=== PATIENT | female | born 1985 | race Caucasian/White ===

== ENCOUNTER 2022-02-18 12:05 | Outpatient (CLI) | payer OTHER, SELFPAY | END 2022-02-18 12:06 | disposition home or self-care (01) | PROVIDERS: Visit Provider Advanced Practice Midwife | DX: Z34.82 Encounter for supervision of other normal pregnancy, second trimester (principal); R35.0 Frequency of micturition; Z3A.24 24 weeks gestation of pregnancy | CPT/HCPCS: 80053; 80061; 87086 ==

== ENCOUNTER 2022-03-16 11:31 | Outpatient (CLI) | payer OTHER, SELFPAY ==
[2022-03-16 10:54] LABS: Glucose 1 Hour Gest 147 mg/dl (70-180)
[2022-03-16 18:36] LABS: TSH With Reflex to FT4* 0.957 uIU/mL (0.270-4.200)
[2022-03-17 17:29] LABS: Rapid Plasma Reagin (RPR) Non Reactive (Non Reactive)
== END 2022-03-16 11:32 | disposition home or self-care (01) ==
PROVIDERS: Advanced Practice Midwife; Visit Provider Advanced Practice Midwife
DX: Z34.90 Encounter for supervision of normal pregnancy, unspecified, unspecified trimester (principal); E03.9 Hypothyroidism, unspecified
CPT/HCPCS: 82950; 84443; 86592; 86850

== ENCOUNTER 2022-03-26 11:38 | Outpatient (CLI) | payer OTHER, SELFPAY ==
[2022-03-26 08:12] LABS: Glucose Fasting Check 91 mg/dl (60-115)
[2022-03-26 12:44] LABS: Glucose GTT-Gestational 3 Hr 121 mg/dl (70-140)
[2022-03-26 12:44] LABS: Glucose 1 Hour Gest 221 mg/dl (70-180)
== END 2022-03-26 11:39 | disposition home or self-care (01) ==
PROVIDERS: Visit Provider Advanced Practice Midwife
DX: Z34.90 Encounter for supervision of normal pregnancy, unspecified, unspecified trimester (principal)
CPT/HCPCS: 82951; 82952

== ENCOUNTER 2022-05-12 14:22 | Outpatient (CLI) | payer OTHER, SELFPAY ==
[2022-05-13 14:09] LABS: Strep B DNA Probe NEGATIVE (Negative)
== END 2022-05-12 14:23 | disposition home or self-care (01) ==
LOC: NFLDREF 14:23
PROVIDERS: Visit Provider Advanced Practice Midwife
DX: Z34.93 Encounter for supervision of normal pregnancy, unspecified, third trimester (principal); Z3A.36 36 weeks gestation of pregnancy
CPT/HCPCS: 76816; 76819; 87081; 87653

== ENCOUNTER 2022-05-25 15:21 | Outpatient (CLI) | payer OTHER, SELFPAY | END 2022-05-25 15:22 | disposition home or self-care (01) | PROVIDERS: Visit Provider Advanced Practice Midwife | DX: E03.9 Hypothyroidism, unspecified (principal) | CPT/HCPCS: 84443 ==

== ENCOUNTER 2022-06-02 16:00 | Inpatient (IN) | payer OTHER, SELFPAY ==
--- OUTSIDE RECORDS SUMMARY | 2022-06-02 16:04 | XMS_ITS | Encounter Summary ---
:1985 Author Organization [facility] Address [address] [place] [id number] Care Team Providers Name Role Phone Rashida Pederson APRN RESEARCH DIETITIAN Primary Care Provider [phone] Rashida Pederson APRN RESEARCH DIETITIAN Unavailable [phone] Paty Lewis [facility] Unavailable Reason for Visit Reason Comments Consult Encounter Details Date Type Department Care Team Description 05/02/2020 [facility] Mihaela Burns C NM [facility] [address] [address] [address] [place] [address] [facility] (Work) Marlow [phone] [place], [place] (Fax) [phone] Social History Tobacco Use Types Packs/Day Years Used Date Smoking Tobacco: Former Cigarettes 0.5 10 Quit : 07/19/2012 Smokeless Tobacco: Never Alcohol Use Standard Drinks/Week Comments Yes 0 (1 standard drink = 0.6 oz pure alcoho l) 1-4d 1x/wk Sex Assigned at Date Recorded Not on file documented as of this encounter Progress Notes Mihaela Burns CNM - 05/02/2020 8:30 AM CDT Assessment: 1. Six day old infant gaining weight rapidly on pumped breastmilk with some formula supplementation:Over birthweight 2. Difficulty with establishing and sustaining latch at breast, but was ultimately able to hold latch for a small milk transfer today. Normal suck 3. Mother with normal milk supply Plan: 1. Demonstrated how to present breast in the sandwich hold, compressing breast vertically and in line with baby's mouth, for baby to get a larger mouthful of breast and a deeper latch. IThere is sometimes a little pain when the baby first begins sucking, but after the first few seconds there should be no pain--only a tugging feeling. Bring baby closely into the breast, with his chin snugged closelyinto the 2. To continue to feed baby on cue, 8-12 times each day. Encouraged Logan to attempt atleast half of feedings. Feed on one side until baby finishes swallowing. Once swallowing slows, use breast compression to encourage more swallowing, but once there is no more active swallowing, and baby is either sleeping, coming off the breast, or just nibbling, it is OK to use a finger to take baby off the breast and move to the other breast. Do the same on the other side. Offer both breasts at each feeding. It is more important to watch the baby than the clock! 3. Demonstrated good positioning for deep latch, with baby held close to body and baby's head/shoulders/hips in good alignment. Encouraged use of pillow to help bring baby close to breasts, and stepstool to elevate mother's knees above hips. 4. Consider using the sidelying position for a restful way to latch Yves to the breast. Demonstrated today. 5. Yves needs about 21-22 oz of milk each day to grow well. If he nurses at home as he did in the office today, about 5 times/day, he needs about 18 oz per day in supplementation (about 2-3 oz/feeding), using your breastmilk as your first choice and formula when the supply of pumped milk runs out. You can give this after feedings, or distributed throughout the day according to his feeding cues. Usedpaced feeding when giving bottles. Given video link to demonstration of paced feeding. 6. Continue pumping as you have been to have extra milk to give to Yves and to keep a good milk supply. 7. See pediatric provider as planned today, and in 5 days. Subjective: Logan is here today because of latch concerns. Was given nipple shield in hospital, whichleonae doesn't particularly like. On day of return home from hospital, baby was very restless and did not pass urine for about 16 hours, so Logan began pumping and supplementing with formula. Would like totry nursing without nursing without shield now: has tried latching without it, has been successful once or twice at home, but baby does not sustain latch well without it. Baby can latch with the shield, but Logan feels that he doesn't transfer much milk when using it. Is now exclusively pumping, but would like to be directly . Relevant History: Prolonged pushing phase Breast Surgery: none Goals: Previous Experience: first baby Infant's name: Yves Neumann's bday: [birth year] Gestational age: 41w1d 's weight: 7# 15.3 oz Mode of delivery: vaginal 's MD: BALA Guy, [facility]. Logan gives her permission for today's note jonathan forwarded to Caio. NGOZI signed and filed in Logan's chart as Yves has no local active pediatric chart. Discharge weight: 7# 10.6 oz Frequency and duration of feedings: every 2 hours, currently by bottle Swallows audible per mother: yes, on rare occasion baby will latch Numbers of feedings in 24 hours: 10 Number urines per day: constantly Number of stools per day and their color: 2-4, mustardy Supplementation: with 2-3 oz with pumped milk or formula at each feeding Pumping: every 2-3 hours during the day, every 3-4 at night, yielding about 2 oz/session Objective/Physical exam: Mother: Noticed breasts grew larger and areolas darkened during and she noticed primary engorgement when her milk came in on about day 3-4. Her nipples are short shafted, the areola is compressible, the breast is soft and full. Sore nipples: no EPDS: not completed Assessment of infant: 54.69% Weight for age percentile Age today: 6 days Today's weight: 8# 0 oz Amount of milk transferred from LEFT side: none--did not attempt Amount of milk transferred from RIGHT side: 0.7 oz Baby has full flexion of arms and legs, normal tone, behavior is alert and active, respirations are normal, skin is normal, hydration is normal, jaw is normal size and alignment, palate is normal, frenulum is normal, baby can lateralize tongue, has adequate tongue lift, and tongue can protrude past bottom gum line. Baby thrush: none Jaundice: none Feeding assessment: Baby had difficulty latching to the breast. Made multiple attempts in cross cradle and football holds, and baby was not able to sustain latch more than one or two sucks. Mother alsohad difficulty with positioning. After multiple attempts, applied nipple shield, but baby was also not able to latch with nipple shield in place. Moved to sidelying position, and after several more attempts, infant did latch and maintain suck to transfer milk without use of shield. Alignment: The baby was flex relaxed. Baby's head was aligned with its trunk. Baby did face mother. Baby was in football, cross cradle and sidelying positions today. Areolar Grasp: Baby was able to open mouth wide after multiple attempts. Baby's lips were not pursed. Baby's lips did flange outward. Tongue was visible just barely over bottom lip. Baby had complete seal. Areolar Compression: Baby made rhythmic motion. There were no clicking or smacking sounds. There wasno severe nipple discomfort. Nipples appeared rounded after feeding. Audible swallowing: Baby made quiet sounds of swallowing: There was an increase in frequency after milk ejection reflex. The milk ejection reflex is normal and milk supply is normal. BP 102/76 (Patient Site: Left Arm, Patient Position: Sitting, Cuff Size: Adult Large) Pulse 72 LMP 07/13/2019 (Exact Date) Yes Current Outpatient Medications: ??? acetaminophen (TYLENOL) 325 MG tablet, Take 1-2 tablets (325-650 mg total) by mouth every 4 (four) hours as needed., Disp: , Rfl: 0 ??? ascorbic acid, vitamin C, (ASCORBIC ACID) 250 mg Chew, , Disp: , Rfl: ??? cholecalciferol, vitamin D3, (VITAMIN D3) 50 mcg (2,000 unit) capsule, Take 1,000 Units by mouth2 (two) times a day., Disp: , Rfl: ??? docusate sodium (COLACE) 100 MG capsule, Take 1 capsule (100 mg total) by mouth daily., Disp: , Rfl: 0 ??? enoxaparin ANTICOAGULANT (LOVENOX) 40 mg/0.4 mL syringe, Inject 0.4 mL (40 mg total) under the skin daily., Disp: 45 Syringe, Rfl: 0 ??? ibuprofen (ADVIL,MOTRIN) 200 MG tablet, Take 4 tablets (800 mg total) by mouth every 8 (eight) hours., Disp: , Rfl: ??? prenat.vits,ant,uck-pxmz-mnpxg ( VITAMIN) Tab, Take 2 tablets by mouth daily., Disp: , Rfl: Past Medical History: Diagnosis Date ??? Anxiety and depression ??? Pulmonary embolism (H) 07/12/2012 bilateral; on OCPs, smoker, and inactive with sitting flores for dying grandfather ??? Seizure (H) 2003 on Wellbutrin seizure x 1 ??? Varicella childhood Past Surgical History: Procedure Laterality Date ??? APPENDECTOMY Family History Problem Relation Age of Onset ??? Alcohol abuse Mother ??? Hypertension Father ??? Alcohol abuse Father ??? Hyperlipidemia Father ??? Arthritis Maternal Grandmother ??? Cancer Maternal Grandfather pancreatic ??? No Medical Problems Maternal Aunt ??? No Medical Problems Maternal Uncle ??? Alcohol abuse Paternal Aunt ??? Alcohol abuse Paternal Uncle TT 60 min >50% counseling and education Mihaela Burns APRN, CNM, IBCLC documented in this encounter Miscellaneous Notes Patient Instructions - HE - Mihaela Burns CNM - 05/02/2020 8:30 AM CDT 1. Present breast in the sandwich hold, compressing breast vertically and in line with baby's mouth, for baby to get a larger mouthful of breast and a deeper latch. IThere is sometimes a little pain when the baby first begins sucking, but after the first few seconds there should be no pain--only a tugging feeling. Bring baby closely into the breast, with his chin snugged closely into the 2. To continue to nurse baby on cue, 8-12 times each day. Feed on one side until baby finishes swallowing. Once swallowing slows, use breast compression to encourage more swallowing, but once there is no more active swallowing, and baby is either sleeping, coming off the breast, or just nibbling, itis OK to use a finger to take baby off the breast and move to the other breast. Do the same on the other side. Offer both breasts at each feeding. It is more important to watch the baby than the clock! 3. Use good positioning for deep latch, with baby held close to body and baby's head/shoulders/hips in good alignment. Use a pillow to help bring baby close to breasts, and stepstool to elevate mother's knees above hips. 4. Consider using the sidelying position for a restful way to latch Yves to the breast. 5. Yves needs about 21-22 oz of milk each day to grow well. If he nurses at home as he did in the office today, about 5 times/day, he needs about 18 oz per day in supplementation (about 2 oz), using your breastmilk as your first choice and formula when the supply of pumped milk runs out. You can givethis after feedings, or distributed throughout the day according to his feeding cues. Used paced feeding when giving bottles. 6. Continue pumping as you have been to have extra milk to give to Yves and to keep a good milk supply. 7. See pediatric provider as planned today, and in 5 days. For a good video showing sidelying : Https://www.youtube.com/watch?v=KJV4lbhLcaG For an excellent video on paced bottle feeding: http://www.lowmilTeamDynamixupply.gkz-lxufu-mypmjbs/ Good resources: www.Diarize Https://www.HauteLook.Gratafy/blog/ The Baby Book: Dr. Chakraborty and Shruti Wilder The Womanly Art of by [facility] For help with using baby carriers: Https://babywearingtwincities.org/ There is a really wonderful video that shows you how to establish a good milk supply and avoid nipple pain, by doing some practice at the end of and then using your hands after the baby comes. It shows you ways to get the baby latched on well and comfortably after --this is the main thing that helps to get a good milk supply established and avoid nipple pain. You can find it here: www.MetaMed.Gratafy. Click on expecting a term baby. I think you'll find it really helpful! The wholesite is great, actually, but start with that. I also love the video on attachment, under ABC's. Two times that are often great for pumping are either first thing in the morning when your breasts are most full (because many women find they are particularly full at this time), or pumping from one breast if your baby has nursed primarily on the other at that feeding. If you pump in the morning, youcould do it either right after feeding, because baby may not completely empty you, or between feedings--if, say, there is a feeding at 6 am and then baby goes back to sleep until like 9, you could pumpat 7 or 8. I also really like the technique of doing one breast: if there are times when your baby nurses on just one breast per feeding, pump one while nursing on the other. This works great for obtaining a good amount of milk, because we get a better letdown to our baby than we do to the pump. Or nurse, and then do the breast that baby left off with, because that one will often still be somewhat full, especially in the morning. As far as time, pump until the flow of milk slows significantly or almost stops. For most women thisis around 15 minutes or so (both breasts together, or 30 min, if you are doing them separately). Youcan increase the amount of milk you obtain by doing some breast massage while you pump, which is easier if you are either pumping the breasts separately or using some kinds of hands-free pumping set up (either a special bra that you buy, or just using a sports bra that you cut some slits in!). Finishing up by doing some hand expression also helps to increase the amount of milk you get. There is an excellent video on this technique here, made by Dominique Leigh MD, outside solar sales consultant and specialist: https://med.[facility]/newborns/professional-education//maximbrigidin v-bvbr-rgxrflygad.html You don't need to worry a lot about making sure there is still enough left in the breasts for the next feeding, because our breasts are always making milk--there is always something there. If your baby doesn't get as much as they would like at the next feeding, they'll just nurse again sooner; they won't go hungry! It can be a time-saver, though, to pump right after the feeding, because then you kind of attach the pumping to the feeding. Also, if at any point you are trying to pump to increase milk supply, this style of pumping is helpful for that: It kind of helps your body think that you are having longer feeding sessions and it steps up production accordingly. documented in this encounter Plan of Treatment Not on filedocumented as of this encounter Visit Diagnoses Diagnosis Other disorders of documented in this encounter Additional Health Concerns Assessment Noted Time PHQ-9 Depression Total Score: 7 07/27/2018 7:15 AM [employer] WORKER documented as of this encounter Care Teams Executive Team Leader Relationship Specialty Start Date End Date Rashida Pederson, PCP - General Nurse Practitioner 10/08/14 [employer]EARCH DI[employer]ITIAN [address] [place] [address] Rashida Pederson, Assigned PCP 10/14/14 [employer] MA[employer]EARCH DIETITIAN [address] [place] [address] Paty Lewis Assigned OBGYN Provider 02/28/21 12/13/21 ABDOUL Mcgee [address] [place] [id number] documented as of this encounter
--- OUTSIDE RECORDS SUMMARY | 2022-06-02 16:04 | XMS_ITS | Encounter Summary ---
:1985 Author Organization [facility] Address [address] [place] [id number] Care Team Providers Name Role Phone Rashida Pederson APRN BOAT REPAIRER Primary Care Provider [phone] Rashida Pederson APRN BOAT REPAIRER Unavailable [phone] Reason for Visit Reason Comments Post Exam Contraception IUD placement Encounter Details Date Type Department Care Team Description 06/11/2020 Office Visit - [facility] Paty Lewis follow-up; [facility] Screening for cervical cancer; Diamond [address] Encounter for intrauterine device placem ent; Akil Diamond [place], [place] BMI 40.0-44.9 , adult ([phone] IUD (intrauterine device) in place; Diamond Ernst [phone] General coun seling and advice on contraceptive management Center (Work) [place], [place] [phone] (Fax) [phone] Social History Tobacco Use Types Packs/Day Years Used Date Smoking Tobacco: Former Cigarettes 0.3 10 Quit : 07/19/2012 Smokeless Tobacco: Never Alcohol Use Standard Drinks/Week Comments Yes 2.5 (1 standard drink = 0.6 oz pure alco hol) 1-4d 1x/wk Sex Assigned at Date Recorded Not on file documented as of this encounter Last Filed Vital Signs Vital Sign Reading Time Taken Comments Blood Pressure 124/70 06/11/2020 10:48 AM CDT Pulse 86 06/11/2020 10:48 AM CDT Temperature - - Respiratory Rate - - Oxygen Saturation - - Inhaled Oxygen Concentration - - Weight 113.9 kg (251 lb) 06/11/2020 10:48 AM CDT Height 163.8 cm (5' 4.5) 06/11/2020 10:48 AM CDT Body Mass Index 42.42 06/11/2020 10:48 AM CDT documented in this encounter Progress Notes Paty Lewis, ABDOUL - 06/11/2020 10:40 AM CDT [email or web address]@Patient ID: Logan Sandoval is a 34 y.o. female. Assessment: Normal Exam at ~6 Weeks . Lactating /Breast Feeding No Evidence of Mood Disorder, EPDS: 3 Mirena IUD Contraceptive Counseling and Insertion Cervical Cancer Screening HX PE BMI 42 Plan: 1. Pap smear done at today's visit. Due for annual Director Of Architecture exam in 1 year. 2. Desired contraception: IUD. Reviewed PAINS warning signs and plan for IUD check in 4-6 weeks. No unprotected intercourse x 7 days. See IUD insertion procedure note below. 3. Discussed resumption of exercise and setting a goal to return to pre- weight in the next6-12 months. 4. Resumption of intercourse reviewed with possible changes in libido and vaginal lubrication while nursing. 5. Nutrition and supplements reviewed. Advised continuation of a PNV or MV, Vitamin D3 [id number] IUs, and an omega 3 fatty acid supplement daily. 6. Adjustment to parenting, self care, and open communication with her support system discussed. Warning signs and symptoms related to mood disorders reviewed. 7. Discontinue Lovenox now. Total time spent with patient: 40 minutes, >50% counseling, education and coordination of care. Subjective: Logan Sandoval is a 34 y.o. female who presents for visit. She is ~6 weeks following a NSVB. I have fully reviewed the and intrapartum course. The delivery was at term. Her baby boy is named Yves and weighed 7 lbs 15 oz at . She reported increased anxiety and stress during her labor especially during the night due to labor RN always being in the patients room andnot leaving patient alone to rest. Patient reports that she did not feel like she could get into theright mindset for labor with the nurse in the room but that it did improve during the day when she had a different nurse. Patient was also disappointed about unplanned interventions stating that, I di d not really feel like I delivered him myself. I had an idea in my head about how it was going to goand then it went differently She has talked to family members who have had children before and theyhave provided support. Patient states that she thinks her feelings about the labor and experience will change as more time passes. Pt has been taking Lovenox due to hx PE. Glad to be able to stop Lovenox now. course has been stable. Patient has had some difficulty with breast feeding and has seen Mihaela Burns CNM for consultations three times and is working with a craniosacral therapist to help improve infant's latch. Patient feels that has improved but is concerned that her milk supply has decreased. Discussed with her about pumping after feedings to increase supply and monitoring number of wet diapers that has in a 24 hour period and weight gain. She reports that has more than six white diapers per day. Baby's course has been stable. Baby is now Lochia ceased at 2 weeks . Bowel function is normal. Bladder function is normal. She has not resumed regular exercise. She has resumed intercourse x 1 with condom. No unprotected intercourse. Desired contraception: IUD. [place] depression screening score: 3. Review of Systems General: Denies problem Eyes: Denies problem Ears/Nose/Throat: Denies problem Cardiovascular: Denies problem Respiratory: Denies problem Gastrointestinal: Denies problem Genitourinary: Denies problem Musculoskeletal: Denies problem Skin: Denies problem Neurologic: Denies problem Psychiatric: Denies Problem Endocrine: Denies problem Objective: BP 124/70 (Patient Site: Right Arm, Patient Position: Sitting, Cuff Size: Adult Regular) Pulse 86 Ht 5' 4.5 (1.638 m) Wt (!) 251 lb (113.9 kg) LMP 07/13/2019 (Exact Date) Yes BMI 42.42 kg/m?? Physical Exam: General Appearance: Alert, cooperative, no distress, appears stated age Skin: Skin color, texture, turgor normal, no rashes or lesions Throat: Lips, mucosa, and tongue normal; teeth and gums normal HEENT: grossly normal; otoscopic and opthalmic exam not performed. Neck: Supple, symmetrical, trachea midline, no adenopathy; thyroid: not enlarged, symmetric, no tenderness/mass/nodules Lungs: Clear to auscultation bilaterally, no adventitious breath sounds. Breasts: No breast masses, tenderness, asymmetry, or nipple discharge. Heart: Regular rate and rhythm, S1 and S2 normal, no murmur, rub, or gallop Abdomen: Soft, non-tender. BS+ x 4. Diastasis: 2 FB. Bruising present across abdomen c/w self injections. Pelvic:External genitalia normal without lesions or irritation. Vagina and cervix show no lesions, inflammation, discharge or tenderness. 2nd degree perineal laceration well approximated and well healed. No cystocele, No rectocele. Uterus fully involuted. No adnexal mass or tenderness. Extremities: Extremities normal without varicosities or edema EPDS: 3/never to #10. Last Pap: 2014. Results were: normal IUD Insertion Procedure Note Pre-operative Diagnosis: IUD insertion Post-operative Diagnosis: same Indications: contraception Procedure Details Logan Sandoval was given an opportunity to ask questions about all forms of control, meaning all prescriptions, non-prescription, and natural methods. All of her questions were answered to her satisfaction and she understood all of those answers. The following benefits, risk/side effects, warning signs, discontinue use option, regarding the control method were explained to her before she voluntarily decided to use this method of control. IUD insertion performed by CNM only. BENEFITS: The IUD is 97-99% effective if all the directions regarding its use are followed carfeully. It can be more effective if used with foam or condoms mid-cycle between periods. IUDs containing progestin may decrease menstrual flow and painful menstrual periods. . RISKS/ SIDE EFFECTS 1. Spotting, bleeding, hemorrhage or anemia 2. Cramping or pain 3. Partial or complete expulsion of device leading to , the ending in miscarriage 4. Lost IUD string or other string problems 5. Puncturing of the uterus, embedding, or cervical perforation 6. Increased risk of pelvic inflammatory disease WARNING SIGNS: The patient was advised to call the clinic if she has any of the following early warning signs: P - Period late (), abnormal spotting or bleeding A - Abdominal pain, pain with intercourse I - Infection exposure (such as gonorrhea), abnormal discharge N - Not feeling well, fever, chills S - String missing, shorter or longer ALTERNATIVES: She received written information about other methods of control and she chose the IUD. She understands that she should check for the IUD strings several times during the first few months after insertion and then after each monthly period or before intercourse. DECISION TO DISCONTINUE USE: She understands that she may have the IUD removed at any time. She knows not try to remove the device and that it should be removed only by a medical provider. If she does not desire to become , she has been told she may request to have another IUD inserted or choose to use another method of control. If she wishes to become , she understands most women not using control become within 12 months. Urine test was not done. GC/CT cultures declined. The risks (including infection, bleeding, pain, and uterine perforation) and benefits of the procedure were explained to the patient and written and verbal informed consent was obtained. Verbal pre-procedural time out was completed with patient. Bimanual exam performed to determine midline position of uterus. Sterile speculum was placed. Cervixwas cleansed with Betadine and sterile technique was maintained throughout the procedure. The tenaculum was applied to the anterior lip of the cervix and gentle traction applied to straighten and stabilize. Uterus sounded to 8 cm. IUD inserted without difficulty. Strings visible and trimmed to 3 cm. Patient tolerated procedure well. Bleeding was minimal. IUD Information: Mirena Lot # [id number], Expiration date Condition: Stable Complications: None Patient was seen with student, ANTOINE Loza who was present for learning. I personally assessed, examined and made clinical decisions reflected in the documentation. Paty Lewis APRN, CNM documented in this encounter Miscellaneous Notes Patient Instructions - HE - Paty Lewis CNM - 06/11/2020 10:40 AM CDT INFORMATION AND RESOURCES: Congratulations on the of your baby. We have gathered together some information on staying healthy in the time including information on exercise, nutrition and mental health. We have also listed some local and national resources for support and mental health support. If you have questions or concerns and need to speak with a parts professional immediately, please call the on-call parts professional at [phone]. If you have a non-emergent question or would like to schedule a follow up appointment, please call the clinic parts professional at [phone]. Thank you for sharing your experience with the [facility]. Congratulations on the of your baby! EXERCISE & NUTRITION: Getting and Staying Active: A Healthy You! -Why should I exercise? Exercise, being physically active, is very important for all women. Being active can help you: Lose or maintain weight Have more energy Sleep better Enjoy sex more Relieve stress and think better Lower the chance you will have heart disease, high blood pressure, and diabetes Strengthen your bones and muscles Have fewer hot flashes if you are older -How active do I have to be to get the bene?ts of exercise? Studies show that as little as 15 minutes of moderate exercise--like fast walking or dancing--3 times a week can improve the health of your heart. Ifyou want to get the best benefits from exercise, try to increase your physical activity to atleast 30 minutes, 5 times a week. If you have a serious health problem,be sure to talk with your health care provider before starting an exercise program. Https://Physcient/ Http://www.Q1 Labs.PayMate [place]/ @PelvicGuluzma1 @DinahPelvicFloorMuscles @The.Vagina.Rafaelperer Taking Care of your Health: Health Care Maintenance Screening recommendations In all the things women do, taking care of everything and everybody else, they sometimes forget to take care of themselves. This handout reviews the health screenings and vaccines that are recommended for women of all ages. Talk with yourhealth care provider about which tests and vaccines you need. The chart below lists the screening tests and vaccinations recommended for healthy women who do not have a high risk for most diseases. The recommendations in thischart are guidelines only. For some tests and vaccines, the chart says you should talk to your health care provider.This is because the best recommendations for you depend onyour personal health history. Your health care provider may suggest more frequent testing or additional tests ifyou havea higher chance of getting some diseases Planning Your Family: Developing a Reproductive Life Plan Planning ahead can help you avoid getting when you don???t want to be and also be in good health if and when you do decide to become . Many women have at least one in their lives, even if it was not planned. In fact, about half of all pregnancies are not planned. Getting when you did not plan it can be a problem, or it can turn into a happy event. Planningpregnancy leads to healthier pregnancies, healthier mothers, and healthier families. Although many women want to have a family, not everyone wants to have children. More and more women are childless by choice (also known as childfree). Whether to have children is a personal choice thatonly you can make. It???s okay not to want children! If you never want to get , it is important to make sure you always use very effective control, such as an intrauterine device, the control implant, female sterilization (having your tubes tied), or your partner having a vasectomy. Reliable resources: ? [place] [employer] (ACNM) http://www.parts professional.org/; look at the informational handouts at http://www.parts professional.org/Qosyj-Jwrt-Hunmt ?? Women's Health.gov: http://www.womenshealth.gov/a-z-topics/index.html FDA - Nutrition ?www.mypyramid.gov? Under For Consumers, click on and women. ? Vaccines : Centers for Disease Control and Prevention (CDC) http://www.cdc.gov/vaccines/ ? [facility] www.[facility].com ? When researching information on the web, question the validity of websites.? The domains .gov, .dondeEsta™ and.org tend to be more reliable information.? If there are a lot of advertisements, be cautious of the information provided. Stay away from blogs and chat rooms please! ? ? Nutrition and supplements: Daily multivitamin vitamin (with 400 - 1000 mcg folic acid).? Take with food as needed. ? 4-5 servings of dairy or other calcium rich foods (fish, leafy greens, soy)?per day - if not, take 500-1000 mg additional calcium (Tums, pills, chews). Take with dairy. ? Vitamin D3 4000 IU geltab daily. Vitamin D rich foods: Cod Liver Oil (1Tbsp), [place], Mackerel, Tuna, fortified milk and yogurt, Beef and liver, sardines, egg, fortified cereals, guamanian cheese.? Take supplements with fattiest meal.? ? 2-3 (4) oz servings of fish, seafood, nuts (walnuts & almonds), oils, avocado per week - if not,take Coden 3 Fatty acids: DHA & SAV 1377-2791 mg per day. ?Other names: cod liver oil, fish oil.Take with fattiest meal. ? ? & RESOURCES : Virtual Support: During this time of isolation, families need even more community! Here are some area organizations offering virtual support groups for : ??? Lat Cafe Support Group, Tuesdays at 10:30 am Run by LIZ Rubin of [employer] Go to [employer] Facebook page and click on events for link https://www.ACAL Energy.com/events/[email or web address]/ ??? [facility] Milk Hour, at 2:30 pm Run by LIZ Mosley Go to [facility] FB page and send message to get link https://www.[employer].PayMate [place]/AmpIdea/ ??? [facility]/[place] holding virtual meetings the first Wednesday of each month, 8-9 pm, and the Third Wednesday, 10 - 11 am. Go to [facility] and [facility] FB page; message to get link https://www.[employer]AL Energy.PayMate [place]/LLLofGoldAmanuel/?hc_location=[facility] ??? [facility] offers a Lounge every Wednesday 12pm - 1pm, run by Yessenia Fernandes [facility] Leader Sign up via link at ClassDojo/cbe- https://www.ClassDojo/cbe- ??? [facility] is offering virtual support groups every Wednesday, 10:30 am - 12 pm, run bynurse HILL Https://www.[employer]AL [employer].PayMate [place]/events/[email or web address]/ Classes: ??? [facility] is offering virtual and care classes: https://www.ClassDojo/education-workshops ??? BirthEd childbirth and education offering virtual classes https://www.HItviews.com/workshops : OUTPATIENT RESOURCES -Schedule an appointment with a [facility] ABDOUL who is also a Special Officer Automat by calling [phone]. Temitope Larkin IBROBERTO, CNM at [facility] on Wednesday, Mihaela Burns CNM at [facility] on Tuesdays and [facility] on . [facility] located at [place]???[facility] Call: [phone]. ??? Inpatient support ??? Outpatient appointments ??? Telephone consultation ??? Breast-feeding classes available through Room[employer] [facility] health improvement [facility]: Baby Caf?? and interested in ? Need answers to questions? Want to help moms? Already and want to meet other moms? Join us at the Baby Caf??! Baby Cafe is a free, drop-in service offering breast-feeding support for women, breast-feeding mothers and their families. Come share tips and socialize with other mothers. Babies and siblingsare welcome (no childcare available). Starting November 2017, Baby Caf?? will be at 4 locations. Please see below for the Baby Caf?? closest to you! [facility] [address] [place] [address] Wednesday: 10am-12pm [facility] [address] [place] [address] Wednesday 4-6pm [facility] [address] [place] [address] Wednesday 10am-12:30pm ong [employer] [address] [place] [address] Wednesdays: 4-6pm Hmong, Emirati, and Polish which is may be available at some sites. For more information, please contact: [email or web address] [email or web address]. or [phone] -[facility]: www.[facility] region[facility].PayMate [place] -Attend a baby weigh in at [facility]. consultants are available to answer questions [place]: Tuesdays 1:00 - 2:00 [facility]: Mondays 1:00 - 2:00 -Attend a New Mamma group or a Second Time Mama group at [facility]. -Enlightened Mama: www.ProcureSafeenedAdTotumme.com -Attend one of the New Mama groups at [facility] in [facility]. [facility] also offers one-on-one in home and in office consults. -[place]: www.acosta.org/ -Attend a Mayurihe League meeting. Multiple groups in several locations throughout the [facility]. The meetings are no-cost and always informative education session through [employer] Belem Oconnor Held at [facility] the of each month at 7pm - Information on medication use while : http://toxnet.nlm.nih.gov/newtoxnet/lactmed.htm Other Online Resources: ??? healtheast.org/baby sign up for free online weekly e-mail ??? healtheast.org/maternity ??? Breastfeedingmadesimple.com ??? Llli.org (Belem [place]ano Baileyeverett) ??? Normalfed.com ??? Womenshealth.gov/ ??? Le[employer].PayMate [place] ??? Nimblefish Technologies.PayMate [place] ??? https://TapFwd/abcs/ Click on Learn More About Attachment -New Parent Connection Drop-In: In collaboration with [facility], [employer] (ECFE), a program of [address], offers ongoing classes for new parents in their infants. The connection classes offer support and resources to parents during the exciting and challenging period of transition following the of her baby. Parents and babies ( to 6 months of age) mayjoin the group at any time. Baby's to 3 months meet Tuesdays, from 1230 to 1:30 PM Babies 3-6 months meet Tuesdays, from 4 to 5 PM -[facility] New Mama Group: www.ClassDojo/txhe-xrd-yjxd-group -Attend Work4s eZono New Mama. Groups located at three locations: [place], [place] and [place]. Sign up online. Additional Resources:? -[employer] (ACNM) http://www.parts professional.org/; look at the informational handouts at http://www.parts professional.org/Qmhvl-Afkw-Sqpkl www.mymidwife.org ? -Women's Health.gov: http://www.womenshealth.gov/a-z-topics/index.html ? -Range Manager and Family Education (ECFE): ECFE offers parents hands-on learning experiences that will nourish a lifetime of teachable moments. http://ecfe.info/ecfe-home/ (Before, during and after ) MOOD DISORDER RESOURCES : ??? Are you feeling sad or depressed? Do you feel more irritable or angry with those around you? Are you having difficulty bonding with your baby? Do you feel anxious or panicky? Are you having problems with eating or sleeping? Are you having upsetting thoughts that you can???t get out of your mind? Do you feel as if you are ???out of control?? or ???going crazy? Do you feel like you never should have become a mother? Are you worried that you might hurt your baby or yourself? Any of these symptoms, and many more, could indicate that you have a form of mood or anxiety disorder, such as depression. While many women experience some mild mood changes duringor after the of a child, 15 to 20% of women experience more significant symptoms of depressionor anxiety. Please know that with informed care you can prevent a worsening of these symptoms and can fully recover. There is no reason to continue to suffer. Women of every culture, age, income level and race can develop mood and anxiety disorders.Symptoms can appear any time during and the first 12 months after childbirth. There are effective and well-researched treatment options to help you recover. Although the term ??? dep ression?? is most often used, there are actually several forms of illness that women may experience. Resources: - and Support [place]: www.[facility].org Who We Are: We are a group of mental health & practitioners, service organizations, and mother volunteers who provides services to those struggling with a , loss, or mood disorder through the Helpline, professional training, our resource list and website. What We Do: We provide support, advocacy, awareness, and training about mental health in [place]. Community Resource List: This is a list of resources within our community. http://[facility].org/communityresourcelist PSYCHOTHERAPISTS/CONSULTANTS This is a list of licensed mental health professionals who have advanced clinical skills in the treatment of mood and anxiety disorders (PMADs). Http://[facility].org/mentalhealthproviderresourcelist INTEGRATIVE MEDICINE PRACTITIONERS: This is a list of licensed providers who practice Integrative Medicine: a form of treatment that combines alternative medicine with evidence based medicine in an effort to treat the ???whole person?? (the person, not just the disease). http://[facility].org/integrativemedicineproviders PSYCHIATRIC CARE This is a list of licensed Psychiatrists who have advanced clinical skills in the treatment and medication management for PMADs and lactating mothers. Http://[facility].org/psychiatryproviderresroucelist Click on the links below to find detailed profiles and contact information of providers who have been screened and approved as having advanced training in the area of PMADs. Please note: [facility] does not endorse a specific provider. The list is in alphabetical order by city. You can also search for providers by [facility] or [facility] using the search box. Please click on the Show box to the upper right to advance to the next page. Youmay also call our Helpline at [phone] if you would like for our Helpline volunteer to find a provider for you. - Depression Support Group: Weekly groups at no cost through [facility], Tuesdays, 1:30-3:00 p.m., at [facility], [address] [facility], [address]. [place], Wednesdays, 1:30-3:00 p.m., at [facility], [address] To register for the group or get more information, call [phone]. - Depression Support Group: Outpatient Intensive Treatment program for women with mood disorders [facility] Mother/Baby Program -[facility] Resource Guide Women???s Mental Health at [facility] This website provides a range of current information including discussion of new research findings in women???s mental health and how such investigations inform day-to-day clinical practice. Despite the growing number of studies being conducted in women???s health, the clinical implications of such work are frequently controversial, leaving patients with questions regarding the most appropriate path to follow. Providing these resources to patients and their doctors so that individual clinical decisions can be made in a thoughtful and collaborative fashion dovetails with the mission of our Center. https://womensmentalhealth.org/ If you???re having thoughts of harming yourself or your baby, it is vital to get support immediately. Call 911 or go to the nearest [facility] Immediate Emergency: 911 National Suicide Prevention Lifeline: Suicide Prevention Hotline: 1-728-OGFPJWR National Depression Hotline: 6-827-WIT-MOMS Support International (PSI) PPD Helpline: (not a 24-hour hotline) documented in this encounter Plan of Treatment Not on filedocumented as of this encounter Procedures Procedure Name Priority Date/Time Associated Comments Diagnosis GYNECOLOGIC CYTOLOGY Routine 06/11/2020 2:33 PM R esults for this CDT procedure are i n the results section. HPV HIGH RISK TYPES Routine 06/11/2020 2:33 PM Re sults for this DNA CERVICAL CDT procedure are i n the results section. documented in this encounter Results Gynecologic Cytology (PAP Smear) (06/11/2020 2:33 PM CDT) Component Value Ref Range Test Analysis Performed Pathologis t Method Time At Signature Case Report Gynecologic Cytology Report ? Case: [id number] ? Authorizing Provider: ??Paty Edmondson, ? Collected: ? 06/11/2020 1433 ? 0 2:53 PM ? ZIYAD,ABDOUL ? TRIAGE NURSE Ordering Location: ? [facility] ?? Received: ?06/11/2020 1433 ? [facility] ? First Screen: ? Davida Glass CT ? (ASCP) ? Specimen: ?SUREPATH PAP, SCREENING, Endocervical/cervical ? Interpretation Negative for squamous intraepithelial le deb or malignancy Negative for at ??2:53 PM squamous 0 2:53 PM intraepithelial TRIAGE NURSE lesion or malignancy. Result Flag Normal Normal 0 2:53 PM TRIAGE NURSE Specimen Satisfactory for Adequacy evaluation, 0 2:53 PM endocervical/tra TRIAGE NURSE nsformation zone component present Reflex Testing Yes regardless of result 0 2:53 PM TRIAGE NURSE High Risk? No 0 2:53 PM TRIAGE NURSE LMP/Menopause Date 0 2:53 PM TRIAGE NURSE Abnormal No Bleeding 0 2:53 PM TRIAGE NURSE Patient Status 0 2:53 PM TRIAGE NURSE None Control/Hormone 0 2:53 PM s TRIAGE NURSE Previous Normal 2015 0 2:53 PM TRIAGE NURSE Previous no Abnormal? 0 2:53 PM TRIAGE NURSE Cervical normal, parous Appearance 0 2:53 PM TRIAGE NURSE Specimen Anatomical Collection Method Collection Time Receive d Time (Source) Location / / Volume Laterality Specimen from CERVIX UTERI 06/11/2020 2:33 PM 06/12/20 20 8:28 genital system STRUCTURE / CDT AM CDT (specimen) Unknown Narrative This result has an attachment that is no t available. Paty Lewis [facility] HPV High Risk Types DNA Cervical (06/11/2020 2:33 PM CDT) Analysis Performed At Patho logist Time Signature HPV Source [facility] 06/12/2020 1:02 PM CDT HPV16 DNA Negative NEG 06/12/2020 1:02 PM CDT HPV18 DNA Negative NEG 06/12/2020 1:02 PM CDT Other HR HPV Negative NEG 06/12/2020 1:02 PM CDT FINAL SEE NOTES 06/12/2020 DIAGNOSIS 1:02 PM CDT Comment: This patient's sample is negative for HP V DNA. This test was developed and its performa nce characteristics determined by the [facility], [facility]. It has not been cleared or approved by the FDA. The laboratory is regulated under CLIA as qualified to perform high-comple xity testing. This test is used for clinical purposes. It should not be rega rded as investigational or for research. (Note) METHODOLOGY: ??The Shay gwendolyn 4800 syst em uses automated extraction, simultaneous amplification of HPV (L1 re gion) and beta-globin, followed by ??real time detection of flu orescent labeled HPV and beta globin using specific oligonucleotide pr obes . The test specifically identifies types HPV 16 DNA and HPV 18 D NA while concurrently detecting the rest of the high risk type s (31, 33, 35, 39, 45, 51, 52, 56, 58, 59, 66 or 68). COMMENTS: ??This test is not intended fo r use as a screening device for women under age 30 with normal cervi ant cytology. ??Results should be correlated with cytologic and histolo gic findings. Close clinical followup is recommended. Specimen Description Cervical Cells 06/12/2020 1:0 2 PM CDT Comment: Performed and/or entered by: [address] [id number] Specimen Anatomical Collection Method Collection Time Receive d Time (Source) Location / / Volume Laterality Specimen from 06/11/2020 2:33 PM 06/12/20 5:25 genital system CDT PM CDT (specimen) Paty Lewis CNM LAB - BLOOD ORDERABLES documented in this encounter Visit Diagnoses Diagnosis Routine follow-up Screening for cervical cancer Screening for malignant neoplasm of the cervix Encounter for intrauterine device placem ent Encounter for insertion of intrauterine contraceptive device BMI 40.0-44.9, adult (H) Body Mass Index 40.0-44.9, adult IUD (intrauterine device) in place Presence of intrauterine contraceptive d evice General counseling and advice on contrac eptive management Other general counseling and advice for contraceptive management documented in this encounter Additional Health Concerns Assessment Noted Time PHQ-9 Depression Total Score: 7 07/27/2018 7:15 AM TRIAGE NURSE documented as of this encounter Care Teams Billing Department Supervisor Relationship Specialty Start Date End Date Rashida Pederson APRN BOAT REPAIRER PCP - General Nurse Practitioner 10/08/14 [address] [place] [address] Rashida Pederson APRN BOAT REPAIRER Assigned PCP 10/14/14 07/26/21 [address] [place], [place] [id number] documented as of this encounter
--- OUTSIDE RECORDS SUMMARY | 2022-06-02 16:04 | XMS_ITS | Encounter Summary ---
:1985 Author Organization [place] Address [address] [place] [address] Care Team Providers Name Role Phone Rashida Pederson APRN MILK RECEIVER Primary Care Provider [phone] Rashida Pederson APRN MILK RECEIVER Unavailable [phone] Paty Lewis [facility] Unavailable [phone] Encounter Details Date Type Department Care Team Description 05/28/2020 [facility] Rashida Pederson [place] ZIYAD MILK RECEIVER [phone] [place] [address] (Wo rk) Social History Tobacco Use Types Packs/Day Years Used Date Smoking Tobacco: Former Cigarettes 0.5 10 Quit : 07/19/2012 Smokeless Tobacco: Never Alcohol Use Standard Drinks/Week Comments Yes 0 (1 standard drink = 0.6 oz pure alcoho l) 1-4d 1x/wk Sex Assigned at Date Recorded Not on file documented as of this encounter Plan of Treatment Not on filedocumented as of this encounter Visit Diagnoses Not on filedocumented in this encounter Additional Health Concerns Assessment Noted Time PHQ-9 Depression Total Score: 7 07/27/2018 7:15 AM SCREED PERSON documented as of this encounter Care Teams Sanitation Worker Cleaning Machinery Relationship Specialty Start Date End Date Rashida Pederson, PCP - General Nurse Practitioner 10/08/14 STRIKE OPERATIONS OFFICER MILK RECEIVER [address] [place] [address] Rashida Pederson, Assigned PCP 10/14/14 STRIKE OPERATIONS OFFICER MILK RECEIVER [address] [place] [address] Paty Lewis Assigned OBGYN Provider 02/28/21 12/13/21 ABDOUL [address]gee [address] [address] documented as of this encounter
--- OUTSIDE RECORDS SUMMARY | 2022-06-02 16:04 | XMS_ITS | Encounter Summary ---
:1985 [facility] Address [address] [place] [address] Home Phone Mobile Phone Email Address Email Address Preferred Language Estonian Marital Status Single Latter Day Affiliation Unknown Race White Ethnic Group Unknown Author Organization [place] Address [address] [place] [address] Care Team Providers Name Role Phone Rashida Pederson APRN SLOT ATTENDANT Primary Care Provider [phone] Rashida Pederson APRN SLOT ATTENDANT Unavailable [phone] Paty Lewis [facility] Unavailable [phone] Reason for Visit Reason Comments Consult Encounter Details Date Type Department Care Team Description 05/23/2020 Ambulatory - [facility] Mihaela Burns C NM Other disorders of ; [address] D R nipple pain [place] [address] [address] [facility] (Work) [place] [phone] [place], [place] (Fax) [phone] Social History Tobacco Use Types Packs/Day Years Used Date Smoking Tobacco: Former Cigarettes 0.5 10 Quit : 07/19/2012 Smokeless Tobacco: Never Alcohol Use Standard Drinks/Week Comments Yes 0 (1 standard drink = 0.6 oz pure alcoho l) 1-4d 1x/wk Sex Assigned at Date Recorded Not on file documented as of this encounter Progress Notes Mihaela Burns CNM - 05/23/2020 10:30 AM CDT Assessment: 1. Almost 4 week old on with supplementation, with excellent weight gain over last 2 weeks: 1.6 oz/day 3. Greatly improved ability to latch and suckle at breast this visit, and significantly improved milk transfer. Still has tendency to shallow latch, with incomplete tongue extension, recessed chin and high body tension in general 4. Ashley Assessment of Lingual Frenulum remains within normal limits: Score of 6/25, with > 13 indicating need for intervention 5. Mother now with normal milk supply Plan: 1. Given praise and encouragement for hard work and significant improvements! Reviewed that Yves needs about 25 oz of milk each day to grow well. If he nurses at home as he did in the office today, about 10 times/day, he now needs just about 10 oz per day in supplementation (or about an extra ounce with each feeding), using your breastmilk as your first choice and formula if the supply of pumped milk runs out. You can give this after feedings, or distributed throughout the day according to his feeding cues. 2. Discussed can base pumping on how Yves is eating at the breast: If he nurses well, then you can decrease your pumping accordingly. If he is not nursing well, then pump after that feeding. 3. Consider continuing with bodywork if Yves is tense and continuing to have difficulty with latch.Reassured that improvements in latch and ability to transfer milk can continue as baby grows and becomes more proficient with coordination and muscle use. Acknowledged continued difficulty of pumping/aparicio pplementing/nursing. Logan voices that she is feeling good about continuing as long as progress is being made. 4. Discussion of tongue tie: Reviewed Ashley tool in detail and explained findings. Explained Yves's result: 02/07. Explained that there is very little solid evidence regarding treatment of tongue tie, beyond that which shows that nipple pain can be relieved by frenotomy in cases of classic anterior tongue tie. Evidence is lacking on whether frenotomy or other treatments, such as assistance, bodywork or other therapies, or simply passage of time, are most helpful, and that there is also minimal to no evidence on issues like which type of release is best, and whether or not aftercare is important or helpful. Advised to consult with pediatric provider; today's note with findings will be sent to provider. 5. follow-up as needed. Subjective: Logan is here today for a third visit. She and baby Yves are being followed for latch concerns. In previous visits Yves has had significant difficulty latching to breast, with shallow latch, ineffective suck and low milk transfer. He has done best in the sidelying position, and a plan was made for supplementation with pumped milk and/or formula. Today Logan reports that she brought Yves to see a craniosacral therapist, and his lips are much more flexible. She has also increased her pumping, and feels that her milk supply has increased. She does still have painful latch, however, and has made an appointment with pediatric dentist to be evaluated for posterior tongue tie. She limits her direct nursing to about 3-4 times/day because of painful latch--feels that Yves continuesto latch shallowly. Relevant History: Prolonged pushing phase Breast Surgery: none Goals: exclusive direct Previous Experience: first baby Infant's name: Yves Infant's bday: [birth year] Gestational age: 41w1d 's weight: 7# 15.3 oz Mode of delivery: vaginal 's MD: BALA Guy, [facility]. Logan gives her permission for today's note jonathan forwarded to Mr. Kearney. NGOZI signed and filed in Logan's chart as Yves has no local active pediatric chart. Discharge weight: 7# 10.6 oz Last weight on this scale on 05/07/20: 8# 1.8 oz Frequency and duration of feedings: every 1 1/2 - 3 hours, both sides, Directly at breast 3-4 times/day Swallows audible per mother: yes Numbers of feedings in 24 hours: 10-12 Number urines per day: 8-10 Number of stools per day and their color: every 1-2 days Supplementation: after most feedings (about 9 times/day) with 2-3 oz with pumped milk; about one bottle/day or formula Pumpin-10 times daily, yielding about 4 oz/session, sometimes up to 6 oz. Objective/Physical exam: Mother: Noticed breasts grew larger and areolas darkened during and she noticed primary engorgement when her milk came in on about day 3-4. Her nipples are short shafted, the areola is compressible, the breast is soft and full. Sore nipples: yes, tender, but intact without cracking EPDS: not completed today Assessment of : 55.29% Weight for age percentile Age today:4 weeks tomorrow Today's weight: 9# 12 oz Amount of milk transferred from LEFT side: 0.8 oz Amount of milk transferred from RIGHT side: 0.8 oz Baby has full flexion of arms and legs, behavior is alert and active, respirations are normal, skin is normal, hydration is normal, jaw is normal size and alignment, palate is normal, frenulum is normal, baby can lateralize tongue, has adequate tongue lift, and tongue can protrude just slightly past bottom gum line. Tongue is held in somewhat bunched position and does not extend well, but there is norestrictive frenulum seen. Noted baby to have a significantly recessed chin and also notable body tension: Holds body in slightly arched position. Repeated Ashley Lingual Frenulum Protocol Assessment today: History Score 3/8 Anatomo-Functional Evaluation 0/12, indicating no interference of the frenulum with tongue movements Suck Evaluation 3/5 Total Score 6/25, indicating no interference of the lingual frenulum with tongue movements: Release of the frenulum is not indicated by this assessment Baby thrush: none Jaundice: none Feeding assessment: Baby was able to latch to the breast without difficulty today, using cradle hold. He did come on and off the breast frequently, but there was significant improvement in maintenance of latch over previous visits. Alignment: The baby was flex relaxed. Baby's head was aligned with its trunk. Baby did face mother. Baby was in cradle position today. Areolar Grasp: Baby was able to open mouth wide after several attempts. Baby's lips were not pursed.Baby's lips did flange outward. Tongue was not easily visible over bottom lip. Baby had complete seal. Areolar Compression: Baby made rhythmic motion. There were no clicking or smacking sounds. There wassome mild nipple discomfort (2-3/10). Nipples appeared rounded after feeding. Audible swallowing: Baby made quiet sounds of swallowing: There was an increase in frequency after milk ejection reflex. The milk ejection reflex is normal and milk supply is now normal. BP 112/68 (Patient Site: Right Arm, Patient Position: Sitting, Cuff Size: Adult Regular) Pulse 78 Resp 18 LMP 07/13/2019 (Exact Date) Current Outpatient Medications: ??? acetaminophen (TYLENOL) 325 [...] times a day., Disp: , Rfl: ??? enoxaparin ANTICOAGULANT (LOVENOX) 40 mg/0.4 mL syringe, Inject 0.4 mL (40 mg total) under the skin daily., Disp: 45 Syringe, Rfl: 0 ??? ibuprofen (ADVIL,MOTRIN) 200 MG tablet, Take 4 tablets (800 mg total) by mouth every 8 (eight) hours., Disp: , Rfl: ??? docusate sodium (COLACE) 100 MG capsule, Take 1 capsule (100 mg total) by mouth daily., Disp: , Rfl: 0 ??? prenat.vits,ant,rvc-oxow-fzauv ( VITAMIN) Tab, Take 2 tablets by [...] >50% counseling and education Mihaela Burns APRN, SAMUELM, IBCLC documented in this encounter Miscellaneous Notes Patient Instructions - HE - Mihaela Burns CNM - 05/23/2020 10:30 AM CDT Weight today before nursin# 12 oz Weight today after nursin# 13.6 oz 1. Yves needs about 25 oz of milk each day to grow well. If he nurses at home as he did in the office today, about 10 times/day, he needs about 10 oz per day in supplementation (or about an extra ounce with each feeding), using your breastmilk as your first choice and formula if the supply of pumped milk runs out. You can give this after feedings, or distributed throughout the day according to his feeding cues. 2. You can base your pumping on how Yves is eating at the breast: If he nurses well, then you can decrease your pumping accordingly. If he is not nursing well, then pump after that feeding. 3. Consider continuing with bodywork if Yves is tense and continuing to have difficulty with latch. 4. Discussion of tongue tie: Reviewed Ashley tool in detail and explained findings. Explained Yves's result: 02/07. Know that there is very little solid evidence regarding treatment of tongue tie, beyond that which shows that nipple pain can be relieved by frenotomy in cases of classic anterior tongue tie. Evidence is lacking on whether frenotomy or other treatments, such as assistance,bodywork or other therapies, or simply passage of time, are most helpful, and that there is also minimal to no evidence on issues like which type of release is best, and whether or not aftercare is important or helpful. Consult with your pediatric provider; today's note with findings will be sent to provider. 5. follow-up as needed. documented in this encounter Plan of Treatment Not on filedocumented as of this encounter Visit Diagnoses Diagnosis Other disorders of nipple pain Other and unspecified disorder of breast associated with childbirth, condition or complication documented in this encounter Additional Health Concerns Assessment Noted Time PHQ-9 Depression Total Score: 7 07/27/2018 7:15 AM FOLDER MACHINE documented as of this encounter Care Teams Human Relations Professor Relationship Specialty Start Date End Date Rashida Pederson, PCP - General Nurse Practitioner 2/23/15 TEST CELL TECHNICIAN SLOT ATTENDANT [address] [place] [address] Rashida Pederson, Assigned PCP 10/14/14 TEST CELL TECHNICIAN SLOT ATTENDANT [address] [place] [address] Paty Lewis Assigned OBGYN Provider 02/28/21 12/13/21 ABDOUL Mcgee [address] [address] documented as of this encounter
--- OUTSIDE RECORDS SUMMARY | 2022-06-02 16:04 | XMS_ITS | Encounter Summary ---
:1985 Author Organization [place] Address [address] [place] [address] Care Team Providers Name Role Phone Rashida Pederson APRN SURFACER OPERATOR Primary Care Provider [phone] Rashida Pederson APRN SURFACER OPERATOR Unavailable [phone] Reason for Visit Reason Comments Care Delivered 04/26/2020 Encounter Details Date Type Department Care Team Description 05/13/2020 Office Visit - [facility] [place] [address] [facility] [address] [facility] [address] [place] [phone] [place], [place] (Work) [address] Social History Tobacco Use Types Packs/Day [...] Sign Reading Time Taken Comments Blood Pressure 106/70 05/13/2020 10:58 AM CDT Pulse 102 05/13/2020 10:58 AM CDT Temperature - - Respiratory Rate - - Oxygen Saturation 96% 05/13/2020 10:58 AM CDT Inhaled Oxygen Concentration - - Weight 114.8 kg (253 lb) 05/13/2020 10:58 AM CDT Height 163.8 cm (5' 4.5) 05/13/2020 10:58 AM CDT Body Mass Index 42.76 05/13/2020 10:58 AM CDT documented in this encounter Progress Notes Temitope Larkin CNM - 05/13/2020 11:00 AM CDT Assessment: Logan Sandoval is a 34 y.o. female here for follow up at 2 weeks . Hx of pulmonary embolism- remains on daily Lovenox until 6 weeks PP Contraceptive counseling Due for cervical cancer screening Plan: 1. IUD consult done. Considering Kyleena or Mirena. Aware she should abstain from unprotected intercourse for 2 weeks prior to appointment. 2. Continue with daily Lovenox until 6 weeks . Encouraged to call on- call CNM with any signs or symptoms of a blood clot. 3. Continue with outpatient as necessary. 4. PP mood changes discussed in detail. Reviewed PMADs including anxiety, depression and OCD. Made aware with her history of anxiety she is at increased risk for a mood or anxiety disorder. Enc to contact CNM with concerns. Recommended [facility] Prasad group (as [employer] [place] employee it is free). 5. Follow-up at 6 weeks for routine visit or sooner as needed. Plan Mirena or Kyleena IUDinsert and pap with HPV at next visit. TT with patient 20 minutes with all of which in counseling or coordination of care. Temitope Larkin, ZIYAD, CNM, IBCLC Subjective: Logan Sandoval is a 34 y.o. female who presents for a follow up visit. She is 2 weeks following a spontaneous vaginal delivery. I have fully reviewed the and intrapartumcourse. The delivery was at 41w1d gestation. Outcome: spontaneous vaginal delivery. The amount and color of the lochia is appropriate for the duration of recovery. The patient feels well. Voiding without difficulty, lochia normal, tolerating normal diet, and passing flatus. Pain is well controlled with current medications. The baby is well and being fed by breast. She is receiving help from an Mihaela Oswood, IBCLC for a painful latch. They are having a craniosacral therapist come to their home today for additional support. The patient has no emotional concerns though admits things are hard right now as her is out of town for 1 week at a training. She does have family and friends scheduled to provide support whilehe is gone. depression screening score: 4, 0 to #10. Baby admits to a history of anxiety and depression. She has been treated with Lexapro in the past, but not for many years. She states sheis well aware of the but at this time she is coping well.symptoms Plans IUD for contraception. She has used the Mirena IUD in the past without complication. The following portions of the patient's history were reviewed and updated as appropriate: allergies,current medications and problem list Review of Systems General: Denies problem Eyes: Denies problem Ears/Nose/Throat: Denies problem Cardiovascular: Denies problem Respiratory: Denies problem Gastrointestinal: Denies problem, Genitourinary: Denies problem Musculoskeletal: Denies problem Skin: Denies problem Neurologic: Denies problem Psychiatric: Denies problem Endocrine: Denies problem Heme/Lymphatic: Denies problem Allergic/Immunologic: Denies problem Objective: Vitals: 05/13/20 1058 BP: 106/70 Pulse: (!) 102 SpO2: 96% Weight: (!) 253 lb (114.8 kg) Height: 5' 4.5 (1.638 m) Physical Exam: No exam performed today documented in this encounter Miscellaneous Notes Patient Instructions - HE - Temitope Larkin CNM - 05/13/2020 11:00 AM CDT INFORMATION AND RESOURCES: Congratulations on the of your baby. We have gathered together some information on staying healthy in the time including information on exercise, nutrition and mental health. We have also listed some local and national resources for support and mental health support. If you have questions or concerns and need to speak with a nurse midwife immediately, please call the on-call nurse midwife at [phone]. If you have a non-emergent question or would like to schedule a follow up appointment, please call the clinic nurse midwife at [phone]. Thank you for sharing your experience with the [facility] Midwives. Congratulations on the of your baby! [...] care provider before starting an exercise program. Https://The Paper Store/ Http://www.VoIPshield Systems/ @PelvicGuru1 @MyPelvicFloorMuscles @The.Vagina.isper Taking Care of your Health: Health Care [...] partner having a vasectomy. Reliable resources: ? [place] [employer] Nurse-Midwives (ACNM) http://www.nurse midwife.org/; look at the informational handouts at http://www.nurse midwife.org/Lslps-Vijc-Fkvqo ?? Women's Health.gov: http://www.womenshealth.gov/a-z-topics/index.html FDA - Nutrition ?www.mypyramid.gov? Under For Consumers, click on and women. ? Vaccines : Centers for Disease Control and Prevention (CDC) http://www.cdc.gov/vaccines/ ? [facility] www.Ubequityinic.com ? When researching information on the web, question the validity of websites.? The domains .gov, .edu and.org tend to be more reliable information.? [...] D rich foods: Cod Liver Oil (1Tbsp), [place], Mackerel, Tuna, fortified milk and yogurt, Beef and liver, sardines, egg, fortified cereals, english cheese.? Take supplements with fattiest meal.? ? 2-3 (4) oz servings of fish, seafood, nuts (walnuts & almonds), oils, avocado per week - if not,take [place] 3 Fatty acids: DHA & SAV 2233-4596 mg per day. ?Other names: cod liver oil, fish oil.Take with fattiest meal. ? ? & RESOURCES : Virtual Support: During this time of isolation, families need even more community! Here are some area organizations offering virtual support groups for : ??? [facility] Support Group, Tuesdays at 10:30 am Run by LIZ Rubin of [employer] Go to [employer] Facebook page and click on events for link [email or web address]://[email or web address]/ ??? [facility] Milk Hour, at 2:30 pm Run by LIZ Mosley Go to [facility] FB page and send message to get link [email or web address]://[email or web address]/ ??? Harleen Oconnor [facility] holding virtual meetings the first Wednesday of each month, 8-9 pm, and the Third Wednesday, 10 - 11 am. Go to Belem Ocononr of [place] and [place] FB page; message to get link [email or web address]://www.[email or web address].com/AngelafGKasia/?hc_location=[facility] ??? [facility] offers a Lounge every Wednesday 12pm - 1pm, run by Harleen Robles Leader Sign up via link at Wix/cbe- https://www.Wix/cbe- ??? [facility] is offering virtual support groups every Wednesday, 10:30 am - 12 pm, run by IBCLC Https://[email or web address]/ Classes: ??? [facility] is offering virtual and care classes: https://www.Wix/education-workshops ??? BirthEd childbirth and education offering virtual classes https://www.Networkermn.World Surveillance Group/workshops : OUTPATIENT RESOURCES -Schedule an appointment with a [facility] ABDOUL who is also a Relief Captain by calling [phone]. Temitope Larkin IBROBERTO, CNM at [facility] on Wednesday, Mihaela Burns CNM at [facility] on Tuesdays and [facility] on . [facility] Clinics located at [place]???[facility] Call: [phone]. ??? Inpatient support ??? Outpatient appointments ??? Telephone consultation ??? Breast-feeding classes available through [facility]/COC/carrier clinic health improvement partnership: Baby Caf?? and interested in ? Need [...] for the Baby Caf?? closest to you! [facility] [address] [place] [address] Wednesday: 10am-12pm [facility] [address] [place] [address] Wednesday 4-6pm [facility] [address] [place] [address] Wednesday 10am-12:30pm [facility] [place] [facility] [address] [place] [address] Wednesdays: 4-6pm Hmong, Chinese, and Cambodian which is may be available at some sites. For more information, please contact: Beatris Borges@[email or web address]. or [phone] -[facility]: www.[facility] hospitalUbicom.World Surveillance Group -Attend a baby weigh in at [place]. consultants are available to answer questions [place]: Tuesdays 1:00 - 2:00 [facility], [facility]: Mondays 1:00 - 2:00 -Attend a New Mamma group or a Second Time Mama group at [place]. -Enlightened Mama: www.enlightenedPrivy Groupevt.World Surveillance Group -Attend one of the New Mama groups at [facility] in [facility]. [facility] also offers one-on-one in home and in office consults. -LaLecheLeague: www.lllofmlizas.org/ -Attend a Lukas League meeting. Multiple groups in several locations throughout the [facility]. The meetings are no-cost and always informative education session through Internatal Belem Oconnor Held at [facility] the of each month at 7pm - Information on medication use while : http://toxnet.nlm.nih.gov/newtoxnet/lactmed.htm Other Online Resources: ??? healtheast.org/baby sign up for free online weekly e-mail ??? healtheast.org/maternity ??? Breastfeedingmadesimple.com ??? Llli.org (Belem Oconnor) ??? Normalfed.com ??? Womenshealth.gov/ ??? MediaHound.World Surveillance Group ??? HyperActive Technologies ??? https://Evoz.World Surveillance Group/abcs/ Click on Learn More About Attachment -New Parent Connection Drop-In: In collaboration with [place], [place] Senior Research Scientist Family Education (ECFE), a program of [address], offers ongoing classes for new parents [...] meet Tuesdays, from 4 to 5 PM -[employer] New Mama Group: www.Wix/heuc-eqv-llil-group -Attend [employer] New Mama. Groups located at three locations: [facility] and [place]. Sign up online. Additional Resources:? -[place] College of Nurse-Midwives (ACNM) http://www.nurse midwife.org/; look at the informational handouts at http://www.nurse midwife.org/Boame-Rfph-Yklny www.mymidwife.org ? -Women's Health.gov: http://www.womenshealth.gov/a-z-topics/index.html ? -[place] Senior Research Scientist and Family Education (ECFE): ECFE offers parents [...] women may experience. Resources: - and Support [place]: www.[facility] hospitalportme.org Who We Are: We are a group of mental health & practitioners, service organizations, and mother volunteers who provides services to those struggling with a , loss, or mood disorder through the Helpline, professional training, our resource list and website. What We Do: We provide support, advocacy, awareness, and training about mental health in [place]. Community Resource List: This is a list of resources within our community. http://ppsupportme.org/communityresourcelist PSYCHOTHERAPISTS/CONSULTANTS This is a list of licensed mental health professionals who have advanced clinical skills in the treatment of mood and anxiety disorders (PMADs). Http://ppsupportme.org/mentalhealthproviderresourcelist INTEGRATIVE MEDICINE PRACTITIONERS: This is a list of licensed providers who practice Integrative Medicine: a form of treatment that combines alternative medicine with evidence based medicine in an effort to treat the ???whole person?? (the person, not just the disease). http://ppsupportmn.org/integrativemedicineproviders PSYCHIATRIC CARE This is a list of licensed Psychiatrists who have advanced clinical skills in the treatment and medication management for PMADs and lactating mothers. Http://ppsupportmn.org/psychiatryproviderresroucelist Click on the links below to find detailed profiles and contact information of providers who have been screened and approved as having advanced training in the area of PMADs. Please note: [facility] does not endorse a specific provider. The list is in alphabetical order by city. You can also search for providers by city or zip code using the search box. Please click on the Show box to the upper right to advance to the next page. Youmay also call our Helpline at [phone] if you would like for our Helpline volunteer to find a provider for you. - Depression Support Group: Weekly groups at no cost through [facility], Tuesdays, 1:30-3:00 p.m., at [facility], [address] [facility], [address]. [place], Wednesdays, 1:30-3:00 p.m., at [facility], [address] To register for the group or get more information, call [phone]. - Depression Support Group: Outpatient Intensive Treatment program for women with mood disorders [facility] Mother/Baby Program -[facility] Resource Guide Women???s Mental Health at [facility] This website provides a range of current [...] National Suicide Prevention Lifeline: Suicide Prevention Hotline: 4-699-YCMJAFN National Depression Hotline: 6-067-TNT-MOMS Support International (PSI) PPD Helpline: (not a 24-hour hotline) documented in this encounter Plan of Treatment Not on filedocumented as of this encounter Visit Diagnoses Diagnosis Routine follow-up documented in this encounter Additional Health Concerns Assessment Noted Time PHQ-9 Depression Total Score: 7 07/27/2018 7:15 AM NEWSPAPER JOURNALIST documented as of this encounter Care Teams Biological Inspector Relationship Specialty Start Date End Date Rashida Pederson APRN SURFACER OPERATOR PCP - General Nurse Practitioner 10/08/14 [address] [place], [place] [id number] Rashida Pederson APRN SURFACER OPERATOR Assigned PCP 10/14/14 07/26/21 [address] [place], [place] [id number] documented as of this encounter
--- OUTSIDE RECORDS SUMMARY | 2022-06-02 16:04 | XMS_ITS | Encounter Summary ---
:1985 Author Organization [place] Address [address] [place] [address] Care Team Providers Name Role Phone Rashida Pederson APRN INTEGRATION AIDE Primary Care Provider [phone] Rashida Pederson APRN INTEGRATION AIDE Unavailable [phone] Encounter Details Date Type Department Care Team Description 01/10/2021 Records - [facility] CONVERSION Provider, Histor ica Social History Tobacco Use Types Packs/Day Years [...] encounter Procedures Procedure Name Priority Date/Time Associated Diagnosis Comme nts CT HEAD W/O Routine 05/30/2004 12:00 AM Results for this CONTRAST CDT procedure are i n the results section. documented in this encounter Results CT Head w/o Contrast (05/30/2004 12:00 AM CDT) Anatomical Region Laterality Modality Head, SUBRAD CT NEURO, SUBRAD CT NEURO, UMP CT NEURO, Computed Tomography RAD CT Specimen (Source) Anatomical Location Collection Method / Collectio n Time Received Time / Laterality Volume Narrative 05/30/2004 12:00 AM CDT See Historical Hospital Medical Record f or documentation Procedure Note Provider, Historical - 01/10/2021Formatt ing of this note might be different from the original. See Historical Hospital Medical Record f or documentation Historical Provider IMG CT ORDERABLES documented in this encounter Visit Diagnoses Not on filedocumented in this encounter Additional Health Concerns Assessment Noted Time PHQ-9 Depression Total Score: 7 07/27/2018 7:15 AM BEHAVIOR CLINICIAN documented as of this encounter Care Teams Channel Cementer Relationship Specialty Start Date End Date Rashida Pederson APRN INTEGRATION AIDE PCP - General Nurse Practitioner 10/08/14 [address] [place] [address] Rashida Pederson APRN INTEGRATION AIDE Assigned PCP 10/14/14 07/26/21 [address] [place] [address] documented as of this encounter
--- OUTSIDE RECORDS SUMMARY | 2022-06-02 16:04 | XMS_ITS | Encounter Summary ---
:1985 Author Organization [place] Address [address] [place] [address] Care Team Providers Name Role Phone Rashida Pederson APRN, CNP Primary Care Provider [phone] Rashida Pederson APRN, CNP Unavailable [phone] Encounter Details Date Type Department Care Team Description 06/26/[address] [facility] Health Info Mgmt Non-Provider LUZ ELENA MARADIAGA Srv[facility] SCALE [address] [place] [address] Social History Tobacco Use Types Packs/Day Years [...] Depression Total Score: 7 07/27/2018 7:15 AM DIRECTOR OF INTELLIGENCE documented as of this encounter Care Teams Exchange Underwriting Consultant Relationship Specialty Start Date End Date Rashida Pederson APRN CNP PCP - General Nurse Practitioner 10/08/14 [address] [place] [address] Rashida Pederson, BRUSH CLEARING LABORER OPERATIONS SECTION MANAGER Assigned PCP 10/14/14 07/26/21 [address] [facility] [place] [address] documented as of this encounter
--- OUTSIDE RECORDS SUMMARY | 2022-06-02 16:04 | XMS_ITS | Encounter Summary ---
:1985 Author Organization [place] Address [address] [place] [address] Care Team Providers Name Role Phone Rashida Pederson APRN, CNP Primary Care Provider [phone] Rashida Pederson APRN, CNP Unavailable [phone] Encounter Details Date Type Department Care Team Description 04/29/2020 [facility]ice - [facility] [place], [address] [place] [address] Social History Tobacco Use Types Packs/Day Years [...] Depression Total Score: 7 07/27/2018 7:15 AM FERRIS WHEEL ATTENDANT documented as of this encounter Care Teams Aircraft Instrument Engineer Relationship Specialty Start Date End Date Rashida Pederson APRN CNP PCP - General Nurse Practitioner 10/08/14 [address] [place], [place] [id number] Rashida Pederson, ZIYAD GUIDANCE SERVICES COORDINATOR Assigned PCP 10/14/14 07/26/21 [address] [place] [address] documented as of this encounter
--- OUTSIDE RECORDS SUMMARY | 2022-06-02 16:04 | XMS_ITS | Clinical Summary ---
:1985 Author Organization [facility] [place] [address] Care Team Providers Name Role Phone Fatou Bravo Primary Care Provider [phone] Unknown, Doctor Unavailable Unavailable Allergies Active Allergy Reactions Severity Noted Date Comments Estrogens Other - Describe In Comment High 04/24/2013 Had pulmonary embolism Field Estrogens *Unknown 12/02/2021 Blood clot Bupropion Seizures 01/22/2008 Bupropion Seizures High 12/02/2021 Medications Medication Sig Dispensed Refills Start Date End Date Status LORazepam (ATIVAN) 0.5 Take 1 tablet by 45 tablet 0 04/24/2013 Active mg Tab mouth 3 times daily if needed for Anxiety. ascorbic acid, vitamin Daily 0 Active C, (VITAMIN C) 1,000 mg tablet cholecalciferol, Daily 0 Act leila Vitamin D3, 2,000 unit tablet cyanocobalamin, vitamin 0 Active B-12, 250 mcg lozg hydrOXYzine pamoate as needed 0 Active (VISTARIL) 50 mg capsule levothyroxine Take 112 mcg by 0 11/14/2021 Active (SYNTHROID) 112 mcg mouth once daily. tablet ondansetron (ZOFRAN DISSOLVE 1 TABLET 0 11/14/2021 Active ODT) 8 mg ON THE TONGUE disintegrating tablet TWICE DAILY FOR 15 DAYS NEEDED vit Take by mouth. 0 Ac tive no.124/iron/folic ( VITAMIN ORAL) Active Problems Problem Noted Date [facility] Supervision of high-risk 11/20/2021 Overview: [facility] CONSULTATION ON 12/02/21 -- Virtual Visit REASON FOR CONSULT: risks and management TODAY'S APPOINTMENT: MD Consultation (& L2US scheduled 01/21/22) PRIMARY DIAGNOSIS: 36 y.o. EDC 06/06/22 ?? BMI = 42 ?? H/O DVT while smoking and OCP--was on Lovenox with last ?? Hypothyroid TSH = 9.070--no meds ?? H/O depression with suicide attempt 2 012--not currently seeing a therapist ?? 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 Hx seizure on Wellbutrin at age 18 LAST GROWTH: Next: L2US at [facility] on 01/21/22 11/13/21: 10w4d LMP c/w 1st trimester US REFERRING PHYSICIAN/PHONE/LAST UPDATE: [facility] [phone] Primary MD approves scheduling of recomm ended ultrasounds/testing: Yes SPECIALISTS/CONSULTS: Include: Specialty MD Clinic Name Phone# [place] and ADDED TO PATIENT CARE TEAM No CARE COORDINATION: GENETICS: none PROCEDURES: PERTINENT LABS: A1C = 5.5 on 11/13/21 PERTINENT MEDS: Vistaril, Vit B-12, Vit C, Vit D, PNV Preferred delivery location: PLAN OF CARE: Personal history of pulmonary embolism 2012 Overview: 07/12/12 Surveillance of previously prescribed contraceptive pi ll 03/21/2008 Overview: Sprintec started: 03/21/08 Poisoning by unspecified drug or medicinal substance(9 77.9) 01/22/2008 Maternal morbid obesity in second trimester, antepartu m Hypothyroidism affecting in second trimester Estimated Date of Delivery Comments Yes 06/06/2022 Based on Other Basis Immunizations Name Administration Dates Next Due Human Papilloma Virus Vaccine 03/21/2008 Td (Age >=7 Years) 08/16/1998 Tdap 11/03/2010 Family History Medical History Relation Name Comments Addiction problem Father Alcohol/Drug Father sober x 20 years No Known Problems Half-Brother 1 No Known Problems Half-Brother 2 Cancer-pancreatic Maternal Grandfather Heart Disease Maternal Grandfather Hypertension Maternal Grandfather Arthritis Maternal Grandmother Alcohol/Drug Mother Alcoholism Mother Anxiety disorder Mother Arthritis Paternal Grandfather Alcohol/Drug Paternal Grandmother Cancer Paternal Grandmother skin Alcohol/Drug Sister Relation Name Status Comments Father Alive Half-Brother 1 Half-Brother 2 Maternal Grandfather Maternal Grandmother Alive Mother Alive Paternal Grandfather Alive Paternal Grandmother Alive Sister Son Alive Social History Tobacco Use Types Packs/Day Years Used Date Former Smoker Cigarettes 0.5 7 1999 - 2017 Smokeless Tobacco: Never Used Tobacco Cessation: Ready to Quit: Yes; C ounseling Given: Yes Comments: quit smoking on Wednesday Alcohol Use Standard Drinks/Week Comments Not Currently 0 (1 standard drink = 0.6 oz pure alcoho l) 2-5 drinks per week Alcohol Habits Answer Date Recorded How often do you have a drink containing alcohol? Not asked How many drinks containing alcohol do you have on a Not aske d typical day when you are drinking? How often do you have six or more drinks on one Not asked occasion? Comment: 2-5 drinks per week 06/10/2012 Estimated Date of Delivery Comments Yes 06/06/2022 Based on Other Basis Sex Assigned at Date Recorded Not on file Obstetrics History Para Term AB IAB SAB Ectopic Multiple Living Live Births 2 1 1 0 0 0 0 0 Date Outcome GA Total Labor/2nd/3rd Weight Sex Delivery Anes PTL Tara A 1 A5 Name Clin Labor 04/26 Term 41w 28h 3.6 kg M VAGINAL Epidu /2020 1d 00m (7 lb ENDY ral, 15 oz) IV Meds Delivery Location: [facility] Comments: was on Lovenox, pushed 3 hours, OP Current OB Episode Summary Episode Dates Estimated Date of Pregravid Weight TWG (As of ) Delivery 12/02/2021 - Present 06/06/2022 (06/02/2022) Date GA Fund Present FHR Mvmt BP Weight Edema Alb Glu Ket Dil/Eff/S ta 12/02/2021 13w3d Inpatient data not d isplayed here. See encounter summary. 01/21/2022 20w4d Inpatient data not d isplayed here. See encounter summary. Progress Notes 12/02/2021 - 13w3d - Samira Gonzales, RNF ormatting of this note might be different from the original. TELEHEALTH As the RN for this telehealth service, I attest that I introduced myself to the patient, provided my credentials, disclosed my location, and determined that, based on a review of the patients chart and/ or a discussion with members of the the medical center ent's treatment team, a virtual visit is an appropriate and effective means of providing this service. The patient and I mutually agree that this visit is appropriate. Due to COVID-19 pandemic, this consult w as done virtually with her in her home. No vital signs or heart rates were taken for this visit [facility] Consult[facility] Vis it Patient scheduled for consultation due t o h/o of DVT while smoking and on OCP--was on Lovenox with her last . States she is not currently on Lovenox because they were waiting for this consult v isit first. Her question is if she will need to be induced with her next d/t bleeding risk. She would rather not be. 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 She was referred by Yessenia Frederick CNM [place] The FOB is [place]. He is the father of th is and the previous one. Specialists: States she saw an MFM with her last , never saw a kitchenhand. Had thrombophilia labs done, states none came back positive (records are not available). Assessment Histories reviewed today include: Past M edical History, Past Surgical History, Social History and Family History and Obstetric History. Refer to the corresponding sections of the history section of [facility] chart and the [facility] Naviga tor for details. Comments under Consult in problem list updated after review with patient. Assessment: Patient's perception of movement: Has not felt movement yet. Normal movement discussed. this is a virtual consult, no asse ssment was made Education Some basic routine education done during assessment. See patient education section for details. Patient states that all her questions were answered. Scheduled to consult with Dr. Castañeda today. Detailed verbal report given. After Visit Summary created and discusse d with patient on discharge. Yes After Visit summary offered and supplied to patient? AVS was printed and mailed to patient's home address. RN time: 30 min SAMIRA GONZALES RN 12/02/2021 9:30 AM Last Filed Vital Signs Vital Sign Reading Time Taken Comments Blood Pressure 118/80 04/24/2013 1:34 PM CDT Pulse 60 04/24/2013 1:34 PM CDT Temperature 36.8 ??C (98.2 ??F) 04/24/2013 1:34 PM CDT Respiratory Rate 20 10/18/2011 10:14 AM MANAGER ARCHITECTURAL Oxygen Saturation 97% 04/24/2013 1:34 PM CDT Inhaled Oxygen Concentration - - Weight 113.4 kg (250 lb) 12/02/2021 10:10 AM CDT Height 165.1 cm (5' 5) 12/02/2021 10:10 AM CDT Body Mass Index 41.6 12/02/2021 10:10 AM CDT Plan of Treatment Health Maintenance Due Date Last Done Comments Depression screening for age 12+ 1999 BMI (ht and wt on same day) for age 18+ 2005 Hepatitis C screening for age 18-79 2005 Pap test for age 21-65 03/21/2011 03/21/2008 Tetanus booster 11/03/2020 11/03/2010, 08/16/1998 COVID-19 vaccine series (3 - Booster for 02/25/2022 022, 05/14/2021 Pfizer series) Influenza for age 9-49 04/16/2022 Tdap Completed 11/03/2010 Results Not on filefrom Last 3 Months Insurance Payer Benefit Plan / Subscriber ID Effective Dates Phone Addre ss Type Group PREFERRED ONE PREFERRED ONE [id number] 2020-Ratna [place] [address] [place] [address] Advance Directives Latest Code Status on File Code Status Date Activated Date Inactivated Comments Full Code 01/22/2008 7:00 PM 01/24/2008 1:53 PM Care Teams Derrick Operator Relationship Specialty Start Date End Date Fatou Bravo PA PCP - General Emergency Medicine 11/18/21 [address] [place] [address] Unknown, Doctor 11/18/21 .
--- OUTSIDE RECORDS SUMMARY | 2022-06-02 16:04 | XMS_ITS | Encounter Summary ---
:1985 Author Organization [facility] Address [address] [place] [address] Care Team Providers Name Role Phone Rashida Pederson APRN [employer] BPM DEVELOPER Primary Care Provider [phone] Rashida Pederson APRN [employer] BPM DEVELOPER Unavailable [phone] Encounter Details Date Type Department Care Team Description 05/27/2020 [facility] Paty Lewis [facility] [address] [place], [place] [address]LEONELA CALLAWAY [address] [place] [address] [facility] [address] [facility] [place] [address] Social History Tobacco Use Types Packs/Day [...] Depression Total Score: 7 07/27/2018 7:15 AM 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
--- OUTSIDE RECORDS SUMMARY | 2022-06-02 16:04 | XMS_ITS | Encounter Summary ---
:1985 Author Organization [facility] Address [address] [place] [address] Care Team Providers Name Role Phone Rashida Pederson APRN CONTACT CENTER CONSULTANT Primary Care Provider [phone] Rashida Pederson APRN CONTACT CENTER CONSULTANT Unavailable [phone] Encounter Details Date Type Department Care Team Description 04/29/2020 [facility] Care[facility] - [facility] [place], [address] [place] [address] Social History Tobacco Use Types [...] Sign Reading Time Taken Comments Blood Pressure 124/68 04/29/2020 10:06 AM CDT Pulse 88 04/29/2020 10:06 AM CDT Temperature 36.4 ??C (97.5 ??F) 04/29/2020 10:06 AM CDT Respiratory Rate 16 04/29/2020 10:06 AM CDT Oxygen Saturation - - Inhaled Oxygen Concentration - - Weight - - Height - - Body Mass Index - - documented in this encounter Plan of Treatment Not on filedocumented as of this encounter Visit Diagnoses Not on filedocumented in this encounter Additional Health Concerns Assessment Noted Time PHQ-9 Depression Total Score: 7 07/27/2018 7:15 AM 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
--- OUTSIDE RECORDS SUMMARY | 2022-06-02 16:04 | XMS_ITS | Encounter Summary ---
:1985 Author Organization [facility] Address [address] [place] [address] Care Team Providers Name Role Phone Rashida Pederson APRN PAYROLL DIRECTOR Primary Care Provider [phone] Rashida Pederson APRN PAYROLL DIRECTOR Unavailable [phone] Paty Lewis [facility] Unavailable [phone] Reason for Visit Reason Comments Consult Encounter Details Date Type Department Care Team Description 05/07/2020 [facility] Mihaela Burns C [place] [facility] [address] [place] [address] [address] [place] [address] [facility] (Work) [place] [phone] [place], [place] (Fax) [address] Social History Tobacco Use Types Packs/Day Years Used Date Smoking Tobacco: Former Cigarettes 0.5 10 Quit : 07/19/2012 Smokeless Tobacco: Never Alcohol Use Standard Drinks/Week Comments Yes 0 (1 standard drink = 0.6 oz pure alcoho l) 1-4d 1x/wk Sex Assigned at Date Recorded Not on file documented as of this encounter Progress Notes Mihaela Burns CNM - 05/07/2020 10:30 AM CDT Assessment: 1. 11 day old infant over birthweight primarily on breastmilk feeding, but with slowing weight gain:gain of 1.8 oz over last 5 days 2. Difficulty with establishing and sustaining latch at breast, possibly due to long pushing phase and/or recessed chin, leading to ineffective suck. Low milk transfer. 3. Mother with slightly low milk supply Plan: 1. Recommended that Logan continue to feed Yves on cue, offering the breast as many times per day asis manageable. Suggested that if he becomes very frustrated, to consider offering a little bit of his supplement before feeding for calming. Don't continue to try if he is getting very agitated. 2. Explained that Yves needs about 21.5 - 22 oz of milk each day to grow well. If he nurses at homeas he did in the office today, about 6 times/day, he needs about 19 oz per day in supplementation (around 2 - 2.5 oz/feeding), using your breastmilk as your first choice and formula when the supply of pumped milk runs out. You can give this after feedings, or distributed throughout the day according to his feeding cues. 3. Use the sidelying position if possible for feeding, as this seems to be helping him get the deepest possible latch--use a hand to present breast in the sandwich position, compressing breast in thesame angle as his mouth. If the scissors hold works well for this, then use that. Make sure his chin is snugged deeply into the breast, as this can help him nurse best given his recessed chin. 4. To continue pumping pattern--Logan reports she feels this is sustainable for now. 5. Discussed possible utility of cranio-sacral therapy for infants with difficult latch/suck after prolonged . Explained does not have solid evidence base, but is gentle and non-invasive. 6. Follow up in 2 weeks or sooner if needed. Subjective: Logan is here today for a follow-up visit. She was seen five days ago because of latch concerns. Baby Yves had significant difficulty latching to breast at that visit, but did eventually successfully latch and transfer a small amount of milk in the sidelying position. A plan was made for continued pumping and supplementation until his ability to latch and transfer milk improves. Today Logan reports that she has been trying to latch him to breast about every other feeding, and about half of these have been successful. She thinks that she hears him swallowing when he latches. However, sometimes he will not latch and just cries, so she moves to the bottle. She would very much like to be exclusively . She is continuing to pump regularly and has only needed to offer minimal formula supplementation. Relevant History: Prolonged pushing phase Breast Surgery: none Goals: Previous Experience: first baby 's name: Yves Infant's bday: [birth year] Gestational age: 41w1d Infant's weight: 7# 15.3 oz Mode of delivery: vaginal Infant's MD: BALA Guy, [facility]. Logan gives her permission for today's note jonathan forwarded to Ann Caio. NGOZI signed and filed in Logan's chart as Yves has no local active pediatric chart. Discharge weight: 7# 10.6 oz Last weight on this scale 5 days ago: 8# 0 oz Frequency and duration of feedings: every 2-3 hours Swallows audible per mother: yes Numbers of feedings in 24 hours: 8 Number urines per day: 6-8 Number of stools per day and their color: 2, mustardy Supplementation: with 2-3 oz with pumped milk or formula at each feeding Pumping: about 6 times during the day, yielding about 2-4 oz/session: Around 12- 14 oz/day Objective/Physical exam: Mother: Noticed breasts grew larger and areolas darkened during and she noticed primary engorgement when her milk came in on about day 3-4. Her nipples are short shafted, the areola is compressible, the breast is soft and full. Sore nipples: no EPDS: 6 Assessment of : 44.50% Weight for age percentile Age today: 11 days Today's weight: 8# 1.8 oz (goal 8# 2.5 - 8# 5 oz) Amount of milk transferred from LEFT side: sips Amount of milk transferred from RIGHT side: 0.6 oz Baby has full flexion of arms and legs, normal tone, behavior is alert and active, respirations are normal, skin is normal, hydration is normal, jaw is normal size and alignment, palate is normal, frenulum is normal, baby can lateralize tongue, has adequate tongue lift, and tongue can protrude past bottom gum line. Noted baby to have a significantly recessed chin Baby thrush: none Jaundice: none Feeding assessment: Baby had difficulty latching to the breast and sustaining latch. Made multiple attempts in football holds, and baby was not able to sustain latch more than one or two sucks. Mother also had maintaining positioning comfortably. Again moved to sidelying position, and baby did best in this position: Mother able to latch using scissors hold to present breast as sandwich, and did latch and maintain suck to transfer milk. Baby tends to easily slip to shallow latch and tuck in lower lip, moving to ineffective suck that does not transfer milk. Alignment: The baby was flex relaxed. Baby's head was aligned with its trunk. Baby did face mother. Baby was in football and sidelying positions today. Areolar Grasp: Baby [...] reflex is normal and milk supply is just slightly low. BP 108/66 (Patient Site: Right Arm, Patient Position: Sitting, Cuff Size: Adult Regular) Pulse 74 Resp 18 LMP 07/13/2019 (Exact Date) Current [...] 8 (eight) hours., Disp: , Rfl: ??? prenat.vits,ant,ocl-fizx-hhbxa ( VITAMIN) Tab, Take 2 tablets by [...] >50% counseling and education Mihaela Burns APRN, ABDOUL, IBCLC documented in this encounter Miscellaneous Notes Patient Instructions - HE - Mihaela Burns CNM - 05/07/2020 10:30 AM CDT 1. Continue to feed Yves on cue, offering the breast as many times per day as you can manage. If karon not do well with trying the latch, then consider offering a little bit of his supplement beforefeeding for calming. Don't continue to try if he is getting very agitated. 2. Yves needs about 21.5 - 22 oz of milk each day to grow well. If he nurses at home as he did in the office today, about 6 times/day, he needs about 19 oz per day in supplementation (around 2 - 2.5 oz/feeding), using your breastmilk as your first choice and formula when the supply of pumped milk runs out. You can give this after feedings, or distributed throughout the day according to his feeding cues. 3. Use the sidelying position if possible for feeding, as this seems to be helping him get the deepest possible latch--use your hand to present your breast in the sandwich position, compressing your breast in the same angle as his mouth. If the scissors hold works well for this, then use that. Make sure his chin is snugged deeply into your breast. 4. Follow up in 2 weeks or sooner if needed. 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
--- OUTSIDE RECORDS SUMMARY | 2022-06-02 16:04 | XMS_ITS | Clinical Summary ---
:1985 Author Organization [place] Address [address] [place] [address] Care Team Providers Name Role Phone Rashida Pederson APRN [facility] Primary Care Provider [phone] Allergies Active Allergy Reactions Severity Noted Date Comments Estrogens 07/22/2012 Patient had est sky associated PE Bupropion Other (See Comments) 10/06/2014 seizure Medications Medication Sig Dispensed Refills Start Date End Date Status cyclobenzaprine Take 0.5-1 30 tablet 1 10/14/2017 Ac tive (FLEXERIL) 10 MG tablets (5-10 tabletIndications: Acute mg) by mouth 3 left-sided low back pain times daily as without sciatica needed for muscle spasms hydrOXYzine (ATARAX) 50 Take 1 tablet 30 tablet 0 03/28/2019 Active MG tabletIndications: (50 mg) by mouth Anxiety 3 times daily as needed for anxiety Active Problems Problem Noted Date CARDIOVASCULAR SCREENING; LDL GOAL LESS THAN 160 02/07 Major depression, recurrent 10/06/2014 Anxiety 10/06/2014 Panic attack 09/11/2013 Overview: Patient is followed by RASHIDA PEDERSON for ongoing prescription of anxiety medication. All refills should be approved by this provider, or covering partner. Medication(s): ativan 0.5mg tid prn candice c attacks Maximum quantity per month: #30 every 6 months (only to take on a very limited basis). Clinic visit frequency required: must ma ke a clinic appointment for refill of Ativan Controlled substance agreement on file: Yes Date(s): 09/17/2015 Pain Clinic evaluation in the past: No DIRE Total Score(s): No flowsheet data found. Last [facility] website verification: 6 [email or web address] Mirena IUD (intrauterine device) in place 08/07/2013 Overview: 08/07/2013: Mirena inserted under US jennifer kim p cx dilation. Remove/replace by 08/08/18. ksl Dysmenorrhea 07/24/2013 History of pulmonary embolism 07/13/2012 Resolved Problems Problem Noted Date Resolved Date BMI 40.0-44.9, adult 08/24/2019 09/05/2019 Overview: bmi 40 at [employer]. BV (bacterial vaginosis) 11/09/2012 09/17/2015 Immunizations Name Administration Dates Next Due Influenza (IIV3) PF 05/14/2012 Influenza Vaccine IM > 6 months Valent IIV4 04/21/2017 (Alfuria,Fluzone) Tdap (Adacel,Boostrix) 11/03/2010 Family History Medical History Relation Comments Alcohol/Drug Father biologic & adopted Alcoholism Father Depression Father & Mother Hyperlipidemia Father Hypertension Father Substance Abuse Father No Known Problems Maternal Aunt Cancer Maternal Grandfather pancreatic Coronary Artery Disease Maternal Grandfather Myocardial Infarction Maternal Grandfather stent palcement Alzheimer Disease Maternal Grandmother & PGF Arthritis Maternal Grandmother No Known Problems Maternal Uncle Alcohol/Drug Mother biologic mom Alcoholism Mother Obesity Mother & MGM, PGM, PGF Alcoholism Paternal Aunt Alcoholism Paternal Uncle Cancer No family hx of Diabetes No family hx of Hypertension No family hx of Relation Status Comments Father Alive Maternal Aunt Alive Maternal Grandfather Maternal Grandmother Alive Maternal Uncle Alive Mother Alive Paternal Aunt Alive Paternal Grandfather (Age 92) nautral causes Paternal Grandmother health hx not well known Paternal Uncle Alive Social History Tobacco Use Types Packs/Day Years Used Date Smoking Tobacco: Former Cigarettes 0.3 10 Quit : 07/19/2012 Smokeless Tobacco: Never Alcohol Use Standard Drinks/Week Comments Yes 2.5 (1 standard drink = 0.6 oz pure alco hol) 1-4d 1x/wk Sex Assigned at Date Recorded Not on file Last Filed Vital Signs Vital Sign Reading Time Taken Comments Blood Pressure 124/70 06/11/2020 10:48 AM CDT Pulse 86 06/11/2020 10:48 AM CDT Temperature 36.4 ??C (97.5 ??F) 04/29/2020 10:06 AM CDT Respiratory Rate 16 04/29/2020 10:06 AM CDT Oxygen Saturation 96% 05/13/2020 10:58 AM CDT Inhaled Oxygen Concentration - - Weight 113.9 kg (251 lb) 06/11/2020 10:48 AM CDT Height 163.8 cm (5' 4.5) 06/11/2020 10:48 AM CDT Body Mass Index 42.42 06/11/2020 10:48 AM CDT Plan of Treatment Health Maintenance Due Date Last Done Comments ADVANCE CARE PLANNING 1985 ANNUAL REVIEW OF HM ORDERS 1985 HEPATITIS B IMMUNIZATION (1 1985 of 3 - 3-dose series) COVID-19 Vaccine (#1) 01/17/1988 HEPATITIS C SCREENING 2005 PHQ-9 01/24/2019 07/26/2018, 01/04/2018, 09/10/2017, Additional history exists YEARLY PREVENTIVE VISIT 07/26/2019 07/26/2018, 02/15/2017, 03/27/2016, Additional history exists INFLUENZA VACCINE (#1) 2022 06/11/2020, 06/12/2019, 06/02/2018, Additional history exists HPV TEST 06/11/2023 06/11/2020, 07/26/2018 PAP 06/11/2023 06/11/2020, 06/11/2020, 07/26/2018, Additional history exists DTAP/TDAP/TD IMMUNIZATION 01/24/2030 01/25/2020, 11/03/2010 (3 - Td or Tdap) DEPRESSION ACTION PLAN Completed 04/21/2017, 09/17/2015, 10/08/2014 HIV SCREENING Completed 10/09/2019, 04/06/2011 IPV IMMUNIZATION Aged Out No longer eligi ble based on patient 's age to complete this topic MENINGITIS IMMUNIZATION Aged Out No longe r eligible based on patient 's age to complete this topic Pneumococcal Vaccine: Aged Out No longer eligible Pediatrics (0 to 5 Years) based on patient's age and At-Risk Patients (6 to to co mplete this topic 64 Years) Insurance Payer Benefit Plan / Subscriber ID Effective Phone Address T ype Group Dates PREFERREDONE PREFERREDONE [id number] 2021-Prese [phone] [place] [id number] PPO [employer] [address] [place] [address] Guarantor Name Account Type Relation to Date of Phone Billing Patient Address Logan Sandoval Personal/Family Self [phone] (Home) [place] [address] [place] Personal/Family Self 1985 [id number] (Home) [place] [address] Advance Directives For more information, please contact: [phone] Latest Code Status on File Code Status Date Activated Date Inactivated Comments Full Code 07/14/2012 4:21 PM Code Status History Code Status Date Activated Date Inactivated Comments Full Code 07/13/2012 4:06 AM 07/14/2012 4:21 PM Care Teams Blood Donor Recruiter Supervisor Relationship Specialty Start Date End Date Rashida Pederson APRN CNP PCP - General Nurse Practitioner 10/08/14 [address] [place] [address]
--- OUTSIDE RECORDS SUMMARY | 2022-06-02 16:04 | XMS_ITS | Encounter Summary ---
:1985 Author Organization [place] Address [address] [place] [address] Care Team Providers Name Role Phone Rashida Pederson APRN WEB SERVICES PROFESSIONAL Primary Care Provider [phone] Rashida Pederson APRN WEB SERVICES PROFESSIONAL Unavailable [phone] Encounter Details Date Type Department Care Team Description 05/04/2020 Communication - [facility] Karis Hale, [facility] [address] [facility] [address] [facility] [address] [place] [address] Social History Tobacco Use Types Packs/Day Years Used Date Smoking Tobacco: Former Cigarettes 0.5 10 Quit : 07/19/2012 Smokeless Tobacco: Never Alcohol Use Standard Drinks/Week Comments Yes 0 (1 standard drink = 0.6 oz pure alcoho l) 1-4d 1x/wk Sex Assigned at Date Recorded Not on file documented as of this encounter Miscellaneous Notes Telephone Encounter - Ashley Germain CMA - 05/06/2020 8:49 AM CDT Forms printed for completion/review/signature. documented in this encounter Plan of Treatment Not on filedocumented as of this encounter Visit Diagnoses Not on filedocumented in this encounter Additional Health Concerns Assessment Noted Time PHQ-9 Depression Total Score: 7 07/27/2018 7:15 AM USED EQUIPMENT SALES REPRESENTATIVE documented as of this encounter Care Teams Structural Fitter Relationship Specialty Start Date End Date Rashida Pederson APRN WEB SERVICES PROFESSIONAL PCP - General Nurse Practitioner 10/08/14 [address] [place] [address] Rashida Pederson APRN WEB SERVICES PROFESSIONAL Assigned PCP 10/14/14 07/26/21 [address] [place] [address] documented as of this encounter
--- OUTSIDE RECORDS SUMMARY | 2022-06-02 16:04 | XMS_ITS | Encounter Summary ---
:1985 Author Organization [place] Address [address] [place] [address] Care Team Providers Name Role Phone Rashida Pederson APRN, CNP Primary Care Provider [phone] Rashida Pederson APRN, CNP Unavailable [phone] Encounter Details Date Type Department Care Team Description 04/27/2020 [facility] Rosita clarke [address] [place] [address] Social History Tobacco Use Types [...] Depression Total Score: 7 07/27/2018 7:15 AM SPORTS TEAM MANAGER documented as of this encounter Care Teams Proration Clerk Relationship Specialty Start Date End Date Rashida Pederson APRN CNP PCP - General Nurse Practitioner 10/08/14 [address] [place] [address] Rashida Pederson, ZIYAD ASSISTANT ART DIRECTOR Assigned PCP 10/14/14 07/26/21 [address] [place] [address] documented as of this encounter
--- OUTSIDE RECORDS SUMMARY | 2022-06-02 16:05 | XMS_ITS | Encounter Summary ---
:1985 Author Organization [place] Address [address] [place] [address] Care Team Providers Name Role Phone Rashida Pederson APRN GENERAL ADMINISTRATOR Primary Care Provider [phone] Rashida Pederson APRN GENERAL ADMINISTRATOR Unavailable [phone] Reason for Visit Reason Comments Care [id number] Encounter Details Date Type Department Care Team Description 04/10/2020 Office [facility] Junie Saavedra h-risk , third trimester; Visit - [facility] A, CNLemuel History of pulmonary embolism; [facility] [address] BMI 39.0-39.9,adult; [address] At high risk for venous thromboembolism (VTE); Drive [address] Rh negative, antepartum [facility] [id number] [place] [address] [phone] [address] (Work) [phone] Social History Tobacco Use Types Packs/Day Years [...] Sign Reading Time Taken Comments Blood Pressure 114/66 04/10/2020 12:29 PM CDT Pulse 68 04/10/2020 12:29 PM CDT Temperature - - Respiratory Rate - - Oxygen Saturation - - Inhaled Oxygen Concentration - - Weight 119.4 kg (263 lb 4.8 oz) 04/10/2020 12:29 PM CDT Height 167.6 cm (5' 6) 04/10/2020 12:29 PM CDT Body Mass Index 42.5 04/10/2020 12:29 PM CDT documented in this encounter Progress Notes Junie Saavedra CNM - 04/10/2020 12:20 PM CDT Logan presents to the clinic by herself. Continues injecting heparin as directed for history of PE, it does not hurt at all. Baby is very active, and she denies regular uterine contractions, loss of fluid, vaginal bleeding, headache, visual disturbances or upper abdominal pain. Written information given regarding late term management/ surveillance, screening. She desires expectant management of late term at this time. DECLINES IOL at 39 weeks of (an offering d/t elevated pre- BMI). Accepting of BPP order next visit. Term labor precautions and danger signs and symptoms reviewed. All questions answered. Encouraged daily movement counting andto call or return to clinic with any questions, concerns, or as needed. 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
--- OUTSIDE RECORDS SUMMARY | 2022-06-02 16:05 | XMS_ITS | Encounter Summary ---
:1985 Author Organization [place] Address [address] [place] [address] Care Team Providers Name Role Phone Rashida Pederson APRN UNPAID INTERN Primary Care Provider [phone] Rashida Pederson APRN UNPAID INTERN Unavailable [phone] Reason for Visit Reason Comments Hypertension Encounter Details Date Type Department Care Team Description 04/21/2020 [facility] ABDOUL [facility] [place] [facility]5 [facility] [address] [facility] 200 [facility] (Work) [place] [address] Social History Tobacco Use Types Packs/Day Years Used Date Smoking Tobacco: Former Cigarettes 0.5 10 Quit : 07/19/2012 Smokeless Tobacco: Never Alcohol Use Standard Drinks/Week Comments Yes 0 (1 standard drink = 0.6 oz pure alcoho l) 1-4d 1x/wk Sex Assigned at Date Recorded Not on file documented as of this encounter Miscellaneous Notes Telephone Encounter - Paty Lewis CNM - 04/21/2020 11:38 AM CDT Phone Note: ABDOUL contacted patient as follow up to previous triage visit on 04/19/20. She was scheduledfor an IOL today (04/21/20) d/t high BMI in , however after her triage visit and a further discussion on IOL with the centrifugal screen tender on that day, she declined the IOL and planned follow up in the clinic for 04/25/20. After reviewing her visit note, it appears her BP was mildly elevated at 138/93, thus initiating the call today. Logan states she knew about the elevation and reported the next reading in triage was normal- states she and the centrifugal screen tender talked about it as well. She feels it was a little high due to anxiety surrounding the IOL recommendation when thinking everything was fine and normal prior to the last clinic visit. It appears her PRE- BMI is right under the cut off for IOL at 39 weeks (39.4 rather than 40). She strongly desires an un-medicated spontaneous labor and . All the women in my family have had this. Feels she is making an informed decision and will accept an IOL in the 41st week if she does not spontaneously go into labor before then, or sooner if her BP is elevated again or with otherconcerns. Follow up BP in triage on 04/19/20 was 128/83. Denies sxs preeclampsia at time of call after review. She lives in [place] and declines triage visit today for BP check. Plans to have BP checked tomorrow by her sister who is also a nurse and will let us know what it is by calling into the call line. Paty Lewis APRN,ABDOUL documented in this encounter Plan of Treatment Not on filedocumented as of this encounter Visit Diagnoses Not on filedocumented in this encounter Additional Health Concerns Assessment Noted Time PHQ-9 Depression Total Score: 7 07/27/2018 7:15 AM CHARGE OPERATOR documented as of this encounter Care Teams Foundry Manager Relationship Specialty Start Date End Date Rashida Pederson APRN CNP PCP - General Nurse Practitioner 10/08/14 [address] [place] [address] Rashida Pederson APRN CNP Assigned PCP 10/14/14 07/26/21 [address] [place] [address] documented as of this encounter
--- OUTSIDE RECORDS SUMMARY | 2022-06-02 16:05 | XMS_ITS | Encounter Summary ---
:1985 Author Organization [place] Address [address] [place] [address] Care Team Providers Name Role Phone Rashida Pederson APRN GOLF SUPERINTENDENT Primary Care Provider [phone] Rashida Pederson APRN GOLF SUPERINTENDENT Unavailable [phone] Encounter Details Date Type Department Care Team Description 04/19/[address] [facility] Junie Saavedra Post-term [facility] A, [facility] , 40-42 [facility] [address] [facility] weeks of gestation [address] [facility] [address] [place], [place] [id number] Social History Tobacco Use Types Packs/Day Years Used Date Smoking Tobacco: Former Cigarettes 0.5 10 Quit : 07/19/2012 Smokeless Tobacco: Never Alcohol Use Standard Drinks/Week Comments Yes 0 (1 standard drink = 0.6 oz pure alcoho l) 1-4d 1x/wk Sex Assigned at Date Recorded Not on file documented as of this encounter Medications at Time of Discharge Medication Sig Dispensed Refills Start Date End Date cyclobenzaprine (FLEXERIL) Take 0.5-1 tablets 30 tablet 1 0 10/14/2017 10 MG tabletIndications: (5-10 mg) by mouth Acute left-sided low back 3 times daily as pain without sciatica needed for muscle spasms hydrOXYzine (ATARAX) 50 MG Take 1 tablet (50 30 tablet 0 tabletIndications: Anxiety mg) by mouth 3 times daily as needed for anxiety documented as of this encounter Plan of Treatment Not on filedocumented as of this encounter Procedures Procedure Name Priority Date/Time Associated Diagnosis Comme nts US OB BIOPHY Routine 04/19/2020 2:00 PM Post-term pregna ncy, Results for this PROFILE W/O NON CDT 40-42 weeks of procedure are in STRESS SINGLE gestation the results section. documented in this encounter Results US OB Biophys Prf wo NonStrs Singls Sgl (04/19/2020 2:00 PM CDT) Anatomical Region Laterality Modality Abdomen/Pelvis Other Specimen (Source) Anatomical Location Collection Method / Collectio n Time Received Time / Laterality Volume Impressions 04/19/2020 2:10 PM CDT 1. ??Single living intrauterine gestation in vertex presentation . 2. ??Normal 03/23 biophysical profile. Narrative 04/19/2020 2:10 PM CDT EXAM: US BIOPHYSICAL PROFILE LOCATION: [facility] DATE/TIME: 04/19/2020 2:00 PM INDICATION: late term COMPARISON: Ultrasound 11/29/2019 FINDINGS: Single living fetus, vertex presentation . The visualized bladder, stomach and kidneys are grossly unremarkable. The heart is not well visualized due to technical factors. HEART RATE: 144 bpm. SDP 4.9 cm. PLACENTA: Posterior No previa. CERVIX: Not visualized due to technical factors. 2/2 breathing 2/2 movements 2/2 tone 2/2 amniotic fluid Total biophysical profile 03/23 Procedure Note Nayan Wei MD - 01/23/2021Formatt ing of this note might be different from the original. EXAM: US BIOPHYSICAL PROFILE LOCATION: [facility] DATE/TIME: 04/19/2020 2:00 PM INDICATION: late term COMPARISON: Ultrasound 11/29/2019 FINDINGS: Single living fetus, vertex presentation . The visualized bladder, stomach and kidneys are grossly unremarkable. The heart is not well visualized due to technical factors. HEART RATE: 144 bpm. SDP 4.9 cm. PLACENTA: Posterior No previa. CERVIX: Not visualized due to technical factors. 2/2 breathing 2/2 movements 2/2 tone 2/2 amniotic fluid Total biophysical profile 03/23 IMPRESSION: 1. Single living intrauterine gestation in vertex presentation . 2. Normal 03/23 biophysical profile. Junie Saavedra CNM IMG US ORDERABLES documented in this encounter Visit Diagnoses Diagnosis Post-term , 40-42 weeks of gest ation Post term , unspecified episode of care documented in this encounter Additional Health Concerns Assessment Noted Time PHQ-9 Depression Total Score: 7 07/27/2018 7:15 AM COMPUTER LANGUAGE CODER documented as of this encounter Care Teams Antisqueak Chalker Relationship Specialty Start Date End Date Rashida Pederson APRN GOLF SUPERINTENDENT PCP - General Nurse Practitioner 10/08/14 [address] [place], [place] [phone] Rashida Pederson APRN GOLF SUPERINTENDENT Assigned PCP 10/14/14 07/26/21 [address] [place], [place] [id number] documented as of this encounter
--- OUTSIDE RECORDS SUMMARY | 2022-06-02 16:05 | XMS_ITS | Encounter Summary ---
:1985 Author Organization [place] Address [address] [place] [address] Care Team Providers Name Role Phone Rashida Pederson APRN CHILD CARE SPECIALIST Primary Care Provider [phone] Rashida Pederson APRN CHILD CARE SPECIALIST Unavailable [phone] Encounter Details Date Type Department Care Team Description 03/25/2020 Communication - [facility] Paula Park CNM [address] [address] [address] [facility] [address] Social History Tobacco Use Types [...] Depression Total Score: 7 07/27/2018 7:15 AM BULLDOZER ENGINEER documented as of this encounter Care Teams Senior Chemical Process Engineer Relationship Specialty Start Date End Date Rashida Pederson APRN CHILD CARE SPECIALIST PCP - General Nurse Practitioner 10/08/14 [address] [place], [place] [id number] Rashida Pederson APRN CHILD CARE SPECIALIST Assigned PCP 10/14/14 07/26/21 [address] [place], [place] [id number] documented as of this encounter
--- OUTSIDE RECORDS SUMMARY | 2022-06-02 16:05 | XMS_ITS | Encounter Summary ---
:1985 Author Organization [place] Address [address] [place] [address] Care Team Providers Name Role Phone Rashida Pederson APRN RIVETER PORTABLE MACHINE Primary Care Provider [phone] Rashida Pederson APRN RIVETER PORTABLE MACHINE Unavailable [phone] Encounter Details Date Type Department Care Team Description 11/29/2019 [facility] Coretta Lemuel [address] [address] [facility] [phone] [place], [place] (Work) [address] Social History Tobacco Use [...] Depression Total Score: 7 07/27/2018 7:15 AM MANAGER WINTER documented as of this encounter Care Teams Sheather Relationship Specialty Start Date End Date Rashida Pederson APRN RIVETER PORTABLE MACHINE PCP - General Nurse Practitioner 10/08/14 [address] [place], [place] [id number] Rashida Pederson APRN RIVETER PORTABLE MACHINE Assigned PCP 10/14/14 07/26/21 [address] [place], [place] [id number] documented as of this encounter
--- OUTSIDE RECORDS SUMMARY | 2022-06-02 16:05 | XMS_ITS | Encounter Summary ---
:1985 Author Organization [place] Address [address] [place] [address] Care Team Providers Name Role Phone Rashida Pederson APRN BARGE ENGINEER Primary Care Provider [phone] Rashida Pederson APRN BARGE ENGINEER Unavailable [phone] Reason for Visit Reason Comments Patient Request Encounter Details Date Type Department Care Team Description 04/19/2020 Communication - [facility] Karis Hale ent Request [facility]wifery A CNLemuel Patient Access [address] [address] [phone] Social History Tobacco Use Types Packs/Day Years Used Date Smoking Tobacco: Former Cigarettes 0.5 10 Quit : 07/19/2012 Smokeless Tobacco: Never Alcohol Use Standard Drinks/Week Comments Yes 0 (1 standard drink = 0.6 oz pure alcoho l) 1-4d 1x/wk Sex Assigned at Date Recorded Not on file documented as of this encounter Miscellaneous Notes Telephone Encounter - Miladis Chavira CMA - 04/19/2020 12:25 PM CDT Phone call to patient. Advised that per on-call CNM, patient should report to [facility] following BPP to discuss results with CNM, and have NST/Covid testing PRN. Patient verbalizes understanding and offers no further questions or concerns at this time. Telephone Encounter - Historical Provider - 04/19/2020 10:32 AM CDT Pls call pt re where she can have her covid test this afternoon? She is possibly being induced on Sun. She will be at for a BPP this afternoon. Pls call to inform and/or schedule her covid test for hopefully around that time. documented in this encounter Plan of Treatment Not on filedocumented as of this encounter Visit Diagnoses Not on filedocumented in this encounter Additional Health Concerns Assessment Noted Time PHQ-9 Depression Total Score: 7 07/27/2018 7:15 AM GLASS FURNACE TENDER documented as of this encounter Care Teams Multimedia Programmer Relationship Specialty Start Date End Date Rashida Pederson APRN BARGE ENGINEER PCP - General Nurse Practitioner 10/08/14 [address] [place] [address] Rashida Pederson APRN BARGE ENGINEER Assigned PCP 10/14/14 07/26/21 [address] [place] [address] documented as of this encounter
--- OUTSIDE RECORDS SUMMARY | 2022-06-02 16:05 | XMS_ITS | Encounter Summary ---
:1985 Author Organization [facility] Address [address] [place] [address] Care Team Providers Name Role Phone Rashida Pederson APRN BUSINESS SERVICES SPECIALIST SALES Primary Care Provider [phone] Rashida Pederson APRN BUSINESS SERVICES SPECIALIST SALES Unavailable [phone] Reason for Visit Reason Comments Medication Question Encounter Details Date Type Department Care Team Description 03/26/2020 Communication - [facility] Paula Park, [facility] Midwifery [facility] Question Patient Access [address] [id number] Social History Tobacco Use Types Packs/Day Years Used Date Smoking Tobacco: Former Cigarettes 0.5 10 Quit : 07/19/2012 Smokeless Tobacco: Never Alcohol Use Standard Drinks/Week Comments Yes 0 (1 standard drink = 0.6 oz pure alcoho l) 1-4d 1x/wk Sex Assigned at Date Recorded Not on file documented as of this encounter Miscellaneous Notes Telephone Encounter - Paula Park CNM - 03/26/2020 5:12 PM CDT Logan is having trouble finding a pharmacy that has Heparin in stock due to the COVID pandemic. She has a call into the [facility] and is awaiting their response. She is at 36w 5d gestation today. Will switch over from Lovonox to Heparin as soon as she is able to fill prescription. Will continue to take iron supplement daily. Telephone Encounter - Historical Provider - 03/26/2020 3:40 PM CDT Pt has a couple questions regarding the Heparin that was called in for her yesterday. Please call her to discuss documented in this encounter Plan of Treatment Not on filedocumented as of this encounter Visit Diagnoses Not on filedocumented in this encounter Additional Health Concerns Assessment Noted Time PHQ-9 Depression Total Score: 7 07/27/2018 7:15 AM CUSTOMER CARE COORDINATOR documented as of this encounter Care Teams Senior It Recruiter Relationship Specialty Start Date End Date Rashida Pederson APRN BUSINESS SERVICES SPECIALIST SALES PCP - General Nurse Practitioner 10/08/14 [address] [place] [address] Rashida Pederson APRN BUSINESS SERVICES SPECIALIST SALES Assigned PCP 10/14/14 07/26/21 [address] [place], [place] [id number] documented as of this encounter
--- OUTSIDE RECORDS SUMMARY | 2022-06-02 16:05 | XMS_ITS | Encounter Summary ---
:1985 Author Organization [facility] Address [address] [place] [address] Care Team Providers Name Role Phone Rashida Pederson APRN LOSS PREVENTION OFFICER Primary Care Provider [phone] Rashida Pederson APRN LOSS PREVENTION OFFICER Unavailable [phone] Encounter Details Date Type Department Care Team Description 04/18/2020 Communication - [facility] Junie Saavedra, [facility] [address] [place] [address] [place] [address] Social History Tobacco Use Types [...] Depression Total Score: 7 07/27/2018 7:15 AM CARD MAKER documented as of this encounter Care Teams Community Health Program Coordinator Relationship Specialty Start Date End Date Rashida Pederson APRN LOSS PREVENTION OFFICER PCP - General Nurse Practitioner 10/08/14 [address] [place], [place] [id number] Rashida Pederson APRN LOSS PREVENTION OFFICER Assigned PCP 10/14/14 07/26/21 [address] [place], [place] [id number] documented as of this encounter
--- OUTSIDE RECORDS SUMMARY | 2022-06-02 16:05 | XMS_ITS | Encounter Summary ---
:1985 Author Organization [facility] Address [address] [place] [address] Care Team Providers Name Role Phone Rashida Pederson APRN BIOMEDICAL INSTRUMENT TECHNICIAN Primary Care Provider [phone] Rashida Pederson APRN BIOMEDICAL INSTRUMENT TECHNICIAN Unavailable [phone] Reason for Visit Reason Comments Care Encounter Details Date Type Department Care Team Description 04/04/2020 Office [facility] Karis Hale High -risk Visit - [facility] A, [facility] , third [place] [address] [place] trimester [address] [place] [address] [phone] [address] (Work) [phone] Social History Tobacco Use Types Packs/Day Years [...] Sign Reading Time Taken Comments Blood Pressure 124/76 04/04/2020 11:24 AM CDT Pulse 104 04/04/2020 11:24 AM CDT Temperature - - Respiratory Rate - - Oxygen Saturation - - Inhaled Oxygen Concentration - - Weight 119.5 kg (263 lb 8 oz) 04/04/2020 11:24 AM CDT Height 167.6 cm (5' 6) 04/04/2020 11:24 AM CDT Body Mass Index 42.53 04/04/2020 11:24 AM CDT documented in this encounter Progress Notes Karis Hale CNM - 04/04/2020 11:20 AM CDT Logan is here alone today. Feeling well. Yesterday had UCs with walking and using breast pump. Notes normal FM. Stopped working and on maternity leave now; keeping busy readying for baby's arrival. Hoping to avoid induction; looking at EBB and will consider acupuncture. Started Heparin last Wednesday03/29/2020. Desires VE today. Reviewed warning s/sx and reasons to call. RTC 1 week. documented in this encounter Miscellaneous Notes Patient Instructions - HE - Karis Hale CNM - 04/04/2020 11:20 AM CDT You might find an acupunturist who specializes in related concerns and call ahead to get afeel for experience and what to expect from that provider. There are a few in the [facility] especially noted for their work with women. ACUPUNCTURE: 1.) (Multiple CNMs) Felix Decker [facility] [address] [place] [address] [email or web address] 2.) (Multiple CNMs) Carli Ferguson [facility] [place] [address] [place], [place] [id number] [email or web address] 3.) (AO) Leia [facility] [address] [place], [place] [id number] [email or web address] 4.) (Multiple CNMs) Marcia Martin [facility] [address] [place] [address] [email or web address] 5.) (VH) [facility] [address] [place] [address] [email or web address] (Sliding fee scale) 6.) (BZ) [facility] [place] [address] [facility], [address] [place] [address] [email or web address] 7.) (BZ) [address], [address] [place] [address] [email or web address] 8.) (AJ) Nikky Clark [facility] [address] [place] [address] [email or web address] 9.) [facility] [phone] Ext. 1 to schedule an appointment. [address] [place] [address] [email or web address] The [facility] is an inexpensive way to invest in your health. Supervised by our faculty, patients receive high-quality treatment from 3rd- and 4th-year interns. In return, patients assist interns in gaining valuable first- hand clinical experience. Treatments may include acupuncture, herbal medicine, Tuina massage, dietary recommendations, and even Qi Gong. Faculty members carefully advise and review patient diagnoses, prescriptions, and follow-up visits to ensure the most effective treatments. Treatments from interns are generally $36 per acupuncture session, but a coupon is available here that may simply be referenced or printed out and presented at the clinic solutions sales executive desk for a $18 introductory treatment. Interns are available Wednesday- 8:30 a.m. to 9:00 p.m. and Wednesday-Wednesday 8:30 a.m. to 5:30 p.m. Prices and offerings subject to change. 10.) [facility] [address] [place] [address] p: [phone] [email or web address] [facility] is an integrative health clinic of [facility]. The clinic is located on the [facility] in [place], [place]. We believe integrative health care focuses on the importance of the relationship between healthcare provider and patient. It is informed by evidence, and makes use of all appropriate therapeutic approaches, healthcare professionals and disciplines to achieve optimal healing and wellbeing. The evidence shows that collaboration among and integration between multiple healthcare disciplines are the best ways to deliver care and that patient outcomes are better as a result. Our goal is to help our patients achieve optimum health, healing and well-being. Our patients are seen by faculty clinicians. For career information specialist, our faculty clinicians are assisted by upper-trimester students of [facility]. Our clinical services include chiropractic, acupuncture, Estonian herbal medicine, massage therapy, naturopathic medicine and physical therapy services. 11.) [address] [facility] [address] [email or web address] Advanced students from the [employer] and [employer] [employer] ([employer]), supervisedby a Wet Process Assistant Head Miller and Nurse Practitioner will be offering community style acupuncture at [facility] [employer] at no cost. We will have one to two student practitioner per week. This service is by appointment only. documented in this encounter Plan of Treatment Not on filedocumented as of this encounter Visit Diagnoses Diagnosis High-risk , third trimester documented in this encounter Additional Health Concerns Assessment Noted Time PHQ-9 Depression Total Score: 7 07/27/2018 7:15 AM DIRECTOR BLOOD BANK documented as of this encounter Care Teams Paper Wrapping Machine Operator Relationship Specialty Start Date End Date Rashida Pederson APRN CNP PCP - General Nurse Practitioner 10/08/14 [address] [place] [address] Rashida Pederson APRN CNP Assigned PCP 10/14/14 07/26/21 [address] [place] [address] documented as of this encounter
--- OUTSIDE RECORDS SUMMARY | 2022-06-02 16:05 | XMS_ITS | Encounter Summary ---
:1985 Author Organization [facility] Address [address] [place] [address] Care Team Providers Name Role Phone Rashida Pederson APRN DIGITAL CONTROLS TECHNICAL OFFICER Primary Care Provider [phone] Rashida Pederson APRN DIGITAL CONTROLS TECHNICAL OFFICER Unavailable [phone] Reason for Visit Reason Comments Non Stress Test Encounter Details Date Type Department Care Team Description 04/19/2020 Hospital Encounter [facility] Paula Park CNM [address] [address] [place], [place] [phone] (Wo rk) [address] [phone] Social History Tobacco Use Types Packs/Day Years Used Date Smoking Tobacco: Former Cigarettes 0.5 10 Quit : 07/19/2012 Smokeless Tobacco: Never Alcohol Use Standard Drinks/Week Comments Yes 0 (1 standard drink = 0.6 oz pure alcoho l) 1-4d 1x/wk Sex Assigned at Date Recorded Not on file documented as of this encounter Discharge Summaries Paula Park CNM - 04/19/2020 3:07 PM CDT Outpatient/Triage Note: Patient Name: Logan Sandoval : 1985 Assessment: @ 40w1d here for evaluation of NST after BPP at term due to high BMI and possible elective IOL Plan: -After discussion of risks and benefits of elective IOL for high BMI pt would prefer to wait until 41 weeks expectant management at this time. She is pursuing alternative methods such as evening of primrose oil and menagerie caretaker to try and get into labor. - Discharge to home undelivered. Reviewed warning signs including decreased movement, leaking of fluid, vaginal bleeding, or signs of labor. Reviewed how to contact on-call CNM. Follow-up in clinic with CNM as scheduled or sooner as needed. All questions answered. Agrees with plan. Subjective: Logan Sandoval is a 34 y.o. at 40 1/7 weeks, with an EDC of 04/18/20 who presented to [facility] for evaluation of NST. Denies leaking of fluid, bleeding, or changes in movement. Wants to wait until 41 weeks to consider elective IOL, expectant management until then. Will plan to repeat BPP at 41 weeks, NST in clinic and follow up with CNM to discuss plans for elective IOL if needed at 41+ weeks. Objective: Vital signs: BP (!) 138/93 (Patient Position: Semi-cordon, Cuff Size: Adult Regular) Pulse (!) 108 Temp 98.2 ??F (36.8 ??C) (Oral) Resp 16 LMP 07/13/2019 (Exact Date) FHR: category I tracing with accels Uterine contractions: irreg, mild Temp: [98.2 ??F (36.8 ??C)] 98.2 ??F (36.8 ??C) Heart Rate: [108] 108 Resp: [16] 16 BP: (138)/(93) 138/93 No intake or output data in the 24 hours ending 04/19/20 1508 Results: Reactive NST Provider:Paula Park DNP,LOAN DOCUMENTS CLOSER,ABDOUL TT with patient 0mn FHR strip reviewed remotely, patient counseled over the phone >50% time spentcounseling. documented in this encounter Medications at Time of Discharge [...] for anxiety documented as of this encounter Progress Notes Amelia Chatterjee RN - 04/19/2020 3:15 PM CDT NST reactive, BPP 03/23, and repeat BP WNL. Results called to Lemuel Park CNM. Pt also does not wish to induce this weekend for pre- BMI as Shannan Saavedra discussed with pt in the last couple days. Pt spoke to Lemuel Park from the pt phone and desires to be seen in clinic by the midwives next week and then discuss induction for the 41st week. It was decided not to Covid test at this time. Pt plans to call the midwives if she has any concerns about baby's activity. D/C instructions reviewed with pt and d/c to home. Amelia Chatterjee Amelia Chatterjee RN - 04/19/2020 2:15 PM CDT EFM for NST placed at 1413. Amelia Chatterjee documented in this encounter Plan of Treatment Not on filedocumented as of this encounter Procedures Procedure Name Priority Date/Time Associated Diagnosis Comme nts NON-STRESS TEST - HIM SCAN 04/19/2020 documented in this encounter Results NON-STRESS TEST - HIM SCAN (04/19/2020) Narrative This result has an attachment that is no t available. Historical Provider PROCEDURES documented in this encounter Visit Diagnoses Not on filedocumented in this encounter Additional Health Concerns Assessment Noted Time PHQ-9 Depression Total Score: 7 07/27/2018 7:15 AM SECOND HELPER documented as of this encounter Care Teams Granite Cutter Apprentice Relationship Specialty Start Date End Date Rashida Pederson APRN DIGITAL CONTROLS TECHNICAL OFFICER PCP - General Nurse Practitioner 10/08/14 [address] [place], [place] [id number] Rashida Pederson APRN DIGITAL CONTROLS TECHNICAL OFFICER Assigned PCP 10/14/14 07/26/21 [address] [place], [place] [id number] documented as of this encounter
--- OUTSIDE RECORDS SUMMARY | 2022-06-02 16:05 | XMS_ITS | Encounter Summary ---
:1985 Author Organization [facility] Address [address] [place] [address] Care Team Providers Name Role Phone Rashida Pederson APRN SOFTWARE DEVELOPMENT SPECIALIST Primary Care Provider [phone] Rashida Pederson APRN SOFTWARE DEVELOPMENT SPECIALIST Unavailable [phone] Reason for Visit Reason Comments Care 40W5D Encounter Details Date Type Department Care Team Description 04/23/2020 Office [facility] , third trimester; Visit - [facility] Paty Briseno ed BP without diagnosis of hypertension; Diamond Mcgee CNM History of pulmonary embolism; [address] [facility] [facility] for venous thromboembolism (VTE) Drive [address] [place], [place] [address] [place], [place] [phone] [address] (Work) [phone] Social History Tobacco Use Types Packs/Day Years [...] Sign Reading Time Taken Comments Blood Pressure 130/84 04/23/2020 2:46 PM CDT Pulse 106 04/23/2020 2:46 PM CDT Temperature - - Respiratory Rate - - Oxygen Saturation - - Inhaled Oxygen Concentration - - Weight 119.7 kg (264 lb) 04/23/2020 2:46 PM CDT Height 167.6 cm (5' 6) 04/23/2020 2:46 PM CDT Body Mass Index 42.61 04/23/2020 2:46 PM CDT documented in this encounter Progress Notes Paty Lewis CNM - 04/23/2020 2:40 PM CDT Logan Sandoval is here for MELISSA at 40w5d. Following up today in clinic for BP check. She was noted tohave one mildly elevated BP in triage on 04/19 (138/93) which she feels was related to anxiety. Repeatin triage was normal. She declined a triage visit for a repeat BP check on 04/21 -please see phone note. She did obtain a BP reading yesterday and it was 117/91 with a regular adult cuff (she used a family members cuff). She sent the reading in through [employer] yesterday and reported that she normally has her BP checked with a large cuff in clinic so feels it was inaccurate. Today her BP is 130/84. Discussed although her BP is mildly elevated from her baseline, it is not diagnostic of gHTN until she has one more elevated BP reading with an appropriately sized cuff. Discussed obtaining HELLP panel today and she agrees. Denies sxs of preeclampsia: no GOLDEN, visual changes, N/V, epigastirc pain, or increased swelling. Reports movement is normal, active. No labor signs,no regular contractions, water l eaking, or bleeding. Discussed strict movement counts, alerting us to changes in movement as well as signs of preeclampsia. Offered IOL at 41 weeks and she accepts this. IOL set for at 0730 at [facility]. Plan for on-call CNM to make a plan with patient. Likely needs ripening basedon previous exams. COVID testing ordered. documented in this encounter Plan of Treatment Not on filedocumented as of this encounter Procedures Procedure Name Priority Date/Time Associated Comments Diagnosis URIC ACID Routine 04/23/2020 3:06 PM Results f or this CDT procedure are i n the results section. INR Routine 04/23/2020 3:06 PM Results f or this CDT procedure are i n the results section. PROTEIN RANDOM URINE Routine 04/23/2020 3:06 PM R esults for this CDT procedure are i n the results section. PARTIAL THROMBOPLASTIN Routine 04/23/2020 3:06 PM Results for this TIME CDT procedure are i n the results section. CREATININE Routine 04/23/2020 3:06 PM Results f or this CDT procedure are i n the results section. AST Routine 04/23/2020 3:06 PM Results f or this CDT procedure are i n the results section. ALT Routine 04/23/2020 3:06 PM Results f or this CDT procedure are i n the results section. CBC WITH PLATELETS Routine 04/23/2020 3:06 PM Res ults for this CDT procedure are i n the results section. documented in this encounter Results (ABNORMAL) Creatinine (04/23/2020 3:06 PM CDT) Analysis Performed At Patho logist Time Signature Creatinine 0.54 (L) 0.60 - 04/23/2020 1.10 mg/dL 6:48 PM CDT GFR Estimate If >60 >60 04/23/2020 Black mL/min/1.7 6:48 PM CDT 3m2 GFR Estimate >60 >60 04/23/2020 mL/min/1.7 6:48 PM CDT 3m2 Specimen Anatomical Collection Method / Collection Time Recei merry Time (Source) Location / Volume Laterality Blood specimen Venipuncture / 04/23/2020 3:06 04/23/20 20 6:12 (specimen) Unknown PM CDT PM CDT [facility] - BLOOD ORDERABLES AST (04/23/2020 3:06 PM CDT) athologist Signature AST 11 0 - 40 U/L 04/23/2020 6:48 PM CDT Specimen Anatomical Collection Method / Collection Time Recei merry Time (Source) Location / Volume Laterality Blood specimen Venipuncture / 04/23/2020 3:06 04/23/20 20 6:12 (specimen) Unknown PM CDT PM CDT Pat[facility] - BLOOD ORDERABLES ALT (04/23/2020 3:06 PM CDT) athologist Signature ALT <9 0 - 45 U/L 04/23/2020 6:48 PM CDT Specimen Anatomical Collection Method / Collection Time Recei merry Time (Source) Location / Volume Laterality Blood specimen Venipuncture / 04/23/2020 3:06 04/23/20 20 6:12 (specimen) Unknown PM CDT PM CDT Pat[facility] - BLOOD ORDERABLES Uric acid (04/23/2020 3:06 PM CDT) athologist Signature Uric Acid 5.3 2.0 - 7.5 04/23/2020 6:50 mg/dL PM CDT Specimen Anatomical Collection Method / Collection Time Recei merry Time (Source) Location / Volume Laterality Blood specimen Venipuncture / 04/23/2020 3:06 04/23/20 20 6:12 (specimen) Unknown PM CDT PM CDT Pat[facility] - BLOOD ORDERABLES Protein random urine (04/23/2020 3:06 PM CDT) athologist Signature Protein, Random 15 mg/dL 04/23/2020 Urine 6:46 PM CDT Creatinine, 147.0 mg/dL 04/23/2020 Urine 6:46 PM CDT Protein/Creat 0.10 04/23/2020 Ratio, Random 6:46 PM CDT UR Specimen Anatomical Collection Method Collection Time Receive d Time (Source) Location / / Volume Laterality Urine specimen Non-blood 04/23/2020 3:06 PM 020 6:13 (specimen) Collection / CDT PM CDT Unknown Narrative 04/23/2020 6:46 PM CDT The reference ranges have not been established for protein, creatinine and the protein/crea tinine ratio in random urines. ??The results should b e integrated into the clinical context for interpreta tion. Paty [facility] - URINE ORDERABLES CBC with platelets (04/23/2020 3:06 PM CDT) athologist Signature WBC 9.4 4.0 - 11.0 04/23/2020 thou/uL 6:27 PM CDT RBC Count 4.41 3.80 - 04/23/2020 5.40 6:27 PM CDT mill/uL Hemoglobin 12.9 12.0 - 04/23/2020 16.0 g/dL 6:27 PM CDT Hematocrit 38.8 35.0 - 04/23/2020 47.0 % 6:27 PM CDT MCV 88 80 - 100 04/23/2020 fL 6:27 PM CDT MCH 29.3 27.0 - 04/23/2020 34.0 pg 6:27 PM CDT MCHC 33.2 32.0 - 04/23/2020 36.0 g/dL 6:27 PM CDT RDW 13.0 11.0 - 04/23/2020 14.5 % 6:27 PM CDT Platelet Count 183 140 - 440 04/23/2020 thou/uL 6:27 PM CDT Mean Platelet 10.9 8.5 - 12.5 04/23/2020 Volume fL 6:27 PM CDT Specimen Anatomical Collection Method / Collection Time Recei merry Time (Source) Location / Volume Laterality Blood specimen Venipuncture / 04/23/2020 3:06 04/23/20 20 6:12 (specimen) Unknown PM CDT PM CDT Paty [facility] - BLOOD ORDERABLES Partial thromboplastin time (04/23/2020 3:06 PM CDT) athologist Signature aPTT 27 24 - 37 04/23/2020 seconds 6:37 PM CDT Specimen Anatomical Collection Method / Collection Time Recei merry Time (Source) Location / Volume Laterality Blood specimen Venipuncture / 04/23/2020 3:06 04/23/20 20 6:14 (specimen) Unknown PM CDT PM CDT Paty Lewis [facility] - BLOOD ORDERABLES INR (04/23/2020 3:06 PM CDT) athologist Signature INR 0.97 0.90 - 1.10 04/23/2020 6:36 PM CDT Specimen Anatomical Collection Method / Collection Time Recei merry Time (Source) Location / Volume Laterality Blood specimen Venipuncture / 04/23/2020 3:06 04/23/20 20 6:14 (specimen) Unknown PM CDT PM CDT Narrative 04/23/2020 6:36 PM CDT INR Therapeutic Ranges: Mech. Valve 2.5-3.5 Post Surg. ??2.0-3.0 DVT/PE ?2.0-3.0 Paty Lewis CNM LAB - BLOOD ORDERABLES documented in this encounter Visit Diagnoses Diagnosis High-risk , third trimester Elevated BP without diagnosis of hyperte nsion History of pulmonary embolism Personal history of pulmonary embolism At high risk for venous thromboembolism (VTE) documented in this encounter Additional Health Concerns Assessment Noted Time PHQ-9 Depression Total Score: 7 07/27/2018 7:15 AM QA SOFTWARE TESTER documented as of this encounter Care Teams Retail Management Trainee Relationship Specialty Start Date End Date Rashida Pederson APRN SOFTWARE DEVELOPMENT SPECIALIST PCP - General Nurse Practitioner 10/08/14 [address] [place] [address] Rashida Pederson APRN SOFTWARE DEVELOPMENT SPECIALIST Assigned PCP 10/14/14 07/26/21 [address] [place] [address] documented as of this encounter
--- OUTSIDE RECORDS SUMMARY | 2022-06-02 16:05 | XMS_ITS | Encounter Summary ---
:1985 Author Organization [facility] Address [address] [place] [address] Care Team Providers Name Role Phone Rashida Pederson APRN FIRE INSPECTOR Primary Care Provider Rashida Pederson APRN FIRE INSPECTOR Unavailable [phone] Encounter Details Date Type Department Care Team Description 02/08/2020 [facility] [address] [employer] [address] [place] [address] Social History Tobacco Use Types Packs/Day Years Used Date Smoking Tobacco: Former Cigarettes 0.5 10 Quit : 07/19/2012 Smokeless Tobacco: Never Alcohol Use Standard Drinks/Week Comments Yes 0 (1 standard drink = 0.6 oz pure alcoho l) 1-4d 1x/wk Sex Assigned at Date Recorded Not on file documented as of this encounter Miscellaneous Notes Letter - Historical Provider - 01/30/2021 8:27 PM CDT Letter by Temitope Fitzgerald APRN, CNM at Author: Temitope Fitzgerald APRN,ABDOUL Service: -- Author Type: -- Filed: Encounter Date: 02/08/2020 Status: (Other) February 08, 2020 Patient: Logan Sandoval Date of : 1985 Date of Visit: 02/08/2020 To Whom It May Concern: Logan Sandoval is under our care for . She has an estimated due date of 04/18/20. Please allow her to take her leave beginning at 37 weeks. If you have any questions or concerns, please don't hesitate to call. Sincerely, Electronically signed by Temitope Fitzgerald CNM, APRN, CNM documented in this encounter Plan of Treatment Not on filedocumented as of this encounter Visit Diagnoses Not on filedocumented in this encounter Additional Health Concerns Assessment Noted Time PHQ-9 Depression Total Score: 7 07/27/2018 7:15 AM SOFTWARE PROGRAM MANAGER documented as of this encounter Care Teams Central Supply Aide Relationship Specialty Start Date End Date Rashida Pederson APRN FIRE INSPECTOR PCP - General Nurse Practitioner 10/08/14 [address] [place] [address] Rashida Pederson APRN FIRE INSPECTOR Assigned PCP 10/14/14 07/26/21 [address] [place] [address] documented as of this encounter
--- OUTSIDE RECORDS SUMMARY | 2022-06-02 16:05 | XMS_ITS | Encounter Summary ---
:1985 Author Organization [facility] Address [address] [place] [address] Care Team Providers Name Role Phone Rashida Pederson APRN STUD SHEEP FARMER Primary Care Provider [phone] Rashida Pederson APRN STUD SHEEP FARMER Unavailable [phone] Encounter Details Date Type Department Care Team Description 01/04/2020 Communication - [facility] Junie Saavedra, [facility] [address] [employer] 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
--- OUTSIDE RECORDS SUMMARY | 2022-06-02 16:05 | XMS_ITS | Encounter Summary ---
:1985 Author Organization [facility] Address [address] [place] [address] Care Team Providers Name Role Phone Rashida Pederson APRN STRIKE OPERATIONS OFFICER Primary Care Provider [phone] Rashida Pederson APRN STRIKE OPERATIONS OFFICER Unavailable [phone] Reason for Visit Reason Comments Patient Request Encounter Details Date Type Department Care Team Description 04/17/2020 Communication - [facility] Junie Saavedra ient Request [facility] AABDOUL Patient Access [address] [employer] [address] [address] [phone] Social History Tobacco Use Types Packs/Day Years Used Date Smoking Tobacco: Former Cigarettes 0.5 10 Quit : 07/19/2012 Smokeless Tobacco: Never Alcohol Use Standard Drinks/Week Comments Yes 0 (1 standard drink = 0.6 oz pure alcoho l) 1-4d 1x/wk Sex Assigned at Date Recorded Not on file documented as of this encounter Miscellaneous Notes Telephone Encounter - Historical Provider - 04/17/2020 2:59 PM CDT Pt saw K for appt today and was told to schedule next week either Wed or Thursday. We only have openings on Wednesday here at [facility]. 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
--- OUTSIDE RECORDS SUMMARY | 2022-06-02 16:05 | XMS_ITS | Encounter Summary ---
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
--- OUTSIDE RECORDS SUMMARY | 2022-06-02 16:05 | XMS_ITS | Encounter Summary ---
:1985 Author Organization Advance Address [address] [place] [id number] Care Team Providers Name Role Phone Rashida Pederson APRN HIGH SPEED WARPER TENDER Primary Care Provider [phone] Rashida Pederson APRN HIGH SPEED WARPER TENDER Unavailable [phone] Reason for Visit Reason Comments Care Encounter Details Date Type Department Care Team Description 01/25/2020 Office [facility] Temitope Fitzgerald High- risk , second trimester; Visit - [facility] ZIYAD Cooley Rh negative state in antepartum period; [employer] [address] Vaginal odor; [address] BMI 39.0-39.9,adult; Drive [address] At high risk for venous thromboembolism (VTE) [facility] [address] [place], [place] [phone] (Work) [phone] Social History Tobacco Use Types Packs/Day Years [...] Sign Reading Time Taken Comments Blood Pressure 118/70 01/25/2020 12:59 PM CDT Pulse 88 01/25/2020 12:59 PM CDT Temperature - - Respiratory Rate - - Oxygen Saturation - - Inhaled Oxygen Concentration - - Weight 114.8 kg (253 lb) 01/25/2020 12:59 PM CDT Height 167.6 cm (5' 6) 01/25/2020 12:59 PM CDT Body Mass Index 40.84 01/25/2020 12:59 PM CDT documented in this encounter Progress Notes Temitope Fitzgerald, ABDOUL - 01/25/2020 1:00 PM CDT Logan is here alone today. She is feeling well. Taking Lovenox and that is going well for her. Working on [employer]. 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 They plan to have her come over a couple of weeks prior to to help teach him some comfort techniques. She is noting vaginal odor in the last few days and some more vaginal discharge that is white or clear in color. She has had bacterial vaginosis in the past. Agrees to wet prep today. She is not currently taking iron, but gave recommendations for this today. Dis cussed movement counts or assessing patterns of movement to wellbeing. Desires to use no medications for labor pain relief. Feeling active movement. GDM screening, hemoglobin, RPR today. RhoGam and antibody screen today as well. Discussed that nitrous oxide is not currently an option, but we are working to have this reinstated. Did discuss hydrotherapy and IV narcotics if needed. She would prefer metronidazole gel if her wet prep is positive for BV. Logan is washing her hands frequently, cleaning surfaces at home and limiting social contact to avoidexposure from coronavirus. Denies fever, cough, shortness of breath, any contact with anyone with coronavirus-like symptoms, travel to high risk areas. 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 Reviewed COVID19 hospital policies including limit of only one support person in the hospital (and that person is not allowed to leave and come back), no family visiting after the , early discharge if possible. Patients and visitors will be asked to wear masks and patients will be tested for COVID 19 upon admission or prior to scheduled . Reviewed our recommendation that Logan take an iron supplement daily to boost her iron stores prior to as we anticipate a shortage of blood products due to COVID19 pandemic. documented in this encounter Miscellaneous Notes Patient Instructions - HE - Temitope Fitzgerald CNM - 01/25/2020 1:00 PM CDT [facility] Nurse Midwives - Contact information: Appointment line and to get a hold of CNM in clinic Wednesday-Wednesday 8 am - 5 pm: . Thereare some clinics with early start times (1st appointment 7:40 am) and others with evening hours (last appointment 6:20 pm). Most are typically open from 8 am to 5 pm. CNM spare person answering service: . Specify your hospital of choice and leave a brief message for CNM; kingsbury machine operator will then page CNM who is spare person at your specified hospital and you should receive a call back with 15 minutes. Be sure that your ringer is audible and that you can accept blocked calls so that we can get back in touch with you! This number should be reserved for urgent needs ifduring the day, before 8 am, after 5 pm, weekends, holidays. Contact the on-call CNM with warning signs, such as: ?? vaginal bleeding ?? Vaginal discharge and itching or pain and burning during urination ?? Leg/calf pain or swelling on one side ?? severe abdominal pain ?? nausea and vomiting more than 4-5 times a day, or if you are unable to keep anything down ?? fever more than 100.4 degrees F. You are invited to Meet the [facility] Nurse-Midwives A way to tour the hospital Labor and Delivery unit and meet the midwives that attend births since you may not have the opportunity to meet them during your care. Some sessions are informal meet and greet type social hours, others address a specific concern or topic. Thursday, September 27, 2018 7-8pm [facility] Friday, November 30, 2018 7-8pm [facility], Auditorium A March 7-8pm [facility] Friday June 28, 2019 7-[address] [facility], Auditorum A Please call [phone] to register Touring the Maternity Care Center To schedule a tour at either [facility] or [facility], please do so online using the following links: [facility] - [email or web address]&p=[email or web address]& amp;vkvru=[email or web address]&ps=[email or web address]&group=37&it=1&pwl=125 [facility] - [email or web address]&[email or web address]&p=[email or web address]&a mp;avyss=010&ps=1&group=38&it=1&nqy=228 DAILY MOVEMENT COUNTING One of the best ways to keep track of a healthy baby is to notice its movements. Healthy babies are very active. However, some perfectly normal babies may sleep quietly as long as 60 minutes without moving. Babies who are having problems are sluggish and move less. Counting these movements can provideyour nurse-crown pouncer with a warning of developing problems. You should begin this counting at the around your 7th to 8th month of your (28-32 weeks) if you are ever concerned that there is less movement than normal for your baby. INSTRUCTIONS 1. If able, drink 2 glasses of fluid and lie down on one side. Put your hand on your abdomen. 2. Count 10 separate times that the baby moves. A movement may be a kick, turn, or flip of the baby. 3. Record the time you feel the 10th movement. When you count the 10th movement, stop counting. 4. If one hour passes with less than 10 movements, drink a large glass of fruit juice. Then count for the another hour. If you do not reach 10 movements, call the midwives REMEMBER ?? The baby may move all 10 times in an hour or less. ?? The baby may take up to five hours to move 10 times. ?? The important thing is to know what is normal for your baby so you can tell your nurse-crown pouncer when something different is happening. CALL THE NURSE-CABIN EQUIPMENT SUPERVISOR IF: ?? You do not feel 10 movements in five hours. ?? You have not felt the baby move all day. ?? It is taking longer and longer each day to get the 10th movement. : Your Third Trimester Changes How You Are Changing Your body is preparing for the of your baby. Some of the most common changes are listed below.If you have any questions or concerns, ask your crown pouncer. ?? You???ll gain more weight from fluids, extra blood, and fat deposits. Your baby will gain an average of an ounce per day (a half a pound a week)! ?? Your breasts will grow as your body gets ready to feed the baby. They may be more tender. You mayalso notice a slight yellow or white discharge from the nipples. ?? Discharge from your vagina may increase. This is normal. ?? You might see some skin color changes on your forehead, cheeks, or nose. Most of these will go away after you deliver. How Your Baby Is Growing Month 7 Your baby is about 14 inches long. If born prematurely (too early), your baby would likely survive with special care. Month 8 Your baby is building up body fat. Baby kicks strongly, but is getting too big to move around much. Month 9 Your baby weighs nearly 7 pounds and is about 18-20 inches long. In other words, any day now... UNDERSTANDING LABOR Going into labor before your 37th week of is called labor. labor can causeyour baby to be born too soon. This can lead to a number of health problems that may affect your baby. From 28-35 weeks, Patients are advised to be evaluated at [facility] since they have a Intensive Care Unit (NICU). -Before labor, the cervix is thick and closed. -In labor, the cervix begins to efface (thin) and dilate (open) over a short period of time Are You At Risk? Any woman can have labor. It may start for no reason. But these risk factors can increase your chances: ?? Past labor or past early ?? Smoking and drug or alcohol use during ?? Multiple fetuses (twins or more) ?? Problems with the shape of the uterus ?? Bleeding during the The Dangers of A baby born too soon may have health problems. This is because the baby didn???t have enough time tomature. The baby then is at risk of: ?? Not well ?? Having immature lungs ?? Bleeding in the brain ?? Dying Reaching Term Your goal is to get as close to term as you can before giving . The closer you get to term, thehigher your chance of having a healthy baby. Work with your healthcare provider. Together, you can take steps that may keep you from giving too early. Symptoms of Labor If you believe you???re having labor, contact the midwives right away. But contractions alone don???t mean you???re in labor. What matters more are changes in your cervix (the lower endof the uterus). Symptoms of labor include: ?? five or more contractions per hour ?? Strong & frequent contractions ?? Constant menstrual-like cramping ?? Low-back pain ? Mucous or bloody vaginal discharge ?? Bleeding or spotting in the second or third trimester Evaluating Labor Your crown pouncer will try to find out whether you???re in labor or whether you???re just having contractions.She may watch you for a few hours. The following tests may be done: ?? Pelvic exam to see if your cervix has effaced (thinned) and dilated (opened) ?? Uterine activity monitoring to detect contractions ?? monitoring to check the health of your baby ?? Ultrasound to check your baby???s size and position Caring for Yourself At Home If you have contractions but your cervix is still thick and closed, the crown pouncer may ask you to do the following at home: ?? Drink plenty of water. ?? Do fewer activities. ?? Rest in bed on your side. ?? Avoid intercourse and nipple stimulation. When to Call Your Machine Preservative Filler ?? Five or more contractions per hour ?? Bag of water breaks ?? Bleeding or spotting If You Need Hospital Care labor often requires that you have hospital care and complete bed rest. You may have an IV (intravenous) line to get fluids. And you may be given pills or an injection to help prevent contractions. Finally, you may receive medication (corticosteroids) that helps your baby???s lungs mature morequickly. Syphilis Screening: The [place] Department of Health ([facility]) provided new recommendations for screening during . If you are , [facility] recommends testing three times during your : at your first visit,28 weeks, and after delivery. Syphilis is: ?? Caused by a bacteria spread by sexual contact ?? Rising among [place] women of child-bearing age Syphilis can: ?? Be passed on to infants during or during delivery and can be life threatening ?? Be cured. There are ways to protect yourself and your babies. HEALTHY CARE: 26-30 WEEKS You are now in your last trimester of . Your baby is growing rapidly, can open and close her eyelids, sometimes get hiccups, and you'll probably feel her moving around more often. Your baby has breathing movements and is gaining about one ounce each day. You may notice heartburn and leg cramps. Your back may ache as your body gets used to your baby's size and length. Discuss your work situation with your crown pouncer or physician as needed. If you stand for long periods of time, you may need to make changes and take breaks. Pre-register after 30 weeks online at the hospital where your baby will be born [email or web address]/[email or web address]/he.asp Be aware of your baby's activity level. You may be asked to do daily movement counts. Contact your crown pouncer or physician about any decreased movement. You may have been tested for gestational diabetes today. If you are RH negative, you may have had anadditional test and a Rhogam injection. Consider receiving a Tdap vaccination to protect your baby from Pertussis/whooping cough. Baby Feeding in the Hospital: Information, Support and Resources As you prepare for the of your child, you will want to consider options for feeding your baby including breast-feeding and/or baby formula. The [place] Academy of Pediatrics recommends exclusivebreast-feeding for the first six months (although any amount of breast-feeding is beneficial). However, we also understand that breast-feeding is a personal choice and not for everyone. Whether or not you choose to breast-feed, your decision will be respected by our staff. There are numerous benefits of breast-feeding; here are a few to consider: ??? Provides antibodies to protect your baby from infections and diseases ??? The cost: formula can cost over $1,500 per year ??? Convenience, no warming up or sterilizing bottles and supplies ??? The physical contact with can make babies feel secure, warm and comforted What ever my feeding choice, what can I expect after I deliver my baby? Your baby will usually be placed wypy-fy-stku immediately following . The skin to skin contact between you and your baby will be a special and memorable time. The bonding and attachment comforts your baby and has a positive effect on baby???s brain development. ??? Having your baby ???room in?? with you also helps you start to learn your baby???s body rhythmsand sleep cycle. ??? You will also begin to learn your baby???s cues (signals) that he or she is ready to feed. When do I start to feed my baby? As soon as possible after your baby???s , you will be encouraged to begin feeding. In the firstcouple of weeks, your baby will eat often. babies usually eat at least 8 times in 24 hours. Babies fed formula usually eat at least 7 times in 24 hours. Breast-feeding tips: ??? Get comfortable and use pillows for support. ??? Have your baby at the level of your breast, facing you, ???tummy to tummy?? . ??? Touch your nipple to your baby???s lips so you baby???s mouth opens wide (rooting reflex). Aim the nipple toward the roof of your baby???s mouth. When your baby opens his or her mouth, pull your baby toward your breast to help your baby ???latch on?? to your nipple and much of the areola area. ??? Hand expressing your breast milk can assist with latching your baby to your breast, if needed. ??? Ask for help, may seem awkward or uncomfortable at first, this is normal. There are numerous resources available at [facility] Hospitals, Clinics and beyond. ??? If your goal is to exclusively breastfeed, avoid using any formula or artificial nipples (including bottles and pacifiers) while you are your baby are learning to breastfeed unless there is a medical reason. ??? Mixing and formula can interfere with how you begin building your milk supply. It can impact how you and your baby ???learn?? to together and alter the natural growth of ???good?? bacteria in your baby???s stomach. ??? Delay a pacifier or a bottle in the first few weeks until is well established. This is often around 3 weeks of age. ??? Ask your nurse to show you how to hand express. Breast milk can be kept in the refrigerator or freezer for later use. Hospital and Clinic Resources: -Schedule an appointment with a [facility] SAMUELM who is also a Front End Architect by calling [phone] -Schedule a clinic appointment with a [facility] SAMUELM with dedicated clinic hours for assistance by calling [phone]. clinic visits are at [facility] on Mondays, [facility] on Tuesdays and [facility] on . -Baby Caf?? and interested in ? Need answers [...] for the Baby Caf?? closest to you! [facility] [address] [place] [address] Wednesday: 10am-12pm [facility] [address] [place] [address] Wednesday 4-6pm [address] [address] Wednesday 10am-12:30pm [employer] [address] [place] [address] Wednesdays: 4-6pm Hmong, Qatari, and Guinean which is may be available at some sites. For more information, please contact: [email or web address] or [phone] -Attend a baby weigh in at [facility]. consultants are available to answer questions Katja: Tuesdays 1:00 - 2:00 [facility]: Mondays 1:00 - 2:00 www.Apps Genius.norin.tv -Attend one [facility] the [facility] groups at [facility] in [facility]3]. [facility] also offers one-on-one in home and in office consults. www.Quattro Wirelessfranciscan health [facility].norin.tv -Attend a Lukas Oconnor meeting. Multiple groups in several locations throughout the [facility]. The meetings are no-cost and always informative education session through Internatal Belem Oconnor Www.angelalondas.org/ Medication use while : http://toxnet.nlm.nih.gov/newtoxnet/lactmed.htm Online Resources: ??? healtheast.org/baby sign up for free online weekly e-mail ??? healtheast.org/maternity ??? Breastfeedingmadesimple.com ??? Beabloo.OncoVista Innovative Therapies (Belem Oconnor) ??? Normalfed.norin.tv ??? Womenshealth.gov/ ??? DriveABLE Assessment Centres.norin.tv Breast-feeding Supplies & Pumps: Talk to your insurance provider or WIC (Women, Infants and Children) to learn more about options available to you. Recent health insurance changes may include additional coverage for supplies and pumps. Public Health: Women, Infants and Children Nutrition program (WIC): provides breast-feeding support and education in addition to formal feeding moms. 814-CBB-6228 or http://www.health.[facility].nj.us/divs/fh/wic Family Health Home Visiting: Public Health Nurse home visits are available. Talk to your provider tosee if you qualify. Most [facility] have a program available. Additional Resources: Belem Oconnor is an international, nonprofit, nonsectarian organization offering information, education, and support to mothers who want to breast-feed their babies. Local groups offer phone help andmonthly meetings. Visit Glowforth.OncoVista Innovative Therapies or TweetMySong.com.OncoVista Innovative Therapies and us the ???Find local support?? drop down menu or click on the ???Resources?? tab. [place] Resources: 2-785-589-BABY ([phone]) toll free National Help Line trained peer counselors can help answer common breast-feeding questions by phone. Wednesday-Wednesday: Palauan/Qatari [phone] toll free, (TTY) [facility] Connection: [phone] ([phone]) Resources: Childbirth and Parenting Education: [facility]: http://university of michigan health–westAragon Pharmaceuticals/ (342) 396-IFJO Blooma: (education, yoga & wellness) www.BioTheryX Enlightened Mama: www.Castle HillenedPaxfire.norin.tv Childbirth collective: (Parent topic nights) www.childbirthcollective.org/ Hypnobabies: www.hypnobabiestwincities.norin.tv/ Hypnobirthing: Http://hypnobirthing.com/ Book Recommendations: Susan Milla's Birthing From Within--first few chapters include a new-age tone, you may prefer to skip it and keep going, because there is good stuff later. This book recommendation covers emotional preparation, but does cover coping with pain, and use of both pharmacological and nonpharmacological methods. Dr. Wilder' The Book and The Book--the book goes month- by month Womanly Art of by Belem Oconnor International Bestfeeding by Davida Nolasco--great pictures Mothering Your Nursing Toddler, by Melanie Tejada. Addresses dealing with so many of the challenging behaviors of a nursing toddler. How Weaning Happens, by Belem Oconnor. Discusses weaning at all ages, from medically necessary weaning of an infant, all the way up to age 5 (or older), with why/why not, and strategies. Very empowering book both for deciding to wean and deciding not to. [place] [employer] Nurse-Midwives (ACNM) http://www.crown pouncer.org/; look at the informational handouts at http://www.crown pouncer.org/Chugu-Wbzq-Jleuz www.mymidwife.org Mother to Baby (Medication and Herbal guidance in ): http://www.mothertobaby.org Toll-Free Hotline: 291.358.9894 LactMed (Medication use while ): http://toxnet.nlm.nih.gov/newtoxnet/lactmed.htm Women's Health.gov: http://www.womenshealth.gov/a-z-topics/index.html [place] association - http://americanpregnancy.org Centering (group care option): http://centeringhealthcare.org Information about doulas: Childbirth collective: http://www.childbirthcollective.org/ Doulas of [place] (CARRI): www.carri.org Foursquare [facility] supervisor dry cleaning project: http://twincitiesdoulaproject.com/ Latex Dipper and Family Education (ECFE): ECFE offers parents hands-on learning experiences that will nourish a lifetime of teachable moments. http://ecfe.info/ecfe-home/ October www.PhotoFix UK.norin.tv FDA - Nutrition www.mypyramid.gov Under For Consumers, click on and women. Centers for Disease Control and Prevention (CDC) - Vaccines : http://www.cdc.gov/vaccines/ When researching information on the web, question the validity of websites. The KRAFTWERK .gov, .RegeneMed and.org tend to be more reliable information. If there are a lot of advertisements, be cautious of theinformation provided. Stay away from blogs and chat rooms please! Virtual Support: During this time of isolation, families need even more community! Here are some area organizations offering virtual support groups for : ??? [facility] Cafe Support Group, Tuesdays at 10:30 am Run by LIZ Rubin of [employer] Go to The Baby [employer] Facebook page and click on events for link https://www.[email or web address] ATE.com/events/[email or web address]/ ??? [facility] Milk Hour, at 2:30 pm Run by LIZ Mosley Go to [facility] FB page and send message to get link https://www.Bin1 ATE.com/healthfoundations/ ??? [facility] holding virtual meetings the first Wednesday of each month, 8-9 pm, and the Third Wednesday, 10 - 11 am. Go to [facility] and [place] FB page; message to get link https://www.[email or web address] ATE.com/LLLofGoldenValley/?hc_location=[facility] ??? [employer] offers a Lounge every Wednesday 12pm - 1pm, run by Harleen Robles Leader Sign up via link at BioTheryX/cbe- https://www.BioTheryX/cbe- ??? [facility] is offering virtual support groups every Wednesday, 10:30 am - 12 pm, run bynurse HILL Https://www.Bin1 ATE.com/events/[email or web address]/ Classes: ??? [employer] is offering virtual and care classes: https://wwwMM Local Foods/education-workshops ??? BirthEd childbirth and education offering virtual classes https://www.Tiantian. com/workshops documented in this encounter Plan of Treatment Not on filedocumented as of this encounter Procedures Procedure Name Priority Date/Time Associated Comments Diagnosis TREPONEMA ABS W Routine 01/25/2020 1:58 PM Result s for this REFLEX TO RPR AND CDT procedure are in TITER the results section. WET PREPARATION STAT 01/25/2020 1:58 PM Result s for this CDT procedure are i n the results section. HEMOGLOBIN Routine 01/25/2020 1:58 PM Results f or this CDT procedure are i n the results section. GLUCOSE TOLERANCE Routine 01/25/2020 1:58 PM Resu lts for this GEST SCREEN 1 HOUR CDT procedure are in the results section. ANTIBODY SCREEN - RED Routine 01/25/2020 1:58 PM Results for this CELL CDT procedure are i n the results section. documented in this encounter Results Treponema Abs w Reflex to RPR and Titer (01/25/2020 1:58 PM CDT) P athologist Signature Treponema Negative Negative 01/26/2020 Antibody Total 10:08 AM CDT Specimen Anatomical Collection Method / Collection Time Recei merry Time (Source) Location / Volume Laterality Blood specimen Venipuncture / 01/25/2020 1:58 01/25/20 20 6:31 (specimen) Unknown PM CDT PM CDT Temitope Fitzgerald APRN, CNM LAB - BLOOD ORDERABLES Wet prep (01/25/2020 1:58 PM CDT) [facility] gist Method Time Signature Yeast No yeast seen No yeast seen 01/25/2020 3:08 PM CDT Trichomonas No Trichomonas No Trichomonas 01/25/2020 seen seen 3:08 PM CDT Clue Cells No Clue cells No Clue cells 01/25/2020 seen seen 3:08 PM CDT Specimen Anatomical Collection Method Collection Time Receive d Time (Source) Location / / Volume Laterality Specimen from 01/25/2020 1:58 PM 01/25/20 3:02 genital system CDT PM CDT (specimen) Temitope Fitzgerald APRN, CNM LAB - MICRO GENERAL ORDER [facility] Antibody screen red cell (01/25/2020 1:58 PM CDT) athologist Signature Antibody Negative Negative 01/26/2020 [facility] Screen 8:21 AM CDT Specimen Anatomical Collection Method / Collection Time Recei merry Time (Source) Location / Volume Laterality Blood specimen Venipuncture / 01/25/2020 1:58 01/25/20 20 1:58 (specimen) Unknown PM CDT PM CDT Temitope Fitzgerald APRN, CNM LAB - BLOOD BANK TEST ORD ER Performing Organization Address City/State/ZIP Code Phon e Number [facility] [address] [place] [address] BLO[facility] B[facility] [address] [place] [address] Glucose tolerance gest screen 1 hour (01/25/2020 1:58 PM CDT) athologist [facility] Glu Gest 120 70 - 139 01/25/2020 Screen 1hr 50g mg/dL 2:11 PM CDT Patient Unknown 01/25/2020 Fasting > 2:11 PM CDT 8hrs? Specimen Anatomical Collection Method / Collection Time Recei merry Time (Source) Location / Volume Laterality Blood specimen Venipuncture / 01/25/2020 1:58 01/25/20 20 1:58 (specimen) Unknown PM CDT PM CDT Temitope Fitzgerald APRN, CNM LAB - BLOOD ORDERABLES (ABNORMAL) Hemoglobin (01/25/2020 1:58 PM CDT) P athologist Signature Hemoglobin 11.9 (L) 12.0 - 16.0 01/25/2020 g/dL 2:11 PM CDT Specimen Anatomical Collection Method / Collection Time Recei merry Time (Source) Location / Volume Laterality Blood specimen Venipuncture / 01/25/2020 1:58 01/25/20 20 1:58 (specimen) Unknown PM CDT PM CDT Temitope Junie Fitzgerald APRN CNM LAB - BLOOD ORDERABLES documented in this encounter Visit Diagnoses Diagnosis High-risk , second trimester Rh negative state in antepartum period 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, antepartum condition Vaginal odor Unspecified symptom associated with fema le genital organs BMI 39.0-39.9,adult Body Mass Index 39.0-39.9, adult At high risk for venous thromboembolism (VTE) documented in this encounter Additional Health Concerns Assessment Noted Time PHQ-9 Depression Total Score: 7 07/27/2018 7:15 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
--- OUTSIDE RECORDS SUMMARY | 2022-06-02 16:05 | XMS_ITS | Encounter Summary ---
:1985 Author Organization [place] Address [address] [place] [id number] Care Team Providers Name Role Phone Rashida Pederson APRN CLEANER WINDOW Primary Care Provider [phone] Rashida Pederson APRN CLEANER WINDOW Unavailable [phone] Encounter Details Date Type Department Care Team Description 04/17/2020 Communication - [facility] Junie Saavedra, [facility] [address] [place] [address] [place] [address] Social History Tobacco Use Types [...] Depression Total Score: 7 07/27/2018 7:15 AM UNITIZER documented as of this encounter Care Teams Digital Tech Relationship Specialty Start Date End Date Rashida Pederson APRN CLEANER WINDOW PCP - General Nurse Practitioner 10/08/14 [address] [place], [place] [phone] Rashida Pederson APRN CLEANER WINDOW Assigned PCP 10/14/14 07/26/21 [address] [place], [place] [phone] documented as of this encounter
--- OUTSIDE RECORDS SUMMARY | 2022-06-02 16:05 | XMS_ITS | Encounter Summary ---
:1985 Author Organization [place] Address [address] [place] [address] Care Team Providers Name Role Phone Rashida Pederson APRN, CNP Primary Care Provider [phone] Rashida Pederson APRN, CNP Unavailable [phone] Encounter Details Date Type Department Care Team Description 12/14/2019 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
--- OUTSIDE RECORDS SUMMARY | 2022-06-02 16:05 | XMS_ITS | Encounter Summary ---
:1985 Author Organization [facility] Address [address] [place] [address] Care Team Providers Name Role Phone Rashida Pederson APRN GUEST SERVICE MANAGER Primary Care Provider [phone] Rashida Pederson APRN GUEST SERVICE MANAGER Unavailable [phone] Reason for Visit Reason Comments Care Encounter Details Date Type Department Care Team Description 12/19/2019 Office Visit - [facility] High Alan-ris k , second trimester; [facility] L, CNM BMI 39.0-39.9,adult; [place] [id number] [place] At high risk for venous thro mboembolism (VTE); [address] [facility] Rh negative, antepartum Drive [address] [facility] [place] [address] [place] [phone] [place], [place] (Work) [phone] Social History Tobacco Use [...] Sign Reading Time Taken Comments Blood Pressure - - Pulse - - Temperature - - Respiratory Rate - - Oxygen Saturation - - Inhaled Oxygen Concentration - - Weight 113.4 kg (250 lb) 12/19/2019 11:35 AM CDT Height 167.6 cm (5' 6) 12/19/2019 11:35 AM CDT Body Mass Index 40.35 12/19/2019 11:35 AM CDT documented in this encounter Progress Notes Neyda Phillips, ABDOUL - 12/19/2019 11:40 AM CDT The patient has been notified of following: This telephone visit will be conducted via a call between you and your physician/provider. We have found that certain health care needs can be provided without the need for a physical exam. This service lets us provide the care you need with a short phone conversation. If a prescription is necessary we can send it directly to your pharmacy. If lab work is needed we can place an order for that and you can then stop by our lab to have the test done at a later time. Telephone visits are billed at different rates depending on your insurance coverage. During this emergency period, for some insurers they may be billed the same as an in-person visit. Please reach out to your insurance provider with any questions. If during the course of the call the physician/provider feels a telephone visit is not appropriate, you will not be charged for this service. Patient has given verbal consent to a Telephone visit? Yes What phone number would you like to be contacted at? [phone] Patient would like to receive their AVS by AVS Preference: Julissa. Additional provider notes: Subjective: Logan is here for a routine visit at 22w5d. She has no concerns and is feeling well. Appetite is normal. She is trying to eat well but finding shopping for healthy food-veggies harder than before Covid and this is frustrating. She is feeling movement regularly. Patient is not at risk forpre-term labor. She is taking her Lovenox injections. Feels mood is somewhat down due to Covid. Family distancing is hard. Has a sister is a WHNP and is keeping her up to date on issues around . 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 - Objective: See flowsheet. Assessment: No diagnosis found. Plan: 1. survey ultrasound results reviewed today; ultrasound is normal. Reviewed options and indications ( BMI) for testing at 36 weeks until delivery. 2. Discussed 28 week labs/screening for gestational diabetes, anemia, and syphyllis are recommended at her next visit. Rhogam is indicated at next visit also. Also recommended TdaP when she is 27+ weeks. Handouts given on glucose testing and TdaP during . 3. Anticipatory guidance, warning signs, when to call and CNM contact information reviewed. 4. Reviewed signs & symptoms of pre-term labor, relief measures and when to call. 5. Return to clinic in Weeks 4. Neyda Phillips APRN, CNM 12/19/2019 11:45 AM Logan Sandoval is a 34 y.o. female who is being evaluated via a billable telephone visit. Phone call duration: 15 minutes Neyda Phillips APRN, CNM documented in this encounter Miscellaneous Notes Patient Instructions - HE - Neyda Phillips CNM - 12/19/2019 11:40 AM CDT [facility] Nurse Midwives - Contact information: Appointment line and to get a hold of CNM in clinic Wednesday-Wednesday 8 am - 5 pm: . Thereare some clinics with early start times (1st appointment 7:40 am) and others with evening hours (last appointment 6:20 pm). Most are typically open from 8 am to 5 pm. CNM windows phone developer answering service: . Specify your hospital of choice and leave a brief message for CNM; contour band saw operator vertical will then page CNM who is windows phone developer at your specified hospital and you should [...] F. You are invited to Meet the [facility] Nurse-Midwives A way to tour the hospital Labor and Delivery unit and meet the midwives that attend births since you may not have the opportunity to meet them during your care. Some sessions are informal meet and greet type social hours, others address a specific concern or topic. Thursday, September 27, 2018 7-8pm [facility] Friday, November 30, 2018 7-8pm [facility], Auditorium A March 7-8pm [place] Friday June 28, 2019 7-8 pm [facility], Auditorum A Please call [phone] to register UNDERSTANDING LABOR Going into labor before your 37th week of is called labor. labor can causeyour baby to be born too soon. This can lead to a number of health problems that may affect your baby. From 28-35 weeks, Patients are advised to be evaluated at [facility] [place] [place] since they have a Intensive Care Unit (NICU). -Before labor, the cervix is thick and closed. -In labor, the cervix begins to efface (thin) and dilate (open) over a short period of time Symptoms of Labor If you believe you???re having labor, contact the midwives right away. But contractions alone don???t mean you???re in labor. What matters more are changes in your cervix (the lower endof the uterus). Symptoms of labor include: ?? five or more contractions per hour ?? Strong & frequent contractions ?? Constant menstrual-like cramping ?? Low-back pain ?? Mucous or bloody vaginal discharge ?? Bleeding or spotting in the second or third trimester Evaluating Labor Your ship's officer will try to find out whether you???re [...] cervix is still thick and closed, the ship's officer may ask you to do the following at home: ?? Drink plenty of water. ?? Do fewer activities. ?? Rest in bed on your side. ?? Avoid intercourse and nipple stimulation. When to Call Your Counting Machine Operator ?? Five or more contractions per hour [...] that helps your baby???s lungs mature morequickly. Are You At Risk? Any woman can [...] may keep you from giving too early. Testing for Gestational Diabetes in [facility] Nurse-Midwives are committed to providing safe care during your . We follow the recommendations of the [place] Diabetes Association and the [place] College of Obstetricians and Gynecologists to test all women for gestational diabetes. Testing early in (if you have risk factors) and testing all women between 26-28 weeks follows local and national guidelines forcare during . Clients who feel that they cannot consent to such testing, may choose to transfer their care to our biztalk consultant obstetricians. What is the test? Eat normally on the day of the test; a diet rich in protein, whole grains, and vegetables would be best. Avoid simple sugars, white flour products and juices prior to testing. You will be asked to drink a 10 oz glucose beverage (50 gm, about the same as a can of root beer). The product is not carbonated as it has to be consumed within 5 minutes. During the next hour, you areseen for a visit, but are asked to limit your activity around the clinic. Feel free to bring a book or your computer. Any level less than 140 for this ???glucose challenge test?? is considered normal. If measured at 140 to 185, the diagnostic test, a ???3 hour glucose tolerance test?? will be conducted. If 2 or morereadings are abnormal, the diagnosis of gestational diabetes is confirmed and a referral to a professor in family studies will be made. If the level is 185 or above, this confirms the diagnosis and a referral will be made without administering the 3 hour test. A fasting blood sugar may be performed sometime in the first trimester if you have risk factors for the development of gestational diabetes such as a previous diagnosis or of a large baby or a close family relative with diabetes. What is gestational diabetes? Your body converts what you eat into glucose. In response to rising blood sugar levels it secretes insulin in order to be able to utilize that glucose. During as the placenta grows and matures, it secretes hormones that are necessary to assure baby???s growth and development, however, they also reduce the action of insulin in the mother. In some cases too much insulin is blocked (this is called ???insulin resistance?? ) and blood sugar in the mother rises above a normal level. women who have never had diabetes before but who have high blood sugar (glucose) levels during pregnancyare said to have gestational diabetes. Gestational diabetes affects about 4-7% of all pregnancies. What if I have gestational diabetes? If either of the tests for gestational diabetes show that you have this condition, a referral will be made to visit with the professor in family studies. The educator will help you to make deras food choices, count carbohydrates, monitor your blood sugar and record your levels in a journal. We ask that you bringthis diary with you at each visit. You may meet with the educator several times during the remainder of your . How gestational diabetes can affect your baby Some mothers may wonder why testing for GDM is delayed until the early part of the 3rd trimester formost women. Gestational diabetes has an impact on the baby at the time of rapid body growth. When the mother???s blood has elevated sugar levels, extra glucose crosses the placenta causing the baby to have excess weight gain (???macrosomia?? ). Some babies are too big to be born vaginally so their mother must have births. Babies of mothers with uncontrolled gestational diabetes may have difficult births that can cause trauma to the mother and in rare circumstances, babies may suffer fractures or oxygen deprivation during . They may have difficulty maintaining their own blood sugar after and they may also have trouble adapting to life outside. Recent research indicates that babies of mothers with uncontrolled or undiagnosed gestational diabetes are at risk for obesity and type 2 diabetes. Women who develop gestational diabetes are more likely to develop type 2 diabetes within 15 years after their . Additional Information The [place] College of Nurse Midwives (ACNM) provides an information sheet describing diabetes screening in : http://www.womenPicurioocs.com/mj/pdf/Second_Trimester/Gestational_Diabetes.pdf You can visit the [place] Diabetes Association website http://www.diabetes.org for additional information and to purchase their book, ???Gestational Diabetes: What to Expect?? . A brochure from the [place] College of Obstetrics and Gynecology is available at: http://www.acog.org/~/media/For%20Patients/gmi476.pdf?dmc=1&jx=[id number] 15 Testing for gestational diabetes is a critical part of your journey. Thank you for taking good care of yourself and your baby. HEALTHY CARE: 22-26 WEEKS You are finishing your second trimester. Your baby is developing rapidly. At this stage, babies havea sense of balance, can respond to touch, and are recognizing parent voices. Your baby will be moving around more now. You may notice Lasalle-Bolden contractions now, which are painless and prepare the uterus for the delivery. Nutrition: During this time, you may find that your nausea and fatigue are gone. Overall, you may feel better and have more energy than you did in your first trimester. Be sure you are getting enough calcium and iron in your diet. Your vitamins cannot supply all of the nutrients you need, so continue to eat 3-4 servings of dairy foods and 2-3 servings of meat/fish/poultry/nuts every day. Foods high in iron include: red meats, eggs, dark green vegetables, dark yellow vegetables, nuts, kidneybeans and chickpeas. Some cereals are fortified with iron, so look at the food labels for 100% of the daily requirement for iron. Discuss your work situation with your ship's officer or physician as needed. If you stand for long periods of time, you may need to make changes and take breaks. [place] for childbirth and parenting classes, including an CPR class. classes are recommended too. Childbirth and Parenting Education: LocalSense parenting center: http://Sensiotec/ (341) 963-CEEX Blooma: (education, yoga & wellness) www.Fair and Square.CarRentalsMarket Enlightened Mama: www.Radio RebelightenedxG Technology.CarRentalsMarket Childbirth collective: (Parent topic nights) www.childbirthcollective.org/ Hypnobabies: www.hypnobabiestEiger BioPharmaceuticals.CarRentalsMarket/ Hypnobirthing: Http://hypnobirthing.com/ Book Recommendations: Susan Milla's Birthing [...] deciding to wean and deciding not to. [place] College of Nurse-Midwives (ACNM) http://www.ship's officer.org/; look at the informational handouts at http://www.ship's officer.org/Rgmdi-Vkdc-Smhee www.mymidwife.org Mother to Baby (Medication and Herbal guidance in ): http://www.mothertobaby.org Toll-Free Hotline: 135.406.8536 LactMed (Medication use while ): http://toxnet.nlm.nih.gov/newtoxnet/lactmed.htm Women's Health.gov: http://www.womenshealth.gov/a-z-topics/index.html [place] association - http://americanpregnancy.org Centering (group care option): http://centeringhealthcare.org Information about doulas: Childbirth collective: http://www.childbirthcollective.org/ Doulas of [place] (CARRI): www.carri.org OneTrueFan [facility] cnc manufacturing engineer project: http://Klappo Limitedcitiesdoulaproject.com/ Associate Programmer Analyst and Family Education (ECFE): ECFE offers parents hands-on learning experiences that will nourish a lifetime of teachable moments. http://ecfe.info/ecfe-home/ October www.Nelbee.CarRentalsMarket FDA - Nutrition www.mypyramid.gov Under For Consumers, click on and women. Centers for Disease Control and Prevention (CDC) - Vaccines : http://www.cdc.gov/vaccines/ When researching information on the web, question the validity of websites. The domains .gov, .edu and.org tend to be more reliable information. If there are a lot of advertisements, be cautious of theinformation provided. Stay away from blogs and chat rooms please! How can you care for yourself at home? You can refer to the Starting Out Right book or find it online at http://www.healtheast.org/images/s tories/maternity/OidmgmJykj-Ztgosixp-Inl-Right.pdf or http://www.healtheast.org/images/stories/flipbo oks/dqaixjwukg-nhbajwrw-mvs-right/bzylrbmcga-zmxmmyry-eqg-right.html#p=8 You can sign up for a weekly parenting e-mail that gives support, tips and advice from health care team coordinator scheduler that starts with and continues through the toddler years. To register, go to www.healtheast.org/baby at any time during your . Baby Feeding in the Hospital: Information, Support and Resources As you prepare for the of your child, you will want to consider options for feeding your baby including breast-feeding and/or baby formula. The [place] Academy of Pediatrics recommends exclusivebreast-feeding for the [...] baby? Your baby will usually be placed nodq-ns-wlxy immediately following . The skin to skin [...] normal. There are numerous resources available at [facility], Clinics and beyond. ??? If your goal [...] the refrigerator or freezer for later use. Touring the [facility] To schedule a tour at either [place] or [facility], please do so online using the following links: [facility] - https://www.Exanet.CarRentalsMarket/registerlist.asp?s=6&m=303&vs=5&p=2& amp;aukwf=824&ps=1&group=37&it=1&dfp=950 [facility] - https://www.Exanet.com/registerlist.asp?s=6&m=303&vs=5&p=2&a mp;azolq=098&ps=1&group=38&it=1&vxe=362 Hospital and Clinic Resources: -Schedule an appointment with a [facility] CNM who is also a Operations Plant Attendant by calling [phone] -Schedule a clinic appointment with a [facility] CNM with dedicated clinic hours for assistance by calling [phone]. clinic visits are at [facility] on Mondays, [facility] on Tuesdays and [facility] on . Baby Caf?? and interested in ? Need [...] for the Baby Caf?? closest to you! [facility] [address] [place] [address] Wednesday: 10am-12pm [facility] [address] [place] [address] Wednesday 4-6pm [facility] [address] [place] [address] Wednesday 10am-12:30pm ong [employer] [address] [place] [address] Wednesdays: 4-6pm Hmong, Eritrean, and Azerbaijani which is may be available at some sites. For more information, please contact: Beatris Borges@[email or web address]. or [phone] -Attend a baby weigh in at [facility]. consultants are available to answer questions Katja: Tuesdays 1:00 - 2:00 [facility]: Mondays 1:00 - 2:00 www.munising memorial hospitalApakau.CarRentalsMarket -Attend one of the New Mama groups at [facility] in [facility]. [facility] also offers one-on-one in home and in office consults. www.[facility] -Attend a LeLeche League meeting. Multiple groups in several locations throughout the [facility]. The meetings are no-cost and always informative education session through Internatal Belem Oconnor Www.lllofmndas.org/ Medication use while : http://toxnet.nlm.nih.gov/newtoxnet/lactmed.htm Online Resources: ??? healtheast.org/baby sign up for free online weekly e-mail ??? healtheast.org/maternity ??? Breastfeedingmadesimple.com ??? Llli.org ([place]lem Oconnor) ??? Normalfed.com ??? Womenshealth.gov/ ??? ViOptixpgoDog Fetch.CarRentalsMarket Breast-feeding Supplies & Pumps: Talk to your insurance provider or WIC (Women, Infants and Children) to learn more about options available to you. Recent health insurance changes may include additional coverage for supplies and pumps. Public Health: Women, Infants and Children Nutrition program (WIC): provides breast-feeding support and education in addition to formal feeding moms. 729-MJT-3277 or http://www.health.[facility].us/divs/fh/wic Family Health Home Visiting: [facility] Nurse home visits are available. Talk to your provider tosee if you qualify. Most city hospital have a program available. Additional Resources: [place]nor is an international, nonprofit, nonsectarian organization offering information, education, and support to mothers who want to breast-feed their babies. Local groups offer phone help andmonthly meetings. Visit ApogeeInvent.[facility] or SpareFoot.[facility] and us the ???Find local support?? drop down menu or click on the ???Resources?? tab. [place] Resources: 8-606-558-BABY (0235) toll free National Help Line trained peer counselors can help answer common breast-feeding questions by phone. Wednesday-Wednesday: Belarusian/Eritrean toll free, (TTY) [facility] Connection: 533-337-MPEA (5488) Virtual Support: During this time of isolation, families need even more community! Here are some area organizations offering virtual support groups for : ??? [employer] Support Group, Tuesdays at 10:30 am Run by LIZ Rubin of [employer] Go to [employer] Facebook page and click on events for link https://www.facebook.com/events/638634840910014/ ??? [facility] Milk Hour, at 2:30 pm Run by LIZ Mosley Go to [facility] FB page and send message to get link https://www.Travelkhana.com.com/healthfoundations/ ??? [facility] holding virtual meetings the first Wednesday of each month, 8-9 pm, and the Third Wednesday, 10 - 11 am. Go to [facility] FB page; message to get link https://www.Travelkhana.com.CarRentalsMarket/LLLofGKasia/?hc_location=[facility] ??? [employer] offers a Lounge every Wednesday 12pm - 1pm, run by Yessenia Fernandes [facility] Leader Sign up via link at BiddingForGood/cbe- https://www.BiddingForGood/cbe- ??? [facility] is offering virtual support groups every Wednesday, 10:30 am - 12 pm, run bynurse HILL Https://www.Travelkhana.com.CarRentalsMarket/events/[email or web address]/ Classes: ??? [employer] is offering virtual and care classes: https://wwwMoodMe/education-workshops ??? 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
--- OUTSIDE RECORDS SUMMARY | 2022-06-02 16:05 | XMS_ITS | Encounter Summary ---
:1985 Author Organization [facility] Address [address] [place] [id number] Care Team Providers Name Role Phone Rashida Pederson APRN [employer] Primary Care Provider [phone] Rashida Pederson APRN [employer] Unavailable [phone] Encounter Details Date Type Department Care Team Description 11/29/2019 Hospital Encounter [facility] Paty Lewis High-risk [facility], CN , second [facility] [address] trimester [address] [place], [place] [address] [phone] [place], [place] (Work) [address] [phone] Social History Tobacco Use Types Packs/Day Years [...] Date/Time Associated Diagnosis Comme nts US OB > 14 WEEKS Routine 11/29/2019 2:56 PM High-risk pregnanc y, Results for this CDT second trimester procedure a re in the results section. documented in this encounter Results US OB > 14 Weeks (11/29/2019 2:56 PM CDT) Anatomical Region Laterality Modality Abdomen/Pelvis Other Specimen (Source) Anatomical Location Collection Method / Collectio n Time Received Time / Laterality Volume Addenda Addendum by Dmitry Mays MD on 11/29 7:46 AM CDT Addendum: Additional information provide d by the 3d technologist: Image 8:1 is the placental cord insertio n on the placenta. The placental cord insertion is normal. This completes the anatomic survey. Impressions 11/30/2019 7:46 AM CDT CONCLUSION: ?? 1. ??Single living intrauterine gestatio n. 2. ??Based on this ultrasound, composite age of 20 weeks 2 days with EDC 04/15/2020. 3. ??The umbilical cord insertion on the placenta was not visualized. 4. ??The remainder of the survey i s normal. Narrative 11/30/2019 7:46 AM CDT EXAM: US OB > = 14 WEEKS LOCATION: [facility] DATE/TIME: 11/29/2019 2:56 PM INDICATION: survey. COMPARISON: None. TECHNIQUE: Routine. FINDINGS: Single intrauterine gestation, variable presentation. Placenta is located posterior. Amniotic fluid is normal. Uterus is normal the maternal left ovary is normal with a 1.8 cm corpus luteum. The maternal right ovary is normal. ANOMALY SCREEN: ?? The umbilical cord insertion on the plac enta was not visualized. The remainder of the survey is normal. Specifically, normal posterior fossa, lateral ventricles, spine, stomach, bladder, kidneys, cord insertion on the abdomen, thr ee-vessel cord, four-chamber heart, outflow tracts , extremities, face, and diaphragms. BIOMETRY: Biparietal Diameter: 4.6 cm, 20 weeks 0 days Head Circumference: 17.7 cm, 20 weeks 1 day Abdominal Circumference: 15.3 cm, 20 wee ks 4 days Femur Length: 3.3 cm, 20 weeks 2 days Estimated Weight: 346 g EFW Percentile: 41% Heart Rate: 145 bpm Cervical Length: 3.7 Distance from Placenta to Cervix: 4.8 cm EDC by First US exam: 04/13/2020 EDC by This US exam: 04/15/2020 Composite Age by First US: 20 weeks 4 da ys Composite Age by This US: 20 weeks 2 day s Procedure Note Dmitry Mays MD - 01/23/2021Formatti ng of this note might be different from the original. EXAM: US OB > = 14 WEEKS LOCATION: [facility] DATE/TIME: 11/29/2019 2:56 PM INDICATION: survey. COMPARISON: None. TECHNIQUE: Routine. FINDINGS: Single intrauterine gestation, variable presentation. Placenta is located posterior. Amniotic fluid is normal. Uterus is normal the maternal left ovary is normal with a 1.8 cm corpus luteum. The maternal right ovary is normal. ANOMALY SCREEN: The umbilical cord insertion on the plac enta was not visualized. The remainder of the survey is normal. Specifically, normal posterior fossa, lateral ventricles, spine, stomach, bladder, kidneys, cord insertion on the abdomen, three-ve ssel cord, four-chamber heart, outflow tracts , extremities, face, and diaphragms. BIOMETRY: Biparietal Diameter: 4.6 cm, 20 weeks 0 days Head Circumference: 17.7 cm, 20 weeks 1 day Abdominal Circumference: 15.3 cm, 20 wee ks 4 days Femur Length: 3.3 cm, 20 weeks 2 days Estimated Weight: 346 g EFW Percentile: 41% Heart Rate: 145 bpm Cervical Length: 3.7 Distance from Placenta to Cervix: 4.8 cm EDC by First US exam: 04/13/2020 EDC by This US exam: 04/15/2020 Composite Age by First US: 20 weeks 4 da ys Composite Age by This US: 20 weeks 2 day s IMPRESSION: CONCLUSION: 1. Single living intrauterine gestation. 2. Based on this ultrasound, composite a ge of 20 weeks 2 days with EDC 04/15/2020. 3. The umbilical cord insertion on the p lacenta was not visualized. 4. The remainder of the survey is normal. Paty Lewis CNM IMG US ORDERABLES documented in this encounter Visit Diagnoses Diagnosis High-risk , second trimester documented in this encounter Additional Health Concerns Assessment Noted Time PHQ-9 Depression Total Score: 7 07/27/2018 7:15 AM DIDACTIC PROGRAM IN DIETETICS DIRECTOR documented as of this encounter Care Teams Dehydration Unit Operator Relationship Specialty Start Date End Date Rashida Pederson APRN [employer] PCP - General Nurse Practitioner 10/08/14 [id number] [place] [address] Rashida Pederson APRN [employer] Assigned PCP 10/14/14 07/26/21 [id number] [place] [address] documented as of this encounter
--- OUTSIDE RECORDS SUMMARY | 2022-06-02 16:05 | XMS_ITS | Encounter Summary ---
:1985 Author Organization [facility] Address [address] [place] [address] Care Team Providers Name Role Phone Rashida Pederson APRN EXAM PROCTOR Primary Care Provider [phone] Rashida Pederson APRN EXAM PROCTOR Unavailable [phone] Reason for Visit Reason Comments Induction Of Labor Encounter Details Date Type Department Care Team Description 04/25/2020 - [facility] [place] NSVD (no rmal spontaneous vaginal delivery); 04/27/2020 Encounter [facility]EL History of pulmonary embolism; Maternity Care [address] [facility] BMI 39.0-39 .9,adult; [address] At high risk for venous thromboembolism (VTE) [address] [place] [address] [phone] Social History Tobacco Use Types Packs/Day Years [...] - Inhaled Oxygen Concentration - - Weight 110.7 kg (244 lb) 04/25/2020 8:00 AM CDT Height 163.8 cm (5' 4.5) 04/25/2020 8:00 AM CDT Body Mass Index 41.24 04/25/2020 8:00 AM CDT documented in this encounter Discharge Summaries Karis Hale CNM - 04/27/2020 8:31 AM CDT OB Discharge Summary Date: 04/27/2020 Name: Logan Sandoval : 1985 Admission Date: 04/25/2020 Delivery Date: 04/26/2020 Gestational Age at Delivery: 41w1d Discharge Date: 04/27/2020 Principal Diagnosis: Problem List Items Addressed This Visit History of pulmonary embolism Relevant Medications enoxaparin ANTICOAGULANT (LOVENOX) 40 mg/0.4 mL syringe BMI 39.0-39.9,adult Relevant Medications enoxaparin ANTICOAGULANT (LOVENOX) 40 mg/0.4 mL syringe At high risk for venous thromboembolism (VTE) Relevant Medications enoxaparin ANTICOAGULANT (LOVENOX) 40 mg/0.4 mL syringe * (Principal) (normal spontaneous vaginal delivery) - Primary Relevant Medications enoxaparin ANTICOAGULANT (LOVENOX) 40 mg/0.4 mL syringe docusate sodium (COLACE) 100 MG capsule ibuprofen (ADVIL,MOTRIN) 200 MG tablet acetaminophen (TYLENOL) 325 MG tablet Other Relevant Orders Double electric breast pump for home use Referral to [facility] skilled Nurse visit for Assessment Ambulatory referral to Other Diagnosis: Conditions complicating : High Risk : at risk for VTE and on prophylaxis, BMI 39 Procedure(s) Performed: , s/p 2nd degree laceration repaired Indication for Induction: Post-dates Condition at Discharge: stable Discharge Medications: Medication List START taking these medications acetaminophen 325 MG tablet Quantity: Dose: 325-650 mg Commonly known as: TYLENOL 325-650 mg, Oral, Every 4 hours PRN docusate sodium 100 MG capsule Quantity: Dose: 100 mg Commonly known as: COLACE 100 mg, Oral, DAILY enoxaparin ANTICOAGULANT 40 mg/0.4 mL syringe Quantity: 45 Syringe Dose: 40 mg Commonly known as: LOVENOX 40 mg, Subcutaneous, Every 24 hours ibuprofen 200 MG tablet Dose: 800 mg Commonly known as: ADVIL,MOTRIN 800 mg, Oral, Every 8 hours CONTINUE taking these medications ascorbic acid 250 mg Chew Generic drug: ascorbic acid (vitamin C) No dose, route, or frequency recorded. EVENING PRIMROSE ORAL Oral famotidine 20 MG tablet Dose: 20 mg Commonly known as: PEPCID 20 mg, Oral, Takes 1 to 2 times daily Vitamin Tab Dose: 2 tablet Generic drug: prenat.vits,ant,ytb-vnkl-jonar 2 tablets, Oral, DAILY SLOW FE ORAL Dose: 1 tablet 1 tablet, Oral, DAILY Vitamin D3 50 mcg (2,000 unit) capsule Dose: 1,000 Units Generic drug: cholecalciferol (vitamin D3) 1,000 Units, Oral, 2 times daily STOP taking these medications heparin (porcine) 5,000 unit/mL (1 mL) Crtg Assessment: Day 1 , NSVB s/p 2nd degree laceration repaired. initiated Stable course. At risk for VTE with personal history pulmonary embolism, on prophylaxis through period Body mass index is 41.24 kg/m??. Plan: -Reviewed teaching. Discussed juan r care, breast care, pain management, initiation, bowel changes, return of fertility, exercises, mood changes and adjustments, blues vs. depression, sleep changes, required support. -Discharge instructions reviewed. Encouraged to call on-call CNM with any warning signs: pelvic pain, excessive perineal pain, heavy bleeding, large clots, fever, chills, abdominal tenderness, breast pain or redness, or signs/symptoms of depression. -Return to work reviewed, anticipatory guidance given on this transition. -Return of fertility reviewed. contraception plans include condoms, NESBITT and rhythm method; advised on recommendation for 12 months between pregnancies and efforts for optimal maternal healthprior. -Outpatient resources reviewed including [facility], [facility], community groups. referral provided as needed. -Offered home visit by RN. Accepted and ordered if insurance allows. -Has breast pump at home, declines Rx. -Discharge to home today. Advised CNM to call at 1 week . Follow-up at 2 and 6 weeks in clinic or sooner as needed. Patient instructed to call the CNM scheduling number for appointment at [phone]. -Continue Lovenox prophylaxis x 6 weeks , orders completed. Subjective: Logan Sandoval feels ready for discharge. She is very pleased with her experience! [place] well supported to achieve her goals for vaginal and be an active decision maker throughout. She is most focused on her family supports for and they feel very confident in their desire to discharge today. She is up and active in the room independently, is voiding and ambulating without difficulty without dizziness or calf pain. Tolerating normal diet and passing flatus. Has not yet had BM. Voiding without issue. Bleeding is light without clots. Pain is well controlled with current medications of ibuprofen. Baby boy Yves is on cue. with the assistance of the nursing staff. contraception plans include condoms. Support at home identified MIL who is farm specialist and will be their day care as well, sisters who breastfed their children and navigated traditional challenges, her mother who is in town for a short period. Logan Sandoval will have 12 weeks off from work; partner will have 6 weeks off from work. She reports no history of depression/anxiety/mental health disorder. Objective: Vitals: 04/27/20 0415 BP: 111/67 Pulse: 97 Resp: 16 Temp: SpO2: 97% Patient Vitals for the past 24 hrs: BP Temp Temp src Pulse Resp SpO2 04/27/20 0415 111/67 -- Oral 97 16 97 % 04/26/20 2300 104/59 98.4 ??F (36.9 ??C) Oral 95 18 94 % 04/26/20 1830 109/54 98.8 ??F (37.1 ??C) Oral (!) 101 18 -- 04/26/20 1436 108/64 98.2 ??F (36.8 ??C) Oral 94 18 -- General Appearance: Alert, NAD Breast Exam: Breasts soft, filling, nipples intact without bruising, creases or cracks. Abdomen: Soft, non-tender, fundus firm @ U - 1, midline, non-tender Perineum: Tissues well- approximated, mild edema. Lochia mild, rubra, non- malodorous, without clots. Legs: Mild pretibial and pedal edema, no calf tenderness, no varicosities noted. Labs Result Component Result Previous Result ABORh B NEG (04/25/2020) No Results HML ABO/Rh Typing B NEG (10/09/2019) No Results Recent labs: Hemoglobin Lab Results Component Value Date HGB 12.0 04/25/2020 Immunization History Administered Date(s) Administered ??? HPV Quadrivalent 03/21/2008 ? ? INFLUENZA,SEASONAL QUAD, PF, =/> 6months 04/21/2017, 05/05/2017 ??? Influenza, Seasonal, Inj PF IIV3 06/04/2016 ??? Influenza, inj, historic,unspecified 06/02/2018, 06/12/2019 ??? Influenza,seasonal, Inj IIV3 05/14/2012 ? ? Influenza,seasonal,quad inj =/> 6months 06/06/2015 ??? Td, Adult, Absorbed 08/16/1998 ??? Tdap 11/03/2010, 01/25/2020 Total time spent with patient:40 minutes, >50% time spent counseling and coordination of care. Provider: Karis Hale APRN, CNM Date: 04/27/2020 Time: 8:31 AM documented in this encounter Medications at Time [...] documented as of this encounter Progress Notes Fide Sims, RT - 04/26/2020 1:32 PM CDT Rt present for delivery team. Baby born, cried, and deemed stable. RT dismissed. RESPIRATORY CARE NOTE Patient Name: Logan Sandoval Today's Date: 04/26/2020 Problem List Patient Active Problem List Diagnosis ??? History of pulmonary embolism ??? BMI 39.0-39.9,adult ??? High-risk , third trimester ??? At high risk for venous thromboembolism (VTE) ??? Rh negative, antepartum ??? Meconium in amniotic fluid affecting management of mother in third trimester ??? (normal spontaneous vaginal delivery) Fide Sims LRT Diana Kilgore APRN CNM - 04/26/2020 12:52 PM CDT Labor Progress Note 04/26/2020 12:52 PM Patient Name: Logan Sandoval : 1985 Assessment: 34 y.o. at 41w1d weeks gestation IOL, currently in active??labor following 4 doses of cytotec and AROM Pitocin augmentation Cat??II??FHTs with moderate variability Elevated risk of PPH and VTE BMI >40 H/o PE MSAF Afebrile Plan: At 1200, Dr. Marin, [facility], was called to room to assess for vacuum assisted delivery or section. Care transferred to Dr. Marin at that time. CNM remained at bedside for additional support during delivery. Anticipate Subjective: Logan Sandoval has been pushing with good efforts and making slow progress. and sister in law at bedside and supportive. Objective: Vitals: 04/26/20 1151 BP: 133/68 Pulse: 98 Resp: Temp: SpO2: FHR 160 baseline, moderate variability accelerations none, variable and late decelerations Uterine contractions: every 2-3 minutes Pitocin at 8 mu Provider: Diana Kilgore APRN, CNM Total time spent with patient:50 minutes, >50% time spent counseling and coordination of care. Diana Winkler APRN CNM - 04/26/2020 11:23 AM CDT Labor Progress Note 04/26/2020 11:25 AM Patient Name: Logan Sandoval : 1985 Assessment: 34 y.o. at 41w1d weeks gestation IOL, currently in active??labor following 4 doses of cytotec and AROM Pitocin augmentation Cat??II??FHTs with moderate variability Elevated risk of PPH and VTE BMI >40 H/o PE MSAF Afebrile Plan: Dr. Marin, [facility], consulted for persistent anterior lip and late decelerations. Will continue pushing now that anterior lip is gone after patient was in hands and knees position. FSE was placed per Dr. Marin. Encourage position changes and good pushing efforts Plan to have delivery team present at delivery due to meconium stained fluid CNM support as needed Anticipate Subjective: Logan Sandoval has been feeling increasing rectal pressure and an urge to push. Patient has been in multiple positions trying to encourage rotation. and sister in law at bedside and supportive. Objective: Vitals: 04/26/20 1116 BP: Pulse: Resp: Temp: 98.5 ??F (36.9 ??C) SpO2: FHR 160 baseline, moderate variability accelerations none, variable and late decelerations Uterine contractions: every 2-4 minutes SVE: complete /0 station Pitocin at 6 mu Provider: Diana Kilgore APRN, CNM Total time spent with patient:40 minutes, >50% time spent counseling and coordination of care. Diana Kilgore APRN CNM - 04/26/2020 9:31 AM CDT Labor Progress Note 04/26/2020 9:31 AM Patient Name: Logan Sandoval : 1985 Assessment: 34 y.o. at 41w1d weeks gestation IOL, currently in active??labor following 4 doses of cytotec and AROM Pitocin augmentation Cat??II??FHTs with moderate variability Elevated risk of PPH and VTE BMI >40 H/o PE MSAF Afebrile Plan: Will reposition patient to left runners positions with use of peanut ball and allow to labor down for next 30-60 minutes then resuming pushing efforts. Patient agreeable to plan. Encourage position changes CNM support as needed Anticipate Subjective: Logan Sandoval is feeling increased rectal pressure and feels as though she is involuntarily pushing. and sister in law remain at bedside and supportive. Objective: Vitals: 04/26/20 0920 BP: Pulse: Resp: Temp: 98.1 ??F (36.7 ??C) SpO2: FHR 160 baseline, moderate variability accelerations none, late decelerations noted with pushing Uterine contractions: every 2-3 minutes SVE: 10cm/100 % effaced /0 station, attempted pushing with 5 contractions and an anterior lip was noted with pushing that was unable to be reduced. Patient had good pushing efforts. Bloody show noted with pushing. Provider: Diana Kilgore APRN, CNM Total time spent with patient:30 minutes, >50% time spent counseling and coordination of care. Diana Kilgore APRN CNM - 04/26/2020 6:45 AM CDT Labor Progress Note 04/26/2020 6:45 AM Patient Name: Logan Sandoval : 1985 Assessment: 34 y.o. at 41w1d weeks gestation IOL, currently in active labor following 4 doses of cytotec and AROM Cat II FHTs with moderate variability Elevated risk of PPH and VTE BMI >40 H/o PE MSAF Afebrile Plan: Discussed continuing laboring with movement from side to side and using peanut ball to help facilitate rotation. Patient in agreement. Encourage position changes and use of peanut ball Reassess in 2-3 hours or sooner with change in status CNM support as needed Anticipate Subjective: Logan Sandoval has been able to sleep some and denies feeling any rectal pressure at this time. Agreeable to a SVE at this time. and sister in law at bedside and supportive. Objective: Vitals: 04/26/20 0622 BP: Pulse: 100 Resp: Temp: SpO2: 96% FHR 160 baseline, moderate variability accelerations present, early decelerations Uterine contractions: every 2-4 minutes SVE: 9cm/100 % effaced /-1 station Moderate meconium stained amniotic fluid FSE was dislodged and removed, external FHR monitor working as this time. Provider: Diana Kilgore APRN, CNM Total time spent with patient:20 minutes, >50% time spent counseling and coordination of care. Payton Chen CNM - 04/26/2020 4:10 AM CDT Labor Progress Note: Patient Name: Logan Sandoval : 1985 Assessment: at 41w1d IOL, currently in active labor following 4 doses of cytotec and AROM Cat II FHTs with moderate variability Elevated risk of PPH and VTE BMI >40 H/o PE MSAF Plan: -IUPC and FSE placed in order to further monitor FHR and uterine activity. Deceleration interventions as indicated -Pt encouraged to utilize epidural [employer]ESSION[employer] button prn for discomfort -Anticipate progress and NSVB. Plan AMTSL. Will have SCN team present at delivery due to MSAF. Subjective: Logan Sandoval is feeling increased pressure with contractions. Agreeable to VE to assess progress. Logan was able to rest some following epidural placement. Pleased with decision to proceed with epidural placement. and JASON remain at bedside. Objective: Vitals: 04/26/20 0402 BP: Pulse: (!) 101 Resp: 18 Temp: 98.1 ??F (36.7 ??C) SpO2: 100% FHR: 3414-2932: 155bpm, moderate variability + accels, no decels. [id number]: baseline appears to rise to 160-165bpm following VE. Recurrent variables and late decels noted. Decision made to place internal monitors. Pt repositioned. Uterine contractions: Every 2-3 minutes, palpate mod-strong SVE: 7-8/more cervix on maternal left, stretchy, 90/-1. Caput noted. Mod MSAF noted with exam. Provider: Payton Chen APRN, CNM Date: 04/26/2020 Time: 4:10 AM Total time spent with patient:30, >50% time spent counseling and coordination of care. NT Payton Chen CNM - 04/26/2020 1:00 AM CDT Labor Progress Note: Patient Name: Logan Sandoval : 1985 Assessment: at 41w1d IOL, currently in active labor following 4 doses of cytotec and AROM Epidural in place Cat II FHTs with moderate variability and accels Elevated risk of PPH and VTE BMI >40 H/o PE Plan: -Routine CNM support & management. Encourage rest while comfortable with epidural. -Anticipate progress and NSVB. Plan AMTSL. Subjective: Logan Sandoval feels much better following epidural placement. Feeling some pressure with contractions, but feels like she will be able to rest some. and JASON remain at bedside, supportive. Objective: Vitals: 04/26/20 0342 BP: 109/59 Pulse: 97 Resp: 20 Temp: Afebrile SpO2: 100% FHR: 145bpm, moderate variability, +accels intermittent variable decels Uterine contractions: Every 2-4 minutes, palpate mod-strong SVE: 5/90/-1 Provider: Payton Chen APRN, CNM Date: 04/26/2020 Time: 4:06 AM Total time spent with patient:30, >50% time spent counseling and coordination of care. Payton Fonseca CNM - 04/25/2020 11:43 PM CDT Labor Progress Note: Patient Name: Logan Sandoval : 1985 Assessment: at 41w0d IOL, s/p 4 doses of cytotec and AROM, now in active labor Cat I FHTs Elevated risk of PPH and VTE BMI >40 H/o PE Plan: -Prep for epidural per pt request -Routine CNM support & management. -Anticipate progress and NSVB. Plan AMTSL. Subjective: Logan Sandoval is breathing through contractions. Not feeling like she is getting much of a break inbetween. Feeling fatigued and frustrated. Nitrous helped briefly. Recently received fentanyl with little effect. Agreeable to VE to assess progress. If she is not close to delivery will likely want epidural. JASON and remain at bedside. Objective: Vitals: 04/25/20 2155 BP: 118/70 Pulse: 90 Resp: 18 Temp: 97.9 ??F (36.6 ??C) SpO2: FHR: Cat I, see RN flowsheet Uterine contractions: Every 2-3 minutes, palp mod-strong SVE: 4-5/90/-1, leaking large amounts of clear fluid following AROM Provider: Payton Chen APRN, CNM Date: 04/25/2020 Time: 11:43 PM Total time spent with patient:40, >50% time spent counseling and coordination of care. NT Kristan Stewart RN - 04/25/2020 9:38 PM CDT RN at bedside for 15 minutes following Nitrous Oxide 50/50 inhalation initiation. Patient is observed using the equipment appropriately. Patient appears to be coping with labor. Patient is free of sideeffects. Kristan Stewart Date: 04/25/2020 Time: 9:39 PM Logan Sandoval, 1985, Payton Chen CNM - 04/25/2020 9:37 PM CDT Labor Progress Note: Patient Name: Logan Sandoval : 1985 Assessment: at 41w0d IOL, early labor s/p 4 doses of cytotec, cervical ripening complete Elevated risk for PPH and VTE Post dates BMI >40 H/o PE Cat I FHTs Plan: -Nitrous oxide for pain relief (ok with h/o PE per anesthesia) -Routine CNM support & management. Discussed recommendation for AROM. Pt will consider. Would like to see how well nitrous helps before making her decision. -Anticipate progress and NSVB. Subjective: Logan Sandoval is breathing through contractions. Coping well. Logan is asking about nitrous oxide use. Is feeling increasingly uncomfortable. Was in the tub for a period of time which was somewhat helpful. Pts and sister present at bedside and supportive. Objective: Vitals: 04/25/201999 BP: 127/61 Pulse: 96 Resp: 17 Temp: 97.7 ??F (36.5 ??C) SpO2: 100% FHR: Intermittent ascultation, WNL. See nursing flowsheet. Uterine contractions: Every 2-3 minutes, palpate mod-firm SVE: 390/-1, anterior, soft. Nj=11 Provider: Payton Chen APRN, CNM Date: 04/25/2020 Time: 9:37 PM Total time spent with patient:20, >50% time spent counseling and coordination of care. Coretta Carolina CNM - 04/25/2020 2:15 PM CDT Labor Progress Note: Patient Name: Logan Sandoval : 1985 Assessment: 34 y.o. at 41w0d here for cervical ripening/IOL Not in labor BMI 41 Elevated risk for VTE Elevated risk for PPH Hx of pulmonary embolism Blood Type B Neg Category 1 FHTs Has had 3 doses of oral cytotec Plan: -Continue oral cytotec for cervical ripening for up to a max of 12 doses -IV saline lock when in labor -Routine CNM support & management. Encourage position changes, ambulation, tub, rest as desired. -Anticipate progress and NSVB. -Reevaluate progress in 2-3 hours or sooner with a change in status. Subjective: Logan Sandoval states that she can feel some cramping. I'm having to pee more frequently. Good PO fluid intake. Voiding without issue. supportive at bedside. I've been resting because I knowI might have interrupted sleep tonight. Objective: Vitals: 04/25/20 1400 BP: Pulse: Resp: 14 Temp: 98 ??F (36.7 ??C) Heart Rate: Rate:Baseline Classification: Baseline Changes: No Baseline Change Cat I Variability: Variability: Marked Variability >25bpm Pattern: accels present, no decels Uterine Activity: Mode: Monitor Mode: External Contraction frequency: Contraction Frequency (min): x1 Contraction duration: Contraction Duration (sec): 80 Contraction quality: Cervical Exam: Deferred until more active. Provider: Coretta Carolina APRN, CNM Total time spent with patient:15 min, >50% time spent counseling and coordination of care. Date: 04/25/2020 Time: 2:16 PM Amelia Chatterjee RN - 04/25/2020 9:00 AM CDT Pt here for scheduled induction for postdates. Pt denies any new concerns. Amelia Chatterjee documented in this encounter H&P Notes Coretta Carolina CNM - 04/25/2020 8:31 AM CDT Date: 04/25/2020 Time: 8:31 AM Admission H&P Logan Sandoval, FERMÍN 1985, [facility] Prd PCP: Rashida Pederson CNP, Extended Emergency Contact Information [facility]: [facility] Relation: Spouse Secondary Emergency Contact: PER PT , [facility] Relation: Declined Chief Complaint: <principal problem not specified> HPI: Logan Sandoval, is a 34 y.o., at 41w0d, LMP 07/13/19, Estimated Date of Delivery: 04/18/20, confirmed by ultrasound at 20 weeks, admitted to [facility] on 04/25/2020 at 0745 secondary to: cervical ripening and IOL. History: Logan Sandoval began care with [facility] at the [facility] on 10/05/19 at 12 weeks gestation with regular care thereafter for a total of 10 visits. Her care was complicated by high BMI, obesity, at risk for V TE, history of pulmonary embolism, 1 elevated blood pressure in triage on 04/19/2020 (138/93). HELLP panel normal 04/23/2020. COVID 19 swab negative Pre- weight: 244 Lbs Pre- BMI: 41.25 Total weight gain: 0 Lbs Pertinent Labs: Admission on 04/24/2020, Discharged on 04/24/2020 Component Date Value Ref Range Status ??? COVID-19 VIRUS SPECIMEN SOURCE 04/24/2020 Nasopharyngeal Final ??? 2019-nCOV 04/24/2020 Test received-See reflex to IDDL test SARS CoV2 (COVID- 19) Virus RT-PCR Final Performed and/or entered by: [address] [id number] ??? SARS-CoV-2 Virus Specimen Source 04/24/2020 Nasopharyngeal Final ??? SARS-CoV-2 PCR Result 04/24/2020 NEGATIVE Final SARS-CoV2 (COVID-19) RNA not detected, presumed negative. ??? SARS-COV-2 PCR COMMENT 04/24/2020 Testing was performed using the Xpert Xpress SARS-CoV-2 Assay on the [employer] Final Comment: [employer]. Additional information about this Emergency Use Authorization (EUA) assay can be found via the Lab Guide. This test should be ordered for the detection of SARS-CoV-2 in individuals who meet SARS-CoV-2 clinical and/or epidemiological criteria. Test performance is unknown in asymptomatic patients. This test is for in vitro diagnostic use under the FDA EUA for laboratories certified under CLIA to perform high complexity testing. This test has not been FDA cleared or approved. A negative result does not rule out the presence of PCR inhibitors in the specimen or target RNA in concentration below the limit of detection for the assay. The possibility of a false negative should be considered if the patient's recent exposure or clinical presentation suggests COVID-19. This test was validated by the [facility]. This laboratory is certified under the Clinical Laboratory Improvement Amendments of 1988 (CLIA-88) as qualified to perform high complexity laboratory testing. Performed and/or entered by: [address] [id number] Routine on 04/23/2020 Component Date Value Ref Range Status ??? AST 04/23/2020 11 0 - 40 U/L Final ? ? ALT 04/23/2020 <9 0 - 45 U/L Final ??? INR 04/23/2020 0.97 0.90 - 1.10 Final ??? PTT 04/23/2020 27 24 - 37 seconds Final ??? WBC 04/23/2020 9.4 4.0 - 11.0 thou/uL Final ??? RBC 04/23/2020 4.41 3.80 - 5.40 mill/uL Final ??? Hemoglobin 04/23/2020 12.9 12.0 - 16.0 g/dL Final ??? Hematocrit 04/23/2020 38.8 35.0 - 47.0 % Final ??? MCV 04/23/2020 88 80 - 100 fL Final ??? MCH 04/23/2020 29.3 27.0 - 34.0 pg Final ??? MCHC 04/23/2020 33.2 32.0 - 36.0 g/dL Final ??? RDW 04/23/2020 13.0 11.0 - 14.5 % Final ??? Platelets 04/23/2020 183 140 - 440 thou/uL Final ??? MPV 04/23/2020 10.9 8.5 - 12.5 fL Final ??? Creatinine 04/23/2020 0.54* 0.60 - 1.10 mg/dL Final ? ? GFR MDRD Af Amer 04/23/2020 >60 >60 mL/min/1.73m2 Final ? ? GFR MDRD Non Af Amer 04/23/2020 >60 >60 mL/min/1.73m2 Final ??? Protein, Random Urine 04/23/2020 15 mg/dL Final ??? Creatinine, Urine 04/23/2020 147.0 mg/dL Final ??? Protein/Creatinine Ratio, Random U* 04/23/2020 0.10 Final ??? Uric Acid 04/23/2020 5.3 2.0 - 7.5 mg/dL Final Routine on 03/25/2020 Component Date Value Ref Range Status ??? Group B Strep 03/25/2020 Negative Negative Final ??? Allergic to Penicillin 03/25/2020 No Final ??? Hemoglobin 03/25/2020 12.3 12.0 - 16.0 g/dL Final Routine on 01/25/2020 Component Date Value Ref Range Status ??? Treponema Antibody (Syphilis) 01/25/2020 Negative Negative Final ??? Hemoglobin 01/25/2020 11.9* 12.0 - 16.0 g/dL Final ??? Glucose, Gestational Challenge 1hr 01/25/2020 120 70 - 139 mg/dL Final ? ? Patient Fasting > 8hrs? 01/25/2020 Unknown Final ??? HML Antibody Screen 01/25/2020 Negative Negative Final ??? Yeast Result 01/25/2020 No yeast seen No yeast seen Final ??? Trichomonas 01/25/2020 No Trichomonas seen No Trichomonas seen Final ??? Clue Cells, Wet Prep 01/25/2020 No Clue cells seen No Clue cells seen Final Lab on 10/09/2019 Component Date Value Ref Range Status ??? HIV Antigen / Antibody 10/09/2019 Negative Negative Final ??? HML ABO/Rh Typing 10/09/2019 B NEG Final ??? HML ABO/Rh Repeat Typing 10/09/2019 B NEG Final ??? Hemoglobin A1c 10/09/2019 5.4 4.2 - 6.1 % Final ??? Culture 10/09/2019 No Growth Final ??? Hepatitis B Surface Ag 10/09/2019 Negative Negative Final ??? HML Antibody Screen 10/09/2019 Negative Final ??? Treponema Antibody (Syphilis) 10/09/2019 Negative Negative Final ??? Rubella Antibody, IgG 10/09/2019 Positive Final ??? WBC 10/09/2019 8.6 4.0 - 11.0 thou/uL Final ??? RBC 10/09/2019 4.21 3.80 - 5.40 mill/uL Final ??? Hemoglobin 10/09/2019 12.8 12.0 - 16.0 g/dL Final ??? Hematocrit 10/09/2019 37.5 35.0 - 47.0 % Final ??? MCV 10/09/2019 89 80 - 100 fL Final ??? MCH 10/09/2019 30.4 27.0 - 34.0 pg Final ??? MCHC 10/09/2019 34.1 32.0 - 36.0 g/dL Final ??? RDW 10/09/2019 12.0 11.0 - 14.5 % Final ??? Platelets 10/09/2019 245 140 - 440 thou/uL Final ??? MPV 10/09/2019 9.6 8.5 - 12.5 fL Final ??? Neutrophils % 10/09/2019 71* 50 - 70 % Final ??? Lymphocytes % 10/09/2019 22 20 - 40 % Final ??? Monocytes % 10/09/2019 6 2 - 10 % Final ??? Eosinophils % 10/09/2019 1 0 - 6 % Final ??? Basophils % 10/09/2019 1 0 - 2 % Final ??? Neutrophils Absolute 10/09/2019 6.1 2.0 - 7.7 thou/uL Final ??? Lymphocytes Absolute 10/09/2019 1.9 0.8 - 4.4 thou/uL Final ??? Monocytes Absolute 10/09/2019 0.5 0.0 - 0.9 thou/uL Final ??? Eosinophils Absolute 10/09/2019 0.1 0.0 - 0.4 thou/uL Final ??? Basophils Absolute 10/09/2019 0.0 0.0 - 0.2 thou/uL Final Office Visit on 08/24/2019 Component Date Value Ref Range Status ??? Test, Urine 08/24/2019 Positive* Negative Final Pertinent Radiology: Working KEL[place]: 04/18/20 set by Karis Hale APRN, CNM on 10/05/19 based on Last Menstrual Period on 07/13/19 Based On [place] GA Dif GA User Date Last Menstrual Period on 07/13/19 (Exact Date) 04/18/20 Working Karis Hale APRN, CNM 10/05/19 Ultrasound on 11/29/19 0 Comment: FAS normal. post placenta, normal growth, 41%, normal JAYME, The placental cord insertion is normal 04/15/20 +3d 20w2d Neyda Phillips APRN, CNM 11/30/19 OB History OB History Para Term AB Living 1 SAB TAB Ectopic Multiple Live Births # Outcome Date GA Lbr Madhav/2nd Weight Sex Delivery Anes PTL Lv 1 Current Medical History Active Ambulatory (Non-Hospital) Problems Diagnosis ??? Rh negative, antepartum ??? BMI 39.0-39.9,adult ??? High-risk , third trimester ??? At high risk for venous thromboembolism (VTE) ??? History of pulmonary embolism Past Medical History: Diagnosis Date ??? Anxiety and depression ??? Pulmonary embolism (H) 07/12/2012 ??? Seizure (H) 2003 ??? Varicella childhood Surgical History She has a past surgical history that includes Appendectomy. Social History Reviewed, and she reports that she has quit smoking. Her smoking use included cigarettes. She smoked0.25 packs per day. She has never used smokeless tobacco. She reports current alcohol use of about 2.5 standard drinks of alcohol per week. She reports that she does not use drugs. Family History Reviewed, and family history includes Alcohol abuse in her father, mother, paternal aunt, and paternal uncle; Arthritis in her maternal grandmother; Cancer in her maternal grandfather; Hyperlipidemia in her father; Hypertension in her father; No Medical Problems in her maternal aunt and maternal uncle. Psychosocial Needs Social History Social History Narrative ??? Not on file Additional psychosocial needs reviewed per nursing assessment. Allergies Allergen Reactions ??? Bupropion Hcl Other (See Comments) Seizure ??? Estrogens Other (See Comments) Blood clots Medications Prior to Admission Medication Sig Dispense Refill Last Dose ??? ascorbic acid, vitamin C, (ASCORBIC ACID) 250 mg Chew 04/24/2020 at Unknown time ??? cholecalciferol, vitamin D3, (VITAMIN D3) 50 mcg (2,000 unit) capsule Take 1,000 Units by mouth 2 (two) times a day. 04/24/2020 at Unknown time ??? evening primrose oil (EVENING PRIMROSE ORAL) Take by mouth. 04/24/2020 at Unknown time ??? famotidine (PEPCID) 20 MG tablet Take 20 mg by mouth. Takes 1 to 2 times daily Past Week at Unknown time ??? ferrous sulfate (SLOW FE ORAL) Take 1 tablet by mouth daily. 04/24/2020 at Unknown time ??? heparin sodium,porcine (HEPARIN, PORCINE,) 5,000 unit/mL (1 mL) Crtg Inject 5,000 Units as directed every 12 (twelve) hours. 56 Cartridge 0 04/24/2020 at Unknown time ??? prenat.vits,ant,efo-lzgm-kfcfw ( VITAMIN) Tab Take 2 tablets by mouth daily. Past Week at Unknown time Review of Systems: A 12 point comprehensive review of systems was negative except as noted. Physical Exam: Temp: [98.2 ??F (36.8 ??C)] 98.2 ??F (36.8 ??C) Heart Rate: [113] 113 Resp: [14] 14 BP: (122)/(80) 122/80 BP 122/80 (Patient Position: Semi-cordon, Cuff Size: Adult Large) Pulse (!) 113 Temp 98.2 ??F (36.8 ??C) (Oral) Resp 14 Ht 5' 4.5 (1.638 m) Wt (!) 244 lb (110.7 kg) LMP 07/13/2019 (Exact Date) BMI 41.24 kg/m?? Height: 5 foot 4.5 inches General appearance:Pleasant, well groomed Psych: AAO x3 Skin: [place], warm & dry HEENT: unremarkable Cardiovascular: RRR, S1, S2, no extra sounds or murmurs Respiratory: breath sounds CTA bilaterally, anteriorly and posteriorly FHR:Cat I baseline 120 with mod variability, accels present, no decels note Uterine contractions:occasional SVE: FT/50%/soft/-2 vtx post Nj 4 Extremeties: min pretibial pitting edema +1 patellar DTRs bilaterally, no clonus Membrane Status: Membrane Status: Intact Cervical Exam: As above Heart Rate: (per taper machine) Uterine Activity: (per taper machine) Notable AP/IP factors to date: 1.) Blood type B negative 2.) GBS negative 3.) COVID negative 4.) 1 elevated blood pressure in triage 04/19/20 (HELLP labs WNL) 5.) Elevated BMI, obese 6.) Elevated risk for VTE (anticoagulation therapy, BMI 41) 7.) Elevated Risk for PPH (anticoagulation therapy, BMI 41) 8.) History of pulmonary embolism (on Lovenox through , switch to heparin at 36 weeks, lastdose last night on 04/24/2020.) 9.) postdates Impression: Logan Sandoval is a 34 y.o. year old at 41w0d weeks here for cervical ripening and induction of labor. Plan: [facility] Labs for PPH risk Cervical ripening with oral cytotec q 2 hrs, up to 12 doses max Encourage position changes Labor support Continuous monitoring Anticipate Spontaneous vaginal Total time with patient: 30 minutes at bedside and in the [facility] obtaining and clarifying the above history, performing the physical exam, education and counseling and developing this plan of care. >50% spent on counseling and coordination of care. Provider:Coretta Carolina APRN, CNM documented in this encounter Consult Notes Andrew Marin MD - 04/26/2020 10:57 AM CDT I was asked to see this patient in consultation by nurse cost estimating engineer Diana Kilgore. The patient is a 34-year-old primipara at 41 weeks who is being induced due to postdates. She is COVID negative and group B strep negative. She has had a pulmonary embolus years ago while on control pills so she was on an ticoagulation throughout the but has been off heparin for the last day or so. She was ripening with Cytotec starting yesterday and then was started on Pitocin and progressed to an anterior lip as of the last hour. I was consulted because there was a feeling to the anterior lip was not able to be pushed away and the patient has a strong desire to push. heart tones are in the 150s with moderate variability and occasional early decelerations. My exam shows that the patient is completely dilated and the head is at 0 station. I had her push once and she is starting to bring the baby down slightly. She does have an epidural in place. My impression is that this patient is just entering the second stage of labor and she can begin pushing. The cost estimating engineer will monitor this and I can be call back if an arrest of labor or nonreassuring tracing develops. Thank you again for the consult. Kristan Stewart RN - 04/25/2020 9:35 AM CDT RN called and spoke with Dr. Sibley (anesthesia) to discuss history of pneumothorax in 2011. Patient desires to use nitrous oxide for pain relief during labor. Dr. Sibley stated this is an approved medication at this time. Kristan Stewart documented in this encounter Miscellaneous Notes Plan of Care - Lashaun Manzo RN - 04/27/2020 2:40 PM CDT Logan is ready for discharge. Educational needs assessed and addressed Lashaun aMnzo Note - Joyce Finney RN - 04/27/2020 11:30 AM CDT This note was copied from a baby's chart. Follow up with Logan to see how feedings are going. She felt that baby was latching well during the night, some feedings without NS. RN reports that she's hearing swallows when baby is feeding. Baby is meeting his output goals and feeding 8-10 times. During visit, baby was in football hold and sleeping. Switched to laid back on the right side, baby immediately latched and fed for 10 minutes with stimulation to his feet to keep him going. Not sure if he was swallowing, but mom was cramping so probablywas transferring milk, some colostrum/spit in nipple shield after. Switched him to left breast in laid back and he latched, but didn't feed long. We discussed day 5 feeding assessment with OP [facility]clinics number to call with questions or to schedule a visit after discharge if still having problems with latching. She has a Spectra breast pump at home and will give her my cheat sheet with recommended cycle settings for getting the most milk. Will follow up as needed. She is considering staying ano ther night if his 24 hours weight loss it too much. Plan of Care - Mraivel Nicholson RN - 04/26/2020 7:17 PM CDT Patient doing well this evening. Very tired and desires rest. Encourage oncoming shift to bundle cares to the best of your ability. Note - Joyce Finney RN - 04/26/2020 4:30 PM CDT This note was copied from a baby's chart. Request by RN to assist with feeding. This is Logan's first baby and he hasn't latched since . He has a recessed chin and lower lip curls in at rest. With suck assessment on my gloved finger he hasa strong rhythmic suck, he holds his tongue in the back of his mouth. Not able to visually assess tongue placement due to tightness of lower jaw. Reviewed positioning of baby and placement of mom's hands for helping get a wide gape for a deep latch. Baby made some attempts in cross cradle with mom sandwiching the breast, but unable to sustain latch. Discussed nipple shield and how to properly apply, switching to football hold on left breast, baby able to latch and feed for > 15 minutes, swallows v isually noted and occasional audible, pointed out swallows to mom so she knows what to look for to make sure baby is eating. Discussed feeding baby 8-10 times in 24 hours when baby cues. Will follow uptomorrow before discharging. Plan of Care - Nathan Regan RN - 04/26/2020 2:44 PM CDT Problem: Knowledge Deficit Goal: Verbalizes understanding of labor plan Outcome: Progressing Goal: Patient/family/caregiver demonstrates understanding of disease process, treatment plan, medications, and discharge instructions Outcome: Progressing Problem: Labor & Delivery Goal: Manages discomfort Outcome: Progressing Goal: Patient vital signs are stable Outcome: Progressing Problem: Pain Goal: Patient's pain/discomfort is manageable Outcome: Progressing Problem: Vaginal Delivery - Recovery and Goal: Patient vitals and physical assessment findings are stable following delivery Outcome: Progressing Goal: Perineum intact without discharge or hematoma Outcome: Progressing Goal: Empties bladder Outcome: Progressing Goal: Patient will resume normal bowel function Outcome: Progressing Goal: Ambulates independently Outcome: Progressing Goal: Patient demonstrates understanding of perineal care Outcome: Progressing Problem: Breast Feeding Goal: Breasts are soft with nipple integrity intact Outcome: Progressing Goal: Effective breast feeding established Outcome: Progressing Problem: Parenting/Coping Goal: Patient/family/caregiver demonstrates positive interactions and parenting skills with baby Outcome: Progressing L&D Delivery Note - Less, Andrew Levine MD - 04/26/2020 12:54 PM CDT VAGINAL DELIVERY NOTE NAME: Logan Sandoval : 1985 PRE DELIVERY DIAGNOSIS 1) Intrauterine at 41w1d Gestational age 2) Induced labor, Single fetus Postdates POST DELIVERY DIAGNOSIS 1) Intrauterine at 41w1d Gestational age 2) Delivery of a Sex: male living infant. 3) Apgars of 8 at 1 minute, 9 at 5 minutes 4) weight unavailable at this time PROBLEM LIST: Patient Active Problem List Diagnosis ??? History of pulmonary embolism ??? BMI 39.0-39.9,adult ??? High-risk , third trimester ??? At high risk for venous thromboembolism (VTE) ??? Rh negative, antepartum ??? Meconium in amniotic fluid affecting management of mother in third trimester ??? (normal spontaneous vaginal delivery) LABS: Labs Result Component Result Previous Result ABORh B NEG (04/25/2020) No Results HML ABO/Rh Typing B NEG (10/09/2019) No Results DELIVERY METHOD: Normal spontaneous vaginal delivery EPISIOTOMY or INCISION: none PLACENTA AND CORD: Mechanism: Spontaneous 04/26/2020 12:37 PM Description: , complete, 3 vessel cord, membranes intact ESTIMATED BLOOD LOSS: Delivery QBL (mL): 250 COMPLICATIONS: none DESCRIPTION OF PROCEDURE Logan Sandoval is a 34 y.o. who presented to labor and delivery with plan for IOL due to postdates. Her antepartum course was uncomplicated. Patient progressed to complete with pitocin. I was asked to assess the labor as she was pushing for 2 and half hours. I arrived in the room approximately atnoon. There was moderate variability with an occasional late deceleration. The baby was at +2 station and with pushing she brought it out to +3 station. I felt the tracing was reassuring to continue pushing. I did discuss the option of vacuum if the tracing became nonreassuring or if maternal exhaustion set in. She wanted to continue pushing. The baby's head was then delivered. There was no nuchal cord. The remainder of the infant easily delivered over an tear. The baby was immediately evaluated by the neonatology team in attendance due to the thick meconium that was noted. They did suction the baby's mouth as I was clamping she said and cutting the cord. No gross defects were observed. The perineum was then evaluated and noted to have a 2nd degree laceration and the laceration was repairedin standard fashion, with 3-0 Rapide suture The baby stayed in the room with mother. The mother remained in labor and delivery. Sponge and sharp count is correct. Andrew Marin MD [facility] [phone] CC1: Bandt documented in this encounter Plan of Treatment Not on filedocumented as of this encounter Procedures Procedure Name Priority Date/Time Associated Diagnosis Comme nts TYPE AND SCREEN, STAT 04/25/2020 9:42 AM Resul ts for this ADULT CDT procedure are i n the results section. TREPONEMA ABS W Routine 04/25/2020 9:42 AM Result s for this REFLEX TO RPR AND CDT procedure are in TITER the results section. CBC WITH PLATELETS STAT 04/25/2020 9:42 AM Res ults for this CDT procedure are i n the results section. documented in this encounter Results Treponema Abs w Reflex to RPR and Titer (04/25/2020 9:42 AM CDT) Analysis Performed At Patho logist Time Signature Treponema Negative Negative 04/25/2020 [facility] Antibody Total 3:16 PM CDT [facility] Specimen Anatomical Collection Method / Collection Time Recei merry Time (Source) Location / Volume Laterality Blood specimen Venipuncture / 04/25/2020 9:42 04/25/20 20 (specimen) Unknown AM CDT 12:13 PM CDT Coretta Carolina CNM LAB - BLOOD ORDERABLES Performing Organization Address City/State/ZIP Code Phon e Number [place] [address] [facility] [id number] [place] [address]'[facility] LABORATORY CBC with platelets (04/25/2020 9:42 AM CDT) P athologist Signature WBC 10.9 4.0 - 11.0 04/25/2020 [facility] thou/uL 10:05 AM CDT [facility] RBC Count 4.00 3.80 - 04/25/2020 [facility] 5.40 10:05 AM CDT [facility] mill/uL [facility] Hemoglobin 12.0 12.0 - 04/25/2020 [facility] 16.0 g/dL 10:05 AM CDT [facility] Hematocrit 35.5 35.0 - 04/25/2020 [facility] 47.0 % 10:05 AM CDT [facility] MCV 89 80 - 100 04/25/2020 [facility] fL 10:05 AM CDT [facility] MCH 30.0 27.0 - 04/25/2020 [facility] 34.0 pg 10:05 AM CDT [facility] MCHC 33.8 32.0 - 04/25/2020 [facility] 36.0 g/dL 10:05 AM CDT [facility] RDW 13.0 11.0 - 04/25/2020 [facility] 14.5 % 10:05 AM CDT [facility] Platelet Count 160 140 - 440 04/25/2020 [facility] thou/uL 10:05 AM CDT [facility] Mean Platelet 10.2 8.5 - 12.5 04/25/2020 [facility] Volume fL 10:05 AM CDT [facility] Specimen Anatomical Collection Method / Collection Time Recei merry Time (Source) Location / Volume Laterality Blood specimen Venipuncture / 04/25/2020 9:42 04/25/20 20 9:51 (specimen) Unknown AM CDT AM CDT Coretta Carolina CNM LAB - BLOOD ORDERABLES Performing Organization Address City/State/ZIP Code Phon e Number [facility] [place] [address] Lab [address] [place] [place] [address] [address] [place] [address] LABORATORY TYPE AND SCREEN, ADULT (04/25/2020 9:42 AM CDT) P athologist Signature ABO/RH(D) B NEG 04/25/2020 BLOOD BANK 10:28 AM CDT Antibody Negative Negative 04/25/2020 BLOOD BANK Screen 10:28 AM CDT Specimen Anatomical Collection Method / Collection Time Recei merry Time (Source) Location / Volume Laterality Blood specimen Venipuncture / 04/25/2020 9:42 04/25/20 20 9:51 (specimen) Unknown AM CDT AM CDT Coretta Carolina CNM LAB - BLOOD BANK TEST ORDER Performing Organization Address City/State/ZIP Code Phon e Number [facility] [place] [address] [address] [place] [id number] documented in this encounter Visit Diagnoses Diagnosis (normal spontaneous vaginal deliver y) Normal delivery History of pulmonary embolism Personal history of pulmonary embolism BMI 39.0-39.9,adult Body Mass Index 39.0-39.9, adult At high risk for venous thromboembolism (VTE) documented in this encounter Additional Health Concerns Assessment Noted Time PHQ-9 Depression Total Score: 7 07/27/2018 7:15 AM 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
--- OUTSIDE RECORDS SUMMARY | 2022-06-02 16:05 | XMS_ITS | Encounter Summary ---
:1985 Author Organization [facility] Address [address] [place] [id number] Care Team Providers Name Role Phone Rashida Pederson APRN [employer] OPERATOR Primary Care Provider [phone] Rashida Pederson APRN [employer] OPERATOR Unavailable [phone] Encounter Details Date Type Department Care Team Description 04/26/2020 Anesthesia - [facility] Mary Sibley MD [address] [place] [address] [place] [address] Social History Tobacco Use Types Packs/Day Years Used Date Smoking Tobacco: Former Cigarettes 0.5 10 Quit : 07/19/2012 Smokeless Tobacco: Never Alcohol Use Standard Drinks/Week Comments Yes 0 (1 standard drink = 0.6 oz pure alcoho l) 1-4d 1x/wk Sex Assigned at Date Recorded Not on file documented as of this encounter OR Notes Anesthesia Procedure Notes - Mary Sibley MD - 04/27/2020 10:01 AM CDT Epidural Block Patient location during procedure: OB Time Called: 04/26/2020 12:15 AM Reason for Block:labor epidural Preanesthetic Checklist Completed: patient identified, risks, benefits, and alternatives discussed, timeout performed, consent obtained, airway assessed, oxygen available, suction available, emergency drugs available and handhygiene performed Procedure Patient position: sitting Prep: ChloraPrep Patient monitoring: continuous pulse oximetry, heart rate and blood pressure Approach: midline Location: L2-L3 Injection technique: KARINA saline Number of Attempts:1 Needle Needle type: Samantha Needle gauge: 18 G Catheter in Space: 5 Assessment Sensory level: No complications Additional Notes: KARINA at 7cm, taped at 12cm Anesthesia Postprocedure Evaluation - Anson Castelan MD - 04/26/2020 7:05 PM CDT Patient: Logan Sandoval * No procedures listed * Anesthesia type: No value filed. Patient location: Labor and Delivery Last vitals: No vitals data found for the desired time range. Post vital signs: stable Level of consciousness: awake and responds to simple questions Post-anesthesia pain: pain controlled Post-anesthesia nausea and vomiting: no Pulmonary: unassisted, return to baseline Cardiovascular: stable and blood pressure at baseline Hydration: adequate Anesthetic events: no QCDR Measures: ASA# 11 - Margarita-op Cardiac Arrest: ASA11B - Patient did NOT experience unanticipated cardiac arrest ASA# 12 - Margarita-op Mortality Rate: ASA12B - Patient did NOT ASA# 13 - PACU Re-Intubation Rate: NA - No ETT / LMA used for case ASA# 10 - Composite Anes Safety: ASA10A - No serious adverse event Additional Notes: Anesthesia Postprocedure Evaluation - Ulises Navarro MD - 04/26/2020 1:48 PM CDT Patient: Logan Sandoval * No procedures listed * Anesthesia type: No value filed. Patient location: Labor and Delivery Last vitals: Vitals Value Taken Time BP 121/73 04/26/2020 1:36 PM Temp 04/26/2020 1:48 PM Pulse 100 04/26/2020 1:43 PM Resp 04/26/2020 1:48 PM SpO2 98 % 04/26/2020 1:43 PM Vitals shown include unvalidated device data. Post vital signs: Level of consciousness: awake and responds to simple questions Post-anesthesia pain: pain controlled Post-anesthesia nausea and vomiting: no Pulmonary: unassisted, return to baseline Cardiovascular: stable and blood pressure at baseline Hydration: adequate Anesthetic events: no QCDR Measures: ASA# 11 - Margarita-op Cardiac Arrest: ASA11B - Patient did NOT experience unanticipated cardiac arrest ASA# 12 - Margarita-op Mortality Rate: ASA12B - Patient did NOT ASA# 13 - PACU Re-Intubation Rate: NA - No ETT / LMA used for case ASA# 10 - Composite Anes Safety: ASA10A - No serious adverse event Additional Notes: Anesthesia Preprocedure Evaluation - Mary Sibley MD - 04/26/2020 12:48 AM CDT Anesthesia Evaluation No history of anesthetic complications Airway Pulmonary - negative ROS and normal exam ROS comment: H/o PE Cardiovascular - negative ROS and normal exam Neuro/Psych - negative ROS Endo/Other (+) obesity, GI/Hepatic/Renal - negative ROS Dental - normal exam Anesthesia Plan Planned anesthetic: epidural ASA 2 Anesthetic plan and risks discussed with: patient and spouse Post-op plan: routine recovery documented in this encounter Plan of Treatment Not on filedocumented as of this encounter Visit Diagnoses Not on filedocumented in this encounter Additional Health Concerns Assessment Noted Time PHQ-9 Depression Total Score: 7 07/27/2018 7:15 AM ALIGNER documented as of this encounter Care Teams Numerologist Relationship Specialty Start Date End Date Rashida Pederson APRN [employer] OPERATOR PCP - General Nurse Practitioner 10/08/14 [id number] [place], [place] [phone] Rashida Pederson APRN [employer]E T[employer] OPERATOR Assigned PCP 10/14/14 07/26/21 [id number] [place], [place] [phone] documented as of this encounter
--- OUTSIDE RECORDS SUMMARY | 2022-06-02 16:05 | XMS_ITS | Encounter Summary ---
:1985 Author Organization [facility] Address [address] [place] [id number] Care Team Providers Name Role Phone Rashida Pederson APRN RETAIL SPECIAL EVENT ASSOCIATE Primary Care Provider [phone] Rashida Pederson APRN RETAIL SPECIAL EVENT ASSOCIATE Unavailable [phone] Reason for Visit Reason Comments Care Encounter Details Date Type Department Care Team Description [facility] , second trimester; [facility] Ruchi Hardin, History of pulmonary embolism; Orange ZIYAD SCHREIBER At high risk for venous thromboembolism (VTE) [address] [place] [phone] Social History Tobacco Use Types Packs/Day Years Used Date Smoking Tobacco: Former Cigarettes 0.5 10 Quit : 07/19/2012 Smokeless Tobacco: Never Alcohol Use Standard Drinks/Week Comments Yes 0 (1 standard drink = 0.6 oz pure alcoho l) 1-4d 1x/wk Sex Assigned at Date Recorded Not on file documented as of this encounter Progress Notes Dee Woods APRN CN - 03/08/2020 1:00 PM CDT Logan Sandoval is a 34 y.o. female who is being evaluated via a billable telephone visit. The patient has been notified of following: [...] would you like to be contacted at? [phone]-- Patient would like to receive their AVS by AVS Preference: Julissa. Additional provider notes: see below Phone call duration: 14 minutes Phone call start time: 1: 09 PM Phone call end time: 1: 23 PM Louie Haas [facility] Logan presents virtually via telephone for a routine PNV at 34w 1d. Feeling well! Anticipatory guidance given for next visit: GBS and Hgb. 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 Asking what she can do to help encourage labor/labor progress. Advised red rasp leaf tea okay- can start 1-2c/day any time, advise not taking EPO until 36w, not using breast pump until at least 38w, intercourse at the end of may be helpful, dates (the food) may help and unlikely to hurt. Advised AGAINST castor oil and blue/black cohosh at any point during . Discussed rationale behind ideally baby not being born until 38 weeks, verbalized understanding. Discussed all visits from now on will be in person in clinic. Still taking Lovenox s/t hx of DVT, aware will need to switch to Heparin around 36w (next visit). RTC 2 weeks, sooner as needed. Has CNM numbers and aware to call with any questions or concerns. Dee Woods APRN, ABDOUL, CLC 03/08/2020 1:29 PM documented in this encounter Miscellaneous Notes Patient Instructions - HE - Dee Woods APRN CNM - 03/08/2020 1:00 PM CDT [facility] Nurse Midwives - Contact information: Appointment line and to get a hold of CNM in clinic Wednesday-Wednesday 8 am - 5 pm: . Thereare some clinics with early start times (1st appointment 7:40 am) and others with evening hours (last appointment 6:20 pm). Most are typically open from 8 am to 5 pm. CNM environmental test technician answering service: . Specify your hospital of choice and leave a brief message for CNM; pipe threading machine operator will then page CNM who is environmental test technician at your specified hospital and you should [...] F. You are invited to [facility] A way to tour the hospital Labor and Delivery unit and meet the midwives in our group was postponed at the start of hospital restrictions following COVID-19. We will resume these when able and virtual options may be available in the future. Please call [phone] for ongoing updates. Touring the Maternity Care Center At this time we are offering a virtual tour of the Maternity Care Centers at both [facility] and [facility]: [facility]: https://www.[email or web address].org/Locations/[facility]/Bwimwvovq-Ewfm-Wkegql [place]: [email or web address]/overarching-care/the-birthplace/tours https://www.[email or web address]/Locations/Nqn[facility]ufMmtn-[facility]-Hospital/Ihdkqvqds-Fnpc-J enter/#virtual_tour When in person tours become available, registrations is required. To schedule a tour at either [facility] or [facility], please do so online using the following links: [facility] - [email or web address]://[email or web address]?[email or web address]&[email or web address]&[email or web address]&p=[email or web address]& amp;psicr=050&ps=1&[email or web address]&it=1&rdm=412 [facility] - https://www.[email or web address]/[email or web address]?[email or web address]&[email or web address]&[email or web address]&p=[email or web address]&a mp;zncxq=691&ps=1&group=38&it=1&xls=784 [facility]: https://[place]ps.[place].gov/divisions/ots/wzgii-nzdfqmvnd-spsonh/Pages/qfs-eaeu-mibjra.as px [facility] Free Car Seat Distribution Facilities By Appt. Address Contact Information (For appointment) \Yes [facility]\[place] Kay Velásquez)\ Yes [facility]\[address] [facility]\[place] Angela Calderón)[phone]\ Yes [facility]\[address]\[place],\[place] Patricia Roa)[phone]\[email or web address] Immunizations: http://www.cdc.gov/vaccines/schedules/yjsy-sx-fikn/child.html Depression The first weeks of caring for a baby are more than a full-time job. Although it is often a happy time, your feelings and moods may not be what you expected. Many women experience ???baby blues.?? Here are some tips to help you understand when feelings of sadness are normal, and when you should call your health care provider. What are the baby blues? As many as 3 of every 4 women will have short periods of mood swings, crying, or feeling cranky or restless during the first weeks after . These feelings can be worse when you are tired or anxious. Women who have the baby blues often say they feel like crying but don???t know why. Baby blues usually happen in the first or second week (after you give ) and last less than a week. If you are not sleeping, becoming more upset, don???t feel like you can take care of your baby, or your sadness lasts 2 weeks or more, call your health care provider. What is depression? About one in every 5 women will develop depression during the first few months that may be mild, moderate, or severe. Women who have depression may have some of these symptoms: ?? Feeling guilty ?? Not able to enjoy your baby and feeling like you are not bonding with your baby ?? Not able to sleep, even when the baby is sleeping ?? Sleeping too much and feeling too tired to get out of bed ?? Feeling overwhelmed and not able to do what you need to during the day ?? Not able to concentrate ?? Don???t feel like eating ?? Feeling like you are not normal or not yourself anymore ?? Not able to make decisions ?? Feeling like a failure as a mother ?? Feeling lonely or all alone ?? Thinking your baby might be better off without you If you have any of these symptoms, call your health care provider! Which symptoms of depression are dangerous? Sometimes a woman with depression will have thoughts of harming herself or her baby. If you find yourself thinking about hurting yourself or your baby, call your health care provider immediately. MOTHERHOOD: THE EARLY DAYS You prepare for the of your baby for many months during , and then the first months at home after your baby is born can be a quiet, gentle time of getting to know this new person who hascome to live in your home. But for most women it is not all quiet or sweet. And for some women it epifanio very hard time. What Can I Expect in the First Few Months After the Baby Comes? New mothers and their families face many challenges in the first few months: ?? Your body and your hormones have to get back to normal. ?? You and the baby will be learning to breastfeed. ?? Babies only sleep a few hours at a time. The entire family will have a hard time getting enough sleep. ?? You and your family need to learn how to parent this new family member. ?? If you have a partner, you have to figure out how to stay together as a couple and maybe even start to have sex again. ?? You may have to figure out how to keep from getting again right away. ?? You may need to return to work and find day care. How Long Will it Take for My Body to Get Back to Normal? Some changes will occur quickly. Others will not occur as quickly. ?? Your uterus, cervix, and vagina will all shrink to their non size in about 2 weeks. Your vagina may be tender and dry for a few months--especially if you are . ?? If you had stitches or hemorrhoids, your ?bottom? will be sore for 2 weeks or more. ?? For some women who have problems urinating, it can take several months for you to be able to holdyour urine when you cough or sneeze or suddenly picker and packer something heavy. ?? Your breast milk will ?come in? 2 to 3 days after the of your baby. It will take 6 to 8 weeks for you and the baby to get the hang of and find a pattern. During these first weeks, you can have engorged breasts at times and often leak milk. ?? Your stomach and intestines all have to fall back into place. You may have a lot of gas for a fewweeks. ?? You may be constipated--especially if you are . ?? Your stretched stomach muscles can recover in a few weeks, but for some women it takes longer--6 months or a year--to recover. ?? If you had a delivery, you may have pain or numbness around the incision for 6 months ormore. ?? Losing the weight you gained during will probably take 6 months to a year. Have patience! It took 40 weeks to get here. Give yourself 40 weeks to get back. What Can I Expect When My Hormones Change? About 75% of all women will get the ?blues.? This usually starts about 3 days after the of your baby. You may cry easily and feel very, very tired. A few women become very depressed. Ifyou had a delivery or your new baby was sick, you are at a higher risk for depression. Call your health care provider right away if you cannot care for yourself or your baby, if you feel very nervous or worried, if you cannot stop crying, or if you are having thoughts of hurting yourselfor your baby. Taking Care of Yourself While you are still : ?? Talk with your partner and your family about the time ahead. Arrange for someone to help you during the first weeks at home if you can. ?? Talk with your health care provider about control options and make a plan before the baby comes. ?? If you are worried about how to parent a , take parenting classes. You will learn a lot about how babies act and you will make some friends who are going through the same thing at the same time. Most [facility] have these classes. ?? Arrange for someone to help with baby care if you can. After the baby comes: ?? Ask for help. Let other people do the cooking and cleaning and run the house. Focus on yourself and your baby. ?? Sleep whenever you can. Try not to be tempted to ?get some things done? when the baby sleeps. This is your time to sleep, too. ?? Drink lots of water. You will need at least 6 big glasses of water everyday to avoid constipationand make enough breast milk. Every time you sit down to breastfeed, have a big glass of water with you to drink while you are nursing. ?? Eat lots of vegetables and fruit. You will need lots of vitamins and fiber to help your body get back to normal. This will also help you avoid constipation. ?? Go outside and walk. Babies can go outside even if it is very cold. Fresh air and sunshine will do you both good. ?? Take sitz baths. Put about 6 inches of warm water in your bathtub and sit in there for 15 minutes2 to 3 times a day. This will help your ?bottom? heal more quickly. It will also give you 15 minutes of private time! ?? Talk to other mothers. Join a new parents group. Call [place] and go to [facility] meetings if you are . With your partner: ?? Keep talking. Share the experience. ?? Spend time alone. Even a 30-minute walk can be a date. ?? Start a control method. You can get before you even have a period. It is very important to use control if you do not want to get again right away. ?? When you have sex, use a lubricant. A lot of lubricant! Take it slow. The first few months after a baby comes can be a lot like floating in a jar of honey--very sweet andgolden, but very sticky, too. Take time to enjoy the good parts. Remind yourself that this time willpass. Bon marcie! FOR MORE INFORMATION For questions about depression during and after : http://www.womenshealth.gov/publications/our-publications/fact-sheet/depression- .html After : The first 6 weeks: http://www.[employer]/Ebqi-Fxexv-kko-Recovery resources: http://www.ExploraMeddiesTifen.comlves.org/health-info/znyzxrl-fopmaolfahafj-dey-to-a-goo d-start/ HEALTHY CARE: 37 to 41 WEEKS Talk with your regional dedicated truck driver or physician about when to call with signs of labor ?? Regular uterine contractions that are getting closer together and/or stronger ?? If you think your water has broken or is leaking ?? Bleeding from the vagina like a period (bloody vaginal discharge is normal) ?? If you are not feeling your baby move Make plans for transportation and child therapist as needed for when you are going to the hospital. Your regional dedicated truck driver or physician may offer to check your cervix for changes. Ask your health care provider about vaccinations you may need following delivery. By now, you shouldhave received a Tdap immunization to protect against pertussis or whooping cough. Fathers and familymembers who will be in close contact with the baby should also receive a Tdap shot at least two weeks before the expected of the baby if they have not had a Td (tetanus) shot for at least two years. If you are past your due date, discuss the next steps leading to delivery with your regional dedicated truck driver or physician. If you don't start labor on your own by 41 or 42 weeks, your regional dedicated truck driver or physician may recommendgiving you medicines to ripen your cervix and start labor. Preparing for your baby: Tell your regional dedicated truck driver or physician how you plan to feed your baby (breast or bottle), who you have chosen to do pediatric care for your baby, and if you have a boy, whether you have chosen to have him circumcised. You will need a car seat correctly installed in your vehicle to bring your baby home. As you start to set up the nursery at home for your baby, make sure the crib is safe. The mattress needs to fit snugly against the edges of the crib. If you can fit a soda can betweenthe bars, they are too far apart and can allow the baby's head to caught between them. Learn about care and feeding, including information about infant CPR. We recommend that you put your baby to sleep on his or her back to reduce the chance of Sudden Infant Syndrome (SIDS).To maintain a healthy environment in which your child can grow, it's best to keep your home smoke-free. By preparing ahead, your transition into parenthood will go smoothly for you and your baby. Your regional dedicated truck driver or physician will want to see you for a checkup 2 to 6 weeks after delivery. If you have questions about any symptoms you are experiencing or any other concerns, call your provider or their clinic staff at [facility] at . If it's after clinic hours, physician patients should call the Care Connection at [phone] ([phone]); regional dedicated truck driver patients should call their answering service at [phone]. How can you care for yourself at home? You can refer to the Starting Out Right book or find it online at http://www.[facility].org/images/s alma delia/maternity/RhtttkXsil-Ylejgrcp-Exk-Right.pdf or http://www.[facility].org/images/stories/seniabo karin/biojkkknlm-rosrgnzj-bbv-right/edbljtlbui-uuogantg-iaz-right.html#p=8 You can sign up for a weekly parenting e-mail that gives support, tips and advice from health career development specialist that starts with and continues through the toddler years. To register, go to www.[facility].org/baby at any time during your . Making Plans for Feeding My Baby By this point, you probably have read a lot about feeding your baby. Breastfeed or formula? Each mother???s decision is her own and [facility] respects you and your choices. We???ve gathered information on both and formula feeding to help with your decision. Talking with your physician or nurse-regional dedicated truck driver can also help in your decision. However you plan to feed your baby, [facility] encourage rooming in with your baby, oidj-qp-xyaq contact and feeding your baby based on his or her cues. Krkp-jz-zcss contact Being close to mom helps your baby adjust to life outside of the womb. It helps your baby regulate their body temperature, heart rate, and breathing. Your baby will usually be placed lmos-cg-vjgs immediately following or as soon as possible, if medical intervention is needed. Rooming-In Having your baby stay with you in your room is called ???rooming-in?? . Keeping your baby in your room helps you to learn how to care for your baby by getting to know your baby???s cues, body rhythms and sleep cycle. Cue-based feeding Cues (signals) are baby???s way of telling you what he or she wants. When you learn your ???s cues, you know how to care for and feed your baby. Feeding cues are the licking and smacking of lips,bringing their fist to their mouth, and a reflex called ???rooting?? - where baby turns and opens his or her mouth, searching for the breast or bottle. Crying is a late feeding cue. Babies can feed frequently, often at least 8 times in 24 hours. facts Breast milk is the best source of nutrition for your baby and is available at . In the first couple of days, your milk volume is already starting to increase, though it may not be noticeable. Breastfeed frequently to increase your milk supply. Within three to five days, you will begin to notice larger milk volumes. An increase in breast size, heaviness and firmness are often described as the milk ???coming in.?? Frequent can help breasts from getting overly firm and painful. You will know the baby is getting enough milk if your baby is having wet and dirty diapers and gaining weight. If your goal is to exclusively breastfeed, it is important to not use any formula or artificial nipples (including bottles and pacifiers) while your baby is learning to breastfeed. While it may seem like an ???easy?? option to give your baby a bottle, formula should only be given if there is a medical reason for your baby to have it. Positioning and attachment Get comfortable. Use pillows as needed to support your arms and baby. Hold baby close at the level of your breast, facing you in a tummy to tummy position. Skin to skin helps with this. Position the baby with his or her nose by the nipple. There should be a straight line from baby???s ear to shoulder to hips. Tickle your baby???s lips or wait for baby to open mouth wide, bring baby to breast by leading with the chin. Aim the nipple at the roof of baby???s mouth. A rapid sucking pattern is followed by longer, drawing pattern with occasional swallows heard. When baby is correctly latched, your nippleand much of the areola are pulled well into baby???s mouth. Returning to work or school Focus on a good start to . Many women continue to provide breastmilk for their baby when they return to work or school. Making plans about where to pump and store milk can make the transition go well. Talk with other mothers who have also returned to work or school for tips and support. Your employer???s Human Resource department may be a resource as well. Returning to work or school: (continued) ??? Breastfed babies can mean fewer ???sick?? days for you. ??? A quality breast pump will also save time and add comfort. Check with your insurance prior to giving for breast pump coverage. Many insurance companies include a pump within your benefits. ??? Wait until your baby is at least three weeks old to introduce a bottle for the first time. Have someone besides you give the bottle. ??? Breastfeed when you are with your baby. Candor your bottles of breast milk for when you are away. ??? Your breasts will need to be ???emptied?? either by your baby or a pump. Plan to pump at least twice in an eight hour day. ??? If you cannot pump at work, continue at home. Any amount of breast milk is worth giving to your baby. Formula feeding facts If you are planning to use formula to feed your baby, you will want to make some preparations ahead of time. Talk to your doctor or nurse-regional dedicated truck driver about what type of formula to use. Some are iron-fortified, meaning they have extra iron in them. You will want to purchase formula and bottles before your baby is born to be sure you are ready after you return from the hospital. [facility] donot provide formula samples to take home. Be sure to follow formula mixing directions closely. Regular milk in the dairy case at the grocery store should not be given to babies under 1 year old. Baby formula is sold in several forms including: ??? Tqmmg-ox-qgc. This is the most expensive, but no mixing is necessary. ??? Concentrated liquid. This is less expensive than tdfhv-eh-fej and you mix with water. ??? Powder. This is the least expensive. You mix one level scoop of powdered formula with two ouncesof water and stir well. Most babies need 2.5 ounces of formula per pound of body weight each day. This means an 8-pound babymay drink about 20 ounces of formula a day; however, this is just an estimate. The most important thing is to pay attention to your baby???s cues. If your baby is always fussy, needs more iron or has certain food allergies, your physician may suggest you change your baby???s formula to a different kind. How do I warm my baby???s bottles? You may feed your baby a bottle without warming it first. It is OK for the breast milk or formula jonathan cool or room temperature. If your baby seems to prefer it warmed, you can put the filled bottle in a container of warm water and let it stand for a few minutes. Check the temperature of the liquid on your skin before feeding it to your baby; to be sure it isn???t too hot. Do not heat bottles in themicrowave. Microwaves heat food and liquids unevenly, and this can cause hot spots that can burn your baby. How do I clean and sterilize bottles? Sterilize bottles and nipples before you use them for the first time. You can do this by putting them in boiling water for 5 minutes. After that first time, you can wash them in hot and soapy water. Rinse them carefully to be sure there is no soap left on them. You can also wash them in the alum operator. [facility] [phone] ([phone]) Share with Women\Andi I in Labor? What is labor? Labor is the work that your body does to your baby. Your uterus (the womb) contracts(tightens). The contractions(labor pains) push your baby down onto your cervix(the opening ofyour uterus). Thispressure causesyour cervix to open. When your cervix iscompletely open (10 centimetersdilated), you will push your baby through your vagina and out into the world. What do contractions feel like? When contractionsfirst start, theyusually feellike cramps duringyourperiod. Sometimesyoufeelpain in your back. Mostoften,contractions feel like muscles pulling painfully in your lower belly. At first, the contractions will probably be 15 to 20 minutes apart.They maybe i rregular and will not feel too painful. As labor goes on, the contractionsget stronger,closer together, more consistent, and more painful. How do I time the contractions? When the contractionsseem to be coming regularly, youshould start totime them.You time your contractions by counting the number of minutes from the start of one contraction to the start of the next contraction. What should I do during early labor when the contractions start? If it is night andyoucan sleep, do so. If it happensduring the day, there are some things you can do to take care of yourself at home: Walk. If the painsyou are having are reallabor, walking will makethecontractionscome closer together and they will be stronger,but you will be able to cope with them better if you are standing or moving around. If the contractions are early labor ones that come andgo (sometimes called false labor), walkingcan make them go away. Take a shower or bath. This will help you relax. Eat. Labor is a big event.Your body needs a lot of energy to be effective.Eat whatever you feel like eating. Drink water. Not dr inking enough water can cause contractions to not be as effectiveas theyshould be.You need to be well hydrated (drinking enoughwater) to help your body work well during labor. Take a na p. If youfeel tired, lay down on your side and get all the rest you can. It helps to be rested when you go intoactive labor. Do something you enjoy. Spend time with family. Watch a movie. Distraction will help you relax. Get a massage. If your labor is in your back, a strong massage on your lower back may feel very good. Getting a foot massage or having a partner rub your feet can also be very relaxing. Don???t panic. You can do this. Your body was made for this. You are strong! When should I call my health care provider if I think I am in labor? Your contractions have been 5 minutes or less apart for at least an hour. Your contractions are becoming so painful youcannot walk or talk during one. You think your amniotic sac (bag of hutson) breaks. You may have a big gush of amni otic fluid (water) or just fluid that runs down your legs when you walk or move or change position. Are there other reasons to call my health care provider? If you are concerned about anything, don???t hesitate to call your health care provider.You should definitely call your health care provider or go to the hospital if: It is 3 weeks or more before your due date, and you are having contractions. You have vaginal bleeding that is more than your period, soaks your underwear, or runs down your legs. You have sudden severe pain that does not go away with rest. Your baby has not movedfor several hours. You are leaking greenish fluid. For More Information: http://onlinelibrary.molina.com/doi/10.1111/jmwh.72839/epdf US Department of Health and Human Services: Signs oflabor,labor stages, and types of http://womenshealth.gov//childbirth-beyond/labor-.html#a Childbirth and Parenting Education: [place] parenting center: http://veterans affairs medical centerMersimo/ (534) 493-TTCR Blooma: (education, yoga & wellness) www.Nitinol Devices & Components.iSpye Enlightened Mama: www.enlightenedmama.iSpye Childbirth collective: (Parent topic nights) www.childbirthcollective.org/ Hypnobabies: www.hypnobabiestwinXytis.iSpye/ Hypnobirthing: Http://hypnobirthing.com/ The Hour: https://Disenia/eetbxv-yvxfdswrti-mhfhw/ APPS and Podcasts: Norma Schmid Nurture The Hour (for stories) Birthful Expectful The Longest Shortest Time PregnancyPodcast Jessi Gomez Book Recommendations: Susan Milla's Birthing From Within--first [...] deciding to wean and deciding not to. [place] [employer] Nurse-Midwives (ACNM) http://www.regional dedicated truck driver.org/; look at the informational handouts at http://www.regional dedicated truck driver.org/Dkpjc-Cogk-Uzrwa www.mymidwife.org Mother to Baby (Medication and Herbal guidance in ): http://www.mothertobaby.org Toll-Free Hotline: 785.868.2566 LactMed (Medication use while ): http://toxnet.nlm.nih.gov/newtoxnet/lactmed.htm Women's Health.gov: http://www.womenshealth.gov/a-z-topics/index.html [place] association - http://americanpregnancy.org Centering (group care option): http://centeringhealthcare.org Information about doulas: Childbirth collective: http://www.childbirthcollective.org/ Doulas of [place] (CARRI): www.carri.org [facility]ad [facility] sawdust drier project: http://SportsCrunchcitiesdoulaproject.com/ Fruit Stuffer and Family Education (ECFE): ECFE offers parents hands-on learning experiences that will nourish a lifetime of teachable moments. http://ecfe.info/ecfe-home/ October www.CCM Benchmark FDA - Nutrition www.mypyramid.gov Under For Consumers, [...] offering virtual support groups for : ??? [facility] Support Group, Tuesdays at 10:30 am Run by LIZ Rubin of [employer] [facility] Go to [facility] Facebook page and click on events for link https://www.Skycure.com/events/328787154851943/ ??? [facility] Milk Hour, at 2:30 pm Run by LIZ Mosley Go to [facility] FB page and send message to get link https://www.Skycure.iSpye/Blast RampundCoursera/ ??? [facility] holding virtual meetings the first Wednesday of each month, 8-9 pm, and the Third Wednesday, 10 - 11 am. Go to [facility] [place] FB page; message to get link https://www.Skycure.com/LLLofGKasia/?hc_location=[facility] ??? [facility] offers a Lounge every Wednesday 12pm - 1pm, run by Harleen Robles Leader Sign up via link at VuCast Media/cbe- https://www.VuCast Media/cbe- ??? [facility] is offering virtual support groups every Wednesday, 10:30 am - 12 pm, run bynurse HILL Https://www.Skycure.com/events/335622765104897/ Classes: ??? [facility] is offering virtual and care classes: https://www.VuCast Media/education-workshops ??? Birth[facility] childbirth and education offering virtual classes https://www.GooseChase/workshops documented in this encounter Plan of Treatment Not on filedocumented as of this encounter Visit Diagnoses Diagnosis High-risk , second trimester History of pulmonary embolism Personal history of pulmonary embolism At high risk for venous thromboembolism (VTE) documented in this encounter Additional Health Concerns Assessment Noted Time PHQ-9 Depression Total Score: 7 07/27/2018 7:15 AM DEPUTY K 9 documented as of this encounter Care Teams Bitumastic Applier Relationship Specialty Start Date End Date Rashida Pederson APRN CNP PCP - General Nurse Practitioner 10/08/14 [address] [place] [address] Rashida Pederson APRN RETAIL SPECIAL EVENT ASSOCIATE Assigned PCP 10/14/14 07/26/21 [address] [place], [place] [id number] documented as of this encounter
--- OUTSIDE RECORDS SUMMARY | 2022-06-02 16:05 | XMS_ITS | Encounter Summary ---
:1985 Author Organization [facility] Address [address] [place] [address] Care Team Providers Name Role Phone Rashida Pederson APRN PROGRAM PRODUCTION SPECIALIST Primary Care Provider [phone] Rashida Pederson APRN PROGRAM PRODUCTION SPECIALIST Unavailable [phone] Encounter Details Date Type Department Care Team Description 02/03/2020 [facility] Vaibhav Zaman APRN CNM [facility] [address] [facility] [address] [place] [address] Social History Tobacco Use Types [...] Depression Total Score: 7 07/27/2018 7:15 AM 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
--- OUTSIDE RECORDS SUMMARY | 2022-06-02 16:05 | XMS_ITS | Encounter Summary ---
:1985 Author Organization [place] Address [address] [place] [address] Care Team Providers Name Role Phone Rashida Pederson APRN ENVIRONMENTAL INSPECTOR Primary Care Provider [phone] Rashida Pederson APRN ENVIRONMENTAL INSPECTOR Unavailable [phone] Encounter Details Date Type Department Care Team Description 04/22/2020 [facility] Paty [place] [facility] [address] [place], [place] [address]LEONELA CALLAWAY [address] [place] [address] [facility] [address] [facility] [place] [address] Social History Tobacco Use Types [...] Depression Total Score: 7 07/27/2018 7:15 AM SUPERVISOR INSTANT POTATO PROCESSING documented as of this encounter Care Teams Oil Well Fishing Tool Operator Relationship Specialty Start Date End Date Rashida Pederson APRN ENVIRONMENTAL INSPECTOR PCP - General Nurse Practitioner 10/08/14 [address] [place], [place] [phone] Rashida Pederson APRN ENVIRONMENTAL INSPECTOR Assigned PCP 10/14/14 07/26/21 [address] [place], [place] [phone] documented as of this encounter
--- OUTSIDE RECORDS SUMMARY | 2022-06-02 16:05 | XMS_ITS | Encounter Summary ---
:1985 Author Organization [facility] Address [address] [place] [address] Care Team Providers Name Role Phone Rashida Pederson APRN, CNP Primary Care Provider [phone] Rashida Pederson APRN, CNP Unavailable [phone] Encounter Details Date Type Department Care Team Description 04/25/2020 [facility] LPN [address] [place] [id number] Social History Tobacco Use Types Packs/Day Years [...] Depression Total Score: 7 07/27/2018 7:15 AM PRODUCT SCIENTIST documented as of this encounter Care Teams Senior Quality Analyst Relationship Specialty Start Date End Date Rashida Pederson APRN CNP PCP - General Nurse Practitioner 10/08/14 [address] [place] [address] Rashida Pederson, ZIYAD WEIGHT YARDAGE CHECKER Assigned PCP 10/14/14 07/26/21 [address] [place] [address] documented as of this encounter
--- OUTSIDE RECORDS SUMMARY | 2022-06-02 16:05 | XMS_ITS | Encounter Summary ---
:1985 Author Organization [facility] Address [address] [place] [address] Care Team Providers Name Role Phone Rashida Pederson APRN SOLUTION ARCHITECT Primary Care Provider [phone] Rashida Pederson APRN SOLUTION ARCHITECT Unavailable [phone] Reason for Visit Reason Comments Care 36w4d Encounter Details Date Type Department Care Team Description 03/25/2020 Office [facility] Fatoumata Park, At [place] gh risk for venous thromboembolism (VTE); Visit - [facility] CN Rh negative, antepartum; [facility] High-risk , third t rimester [address] [place] [address] [facility] [address] [place] [address] [phone] [address] (Work) [phone] Social History Tobacco Use Types Packs/Day Years [...] Sign Reading Time Taken Comments Blood Pressure 108/70 03/25/2020 12:39 PM CDT Pulse 72 03/25/2020 12:39 PM CDT Temperature - - Respiratory Rate - - Oxygen Saturation - - Inhaled Oxygen Concentration - - Weight 119.3 kg (263 lb) 03/25/2020 12:39 PM CDT Height 167.6 cm (5' 6) 03/25/2020 12:39 PM CDT Body Mass Index 42.45 03/25/2020 12:39 PM CDT documented in this encounter Progress Notes Fatoumata Park CNM - 03/25/2020 12:40 PM CDT Logan is here by herself for a routine visit at 36w4d. She has no concerns and is feeling well. movement is normal. Interval weight gain is excessive. Patient is currently taking Lovonox and was told to switch to Heparin at 36 wk. Will consult with MD for dosage. TdaP 01/25/20. Pt does have a car seat. Group B strep results reviewed. Group B strep was collected today. maturity and expectations for movement in the third trimester, how and when to do kick counts and when to call the CNM and contact information reviewed.Reviewed recommendation for daily iron supplementation for all women at this time, she is currently supplementing once daily and will continue; given list of options for supplementation and comfort measures to prevent constipation. We discussed current recommendations for appointments with some inperson visits and telephone visits when appropriate. Reviewed changes to hospital policies regarding COVID-19 and the maternity unit. Reviewed how to reach CNM with non-urgent and urgent concerns between visits. documented in this encounter Miscellaneous Notes Addendum Note - Fatoumata Park CNM - 03/25/2020 12:40 PM CDT Addendum Note by Fatoumata Park APRN, CNM at 03/25/2020 12:40 PM Author: Fatoumata Park APRN, CNM Service: -- Author Type: Draft Roller Picker Filed: 03/25/2020 2:38 PM Encounter Date: 03/25/2020 Status: Signed Medical Reimbursement Specialist: Fatoumata Park APRN, CNM (Draft Roller Picker) Addended by: FATOUMATA PARK. on: 03/25/2020 02:38 PM Modules accepted: Orders documented in this encounter Plan of Treatment Not on filedocumented as of this encounter Procedures Procedure Name Priority Date/Time Associated Diagnosis Comme nts HEMOGLOBIN Routine 03/25/2020 1:16 PM Results f or this CDT procedure are i n the results section. GROUP B STREP PCR Routine 03/25/2020 1:16 PM Resu lts for this CDT procedure are i n the results section. documented in this encounter Results Group B strep PCR (03/25/2020 1:16 PM CDT) Analysis Performed At Patho logist Time Signature Group B Strep Negative Negative 03/26/2020 PCR 1:21 PM CDT Allergic To No 03/26/2020 Penicillin 1:21 PM CDT Specimen Anatomical Collection Method Collection Time Receive d Time (Source) Location / / Volume Laterality Specimen from POOLED SPECIMEN 03/25/2020 1:16 PM 03/25 6:51 genital system FROM VAGINAL CDT PM CDT (specimen) INTROITUS AND RECTAL SWAB / Unknown Narrative 03/26/2020 1:21 PM CDT Intended use: The Trellie Xpert GBS LB Assay, performe d on the Technical Sales International?? Travtar Systems, is a qualitative in vitro diagnostic test designed to detect Group B Streptococcus (GBS) DNA from enriched vaginal/rectal swab specimens, using fully automated r ealtime polymerase chain reaction (PCR) with fluorogenic detection of the amplified DNA. Xpert GBS LB Assay testing is indicated as an aid in determining GBS colo nization status in antepartum women. Thi s assay does not diagnose or monitor treatment for GBS infections. ??The Sidelinesid Xpert GBS LB Assay is intended for use in hospital, reference or state laboratory settings. ??The device is not intended for ksbml-up-hwma use. Methodology: The Technical Sales International Instrument Systems automat e and integrate sample lysis, nucleic acid purification and amplification, and detection of the target sequence in simple or complex samples using real-time polym erase chain reaction (PCR). The GBS prim ers and probe detect a target within a 3' DNA region adjacent to the cfb gene of S. agalactiae. A fluorescent signal becomes detected and increases each time the specific DNA strand is amplified. The Re al-time PCR generates a growth curve with number of cycles on the x-axis and fluorescence on the y-axis. If the organism? s DNA is not detected by the real-time PCR reaction the growth curve will be fl at and will be resulted as negative. Fatoumata Mckinney [facility] - MICRO GENERAL ORDERABL ES Hemoglobin (03/25/2020 1:16 PM CDT) P athologist Signature Hemoglobin 12.3 12.0 - 16.0 03/25/2020 [facility] g/dL 1:17 PM CDT [facility] Specimen Anatomical Collection Method / Collection Time Recei merry Time (Source) Location / Volume Laterality Blood specimen Venipuncture / 03/25/2020 1:16 03/25/20 20 1:16 (specimen) Unknown PM CDT PM CDT Fatoumata Mckinney [facility] - BLOOD ORDERABLES Performing Organization Address City/State/ZIP Code Phon e Number [id number] [place], [place] [address] [facility] [address] [place] [address] [facility] documented in this encounter Visit Diagnoses Diagnosis At high risk for venous thromboembolism (VTE) Rh negative, antepartum 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
--- OUTSIDE RECORDS SUMMARY | 2022-06-02 16:05 | XMS_ITS | Encounter Summary ---
:1985 Author Organization [place] Address [address] [place] [address] Care Team Providers Name Role Phone Rashida Pederson APRN HELP DESK CONSULTANT Primary Care Provider [phone] Rashida Pederson APRN HELP DESK CONSULTANT Unavailable [phone] Reason for Visit Reason Comments Care Encounter Details Date Type Department Care Team Description 04/17/2020 Office [facility] Anita Key h-risk , third trimester; Visit - [facility] BMI 39.0-39.9,adult; [facility] [address] [facility] History of pulmonary embolis m; [address] [facility] [address] At high risk for venous thromboembolism (VTE); Drive [address] Rh negative, antepartum; [place], [place] Post-term pr egnancy, 40-42 weeks of gestation Center [address] [place], [place] [phone] [address] (Work) [phone] Social History Tobacco Use Types Packs/Day Years [...] Sign Reading Time Taken Comments Blood Pressure 114/76 04/17/2020 2:31 PM CDT Pulse 96 04/17/2020 2:31 PM CDT Temperature - - Respiratory Rate - - Oxygen Saturation - - Inhaled Oxygen Concentration - - Weight 119.3 kg (263 lb) 04/17/2020 2:31 PM CDT Height 167.6 cm (5' 6) 04/17/2020 2:31 PM CDT Body Mass Index 42.45 04/17/2020 2:31 PM CDT documented in this encounter Progress Notes Anita Key CNM - 04/17/2020 2:20 PM CDT Logan presents alone. Continues to inject 5000 units of heparin twice daily. Questions regarding painrelief and labor. Does not want an epidural but nervous she may need one if IV Pitocin is indicated in labor. This teletypewriter operator spoke with Dr. Amaury Navarro, [facility] anesthesia who states that she may receive epidural anesthesia no sooner than 4 to 6 hours after the last dose of heparin. We also discussed warm hydrotherapy, IV fentanyl analgesia and the possibility of nitrous oxide after a negative COVID test confirmed. Baby is active, and she denies regular uterine contractions, loss of fluid or vaginal bleeding. Late term management/ surveillance reviewed. IOL offered d/t elevated pre- BMI and scheduled for WednesdayApril 21, , 0730. Paty [place] APRN, CNM is conche loader and unloader and notified & COVID-19 testing ordered. BPP scheduled for 04/19/2020. Requested sweeping of membranes today and understands risks and benefits but cervix is still closed, Nj score of 4 today. Term labor precautions and danger signs and symptoms reviewed. All questions answered. Encouraged daily fetalmovement counting and to call or return to clinic with any questions, concerns, or as needed. documented in this encounter Miscellaneous Notes Addendum Note - Anita Key CNM - 04/17/2020 2:20 PM CDT Addendum Note by Anita Key APRN, CNM at 04/17/2020 2:20 PM Author: Anita Key APRN, CNM Service: -- Author Type: Company Laborer Filed: 04/18/2020 6:00 PM Encounter Date: 04/17/2020 Status: Signed Hatchery Worker: Anita Key APRN, CNM (Company Laborer) Addended by: ANITA KEY on: 04/18/2020 06:00 PM Modules accepted: Orders documented in this encounter Plan of Treatment Not on filedocumented as of this encounter Visit Diagnoses Diagnosis High-risk , third trimester BMI 39.0-39.9,adult Body Mass Index 39.0-39.9, adult History of pulmonary embolism Personal history of pulmonary embolism At high risk for venous thromboembolism (VTE) Rh negative, antepartum 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, antepartum condition Post-term , 40-42 weeks of gest ation Post term , unspecified episode of care documented in this encounter Additional Health Concerns Assessment Noted Time PHQ-9 Depression Total Score: 7 07/27/2018 7:15 AM COLLAR BASTER documented as of this encounter Care Teams Bakery Machine Mechanic Supervisor Relationship Specialty Start Date End Date Rashida Pederson APRN HELP DESK CONSULTANT PCP - General Nurse Practitioner 10/08/14 [address] [place] [address] Rashida Pederson APRN HELP DESK CONSULTANT Assigned PCP 10/14/14 07/26/21 [address] [place] [address] documented as of this encounter
--- OUTSIDE RECORDS SUMMARY | 2022-06-02 16:05 | XMS_ITS | Encounter Summary ---
:1985 Author Organization [place] Address [address] [place] [address] Care Team Providers Name Role Phone Rashida Pederson APRN CROWN CERAMIST Primary Care Provider [phone] Rashida Pederson APRN CROWN CERAMIST Unavailable [phone] Reason for Visit Reason Comments Care Encounter Details Date Type Department Care Team Description 02/22/2020 Office [facility] Temitope Fitzgerald High- risk , second trimester; Visit - [facility] ZIYAD Cooley Lactating mother; [place] [address] high risk for venous thro mboembolism (VTE); [address] BMI 39.0-39.9,adult; Drive [address] History of pulmonary embolism [facility] [address] [place], [place] [phone] (Work) [phone] Social History Tobacco Use Types Packs/Day Years [...] Sign Reading Time Taken Comments Blood Pressure 120/80 02/22/2020 2:08 PM CDT Pulse 104 02/22/2020 2:08 PM CDT Temperature - - Respiratory Rate - - Oxygen Saturation - - Inhaled Oxygen Concentration - - Weight 116.5 kg (256 lb 12.8 oz) 02/22/2020 2:08 PM CDT Height 167.6 cm (5' 6) 02/22/2020 2:08 PM CDT Body Mass Index 41.45 02/22/2020 2:08 PM CDT documented in this encounter Progress Notes Temitope Fitzgerald CNM - 02/22/2020 2:00 PM CDT Logan is here alone today. She is feeling well. Feeling active movement. Lovenox continues to go well for her. We will plan to switch to heparin at 36 weeks. Discussed that doulas were now welcomein the hospital in addition to their one visitor. Also discussed that if there COVID test is negative, nitrous oxide can be used. Prescription for breast pump was given to her today. No signs or symptoms of labor preeclampsia. Reviewed 32-week checklist today. documented in this encounter Miscellaneous Notes Patient Instructions - HE - Temitope Fitzgerald CNM - 02/22/2020 2:00 PM CDT [facility] Contact information: Appointment line and to get a hold of CNM in clinic Wednesday-Wednesday 8 am - 5 pm: . Thereare some clinics with early start times (1st appointment 7:40 am) and others with evening hours (last appointment 6:20 pm). Most are typically open from 8 am to 5 pm. CNM pest control technician answering service: . Specify your hospital of choice and leave a brief message for CNM; bench press operator will then page CNM who is pest control technician at your specified hospital and you [...] F. You are invited to [facility] A way to tour the hospital Labor and Delivery unit and meet the midwives in our group was postponed at the start of hospital restrictions following COVID-19. We will resume these when able and virtual options may be available in the future. Please call [phone] for ongoing updates. Touring the [facility] Center To schedule a tour at either [place] or [facility], please do so online using the following links: [facility] - [email or web address]&[email or web address] amp;[email or web address]&[email or web address]&[email or web address]&[email or web address]&txv=025 [facility] [place] [facility] - [email or web address]&a mp;[email or web address]=056&ps=1&group=38&it=1&zhs=252 Pre-registration for Hospital Stay: Sometime betweeen 30-37 weeks, it is recommended that you pre-register for your upcoming hospital stay on our website: [email or web address] and Control How do I decide what control method is best for me while I am ? Choosing a method of control is very personal. First, answer the following questions: ??? Do you want to have more children? How much spacing between births do you want for your children? Do you smoke or have you had any health problems, such as liver disease or a blood clot? Talk about the answers to each of these questions with your health care provider to help you choose the best method for you. Can I use as my control? Using as your control (the lactational amenorrhea method) can be a good way to keep from getting in the first months after the baby is born. Each time your baby nurses, your body releases a hormone called prolactin, which stops your body from making the hormones that causeyou to ovulate (release an egg). If you are not ovulating, you cannot get . The lactational amenorrhea method works only if: ??? you have not started your period yet. ??? you are only and not giving your baby any other food or drink. ??? you are at least every 4 hours during the day and every 6 hours at night. ??? your baby is less than 6 months old. When any 1 of these 4 things is not happening, you no longer have good protection from getting , and you should use another form of control. What control methods are safe for me to use while I breastfeed? Methods without hormones Methods without hormones do not affect you, your baby, or your . Methods without hormones that are the most effective ??? The copper intrauterine contraceptive device (IUD) (ParaGard) is a small, T- shaped device that is in- serted into your uterus (womb) through the vagina and cervix. The copper IUD lasts for 10 years. ??? Sterilization (getting your tubes tied or your partner having a vasectomy) is very effective, but it is per- manent. You should choose sterilization only if you do not want to have more children. A method without hormones that is effective ??? The lactational amenorrhea method described above is effective for the first 6 months. Methods without hormones that are less effective ??? Natural family planning is monitoring your body for signs of ovulation and not having sex when you think you are ovulating. This method is reliable only if you are having regular periods every month. ??? Barrier methods (condoms, diaphragms, sponges, and spermicides) are used at the time you have sex. These methods are effective only if you use them correctly every time. Methods with hormones control methods that use hormones can be used while you are . They may have a small effect on lowering the amount of milk you make. All hormones will get into your breast milk in very small amounts, but there is no known harm to your baby from this small amount of hormone in breast milk.only methodsmethods use only 1 hormone, called progestin. You can start them right after your baby is born or wait 4 to 6 weeks to make sure your milk supply is good. ?? Progestin-only pills (???minipills?? ): If you like to take pills every day, you can use the minipill. In order forpill to work well, you have to take 1 at the same time each day. When you stop , you should start pills that have both estrogen and progestin because they are better at keeping you from get- ting . ?? Progestin IUD (Mirena): The progestin IUD is shaped and inserted into the uterus like the copper IUD. It works for up to 5 years. Both IUDs are usually inserted 4 to 6 weeks after the baby is born. ?? Progestin implant (Nexplanon): The progestin implant is a small matchstick- sized flexible sarthak. Itis placed into the fatty tissue in the back of your arm. It works for up to 3 years. ?? Progestin shot (Depo-Provera): The progestin shot is given every 3 months. estrogen and progestin methods These methods use 2 hormones, called estrogen and progestin. These methods increase your risk of a blood clot, which is already higher than normal after you havea baby. You should not use them until your baby is at least 6 weeks old. The combined methods are not recommended as the first choice for women who are . If a combined method is the one that you feel will be best for you to prevent getting , these methods are okay to use while . ?? Combined control pills: You take a pill each day. ?? Vaginal ring (NuvaRing): The ring is worn in the vagina for 3 weeks then left out for 1 week before youin a new ring. ?? Patch (Ortho Evra): The patch is placed on your skin and changed every week for 3 weeks then leftoff forweek before putting a new patch on a different area of your skin. Pediatric Care Providers at [facility]: Choosing the right provider is one of the most important decisions you???ll make about your health care. We can help you find the right one. Remember, you???re looking for a provider you can trust and work with to improve your health and well-being, so take time to think about what you need. Dependingon how complicated your health care needs are, you may need to see more than one type of provider. Primary Care Providers: You???ll see a primary care provider first for most health issues. They???llwork with you to get your recommended screenings, help you manage chronic conditions, and refer you to other types of providers if you need them. Your primary care provider may be called a family physician or doctor, caving guide, general practitioner, nurse practitioner, or physician???s campaign assistant. Yourchild or teenager???s provider may be called a crab fisherman. Specialists: You???ll see a specialist for certain services or to treat specific conditions. Specialists include cardiologists, oncologists, psychologists, allergists, podiatrists, and orthopedists. You may need a referral from your primary care provider before you go to a specialist in order for yourhealth plan to pay for your visit.\pardHere are some tips for finding a provider where you live: If you already have a provider you like and want to keep working with, call their office and ask if they accept your coverage. Call your insurance company or state Medicaid and CHIP program. Look at their website or check your member handbook to find providers in your network who take your health coverage. Ask your friends or family if they have providers they like and use these tools to compare health care providers in your area. Family Medicine at [facility] Nurse [facility]: https://www.[email or web address]/specialties/family-medicine Many of our families enjoy all seeing the same doctor, who comes to know the whole family very well.We base our practice on the knowledge of the patient in the context of family and community. WHY CHOOSE A FAMILY MEDICINE PHYSICIAN? Ability of the whole family to see the same doctor Focus on the whole person, including physical and emotional health A personal relationship with their doctor that is nurtured over time Respect for individual and family beliefs and values No need to change primary care providers when a certain age is reached Coordination of care when other health care services are needed Pediatrics at [facility] Nurse [facility]: https://www.[email or web address].org/specialties/[email or web address]-care Through a teaching affiliation with the [facility], [facility] staff keeps current on new developments in the field of pediatrics. Everything we do centers around caring for children. We place special emphasis on wellness and prevention.pediatric care team includes a team of pediatricians and certified nurse practitioners who provide care to pediatric and adolescent patients ages 0 to 18, and some up to the age of 26. We offer preventive health maintenance for healthy children as well the diagnosis and treatment of common and chronic illnesses and injuries. In addition, we also offer several pediatric specialists who focus on adolescent health issues and developmental and behavioral issues. Circumcision Educational video: https://www.Edgewater Networks.[email or web address] What is circumcision? At , baby boys have loose skin that covers the head of the penis. This skin is called the foreskin. When all or part of the foreskin of the penis is cut off, this is called circumcision. Why is circumcision done? Circumcision is done for many reasons including nondenominational, cultural, looks, and health. Some nondenominational groups circumcise all boys as a marlin-based practice. Many people in the [place] choose to circumcise their baby boys because they believe it is culturally normal. It is not a common practice in [place], [place], or [place]. Some parents choose circumcision so that their son will have a penis that looks like his father???s if the father was also circumcised. Other people choose circumcision because they believe it is core cleaner or will protect the boy or man from infection or cancer later in life. Does circumcision protect against infection or cancer? Circumcision does seem to protect against some types of infection or cancer. Cancer of the penis is one type of cancer that circumcision may prevent. However, cancer of the penis is very rare. One hundred thousand circumcisions would need to be done to prevent one case of cancer of the penis. Circumcision may also decrease the chance of some sexually transmitted infections, such as HIV and human papilloma virus (HPV). See the next page for more information on the risks and benefits of circumcision. What happens during a circumcision? Babies born in the hospital are usually circumcised before they go home. Health care providers also perform circumcisions in their offices and clinics within a few weeks after . Confucianist circumcisions are most often done at home or in a sikhism. Before the circumcision is performed, some providers give an injection (shot) of a small amount of anesthetic (numbing medicine) at the base of the penis to block the pain or put an anesthetic cream onthe penis to numb the area that will be cut. There are 2 different ways to do a circumcision. In one type, a clamp placed around the head of the penis cuts off the blood supply to the foreskin, and the foreskin above the clamp is cut off. The clamp is left on the penis until the area heals and it falls off a few days later. In another type of circumcision, the foreskin is cut off with scissors or a scalpel. After the circumcision, petroleum jelly and sometimes gauze may be put over the area of the penis where the skin was removed. This protects the end of the penis while it heals. Can I keep my son???s penis core cleaner if it is circumcised? Regular washing with soap and water will keep any penis clean. Circumcision does not make the penis core cleaner. Uncircumcised boys do need to be taught to clean beneath their foreskin, just like they needto be taught to wash their hands or brush their teeth. How do I decide if I should have my son circumcised? The [place] Academy of Pediatrics (AAP) says that circumcision may have health benefits. They do not recommend circumcision for all boys as a routine procedure. The AAP recommends that you talk to your health care provider to decide if circumcision is the right choice for your family. You mayalso wish to discuss the question with your family or senior advisor. What are the risks and benefits of circumcision? We do not have a lot of good scientific information about the health risks or benefits of circumcision. Possible Risks: Very few baby boys (less than 1 in 100) will have a problem after circumcision, such as bleeding or mild infection of the penis. These problems are usually not serious and are easy to treat. Less common problems are: ??? Removal of too much or too little foreskin Some rare problems are: ??? Narrowing of the opening of the penis, which can cause problems with urination ??? Removal of part of the penis or of some of the other skin on the penis ??? Infection that spreads to other parts of the body People used to think babies did not really feel pain. Now we know that they do. Many baby boys appear to feel a lot of pain during circumcision if anesthesia is not used. We do not know if circumcision affects sexual function or sensation. Possible Benefits: ??? Less risk for some kinds of cancers, like cancer of the penis ??? Fewer urinary tract (bladder or kidney) infections for babies ??? Less risk for some sexually transmitted infections, such as HIV, herpes, and HPV ??? May protect female sexual partners from some sexually transmitted infections For More Information [place] [employer]: Circumcision http://familydoctor.org/familydoctor/en/-newborns/petiha-lqw-xywriptj/i nfant- care/circumcision.html MedlinePlus: Circumcision (includes a slide show on the procedure) www.nlm.nih.gov/medlineplus/circumcision.html [place] Academy of Pediatrics: Policy statement on circumcision Http://pediatrics.aappublications.org/content/130/3/e756.abstract Childbirth and Parenting Education: [facility]: http://[facility] hospitalBioPheresis/ (357) 483-HKHB Blooma: (education, yoga & wellness) www.WhoisEDI Enlightened Mama: www.AimetisightenedScarlet Lens Productionsma.CityHeroes Childbirth collective: (Parent topic nights) www.childbirthcollective.org/ Hypnobabies: www.hypnobabiestRecordantties.CityHeroes/ Hypnobirthing: Http://hypnobirthing.com/ The Hour: https://Extend Labs/uidycj-lppehygxtp-pzvds/ APPS and Podcasts: Norma Schmid Nurture The Hour (for stories) Birthful Expectful The Longest Shortest Time PregnancyPodcast Jessi Gomez Book Recommendations: Susan Canal Winchester's Birthing From Within--first few chapters include a new-age tone, you may prefer to skip it and keep going, because there is good stuff later. This book recommendation covers emotional preparation, but does cover coping with pain, and use of both pharmacological and nonpharmacological methods. Dr. Wilder' The Book and The Book--the book goes month- by month Womanly Art of by La Leche League International Bestfeeding by Davida Nolasco--great pictures Mothering Your Nursing Toddler, by Melanie Tejada. Addresses dealing with so many of the challenging behaviors of a nursing toddler. How Weaning Happens, by Belem Oconnor. Discusses weaning at all ages, from medically necessary weaning of an , all the way up to age 5 (or older), with why/why not, and strategies. Very empowering book both for deciding to wean and deciding not to. [place] [employer] Nurse-Midwives (ACNM) http://www.turret punch operator.org/; look at the informational handouts at http://www.turret punch operator.org/Mpqmq-Pshl-Lnyyx www.mymidwife.org Mother to Baby (Medication and Herbal guidance in ): http://www.mothertobaby.org Toll-Free Hotline: 104.573.1266 LactMed (Medication use while ): http://toxnet.nlm.nih.gov/newtoxnet/lactmed.htm Women's Health.gov: http://www.womenshealth.gov/a-z-topics/index.html [place] association - http://americanpregnancy.org Centering (group care option): http://centeringhealthcare.org Information about doulas: Childbirth collective: http://www.childbirthcollective.org/ Doulas of [place] (CARRI): www.carri.org [facility] apartment leasing specialist project: http://twincitiesdoulaproject.com/ Change Attendant and Family Education (ECFE): ECFE offers parents hands-on learning experiences that will nourish a lifetime of teachable moments. http://ecfe.info/ecfe-home/ March of Dimes www.marchofdimes.com FDA - Nutrition www.mypyramid.gov Under For Consumers, [...] page and click on events for link https://www.InHiro.com/events/[email or web address]/ ??? [facility] Milk Hour, at 2:30 pm Run by LIZ Mosley Go to [facility] FB page and send message to get link https://www.InHiro.CityHeroes/Articulate Technologies/ ??? [facility] holding virtual meetings the first Wednesday of each month, 8-9 pm, and the Third Wednesday, 10 - 11 am. Go to [facility] and [place] FB page; message to get link [email or web address]://[email or web address].CityHeroes/[email or web address]/?hc_location=[facility] ??? [employer] offers a Lounge every Wednesday 12pm - 1pm, run by Yessenia Fernandes [facility] Leader Sign up via link at WhoisEDI/cbe- https://www.WhoisEDI/cbe- ??? [facility] is offering virtual support groups every Wednesday, 10:30 am - 12 pm, run bynurse HILL Https://www.InHiro.com/[email or web address]/ Classes: ??? [employer] is offering virtual and care classes: https://www.WhoisEDI/education-workshops ??? BirthEd childbirth and education offering virtual classes https://www.BoomWriter Mediaedmn.com/workshops documented in this encounter Plan of Treatment Not on filedocumented as of this encounter Visit Diagnoses Diagnosis High-risk , second trimester Lactating mother care and examination of lacta ting mother At high risk for venous thromboembolism (VTE) BMI 39.0-39.9,adult Body Mass Index 39.0-39.9, adult History of pulmonary embolism Personal history of pulmonary embolism documented in this encounter Additional Health Concerns Assessment Noted Time PHQ-9 Depression Total Score: 7 07/27/2018 7:15 AM PROP SETTER documented as of this encounter Care Teams Interior Design Consultant Relationship Specialty Start Date End Date Rashida Pederson APRN CROWN CERAMIST PCP - General Nurse Practitioner 10/08/14 [address] [place] [address] Rashida Pederson APRN CROWN CERAMIST Assigned PCP 10/14/14 07/26/21 [address] [place] [address] documented as of this encounter
--- OUTSIDE RECORDS SUMMARY | 2022-06-02 16:05 | XMS_ITS | Encounter Summary ---
:1985 Author Organization [place] Address [address] [place] [address] Care Team Providers Name Role Phone Rashida Pederson APRN PHARMACEUTICAL PLANT OPERATOR Primary Care Provider [phone] Rashida Pederson APRN PHARMACEUTICAL PLANT OPERATOR Unavailable [phone] Encounter Details Date Type Department Care Team Description 01/30/2020 Communication - [facility] Mihaela Burns, Rain [address] [place] [address] [place] [address] Drive [address] [place] [address] Social History Tobacco Use Types [...] Depression Total Score: 7 07/27/2018 7:15 AM ED PHYSICIANS documented as of this encounter Care Teams Sander Machine Relationship Specialty Start Date End Date Rashida Pederson APRN PHARMACEUTICAL PLANT OPERATOR PCP - General Nurse Practitioner 10/08/14 [address] [place], [place] [id number] Rashida Pederson APRN PHARMACEUTICAL PLANT OPERATOR Assigned PCP 10/14/14 07/26/21 [address] [place], [place] [id number] documented as of this encounter
--- OUTSIDE RECORDS SUMMARY | 2022-06-02 16:05 | XMS_ITS | Encounter Summary ---
:1985 Author Organization [place] Address [address] [place] [address] Care Team Providers Name Role Phone Rashida Pederson APRN WARP SPOOLER Primary Care Provider [phone] Rashida Pederson APRN WARP SPOOLER Unavailable [phone] Encounter Details Date Type Department Care Team Description 04/24/2020 Hospital Encounter [facility] Diana Kilgore APRN CNM [address] [place] [address] [address] [place] [id number] [facility] Paula Park CNM [address] [place] [address] Dr [address] [place] [id number] [address] Social History Tobacco Use Types Packs/Day [...] Name Priority Date/Time Associated Diagnosis Comme nts SARS-COV-2 STAT 04/24/2020 10:46 AM Results for this (COVID-19) VIRUS CDT procedure a re in RT-PCR the results section. documented in this encounter Results SARS-CoV-2 COVID-19 Virus (Coronavirus) by PCR (04/24/2020 10:46 AM CDT) [facility] Method Time Signature SARS-CoV-2 Nasopharyngeal 04/24/2020 Virus 2:38 PM CDT Specimen Source SARS-CoV-2 NEGATIVE 04/24/2020 PCR Result 2:38 PM CDT Comment: SARS-CoV2 (COVID-19) RNA not de tected, presumed negative. SARS-CoV-2 PCR Comment Testing was performed using the 04/24/2020 2:38 PM CDT Xpert Xpress SARS-CoV-2 Assay on the Guest of a Guest Comment: [employer]. Additiona l information about this Emergency Use Authorization (EUA) assay can be found v ia the Lab Guide. This test should be ordered for the dete ction of SARS-CoV-2 in individuals who meet SARS-CoV-2 clinical and/or epidemio logical criteria. Test performance is unknown in asymptomatic patients. This test is for in vitro diagnostic use under the FDA EUA for laboratories certified under CLIA to perform high com plexity testing. This test has not been FDA cleared or approved. A negative result does not rule out the presence of PCR inhibitors in the specimen or target RNA in concentration below the limit of detection for the assay. The possibility of a false negati ve should be considered if the patient's recent exposure or clinical pr esentation suggests COVID-19. This test was validated by the [facility]. This laboratory is certified under the Clinical Laboratory Improvement Amendments of 1988 (CLIA-88) as qualified to perform high complexity laboratory testing. 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
--- OUTSIDE RECORDS SUMMARY | 2022-06-02 16:06 | XMS_ITS | Encounter Summary ---
:1985 Author Organization [place] Address [address] [place] [address] Care Team Providers Name Role Phone Rashida Pederson APRN ART SUPERVISOR Primary Care Provider [phone] Rashida Pederson APRN ART SUPERVISOR Unavailable [phone] Reason for Visit Reason Comments Consult Encounter Details Date Type Department Care Team Description 09/05/2019 Office Visit - [facility] Ruchi Decker MD History of pulmonary embolism; [address] Obesity affecting , antepartum [address] [phone] Social History Tobacco Use Types Packs/Day Years [...] Reading Time Taken Comments Blood Pressure 118/80 09/05/2019 12:55 PM ORDER SCHEDULE CLERK Pulse 68 09/05/2019 12:55 PM ORDER SCHEDULE CLERK Temperature - - Respiratory Rate - - Oxygen Saturation - - Inhaled Oxygen Concentration - - Weight 110.7 kg (244 lb) 09/05/2019 12:55 PM ORDER SCHEDULE CLERK Height 167 cm (5' 5.75) 09/05/2019 12:55 PM ORDER SCHEDULE CLERK Body Mass Index 39.68 09/05/2019 12:55 PM ORDER SCHEDULE CLERK documented in this encounter Progress Notes Ruchi Decker - 09/05/2019 1:00 PM CST CC: I was asked to see Logan Sandoval by Karis Hale CNM, secondary to a history of bilateral pulmonary emboli and early . HPI: The pt is a 34 y.o. MWF G1Po at 7.5 weeks gestation who presents with a history as above. She was on OCPs and a smoker at the time and was sitting flores with her dying grandfather. She was treatedwith heparin and Lovenox. She was counseled that she would need prophylaxis during any . She did have testing done which showed low protein C and S and normal factor II and V. She has the prescription for Lovenox but hasn't started it yet. She is aiming to not gain more than 10 pounds with the as she wants as little intervention as possible. Past Medical History: Diagnosis Date ??? Anxiety and depression ??? Pulmonary embolism (H) 07/12/2012 bilateral; on OCPs, smoker, and inactive with sitting flores for dying grandfather ??? Seizure (H) 2003 on Wellbutrin seizure x 1 ??? Varicella childhood Past Surgical History: Procedure Laterality Date ??? APPENDECTOMY Patient's Family History Problem Relation Age of Onset ??? Alcohol abuse Mother ??? Hypertension Father ??? Alcohol abuse Father ??? Hyperlipidemia Father ??? Arthritis Maternal Grandmother ??? Cancer Maternal Grandfather pancreatic ??? No Medical Problems Maternal Aunt ??? No Medical Problems Maternal Uncle ??? Alcohol abuse Paternal Aunt ??? Alcohol abuse Paternal Uncle Patient Social History Socioeconomic History ??? Marital status: Spouse name: Dillon ??? Number of children: 0 ??? Years of education: None ??? Highest education level: None Occupational History ??? 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 Financial resource strain: None ??? Food insecurity: Worry: None Inability: None ??? Transportation needs: Medical: None Non-medical: None Tobacco Use ??? Smoking status: Former Smoker Packs/day: 0.25 Types: Cigarettes ??? Smokeless tobacco: Never Used Substance and Sexual Activity ??? Alcohol use: Yes Alcohol/week: 2.5 standard drinks Types: 3 Standard drinks or equivalent per week ??? Drug use: No ??? Sexual activity: Yes Partners: Male control/protection: I.U.D. Lifestyle ??? Physical activity: Days per week: None Minutes per session: None ??? Stress: None Relationships ??? Social connections: Talks on phone: None Gets together: None Attends yazidism service: None Active member of club or organization: None Attends meetings of clubs or organizations: None Relationship status: None ??? Intimate partner violence: Fear of current or ex partner: None Emotionally abused: None Physically abused: None Forced sexual activity: None Other Topics Concern ??? None Social History Narrative ??? None Outpatient Medications Prior to Visit Medication Sig Dispense Refill ??? cholecalciferol, vitamin D3, (VITAMIN D3) 50 mcg (2,000 unit) capsule Take 1,000 Units by mouth 2 (two) times a day. ??? prenat.vits,ant,eat-aiki-dvuju ( VITAMIN) Tab Take 2 tablets by mouth daily. ??? enoxaparin ANTICOAGULANT (LOVENOX) 40 mg/0.4 mL syringe Inject 0.4 mL (40 mg total) under the skin daily. 30 Syringe 9 No facility-administered medications prior to visit. Patient is allergic to bupropion hcl and estrogens. ROS: 12 part ROS is negative aside from those symptoms in the HPI PE: BP 118/80 Pulse 68 Ht 5' 5.75 (1.67 m) Wt (!) 244 lb (110.7 kg) LMP 07/13/2019 (Exact Date) Body mass index is 39.68 kg/m??. General: obese WF, NAD Psych: normal mood Neuro: CN I-XII grossly intact MS: normal gait Assessment: 34 y.o. MWF at 7.5 weeks gestation with a history of bilateral pulmonary emboli. Plan: Natural history of VTE discussed with the patient. We discussed that she should start the Lovenox in the next couple days. We discussed changeover to heparin around 36 weeks. We discussed possible induction of labor at term. We discussed doing the ultrasound by her 12 week appointment. We discussed ways to help with weight gain - increased protein and regular exercise. I recommended both cardioand yoga. We discussed that if she does end up wanting an epidural they are usually fine in labor. 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 We discussed that I see no reason why she can't receive her care with the CNMs. Questions were answered to the best of my ability. Approximately 30 minutes were spent with the patient with the majority in counseling. R SCHEDULE CLERK documented in this encounter Plan of Treatment Not on filedocumented as of this encounter Visit Diagnoses Diagnosis History of pulmonary embolism Personal history of pulmonary embolism Obesity affecting , antepartum documented in this encounter Additional Health Concerns Assessment Noted Time PHQ-9 Depression Total Score: 7 07/27/2018 7:15 AM ORDER SCHEDULE CLERK documented as of this encounter Care Teams Ironworker Apprentice Shop Relationship Specialty Start Date End Date Rashida Pederson APRN ART SUPERVISOR PCP - General Nurse Practitioner 10/08/14 [address] [place] [address] Rashida Pederson APRN CNP Assigned PCP 10/14/14 07/26/21 [address] [place] [address] documented as of this encounter
--- OUTSIDE RECORDS SUMMARY | 2022-06-02 16:06 | XMS_ITS | Encounter Summary ---
:1985 Author Organization [place] Address [address] [place] [address] Care Team Providers Name Role Phone Rashida Pederson APRN, CNP Primary Care Provider [phone] Rashida Pederson APRN MOTORCOACH DRIVER Unavailable [phone] Encounter Details Date Type Department Care Team Description 03/26/2019 E-Visit [facility] Rashida Pederson (Primary Dx) Ettrick ZIYAD Benitez MOTORCOACH DRIVER [address] [address] [phone] (Wo rk) Social History Tobacco Use Types [...] as of this encounter Visit Diagnoses Diagnosis Anxiety - Primary Anxiety state, unspecified documented in this encounter Additional Health Concerns Assessment Noted Time PHQ-9 Depression Total Score: 7 07/27/2018 7:15 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
--- OUTSIDE RECORDS SUMMARY | 2022-06-02 16:06 | XMS_ITS | Encounter Summary ---
:1985 Author Organization [place] Address [address] [place] [address] Care Team Providers Name Role Phone Rashida Pederson APRN TARE WEIGHER Primary Care Provider [phone] Rashida Pederson APRN TARE WEIGHER Unavailable [phone] Encounter Details Date Type Department Care Team Description 08/24/2019 Communication - [facility] Karis Hale, [facility] 1875 [facility] [address] [facility] [address] [place] [address] Social History Tobacco Use Types [...] Depression Total Score: 7 07/27/2018 7: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
--- OUTSIDE RECORDS SUMMARY | 2022-06-02 16:06 | XMS_ITS | Encounter Summary ---
:1985 Author Organization [place] Address [address] [place] [address] Care Team Providers Name Role Phone Rashida Pederson APRN RN FAMILY PRACTICE Primary Care Provider [phone] Rashida Pederson APRN RN FAMILY PRACTICE Unavailable [phone] Encounter Details Date Type Department Care Team Description 10/09/2019 Ambulatory - [facility] High-ri sk supervision, first trimester; [facility] BMI 39.0-39.9,a dult Social History Tobacco Use Types Packs/Day Years [...] Procedure Name Priority Date/Time Associated Comments Diagnosis URINE CULTURE - Routine 10/09/2019 4:16 PM Result s for this HISTORICAL BIOTECHNOLOGIST procedure are i n the results section. CBC WITH PLATELETS Routine 10/09/2019 2:49 PM Res ults for this AND DIFFERENTIAL BIOTECHNOLOGIST procedure a re in the results section. RUBELLA ANTIBODY IGG Routine 10/09/2019 2:49 PM R esults for this BIOTECHNOLOGIST procedure are i n the results section. HIV ANTIGEN ANTIBODY Routine 10/09/2019 2:49 PM R esults for this COMBO BIOTECHNOLOGIST procedure are i n the results section. TREPONEMA ABS W Routine 10/09/2019 2:49 PM Result s for this REFLEX TO RPR AND BIOTECHNOLOGIST procedure are in TITER the results section. HEPATITIS B SURFACE Routine 10/09/2019 2:49 PM Re sults for this ANTIGEN BIOTECHNOLOGIST procedure are i n the results section. HEMOGLOBIN A1C Routine 10/09/2019 2:49 PM Results for this BIOTECHNOLOGIST procedure are i n the results section. ANTIBODY SCREEN - RED Routine 10/09/2019 2:49 PM Results for this CELL BIOTECHNOLOGIST procedure are i n the results section. ABO AND RH Routine 10/09/2019 2:49 PM Results f or this BIOTECHNOLOGIST procedure are i n the results section. documented in this encounter Results Urine Culture - Historical (10/09/2019 4:16 PM BIOTECHNOLOGIST) athologist Signature Culture No Growth 10/10/2019 [facility] 1:26 PM BIOTECHNOLOGIST [facility] Specimen Anatomical Collection Method Collection Time Receive d Time (Source) Location / / Volume Laterality Urine specimen Non-blood 10/09/2019 4:16 PM 020 6:47 (specimen) Collection / BIOTECHNOLOGIST PM BIOTECHNOLOGIST Unknown Karis BAKER LAB - MICRO GENERAL ORDERABL ES Performing Organization Address City/[facility]/[place] [address] [phone] [address] [facility] Hemoglobin A1c (10/09/2019 2:49 PM BIOTECHNOLOGIST) athologist Signature Hemoglobin A1C 5.4 4.2 - 6.1 10/10/2019 [facility] % 7:54 AM BIOTECHNOLOGIST [facility] Specimen Anatomical Collection Method / Collection Time Recei merry Time (Source) Location / Volume Laterality Blood specimen Venipuncture / 10/09/2019 2:49 10/09/19 20 4:41 (specimen) Unknown PM BIOTECHNOLOGIST PM BIOTECHNOLOGIST Karis Hale CNM LAB - BLOOD ORDERABLES Performing Organization Address City/State/ZIP Code Phon e Number [facility] [address] [facility]-[address] [address] [facility] Treponema Abs w Reflex to RPR and Titer (10/09/2019 2:49 PM BIOTECHNOLOGIST) athologist Signature Treponema Negative Negative 10/10/2019 Antibody Total 10:00 AM BIOTECHNOLOGIST Specimen Anatomical Collection Method / Collection Time Recei merry Time (Source) Location / Volume Laterality Blood specimen Venipuncture / 10/09/2019 2:49 10/09/19 20 4:44 (specimen) Unknown PM BIOTECHNOLOGIST PM BIOTECHNOLOGIST Karis Hale CNM LAB - BLOOD ORDERABLES Hepatitis B surface antigen (10/09/2019 2:49 PM BIOTECHNOLOGIST) athologist Signature Hepatitis B Negative Negative 10/10/2019 Surface 8:33 AM BIOTECHNOLOGIST Antigen Specimen Anatomical Collection Method / Collection Time Recei merry Time (Source) Location / Volume Laterality Blood specimen STRUCTURE OF LEFT Venipuncture / 10/09/2019 2:49 4:44 (specimen) UPPER LIMB / Unknown PM BIOTECHNOLOGIST PM BIOTECHNOLOGIST Unknown Karis Hale CNM LAB - BLOOD ORDERABLES HIV Antigen Antibody Combo (10/09/2019 2:49 PM BIOTECHNOLOGIST) athologist Signature HIV Antigen Negative Negative 10/09/2019 Antibody Combo 5:37 PM BIOTECHNOLOGIST Specimen Anatomical Collection Method / Collection Time Recei merry Time (Source) Location / Volume Laterality Blood specimen Venipuncture / 10/09/2019 2:49 10/09/19 20 4:44 (specimen) Unknown PM BIOTECHNOLOGIST PM BIOTECHNOLOGIST Narrative 10/09/2019 5:37 PM BIOTECHNOLOGIST Method is Lynch HIV Ag/Ab for the detec tion of HIV p24 antigen, HIV-1 antibodies and HIV-2 antibodies. Karis Hale CNM LAB - BLOOD ORDERABLES (ABNORMAL) CBC WITH PLATELETS AND DIFFERENTIAL (10/09/2019 2:49 PM BIOTECHNOLOGIST) athologist Signature WBC 8.6 4.0 - 11.0 10/09/2019 thou/uL 2:56 PM BIOTECHNOLOGIST RBC Count 4.21 3.80 - 10/09/2019 5.40 2:56 PM BIOTECHNOLOGIST mill/uL Hemoglobin 12.8 12.0 - 10/09/2019 16.0 g/dL 2:56 PM BIOTECHNOLOGIST Hematocrit 37.5 35.0 - 10/09/2019 47.0 % 2:56 PM BIOTECHNOLOGIST MCV 89 80 - 100 10/09/2019 fL 2:56 PM BIOTECHNOLOGIST MCH 30.4 27.0 - 10/09/2019 34.0 pg 2:56 PM BIOTECHNOLOGIST MCHC 34.1 32.0 - 10/09/2019 36.0 g/dL 2:56 PM BIOTECHNOLOGIST RDW 12.0 11.0 - 10/09/2019 14.5 % 2:56 PM BIOTECHNOLOGIST Platelet Count 245 140 - 440 10/09/2019 thou/uL 2:56 PM BIOTECHNOLOGIST Mean Platelet 9.6 8.5 - 12.5 10/09/2019 Volume fL 2:56 PM BIOTECHNOLOGIST % Neutrophils 71 (H) 50 - 70 % 10/09/2019 2:56 PM BIOTECHNOLOGIST % Lymphocytes 22 20 - 40 % 10/09/2019 2:56 PM BIOTECHNOLOGIST % Monocytes 6 2 - 10 % 10/09/2019 2:56 PM BIOTECHNOLOGIST % Eosinophils 1 0 - 6 % 10/09/2019 2:56 PM BIOTECHNOLOGIST % Basophils 1 0 - 2 % 10/09/2019 2:56 PM BIOTECHNOLOGIST Absolute 6.1 2.0 - 7.7 10/09/2019 Neutrophils thou/uL 2:56 PM BIOTECHNOLOGIST Absolute 1.9 0.8 - 4.4 10/09/2019 Lymphocytes thou/uL 2:56 PM BIOTECHNOLOGIST Absolute 0.5 0.0 - 0.9 10/09/2019 Monocytes thou/uL 2:56 PM BIOTECHNOLOGIST Eosinophils 0.1 0.0 - 0.4 10/09/2019 Absolute thou/uL 2:56 PM BIOTECHNOLOGIST Absolute 0.0 0.0 - 0.2 10/09/2019 Basophils thou/uL 2:56 PM BIOTECHNOLOGIST Specimen Anatomical Collection Method / Collection Time Recei merry Time (Source) Location / Volume Laterality Blood specimen Venipuncture / 10/09/2019 2:49 10/09/19 20 2:51 (specimen) Unknown PM BIOTECHNOLOGIST PM BIOTECHNOLOGIST Karis Hale CNM LAB - BLOOD ORDERABLES Rubella Antibody IgG Quantitative (10/09/2019 2:49 PM BIOTECHNOLOGIST) Analysis Performed At [facility] Signature Rubella Positive 10/10/2019 [facility] Antibody IgG 9:42 AM BIOTECHNOLOGIST [facility] Specimen Anatomical Collection Method / Collection Time Recei merry Time (Source) Location / Volume Laterality Blood specimen Venipuncture / 10/09/2019 2:49 10/09/19 20 4:44 (specimen) Unknown PM BIOTECHNOLOGIST PM BIOTECHNOLOGIST Narrative O LABORATORY - 10/10/2019 9:42 AM BIOTECHNOLOGIST Negative: Absence of detectable rubella virus IgG antibodies. A negative result presumes that immunity has not been acquired. Equivocal: Suggest recollection. Positive: Considered positive for IgG an tibodies to rubella virus. Karis BAKER LAB - BLOOD ORDERABLES Performing Organization Address City/[facility]/[place] [address] [phone] [facility]-[id number] [place] [id number] [place] [address] Antibody screen red cell (10/09/2019 2:49 PM BIOTECHNOLOGIST) athologist Signature Antibody Negative 10/09/2019 BLOOD BANK Screen 3:58 PM BIOTECHNOLOGIST Specimen Anatomical Collection Method / Collection Time Recei merry Time (Source) Location / Volume Laterality Blood specimen Venipuncture / 10/09/2019 2:49 10/09/19 20 2:51 (specimen) Unknown PM BIOTECHNOLOGIST PM BIOTECHNOLOGIST Karis BAKER LAB - BLOOD BANK TEST ORDER Performing Organization Address City/[facility]/ZIP [facility] Phon e Number [facility] BLOOD BANK [address] [place] [address] BLOOD BANK [address] [place] [address] ABO and Rh (10/09/2019 2:49 PM BIOTECHNOLOGIST) athologist Signature ABO/RH(D) B NEG 10/09/2019 3:31 PM BIOTECHNOLOGIST ABORH REPEAT B NEG 10/09/2019 3:31 PM BIOTECHNOLOGIST Specimen Anatomical Collection Method / Collection Time Recei merry Time (Source) Location / Volume Laterality Blood specimen Venipuncture / 10/09/2019 2:49 10/09/19 20 2:51 (specimen) Unknown PM BIOTECHNOLOGIST PM BIOTECHNOLOGIST Karis Hale CNM LAB - BLOOD BANK TEST ORDER documented in this encounter Visit Diagnoses Diagnosis High-risk supervision, first t rimester BMI 39.0-39.9,adult Body Mass Index 39.0-39.9, adult documented in this encounter Additional Health Concerns Assessment Noted Time PHQ-9 Depression Total Score: 7 07/27/2018 7:15 AM BIOTECHNOLOGIST documented as of this encounter Care Teams Protection Consultant Relationship Specialty Start Date End Date Rashida Pederson APRN RN FAMILY PRACTICE PCP - General Nurse Practitioner 10/08/14 [address] [place] [address] Rashida Pederson APRN RN FAMILY PRACTICE Assigned PCP 10/14/14 07/26/21 [address] [place] [address] documented as of this encounter
--- OUTSIDE RECORDS SUMMARY | 2022-06-02 16:06 | XMS_ITS | Encounter Summary ---
:1985 Author Organization [facility] Address [address] [place] [address] Care Team Providers Name Role Phone Rashida Pederson APRN, CNP Primary Care Provider [phone] Rashida Pederson APRN [employer] Unavailable [phone] Rashida Pederson APRN, CNP Unavailable [phone] Reason for Visit Reason Comments Physical Encounter Details Date Type Department Care Team Description 07/26/2018 Office Visit [facility] Rashida Pederson Routine ge neral medical examination at a health care facility (Primary Dx); [facility] ZIYAD Benitez Encounter for removal of int rauterine contraceptive device [address] [place] [address] [facility] [address] [place], [place] [phone] [id number] Social History Tobacco Use Types Packs/Day Years [...] Sign Reading Time Taken Comments Blood Pressure 132/80 07/26/2018 1:25 PM SUPERINTENDENT MECHANICAL Pulse 96 07/26/2018 1:25 PM SUPERINTENDENT MECHANICAL Temperature 36.8 ??C (98.2 ??F) 07/26/2018 1:25 PM SUPERINTENDENT MECHANICAL Respiratory Rate 14 07/26/2018 1:25 PM SUPERINTENDENT MECHANICAL Oxygen Saturation 97% 07/26/2018 1:25 PM SUPERINTENDENT MECHANICAL Inhaled Oxygen Concentration - - Weight 109.8 kg (242 lb) 07/26/2018 1:25 PM SUPERINTENDENT MECHANICAL Height 167.6 cm (5' 6) 07/26/2018 1:25 PM SUPERINTENDENT MECHANICAL Body Mass Index 39.06 07/26/2018 1:25 PM SUPERINTENDENT MECHANICAL documented in this encounter Patient Instructions Patient InstructionsYessenia Mcgarry, ROSITA - 07/26/2018 1:15 PM CST Preventive Health Recommendations Female Ages 26 - 39 Yearly exam: See your health care provider every year in order to ??? Review health changes. ??? Discuss preventive care. ??? Review your medicines if you your doctor has prescribed any. Until age 30: Get a Pap test every three years (more often if you have had an abnormal result). After age 30: Talk to your doctor about whether you should have a Pap test every 3 years or have a Pap test with HPV screening every 5 years. You do not need a Pap test if your uterus was removed (hysterectomy) and you have not had cancer. You should be tested each year for STDs (sexually transmitted diseases), if you're at risk. Talk to your provider about how often to have your cholesterol checked. If you are at risk for diabetes, you should have a diabetes test (fasting glucose). Shots: Get a flu shot each year. Get a tetanus shot every 10 years. Nutrition: ??? Eat at least 5 servings of fruits and vegetables each day. ??? Eat whole-grain bread, whole-wheat pasta and brown rice instead of white grains and rice. ??? Get adequate Calcium and Vitamin D. Lifestyle ??? Exercise at least 150 minutes a week (30 minutes a day, 5 days of the week). This will help you control your weight and prevent disease. ??? Limit alcohol to one drink per day. ??? No smoking. ?? Wear sunscreen to prevent skin cancer. ?? See your dentist every six months for an exam and cleaning. RINTENDENT MECHANICAL documented in this encounter Progress Notes Rashida Pederson, ZIYAD [employer] - 07/26/2018 1:15 PM CST SUBJECTIVE: CC: Logan Sandoval is an 33 year old woman who presents for preventive health visit. Physical Annual: Getting at least 3 servings of Calcium per day: NO Bi-annual eye exam: NO Dental care twice a year: Yes Sleep apnea or symptoms of sleep apnea: None Diet: Regular (no restrictions) Frequency of exercise: 1 day/week Duration of exercise: Less than 15 minutes Taking medications regularly: Yes Medication side effects: None Additional concerns today: Yes PHQ-2 Total Score: 1 IUD: Requests mirena IUD be removed, is currently not getting her period. IUD placed in 2012. Desires in the next year, recently in 06/2018, plans to use condoms in the future. Last Pap in 03/2016, NIL. Today's PHQ-2 Score: PHQ-2 (??1999 Pfizer) 07/26/2018 Q1: Little interest or pleasure in doing things 1 Q2: Feeling down, depressed or hopeless 0 PHQ-2 Score 1 Q1: Little interest or pleasure in doing things Several days Q2: Feeling down, depressed or hopeless Not at all PHQ-2 Score 1 Abuse: Current or Past(Physical, Sexual or Emotional)- No Do you feel safe in your environment? Yes Social History Tobacco Use ??? Smoking status: Former Smoker Packs/day: 0.50 Years: 10.00 Pack years: 5.00 Types: Cigarettes Last attempt to quit: 07/19/2012 Years since quittin.0 ??? Smokeless tobacco: Never Used Substance Use Topics ??? Alcohol use: Yes Comment: 1-4d 1x/wk Alcohol Use 07/26/2018 If you drink alcohol do you typically have greater than 3 drinks per day OR greater than 7 drinks per week? No No flowsheet data found. Reviewed orders with patient. Reviewed health maintenance and updated orders accordingly - Yes Mammogram not appropriate for this patient based on age. Pertinent mammograms are reviewed under the imaging tab. History of abnormal Pap smear: NO - age 30- 65 PAP every 3 years recommended PAP / HPV 03/27/2016 11/09/2012 PAP NIL NIL Reviewed and updated as needed this visit by clinical staff Tobacco Allergies Meds Med Hx Surg Hx Fam Hx Soc Hx Reviewed and updated as needed this visit by Provider Review of Systems Constitutional: Negative for chills and fever. HENT: Negative for congestion, ear pain, hearing loss and sore throat. Eyes: Negative for pain and visual disturbance. Respiratory: Negative for cough and shortness of breath. Cardiovascular: Negative for chest pain, palpitations and peripheral edema. Gastrointestinal: Negative for abdominal pain, constipation, diarrhea, heartburn, hematochezia and nausea. Breasts: Negative for tenderness, breast mass and discharge. Genitourinary: Positive for pelvic pain and vaginal bleeding. Negative for dysuria, frequency, genital sores, hematuria, urgency and vaginal discharge. Musculoskeletal: Negative for arthralgias, joint swelling and myalgias. Skin: Negative for rash. Neurological: Negative for dizziness, weakness, headaches and paresthesias. Psychiatric/Behavioral: Negative for mood changes. The patient is nervous/anxious. OBJECTIVE: BP 132/80 (BP Location: Left arm, Patient Position: Chair, Cuff Size: Adult Large) Pulse 96 Temp98.2 ??F (36.8 ??C) (Oral) Resp 14 Ht 1.676 m (5' 6) Wt 109.8 kg (242 lb) SpO2 97% BMI 39.06 kg/m?? Physical Exam GENERAL: healthy, alert and no distress RESP: lungs clear to auscultation - no rales, rhonchi or wheezes CV: regular rate and rhythm, normal S1 S2, no S3 or S4, no murmur, click or rub, no peripheral edema : normal female external genitalia, vaginal mucosa pink, moist, well rugated and normal cervix, adnexae, and uterus without masses. Normal vaginal discharge. No CMT. IUD strings visualized. SKIN: no suspicious lesions or rashes NEURO: Normal strength and tone, mentation intact and speech normal PSYCH: mentation appears normal, affect normal/bright ASSESSMENT/PLAN: Logan was seen today for physical. Diagnoses and all orders for this visit: Routine general medical examination at a health care facility - - Pap imaged thin layer screen with HPV - recommended age 30 - 65 years (select HPV order below) - HPV High Risk Types DNA Cervical Encounter for removal of intrauterine contraceptive device REMOVE INTRAUTERINE DEVICE Using a sterile forceps IUD was removed, IUD device intact. After removal scant bleeding. COUNSELING: Reviewed preventive health counseling, as reflected in patient instructions Regular exercise Healthy diet/nutrition BP Readings from Last 1 Encounters: 07/26/18 132/80 Estimated body mass index is 39.06 kg/m?? as calculated from the following: Height as of this encounter: 1.676 m (5' 6). Weight as of this encounter: 109.8 kg (242 lb). BP Screening: Last 3 BP Readings: BP Readings from Last 3 Encounters: 07/26/18 132/80 10/14/17 113/74 09/10/17 120/82 The following was recommended to the patient: Re-screen BP within a year and recommended lifestyle modifications Weight management plan: Discussed healthy diet and exercise guidelines reports that she quit smoking about 6 years ago. Her smoking use included cigarettes. She has a 5.00 pack-year smoking history. she has never used smokeless tobacco. Counseling Resources: ATP IV Guidelines Pooled Cohorts Equation Calculator Breast Cancer Risk Calculator FRAX Risk Assessment ICSI Preventive Guidelines Dietary Guidelines for Americans, 2009 USDA's MyPlate ASA Prophylaxis Lung CA Screening Follow up in 1 year, sooner as needed. Rashida Pederson APRN CNP [facility] [employer]ENDENT [employer]CHANICAL documented in this encounter Plan of Treatment Not on filedocumented as of this encounter Procedures Procedure Name Priority Date/Time Associated Diagnosis Comme nts HC REMOVE Routine 07/26/2018 1:48 PM Routine general INTRAUTERINE DEVICE SUPERINTENDENT MECHANICAL medical examination at a health care facility PAP IMAGED THIN LAYER Routine 07/26/2018 1:48 PM Routine gener al Results for this SCREEN SUPERINTENDENT MECHANICAL medical examination procedur e are in at a health care the results facility section. HPV HIGH RISK TYPES Routine 07/26/2018 1:45 PM Routine general Results for this DNA CERVICAL SUPERINTENDENT MECHANICAL medical examination procedur e are in at a health care the results facility section. documented in this encounter Results Pap imaged thin layer screen with HPV - recommended age 30 - 65 years (select HPV order below) (07/26/2018 1:48 PM SUPERINTENDENT MECHANICAL) Component Value Ref Test Analysis Performed At [facility] Range Method Time Signature PAP NIL FROYATH Thiago Report COPATH Patient Name: LOGAN SANDOVAL MR#: [id number] Specimen #: [id number] Collected: 07/26/2018 Received: 07/27/2018 Reported: 07/28/2018 14:46 Ordering Phy(s): RASHIDA PEDERSON For improved result formatting, select 'View Enhanced Report Format' under Linked Documents section. SPECIMEN/STAIN PROCESS: Pap imaged thin layer prep screening (Surepath, FocalPoint w ith guided screening) ? Pap-Cyto x 1, HPV ordered x 1 SOURCE: Cervical, endocervical ---- Pap imaged thin layer prep screening (Surepath, FocalPoint with guided screening) SPECIMEN ADEQUACY: Satisfactory for evaluation. -Transformation zone component present. CYTOLOGIC INTERPRETATION: Negative for intraepithelial lesion or malignancy Electronically signed out by: MARV Light (ASCP) Processed and screened at [facility] CLINICAL HISTORY: Currently not having periods, Intra-Uterine Device, A previo us normal pap Date of Last Pap: 03/27/2016, Papanicolaou Test Limitations: ??Cervical cytology is a sc reening test with limited sensitivity; regular screening is critical for cancer prevention; Pap tests are p rimarily effective for the diagnosis/prevention of squamous cell carcinoma, not adenocarcinomas or other cancer s. TESTING LAB LOCATION: [address] ??[id number] COLLECTION SITE: Client: ??[facility] Location: [facility] (R) Specimen (Source) Anatomical Collection Method Collection Time Re ceived Time Location / / Volume Laterality Cytologic 07/26/2018 1:48 07/27/2018 material PM SUPERINTENDENT MECHANICAL 10:09 AM SUPERINTENDENT MECHANICAL (specimen) Rashida Pederson BUSINESS MACHINE OPERATOR [facility] - OPTIME CLINICAL SPE CIMEN Performing Organization Address City/State/ZIP Code Phon e Number COPATH HPV High Risk Types DNA Cervical (07/26/2018 1:45 PM SUPERINTENDENT MECHANICAL) [facility] Method Time Signature HPV Source SurePath 07/26/2018 [place] 1:48 PM SUPERINTENDENT MECHANICAL [facility] HPV 16 DNA Negative NEG^Negat 07/29/2018 [facility] 3:48 PM [facility] HPV 18 DNA Negative NEG^Negat 07/29/2018 [facility] Other HR HPV Negative NEG^Negat 07/29/2018 [facility] 3:48 PM [facility] Final This 07/29/2018 [facility] patient's 3:48 PM [facility] sample is [facility] negative for CAMPUS HPV DNA. Comment: This test was developed and its performa nce characteristics determined by the [facility], Molecular Diagnostics Laboratory. It has not been cleared or approved by the FDA. The laboratory is regulated under CLIA as qualified to perform high-compl exity testing. This test is used for clinical purposes. It should not be rega rded as investigational or for research. (Note) METHODOLOGY: ??The [facility] syst em uses automated extraction, simultaneous amplification of HPV (L1 re gion) and beta-globin, ?? followed by ??real time detection of flu [...] followup is recommended. Specimen Description Cervical Cells 07/26/2018 1:4 8 PM SUPERINTENDENT MECHANICAL [facility] Comment: [id number] Specimen Anatomical Collection Method Collection Time Receive d Time (Source) Location / / Volume Laterality Cervical Cells CERVIX UTERI 07/26/2018 1:45 PM 018 2:05 STRUCTURE / SUPERINTENDENT MECHANICAL PM SUPERINTENDENT MECHANICAL Unknown Rashida Pederson APRN [facility] - BLOOD ORDERABLES Performing Organization Address City/State/ZIP Code Phon e Number [facility] [address] [place] [address] [facility] [address] [place] [address] documented in this encounter Visit Diagnoses Diagnosis Routine general medical examination at a health care facility - Primary Encounter for removal of intrauterine co ntraceptive device documented in this encounter Additional Health Concerns Assessment Noted Time PHQ-9 Depression Total Score: 7 07/27/2018 7:15 AM SUPERINTENDENT MECHANICAL documented as of this encounter Care Teams Surgical Services Asst Relationship Specialty Start Date End Date Rashida Pederson APRN PCP - General Nurse Practitioner 10/08/14 [facility] [address] [place] [address] Rashida Pederson APRN PCP - Assigned PCP 10/14/14 10/18/18 [facility] [address] [place] [address] Rashida Pederson APRN Assigned PCP 10/14/14 1 09/26/20 [facility] [address] [place] [address] documented as of this encounter
--- OUTSIDE RECORDS SUMMARY | 2022-06-02 16:06 | XMS_ITS | Encounter Summary ---
:1985 Author Organization [facility] Address [address] [place] [id number] Care Team Providers Name Role Phone Rashida Pederson APRN CUPOLA MELTER Primary Care Provider [phone] Rashida Pederson APRN CUPOLA MELTER Unavailable Reason for Visit Reason Comments Care LMP: 07/13/19 Encounter Details Date Type Department Care Team Description 10/05/2019 Office [facility] Karis Hale High -risk supervision, first trimester; Visit - [facility], [facility] BMI 39.0-39.9,adult; [place] [address] History of pulmonary embolis m; [address] At high risk for venous thromboembolism (VTE) Drive [address] [phone] [id number] (Work) [phone] Social History Tobacco Use Types Packs/Day Years [...] Sign Reading Time Taken Comments Blood Pressure 110/74 10/05/2019 1:23 PM CARTOGRAPHY PROFESSOR Pulse 84 10/05/2019 1:23 PM CARTOGRAPHY PROFESSOR Temperature - - Respiratory Rate - - Oxygen Saturation - - Inhaled Oxygen Concentration - - Weight 111 kg (244 lb 12.8 oz) 10/05/2019 1:23 PM CARTOGRAPHY PROFESSOR Height 167 cm (5' 5.75) 10/05/2019 1:23 PM CARTOGRAPHY PROFESSOR Body Mass Index 39.81 10/05/2019 1:23 PM CARTOGRAPHY PROFESSOR documented in this encounter Progress Notes Karis Hale CNM - 10/05/2019 1:20 PM CST VISIT FIRST OBSTETRICAL EXAM - OB Assessment / Impression First visit at 12w0d History pulmonary embolism, currently on lovenox prophylaxis BMI 39.6 Plan: - IOB labs drawn., Declines GC/CT screening, Pap smear screening not indicated and due 07/2023. and hgbA1C -Pt is low risk and not interested in drawing lead level. -Patient is not eligible or interested in waterbirth. Hep C not drawn today. -Reviewed care schedule and discussed routine OB visits versus problem visits and referrals. Also discussed use of ultrasound in . -ordered early US; reviewed dating. Dating by LMP. -Optimal nutrition and weight gain discussed. weight gain of no weight gain (BMI 40 or greater) encouraged. -high BMI, advised on options for Level II with ECHO, growth US and surveillance at end of and IOL at 39w. Accepts all of the above offered but desires ongoing conversation at the time of recommended care. -Reviewed importance of regular exercise in and help with low back pain and other symptoms. She is on board with healthy weight gain. -Discussed importance of taking aprenatal vitamin with the goal of having 400 mcg of folic acid. Additionally taking a Vitamin D supplement (1,000-2,000 IU/day) and an [place] 3/fish oil/DHA is beneficial. Research also supports taking 150 mcg of Iodine when . -Anticipatory guidance for common questions and concerns reviewed. -Danger s/sx for this trimester reviewed with patient. -Reviewed genetic carrier screening. Patient declines: all today but may consider as she does not know her paternal family medical history. Given handout to review -Reviewed genetic aneuploidy screening options. Patient declines: all but may consider. Encouraged to call insurance to verify coverage. -The following referrals were given to patient for follow up: declined nutrition counseling today. -Reviewed MyChart, lab results, and how lab results are disseminated. -IOB packet given and reviewed with patient, discussed standards of care, scope of practice, clinic and hospital settings, also reviewed clinic versus emergency phone number. -Discussed baby friend hospitals, policies, and recommendations regarding as well as professional and community support. Discussed the benefits of including: decreased childhood obesity or diabetes, decreased recurrence of ear infections, and decreased chance of hospitalization for respiratory conditions Additionally, giving formula instead of breast milk can affect the mother's supply. And formula alters the natural growth of good bacteria in the 's stomach. -CNM services and hospital options reviewed; emergency and scheduling phone numbers given to patient. -Return to clinic 4-6 weeks Total time spent with patient: 40 minutes, >50% time spent counseling and coordinating care. Subjective: Logan Sandoval is a 34 y.o. here today for her First Obstetrical Exam. She is a return HE CNM patient. Was seen for confirmation visit this . Also seen by Dr. Decker for consultation of personal history of pulmonary embolism. Exercise: walking 3 miles on treadmill, yoga Diet: able to eat her normal diet now, high protein snacks, smoothies at work. Eats meat; has good calcium sources. Feeding Plans . 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 Anxiety and depression ??? Pulmonary embolism (H) 07/12/2012 bilateral; on OCPs, smoker, and inactive with sitting flores for dying grandfather ??? Seizure (H) 2003 on Wellbutrin seizure x 1 ??? Varicella childhood Past Surgical History: Procedure Laterality Date ??? APPENDECTOMY Social History Tobacco Use ??? Smoking status: Former Smoker Packs/day: 0.25 Types: Cigarettes ??? Smokeless tobacco: Never Used Substance Use Topics ??? Alcohol use: Yes Alcohol/week: 2.5 standard drinks Types: 3 Standard drinks or equivalent per week ??? Drug use: No Current Outpatient Medications Medication Sig Dispense Refill ??? cholecalciferol, vitamin D3, (VITAMIN D3) 50 mcg (2,000 unit) capsule Take 1,000 Units by mouth 2 (two) times a day. ??? enoxaparin ANTICOAGULANT (LOVENOX) 40 mg/0.4 mL syringe Inject 0.4 mL (40 mg total) under the skin daily. 30 Syringe 9 ??? guar gum (CHEWABLE FIBER ORAL) Take by mouth. 1-2 servings per day. ??? prenat.vits,ant,vxb-yohk-snckk ( VITAMIN) Tab Take 2 tablets by mouth daily. No current facility-administered medications for this visit. Allergies Allergen Reactions ??? Bupropion Hcl Other (See Comments) Seizure ??? Estrogens Other (See Comments) Blood clots Risk Factors: see problem list Review of Systems General: Denies problem Eyes: Denies problem Ears/Nose/Throat: Denies problem Cardiovascular: Denies problem Respiratory: Denies problem Gastrointestinal: Denies problem Genitourinary: Denies problem Musculoskeletal: Denies problem Skin: Denies problem Neurologic: Denies problem Psychiatric: Denies problem Endocrine: Denies problem Heme/Lymphatic: Denies problem Allergic/Immunologic: Denies problem Objective: Objective Vitals: 10/05/19 1323 BP: 110/74 Pulse: 84 Weight: (!) 244 lb 12.8 oz (111 kg) Height: 5' 5.75 (1.67 m) Physical Exam: General Appearance: Alert, cooperative, no distress, appears stated age Head: Normocephalic, without obvious abnormality, atraumatic Eyes: Conjunctiva/corneas clear, does not wear corrective lenses Neck: Supple, symmetrical, trachea midline, no adenopathy Thyroid: not enlarged, symmetric, no tenderness/mass/nodules Back: Symmetric, no curvature, ROM normal, no CVA tenderness Lungs: Clear to auscultation bilaterally, respirations unlabored Heart: Regular rate and rhythm, S1 and S2 normal, no murmur, rub, or gallop Breasts: deferred Abdomen: Soft, non-tender, no masses. Gravid to 12 FHT: 160 bpm Pelvic exam: Not indicated Extremities: Extremities normal, atraumatic, no cyanosis or edema Skin: Skin color, texture, turgor normal, no rashes or lesions Lymph nodes: Cervical, supraclavicular, and axillary nodes normal Neurologic: Alert and oriented x 3. Lab: Results for orders placed or performed in visit on 08/24/19 , Urine Result Value Ref Range Test, Urine Positive (!) Negative OGRAPHY PROFESSOR documented in this encounter Miscellaneous Notes Patient Instructions - HE - Karis Hale CNM - 10/05/2019 1:20 PM CARTOGRAPHY PROFESSOR Welcome to [facility] and thank you for choosing us for your maternity care provider! Congratulations! [facility]wives - Contact information: Appointment line and to get a hold of CNM in clinic Wednesday-Wednesday 8 am - 5 pm: . Thereare some clinics with early start times (1st appointment 7:40 am) and others with evening hours (last appointment 6:20 pm). Most are typically open from 8 am to 5 pm. CNM public relations account executive answering service: . Specify your hospital of choice and leave a brief message for CNM; journeyman power plant operator will then page CNM who is public relations account executive at your specified hospital and you should receive a call back with 15 minutes. Be sure that your ringer is audible and that you can accept blocked calls so that we can get back in touch with you! This number should be reserved for urgent needs ifduring the day, before 8 am, after 5 pm, weekends, holidays. : Body Changes From conception (fertilization) until after the of your child, you and your baby will change every day. To help you understand what is happening, we???ve outlined how begins and some ofthe changes you may notice. How Begins Conception is the union of a sperm and an egg. When it occurs, your baby???s genetic makeup is complete, even its sex. Fertilization takes place in the fallopian tube. The fertilized egg then travels down this tube to the uterus (womb). The egg attaches to the lining of the uterus about a week later. There it grows and is nourished. Your Changing Body affects almost every part of your body. You may notice some of the following physical and emotional changes: ?? Your uterus expands outward and upward as your baby grows. You may feel pressure on your bladder,stomach, and other organs. ?? You may notice skin color changes on your forehead, nose, and cheeks. A dark line may form from your bellybutton down to your pubic area. The skin color around your nipples and thighs may also change. ?? Hendrix stretch ivan may appear on your abdomen, breasts, or hips. ?? Your hair may seem thicker. You lose less hair during . ?? You may feel fine one day and weepy the next. This is caused by changes in your body, such as increased hormones (chemicals that affect the function of certain organs and also your moods). Adapting to : First Trimester As your body adjusts, you may have to change or limit your daily activities. You???ll need more rest. You may also need to use the energy you have more wisely. Eat stomach-friendly foods like cottage cheese, crackers, or bread throughout the day. Your Changing Body Almost every part of your body is affected as you adapt to . The uterus and cervix will begin to soften right away. You may not look very during the first three months. But you are likely to have some common signs of early : ?? Nausea ?? Fatigue ?? Frequent urination ?? Mood swings ?? Bloating of the abdomen ?? Missed or light periods (first trimester bleeding) ?? Nipple or breast tenderness, breast swelling ?? It???s Not Too Late to Start Good Habits What matters most is protecting your baby from this moment on. If you smoke, drink alcohol, or use drugs, now is the time to stop. If you need help, talk with your health care provider. ?? Smoking increases the risk of stillbirth or having a odl-wcvpn-npcxiw baby. If you smoke, quit now. ?? Alcohol and drugs have been linked with miscarriage, defects, intellectual disability, and low weight. Do not drink alcohol or take drugs. Tips to Relieve Nausea Although nausea can occur at any time of the day, it may be worse in the morning. To help prevent nausea: ?? Eat small, light meals at frequent intervals. ?? Get up slowly. Eat a few unsalted crackers before you get out of bed. ?? Drink water with lemon slices. ?? Eat an ice pop in your favorite flavor. ?? Ask your health care provider about taking tevin or vitamin B6 for nausea and vomiting. ?? Talk with your health care provider if you take vitamins that upset your stomach. Work Concerns The end of the first trimester is a good time to discuss working during with your employer. Follow your health care provider???s advice if your job requires you to stand for a long time, workwith hazardous tools, or even sit at a desk all day. Your workspace, workload, or scheduled hours may need to be adjusted. Perhaps you can change body postures more often or take an extra break. Advice for Travel Talk to your health care provider first, but the second trimester may be the best time for any travel. You may be advised to avoid certain trips while you???re . Food and water can be concerns in developing countries. Travel by car is a good choice, as you can stop, get out, and stretch. Bring snacks and water along. Fasten the lap belt below your belly, low over your hips. Also be sure to wear the shoulder harness. Intimacy Unless your health care provider tells you to, there is no reason to stop having sex while you???re . You or your partner may notice changes in desire. Desire may be less in the first trimester, due to nausea and fatigue. In the second trimester, sex may be very enjoyable. The third trimester can be a challenge comfort-deras. Try different positions and see what???s best for you both. : Your First Trimester Changes The first trimester is a time of rapid development for your baby. Because your baby is growing so quickly, it is important that you start a healthy lifestyle right away. By the end of the first trimester, your baby has formed all of its major body organs and weighs just over an ounce. Month 1 (Weeks 1-4) The placenta (the organ that nourishes your baby) begins to form. The heart and lungs begin to develop. Your baby is about 1/4 inch long by the end of the first month. Month 2 (Weeks 5-8) All of your baby???s major body organs form. The face, fingers, toes, ears, and eyes appear. By the end of the month, your baby is about 1 inch long. Month 3 (Weeks 9-12) Your baby can open and close its fists and mouth. The sexual organs begin to form. As the first trimester ends, your baby is about 4 inches long. : Your Weight Being a healthy weight is important for both you and your baby. The weight you gain now is not just extra fat. It is also the weight of your baby. And it is the increased blood and fluids to support the baby. A slow, steady rate of gain is best. How much you should gain depends on your weight before getting . Check with your health care provider to find out what is right for you. If You Gain Too Much Gaining too much weight might cause you to feel tired or you could have a harder or .If you and your health care provider decide you???re gaining too much: ?? Eat fewer fats and sugars. Instead, eat fruit, vegetables, and whole-grain foods. ?? Drink plenty of water between meals. ?? Get at least 20 minutes of light exercise, such as walking, each day. ?? Don???t diet. You might not get enough of the nutrients you or your baby needs. ?? Keep a diet diary to help you gauge what and how much you are eating . If You???re Not Gaining Enough If you don???t gain enough, your baby could be too small or have health problems. Women tend to gainmost of their weight in the second and third trimesters. For now: ?? Eat many types of foods. Make sure you get enough calcium, protein, and carbohydrates. ?? Don???t skip meals. ?? Eat healthy snacks. ?? Pick nutrient-dense, high calorie healthy food like trail mix or protein shakes. ?? See a dietitian for help. ?? Talk to your healthcare provider if you have had an eating disorder or problems with certain foods. : Common Questions There are plenty of myths and ???old wives??? tales?? surrounding . You may need help fact from fiction. On this sheet, you???ll find answers to a few common questions. If you haveother questions, talk with a mattress maker. Will Working Harm My Baby? In most cases, working throughout your is not harmful at all. There may be concerns if thejob involves dangerous machinery or chemicals, lifting, or standing for very long periods of time. Talk to your health care provider and employer about your particular job and . Why Can???t I Change the Cat Litter Box? Cats carry a disease called toxoplasmosis. In adult humans, it shows up as a mild infection of the blood and organs. If you are infected during , the baby???s brain and eyes could be damaged. To be safe, have someone else change the litter. If you must handle it, wear a paper mask over your nose and mouth. Also, wear gloves and wash your hands afterward. Which Medications Are Safe? No prescription or jsmx-spa-ogbmuog drug is safe for everyone all of the time. But sometimes medications are needed. Be sure your health care provider knows you are . Then use only the medications he or she advises you to take. Please refer to the below resources for further information and discuss concern and questions with your mattress maker. Is It True That I Can Overheat My Baby? Yes. To avoid making your baby too warm: ?? Don???t sit in a jacuzzi. A long, warm bath is fine, but not in water over 100??F. ?? Exercise less intensely if you feel fatigued. Base your workout on how you feel, not your heart rate. Heart rates aren???t a good way to measure effort during . Can I Lift and Carry Safely? Yes, if your health care provider doesn???t tell you otherwise. Learn to lift and carry safely to avoid injury and reduce back pain during . To protect your back: ?? Bend at the knees to bring the load nearer. ?? Get a good redevelopment specialist. Test the weight of the load. ?? Tighten your abdomen. Exhale as you lift. ?? Lift with your legs, not with your back. ?? Carry the load close to your body. ?? Hold the load so you can see where you are going. What If I Get Sick? Most women get sick at least once during . Talk with your health care provider if you do. Most likely it will not affect your . Get plenty of rest and fluids, and eat what you can. Talk to your health care provider before taking any medications. HEALTHY CARE: 10-14 WEEKS By weeks 10 to 14 of your , the placenta has formed inside your uterus. It may be possible to hear your baby's heartbeat with a doppler ultrasound device. Your baby's eyes can and do move. Thearms and legs can bend. GENETIC SCREENING OPTIONS AT [facility] ??? All testing is optional. We don???t recommend or discourage any test; it is totally up to you and your partner. Some couples wish to know their risk of having a baby with a genetic defect and others do not. We will support your decision. Abnormal results may lead to a discussion of options for further testing. ??? Accurate dating of your is important for all testing so an ultrasound may be done prior to referral or testing. ??? No testing provides certainty; there are false positives and negatives associated with all testing, some more than others. ??? Most genetic testing is non-invasive (requires only a blood sample and sometimes an ultrasound or both). ??? It is always deras to check with your insurance carrier before proceeding. ??? Some testing can be done at our lab and some require a referral. ??? If you decide to do no testing, the 20 week ultrasound scan, which is a routine or standard ultrasound, has some ability to detect abnormalities in the baby, and identifies obstetric problems. ??? If you are over 35, you will have the option of a Level II ultrasound, which is a more detailed and targeting scan, that helps detect anomalies as well as obstetric problems. ??? If you have a more complex family history of chromosomal abnormalities, a referral to a genetic counselor and/or a Maternal Medicine specialist, to help identify available tests, may be recommended. TYPES OF GENETIC TESTING AVAILABLE INCLUDE: Carrier Screening/Testing for Genetic Conditions ??? There are many inherited conditions for which testing or carrier testing is available. Carrier screening can test for conditions like Cystic Fibrosis, Thalassemia, Car Sachs, Sickle Cell, Hemophilia, Muscular Dystrophy, Coleman???s disease and many others. ??? Cystic Fibrosis (CF) affects both males and females and people from all racial and ethnic groups. However, the disease is most common among Caucasians of Northern descent. CF is also common among Latinos and English Indians. The disease is less common among Americans and Americans. More than 10 million Americans are carriers of a faulty CF gene and many of them don't know that they are CF carriers. One or both parents can be tested any time before or during . ??? Talk to your care provider about your family history and whether you should be screened. A referral to a genetic counselor at [facility] or [facility] can be made by your care provider at any time. ??? This is also tested for in the [place] Metabolic Screen that your receives 24 hours afterbirth. DNA cell Testing: [place] or Innatal (Non-Invasive Testing) ??? At 10 wk or greater, a blood sample can be drawn here at clinic or at any of our referral offices. It will provide highly accurate results with low false positive rates for trisomy 18, trisomy 21 (Down Syndrome), and trisomy 13 (> 99% trisomy detection rate at a false positive rate of <0.1%). Gender identification can also be obtained if desired (98% accuracy). Can also detect some sex-linked chromosomal abnormalities (80-90% accuracy). This is often done if one of the other screening tests is abnormal. 1st Trimester Screening: ??? Everyone has an age related risk of having a baby with a genetic abnormality. This testing provides a risk profile which is better than assigning risk based solely on your age. ? ? Refines your risk of having a baby with a chromosomal abnormality such as Trisomy 21 & 18. ??? This test with detect a fetus with one of these disorders about 85% of the time. ??? A thickened nuchal fold can also be associated with cardiac defects. ??? This test requires a blood collection combined with ultrasound to obtain a measurement of fluid at back of baby???s neck (nuchal translucency). ??? False positive results occur approximately 5% of cases. ??? An additional blood sample may be necessary in order to calculate your risk of having a baby with a neural tube defect (e.g. spina bifida). This is called the AFP test (alpha protein). An ultrasound should be able to pick out hand any spinal defect as well. ??? Follow-up of an abnormal test may include a more extensive ultrasound study and you may be offered an amniocentesis (a small sample of amniotic fluid is withdrawn and studied) for a definitive diagnosis Quad Screen (4-marker screen) ??? Between 15 and 21 weeks, a sample of blood can be drawn at our lab to assess your risk of havinga baby with Down Syndrome, Trisomy 18 and neural tube defects. Such testing is able to detect these conditions in 80% of cases and the false-positive rate is approximately 5%. ??? Follow-up of an abnormal test may include a more extensive ultrasound study and you may be offered an amniocentesis (a small sample of amniotic fluid is withdrawn and studied) for a definitive diagnosis Referrals opportunities include: ??? [facility] [facility], [facility], [facility] o Offers nuchal translucency ultrasound; does not offer genetic counseling. ??? [facility] and [facility] ([facility]): o Approximately an hour long visit includes 30 min with genetic counselor who discusses all testing available and which ones might be beneficial to you based on age, personal and family history. o Blood will be drawn and the nuchal translucency ultrasound will be discussed and performed if desired. The Free DNA testing ([place]/[facility]) can be drawn also. o Targeted or detailed Level II ultrasounds are also available with these perinatology groups. : a Healthy Option for You and Your Baby Consider for the healthiest way to feed your baby. Ask your mattress maker or physician for more information. The choice of how you will feed your baby is important. Before your baby???s , you???ll want tolearn about the benefits of . [facility] have been designated Baby Friendly; an initiative that was created by the World Health Organization and UNICEF. This helps give you and your baby the best start in feeding their baby. Why should I breastfeed my baby? Babies are less likely to develop childhood obesity or diabetes ??? Babies are less likely to suffer from recurrent ear infections ??? Babies are less likely to be hospitalized for respiratory conditions ??? Breast milk is rich in nutrients and antibodies-it is easy to digest How does it benefit me? Lowers the risk for diabetes, breast and ovarian cancer and depression ??? Moms can lose ???baby weight?? more quickly ??? Cost savings - formula can cost well over $1,500 per year ??? Convenient - no bottles and nipples to sterilize, no measuring and mixing formula ??? The physical contact with can make babies feel secure, warm and comforted What about formula? While you and your baby are staying with us at [facility], we will support whatever feeding choice you make for your baby. Some important considerations: ??? The [employer] Academy of Pediatrics, the World Health Organization, and many more organizations recommend exclusive for 6 months and continued while adding other foods for the first 1-2 years. ??? Any amount of breastmilk has benefits to both baby and mother. ??? Giving formula in replacement of can affect mother???s milk supply. If formula is needed, hospital staff will work with you on a plan to help develop your milk supply. ??? Formula alters the natural growth of good bacteria in the stomach. ??? Research has found that first time mothers who offer formula in the hospital have a shorter duration of . How can I start to prepare? Start by having a conversation with your medical provider. ??? Talk with your partner, family and friends. ??? Attend a class that includes preparation. and classesare offered by [employer] [place]. Visit Zopim for class information. ??? After your baby???s , hospital staff and consultants will help you and your baby get off to a great start with . As your center of gravity and weight changes, use good body mechanics when changing positions and lifting. For example, use a straight back and your legs for support when lifting instead of bending over. Maintain good posture to prevent straining your muscles. Now is a good time to continue or restartyour exercise program. Walking 30-60 minutes daily is an excellent way to keep fit. Yoga and swimming also offer many benefits. The nausea and fatigue of early have usually started to let up, so this is a good time to focus on nutrition. Consider attending a nutrition class. A healthy diet includes about 60 grams of protein each day (3-4 servings of dairy, 2-3 servings of meat/fish/poultry/nuts), 4-6 servings of whole grain foods, and 5-6 servings of fruits and vegetables. Remember to drink 6-8 glasses of water daily. Watch for warning signs, such as ?? vaginal bleeding ?? fluid leaking from your vagina ?? severe abdominal pain ?? nausea and vomiting more than 4-5 times a day, or if you are unable to keep anything down ?? fever more than 100.4 degrees F. RESOURCES You can refer to the Starting Out Right book or find it online at http://www.[facility].org/images/s tories/maternity/CobmwdMani-Kvaasity-Rli-Right.pdf or http://www.[facility].org/images/stories/meg frazier/wpmnwmovaa-worsdnva-zyd-right/jigiffykef-sxeasgry-hrn-right.html#p=8 You can sign up for a weekly parenting e-mail that gives support, tips and advice from health healthcare administrative assistant that starts with and continues through the toddler years. To register, go to www.[facility].org/baby at any time during your . : OUTPATIENT RESOURCES Baby Friendly Hospitals and clinics: https://www.[facility].org/maternity/rbwlb-cwlngayki-jeof/baby-friendly.html -Schedule an appointment with a [facility] CNM who is also a Electrical Engineering Designer by calling [phone] -Schedule an appointment with a [facility] CNM who is also a Electrical Engineering Designer by calling [phone]. We see women for visits at [facility] and [facility]. -Baby Caf?? and interested in ? Need [...] for the Baby Caf?? closest to you! Hmong, Wolof, and South Korean which is may be available at some sites. [facility] [address] [place] [address] Wednesday: 10am-12pm [facility] [address] [place] [address] Wednesday 4-6pm [facility] [address] [place] [address] Wednesday 10am-12:30pm [facility] [address] [place] [address] Wednesdays: 4-6pm -Attend a baby weigh in at [facility]. consultants are available to answer questions Katja: Tuesdays 1:00 - 2:00 [facility], [facility]: Mondays 1:00 - 2:00 www.Zopim -Attend one of the New Mama groups at [facility] in [facility]. [facility] also offers one-on-one in home and in office consults. www.Deskwanted -Attend a Lukas Oconnor meeting. Multiple groups in several locations throughout the [facility]. The meetings are no-cost and always informative education session through [facility] Belem Oconnor Www.acosta.org/ Held at [facility] the second of each month at 7pm Childbirth and Parenting Education: [facility]: http://Zopim/ [phone] [place]: (education, yoga & wellness) www.[employer] [facility]: www.Deskwanted Childbirth collective: (Parent topic nights) www.childbirthcollective.org/ Hypnobabies: www.hypnobabiestwincities.com/ Hypnobirthing: Http://hypnobirthing.com/ Book Recommendations: Susan Loyola's Birthing From Within--first few chapters include a [...] deciding to wean and deciding not to. [employer] Nurse-Midwives (ACNM) http://www.mattress maker.org/; look at the informational handouts at http://www.mattress maker.org/Trwcl-Bzvm-Lismq www.mymidwife.org Mother to Baby (Medication and Herbal guidance in ): http://www.mothertobaby.org Toll-Free Hotline: 172.708.3918 LactMed (Medication use while ): http://toxnet.nlm.nih.gov/newtoxnet/lactmed.htm Women's Health.gov: http://www.womenshealth.gov/a-z-topics/index.html English association - http://americanpregnancy.org Centering (group care option): http://centeringhealthcare.org Information about doulas: Childbirth collective: http://www.childbirthcollective.org/ [facility] [place] (CARRI): www.carri.org [facility] envelope machine operator project: http://Aminex Therapeuticscitiesdoulaproject.com/ Sponge Hooker and Family Education (ECFE): ECFE offers parents hands-on learning experiences that will nourish a lifetime of teachable moments. http://ecfe.info/ecfe-home/ October www.Contractor Copilot.com FDA - Nutrition www.mypyramid.gov Under For Consumers, [...] away from blogs and chat rooms please! Nutrition & supplements: vitamin (those with 600-1000 mcg folic acid and 27 mg of iron are enough). Take with food or Juice 4-5 servings of dairy or other calcium rich foods (fish, leafy greens, soy) per day - if not, take 500-1000 mg additional calcium (Tums, pills, chews). Take with dairy Vitamin D3 6637-1560 IU geltab daily. Take with fattiest meal. Look for fortified foods also (Dairy,Juice) 2-3 (4) oz servings of fish, seafood, nuts (walnuts & almonds), oils, avocado per week - if not,take [place] 3 Fatty acids: DHA & SAV 9330-1228 mg per day. Other names: cod liver oil, fish oil. Take with fattiest meal. Some prenatals have DHA, but typically not a sufficient dose. Fish: Do not eat shark, swordfish, katalina mackerel, or tilefish when you are or . They contain high levels of mercury. Limit white (albacore) tuna to no more than 6 ounces per week. Http://www.fda.gov/downloads/ForConsumers/ConsumerUpdates/GJV297365.pdf Touring the Maternity Care Center To schedule a tour at either [place] or [facility], please do so online using the following links: [facility] - https://www.Embrace.Undertone/registerlist.asp?s=6&m=303&vs=5&p=2& amp;loakv=918&ps=1&group=37&it=1&pag=654 [facility] - https://www.Embrace.Undertone/registerlist.asp?s=6&m=303&vs=5&p=2&a mp;geuzk=980&ps=1&group=38&it=1&dtf=818 You are invited to Meet the [facility] Nurse-Midwives A way to tour the hospital Labor and Delivery unit and meet the midwives that attend births since you may not have the opportunity to meet them during your care. Some sessions are informal meet and greet type social hours, others address a specific concern or topic. Thursday, September 27, 2018 7-8pm [facility] Friday, November 30, 2018 7-8pm [facility], Auditorium A March 7-8pm [place] Friday June 28, 2019 7-[address] 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 PROFESSOR documented in this encounter Plan of Treatment Not on filedocumented as of this encounter Visit Diagnoses Diagnosis High-risk supervision, first t rimester BMI 39.0-39.9,adult Body Mass Index 39.0-39.9, adult History of pulmonary embolism Personal history of pulmonary embolism At high risk for venous thromboembolism (VTE) documented in this encounter Additional Health Concerns Assessment Noted Time PHQ-9 Depression Total Score: 7 07/27/2018 7:15 AM CARTOGRAPHY PROFESSOR documented as of this encounter Care Teams Chief Learning Officer Relationship Specialty Start Date End Date Rashida Pederson APRN CUPOLA MELTER PCP - General Nurse Practitioner 10/08/14 [id number] [place], [place] [id number] Rashida Pederson APRN CUPOLA MELTER Assigned PCP 10/14/14 07/26/21 [address] [place], [place] [id number] documented as of this encounter
--- OUTSIDE RECORDS SUMMARY | 2022-06-02 16:06 | XMS_ITS | Encounter Summary ---
:1985 Author Organization [facility] Address [address] [place] [address] Care Team Providers Name Role Phone Rashida Pederson APRN STREETCAR MOTORMAN Primary Care Provider [phone] Rashida Pederson APRN STREETCAR MOTORMAN Unavailable [phone] BgRashida cornejo APRN STREETCAR MOTORMAN Unavailable [phone] Reason for Visit Reason Comments Back Pain Encounter Details Date Type Department Care Team Description 10/14/2017 Office Visit [facility] Donavon Szymanski Acute le ft-sided low Clinic [facility] PA-C back pain without [address] [address] [facility] sciatica (Primary Dx) [place] [address] [phone] Social History Tobacco Use Types Packs/Day Years [...] Sign Reading Time Taken Comments Blood Pressure 113/74 10/14/2017 11:46 AM DATASTAGE CONSULTANT Pulse 118 10/14/2017 11:46 AM DATASTAGE CONSULTANT Temperature 37.1 ??C (98.8 ??F) 10/14/2017 11:46 AM DATASTAGE CONSULTANT Respiratory Rate 16 10/14/2017 11:46 AM DATASTAGE CONSULTANT Oxygen Saturation - - Inhaled Oxygen Concentration - - Weight 110.2 kg (243 lb) 10/14/2017 11:46 AM DATASTAGE CONSULTANT Height - - Body Mass Index 39.22 09/10/2017 1:10 PM DATASTAGE CONSULTANT documented in this encounter Patient Instructions Patient InstructionsDonavon Szymanski PA-C - 10/14/2017 12:09 PM DATASTAGE CONSULTANT Images from the original note were not included. Back Care Tips Caring for your back These are things you can do to prevent a recurrence of acute back pain and to reduce symptoms from chronic back pain: ?? Maintain a healthy weight. If you are overweight, losing weight will help most types of back pain. ?? Exercise is an important part of recovery from most types of back pain. The muscles behind and infront of the spine support the back. This means strengthening both the back muscles and the abdominal muscles will provide better support for your spine.? Swimming and brisk walking are good overall exercises to improve your fitness level. ?? Practice safe lifting methods (below). ?? Practice good posture when sitting, standing and walking. Avoid prolonged sitting. This puts morestress on the lower back than standing or walking. ?? Wear quality shoes with sufficient arch support. Foot and ankle alignment can affect back symptoms. Women should avoid wearing high heels. ?? Therapeutic massage can help relax the back muscles without stretching them. ?? During the first 24 to 72 hours after an acute injury or flare-up of chronic back pain, apply an ice pack to the painful area for 20 minutes and then remove it for 20 minutes, over a period of 60 to90 minutes, or several times a day. As a safety precaution, do not use a heating pad at bedtime. Sleeping on a heating pad can lead to skin dia or tissue damage. ?? You can alternate ice and heat therapies. Medications Talk to your healthcare provider before using medicines, especially if you have other medical problems or are taking other medicines. ?? You may use acetaminophen or ibuprofen to control pain, unless your healthcare provider prescribed other pain medicine. If you have chronic conditions like diabetes, liver or kidney disease, stomachulcers, or gastrointestinal bleeding, or are taking blood thinners, talk with your healthcare provider before taking any medicines. ?? Be careful if you are given prescription pain medicines, narcotics, or medicine for muscle spasm.They can cause drowsiness, affect your coordination, reflexes, and judgment. Do not drive or operateheavy machinery while taking these types of medicines. Take prescription pain medicine only as prescribed by your healthcare provider. Lumbar stretch Here is a simple stretching exercise that will help relax muscle spasm and keep your back more limber. If exercise makes your back pain worse, don???t do it. ?? Lie on your back with your knees bent and both feet on the ground. ?? Slowly raise your left knee to your chest as you flatten your lower back against the floor. Hold for 5 seconds. ?? Relax and repeat the exercise with your right knee. ?? Do 10 of these exercises for each leg. Safe lifting method ?? Don???t bend over at the waist to lift an object off the floor.?? Instead, bend your knees and hips in a squat.? Keep your back and head upright ?? Hold the object close to your body, directly in front of you. ?? Straighten your legs to lift the object.? Lower the object to the floor in the reverse fashion. ?? If you must slide something across the floor, push it. Posture tips Sitting Sit in chairs with straight backs or low-back support. Keep your knees lower than your hips, with your feet flat on the floor. When driving, sit up straight. Adjust the seat forward so you are not leaning toward the steering wheel.?? A small pillow or rolled towel behind your lower back may help if you are driving long distances.?? Standing When standing for long periods, shift most of your weight to one leg at a time. Alternate legs everyfew minutes.?? Sleeping The best way to sleep is on your side with your knees bent. Put a low pillow under your head to support your neck in a neutral spine position. Avoid thick pillows that bend your neck to one side. Put apillow between your legs to further relax your lower back. If you sleep on your back, put pillows under your knees to support your legs in a slightly flexed position. Use a firm mattress. If your mattress sags, replace it, or use a 1/2-inch plywood board under the mattress to add support. Follow-up care Follow up with your??healthcare provider, or as advised. If X-rays, a CT scan or an MRI scan were taken, they will be reviewed by a radiologist. You will be notified of any new findings that may affect your care. Call 911 Seek emergency medical care if any of the following occur: ?? Trouble breathing ?? Confusion ?? Very drowsy ?? Fainting or loss of consciousness ?? Rapid or very slow heart rate ?? Loss of?? bowel or bladder control When to seek medical care Call your healthcare provider if any of the following occur: ?? Pain becomes worse or spreads to your arms or legs ?? Weakness or numbness in one or both arms or legs ?? Numbness in the groin area Date Last Reviewed: 01/15/2016 ?? [id number] [employer]. [address] [place] [address]. All rights reserved. This information is not intended as a substitute for professional medical care. Always follow your healthcare professional's instructions. Exercises to Strengthen Your Lower Back Strong lower back and abdominal muscles work together to support your spine. The exercises below will help strengthen the lower back. It is important that you begin exercising slowly and increase levels gradually. Always begin any exercise program with stretching. If you feel pain while doing any of these exercises, stop and talk to your doctor about a more specific exercise program that better suits your condition.?? Low back stretch The point of stretching is to make??you more flexible and increase your range of motion. Stretch only as much as you are able. Stretch slowly. Do not push your stretch to the limit. If at any point youfeel pain while stretching, this is your (temporary) limit. ?? Lie on your back with your knees bent and both feet on the ground. ?? Slowly raise your left knee to your chest as you flatten your lower back against the floor. Hold for 5 seconds. ?? Relax and repeat the exercise with your right knee. ?? Do 10 of these exercises for each leg. ?? Repeat hugging both knees to your chest at the same time. Building lower back strength Start your exercise routine with 10 to 30 minutes a day, 1 to 3 times a day. Initial exercises Lying on your back: 1. Ankle pumps: Move your foot up and down, towards your head, and then away. Repeat 10 times with each foot. 2. Heel slides: Slowly bend your knee, drawing the heel of your foot towards you. Then slide your heel/foot??from you, straightening your knee. Do not lift your foot off the floor (this is not a leg lift). 3. Abdominal contraction: Bend your knees and put your hands on your stomach. Tighten your stomach muscles. Hold for 5 seconds, then relax. Repeat 10 times. 4. Straight leg raise: Bend one leg at the knee and keep the other leg straight. Tighten your stomach muscles. Slowly lift your straight leg 6 to 12 inches off the floor and hold for up to 5 seconds. Repeat 10 times on each side. Standin. Wall squats: Stand with your back against the wall. Move your feet about 12 inches away from the wall. Tighten your stomach muscles, and slowly bend your knees until they are at about a 45 degree angle. Do not go down too far. Hold about 5 seconds. Then slowly return to your starting position. Repeat 10 times. 2. Heel raises: Stand facing the wall. Slowly raise the heels of your feet up and down, while keeping your toes on the floor. If you have trouble balancing, you can touch the wall with your hands. Repeat 10 times. More advanced exercises When you feel comfortable enough, try these exercises. 1. Kneeling lumbar extension: Begin on your hands and knees. At the same time, raise and straighten your right arm and left leg until they are parallel to the ground. Hold for 2 seconds and come back slowly to a starting position. Repeat with left arm and right leg, alternating 10 times. 2. Prone lumbar extension: Lie face down, arms extended overhead, palms on the floor. At the same time, raise your right arm and left leg as high as comfortably possible. Hold for 10 seconds and slowlyreturn to start. Repeat with left arm and right leg, alternating 10 times. Gradually build up to 20 times. (Advanced: Repeat this exercise raising both arms and both legs a few inches off the floor at the same time. Hold for 5 seconds and release.) 3. Pelvic tilt: Lie on the floor on your back with your knees bent at 90 degrees. Your feet should be flat on the floor. Inhale, exhale, then slowly contract your abdominal muscles bringing your navel toward your spine. Let your pelvis rock back until your lower back is flat on the floor. Hold for 10 seconds while breathing smoothly. 4. Abdominal crunch: Perform a pelvic tilt (above) flattening your lower back against the floor. Holding the tension in your abdominal muscles, take another breath and raise your shoulder blades off the ground (this is not a full sit- up). Keep your head in line with your body (don???t bend your neck forward). Hold for 2 seconds, then slowly lower. Date Last Reviewed: 01/15/2016 ?? [id number] [employer]. [address] [place] [address], [place] [address]. All rights reserved. This information is not intended as a substitute for professional medical care. Always follow your healthcare professional's instructions. STAGE CONSULTANT documented in this encounter Progress Notes Donavon Szymanski PA-C - 10/14/2017 11:30 AM CST SUBJECTIVE: Logan Arredondo is a 32 year old female who presents to clinic today for the following health issues: Back Pain ?? Duration: Wednesday Specific cause: felt a pull while leaning over to grab something ?? Description: Location of pain: low back middle Character of pain: shooting pain at times with movement, constant dull ache Pain radiation:none New numbness or weakness in legs, not attributed to pain: no ?? Intensity: Currently 5-6/10, At its worst 8-9/10 ?? History: Pain interferes with job: YES-will need note for work History of back problems: previous herniated disc Any previous MRI or X-rays: None Sees a specialist for back pain: chiro Therapies tried without relief: ibuprofen ?? Alleviating factors: Improved by: percocet ?? Precipitating factors: Worsened by: sitting to standing ?? Functional and Psychosocial Screen (Ramya STarT Back): Not performed today ?? Accompanying Signs & Symptoms: Risk of Fracture: None Risk of Cauda Equina: None Risk of Infection: None Risk of Cancer: None Risk of Ankylosing Spondylitis: Onset at age <35, male, AND morning back stiffness. no Problem list and histories reviewed & adjusted, as indicated. Additional history: as documented Patient Active Problem List Diagnosis ??? History of pulmonary embolism ??? Dysmenorrhea ??? Mirena IUD (intrauterine device) in place ??? Panic attack ??? Major depression, recurrent (H) ??? Anxiety ??? CARDIOVASCULAR SCREENING; LDL GOAL LESS THAN 160 Past Surgical History: Procedure Laterality Date ??? ABDOMEN SURGERY ??? APPENDECTOMY 1992 Social History Substance Use Topics ??? Smoking status: Former Smoker Packs/day: 0.50 Years: 10.00 Types: Cigarettes Quit date: 07/19/2012 ??? Smokeless tobacco: Never Used ??? Alcohol use Yes Comment: 1-4d 1x/wk Family History Problem Relation Age of Onset ??? Alcohol/Drug Mother biologic mom ??? Obesity Mother & MGM, PGM, PGF ??? Alcohol/Drug Father biologic & adopted ??? Depression Father & Mother ??? Substance Abuse Father ??? Myocardial Infarction Maternal Grandfather stent palcement ??? Coronary Artery Disease Maternal Grandfather ??? Alzheimer Disease Maternal Grandmother & PGF ??? DIABETES No family hx of ??? Hypertension No family hx of ??? CANCER No family hx of Current Outpatient Prescriptions Medication Sig Dispense Refill ??? cyclobenzaprine (FLEXERIL) 10 MG tablet Take 0.5-1 tablets (5-10 mg) by mouth 3 times daily as needed for muscle spasms 30 tablet 1 ??? methylPREDNISolone (MEDROL DOSEPAK) 4 MG tablet Follow package instructions 21 tablet 0 ??? escitalopram (LEXAPRO) 20 MG tablet TAKE 1 TABLET (20 MG) BY MOUTH DAILY 90 tablet 2 ??? LORazepam (ATIVAN) 0.5 MG tablet Take 1 tablet (0.5 mg) by mouth every 8 hours as needed for anxiety 30 tablet 0 ??? levonorgestrel (MIRENA) 20 MCG/24HR IUD 1 each by Intrauterine route once ??? [DISCONTINUED] escitalopram (LEXAPRO) 20 MG tablet Take 1 tablet (20 mg) by mouth daily (Patientnot taking: Reported on 10/14/2017) 90 tablet 2 Allergies Allergen Reactions ??? Estrogens Patient had estrogen associated PE ??? Wellbutrin [Bupropion] Other (See Comments) seizure BP Readings from Last 3 Encounters: 10/14/17 113/74 09/10/17 120/82 04/21/17 130/82 Wt Readings from Last 3 Encounters: 10/14/17 243 lb (110.2 kg) 09/10/17 227 lb (103 kg) 04/21/17 227 lb (103 kg) Reviewed and updated as needed this visit by clinical staff Tobacco Allergies Meds Problems Med Hx Surg Hx Fam Hx Soc Hx Reviewed and updated as needed this visit by Provider Allergies Meds Problems ROS: Constitutional, neuro, msk, skin, cardiovascular, pulmonary, gi and gu systems are negative, except as otherwise noted. OBJECTIVE: BP 113/74 (BP Location: Right arm, Patient Position: Chair, Cuff Size: Adult Large) Pulse 118 Temp 98.8 ??F (37.1 ??C) (Oral) Resp 16 Wt 243 lb (110.2 kg) BMI 39.22 kg/m2 Body mass index is 39.22 kg/(m^2). GENERAL: alert, mild distress and uncomfortable Comprehensive back pain exam: No tenderness, Pain limits the following motions: flexion, bilateral lateral bend and rotation, Lower extremity strength functional and equal on both sides, Lower extremity reflexes within normal limits bilaterally, Lower extremity sensation normal and equal on both sidesand Straight leg raise negative bilaterally, but pain in lower back with this. PSYCH: mentation appears normal, affect normal/bright Diagnostic Test Results: none ASSESSMENT/PLAN: (M54.5) Acute left-sided low back pain without sciatica (primary encounter diagnosis) Comment: no evidence of neurologic compromise at this time. A mild herniated disc is possible vs muscular. No pain on exam however. Will treat with prn flexeril for spasms, medrol dose nikolas, continued prn otc analgesia, and scheduled alternating heat and ice. Home stretching and exercising discussed. See patient instructions. Work note given. If no improvement in 1-2 weeks, will have start therapy as well. If worsening, patient should RTC. If incontinence experienced, patient to go to ER. Plan: cyclobenzaprine (FLEXERIL) 10 MG tablet, methylPREDNISolone (MEDROL DOSEPAK) 4 MG tablet -Medication use and side effects discussed with the patient. Patient is in complete understanding and agreement with plan. Follow up: as above oDnavon Szymanski PA-C [facility] STAGE CONSULTANT documented in this encounter Plan of Treatment Not on filedocumented as of this encounter Visit Diagnoses Diagnosis Acute left-sided low back pain without s ciatica - Primary documented in this encounter Additional Health Concerns Assessment Noted Time PHQ-9 Depression Total Score: 11 09/11/2017 7:41 AM CS T documented as of this encounter Care Teams Biology Faculty Member Relationship Specialty Start Date End Date Rashida Pederson APRN PCP - General Nurse Practitioner 10/08/14 [employer] [address] [place] [address] Rashida Pederson APRN PCP - Assigned PCP 10/14/14 10/18/18 [employer] [address] [place] [address] Rashida Pederson APRN Assigned PCP 10/14/14 1 09/26/20 [employer] [address] [place] [address] documented as of this encounter
--- OUTSIDE RECORDS SUMMARY | 2022-06-02 16:06 | XMS_ITS | Encounter Summary ---
:1985 [facility] Address [address] [place] [address] Home Phone Mobile Phone Email Address Email Address Preferred Language Portuguese Marital Status Single Roman Catholic Affiliation Unknown Race White Ethnic Group Unknown Author Organization [facility] Address [address] [place] [address] Care Team Providers Name Role Phone Rashida Pederson APRN ELECTRONIC RESOURCES LIBRARIAN Primary Care Provider [phone] Rashida Pederson APRN ELECTRONIC RESOURCES LIBRARIAN Unavailable [phone] BgRashida cornejo APRN ELECTRONIC RESOURCES LIBRARIAN Unavailable [phone] Reason for Visit Reason Comments Medication Refill Encounter Details Date Type Department Care Team Description 09/30/2017 Refill M [facility] Tiffanie Irvin, Medication Refill [id number] [place] [id number] [place], [place] [id number] (Wo rk) Social History Tobacco Use Types Packs/Day Years Used Date Smoking Tobacco: Former Cigarettes 0.5 10 Quit : 07/19/2012 Smokeless Tobacco: Never Alcohol Use Standard Drinks/Week Comments Yes 0 (1 standard drink = 0.6 oz pure alcoho l) 1-4d 1x/wk Sex Assigned at Date Recorded Not on file documented as of this encounter Miscellaneous Notes Telephone Encounter - Paula Poe RN - 10/04/2017 2:07 PM CST Duplicate Paula Poe RN, BSN Message handled by Nurse Triage. URE WRITER documented in this encounter Plan of Treatment Not on filedocumented as of this encounter Visit Diagnoses Diagnosis Mild episode of recurrent major depressi ve disorder (H) Anxiety Anxiety state, unspecified documented in this encounter Additional Health Concerns Assessment Noted Time PHQ-9 Depression Total Score: 11 09/11/2017 7:41 AM CS T documented as of this encounter Care Teams Check Inspector Relationship Specialty Start Date End Date Rashida Pederson APRN PCP - General Nurse Practitioner 10/08/14 [employer]RON[employer] LIBRARIAN [address] [place] [address] Rashida Pederson APRN PCP - Assigned PCP 10/14/14 10/18/18 ELECTRONIC RESOURCES LIBRARIAN [address] [place] [address] Rashida Pederson APRN Assigned PCP 10/14/14 1 09/26/20 ELECTRONIC RESOURCES LIBRARIAN [address] [place] [address] documented as of this encounter
--- OUTSIDE RECORDS SUMMARY | 2022-06-02 16:06 | XMS_ITS | Encounter Summary ---
:1985 Author Organization [facility] Address [address] [place] [address] Care Team Providers Name Role Phone Rashida Pederson APRN SEASONAL DELIVERY DRIVER Primary Care Provider [phone] Rashida Pederson APRN SEASONAL DELIVERY DRIVER Unavailable [phone] Encounter Details Date Type Department Care Team Description 09/07/2019 Communication - [facility] Karis Hale, [facility] [address] [facility] [address] [facility] [address] [place] [address] Social History Tobacco Use Types [...] Depression Total Score: 7 07/27/2018 7:15 AM DATA ANALYSIS MANAGER documented as of this encounter Care Teams Physical Therapy Assistant Relationship Specialty Start Date End Date Rashida Pederson APRN SEASONAL DELIVERY DRIVER PCP - General Nurse Practitioner 10/08/14 [address] [place], [place] [id number] Rashida Pederson APRN SEASONAL DELIVERY DRIVER Assigned PCP 10/14/14 07/26/21 [address] [place], [place] [id number] documented as of this encounter
--- OUTSIDE RECORDS SUMMARY | 2022-06-02 16:06 | XMS_ITS | Encounter Summary ---
:1985 Author Organization [facility] Address [address] [place] [address] Care Team Providers Name Role Phone Rashida Pederson APRN MAP CLERK Primary Care Provider [phone] Rashida Pederson APRN MAP CLERK Unavailable [phone] Rashida Pederson APRN MAP CLERK Unavailable [phone] Encounter Details Date Type Department Care Team Description 07/26/2018 Travel Social History Tobacco Use Types Packs/Day Years [...] Depression Total Score: 7 07/27/2018 7:15 AM CANARY RAISER documented as of this encounter Care Teams Hspt Tutor Relationship Specialty Start Date End Date Rashida Pederson APRN PCP - General Nurse Practitioner 10/08/14 [address] CL[employer] [address] [place] [address] Rashida Pederson APRN PCP - Assigned PCP 10/14/14 3 MAP CLERK [address] [facility], [place] [id number] Rashida Pederson APRN Assigned PCP 10/14/14 1 09/26/20 [employer]ERK [address] [place] [address] documented as of this encounter
--- OUTSIDE RECORDS SUMMARY | 2022-06-02 16:06 | XMS_ITS | Encounter Summary ---
:1985 Author Organization [facility] Address [address] [place] [address] Care Team Providers Name Role Phone Rashida Pederson APRN CORRECTIONAL OFFICER Primary Care Provider [phone] Rashida Pederson APRN CORRECTIONAL OFFICER Unavailable [phone] Reason for Visit Reason Comments Test Encounter Details Date Type Department Care Team Description 08/24/2019 Office Visit - [facility] Karis Hale ble ; [facility], [facility] examination or test, positive result; [place] [address] [facility] History of pulmonary embolis m; [id number] BMI 40.0-44.9, adult (H) Drive [address] [facility] [address] [place], [place] [phone] (Work) [phone] Social History Tobacco Use Types Packs/Day Years [...] Sign Reading Time Taken Comments Blood Pressure 116/80 08/24/2019 2:00 PM ASSOCIATE MERCHANDISE PLANNER Pulse 68 08/24/2019 2:00 PM ASSOCIATE MERCHANDISE PLANNER Temperature - - Respiratory Rate 16 08/24/2019 2:00 PM ASSOCIATE MERCHANDISE PLANNER Oxygen Saturation - - Inhaled Oxygen Concentration - - Weight 111.6 kg (246 lb) 08/24/2019 2:00 PM ASSOCIATE MERCHANDISE PLANNER Height 167 cm (5' 5.75) 08/24/2019 2:00 PM ASSOCIATE MERCHANDISE PLANNER Body Mass Index 40.01 08/24/2019 2:00 PM ASSOCIATE MERCHANDISE PLANNER documented in this encounter Progress Notes Karis Hale, ABDOUL - 08/24/2019 2:00 PM CST Confirmation of Visit Subjective: Logan is a 34 y.o. y.o. female who presents to clinic today for a confirmation of visit. She is accompanied by her spouse Dillon. She is an existing [facility] patient but new to [facility] care. 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 Patient's last menstrual period was 07/13/2019 (exact date).. Her menstrual cycle is typically 28-32. Last period was normal. is planned/desired. Was not on contraception; Mirena IUD prior to trying for Home UPT positive on 08/06/19 Current symptoms also include: breast tenderness, fatigue and nausea. Has questions about eligibility for care with CNMs with current medical history and plan of care. Exercise: 2 times a week, walking and yoga Safety (seatbelt, gun access, IPV, hx abuse): negative screens Tobacco/Alcohol/Drug Use: none, smoking cessation with EPDS today: not screened Sexual Partners: 1 male spouse Last Breast Exam: 1 year ago PSFH: Electronic Health Record updated for Medications, Allergies, Medical History, Surgical Historyand Family History. A 12 point comprehensive review of systems was negative except as noted. Objective: BP 116/80 (Patient Site: Left Arm, Patient Position: Sitting, Cuff Size: Adult Regular) Pulse 68 Resp 16 Ht 5' 5.75 (1.67 m) Wt (!) 246 lb (111.6 kg) LMP 07/13/2019 (Exact Date) No BMI 40.01 kg/m?? Vitals: 08/24/19 1400 Weight: (!) 246 lb (111.6 kg) Body mass index is 40.01 kg/m??. General: alert, articulate, well-groomed, well nourished female. Not in any apparent distress. Physical Exam is deferred at this time. Lab Review Urine HCG: positive Assessment/Plan: 1. confirmation. UPT in clinic positive. 2. Discussed maternity care options at [facility]- philosophy, care models, and locations. 3. Early education reviewed and written information given including: first trimester discomforts and relief measures. Nutrition principles in early briefly discussed and encouraged exercise plan, minimizing caffeine, avoiding alcohol/drugs, checking with healthcare providers about RX/OTC medications before using them (Tylenol and Benadryl okay to use), emotional self-care/support,and general self-care. Encouraged PNV with folic acid, vitamin D, and DHA supplements. 4. Dating ultrasound discussed. Accepts referral to Karen Guerrero to confirm dating. Discuss transvaginal u/s if <12 wks GA. 5. Genetic screening options briefly discussed and offered: First trimester screen + NT (11-13.6wks @ [facility]), [facility] (10-12wks), Verify (any time). Pt aware of options and will discuss further at IOB. 6. Pt encouraged to follow-up for IOB visit between 10 and 12 weeks. 7. Reviewed warning signs to call clinic if cramping /bleeding/spotting. 8. Reviewed plan of care with history PE including referral to HOTBED LEVER OPERATOR, will consult CNM group on appropriateness of care with CNMs, start lovenox at 8 weeks per recommendations and ordered to pt pharmacy. TT spent with patient, 45 mns, all of which was spent in counseling or coordination of care Karis Hale, LOLA, ACCOUNT ADJUSTER, ABDOUL CIATE MERCHANDISE PLANNER documented in this encounter Miscellaneous Notes Patient Instructions - HE - Karis Hale CNM - 08/24/2019 2:00 PM ASSOCIATE MERCHANDISE PLANNER Welcome to [facility] and thank you for choosing us for your maternity care provider! Congratulations! [facility] Nurse Midwives - Contact information: Appointment line and to get a hold of CNLemuel in clinic Wednesday-Wednesday 8 am - 5 pm: . Thereare some clinics with early start times (1st appointment 7:40 am) and others with evening hours (last appointment 6:20 pm). Most are typically open from 8 am to 5 pm. CNM merchandising execution manager answering service: . Specify your hospital of choice and leave a brief message for CNM; glue jointer operator will then page CNM who is merchandising execution manager at your specified hospital and you should [...] nipples and thighs may also change. ?? [place] stretch ivan may appear on your abdomen, [...] the risk of stillbirth or having a atg-zhlit-gxxohl baby. If you smoke, quit now. ?? [...] If you haveother questions, talk with a chief nuclear medicine technologist. Will Working Harm My Baby? In most [...] Which Medications Are Safe? No prescription or jqxq-nqm-qzwlsri drug is safe for everyone all of the time. But sometimes medications are needed. Be sure your health care provider knows you are . Then use only the medications he or she advises you to take. Please refer to the below resources for further information and discuss concern and questions with your chief nuclear medicine technologist. Is It True That I Can Overheat [...] the load nearer. ?? Get a good oncology rep. Test the weight of the load. ?? [...] legs can bend. GENETIC SCREENING OPTIONS AT [facility] ??? All testing is optional. We [...] Car Sachs, Sickle Cell, Hemophilia, Muscular Dystrophy, [place]???s disease and many others. ??? Cystic Fibrosis (CF) affects both males and females and people from all racial and ethnic groups. However, the disease is most common among Caucasians of Northern descent. CF is also common among Latinos and Sen[place]alese Indians. The disease is less common among [...] A referral to a genetic counselor at [facility] or [facility] can be made by your care provider at any time. ??? This is also tested for in the [place] Metabolic Screen that your receives 24 hours afterbirth. DNA cell Testing: [place] or [facility]atal (Non-Invasive Testing) ??? At 10 [...] protein). An ultrasound should be able to package pick up any spinal defect as well. ??? Follow-up [...] definitive diagnosis Referrals opportunities include: ??? [facility] waxing machine operator, [facility], [facility] o Offers nuchal translucency ultrasound; does not offer genetic counseling. ??? [facility] and [facility] ([facility]): o Approximately an hour long visit includes 30 min with genetic counselor who discusses all testing available and which ones might be beneficial to you based on age, personal and family history. o Blood will be drawn and the nuchal translucency ultrasound will be discussed and performed if desired. The Free DNA testing ([place]/ClairMaili) can be drawn also. o Targeted or detailed Level II ultrasounds are also available with these perinatology groups. : a Healthy Option for You and Your Baby Consider for the healthiest way to feed your baby. Ask your chief nuclear medicine technologist or physician for more information. The choice of how you will feed your baby is important. Before your baby???s , you???ll want tolearn about the benefits of . [facility] have been designated Baby Friendly; an [...] your baby are staying with us at [facility], we will support whatever feeding choice you make for your baby. Some important considerations: ??? The [place] Academy of Pediatrics, the World Health Organization, [...] that includes preparation. and classesare offered by [facility]. Visit [place] for class information. ??? After your baby???s [...] book or find it online at http://www.healtheast.org/images/s tories/maternity/UyfdrvWrfa-Mcljtymi-Ela-Right.pdf or http://www.healtheast.org/images/stories/flipbo oks/wgbrbkygtp-lpsaedxs-xby-right/gnuwjfhazz-dnesvqaa-ojn-right.html#p=8 You can sign up for a weekly parenting e-mail that gives support, tips and advice from health medicare coordinator that starts with and continues through the toddler years. To register, go to www.healtheast.org/baby at any time during your . : OUTPATIENT RESOURCES Baby Friendly Hospitals and clinics: https://www.[facility].org/maternity/kjzef-bwziiulte-dlgv/baby-friendly.html -Schedule an appointment with a [facility] CNLemuel who is also a Employment Advisor by calling [phone] -Schedule an appointment with a [facility] who is also a Employment Advisor by calling [phone]. We see women for visits at [place], [place] and [facility]. -Baby Caf?? and interested in ? Need [...] the Baby Caf?? closest to you! Hmong, English, and Liberian which is may be available at some sites. [facility] [address] [place] [address] Wednesday: 10am-12pm [address] [address] Wednesday 4-6pm [address] [address] Wednesday 10am-12:30pm [employer] [facility] [address] [place] [address] Wednesdays: 4-6pm -Attend a baby weigh in at [facility]. consultants are available to answer questions Katja: Tuesdays 1:00 - 2:00 [facility]: Mondays 1:00 - 2:00 www.[employer] -Attend one of the New Mama groups at [facility] in [facility]. [facility] also offers one-on-one in home and in office consults. www.Confluent (Oblix / Oracle)[facility].[employer] -Attend a LeLeche League meeting. Multiple groups in several locations throughout the [facility]. The meetings are no-cost and always informative education session through [facility] [place] Www.lllojamesas.org/ Childbirth and Parenting Education: [facility] center: http://B[employer]b.[employer]itor [employer]/ (559) 048-BABY Herminia: (education, yoga & wellness) www.Posit Science.[employer] [facility]: www.TalentBin.[employer] Childbirth collective: (Parent topic nights) www.childbirthcollective.org/ Hypnobabies: www.hypnobabiestInteliCoat Technologies.com/ Hypnobirthing: Http://hypnobirthing.com/ Book Recommendations: Susan Kensett's Birthing From Within--first few chapters include a [...] deciding to wean and deciding not to. [place] College of Nurse-Midwives (ACNM) http://www.chief nuclear medicine technologist.org/; look at the informational handouts at http://www.chief nuclear medicine technologist.org/Lsiug-Kwpt-Ljfog www.mymidwife.org Mother to Baby (Medication and Herbal guidance in ): http://www.mothertobaby.org Toll-Free Hotline: 247.925.6531 LactMed (Medication use while ): http://toxnet.nlm.nih.gov/newtoxnet/lactmed.htm Women's Health.gov: http://www.womenshealth.gov/a-z-topics/index.html [place]e association - http://americanpregnancy.org Centering (group care option): http://centeringhealthcare.org Information about doulas: Childbirth collective: http://www.childbirthcollective.org/ Doulas of [place] (CARRI): www.carri.org [facility] utilization review specialist project: http://twincitiesdoulaproject.com/ Carry In Worker and Family Education (ECFE): ECFE offers parents hands-on learning experiences that will nourish a lifetime of teachable moments. http://ecfe.info/ecfe-home/ October www.Sparkroom.[employer]itor [employer] FDA - Nutrition www.mypyramid.gov Under For Consumers, click on and women. Centers for Disease Control and Prevention (CDC) - Vaccines : http://www.cdc.gov/vaccines/ When researching information on the web, question the validity of websites. The domains .gov, .Nonlinear Dynamics and.org tend to be more reliable information. [...] pills, chews). Take with dairy Vitamin D3 2356-9465 IU geltab daily. Take with fattiest meal. Look for fortified foods also (Dairy,Juice) 2-3 (4) oz servings of fish, seafood, nuts (walnuts & almonds), oils, avocado per week - if not,take [place] 3 Fatty acids: DHA & SAV 4807-0358 mg per day. Other names: cod liver oil, fish oil. Take with fattiest meal. Some prenatals have DHA, but typically not a sufficient dose. Fish: Do not eat shark, swordfish, katalina mackerel, or tilefish when you are or . They contain high levels of mercury. Limit white (albacore) tuna to no more than 6 ounces per week. Http://www.fda.gov/downloads/ForConsumers/ConsumerUpdates/MJR126570.pdf Touring the Maternity Care Center To schedule a tour at either [place] or [facility], please do so online using the following links: [facility] - https://www.TeaMobicenter.com/registerlist.asp?s=6&m=303&vs=5&p=2& amp;wveha=449&ps=1&group=37&it=1&idw=358 [facility] - https://www.Wavebornistrationcenter.com/registerlist.asp?s=6&m=303&vs=5&p=2&a mp;ujmsu=629&ps=1&group=38&it=1&lfa=802 You are invited to Meet the [facility] Nurse-Midwives A way to tour the hospital Labor and Delivery unit and meet the midwives that attend births since you may not have the opportunity to meet them during your care. Some sessions are informal meet and greet type social hours, others address a specific concern or topic. Thursday, September 27, 2018 7-8pm [facility] Friday, November 30, 2018 7-8pm [facility], Auditorium A March 7-8pm [place] Friday June 28, 2019 7-8 pm [facility], Auditorum A Please call [phone] to register CIATE MERCHANDISE PLANNER documented in this encounter Plan of Treatment Not on filedocumented as of this encounter Procedures Procedure Name Priority Date/Time Associated Comments Diagnosis HCG QUALITATIVE URINE Routine 08/24/2019 2:04 PM Results for this ASSOCIATE MERCHANDISE PLANNER procedure are i n the results section. documented in this encounter Results (ABNORMAL) HCG qualitative urine (08/24/2019 2:04 PM ASSOCIATE MERCHANDISE PLANNER) [facility] Method Time Signature hCG Urine Positive (A) Negative 08/24/2019 [facility] Qualitative 2:06 PM ASSOCIATE MERCHANDISE PLANNER [facility] Specimen Anatomical Collection Method Collection Time Receive d Time (Source) Location / / Volume Laterality Urine specimen Non-blood 08/24/2019 2:04 PM 020 2:04 (specimen) Collection / ASSOCIATE MERCHANDISE PLANNER PM ASSOCIATE MERCHANDISE PLANNER Unknown Narrative [facility] - 08/24/2019 2:0 6 PM ASSOCIATE MERCHANDISE PLANNER This test is for screening purposes. Res ults should be interpreted along with the clinical picture. Confirmation testing i s available if warranted by ordering Test 143, Beta HCG, Quantitative. Karis Hale CNM LAB - URINE ORDERABLES Performing Organization Address City/State/ZIP Code Phon e Number [facility] Clinic - [place], [place] [address] Emergency Technician Lab [address] [place] [address] [facility] [address] [place] [address] [phone] [facility] documented in this encounter Visit Diagnoses Diagnosis Possible examination or test, unconfirmed examination or test, positive result History of pulmonary embolism Personal history of pulmonary embolism BMI 40.0-44.9, adult (H) Body Mass Index 40.0-44.9, adult documented in this encounter Additional Health Concerns Assessment Noted Time PHQ-9 Depression Total Score: 7 07/27/2018 7:15 AM ASSOCIATE MERCHANDISE PLANNER documented as of this encounter Care Teams Payer Specialist Relationship Specialty Start Date End Date Rashida Pederson APRN CORRECTIONAL OFFICER PCP - General Nurse Practitioner 10/08/14 [address] [place] [address] Rashida Pederson APRN CORRECTIONAL OFFICER Assigned PCP 10/14/14 07/26/21 [address] [place] [address] documented as of this encounter
--- OUTSIDE RECORDS SUMMARY | 2022-06-02 16:06 | XMS_ITS | Encounter Summary ---
:1985 Author Organization [facility] Address [address] [place] [address] Care Team Providers Name Role Phone Rashida Pederson APRN, CNP Primary Care Provider [phone] Rashida Pederson APRN BUILDING INSULATION SUPERVISOR Unavailable [phone] BgRashida cornejo APRN BUILDING INSULATION SUPERVISOR Unavailable [phone] Reason for Visit Reason Onset Date Comments Panel Management 01/04/2018 depression Encounter Details Date Type Department Care Team Description 01/04/2018 Telephone [facility] Rashida Pederson [facility] ZIYAD Benitez CNP (depression) [address] [place] [id number] [phone] Social History Tobacco Use Types Packs/Day Years Used Date Smoking Tobacco: Former Cigarettes 0.5 10 Quit : 07/19/2012 Smokeless Tobacco: Never Alcohol Use Standard Drinks/Week Comments Yes 0 (1 standard drink = 0.6 oz pure alcoho l) 1-4d 1x/wk Sex Assigned at Date Recorded Not on file documented as of this encounter Miscellaneous Notes Telephone Encounter - Zuleima Strong CMA - 01/31/2018 11:39 AM CDT PHQ9 updated. FYI - SH - med list updated. Pt states that she weaned herself off of Lexapro. She also did not fish bait picker the Ativan. Pt is exercising more and doing ok being off of the Lexapro. Pt will come in to see in the fall to have Mirena removed. Zuleima Strong CMA Telephone Encounter - Yessenia Mcgarry CMA - 01/04/2018 9:38 AM CDT Panel Management Review Patient has the following on her problem list: Depression / Dysthymia review Measure: Needs PHQ-9 score of 4 or less during index window. Administer PHQ-9 and if score is 5 or more, send encounter to provider for next steps. 5 - 7 month window range: 01/08/2018 - 05/11/2018 PHQ-9 SCORE 02/15/2017 04/21/2017 09/10/2017 Total Score - - - Total Score MyChart - - 11 (Moderate depression) Total Score 7 9 11 If PHQ-9 recheck is 5 or more, route to provider for next steps. Patient is due for: None Composite cancer screening Chart review shows that this patient is due/due soon for the following None Summary: Patient is due/failing the following: PHQ9 Action needed: Patient needs to do PHQ9. Type of outreach: Sent Fleck - The Bigger Picture message. Questions for provider review: None Yessenia Mcgarry CMA Chart routed to Care Team . documented in this encounter Plan of Treatment Not on filedocumented as of this encounter Visit Diagnoses Not on filedocumented in this encounter Additional Health Concerns Assessment Noted Time PHQ-9 Depression Total Score: 3 02/01/2018 7:12 AM CDT documented as of this encounter Care Teams Social Service Worker Relationship Specialty Start Date End Date Rashida Pederson APRN PCP - General Nurse Practitioner 10/08/14 [facility] [address] [place] [address] Rashida Pederson APRN PCP - Assigned PCP 10/14/14 10/18/18 BUILDING INSULATION SUPERVISOR [address] [place] [place], [place] [id number] Rashida Pederson APRN Assigned PCP 10/14/14 1 09/26/20 BUILDING INSULATION SUPERVISOR [address] [place], [place] [id number] documented as of this encounter
--- OUTSIDE RECORDS SUMMARY | 2022-06-02 16:06 | XMS_ITS | Encounter Summary ---
:1985 Author Organization [facility] Address [address] [place] [address] Care Team Providers Name Role Phone Rashida Pederson APRN COMPUTER SERVICE TECHNICIAN Primary Care Provider [phone] Rashida Pederson APRN COMPUTER SERVICE TECHNICIAN Unavailable Reason for Visit Reason Comments Care 17w5d Encounter Details Date Type Department Care Team Description 11/14/2019 Office [facility] Paty Lewis gh-risk Visit - [facility] , second [facility] [address] trimester [address] [place] [place] [address] [address] [facility] [phone] [place] (Work) [place], [place] [phone] [address] (Fax) [phone] Social History Tobacco Use Types Packs/Day Years [...] Sign Reading Time Taken Comments Blood Pressure 112/70 11/14/2019 1:59 PM CDT Pulse 84 11/14/2019 1:59 PM CDT Temperature - - Respiratory Rate - - Oxygen Saturation - - Inhaled Oxygen Concentration - - Weight 111.1 kg (245 lb) 11/14/2019 1:59 PM CDT Height 167.6 cm (5' 6) 11/14/2019 1:59 PM CDT Body Mass Index 39.54 11/14/2019 1:59 PM CDT documented in this encounter Progress Notes Paty Lewis CNM - 11/14/2019 2:00 PM CDT Logan Sandoval is here for MELISSA at 17w5d. Nausea improved. Thinks she feels movement this week for the first time. Happy to hear heart rate! 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 Trying to get fresh air every day- walking dogs. Weight gain chart shared. Hoping to gain no more than 10pounds. Discussed options for Level II US vs routine survey in consideration of risk factors. Pt opts for routine FAS and ordered. She will call to schedule for 18-2 weeks. Taking Lovenox daily. Discussed next visit would be a phone visit and then in- person visit at 28 weeks due to need for Rhophylac.Discussed rationale for this injection. Discussed 1-hour GCT, Hgb, and RPR as well as Tdap vaccine for 28 week visit as well. She will accept Tdap. documented in this encounter Miscellaneous Notes Patient Instructions - HE - Paty Lewis CNM - 11/14/2019 2:00 PM CDT [facility] Nurse Midwives - Contact information: Appointment line and to get a hold of CNM in clinic Wednesday-Wednesday 8 am - 5 pm: . Thereare some clinics with early start times (1st appointment 7:40 am) and others with evening hours (last appointment 6:20 pm). Most are typically open from 8 am to 5 pm. CNM cyber systems operations specialist answering service: . Specify your hospital of choice and leave a brief message for CNM; broke beater machine operator will then page CNM who is cyber systems operations specialist at your specified hospital and you should [...] F. You are invited to Meet the [facility] Nurse-Midwives A way to tour the hospital Labor and Delivery unit and meet the midwives that attend births since you may not have the opportunity to meet them during your care. Some sessions are informal meet and greet type social hours, others address a specific concern or topic. Thursday, September 27, 2018 7-8pm [facility] Friday, November 30, 2018 7-8pm [facility] March 7-8pm [place] Friday June 28, 2019 7-8 pm [facility] Please call [phone] to register UNDERSTANDING LABOR Going into labor before your 37th week of is called labor. labor can causeyour baby to be born too soon. This can lead to a number of health problems that may affect your baby. From 28-35 weeks, Patients are advised to be evaluated at [facility] [place] since they have a Intensive Care Unit [...] second or third trimester Evaluating Labor Your interface analyst will try to find out whether you???re [...] cervix is still thick and closed, the interface analyst may ask you to do the following at home: ?? Drink plenty of water. ?? Do fewer activities. ?? Rest in bed on your side. ?? Avoid intercourse and nipple stimulation. When to Call Your Professor Of Kinesiology ?? Five or more contractions per hour [...] too early. Testing for Gestational Diabetes in [facility] Nurse-Midwives are committed to providing safe care during your . We follow the recommendations of the [place] Diabetes Association and the [place] College of Obstetricians and Gynecologists to test all women for gestational diabetes. Testing early in (if you have risk factors) and testing all women between 26-28 weeks follows local and national guidelines forcare during . Clients who feel that they cannot consent to such testing, may choose to transfer their care to our network systems consultant obstetricians. What is the test? Eat [...] is confirmed and a referral to a consumer educator will be made. If the level is [...] will be made to visit with the consumer educator. The educator will help you to make [...] years after their . Additional Information The [place] College of Nurse Midwives (ACNM) provides an information sheet describing diabetes screening in : http://www.womensdocs.com/mj/pdf/Second_Trimester/Gestational_Diabetes.pdf You can visit the [place] Diabetes Association website http://www.diabetes.org for additional information and to purchase their book, ???Gestational Diabetes: What to Expect?? . A brochure from the [place] College of Obstetrics and Gynecology is available at: http://www.acog.org/~/media/For%20Patients/kba516.pdf?dmc=1&qv=[id number] 15 Testing for gestational diabetes is a [...] moving around more now. You may notice Whitmer-Bolden contractions now, which are painless and prepare [...] iron. Discuss your work situation with your interface analyst or physician as needed. If you stand for long periods of time, you may need to make changes and take breaks. [place] for childbirth and parenting classes, including an CPR class. classes are recommended too. Childbirth and Parenting Education: [place] parenting center: http://Signalink Technologiesalvarado hospital medical centerCrispy Driven Pixels/ (362) 284-BABY [place]: (education, yoga & wellness) www.Primary Data Enlightened Mama: www.Synchronica.Carnad Childbirth collective: (Parent topic nights) www.childbirthcollective.org/ Hypnobabies: www.hypnobabiestwincities.com/ Hypnobirthing: Http://hypnobirthing.com/ Book Recommendations: Susan Milla's Birthing [...] deciding to wean and deciding not to. [place] College of Nurse-Midwives (ACNM) http://www.interface analyst.org/; look at the informational handouts at http://www.interface analyst.org/Bxget-Ccan-Nbiqs www.mymidwife.org Mother to Baby (Medication and Herbal guidance in ): http://www.mothertobaby.org Toll-Free Hotline: 900.339.7614 LactMed (Medication use while ): http://toxnet.nlm.nih.gov/newtoxnet/lactmed.htm Women's Health.gov: http://www.womenshealth.gov/a-z-topics/index.html [place] association - http://americanpregnancy.org Centering (group care option): http://centeringhealthcare.org Information about doulas: Childbirth collective: http://www.childbirthcollective.org/ Doulas of [place] (CARRI): www.carri.org [facility] blood bank laboratory technologist project: http://Relmada Therapeuticscitiesdoulaproject.com/ Brick And Blocker Aid Labor and Family Education (ECFE): ECFE offers parents hands-on learning experiences that will nourish a lifetime of teachable moments. http://ecfe.info/ecfe-home/ October Dimes www.Buzzero.com FDA - Nutrition www.mypyramid.gov Under For Consumers, [...] book or find it online at http://www.healtheast.org/images/s tories/maternity/ZuvxloClrj-Dzlirbbw-Xwe-Right.pdf or http://www.healthVCE.org/images/stories/flipbo oks/kiyhxnktll-dhyuullt-hhb-right/fxobyqjvad-pskwgtum-qiu-right.html#p=8 You can sign up for a weekly parenting e-mail that gives support, tips and advice from health pet care attendant that starts with and continues through the toddler years. To register, go to www.healthVCE.org/baby at any time during your . Baby Feeding in the Hospital: Information, Support and Resources As you prepare for the of your child, you will want to consider options for feeding your baby including breast-feeding and/or baby formula. The [place] Academy of Pediatrics recommends exclusivebreast-feeding for the [...] baby? Your baby will usually be placed xyji-sv-ginc immediately following . The skin to skin [...] normal. There are numerous resources available at [facility], Clinics and beyond. ??? If your goal [...] or freezer for later use. Touring the [facility] To schedule a tour at either [facility] or [facility], please do so online using the following links: [facility] - https://www.CannaBuild.com/registerlist.asp?s=6&m=303&vs=5&p=2& amp;fdivn=369&ps=1&group=37&it=1&hoi=010 [facility] - https://www.CannaBuild.Carnad/registerlist.asp?s=6&m=303&vs=5&p=2&a mp;reksl=208&ps=1&group=38&it=1&dvv=424 Hospital and Clinic Resources: -Schedule an appointment with a [facility] CNM who is also a Regulatory Affairs Manager by calling [phone] -Schedule a clinic appointment with a [facility] CNM with dedicated clinic hours for assistance by calling [phone]. clinic visits are at [facility] on Mondays, [facility] on Tuesdays and [facility] on . Baby Caf?? and interested in [...] for the Baby Caf?? closest to you! [facility] [address] [place] [address] Wednesday: 10am-12pm [facility] [address] [place] [address] Wednesday 4-6pm [facility] [address] [place] [address] Wednesday 10am-12:30pm ong [employer] [address] [place] [address] Wednesdays: 4-6pm Hmong, Mongolian, and Indonesian which is may be available at some sites. For more information, please contact: [email or web address] [email or web address]. or [phone] -Attend a baby weigh in at [facility]. consultants are available to answer questions [place]: Tuesdays 1:00 - 2:00 [facility]: Mondays 1:00 - 2:00 www.[facility] va medical centerConsiderC.Carnad -Attend one of the New Mama groups at [facility] in [facility]. [facility] also offers one-on-one in home and in office consults. www.[facility] [place].Carnad -Attend a Lukas League meeting. Multiple groups in several locations throughout the [facility]. The meetings are no-cost and always informative education session through Luc Pelayo Www.rebecafranco.org/ Medication use while : http://toxnet.nlm.nih.gov/newtoxnet/lactmed.htm Online Resources: ??? healtheast.org/baby sign up for free online weekly e-mail ??? healtheast.org/maternity ??? Breastfeedingmadesimple.com ??? Llli.org (Belem [place]oacano Elvin) ??? Normalfed.com ??? Womenshealth.gov/ ??? Workandpump.com Breast-feeding Supplies & Pumps: Talk to your insurance provider or WIC (Women, Infants and Children) to learn more about options available to you. Recent health insurance changes may include additional coverage for supplies and pumps. Public Health: Women, Infants and Children Nutrition program (WIC): provides breast-feeding support and education in addition to formal feeding moms. 033-GUN-0430 or http://www.health.[facility].us/divs/fh/wic Family Health Home Visiting: [facility] Nurse home visits are available. Talk to your provider tosee if you qualify. Most [facility] have a program available. Additional Resources: Belem Oconnor is an international, nonprofit, nonsectarian organization offering information, education, and support to mothers who want to breast-feed their babies. Local groups offer phone help andmonthly meetings. Visit Pretty Simple.Spark or Hinge.org and us the ???Find local support?? drop down menu or click on the ???Resources?? tab. [place] Resources: 3-550-841-BABY ([phone]) toll free National Help Line trained peer counselors can help answer common breast-feeding questions by phone. Wednesday-Wednesday: [place]an/Mongolian 3-489- [phone] toll free, (TTY) [facility] Connection: 161-394-RCCO (6651) documented in this encounter Plan of Treatment Not on filedocumented as of this encounter Visit Diagnoses Diagnosis High-risk , second trimester documented in this encounter Additional Health Concerns Assessment Noted Time PHQ-9 Depression Total Score: 7 07/27/2018 7:15 AM DEVELOPMENTAL THERAPIST documented as of this encounter Care Teams Lift Truck Operator Relationship Specialty Start Date End Date Rashida Pederson APRN COMPUTER SERVICE TECHNICIAN PCP - General Nurse Practitioner 10/08/14 [address] [place] [address] Rashida Pederson APRN COMPUTER SERVICE TECHNICIAN Assigned PCP 10/14/14 07/26/21 [address] [place] [address] documented as of this encounter
--- OUTSIDE RECORDS SUMMARY | 2022-06-02 16:06 | XMS_ITS | Encounter Summary ---
:1985 Author Organization [facility] Address [address] [place] [address] Care Team Providers Name Role Phone Rashida Pederson APRN GRADING CLERK Primary Care Provider [phone] Rashida Pederson APRN GRADING CLERK Unavailable [phone] Encounter Details Date Type Department Care Team Description 10/05/2019 Hospital Encounter [facility] ZiKaris morelos , [facility] examination or [facility] [address] test, positive [address] [place], [place] [phone] Social History Tobacco Use Types Packs/Day Years [...] Date/Time Associated Diagnosis Comme nts US OB < 14 WEEKS Routine 10/05/2019 3:10 PM Resul ts for this SINGLE-TRANSABDOMIN MEDICAL BILLING MANAGER examination or test, procedure are in [place] positive result the results section. documented in this encounter Results US OB < 14 Weeks Single (10/05/2019 3:10 PM MEDICAL BILLING MANAGER) Anatomical Region Laterality Modality Abdomen/Pelvis Other Specimen (Source) Anatomical Location Collection Method / Collectio n Time Received Time / Laterality Volume Impressions 10/05/2019 3:15 PM MEDICAL BILLING MANAGER 1. ??Single living intrauterine gestatio n at 12 weeks and 5 days, EDC 04/13/2020. Narrative 10/05/2019 3:15 PM MEDICAL BILLING MANAGER EXAM: OB < 14 WEEKS LOCATION: [facility] DATE/TIME: 10/05/2019 3:10 PM INDICATION: early dating COMPARISON: None. TECHNIQUE: Transabdominal scans were per formed. FINDINGS: UTERUS: Single normal appearing intraute rine gestation sac. CRL: measures 6.3 cm, equals 12 weeks an d 5 days. HEART RATE: 129 bpm. AMNIOTIC FLUID: Normal. PLACENTA: Posterior. No evidence for sub -chorionic hemorrhage. RIGHT OVARY: Normal. LEFT OVARY: Not visualized due to techni ant factors. Procedure Note Nayan Wei MD - 01/23/2021Formatt ing of this note might be different from the original. EXAM: OB < 14 WEEKS LOCATION: [facility] DATE/TIME: 10/05/2019 3:10 PM INDICATION: early dating COMPARISON: None. TECHNIQUE: Transabdominal scans were per formed. FINDINGS: UTERUS: Single normal appearing intraute rine gestation sac. CRL: measures 6.3 cm, equals 12 weeks an d 5 days. HEART RATE: 129 bpm. AMNIOTIC FLUID: Normal. PLACENTA: Posterior. No evidence for sub -chorionic hemorrhage. RIGHT OVARY: Normal. LEFT OVARY: Not visualized due to techni ant factors. IMPRESSION: 1. Single living intrauterine gestation at 12 weeks and 5 days, EDC 04/13/2020. Karis Hale CNM [facility] ORDERABLES documented in this encounter Visit Diagnoses Diagnosis examination or test, positive result documented in this encounter Additional Health Concerns Assessment Noted Time PHQ-9 Depression Total Score: 7 07/27/2018 7:15 AM MEDICAL BILLING MANAGER documented as of this encounter Care Teams Protection Manager Relationship Specialty Start Date End Date Rashida Pederson APRN GRADING CLERK PCP - General Nurse Practitioner 10/08/14 [address] [place] [address] Rashida Pederson APRN GRADING CLERK Assigned PCP 10/14/14 07/26/21 [address] [place] [address] documented as of this encounter
--- OUTSIDE RECORDS SUMMARY | 2022-06-02 16:07 | XMS_ITS | Encounter Summary ---
:1985 Author Organization [facility] Address [address] [place] [address] Care Team Providers Name Role Phone Rashida Pederosn APRN LOG TUMBLER Primary Care Provider [phone] Rashida Pederson APRN LOG TUMBLER Unavailable [phone] Rashida Pederson APRN LOG TUMBLER Unavailable [phone] Reason for Visit Reason Comments Medication Problem Encounter Details Date Type Department Care Team Description 06/06/2015 [facility] Akiko Jones, [address] [place], [place] [id number] Social History Tobacco Use Types Packs/Day Years Used Date Smoking Tobacco: Former Cigarettes 0.5 5 Quit : 07/19/2012 Smokeless Tobacco: Never Alcohol Use Standard Drinks/Week Comments Yes 0 (1 standard drink = 0.6 oz pure alcoho l) 1-4d 1x/wk Sex Assigned at Date Recorded Not on file documented as of this encounter Plan of Treatment Not on filedocumented as of this encounter Visit Diagnoses Not on filedocumented in this encounter Care Teams Brusher Relationship Specialty Start Date End Date Rashida Pederson APRN PCP - General Nurse Practitioner 10/08/14 [facility] [address] [address] [place] [address] Rashida Pederson APRN PCP - Assigned PCP 10/14/14 10/18/18 [facility] [address] [address] [place] [address] Rashida Pederson APRN Assigned PCP 10/14/14 1 09/26/20 [facility] [address] [place] [address] documented as of this encounter
--- OUTSIDE RECORDS SUMMARY | 2022-06-02 16:07 | XMS_ITS | Encounter Summary ---
:1985 Author Organization [facility] Address [address] [place] [address] Care Team Providers Name Role Phone Rashida Pederson APRN EDUCATIONAL TECHNOLOGY COORDINATOR Primary Care Provider [phone] Rashida Pederson APRN EDUCATIONAL TECHNOLOGY COORDINATOR Unavailable [phone] Rashida Pederson APRN EDUCATIONAL TECHNOLOGY COORDINATOR Unavailable [phone] Reason for Visit Reason Onset Date Comments Forms 10/28/2015 letter Encounter Details Date Type Department Care Team Description 10/28/2015 Telephone [facility] Rashida Pederson, Forms (letter) [place] LAN ENGINEER EDUCATIONAL TECHNOLOGY COORDINATOR [phone] [place] [address] (Wo rk) Social History Tobacco Use Types Packs/Day Years Used Date Smoking Tobacco: Former Cigarettes 0.5 5 Quit : 07/19/2012 Smokeless Tobacco: Never Alcohol Use Standard Drinks/Week Comments Yes 0 (1 standard drink = 0.6 oz pure alcoho l) 1-4d 1x/wk Sex Assigned at Date Recorded Not on file documented as of this encounter Miscellaneous Notes Telephone Encounter - Diana Ozuna - 10/28/2015 2:21 PM CDT Placed in mail Diana Ozuna/Director Of User Experience Telephone Encounter - Inessa Bradshaw RN - 10/28/2015 1:22 PM CDT Pt calls, lost letter from 09/17, would like re-mailed to her. Printed at [facility]. Will route this to [facility] as FYI to mail, not leave up front. Thank you!! Inessa Bradshaw, ELIE documented in this encounter Plan of Treatment Not on filedocumented as of this encounter Visit Diagnoses Not on filedocumented in this encounter Additional Health Concerns Assessment Noted Time PHQ-9 Depression Total Score: 10 09/18/2015 9:10 AM CS T documented as of this encounter Care Teams Mine Expert Relationship Specialty Start Date End Date Rashida Pederson APRN PCP - General Nurse Practitioner 10/08/14 EDUCATIONAL TECHNOLOGY COORDINATOR [address] [place] [address] Rashida Pederson APRN PCP - Assigned PCP 10/14/14 10/18/18 EDUCATIONAL TECHNOLOGY COORDINATOR [address] [place] [address] Rashida Pederson APRN Assigned PCP 10/14/14 1 09/26/20 EDUCATIONAL TECHNOLOGY COORDINATOR [address] [place] [address] documented as of this encounter
--- OUTSIDE RECORDS SUMMARY | 2022-06-02 16:07 | XMS_ITS | Encounter Summary ---
:1985 Author Organization [facility] Address [address] [place] [address] Care Team Providers Name Role Phone Rashida Pederson APRN, CNP Primary Care Provider [phone] Rashida Pederson APRN PALEOLOGY PROFESSOR Unavailable [phone] Rashida Pederson APRN PALEOLOGY PROFESSOR Unavailable [phone] Reason for Visit Reason Onset Date Comments Recheck Medication 11/02/2014 Encounter Details Date Type Department Care Team Description 11/02/2014 Virtual Visit M [facility] Rashida Pederson Panic att ack (Primary Dx); Clinic [place] ZIYAD Benitez Major depression, recurrent (H); [address] [facility] [place], [place] [id number] [place] [address] [place], [place] [phone] [id number] Social History Tobacco Use Types Packs/Day Years Used Date Smoking Tobacco: Former Cigarettes 0.5 5 Quit : 07/19/2012 Smokeless Tobacco: Never Alcohol Use Standard Drinks/Week Comments Yes 0 (1 standard drink = 0.6 oz pure alcoho l) 1-4d 1x/wk Sex Assigned at Date Recorded Not on file documented as of this encounter Progress Notes Rashida Pederson CNP - 11/02/2014 1:23 PM CDT SUBJECTIVE: Logan Arredondo is a 29 year old female who presents to clinic today for the following health issues: Medication Follow up of lexapro ?? Taking Medication as prescribed: yes ?? Side Effects: None ?? Medication Helping Symptoms: Yes ?? Taking lexapro as prescribed, decrease in anxiety symptoms. ?? Has taken ativan x 1 dose with relief of anxiety. ?? Sleeping much better at night. Problem list and histories reviewed & adjusted, as indicated. Additional history: as documented Patient Active Problem List Diagnosis ??? History of pulmonary embolism ??? BV (bacterial vaginosis) ??? Dysmenorrhea ??? Mirena IUD (intrauterine device) in place ??? Panic attack ??? Routine gynecological examination ??? Major depression, recurrent ??? Anxiety Past Surgical History Procedure Laterality Date ??? Appendectomy 1993 History Substance Use Topics ??? Smoking status: Former Smoker -- 0.50 packs/day for 5 years Types: Cigarettes Quit date: 07/19/2012 ??? Smokeless tobacco: Never Used ??? Alcohol Use: Yes Comment: 1-4d 1x/wk Family History Problem Relation Age of Onset ??? Heart attack Maternal Grandfather stent palcement ??? Alcohol/Drug Father biologic & adopted ??? Alcohol/Drug Mother biologic mom ??? Alzheimers Maternal Grandmother & PGF ??? Depression Father & Mother ??? Obesity Mother & MGM, PGM, PGF ??? Diabetes No family hx of ??? Hypertension No family hx of ??? Cancer No family hx of Current Outpatient Prescriptions Medication Sig Dispense Refill ??? LORazepam (ATIVAN) 0.5 MG tablet Take 1 tablet (0.5 mg) by mouth every 8 hours as needed for anxiety 30 tablet 0 ??? escitalopram (LEXAPRO) 20 MG tablet Take 1/2 tablet (10 mg) for 1-2 weeks, then increase to 1 tablet orally daily 30 tablet 0 ??? levonorgestrel (MIRENA) 20 MCG/24HR IUD 1 each by Intrauterine route once Allergies Allergen Reactions ??? Estrogens Patient had estrogen associated PE ??? Wellbutrin [Bupropion] Other (See Comments) seizure ROS: C: NEGATIVE for fever, chills, change in weight PSYCHIATRIC: see HPI OBJECTIVE: Not completed, phone visit ASSESSMENT: See below PLAN: Logan was seen today for recheck medication. Diagnoses and associated orders for this visit: Major depression, recurrent - escitalopram (LEXAPRO) 20 MG tablet; Take 1 tablet (20 mg) by mouth daily Take 1/2 tablet (10 mg) for 1-2 weeks, then increase to 1 tablet orally daily Anxiety - escitalopram (LEXAPRO) 20 MG tablet; Take 1 tablet (20 mg) by mouth daily Take 1/2 tablet (10 mg) for 1-2 weeks, then increase to 1 tablet orally daily Phone visit: 7 minutes. Follow up in 6 months Rashida Pederson CNP [facility] documented in this encounter Plan of Treatment Not on filedocumented as of this encounter Visit Diagnoses Diagnosis Panic attack - Primary Panic disorder without agoraphobia Major depression, recurrent (H) Major depressive disorder, recurrent epi sode, unspecified Anxiety Anxiety state, unspecified documented in this encounter Care Teams Candy Rolling Machine Operator Relationship Specialty Start Date End Date Rashida Pederson APRN PCP - General Nurse Practitioner 10/08/14 PALEOLOGY PROFESSOR [address] [place] [address] Rashida Pedreson APRN PCP - Assigned PCP 10/14/14 10/18/18 PALEOLOGY PROFESSOR [address] [place] [address] Rashida Pederson APRN Assigned PCP 10/14/14 1 09/26/20 PALEOLOGY PROFESSOR [address] [place] [address] documented as of this encounter
--- OUTSIDE RECORDS SUMMARY | 2022-06-02 16:07 | XMS_ITS | Encounter Summary ---
:1985 Author Organization [facility] Address [address] [place] [address] Care Team Providers Name Role Phone Rashida Pederson APRN TICKET CLERK Primary Care Provider [phone] Rashida Pederson APRN TICKET CLERK Unavailable [phone] BgRashida cornejo APRN TICKET CLERK Unavailable [phone] Encounter Details Date Type Department Care Team Description 05/18/2016 [facility] Only [facility] Scr eening for tuberculosis [address] [address] Social History Tobacco Use Types Packs/Day Years [...] Name Priority Date/Time Associated Diagnosis Comme nts M TUBERCULOSIS BY Routine 05/18/2016 1:20 PM Screening for Res ults for this QUANTIFERON CDT tuberculosis procedure are i n the results section. documented in this encounter Results M Tuberculosis by Quantiferon (05/18/2016 1:20 PM CDT) [facility] gist Method Time Signature M Tuberculosis Negative NEG [facility] M Tuberculosis 0.00 IU/mL [facility] Antigen Value [facility] Comment: This is a qualitative test. ??The TB ant igen IU/mL value is required for documentation on certain government rep orting forms but this value should not be used to monitor disease progression or response to therapy. Diagnosing or excluding tuberculosis di sease, and assessing the probability of LTBI, require a combination of epidemio logical, historical, medical and diagnostic findings that should be take n into account when interpreting QuantiFERON TB results. Specimen Anatomical Collection Method Collection Time Receive d Time (Source) Location / / Volume Laterality Blood specimen 05/18/2016 1:20 PM 016 1:24 (specimen) CDT PM CDT Rashida Pederson APRN TICKET CLERK LAB - BLOOD ORDERABLES Performing Organization Address City/State/ZIP Code Phon e Number [facility] [address] [place] [address] [place] documented in this encounter Visit Diagnoses Diagnosis Screening for tuberculosis Screening examination for pulmonary tube rculosis documented in this encounter Additional Health Concerns Assessment Noted Time PHQ-9 Depression Total Score: 5 03/28/2016 7:13 AM CDT documented as of this encounter Care Teams Foil Stamp Operator Relationship Specialty Start Date End Date Rashida Pederson APRN PCP - General Nurse Practitioner 10/08/14 TICKET CLERK [address] [place] [address] Rashida Pederson APRN PCP - Assigned PCP 10/14/14 10/18/18 TICKET CLERK [address] [place] [address] Rashida Pederson APRN Assigned PCP 10/14/14 1 09/26/20 TICKET CLERK [address] [place] [address] documented as of this encounter
--- OUTSIDE RECORDS SUMMARY | 2022-06-02 16:07 | XMS_ITS | Encounter Summary ---
:1985 Author Organization [facility] Address [address] [place] [address] Care Team Providers Name Role Phone Rashida Pederson APRN, CNP Primary Care Provider [phone] Rashida Pederson APRN TRAVELING CLERK Unavailable [phone] Rashida Pederson APRN, CNP Unavailable [phone] Reason for Visit Reason Comments Physical non-fasting Encounter Details Date Type Department Care Team Description 02/15/[address] [facility] Rashida Pederson e xamination (Primary Dx); [facility] ZIYAD Benitez CNP Mirena IUD (intrauterine device) in plac e; [address] [place] [id number] [phone] Social History Tobacco Use Types Packs/Day Years Used Date Smoking Tobacco: Some Days Cigarettes 0.5 10 L ast attempted to quit: 07/19/2012 Smokeless Tobacco: Never Alcohol Use Standard Drinks/Week Comments Yes 0 (1 standard drink = 0.6 oz pure alcoho l) 1-4d 1x/wk Sex Assigned at Date Recorded Not on file documented as of this encounter Last Filed Vital Signs Vital Sign Reading Time Taken Comments Blood Pressure 132/87 02/15/2017 10:40 AM CDT Pulse 80 02/15/2017 10:40 AM CDT Temperature 36.6 ??C (97.9 ??F) 02/15/2017 10:40 AM CDT Respiratory Rate 20 02/15/2017 10:40 AM CDT Oxygen Saturation 99% 02/15/2017 10:40 AM CDT Inhaled Oxygen Concentration - - Weight 103.4 kg (227 lb 14.4 oz) 02/15/2017 10:40 AM CDT Height 167.6 cm (5' 6) 02/15/2017 10:40 AM CDT Body Mass Index 36.78 02/15/2017 10:40 AM CDT documented in this encounter Patient Instructions Patient InstructionsMaranda Clay, ROSITA - 02/15/2017 10:44 AM CDT Preventive Health Recommendations Female Ages 26 - [...] instead of white grains and rice. ??? Talk to your provider about Calcium and Vitamin D. Lifestyle ??? Exercise at least 150 minutes a week (30 minutes a day, 5 days of the week). This will help you control your weight and prevent disease. ??? Limit alcohol to one drink per day. ??? No smoking. ?? Wear sunscreen to prevent skin cancer. ?? See your dentist every six months for an exam and cleaning. documented in this encounter Progress Notes Rashida Pederson APRN CNP - 02/17/2017 5:37 PM CDT Hi Logan, Your tests for yeast, bacterial vaginosis, gonorrhea and chlamydia are negative. Sincerely, Rashida Pederson CNP Rashida Pederson APRN CNP - 02/15/2017 1:18 PM CDT William Ford, Your test for yeast and bacterial vaginosis was negative. Sincerely, Rashida Pederson CNP Rashida Pederson APRN CNP - 02/15/2017 10:15 AM CDT SUBJECTIVE: CC: Logan Arredondo is an 31 year old woman who presents for preventive health visit. Healthy Habits: Annual Exam: Getting at least 3 servings of Calcium per day:: Yes Bi-annual eye exam:: NO Dental care twice a year:: Yes Sleep apnea or symptoms of sleep apnea:: None Diet:: Regular (no restrictions) Frequency of exercise:: None Taking medications regularly:: Yes Medication side effects:: None Additional concerns today:: No PHQ-2 Score: 2 Health Maintenance -- Has IUD for control. No health concerns at this time. Mammogram -- Not appropriate based on age Pap Smear -- Due 03/2019, last in 03/2016 was NIL Colonoscopy -- Not appropriate based on age Anxiety/Depression -- Some work/school related stress but otherwise stable at this time. Not taking any regular medications for problem but takes lorazepam as needed for panic attacks. PHQ-9: 7 Obesity -- Started on phentermine several months ago through a clinic in [place]. Has lost weight since starting this medication. Highest weight was 241 lbs. Current weight is 227 lbs. 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 Getting associates degree at [employer] and plans to finish elsewhere for bachelors. Today's PHQ-2 Score: PHQ-2 (??1999 Pf[employer]) 02/12/2017 03/27/2016 Q1: Little interest or pleasure in doing things 1 0 Q2: Feeling down, depressed or hopeless 1 0 PHQ-2 Score 2 0 Q1: Little interest or pleasure in doing things Several days - Q2: Feeling down, depressed or hopeless Several days - PHQ-2 Score 2 - Abuse: Current or Past(Physical, Sexual or Emotional)- No Do you feel safe in your environment - Yes Social History Substance Use Topics ??? Smoking status: Current Some Day Smoker Packs/day: 0.50 Years: 10.00 Types: Cigarettes Last attempt to quit: 07/19/2012 ??? Smokeless tobacco: Never Used ??? Alcohol use Yes Comment: 1-4d 1x/wk The patient does not drink >3 drinks per day nor >7 drinks per week. Reviewed orders with patient. Reviewed health maintenance and updated orders accordingly - Yes Mammogram not appropriate for this patient based on age. Pertinent mammograms are reviewed under the imaging tab. History of abnormal Pap smear: NO - age 21-29 PAP every 3 years recommended Reviewed and updated as needed this visit by clinical staff Tobacco Allergies Meds Reviewed and updated as needed this visit by Provider Past Medical History: Diagnosis Date ??? Bilateral pulmonary embolism (H) 06/2012 ??? Depressive disorder ??? Menarche age 14 started OCP age 18; flows Q 35-38 (pt not certain) days (32 days when younger) lasting 4 days ROS: Constitutional, HEENT, cardiovascular, pulmonary, GI, , musculoskeletal, neuro, skin, endocrine and psych systems are negative, except as in HPI or otherwise noted This document serves as a record of the services and decisions personally performed and made by Rashida Pederson CNP. It was created on her behalf by Janet Davis, a trained medical dir. The creation of this document is based the provider's statements to the medical dir. Janet Davis February 15, 2017 10:51 AM OBJECTIVE: BP 132/87 (BP Location: Left arm, Patient Position: Chair, Cuff Size: Adult Large) Pulse 80 Temp97.9 ??F (36.6 ??C) (Oral) Resp 20 Ht 5' 6 (1.676 m) Wt 227 lb 14.4 oz (103.4 kg) SpO2 99% ? No BMI 36.78 kg/m2 EXAM: GENERAL: healthy, alert and no distress HENT: ear canals and TM's normal, nose and mouth without ulcers or lesions NECK: no adenopathy, no asymmetry, masses, or scars and thyroid normal to palpation RESP: lungs clear to auscultation - no rales, rhonchi or wheezes BREAST: normal without masses, tenderness or nipple discharge and no palpable axillary masses or adenopathy CV: regular rate and rhythm, normal S1 S2, no S3 or S4, no murmur, click or rub, no peripheral edema ABDOMEN: soft, nontender, no hepatosplenomegaly, no masses and bowel sounds normal (female): normal female external genitalia, normal urethral meatus, vaginal mucosa pink, moist, well rugated, and normal cervix/adnexa/uterus without masses or discharge, IUD strings visualized in center of cervix MS: no gross musculoskeletal defects noted, no edema SKIN: no suspicious lesions or rashes NEURO: Normal strength and tone, mentation intact and speech normal PSYCH: mentation appears normal, affect normal/bright ASSESSMENT/PLAN: Logan was seen today for physical. Diagnoses and all orders for this visit: Wellness examination: No concerns Mirena IUD (intrauterine device) in place: Discussed need to have removed in 1 year, can replace at that same visit. Anxiety: Will call if needs refill in lorazepam, takes on a very limited basis for anxiety, 1 refillmax per year. COUNSELING: Reviewed preventive health counseling, as reflected in patient instructions BP Screening: Last 3 BP Readings: BP Readings from Last 3 Encounters: 02/15/17 132/87 07/31/16 128/87 03/27/16 104/70 The following was recommended to the patient: Re-screen BP within a year and recommended lifestyle modifications reports that she has been smoking Cigarettes. She has a 5.00 pack-year smoking history. She has never used smokeless tobacco. Estimated body mass index is 36.78 kg/(m^2) as calculated from the following: Height as of this encounter: 5' 6 (1.676 m). Weight as of this encounter: 227 lb 14.4 oz (103.4 kg). Weight management plan: Discussed healthy diet and exercise guidelines and patient will follow up in12 months in clinic to re-evaluate. Counseling Resources: ATP IV Guidelines Pooled Cohorts Equation Calculator Breast Cancer Risk Calculator FRAX Risk Assessment ICSI Preventive Guidelines Dietary Guidelines for Americans, 2009 USDA's MyPlate ASA Prophylaxis Lung CA Screening Follow up in 1 year, sooner as needed. The information in this document, created by the medical dir for me, accurately reflects the services I personally performed and the decisions made by me. I have reviewed and approved this document for accuracy. Rashida Pederson APRN CNP [facility] documented in this encounter Nursing Notes Maranda Clay CMA - 02/15/2017 10:15 AM CDT Chief Complaint Patient presents with ??? Physical non-fasting Initial BP 132/87 (BP Location: Left arm, Patient Position: Chair, Cuff Size: Adult Large) Pulse 80 Temp 97.9 ??F (36.6 ??C) (Oral) Resp 20 Ht 5' 6 (1.676 m) Wt 227 lb 14.4 oz (103.4 kg) SpO2 99% ? No BMI 36.78 kg/m2 Estimated body mass index is 36.78 kg/(m^2) as calculated from the following: Height as of this encounter: 5' 6 (1.676 m). Weight as of this encounter: 227 lb 14.4 oz (103.4 kg). Medication Reconciliation: complete Maranda Clay CMA (AAMA) documented in this encounter Miscellaneous Notes Addendum Note - Rashida Pederson APRN CNP - 02/15/2017 12:29 PM CDT Addended by: RASHIDA PEDERSON on: 02/15/2017 12:29 PM Modules accepted: Orders documented in this encounter Plan of Treatment Not on filedocumented as of this encounter Procedures Procedure Name Priority Date/Time Associated Diagnosis Comme nts WET PREPARATION Routine 02/15/2017 11:00 Wellness examination Results for this AM CDT procedure are i n the results section. NEISSERIA Routine 02/15/2017 11:00 Wellness examination Res ults for this GONORRHOEAE PCR AM CDT procedure ar e in the results section. CHLAMYDIA Routine 02/15/2017 11:00 Wellness examination Res ults for this TRACHOMATIS PCR AM CDT procedure ar e in the results section. documented in this encounter Results Wet prep (02/15/2017 11:00 AM CDT) Patholo gist Method Time Signature Specimen Vagina WEVER Description [facility] Wet Prep No Trichomonas seen WEVER No clue cells seen [facility] No yeast seen [facility] Micro Report FINAL WEVER Status 02/15/2017 [facility] Specimen Anatomical Collection Method Collection Time Receive d Time (Source) Location / / Volume Laterality 02/15/2017 11:00 02/15/2017 AM CDT 11:30 AM CDT Rashida Pederson APRN, CNP LAB - MICRO GENERAL ORDER SUSHMA Performing Organization Address [facility] Phon e Number [facility] [address] [place] [address] CHLAMYDIA TRACHOMATIS PCR (02/15/2017 11:00 AM CDT) Component Value Ref Test Analysis Performed At [facility] gist Range Method Time Signature Specimen Endocervical [facility] Chlamydia Negative NEG MICRO RAPID Trachomatis PCR Negative for C. trachomatis rRNA by order tracer mediated amplification. TESTING LAB A negative result by transc ription mediated amplification does not preclude the presence of C. trachomatis infection because re sults are dependent on proper and adequate collection, absence of inhibitors, and suffici ent rRNA to be detected. Specimen (Source) Anatomical Collection Method Collection Time Re ceived Time Location / / Volume Laterality Endocervical swab 02/15/2017 11:00 2016 (procedure) AM CDT 11:30 AM CDT Rashida Pederson APRN, CNP LAB - MICRO GENERAL ORDER SUSHMA Performing Organization Address City/[facility] Phon e Number MICRO RAPID TESTING LAB [address] [place] [address] [facility] [address] [place] [address] NEISSERIA GONORRHOEA PCR (02/15/2017 11:00 AM CDT) [facility] gist Method Time Signature Specimen Endocervical [facility] N Gonorrhea Negative NEG MICRO RAPID PCR Negative for N. gonorrhoeae rRNA by transcripti on mediated amplification. TESTING LAB A negative result by transc ription mediated amplification does not preclude the presence of N. gonorrhoeae infection because re sults are dependent on proper and adequate collection, absence of inhibitors, and suffici ent rRNA to be detected. Specimen (Source) Anatomical Collection Method Collection Time Re ceived Time Location / / Volume Laterality Endocervical swab 02/15/2017 11:00 2016 (procedure) AM CDT 11:30 AM CDT Rashida Pederson APRN TRAVELING CLERK LAB - MICRO GENERAL ORDER SUSHMA Performing Organization Address City/State/ZIP Code Phon e Number MICRO RAPID TESTING [facility] [address] [place] [address] [facility] [address] [place] [address] documented in this encounter Visit Diagnoses Diagnosis Wellness examination - Primary Mirena IUD (intrauterine device) in plac e Presence of intrauterine contraceptive d evice Anxiety Anxiety state, unspecified documented in this encounter Additional Health Concerns Assessment Noted Time PHQ-9 Depression Total Score: 7 02/16/2017 7:15 AM CDT documented as of this encounter Care Teams Broomcorn Sorter Relationship Specialty Start Date End Date Rashida Pederson APRN PCP - General Nurse Practitioner 10/08/14 TRAVELING CLERK [address] [place] [address] Rashida Pederson APRN PCP - Assigned PCP 10/14/14 10/18/18 TRAVELING CLERK [address] [place] [address] Rashida Pederson APRN Assigned PCP 10/14/14 1 09/26/20 TRAVELING CLERK [address] [place] [address] documented as of this encounter
--- OUTSIDE RECORDS SUMMARY | 2022-06-02 16:07 | XMS_ITS | Encounter Summary ---
:1985 Author Organization [facility] Address [address] [place] [address] Care Team Providers Name Role Phone Rashida Pederson APRN, CNP Primary Care Provider [phone] Rashida Pederson APRN PIGMENT PUMPER Unavailable [phone] Rashida Pederson APRN, CNP Unavailable [phone] Reason for Visit Reason Comments Recheck Medication Encounter Details Date Type Department Care Team Description 09/10/2017 Office Visit [facility] Rashida Pederson episo de of recurrent major depressive disorder (H) (Primary Dx); [facility] [place] ZIYAD Benitez CNP Anxiety; [address] [place] [address] [place] [address] [phone] Social History Tobacco Use Types Packs/Day Years [...] Sign Reading Time Taken Comments Blood Pressure 120/82 09/10/2017 1:10 PM DRIER HELPER Pulse 106 09/10/2017 1:10 PM DRIER HELPER Temperature 36.9 ??C (98.4 ??F) 09/10/2017 1:10 PM DRIER HELPER Respiratory Rate 14 09/10/2017 1:10 PM DRIER HELPER Oxygen Saturation 96% 09/10/2017 1:10 PM DRIER HELPER Inhaled Oxygen Concentration - - Weight 103 kg (227 lb) 09/10/2017 1:10 PM DRIER HELPER Height 167.6 cm (5' 6) 09/10/2017 1:10 PM DRIER HELPER Body Mass Index 36.64 09/10/2017 1:10 PM DRIER HELPER documented in this encounter Progress Notes Rashida Pederson, ZIYAD HINES - 09/10/2017 1:00 PM CST SUBJECTIVE: Logan Arredondo is a 32 year old female who presents to clinic today for the following health issues: History of Present Illness Depression & Anxiety Follow-up: Depression/Anxiety: Depression & Anxiety Status since last visit:: Improved Other associated symptoms of depression and anxiety:: None Significant life event:: No Current substance use:: Alcohol Today's PHQ-9 PHQ-9 Total Score: (P) 11 PHQ-9 Q9 Suicidal ideation: (P) Not at all Thoughts of suicide or self harm: Self-harm Plan: Self-harm Action: Safety concerns for self or others: [place]-7 Total Score: (P) 1 Logan reports that her medication is helping her focus on school. She thinks that her depression is mostly due to not wanting to get up for school. She states that her feelings of worthlessness have decreased significantly. She would like to try to wean off of the medication once she is done with school. Problem list and histories reviewed & adjusted, as indicated. Additional history: as documented ROS: Constitutional, cardiovascular, pulmonary and psych systems are negative, except as otherwise noted. This document serves as a record of the services and decisions personally performed and made by Rashida Pederson CNP. It was created on her behalf by Ramiro Curry, a trained clinical specialist medical device. The creation of this document is based the provider's statements to the clinical specialist medical device. Ramiro Curry September 10, 2017 1:20 PM OBJECTIVE: BP 120/82 (BP Location: Left arm, Patient Position: Chair, Cuff Size: Adult Large) Pulse 106 Temp 98.4 ??F (36.9 ??C) (Oral) Resp 14 Ht 1.676 m (5' 6) Wt 103 kg (227 lb) SpO2 96% BMI 36.64 kg/m2 Body mass index is 36.64 kg/(m^2). GENERAL: healthy, alert and no distress RESP: lungs clear to auscultation - no rales, rhonchi or wheezes CV: regular rate and rhythm, normal S1 S2, no S3 or S4, no murmur, click or rub, no peripheral edemaand peripheral pulses strong PSYCH: mentation appears normal, affect normal/bright Diagnostic Test Results: No results found for this or any previous visit (from the past 24 hour(s)). ASSESSMENT/PLAN: Logan was seen today for recheck medication. Diagnoses and all orders for this visit: Mild episode of recurrent major depressive disorder (H) and anxiety:well controlled, continue lexapro 20 mg every day. - escitalopram (LEXAPRO) 20 MG tablet; Take 1 tablet (20 mg) by mouth daily Panic attack: Limited supply on an annual basis, no refills until 04/2018 visit. - LORazepam (ATIVAN) 0.5 MG tablet; Take 1 tablet (0.5 mg) by mouth every 8 hours as needed for anxiety Follow up in 04/2018 for recheck and IUD removal. The information in this document, created by the clinical specialist medical device for me, accurately reflects the services I personally performed and the decisions made by me. I have reviewed and approved this document for accuracy. DONNY Moore APRN [facility] R HELPER documented in this encounter Plan of Treatment Not on filedocumented as of this encounter Visit Diagnoses Diagnosis Mild episode of recurrent major depressi ve disorder (H) - Primary Anxiety Anxiety state, unspecified Panic attack Panic disorder without agoraphobia documented in this encounter Additional Health Concerns Assessment Noted Time PHQ-9 Depression Total Score: 11 09/11/2017 7:41 AM CS T documented as of this encounter Care Teams Supervisor Modern Languages Relationship Specialty Start Date End Date Rashida Pederson APRN PCP - General Nurse Practitioner 10/08/14 DONNY [address] [place] [address] Rashida Pederson APRN PCP - Assigned PCP 10/14/14 10/18/18 PIGMENT PUMPER [address] [place] [address] Rashida Pederson APRN Assigned PCP 10/14/14 1 09/26/20 PIGMENT PUMPER [address] [place] [address] documented as of this encounter
--- OUTSIDE RECORDS SUMMARY | 2022-06-02 16:07 | XMS_ITS | Encounter Summary ---
:1985 Author Organization [facility] Address [address] [place] [address] Care Team Providers Name Role Phone Rashida Pederson APRN, CNP Primary Care Provider [phone] Rashida Pederson APRN BARREL POLISHER INSIDE Unavailable [phone] Rashdia Pederson APRN, CNP Unavailable [phone] Reason for Visit Reason Onset Date Comments Medication Refill 08/05/2017 escitalopram (LEXAPR O) 20 MG tablet Encounter Details Date Type Department Care Team Description 08/04/2017 Refill [facility] Rashida Pederson ication Refill [place] ZIYAD Benitez CNP (escitalopram (LEXAPRO) [address] [place] [address] 20 MG tablet) [place] [address] [phone] (Wo rk) Social History Tobacco Use Types Packs/Day Years Used Date Smoking Tobacco: Some Days Cigarettes 0.5 10 L ast attempted to quit: 07/19/2012 Smokeless Tobacco: Never Alcohol Use Standard Drinks/Week Comments Yes 0 (1 standard drink = 0.6 oz pure alcoho l) 1-4d 1x/wk Sex Assigned at Date Recorded Not on file documented as of this encounter Miscellaneous Notes Telephone Encounter - Ebony De Guzman MA - 08/06/2017 1:59 PM CST Patient informed-states she will call back to schedule apt. AGGER Telephone Encounter - Tiffanie Young DO - 08/06/2017 10:57 AM CST Approved 30 day supply. Needs visit for further refills AGGER Telephone Encounter - Concha Porras RN - 08/06/2017 8:58 AM CST Routing refill request to provider for review/approval because: Labs out of range: PHQ is elevated per OV note pt is to f/u in 6 months OK for refill? Concha Porras RN AGGER Telephone Encounter - Angy Barone - 08/05/2017 11:52 AM CST Requested Prescriptions Pending Prescriptions Disp Refills ??? escitalopram (LEXAPRO) 20 MG tablet [Pharmacy Med Name: ESCITALOPRAM 20 MG TABLET] 30 tablet 3 Last Written Prescription Date: 04/21/17 Last Fill Quantity: 30, # refills: [address] [facility] or [facility] prescribing provider: 04/21/2017 Future Office Visit: Sig: TAKE 1/2 TABLET BY MOUTH FOR 1-2 WEEKS THEN INCREASE TO 1 TABLET DAILY SSRIs Protocol Failed 08/04/2017 12:58 AM Failed - PHQ-9 score less than 5 in past 6 months PHQ-9 SCORE 03/27/2016 02/15/2017 04/21/2017 Total Score - - - Total Score MyChart - - - Total Score 5 7 9 GE[place]-7 SCORE 09/17/2015 03/27/2016 04/21/2017 Total Score - - - Total Score - - - Total Score 9 3 9 Passed - Medication is NOT Bupropion If the medication is Bupropion (Wellbutrin), and the patient is taking for smoking cessation; OK torefill. Passed - Patient is age 18 or older Passed - No active on record Passed - No positive test in last 12 months Passed - Recent (6 mo) or future visit with authorizing provider's specialty Patient had office visit in the last 6 months or has a visit in the next 30 days with authorizing provider. See chart review. 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 (H) Anxiety Anxiety state, unspecified documented in this encounter Additional Health Concerns Assessment Noted Time PHQ-9 Depression Total Score: 9 04/21/2017 2:17 PM CDT documented as of this encounter Care Teams Electric Shaver Mechanic Relationship Specialty Start Date End Date Rashida Pederson APRN PCP - General Nurse Practitioner 10/08/14 BARREL POLISHER INSIDE [address] [place] [address] Rashida Pederson APRN PCP - Assigned PCP 10/14/14 10/18/18 BARREL POLISHER INSIDE [address] [place] [address] Rashida Pederson APRN Assigned PCP 10/14/14 1 09/26/20 BARREL POLISHER INSIDE [address] [place] [address] documented as of this encounter
--- OUTSIDE RECORDS SUMMARY | 2022-06-02 16:07 | XMS_ITS | Encounter Summary ---
:1985 Author Organization [facility] Address [address] [place] [address] Care Team Providers Name Role Phone Rashida Pederson APRN, CNP Primary Care Provider [phone] Rashida Pederson APRN HAIR WORKER Unavailable [phone] Bg, Rashida Benitez APRN HAIR WORKER Unavailable [phone] Reason for Visit Reason Onset Date Comments Panel Management 03/09/2016 pap and depression Encounter Details Date Type Department Care Team Description 03/09/2016 Telephone [facility] Rashida Pederson (pap [facility] [place] ZIYAD Benitez CNP and depression) [address] [place] [address] [phone] Social History Tobacco Use Types Packs/Day Years Used Date Smoking Tobacco: Former Cigarettes 0.5 5 Quit : 07/19/2012 Smokeless Tobacco: Never Alcohol Use Standard Drinks/Week Comments Yes 0 (1 standard drink = 0.6 oz pure alcoho l) 1-4d 1x/wk Sex Assigned at Date Recorded Not on file documented as of this encounter Miscellaneous Notes Telephone Encounter - Yessenia Mcgarry CMA - 03/09/2016 1:54 PM CDT Panel Management Review Patient has the following on her problem list: Depression / Dysthymia review PHQ-9 SCORE 03/28/2015 03/28/2015 09/17/2015 Total Score 7 - - Total Score MyChart - 7 - Total Score - - 10 Patient is due for: PHQ9 Composite cancer screening Chart review shows that this patient is due/due soon for the following Pap Smear Summary: Patient is due/failing the following: PAP and PHQ9 Action needed: Patient needs office visit for physical and pap. and Patient needs to do PHQ9. Type of outreach: Sent [employer] message. Questions for provider review: None Yessenia Mcgarry CMA Chart routed to Care Team . documented in this encounter Plan of Treatment Not on filedocumented as of this encounter Visit Diagnoses Not on filedocumented in this encounter Additional Health Concerns Assessment Noted Time PHQ-9 Depression Total Score: 10 09/18/2015 9:10 AM CS T documented as of this encounter Care Teams Information Technology Director Relationship Specialty Start Date End Date Rashida Pederson APRN PCP - General Nurse Practitioner 10/08/14 HAIR WORKER [address] [place] [address] Rashida Pederson APRN PCP - Assigned PCP 10/14/14 10/18/18 HAIR WORKER [address] [place] [address] Rashida Pederson APRN Assigned PCP 10/14/14 1 09/26/20 HAIR WORKER [address] [place] [address] documented as of this encounter
--- OUTSIDE RECORDS SUMMARY | 2022-06-02 16:07 | XMS_ITS | Encounter Summary ---
:1985 Author Organization [facility] Address [address] [place] [address] Care Team Providers Name Role Phone Rashida Pederson APRN TELEVISION NEWS REPORTER Primary Care Provider [phone] Rashida Pederson APRN TELEVISION NEWS REPORTER Unavailable [phone] BgRashida cornejo APRN TELEVISION NEWS REPORTER Unavailable [phone] Reason for Visit Reason Onset Date Comments Panel Management 12/18/2015 pap Encounter Details Date Type Department Care Team Description 12/18/2015 Telephone [facility] Rashida Pederson (pap) [facility] [place] ZIYAD Benitez CNP [address] [address] [phone] Social History Tobacco Use Types Packs/Day Years Used Date Smoking Tobacco: Former Cigarettes 0.5 5 Quit : 07/19/2012 Smokeless Tobacco: Never Alcohol Use Standard Drinks/Week Comments Yes 0 (1 standard drink = 0.6 oz pure alcoho l) 1-4d 1x/wk Sex Assigned at Date Recorded Not on file documented as of this encounter Miscellaneous Notes Telephone Encounter - Yessenia Mcgarry CMA - 12/25/2015 3:44 PM CDT Letter sent Telephone Encounter - Yessenia Mcgarry CMA - 12/18/2015 3:21 PM CDT Panel Management Review Patient has the following on her problem list: Depression / Dysthymia review PHQ-9 SCORE 03/28/2015 03/28/2015 09/17/2015 Total Score 7 - - Total Score MyChart - 7 - Total Score - - 10 Patient is due for: None Composite cancer screening Chart review shows that this patient is due/due soon for the following Pap Smear Summary: Patient is due/failing the following: PAP Action needed: Patient needs office visit for physical and pap. Type of outreach: Sent [employer] message. Questions for provider review: None Yessenia Mcgarry CMA Chart routed to care team . documented in this encounter Plan of Treatment Not on filedocumented as of this encounter Visit Diagnoses Not on filedocumented in this encounter Additional Health Concerns Assessment Noted Time PHQ-9 Depression Total Score: 10 09/18/2015 9:10 AM CS T documented as of this encounter Care Teams Cornetist Relationship Specialty Start Date End Date Rashida Pederson APRN PCP - General Nurse Practitioner 10/08/14 TELEVISION NEWS REPORTER [address] [place] [address] Rashida Pederson APRN PCP - Assigned PCP 10/14/14 10/18/18 TELEVISION NEWS REPORTER [address] [place] [address] Rashida Pederson APRN Assigned PCP 10/14/14 1 09/26/20 TELEVISION NEWS REPORTER [address] [place] [address] documented as of this encounter
--- OUTSIDE RECORDS SUMMARY | 2022-06-02 16:07 | XMS_ITS | Encounter Summary ---
:1985 Author Organization [facility] Address [address] [place] [address] Care Team Providers Name Role Phone Rashida Pederson APRN DRYWALL CARRIER Primary Care Provider [phone] Rashida Pederson APRN DRYWALL CARRIER Unavailable [phone] Rashida Pederson APRN DRYWALL CARRIER Unavailable [phone] Encounter Details Date Type Department Care Team Description 06/06/2015 Communication - [facility] E-VISITS Provider, William clay Social History Tobacco Use Types Packs/Day Years [...] on filedocumented in this encounter Care Teams Client Solutions Specialist Relationship Specialty Start Date End Date Rahsida Pederson APRN PCP - General Nurse Practitioner 10/08/14 DRYWALL CARRIER [address] [place], [place] [id number] Rashida Pederson APRN PCP - Assigned PCP 10/14/14 10/18/18 DONNY [address] [facility] [place] [address] Rashida Pederson APRN Assigned PCP 10/14/14 1 09/26/20 DRYWALL CARRIER [address] [facility] [place] [address] documented as of this encounter
--- OUTSIDE RECORDS SUMMARY | 2022-06-02 16:07 | XMS_ITS | Encounter Summary ---
:1985 Author Organization [facility] Address [address] [place] [address] Care Team Providers Name Role Phone Rashida Pederson APRN, CNP Primary Care Provider [phone] Rashida Pederson APRN OPERATIONAL TEST MECHANIC Unavailable [phone] Rashida Pederson APRN OPERATIONAL TEST MECHANIC Unavailable [phone] Reason for Visit Reason Onset Date Comments No Show 09/06/2017 Encounter Details Date Type Department Care Team Description 09/06/2017 Office Visit [facility] Rashida Pederson NO SHOW (P rimary Dx) Clinic [place] ZIYAD Benitez CNP [address] [place] [address] [phone] Social History Tobacco Use Types Packs/Day Years Used Date Smoking Tobacco: Some Days Cigarettes 0.5 10 L ast attempted to quit: 07/19/2012 Smokeless Tobacco: Never Alcohol Use Standard Drinks/Week Comments Yes 0 (1 standard drink = 0.6 oz pure alcoho l) 1-4d 1x/wk Sex Assigned at Date Recorded Not on file documented as of this encounter Progress Notes Rashida Pederson APRN CNP - 09/06/2017 1:15 PM CST This patient was a no show for this scheduled appointment. COMMUNICATIONS FIELD TECHNICIAN documented in this encounter Plan of Treatment Not on filedocumented as of this encounter Visit Diagnoses Diagnosis NO SHOW - Primary documented in this encounter Additional Health Concerns Assessment Noted Time PHQ-9 Depression Total Score: 9 04/21/2017 2:17 PM CDT documented as of this encounter Care Teams Program Support Assistant Relationship Specialty Start Date End Date Rashida Pederson APRN PCP - General Nurse Practitioner 10/08/14 OPERATIONAL TEST MECHANIC [address] [place] [address] Rashida Pederson APRN PCP - Assigned PCP 10/14/14 10/18/18 OPERATIONAL TEST MECHANIC [address] [place] [address] Rashida Pederson APRN Assigned PCP 10/14/14 1 09/26/20 OPERATIONAL TEST MECHANIC [address] [place] [address] documented as of this encounter
--- OUTSIDE RECORDS SUMMARY | 2022-06-02 16:07 | XMS_ITS | Encounter Summary ---
:1985 Author Organization [facility] Address [address] [place] [address] Care Team Providers Name Role Phone Rashida Pederson APRN, CNP Primary Care Provider [phone] Rashida Pederson APRN [facility] Unavailable [phone] Rashida Pederson APRN, CNP Unavailable [phone] Reason for Visit Reason Comments Physical fasting Encounter Details Date Type Department Care Team Description 03/27/2016 Office Visit [facility] Rashida Pederson hi story and physical examination of adult (Primary Dx); [facility] [place] ZIYAD Benitez Major depressive disorder, r ecurrent episode, mild (H); [address] [facility] Anxiety; [place] [address] [facility] Acute non-recurrent frontal sinusitis; [id number] [place], [place] CARDIOVASCULAR SCREENING; LD L GOAL LESS THAN [phone] Social History Tobacco Use Types Packs/Day Years [...] Sign Reading Time Taken Comments Blood Pressure 104/70 03/27/2016 9:32 AM CDT Pulse 85 03/27/2016 9:32 AM CDT Temperature 36.7 ??C (98 ??F) 03/27/2016 9:32 AM CDT Respiratory Rate - - Oxygen Saturation - - Inhaled Oxygen Concentration - - Weight 104.8 kg (231 lb) 03/27/2016 9:32 AM CDT Height 163.8 cm (5' 4.5) 03/27/2016 9:32 AM CDT Body Mass Index 39.04 03/27/2016 9:32 AM CDT documented in this encounter Patient Instructions Patient InstructionsConstance Coffey CMA - 03/27/2016 9:20 AM CDT Preventive Health Recommendations Female Ages [...] six months for an exam and cleaning. ?? documented in this encounter Progress Notes Rashida Pederson APRN CNP - 03/31/2016 7:56 AM CDT Quick Note: William Ford, Your vitamin D level was normal at 35. Sincerely, Rashida Pederson CNP Rashida Pederson APRN CNP - 03/30/2016 6:59 AM CDT Quick Note: William Ford, Your tests for gonorrhea and chlamydia are negative. Sincerely, Rashida Pederson CNP Rashida Pederson APRN CNP - 03/28/2016 8:16 PM CDT Quick Note: William Ford, Your lab results are as below: 1) TSH (thyroid level) 3.95 which is normal (range 0.4-4) 2) Cholesterol was slightly elevated at 215, your LDL (bad cholesterol) and your HDL (good cholesterol) were within normal range. Continue to follow a low cholesterol diet and we will recheck this in 1 year. 3) Glucose was normal at 86 (normal fasting is <100). If you have any questions do not hesitate to call the clinic to discuss the results with me further. Sincerely, Rashida Pederson CNP aRshida Pederson APRN CNP - 03/27/2016 12:57 PM CDT Quick Note: William Ford, Your CBC and wet prep (checks for yeast and bacterial vaginosis) were normal. Sincerely Rashida Pederson Rashida Pederson APRN CNP - 03/27/2016 9:20 AM CDT SUBJECTIVE: CC: Logan Arredondo is an 30 year old woman who presents for preventive health visit. Healthy Habits: ?? Do you get at least three servings of calcium containing foods daily (dairy, green leafy vegetables, etc.)? yes ?? Amount of exercise or daily activities, outside of work: active ?? Problems taking medications regularly No ?? Medication side effects: No ?? Have you had an eye exam in the past two years? no ?? Do you see a dentist twice per year? yes ?? Do you have sleep apnea, excessive snoring or daytime drowsiness?no Other concerns to address: 1. Cold symptoms: Nasal congestion, fatigue, sinus pressure with headache for 9 days. Taking ibuprofen/tylenol, sudafed. 2. Cervical cancer screening: Last pap 2012, denies vaginal discharge, infrequent vaginal bleeding. Mirena IUD for control. 4. Depression: Taking lexapro 20 mg every day. PHQ 9 score of 5, GAD7 score of 3. 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 Today's PHQ-2 Score: PHQ-2 (??1998 Pfizer) 03/27/2016 09/17/2015 Q1: Little interest or pleasure in doing things 0 2 Q2: Feeling down, depressed or hopeless 0 0 PHQ-2 Score 0 2 Little interest or pleasure in doing things - - Feeling down, depressed or hopeless - - PHQ-2 Score - - Abuse: Current or Past(Physical, Sexual or Emotional)- No Do you feel safe in your environment - Yes Social History Substance Use Topics ??? Smoking status: Former Smoker -- 0.50 packs/day for 5 years Types: Cigarettes Quit date: 07/19/2012 ??? Smokeless tobacco: Never Used ??? Alcohol Use: Yes Comment: 1-4d 1x/wk The patient does not drink >3 drinks per day nor >7 drinks per week. No results for input(s): CHOL, HDL, LDL, TRIG, CHOLHDLRATIO, NHDL in the last [id number] hours. Reviewed orders with patient. Reviewed health maintenance and updated orders accordingly - Yes Mammo Decision Support: Mammogram not appropriate for this patient based on age. Last Mammo:No results found. History of abnormal Pap smear: NO - age 21-29 PAP every 3 years recommended All Histories reviewed and updated in [facility]. ROS: C: NEGATIVE for fever, chills, change in weight I: NEGATIVE for worrisome rashes, moles or lesions E: NEGATIVE for vision changes or irritation ENT: NEGATIVE for ear, mouth and throat problems R: NEGATIVE for significant cough or SOB B: NEGATIVE for masses, tenderness or discharge CV: NEGATIVE for chest pain, palpitations or peripheral edema GI: NEGATIVE for nausea, abdominal pain, heartburn, or change in bowel habits : NEGATIVE for unusual urinary or vaginal symptoms. Periods are irregular, IUD. M: NEGATIVE for significant arthralgias or myalgia N: NEGATIVE for weakness, dizziness or paresthesias P: NEGATIVE for changes in mood or affect OBJECTIVE: BP 104/70 mmHg Pulse 85 Temp(Src) 98 ??F (36.7 ??C) (Oral) Ht 5' 4.5 (1.638 m) Wt 231 lb (104.781 kg) BMI 39.05 kg/m2 EXAM: GENERAL: healthy, alert and no [...] rub, no peripheral edemaand peripheral pulses strong ABDOMEN: soft, nontender, no hepatosplenomegaly, no masses and bowel sounds normal : normal female external genitalia, vaginal mucosa pink, moist, well rugated and normal cervix, adnexae, and uterus without masses. Normal vaginal discharge. No CMT. MS: no gross musculoskeletal defects noted, no edema SKIN: no suspicious lesions or rashes NEURO: Normal strength and tone, mentation intact and speech normal PSYCH: mentation appears normal, affect normal/bright ASSESSMENT/PLAN: Logan was seen today for physical. Diagnoses and all orders for this visit: Routine history and physical examination of adult - PAP IMAGED THIN LAYER SCREEN - NEISSERIA GONORRHOEA PCR - CHLAMYDIA TRACHOMATIS PCR - Wet prep - CBC with platelets differential - Comprehensive metabolic panel - Lipid panel reflex to direct LDL - TSH with free T4 reflex - Vitamin D Deficiency Major depressive disorder, recurrent episode, mild (H): Well controlled - escitalopram (LEXAPRO) 20 MG tablet; Take 1 tablet (20 mg) by mouth daily Anxiety - escitalopram (LEXAPRO) 20 MG tablet; Take 1 tablet (20 mg) by mouth daily - LORazepam (ATIVAN) 0.5 MG tablet; Take 1 tablet (0.5 mg) by mouth every 8 hours as needed for anxiety Acute non-recurrent frontal sinusitis: Discussed continuation of sudafed if no improvement over the weekend start amoxicillin. - amoxicillin (AMOXIL) 875 MG tablet; Take 1 tablet (875 mg) by mouth 2 times daily CARDIOVASCULAR SCREENING; LDL GOAL LESS THAN 160 COUNSELING: Reviewed preventive health counseling, as reflected in patient instructions Regular exercise Healthy diet/nutrition reports that she quit smoking about 3 years ago. Her smoking use included Cigarettes. She has a 2.5pack-year smoking history. She has never used smokeless tobacco. Estimated body mass index is 39.05 kg/(m^2) as calculated from the following: Height as of this encounter: 5' 4.5 (1.638 m). Weight as of this encounter: 231 lb (104.781 kg). Weight management plan: Discussed healthy diet and exercise guidelines and patient will follow up in6 months in clinic to re-evaluate. Counseling Resources: ATP IV Guidelines Pooled Cohorts Equation Calculator Breast Cancer Risk Calculator FRAX Risk Assessment ICSI Preventive Guidelines Dietary Guidelines for Americans, 2009 USDA's MyPlate ASA Prophylaxis Lung CA Screening Follow up in 6 months for depression, may complete phone visit. Rashida Pederson APRN CNP [facility] documented in this encounter Nursing Notes Constance Coffey CMA - 03/27/2016 9:35 AM CDT Chief Complaint Patient presents with ??? Physical fasting Initial BP 104/70 mmHg Pulse 85 Temp(Src) 98 ??F (36.7 ??C) (Oral) Ht 5' 4.5 (1.638 m) Wt 231 lb (104.781 kg) BMI 39.05 kg/m2 Estimated body mass index is 39.05 kg/(m^2) as calculated from the following: Height as of this encounter: 5' 4.5 (1.638 m). Weight as of this encounter: 231 lb (104.781 kg). BP completed using cuff size: large.Constance Sexton MA documented in this encounter Plan of Treatment Not on filedocumented as of this encounter Procedures Procedure Name Priority Date/Time Associated Comments Diagnosis CBC WITH PLATELETS & Routine 03/27/2016 10:12 Routine history and Results for this DIFFERENTIAL AM CDT physical procedure are i n examination of the results adult section. VITAMIN D DEFICIENCY Routine 03/27/2016 10:12 Routine history and Results for this SCREENING AM CDT physical procedure are i n examination of the results adult section. TSH WITH FREE T4 Routine 03/27/2016 10:12 Routine history and Results for this REFLEX AM CDT physical procedure are i n examination of the results adult section. LIPID REFLEX TO DIRECT Routine 03/27/2016 10:12 Routine histor y and Results for this LDL PANEL AM CDT physical procedure are i n examination of the results adult section. COMPREHENSIVE Routine 03/27/2016 10:12 Routine history and Res ults for this METABOLIC PANEL AM CDT physical procedure ar e in examination of the results adult section. WET PREPARATION Routine 03/27/2016 10:00 Routine history and R esults for this AM CDT physical procedure are i n examination of the results adult section. NEISSERIA GONORRHOEAE Routine 03/27/2016 10:00 Routine history and Results for this PCR AM CDT physical procedure are i n examination of the results adult section. CHLAMYDIA TRACHOMATIS Routine 03/27/2016 10:00 Routine history and Results for this PCR AM CDT physical procedure are i n examination of the results adult section. PAP IMAGED THIN LAYER Routine 03/27/2016 12:00 Routine history and Results for this SCREEN AM CDT physical procedure are i n examination of the results adult section. documented in this encounter Results Vitamin D Deficiency (03/27/2016 10:12 AM CDT) P athologist Signature Vitamin D 35 20 - 75 [facility] Deficiency ug/L [place] [facility] Comment: Season, race, dietary intake, and treatm ent affect the concentration of 12-lmvctwe-Jxivhyd D. Values may decrea se during winter months and increase during summer months. Values 20-29 ug/L may indicate Vitamin D insufficiency and values <20 ug/L may indicate Vitami n D deficiency. Vitamin D determination is routinely pe rformed by an immunoassay specific for 25 hydroxyvitamin D3. ??If an individua l is on vitamin D2 (ergocalciferol) supplementation, please specify 25 [place] v itamin D2 and D3 level determination by LCMSMS test [id number]. Specimen Anatomical Collection Method Collection Time Receive d Time (Source) Location / / Volume Laterality Blood specimen 03/27/2016 10:12 6 (specimen) AM CDT 10:13 AM CDT Rashida Pederson APRN, CNP LAB - BLOOD ORDERABLES Performing Organization Address City/State/ZIP Code Phon e Number [facility] [address] [place] [address] [facility] TSH with free T4 reflex (03/27/2016 10:12 AM CDT) athologist Signature TSH 3.95 0.40 - 4.00 [facility] mU/L [facility] Specimen Anatomical Collection Method Collection Time Receive d Time (Source) Location / / Volume Laterality Blood specimen 03/27/2016 10:12 6 (specimen) AM CDT 10:13 AM CDT Rashida Pederson APRN, CNP LAB - BLOOD ORDERABLES Performing Organization Address City/State/ZIP Code Phon e Number [facility] [address] [place] [address] (ABNORMAL) Lipid panel reflex to direct LDL (03/27/2016 10:12 AM CDT) P athologist Signature Cholesterol 215 (H) <200 mg/dL [facility] Comment: Desirable: <200 mg/dl Triglycerides 111 <150 mg/dL [facility] Comment: Fasting specimen HDL Cholesterol 56 >49 mg/dL [place] [facility] LDL Cholesterol Calculated 137 (H) <100 mg/dL [facility] Comment: Above desirable: ??100-129 mg/dl Borderline High: ??130-159 mg/dL High: ? 160-189 mg/dL Very high: ? >189 mg/dl Non HDL Cholesterol 159 (H) <130 mg/dL [facility] Comment: Above Desirable: ??130-159 mg/dl Borderline high: ??160-189 mg/dl High: ? 190-219 mg/dl Very high: ? >219 mg/dl Specimen Anatomical Collection Method Collection Time Receive d Time (Source) Location / / Volume Laterality Blood specimen 03/27/2016 10:12 6 (specimen) AM CDT 10:13 AM CDT Rashida Pederson APRN [facility] LAB - BLOOD ORDERABLES Performing Organization Address City/State/ZIP Code Phon e Number [facility] [address] [place] [address] (ABNORMAL) Comprehensive metabolic panel (03/27/2016 10:12 AM CDT) [facility] gist Method Time Signature Sodium 136 133 - 144 [place] mmol/L [facility] Potassium 4.3 3.4 - 5.3 [place] mmol/L [facility] Chloride 103 94 - 109 [place] mmol/L [facility] Carbon Dioxide 25 20 - 32 [place] mmol/L [facility] Anion Gap 8 3 - 14 [place] mmol/L [facility] Glucose 86 70 - 99 [place] mg/dL [facility] Urea Nitrogen 10 7 - 30 [place] mg/dL [facility] Creatinine 0.58 0.52 - [place] 1.04 CLINICS mg/dL [facility] GFR Estimate >90 >60 [place] Non GFR Calc mL/min/1. CLINICS [address]2 [facility] GFR Estimate If >90 >60 [place] Black GFR Calc mL/min/1. CLIN ICS 7m2 [facility] Calcium 9.2 8.5 - [facility] 10.1 CL[facility] mg/dL [facility] Bilirubin Total 0.4 0.2 - 1.3 [place] mg/dL [facility] Albumin 4.1 3.4 - 5.0 [place] g/dL [facility] Protein Total 8.2 6.8 - 8.8 [place] g/dL [facility] Alkaline 119 40 - 150 [place] Phosphatase U/L [facility] ALT 58 (H) 0 - 50 [facility] U/L [facility] AST 42 0 - 45 [place] U/L [facility] Specimen Anatomical Collection Method Collection Time Receive d Time (Source) Location / / Volume Laterality Blood specimen 03/27/2016 10:12 6 (specimen) AM CDT 10:13 AM CDT Rashida Pederson APRN [facility] LAB - BLOOD ORDERABLES Performing Organization Address City/State/ZIP Code Phon e Number [facility] [address] [place] [address] CBC with platelets differential (03/27/2016 10:12 AM CDT) [facility] gist Method Time Signature WBC 6.3 4.0 - [facility] 11.0 CLINICS 10e9/L [facility] RBC Count 4.67 3.8 - 5.2 [place] 10e12/L [facility] Hemoglobin 14.5 11.7 - [place] 15.7 g/dL [facility] Hematocrit 42.6 35.0 - [place] 47.0 % [facility] MCV 91 78 - 100 [facility] MCH 31.0 26.5 - [place] 33.0 pg [facility] MCHC 34.0 31.5 - [place] 36.5 g/dL [facility] RDW 12.0 10.0 - [place] 15.0 % [facility] Platelet Count 245 150 - 450 [place] 10e9/L [facility] Diff Method Automated [place] Method [facility] % Neutrophils 47.7 % [facility] % Lymphocytes 40.3 % [facility] % Monocytes 9.0 % [facility] % Eosinophils 2.7 % [facility] % Basophils 0.3 % [facility] Absolute 3.0 1.6 - 8.3 [place] Neutrophil 10e9/L [facility] Absolute 2.5 0.8 - 5.3 [place] Lymphocytes 10e9/L [facility] Absolute 0.6 0.0 - 1.3 [facility] Monocytes 10e9/L [facility] Absolute 0.2 0.0 - 0.7 [facility] Eosinophils 10e9/L [facility] Absolute 0.0 0.0 - 0.2 [facility] Basophils 10e9/L [facility] Specimen Anatomical Collection Method Collection Time Receive d Time (Source) Location / / Volume Laterality Blood specimen 03/27/2016 10:12 6 (specimen) AM CDT 10:13 AM CDT Rashida Pederson APRN [facility] LAB - BLOOD ORDERABLES Performing Organization Address [facility] Phon e Number [facility] [address] [place] [address] Wet prep (03/27/2016 10:00 AM CDT) [facility] Method Time Signature Specimen Vagina [place] Description [facility] Wet Prep No Trichomonas seen [place] No clue cells seen [facility] No yeast seen [facility] Micro Report FINAL [place] Status 03/27/2016 [facility] Specimen Anatomical Collection Method Collection Time Receive d Time (Source) Location / / Volume Laterality 03/27/2016 10:00 03/27/2016 AM CDT 10:25 AM CDT Rashida Pederson APRN, CNP LAB - MICRO GENERAL ORDER SUSHMA Performing Organization Address [facility] Phon e Number [facility] [address] [place] [address] CHLAMYDIA TRACHOMATIS PCR (03/27/2016 10:00 AM CDT) Component Value Ref Test Analysis Performed At [facility] Range Method Time Signature Specimen Cervical [facility] Description [facility] Chlamydia Negative NEG [facility] Trachomatis Negative for C. trachomatis rRNA by community service officer coordinator mediated amplification. [place] [facility] A negative result by transc ription mediated amplification does not preclude the [facility] presence of C. trachomatis infection because re sults are dependent on proper BANK and adequate collection, absence of inhibitors, and suffici ent rRNA to be detected. Specimen (Source) Anatomical Collection Method Collection Time Re ceived Time Location / / Volume Laterality Endocervical swab 03/27/2016 10:00 2015 (procedure) AM CDT 10:24 AM CDT Rashida Pederson APRN [facility] LAB - MICRO GENERAL ORDER SUSHMA Performing Organization Address [facility] Phon e Number [address] [address] NEISSERIA GONORRHOEA PCR (03/27/2016 10:00 AM CDT) Component Value Ref Test Analysis Performed At [facility] gist Range Method Time Signature Specimen Cervical [facility] N Gonorrhea Negative NEG [facility] Negative for N. gonorrhoeae rRNA by transcripti on mediated amplification. [facility] A negative result by transc ription mediated amplification does not preclude the [facility] presence of N. gonorrhoeae infection because re sults are dependent on proper BANK and adequate collection, absence of inhibitors, and suffici ent rRNA to be detected. Specimen (Source) Anatomical Collection Method Collection Time Re ceived Time Location / / Volume Laterality Endocervical swab 03/27/2016 10:00 2015 (procedure) AM CDT 10:24 AM CDT Rashidagladys Kendricklenore Pederson APRN [facility] LAB - MICRO GENERAL ORDER SUSHMA Performing Organization Address [facility] Code Phon e Number [id number] [place] [id number] PAP IMAGED THIN LAYER SCREEN (03/27/2016 12:00 AM CDT) Component Value Ref Test Analysis Performed At [facility] gist Range Method Time Signature PAP NIL [facility] Copath Report [facility] Patient Name: LOGAN BARGER MR#: [id number] Specimen #: [id number] Collected: 03/27/2016 Received: 03/30/2016 Reported: 04/01/2016 09:33 Ordering Phy(s): RASHIDA PEDERSON SPECIMEN/STAIN PROCESS: Pap imaged thin layer prep screening (Surepath, FocalPoint w ith guided screening) ? Pap-Cyto x 1 SOURCE: Cervical, endocervical ---- Pap imaged thin layer prep screening (Surepath, FocalPoint with guided screening) SPECIMEN ADEQUACY: Satisfactory for evaluation. -Transformation zone component absent. CYTOLOGIC INTERPRETATION: Negative for Intraepithelial Lesion or Malignancy Electronically signed out by: MARV Light (ASCP) Processed and screened at [facility] CLINICAL HISTORY: Intra-Uterine Device, Previous normal pap Date of Last Pap: 11/09/12, Papanicolaou Test Limitations: ??Cervical cytology is a scre ening test with limited sensitivity; regular screening is critical for cancer prevention; Pap tests are primarily effective for the diagnosis/prevention of squamous cell carcinoma, not adenoca rcinomas or other cancers. TESTING LAB LOCATION: [address] ??[id number] COLLECTION SITE: Client: ??[facility] Location: [facility] (R) Specimen (Source) Anatomical Collection Method Collection Time Re ceived Time Location / / Volume Laterality Cytologic 03/27/2016 03/30/2016 1:32 material PM CDT (specimen) Rashida Pederson APRN [facility] - OPTIME CLINICAL SPE [facility] Performing Organization Address City/State/ZIP Code Phon e Number [place] documented in this encounter Visit Diagnoses Diagnosis Routine history and physical examination of adult - Primary Routine general medical examination at a health care facility Major depressive disorder, recurrent epi sode, mild (H) Major depressive disorder, recurrent epi sode, mild Anxiety Anxiety state, unspecified Acute non-recurrent frontal sinusitis CARDIOVASCULAR SCREENING; LDL GOAL LESS THAN 160 documented in this encounter Additional Health Concerns Assessment Noted Time PHQ-9 Depression Total Score: 5 03/28/2016 7:13 AM CDT documented as of this encounter Care Teams Top Case Assembler Relationship Specialty Start Date End Date Rashida Pederson APRN PCP - General Nurse Practitioner 10/08/14 [facility] [address] [place] [address] Rashida Pederson APRN PCP - Assigned PCP 10/14/14 10/18/18 [facility] [address] [place] [address] Rashida Pederson APRN Assigned PCP 10/14/14 1 09/26/20 [facility] [address] [place] [place] [id number] documented as of this encounter
--- OUTSIDE RECORDS SUMMARY | 2022-06-02 16:07 | XMS_ITS | Encounter Summary ---
:1985 [facility] Address [address] [place] [address] Home Phone Mobile Phone Email Address Email Address Preferred Language Yi Marital Status Single Mandaen Affiliation Unknown Race White Ethnic Group Unknown Author Organization [place] Address [address] [place] [address] Care Team Providers Name Role Phone Rashida Pederson APRN EXCEL ANALYST Primary Care Provider [phone] Rashida Pederson APRN EXCEL ANALYST Unavailable [phone] BgRashida cornejo APRN EXCEL ANALYST Unavailable [phone] Reason for Visit Reason Comments URI Cough Encounter Details Date Type Department Care Team Description 07/25/2016 Emergency [facility] Caio Guzman Bronchitis ; [facility] DO Palmer Reactive airway disease Emergency Room [address] [address] [place] [address] [facility] [phone] Social History Tobacco Use Types Packs/Day Years [...] - Inhaled Oxygen Concentration - - Weight 108.9 kg (240 lb) 07/25/2016 1:02 AM INSIDE PARTS SALES Height 167.6 cm (5' 6) 07/25/2016 1:02 AM INSIDE PARTS SALES Body Mass Index 38.74 07/25/2016 1:02 AM INSIDE PARTS SALES documented in this encounter Medications at Time of Discharge Medication Sig Dispensed Refills Start Date End Date amoxicillin (AMOXIL) 875 Take 1 tablet (875 20 tablet 0 07/201607/31/2016 MG tabletIndications: mg) by mouth 2 times Acute non-recurrent daily frontal sinusitis escitalopram (LEXAPRO) Take 1 tablet (20 mg) 90 tablet 1 07/31/2016 20 MG tabletIndications: by mouth daily Major depressive disorder, recurrent episode, mild (H), Anxiety levonorgestrel (MIRENA) 1 each by 0 08/07/2013 1 09/26/2017 20 MCG/24HR IUD Intrauterine route once LORazepam (ATIVAN) 0.5 Take 1 tablet (0.5 30 tablet 0 03/2704/21/2017 MG tabletIndications: mg) by mouth every 8 Anxiety hours as needed for anxiety VENTOLIN HFA 108 (90 INHALE 2 PUFFS Q 4 H 0 07/2502/15/2017 BASE) MCG/ACT PRN FOR WHEEZING OR InhalerIndications: COUGHING Acute bronchitis due to other specified organisms documented as of this encounter Progress Notes Jayson Sanderson - 07/25/2016 1:39 AM CST 07/25/16 0131 07/25/16 0139 Respiratory Assessment Assessment Type Pre-treatment Post-treatment Respiratory Pattern Regular Regular Chest Assessment Chest expansion symmetrical Chest expansion symmetrical Bilateral Breath Sounds Clear Clear Respiratory Treatments Medications Albuterol;Atrovent -- $ Delivery Device - Aerosol Initial Tx HHN -- Pre-Treatment Pulse 93 -- Pre-Treatment Respirations 18 -- Pre-Treatment Sp02 100 -- Breath Sounds Pre-Treatment Right Clear -- Breath Sounds Pre-Treatment Left Clear -- Post-Treatment Pulse -- 95 Post-Treatment Respirations -- 16 Post-Treatment Sp02 -- 100 Breath Sounds Post-Treatment Right -- Clear Breath Sounds Post-Treatment Left -- Clear Position High Cobos's -- Treatment Tolerance -- Tolerated well DE PARTS SALES documented in this encounter ED Notes Caio Guzman DO - 07/25/2016 1:11 AM CST eMERGENCY dEPARTMENT eNCOUnter CHIEF COMPLAINT Chief Complaint Patient presents with ??? URI ??? Cough HPI Logan Arredondo is a 31 y.o. female who presents with cough. 1 week ago, patient developed a gradual onset of a cough with associated wheezing both of which have persisted since. Last week, she did present to [facility] where she was diagnosed with URI. She was prescribed cough syrup which has not shown improvement since. Patient was also prescribed prednisone which has also not shown improvement to her symptoms. Today, her symptoms continued to persist without improvement. Currently in the ED, the patient continues to complain of her dry cough. She denies any known alleviating factors. Patient denies any associated symptoms of fevers within the past 24 hours, nausea, vomiting, diarrh ea, chest pain, SOB, chills, or any other injuries or complaints. The creation of this record is based on the scribe???s observations of the work being performed by Caio Guzman DO and the provider???s statements to them. It was created on his behalf by Casey Lawton, a trained medical cost consultant. This document has been checked and approved by the attending provider. PAST MEDICAL HISTORY Past Medical History Diagnosis Date ??? Pulmonary embolism Past Surgical History Procedure Laterality Date ??? Appendectomy CURRENT MEDICATIONS Previous Medications CODEINE-GUAIFENESIN (GUAIFENESIN AC) 10-100 MG/5 ML LIQUID Take 10 mL by mouth every 6 (six) hours as needed for cough. ESCITALOPRAM OXALATE (LEXAPRO) 20 MG TABLET LEVONORGESTREL (MIRENA) 20 MCG/24 HR (5 YEARS) IUD 1 each by Intrauterine route. LORAZEPAM (ATIVAN) 0.5 MG TABLET PREDNISONE (DELTASONE) 10 MG TABLET Take 4 tablets (40 mg total) by mouth daily for 5 days. ALLERGIES Allergies Allergen Reactions ??? Bupropion Hcl Other (See Comments) ??? Estrogens Other (See Comments) Blood clots FAMILY HISTORY Family History Problem Relation Age of Onset ??? Hypertension Father SOCIAL HISTORY Social History Social History ??? Marital status: Single Spouse name: N/A ??? Number of children: 0 ??? 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 Smoking status: Current Some Day Smoker Packs/day: 0.25 Types: Cigarettes ??? Smokeless tobacco: Never Used ??? Alcohol use 1.5 oz/week 3 Standard drinks or equivalent per week ??? Drug use: No ??? Sexual activity: Yes Partners: Male control/ protection: IUD Other Topics Concern ??? Not on file Social History Narrative REVIEW OF SYSTEMS Constitutional: Patient did have recorded fever earlier this week however this has since resolved. HENT: Denies sore throat, ear pain, congestion Respiratory: No SOB. Positive for wheeze and cough Cardiovascular: No CP GI: Denies abdominal pain, nausea, vomiting, diarrhea Musculoskeletal: Denies any new muscle/joint pain Neurologic: Denies headache All other systems negative unless noted in HPI. PHYSICAL EXAM VITAL SIGNS: Visit Vitals ??? BP (!) 142/91 (Patient Position: Lying) ??? Pulse 97 ??? Temp 98.6 ??F (37 ??C) (Oral) ??? Resp 16 ??? Ht 5' 6 (1.676 m) ??? Wt (!) 240 lb (108.9 kg) ??? No ??? BMI 38.74 kg/m2 General Appearance: Well-appearing, well-nourished, no acute distress Head: Normocephalic, without obvious abnormality, atraumatic Eyes: PERRL, conjunctiva/corneas clear, EOM's intact, ENT: Lips, mucosa, and tongue normal; teeth and gums normal, membranes are moist without pallor Neck: Supple, symmetrical, trachea midline, no adenopathy; Cardio: Regular rate and rhythm, no murmur, rub or gallop, 2+ pulses symmetric in all extremities Pulm: Diffuse wheeze, respirations unlabored, Abdomen: Soft, non-tender, bowel sounds active all four quadrants, no rebound or guarding. Extremities: Extremities normal, atraumatic, no cyanosis or edema, full ROM and motor tone intact, bilateral pulses intact upper and lower Skin: Skin warm, dry, no rashes Neuro: Alert and oriented ??3, moving all extremities, no gross sensory defects ED COURSE & MEDICAL DECISION MAKING Pertinent Labs and Imagaing reviewed (see chart for details) 31 y.o. female presenting with complaint of one week of persistent nonproductive cough without fevertoday however did have fever couple of days ago. Patient did have wheezing on exam which improved significantly with duo nebs. Based on her symptoms do not believe imaging is indicated however do believe it is consistent with bronchitis. Will have follow-up with her primary care. Return precautions discussed. At the conclusion of the encounter I discussed the results of all of the tests and the disposition. The questions were answered. The patient or family acknowledged understanding and was agreeable with the care plan. FINAL IMPRESSION Final diagnoses: None Discharge Medication List as of 07/25/2016 2:32 AM START taking these medications Details albuterol (PROVENTIL HFA;VENTOLIN HFA) 90 mcg/actuation inhaler Inhale 2 puffs every 4 (four) hours as needed for wheezing (or coughing)., Starting 07/25/2016, Until Discontinued, Print azithromycin (ZITHROMAX) 250 MG tablet Take 1 tablet (250 mg total) by mouth daily for 5 days. Take first 2 tablets together, then 1 every day until finished., Starting 07/25/2016, Until Odalys 07/30/16, Print benzonatate (TESSALON) 100 MG capsule Take 1 capsule (100 mg total) by mouth every 8 (eight) hours for 7 days., Starting 07/25/2016, Until 08/01/16, Print This is an accurate record of my words and actions during this visit as documented by the scribe. Caio Guzman DO 07/25/16 0259 DE PARTS SALES documented in this encounter Plan of Treatment Not on filedocumented as of this encounter Visit Diagnoses Diagnosis Bronchitis Bronchitis, not specified as acute or ch ronic Reactive airway disease Unspecified asthma documented in this encounter Additional Health Concerns Assessment Noted Time PHQ-9 Depression Total Score: 5 03/28/2016 7:13 AM CDT documented as of this encounter Care Teams Skiving Machine Operator Relationship Specialty Start Date End Date Rashida Pederson APRN PCP - General Nurse Practitioner 10/08/14 EXCEL ANALYST [address] [place] [address] Rashida Pederson APRN PCP - Assigned PCP 10/14/14 3 EXCEL ANALYST [address] [place], [place] [id number] Rashida Pederson APRN Assigned PCP 10/14/14 1 09/26/20 EXCEL ANALYST [address] [place] [address] documented as of this encounter
--- OUTSIDE RECORDS SUMMARY | 2022-06-02 16:07 | XMS_ITS | Encounter Summary ---
:1985 Author Organization [facility] Address [address] [place] [address] Care Team Providers Name Role Phone Rashida Pederson APRN MULTIMEDIA TEACHER Primary Care Provider [phone] BgRashida cornejo APRN MULTIMEDIA TEACHER Unavailable [phone] BgRashida cornejo APRN MULTIMEDIA TEACHER Unavailable [phone] Encounter Details Date Type Department Care Team Description 05/05/2016 Records - [facility] Provider, Peng smith [facility] [place] [address] Social History Tobacco Use Types [...] Name Priority Date/Time Associated Diagnosis Comme nts HEPATITIS B SURFACE Routine 05/05/2016 8:30 PM Re sults for this ANTIBODY CDT procedure are i n the results section. documented in this encounter Results Hepatitis B Surface Antibody (05/05/2016 8:30 PM CDT) Patholo gist Method Time Signature Hepatitis B Positive Positive 05/06/2016 [facility] Surface 8:38 AM CDT [facility] Value Specimen Anatomical Collection Method / Collection Time Recei merry Time (Source) Location / Volume Laterality Blood specimen Venipuncture / 05/05/2016 8:30 05/05/20 16 (specimen) Unknown PM CDT 10:52 PM CDT Historical Provider LAB - BLOOD ORDERABLES Performing Organization Address City/State/ZIP Code Phon [place] [address] [address] [facility] documented in this encounter Visit Diagnoses Not on filedocumented in this encounter Additional Health Concerns Assessment Noted Time PHQ-9 Depression Total Score: 5 03/28/2016 7:13 AM CDT documented as of this encounter Care Teams Road Inspector Relationship Specialty Start Date End Date Rashida Pederson APRN PCP - General Nurse Practitioner 10/08/14 MULTIMEDIA TEACHER [address] [place] [address] Rashida Pederson APRN PCP - Assigned PCP 10/14/14 10/18/18 MULTIMEDIA TEACHER [address] [place] [address] Rashida Pederson APRN Assigned PCP 10/14/14 1 09/26/20 MULTIMEDIA TEACHER [address] [place] [address] documented as of this encounter
--- OUTSIDE RECORDS SUMMARY | 2022-06-02 16:07 | XMS_ITS | Encounter Summary ---
:1985 Author Organization [facility] Address [address] [place] [address] Care Team Providers Name Role Phone Rashida Pederson APRN TRANSFORMER MOLDER Primary Care Provider [phone] BgRashida cornejo APRN TRANSFORMER MOLDER Unavailable [phone] Bg, Rashida Benitez APRN TRANSFORMER MOLDER Unavailable [phone] Reason for Visit Reason Comments URI Encounter Details Date Type Department Care Team Description 07/31/2016 Office Visit [facility] Hailey Kearney, Acsun e bronchitis due [facility] [place] PA-C to other specified [address] [place] [id number] [place] [address] organisms (Primary [facility], [place], [place] Dx) [id number] [phone] (Wo rk) Social History Tobacco Use Types [...] Sign Reading Time Taken Comments Blood Pressure 128/87 07/31/2016 1:25 PM PUBLIC WORKS INSPECTOR Pulse 77 07/31/2016 1:25 PM PUBLIC WORKS INSPECTOR Temperature 36.8 ??C (98.3 ??F) 07/31/2016 1:25 PM PUBLIC WORKS INSPECTOR Respiratory Rate 16 07/31/2016 1:25 PM PUBLIC WORKS INSPECTOR Oxygen Saturation - - Inhaled Oxygen Concentration - - Weight 109.3 kg (241 lb) 07/31/2016 1:25 PM PUBLIC WORKS INSPECTOR Height - - Body Mass Index 38.9 07/25/2016 1:02 AM PUBLIC WORKS INSPECTOR documented in this encounter Progress Notes Hailey Kearney PA-C - 07/31/2016 1:17 PM CST SUBJECTIVE: Logan Arredondo is a 31 year old female who presents to clinic today for the following health issues: Acute Illness Acute illness concerns: URI Onset: x 2 weeks ?? Fever: YES ?? Chills/Sweats: no ?? Headache (location?): YES ?? Sinus Pressure:YES ?? Conjunctivitis: no ?? Ear Pain: YES-bilateral ?? Rhinorrhea: YES ?? Congestion: YES ?? Sore Throat: YES- from cough ?? Cough: YES-productive ?? Wheeze: YES ?? Decreased Appetite: YES ?? Nausea: YES-now resolved ?? Vomiting: no ?? Diarrhea: YES-from meds ?? Dysuria/Freq.: no ?? Fatigue/Achiness: YES ?? Sick/Strep Exposure: no Therapies Tried and outcome: abx, prednisone, inhaler Problem list and histories reviewed & adjusted, as indicated. Additional history: as documented Patient Active Problem List Diagnosis ??? History of pulmonary embolism ??? Dysmenorrhea ??? Mirena IUD (intrauterine device) in place ??? Panic attack ??? Major depression, recurrent (H) ??? Anxiety ??? CARDIOVASCULAR SCREENING; LDL GOAL LESS THAN 160 Past Surgical History Procedure Laterality Date ??? Appendectomy 1993 Social History Substance Use Topics ??? Smoking status: Former Smoker -- 0.50 packs/day for 5 years Types: Cigarettes Quit date: 07/19/2012 ??? Smokeless tobacco: Never Used ??? Alcohol Use: Yes Comment: 1-4d 1x/wk Family History Problem Relation Age of Onset ??? Myocardial Infarction Maternal Grandfather stent palcement ??? Alcohol/Drug Father biologic & adopted ??? Alcohol/Drug Mother biologic mom ??? Alzheimer Disease Maternal Grandmother & PGF ??? Depression Father & Mother ??? Obesity Mother & MGM, PGM, PGF ??? DIABETES No family hx of ??? Hypertension No family hx of ??? CANCER No family hx of ROS: Constitutional, HEENT, cardiovascular, pulmonary, gi and gu systems are negative, except as otherwise noted. OBJECTIVE: BP 128/87 mmHg Pulse 77 Temp(Src) 98.3 ??F (36.8 ??C) (Oral) Resp 16 Wt 241 lb (109.317 kg) Body mass index is 40.74 kg/(m^2). GENERAL APPEARANCE: healthy, alert and no distress HENT: TM fluid bilateral and nasal mucosa edematous without rhinorrhea RESP: rhonchi throughout CV: regular rates and rhythm, normal S1 S2, no S3 or S4 and no murmur, click or rub ASSESSMENT/PLAN: 1. Acute bronchitis due to other specified organisms F/u as needed - VENTOLIN HFA 108 (90 BASE) MCG/ACT Inhaler; INHALE 2 PUFFS Q 4 H PRN FOR WHEEZING OR COUGHING; Refill: 0 - levofloxacin (LEVAQUIN) 500 MG tablet; Take 1 tablet (500 mg) by mouth daily Dispense: 10 tablet; Refill: 0 - mometasone (ASMANEX 30 METERED DOSES) 110 MCG/INH inhaler; Inhale 1 puff into the lungs daily Dispense: 1 Inhaler; Refill: 1 Hailey Kearney PA-C, [facility] IC WORKS INSPECTOR documented in this encounter Nursing Notes Ebony De Guzman MA - 07/31/2016 1:26 PM CST Chief Complaint Patient presents with ??? URI Initial BP 128/87 mmHg Pulse 77 Temp(Src) 98.3 ??F (36.8 ??C) (Oral) Resp 16 Wt 241 lb (109.317 kg) Estimated body mass index is 40.74 kg/(m^2) as calculated from the following: Height as of 03/27/16: 5' 4.5 (1.638 m). Weight as of this encounter: 241 lb (109.317 kg).. BP completed using cuff size large-RA IC WORKS INSPECTOR documented in this encounter Plan of Treatment Not on filedocumented as of this encounter Visit Diagnoses Diagnosis Acute bronchitis due to other specified organisms - Primary documented in this encounter Additional Health Concerns Assessment Noted Time PHQ-9 Depression Total Score: 5 03/28/2016 7:13 AM CDT documented as of this encounter Care Teams Bid Clerk Relationship Specialty Start Date End Date Rashida Pederson APRN PCP - General Nurse Practitioner 10/08/14 TRANSFORMER MOLDER [address] [place] [address] Rashida Pederson APRN PCP - Assigned PCP 10/14/14 10/18/18 TRANSFORMER MOLDER [address] [place] [address] Rashida Pederson APRN Assigned PCP 10/14/14 1 09/26/20 TRANSFORMER MOLDER [address] [place] [address] documented as of this encounter
--- OUTSIDE RECORDS SUMMARY | 2022-06-02 16:07 | XMS_ITS | Encounter Summary ---
:1985 Author Organization [facility] Address [address] [place] [address] Care Team Providers Name Role Phone Rashida Pederson APRN, CNP Primary Care Provider [phone] Rashida Pederson APRN AUTOMATIC LATHE TENDER Unavailable [phone] Rashida Pederson APRN AUTOMATIC LATHE TENDER Unavailable [phone] Reason for Visit Reason Onset Date Comments Nurse Advice Line 05/13/2016 mantoux testing Encounter Details Date Type Department Care Team Description 05/13/2016 [facility] [place] ZIYAD Benitez CNP (mantoux testing) [address] [place] [id number] [phone] Social History Tobacco Use Types Packs/Day Years Used Date Smoking Tobacco: Former Cigarettes 0.5 5 Quit : 07/19/2012 Smokeless Tobacco: Never Alcohol Use Standard Drinks/Week Comments Yes 0 (1 standard drink = 0.6 oz pure alcoho l) 1-4d 1x/wk Sex Assigned at Date Recorded Not on file documented as of this encounter Miscellaneous Notes Telephone Encounter - Inessa Bradshaw RN - 05/14/2016 10:11 AM CDT Called, informed, scheduled. Inessa Bradshaw RN Telephone Encounter - Rashida Pederson APRN CNP - 05/14/2016 9:34 AM CDT Can you please call Logan and let her know that I placed an order for the TB test, please ask her to set up a lab only appt. Since I last last her in 03/2016 for a physical I will also complete her physical exam form based on those results. Thanks, Rashida Pederson CNP Telephone Encounter - Inessa Bradshaw RN - 05/14/2016 8:36 AM CDT Routing to Rashida -- up to you what we do! Inessa Bradshaw RN Telephone Encounter - Isabel Swenson RN - 05/13/2016 6:07 PM CDT Clinic Action Needed:Yes Reason for Call: I need to get a message to my care team about my mantoux testing. 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 However, they will not do a mantoux and she is afraid thatshe won't have enough time for a two step mantoux. She is requesting that an orer for Quantiferon TBGold Test be entered that she can come into the clinic to do. She also would like to drop off paper work for Rashida to fill out. Please call to discuss further. Thank you. Routed to: [facility] Isabel Swenson RN [facility] documented in this encounter Plan of Treatment Not on filedocumented as of this encounter Results M Tuberculosis by Quantiferon (05/18/2016 1:20 PM CDT) [facility] Method Time Signature M Tuberculosis Negative NEG [facility] Result [facility] M Tuberculosis 0.00 IU/mL [facility] Antigen Value [facility] Comment: This is a qualitative test. ??The [...] (specimen) CDT PM CDT Rashida Pederson APRN AUTOMATIC LATHE TENDER LAB - BLOOD ORDERABLES Performing Organization Address City/State/ZIP Code Phon e Number [facility] [address] documented in this encounter Visit Diagnoses Diagnosis Screening for tuberculosis - Primary Screening examination for pulmonary tube rculosis documented in this encounter Additional Health Concerns Assessment Noted Time PHQ-9 Depression Total Score: 5 03/28/2016 7:13 AM CDT documented as of this encounter Care Teams Print And Pattern Designer Relationship Specialty Start Date End Date Rashida Pederson APRN PCP - General Nurse Practitioner 10/08/14 AUTOMATIC LATHE TENDER [address] [place] [address] Rashida Pederson APRN PCP - Assigned PCP 10/14/14 10/18/18 AUTOMATIC LATHE TENDER [address] [place] [address] Rashida Pederson APRN Assigned PCP 10/14/14 1 09/26/20 AUTOMATIC LATHE TENDER [address] [place] [address] documented as of this encounter
--- OUTSIDE RECORDS SUMMARY | 2022-06-02 16:07 | XMS_ITS | Encounter Summary ---
:1985 Author Organization [facility] Address [address] [place] [address] Care Team Providers Name Role Phone Rashida Pederson APRN, CNP Primary Care Provider [phone] Rashida Pederson APRN, CNP Unavailable [phone] Rashida Pederson APRN, CNP Unavailable [phone] Reason for Visit Reason Comments Depression f/u meds, depression Encounter Details Date Type Department Care Team Description 02/07/2015 Office Visit [facility] Rashida Pederson Major depr essive disorder, recurrent episode, mild (H) (Primary Dx); [facility] ZIYAD Benitez Anxiety; [address] [facility] CARDIOVASCULAR SCREENING; LDL GOAL LESS THAN [address] [place] [address] [facility] [address] [place], [place] [phone] [id number] Social History Tobacco Use Types Packs/Day Years [...] Sign Reading Time Taken Comments Blood Pressure 118/72 02/07/2015 2:58 PM CDT Pulse 72 02/07/2015 2:58 PM CDT Temperature 36.8 ??C (98.3 ??F) 02/07/2015 2:58 PM CDT Respiratory Rate 16 02/07/2015 2:58 PM CDT Oxygen Saturation - - Inhaled Oxygen Concentration - - Weight 89.8 kg (198 lb) 02/07/2015 2:58 PM CDT Height - - Body Mass Index 33.46 10/06/2014 8:10 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 Treating Anxiety Disorders with Medication Anxiety disorders cause intense feelings of fear or panic. Even physical symptoms, such as a racing heartbeat or dizziness, can be felt. If you have these feelings, you don???t have to suffer anymore. Treatment to help you overcome your fears will likely include therapy (also called counseling). Medica tion may also be prescribed to help control your symptoms. Medications Certain medications may be prescribed to help control your symptoms. As a result, you may feel less anxious. You may also feel able to move forward with therapy. At first, medications and dosages may need to be adjusted to find what works best for you. Try to be patient. Tell your doctor how a medication makes you feel. This way, you can work together to find the treatment that???s best for you. Keepin mind that medications can have side effects. Talk to your doctor about any side effects that are bothering you. Changing the dose or type of medication may help. Don???t stop taking medication on your own because it can cause symptoms to come back. ?? Anti-Anxiety Medication:??This medication relieves symptoms and helps you relax. Your healthcare provider will explain when and how to use it. It may be prescribed for use before entering situationsthat makes you anxious. Or, you may be told to take it on a regular schedule. Anti-anxiety medication may make you feel a little sleepy or ???out of it.?? Don???t drive a car or operate machinery while on this medication, until you know how it affects you. CAUTION Never use alcohol or other drugs with anti-anxiety medications. This could result in coma or . Also, use only the amount of medication your doctor prescribes. If you think you may have taken too much, get emergency care right away. ?? Antidepressant Medication:??This kind of medication is often used to treat anxiety, even if you aren???t depressed. An antidepressant balances out brain chemicals. This helps keep anxiety under control. This medication is taken on a schedule. It takes a few weeks to start working. If you don???t notice a change at first, you may just need more time. But if you don???t notice results after the first few weeks, tell your doctor. Keep Taking Medications as Prescribed Never change your dosage or stop taking your medications without talking to your doctor first. Keep the following in mind: ?? Some medications must be taken on a schedule. Make this part of your daily routine. For instance,always take your pill before brushing your teeth. A pillbox can help you remember if you???ve taken your medication each day. ?? Medications are often taken for??6-12 months. Your healthcare provider will then evaluate whetheryou need to stay on them. Many people who have also had therapy may no longer need medication to manage anxiety. ?? You may need to stop taking medication slowly to give your body time to adjust. When it???s time to stop, your doctor will tell you more. Remember: Never stop taking your medication without talking to your doctor first. ?? If symptoms return, you may need to start taking medications again. This isn???t your fault. It???s just the nature of your anxiety disorder. Special Concerns ?? Side effects:??Medications may cause side effects. Ask your doctor or pharmacist what you can expect. They may have ideas for avoiding some side effects. ?? Sexual problems:??Some antidepressants can affect your desire for sex or your ability to have an orgasm. A change in dosage or medication often solves the problem. If you have a sexual side effect that concerns you, tell your doctor. ?? Addiction:??Antidepressants are not addictive. And if you???ve never had a problem with drugs or alcohol, you likely won???t have a problem with anti- anxiety medication. But if you have history of addiction, this medication may need to be avoided. ?? [id number] [employer]. [address] [place] [address], [place] [address]. All rights reserved. This information is not intended as a substitute for professional medical care. Always follow your healthcare professional's instructions. documented in this encounter Progress Notes Rashida Pederson APRN CNP - 02/07/2015 3:26 PM CDT Answers for HPI/ROS submitted by the patient on 02/07/2015 Chronic problems general questions HPI Form If you checked off any problems, how difficult have these problems made it for you to do your work, take care of things at home, or get along with other people?: Not difficult at all PHQ9 TOTAL SCORE: 4 Diet:: Regular (no restrictions) Frequency of exercise:: 2-3 days/week Duration of exercise:: 45-60 minutes Taking medications regularly:: Yes Medication side effects:: None Additional concerns today:: No PHQ-2 Depressed: Several days, Not at all PHQ-2 Score: 1 Depression/Anxiety: Depression & Anxiety Status since last visit:: Improved Other associated symptoms of depression and anxiety:: None Significant life event:: No Current substance use:: None TOTAL SCORE: 6 Rashida Pederson APRN CNP - 02/07/2015 3:02 PM CDT SUBJECTIVE: Logan Arredondo is a 29 year old female who presents to clinic today for the following health issues: Depression and Anxiety Follow-Up ?? Status since last visit: Improved ?? Other associated symptoms:None ?? Complicating factors: ?? Significant life event: No ?? Current substance abuse: None PHQ-9 SCORE (FMG) 10/06/2014 02/07/2015 02/07/2015 Total Score 15 4 - Total Score - - 4 [place]-7 SCORE 10/06/2014 02/07/2015 Total Score 19 - Total Score - 6 PHQ-9 Hong Konger PHQ-9 Any Language GAD7 Problem list and histories reviewed & adjusted, [...] Outpatient Prescriptions Medication Sig Dispense Refill ??? escitalopram (LEXAPRO) 20 MG tablet Take 1 tablet (20 mg) by mouth daily Take 1/2 tablet (10 mg)for 1-2 weeks, then increase to 1 tablet orally daily 90 tablet 1 ??? LORazepam (ATIVAN) 0.5 MG tablet Take 1 tablet (0.5 mg) by mouth every 8 hours as needed for anxiety 30 tablet 0 ??? levonorgestrel (MIRENA) 20 MCG/24HR IUD 1 each by Intrauterine route once Allergies Allergen Reactions ??? Estrogens Patient had estrogen associated PE ??? Wellbutrin [Bupropion] Other (See Comments) seizure ROS: C: NEGATIVE for fever, chills, change in weight PSYCHIATRIC: NEGATIVE for changes in mood or affect OBJECTIVE: BP 118/72 mmHg Pulse 72 Temp(Src) 98.3 ??F (36.8 ??C) (Oral) Resp 16 Wt 198 lb (89.812 kg) ? No Body mass index is 33.47 kg/(m^2). GENERAL: healthy, alert and no distress NECK: no adenopathy, no asymmetry, masses, or scars and thyroid normal to palpation RESP: lungs clear to auscultation - no rales, rhonchi or wheezes CV: regular rate and rhythm, normal S1 S2, no S3 or S4, no murmur, click or rub, PSYCH: mentation appears normal, affect normal/bright ASSESSMENT: See below PLAN: Logan was seen today for depression. Diagnoses and associated orders for this visit: Major depressive disorder, recurrent episode, mild - escitalopram (LEXAPRO) 20 MG tablet; Take 1 tablet (20 mg) by mouth daily Anxiety - escitalopram (LEXAPRO) 20 MG tablet; Take 1 tablet (20 mg) by mouth daily Other Orders - PHQ-9 ORDER - select when completing PHQ-9 FUTURE APPOINTMENTS: - Follow-up visit in 6 months for physical exam, arrive fasting, future orders placed. Rashida Pederson APRN CNP [facility] Answers for HPI/ROS submitted by the patient on 02/07/2015 Chronic problems general questions HPI Form If you checked off any problems, how difficult have these problems made it for you to do your work, take care of things at home, or get along with other people?: Not difficult at all PHQ9 TOTAL SCORE: 4 Diet:: Regular (no restrictions) Frequency of exercise:: 2-3 days/week Duration of exercise:: 45-60 minutes Taking medications regularly:: Yes Medication side effects:: None Additional concerns today:: No PHQ-2 Depressed: Several days, Not at all PHQ-2 Score: 1 Depression/Anxiety: Depression & Anxiety Status since last visit:: Improved Other associated symptoms of depression and anxiety:: None Significant life event:: No Current substance use:: None TOTAL SCORE: 6 documented in this encounter Nursing Notes Rossana Colin CMA - 02/07/2015 3:00 PM CDT Chief Complaint Patient presents with ??? Depression f/u meds, depression Initial BP 118/72 mmHg Pulse 72 Temp(Src) 98.3 ??F (36.8 ??C) (Oral) Resp 16 Wt 198 lb (89.812 kg) ? No Estimated body mass index is 33.47 kg/(m^2) as calculated from the following: Height as of 10/06/14: 5' 4.5 (1.638 m). Weight as of this encounter: 198 lb (89.812 kg).. BP completed using cuff size large. Rossana Colin/ROSITA documented in this encounter Plan of Treatment Not on filedocumented as of this encounter Visit Diagnoses Diagnosis Major depressive disorder, recurrent epi sode, mild (H) - Primary Major depressive disorder, recurrent epi sode, mild Anxiety Anxiety state, unspecified CARDIOVASCULAR SCREENING; LDL GOAL LESS THAN 160 documented in this encounter Care Teams Hotel Front Desk Clerk Relationship Specialty Start Date End Date Rashida Pederson APRN PCP - General Nurse Practitioner 10/08/14 ECHOCARDIOGRAPHY RADIOLOGY TECHNOLOGIST [address] [place] [address] Rashida Pederson APRN PCP - Assigned PCP 10/14/14 10/18/18 ECHOCARDIOGRAPHY RADIOLOGY TECHNOLOGIST [address] [place] [address] Rashida Pederson APRN Assigned PCP 10/14/14 1 09/26/20 ECHOCARDIOGRAPHY RADIOLOGY TECHNOLOGIST [address] [place] [address] documented as of this encounter
--- OUTSIDE RECORDS SUMMARY | 2022-06-02 16:07 | XMS_ITS | Encounter Summary ---
:1985 [facility] Address [address] [place] [address] Home Phone Mobile Phone Email Address Email Address Preferred Language Kosovan Marital Status Single Sikhism Affiliation Unknown Race White Ethnic Group Unknown Author Organization [facility] Address [address] [place] [address] Care Team Providers Name Role Phone Rashida Pederson APRN SAFETY PROFESSIONAL Primary Care Provider [phone] BgRashida cornejo APRN SAFETY PROFESSIONAL Unavailable [phone] BgRashida cornejo APRN SAFETY PROFESSIONAL Unavailable [phone] Reason for Visit Reason Onset Date Comments Refill Request 08/30/2017 lexapro Encounter Details Date Type Department Care Team Description 08/30/2017 MyC Refill [facility] Tiffanie Irvin, Ref ill [facility] [address] [place] [id number] [facility] [phone] [place] [address] (Wo rk) Social History Tobacco Use Types [...] Telephone Encounter - Paula Poe RN - 08/31/2017 10:00 AM CST Refill extended, pt has appointment 09/06 [place] [facility] [place] Protocol. Paula Poe RN, BSN OR JAVA DATA ARCHITECT Telephone Encounter - Paula Poe RN - 08/31/2017 9:59 AM SENIOR JAVA DATA ARCHITECT Message from [employer]: Original authorizing provider: DO Logan Santos Dimitry Arredondo would like a refill of the following medications: escitalopram (LEXAPRO) 20 MG tablet [Tiffanie Young DO] Preferred pharmacy: [facility] [address] [facility] [address] [address] Comment: I have an appointment scheduled for September 06 but not enough of the Lexapro to get me to that date. Wondering if a refill can be made. Otherwise I can just take half tabs until then. OR JAVA DATA ARCHITECT documented in this encounter Plan of Treatment Not on filedocumented as of this encounter Visit Diagnoses Diagnosis Mild episode of recurrent major depressi ve disorder (H) Anxiety Anxiety state, unspecified documented in this encounter Additional Health Concerns Assessment Noted Time PHQ-9 Depression Total Score: 9 04/21/2017 2:17 PM CDT documented as of this encounter Care Teams Guitar Maker Hand Relationship Specialty Start Date End Date Rashida Pederson APRN PCP - General Nurse Practitioner 10/08/14 SAFETY PROFESSIONAL [address] [place] [address] Rashida Pederson APRN PCP - Assigned PCP 10/14/14 10/18/18 SAFETY PROFESSIONAL [address] [place] [address] Rashida Pederson APRN Assigned PCP 10/14/14 1 09/26/20 SAFETY PROFESSIONAL [address] [place] [address] documented as of this encounter
--- OUTSIDE RECORDS SUMMARY | 2022-06-02 16:07 | XMS_ITS | Encounter Summary ---
:1985 Author Organization [facility] Address [address] [place] [address] Care Team Providers Name Role Phone Rashida Pederson APRN, CNP Primary Care Provider [phone] Rashida Pederson APRN ACCOUNTING GENERALIST Unavailable [phone] Rashida Pederson APRN ACCOUNTING GENERALIST Unavailable [phone] Reason for Visit Reason Onset Date Comments Forms 05/18/2016 [facility] nursing program form Encounter Details Date Type Department Care Team Description 05/18/2016 Telephone [facility] Rashida Pederson Forms ([facility] ZIYAD Benitez CNP nursing program form) [address] [place] [id number] [phone] Social History Tobacco Use Types Packs/Day Years Used Date Smoking Tobacco: Former Cigarettes 0.5 5 Quit : 07/19/2012 Smokeless Tobacco: Never Alcohol Use Standard Drinks/Week Comments Yes 0 (1 standard drink = 0.6 oz pure alcoho l) 1-4d 1x/wk Sex Assigned at Date Recorded Not on file documented as of this encounter Miscellaneous Notes Telephone Encounter - Diana Ozuna - 05/20/2016 2:05 PM CDT Placed up front for picker machine operator Diana Ozuna/Family Court Counsellor Telephone Encounter - Rashida Pederson APRN CNP - 05/20/2016 12:58 PM CDT Form completed and given to TC. Rashida Pederson CNP Telephone Encounter - Vannessa Gandhi - 05/18/2016 1:23 PM CDT Logan dropped off an [facility] form to be filled out. Please call Logan when readyfor picker machine operator. documented in this encounter Plan of Treatment Not on filedocumented as of this encounter Visit Diagnoses Not on filedocumented in this encounter Additional Health Concerns Assessment Noted Time PHQ-9 Depression Total Score: 5 03/28/2016 7:13 AM CDT documented as of this encounter Care Teams Cascara Bark Cutter Relationship Specialty Start Date End Date Rashida Pederson APRN PCP - General Nurse Practitioner 10/08/14 ACCOUNTING GENERALIST [address] [place] [address] Rashida Pederson APRN PCP - Assigned PCP 10/14/14 10/18/18 ACCOUNTING GENERALIST [address] [place] [address] Rashida Pederson APRN Assigned PCP 10/14/14 1 09/26/20 ACCOUNTING GENERALIST [address] [place] [address] documented as of this encounter
--- OUTSIDE RECORDS SUMMARY | 2022-06-02 16:07 | XMS_ITS | Encounter Summary ---
:1985 Author Organization [facility] Address [address] [place] [address] Care Team Providers Name Role Phone Rashida Pederson APRN, CNP Primary Care Provider [phone] Rashida Pederson APRN MANAGER ELECTRICAL Unavailable [phone] Rashida Pederson APRN MANAGER ELECTRICAL Unavailable [phone] Reason for Visit Reason Comments Flu Shot Recheck Medication Referral Encounter Details Date Type Department Care Team Description 04/21/2017 Office Visit [facility] Rashida Pederson Anxiety (P rimary Dx); [facility] [place] ZIYAD Benitez Mild episode of recurrent ma codi depressive disorder (H); [address] [facility] Panic attack; [place] [address] [facility] Screening examination for pulmonary tube rculosis; [address] [place], [place] Need for prophylactic vaccin ation and inoculation against influenza [phone] [id number] Social History Tobacco Use Types Packs/Day Years [...] Sign Reading Time Taken Comments Blood Pressure 130/82 04/21/2017 1:05 PM CDT Pulse 90 04/21/2017 1:05 PM CDT Temperature 36.7 ??C (98 ??F) 04/21/2017 1:05 PM CDT Respiratory Rate 14 04/21/2017 1:05 PM CDT Oxygen Saturation 100% 04/21/2017 1:05 PM CDT Inhaled Oxygen Concentration - - Weight 103 kg (227 lb) 04/21/2017 1:05 PM CDT Height - - Body Mass Index 36.64 02/15/2017 10:40 AM CDT documented in this encounter Progress Notes Rashida Pederson APRN CNP - 04/25/2017 9:55 PM CDT William Ford, Your test for TB was negative. Sincerely, Rashida Pederson CNP Rashida Pederson APRN CNP - 04/22/2017 10:26 AM CDT Hi Loagn, Your TSH (thyroid level) was normal at 3.30. Sincerely, Rashida Pederson CNP Yessenia Mcgarry CMA - 04/21/2017 1:39 PM CDT Injectable Influenza Immunization Documentation 1. Is the person to be vaccinated sick today? No 2. Does the person to be vaccinated have an allergy to eggs or to a component of the vaccine? No 3. Has the person to be vaccinated today ever had a serious reaction to influenza vaccine in the past? No 4. Has the person to be vaccinated ever had Guillain-Goodland syndrome? No Form completed by Katharine Rashida Pederson APRN CNP - 04/21/2017 1:00 PM CDT SUBJECTIVE: Logan Arredondo is a 31 year old female who presents to clinic today for the following health issues: Anxiety Follow-Up ?? Status since last visit: Worsened ?? Other associated symptoms:None ?? Complicating factors: Significant life event: No Current substance abuse: None Depression symptoms: No GE[place]-7 SCORE 02/07/2015 09/17/2015 03/27/2016 Total Score - - - Total Score 6 - - Total Score - 9 3 ?? Amount of exercise or physical activity: None ?? Problems taking medications regularly: No ?? Medication side effects: none ?? Diet: no restrictions GEORGIA 7 score is 9 PHQ 9 score is 9,denies thoughts or harming self or others. Patient presents with anxiety concerns, as well as her lack of concentration ability. 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 She reports increased anxiety, especially with her boyfriend's new job as a naval aircrewman helicopter, and distracting thoughts when trying to complete course work. Although, when motivated she feels a decrease in anxiety symptoms. Patient reports achieving adequate amount of sleep,6-7 hours each night. At age 18 she tried Wellbutrin and Lexapro in later years. Wellbutrin relievedsymptoms well, but she had to discontinue due to seizures from the medication. Also, patient notes po ssibly having ADD symptoms develop during adolescent years, but was never treated. She wishes to find additional ways to help improve concentration without the use of pharmaceuticals. 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 Problem list and histories reviewed & adjusted, [...] Outpatient Prescriptions Medication Sig Dispense Refill ??? phentermine 37.5 MG capsule Take 37.5 mg by mouth every morning ??? levonorgestrel (MIRENA) 20 MCG/24HR IUD 1 each by Intrauterine route once ??? LORazepam (ATIVAN) 0.5 MG tablet Take 1 tablet (0.5 mg) by mouth every 8 hours as needed for anxiety (Patient not taking: Reported on 04/21/2017) 30 tablet 0 Allergies Allergen Reactions ??? Estrogens Patient had estrogen associated PE ??? Wellbutrin [Bupropion] Other (See Comments) seizure Reviewed and updated as needed this visit by clinical staffAllergies Reviewed and updated as needed this visit by Provider ROS: Constitutional, HEENT, cardiovascular, pulmonary, GI, , musculoskeletal, neuro, skin, endocrine and psych systems are negative, except as otherwise noted. This document serves as a record of the services and decisions personally performed and made by Rashida Pederson CNP. It was created on her behalf by Gerda Pratt, a trained medical transcriptionist. The creation of this document is based on the provider's statements to the medical transcriptionist. Gerda Pratt 1:26 PM April 21, 2017 OBJECTIVE: BP 130/82 (BP Location: Left arm, Patient Position: Chair, Cuff Size: Adult Regular) Pulse 90 Temp 98 ??F (36.7 ??C) (Oral) Resp 14 Wt 103 kg (227 lb) SpO2 100% BMI 36.64 kg/m2 Body mass index is 36.64 kg/(m^2). GENERAL: healthy, alert and no distress HENT: [...] rub, no peripheral edemaand peripheral pulses strong NEURO: Normal strength and tone, mentation intact and speech normal PSYCH: mentation appears normal, affect normal/bright ASSESSMENT/PLAN: Logan was seen today for flu shot, recheck medication and referral. 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 - TSH with free T4 reflex - escitalopram (LEXAPRO) 20 MG tablet; Take 1/2 tablet (10 mg) for 1-2 weeks, then increase to 1 tablet orally daily Discussed risks and benefits of medication, need to take on a daily basis, will take at least 2-4 weeks to notice decrease in depression or anxiety, if symptoms of depression worsen stop taking medication and notify the clinic. Is aware of emergency resources. Encouraged increased in exercise and counseling. Panic attack: Discussed will prescribe #30 once per year. - LORazepam (ATIVAN) 0.5 MG tablet; Take 1 tablet (0.5 mg) by mouth every 8 hours as needed for anxiety Screening examination for pulmonary tuberculosis - M Tuberculosis by Quantiferon Need for prophylactic vaccination and inoculation against influenza - FLU VAC, SPLIT VIRUS IM > 3 YO (QUADRIVALENT) [25294] - Vaccine Administration, Initial [88213] Other orders - DEPRESSION ACTION PLAN (DAP) The information in this document, created by the medical transcriptionist for me, accurately reflects the services I personally performed and the decisions made by me. I have reviewed and approved this document for accuracy prior to leaving the patient care area. April 21, 2017 1:33 PM Follow up in 6 months, sooner as needed. Rashida Pederson APRN CNP [facility] documented in this encounter Nursing Notes Yessenia Mcgarry CMA - 04/21/2017 1:00 PM CDT Chief Complaint Patient presents with ??? Flu Shot ??? Recheck Medication ??? Referral Initial BP 130/82 (BP Location: Left arm, Patient Position: Chair, Cuff Size: Adult Regular) Pulse90 Temp 98 ??F (36.7 ??C) (Oral) Resp 14 Wt 227 lb (103 kg) SpO2 100% BMI 36.64 kg/m2 Estimated body mass index is 36.64 kg/(m^2) as calculated from the following: Height as of 02/15/17: 5' 6 (1.676 m). Weight as of this encounter: 227 lb (103 kg). Medication Reconciliation: complete Yessenia Mcgarry CMA documented in this encounter Plan of Treatment Not on filedocumented as of this encounter Procedures Procedure Name Priority Date/Time Associated Diagnosis Comme nts M TUBERCULOSIS BY Routine 04/21/2017 1:31 PM Screening Resu lts for this QUANTIFERON CDT examination for procedure ar e in pulmonary the results tuberculosis section. TSH WITH FREE T4 Routine 04/21/2017 1:31 PM Anxiety Resul ts for this REFLEX CDT procedure are i n the results section. documented in this encounter Results TSH with free T4 reflex (04/21/2017 1:31 PM CDT) athologist Signature TSH 3.30 0.40 - 4.00 04/22/2017 [facility] mU/L 10:22 AM CDT [facility] Specimen Anatomical Collection Method Collection Time Receive d Time (Source) Location / / Volume Laterality Blood specimen 04/21/2017 1:31 PM 017 1:33 (specimen) CDT PM CDT Rashida Pederson APRN MANAGER ELECTRICAL LAB - BLOOD ORDERABLES Performing Organization Address City/State/ZIP Code Phon e Number [facility] [address] [place] [address] M Tuberculosis by Quantiferon (04/21/2017 1:31 PM CDT) Patholo gist Method Time Signature M Tuberculosis Negative NEG^Negat 04/23/2017 [facility] leila 4:01 PM CDT [facility] M Tuberculosis 0.00 IU/mL 04/23/2017 [facility] Value 4:01 PM CDT [facility] Comment: This is a qualitative test. ??The TB ant igen IU/mL value is required for documentation on certain government repo rting forms but this value should not be used to monitor disease progression o r response to therapy. Diagnosing or excluding tuberculosis dis ease, and assessing the probability of LTBI, require a combination of epidemio logical, historical, medical and diagnostic findings that should be taken into account when interpreting QuantiFERON TB results. Specimen Anatomical Collection Method Collection Time Receive d Time (Source) Location / / Volume Laterality Blood specimen 04/21/2017 1:31 PM 017 1:32 (specimen) CDT PM CDT Rashida Pederson APRN, CNP LAB - BLOOD ORDERABLES Performing Organization Address City/State/ZIP Code Phon e Number [address] documented in this encounter Visit Diagnoses Diagnosis Anxiety - Primary Anxiety state, unspecified Mild episode of recurrent major depressi ve disorder (H) Panic attack Panic disorder without agoraphobia Screening examination for pulmonary tube rculosis Need for prophylactic vaccination and in oculation against influenza documented in this encounter Additional Health Concerns Assessment Noted Time PHQ-9 Depression Total Score: 9 04/21/2017 2:17 PM CDT documented as of this encounter Care Teams Hardware Engineer Relationship Specialty Start Date End Date Rashida Pederson APRN PCP - General Nurse Practitioner 10/08/14 MANAGER ELECTRICAL [address] [place] [address] Rashida Pederson APRN PCP - Assigned PCP 10/14/14 10/18/18 MANAGER ELECTRICAL [address] [place] [address] Rashida Pederson APRN Assigned PCP 10/14/14 1 09/26/20 MANAGER ELECTRICAL [address] [place] [address] documented as of this encounter
--- OUTSIDE RECORDS SUMMARY | 2022-06-02 16:07 | XMS_ITS | Encounter Summary ---
:1985 Author Organization [facility] Address [address] [place] [address] Care Team Providers Name Role Phone Rashida Pederson APRN, CNP Primary Care Provider [phone] Rashida Pederson APRN CARPENTER INSPECTOR Unavailable [phone] Rashida Pederson APRN CARPENTER INSPECTOR Unavailable [phone] Reason for Visit Reason Onset Date Comments Patient Request 11/02/2014 double book med chec k 4:30 PM today Encounter Details Date Type Department Care Team Description 11/02[facility]2014 [facility] [place] ZIYAD Benitez CNP book med check 4:[address] [place] [address] today) [place] [address] [phone] Social History Tobacco Use Types Packs/Day Years Used Date Smoking Tobacco: Former Cigarettes 0.5 5 Quit : 07/19/2012 Smokeless Tobacco: Never Alcohol Use Standard Drinks/Week Comments Yes 0 (1 standard drink = 0.6 oz pure alcoho l) 1-4d 1x/wk Sex Assigned at Date Recorded Not on file documented as of this encounter Miscellaneous Notes Telephone Encounter - Diana Ozuna - 11/02/2014 1:19 PM CDT appt scheduled Diana Ozuna/Diesel Engine Operator Telephone Encounter - Ebony De Guzman MA - 11/02/2014 1:06 PM CDT LM for patient to call back to clinic. Telephone Encounter - Rashida Pederson CNP - 11/02/2014 11:43 AM CDT Can you tell her that I am sorry but I can not see here at that time since schedule is very full this afternoon. Would be happy to see her on Wednesday if 7 am would work? Would a phone visit work? Telephone Encounter - Jose Angel Marte RN - 11/02/2014 9:06 AM CDT Logan morin, [facility] scheduled recommended 4 week follow up with Rashida at our front desk clerk after clinic visit Oct 06. Pt requests double book with Rashida at 4:30 PM today. She was not aware she was NOT scheduled to see Rashida, [facility] energy scheduler made error. Please advise. Logan [phone] Jose Angel Marte RN documented in this encounter Plan of Treatment Not on filedocumented as of this encounter Visit Diagnoses Not on filedocumented in this encounter Care Teams First Aid Instructor Relationship Specialty Start Date End Date Rashida Pederson APRN PCP - General Nurse Practitioner 10/08/14 CARPENTER INSPECTOR [address] [place] [address] Rashida Pederson APRN PCP - Assigned PCP 10/14/14 10/18/18 CARPENTER INSPECTOR [address] [place] [address] Rashida Pederson APRN Assigned PCP 10/14/14 1 09/26/20 [facility] [address] [place] [address] documented as of this encounter
--- OUTSIDE RECORDS SUMMARY | 2022-06-02 16:07 | XMS_ITS | Encounter Summary ---
:1985 Author Organization [facility] Address [address] [place] [address] Care Team Providers Name Role Phone Rashida Pederson APRN BALING MACHINE TENDER Primary Care Provider [phone] Rashida Pederson APRN BALING MACHINE TENDER Unavailable [phone] BgRashida cornejo APRN BALING MACHINE TENDER Unavailable [phone] Reason for Visit Reason Comments Medication Question Encounter Details Date Type Department Care Team Description 07/22/2016 [facility] Concha Balderrama , [address] [id number] Medication [facility] Provider, Historical Question [address] [place] [address] Social History Tobacco Use Types [...] documented as of this encounter Care Teams Charge Accounts Audit Clerk Relationship Specialty Start Date End Date Rashida Pederson APRN PCP - General Nurse Practitioner 10/08/14 BALING MACHINE TENDER [address] [place] [address] Rashida Pederson APRN PCP - Assigned PCP 10/14/14 10/18/18 BALING MACHINE TENDER [address] [place] [address] Rashida Pederson APRN Assigned PCP 10/14/14 1 09/26/20 BALING MACHINE TENDER [address] [place] [address] documented as of this encounter
--- OUTSIDE RECORDS SUMMARY | 2022-06-02 16:07 | XMS_ITS | Encounter Summary ---
:1985 Author Organization [facility] Address [address] [place] [address] Care Team Providers Name Role Phone Rashida Pederson HIM ASSISTANT MECHANICAL LABORATORY TECHNICIAN Primary Care Provider [phone] Rashida Pederson APRN MECHANICAL LABORATORY TECHNICIAN Unavailable [phone] BgRashida cornejo APRN MECHANICAL LABORATORY TECHNICIAN Unavailable [phone] Reason for Visit Reason Onset Date Comments Panel Management 03/28/2015 Encounter Details Date Type Department Care Team Description 03/28/2015 Telephone [facility] Rashida Pederson, Panel Management [place] HIM ASSISTANT MECHANICAL LABORATORY TECHNICIAN [address] [address] [phone] (Wo rk) Social History Tobacco Use Types Packs/Day Years Used Date Smoking Tobacco: Former Cigarettes 0.5 5 Quit : 07/19/2012 Smokeless Tobacco: Never Alcohol Use Standard Drinks/Week Comments Yes 0 (1 standard drink = 0.6 oz pure alcoho l) 1-4d 1x/wk Sex Assigned at Date Recorded Not on file documented as of this encounter Miscellaneous Notes Telephone Encounter - Jessica Nj MA - 04/02/2015 10:04 AM CDT Pt. Has px in June, and does not feel like depression is getting worse, just under a lot of stress. Pt. Informed of Message to follow up. Jessica Nj CMA Telephone Encounter - Ebony De Guzman MA - 04/02/2015 9:27 AM CDT LM for patient to call back to clinic. Telephone Encounter - Rashida Pederson APRN CNP - 04/01/2015 8:12 PM CDT Can you please ask her to either return for a visit or a phone visit in the next 1-2 months if she continues to feel that her symptoms are getting worse? Thanks, Rashida Pederson CNP Addendum Note - Ilda Phillips CMA - 03/28/2015 10:26 AM CDT Addended by: ILDA PHILLIPS on: 03/28/2015 10:26 AM Modules accepted: Anuradha, SmartSet Telephone Encounter - Ilda Phillips CMA - 03/28/2015 10:23 AM CDT Pt completed depression questionnaire [facility]. Please advise, score today was higher than score on 02/07/2015. Telephone Encounter - Ilda Phillips CMA - 03/28/2015 9:11 AM CDT Panel Management Review Date of last visit with a [facility] provider: Rashida Pederson on 02/07/2015. Date of next visit with a [facility] provider: None. Problem List Patient Active Problem List Diagnosis ??? History of pulmonary embolism ??? BV (bacterial vaginosis) ??? Dysmenorrhea ??? Mirena IUD (intrauterine device) in place ??? Panic attack ??? Routine gynecological examination ??? Major depression, recurrent ??? Anxiety ??? CARDIOVASCULAR SCREENING; LDL GOAL LESS THAN 160 Health Maintenance List Health Maintenance Topic Date Due ??? INFLUENZA VACCINE (SYSTEM ASSIGNED) 04/16/2015 ??? PHQ-9 Q6 MONTHS (NO INBASKET) 08/09/2015 ??? DEPRESSION ACTION PLAN Q1 YR (NO INBASKET) 10/08/2015 ??? PAP SCREENING Q3 YR (SYSTEM ASSIGNED) 11/10/2015 ??? TETANUS IMMUNIZATION (SYSTEM ASSIGNED) 11/03/2020 For diabetic patients with hyperlipidemia, only choose diabetes. Patient has the following on her problem list: Depression / Dysthymia review PHQ-9 SCORE [place] 10/06/2014 02/07/2015 02/07/2015 Total Score 15 4 - Total Score - - 4 Patient is due for: PHQ9 Composite cancer screening Chart review shows that this patient is due/due soon for the following None PAP NIL 11/09/2012 Past Surgical History Procedure Laterality Date ??? Appendectomy 1993 Is hysterectomy listed in surgical history? No Is mastectomy listed in surgical history? No Tobacco History History Smoking status ??? Former Smoker -- 0.50 packs/day for 5 years ??? Types: Cigarettes ??? Quit date: 07/19/2012 Smokeless tobacco ??? Never Used Summary: Patient is due/failing the following: PHQ9 Action needed: Patient needs to do PHQ9. Type of outreach: Phone, spoke to patient. she was busy at work so she would like questionnaire sentto her on [employer] Questions for provider review: None Please indicate office visit, lab, MTM, or nurse appt if needed. Indicate fasting or not fasting. Ilda Phillips CMA Chart routed to Care Team . documented in this encounter Plan of Treatment Not on filedocumented as of this encounter Visit Diagnoses Diagnosis Major depression, recurrent (H) - Primar y Major depressive disorder, recurrent epi sode, unspecified documented in this encounter Care Teams Physicist Cryogenics Relationship Specialty Start Date End Date Rashida Pederson APRN PCP - General Nurse Practitioner 10/08/14 MECHANICAL LABORATORY TECHNICIAN [address] [place] [address] Rashida Pederson APRN PCP - Assigned PCP 10/14/14 10/18/18 MECHANICAL LABORATORY TECHNICIAN [address] [place] [address] Rashida Pederson APRN Assigned PCP 10/14/14 1 09/26/20 MECHANICAL LABORATORY TECHNICIAN [address] [place] [address] documented as of this encounter
--- OUTSIDE RECORDS SUMMARY | 2022-06-02 16:07 | XMS_ITS | Encounter Summary ---
:1985 Author Organization [facility] Address [address] [place] [address] Care Team Providers Name Role Phone Rashida Pederson APRN, CNP Primary Care Provider [phone] Rashida Pederson APRN ELECTRIC ARC FURNACE OPERATOR Unavailable [phone] BgRashida cornejo APRN ELECTRIC ARC FURNACE OPERATOR Unavailable [phone] Reason for Visit Reason Onset Date Comments Refill Request 05/13/2015 mary olvera Encounter Details Date Type Department Care Team Description 05/13/2015 MyC Refill [facility] Rashida Pederson Req uest ([place], [facility] ZIYAD Benitez CNP) [address] [place] [address] [phone] Social History Tobacco Use Types Packs/Day Years Used Date Smoking Tobacco: Former Cigarettes 0.5 5 Quit : 07/19/2012 Smokeless Tobacco: Never Alcohol Use Standard Drinks/Week Comments Yes 0 (1 standard drink = 0.6 oz pure alcoho l) 1-4d 1x/wk Sex Assigned at Date Recorded Not on file documented as of this encounter Miscellaneous Notes Telephone Encounter - Jose Angel Marte, RN - 05/21/2015 2:38 PM CDT Patient calls to check status. Did not receive call from clinic when Rx was faxed. She stopped in [facility] yesterday, Rx not there. We called [facility] today, verified did not receive Rx. We called in 05/14/15 lorazepam. Patient informed. Jose Angel Marte RN Telephone Encounter - Yessenia Mcgarry CMA - 05/14/2015 11:48 AM CDT faxed Telephone Encounter - Paula Poe RN - 05/13/2015 4:03 PM CDT Controlled Substance Refill Request for Lorazepam, INFORM pt when faxed Problem List Complete: No PROVIDER TO CONSIDER COMPLETION OF PROBLEM LIST AND OVERVIEW/CONTROLLED SUBSTANCE AGREEMENT Last Written Prescription Date: 10/06/14 Last Fill Quantity: 30, # refills: [address] Visit with [facility] primary care provider: 02/07/15 Future Office visit: Controlled substance agreement on file: No. Processing: Fax Rx to [facility] Paula Poe RN, BSN Message handled by Nurse Triage. FUTURE APPOINTMENTS: - Follow-up visit in 6 months for physical exam, arrive fasting, future orders placed Telephone Encounter - Paula Poe RN - 05/13/2015 4:02 PM CDT Message from Shots: Original authorizing provider: ZIYAD Moore CNP would like a refill of the following medications: LORazepam (ATIVAN) 0.5 MG tablet [Rashida Pederson APRN CNP] escitalopram (LEXAPRO) 20 MG tablet [Rashida Pederson APRN CNP] Preferred pharmacy: [address] Comment: send to [facility] documented in this encounter Plan of Treatment Not on filedocumented as of this encounter Visit Diagnoses Diagnosis Major depressive disorder, recurrent epi sode, mild (H) Major depressive disorder, recurrent epi sode, mild Anxiety Anxiety state, unspecified documented in this encounter Care Teams Education Counselor Relationship Specialty Start Date End Date Rashida Pederson APRN PCP - General Nurse Practitioner 10/08/14 ELECTRIC ARC FURNACE OPERATOR [address] [place] [address] Rashida Pederson APRN PCP - Assigned PCP 10/14/14 10/18/18 ELECTRIC ARC FURNACE OPERATOR [address] [place] [address] Rashida Pederson APRN Assigned PCP 10/14/14 1 09/26/20 ELECTRIC ARC FURNACE OPERATOR [address] [place] [address] documented as of this encounter
--- OUTSIDE RECORDS SUMMARY | 2022-06-02 16:07 | XMS_ITS | Encounter Summary ---
:1985 Author Organization [facility] Address [address] [place] [address] Care Team Providers Name Role Phone Rashida Pederson APRN GLASS MECHANIC Primary Care Provider [phone] Rashida Pederson APRN GLASS MECHANIC Unavailable [phone] Rashida Pederson APRN GLASS MECHANIC Unavailable [phone] Reason for Visit Reason Comments Physical Encounter Details Date Type Department Care Team Description 06/06/2015 Office Visit - [facility] Akiko Jones Healt h care maintenance; [facility] History of pulmonary embolism; [place] [address] Anxiety; [address] [place], [place] Need for immunization agains t influenza [place], [place] [id number] Social History Tobacco Use Types Packs/Day [...] - Inhaled Oxygen Concentration - - Weight 94.8 kg (209 lb) 06/06/2015 1:35 PM CDT Height 166.4 cm (5' 5.5) 06/06/2015 1:35 PM CDT Body Mass Index 34.25 06/06/2015 1:35 PM CDT documented in this encounter Plan of Treatment Not on filedocumented as of this encounter Procedures Procedure Name Priority Date/Time Associated Comments Diagnosis GYNECOLOGIC CYTOLOGY Routine 06/06/2015 1:46 PM R esults for this CDT procedure are i n the results section. documented in this encounter Results Gynecologic Cytology (PAP Smear) (06/06/2015 1:46 PM CDT) Component Value Ref Test Analysis Performed At [facility] Range Method Time Signature Case Report Gynecologic Cytology Report ? Case: [id number] ? 06/20/2015 HEALTH 10:04 AM MARCELO Authorizing Provider: ??Akiko Jones NP ?Ordering Provider: ? COMPUTER LAB ASSISTANT RAFFAELE AYDIN'S Ordering Location: ? [facility] ?? Collected: ? 06/06/2015 1346 ? LABORAT ORY ? Family Medicine/OB ? First Screen: ? MARV Paige (ASCP) ?? Received: ?06/07/2015 1015 ? Specimen: ?SUREPATH PAP, SCREENING, Endocervical/cervical ? Interpretation Negative for squamous intraepithelial lesion or abi gnancy 06/20/2015 [facility] 10:04 AM [facility] Result Flag Normal Normal 06/20/2015 [facility] 10:04 AM [facility] Specimen Adequacy Satisfactory for 06/20/2015 [facility] evaluation, 10:04 AM GRADY endocervical/choi [facility]IEUDONNE [facility] sformation zone LABORATORY component present Reflex Testing Yes if Abnormal 06/20/2015 [facility] 10:04 AM [facility] High Risk? No 06/20/2015 [facility] 10:04 AM [facility] Abnormal Bleeding No 06/20/2015 [facility] 10:04 AM [facility] Patient Status NA 06/20/2015 [facility] 10:04 AM [facility] IUD-Hormone 06/20/2015 [facility] Control/Hormones 10:04 AM [facility] Previous none 06/20/2015 [facility] Abnormal? 10:04 AM [facility] Cervical normal 06/20/2015 [facility] Appearance 10:04 AM [facility] COMPUTER LAB ASSISTANT [facility] Specimen Anatomical Collection Method Collection Time Receive d Time (Source) Location / / Volume Laterality Specimen of CERVIX UTERI 06/06/2015 1:46 PM 5 unknown material STRUCTURE / CDT 10:15 AM CD T (specimen) Unknown Narrative This result has an attachment that is no t available. Akiko Jones GLASS MECHANIC LAB - ALE[facility]KEON Performing Organization Address City/State/ZIP Code Phon e [place] [address] [phone] [address] [facility] documented in this encounter Visit Diagnoses Diagnosis Health care maintenance Unspecified general medical examination History of pulmonary embolism Personal history of pulmonary embolism Anxiety Anxiety state, unspecified Need for immunization against influenza Need for prophylactic vaccination and in oculation against influenza documented in this encounter Care Teams Content Development Specialist Relationship Specialty Start Date End Date Rashida Pederson APRN PCP - General Nurse Practitioner 10/08/14 [facility] [address] [place] [address] Rashida Pederson APRN PCP - Assigned PCP 10/14/14 10/18/18 [facility] [address] [place] [address] Rashida Pederson APRN Assigned PCP 10/14/14 1 09/26/20 [facility]ASS [facility]CHAN[facility] [address] [place] [address] documented as of this encounter
--- OUTSIDE RECORDS SUMMARY | 2022-06-02 16:07 | XMS_ITS | Encounter Summary ---
:1985 Author Organization [facility] Address [address] [place] [address] Care Team Providers Name Role Phone Rashida Pederson APRN CHIEF OF VITAL STATISTICS Primary Care Provider [phone] BgRashida cornejo APRN CHIEF OF VITAL STATISTICS Unavailable [phone] Bg, Rashida Benitez APRN CHIEF OF VITAL STATISTICS Unavailable [phone] Reason for Visit Reason Comments URI symptoms x 5 days. Chest con gestion, headache, productive cough with brown-yellow sputum. Encounter Details Date Type Department Care Team Description 07/21/2016 Office Visit - [facility] [place], Acute UR I; [facility] Catalina Butts PA-C History of pulmonary embolism [address] [place] [phone] [phone] Social History Tobacco Use Types Packs/Day Years [...] - Inhaled Oxygen Concentration - - Weight 110.5 kg (243 lb 8 oz) 07/21/2016 2:00 PM CARBURETOR SPECIALIST Height - - Body Mass Index 41.15 03/27/2016 9:32 AM CDT documented in this encounter Progress Notes Catalina Oden PA-C - 07/21/2016 2:00 PM CST Subjective: Logan Arredondo is a 31 y.o. female who presents for evaluation of cough. She's had chest congestion, headache, ear pain, cough for 5 days. She says sometimes her cough is quite loud and quite bad. She feels like her symptoms are overall staying the same. Sometimes she has acrackling-type feeling in her upper chest when she takes a deep breath. No fevers. She says she is leaking a bit of urine with coughing. She has taken kevn-cgi-yhfnfgv cough remedies and they have onlyhelped minimally. She has a past history of a PE. She was taking high dose control pills and smoking when the PE occurred. She also notes that she was visiting people in the hospital for an extended period, and thinks she did not move around as much as normal. She believes one or all of these factors contributed to the PE. She is not on anticoagulation right now. No other risk factors for PE presently. She is a nonsmoker. Mirena for control. Past chart records state PE occurred around age 20, followed by [facility], workup negative. Patient Active Problem List Diagnosis ??? History of pulmonary embolism Current Outpatient Prescriptions: ??? levonorgestrel (MIRENA) 20 mcg/24 hr (5 years) IUD, 1 each by Intrauterine route., Disp: , Rfl: ??? LORazepam (ATIVAN) 0.5 MG tablet, , Disp: , Rfl: ??? codeine-guaiFENesin (GUAIFENESIN AC) 10-100 mg/5 mL liquid, Take 10 mL by mouth every 6 (six) hours as needed for cough., Disp: 120 mL, Rfl: 0 ??? escitalopram oxalate (LEXAPRO) 20 MG tablet, , Disp: , Rfl: Objective: Allergies: Bupropion hcl and Estrogens Vitals: Vitals: 07/21/16 1400 BP: 116/70 Pulse: (!) 101 Temp: 99.3 ??F (37.4 ??C) SpO2: 96% Body mass index is 39.9 kg/(m^2). Vital signs reviewed. General: Patient is alert and oriented x 3, in no apparent distress Ears: TMs are non-erythematous with good light reflex bilaterally Throat: no erythema, edema or exudate noted Lymphatic: no anterior cervical lymph node enlargement Cardiac: regular rate and rhythm, no murmurs Pulmonary: lungs clear to auscultation bilaterally, no crackles, rales, rhonchi, or wheezing noted Assessment and Plan: 1. Acute URI, likely viral. Prescription sent for Cheratussin cough medicine. I reviewed possible drowsiness. I would like to avoid antibiotic use if possible, she is in agreement with this. She will call us later in the week if she is not improving. At that time, consider prednisone or antibiotic prescription. 2. History of PE. Previous records state this was at age 20. She thinks this was due to control pills, smoking, and inactivity. Now she has Mirena and is not smoking. She says that her symptoms today do not feel like when she had a PE. Exam findings and her symptoms today would not necessarily support PE finding. NO other risk factors. I reviewed signs and symptoms to contact clinic or go in to the ER. This dictation uses voice recognition software, which may contain typographical errors. URETOR SPECIALIST documented in this encounter Plan of Treatment Not on filedocumented as of this encounter Visit Diagnoses Diagnosis Acute URI Acute upper respiratory infections of un specified site History of pulmonary embolism Personal history of pulmonary embolism documented in this encounter Additional Health Concerns Assessment Noted Time PHQ-9 Depression Total Score: 5 03/28/2016 7:13 AM CDT documented as of this encounter Care Teams Underground Production Foreperson Relationship Specialty Start Date End Date Rashida Pederson APRN PCP - General Nurse Practitioner 10/08/14 [facility] [employer] [address] [place] [address] Rashida Pederson APRN PCP - Assigned PCP 10/14/14 10/18/18 [employer]ITAL STATIST[employer] [address] [facility] [place] [address] Rashida Pederson APRN Assigned PCP 10/14/14 1 09/26/20 CHIE[employer] OF VITAL STATISTICS [address] [facility] [place] [address] documented as of this encounter
--- OUTSIDE RECORDS SUMMARY | 2022-06-02 16:07 | XMS_ITS | Encounter Summary ---
:1985 Author Organization [facility] Address [address] [place] [address] Care Team Providers Name Role Phone Rashida Pederson APRN, CNP Primary Care Provider [phone] Rashida Pederson APRN FUR WEIGHER Unavailable [phone] Rashida Pederson APRN, CNP Unavailable [phone] Reason for Visit Reason Comments Recheck Medication Patient Request for Note/Letter Encounter Details Date Type Department Care Team Description 09/17/2015 Office Visit [facility] Rashida Pederson Anxiety (P rimary Dx); [facility] [place] ZIYAD Benitez CNP Major depressive disorder, recurrent epi sode, mild (H); [address] [place] [address] [place] [address] [phone] Social History Tobacco Use Types Packs/Day Years [...] Reading Time Taken Comments Blood Pressure 120/80 09/17/2015 8:34 AM RACING CAR DRIVER Pulse 64 09/17/2015 8:34 AM RACING CAR DRIVER Temperature 36.6 ??C (97.9 ??F) 09/17/2015 8:34 AM RACING CAR DRIVER Respiratory Rate 14 09/17/2015 8:34 AM RACING CAR DRIVER Oxygen Saturation - - Inhaled Oxygen Concentration - - Weight 100.7 kg (222 lb) 09/17/2015 8:34 AM RACING CAR DRIVER Height 163.8 cm (5' 4.5) 09/17/2015 8:34 AM RACING CAR DRIVER Body Mass Index 37.52 09/17/2015 8:34 AM RACING CAR DRIVER documented in this encounter Patient Instructions Patient InstructionsRashida Pederson, ZIYAD FUR WEIGHER - 09/17/2015 8:58 AM RACING CAR DRIVER Images from the original note were not included. Treating Anxiety Disorders with Medication An anxiety disorder can make you feel nervous or apprehensive,??even without a clear??reason. Certain anxiety disorders can cause intense feelings of fear or panic. You may even have??physical symptoms, such as a racing heartbeat or dizziness. If you have these feelings, you don???t have to suffer anymore. Treatment to help you overcome your fears will likely include therapy (also called counseling).Medication may also be prescribed to help control your symptoms. Medications Certain medications may be prescribed to help control your symptoms. As a result, you may feel less anxious. You may also feel able to move forward with therapy. At first, medications and dosages may need to be adjusted to find what works best for you. Try to be patient. Tell your health care providerhow a medication makes you feel. This way, you can work together to find the treatment that???s bestfor you. Keep in mind that medications can have side effects. Talk to your provider about any side effects that are bothering you. Changing the dose or type of medication may help. Don???t stop taking medication on your own because it can cause symptoms to come back. ?? Anti-anxiety medication:??This medication eases symptoms and helps you relax. Your health care provider will explain when and how to use it. It may be prescribed for use before situations that makesyou anxious. Or, you may be told to take it on a regular schedule. Anti-anxiety medication may make you feel a little sleepy or ???out of it.?? Don???t drive a car or operate machinery while on this medication, until you know how it affects you. ?? Antidepressant medication:??This kind of medication is often used to treat anxiety, even if you aren???t depressed. An antidepressant helps balance out brain chemicals. This helps keep anxiety undercontrol. This medication is taken on a schedule. It takes a few weeks to start working. If you don???t notice a change at first, you may just need more time. But if you don???t notice results after thefirst few weeks, tell your provider. Keep taking medications as prescribed Never change your dosage or stop taking your medications without talking to your health care provider first. Keep the following in mind: ?? Some medications must be taken on a schedule. Make this part of your daily routine. For instance,always take your pill before brushing your teeth. A pillbox can help you remember if you???ve taken your medication each day. ?? Medications are often taken for??6 to 12 months. Your health care provider will then evaluate whether you need to stay on them. Many people who have also had therapy may no longer need medication tomanage anxiety. ?? You may need to stop taking medication slowly to give your body time to adjust. When it???s time to stop, your health care provider will tell you more. Remember: Never stop taking your medication without talking to your provider first. ?? If symptoms return, you may need to start taking medications again. This isn???t your fault. It???s just the nature of your anxiety disorder. ?? [phone] [employer]. [address] [place] [address]. All rights reserved. This information is not intended as a substitute for professional medical care. Always follow your healthcare professional's instructions. NG CAR DRIVER documented in this encounter Progress Notes Rashida Pederson APRN CNP - 09/17/2015 8:35 AM CST SUBJECTIVE: Logan Arredondo is a 30 year old female who presents to clinic today for the following health issues: Depression and Anxiety Follow-Up ?? Status since last visit: No change ?? Other associated symptoms:None ?? Complicating factors: ?? Significant life event: No ?? Current substance abuse: None PHQ-9 SCORE 02/07/2015 03/28/2015 03/28/2015 Total Score - 7 - Total Score MyChart 4 - 7 [place]-7 SCORE 10/06/2014 02/07/2015 Total Score 19 - Total Score - 6 PHQ-9 Ugandan PHQ-9 Any Language GAD7 ?? Amount of exercise or physical activity: 1-2 day/week for an average of 45-60 minutes ?? Problems taking medications regularly: No ?? Medication side effects: none ?? Diet: regular (no restrictions) Is taking lexapro on daily basis with decrease in anxiety. Takes ativan 1 tablet rarely, last prescription was 6 months ago. Problem list and histories reviewed & adjusted, as indicated. Additional history: as documented Patient Active Problem List Diagnosis ??? History of pulmonary embolism ??? BV (bacterial vaginosis) ??? Dysmenorrhea ??? Mirena IUD (intrauterine device) in place ??? Panic attack ??? Encounter for routine gynecological examination ??? Major depression, recurrent ??? [...] 1 tablet (20 mg) by mouth daily 90 tablet 1 ??? levonorgestrel (MIRENA) 20 MCG/24HR IUD 1 each by Intrauterine route once Allergies Allergen Reactions ??? Estrogens Patient had estrogen associated PE ??? Wellbutrin [Bupropion] Other (See Comments) seizure ROS: C: NEGATIVE for fever, chills, change in weight R: NEGATIVE for cough or SOB CV: NEGATIVE for chest pain, palpitations PSYCHIATRIC: NEGATIVE for changes in mood or affect OBJECTIVE: BP 120/80 mmHg Pulse 64 Temp(Src) 97.9 ??F (36.6 ??C) (Oral) Resp 14 Ht 5' 4.5 (1.638 m) Wt 222 lb (100.699 kg) BMI 37.53 kg/m2 Body mass index is 37.53 kg/(m^2). GENERAL: healthy, alert and no distress RESP: lungs clear to auscultation - no rales, rhonchi or wheezes CV: regular rate and rhythm, normal S1 S2, PSYCH: mentation appears normal, affect normal/bright ASSESSMENT: See below PLAN: Logan was seen today for recheck medication and patient request for note/letter. Diagnoses and all orders for this visit: Anxiety Orders: - escitalopram (LEXAPRO) 20 MG tablet; Take 1 tablet (20 mg) by mouth daily - LORazepam (ATIVAN) 0.5 MG tablet; Take 1 tablet (0.5 mg) by mouth every 8 hours as needed for anxiety - Signed controlled substance agreement will need to come in for a clinic visit prior to getting anyrefills of ativan. Reviewed [place] Prescription Monitoring and has only received prescription for ativan [facility], last filled in 01/2015. Major depressive disorder, recurrent episode, mild (HCC) Orders: - escitalopram (LEXAPRO) 20 MG tablet; Take 1 tablet (20 mg) by mouth daily Other orders - DEPRESSION ACTION PLAN (DAP) FUTURE APPOINTMENTS: - Follow-up visit in 6 months, sooner as needed. Rashida Pederson APRN CNP [facility] NG CAR DRIVER documented in this encounter Nursing Notes Yessenia Mcgarry CMA - 09/17/2015 8:38 AM CST Chief Complaint Patient presents with ??? Recheck Medication ??? Patient Request for Note/Letter Initial BP 120/80 mmHg Pulse 64 Temp(Src) 97.9 ??F (36.6 ??C) (Oral) Resp 14 Ht 5' 4.5 (1.638 m) Wt 222 lb (100.699 kg) BMI 37.53 kg/m2 Estimated body mass index is 37.53 kg/(m^2) as calculated from the following: Height as of this encounter: 5' 4.5 (1.638 m). Weight as of this encounter: 222 lb (100.699 kg). BP completed using cuff size: ernestine Mcgarry CMA NG CAR DRIVER documented in this encounter Plan of Treatment Not on filedocumented as of this encounter Visit Diagnoses Diagnosis Anxiety - Primary Anxiety state, unspecified Major depressive disorder, recurrent epi sode, mild (H) Major depressive disorder, recurrent epi sode, mild Panic attack Panic disorder without agoraphobia documented in this encounter Additional Health Concerns Assessment Noted Time PHQ-9 Depression Total Score: 10 09/18/2015 9:10 AM CS T documented as of this encounter Care Teams Auto Mechanic Supervisor Relationship Specialty Start Date End Date Rashida Pederson APRN PCP - General Nurse Practitioner 10/08/14 [facility] [address] [place] [address] Rashida Pederson APRN PCP - Assigned PCP 10/14/14 10/18/18 [facility] [address] [place] [address] Rashida Pederson APRN Assigned PCP 10/14/14 1 09/26/20 [facility] [address] [place] [address] documented as of this encounter
--- OUTSIDE RECORDS SUMMARY | 2022-06-02 16:08 | XMS_ITS | Encounter Summary ---
:1985 Author Organization [facility] Address [address] [place] [address] Care Team Providers Name Role Phone Shari Mann Primary Care Provider Reason for Visit Reason Comments Vaginal Problem Possible vaginal infection Encounter Details Date Type Department Care Team Description 12/19/2012 Office Visit [facility] [place], Yeast infe [facility] Fatou Sheridan APRN the vagina (Primary [place] CN Dx) [address] [facility] [address] [place] [address] Social History Tobacco Use Types Packs/Day Years Used Date Smoking Tobacco: Former Cigarettes 0.5 5 Quit : 07/19/2012 Smokeless Tobacco: Never Alcohol Use Standard Drinks/Week Comments Yes 0 (1 standard drink = 0.6 oz pure 3-4 dr inks at a time approximately alcohol) 1-3 per month Sex Assigned at Date Recorded Not on file documented as of this encounter Last Filed Vital Signs Vital Sign Reading Time Taken Comments Blood Pressure 126/80 12/19/2012 3:20 PM CDT Pulse 84 12/19/2012 3:20 PM CDT Temperature - - Respiratory Rate - - Oxygen Saturation - - Inhaled Oxygen Concentration - - Weight 102.3 kg (225 lb 9.6 oz) 12/19/2012 3:20 PM CDT Height 163.8 cm (5' 4.5) 12/19/2012 3:20 PM CDT Body Mass Index 38.13 12/19/2012 3:20 PM CDT documented in this encounter Patient Instructions Patient InstructionsLinFatou hagen CNM - 12/19/2012 3:46 PM CDT Cool rinse with water. Use the vaginal cream every nite for 3 nites. Spread a small amount over the vulva to decrease the itching NOW. documented in this encounter Progress Notes Fatou Randhawa CNM - 12/19/2012 3:52 PM CDT SUBJECTIVE: Logan Arredondo is a 27 year old female, reports genital pruritis since lastTuesday. Thought she had BV. Reports faithful condom use with coitus. Current method of contraception is condoms and no fear STI exposure. Last PAP NIL 11/09/2012 OBJECTIVE: BP 126/80 Pulse 84 Ht 1.638 m (5' 4.5) Wt 102.331 kg (225 lb 9.6 oz) BMI 38.13 kg/m2 LMP 11/27/2012 ? No Pelvic Exam: EG/BUS: Normal genital architecture with covered with cheesy, white, abnormal secretions. Bartholin's, Urethra, [place]'s glands are normal. Office Wet prep: ph 4 ALEJA and saline findings include: packed yeast only ASSESSMENT: 1. Yeast infection of the vagina (112.1) terconazole (TERAZOL 3) 0.8 % vaginal cream, Wet Prep POCT PLAN: Orders Placed This Encounter Procedures ??? Wet Prep POCT Medication Rx today Sig ??? terconazole (TERAZOL 3) 0.8 % vaginal cream Place 1 applicator vaginally At Bedtime for 3 days. See Patient Education. Verbalized understanding and agreement with plan. 10 ' / 15 ' TT spent in C and CC Fatou Randhawa, MSN, CNM documented in this encounter Plan of Treatment Scheduled Orders Name Type Priority Associated Diagnoses Order S chedule Wet Prep POCT Point of Care Routine Yeast infection of the Ord ered: 12/19/2012 Testing vagina documented as of this encounter Visit Diagnoses Diagnosis Yeast infection of the vagina - Primary Candidiasis of vulva and vagina documented in this encounter Care Teams Centrifuge Separator Operator Relationship Specialty Start Date End Date Shari Mann PCP - General 07/12/12 10/07/14 documented as of this encounter
--- OUTSIDE RECORDS SUMMARY | 2022-06-02 16:08 | XMS_ITS | Encounter Summary ---
:1985 Author Organization [place] Address [address] [place] [address] Care Team Providers Name Role Phone Shari Mann Primary Care Provider Reason for Visit Reason Comments Abdominal Pain Abd pain comes and goes. Pos itional. light bleeding Encounter Details Date Type Department Care Team Description 11/02/2013 Office Visit [facility] Sharron Tyler I UD (intrauterine device) in place (Primary Dx); [facility] ZIYAD Bentley CNM Dysmenorrhe a [place] [address] [facility] [address] [place] [address] Social History Tobacco Use Types [...] Sign Reading Time Taken Comments Blood Pressure 141/84 11/02/2013 2:30 PM CDT Pulse 106 11/02/2013 2:30 PM CDT Temperature - - Respiratory Rate - - Oxygen Saturation - - Inhaled Oxygen Concentration - - Weight 104.8 kg (231 lb) 11/02/2013 2:30 PM CDT Height 163.8 cm (5' 4.49) 11/02/2013 2:30 PM CDT Body Mass Index 39.05 11/02/2013 2:30 PM CDT documented in this encounter Progress Notes Sharron Tyler, ABDOUL - 11/02/2013 5:24 PM CDT CC/HPI: Logan Arredondo is a 28 year old female who presents today for IUD f/u. Is intermittently/frequently experiencing lower abdominal cramping since IUD insert 07/28. Also irregular vaginal bleeding.Denies dyspareunia although is aware of cramping following intercourse. HISTORIES: Patient Active Problem List Diagnosis ??? History of pulmonary embolism ??? BV (bacterial vaginosis) ??? Dysmenorrhea ??? Mirena IUD (intrauterine device) in place ??? Panic attack Past Medical History Diagnosis Date ??? Anxiety ??? Bilateral pulmonary embolism 06/2012 ??? Menarche age 14 started OCP age 18; flows Q 35-38 (pt not certain) days (32 days when younger) lasting 4 days Past Surgical History Procedure Date ??? Appendectomy 1993 Current Outpatient Prescriptions Medication Sig ??? levonorgestrel (MIRENA) 20 MCG/24HR IUD 1 each by Intrauterine route once ??? LORazepam (ATIVAN PO) Take 0.5 mg by mouth 3 times daily as needed. ??? levonorgestrel (MIRENA) 20 MCG/24HR IUD 1 each (20 mcg) by Intrauterine route once for 1 dose ??? terconazole (TERAZOL 3) 0.8 % vaginal cream Place 1 applicator vaginally At Bedtime for 3 days. Allergies Allergen Reactions ??? Estrogens Patient had estrogen associated PE History Social History ??? Marital Status: Single Spouse Name: N/A Number of Children: N/A ??? Years of Education: N/A Occupational History ??? [employer] Works with [employer] at [employer] Social History Main Topics ??? Smoking status: Former Smoker -- 0.5 packs/day for 5 years Types: Cigarettes Quit date: 07/19/2012 ??? Smokeless tobacco: Never Used ??? Alcohol Use: Yes Comment: 3-4 drinks at a time approximately 1-3 per month ??? Drug Use: No ??? Sexually Active: Yes -- Male partner(s) Control/ Protection: Condom Other Topics Concern ??? Service No ??? Blood Transfusions No ??? Caffeine Concern No nelsy 5 cups per day at most ??? Occupational Exposure No ??? Hobby Hazards No ??? Sleep Concern No ??? Stress Concern Yes broke-up with boyfriend x 4.5 years in August, ??? Weight Concern Yes ??? Exercise Yes bike or [employer] x 30 minuites for 30 minutes 3-4 x's per week ??? Seat Belt Yes Social History Narrative ??? No narrative on file Family History Problem Relation Age of Onset ??? Heart attack Maternal Grandfather stent palcement ??? Alcohol/Drug Father biologic & adopted ??? Alcohol/Drug Mother biologic mom ??? Alzheimers Maternal Grandmother & PGF ??? Depression Father & Mother ??? Obesity Mother & MGM, PGM, PGF ??? Diabetes No family hx of ??? Hypertension No family hx of ??? Cancer No family hx of Pilot Can Router Hx: Patient's last menstrual period was 10/29/2013. Review Of Systems: C: NEGATIVE for fever, chills CV: NEGATIVE for chest pain, palpitations GI: POSITIVE for abdominal pain lower and intermittent, sometimes significant : NEGATIVE for frequency, dysuria, or hematuria M: NEGATIVE for significant arthralgias or myalgia N: NEGATIVE for weakness, dizziness or paresthesias or headache P: NEGATIVE for changes in mood or affect EXAM: BP 141/84 Pulse 106 Ht 1.638 m (5' 4.49) Wt 104.781 kg (231 lb) BMI 39.05 kg/m2 LMP 10/29/2013 Body mass index is 39.05 kg/(m^2). General - pleasant female in no acute distress. Pelvic - EG: normal female, vulva reveals no erythema or lesions. BUS: within normal limits. Vagina: well rugated, no lesions polyps or suspicious discharge. Bleeding present Cervix: no lesions, polyps discharge or CMT. IUD string present at OS. Slight CMT Uterus: firm, normal size and nontender. Slightly tender to palpation. Adnexa: not palpable ASSESSMENT/PLAN V45.51 Mirena IUD (intrauterine device) in place (primary encounter diagnosis) Comment: Plan: Chlamydia PCR (Clinic Collect), Gonorrhea PCR, Urine Culture, Pilot Can Router,Limited (Follow up [place]) [address], US STEEL TURNER Complete Transvaginal - 48864 (In Clinic), US Pelvic Complete with Transvaginal 625.3 Dysmenorrhea Comment: Plan: Pilot Can Router,Limited ([place]) [address], US STEEL TURNER Complete Transvaginal - 90452 (In Clinic), US Pelvic Complete with Transvaginal F/U depending on US results documented in this encounter Nursing Notes 11/02/2013 2:30 PM CDT >> Brian Dodd LPN [place] Nov 02, 2013 2:32 PM Patient presents with: Abdominal Pain - Abd pain comes and goes. Positional. light bleeding documented in this encounter Plan of Treatment Not on filedocumented as of this encounter Procedures Procedure Name Priority Date/Time Associated Comments Diagnosis NEISSERIA GONORRHOEAE Routine 11/02/2013 2:55 PM Mirena IUD Results for this PCR CDT (intrauterine procedure are in device) in place the results section. CHLAMYDIA TRACHOMATIS Routine 11/02/2013 2:55 PM Mirena IUD Results for this PCR CDT (intrauterine procedure are in device) in place the results section. URINE CULTURE Routine 11/02/2013 1:59 PM Mirena IUD Results for this CDT (intrauterine procedure are in device) in place the results section. documented in this encounter Results Gonorrhea PCR (11/02/2013 2:55 PM CDT) Component Value Ref Test Analysis Performed At [facility] Method Time Signature Specimen Urine [facility] Descrip MICROBIOLOGY N Gonorrhea Negative NEG [facility] PCR Negative for N. gonorrhoeae rRNA by transcripti on mediated amplification. MICROBIOLOGY A negative result by transc ription mediated amplification does not preclude the presence of N. gonorrhoeae infection because re sults are dependent on proper and adequate collection, absence of inhibitors, and suffici ent rRNA to be detected. Specimen Anatomical Collection Method Collection Time Receive d Time (Source) Location / / Volume Laterality Urine specimen 11/02/2013 2:55 PM 014 6:31 (specimen) CDT PM CDT Sharron Tyler APRN [facility] - MICRO GENERAL ORDERA BLES Performing Organization Address City/[facility]/ZIP Code Phon e Number [facility] [address] [place] [address] [facility] MICROBIOLOGY Chlamydia PCR (Clinic Collect) (11/02/2013 2:55 PM CDT) Component Value Ref Test Analysis Performed At [employer] Range Method Time Signature Specimen Urine [facility] Description MICROBIOLOGY Chlamydia Negative NEG [facility] Trachomatis Negative for C. trachomatis rRNA by oracle database consultant mediated amplification. MICROBIOLOGY PCR A negative result by transc ription mediated amplification does not preclude the presence of C. trachomatis infection because re sults are dependent on proper and adequate collection, absence of inhibitors, and suffici ent rRNA to be detected. Specimen Anatomical Collection Method Collection Time Receive d Time (Source) Location / / Volume Laterality Urine specimen 11/02/2013 2:55 PM 014 6:31 (specimen) CDT PM CDT Sharron Tyler ZI[facility] - MICRO [facility] ORDER KELLY Performing Organization Address City/[facility]/ZIP Code Phon e Number [address] [address] [facility] MICROBIOLOGY (ABNORMAL) Urine Culture (11/02/2013 1:59 PM CDT) Component Value Ref Test Analysis Performed At [employer] Range Method Time Signature Specimen Unspecified Urine [facility] Description MICROBIOLOGY Culture Micro >100,000 colonies/mL Mixed g robert negative and positive humphrey Multiple species [facility] present, probable perineal contamination. Susceptibility testing not routinely MICROBIOLOGY done 10,000 to 50,000 colonies/mL Beta hemolytic Streptococcus gr oup B Group B Streptococcus may be significant in OB patients, leal reg, it is part of the normal urogenital humphrey. Group B Streptococci a re susceptible to ampicillin, penicillin, and cefazolin, but may be erythromycin and/or c lindamycin resistant. Contact Microbiology if your patient is allergic to penicillin and you need erythromycin and/or clindamyci n testing to be performed. Clindamycin and Erythromycin are not routinely prescribed for iso lates from the urinary tract. Susceptibility testing must be requested within 5 da ys. (A) Micro Report FINAL 11/04/2013 [facility] Status MICROBIOLOGY Specimen Anatomical Collection Method Collection Time Receive d Time (Source) Location / / Volume Laterality Urine specimen URINE SPECIMEN 11/02/2013 1:59 PM 11/02 8:05 (specimen) OBTAINED BY CLEAN CDT PM CDT CATCH PROCEDURE / Unknown Sharron Tyler ZIYAD CNM LAB - MICRO GENERAL CASSY ONEAL Performing Organization Address City/State/ZIP Code Phon e Number [address] [address] [facility] MICROBIOLOGY documented in this encounter Visit Diagnoses Diagnosis Mirena IUD (intrauterine device) in plac e - Primary Presence of intrauterine contraceptive d evice Dysmenorrhea documented in this encounter Care Teams Loan Funder Relationship Specialty Start Date End Date Shari Mann PCP - General 07/12/12 10/07/14 documented as of this encounter
--- OUTSIDE RECORDS SUMMARY | 2022-06-02 16:08 | XMS_ITS | Encounter Summary ---
:1985 Author Organization [place] Address [address] [place] [address] Care Team Providers Name Role Phone Shari Mann Primary Care Provider Reason for Visit Reason Onset Date Comments Call to schedule test 10/13/2012 LM pt cannot be se en [facility] staff retreat Encounter Details Date Type Department Care Team Description 10/13/2012 Telephone [facility], Chrissy crawford Y, PAAkhilC Call to schedule test [facility] [address] [facility] [address] [facility] (LM pt cannot be seen 6th Floor, Clinic [phone] [facility] staff retreat) [place] Building [address] [place] [address] [place] [address] Social History Tobacco Use Types Packs/Day Years Used Date Smoking Tobacco: Former Cigarettes 0.5 5 Quit : 07/19/2012 Smokeless Tobacco: Never Alcohol Use Standard Drinks/Week Comments Yes 0 (1 standard drink = 0.6 oz pure alcoho l) occasionally Sex Assigned at Date Recorded Not on file documented as of this encounter Plan of Treatment Not on filedocumented as of this encounter Visit Diagnoses Not on filedocumented in this encounter Care Teams Theatre Instructor Relationship Specialty Start Date End Date Shari Mann PCP - General 07/12/12 10/07/14 documented as of this encounter
--- OUTSIDE RECORDS SUMMARY | 2022-06-02 16:08 | XMS_ITS | Encounter Summary ---
:1985 Author Organization [place] Address [address] [place] [address] Care Team Providers Name Role Phone Shari Mann Primary Care Provider Reason for Visit Reason Comments IUD Mirena IUD insertion Encounter Details Date Type Department Care Team Description 08/02/2013 Office Visit [facility] [place], Cervical o s stenosis (Primary Dx); [facility] Fatou Sheridan APRN Encounter for IUD insertion [place] [facility] [address] [facility] [address] [place] [address] Social History Tobacco Use Types [...] Sign Reading Time Taken Comments Blood Pressure 144/94 08/02/2013 2:51 PM ANESTHESIOLOGIST ASSISTANT Pulse 92 08/02/2013 2:51 PM ANESTHESIOLOGIST ASSISTANT Temperature - - Respiratory Rate - - Oxygen Saturation - - Inhaled Oxygen Concentration - - Weight 99.7 kg (219 lb 14.4 oz) 08/02/2013 2:51 PM ANESTHESIOLOGIST ASSISTANT Height 163.8 cm (5' 4.5) 08/02/2013 2:51 PM ANESTHESIOLOGIST ASSISTANT Body Mass Index 37.16 08/02/2013 2:51 PM ANESTHESIOLOGIST ASSISTANT documented in this encounter Patient Instructions Patient InstructionsFatou Randhawa CNM - 08/03/2013 4:14 PM CST I was not able to insert your IUD today as the cervical os was too tightly closed for me to pass theIUD supervisor ovens through it up into the uterus. Please rR/S appt for Wednesday with MD. In preparation for appt Wednesday, take the premeds as you did today. Please call if questions. For additional information re your IUD, please check the following Web site : [email or web address] You had a Mirena IUD placed today. It will need to be removed and/or replaced in 5 years. I gave you detailed written information re this method of contraception. Please take time to read itagain. I encourage you to file this in a safe place for future referance -- your underwear drawer may be a good spot to remember. Expect cramping and some bleeding the rest of this week. You may take warm baths, ibuprofen 600 mg every 6 hours with a snack, naproxen 500 mg every 12 hours with a snack, or acetaminophen 500 mg every4 hours for pain relief. If the pain does not respond to medication and/or increases, please let us know. I would like you also report increased bleeding that is heavier than a normal period, fever over 100degrees, chills, and/or a bad smell to you discharge. You may contact us via My Chart or by [phone] and asking to speak with a STENCILER triage nurse. The nurse will contact me for questions she is not able to answer. Thanks for trusting our providers at [facility] with your health care needs. Fatou Randhawa, MSN, CNM After the attempted Mirena IUD insert * Expect some mild cramping and vaginal bleeding/spotting for the next few days. * Take over the counter pain reliever like: 1-- Ibuprofen 600 mg every 6 hours 2 -- Naproxen 500 mg every 12 hours 3 -- or, acetaminophen 500 mg every 6 hours if advised to NOT take above meds. * You May wear a tampon or pad for bleeding. CALL [phone] to report: * Bleeding heavier than normal period or bleeding more than 2 days after the procedure. * An abnormal, bad smell to the drainage from your vagina * Fever greater than 100 degrees and/or chills THESIOLOGIST ASSISTANT documented in this encounter Progress Notes Fatou Randhawa CNM - 08/03/2013 4:02 PM CST Elliot Ford returns for Mirena IUD insertion as instructed. States she has not had coitus since her period began. PROCEDURE NOTE -- Mirena insertion. Verification of Procedure: Just before the procedure begans through verbal and active participation of team members, I verified: Initials Patient Name KSL Patient date of KSL Procedure to be performed KSL Reason for insertion: contraception. Counseling: Patient counseled on efficacy, benefits, risks, potential side effects of IUD. Insertionprocedure and risk of infection, perforation, and spontaneous expulsion reviewed. Importance of accurate string check with demo and return demo conducted to motivate string check compliance. Advised toplan removal and/or replacement of IUD in 5 years from today or when desired. Consent: Verbal consent obtained from patient. Risks, benefits of treatment, and alternate or no contraception were discussed. Patient's questions were elicited and answered. Written consent signed andscanned into medical record. Logan was pre-medicated with misoprostol and ibuprofen prior to beginning the procedure. Under sterile technique, cervix was visualized with a medium Graves speculum and prepped with Betadine solution. A sharp tooth tenaculum was placed at 2 and 10 on the anterior lip of the cervix. I was unable to pass the through the internal cervical os with the plastic sound. Attempts to pass with the2 and 3 Hegar dilators also failed. An MA was assisted for patient support in the room as she requested I continue to try. Wanting to not create a false passage with further pressure, the attempt was abandoned. EBL: Minimal Complications:Stenotic cervix. Failed IUD insertion. Logan tolerated the procedure well with pain reported 9 of 10 and 2 of 10 at visit end. ASSESSMENT: 1. Cervical os stenosis (622.4) INSERTION INTRAUTERINE DEVICE -- failed 2. Encounter for IUD insertion (V25.11) INSERTION INTRAUTERINE DEVICE -- failed PLAN: Consult with Dr. Avendano. Have patient return for US guided insertion with paracervical block by MD on Wednesday. Repeat premeds including misoprostol as done today. Discussed plan with Logan who agrees topostpone attempt and return. Fatou Randhawa, MSN, CNM THESIOLOGIST ASSISTANT documented in this encounter Nursing Notes 08/02/2013 3:00 PM CST >> SEE ROSITA AVILA Wed Aug 02, 2013 2:52 PM Patient presents with: IUD - Mirena IUD insertion documented in this encounter Plan of Treatment Not on filedocumented as of this encounter Procedures Procedure Name Priority Date/Time Associated Diagnosis Comme nts HC INSERTION Routine 08/03/2013 4:13 PM Cervical os s tenosis INTRAUTERINE DEVICE ANESTHESIOLOGIST ASSISTANT Encounter for IUD insertion documented in this encounter Visit Diagnoses Diagnosis Cervical os stenosis - Primary Stricture and stenosis of cervix Encounter for IUD insertion Encounter for insertion of intrauterine contraceptive device documented in this encounter Care Teams Last Inserter Relationship Specialty Start Date End Date Shari Mann PCP - General 07/12/12 10/07/14 documented as of this encounter
--- OUTSIDE RECORDS SUMMARY | 2022-06-02 16:08 | XMS_ITS | Encounter Summary ---
:1985 Author Organization [place] Address [address] [place] [address] Care Team Providers Name Role Phone Shari Mann Primary Care Provider Reason for Visit Reason Comments Abdominal Pain Low, possibly assoicated wit h IUD Encounter Details Date Type Department Care Team Description 04/02/2014 Office Visit [facility] Tone Yessenia Pelvic pain (Primary Clinic [place]) [address] [phone] [facility] [address] [place], [place] [address] Social History Tobacco Use Types Packs/Day Years [...] Reading Time Taken Comments Blood Pressure 118/72 04/02/2014 11:32 AM CDT Pulse 64 04/02/2014 11:32 AM CDT Temperature 37.1 ??C (98.7 ??F) 04/02/2014 11:32 AM CDT Respiratory Rate 12 04/02/2014 11:32 AM CDT Oxygen Saturation - - Inhaled Oxygen Concentration - - Weight 106.4 kg (234 lb 9.6 oz) 04/02/2014 11:32 AM CDT Height - - Body Mass Index 39.65 12/18/2013 3:29 PM CDT documented in this encounter Progress Notes Yessenia Wayne PA-C - 04/02/2014 11:28 AM CDT SUBJECTIVE: Logan Arredondo is a 28 year old female who presents to clinic today for the following health issues: ABDOMINAL PAIN ?? Onset: x 1 week Had a Mirena placed 08/2013 - has had intermittent cramping since IUD placed - pt has followed with Work Order Detailer and they reassured her. Pt has had a UA showing Group B strep that was not treated since this was expected to resolve. Pt also has a cyst shown on previous ultrasound. Denies concern for STD exposurebut ok with Yomi/Ch. Pelvic pain is intermittent but daily. Unchanged since onset. Moderate benefit ibuprofen with 800mg.Pt denies any current polyuria. Has noticed some white vaginal discharge. Pt had intercourse with mild discomfort. Pt has IBS - has normal fluctuation to having diarrhea once in 24 hrs. Pt thinks that a BM does aggravate her ssx. Denies hx of ab surgeries except appy. Pt had a PE in 2011 - pt was smoking and on a high strength OCP. ?? Description: Character: Cramping Location: pelvic region Radiation: Hips and upper legs ?? Intensity: moderate, can get severe ?? Progression of Symptoms: same intermittent ?? Accompanying Signs & Symptoms: Fever/Chills: no Gas/Bloating: no Nausea: no Vomitting: no Diarrhea: YES Dysuria or Hematuria: no ?? History: Trauma: no Previous similar pain: YES Previous tests done: UA/UC, came back normal ?? Precipitating factors: Does the pain change with: Food: no BM: YES, gets worse. Urination: YES- when bladder is full, pain gets aggrivated ?? Alleviating factors: Ibuprofen ?? Therapies Tried and outcome: NSAIDS Help ?? LMP: not applicable Problem list and histories reviewed & adjusted, as indicated. Additional history: as documented Patient Active Problem List Diagnosis ??? History of pulmonary embolism ??? BV (bacterial vaginosis) ??? Dysmenorrhea ??? Mirena IUD (intrauterine device) in place ??? Panic attack ??? Routine gynecological examination Past Surgical History Procedure Laterality Date ??? [...] 1 each by Intrauterine route once ??? levonorgestrel (MIRENA) 20 MCG/24HR IUD 1 each (20 mcg) by Intrauterine route once for 1 dose 1 each 0 Allergies Allergen Reactions ??? Estrogens Patient had estrogen associated PE BP Readings from Last 3 Encounters: 04/02/14 118/72 12/18/13 127/86 11/02/13 141/84 Wt Readings from Last 3 Encounters: 04/02/14 234 lb 9.6 oz (106.414 kg) 12/18/13 227 lb 6.4 oz (103.148 kg) 11/02/13 231 lb (104.781 kg) Labs reviewed in [facility] Problem list, Medication list, Allergies, and Medical/Social/Surgical histories reviewed in [facility] andupdated as appropriate. Review Of Systems Skin: negative Eyes: negative Ears/Nose/Throat: negative Respiratory: No shortness of breath, dyspnea on exertion, cough, or hemoptysis Cardiovascular: negative Gastrointestinal: negative Genitourinary: pelvic pain Musculoskeletal: negative Neurologic: negative Psychiatric: negative Hematologic/Lymphatic/Immunologic: negative Endocrine: negative Exam: Constitutional: healthy, alert and no distress Gastrointestinal: Abdomen soft, mild lower pelvic tenderness. BS normal. No masses, organomegaly, noCVA tenderness : normal vaginal tissue, no lesions, no discharge, no odor, no CMT, IUD strings in plac Musculoskeletal: extremities normal- no gross deformities noted, gait normal and normal muscle tone Skin: no suspicious lesions or rashes Neurologic: Gait normal. Psychiatric: mentation appears normal and affect normal/bright I/P: ([id number]) Pelvic pain (primary encounter diagnosis) Comment: discussed ultrasound and removal of IUD - pt would like to f/u with Work Order Detailer to discuss, reassured about normal labs today, GC still pending Plan: *UA reflex to Microscopic and Culture, Wet prep, NEISSERIA GONORRHOEA PCR, CHLAMYDIA TRACHOMATIS PCR, CBC with platelets documented in this encounter Nursing Notes Temitope Fontenot - 04/02/2014 11:36 AM CDT Chief Complaint Patient presents with ??? Abdominal Pain Low, possibly assoicated with IUD Initial BP 118/72 Pulse 64 Temp(Src) 98.7 ??F (37.1 ??C) (Oral) Resp 12 Wt 234 lb 9.6 oz (106.414 kg) BMI 39.66 kg/m2 Estimated body mass index is 39.66 kg/(m^2) as calculated from the following: Height as of 12/18/13: 5' 4.5 (1.638 m). Weight as of this encounter: 234 lb 9.6 oz (106.414 kg). BP completed using cuff size large Right Arm Health Maintenance reviewed - Yes: (UTD) Tobacco Verified: Yes Family History Updated: Yes Immunizations Up to Date: Yes SMA Rosenda documented in this encounter Plan of Treatment Not on filedocumented as of this encounter Procedures Procedure Name Priority Date/Time Associated Comments Diagnosis UA MACROSCOPIC WITH STAT 04/02/2014 11:59 Pelvic pain Resu lts for this REFLEX TO MICROSCOPIC AM CDT proced ure are in AND CULTURE the results section. CBC WITH PLATELETS STAT 04/02/2014 11:59 Pelvic pain Resul ts for this AM CDT procedure are i n the results section. WET PREPARATION STAT 04/02/2014 11:55 Pelvic pain Results for this AM CDT procedure are i n the results section. NEISSERIA GONORRHOEAE Routine 04/02/2014 11:55 Pelvic pain Re sults for this PCR AM CDT procedure are i n the results section. CHLAMYDIA TRACHOMATIS Routine 04/02/2014 11:55 Pelvic pain Re sults for this PCR AM CDT procedure are i n the results section. documented in this encounter Results CBC with platelets (04/02/2014 11:59 AM CDT) athologist Signature WBC 9.5 4.0 - 11.0 [place] 10e9/L [facility] RBC Count 4.30 3.8 - 5.2 [place] 10e12/L [facility] Hemoglobin 13.2 11.7 - [place] 15.7 g/dL [facility] Hematocrit 39.7 35.0 - [place] 47.0 % [facility] MCV 92 78 - 100 [place] fl [facility] MCH 30.7 26.5 - [place] 33.0 pg [facility] MCHC 33.2 31.5 - [place] 36.5 g/dL [facility] RDW 12.1 10.0 - [place] 15.0 % [facility] Platelet Count 214 150 - 450 [place] 10e9/L [facility] Specimen Anatomical Collection Method Collection Time Receive d Time (Source) Location / / Volume Laterality Blood specimen 04/02/2014 11:59 4 (specimen) AM CDT 12:02 PM CDT Yessenia Wayne PA-C LAB - BLOOD ORDERABLES Performing Organization Address City/State/ZIP Code Phon e Number [facility] [address] [place], [place] [id number] (ABNORMAL) *UA reflex to Microscopic and Culture (04/02/2014 11:59 AM CDT) [facility] gist Method Time Signature Color Urine Yellow [facility] Appearance Urine Clear [facility] Glucose Urine Negative NEG mg/dL [facility] Bilirubin Urine Negative NEG [facility] Ketones Urine Negative NEG mg/dL [facility] Specific Ward 1.020 1.003 - [place] Urine 1.035 [facility] Blood Urine Negative NEG [facility] pH Urine 8.0 (H) 5.0 - 7.0 [place] pH [facility] Protein Albumin Negative NEG mg/dL [place] Urine [facility] Urobilinogen 0.2 0.2 - 1.0 [place] Urine EU/dL [facility] Nitrite Urine Negative NEG [facility] Leukocyte Negative NEG [place] Esterase Urine [facility] Source Midstream [place] Urine [facility] Specimen Anatomical Collection Method Collection Time Receive d Time (Source) Location / / Volume Laterality Urine specimen 04/02/2014 11:59 4 (specimen) AM CDT 12:02 PM CDT Yessenia Wayne PA-C LAB - URINE ORDERABLES Performing Organization Address City/[facility]/ZIP Code Phon e Number [facility] [phone] [place] [address] CHLAMYDIA TRACHOMATIS PCR (04/02/2014 11:55 AM CDT) Component Value Ref Test Analysis Performed At [employer] [employer] Range Method Time Signature Specimen Cervix [facility] Chlamydia Negative NEG [facility] Trachomatis Negative for C. trachomatis rRNA by hybrid car mechanic mediated amplification. MICROBIOLOGY PCR A negative result by transc ription mediated amplification does not preclude the presence of C. trachomatis infection because re sults are dependent on proper and adequate collection, absence of inhibitors, and suffici ent rRNA to be detected. Specimen Anatomical Collection Method Collection Time Receive d Time (Source) Location / / Volume Laterality Cervical swab 04/02/2014 11:55 04/02/2014 (specimen) AM CDT 12:01 PM CDT Yessenia Wayne PA-C LAB - MICRO GENERAL ORDERA BLES Performing Organization Address City/State/ZIP Code Phon e Number [id number] [place] [phone] [place] [address] [facility] MICROBIOLOGY NEISSERIA GONORRHOEA PCR (04/02/2014 11:55 AM CDT) Component Value Ref Test Analysis Performed At [facility] Method Time Signature Specimen Cervix [facility] N Gonorrhea Negative NEG [facility] PCR Negative [...] (Source) Location / / Volume Laterality Cervical swab 04/02/2014 11:55 04/02/2014 (specimen) AM CDT 12:01 PM CDT Yessenia Wayne PA-C LAB - MICRO GENERAL CASSY ONEAL Performing Organization Address City/State/ZIP Code Phon e Number [facility] [address] [place] [address] [facility] [id number] [place] [address] [facility] MICROBIOLOGY Wet prep (04/02/2014 11:55 AM CDT) [facility] Method Time Signature Specimen Vagina [place] Description [facility] Wet Prep No Trichomonas seen [place] No clue cells seen [facility] No yeast seen [facility] Micro Report FINAL [place] Status 04/02/2014 [facility] Specimen Anatomical Collection Method Collection Time Receive d Time (Source) Location / / Volume Laterality 04/02/2014 11:55 04/02/2014 AM CDT 12:00 PM CDT Yessenia Wayne PA-C LAB - MICRO GENERAL CASSY ONEAL Performing Organization Address City/[facility]/ZIP Code Phon e Number [facility] [phone] [place] [address] documented in this encounter Visit Diagnoses Diagnosis Pelvic pain - Primary Unspecified symptom associated with fema le genital organs documented in this encounter Care Teams Cash Application Clerk Relationship Specialty Start Date End Date Shari Mann PCP - General 07/12/12 10/07/14 documented as of this encounter
--- OUTSIDE RECORDS SUMMARY | 2022-06-02 16:08 | XMS_ITS | Encounter Summary ---
:1985 Author Organization [place] Address [address] [place] [address] Care Team Providers Name Role Phone Shari Mann Primary Care Provider Encounter Details Date Type Department Care Team Description 10/25/2012 Orders Only [facility] Betito Vincent PA-C PE (pulmonary [address] embo lism) (H) Laboratory [address] [place] [phone] (Wo rk) Social History Tobacco Use Types [...] Name Priority Date/Time Associated Diagnosis Comme nts INR Routine 10/25/2012 12:44 PM PE (pulmonary Results for this CDT embolism) (H) procedure are in the results section . documented in this encounter Results (ABNORMAL) INR (10/25/2012 12:44 PM CDT) athologist Signature INR 2.32 (H) 0.86 - 1.14 [facility] LABS Specimen Anatomical Collection Method Collection Time Receive d Time (Source) Location / / Volume Laterality Blood specimen 10/25/2012 12:44 3 (specimen) PM CDT 12:45 PM CDT Patricia Moe APRN PSYCHIATRIC AIDE LAB - BLOOD ORDERABLES Performing Organization Address City/State/ZIP Code Phon e Number [facility] [address] LABS documented in this encounter Visit Diagnoses Diagnosis PE (pulmonary embolism) Other pulmonary embolism and infarction documented in this encounter Care Teams Marketing And Promotions Manager Relationship Specialty Start Date End Date Shari Mann PCP - General 07/12/12 10/07/14 documented as of this encounter
--- OUTSIDE RECORDS SUMMARY | 2022-06-02 16:08 | XMS_ITS | Encounter Summary ---
:1985 Author Organization [place] Address [address] [place] [address] Care Team Providers Name Role Phone Shari Mann Primary Care Provider Reason for Visit Reason Onset Date Comments Refill Request 08/21/2014 ativan Encounter Details Date Type Department Care Team Description 08/21/2014 Refill [facility] Women's Nurse, p Whs Refill Request (ativan) Clinic [address] Professional BlFormerly [facility] [address] [place], [place] [phone] Social History Tobacco Use Types Packs/Day Years Used Date Smoking Tobacco: Former Cigarettes 0.5 5 Quit : 07/19/2012 Smokeless Tobacco: Never Alcohol Use Standard Drinks/Week Comments Yes 0 (1 standard drink = 0.6 oz pure alcoho l) 1-4d 1x/wk Sex Assigned at Date Recorded Not on file documented as of this encounter Miscellaneous Notes Telephone Encounter - Fallon Ramon RN - 08/21/2014 11:36 AM CST Received request for change in pharmacy for medication. Change made and med called in. SITION REPORTER documented in this encounter Plan of Treatment Not on filedocumented as of this encounter Visit Diagnoses Diagnosis Panic attacks - Primary Panic disorder without agoraphobia documented in this encounter Care Teams Fire Battalion Chief Relationship Specialty Start Date End Date Shari Mann PCP - General 07/12/12 10/07/14 documented as of this encounter
--- OUTSIDE RECORDS SUMMARY | 2022-06-02 16:08 | XMS_ITS | Encounter Summary ---
:1985 Author Organization [place] Address [address] [place] [address] Care Team Providers Name Role Phone Shari Mann Primary Care Provider BgRashida APRN [employer] SOCIAL STUDIES TEACHER Primary Care Provider [phone] BgRashida APRN [employer] STUDIES TEACHER Unavailable [phone] BgRashida cornejo APRN [employer] SOC[employer] STUDIES TEACHER Unavailable [phone] Paty Lewis CNM Unavailable [phone] Reason for Visit Reason Onset Date Comments Refill Request 04/25/2014 Encounter Details Date Type Department Care Team Description 04/25/2014 Marcelle Refill [facility] Women's Lizzette Randhawa S, Refill Request Clinic [facility] CN [address] [facility] Professional Bldg [facility] [address] [place] [phone] Social History Tobacco Use Types Packs/Day [...] on filedocumented in this encounter Care Teams Pediatric Oncologist Relationship Specialty Start Date End Date Shari Mann PCP - General 07/12/12 10/07/14 Rashida Pederson, PCP - General Nurse Practitioner 10/08/14 WHEEL MOLDER 7[employer] SOCIAL STUDIES TEACHER [address] [place], [place] [phone] Rashida Pederson, PCP - Assigned PCP 10/14/14 10/18/18 WHEEL MOLDER [employer] SOC[employer] STUDIES TEACHER [address] [place] [address] Rashida Pederson, Assigned PCP 10/14/14 WHEEL MOLDER [employer] SOCIAL STUDIES TEACHER [address] [place], [place] [phone] Paty Lewis Assigned OBGYN Provider 02/28/21 12/13/21 ABDOUL Mcgee [address] [id number] documented as of this encounter
--- OUTSIDE RECORDS SUMMARY | 2022-06-02 16:08 | XMS_ITS | Encounter Summary ---
:1985 Author Organization [place] Address [facility] [place] [address] Care Team Providers Name Role Phone Shari Mann Primary Care Provider Reason for Visit Reason Onset Date Comments Results 11/03/2013 Encounter Details Date Type Department Care Team Description 11/03/2013 Telephone [facility] Women's Sharron Tyler, Results Clinic [facility] [address] [facility] Professional Bldg [facility] [address] [place] [phone] Social History Tobacco Use Types Packs/Day [...] this encounter Miscellaneous Notes Telephone Encounter - Sharron Tyler CNM - 11/03/2013 3:32 PM CDT Telephone message left for Logan with normal US results.IUD is placed correctly with normal uterus, tubes and ovaries. Mirena IUD in place with lower abdominal pain present since insertion. 1 week keflex treatment offered due to possibility of subclinical endometritis. documented in this encounter Plan of Treatment Not on filedocumented as of this encounter Visit Diagnoses Diagnosis Mirena IUD (intrauterine device) in plac e - Primary Presence of intrauterine contraceptive d evice Abdominal pain, other specified site documented in this encounter Care Teams Linoleum Tile Floor Layer Relationship Specialty Start Date End Date Shari Mann PCP - General 07/12/12 10/07/14 documented as of this encounter
--- OUTSIDE RECORDS SUMMARY | 2022-06-02 16:08 | XMS_ITS | Encounter Summary ---
:1985 Author Organization [place] Address [facility] [place] [address] Care Team Providers Name Role Phone Shari Mann Primary Care Provider Reason for Visit Reason Onset Date Comments Refill Request 10/16/2013 Lorazepam Encounter Details Date Type Department Care Team Description 10/16/2013 Telephone [facility] Women's Nurse, p Whs Refill Request Clinic [place] (Lorazepam) [address] [facility] Professional Bldg [facility] [address] [place] [address] Social History Tobacco Use Types [...] this encounter Miscellaneous Notes Telephone Encounter - Flower Chacko RN - 10/16/2013 12:09 PM CST Phone call to Logan re: request for Lorazepam refill. This has never been prescribed by our providersand Logan states that her previous provider Shari Mann NP at [facility] had prescribed it for her occasional anxiety attacks. When she was last seen by Kirti Ford states that she had asked if Kirti would be comfortable refilling this medication for her and she agreed. Logan states that she has 5 pills left and only uses them occasionally and should be fine until Kirti returns at the end of the month unless another staff would be willing to refill. [facility]. ERSHIP PROGRAM ASSOCIATE Telephone Encounter - Flower Chacko RN - 10/16/2013 12:07 PM CST Message copied by FLOWER CHACKO on WedOct 16, 2013 12:07 PM ------ Message from: MAIA SUN Created: WedOct 16, 2013 11:43 AM Regarding: Pt is requesting a new Rx for Lorazepam Contact: Pt is requesting a new Rx for Lorazepam to be [facility] to the [facility] in [place] [facility] [address]. Please call pt once Rx is sent. Ok to leave a message. Thanks! Maia Campbell ERSHIP PROGRAM ASSOCIATE documented in this encounter Plan of Treatment Not on filedocumented as of this encounter Visit Diagnoses Not on filedocumented in this encounter Care Teams Sales Associate Fishing Relationship Specialty Start Date End Date Shari Mann PCP - General 07/12/12 10/07/14 documented as of this encounter
--- OUTSIDE RECORDS SUMMARY | 2022-06-02 16:08 | XMS_ITS | Encounter Summary ---
:1985 Author Organization [place] Address [facility] [place] [address] Care Team Providers Name Role Phone Shari Mann Primary Care Provider Reason for Visit Reason Onset Date Comments Medication Request 12/06/2013 lorazapam Encounter Details Date Type Department Care Team Description 12/06/2013 Telephone [facility] Women's Nurse, p [facility] Medication Request Clinic [place] (lorazapam) [address] [facility] Professional Bldg [facility] [address] [place] [address] Social History Tobacco Use Types [...] this encounter Miscellaneous Notes Telephone Encounter - Princess Whaley RN - 12/07/2013 1:05 PM CDT Patient notified of Kirti Randhawa's instructions. Patient scheduled annual exam. Prescription called into [facility] [place]. Telephone Encounter - Fatou Randhawa CNM - 12/06/2013 7:56 PM CDT Please let her know that her ANNUAL OBSTETRICS GYNECOLOGY MD exam is due. I see that she was seen for bleeding with her Mirena and it doesn't look like she was reminded about preventive care due. Yes, I do remember talking with her and I have entered an order for Lorazepam as requested w/o a refill until we see her for her annual and discuss the frequency of use. I doubt she has used much, but there is no way to tell from this EMR record. Please call it in. Thanks, so much for checking with me! Fatou Randhawa, MSN, CNM Telephone Encounter - Princess Whaley, RN - 12/06/2013 5:06 PM CDT Patient is requesting a new prescription for lorazepam. Patient states that she has discussed this with Kirti Randhawa, and Kirti agreed at an office visit to write this prescription for her. Patient's prescription is lorazepam 0.5 mg TID as needed. Routed to Kirti Randhawa. Telephone Encounter - Princess Whaley, RN - 12/06/2013 5:05 PM CDT Message copied by PRINCESS WHALEY on WedDec 06, 2013 5:05 PM ------ Message from: TIFFANIE ISAACS Created: WedDec 06, 2013 8:53 AM Regarding: Lorazepam Contact: Pt stated she called yesterday regarding a prescription for lorazepam. She works for [employer] and because of the insurance change this year, she is no longer able to see the provider that was prescribing her the lorazepam, and Fatou Randhawa stated she would take over the medication for her. She'd likea call to see if that's still possible, and where in the process her request is. You can call her [phone] before noon, and the number above after. Tiffanie Pino ------ Telephone Encounter - Princess Whaley, RN - 12/06/2013 4:59 PM CDT Message copied by PRINCESS WHALEY on WedDec 06, 2013 4:59 PM ------ Message from: KELVIN OSORIO Created: WedDec 05, 2013 1:08 PM Regarding: Rx auth - Fatou Randhawa Contact: Pt called stating that her last appt with Kirti Randhawa, she said that she will take over signingher Rx for Lorazapam. Pt called pharmacy and the script still needs to be signed by Fatou Randhawa in order to be given. Pt wanted to make sure it goes to [facility] in [place]. Pt can be reached at [phone] Thank you HTN Please DO NOT send this message and/or reply back to sender. Call Center Representatives DO NOT respond to messages. ------ documented in this encounter Plan of Treatment Not on filedocumented as of this encounter Visit Diagnoses Diagnosis Panic attacks - Primary Panic disorder without agoraphobia documented in this encounter Care Teams Tank Terminal Gauger Relationship Specialty Start Date End Date Shari Mann PCP - General 07/12/12 10/07/14 documented as of this encounter
--- OUTSIDE RECORDS SUMMARY | 2022-06-02 16:08 | XMS_ITS | Encounter Summary ---
:1985 Author Organization [place] Address [address] [place] [address] Care Team Providers Name Role Phone Shari Mann Primary Care Provider Reason for Visit Reason Onset Date Comments Erroneous encounter-disregard Erroneous encounter-disregard 09/11/2013 Encounter Details Date Type Department Care Team Description 09/11/2013 Orders Only [facility] Fatou Randhawa [facility] S, BENEFITS ANALYST ABDOUL ENCOUNTER--SARAH MISHRA [place] (Primary Dx) [address] [place] [facility] [address] [place] [address] Social History Tobacco Use Types Packs/Day Years Used Date Smoking Tobacco: Former Cigarettes 0.5 5 Quit : 07/19/2012 Smokeless Tobacco: Never Alcohol Use Standard Drinks/Week Comments Yes 0 (1 standard drink = 0.6 oz pure 3-4 dr inks at a time approximately alcohol) 1-3 per month Sex Assigned at Date Recorded Not on file documented as of this encounter Progress Notes Fatou Randhawa CNM - 09/11/2013 10:14 AM CST This encounter was opened in error. Please disregard. ITAL ADMITTING CLERK documented in this encounter Plan of Treatment Not on filedocumented as of this encounter Visit Diagnoses Diagnosis ERRONEOUS ENCOUNTER--DISREGARD - Primary documented in this encounter Care Teams Downstairs Maid Relationship Specialty Start Date End Date Shari Mann PCP - General 07/12/12 10/07/14 documented as of this encounter
--- OUTSIDE RECORDS SUMMARY | 2022-06-02 16:08 | XMS_ITS | Encounter Summary ---
:1985 Author Organization [place] Address [address] [place] [address] Care Team Providers Name Role Phone Shari Mann Primary Care Provider Bg, Rashida Benitez APRN ALTERATIONS MANAGER Primary Care Provider [phone] BgRashida APRN ALTERATIONS MANAGER Unavailable [phone] BgRashida cornejo APRN ALTERATIONS MANAGER Unavailable [phone] Paty Lewis CNM Unavailable [phone] Reason for Visit Reason Onset Date Comments Refill Request 08/01/2014 Ativan Encounter Details Date Type Department Care Team Description 08/01/2014 MyC Refill M [facility] Fatou Randhawai ll Request [facility] SZIYAD CNM (Ativan) [place] [address] [facility] Professional Bldg [facility] [address] [place] [address] Social History Tobacco Use Types Packs/Day Years Used Date Smoking Tobacco: Former Cigarettes 0.5 5 Quit : 07/19/2012 Smokeless Tobacco: Never Alcohol Use Standard Drinks/Week Comments Yes 0 (1 standard drink = 0.6 oz pure alcoho l) 1-4d 1x/wk Sex Assigned at Date Recorded Not on file documented as of this encounter Miscellaneous Notes Telephone Encounter - Callie Harvey, RN - 08/02/2014 1:53 PM CHARGING CAR OPERATOR Message from [employer]: Original authorizing provider: ABDOUL Calvillo Madhavkasi would like a refill of the following medications: LORazepam (ATIVAN) 0.5 MG tablet [Fatou Randhawa CNM] Preferred pharmacy: [address] Comment: its about that time again, I have about 10 left. GING CAR OPERATOR documented in this encounter Plan of Treatment Not on filedocumented as of this encounter Visit Diagnoses Diagnosis Panic attacks Panic disorder without agoraphobia documented in this encounter Care Teams Invoice Classification Clerk Relationship Specialty Start Date End Date Shari Mann PCP - General 07/12/12 10/07/14 Rashida Pederson, PCP - General Nurse Practitioner 10/08/14 WIRELESS FIELD TECHNICIAN ALTERATIONS MANAGER [address] [place] [address] Rashida Pederson, PCP - Assigned PCP 10/14/14 10/18/18 WIRELESS FIELD TECHNICIAN ALTERATIONS MANAGER [address] [place] [address] Rashida Pederson, Assigned PCP 10/14/14 WIRELESS FIELD TECHNICIAN ALTERATIONS MANAGER [address] [place] [address] Paty Lewis Assigned OBGYN Provider 02/28/21 12/13/[address] [place] [address] [address] documented as of this encounter
--- OUTSIDE RECORDS SUMMARY | 2022-06-02 16:08 | XMS_ITS | Encounter Summary ---
:1985 Author Organization [place] Address [address] [place] [address] Care Team Providers Name Role Phone Shari Mann Primary Care Provider Reason for Visit Reason Comments IUD Mirena IUD check Encounter Details Date Type Department Care Team Description 09/11/2013 Office Visit [facility] [place], Mirena IUD (intrauterine device) in place (Primary Dx); [facility] Fatou Sheridan APRN Dysmenorrh ea; Griffith CN History of pulmonary embolis m; [address] Panic attack [place] [facility] [address] [place] [address] Social History Tobacco Use Types [...] Sign Reading Time Taken Comments Blood Pressure 130/81 09/11/2013 10:10 AM EMBOSSING MACHINE OPERATOR HELPER Pulse 95 09/11/2013 10:10 AM EMBOSSING MACHINE OPERATOR HELPER Temperature - - Respiratory Rate - - Oxygen Saturation - - Inhaled Oxygen Concentration - - Weight 102.3 kg (225 lb 8 oz) 09/11/2013 10:10 AM EMBOSSING MACHINE OPERATOR HELPER Height 163.8 cm (5' 4.5) 09/11/2013 10:10 AM EMBOSSING MACHINE OPERATOR HELPER Body Mass Index 38.11 09/11/2013 10:10 AM EMBOSSING MACHINE OPERATOR HELPER documented in this encounter Patient Instructions Patient InstructionsFatou Randhawa CNM - 09/11/2013 10:20 AM EMBOSSING MACHINE OPERATOR HELPER Annual exam due in 2013. Mirena IUD use reminders: Your IUD will need to be removed/replaced by 08/08/2018 CALL [phone] to report: * Bleeding heavier than normal period or bleeding more than 2 days. * An abnormal, bad smell to the drainage from your vagina * Fever greater than 100 degrees and/or chills * Severe lower abdominal or pelvic pain Remember to check your strings once an month and after bleeding. Use condoms if the strings feel longer than normal, you feel the hard end of the IUD, or you can't locate the strings. Call to make an appt to check the location of your IUD. For additional information re your IUD, please check the following Web site : [email or web address] You may contact us via My Chart or by [phone] and asking to speak with a STORY TELLER triage nurse. The nurse will contact me for questions she is not able to answer. Thanks for trusting our providers at [facility] with your health care needs. Fatou Randhawa, MSN, CNM SSING MACHINE OPERATOR HELPER documented in this encounter Progress Notes Fatou Randhawa CNM - 09/11/2013 10:26 AM CST SUBJECTIVE: Logna Arredondo is a 28 year old female, returns for Mirena IUD check. Reports two weeks bldg and cramping following insertion. Now periodic spotting with decreasing cramps. Is happy with IUD and grateful to have reliable contraception. Current method of contraception is IUD Mirena Last PAP NIL 11/09/2012 OBJECTIVE: BP 130/81 Pulse 95 Ht 1.638 m (5' 4.5) Wt 102.286 kg (225 lb 8 oz) BMI 38.12 kg/m2 LMP 08/21/2013 Pelvic Exam: EG/BUS: Normal genital architecture without lesions, erythema or abnormal secretions. Bartholin's, Urethra, Risingsun's glands are normal. Vagina: moist, pink, rugae with creamy, white and odorless secretions Cervix: pink, moist, closed, without lesion or CMT IUD strings extend 3 cm from external os. Uterus: anteverted, and small, smooth, firm, mobile w/o pain Adnexa: Within normal limits and No masses, nodularity, tenderness Rectum: anus normal ASSESSMENT: 1. Mirena IUD (intrauterine device) in place (V45.51) 2. Dysmenorrhea (625.3) 3. History of pulmonary embolism (V12.55) PLAN: Celebrate success -- good contraception and dysmenorrhea control! Reviewed sxs to report. See Patient Education. Verbalized understanding and agreement with plan. 10 ' / 15 ' TT spent in C and CC Fatou Randhawa, MSN, CNM SSING MACHINE OPERATOR HELPER documented in this encounter Nursing Notes 09/11/2013 10:00 AM CST >> SEE ROSITA AVILA Mon Sep 11, 2013 10:12 AM Patient presents with: IUD - Mirena IUD check documented in this encounter Plan of Treatment Not on filedocumented as of this encounter Visit Diagnoses Diagnosis Mirena IUD (intrauterine device) in plac e - Primary Presence of intrauterine contraceptive d evice Dysmenorrhea History of pulmonary embolism Personal history of pulmonary embolism Panic attack Panic disorder without agoraphobia documented in this encounter Care Teams Meat Hanger Relationship Specialty Start Date End Date Shari Mann PCP - General 07/12/12 10/07/14 documented as of this encounter
--- OUTSIDE RECORDS SUMMARY | 2022-06-02 16:08 | XMS_ITS | Encounter Summary ---
:1985 Author Organization [place] Address [address] [place] [address] Care Team Providers Name Role Phone Shari Mann Primary Care Provider Reason for Visit Reason Onset Date Comments Refill Request 09/17/2014 Encounter Details Date Type Department Care Team Description 09/17/2014 MyC Refill M [facility] Lizzette Randhawa, Refill Request Clinic [place] LABEL PRINTER CN [address] [facility] Professional Bldg [facility] [address] [place], [place] [phone] Social History Tobacco Use Types Packs/Day Years Used Date Smoking Tobacco: Former Cigarettes 0.5 5 Quit : 07/19/2012 Smokeless Tobacco: Never Alcohol Use Standard Drinks/Week Comments Yes 0 (1 standard drink = 0.6 oz pure alcoho l) 1-4d 1x/wk Sex Assigned at Date Recorded Not on file documented as of this encounter Miscellaneous Notes Telephone Encounter - Fallon Ramon RN - 09/21/2014 4:22 PM CST Spoke with Logan and gave her message from Kirti (see below). She agreed with plan and will call backto schedule. Message from Fatou Randhawa CNM sent at 09/21/2014 7:34 AM MAINTENANCE AND ENGINEERING MANAGER ----- Could see Dr. Aldrich or another PCP here if my schedule does not allow b/4 my work in [place]. TENANCE AND ENGINEERING MANAGER Telephone Encounter - Fatou Randhawa APRN CNM - 09/21/2014 7:34 AM MAINTENANCE AND ENGINEERING MANAGER She neeeds visit and medication review. Please assist her with locating Psych evaluation options with her insurance. Am happy to refer her. Quickest evaluation in ED is option if there is an Emergency. TENANCE AND ENGINEERING MANAGER Telephone Encounter - Mary Gutierrez RN - 09/18/2014 2:59 PM MAINTENANCE AND ENGINEERING MANAGER Route to Kirti Randhawa to review. Mary Gutierrez RN TENANCE AND ENGINEERING MANAGER Telephone Encounter - Mary Gutierrez RN - 09/18/2014 2:59 PM MAINTENANCE AND ENGINEERING MANAGER Message from [employer]: Original authorizing provider: ABDOUL Calvillo would like a refill of the following medications: LORazepam (ATIVAN) 0.5 MG tablet [Fatou Randhawa CNM] Preferred pharmacy: [facility] [address] [place] [address] Comment: Sharif Menchaca a patient of Kirti Randhawa, couple of questions... First I am wondering if I can have arefill of my Lorazepam with an increased amount of tablets. Second, I am beginning to feel like I need to take them more frequently than as needed and am wanting to take something else daily (ex. lexapro). Is this something that would be appropriate for me to have a visit with Kirti michelle or is there another Nurse Practitioner/Physicians Furnace Erector that someone can refer me to. [place] TENANCE AND ENGINEERING MANAGER documented in this encounter Plan of Treatment Not on filedocumented as of this encounter Visit Diagnoses Diagnosis Panic attacks Panic disorder without agoraphobia documented in this encounter Care Teams Services Host Relationship Specialty Start Date End Date Shari Mann PCP - General 07/12/12 10/07/14 documented as of this encounter
--- OUTSIDE RECORDS SUMMARY | 2022-06-02 16:08 | XMS_ITS | Encounter Summary ---
:1985 Author Organization [place] Address [address] [place] [address] Care Team Providers Name Role Phone Shari Mann Primary Care Provider Rashida Pederson APRN WOOD MILLER Primary Care Provider [phone] Reason for Visit Reason Comments Establish Care Depression Anxiety Encounter Details Date Type Department Care Team Description 10/06/2014 Office Visit [facility] Rashida Pederson Anxiety (P rimary Dx); Clinic [place] ZIYAD Benitez CNP Panic attack; [address] Major depression, recurrent (H) [place] [address] [phone] Social History Tobacco Use Types Packs/Day Years [...] Sign Reading Time Taken Comments Blood Pressure 102/64 10/06/2014 8:10 AM CONCRETE PAVEMENT INSTALLER Pulse 62 10/06/2014 8:10 AM CONCRETE PAVEMENT INSTALLER Temperature 36.7 ??C (98 ??F) 10/06/2014 8:10 AM CONCRETE PAVEMENT INSTALLER Respiratory Rate 10 10/06/2014 8:10 AM CONCRETE PAVEMENT INSTALLER Oxygen Saturation - - Inhaled Oxygen Concentration - - Weight 94.8 kg (209 lb) 10/06/2014 8:10 AM CONCRETE PAVEMENT INSTALLER Height 163.8 cm (5' 4.5) 10/06/2014 8:10 AM CONCRETE PAVEMENT INSTALLER Body Mass Index 35.32 10/06/2014 8:10 AM CONCRETE PAVEMENT INSTALLER documented in this encounter Patient Instructions Patient InstructionsRashida Pederson, WOOD MILLER - 10/06/2014 8:38 AM CST Images from the original note were not included. Understanding Anxiety Disorders Almost everyone gets nervous now and then. It???s normal to have knots in your stomach before a test, or for your heart to race on a first date. But an anxiety disorder is much more than a case of nerves. In fact, its symptoms may be overwhelming. But treatment can relieve many of these symptoms. Talking to your doctor is the first step. What Are Anxiety Disorders? An anxiety disorder causes intense feelings of panic and fear. These feelings may arise for no apparent reason. And they tend to recur again and again. They may prevent you from coping with life and cause you great distress. As a result, you may avoid anything that triggers your fear. In extreme cases, you may never leave the house. Anxiety disorders may cause other symptoms, such as: ?? Obsessive thoughts you can???t control ?? Constant nightmares or painful thoughts of the past ?? Nausea, sweating, and muscle tension ?? Difficulty sleeping or concentrating What Causes Anxiety Disorders? Anxiety disorders tend to run in families. For some people, childhood abuse or neglect may play a role. For others, stressful life events or trauma may trigger anxiety disorders. Anxiety can trigger low self-esteem and poor coping skills. Common Anxiety Disorders ?? Panic disorder: This causes an intense fear of being in danger. ?? Phobias: These are extreme fears of certain objects, places, or events. ?? Obsessive-compulsive disorder: This causes you to have unwanted thoughts. You also may perform certain actions over and over. ?? Posttraumatic stress disorder: This occurs in people who have survived a terrible ordeal. It can cause nightmares and flashbacks about the event. ?? Generalized anxiety disorder: This causes constant worry that can greatly disrupt your life. Getting Better You may believe that nothing can help you. Or, you might fear what others may think. But most anxiety symptoms can be eased. Having an anxiety disorder is nothing to be ashamed of. Most people do best with treatment that combines medication and therapy. Although these aren???t cures, they can help youlive a healthier life. ?? [id number] [employer]. [address] [place] [address], [place] [address]. All rights reserved. This information is not intended as a substitute for professional medical care. Always follow your healthcare professional's instructions. RETE PAVEMENT INSTALLER documented in this encounter Progress Notes Rashida Pederson CNP - 10/05/2014 10:53 AM CST SUBJECTIVE: Logan Arredondo is a 29 year old female who presents to clinic today for the following health issues: Abnormal Mood Symptoms ?? Onset: on and off for several years ?? Description: Depression: YES Anxiety: YES ?? Accompanying Signs & Symptoms: Still participating in activities that you used to enjoy: Yes Fatigue: YES Irritability: YES Difficulty concentrating: YES Changes in appetite: YES Problems with sleep: no Heart racing/beating fast : YES Thoughts of hurting yourself or others: none ?? History: Recent stress: YES Prior depression hospitalization: YES Family history of depression: YES Family history of anxiety: YES ?? Precipitating factors: Alcohol/drug use: YES ?? Alleviating factors: none ?? Therapies Tried and outcome: Ativan (Lorezepam), currenlty taking #30 every 4 to 6 weeks. Depression and anxiety since adolescence: Has been been on numerous SSRI's in the past without relief of depression or anxiety. Did find wellbutrin was helpful but had a sezure while taking. historyo fsuicide attempts in the past, no suicide attempts or SI in 5 years. Counseling: attended in the past, current insurance is a barrier. Exercise: None at this time. Smoking: Smokes 3 cigg per day. Social: Lives in with her boyfriend 5 days per week, other days lives with her father. 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 Problem list and histories reviewed & adjusted, as indicated. Additional history: as documented ROS: C: NEGATIVE for fever, chills, change in weight R: NEGATIVE for significant cough or SOB CV: NEGATIVE for chest pain, palpitations or peripheral edema PSYCHIATRIC: see HPI OBJECTIVE: BP 102/64 Pulse 62 Temp(Src) 98 ??F (36.7 ??C) (Oral) Resp 10 Ht 5' 4.5 (1.638 m) Wt 209 lb (94.802 kg) BMI 35.33 kg/m2 Body mass index is 35.33 kg/(m^2). GENERAL: healthy, alert and no distress NECK: no adenopathy, no asymmetry, masses, or scars and thyroid normal to palpation RESP: lungs clear to auscultation - no rales, rhonchi or wheezes CV: regular rate and rhythm, normal S1 S2, no S3 or S4, no murmur, click or rub, no peripheral edemaand peripheral pulses strong PSYCH: mentation appears normal, affect normal/bright ASSESSMENT: See below PLAN: Logan was seen today for establish care, depression and anxiety. Diagnoses and associated orders for this visit: Depression with anxiety - escitalopram (LEXAPRO) 20 MG tablet; Take [...] resources. Encouraged increased in exercise and counseling. - PHQ-9 ORDER - select when completing PHQ-9 - GENERAL ANXIETY DISORDER QUESTIONNAIRE ([place]) - LORazepam (ATIVAN) 0.5 MG tablet; Take 1 tablet (0.5 mg) by mouth every 8 hours as needed for anxiety FUTURE APPOINTMENTS: - Follow-up visit in 4 weeks, sooner as needed. Rashida Pederson CNP [facility] RETE PAVEMENT INSTALLER documented in this encounter Nursing Notes Ilda Phillips, ROSITA - 10/06/2014 8:15 AM CST Chief Complaint Patient presents with ??? Establish Care ??? Depression ??? Anxiety Initial BP 102/64 Pulse 62 Temp(Src) 98 ??F (36.7 ??C) (Oral) Resp 10 Ht 5' 4.5 (1.638 m) Wt 209 lb (94.802 kg) BMI 35.33 kg/m2 Estimated body mass index is 35.33 kg/(m^2) as calculated from the following: Height as of this encounter: 5' 4.5 (1.638 m). Weight as of this encounter: 209 lb (94.802 kg). BP completed using cuff size: large Ilda Phillips CMA RETE PAVEMENT INSTALLER documented in this encounter Miscellaneous Notes Addendum Note - Ilda Phillips CMA - 10/08/2014 1:00 PM CONCRETE PAVEMENT INSTALLER Addended by: ILDA PHILLIPS on: 10/08/2014 01:00 PM Modules accepted: Orders RETE PAVEMENT INSTALLER documented in this encounter Plan of Treatment Not on filedocumented as of this encounter Visit Diagnoses Diagnosis Anxiety - Primary Anxiety state, unspecified Panic attack Panic disorder without agoraphobia Major depression, recurrent (H) Major depressive disorder, recurrent epi sode, unspecified documented in this encounter Care Teams Relations Mgr Relationship Specialty Start Date End Date Shari Mann PCP - General 07/12/12 10/07/14 Rashida Pederson APRN CNP PCP - General Nurse Practitioner 10/08/14 [address] [place] [address] documented as of this encounter
--- OUTSIDE RECORDS SUMMARY | 2022-06-02 16:08 | XMS_ITS | Encounter Summary ---
:1985 Author Organization [place] Address [address] [place] [address] Care Team Providers Name Role Phone Shari Mann Primary Care Provider Bg, Rashida Benitez APRN GAS DISTRIBUTION AND EMERGENCY CLERK Primary Care Provider [phone] BgRashida APRN GAS DISTRIBUTION AND EMERGENCY CLERK Unavailable [phone] BgRashida cornejo APRN GAS DISTRIBUTION AND EMERGENCY CLERK Unavailable [phone] Paty Lewis CNM Unavailable [phone] Reason for Visit Reason Onset Date Comments Refill Request 04/17/2014 Encounter Details Date Type Department Care Team Description 04/17/[address] [facility] Women's Lizzette Randhawa S, Refill Request Clinic [facility] CNM [address] [facility] Professional Bldg [facility] [address] [place] [phone] Social History Tobacco Use Types Packs/Day Years Used Date Smoking Tobacco: Former Cigarettes 0.5 5 Quit : 07/19/2012 Smokeless Tobacco: Never Alcohol Use Standard Drinks/Week Comments Yes 0 (1 standard drink = 0.6 oz pure alcoho l) 1-4d 1x/wk Sex Assigned at Date Recorded Not on file documented as of this encounter Miscellaneous Notes Telephone Encounter - Mary Gutierrez RN - 04/17/2014 12:00 PM CDT Message from [employer]: Original authorizing provider: ABDOUL Calvillo Arnulfo would like a refill of the following medications: LORazepam (ATIVAN) 0.5 MG tablet [Fatou Randhawa CNM] Preferred pharmacy: [facility] [address] Comment: documented in this encounter Plan of Treatment Not on filedocumented as of this encounter Visit Diagnoses Diagnosis Panic attacks Panic disorder without agoraphobia documented in this encounter Care Teams Rfid Strategist Relationship Specialty Start Date End Date Shari Mann PCP - General 07/12/12 10/07/14 Rashida Pederson, PCP - General Nurse Practitioner 10/08/14 MIXOLOGIST GAS DISTRIBUTION AND EMERGENCY CLERK [address] [place] [address] Rashida Pederson, PCP - Assigned PCP 10/14/14 10/18/18 MIXOLOGIST GAS DISTRIBUTION AND EMERGENCY CLERK [address] [place] [address] Rashida Pedreson, Assigned PCP 10/14/14 MIXOLOGIST GAS DISTRIBUTION AND EMERGENCY CLERK [address] [place] [address] Paty Lewis Assigned OBGYN Provider 02/28/21 12/13/[address] [place] [address] [address] documented as of this encounter
--- OUTSIDE RECORDS SUMMARY | 2022-06-02 16:08 | XMS_ITS | Encounter Summary ---
:1985 Author Organization [place] Address [address] [place] [address] Care Team Providers Name Role Phone Shari Mann Primary Care Provider Reason for Visit Reason Comments IUD IUD consult Encounter Details Date Type Department Care Team Description 07/24/2013 Office Visit [facility], Encounter for IUD insertion (Primary Dx); [facility] ZIYAD Rasheed gene ral counseling and advice for contraceptive management; [place] [facility] History of pulmonary embolis m; [address] Contraception--condoms [facility] [address] [place] [address] Social History Tobacco Use Types [...] Sign Reading Time Taken Comments Blood Pressure 133/78 07/24/2013 2:28 PM FISHERIES INSPECTOR Pulse 84 07/24/2013 2:28 PM FISHERIES INSPECTOR Temperature - - Respiratory Rate - - Oxygen Saturation - - Inhaled Oxygen Concentration - - Weight 100.7 kg (222 lb) 07/24/2013 2:28 PM FISHERIES INSPECTOR Height 163.8 cm (5' 4.5) 07/24/2013 2:28 PM FISHERIES INSPECTOR Body Mass Index 37.52 07/24/2013 2:28 PM FISHERIES INSPECTOR documented in this encounter Patient Instructions Patient InstructionsFatou Randhawa CNM - 07/24/2013 2:35 PM CST Further information on contraceptive options is available at: [email or web address]/all-access/jj-[email or web address].htm Please call the first day of your next period to schedule either an Mirena IUD insert or a Nexplanonplacement. IF you decide on the IUD, please pick and shovel worker the misoprostol prescription and have it ready to take 2 hours before the appt time. See directions on the prescription label. Take ibuprofen 600 mg or Aleve 500 one hr before appt with light snack. Mirena IUD will need to be removed and/or replaced in 5 years. For additional information re your IUD, please check the following Web site : [email or web address]~/media/[email or web address] I gave you detailed written information re [...] and/or a bad smell to you discharge. Remember to check your strings once an month and after bleeding. Use condoms if the strings feel longer than normal, you feel the hard end of the IUD, or you can't locate the strings. Call to make an appt to check the location of your IUD. Nexplanon will need to be removed and/or replaced after three years. Expect some bruising where the Nexplanon was placed. There is a slight risk of getting a scar or an infection from this procedure. Please call if you have redness or discharge at the insertion site. Please edith a calendar with the days that you have bleeding. It is NORMAL to have unpredictable bleeding while using the Nexplanon and if it is bothersome, it will be hard to tell us about it without writing it down. CONSENT for NEXPLANON?? (etonogestrel implant) Radiopaque -- Subdermal Use Only PATIENT CONSENT FORM I understand the Patient Labeling for NEXPLANON??. I have discussed NEXPLANON with my healthcare provider who answered all my questions. I understand that there are benefits as well as risks with usingNEXPLANON. I understand that there are other control methods and that each has its own benefits and risks. I also understand that this Patient Consent Form is important. I understand that I need to sign thisform to show that I am making an informed and careful decision to use NEXPLANON, and that I have read and understand the following points. ? * NEXPLANON helps to keep me from getting . ? * No contraceptive method is 100% effective, including NEXPLANON. ? * NEXPLANON has an implant that contains a hormone. ? * It is important to have the NEXPLANON implant placed in my arm at the right time of my menstrualcycle. ? * After the implant is placed in my arm, I should check that it is in place by gently pressing my fingertips over the skin where the implant was placed. I should be able to feel the implant. ? * The implant must be removed at the end of three years. The implant can be removed sooner if I want. ? * If I have trouble finding a healthcare provider to remove the implant, I can call for help. ? * The implant is placed under the skin of my arm during a procedure done in my healthcare provider???s office. There is a slight risk of getting a scar or an infection from this procedure. ? * Removal is usually a minor procedure. Sometimes, removal may be more difficult. Special procedures, including surgery in the hospital, may be needed. Difficult removals may cause pain and scarring and may result in injury to nerves and blood vessels. If the implant is not removed, its effects may continue. ? * Most women have changes in their menstrual bleeding patterns while using NEXPLANON. I also will likely have changes in my menstrual bleeding pattern while using NEXPLANON. My bleeding may be irregular, stable helper or heavier, or my bleeding may completely stop. If I think I am , I should contact my healthcare provider as soon as possible. ? * I understand the warning signs for problems with NEXPLANON. I should seek medical attention if any warning signs appear. ? * I should tell all my healthcare providers that I am using NEXPLANON. ? * I need to have a medical checkup regularly and at any time I am having problems. ? * NEXPLANON does not protect me from HIV infection (AIDS) or any other sexually transmitted diseases. After learning about NEXPLANON, I choose to use NEXPLANON. Women's Health Specialist, [facility] -- (Name of Healthcare Provider) (Patient Signature) (Date) WITNESSED BY: The patient above has signed this consent in my presence after I counseled her and answered her questions. (Healthcare Provider Signature) (Date) I have provided an accurate translation of this information to the patient whose signature appears above. She has stated that she understands the information and has had an opportunity to have her questions answered. (Signature of Ground Wirer) (Date) Manufactured by: [employer] [place], [place], a subsidiary of [employer] [place] [address], [place] Copyright ?? 2010 [employer] a subsidiary of [employer] All rights reserved. Revised: 12/2011 [id number]-[id number] Thanks for trusting our providers at [facility] with your health care needs. Fatou Randhawa, MSN, CNM ERIES INSPECTOR documented in this encounter Progress Notes Fatou Randhawa CNM - 07/24/2013 2:24 PM CST SUBJECTIVE: Logan Arredondo is a 28 year old female, requests review of estrogen free contraceptive options. Has found a sexual partner and they want to have condom free coitus. Current method of contraception is condoms Last PAP NIL 11/09/2012 OBJECTIVE: BP 133/78 Pulse 84 Ht 1.638 m (5' 4.5) Wt 100.699 kg (222 lb) BMI 37.52 kg/m2 LMP 06/27/2013 ? No Constitutional: She is oriented to person, place, and time, without apparent distress. She appears comfortable, and well nourished. Exam is current. States she has had recent negative STI screen at [facility]. ASSESSMENT: 1. Encounter for IUD insertion (V25.11) misoprostol (CYTOTEC) 200 MCG tablet 2. Other general counseling and advice for contraceptive management (V25.09) 3. History of pulmonary embolism (V12.55) PLAN: BC options reviewed including use, efficacy, risks, benefits, and compliance. Further information on contraceptive options is available at: https://www.[facility].org/all-access/oj-kmagbm-69876.htm Medication Rx Status Sig ??? misoprostol (CYTOTEC) [address] one tablet between upper gum and cheek on leftand right side 2 hours before procedure. Swish and swallow after 30 minutes. Written info on Mirena and Nexplanon reviewed/given. See Patient Education. Verbalized understanding and agreement with plan. 10 ' / 15 ' TT spent in C and CC Fatou Randhawa, MSN, CNM ERIES INSPECTOR documented in this encounter Nursing Notes 07/24/2013 2:30 PM CST >> SEE ROSITA AVILA Mon Jul 24, 2013 2:30 PM Patient presents with: IUD - IUD consult documented in this encounter Plan of Treatment Not on filedocumented as of this encounter Visit Diagnoses Diagnosis Encounter for IUD insertion - Primary Encounter for insertion of intrauterine contraceptive device Other general counseling and advice for contraceptive management History of pulmonary embolism Personal history of pulmonary embolism Contraception--condoms Unspecified contraceptive management documented in this encounter Care Teams File Conversion Operator Relationship Specialty Start Date End Date Shari Mann PCP - General 07/12/12 10/07/14 documented as of this encounter
--- OUTSIDE RECORDS SUMMARY | 2022-06-02 16:08 | XMS_ITS | Encounter Summary ---
:1985 Author Organization [place] Address [address] [place] [address] Care Team Providers Name Role Phone Mann, Shari Primary Care Provider Encounter Details Date Type Department Care Team Description 11/02/2013 Radiant Appointment [facility] jerrell IUD (intrauterine device) in place; Center Dysmenorrhea [facility] 1st Floor, Clinic [address] [place], [place] [address] Social History Tobacco Use Types Packs/Day Years [...] Procedure Name Priority Date/Time Associated Comments Diagnosis US PELVIC Routine 11/02/2013 6:43 PM Mirena IUD Results f or this TRANSABDOMINAL AND CDT (intrauterine procedur e are in TRANSVAGINAL device) in place the results Dysmenorrhea section. documented in this encounter Results US Pelvic Complete with Transvaginal (11/02/2013 6:43 PM CDT) Anatomical Region Laterality Modality Abdomen/Pelvis Ultrasound Specimen (Source) Anatomical Location Collection Method / Collectio n Time Received Time / Laterality Volume Impressions 11/02/2013 8:27 PM CDT IMPRESSION: ?? 1. Appropriate position of the intrauter ine contraceptive device. 2. There is a 4.3 cm simple cyst in the right ovary that likely represents a functional ovarian cyst. I have personally reviewed the examinati on and initial interpretation and I agree with the findings. ZHANG NEGRETE MD Narrative 11/02/2013 8:27 PM CDT Pelvic ultrasound, 11/02/2012 COMPARISON: None. HISTORY: Intrauterine device check. Abdo vashti pain and cramping. TECHNIQUE: Transabdominal and endovagina l pelvic ultrasound with Doppler waveform imaging. FINDINGS: The uterus measures 7.6 x 3.8 x 3.0 cm. ??The endometrial stripe measures 3 mm in total thickness, which is within normal limits for age and menstrual status. ??Appropriate positioning of an intrauterine contraceptive device. There is a small a mount of fluid in the endocervical canal. The right ovary measures 4.6 x 4.0 x 3.3 cm. There is a 4.2 x 3.6 x 2.2 cm simple cyst in the right ovary. T he left ovary measures 2.1 x 2.4 x 1.7 cm. and has a normal follicula r pattern There is normal arterial flow by Doppler waveform imaging to the bilateral adnexa. Procedure Note Zhang Negrete MD - 11/02/2013F ormatting of this note might be different from the original. Pelvic ultrasound, 11/02/2012 COMPARISON: None. HISTORY: Intrauterine device check. Abdo vashti pain and cramping. TECHNIQUE: Transabdominal and endovagina l pelvic ultrasound with Doppler waveform imaging. FINDINGS: The uterus measures 7.6 x 3.8 x 3.0 cm. The endometrial stripe measures 3 mm in total thickness, which is within normal limits for age and menstrual status. Appropriate po sitioning of an intrauterine contraceptive device. There is a small a mount of fluid in the endocervical canal. The right ovary measures 4.6 x 4.0 x 3.3 cm. There is a 4.2 x 3.6 x 2.2 cm simple cyst in the right ovary. T he left ovary measures 2.1 x 2.4 x 1.7 cm. and has a normal follicula r pattern There is normal arterial flow by Doppler waveform imaging to the bilateral adnexa. IMPRESSION IMPRESSION: 1. Appropriate position of the intrauter ine contraceptive device. 2. There is a 4.3 cm simple cyst in the right ovary that likely represents a functional ovarian cyst. I have personally reviewed the examinati on and initial interpretation and I agree with the findings. ZHANG NEGRETE MD Sharron Bentley Jayson LACKEY CNM IMG US ORDERABLES documented in this encounter Visit Diagnoses Diagnosis Mirena IUD (intrauterine device) in plac e Presence of intrauterine contraceptive d evice Dysmenorrhea documented in this encounter Care Teams Tester Wafer Substrate Relationship Specialty Start Date End Date Shari Mann PCP - General 07/12/12 10/07/14 documented as of this encounter
--- OUTSIDE RECORDS SUMMARY | 2022-06-02 16:08 | XMS_ITS | Encounter Summary ---
:1985 Author Organization [facility] Address [address] [place] [address] Care Team Providers Name Role Phone Shari Mann Primary Care Provider Reason for Visit Reason Onset Date Comments Onboarding 09/14/2013 Onboarding [facility] Encounter Details Date Type Department Care Team Description 09/14/2013 Telephone [facility] Unassigned, Clinic Onboarding (Onboarding [place] MD [facility]) [phone] Social History Tobacco Use Types Packs/Day Years [...] this encounter Miscellaneous Notes Telephone Encounter - Raghavendrajonnathan Yeison - 11/02/2013 2:21 PM CDT Selection of Care System: [facility] Selection of primary provider/clinic: [facility] Do you have a medical condition that requires you to go to see your doctor on a routine basis?: yes If yes, what conditions do you have?: depression/anxiety Do you have any health concerns that you need assistance finding a provider or scheduling an appointment? no Medications: Mirena Lorazepram Allergies: Estrogens [facility] or [facility] Pharmacy assigned to patient: no Current Pharmacy/location and number: Pharmacy of choice: Prescription names: Telephone Encounter - Apollo Palacios - 09/14/2013 1:29 PM CST 09/14/2013 Call Regarding Onboarding [employer] [facility] [facility] Attempt 1 Message on voicemail Comments: no dependents Outreach Dice Table Person Apollo Xie CLOSER HELPER documented in this encounter Plan of Treatment Not on filedocumented as of this encounter Visit Diagnoses Not on filedocumented in this encounter Care Teams Kitman Relationship Specialty Start Date End Date Shari Mann PCP - General 07/12/12 10/07/14 documented as of this encounter
--- OUTSIDE RECORDS SUMMARY | 2022-06-02 16:08 | XMS_ITS | Encounter Summary ---
:1985 Author Organization [facility] Address [address] [place] [address] Care Team Providers Name Role Phone Shari Mann Primary Care Provider Reason for Visit Reason Onset Date Comments Refill Request 04/17/2014 Erroneous encounter-disregard 04/17/2014 Encounter Details Date Type Department Care Team Description 04/17/2014 Refill [facility] Women's Nurse, [facility] Refill Request; Erroneous Clinic [place] encounter-disregard [address] [facility] [address] [place] [phone] Social History Tobacco Use Types Packs/Day Years Used Date Smoking Tobacco: Former Cigarettes 0.5 5 Quit : 07/19/2012 Smokeless Tobacco: Never Alcohol Use Standard Drinks/Week Comments Yes 0 (1 standard drink = 0.6 oz pure alcoho l) 1-4d 1x/wk Sex Assigned at Date Recorded Not on file documented as of this encounter Miscellaneous Notes Telephone Encounter - Fallon Ramon RN - 04/17/2014 3:14 PM CDT This encounter was opened in error. Please disregard. documented in this encounter Plan of Treatment Not on filedocumented as of this encounter Visit Diagnoses Diagnosis ERRONEOUS ENCOUNTER--DISREGARD - Primary documented in this encounter Care Teams Ambulatory Care Relationship Specialty Start Date End Date Shari Mann PCP - General 07/12/12 10/07/14 documented as of this encounter
--- OUTSIDE RECORDS SUMMARY | 2022-06-02 16:08 | XMS_ITS | Encounter Summary ---
:1985 Author Organization [place] Address [address] [place] [address] Care Team Providers Name Role Phone Sahri Mann Primary Care Provider Rashida Pederson APRN RN CHEMICAL DEPENDENCY Primary Care Provider [phone] BgRashida cornejo APRN RN CHEMICAL DEPENDENCY Unavailable [phone] Rashida Pederson APRN RN CHEMICAL DEPENDENCY Unavailable [phone] Paty Lewis [facility] Unavailable [phone] Encounter Details Date Type Department Care Team Description 11/25/2013 Records - [facility] CONVERSION Scan, Non-Provider Social History Tobacco Use Types Packs/Day Years [...] on filedocumented in this encounter Care Teams Bundle Person Relationship Specialty Start Date End Date Shari Mann PCP - General 07/12/12 10/07/14 Rashida Pederson, PCP - General Nurse Practitioner 10/08/14 ORGANIZATIONAL DEVELOPMENT SPECIALIST RN CHEMICAL DEPENDENCY [address] [place], [place] [phone] Rashida Pederson, PCP - Assigned PCP 10/14/14 10/18/18 ORGANIZATIONAL DEVELOPMENT SPECIALIST RN CHEMICAL DEPENDENCY [address] [place], [place] [phone] Rashida Pederson, Assigned PCP 10/14/14 ORGANIZATIONAL DEVELOPMENT SPECIALIST RN CHEMICAL DEPENDENCY [address] [place], [place] [phone] Paty Lewis Assigned OBGYN Provider 02/28/21 12/13/21 ABDOUL Mcgee [address] [place] [address] [address] documented as of this encounter
--- OUTSIDE RECORDS SUMMARY | 2022-06-02 16:08 | XMS_ITS | Encounter Summary ---
:1985 Author Organization [place] Address [address] [place] [address] Care Team Providers Name Role Phone Shari Mann Primary Care Provider Reason for Visit Reason Comments Procedure Ultrasound guided IUD insert (mirena) Encounter Details Date Type Department Care Team Description 08/07/2013 Office Visit [facility] Floyd Rdz MD [address] [place] [address] Encounter for IUD [facility] Idalmis Son MD [address] [place] [address] insertion (Primary [place] Dx) [address] [place] [facility] [address] [place] [address] Social History Tobacco Use Types [...] Sign Reading Time Taken Comments Blood Pressure 148/95 08/07/2013 11:35 AM MORTGAGE LOAN COUNSELOR Pulse 106 08/07/2013 11:35 AM MORTGAGE LOAN COUNSELOR Temperature - - Respiratory Rate - - Oxygen Saturation - - Inhaled Oxygen Concentration - - Weight 99.3 kg (219 lb) 08/07/2013 11:35 AM MORTGAGE LOAN COUNSELOR Height - - Body Mass Index 37.01 08/02/2013 2:51 PM MORTGAGE LOAN COUNSELOR documented in this encounter Patient Instructions Patient InstructionsHoIdalmis aguilar MD - 08/07/2013 4:00 PM MORTGAGE LOAN COUNSELOR IUD pamphlet reviewed and given to patient. GAGE LOAN COUNSELOR documented in this encounter Progress Notes Idalmis Son MD - 08/07/2013 4:00 PM CST SUBJECTIVE: Logan Arredondo is a 28 year old female, requests Mirena IUD Previous attempt aborted due to cervical stenosis. Verification of Procedure: Just before the procedure begans through verbal and active participation of team members, I verified: Initials Patient Name SH Patient SH Procedure to be performed SH Consent: Risks, benefits of treatment, and alternative options for contraception were discussed. Patient's questions were elicited and answered. Written consent was obtained and scanned into medical record. OBJECTIVE: BP 148/95 Pulse 106 Wt 99.338 kg (219 lb) LMP 07/28/2013 ? No Pelvic Exam: EG/BUS: Normal genital architecture without lesions, erythema or abnormal secretions. Bartholin's, Urethra, Agricola's glands are normal. Vagina: moist, pink, rugae with creamy, white and odorlesssecretions Cervix: no lesions Uterus: anteverted, Adnexa: Within normal limits and No masses, nodularity, tenderness Rectum: anus normal PROCEDURE NOTE -- Mirena Insertion Reason for Insertion: contraception. test: Negative Counseling: Patient counseled on efficacy, benefits, risks, potential side effects of IUD. Insertionprocedure and risk of infection, perforation, and spontaneous expulsion reviewed. Advised to plan removal and/or replacement of IUD in 5 years from today or when desired. Logan was pre-medicated with cytotec prior to beginning the procedure. Under sterile technique, cervix was visualized with a medium Graves speculum and prepped with Betadine solution. The cervix was serially dilated under ultrasound guidance to 4 mm using Hegar dilators. The uterus was sounded to 8 cm. The Mirena IUD insertion apparatus was prepared and placed through the cervix without significant resistance and deployed at the fundus in the usual fashion. The strings were trimmed 3 cm from the external os. Device Lot #: [id number] EBL: Minimal Complications: None Logan Arredondo tolerated procedure well. PLAN: Written information on IUD use reviewed and given. Symptoms to report reviewed. To report heavy bleeding, severe cramping, or abnormal vaginal discharge. May take Ibuprofen 400-800 mg PO TID PRN or Naproxen 500 mg PO BID for cramping. Reminded to check for IUD strings every month. Return to clinic in 4-6 weeks for string check. Logan Arredondo verbalized understanding of instructions. Idalmis Son MD GAGE LOAN COUNSELOR documented in this encounter Nursing Notes 08/07/2013 11:00 AM CST >> LILLI HOWARD LPN Mon Aug 07, 2013 11:36 AM Patient presents with: Procedure - Ultrasound guided IUD insert (mirena) Lilli Howard LPN documented in this encounter Plan of Treatment Not on filedocumented as of this encounter Procedures Procedure Name Priority Date/Time Associated Diagnosis Comme nts HC INSERTION Routine 08/07/2013 4:00 PM Encounter for IUD INTRAUTERINE DEVICE MORTGAGE LOAN COUNSELOR insertion documented in this encounter Visit Diagnoses Diagnosis Encounter for IUD insertion - Primary Encounter for insertion of intrauterine contraceptive device documented in this encounter Care Teams Technical Supervisor Relationship Specialty Start Date End Date Shari Mann PCP - General 07/12/12 10/07/14 documented as of this encounter
--- OUTSIDE RECORDS SUMMARY | 2022-06-02 16:08 | XMS_ITS | Encounter Summary ---
:1985 Author Organization [facility] Address [facility] [place] [address] Care Team Providers Name Role Phone Shari Mann Primary Care Provider Reason for Visit Reason Onset Date Comments Refill Request 05/31/2014 Other Encounter Details Date Type Department Care Team Description 05/31/2014 MyC Refill [facility] Lizzette Randhawa Refill Request; [facility] [address] [facility] [address] [place] [phone] Social History Tobacco Use Types Packs/Day Years Used Date Smoking Tobacco: Former Cigarettes 0.5 5 Quit : 07/19/2012 Smokeless Tobacco: Never Alcohol Use Standard Drinks/Week Comments Yes 0 (1 standard drink = 0.6 oz pure alcoho l) 1-4d 1x/wk Sex Assigned at Date Recorded Not on file documented as of this encounter Miscellaneous Notes Telephone Encounter - Callie Harvey RN - 06/06/2014 11:47 AM CDT ----- Message from Fatou Randhawa CNM sent at 06/06/2014 11:40 AM CDT ----- Regarding: Pls call in Ativan refill Logan Arredondo would like a refill of the following medications: LORazepam (ATIVAN) 0.5 MG tablet [Fatou Randhawa CNM] #30 without further refill. Preferred pharmacy: [id number] I sent My Chart reply to patient that you would take care of it. ) Lizzette Pino documented in this encounter Plan of Treatment Not on filedocumented as of this encounter Visit Diagnoses Diagnosis Panic attacks Panic disorder without agoraphobia documented in this encounter Care Teams Pulmonology Technician Relationship Specialty Start Date End Date Shari Mann PCP - General 07/12/12 10/07/14 documented as of this encounter
--- OUTSIDE RECORDS SUMMARY | 2022-06-02 16:08 | XMS_ITS | Encounter Summary ---
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 Encounter Details Date Type Department Care Team Description 12/18/2013 Office Visit [facility], Routine gy necological examination (Primary Dx); [facility] Fatou Sheridan APRN Mirena IUD (intrauterine device) in place; [facility] Dysmenorrhea; [address] Ovarian follicular cyst -- r ecurrent [facility] [address] [place] [address] Social History Tobacco Use Types [...] Sign Reading Time Taken Comments Blood Pressure 127/86 12/18/2013 3:29 PM CDT Pulse 84 12/18/2013 3:29 PM CDT Temperature - - Respiratory Rate - - Oxygen Saturation - - Inhaled Oxygen Concentration - - Weight 103.1 kg (227 lb 6.4 oz) 12/18/2013 3:29 PM CDT Height 163.8 cm (5' 4.5) 12/18/2013 3:29 PM CDT Body Mass Index 38.43 12/18/2013 3:29 PM CDT documented in this encounter Patient Instructions Patient InstructionsFatou Randhawa APRN CNM - 12/18/2013 4:10 PM CDT Images from the original note were not included. EXPECT notification of ALL test results obtained. Your screening Pap will be due in December of 2015. For some tests, you may receive call regarding a positive test needing more immediate treatment and/or follow-up. This call may come from one of our Clinic Staff whom you have not met. Please know thatwe work as a TEAM and treat your health concerns with privacy. In addition, you will be notified by My Chart or Mail for normal results. If you have NOT heard fromus in a timely fashion, please call or send a My Chart message. PREVENTIVE HEALTH RECOMMENDATIONS: Most women need a yearly breast and pelvic exam. A PAP screen, a test done DURING a pelvic exam, is NO longer recommended yearly. October 2012, screening guidelines recommended by ACOG for PAP screen are: 1) First pap at age 21. 2) Pap every 3 years until age 30. 3) After age 30, pap every 3 years or Pap with HR HPV screen every 5 years until age 65. 4) Women do NOT need a vaginal Pap screen after a hysterectomy (surgical removal of the uterus) whenthey have not had cancer. Exceptions: 1) Yearly pap if HIV+ or immunosuppressed secondary to organ transplant 2) Follow-up for precancer lesions as individualized by provider and current protocol I encourage you continue looking for opportunities to choose a healthy lifestyle: * Choose to eat a heart healthy diet. Check out the FOOD PLATE guidelines at: http://www.choosemyplate.gov/ for helpful hints on weight and cholesterol management. Balance your caloric intake with exercise to maintain a BMI in the 22 to 26 range. For bone health: Eat calcium-rich foods like yogurt, broccoli or take chewable calcium pills (500 to 600 mg) twice a day with food. * Exercise for at least an average of 30 minutes a day, 5 days of the week. This will help you control your weight, release stress, and help prevent disease. * Take a Vitamin D3 supplement of 2000 IU daily fall through spring and during summer unless you [id number]' full body sun exposure to skin without sunscreen. * DO wear sunscreen to prevent skin cancer after the first 15-30 minutes. * Identify stressors in your life, find ways to release the stress, and, make time for yourself. PLEASE ask for help if mood changes last longer than two weeks. * Limit alcohol to one drink per day. No smoking. Avoid second hand smoke. If you smoke, ask for help to stop. * If you are in a sexual relationship, talk with your partner about possible infection risks and take action to protect yourself from exposure to a sexual infection. Please request an infection screen for STIs (sexually transmitted infections) if you are less than age 26 OR believe that you may be at risk. Get a flu shot each year. Get a tetanus shot every 10 years. EVERYONE needs a pertussis (Whooping cough) booster. See your dentist twice a year for an exam and preventive care cleaning. Consider the following screen tests: 1) cholesterol test every 5 years. 2) yearly mammogram after age 40 unless you have identified risks. 3) colonoscopy every 10 years after age 50 unless you have identified risks. Please contact the following service providers for further information: 1.[facility] located in [address] of our office building. Call to schedule: [phone] 2. [facility] via this website: [email or web address] Call to schedule: [phone] (option 1) 4) diabetes blood test screening if you are at risk for diabetes. Our Clinic is a HOSPITAL CLINIC which means you will get TWO bills. One will be from [facility] and the other from [facility]. For estimates on the costs of services you may call the Consumer Pricing Line at [phone] to request a good marlin estimate on your bill. Alternately, you may request a cost estimate on line at this web site: http://www.[employer].org/billing/Serviceandprocedurepricing/ Please know that our providers are working to change this Clinic Status. We see the current billing as a serious financial deterrent to ongoing care for you. If we can help you further, please let me know. BONUS Information that you may also find helpful!! The Internet provides access to LOTS of information -- some of it IS helpful and research documented. There is also plenty of harmful, anecdotal information that may not pertain to your situtaion. Consider visiting the following websites for accurate health information: @: http://nccam.nih.gov/ WWW.vitamindcouncil.org/ : Info and ongoing research re Vitamin D WWW.fairview.org : Up to date and easily searchable information on multiple topics. WWW.medlineplus.gov : medication info, interactive tutorials, watch real surgeries online WWW.cdc.gov : public health info, travel advisories, epidemics (H1N1) WWW.gregory/std.org: current research re diagnosis, treatment and prevention of sexually contacted infections. 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 Stressed with her two college courses at the end of the quarter. Has two more semesters b/4 she can start BSN program. Concerns to day include: periodic pelvic pain with recurrent ovarian cysts. No LMP recorded. with persistent unpredictable bleeding. Current method of contraception is IUD Mirena Last PAP NIL 11/09/2012 HISTORY: Prescription Medications as of 12/18/2013 LORazepam (ATIVAN) 0.5 MG tablet Take 1 tablet (0.5 mg) by mouth every 8 hours as needed for anxiety levonorgestrel (MIRENA) 20 MCG/24HR IUD 1 each by Intrauterine route once levonorgestrel (MIRENA) 20 MCG/24HR IUD 1 each (20 mcg) by Intrauterine route once for 1 dose terconazole (TERAZOL 3) 0.8 % vaginal cream Place 1 applicator vaginally At Bedtime for 3 days. Allergies Allergen Reactions ??? Estrogens Patient had estrogen associated PE Immunization History Administered Date(s) Administered ??? Influenza (IIV3) 05/14/2012 OB History Para Term AB TAB SAB Ectopic Multiple Living 0 0 0 0 0 0 0 0 0 0 Past Medical History Diagnosis Date ??? Bilateral pulmonary embolism 06/2012 ??? Menarche age 14 started OCP age 18; flows Q 35-38 (pt not certain) days (32 days when younger) lasting 4 days Past Surgical History Procedure Laterality Date ??? Appendectomy 1992 Family History Problem Relation Age of Onset ??? Heart attack Maternal Grandfather stent palcement ??? Alcohol/Drug Father biologic & adopted ??? Alcohol/Drug Mother biologic mom ??? Alzheimers Maternal Grandmother & PGF ??? Depression Father & Mother ??? Obesity Mother & MGM, PGM, PGF ??? Diabetes No family hx of ??? Hypertension No family hx of ??? Cancer No family hx of History Social History ??? Marital Status: Single Spouse Name: N/A Number of Children: N/A ??? Years of Education: N/A Occupational History ??? [employer] Works with [employer] at [employer] Social History Main Topics ??? Smoking status: Former Smoker -- 0.50 packs/day for 5 years Types: Cigarettes Quit date: 07/19/2012 ??? Smokeless tobacco: Never Used ??? Alcohol Use: Yes Comment: 1-4d 1x/wk ??? Drug Use: No ??? Sexually Active: Yes -- Male partner(s) Control/ Protection: Condom REVIEW of SYSTEMS (see concerns today, above): General: none Head/Eyes: none Ears/Nose/Throat: none Cardiovascular: none Respiratory: none Gastrointestinal: none Breast: none Genitourinary: none Sexual Function: none Musculoskeletal: none Skin: none Neurological: none Endocrine: none Mental Health: none Today's PHQ-2 Score: 1 EXAM: Blood pressure 127/86, pulse 84, height 1.638 m (5' 4.5), weight 103.148 kg (227 lb 6.4 oz). Body mass index is 38.44 kg/(m^2). General - pleasant female in no acute distress. Skin - no suspicious lesions or rashes EENT- PERRLA, euthyroid with out palpable nodules Neck - supple without lymphadenopathy. Lungs - clear to auscultation bilaterally. Heart - regular rate and rhythm without murmur. Abdomen - soft, nontender, nondistended, no masses or organomegaly noted. Musculoskeletal - no gross deformities. Neurological - normal strength, sensation, and mental status. Breast Exam: Breast: Without visible skin changes. No dimpling or lesions seen. Breasts supple, non-tender with palpation, no dominant mass, nodularity, or nipple discharge noted bilaterally. Axillary nodes negative. PELVIC EXAM: EG/BUS: Normal genital architecture without lesions, erythema or abnormal secretions. Bartholin's, Urethra, [place]'s glands are normal. Vagina: moist, pink, rugae with creamy, white, odorless and blood tinged secretions Cervix: pink, moist, closed, without lesion or CMT IUD strings extend 3 cm from external os. Uterus: anteverted, and small, smooth, firm, mobile w/o pain Adnexa: Within normal limits, No masses, nodularity, tenderness and Not palpable Rectum:anus normal ASSESSMENT: 28 year old Female Preventive Care Exam ICD-9-CM 1. Routine gynecological examination V72.31 2. Mirena IUD (intrauterine device) in place V45.51 3. Dysmenorrhea 625.3 4. Ovarian follicular cyst -- recurrent 620.0 PLAN: Genprobe offered and declined See Patient Instructions. Discussed risks/benefits and treatment options of prescribed medications and/or other treatment modalities. Return in one year/PRN for preventive care or problems/concerns. Verbalized understanding and agreement with visit plan. 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 documented in this encounter Plan of Treatment Not on filedocumented as of this encounter Visit Diagnoses Diagnosis Routine gynecological examination - Prim jason Mirena IUD (intrauterine device) in plac e Presence of intrauterine contraceptive d evice Dysmenorrhea Ovarian follicular cyst -- recurrent Follicular cyst of ovary documented in this encounter Care Teams [employer] Relationship Specialty Start Date End Date Shari Mann PCP - General 07/12/12 10/07/14 documented as of this encounter
--- OUTSIDE RECORDS SUMMARY | 2022-06-02 16:08 | XMS_ITS | Encounter Summary ---
:1985 Author Organization [place] Address [address] [place] [address] Care Team Providers Name Role Phone Shari Mann Primary Care Provider Reason for Visit Reason Comments Physical Pap due, GC/Clam, wet prep Encounter Details Date Type Department Care Team Description 11/09/2012 Office Visit [facility] Sydnee Gynecologi c exam normal (Primary Dx); [facility] Fatou Sheridan APRN BV (bacter ial vaginosis); [facility] Routine screening for STI (s exually transmitted infection) [address] [facility] Professional Bldg [facility] [address] [place] [address] Social History Tobacco Use Types [...] Sign Reading Time Taken Comments Blood Pressure 113/82 11/09/2012 8:05 AM CDT Pulse 100 11/09/2012 8:05 AM CDT Temperature - - Respiratory Rate - - Oxygen Saturation - - Inhaled Oxygen Concentration - - Weight 102.3 kg (225 lb 9.6 oz) 11/09/2012 8:05 AM CDT Height 163.8 cm (5' 4.5) 11/09/2012 8:05 AM CDT Body Mass Index 38.13 11/09/2012 8:05 AM CDT documented in this encounter Patient Instructions Patient InstructionsSydnee Fatou ABDOUL Sheridan - 11/09/2012 9:09 AM CDT SKIN CARE of VULVA with???. GOAL to promote healthy skin. The following guidelines are designed to help decrease and remove chemicals, moisture, or rubbing (friction) which can irritate vulva skin. LAUNDRY PRODUCTS ONLY use ALL FREEE CLEAR laundry detergent for EVERY load of laundry, every time. NO SUBSTITUTIONS. Use 1/3 to ?? the suggested amount per load. White vinegar or lemon juice, 1/3 to 1/4th c, per laundry load, may be used to freshen clothing and remove oils. Use dryer balls to help soften clothes. NO fabric softeners or dryer sheets. If you use a shared washer or dryer with others, you MUST hand wash ALL underwear in ALL FREE CLEAR and line dry them. After using stain removal products, including bleach, SOAK and RINSE ALL underwear and towels in clear water. Then wash in ALL FREE CLEAR to remove as much product as possible. CLOTHING Wear white all cotton underwear Cotton allows air in and moisture out. Wear loose fitting cotton boxer of cotton to bed, if you want. Do not wear underwear to bed. Do NOT wear nylon underwear with cotton crotch. Do not wear thongs. Wear thigh high hose. AVOID pantyhose. If you must wear them, cut out the katherine crotch being sure to leave about 1/4th inch of fabric from the seam to prevent running. Wear loose clothing. Remove wet bathing and exercise clothing as soon as you can. Rinse your vulva with bottled or chlorine free water. AVOID tight clothing, especially synthetics in pants and jeans. BATHING and HYGIENE Use your hand or a bottle to rinse your vulva with CHEMICAL free luke warm or cool water. Washing with your hand is enough for good cleaning. Do NOT scrub vulvar skin with a wash cloth or nylon net ball. Pat dry or use a agriculture department chair on a cool setting to dry the vulva. Do NOT rub with a towel. Try Dove for SENSITIVE skin, Neutrogena, BASIS, AVEENO, or Pears soap for the rest of your body. Do NOT use soap directly on the vulvar skin. Your partner also needs to use one of these soaps. Do NOT use bath soaps, lotions, gets, bubble bath, bath lasts, products marked ???gentle?? or ???mild?? , and scented oils. These may have a scent that you like AND have chemical that may be irritating your tender skin. BAKING SODA soaks help sooth vulvar skin itching or burning, After bathing, put 5 Tablespoons of baking soda in likeweram bath water. Soak for TEN minutes 1 to 3 time a day. If you use a basin to soak,use 2 teaspoons of baking soda. Rinse with chemical free water after urinating and pat dry. If you must use toilet paper, choose a white, unscented brand. Do NOT use toilet paper with aloe. Do Not use baby wipes. If you have pain while urinating, rinse with lukewarm water while you are going. Small amounts of Extra Canute olive oil, vegetable oil, zinc oxide ointment (without scent) or plainpetroleum ointment may be applied to your vulva. Put small amount of oil on a clean flat dish, touchthe oil with clean, soap free finger tips and apply to the vulvar skin as often as needed to protectthe skin. This also helps to decrease skin irritation during your period and when you urinate. Use scent FREE pads and tampons to absorb menstrual flow. Choose pads with a cotton liner that comesin contact with your skin. Try STAY FREE, CAREFREE, or 7th Generation products. Do NOT use pads witha nylon mesh weave that comes in contact with your skin. Nylon traps moisture and keeps blood and discharge against your skin longer. Choose a tampon size that will fill with blood in 4 hours and need to be removed. You may use TUCKS or Preparation H ointment for hemorrhoids. Rinse the vulva and pat dry after use. You may use scissors to trip the pubic hair close to the vulva. Laser hair removal is also an option. Do NOT shave or use hair removal products on the vular skin Do NOT use Feminine hygiene sprays, or ANY perfumes. Do NOT DOUCHE. The vaginal secretions that flow onto your vulvar skin are PROOF that your vagina is cleaning itself. Douching irritates vuvlar skin and upsets the normal balance of healthy bacteria that live in the vagina. This may cause a vagina infection that further irritates vulvar skin. Do NOT use bewq-pmh-bhrpdwm creams or ointments until you ask your health care provider. When buyingointments, be sure they are paraben and fragrance-fee. Some women have problems with chronic dampness. Keeping moisture controlled may be important. Do not wear pads on a daily basis Choose cotton fabrics to wear whenever you can Keep an extra pair of undewar with you and change if you become damp GOLD CASTORENA or ZEASORB powder may be applied to the vulva and groin area 1-2 times per day to help absorb moisture. Do not use powders that contain perfume or chemicals. Avoid corn starch if you have problems with yeast infections. For dryness and irritation during intercourse or sexual stimulation, try applying a small amount of pure vegetable oil or Extra [place]ute [place] oil to your vulva with the tips of your fingers. [place]ox oil or coconut oil may also be used UNLESS YOU experience irritation. These oils contain no chemicals to irritate vulvar/vaginal skin. These oils will rinse away with water and will not increase your chances of infection. Pmxu-pgj-czqgjew, water-based lubricants tend to dry out before intercourse is over, causing small tears in the vagina. They may also contain chemicals that can irritate your vulvar skin. It may be helpful to use a non-lubricated, non-spermicidal condom with vegetable oil as the lubricant. This will help keep the semen off the skin which can decrease burning and irritation after intercourse. CONTROL OPTIONS The new low-dose oral control pills do not increase your chances of getting a yeast infection. Lubricated condoms, contraceptive jellies/foam, creams, or sponges may cause itching and burning. PREVENTIVE HEALTH RECOMMENDATIONS: Most women need a [...] or immunosuppressed secondary to organ transplant 2) RICK II-III continue routine screening for 20 years. I encourage you continue looking for opportunities [...] through spring and during summer unless you [id number]' full body sun exposure to skin without [...] age 50 unless you have identified risks. 4) diabetes blood test screening if you are at risk for diabetes. BONUS Information that you may also find helpful!! The Internet now gives us access to LOTS of information -- some of it helpful, research documented and also plenty of harmful, anecdotal information that may not pertain to your situtaion. Consider visiting the following websites for accurate health information: WWW.vitamindcouncil.org/ : Info and ongoing research re Vitamin D WWW.fairview.org : Up to date and easily searchable information on multiple topics. WWW.medlineplus.gov : medication info, interactive tutorials, watch real surgeries online WWW.cdc.gov : public health info, travel advisories, epidemics (H1N1) WWW.gregory/std.org: current research re diagnosis, treatment and prevention of sexually contacted infections. 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 Referred by Dr. Aldrich. 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 Concerns today include: 1) Intermittent chronic yeast infections x 2 years; symptoms partially relieved with OTC Monistat; current symptoms include itchiness and odorous discharge, and, 2) requesting STD screening. Patient's last menstrual period was 10/30/2012. Cycles Q 35-38 days (pt uncertain of exact timeframe) for 3-4 days. Current method of contraception is abstinence Last pap at [facility] in [place] in 2000 was negative; no abnormal pap history. Last breast exam negative in May,. HISTORY: Prescription Medications as of 11/11/2012 metroNIDAZOLE (METROGEL) 0.75 % vaginal gel Place 1 applicator vaginally At Bedtime. LORazepam (ATIVAN PO) Take 0.5 mg by mouth 3 times daily as needed. Allergies Allergen Reactions ??? Estrogens Patient had estrogen associated PE Immunization History Administered Date(s) Administered ??? Influenza 05/14/2012 Obstetric History T0 TAB0 SAB0 E0 M0 L0 Past Medical History Diagnosis Date ??? Anxiety ??? Bilateral pulmonary embolism 06/2012 ??? Menarche age 14 started OCP age 18; flows Q 35-38 (pt not certain) days (32 days when younger) lasting 4 days Past Surgical History Procedure Date ??? Appendectomy 1992 Family History Problem Relation Age of Onset ??? Heart attack Maternal Grandfather stent palcement ??? C.A.D. Maternal Grandfather ??? Alcohol/Drug Father biological and adopted ??? Alcohol/Drug Mother biological mom ??? Alzheimers Maternal Grandmother ??? Alzheimers Paternal Grandfather ??? Depression Father ??? Depression Mother ??? Obesity Mother & MGM, PGM, PGF ??? Diabetes No family hx of ??? Hypertension No family hx of ??? Cancer No family hx of History Social History ??? Marital Status: Single Spouse Name: N/A Number of Children: N/A ??? Years of Education: N/A Occupational History ??? [employer] Works with [employer] at [employer] Social History Main Topics ??? Smoking status: Former Smoker -- 0.5 packs/day for 5 years Types: Cigarettes Quit date: 07/19/2012 ??? Smokeless tobacco: Never Used ??? Alcohol Use: Yes 3-4 drinks at a time approximately 1-3 per month ??? Drug Use: No ??? Sexually Active: Not Currently Other Topics Concern ??? Service No ??? [...] x's per week ??? Seat Belt Yes Does she feel safe at home? Yes Are there guns in the home? No Any recall of someone hurting you: physically, sexually, or emotionally: No recall. REVIEW of SYSTEMS: Constitutional: Negative for fever, chills or change in weight. Skin: Negative for worrisome rash, moles and lesions. Eyes: Negative for vision changes and irritation. Ears/Nose/Throat: Negative for ear, mouth, and throat problems. Respiratory: NEGATIVE for significant cough or SOB. Cardiovascular: Negative for chest pain, palpitations and peripheral edema. Breast: Negative for pain, mass, nipple discharge, skin changes. Gastrointestinal: Negative for nausea, pain, heartburn, and change in bowel habits. Genital: Negative for irregular bleeding, pelvic pain, and sexual problems. See HPI for additional information. Urinary: Negative for urinary frequency, dysuria, or incontinence. Musculoskeletal: Negative for significant arthralgias or myalgia. Neurologic: Negative for weakness, dizziness or paresthesias Hematologic/Lymphatic/Immunologic: Negative for bleeding disorder, swollen lymph nodes, significant allergens. Stopped taking Warfarin last Wednesday after approval from [facility]. Endocrine: Negative for temperature intolerance, skin and hair changes Psychiatric: Negative for changes in mood or affect EXAM: Blood pressure 113/82, pulse 100, height 1.638 m (5' 4.5), weight 102.331 kg (225 lb 9.6 oz), last menstrual period 10/30/2012, not currently . Body mass index is 38.13 kg/(m^2). General appearance: Pleasant female in no acute distress. HEENT: Eyes, ears and throat without inflammation, exudate or lesion. Neck: Neck and thyroid free free masses, nodules, or tenderness with palpation. Lymph: No lymphadenopathy. Lungs: Clear to auscultation bilaterally. Heart: Regular rate and rhythm without murmur. Breast: Without visible skin changes. No dimpling or lesions seen. Breasts supple, non-tender with palpation, no dominant mass, nodularity, or nipple discharge noted bilaterally. Axillary and epitrochlear nodes negative. Musculoskeletal: No gross deformities with normal ROM. Neurological: Normal strength, sensation, and mental status. Skin: No suspicious lesions or rashes. Psychiatric: Well groomed, mentation appears normal, affect normal/bright, judgment and insight intact. PELVIC EXAM: EG/BUS: Normal genital architecture without lesions, erythema or abnormal secretions with pubic hair shaven. Bartholin's, Urethra, [place]'s normal. Vagina: moist, pink, rugae with creamy, white, odorless and cheesy secretions Cervix: Nulliparous, pink, moist, closed, without lesion or CMT Uterus: Anteverted, small, smooth, firm, mobile without pain. Adnexa: Within normal limits and No masses, nodularity, tenderness Rectum:anus normal Office Wet prep: with positive whiff, clue cells present, white discharge; PH 4. ASSESSMENT: 27 year old Female Preventive Care Exam 1. Gynecologic exam normal ([id number]) Wet Prep POCT 2. BV (bacterial vaginosis) (616.10, 041.9) Wet Prep POC metroNIDAZOLE (METROGEL) 0.75 % vaginal gel Routine screening for STI (sexually transmitted infection) (V74.5) Gonorrhea PCR PLAN: Patient Education: Not necessary to treat sexual partner; exercise abstinence or condoms during treatment; avoid douching. Pls send current immunization records to clinic. Discussed risks/benefits and treatment options of prescribed medications and/or other treatment modalities. Return in one year/PRN for preventive care or problems/concerns. Verbalized understanding and agreement with visit plan. With patient consent, DNP/EMPLOYMENT SPECIALIST student,Cherelle Kay, RN MSN, conducted visit with my direction and supervision. Fatou Randhawa, MSN, CNM documented in this encounter Nursing Notes 11/09/2012 8:00 AM CDT >> SEE ROSITA AVILA WedNov 09, 2012 8:10 AM Patient presents with: Physical - Pap due, GC/Clam, wet prep See ROSITA Avila documented in this encounter Plan of Treatment Scheduled Orders Name Type Priority Associated Diagnoses Order S chedule Wet Prep POCT Point of Care Routine Gynecologic exam normal Ordered: 11/09/2012 Testing BV (bacterial vaginosis) documented as of this encounter Procedures Procedure Name Priority Date/Time Associated Diagnosis Comme nts NEISSERIA Routine 11/09/2012 9:00 AM Routine screening Resu lts for this GONORRHOEAE PCR CDT for STI (sexually procedu re are in transmitted the results infection) section. Gynecologic exam normal CHLAMYDIA Routine 11/09/2012 9:00 AM Gynecologic exam Resul ts for this TRACHOMATIS PCR CDT normal procedure are in Routine screening the result s for STI (sexually section. transmitted infection) PAP IMAGED THIN Routine 11/09/2012 12:00 Gynecologic exam Resu lts for this LAYER, DIAGNOSTIC AM CDT normal procedure are in BV (bacterial the results vaginosis) section. documented in this encounter Results Gonorrhea PCR (11/09/2012 9:00 AM CDT) Component Value Ref Test Analysis Performed At [facility] Method Time Signature Specimen Cervical [facility] N Gonorrhea Negative for N. gonorrhoeae rRNA by scow hand mediated amplification. [facility] PCR A negative result by transc ription mediated amplification does not preclude the [place] presence of N. gonorrhoeae infection because re sults are dependent on proper CAMPUS LABS and adequate collection, absence of inhibitors, and suffici ent rRNA to be detected. Specimen Anatomical Collection Method Collection Time Receive d Time (Source) Location / / Volume Laterality Cervical swab 11/09/2012 9:00 AM 11/10/19 13 (specimen) CDT 12:41 PM CDT Fatou BAKER LAB - MICRO GENERAL ORDER SUSHMA Performing Organization Address City/[facility]/ZIP Code Phon e Number [address] LAB [facility] Chlamydia PCR (11/09/2012 9:00 AM CDT) Component Value Ref Test Analysis Performed At [facility] Method Time Signature Specimen Cervical [facility] Chlamydia Negative for C. trachomatis rRNA by scow hand mediated amplification. [facility] Trachomatis A negative result by transc ription mediated amplification does not preclude the [place] PCR presence of C. trachomatis infection because results are dependent on proper CAMPUS LABS and adequate collection, absence of inhibitors, and suffici ent rRNA to be detected. Specimen Anatomical Collection Method Collection Time Receive d Time (Source) Location / / Volume Laterality Cervical swab 11/09/2012 9:00 AM 11/10/19 13 (specimen) CDT 12:41 PM CDT Fatou [facility]ER LAB - MICRO GENERAL ORDER SUSHMA Performing Organization Address City/[facility] Code Phon e Number [address] LAB [facility] PAP imaged thin layer, diagnostic (11/09/2012 12:00 AM CDT) Component Value Ref Test Analysis Performed At [facility] Method Time Signature PAP NIL COPATH Copath Report COPATH Patient Name: PADMA BARGER MR#: [id number] Specimen #: [id number] Collected: 11/09/2012 Received: 11/10/2012 Reported: 11/11/2012 14:09 Ordering Phy(s): FATOU RANDHAWA SPECIMEN/STAIN PROCESS: Pap Imaged thin layer prep diagnostic (SurePath, FocalPoint with guided screening) ? Pap-Cyto x 1, Digene Reflex HPV x 1 SOURCE: Cervical, endocervical ---- Pap Imaged thin layer prep diagnostic (SurePath, FocalPoint with guided screening) SPECIMEN ADEQUACY: Satisfactory for evaluation. -Transformation zone component absent. CYTOLOGIC INTERPRETATION: Negative for Intraepithelial Lesion or Malignancy Electronically signed out by: MARV Mahoney (ASCP) Processed and screened at [facility] CLINICAL HISTORY: LMP: 10/30/2012 Papanicolaou Test Limitations: ??Cervical cytology is a scre ening test with limited sensitivity; regular screening is critical for cancer prevention; Pap tests are primarily effective for the diagnosis/prevention of squamous cell carcinoma, not adenoca rcinomas or other cancers. TESTING LAB LOCATION: [address] ??[address] COLLECTION SITE: Client: ??[facility] Location: EBONI (David) Specimen (Source) Anatomical Collection Method Collection Time Re ceived Time Location / / Volume Laterality Cytologic 11/09/2012 11/10/2012 12:4 5 material PM CDT (specimen) Fatou Randhawa TEMPORARY ADMINISTRATIVE ASSISTANT CNM LAB [facility] Performing Organization Address City/State/ZIP Code Phon e Number COPATH documented in this encounter Visit Diagnoses Diagnosis Gynecologic exam normal - Primary Reserved for inherently not codable conc epts WITHOUT codable children BV (bacterial vaginosis) Vaginitis and vulvovaginitis, unspecifie d Routine screening for STI (sexually choi smitted infection) Screening examination for venereal disea se documented in this encounter Care Teams Swaging Machine Adjuster Relationship Specialty Start Date End Date Shari Mann PCP - General 07/12/12 10/07/14 documented as of this encounter
--- OUTSIDE RECORDS SUMMARY | 2022-06-02 16:08 | XMS_ITS | Encounter Summary ---
:1985 Author Organization [place] Address [address] [place] [address] Care Team Providers Name Role Phone Mann, Shari Primary Care Provider Reason for Referral - Closed Specialty Diagnoses / Procedures Referred By Contact Refer red To Contact Diagnoses Encounter for IUD insertion Ump Whs [facility] Procedures Heat Treat Operator,Limited (Follow [place]) [id number] [place] Professional Bldg [facility] [address] [place], [place] [address] 1-2011 Referral ID Status Reason Start Date Expiration Date Visits Requ ested Visits Authorized [id number] Closed 08/07/2013 02/03/2014 1 1 GER PRIVACY Reason for Visit Reason Onset Date Comments Erroneous encounter-disregard 09/01/2013 Encounter Details Date Type Department Care Team Description 08/07/2013 Office Visit [facility] Coretta Rdz er for IUD insertion (Primary Dx); [facility] MD Mihaela ERRONEOUS ENCOUNTER--DISREGARD Jensen [address] [place], [place] Bldg [facility] [address] [place], [place] (Work) [address] [phone] Social History Tobacco Use Types Packs/Day Years Used Date Smoking Tobacco: Former Cigarettes 0.5 5 Quit : 07/19/2012 Smokeless Tobacco: Never Alcohol Use Standard Drinks/Week Comments Yes 0 (1 standard drink = 0.6 oz pure 3-4 dr inks at a time approximately alcohol) 1-3 per month Sex Assigned at Date Recorded Not on file documented as of this encounter Progress Notes Jasmin Lester RN - 09/01/2013 4:14 PM CST This encounter was opened in error. Please disregard. GER PRIVACY documented in this encounter Plan of Treatment Not on filedocumented as of this encounter Visit Diagnoses Diagnosis Encounter for IUD insertion - Primary Encounter for insertion of intrauterine contraceptive device ERRONEOUS ENCOUNTER--DISREGARD documented in this encounter Care Teams Crown Ironer Relationship Specialty Start Date End Date Shari Mann PCP - General 07/12/12 10/07/14 documented as of this encounter
--- OUTSIDE RECORDS SUMMARY | 2022-06-02 16:08 | XMS_ITS | Encounter Summary ---
:1985 Author Organization [place] Address [address] [place] [address] Care Team Providers Name Role Phone Shari Mann Primary Care Provider Reason for Visit Reason Comments Hematology Patient with PE on anticoagu lation with Coumadin Encounter Details Date Type Department Care Team Description 10/28/2012 [facility] Visit [facility] Vincent Y, Jose F y of pulmonary and Clotting Disorde rs PA-C embolism (Primary Dx) 6th Floor, Clinic [address] [place] [id number] [place] [address] [phone] (Work) [phone] Social History Tobacco Use Types Packs/Day Years Used Date Smoking Tobacco: Former Cigarettes 0.5 5 Quit : 07/19/2012 Smokeless Tobacco: Never Alcohol Use Standard Drinks/Week Comments Yes 0 (1 standard drink = 0.6 oz pure alcoho l) occasionally Sex Assigned at Date Recorded Not on file documented as of this encounter Last Filed Vital Signs Vital Sign Reading Time Taken Comments Blood Pressure 118/81 10/28/2012 3:17 PM CDT Pulse 84 10/28/2012 3:17 PM CDT Temperature 36.7 ??C (98 ??F) 10/28/2012 3:17 PM CDT Respiratory Rate 18 10/28/2012 3:17 PM CDT Oxygen Saturation - - Inhaled Oxygen Concentration - - Weight 103 kg (227 lb 1.2 oz) 10/28/2012 3:17 PM CDT Height 166.4 cm (5' 5.5) 10/28/2012 3:17 PM CDT Body Mass Index 37.21 10/28/2012 3:17 PM CDT documented in this encounter Patient Instructions Patient InstructionsJessi Bardales RN - 10/28/2012 3:28 PM CDT 1. Let the CBCD know your decision regarding continuing Coumadin [phone]). 2. Call the CB[facility] with and bleeding or clotting questions ([phone]). documented in this encounter Progress Notes Betito Vincent PA-C - 10/28/2012 4:26 PM CDT [facility] Out[facility] Visit Note: Patient: Logan Arredondo MRN; [id number] : 1985 ADRIANA: October 28, 2012 Location: [facility] Reason: Pulmonary embolism 3 months ago. Here for follow up visit. Brief history: This is a 27 year old female who has a history of anxiety disorder, who was found to have bilateral pulmonary embolism back in 06/2012, presents to clinic today for 3 months follow up visit. Our last visit with her was back on 07/22/2012, please see my initial consult note for Logan's detail history. In brief, on 07/12/2012, she woke up with some left sided shoulder pain and some chest pain. 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 Towards the end of the work day she started to experience increase shortness of breath that accompanied with continue increase chest pain. [facility] and eventually she was accompanied to the emergency department for further evaluation. At the emergency department, she was found to have a high initial suspicion of pulmonary embolic event. A CT scan confirmed bilateral pulmonary embolism with possible infarct. She was admitted and was started on Heparin and subsequently discharged on Warfarin with Lovenox bridging. She apparently has been on estrogen containing OCP since she was 18 years of age. However, she has been using her current brand of OCP for the past 2 years. She also has been a intermediate frame tender cigarette smoker. She smokes about 1/2 a pack a day prior to the pulmonary embolic event. Since the PE event, she has stopped estrogen and quit smoking. She denies any other provoking event leading up to her pulmonary embolic event. During our visit with her back in 07/2012, our recommendation is to have her continue with anticoagulation therapy for at least 3 months time. She is now return for follow up visit. Subjective: In the past 3 months, she has been doing well with her anticoagulation therapy. Her INR has been very stable and has been therapeutic within the range of 2.0- 3.0. She denies any issues with bleeding complications. She reports that she has some low back pain occasionally. However, the sensation is somewhat different than when she had her pulmonary embolism. She denies any shortness of breath or any dyspnea on excursion. She denies any chest pain. She has not been using and estrogen containing products since her pulmonary embolic event. Medications: Current Outpatient Prescriptions Medication ??? warfarin (COUMADIN) 5 MG tablet ??? LORazepam (ATIVAN PO) Allergies: Allergies Allergen Reactions ??? Estrogens Patient had estrogen associated PE PmHx: Past Medical History Diagnosis Date ??? Anxiety and As above. Social History and Family History: Unchanged from previous. Objective: Pleasant 27 year old female in no acute distress. Vitals: B/P: 118/81, T: 98, P: 84, R: 18 Exam: Complete exam is not performed today. Labs: 07/25/2012: Protein S level 54%; Protein C level 49%; AT III 90%; Factor V Leiden Mutation and Prothrombin Gene Mutation Negative. Assessment: In summary, Logan is a 27 year old female who developed bilateral pulmonary embolism after she was placed on a different brand of estrogen containing OCP x 2 years, presents to clinic today for follow up visit. She has completed 3 months of anticoagulation therapy with her INR within the therapeutic range of 2.0-3.0. Her hypercoagulable workup was essentially negative with slightly low Protein S and Protein C level as expected with Coumadin use. Diagnosis: 1. 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 2. Family history of venous thromboembolism. Plan: In accordance to the CHEST guidelines, she has completed the required 3 months anticoagulation therapy for provoked venous thromboembolic event. Logan does complaint of some low back pain, which I doubtit is related to residual thrombus, but not entirely impossible. Hence we presents the following options to her: 1. Stop anticoagulation therapy as of today. 2. Continue with anticoagulation therapy for an addition of 3 more months. This is not unreasonable considering that she has been doing well on anticoagulation therapy for the past 3 months and that her pulmonary embolic event was bilateral and required hospitalization. 3. Repeat a chest CT, if negative for any residual thrombus, then stop anticoagulation therapy. And if positive for any residual thrombus, continue with anticoagulation therapy for 3 more months then re-evaluate At this time, Logan would like to continue with anticoagulation therapy for now and go home and discuss the options with her family members before making a final decision. She is instructed to call our center one way or another to inform us in regard to her final decision. In any event, Logan is instructed to call our center if she should find herself in the future, at which time, we do recommend that she should start pharmacological DVT prophylaxis for the duration of her and 6 weeks post . Patient was seen along with Jessi Bardales, nurse clinician. Patient understands and agrees with the above plan and recommendation. Total Time Spent: 15 minutes, over 50% of which was spent on counseling the patient and coordination of care. Betito Vincent PA-C, MPAS Physician Sports Trainer [facility]. [facility]. CC: Primary care physician. documented in this encounter Nursing Notes 10/28/2012 3:00 PM CDT >> JESSI BARDALES RN WedOct 28, 2012 9:35 PM Teaching Flowsheet Relevant Diagnosis: Pulmonary Embolism Teaching Topic: Plan for anticoagulation Person(s) involved in teaching: Patient Motivation Level: Asks Questions: Yes Eager to Learn: Yes Cooperative: Yes Receptive (willing/able to accept information): Yes Patient demonstrates understanding of the following: Reason for the appointment, diagnosis and treatment plan: Yes- After discussion with the provider itwas decided that she could discontinue anticoagulation or continue anticoagulation with Coumadin foranother three months. She wanted time to consider her options and will let the CB[facility] know her decision (see providers note for details) Knowledge of proper use of medications and conditions for which they are ordered (with special attention to potential side effects or drug interactions): Yes- Coumadin was reviewed with an emphasis on the importance of laboratory monitoring and consistent diet. An approach to increasing her broccoli intake was discussed. Which situations necessitate calling provider and whom to contact: Yes- situations that should prompt contact were reviewed (bleeding or clotting issues, unstable INR, or the need for invasive procedures). Educated patient about the signs, symptoms of and risk factors for venous thrombosis (VTE). The need for anticoagulation during was presented. Genetic counselor has contacted patient and a pedigree was developed. This was scanned into the chart. Patient educated about benefits and potential complications of anticoagulation. Patient has INR followed through the anticoagulation monitoring clinic here at the [facility]. Patient verbalized understanding of the above information. They deny further questions at this time.Patient provided with a copy of the [facility] brochure, with contactnumbers for staff, and were encouraged to call with future questions and concerns. documented in this encounter Plan of Treatment Not on filedocumented as of this encounter Visit Diagnoses Diagnosis History of pulmonary embolism - Primary Personal history of pulmonary embolism documented in this encounter Care Teams Fence Installer Relationship Specialty Start Date End Date Shari Mann PCP - General 07/12/12 10/07/14 documented as of this encounter
--- OUTSIDE RECORDS SUMMARY | 2022-06-02 16:08 | XMS_ITS | Encounter Summary ---
:1985 Author Organization [facility] Address [address] [place] [address] Care Team Providers Name Role Phone Mann, Shari Primary Care Provider Encounter Details Date Type Department Care Team Description 11/17/2012 Hospital Encounter [facility] Laborato sonu Clayton MD [address] [facility] [address] [place], [place] [address] [place], [place] [phone] (Wo rk) Social History Tobacco Use Types [...] Sig Dispensed Refills Start Date End Date LORazepam (ATIVAN PO) Take 0.5 mg by mouth 0 12/18/2013 3 times daily as needed. metroNIDAZOLE (METROGEL) Place 1 applicator 70 g 2 12/19/2012 0.75 % vaginal vaginally At gelIndications: BV Bedtime. (bacterial vaginosis) nitrofurantoin, Take 1 capsule by 14 capsule 0 11/18/2012 05 /01/2013 macrocrystal-monohydrate mouth 2 times daily. , (MACROBID) 100 MG capsuleIndications: UTI (urinary tract infection) documented as of this encounter Plan of Treatment Not on filedocumented as of this encounter Visit Diagnoses Not on filedocumented in this encounter Care Teams Chemist Internship Relationship Specialty Start Date End Date Shari Mann PCP - General 07/12/12 10/07/14 documented as of this encounter
--- OUTSIDE RECORDS SUMMARY | 2022-06-02 16:08 | XMS_ITS | Encounter Summary ---
:1985 Author Organization [place] Address [facility] [place] [address] Care Team Providers Name Role Phone Shari Mann Primary Care Provider Reason for Visit Reason Onset Date Comments UTI 11/17/2012 Other Encounter Details Date Type Department Care Team Description 11/17/2012 Telephone [facility] Nurse, U Wh[facility] UTI; [place] [address] [facility] Profession al [facility] [address] [facility] [address] [place] [phone] Social History Tobacco Use Types Packs/Day [...] Telephone Encounter - [place] Ramon RN - 11/18/2012 8:17 AM CDT Received message on voicemail from pt to send prescription to [facility]. Pt notified that this has been done. Telephone Encounter - Jose Guadalupe Chacko RN - 11/17/2012 5:05 PM CDT Attempted to reach patient multiple times and have left a vm to call back re: positive result. Will need to know which pharmacy to send the Rx to. Telephone Encounter - Neetu Jarvis RN - 11/17/2012 1:27 PM CDT Patient returned call. I confirmed that ua/uc has been ordered and she will have it done at [facility] today. She has been experiencing pain with urination since Wednesday. Will contact her with results. Telephone Encounter - Joselyn Costa RN - 11/17/2012 9:33 AM CDT VM left for pt to call nurse triage. Informed that urinalysis order was placed. Telephone Encounter - Joselyn Costa RN - 11/17/2012 9:31 AM CDT Message copied by JOSELYN COSTA on WedNov 17, 2012 9:31 AM ------ Message from: SONJA LUNDY Created: WedNov 17, 2012 8:48 AM Regarding: UTI Symptoms Contact: Pt called regarding some UTI symptoms. Pt was seen last Saturday 11/11 by Kirti Randhawa and was diagnosed with BV. Pt believes that now she has a UTI. Pt works at [employer] [employer] so if a Urine culture is to be ordered it can be sent to the Out pt lab there. Pt stated she prefers a Monistat (sp) prescription. Please call pt at [phone] to discuss - ok to leave detailed message. Thanks! Kristie documented in this encounter Plan of Treatment Not on filedocumented as of this encounter Procedures Procedure Name Priority Date/Time Associated Comments Diagnosis ROUTINE UA WITH Routine 11/17/2012 2:00 PM UTI (urinary tract Results for this MICROSCOPIC REFLEX TO CDT infection) proced ure are in CULTURE the results section. URINE CULTURE Routine 11/17/2012 2:00 PM Results for this CDT procedure are i n the results section. documented in this encounter Results Urine culture (11/17/2012 2:00 PM CDT) Component Value Ref Test Analysis Performed At [facility] Range Method Time Signature Specimen Midstream Urine [facility] Description [facility] Special Specimen received [facility] Requests in preservative MICROBIOLOGY Culture Micro >100,000 colonies/mL Escherichia coli [facility] <10,000 colonies/mL Non lactose fermenting gram negative r ods No further MICROBIOLOGY identification Susceptibility testing not routinely done Micro Report FINAL 11/20/2012 [facility] Status MICROBIOLOGY Specimen Anatomical Collection Method Collection Time Receive d Time (Source) Location / / Volume Laterality 11/17/2012 2:00 PM 3 3:16 CDT PM CDT Organism Antibiotic Method Susceptibility >100,000 colonies/ml Ampicillin <=2 Suscept ible ug/mL escherichia coli (ana) >100,000 colonies/ml Cefazolin <=4 Suscept ible ug/mL escherichia coli (ana) >100,000 colonies/ml Cefoxitin <=4 Suscept ible ug/mL escherichia coli (ana) >100,000 colonies/ml Ceftriaxone <=1 Suscept ible ug/mL escherichia coli (ana) >100,000 colonies/ml Ciprofloxacin <=0.25 Susc eptible ug/mL escherichia coli (ana) >100,000 colonies/ml Gentamicin <=1 Suscept ible ug/mL escherichia coli (ana) >100,000 colonies/ml Levofloxacin <=0.12 Susc eptible ug/mL escherichia coli (ana) >100,000 colonies/ml Nitrofurantoin <=16 Suscep tible ug/mL escherichia coli (ana) >100,000 colonies/ml Tobramycin <=1 Suscept ible ug/mL escherichia coli (ana) >100,000 colonies/ml Trimethoprim/Sulfamethoxazol <=1/19 Susceptible ug/mL escherichia coli (ana) e >100,000 colonies/ml Ampicillin/Sulbactam <=2 Shah sceptible ug/mL escherichia coli (ana) >100,000 colonies/ml Piperacillin/Tazo <=4 Susce ptible ug/mL escherichia coli (ana) >100,000 colonies/ml Cefepime <=1 Suscept ible ug/mL escherichia coli (ana) Idalmis Son MD LAB - MICRO GENERAL ORDERABL ES Performing Organization Address City/[facility]/ZIP Code Phon e Number [facility] [address] [place], [place] [id number] [place] [address] [facility] MICROBIOLOGY (ABNORMAL) Routine UA with Micro Reflex to Culture (11/17/2012 2:00 PM CDT) Component Value Ref Test Analysis Performed At [facility] gist Range Method Time Signature Color Urine Dark Brown [facility] Appearance Urine Slightly [facility] Cloudy [facility] Glucose Urine Negative NEG [facility] mg/dL [facility] Bilirubin Urine Moderate NEG [facility] This is an unconfirmed scre ening test result. A positive result may be false. (A) [facility] Ketones Urine Negative NEG [facility] mg/dL [facility] Specific [place] 1.021 1.003 - [facility] Urine 1.035 [facility] Blood Urine Negative NEG [facility] pH Urine 6.5 5.0 - [facility] 7.0 pH [facility] Protein Albumin 10 (A) NEG [facility] Urine mg/dL [facility] Urobilinogen 4.0 (H) 0.0 - [facility] mg/dL 2.0 [place] mg/dL [facility] Nitrite Urine Positive (A) NEG [facility] Leukocyte Negative NEG [facility] Esterase Urine [facility] Source Midstream [facility] Urine [facility] WBC Urine 7 (H) 0 - 2 [facility] /HPF [facility] RBC Urine 1 0 - 2 [facility] /HPF [facility] Bacteria Urine Many (A) NEG /HPF [facility] Squamous 22 (H) 0 - 1 [facility] Epithelial /HPF /HPF [facility] Transitional Epi 1 0 - 1 [facility] /HPF [facility] Mucous Urine Present (A) NEG /LPF [facility] Specimen Anatomical Collection Method Collection Time Receive d Time (Source) Location / / Volume Laterality Urine specimen 11/17/2012 2:00 PM 013 2:15 (specimen) CDT PM CDT Idalmis Son MD LAB - URINE ORDERABLES Performing Organization Address City/State/ZIP Code Phon e Number [facility] [address] [place] [address] [facility] documented in this encounter Visit Diagnoses Diagnosis UTI (urinary tract infection) - Primary Urinary tract infection, site not specif ied documented in this encounter Care Teams Kitchen And Bath Designer Relationship Specialty Start Date End Date Shari Mann PCP - General 07/12/12 10/07/14 documented as of this encounter
--- OUTSIDE RECORDS SUMMARY | 2022-06-02 16:08 | XMS_ITS | Encounter Summary ---
:1985 [facility] Address [address] [place] [address] Home Phone Mobile Phone Email Address Email Address Preferred Language Yi Marital Status Single Oriental Orthodox Affiliation Unknown Race White Ethnic Group Unknown Author Organization [place] Address [address] [place] [address] Care Team Providers Name Role Phone Shari Mann Primary Care Provider Reason for Visit Reason Onset Date Comments Anticoagulation 10/11/2012 Encounter Details Date Type Department Care Team Description 10/11/2012 Telephone [facility] Dmitri Zamora , Anticoagulation Anticoagulation Clin ic [facility] [address] [place], [place] [phone] [facility] [phone] [place] [address] [place] [phone] (Wo rk) Social History Tobacco Use Types Packs/Day Years Used Date Smoking Tobacco: Former Cigarettes 0.5 5 Quit : 07/19/2012 Smokeless Tobacco: Never Alcohol Use Standard Drinks/Week Comments Yes 0 (1 standard drink = 0.6 oz pure alcoho l) occasionally Sex Assigned at Date Recorded Not on file documented as of this encounter Miscellaneous Notes Telephone Encounter - Ted Pineda - 10/11/2012 3:04 PM CST Current Warfarin Regimen 5 mgs (1 @ 5 mg) M <---> 7.5 mgs (1?? @ 5 mg) [id number] Current INR Value 2.08 Desired Lab Goal Range 2.00 - 3.00 Assessment Ther Bleeding Episodes ... No Clotting Episodes ..... No Medication Changes No Diet Changes .............. No Health Changes ......... No New Recommended Warfarin Regimen: 5 mgs (1 @ 5 mg) M <---> 7.5 mgs (1?? @ 5 mg) [id number] Next Scheduled labs: 11/01/2012 Results Given To: left message for Logan Results Given By: Ted Pineda, Pharm D IV / [place] Zamora [facility] ET INSTALLATION SPECIALIST documented in this encounter Plan of Treatment Not on filedocumented as of this encounter Visit Diagnoses Not on filedocumented in this encounter Care Teams Heavy Equipment Supervisor Relationship Specialty Start Date End Date Shari Mann PCP - General 07/12/12 10/07/14 documented as of this encounter
--- OUTSIDE RECORDS SUMMARY | 2022-06-02 16:08 | XMS_ITS | Encounter Summary ---
:1985 Author Organization [facility] Address [address] [place] [address] Care Team Providers Name Role Phone Shari Mann Primary Care Provider Reason for Visit Reason Onset Date Comments Anticoagulation 10/25/2012 Encounter Details Date Type Department Care Team Description 10/25/2012 Telephone [facility] Saad Andres RN Anticoagulation Anticoagulation Clin [place] [phone] Social History Tobacco Use Types Packs/Day Years Used Date Smoking Tobacco: Former Cigarettes 0.5 5 Quit : 07/19/2012 Smokeless Tobacco: Never Alcohol Use Standard Drinks/Week Comments Yes 0 (1 standard drink = 0.6 oz pure alcoho l) occasionally Sex Assigned at Date Recorded Not on file documented as of this encounter Miscellaneous Notes Telephone Encounter - Saad Andres RN - 10/25/2012 3:46 PM CDT Current Warfarin Regimen 5 mgs (1 @ 5 mg) M <---> 7.5 mgs (1?? @ 5 mg) [id number] Current INR Value 2.32 Desired Lab Goal Range 2.00 - 3.00 Assessment Ther New Recommended Warfarin Regimen: 5 mgs (1 @ 5 mg) M <---> 7.5 mgs (1?? @ 5 mg) [id number] Next Scheduled labs: 11/22/2012 Results Given To: Left message at home number to call if changes health, meds, diet, dosing or missed doses Results Given By: SAAD ANDRES RN documented in this encounter Plan of Treatment Not on filedocumented as of this encounter Visit Diagnoses Not on filedocumented in this encounter Care Teams Dry Pan Feeder Relationship Specialty Start Date End Date Shari Mann PCP - General 07/12/12 10/07/14 documented as of this encounter
--- OUTSIDE RECORDS SUMMARY | 2022-06-02 16:08 | XMS_ITS | Encounter Summary ---
:1985 Author Organization [place] Address [facility] [place] [address] Care Team Providers Name Role Phone Shari Mann Primary Care Provider Reason for Visit Reason Onset Date Comments Patient Request 12/16/2012 BV med Encounter Details Date Type Department Care Team Description 12/16/2012 Telephone [facility] Women's Nurse, [facility] Patient Request (BV med) Clinic [address] Professional Bldg [facility] [address],[facility] [address] [place] [address] Social History Tobacco Use Types [...] Telephone Encounter - [place] Ramon RN - 12/16/2012 3:39 PM CDT Spoke with Kirti Trujillo who stated pt symptoms don't go together for BV and she needs to be seen in clinic. Tried to reach Logan but received voicemail. Left message that she needs to be seen and phone number given to schedule. Telephone Encounter - [place] Ramon RN - 12/16/2012 12:22 PM CDT Preferred pharmacy is OP pharmacy at [facility]. Telephone Encounter - [place] Ramon RN - 12/16/2012 12:15 PM CDT Spoke with Logan who stated she is having itching and 'fishy smell that's inside' and is requesting more medicine. Forwarding to Kirti Trujillo. Telephone Encounter - [place] Ramon RN - 12/16/2012 11:55 AM CDT Tried to reach Logan but received voicemail. Left message to call back. Telephone Encounter - [place] Ramon RN - 12/16/2012 11:54 AM CDT Message copied by [place] RAMON on WedDecember 16, 2012 11:54 AM ------ Message from: ALYSIA GALLAGHER Created: WedDecember 16, 2012 8:03 AM Contact: Pt is pretty sure that the bacterial vaginosis had prescribed. Pt is wondering if she can talk to someone and an Rx be called in for her. Otherwise if she absolutely have to come in she would like to male an appt for Wednesday. Pls call pt documented in this encounter Plan of Treatment Not on filedocumented as of this encounter Visit Diagnoses Not on filedocumented in this encounter Care Teams Oilseed Meat Presser Relationship Specialty Start Date End Date Shari Mann PCP - General 07/12/12 10/07/14 documented as of this encounter
--- OUTSIDE RECORDS SUMMARY | 2022-06-02 16:09 | XMS_ITS | Encounter Summary ---
:1985 Author Organization [place] Address [address] [place] [address] Care Team Providers Name Role Phone Johnathan Shari Primary Care Provider Encounter Details Date Type Department Care Team Description 08/10/[address] 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 documented in this encounter Results (ABNORMAL) INR (08/10/2012 8:44 AM [facility]) athologist Signature INR 3.01 (H) 0.86 - 1.14 [facility] LABS Specimen Anatomical Collection Method Collection Time Receive d Time (Source) Location / / Volume Laterality Blood specimen 08/10/2012 8:44 AM 012 8:45 (specimen) [facility] AM [facility] Patricia Moe APRN IMPROVEMENT SPEC LAB - BLOOD ORDERABLES Performing Organization Address City/State/ZIP Code Phon e Number [phone] [place] [address] LABS documented in this encounter Visit Diagnoses Diagnosis PE (pulmonary embolism) Other pulmonary embolism and infarction documented in this encounter Care Teams Configuration Management Administrator Relationship Specialty Start Date End Date Shari Mann PCP - General 07/12/12 10/07/14 documented as of this encounter
--- OUTSIDE RECORDS SUMMARY | 2022-06-02 16:09 | XMS_ITS | Encounter Summary ---
:1985 Author Organization [place] Address [address] [place] [address] Care Team Providers Name Role Phone Shari Mann Primary Care Provider Reason for Visit Reason Onset Date Comments Anticoagulation 08/23/2012 Encounter Details Date Type Department Care Team Description 08/23/2012 Telephone [facility] Saad Andres, RN Anticoagulation Anticoagulation Clin [place] [phone] Social History Tobacco Use Types Packs/Day Years Used Date Smoking Tobacco: Former Cigarettes 0.5 5 Quit : 07/19/2012 Smokeless Tobacco: Never Alcohol Use Standard Drinks/Week Comments Yes 0 (1 standard drink = 0.6 oz pure alcoho l) occasionally Sex Assigned at Date Recorded Not on file documented as of this encounter Miscellaneous Notes Telephone Encounter - Saad Andres RN - 08/23/2012 9:55 AM CST Current Warfarin Regimen 5 mgs (1 @ 5 mg) MWF <---> 7.5 mgs (1?? @ 5 mg) TuThSaSu Current INR Value 2.03 Desired Lab Goal Range 2.00 - 3.00 Assessment Ther New Recommended Warfarin Regimen: 5 mgs (1 @ 5 mg) MF <---> 7.5 mgs (1?? @ 5 mg) TuWThSaSu Next Scheduled labs: 09/06/2012 Results Given To: Left message to call if changes health, meds, diet, dosing or missed doses Results Given By: SAAD ANDRES RN CONDITIONER MACHINE documented in this encounter Plan of Treatment Not on filedocumented as of this encounter Visit Diagnoses Not on filedocumented in this encounter Care Teams Explosives Detonator Relationship Specialty Start Date End Date Shari Mann PCP - General 07/12/12 10/07/14 documented as of this encounter
--- OUTSIDE RECORDS SUMMARY | 2022-06-02 16:09 | XMS_ITS | Encounter Summary ---
:1985 Author Organization [place] Address [address] [place] [address] Care Team Providers Name Role Phone Shari Mann Primary Care Provider Reason for Visit Reason Onset Date Comments Anticoagulation 08/10/2012 Encounter Details Date Type Department Care Team Description 08/10/2012 Telephone [facility] Saad Andres, RN Anticoagulation Anticoagulation Clin [place] [phone] Social History Tobacco Use Types Packs/Day Years Used Date Smoking Tobacco: Former Cigarettes 0.5 5 Quit : 07/19/2012 Smokeless Tobacco: Never Alcohol Use Standard Drinks/Week Comments Yes 0 (1 standard drink = 0.6 oz pure alcoho l) occasionally Sex Assigned at Date Recorded Not on file documented as of this encounter Miscellaneous Notes Telephone Encounter - Saad Andres RN - 08/10/2012 11:10 AM CST Current Warfarin Regimen 5 mgs (1 @ 5 mg) MF <---> 7.5 mgs (1?? @ 5 mg) TuWThSaSu Current INR Value 3.01 Desired Lab Goal Range 2.00 - 3.00 Assessment Supra New Recommended Warfarin Regimen: 5 mgs (1 @ 5 mg) MWF <---> 7.5 mgs (1?? @ 5 mg) TuThSaSu Patient called to report she took 7.5 mg on Wednesday08/08/12 in error. She will continue taking 5 mg MF 7.5 mg all other days of week Next Scheduled labs: 08/17/2012 Results Given To: Left message at home number to [facility], [facility], diet, dosing or missed doses Results Given By: SAAD ANDRES RN RANCE BILLING SPECIALIST documented in this encounter Plan of Treatment Not on filedocumented as of this encounter Visit Diagnoses Not on filedocumented in this encounter Care Teams Rand Maker Relationship Specialty Start Date End Date Shari Mann PCP - General 07/12/12 10/07/14 documented as of this encounter
--- OUTSIDE RECORDS SUMMARY | 2022-06-02 16:09 | XMS_ITS | Encounter Summary ---
:1985 Author Organization [place] Address [address] [place] [address] Care Team Providers Name Role Phone Sahri Mann Primary Care Provider Encounter Details Date Type Department Care Team Description 07/28/2012 Orders Only [facility] Jeffry Ramirez PE (pulmonary [facility] [address] embo lism) (H) Laboratory 292 [address] [facility] [place], [place] [phone] Social History Tobacco Use Types Packs/Day Years [...] Date/Time Associated Diagnosis Comme nts INR Routine 07/28/2012 2:38 PM PE (pulmonary Results for this SUBSTATION TECHNICIAN embolism) (H) procedure are in the results section . documented in this encounter Results (ABNORMAL) INR (07/28/2012 2:38 PM SUBSTATION TECHNICIAN) P athologist Signature INR 2.16 (H) 0.86 - 1.14 [facility] LABS Specimen Anatomical Collection Method Collection Time Receive d Time (Source) Location / / Volume Laterality Blood specimen 07/28/2012 2:38 PM 012 2:39 (specimen) SUBSTATION TECHNICIAN PM SUBSTATION TECHNICIAN Patricia Moe APRN MANAGER FITNESS LAB - BLOOD ORDERABLES Performing Organization Address City/State/ZIP Code Phon e Number [facility] [address] [place], [place] [phone] [address] LABS documented in this encounter Visit Diagnoses Diagnosis PE (pulmonary embolism) Other pulmonary embolism and infarction documented in this encounter Care Teams Quill Picking Machine Operator Relationship Specialty Start Date End Date Shari Mann PCP - General 07/12/12 10/07/14 documented as of this encounter
--- OUTSIDE RECORDS SUMMARY | 2022-06-02 16:09 | XMS_ITS | Encounter Summary ---
:1985 Author Organization [place] Address [address] [place] [address] Care Team Providers Name Role Phone Shari Mnan Primary Care Provider Reason for Visit Reason Onset Date Comments Anticoagulation 07/22/2012 Encounter Details Date Type Department Care Team Description 07/22/2012 Telephone [facility] Isabel Dominguez, Anticoagulation Anticoagulation Clin ic RN [address] [place] [phone] Social History Tobacco Use Types Packs/Day Years Used Date Smoking Tobacco: Former Cigarettes 0.5 5 Quit : 07/19/2012 Smokeless Tobacco: Never Alcohol Use Standard Drinks/Week Comments Yes 0 (1 standard drink = 0.6 oz pure alcoho l) occasionally Sex Assigned at Date Recorded Not on file documented as of this encounter Miscellaneous Notes Telephone Encounter - Isabel Dominguez RN - 07/22/2012 1:15 PM CST Current Warfarin Regimen 5mg daily since 07/12 +Lovenox 100mg BID Current INR Value 1.93 result from 07/20 Desired Lab Goal Range 2.00 - 3.00 Assessment Sub Bleeding Episodes ... No Clotting Episodes ..... No Medication Changes No Diet Changes .............. No Health Changes ......... No New Recommended Warfarin Regimen: 5 mgs (1 @ 5 mg) [id number] (07/22/2012 - 7.5 mg; 07/23/2012 - 7.5 mg) +continue Lovenox Next Scheduled labs: 07/25/2012 Results Given To: message left on home number Results Given By: Isabel Dominguez RN ENT REGISTRATION SPECIALIST documented in this encounter Plan of Treatment Not on filedocumented as of this encounter Visit Diagnoses Not on filedocumented in this encounter Care Teams Bell Clerk Relationship Specialty Start Date End Date Shari Mann PCP - General 07/12/12 10/07/14 documented as of this encounter
--- OUTSIDE RECORDS SUMMARY | 2022-06-02 16:09 | XMS_ITS | Encounter Summary ---
:1985 Author Organization [place] Address [address] [place] [address] Care Team Providers Name Role Phone Shari Mann Primary Care Provider Encounter Details Date Type Department Care Team Description 08/02/2012 Orders Only [facility] Betito Vincent PA-C PE (pulmonary [facility] [address] [facility] embo lism) (H) Laboratory 713 [address] [place], [place] [phone] (Wo rk) Social History Tobacco Use [...] Date/Time Associated Diagnosis Comme nts INR Routine 08/02/2012 5:27 PM PE (pulmonary Results for this VACATION PLANNER embolism) (H) procedure are in the results section . documented in this encounter Results (ABNORMAL) INR (08/02/2012 5:27 PM VACATION PLANNER) athologist Signature INR 1.68 (H) 0.86 - 1.14 [facility] LABS Specimen Anatomical Collection Method Collection Time Receive d Time (Source) Location / / Volume Laterality Blood specimen 08/02/2012 5:27 PM 012 5:28 (specimen) VACATION PLANNER PM VACATION PLANNER Patricia Moe APRN HAND STAMPER LAB - BLOOD ORDERABLES Performing Organization Address City/State/ZIP Code Phon e Number [facility] [address] LABS documented in this encounter Visit Diagnoses Diagnosis PE (pulmonary embolism) Other pulmonary embolism and infarction documented in this encounter Care Teams Cnc Router Operator Relationship Specialty Start Date End Date Shari Mann PCP - General 07/12/12 10/07/14 documented as of this encounter
--- OUTSIDE RECORDS SUMMARY | 2022-06-02 16:09 | XMS_ITS | Encounter Summary ---
:1985 Author Organization [place] Address [address] [place] [address] Care Team Providers Name Role Phone Shari Mann Primary Care Provider Encounter Details Date Type Department Care Team Description 09/19/2012 Orders Only [facility] Betito Vincent PA-C PE (pulmonary [facility] [address] [facility] embo lism) (H) Laboratory [address] [place] [phone] (Wo rk) Social History Tobacco Use [...] Date/Time Associated Diagnosis Comme nts INR Routine 09/19/2012 1:07 PM PE (pulmonary Results for this FRONT END SPECIALIST embolism) (H) procedure are in the results section . documented in this encounter Results (ABNORMAL) INR (09/19/2012 1:07 PM FRONT END SPECIALIST) athologist Signature INR 2.39 (H) 0.86 - 1.14 [facility] LABS Specimen Anatomical Collection Method Collection Time Receive d Time (Source) Location / / Volume Laterality Blood specimen 09/19/2012 1:07 PM 013 1:08 (specimen) FRONT END SPECIALIST PM FRONT END SPECIALIST Patricia Moe APRN SENIOR RESERVOIR ENGINEER LAB - BLOOD ORDERABLES Performing Organization Address City/State/ZIP Code Phon e Number [facility] [address] LABS documented in this encounter Visit Diagnoses Diagnosis PE (pulmonary embolism) Other pulmonary embolism and infarction documented in this encounter Care Teams Weigh Boss Relationship Specialty Start Date End Date Shari Mann PCP - General 07/12/12 10/07/14 documented as of this encounter
--- OUTSIDE RECORDS SUMMARY | 2022-06-02 16:09 | XMS_ITS | Encounter Summary ---
:1985 Author Organization [place] Address [address] [place] [address] Care Team Providers Name Role Phone Shari Mann Primary Care Provider Encounter Details Date Type Department Care Team Description 08/23/2012 Orders Only [facility] Sunitha Yeison PE (pulmon [facility] MD Umer embolism) (H) Laboratory [address] [facility] [address] [place] [phone] (Wo rk) Social History Tobacco Use Types [...] Date/Time Associated Diagnosis Comme nts INR Routine 08/23/2012 9:00 AM PE (pulmonary Results for this TILTING HEAD BAND SAWYER embolism) (H) procedure are in the results section . documented in this encounter Results (ABNORMAL) INR (08/23/2012 9:00 AM TILTING HEAD BAND SAWYER) P athologist Signature INR 2.03 (H) 0.86 - 1.14 [facility] LABS Specimen Anatomical Collection Method Collection Time Receive d Time (Source) Location / / Volume Laterality Blood specimen 08/23/2012 9:00 AM 013 9:01 (specimen) TILTING HEAD BAND SAWYER AM TILTING HEAD BAND SAWYER Patricia Moe APRN STAGE DIRECTOR LAB - BLOOD ORDERABLES Performing Organization Address City/State/ZIP Code Phon e Number [facility] [address] [place], [place] [phone] [place] [address] LABS documented in this encounter Visit Diagnoses Diagnosis PE (pulmonary embolism) Other pulmonary embolism and infarction documented in this encounter Care Teams Auto Damage Estimator Relationship Specialty Start Date End Date Shari Mann PCP - General 07/12/12 10/07/14 documented as of this encounter
--- OUTSIDE RECORDS SUMMARY | 2022-06-02 16:09 | XMS_ITS | Encounter Summary ---
:1985 Author Organization [place] Address [address] [place] [address] Care Team Providers Name Role Phone Shari Mann Primary Care Provider Encounter Details Date Type Department Care Team Description 08/29/2012 Medical Correspondence INTERFACED REPORT Unknown, CONSENT FOR Provider COLLECTION OF GENETIC INFORMATION Social History Tobacco Use Types Packs/Day Years [...] on filedocumented in this encounter Care Teams Repair Tech Relationship Specialty Start Date End Date Shari Mann PCP - General 07/12/12 10/07/14 documented as of this encounter
--- OUTSIDE RECORDS SUMMARY | 2022-06-02 16:09 | XMS_ITS | Encounter Summary ---
:1985 Author Organization [place] Address [address] [place] [address] Care Team Providers Name Role Phone Shari Mann Primary Care Provider Encounter Details Date Type Department Care Team Description 09/05/2012 Orders Only [facility] Betito Vincent PA-C PE (pulmonary [facility] [address] [facility] embo lism) (H) Laboratory 713 [address] [place], [place] [phone] (Wo rk) Social History Tobacco Use [...] Date/Time Associated Diagnosis Comme nts INR Routine 09/05/2012 5:30 PM PE (pulmonary Results for this RUSSIAN LANGUAGE INSTRUCTOR embolism) (H) procedure are in the results section . documented in this encounter Results (ABNORMAL) INR (09/05/2012 5:30 PM RUSSIAN LANGUAGE INSTRUCTOR) athologist Signature INR 1.79 (H) 0.86 - 1.14 [facility] LABS Specimen Anatomical Collection Method Collection Time Receive d Time (Source) Location / / Volume Laterality Blood specimen 09/05/2012 5:30 PM 013 5:31 (specimen) RUSSIAN LANGUAGE INSTRUCTOR PM RUSSIAN LANGUAGE INSTRUCTOR Patricia Moe APRN BANQUET CHEF LAB - BLOOD ORDERABLES Performing Organization Address City/State/ZIP Code Phon e Number [facility] [address] LABS documented in this encounter Visit Diagnoses Diagnosis PE (pulmonary embolism) Other pulmonary embolism and infarction documented in this encounter Care Teams Vehicle Glass Technician Relationship Specialty Start Date End Date Shari Mann PCP - General 07/12/12 10/07/14 documented as of this encounter
--- OUTSIDE RECORDS SUMMARY | 2022-06-02 16:09 | XMS_ITS | Encounter Summary ---
:1985 Author Organization [place] Address [address] [place] [address] Care Team Providers Name Role Phone Shari Mann Primary Care Provider Reason for Visit Reason Onset Date Comments Anticoagulation 08/15/2012 Encounter Details Date Type Department Care Team Description 08/15/2012 Telephone [facility] Tiffanie Fernandes, Anticoagulation Anticoagulation Clin ic [place] [phone] Social History Tobacco Use Types Packs/Day Years Used Date Smoking Tobacco: Former Cigarettes 0.5 5 Quit : 07/19/2012 Smokeless Tobacco: Never Alcohol Use Standard Drinks/Week Comments Yes 0 (1 standard drink = 0.6 oz pure alcoho l) occasionally Sex Assigned at Date Recorded Not on file documented as of this encounter Miscellaneous Notes Telephone Encounter - Tiffanie Fernandes, [facility] - 08/15/2012 9:16 AM CST Current Warfarin Regimen 5 mg MF <---> 7.5 mg TuWThSaSu Current INR Value 2.38 Desired Lab Goal Range 2.00 - 3.00 Assessment Ther Bleeding Episodes ... No Clotting Episodes ..... No Medication Changes No Diet Changes .............. No Health Changes ......... No New Recommended Warfarin Regimen: 5 mg MF <---> 7.5 mg TuWThSaSu Next Scheduled labs: 08/22/12 Results Given To: left message Results Given By: Tiffanie Fernandes PHARMD COORDINATOR documented in this encounter Plan of Treatment Not on filedocumented as of this encounter Visit Diagnoses Not on filedocumented in this encounter Care Teams Scrap Worker Relationship Specialty Start Date End Date Shari Mann PCP - General 07/12/12 10/07/14 documented as of this encounter
--- OUTSIDE RECORDS SUMMARY | 2022-06-02 16:09 | XMS_ITS | Encounter Summary ---
:1985 Author Organization [facility] Address [address] [place] [address] Care Team Providers Name Role Phone Mann, Shari Primary Care Provider Reason for Referral - Closed Specialty Diagnoses / Procedures Referred By Contact Refer red To Contact Diagnoses History of pulmonary embolism Betito Vincent PA-C [address] [facility] [address] [facility] [address] [place], [place] [address] Referral ID Status Reason Start Date Expiration Date Visits Requ ested Visits Authorized [id number] Closed 07/22/2012 01/18/2013 1 1 [facility] RN Reason for Visit Reason Comments Hematology Patient with recent pulmonar y embolism here for hypercoagulable work up Encounter Details Date Type Department Care Team Description 07/22/2012 Office Visit [facility] Betito Vincent Histor y of pulmonary and Clotting Disorde rs PA-C embolism (Primary Dx) 6th Floor, Clinic [address]B [address] [place] [facility] [address] [place] [address] [place] [address] [place], [place] [phone] (Work) [phone] Social History Tobacco Use Types Packs/Day Years Used Date Smoking Tobacco: Former Cigarettes 0.5 5 Quit : 07/19/2012 Smokeless Tobacco: Never Alcohol Use Standard Drinks/Week Comments Yes 0 (1 standard drink = 0.6 oz pure alcoho l) occasionally Sex Assigned at Date Recorded Not on file documented as of this encounter Progress Notes Betito Vincent PA-C - 08/29/2012 4:48 PM CST [facility] RN Betito Vincent PA-C - 08/29/2012 4:47 PM CST [facility] RN Betito Vincent PA-C - 07/22/2012 12:50 PM CST [facility] Out[facility] Visit Note: Patient: Logan Arredondo : 1985 ADRIANA: July 22, 2012 Location: [facility] Reason: Recent bilateral pulmonary embolism. HPI: This is a 27 year old female who has a history of anxiety disorder, who recently was found to have bilateral pulmonary embolism, presents to clinic today after her hospitalization to discuss anticoagulation therapy and management. 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 On 07/12/2012,she woke up with some left sided shoulder pain and some chest pain. 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 She continued with her work and started to experience increase shortness of breath that accompanied with continue increase chest pain. Cherry Cline CNP at the primary care clinic saw her and eventually she was accompanied to the emergency department for further evaluation. At the emergency department, she was found to have a high initial suspicion of pulmonary embolic event. A CT scan confirmed bilateral pulmonary embolism with possible infarct. She was admitted and was started on Heparin and subsequently discharged on Warfarin with Lovenox bridging. She has remained onLovenox at 100 mg SubQ BID and Warfarin at 5 mg PO Qday since her discharge on 07/14/2012. She is doing well on this regimen so far. She had her INR checked once at [place] (her primary care physician) office and once here at [facility] on 07/20/2012 (which was 1.93). Her dosing of Warfarin has not been changed. She reports one episode of hemoptysis with just small amount of blood tinge sputum on 11/2011. Otherwise, she denies any other bleeding complications. She does not have a complete hypercoagulable workup done yet. She reports that she has been on estrogen containing OCP since she was 18 years of age. However, shehas been using her current brand of OCP for the past 2 years. 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 She smokes about 1/2 a pack a day prior to the pulmonary embolic event. Since the PE event,she has stopped estrogen and quit smoking, for which we congratulate her. She denies any other provoking event leading up to her pulmonary embolic event. PmHx: Past Medical History Diagnosis Date ??? Anxiety Pulmonary embolism as above. Medication: Current Outpatient Prescriptions Medication ??? enoxaparin (LOVENOX) 100 MG/ML SOLN ??? oxyCODONE-acetaminophen (PERCOCET) 5-325 MG per tablet ??? warfarin (COUMADIN) 5 MG tablet ??? LORazepam (ATIVAN PO) Allergies: Allergies Allergen Reactions ??? Estrogens Patient had estrogen associated PE Social History: Quit smoking since her PE event. Denies any significant alcohol use. No illicit drug use. 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 Family History: She has no siblings. Parents has no history of venous thromboembolism. Her maternal cousin, who was in his 20's suffered a pulmonary embolic event while hiking in [place]. ROS: Denies any shortness of breath. No chest pain. Denies any fever. She did have one very minor episodeof hemoptysis 2 days ago. None for the past 2 days. Denies any other bleeding issues. Denies any nose bleed. No gum bleeding. Denies any hematuria or blood in stools. Objective: Pleasant 27 year old female in no acute distress. Vitals: BP 125/88, P 88, Wt 100kg. Exam: Complete exam is not performed today. Imaging: CT Chest on 07/12/2012: Multiple bilateral lower lobe segmental and subsegmental pulmonary emboli with an area of pulmonary infarction in the left lung base and possible smaller area of pulmonary infarction in the posterior right lung base. Hepatomegaly. Ultrasound of the lower extremity 07/12/2012: The deep venous system bilaterally was well displayed. There is good flow, appropriate compressibility, and augmentation seen. There is no evidence of deep venous thrombosis in either lower extremity. Assessment: In summary, Logan is a 27 year old female who was found to have bilateral pulmonary embolism back about one week ago, presents to clinic today to discuss anticoagulation therapy. Her venous thromboembolic event was likely provoked by estrogen. At the time, she was also smoking at the time, which is a slight provoking factor for thromboembolic event. She does also have a family history of VTE with her maternal first cousin with a pulmonary embolism in his 20's. Hence there is a concern of possible inherited thrombophilia. Diagnosis: 1. 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 2. Family history of venous thromboembolism. Plan: We have a long discussion with Logan today in regard to our plan and recommendation. We explain to her that her venous thromboembolic event was likely estrogen associated. In accordance to current Chestguidelines, a 3 months duration of anticoagulation therapy is recommended. She will continue with Cipriano enox and Warfarin until her INR reaches 2.0-3.0 on two consecutive times, then discontinue Lovenox. Her INR goal is 2.0-3.0. We will have her established care with the [facility] INR monitoring clinic (Referral sent via [employer]). We recommend that she should avoid the use of estrogen containing products in the future. We advisedagainst Logan to become for at least the next 3-6 months as this increase her risk of recurrent thromboembolic event. We discuss alternative contraceptive methods with her includin) Barrier method, 2) Progesterone only containing OCP and 3) Mirena IUD. There methods do not have increase risk of thromboembolism. She is instructed to call our center immediately if she should find herself while on Warfarin. If she does find herself while she is still on anticoagulation therapy, she will need full intensity treatment dose of Lovenox for the duration of the therapy and likely 3 months post . We will complete a hypercoagulable workup on her given her positive family history of thromboembolism. She is given our center's contact information and is instructed to call if she should have any further questions or concerns. Otherwise, we will plan on seeing her back in 3 months time. Patient was seen along with Jessi Bardales, nurse clinician. Patient understands and agrees with the above plan and recommendation. Total Time Spent: 45 minutes, over 50% of which was spent on counseling the patient and coordination of care. Betito Vincent PA-C, MPAS Physician Manuscripts Archivist [facility]. [facility]. CC: Primary care physician. [facility] RN documented in this encounter Nursing Notes 07/22/2012 12:00 PM CST >> JESSI BARDALES RN WedJul 22, 2012 4:01 PM Teaching Flowsheet Relevant Diagnosis: Pulmonary embolism identified 07/12/2012 Teaching Topic: Plan for anticoagulation Person(s) involved in teaching: Patient Motivation Level: Asks Questions: Yes Eager to Learn: Yes Cooperative: Yes Receptive (willing/able to accept information): Yes Patient demonstrates understanding of the following: Reason for the appointment, diagnosis and treatment plan: Yes Knowledge of proper use of medications and conditions for which they are ordered (with special attention to potential side effects or drug interactions): Yes Which situations necessitate calling provider and whom to contact: Yes Educated patient about the signs, symptoms of and risk factors for venous thrombosis (VTE). Genetic counselor has contacted patient and a pedigree was developed. This was scanned into the chart. Patient educated about benefits and potential complications of anticoagulation. Gave the following handout to the patient: Keeping yourself Safe on Blood Thinners, What You Should Know About Your Diet and Warfarin) Pharmacist???s Letter. Orders completed and referral made to the [facility] for INR monitoring. Patient verbalized understanding of the above information. They deny further questions at this time.Patient provided with a copy of the [facility] brochure, with contactnumbers for staff, and were encouraged to call with future questions and concerns. . documented in this encounter Plan of Treatment Scheduled Referrals Name Type Priority Associated Diagnoses Order S chedule INR CLINIC REFERRAL Referral Routine History of pulmonary Ordered: 07/22/2012 embolism documented as of this encounter Visit Diagnoses Diagnosis History of pulmonary embolism - Primary Personal history of pulmonary embolism documented in this encounter Care Teams Nurses Director Relationship Specialty Start Date End Date Shari Mann PCP - General 07/12/12 10/07/14 documented as of this encounter
--- OUTSIDE RECORDS SUMMARY | 2022-06-02 16:09 | XMS_ITS | Encounter Summary ---
:1985 Author Organization [facility] Address [address] [place] [address] Care Team Providers Name Role Phone Shari Mann Primary Care Provider Encounter Details Date Type Department Care Team Description 08/15/2012 Orders Only [facility] Betito Vincent PA-C PE (pulmonary [facility] [address] [facility] embo lism) (H) Laboratory [address] [place], [place] [phone] (Wo rk) Social History Tobacco Use [...] Date/Time Associated Diagnosis Comme nts INR Routine 08/15/2012 8:43 AM PE (pulmonary Results for this COIL BINDER embolism) (H) procedure are in the results section . documented in this encounter Results (ABNORMAL) INR (08/15/2012 8:43 AM COIL BINDER) athologist Signature INR 2.38 (H) 0.86 - 1.14 [facility] Specimen Anatomical Collection Method Collection Time Receive d Time (Source) Location / / Volume Laterality Blood specimen 08/15/2012 8:43 AM 012 8:44 (specimen) COIL BINDER AM COIL BINDER Patricia Moe APRN HAT PRESSER LAB - BLOOD ORDERABLES Performing Organization Address City/State/ZIP Code Phon e Number [facility] [address] LABS documented in this encounter Visit Diagnoses Diagnosis PE (pulmonary embolism) Other pulmonary embolism and infarction documented in this encounter Care Teams Qa Automation Developer Relationship Specialty Start Date End Date Shari Mann PCP - General 07/12/12 10/07/14 documented as of this encounter
--- OUTSIDE RECORDS SUMMARY | 2022-06-02 16:09 | XMS_ITS | Encounter Summary ---
:1985 Author Organization [facility] Address [address] [place] [address] Care Team Providers Name Role Phone Shari Mann Primary Care Provider Reason for Visit Reason Onset Date Comments Anticoagulation 07/25/2012 Encounter Details Date Type Department Care Team Description 07/25/2012 Telephone [facility] Tiffanie Fernandes, Anticoagulation Anticoagulation Clin [place] [phone] Social History Tobacco Use Types Packs/Day Years Used Date Smoking Tobacco: Former Cigarettes 0.5 5 Quit : 07/19/2012 Smokeless Tobacco: Never Alcohol Use Standard Drinks/Week Comments Yes 0 (1 standard drink = 0.6 oz pure alcoho l) occasionally Sex Assigned at Date Recorded Not on file documented as of this encounter Miscellaneous Notes Telephone Encounter - Tiffanie Fernandes, [facility] - 07/25/2012 2:07 PM CST Current Warfarin Regimen 5 mg [id number] (07/22/2012 - 7.5 mg; 07/23/2012 - 7.5 mg) + Lovenox Current INR Value 2.37 Desired Lab Goal Range 2.00 - 3.00 Assessment Ther Bleeding Episodes ... No Clotting Episodes ..... No Medication Changes No Diet Changes .............. No Health Changes ......... No New Recommended Warfarin Regimen: 5 mg / 7.5 mg /5 mg and STOP Lovenox Next Scheduled labs: 07/28/12 Results Given To: left message Results Given By: Tiffanie Fernandes PHARMD [employer] documented in this encounter Plan of Treatment Not on filedocumented as of this encounter Visit Diagnoses Not on filedocumented in this encounter Care Teams Project Management Instructor Relationship Specialty Start Date End Date Shari Mann PCP - General 07/12/12 10/07/14 documented as of this encounter
--- OUTSIDE RECORDS SUMMARY | 2022-06-02 16:09 | XMS_ITS | Encounter Summary ---
:1985 [facility] Address [address] [place] [address] Home Phone Mobile Phone Email Address Email Address Preferred Language Bengali Marital Status Single Mu-Ism Affiliation Unknown Race White Ethnic Group Unknown Author Organization [facility] Address [address] [place] [address] Care Team Providers Name Role Phone Shari Mann Primary Care Provider Reason for Visit Reason Onset Date Comments Anticoagulation 07/28/2012 Encounter Details Date Type Department Care Team Description 07/28/2012 Telephone [facility] Dmitri Zamora , Anticoagulation Anticoagulation Clin ic [facility] [address] [place], [place] [phone] [facility] [phone] [place] [address] [address] [place], [place] [phone] (Wo rk) Social History Tobacco Use Types Packs/Day Years Used Date Smoking Tobacco: Former Cigarettes 0.5 5 Quit : 07/19/2012 Smokeless Tobacco: Never Alcohol Use Standard Drinks/Week Comments Yes 0 (1 standard drink = 0.6 oz pure alcoho l) occasionally Sex Assigned at Date Recorded Not on file documented as of this encounter Miscellaneous Notes Telephone Encounter - Cathie Hutchinson - 07/28/2012 4:13 PM CST Current Warfarin Regimen 5 mg / 7.5 mg / 5 mg and STOP Lovenox Current INR Value 2.16 Desired Lab Goal Range 2.00 - 3.00 Assessment Ther Bleeding Episodes ... No Clotting Episodes ..... No Medication Changes No Diet Changes .............. No Health Changes ......... No New Recommended Warfarin Regimen: Alternatin mg (1 @ 5 mg) & 7.5 mg (1?? @ 5 mg) <--->Alternatin mg (1 @ 5 mg) & 7.5 mg (1?? @ 5 mg) [id number] Next Scheduled labs: 08/02/2012 Results Given To: Left message for Logan. Instructed her to contact us if changes in diet/meds/health/warfarin dosing or missed any dose Results Given By: Cathie Hutchinson PharmD IV student/Acosta Zamora [facility] EMENT CLERKS MANAGER documented in this encounter Plan of Treatment Not on filedocumented as of this encounter Visit Diagnoses Not on filedocumented in this encounter Care Teams Gun Stock Checker Relationship Specialty Start Date End Date Shari Mann PCP - General 07/12/12 10/07/14 documented as of this encounter
--- OUTSIDE RECORDS SUMMARY | 2022-06-02 16:09 | XMS_ITS | Encounter Summary ---
:1985 Author Organization [facility] Address [address] [place] [address] Care Team Providers Name Role Phone Shari Mann Primary Care Provider Reason for Visit Reason Onset Date Comments Anticoagulation 08/03/2012 Encounter Details Date Type Department Care Team Description 08/03/2012 Telephone [facility] Isabel Dominguez, Anticoagulation Anticoagulation Clin ic RN [address] [place] [phone] Social History Tobacco Use Types Packs/Day Years Used Date Smoking Tobacco: Former Cigarettes 0.5 5 Quit : 07/19/2012 Smokeless Tobacco: Never Alcohol Use Standard Drinks/Week Comments Yes 0 (1 standard drink = 0.6 oz pure alcoho l) occasionally Sex Assigned at Date Recorded Not on file documented as of this encounter Miscellaneous Notes Telephone Encounter - Isabel Dominguez RN - 08/03/2012 1:08 PM CST Current Warfarin Regimen Alternatin mg (1 @ 5 mg) & 7.5 mg (1?? @ 5 mg) <---> Alternatin mg (1 @ 5 mg) & 7.5 mg (1?? @ 5 mg) [id number] Current INR Value 1.75 Desired Lab Goal Range 2.00 - 3.00 Assessment Ther Bleeding Episodes ... No Clotting Episodes ..... No Medication Changes No Diet Changes .............. No Health Changes ......... No New Recommended Warfarin Regimen: 5 mgs (1 @ 5 mg) MF <---> 7.5 mgs (1?? @ 5 mg) [id number] Next Scheduled labs: 08/10/2012 Results Given To: Logan Results Given By: Isabel Dominguez RN R BLENDER documented in this encounter Plan of Treatment Not on filedocumented as of this encounter Visit Diagnoses Not on filedocumented in this encounter Care Teams Computator Relationship Specialty Start Date End Date Shari Mann PCP - General 07/12/12 10/07/14 documented as of this encounter
--- OUTSIDE RECORDS SUMMARY | 2022-06-02 16:09 | XMS_ITS | Encounter Summary ---
:1985 Author Organization [facility] Address [address] [place] [address] Care Team Providers Name Role Phone Shari Mann Primary Care Provider Reason for Visit Reason Onset Date Comments Anticoagulation 09/06/2012 Encounter Details Date Type Department Care Team Description 09/06/2012 Telephone [facility] Isabel Dominguez, Anticoagulation Anticoagulation Clin ic RN [address] [place] [phone] Social History Tobacco Use Types Packs/Day Years Used Date Smoking Tobacco: Former Cigarettes 0.5 5 Quit : 07/19/2012 Smokeless Tobacco: Never Alcohol Use Standard Drinks/Week Comments Yes 0 (1 standard drink = 0.6 oz pure alcoho l) occasionally Sex Assigned at Date Recorded Not on file documented as of this encounter Miscellaneous Notes Telephone Encounter - Isabel Dominguez RN - 09/06/2012 9:11 AM CST Current Warfarin Regimen 5 mgs (1 @ 5 mg) MF <---> 7.5 mgs (1?? @ 5 mg) TuWThSaSu Current INR Value 1.79 Desired Lab Goal Range 2.00 - 3.00 Assessment Sub Bleeding Episodes ... No Clotting Episodes ..... No Medication Changes No Diet Changes .............. No Health Changes ......... No New Recommended Warfarin Regimen: 5 mgs (1 @ 5 mg) M <---> 7.5 mgs (1?? @ 5 mg) [id number] Next Scheduled labs: 09/20/2012 Results Given To: message left Results Given By: Isabel Dominguez RN GORY DIRECTOR documented in this encounter Plan of Treatment Not on filedocumented as of this encounter Visit Diagnoses Not on filedocumented in this encounter Care Teams Account Director Relationship Specialty Start Date End Date Shari Mann PCP - General 07/12/12 10/07/14 documented as of this encounter
--- OUTSIDE RECORDS SUMMARY | 2022-06-02 16:09 | XMS_ITS | Encounter Summary ---
:1985 Author Organization [facility] Address [address] [place] [address] Care Team Providers Name Role Phone Shari Mann Primary Care Provider Reason for Visit Reason Onset Date Comments Anticoagulation 09/19/2012 Encounter Details Date Type Department Care Team Description 09/19/2012 Telephone [facility] Saad Andres RN Anticoagulation Anticoagulation Clin [place] [phone] Social History Tobacco Use Types Packs/Day Years Used Date Smoking Tobacco: Former Cigarettes 0.5 5 Quit : 07/19/2012 Smokeless Tobacco: Never Alcohol Use Standard Drinks/Week Comments Yes 0 (1 standard drink = 0.6 oz pure alcoho l) occasionally Sex Assigned at Date Recorded Not on file documented as of this encounter Miscellaneous Notes Telephone Encounter - Saad Andres RN - 09/19/2012 4:54 PM CST Current Warfarin Regimen 5 mgs (1 @ 5 mg) M <---> 7.5 mgs (1?? @ 5 mg) [id number] Current INR Value 2.39 Desired Lab Goal Range 2.00 - 3.00 Assessment Ther New Recommended Warfarin Regimen: 5 mgs (1 @ 5 mg) M <---> 7.5 mgs (1?? @ 5 mg) [id number] Next Scheduled labs: 10/11/2012 Results Given To: Left message to call if changes health, meds, diet, dosing, or missed doses Results Given By: SAAD ANDRES RN ER/WELDER documented in this encounter Plan of Treatment Not on filedocumented as of this encounter Visit Diagnoses Not on filedocumented in this encounter Care Teams Slab Lifting Engineer Relationship Specialty Start Date End Date Shari Mann PCP - General 07/12/12 10/07/14 documented as of this encounter
--- OUTSIDE RECORDS SUMMARY | 2022-06-02 16:09 | XMS_ITS | Encounter Summary ---
:1985 [facility] Address [address] [place] [address] Home Phone Mobile Phone Email Address Email Address Preferred Language Hungarian Marital Status Single Muslim Affiliation Unknown Race White Ethnic Group Unknown Author Organization [facility] Address [address] [place] [id number] Care Team Providers Name Role Phone Shari Mann Primary Care Provider Encounter Details Date Type Department Care Team Description 07/25/2012 Orders Only [facility] Betito Vincent PA-C PE (pulmonary embolism) (H); [facility] [address] Hist ory of pulmonary embolism Laboratory [address] [place] [phone] (Wo rk) Social History Tobacco Use Types Packs/Day Years Used Date Smoking Tobacco: Former Cigarettes 0.5 5 Quit : 07/19/2012 Smokeless Tobacco: Never Alcohol Use Standard Drinks/Week Comments Yes 0 (1 standard drink = 0.6 oz pure alcoho l) occasionally Sex Assigned at Date Recorded Not on file documented as of this encounter Plan of Treatment Pending Results Name Type Priority Associated Diagnoses Date/Ti me 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 PROTEIN S ANTIGEN Routine 07/25/2012 12:53 History of Result s for this FREE [facility] [employer] pulmonary embolism procedure are in the results section. PROTEIN C CHROMOGENIC Routine 07/25/2012 12:53 History of Re sults for this [facility] [employer] pulmonary embolism procedure are in the results section. FACTOR 5 LEIDEN Routine 07/25/2012 12:53 History of MUTATION ANALYSIS [facility] [employer] pulmonary embolism ANTITHROMBIN III Routine 07/25/2012 12:53 History of Results for this [facility] [employer] pulmonary embolism procedure are in the results section. FACTOR 2 AND 5 Routine 07/25/2012 12:40 Results f or this MUTATION ANALYSIS [facility] [employer] procedure are in the results section. documented in this encounter Results Antithrombin III (07/25/2012 12:53 PM [employer]) Analysis Performed At Patho logist Time Signature Antithrombin III 90 83 - 125 % [facility] [facility] Specimen Anatomical Collection Method Collection Time Receive d Time (Source) Location / / Volume Laterality Blood specimen 07/25/2012 12:53 2 (specimen) [facility] [employer] 12:54 [facility] [employer] Betito Vincent PA-C LAB - BLOOD ORDERABLES Performing Organization Address City/State/ZIP Code Phon e Number [facility] [address] [place], [place] [id number] [place] [address] LABS (ABNORMAL) Protein C chromogenic (07/25/2012 12:53 PM [employer]) Analysis Performed At Patho logist Time Signature Prot C 49 (L) 70 - 130 % [facility] [employer] [facility] LABS Comment: (Note) This patient has a decreased Protein C l evel indicating congenital or acquired Protein C deficiency. ??Acquire d causes of Protein C deficiency include warfarin, vitamin K d eficiency, acute thrombotic event, liver disease, sepsis, and L-aspa raginase therapy. ??This specimen has a prolonged INR suggesting warfarin therapy. If the patient is on warfarin, recommend repeat testing with a normal INR after warfarin has been discontinued at least for 14 days. Clinical correlation is recommended. ??Recommend repeat testing to confirm these findings. ??Family studies may als o be helpful. Maritza Royal M.D. ??[phone] . 07/26/2012, 13:06 Specimen Anatomical Collection Method Collection Time Receive d Time (Source) Location / / Volume Laterality Blood specimen 07/25/2012 12:53 2 (specimen) [facility] [employer] 12:54 [facility] [employer] Betito Y Carl[facility] LAB - BLOOD ORDERABLES Performing Organization Address City/State/ZIP Code Phon e Number [facility] [address] [place] [address] [facility] LABS (ABNORMAL) Protein S free (07/25/2012 12:53 PM [employer]) athologist Signature Protein S Free 54 (L) 55 - 125 % [facility] LABS Comment: Analyte Specific Reagents (ASRs) are use d in many laboratory tests necessary for standard medical care and generally do not require FDA approval. ??This test was developed and its performance character istics determined by [facility]. ? ?It has not been cleared or approved by the [place] Food and Drug Administration. (Note) This patient has a decreased free Protei n S level indicating congenital or acquired Protein S deficie ncy. Acquired causes of Protein S deficiency include warfarin, v itamin K deficiency, recent thrombosis, acute inflammatory disease, liver disease, nephrotic syndrome, TTP, , L-asparaginase therapy, and estrogen containing therapy such as oral contrace ptives (OCP) therapy. ??This specimen has a prolonged INR suggesting warfarin effect. ??If the patient is on warfarin, recommend repeat testing with a normal INR after warfarin has been discontinued for at least 30 days. ??Clinical correlation is recommended. ??Recommend repeat testing to confirm these findings. ??Family studies may als o be helpful. Maritza Royal M.D. ??[phone] . 07/26/2012, 13:07 CORRECTED ON 07/26 AT 1437: PREVIOUSLY R EPORTED 54 Analyte Specific Reagents (ASRs) are used in many laboratory test s necessary for standard medical care and generally do not require FDA approv al. ??This test was developed and its performance characteristics determined by [facility]. ??It has not bee n cleared or approved by the [place] Food and Drug Administration. Specimen Anatomical Collection Method Collection Time Receive d Time (Source) Location / / Volume Laterality Blood specimen 07/25/2012 12:53 2 (specimen) [facility] [employer] 12:54 PM [employer] Betito Vincent PA-C LAB - BLOOD ORDERABLES Performing Organization Address City/[facility]/ZIP Code Phon e Number [facility] [address] LABS (ABNORMAL) INR (07/25/2012 12:53 PM [employer]) P athologist Signature INR 2.37 (H) 0.86 - 1.14 [facility] LABS Specimen Anatomical Collection Method Collection Time Receive d Time (Source) Location / / Volume Laterality Blood specimen 07/25/2012 12:53 2 (specimen) [facility] [employer] 12:54 [facility] [employer] Patricia Ritikalenore Moe APRN [employer] LAB - BLOOD ORDERABLES Performing Organization Address City/State/ZIP Code Phon e Number [address] LABS Factor 2 and 5 mutation analysis (07/25/2012 12:40 PM [employer]) Component Value Ref Test Analysis Performed At Patholo gist Range Method Time Signature Copath Report Patient Name: LOGAN BARGER MR#: [id number] Specimen #: [id number] Collected: 07/25/2012 12:40 Received: 07/26/2012 08:54 Reported: 07/29/2012 16:59 Ordering Phy(s): SHARI MANN TEST(S) REQUESTED: A: Factor 5 Leiden and Factor 2 by PCR B: DNA Isolation, High purity extraction SPECIMEN DESCRIPTION: Blood CLINICAL COMMENTS: History of pulmonary embolism METHODOLOGY: ?? The regions of genomic DNA containing the G1 691A Factor 5 gene mutation (Factor V Leiden) and the Factor 2(Prothrombin [id number]) gene mutation were simultaneously amplified using the polyme rase chain reaction. ??The amplified products were digested with restri ction endonuclease TaqI and products were analyzed by gel electrop horesis. RESULTS: Factor V 1691G>A (Leiden) ??RESULTS: Mutation analyzed: ? 1691G>A Factor V 1691G>A (Leiden) ??Interpretation: ?ABSENT Factor V 1691G>A (Leiden) mutation ??genotype: ?G/G FACTOR 2/PROTHROMBIN RESULTS: Mutation analyzed: ? 14207L>A Factor 2 Mutation Interpretation: ?ABSENT Factor 2 Mutation genotype: ?G/G INTERPRETATION: The patient is negative for the Factor V 1691G>A (Leiden) an d negative for the Factor 2 mutation. This test was developed and its performance determined by [facility] ??[facility]. It has not been cleared or approved by the [place]. Food and [place] g Administration. ??The FDA has determined that such clearance or approval is not necessary. ??Pursuant to the requirements of CLIA'88, this laboratory has established and verified the test's accuracy and precision. ??This test is used for clinical purposes. Electronically Signed Out By: Fidel Schneider MD, PhD ??[facility] TESTING LAB LOCATION: [address] [id number] COLLECTION SITE: Client: ??[facility] Location: ??[id number] (B) Specimen Anatomical Collection Method Collection Time Receive d Time (Source) Location / / Volume Laterality 07/25/2012 12:40 07/26/2012 8:54 PM [employer] [facility] [employer] Shari Mann LAB - GENOMICS Performing Organization Address City/State/ZIP Code Phon e Number [facility] documented in this encounter Visit Diagnoses Diagnosis PE (pulmonary embolism) Other pulmonary embolism and infarction History of pulmonary embolism Personal history of pulmonary embolism documented in this encounter Care Teams Dermatology Technician Relationship Specialty Start Date End Date Shari Mann PCP - General 07/12/12 10/07/14 documented as of this encounter
--- OUTSIDE RECORDS SUMMARY | 2022-06-02 16:10 | XMS_ITS | Encounter Summary ---
:1985 Author Organization [facility] Address [address] [place] [id number] Care Team Providers Name Role Phone Shari Mann Primary Care Provider Reason for Referral Specialty Diagnoses / Procedures Referred By Contact Refer red To Contact [facility] [address] [place] [address] [phone] Referral ID Status Reason Start Date Expiration Date Visits Requ ested Visits Authorized EL HAND Reason for Visit Reason Comments Chest Pain Shortness of Breath Auth/Cert - Closed Specialty Diagnoses / Procedures Referred By Contact Refer red To Contact Med Surg Diagnoses Pulmonary infarction (H) Pulmonary embolism (H) [id number] (pulmonary embolism)[id number] [address] [address] [place] [address] Phone: Referral ID Status Reason Start Date Expiration Date Visits Requ ested Visits Authorized [id number] Closed 07/13/2012 01/09/2013 1 1 Encounter Details Date Type Department Care Team Description 07/12/2012 - Hospital Encounter [facility] Mak Roach MD [address] [place] [address] Pulmonary embolism (H) (Primary Dx); 07/14/2012 [facility] [address] Milo Sanchez MD [facility] [address] [facility] [address] [place] [id number] Pulmonary infarction (H); Lashaun Bush MD 2019 [facility] [address] [place] [phone] PE (pulmonary embolism) (H); [facility] [address] [place] [address] Chest pain; [place] [address] Tila Carr MD XXX RESIGNED XXX [address] [place], [place] [id number] Constipation; [phone] GERD (gastroeso phageal reflux disease) Social History Tobacco Use Types Packs/Day Years Used Date Smoking Tobacco: Every Day Cigarettes 0.5 Alcohol Use Standard Drinks/Week Comments Yes 0 (1 standard drink = 0.6 oz pure alcoho l) occasionally Sex Assigned at Date Recorded Not on file documented as of this encounter Last Filed Vital Signs Vital Sign Reading Time Taken Comments Blood Pressure 116/69 07/14/2012 2:30 PM KENNEL HAND Pulse 92 07/14/2012 2:30 PM KENNEL HAND Temperature 37.2 ??C (98.9 ??F) 07/14/2012 2:30 PM KENNEL HAND Respiratory Rate 16 07/14/2012 2:30 PM KENNEL HAND Oxygen Saturation 94% 07/14/2012 2:30 PM KENNEL HAND Inhaled Oxygen Concentration - - Weight 101.1 kg (222 lb 14.4 oz) 07/14/2012 4:16 PM KENNEL HAND Height 165.1 cm (5' 5) 07/13/2012 12:34 AM KENNEL HAND Body Mass Index 37.09 07/13/2012 12:34 AM KENNEL HAND documented in this encounter Discharge Summaries Tila Carr MD - 07/14/2012 5:12 PM CST [facility] Discharge Summary Padma Arredondo Age: [age] year old Date of : 1985 Date of Admission: 07/12/2012 Date of Discharge: 07/14/2012 Admitting Physician: Milo Nelson MD Discharge Physician: Tila Carr MD Contact: Discharging Service: [facility] Primary Provider: Shari Mann [address] [address] Discharge Disposition: Discharged to home Condition on Discharge: Discharge condition: Stable Code status on discharge: Full Code Admission Diagnoses: Pulmonary infarction [415.19] Pulmonary embolism [415.19] [id number] (pulmonary embolism)[id number] Pulmonary embolism and infarction [415.19] Principle Discharge Problem: Pulmonary embolism and infarction Additional Discharge Problems: Patient Active Problem List Diagnoses Date Noted ??? PE (pulmonary embolism) 07/13/2012 Medications Prior to Admission: Prescriptions prior to admission Medication Sig Dispense Refill ??? LORazepam (ATIVAN PO) Take 0.5 mg by mouth 3 times daily as needed. ??? DISCONTD: desogestrel-ethinyl estradiol (RECLIPSEN) 0.15-30 MG-MCG per tablet Take 1 tablet by mouth daily. ??? DISCONTD: IBUPROFEN PO Take by mouth every 8 hours as needed. Discharge Medications: Current Discharge Medication List START taking these medications Details oxyCODONE-acetaminophen (PERCOCET) 5-325 MG per tablet Take 1-2 tablets by mouth every 4 hours as needed. Qty: 30 tablet, Refills: 0 Associated Diagnoses: PE (pulmonary embolism) acetaminophen 650 MG TABS Take 650 mg by mouth every 4 hours as needed. Qty: 250 tablet, Refills: 0 Associated Diagnoses: Chest pain enoxaparin (LOVENOX) 100 MG/ML SOLN Inject 1 mL Subcutaneous every 12 hours. Qty: 4 Syringe, Refills: 2 Associated Diagnoses: PE (pulmonary embolism) warfarin (COUMADIN) 5 MG tablet Take 1 tablet by mouth daily. Qty: 90 tablet, Refills: 1 Associated Diagnoses: PE (pulmonary embolism) senna-docusate (SENOKOT-S;PERICOLACE) 8.6-50 MG per tablet Take 1-2 tablets by mouth 2 times daily as needed (constipation ). Qty: 60 tablet, Refills: 2 Associated Diagnoses: Constipation omeprazole (PRILOSEC) 20 MG capsule Take 1 capsule by mouth every morning (before breakfast). Qty: 90 capsule, Refills: 2 Associated Diagnoses: GERD (gastroesophageal reflux disease) CONTINUE these medications which have CHANGED Details ibuprofen (ADVIL,MOTRIN) 600 MG tablet Take 1 tablet by mouth every 6 hours as needed. Qty: 120 tablet, Refills: 0 Associated Diagnoses: Chest pain CONTINUE these medications which have NOT CHANGED Details LORazepam (ATIVAN PO) Take 0.5 mg by mouth 3 times daily as needed. STOP taking these medications desogestrel-ethinyl estradiol (RECLIPSEN) 0.15-30 MG-MCG per tablet Comments: Reason for Stopping: Discharge Instructions and Follow-Up: Discharge diet: Regular Discharge activity: Activity as tolerated Discharge follow-up: Follow up with primary care provider on Wednesday 2012 Outpatient therapy: None Home Care agency: None Supplies and equipment: None Lines and drains: None Wound care: None Other instructions: None Brief Admission History and Evaluation: Padma Arredondo is a 26 year old female admitted for bilateral pulmonary emboli. Hospital Course/Discharge Plan by Problem: Bilateral PE: Pt had dyspnea tachynea tachycardia angina, High Pretest probabilty of PE by Wells Criteria; PE protocol showed multiple b/l lower lobe segmental and subsegmental PE with an area of pulmonary infarction in the left lung base. Provoked episode since patient's risk factors include active smoking and estrogen containing OCP. Patient was started with heparin drip and transition to Lovenox with INR goal of 2-3. Patient was instructed to continue warfarin to be overlapped with Lovenox for until the International Normalized Ratio (INR) has been in therapeutic range for 48 hours. Patient was recommended a total of 3 months of therapy since incident is provoked and risk factors are reversible. A baseline bilateral LE sonogram was done and revealed negative for DVT. Patient was able to ambulate and tolerate oral intake, at discharge. ## Chest Pain -- most likely 2/2 PE vs Pleurisy. Patient was discharge with ibuprofen and oxycodone 30 tablet as needed. Patient was instructed not to drive while taking the oxycodone. . ## Anxiety: Continue Lorazepam PO PRN ## Control: D/C OCP. Consider barriers and other alternatives for contraception. TO be discussed with PCP Patient was instructed to follow up with primary care physician in 3-5 days. Patient is schedule in INR clinic for INR follow up. Final Day of Progress before Discharge: All laboratory data reviewed All cardiac studies reviewed by me. All imaging studies reviewed by me. Pending Results: None It was a pleasure to participate in the care of Padma Arredondo. If you have questions about palmer, please do not hesitate to contact the [facility] team via the hospital [facility] on which we are stationed. Macho Holland [facility] - [phone] Attestation: This patient has been seen and evaluated by me, Tila Carr MD. Seen and discussed with theresident Dr Holland and the care team. I agree with the findings and plan in this note. I have reviewed today's vital signs, medications,imaging and labs. Code for today's visit :51910 Inpatient discharge code <30 minutes Tila Carr MD MD [facility] EL HAND documented in this encounter Medications at Time of Discharge Medication Sig Dispensed Refills Start Date End Date acetaminophen 650 MG Take 650 mg by mouth 250 tablet 0 07/1407/22/2012 TABSIndications: Chest every 4 hours as pain needed. enoxaparin (LOVENOX) Inject 1 mL 4 Syringe 2 07/14/201211/2011 100 MG/ML Subcutaneous every 12 SOLNIndications: PE hours. (pulmonary embolism) ibuprofen Take 1 tablet by 120 tablet 0 07/14/2012 07/22/20 12 (ADVIL,MOTRIN) 600 MG mouth every 6 hours tabletIndications: as needed. Chest pain LORazepam (ATIVAN PO) Take 0.5 mg by mouth 0 12/18/2013 3 times daily as needed. omeprazole (PRILOSEC) Take 1 capsule by 90 capsule 2 012 07/22/2012 20 MG mouth every morning capsuleIndications: (before breakfast). GERD (gastroesophageal reflux disease) oxyCODONE-acetaminophen Take 1-2 tablets by 30 tablet 0 10/28/2012 (PERCOCET) 5-325 MG per mouth every 4 hours tabletIndications: PE as needed. (pulmonary embolism) senna-docusate Take 1-2 tablets by 60 tablet 2 07/14/2012 1 09/22/2011 (SENOKOT-S;PERICOLACE) mouth 2 times daily 8.6-50 MG per as needed tabletIndications: (constipation ). Constipation warfarin (COUMADIN) 5 Take 1 tablet by 90 tablet 1 07/14/20 12 11/09/2012 MG tabletIndications: mouth daily. PE (pulmonary embolism) documented as of this encounter Progress Notes Milo Nelson MD - 2012 10:03 AM CST EL HAND Tila Carr MD - 07/14/2012 2:39 PM CST [facility] - Inpatient daily progress note Date of admission: 07/12/2012 Date of service: July 14, 2012 9:11 AM Interval History: Patient feels improved. She reports that her chest pain and sob are greatly improved. She is tolerating orals. denies sob,leg pain, or dizziness. She wishes to go home devendra. Review of Systems: CONSTITUTIONAL: no fatigue, no unexpected change in weight SKIN: no worrisome rashes or lesions RESP: no significant cough, no shortness of breath CV: Positive for mild left chest pain, no palpitations, no new or worsening peripheral edema GI: no nausea, no vomiting, no constipation, no diarrhea : no frequency, no dysuria, no hematuria Physical Exam (Resident / Clinician): Vitals were reviewed Blood pressure 116/69, pulse 92, temperature 98.9 ??F (37.2 ??C), temperature source Oral, resp. rate 16, height 5' 5 (165.1 cm), weight 222 lb 6.4 oz (100.88 kg), SpO2 94.00%. Constitutional: awake, alert, cooperative and no apparent distress Lungs: no increased work of breathing, no retractions and clear to auscultation Cardiovascular: regular rate and rhythm and normal S1 and S2 Abdomen: normal bowel sounds, soft, non-distended and non-tender Skin: no bruising or bleeding or lower extremity edema. Data: Results for orders placed during the hospital encounter of 07/12/12 (from the past 24 hour(s)) GLUCOSE BY METER Component Value Range Glucose 113 (*) 60 - 99 mg/dL CBC WITH PLATELETS DIFFERENTIAL Component Value Range WBC 7.0 4.0 - 11.0 10e9/L RBC Count 4.21 3.8 - 5.2 10e12/L Hemoglobin 12.5 11.7 - 15.7 g/dL Hematocrit 37.6 35.0 - 47.0 % MCV 89 78 - 100 fl MCH 29.7 26.5 - 33.0 pg MCHC 33.2 31.5 - 36.5 g/dL RDW 12.4 10.0 - 15.0 % Platelet Count 237 150 - 450 10e9/L Diff Method Automated Method % Neutrophils 48.4 40 - 75 % % Lymphocytes 39.9 20 - 48 % % Monocytes 9.3 0 - 12 % % Eosinophils 2.0 0 - 6 % % Basophils 0.3 0 - 2 % % Immature Granulocytes 0.1 0 - 0.4 % Absolute Neutrophil 3.4 1.6 - 8.3 10e9/L Absolute Lymphocytes 2.8 0.8 - 5.3 10e9/L Absolute Monoctyes 0.7 0.0 - 1.3 10e9/L Absolute Eosinophils 0.1 0.0 - 0.7 10e9/L Absolute Basophils 0.0 0.0 - 0.2 10e9/L Abs Immature Granulocytes 0.0 0 - 0.03 10e9/L INR Component Value Range INR 1.49 (*) 0.86 - 1.14 BASIC METABOLIC PANEL Component Value Range Sodium 140 133 - 144 mmol/L Potassium 4.2 3.4 - 5.3 mmol/L Chloride 108 94 - 109 mmol/L Carbon Dioxide 24 20 - 32 mmol/L Anion Gap 8 6 - 17 mmol/L Glucose 95 60 - 99 mg/dL Urea Nitrogen 8 5 - 24 mg/dL Creatinine 0.61 0.52 - 1.04 mg/dL GFR Estimate >90 >60 mL/min/1.7m2 GFR Estimate If Black >90 >60 mL/min/1.7m2 Calcium 8.6 8.5 - 10.4 mg/dL HEPARIN 10A LEVEL Component Value Range Heparin 10A Level 0.70 All cardiac studies reviewed by me. All imaging studies reviewed by me. 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 ## Bilateral PE: Pt had dyspnea tachynea tachycardia angina, High Pretest probabilty of PE by Wells Criteria; PE protocol showed multiple b/l lower lobe segmental and subsegmental PE with an area of pulmonary infarction in the left lung base. Provoked episode since patient's risk factors include active smoking and estrogen containing OCP. Spoke with heme-onco and they recommended Lovenox 1 mg/Kg BID -- Heme-onco consult. Appreciate their recommendation. --Continue Lovenox 1 mg/Kg BID -- continue warfarin ( INR goal of 2-3)-- pharmacy will manage it. -- warfarin to be overlapped with lovenox for until the International Normalized Ratio (INR) has been in therapeutic range for 48 hours. --Will start Warfarin in AM 5 mg X 2 days and adjust future dosing contingent on subsequent INR. Pharmacy to adjust dosing. --Warfarin education before discharge. -- Will recommend a total of 3 months of therapy since incident is provoked and risk factors are reversible. -- INR,CBC BMP in AM -- US b/l LE to rule out for DVT ( for baseline) ## Chest Pain -- most likely 2/2 PE vs Pleurisy --Oxycodone 5-10 mg po q4h prn -- Ibuprofen 800 mg q8h prn with food. ## Anxiety: Continue Lorazepam PO PRN ## Control: D/C OCP. Consider barriers and other alternatives for contraception. TO be discussed with PCP. Daily cares - F: Nil E: WNL N: RAD Lines:PIV Activity:-Up as tolerated CODE:Full Code Prophylaxis: On IV UFH PCP communication: - Shari Mann - Contacted at admission: No - Concerns or updates: None Dispo: Expected discharge date : Pending clinical improvement. Macho Holland MD [facility]--[phone] Attestation: This patient has been seen and evaluated by me, Tila Carr MD. Seen and discussed with theresident Dr Holland and the care team. I agree with the findings and plan in this note. I have reviewed today's vital signs, medications,imaging and labs. 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 Functional Level Prior [R] Ambulation 0 - independent [R]Transferring 0 - independent [R] Toileting 0 - independent [R] Bathing 0 - independent [R] Dressing 0 - independent [R] Cognition 0 - no cognition issues reported [R] Fall history within last six months no [R] Which of the above functional risks had a recent onset or change? ambulation Functional Level Comment Patient reports pain in L chest with deep inspiration with activity General Information Onset of Illness/Injury or Date of Surgery - Date 07/12/12 Referring Physician Karel Tran MD Patient/Family Goals Statement Patient's goal is to discharge home. 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 Precautions/Limitations no known precautions/limitations Weight-Bearing Status - LUE full weight-bearing Weight-Bearing Status - RUE full weight-bearing Weight-Bearing Status - LLE full weight-bearing Weight-Bearing Status - RLE full weight-bearing Heart Disease Risk Factors Smoking;Overweight;Stress General Observations Patient supine in bed, agreeable to PT eval General Info Comments Activity: up ad mj Cognitive Status Examination Orientation orientation to person, place and time Level of Consciousness alert Follows Commands and Answers Questions 100% of the time Personal Safety and Judgment intact Memory intact Pain Assessment Patient Currently in Pain Yes, see Vital Sign flowsheet Posture Posture Comments slight forward head posture Range of Motion (ROM) ROM Comment B LEs WFLs Strength Strength Comments MMT not formally performed. Patient demonstrates at least 3/5 strength as observedthrough functional activity Bed Mobility Bed Mobility Comments supine to sit with HOB minimally elevated with SBA Transfer Skills Transfer Comments sit to/from stand with SBA Gait Gait Comments Patient ambulated x 10 ft without AD at slow pace, no LOB, SBA x 1 Balance Balance Comments Patient able to stand unsupported, no LOB Sensory Examination Sensory Perception Comments Patient denies any numbness or tingling in B LEs General Therapy Interventions Planned Therapy Interventions progressive activity/exercise Clinical Impression Criteria for Skilled Therapeutic Intervention yes, treatment indicated PT Diagnosis Decreased activity tolerance APTA Preferred Practice Pattern cardiopulmonary Influenced by the following impairments SOB with ambulation Functional limitations due to impairments decreased activity tolerance Rehab Potential good, to achieve stated therapy goals Rehab potential affected by patient motivated Therapy Frequency` other (see comments) (1 session only) Predicted Duration of Therapy Intervention (days/wks) 1 session Anticipated Discharge Disposition home Risk & Benefits of therapy have been explained Yes Patient, Family & other staff in agreement with plan of care Yes Total Evaluation Time Total Evaluation Time (Minutes) 5 EL HAND Mart Dorado, RN - 07/13/2012 3:36 PM CST Transferred from at 1505. AVSS. On heparin drip at 1700-units per hr. Plan is to dc heparin drip at 1600. She is on BID Lovenox 100mg SQ. Reported off to incoming nurse. EL HAND Peter Hernandez RN - 07/13/2012 2:51 PM CST D: Orders written to transfer patient to . Patient left at 1455 via wheelchair. I: Report called to ELIE Cevallos. Belongings packed up and sent with patient. Oxycodone 5mg given Q 4hours. A: Patient is alert and oriented x4. Patient ambulates independently. HR 100-120 (when ambulating). Patient is radha ating regular diet. Pt c/o left side and should pain 9/10. 1x dilaudid given with pain decreasing to6/10. P: Turn heparin gtt off at 1600. Patient will need coumadin and lovenox teaching. Notify Mf ofany changes. EL HAND April Sam MD - 07/13/2012 9:10 AM CST [facility] - Inpatient daily progress note Date of admission: 07/12/2012 Date of service: July 13, 2012 9:11 AM Interval History: Patient complains right chest pain. She is tolerating orals. denies sob, chest pain or dizziness. She seems she understands the medication she is on for her pain. Review of Systems: CONSTITUTIONAL: no fatigue, no unexpected change in weight SKIN: no worrisome rashes or lesions RESP: no significant cough, no shortness of breath CV: Positive for chest pain, no palpitations, no new or worsening peripheral edema GI: no nausea, no vomiting, no constipation, no diarrhea : no frequency, no dysuria, no hematuria Physical Exam (Resident / Clinician): Vitals were reviewed Blood pressure 122/90, temperature 98.1 ??F (36.7 ??C), temperature source Oral, resp. rate 18, height 1.651 m (5' 5), weight 100.789 kg (222 lb 3.2 oz), SpO2 97.00%. Constitutional: awake, alert, cooperative and no apparent distress Lungs: no increased work of breathing, no retractions and clear to auscultation Cardiovascular: regular rate and rhythm and normal S1 and S2 Abdomen: normal bowel sounds, soft, non-distended and non-tender Skin: no bruising or bleeding or lower extremity edema. Date 07/13/12 0700 - 07/14/12 0659 Shift 0501-4891 7448-9729 2660-4455 24 Hour Total I N T A K E I.V. 10 10 Shift Total (mL/kg) 10 (0.1) 10 (0.1) O U T P U T Shift Total (mL/kg) Weight (kg) 100.79 100.79 100.79 100.79 Data: Results for orders placed during the hospital encounter of 07/12/12 (from the past 24 hour(s)) BASIC METABOLIC PANEL Component Value Range Sodium 142 133 - 144 mmol/L Potassium 4.1 3.4 - 5.3 mmol/L Chloride 107 94 - 109 mmol/L Carbon Dioxide 21 20 - 32 mmol/L Anion Gap 14 6 - 17 mmol/L Glucose 87 60 - 99 mg/dL Urea Nitrogen 8 5 - 24 mg/dL Creatinine 0.62 0.52 - 1.04 mg/dL GFR Estimate >90 >60 mL/min/1.7m2 GFR Estimate If Black >90 >60 mL/min/1.7m2 Calcium 9.2 8.5 - 10.4 mg/dL CBC WITH PLATELETS DIFFERENTIAL Component Value Range WBC 13.1 (*) 4.0 - 11.0 10e9/L RBC Count 4.59 3.8 - 5.2 10e12/L Hemoglobin 13.9 11.7 - 15.7 g/dL Hematocrit 40.3 35.0 - 47.0 % MCV 88 78 - 100 fl MCH 30.3 26.5 - 33.0 pg MCHC 34.5 31.5 - 36.5 g/dL RDW 12.2 10.0 - 15.0 % Platelet Count 257 150 - 450 10e9/L Diff Method Automated Method % Neutrophils 77.2 (*) 40 - 75 % % Lymphocytes 15.9 (*) 20 - 48 % % Monocytes 6.0 0 - 12 % % Eosinophils 0.5 0 - 6 % % Basophils 0.2 0 - 2 % % Immature Granulocytes 0.2 0 - 0.4 % Absolute Neutrophil 10.1 (*) 1.6 - 8.3 10e9/L Absolute Lymphocytes 2.1 0.8 - 5.3 10e9/L Absolute Monoctyes 0.8 0.0 - 1.3 10e9/L Absolute Eosinophils 0.1 0.0 - 0.7 10e9/L Absolute Basophils 0.0 0.0 - 0.2 10e9/L Abs Immature Granulocytes 0.0 0 - 0.03 10e9/L TROPONIN I Component Value Range Troponin I ES <0.012 0.000 - 0.034 ug/L INR Component Value Range INR 0.99 0.86 - 1.14 PARTIAL THROMBOPLASTIN TIME Component Value Range PTT 27 22 - 37 sec HCG QUAL URINE POCT Component Value Range HCG Qual Urine neg neg Internal QC OK Yes CREATININE POCT Component Value Range Creatinine 0.6 0.52 - 1.04 mg/dL GFR Estimate >90 >60 mL/min/1.7m2 GFR Estimate If Black >90 >60 mL/min/1.7m2 HEPARIN 10A LEVEL Component Value Range Heparin 10A Level 0.97 BASIC METABOLIC PANEL Component Value Range Sodium 138 133 - 144 mmol/L Potassium 3.7 3.4 - 5.3 mmol/L Chloride 106 94 - 109 mmol/L Carbon Dioxide 24 20 - 32 mmol/L Anion Gap 9 6 - 17 mmol/L Glucose 116 (*) 60 - 99 mg/dL Urea Nitrogen 7 5 - 24 mg/dL Creatinine 0.55 0.52 - 1.04 mg/dL GFR Estimate >90 >60 mL/min/1.7m2 GFR Estimate If Black >90 >60 mL/min/1.7m2 Calcium 8.7 8.5 - 10.4 mg/dL HEPARIN 10A LEVEL Component Value Range Heparin 10A Level 0.62 All cardiac studies reviewed by me. All imaging studies reviewed by me. 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 ## Bilateral PE: Pt had dyspnea tachynea tachycardia angina, High Pretest probabilty of PE by Wells Criteria; PE protocol showed multiple b/l lower lobe segmental and subsegmental PE with an area of pulmonary infarction in the left lung base. Provoked episode since patient's risk factors include active smoking and estrogen containing OCP. Spoke with heme-onco and they recommended Lovenox 100 mg BID, d/c heparin drip 3 hours after first dose of Lovenox. -- Heme-onco consult. Appreciate their recommendation. --Start Lovenox 100 mg BID. Will d/c heparin drip 3 hour after 1st dose of Lovenox -- continue warfarin ( INR goal of 2-3)-- pharmacy will manage it. -- warfarin to be overlapped with lovenox for until the International Normalized Ratio (INR) has been in therapeutic range for 48 hours. --Will start Warfarin in AM 5 mg X 2 days and adjust future dosing contingent on subsequent INR. Pharmacy to adjust dosing. -- Patient will have warfarin education before discharge. -- Will recommend a total of 3 months of therapy since incident is provoked and risk factors are reversible. -- INR,CBC BMP in AM ## Chest Pain -- most likely 2/2 PE vs Pleurisy --Oxycodone 5 mg po q4h prn -- Ibuprofen 800 mg q8h prn with food. ## Anxiety: Continue Lorazepam PO PRN ## Control: DC OCP. Consider barriers and other alternatives for contraception. TO be discussed with PCP. Daily cares - F: Nil E: WNL N: RAD Lines:PIV Activity:-Up as tolerated CODE:Full Code Prophylaxis: On IV UFH PCP communication: - Shari Mann - Contacted at admission: No - Concerns or updates: None Dispo: Expected discharge date : Pending clinical improvement. Macho Holland MD [facility]--PGY2 [phone] Attestation: This patient has been seen and evaluated by me, April Sam MD. Seen and discussed with the resident Dr Holland and the care team. I agree with the findings and plan in this note. I have reviewed today's vital signs, medications,labs. Code for today's visit :19513 Inpatient Subsequent Moderate complexity/severity April Sam MD MD [facility] EL HAND April Villagomez RN - 07/13/2012 1:22 AM CST Pt. Arrived to via bed from the ED with SOB and left shoulder pain. Pt ambulated independently tobed. Pt complains of left shoulder sharp/constant pain and lower back pain. 0.4mg Dilaudid PRN given. Pt. on RA sating >92%. A&Ox4. Tachycardic 100-110. Pt. Oriented to room and call light. EL HAND documented in this encounter H&P Notes Lashaun Newberry MD - 07/13/2012 1:10 AM CST Images from the original note were not included. 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 Pleuritic in character, 04/25 last night, now 610. Worsened by deep inspiration. No relieving factors. Had SOB, Dizziness. She also coughed up small amount of blood yesterday.Pt thought might have been a Panic attack. Was escorted from [facility] this evening to ER. Has nausea, No fever, chills, No rashes. Pt states that, 1 month ago she had similar left shoulder pain, though less intense which lasted 4 days. Resolved after 4 days of using 650 mg ASA. No other episodes of coughing or sputum. No fevers, chills, palpitations, syncope, leg pain, erythema or swelling. No recent travel, Pt is taking OCP and is a current smoker, and she was not very active over the past few days, since she was staying with her grandfather in the hospital. Unfortunately grandfather today and she admits that she is under a lot of stress. She has hx of anxiety and she admits that she gets anxiety attacks when she is under a lot of stress. She states that she has hyperventilation and palpitations with her anxiety attacks. In ED did CT chest, ABG, CBC BMP. Chest CT with PE protocol showed multiple b/l lower lobe segmentaland subsegmental PE with an area of pulmonary infarction in the left lung base. Pt was started on high intensity heparin infusion and admitted to medicine for further evaluation and management. Old records were reviewed, and any additions to pertinent history are noted above. Past Medical History: Past Medical History Diagnosis Date ??? Anxiety Past Surgical History: Past Surgical History Procedure Date ??? Appendectomy Social History: Smoking : 1-2 Packs per week. Alcohol: 2 beers on weeks. Recreational Drug use No Lives with significant other. 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 Last pill used last night. Family History: One cousin had a PE on her mother's side Grandfather had heart attack 6-7 years ago in his 80s. Allergies: Review of patient's allergies indicates no known allergies. Medications: Prescriptions prior to admission Medication Sig Dispense Refill ??? LORazepam (ATIVAN PO) Take 0.5 mg by mouth 3 times daily as needed. ??? desogestrel-ethinyl estradiol (RECLIPSEN) 0.15-30 MG-MCG per tablet Take 1 tablet by mouth daily. ??? IBUPROFEN PO Take by mouth every 8 hours as needed. Review of Systems: CONSTITUTIONAL: no fatigue, no unexpected change in weight SKIN: no worrisome rashes EYES: no acute vision problems ENT: no ear problems, no mouth problems, no throat problems RESP: mild cough, has shortness of breath, tachypnea CV: Has pleuritic chest pain, occasional palpitations, no new or worsening peripheral edema GI: has nausea, no vomiting, no constipation, no diarrhea : no frequency, no dysuria, no hematuria NEURO: has dizziness, no headaches ENDOCRINE: no temperature intolerance, no skin/hair changes PSYCHIATRIC: has anxiety/panic attacks Physical Exam: Vitals were reviewed Blood pressure 137/89, temperature 97.9 ??F (36.6 ??C), temperature source Oral, resp. rate 18, height 1.651 m (5' 5), weight 100.789 kg (222 lb 3.2 oz), SpO2 97.00%. Constitutional: awake, alert, cooperative, no apparent distress, and appears stated age HEENT: MMM, no conjunctival pallor. Mallampati 2. Pulm: CTAB, No rales, No wheeze, no increased effort of breathing. Difficult to take deep breaths. CVS: RRR, No murmurs GI: S NT ND BS +ve Hem/Onc: No cervical LN pamela MSK: No pedal edema, Minimal BL calf tenderness. Skin : no new rash Neuro: AOx3. CN II-XII grossly intact. Gait normal. Psych : Good eye contact, well groomed, very interactive and collaborative. Good insight. Thought process is linear and coherent. Associations are tight. Mood euthymic. Affect congruent with mood. No suicidal/ Homicidal ideations or intent. Data: Results for orders placed during the hospital encounter of 07/12/12 (from the past 24 hour(s)) BASIC METABOLIC PANEL Component Value Range Sodium 142 133 - 144 mmol/L Potassium 4.1 3.4 - 5.3 mmol/L Chloride 107 94 - 109 mmol/L Carbon Dioxide 21 20 - 32 mmol/L Anion Gap 14 6 - 17 mmol/L Glucose 87 60 - 99 mg/dL Urea Nitrogen 8 5 - 24 mg/dL Creatinine 0.62 0.52 - 1.04 mg/dL GFR Estimate >90 >60 mL/min/1.7m2 GFR Estimate If Black >90 >60 mL/min/1.7m2 Calcium 9.2 8.5 - 10.4 mg/dL CBC WITH PLATELETS DIFFERENTIAL Component Value Range WBC 13.1 (*) 4.0 - 11.0 10e9/L RBC Count 4.59 3.8 - 5.2 10e12/L Hemoglobin 13.9 11.7 - 15.7 g/dL Hematocrit 40.3 35.0 - 47.0 % MCV 88 78 - 100 fl MCH 30.3 26.5 - 33.0 pg MCHC 34.5 31.5 - 36.5 g/dL RDW 12.2 10.0 - 15.0 % Platelet Count 257 150 - 450 10e9/L Diff Method Automated Method % Neutrophils 77.2 (*) 40 - 75 % % Lymphocytes 15.9 (*) 20 - 48 % % Monocytes 6.0 0 - 12 % % Eosinophils 0.5 0 - 6 % % Basophils 0.2 0 - 2 % % Immature Granulocytes 0.2 0 - 0.4 % Absolute Neutrophil 10.1 (*) 1.6 - 8.3 10e9/L Absolute Lymphocytes 2.1 0.8 - 5.3 10e9/L Absolute Monoctyes 0.8 0.0 - 1.3 10e9/L Absolute Eosinophils 0.1 0.0 - 0.7 10e9/L Absolute Basophils 0.0 0.0 - 0.2 10e9/L Abs Immature Granulocytes 0.0 0 - 0.03 10e9/L TROPONIN I Component Value Range Troponin I ES <0.012 0.000 - 0.034 ug/L INR Component Value Range INR 0.99 0.86 - 1.14 PARTIAL THROMBOPLASTIN TIME Component Value Range PTT 27 22 - 37 sec HCG QUAL URINE POCT Component Value Range HCG Qual Urine neg neg Internal QC OK Yes CREATININE POCT Component Value Range Creatinine 0.6 0.52 - 1.04 mg/dL GFR Estimate >90 >60 mL/min/1.7m2 GFR Estimate If Black >90 >60 mL/min/1.7m2 Assessment and Plan: Assessment: Padma Arredondo is a 26 year old female who presents with pleuritic Lt chest and 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 Patient Active Problem List Diagnoses ??? PE (pulmonary embolism) Plan: ## Bilateral PE: Pt had dyspnea tachynea tachycardia angina, High Pretest probabilty of PE by Wells Criteria; PE protocol showed multiple b/l lower lobe segmental and subsegmental PE with an area of pulmonary infarction in the left lung base. Provoked episode since patient's risk factors include active smoking and estrogen containing OCP. --On High intensity heparin protocol with plan to switch to Lovenox in the am. -- Monitor Hb Xa PTT -- warfarin to be overlapped with heparin for a minimum of five days and until the International Normalized Ratio (INR) has been in therapeutic range for 24 hours. --Will start Warfarin in AM 5 mg X 2 days and adjust future dosing contingent on subsequent INR. Pharmacy to adjust dosing. -- INR goal of 2.5 (2-3) will be targeted. Continue daily INR checks until INR is in therapeutic range for 2 days. At time of discharge check INR every few days until a stable dose has been achieved and then once every 4 weeks. Will recommend a total of 3 months of therapy since incident is rovoked and risk factors are reversible. -- CBC BMP in AM ## Anxiety: Continue Lorazepam PO PRN ## Control: DC OCP. Consider barriers and other alternatives for contraception. TO be discussed with PCP. Daily cares - F: Nil E: WNL N: RAD Lines:PIV Activity:-Up as tolerated CODE:Full Code Prophylaxis: On IV UFH PCP communication: - Shari Mann - Contacted at admission: No - Concerns or updates: None Dispo: Expected discharge date : Pending clinical improvement,appropriate anticoagulation regimen inplace likely in AM. Karel Tran PGY-2 Family Medicine [facility], [place] Pager : [phone] Attestation: This patient has been seen and evaluated by me, Lashaun Newberry. Seen and discussed with the resident Dr Tran and the care team. I agree with the findings and plan in this note. Note: seen on 07/12/2012ut note signed 07/13/2012. I have reviewed today's vital signs, medications,labs. My edits in blue. Code for today's visit :05881 Inpatient admission High complexity/severity Lashaun Newberry MD [facility] [phone] EL HAND documented in this encounter Consult Notes Jeramy Menendez MD - 07/13/2012 1:04 PM CST HEMATOLOGY CONSULT NOTE: REASON FOR CONSULTATION: Bilateral PE. HISTORY OF PRESENT ILLNESS: Padma Arredondo is a 26-year-old female with no significant past medical history admitted with shortness of breath and left- sided chest pain and shoulder pain. The patient had similar complaints a month ago for which she took aspirin with resolution of symptoms. The patient had a CT PE protocol which showed multiple bilateral lower lobe segmental and subsegmental pulmonary emboli with an area of pulmonary infarction in the left lung base and possible smaller area of pulmonary infarction in the posterior right lung base and hepatomegaly. The patient was started on heparin gtt. The patient this morning was complaining of discomfort in the left shoulder & pleuritic chest pain. The patient has been on control pills and smokes. Denied any travel history. PAST MEDICAL HISTORY: Anxiety. PAST SURGICAL HISTORY: Appendicectomy. SOCIAL HISTORY: Smokes 1-2 packs a week. Alcohol: 2 beers a week. Denies any recreational drug use. Lives with her significant other. 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 FAMILY HISTORY: One cousin with history of PE. Coronary artery disease in grandfather. Physical Exam: Filed Vitals: 07/13/12 0742 07/13/12 1000 07/13/12 1303 BP: 122/90 130/89 Temp: 98.1 ??F (36.7 ??C) 98.8 ??F (37.1 ??C) Resp: 18 18 SpO2: 99% 97% 95% GENERAL: NAD NECK: Supple, No Pallor, Anicteric LUNGS: CTA b/l HEART: S1, S2, rate and rhythm regular. 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 Multiple bilateral with low segmental and subsegmental pulmonary emboli with an area of pulmonaryinfarction in the left lung base and possible smaller area of pulmonary infarction in the posterior right lung base. 2. Hepatomegaly. ASSESSMENT: Padam is a 26-year-old female with no significant past medical history admitted with bilateral pulmonary embolus. The patient is on a heparin drip. The patient has a history of smoking and was currently on OCPs. Discussed with the patient regarding the risk of hypercoagulability and increased risk of clots with oral contraceptive pill use and concomitant smoking. PLAN: 1. Discontinue OCPs. 2. Smoking cessation. 3. U/S b/l LE to r/o DVT (for base line) 3. Lovenox 1 mg/kg sc b.i.d. and start Coumadin. Continue Lovenox until INR become therapeutic 2-3 and is stable in the therapeutic range for 2 days before discontinuing Lovenox. Discussed the same with the patient and the patient understands the risks with OCPs and smoking. Will set up a followup in the Hematology Clinic. Case discussed with Dr. Helton. As dictated by JERAMY MENENDEZ MD HEMATOLOGY STAFF: Seen with fellow, whose note above contains additional details. Patient has had a provoked episode of VTE (triggers: OCPs, smoking). Plan to anticoagulate in the usual manner. Duration of anticoagulation 3 - 6 months, depending on her ability to achieve and maintain stable therapeutic anticoagulation.Will arrange to see her in my clinic in 1-2 weeks (patient given contact info and asked to call to make an appt). Yeison Helton MD tower switch operator Division of Hematology, Oncology, and Transplantation Director, [facility] MT: CD Name: PADMA BARGER Account: [id number] : 1985 Consult Date: 07/13/2012 Document: [id number] EL HAND documented in this encounter ED Notes Suman Hill RN - 07/12/2012 10:45 PM CST MD at bedside. EL HAND uSman Hill RN - 07/12/2012 10:16 PM CST Attempted to call report. EL HAND Mak Roach MD - 07/12/2012 6:27 PM CST History Chief Complaint Patient presents with ??? Chest Pain ??? Shortness of Breath HPI Padma Quevedo is a 26 year old female with PMH of anxiety who presents with left shoulder painand shortness of breath. Since last night pt has been having constant, stabbing, shooting left shoulder pain. Breathing, laying down or leaning forwards make the pain worse. She applied some ice packs and took her ativan, which did not help. During the day, pain started to radiate to left neck and left upper back. She states that last 45 minutes she has shortness of breath as well. Pain does not get worse with shoulder movements. She is not sure if exertion makes the pain worse. Pt states that, 1 month ago she had similar left shoulder pain which lasted 4 days. She also coughed up small amount of bl ood yesterday. No other episodes of coughing or sputum. No fevers, chills, palpitations, syncope, leg pain, erythema or swelling. Pt is taking OCP and current smoker, and she was not very active over the past few days, since she was staying with her grandfather in the hospital. Unfortunately grandfather today and she admits that she is under a lot of stress. She has hx of anxiety and she admits that she gets anxiety attacks when she is under a lot of stress. She states that she has hyperventilation and palpitations with her anxiety attacks, and current symptoms are not similar to her anxiety attacks. Past Medical History Diagnosis Date ??? Anxiety History Social History ??? Marital Status: Single Spouse Name: N/A Number of Children: N/A ??? Years of Education: N/A Occupational History ??? Not on file. Social History Main Topics ??? Smoking status: Current Everyday Smoker -- 0.5 packs/day ??? Smokeless tobacco: Not on file ??? Alcohol Use: Yes occasionally ??? Drug Use: No ??? Sexually Active: Other Topics Concern ??? Not on file Social History Narrative ??? No narrative on file I have reviewed the Medications, Allergies, Past Medical and Surgical History, and Social History inthe [employer] system. Review of Systems Constitutional: Negative for fever and chills. HENT: Negative. Respiratory: Positive for shortness of breath. Negative for cough and wheezing. Cardiovascular: Negative for chest pain, palpitations and leg swelling. Gastrointestinal: Negative for abdominal pain. Genitourinary: Negative. Negative for dysuria. Skin: Negative. Neurological: Negative. Psychiatric/Behavioral: Negative for confusion. All other systems reviewed and are negative. Physical Exam BP: 139/85 mmHg Heart Rate: 122 Temp: 97.9 ??F (36.6 ??C) Resp: 18 Weight: 99.791 kg (220 lb) SpO2: 96 % Physical Exam Exam: Constitutional: Alert, cooperative and in moderate distress due to pain. Head: Normocephalic. No masses, lesions, tenderness or abnormalities Neck: Neck supple. No adenopathy. Cardiovascular: Tachycardic. RRR. No murmurs, clicks gallops or rub Respiratory: Breath sounds are equally appreciated in all lung reed. Lungs clear. No crackles or wheezing. Gastrointestinal: Abdomen soft, non-tender. BS normal. : Deferred Musculoskeletal: extremities normal- no gross deformities noted, no swelling, erythema or tenderness. Skin: no suspicious lesions or rashes Neurologic: AOx3. Grossly non-focal. Gait normal. ED Course Procedures Chest CT: 1. Multiple bilateral lower lobe segmental and subsegmental pulmonary emboli with an area of pulmonary infarction in the left lung base and possible smaller area of pulmonary infarction in the posterior right lung base. 2. Hepatomegaly. EKG Interpretation: Interpreted by Char Grewal Time reviewed: 1899 Symptoms at time of EKG: shortness of breath Rhythm: Normal sinus rhythm Rate: Tachycardic rate of 106 [place]: NORMAL Ectopy: none Conduction: normal ST Segments/ T Waves: No ST-T wave changes Q Waves: none Comparison to prior: No old EKG available Clinical Impression: sinus tachycardia. Critical Care time: 45 min [facility] Diagnoses: None Labs Ordered and Resulted from Time of ED Arrival Up to the Time of Departure from the ED CBC WITH PLATELETS DIFFERENTIAL - Abnormal; Notable for the following: WBC 13.1 (*) % Neutrophils 77.2 (*) % Lymphocytes 15.9 (*) Absolute Neutrophil 10.1 (*) All other components within normal limits HCG QUAL URINE POCT - Normal BASIC METABOLIC PANEL TROPONIN I ISTAT CREATININE NURSING POCT CREATININE POCT PLATELETS MONITORED PER HEPARIN TREATMENT PROTOCOL (FOR MEANINGFUL USE INR PARTIAL THROMBOPLASTIN TIME INR AND PTT PANEL Assessments & Plan (with Medical Decision Making) 26 year old female who presents with pleuritic chest pain and shortness of breath. Given pleuritic CP, shortness of breath, sinus tachycardia, hx of OCP use, current smoker, not being very active lately and an episode of hemoptysis, initial concern was for possible PE. Chest CT with PE protocol was obtained, which showed multiple b/l lower lobe segmental and subsegmental PE with an area of pulmonary infarction in the left lung base. Pt was started on high intensity heparin infusion and admitted to medicine for further evaluation and management. This data collected with the Resident working in the Emergency Department. Patient was seen and evaluated by myself and I repeated the history and physical exam with the patient. The plan of care was discussed with them. The cody portions of the note including the entire assessment and plan reflect my d ocumentation. Patient with symptoms classic for pulmonary embolism. Tachycardia pleuritic chest pain hypoxia and he hemoptysis. On my exam she is in moderate distress, tachypneic. I reviewed the labs and the resident's note and agree with the assessment and plan and findings. She will be heparinized per high intensity protocol and admitted to a monitored inpatient bed. Case discussed with the admitting kiln worker. She is hemodynamically stable. Critical Care time was 45 minutes for this patient excluding procedures. I have reviewed the nursing notes. I have reviewed the findings, diagnosis, plan and need for follow up with the patient. New Prescriptions No medications on file Final diagnoses: Pulmonary embolism Pulmonary infarction Pulmonary emboli. 07/12/2012 [facility], [place], EMERGENCY DEPARTMENT Mak Roach MD 07/12/12 9527 EL HAND Paula Church RN - 07/12/2012 6:01 PM CST Pt in for complaints of chest pain and SOB starting last noc. Pt reports pain in the left upper chest and shoulder and new pain in the left lower back. Pt reports recent hx of family stressors and reports she has taken an ativan at home with no relief in sx. EL HAND documented in this encounter Miscellaneous Notes Plan of Care - Ethel Amezcua RN - 07/15/2012 12:04 AM CST Problem: IP GENERAL POC-ADULT,OB,BEHAVIORAL FVCPM Goal: Individualization/Patient-Specific Goal (Adult,OB,Behavioral The patient and/or their international representative will achieve their patient-specific goals related to the plan of care. The patient-specific goals include: Outcome: Adequate for Discharge Date Met: 07/15/12 D. Pt. Watched the DVD on lovenox. She did not have any questions. She had given herself her injection earlier with no problems. Went over coumadin teaching. Had no questions about that. Her iv was discontinued. Went over her discharge paper work. Picked up her perscriptions in discharge pharmacy on her way out the door. Left with her family from home around 1900. EL HAND Plan of Care - April Ramirez, PT - 07/14/2012 5:42 PM CST Problem: General Rehab Plan of Care Goal: Physical Therapy Goals The patient and/or their international representative will achieve their patient-specific goals related to the plan of care. The patient-specific goals include: By 07/14/12, patient will: 1. Perform bed mobility independently. Goal met. 2. Perform sit to/from stand transfers independently. Goal met. 3. Ambulate x 300 ft without AD, no LOB with minor balance challenges, vitals stable. Goal partiallymet. Frequency: 1 session only. Outcome: Therapy, progress toward functional goals as expected PT 5B: PT eval and treatment completed. Patient presents with pain and difficulty with deep inspiration secondary to PE. Patient able to perform all functional transfers independently. She ambulated x 2 laps around 5A/B units. On RA, patient's O2 sat dropped to 86% but increased to 91% after discussion on using PLB and pacing techniques. Patient has no further skilled PT needs and is discharged from PT services. Recommend: home when medically appropriate for discharge. Physical Therapy Discharge Summary Reason for discharge: All goals and outcomes met, no futher needs identified Progress towards goals: Goals partially met. Barriers to achieving goals: able to independently work toward completing all goals. Recommendation(s): No further therapy is recommended. EL HAND Plan of Care - Meghna Cao RN - 07/14/2012 1:32 PM CST Problem: IP GENERAL POC-ADULT,OB,BEHAVIORAL FVCPM Goal: Individualization/Patient-Specific Goal (Adult,OB,Behavioral The patient and/or their international representative will achieve their patient-specific goals related to the plan of care. The patient-specific goals include: Outcome: Improving Vital signs stable this am, complained of some left shoulder pain. Using hotpack and was given oral Dilaudid with relief. Lungs clear, diminished and patient states she feels much better today. Ambulated in hallway on room air and felt a little short of breath. At rest 94% on room air. Patient gave self Lovenox injection and feels comfortable giving these injections at home. Plan is to have Lovenox teaching, and bilateral lower limb ultrasound. Possible discharge later today. EL HAND Plan of Care - Angela Arroyo RN - 07/14/2012 6:31 AM CST Problem: IP GENERAL POC-ADULT,OB,BEHAVIORAL FVCPM Goal: Individualization/Patient-Specific Goal (Adult,OB,Behavioral The patient and/or their international representative will achieve their patient-specific goals related to the plan of care. The patient-specific goals include: S=Pt is currently awake, grooming. B=Pain medication first thing this morning after labs drawn. Pt was awake start of night when boyfriend came to visit with pt. Shortly after he left, pt fell asleep and slept through the night. A=Independent with cares. Pleasant and friendly. A&OX4. Uses call light appropriately. Reports pain well controlled with oral dilaudid. Denies trouble breathing. Pt administered lovenox shot independently. R=Educate on lovenox and home use. Continue with POC, report concerns to . Angela Arroyo 6:30 AM July 14, 2012 EL HAND Plan of Care - Ethel Amezcua RN - 07/13/2012 11:20 PM CST Problem: IP GENERAL POC-ADULT,OB,BEHAVIORAL FVCPM Goal: Individualization/Patient-Specific Goal (Adult,OB,Behavioral The patient and/or their international representative will achieve their patient-specific goals related to the plan of care. The patient-specific goals include: Outcome: No Change D. Has been having Left shoulder and upper abdominal pain which is decreased with oral dilaudid. Herpain went from a 7-8 to a 5. Pt. Had a heparin drip going until 1600. The drip was discontinued. Shereceived lovenox before she transferred to B from . She came to at the change of shift [id number]. Vitals are stable. Is up ad mj in her room. Received 7.5 of coumadin A. Continues with pain P. Continue to monitor and continue plan of care EL HAND Plan of Care - Pablo Cantor, PT - 07/13/2012 8:38 AM CST Problem: General Rehab Plan of Care Goal: Physical Therapy Goals The patient and/or their international representative will achieve their patient-specific goals related to the plan of care. The patient-specific goals include: PT 6B: Patient cancel. Patient has PE and has not been on Heparin drip for 24 hours yet therefore inappropriate until time period has elapsed. EL HAND Plan of Care - April Villagomez RN - 07/13/2012 7:11 AM CST Problem: IP GENERAL POC-ADULT,OB,BEHAVIORAL [facility]VCPM Goal: Individualization/Patient-Specific Goal (Adult,OB,Behavioral The patient and/or their international representative will achieve their patient-specific goals related to the plan of care. The patient-specific goals include: Outcome: No Change BP 136/81 Temp(Src) 98.2 ??F (36.8 ??C) (Oral) Resp 18 Ht 1.651 m (5' 5) Wt 100.789 kg (222lb 3.2 oz) BMI 36.98 kg/m2 SpO2 96% Pt. tachycardic 100-110's. Pt continues to have constant/sharp left shoulder pain that radiates to her lower back and neck at times. Pt states, I can't lay down or else I can't breathe. Pt. Has been in high-fowlers position all night. Dilaudid and Tylenol given for pain. Only slight relief. Pt. on Heparin drip. Hep 10a level of 0.97. Heparin adjusted per protocol. Redraw ordered for 1130. Warfarin ordered and given at 0600. EL HAND Pharmacy-Anticoagulation Service - Umer Marin [facility] - 07/13/2012 5:20 AM CST Clinical Pharmacy- Warfarin Dosing Consult Pharmacy has been consulted to manage this patient???s warfarin therapy. Padma Arredondo has been receiving warfarin as an outpatient on the following regimen: New start patient not on previously The warfarin is indicated for PE. Patient???s goal INR is: 2-3. Current medications that may interact with warfarin and/or INR: Motrin may increase the risk of bleeding. Recommend warfarin 7.5 mg today. Pharmacy will monitor Padma Arredondo daily and order warfarin doses to achieve specified INR goal. Please contact pharmacy as soon as possible if the warfarin needs to be held for a procedure or if the INR goals change. EL HAND Pharmacy-Admission Medication History - Pili Grant RPH - 07/12/2012 9:29 PM CST Admission medication history interview status for the 07/12/2012 admission is complete. See [facility] admission navigator for allergy information, prior to admission medications and immunization status. 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 No Time spent in this activity: 5 min Prior to Admission Medications Medication Last Dose Informant Patient Reported? Taking? LORazepam (ATIVAN PO) 07/12/2012 at Unknown Yes Yes Take 0.5 mg by mouth 3 times daily as needed. desogestrel-ethinyl estradiol (RECLIPSEN) 0.15-30 MG-MCG per tablet 07/11/2012 at Unknown Yes Yes Take 1 tablet by mouth daily. IBUPROFEN PO 07/12/2012 at Unknown Yes Yes Take by mouth every 8 hours as needed. EL HAND documented in this encounter Plan of Treatment Pending Results Name Type Priority Associated Diagnoses Date/Ti me INR AND PTT PANEL Lab Routine 07/12/2012 7:23 PM KENNEL [facility] Scheduled Referrals Name Type Priority Associated Diagnoses Order S [facility] Clinic Referral Referral Routine Pulmonary em bolism (H) Ordered: 07/14/2012 Pulmonary infarction (H) documented as of this encounter Procedures Procedure Name Priority Date/Time Associated Comments Diagnosis US LOWER EXTREMITY Routine 07/14/2012 1:27 PM Res ults for this VENOUS DUPLEX BILATERAL [facility] proc edure are in the results section. CBC WITH PLATELETS & Routine 07/14/2012 6:06 AM R esults for this DIFFERENTIAL [facility] procedure are i n the results section. INR Routine 07/14/2012 6:06 AM Results f or this [facility] procedure are i n the results section. HEPARIN 10A LEVEL Routine 07/14/2012 6:06 AM Resu lts for this [facility] procedure are i n the results section. BASIC METABOLIC PANEL Routine 07/14/2012 6:06 AM Results for this [facility] procedure are i n the results section. GLUCOSE BY METER Routine 07/13/2012 5:38 PM Resul ts for this [facility] procedure are i n the results section. HEPARIN 10A LEVEL Timed 07/13/2012 1:28 PM Resu lts for this [facility] procedure are i n the results section. HEPARIN 10A LEVEL Routine 07/13/2012 6:51 AM Resu lts for this [facility] procedure are i n the results section. HEPARIN 10A LEVEL STAT 07/13/2012 4:18 AM Resu lts for this [facility] procedure are i n the results section. BASIC METABOLIC PANEL Routine 07/13/2012 4:18 AM Results for this [facility] procedure are i n the results section. CT CHEST PULMONARY STAT 07/12/2012 8:57 PM Res ults for this EMBOLISM W CONTRAST [facility]EL [facility] procedur e are in the results section. ISTAT CREATININE POCT Routine 07/12/2012 7:52 PM Results for this [facility] procedure are i n the results section. HCG QUALITATIVE URINE STAT 07/12/2012 7:26 PM Results for this POCT [facility] procedure are i n the results section. INR AND PTT PANEL Routine 07/12/2012 7:23 PM [facility]EL [facility] CBC WITH PLATELETS & STAT 07/12/2012 7:23 PM R esults for this DIFFERENTIAL [facility] procedure are i n the results section. TROPONIN I STAT 07/12/2012 7:23 PM Results f or this [facility] procedure are i n the results section. INR Routine 07/12/2012 7:23 PM Results f or this [facility] procedure are i n the results section. PARTIAL THROMBOPLASTIN Routine 07/12/2012 7:23 PM Results for this TIME [facility] procedure are i n the results section. BASIC METABOLIC PANEL STAT 07/12/2012 7:23 PM Results for this [facility] procedure are i n the results section. EKG 12-LEAD, TRACING STAT 07/12/2012 6:55 PM R esults for this ONLY [facility] procedure are i n the results section. HIM ECG SCAN Routine 07/12/2012 6:55 PM KENNEL [facility] documented in this encounter Results US Venous lower extremity bilat (07/14/2012 1:27 PM KENNEL [facility]) Anatomical Region Laterality Modality Vascular, Thigh, Leg Other Specimen (Source) Anatomical Collection Method Collection Time Re ceived Time Location / / Volume Laterality 07/14/2012 1:27 PM [facility] Impressions 07/14/2012 4:36 PM [facility]EL [facility] Impression: 1. Color Doppler ultrasound of both lowe r extremities with no evidence of deep venous thrombosis. KRYSTAL ALVAREZ Narrative 07/14/2012 4:36 PM [facility] Examination is known to have a pulmonary embolus. This examination is done to look for deep venous thrombosis. Examination is done in both lower extrem ities from the common femoral vein, to the popliteal fossa and also im aging the posterior tibial veins. Grayscale compression, spectral wave nadiya lysis, and color Doppler imaging were used. The deep venous system bilaterally was w ell displayed. There is good flow, appropriate compressibility, and a ugmentation seen. There is no evidence of deep venous thrombosis in ei ther lower extremity. Procedure Note Krystal Alvarez MD - 07/14/2012Form atting of this note might be different from the original. Examination is known to have a pulmonary embolus. This examination is done to look for deep venous thrombosis. Examination is done in both lower extrem ities from the common femoral vein, to the popliteal fossa and also im aging the posterior tibial veins. Grayscale compression, spectral wave nadiya lysis, and color Doppler imaging were used. The deep venous system bilaterally was w ell displayed. There is good flow, appropriate compressibility, and a ugmentation seen. There is no evidence of deep venous thrombosis in ei ther lower extremity. IMPRESSION Impression: 1. Color Doppler ultrasound of both lowe r extremities with no evidence of deep venous thrombosis. KRYSTAL ALVAREZ Beto Anne MD IMG US ORDERABLES Heparin Xa (10a) Level (07/14/2012 6:06 AM [facility]ENNEL HAND) P athologist Signature Heparin 10A 0.70 IU/mL [facility] LABS Comment: Therapeutic Range: ?? UFH: ?? 0.15-0.35 IU/mL for low ?intensity dosing ?0.30-0.70 IU/mL for high ?intensity dosing ?? LMWH: ??1.00-2.00 IU/mL if 4-6 h ?post daily dosing ?0.60-1.00 IU/mL if 4-6 h ?post twice a day dosin g Specimen Anatomical Collection Method Collection Time Receive d Time (Source) Location / / Volume Laterality Blood specimen 07/14/2012 6:06 AM 012 6:14 (specimen) KENNEL HAND AM KENNEL HAND Karel Tran MD LAB - BLOOD ORDERABLES Performing Organization Address City/[facility] Code Phon e Number [address] LABS (ABNORMAL) INR (07/14/2012 6:06 AM KENNEL HAND) P athologist Signature INR 1.49 (H) 0.86 - 1.14 [facility] LABS Specimen Anatomical Collection Method Collection Time Receive d Time (Source) Location / / Volume Laterality Blood specimen 07/14/2012 6:06 AM 012 6:13 (specimen) KENNEL HAND AM KENNEL HAND Karel Tran MD LAB - BLOOD ORDERABLES Performing Organization Address City/[facility] Phon e Number [address] LABS Basic metabolic panel (07/14/2012 6:06 AM KENNEL HAND) P athologist Signature Sodium 140 133 - 144 [facility] mmol/L [facility] Potassium 4.2 3.4 - 5.3 [facility] mmol/L [facility] Chloride 108 94 - 109 [facility] mmol/L [facility] Carbon Dioxide 24 20 - 32 [facility] mmol/L [facility] Anion Gap 8 6 - 17 [facility] mmol/L [facility] Glucose 95 60 - 99 [facility] mg/dL [facility] LABS Urea Nitrogen 8 5 - 24 [facility] mg/dL [facility] Creatinine 0.61 0.52 - [facility] 1.04 mg/dL [facility]AMPUS LABS GFR Estimate >90 >60 [facility] mL/min/1.7 [facility]S m2 GFR Estimate If >90 >60 [facility] mL/min/1.7 [facility] m2 Calcium 8.6 8.5 - 10.4 [facility] mg/dL [facility] LABS Specimen Anatomical Collection Method Collection Time Receive d Time (Source) Location / / Volume Laterality Blood specimen 07/14/2012 6:06 AM 012 6:13 (specimen) KENNEL HAND AM KENNEL HAND Macho Holland MD LAB - BLOOD ORDERABLES Performing Organization Address City/State/ZIP Code Phon e Number [facility] [address] [place], [place] [id number] [place] [address] LABS CBC with platelets differential (07/14/2012 6:06 AM [facility]EL HAND) [facility] [address] gist Method Time Signature WBC 7.0 4.0 - [facility] 11.0 [facility] 10e9/L [place] RBC Count 4.21 3.8 - 5.2 [facility] 10e12/L [facility] LABS Hemoglobin 12.5 11.7 - [facility] 15.7 g/dL [facility] LABS Hematocrit 37.6 35.0 - [facility] 47.0 % [facility] LABS MCV 89 78 - 100 [facility] MCH 29.7 26.5 - [facility] 33.0 pg [facility] LABS MCHC 33.2 31.5 - [facility] 36.5 g/dL [facility] LABS RDW 12.4 10.0 - [facility] 15.0 % [facility] LABS Platelet Count 237 150 - 450 [facility] 10e9/L [facility] LABS Diff Method Automated [facility] Method [facility] LABS % Neutrophils 48.4 40 - 75 % [facility] LABS % Lymphocytes 39.9 20 - 48 % [facility] LABS % Monocytes 9.3 0 - 12 % [facility] LABS % Eosinophils 2.0 0 - 6 % [facility] LABS % Basophils 0.3 0 - 2 % [facility] % Immature 0.1 0 - 0.4 % [facility] Granulocytes [facility] LABS Absolute 3.4 1.6 - 8.3 [facility] Neutrophil 10e9/L [facility] LABS Absolute 2.8 0.8 - 5.3 [facility] Lymphocytes 10e9/L [facility] LABS Absolute 0.7 0.0 - 1.3 [facility] Monocytes 10e9/L [facility] LABS Absolute 0.1 0.0 - 0.7 [facility] Eosinophils 10e9/L [facility] LABS Absolute 0.0 0.0 - 0.2 [facility] Basophils 10e9/L [facility] LABS Abs Immature 0.0 0 - 0.03 [facility] Granulocytes 10e9/L [facility] LABS Specimen Anatomical Collection Method Collection Time Receive d Time (Source) Location / / Volume Laterality Blood specimen 07/14/2012 6:06 AM 012 6:13 (specimen) KENNEL HAND AM KENNEL HAND Karel Tran MD LAB - BLOOD ORDERABLES Performing Organization Address City/[facility]/ZIP Code Phon e Number [phone] [place] [address] LABS (ABNORMAL) Glucose by meter (07/13/2012 5:38 PM KENNEL HAND) P athologist Signature Glucose 113 (H) 60 - 99 POINT OF CARE mg/dL TEST, GLUCOSE Specimen Anatomical Collection Method Collection Time Receive d Time (Source) Location / / Volume Laterality 07/13/2012 5:38 PM 2 3:31 [facility]ENNEL HAND AM KENNEL HAND Milo Nelson MD LAB - BEAKER POCT Performing Organization Address City/[facility]/ZIP Code Phon e Number [facility] POINT OF CARE TEST, GLUCOSE POINT OF CARE TEST, GLUCOSE Heparin 10a Level (07/13/2012 1:28 PM KENNEL HAND) P athologist Signature Heparin 10A 0.69 IU/mL [facility] LABS Comment: Therapeutic Range: ?? UFH: ?? 0.15-0.35 IU/mL for low ?intensity dosing ?0.30-0.70 IU/mL for high ?intensity dosing ?? LMWH: ??1.00-2.00 IU/mL if 4-6 h ?post daily dosing ?0.60-1.00 IU/mL if 4-6 h ?post twice a day dosin g Specimen Anatomical Collection Method Collection Time Receive d Time (Source) Location / / Volume Laterality Blood specimen 07/13/2012 1:28 PM 012 1:35 (specimen) KENNEL HAND PM KENNEL HAND Macho Holland MD LAB - BLOOD ORDERABLES Performing Organization Address [facility] Phon e Number [facility] [address] LABS Heparin Xa (10a) Level (07/13/2012 6:51 AM KENNEL HAND) P athologist Signature Heparin 10A 0.62 IU/mL [facility] LABS Comment: Therapeutic Range: ?? UFH: ?? 0.15-0.35 IU/mL for low ?intensity dosing ?0.30-0.70 IU/mL for high ?intensity dosing ?? LMWH: ??1.00-2.00 IU/mL if 4-6 h ?post daily dosing ?0.60-1.00 IU/mL if 4-6 h ?post twice a day dosin g Specimen Anatomical Collection Method Collection Time Receive d Time (Source) Location / / Volume Laterality Blood specimen 07/13/2012 6:51 AM 012 6:53 (specimen) KENNEL HAND AM KENNEL HAND Karel Tran MD LAB - BLOOD ORDERABLES Performing Organization Address [facility] Phon e Number [facility] [address] LABS (ABNORMAL) Basic metabolic panel (07/13/2012 4:18 AM KENNEL HAND) Analysis Performed At Patho logist Time Signature Sodium 138 133 - 144 [facility] mmol/L [facility] LABS Potassium 3.7 3.4 - 5.3 [facility] mmol/L [facility] LABS Chloride 106 94 - 109 [facility] mmol/L [facility] LABS Carbon Dioxide 24 20 - 32 [facility] mmol/L [facility] LABS Anion Gap 9 6 - 17 [facility] mmol/L [facility] LABS Glucose 116 (H) 60 - 99 [facility] mg/dL [facility] LABS Urea Nitrogen 7 5 - 24 [facility] mg/dL [facility] LABS Creatinine 0.55 0.52 - [facility] 1.04 mg/dL [facility] LABS GFR Estimate >90 >60 [facility] mL/min/1.7 [place] m2 [facility] GFR Estimate If >90 >60 [facility] Black mL/min/1.[address] [place] m2 [facility] LABS Calcium 8.7 8.5 - 10.4 [facility] mg/dL [facility] LABS Specimen Anatomical Collection Method Collection Time Receive d Time (Source) Location / / Volume Laterality Blood specimen 07/13/2012 4:18 AM 012 4:19 (specimen) KENNEL HAND AM KENNEL HAND Karel Tran MD LAB - BLOOD ORDERABLES Performing Organization Address City/State/ZIP Code Phon e Number [facility] [address] LABS Heparin Xa (10a) Level (07/13/2012 4:18 AM KENNEL HAND) P athologist Signature Heparin 10A 0.97 IU/mL [facility] LABS Comment: Therapeutic Range: ?? UFH: ?? 0.15-0.35 IU/mL for low ?intensity dosing ?0.30-0.70 IU/mL for high ?intensity dosing ?? LMWH: ??1.00-2.00 IU/mL if 4-6 h ?post daily dosing ?0.60-1.00 IU/mL if 4-6 h ?post twice a day dosin g Specimen Anatomical Collection Method Collection Time Receive d Time (Source) Location / / Volume Laterality Blood specimen 07/13/2012 4:18 AM 11/28/2 012 4:19 (specimen) [facility]ENNEL HAND AM KENNEL HAND Karel Tran MD LAB - BLOOD ORDERABLES Performing Organization Address City/State/ZIP Code Phon e Number [facility] [address] [place] [address] [facility] LABS Chest CT, IV contrast only - PE protocol (07/12/2012 8:57 PM KENNEL HAND) Anatomical Region Laterality Modality Chest, SUBRAD CT BODY, UMP CT CHEST Comp uted Tomography Specimen (Source) Anatomical Collection Method Collection Time Re ceived Time Location / / Volume Laterality 07/12/2012 8:57 PM [facility] HAND Impressions 07/12/2012 10:07 PM [facility] HAND IMPRESSION: 1. Multiple bilateral lower lobe segment al and subsegmental pulmonary emboli with an area of pulmonary infarct ion in the left lung base and possible smaller area of pulmonary infar ction in the posterior right lung base. 2. Hepatomegaly. Findings were discussed with Dr. Ant crenshaw at 9:20 p.m. JOSESITO ARROYO I have personally reviewed the image and initial interpretation and agree with the findings. Narrative 07/12/2012 10:07 PM [facility]ENNEL HAND Examination: Chest CT Pulmonary Angiogra m, 07/12/2012 8:57 PM Comparison: None Clinical History: Pleuritic chest pain, tachycardia, hemoptysis Technique: CT images of the chest were o btained following pulmonary embolism protocol after the administrati on of intravenous contrast. Findings: There is good opacification of the pulmo nary arteries. Multiple filling defects in bilateral lower lobe segmental and subsegmental pulmonary arteries. The main pulmonary a rtery is normal in caliber. There is no evidence of heart strain. Th e heart is at the upper limits of normal for size. There is no m ediastinal, axillary, or hilar lymphadenopathy. No pericardial ef fusion. There is a wedge-shaped subpleural area of consolidation in the posterior medial left lung base that is concerning for pulmonary infarction. Intraparenchymal hemorrhage is noted left base medially. Smaller subpleural airspace opacity in t he posterior right lung base (series 5, image 60). The liver is enlarged. No additional abn ormalities are identified in this limited evaluation of the upper abd omen. Bones: There are no aggressive appearing bone lesions. Procedure Note Josesito Arroyo MD - 07/12/2012F ormatting of this note might be different from the original. Examination: Chest CT Pulmonary Angiogra m, 07/12/2012 8:57 PM Comparison: None Clinical History: Pleuritic chest pain, tachycardia, hemoptysis Technique: CT images of the chest were o btained following pulmonary embolism protocol after the administrati on of intravenous contrast. Findings: There is good opacification of the pulmo nary arteries. Multiple filling defects in bilateral lower lobe segmental and subsegmental pulmonary arteries. The main pulmonary a rtery is normal in caliber. There is no evidence of heart strain. Th e heart is at the upper limits of normal for size. There is no m ediastinal, axillary, or hilar lymphadenopathy. No pericardial ef fusion. There is a wedge-shaped subpleural area of consolidation in the posterior medial left lung base that is concerning for pulmonary infarction. Intraparenchymal hemorrhage is noted left base medially. Smaller subpleural airspace opacity in t he posterior right lung base (series 5, image 60). The liver is enlarged. No additional abn ormalities are identified in this limited evaluation of the upper abd omen. Bones: There are no aggressive appearing bone lesions. IMPRESSION IMPRESSION: 1. Multiple bilateral lower lobe segment al and subsegmental pulmonary emboli with an area of pulmonary infarct ion in the left lung base and possible smaller area of pulmonary infar ction in the posterior right lung base. 2. Hepatomegaly. Findings were discussed with Dr. Ant crenshaw at 9:20 p.m. JOSESITO ARROYO I have personally reviewed the image and initial interpretation and agree with the findings. Char Tovar MD IMG CT ORDERABLES Creatinine POCT (07/12/2012 7:52 PM [facility]ENNEL HAND) P athologist Signature Creatinine 0.6 0.52 - POINT OF CARE 1.04 mg/dL TEST, HANDHELD METER GFR Estimate >90 >60 POINT OF CARE mL/min/1.7 TEST, HANDHELD m2 METER GFR Estimate If >90 >60 POINT OF CARE Black mL/min/1.7 TEST, HANDHELD m2 METER Specimen Anatomical Collection Method Collection Time Receive d Time (Source) Location / / Volume Laterality 07/12/2012 7:52 PM 2 8:05 [facility] PM [facility]EL HAND Mak Roach MD [facility] POCT Performing Organization Address City/State/ZIP Code Phon e Number [facility] POINT OF CARE TEST, HANDHELD METER POINT OF CARE TEST, HANDHELD METER hCG qual urine POCT (07/12/2012 7:26 PM KENNEL HAND) athologist Signature HCG Qual Urine neg neg Internal QC OK Yes Specimen (Source) Anatomical Collection Method Collection Time Re ceived Time Location / / Volume Laterality Urine specimen 07/12/2012 7:26 PM (specimen) [facility] Caio Valdes MD LAB - ENTER/EDIT POCT Partial thromboplastin time (07/12/2012 7:23 PM KENNEL HAND) athologist Signature PTT 27 22 - 37 sec [facility] LABS Specimen Anatomical Collection Method Collection Time Receive d Time (Source) Location / / Volume Laterality 07/12/2012 7:23 PM 2 7:32 [facility] PM [facility]EL HAND Char Tovar MD LAB - BLOOD ORDERABLES Performing Organization Address City/[facility]/ZIP Code Phon e Number [address] LABS INR (07/12/2012 7:23 PM KENNEL HAND) athologist Signature INR 0.99 0.86 - 1.14 [facility] LABS Specimen Anatomical Collection Method Collection Time Receive d Time (Source) Location / / Volume Laterality 07/12/2012 7:23 PM 2 7:32 [facility] PM [facility]EL HAND Char Tovar MD LAB - BLOOD ORDERABLES Performing Organization Address City/State/ZIP Code Phon e Number [facility] [address] LABS Troponin I (07/12/2012 7:23 PM KENNEL HAND) athologist Signature Troponin I ES <0.012 0.000 - [facility] 0.034 ug/L [facility] LABS Specimen Anatomical Collection Method Collection Time Receive d Time (Source) Location / / Volume Laterality Blood specimen 07/12/2012 7:23 PM 012 7:32 (specimen) [facility]ENNEL HAND PM K[facility]EL HAND Char Tovar MD LAB - BLOOD ORDERABLES Performing Organization Address City/[facility]/ZIP Code Phon e Number [facility] [address] [place] [address] [facility] LABS (ABNORMAL) CBC with platelets differential (07/12/2012 7:23 PM KENNEL HAND) [facility] gist Method Time Signature WBC 13.1 (H) 4.0 - [facility] 11.0 [facility] 10e9/L [facility]S RBC Count 4.59 3.8 - 5.2 [facility] 10e12/L [facility] Hemoglobin 13.9 11.7 - [facility] 15.7 g/dL [facility] Hematocrit 40.3 35.0 - [facility] 47.0 % [facility] MCV 88 78 - 100 [facility] fl [facility] MCH 30.3 26.5 - [facility] 33.0 pg [facility] MCHC 34.5 31.5 - [facility] 36.5 g/dL [facility] RDW 12.2 10.0 - [facility] 15.0 % [facility] Platelet Count 257 150 - 450 [facility] 10e9/L [facility] Diff Method Automated [facility] Method [facility] % Neutrophils 77.2 (H) 40 - 75 % [facility] % Lymphocytes 15.9 (L) 20 - 48 % [facility] % Monocytes 6.0 0 - 12 % [facility] % Eosinophils 0.5 0 - 6 % [facility] % Basophils 0.2 0 - 2 % [facility] % Immature 0.2 0 - 0.4 % [facility] Granulocytes [facility] Absolute 10.1 (H) 1.6 - 8.3 [facility] Neutrophil 10e9/L [facility] Absolute 2.1 0.8 - 5.3 [facility] Lymphocytes 10e9/L [facility] Absolute 0.8 0.0 - 1.3 [facility] Monocytes 10e9/L [facility] Absolute 0.1 0.0 - 0.7 [facility] Eosinophils 10e9/L [facility] Absolute 0.0 0.0 - 0.2 [facility] Basophils 10e9/L [facility] Abs Immature 0.0 0 - 0.03 [facility] Granulocytes 10e9/L [facility] Specimen Anatomical Collection Method Collection Time Receive d Time (Source) Location / / Volume Laterality Blood specimen 07/12/2012 7:23 PM 012 7:32 (specimen) KENNEL HAND PM KENNEL HAND Char Tovar MD LAB - BLOOD ORDERABLES Performing Organization Address City/[facility]/ZIP Code Phon e Number [facility] [address] [place] [address] [facility] Basic metabolic panel (07/12/2012 7:23 PM KENNEL HAND) P athologist Signature Sodium 142 133 - 144 [facility] mmol/L CAMPUS LABS Potassium 4.1 3.4 - 5.3 [facility] mmol/L [facility] Chloride 107 94 - 109 [facility] mmol/L [facility] Carbon Dioxide 21 20 - 32 [facility] mmol/L [facility] Anion Gap 14 6 - 17 [facility] mmol/L [facility] Glucose 87 60 - 99 [facility] mg/dL CAMP[facility]S Urea Nitrogen 8 5 - 24 [facility] mg/dL CAMP[facility]S Creatinine 0.62 0.52 - [facility] 1.04 mg/dL CAMP[facility]S GFR Estimate >90 >60 [facility] mL/min/1.7 [facility] m2 GFR Estimate If >90 >60 [facility] mL/min/1.7 [facility] m2 Calcium 9.2 8.5 - 10.4 [facility] mg/dL CAMPUS LABS Specimen Anatomical Collection Method Collection Time Receive d Time (Source) Location / / Volume Laterality Blood specimen 07/12/2012 7:23 PM 012 7:32 (specimen) KENNEL HAND PM KENNEL HAND Char Tovar MD LAB - BLOOD ORDERABLES Performing Organization Address City/[facility]/ZIP [facility] Phon e Number [facility] [address] [place] [address] [facility] EKG 12 lead (07/12/2012 6:55 PM KENNEL HAND) Component Value Ref Range Test Analysis Performed Pathologis t Method Time At Signature Ventricular Rate 106 BPM RADIOLOGY RESULTS Atrial Rate 106 BPM RADIOLOGY RESULTS CA Interval 144 ms RADIOLOGY RESULTS QRS Duration 74 ms RADIOLOGY RESULTS QT 330 ms RADIOLOGY RESULTS QTc 438 ms RADIOLOGY RESULTS P [place] 51 degrees RADIOLOGY RESULTS R AXIS 21 degrees RADIOLOGY RESULTS T [place] 17 degrees RADIOLOGY RESULTS Interpretation Sinus tachycardia RADIOLO GY ECG RESULTS Interpretation Otherwise normal RADIOLOG Y ECG ECG RESULTS Interpretation Unconfirmed report - interpr etation of this ECG is computer generated - see RADIOLOGY ECG medical record for final interpretation RESULTS Specimen (Source) Anatomical Collection Method Collection Time Re ceived Time Location / / Volume Laterality 07/12/2012 6:55 PM KENNEL HAND Char Tovar MD ECG ORDERABLES Performing Organization Address City/State/ZIP Code Phon e Number RADIOLOGY RESULTS EKG - HIM ECG Scan (07/12/2012 6:55 PM KENNEL HAND) Narrative This result has an attachment that is no t available. Esra Guy GILMAN ECG ORDERABLES documented in this encounter Visit Diagnoses Diagnosis Pulmonary embolism (H) - Primary Other pulmonary embolism and infarction Pulmonary infarction (H) Other pulmonary embolism and infarction PE (pulmonary embolism) Other pulmonary embolism and infarction Chest pain Chest pain, unspecified Constipation Unspecified constipation GERD (gastroesophageal reflux disease) Esophageal reflux PE (pulmonary embolism) Other pulmonary embolism and infarction documented in this encounter Administered Medications Inactive Administered Medications - up to 3 most recent administrations Medication Order MAR Action Action Date Dose Rate Site acetaminophen (TYLENOL) tablet 650 Given 07/13/2012 5:39 AM KENNEL HAND 650 mg mg 650 mg, Oral, EVERY 4 HOURS PRN, mild pain, Starting on Wed07/13/12 at 0405, Alternate ibuprofen (if ordered) with acetaminophen Maximum acetaminophen dose from all sources = 75 mg/kg/day not to exceed 4 grams/day. diphenhydrAMINE (BENADRYL) capsule 25 mg Given 07/13/2012 10:04 PM KENNEL HAND 25 mg 25 mg, Oral, EVERY 6 HOURS PRN, itching, Starting on Wed07/13/12 at 2120 enoxaparin (LOVENOX) injection 100 mg Given 07/14/2012 11:19 AM KENNEL HAND 100 mg 100 mg, Subcutaneous, EVERY 12 HOURS, First dose on Wed07/13/12 at 1145 Given 07/13/2012 11:48 PM KENNEL HAND 100 mg Given 07/13/2012 12:52 PM KENNEL HAND 100 mg HEParin Loading dose for HIGH INTENSITY Given 07/12/20 12 10:48 PM KENNEL HAND 8,000 Units PROTOCOL * Give BEFORE starting HEParin Drip 8,000 Units (80 Units/kg ? 99.8 kg), Intravenous, ONCE, On Wed07/12/12 at 2126, For 1 dose, Max Dose: 4000 units if patient getting TNK and > 70kg. High Intensity Heparin Protocol heparin drip 25,000 Rate/Dose Change 07/13/2012 5:34 AM 1,700 Units/h r 17 mL/hr units in D5W 250 mL KENNEL HAND Intravenous, CONTINUOUS, Starting on Wed07/12/12 at 7, Starting Drip Rate = 1,800 Units/hr (18 units/kg/hr). High Intensity Heparin Protocol. GOAL: HEPARIN Xa (10a) LEVEL = 0.30-0.70 (PTT = 60-101 seconds). Max 1000 units/hr if patient getting TNK and > 70kg. Beginning with the Heparin Xa (10a) Level collected 6 hours after starting Heparin, adjust Heparin according to guidelines. Release Heparin Xa (10a) Level order for blood draw 6 hrs after start of infusion and 6 hrs after any dose change. If Xa (10a) <0.1 see bolus orders and INCREASE by 400 units/hr. If Xa (10a) 0.1 - 0.17 see bolus orders and INCREASE by 300 units/hr. If Xa (10a) 0.18 - 0.29 see bolus orders and INCREASE by 150 units/hr. If Xa (10a) 0.3 - 0.7 then NO CHANGE in rate . If Xa (10a) 0.71 - 1.01 then HOLD 30 min and Reduce by 100 units/hr. If Xa (10a) 1.02 - 2.06 then HOLD 60 min and Reduce by 150 units/hr If Xa (10a) >2.06 then HOLD 60 min and Reduce by 200 units/hr ., Initial Set-up verified by: suman hill rn Rate/Dose Verify 07/13/2012 12:54 AM KENNEL HAND Units/hr mL/hr New Bag 07/12/2012 10:49 PM KENNEL HAND 1,800 Units/hr 18 mL/hr heparin drip 25,000 units in New Bag 07/13/2012 12:24 PM 1,700 Units/hr 17 mL/hr D5W 250 mL KENNEL HAND Intravenous, CONTINUOUS, Starting on Wed07/13/12 at 1230, For 3 hours, Starting Drip Rate = 1,800 Units/hr (18 units/kg/hr). High Intensity Heparin Protocol. GOAL: HEPARIN Xa (10a) LEVEL = 0.30-0.70 (PTT = 60-101 seconds). Max 1000 units/hr if patient getting TNK and > 70kg. Beginning with the Heparin Xa (10a) Level collected 6 hours after starting Heparin, adjust Heparin according to guidelines. Release Heparin Xa (10a) Level order for blood draw 6 hrs after start of infusion and 6 hrs after any dose change. If Xa (10a) <0.1 see bolus orders and INCREASE by 400 units/hr. If Xa (10a) 0.1 - 0.17 see bolus orders and INCREASE by 300 units/hr. If Xa (10a) 0.18 - 0.29 see bolus orders and INCREASE by 150 units/hr. If Xa (10a) 0.3 - 0.7 then NO CHANGE in rate . If Xa (10a) 0.71 - 1.01 then HOLD 30 min and Reduce by 100 units/hr. If Xa (10a) 1.02 - 2.06 then HOLD 60 min and Reduce by 150 units/hr If Xa (10a) >2.06 then HOLD 60 min and Reduce by 200 units/hr ., Initial Set-up verified by: suman hill rn HYDROmorphone (DILAUDID) 0.2 MG/0.2 ML i njection Starting on Wed07/13/12 at 0800, For 1 dose, PETER HERNANDEZ: cabinet override HYDROmorphone (DILAUDID) 0.2 MG/0.2 ML Given 07/13/2012 12:35 PM KENNEL HAND 0.2 mg injection Starting on Wed07/13/12 at 1233, For 1 dose, PETER HERNANDEZ: cabinet override HYDROmorphone (DILAUDID) injection 0.2-0 .4 mg Given 07/13/2012 8:03 AM KENNEL HAND 0.4 mg 0.2-0.4 mg, Intravenous, EVERY 4 HOURS PRN, moderate to severe pain, Starting on Wed07/13/12 at 0405 HYDROmorphone (DILAUDID) injection 0.4 m g Given 07/13/2012 4:01 AM KENNEL HAND 0.4 mg 0.4 mg, Intravenous, EVERY 15 MIN PRN, Starting on Wed07/12/12 at 1834, Until Wed07/13/12 at 0411, moderate to severe pain Given 07/13/2012 1:57 AM KENNEL HAND 0.4 mg Given 07/13/2012 12:58 AM KENNEL HAND 0.4 mg HYDROmorphone (DILAUDID) tablet 2 mg Given 07/14/2012 10:04 AM KENNEL HAND 2 mg 2 mg, Oral, EVERY 4 HOURS PRN, severe pain, Starting on Wed07/13/12 at 1635 Given 07/14/2012 6:07 AM KENNEL HAND 2 mg Given 07/14/2012 12:47 AM KENNEL HAND 2 mg ibuprofen (ADVIL,MOTRIN) tablet 600 mg Given 07/13/2012 3:39 PM KENNEL HAND 600 mg 600 mg, Oral, EVERY 6 HOURS PRN, moderate pain, Starting on Wed07/13/12 at 1117, Give 1.5 tablets (600mg) Q6hrs prn iopamidol (ISOVUE-370) 76% solution 100 mL Given 07/12/2012 8:48 PM KENNEL HAND 70 mLs 100 mL, Intravenous, ONCE, On Wed07/12/12 at 2049, For 1 dose LORazepam (ATIVAN) tablet 0.5 mg Given 07/13/2012 12:23 PM KENNEL HAND 0.5 mg 0.5 mg, Oral, 3 TIMES DAILY PRN, anxiety, Starting on Wed07/13/12 at 0401 ondansetron (ZOFRAN) injection 8 mg Given 07/12/2012 11:16 PM KENNEL HAND 8 mg 8 mg, Intravenous, ONCE, Administer over 2-5 Minutes, On Wed07/12/12 at 2307, For 1 dose oxyCODONE (ROXICODONE) immediate release tablet Given 07/13/2012 4:07 PM KENNEL HAND 5 mg 5 mg 5 mg, Oral, EVERY 4 HOURS PRN, moderate to severe pain, Starting on Wed07/13/12 at 1116 Given 07/13/2012 12:03 PM KENNEL HAND 5 mg oxyCODONE-acetaminophen (PERCOCET) 5-325 MG Given 06/17 3:10 PM KENNEL HAND 1 tablet per tablet 1-2 tablet 1-2 tablet, Oral, EVERY 4 HOURS PRN, moderate to severe pain, Starting on Wed07/14/12 at 1044, Maximum acetaminophen 4000 mg in 24 hours from all sources senna-docusate (SENOKOT-S;PERICOLACE) Given 07/14/2012 8:[address] 2 tablets 8.6-50 MG per tablet 1-2 tablet 1-2 tablet, Oral, 2 TIMES DAILY PRN, constipation , Starting on Wed07/13/12 at 0405, If no bowel movement in 24 hours, increase to 2 tablets PO BID. Hold for loose stools. This is the first step of a three step constipation treatment protocol. Given 07/13/2012 8:45 PM KENNEL HAND 2 tablets sodium chloride (PF) 0.9% PF flush 20 mL Given 07/12/2012 8:48 PM KENNEL HAND 20 mLs 20 mL, Intravenous, ONCE, On Wed07/12/12 at 2048, For 1 dose warfarin (COUMADIN) tablet 5 mg Given 07/14/2012 6:07 PM KENNEL HAND 5 mg 5 mg, Oral, ONCE AT 6PM, On Odalys 07/14/12 at 1800, For 1 dose, Dispose as HW-P warfarin (COUMADIN) tablet 7.5 mg Given 07/13/2012 6:20 AM KENNEL HAND 7.5 mg 7.5 mg, Oral, ONCE, On Wed07/13/12 at 0530, For 1 dose, Dispose as HW-P warfarin (COUMADIN) tablet 7.5 mg Given 07/13/2012 5:55 PM KENNEL HAND 7.5 mg 7.5 mg, Oral, ONCE AT 6PM, On Wed07/13/12 at 1800, For 1 dose, Ok to give in addition to 7.5 mg given at 0620 this morning. Dispose as HW-P documented in this encounter Active and Recently Administered Medications Times are shown in KENNEL HAND. Scheduled Medication Order 07/12/2012 07/13/2012 07/14/2012 enoxaparin (LOVENOX) injection 100 mg 12 52 (Given - Provider: Peter Hernandez, ELIE)2348 (Given - Provider: Angela Arroyo RN) 1119 (Given - Provider: Meghna Cao RN) 100 mg, Subcutaneous, EVERY 12 HOURS, First dose on Wed07/13/12 at 1145 HEParin Loading dose for HIGH INTENSITY PROTOCOL * Give BEFORE starting HEParin Drip (COMPLETED) 2247 (Given - Provider: Suman Hill RN) 80 Units/kg ? 99.8 kg = 8,000 Units, Intravenous, ONCE, Wed07/12/12 at 2127, For 1 dose, Max Dose: 4000 units if patient getting TNK and > 70kg. High Intensity Heparin Protocol iopamidol (ISOVUE-370) 76% solution 100 mL (COMPLETED) 2047 (Given - Provider: CHIDI Rutledge) 100 mL, Intravenous, ONCE, Wed07/12/12 at 2048, For 1 dose omeprazole (priLOSEC) capsule 20 mg 0814 (Not Given - Provider: Meghna S Kiley, RN - Reason: Patient/family refused) 20 mg, Oral, EVERY MORNING BEFORE BREAKFAST, First dos e on Wed07/14/12 at 0730 ondansetron (ZOFRAN) injection 8 mg (COMPLETED) 2316 ( Given - Provider: Suman Hill RN) 8 mg, Intravenous, ONCE, for 2 Minutes, Wed07/12/12 at 2307, Fo r 1 dose sodium chloride (PF) 0.9% PF flush 20 mL (COMPLETED) 2 048 (Given - [facility]: [facility]eda [facility]) 20 mL, Intravenous, ONCE, Wed07/12/12 at 2049, For 1 dose warfarin (COUMADIN) tablet 5 mg 1807 (Given - Provider: Ethel Amezcua RN) 5 mg, Oral, ONCE AT 6PM, Wed07/14/12 at 1800, For 1 dose, Dispo se as HW-P warfarin (COUMADIN) tablet 7.5 mg (COMPLETED) 0620 (Given - Provider: April Villagomez RN) 7.5 mg, Oral, ONCE, Wed07/13/12 at 0530, For 1 dose, Dispose as HW-P warfarin (COUMADIN) tablet 7.5 mg (COMPLETED) 1755 (Given - Provider: Ethel Amezcua RN) 7.5 mg, Oral, ONCE AT 6PM, Wed07/13/12 at 1800, For 1 dose, Ok to give in addition to 7.5 mg given at 0620 this morning. Dispose as HW-P Continuous Medication Order 07/12/2012 07/13/2012 07/14/2012 heparin drip 25,000 units in D5W 250 mL (CANCELED) 224 9 (New Bag - Provider: Suman Hill RN) 0054 (Rate/Dose Verify - Provider: Yanet Villagomez RN)0506 (Stopped - Provider: April Villagomez RN)0534 (Rate/Dose Change - Provider: April Villagomez RN) Intravenous, CONTINUOUS, Starting Wed at 2127, Starting Drip Rate = 1,800 Units/hr (18 units/kg/hr). High Intensity Heparin Protocol. GOAL: HEPARIN Xa (10a) LEVEL = 0.30-0.70 (PTT = 60-101 seco nds). Max 1000 units/hr if patient getti ng TNK and > 70kg. Beginning with the Heparin Xa (10a) Level collected 6 hours after starting Heparin, adjust Heparin according to guidelines. Release Heparin Xa (10a) Level order for blood draw 6 hr s after start of infusion and 6 hrs after any dose change. If Xa (10a) <0.1 see bolus orders and INCREASE by 400 units/hr. If Xa (10a) 0.1 - 0.17 see bolus ord ers and INCREASE by 300 units/hr. If Xa (10a) 0.18 - 0.29 see bolus orders and INCREASE by 150 units/hr. If Xa (10a) 0.3 - 0.7 then NO CHANGE in rate . If Xa (10a) 0.71 - 1.01 then HOLD 30 min and Reduc e by 100 units/hr. If Xa (10a) 1.02 - 2. 06 then HOLD 60 min and Reduce by 150 units/hr If Xa (10a) >2.06 then HOLD 60 min and Reduce by 200 units/hr . heparin drip 25,000 units in D5W 250 mL () 1224 (New Bag - Provider: Peter Hernandez, RN)1608 (Stopped - Provider: Ethel Amezcua, ELIE) Intravenous, CONTINUOUS, Starting Wed at 1230, For 3 hours, Starting Drip Rate = 1,800 Units/hr (18 units/kg/hr). High Intensity Heparin Protocol. GOAL: HEPARIN Xa (10a) LEVEL = 0.30-0.70 (PTT = 60-101 seconds). Max 1000 units/hr if patient getting TNK and > 70kg. Beginning with the Heparin Xa (10a) Level collected 6 hours after starting Heparin, adjust Heparin according to guidelines. Rel ease Heparin Xa (10a) Level order for bl ood draw 6 hrs after start of infusion and 6 hrs after any dose change. If Xa (10a) <0.1 see bolus orders and INCREASE by 400 units/hr. If Xa (10a) 0.1 - 0.17 see bolus orders and INCREASE by 300 uni ts/hr. If Xa (10a) 0.18 - 0.29 see bolus orders and INCREASE by 150 units/hr. If Xa (10a) 0.3 - 0.7 then NO CHANGE in rate . If Xa (10a) 0.71 - 1.01 then HOLD 30 min and Reduce by 100 units/hr. If Xa (1 0a) 1.02 - 2.06 then HOLD 60 min and Reduce by 150 units/hr If Xa (10a) >2.06 then HOLD 60 min and Reduce by 200 units/hr . PRN Medication Order 07/12/2012 07/13/2012 07/14/2012 acetaminophen (TYLENOL) tablet 650 mg 05 39 (Given - Provider: April Villagomez RN) 650 mg, Oral, EVERY 4 HOURS PRN, mild pa in, Starting Wed07/13/12 at 0405, Alternate ibuprofen (if ordered) with acetaminophen Maximum acetaminophen dose from all sources = 75 mg/kg/day not to exceed 4 grams/day. diphenhydrAMINE (BENADRYL) capsule 25 mg (CANCELED) 2203 (Given - Provider: Ethel Amezcua RN) 25 mg, Oral, EVERY 6 HOURS PRN, itching, Starting Wed07/13/12 a t 2120 HYDROmorphone (DILAUDID) injection 0.2-0.4 mg (CANCELED) 0803 (Given - Provider: Peter Hernandez RN) 0.2-0.4 mg, Intravenous, EVERY 4 HOURS P RN, Starting Wed07/13/12 at 0405, Until Wed07/13/12 at 1118, moderate to severe pain HYDROmorphone (DILAUDID) injection 0.4 mg (CANCELED) 1 953 (Given - Provider: Suman Hill RN)2251 (Given - Provider: Suman Hill RN) 0058 (Given - Provider: April Villagomez RN)0157 (Given - Provider: April Villagomez RN)0401 (Given - Provider: April Villagomez RN) 0.4 mg, Intravenous, EVERY 15 MIN PRN, S tarting 07/12/12 at 1834, Until Wed07/13/12 at 0411, moderate to severe pain HYDROmorphone (DILAUDID) tablet 2 mg (CANCELED) 1645 (Given - Provider: Ethel Amezcua RN)2045 (Given - Provider: Ethel Amezcua RN) 0047 (Given - Provider: Angela M Cruz, RN)0607 (Given - Provider: Angela Arroyo RN)1004 (Given - Provider: Meghna Cao, ELIE) 2 mg, Oral, EVERY 4 HOURS PRN, severe pain, Starting Wed 2 at 1635 ibuprofen (ADVIL,MOTRIN) tablet 600 mg 1 539 (Given - Provider: Ethel Amezcua RN) 600 mg, Oral, EVERY 6 HOURS PRN, moderat e pain, Starting Wed07/13/12 at 1117, Give 1.5 tablets (600mg) Q6hrs prn LORazepam (ATIVAN) tablet 0.5 mg (CANCELED) 1223 (Given - Provider: Peter Hernandez RN) 0.5 mg, Oral, 3 TIMES DAILY PRN, anxiety, Starting Wed07/13/12 at 0401 oxyCODONE (ROXICODONE) immediate release tablet 5 mg (CANCEL ED) 1203 (Given - Provider: Peter Hernandez RN)1607 (Given - Provider: Ethel Amezcua RN) 5 mg, Oral, EVERY 4 HOURS PRN, moderate to severe pain, Starting Wed07/13/12 at 1116 oxyCODONE-acetaminophen (PERCOCET) 5-325 MG per tablet 1-2 table t 1510 (Given - Provider: Meghna Cao RN) 1-2 tablet, Oral, EVERY 4 HOURS PRN, mod erate to severe pain, Starting Odalys 07/14/12 at 1044, Maximum acetaminophen 4000 mg in 24 hours from all sources senna-docusate (SENOKOT-S;PERICOLACE) 8.6-50 MG per tablet 1 -2 tablet 2045 (Given - Provider: Ethel Amezcua RN) 0851 (Given - Provider: Meghna Cao, ELIE) 1-2 tablet, Oral, 2 TIMES DAILY PRN, con stipation , Starting Wed07/13/12 at 0405, If no bowel movement in 24 hours, increase to 2 tablets PO BID. Hold for loose stools. This is the first step of a three step constipation treatment protocol. No Frequency Medication Order 07/12/2012 07/13/2012 07/14/2012 HYDROmorphone (DILAUDID) 0.2 MG/0.2 ML injection (COMPLETED) 1235 (Given - Provider: Peter Hernandez, ELIE) 1 dose, Starting Wed07/13/12 at 1233, U ntil Wed07/13/12 at 1235, PETER HERNANDEZ: cabinet override documented in this encounter Care Teams Tire Technician Relationship Specialty Start Date End Date Shari Mann PCP - General 07/12/12 10/07/14 documented as of this encounter
--- OUTSIDE RECORDS SUMMARY | 2022-06-02 16:10 | XMS_ITS | Encounter Summary ---
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 documented in this encounter Results (ABNORMAL) INR (10/11/2012 1:03 PM COMMERCIAL TRAILER TRUCK DRIVER) P athologist Signature INR 2.08 (H) 0.86 - 1.14 [facility] LAB[facility] Specimen Anatomical Collection Method Collection Time Receive d Time (Source) Location / / Volume Laterality Blood specimen 10/11/2012 1:03 PM 013 1:04 (specimen) COMMERCIAL TRAILER TRUCK DRIVER PM COMMERCIAL TRAILER TRUCK DRIVER Patricia Moe APRN SPRAY PAINTING MACHINE OPERATOR LAB - BLOOD ORDERABLES Performing Organization Address City/State/ZIP Code Phon e Number [facility] [address] [place], [place] [id number] [place] [address] LABS documented in this encounter Visit Diagnoses Diagnosis PE (pulmonary embolism) Other pulmonary embolism and infarction documented in this encounter Care Teams Transformation Consultant Relationship Specialty Start Date End Date Shari Mann PCP - General 07/12/12 10/07/14 documented as of this encounter
--- OUTSIDE RECORDS SUMMARY | 2022-06-02 16:10 | XMS_ITS | Encounter Summary ---
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, 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 XXX Dl [place] [address] [facility] [address] [place] [phone] Social History Tobacco Use Types Packs/Day Years Used Date Smoking Tobacco: Every Day Cigarettes 0.5 Alcohol Use Standard Drinks/Week Comments Yes 0 (1 standard drink = 0.6 oz pure alcoho l) occasionally Sex Assigned at Date Recorded Not on file documented as of this encounter Plan of Treatment Not on filedocumented as of this encounter Visit Diagnoses Diagnosis PE (pulmonary embolism) - Primary Other pulmonary embolism and infarction documented in this encounter Care Teams Conciliator Relationship Specialty Start Date End Date Shari Mann PCP - General 07/12/12 10/07/14 documented as of this encounter
--- OUTSIDE RECORDS SUMMARY | 2022-06-02 16:10 | XMS_ITS | Encounter Summary ---
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 documented in this encounter Results (ABNORMAL) INR (07/20/2012 1:10 PM PROJECT CONTROL ANALYST) athologist Signature INR 1.93 (H) 0.86 - 1.14 [facility] Specimen Anatomical Collection Method Collection Time Receive d Time (Source) Location / / Volume Laterality Blood specimen 07/20/2012 1:10 PM 012 1:11 (specimen) PROJECT CONTROL ANALYST PM PROJECT CONTROL ANALYST Patricia Moe APRN CARDIAC CATH LAB RADIOLOGY TECHNOLOGIST LAB - BLOOD ORDERABLES Performing Organization Address City/State/ZIP Code Phon e Number [facility] [address] [place], [place] [phone] [place] [address] LABS documented in this encounter Visit Diagnoses Diagnosis PE (pulmonary embolism) Other pulmonary embolism and infarction documented in this encounter Care Teams Deputy Assessor Relationship Specialty Start Date End Date Shari Mann PCP - General 07/12/12 10/07/14 documented as of this encounter
--- OUTSIDE RECORDS SUMMARY | 2022-06-02 16:10 | XMS_ITS | Encounter Summary ---
:1985 Author Organization [facility] Address [address] [place] [address] Care Team Providers Name Role Phone Shari Mann Primary Care Provider Encounter Details Date Type Department Care Team Description 07/12/2012 Medical Correspondence [facility] Yeison Helton AUTH FORM, Health Info Mgmt MD Umer 07/12/2012 Srvcs [address] [facility] 2450 [facility] [address] [place] [address] Social History Tobacco Use Types Packs/Day Years [...] on filedocumented in this encounter Care Teams Courtesy Clerk Relationship Specialty Start Date End Date Shari Mann PCP - General 07/12/12 10/07/14 documented as of this encounter
--- OUTSIDE RECORDS SUMMARY | 2022-06-02 16:10 | XMS_ITS | Encounter Summary ---
:1985 Author Organization [facility] Address [address] [place] [address] Care Team Providers Name Role Phone Mann, Shari Primary Care Provider BgRashida APRN INTERIOR SPECIALIST Primary Care Provider [phone] BgRashida cornejo APRN INTERIOR SPECIALIST Unavailable [phone] BgRashida cornejo APRN INTERIOR SPECIALIST Unavailable [phone] Concha Balderrama [facility] Primary Care Provider Encounter Details Date Type Department Care Team Description 04/06/2011 Records - [facility] Paramjit Balderrama [address] [place] [address] [address] [place] [address] [facility] [place] [address] Social History Tobacco Use Types Packs/Day Years Used Date Smoking Tobacco: Never Assessed Sex Assigned at Date Recorded Not on file documented as of this encounter Plan of Treatment Not on filedocumented as of this encounter Procedures Procedure Name Priority Date/Time Associated Comments Diagnosis GYNECOLOGIC CYTOLOGY Routine 04/06/2011 1:20 PM R esults for this CDT procedure are i n the results section. HIV ANTIGEN ANTIBODY Routine 04/06/2011 9:32 AM R esults for this COMBO CDT procedure are i n the results section. TREPONEMA ABS W Routine 04/06/2011 9:32 AM Result s for this REFLEX TO RPR AND CDT procedure are in TITER the results section. HEPATITIS B SURFACE Routine 04/06/2011 9:32 AM Re sults for this ANTIGEN CDT procedure are i n the results section. documented in this encounter Results Gynecologic Cytology (PAP Smear) (04/06/2011 1:20 PM CDT) Specimen Anatomical Collection Method Collection Time Receive d Time (Source) Location / / Volume Laterality 04/06/2011 1:20 PM 1 1:20 CDT PM CDT [facility] Y - 04/06/2011 1:20 PM CDT [id number] ? Slide(s) 1 Specimen Type: ??SUREPATH SCREEN SOURCE: ENDOCERV CERVICAL PAP SMEAR INTERPRETATION: NEGATIVE FOR SQUAMOUS INTRAEPITHELIAL L ESION OR MALIGNANCY Fungal Organisms Morphologically Consis tent with Apolonia spp. Based on Pap interpretation, HPV reflex test not performed. Endocervical Component Present Satisfactory for Interpretation PATIENT HISTORY Reflex HPV.................: Yes if ASC US High Risk..................: NO LMP/Menopause Date.........: Abnormal Bleeding:.........: NO Pt Status..................: NOT APPLIC ABLE Control/Hormones.....: PILL/PATCH /RING Previous Normal/Date.......: 03/25 Prev. Abn Date/Dx..........: none Cervical Appearance........: na S. [place] CT(ASCP) ? (elec tronically signed) Performed at: ??[facility] [address] [place] [address] Date Received: 08/22/11 ?Date Compl eted: 04/09/11 ??ABN Complete: Concha [facility] - BEAKER AP Performing Organization Address City/State/ZIP Code Phon e Number [place] [address] [address] [facility] Treponema Abs w Reflex to RPR and Titer (04/06/2011 9:32 AM CDT) Patholo gist Method Time Signature Syphilis Non-reacti (Nonreacti 04/06/2011 [facility] Screen Mcmullen ve ve) 9:32 AM CDT [facility] Specimen Anatomical Collection Method Collection Time Receive d Time (Source) Location / / Volume Laterality 04/06/2011 9:32 AM 1 9:32 CDT AM CDT Concha Balderrama CNM LAB - BLOOD ORDERABLES Performing Organization Address City/[facility]/ZIP Code Phon e Number [place] [address] [phone] [address] [facility] Hepatitis B surface antigen (04/06/2011 9:32 AM CDT) Analysis Performed At Patho logist Time Signature Hepatitis B Negative (Negative) 04/06/2011 [facility] Surface 9:32 AM CDT [facility] Specimen Anatomical Collection Method Collection Time Receive d Time (Source) Location / / Volume Laterality 04/06/2011 9:32 AM 1 9:32 CDT AM CDT Concha Balderrama CNM LAB - BLOOD ORDERABLES Performing Organization Address City/[facility]/ZIP Code Phon e Number [facility] [address] [phone] [address] [facility] HIV Antigen Antibody Combo (04/06/2011 9:32 AM CDT) Analysis Performed At Patho logist Time Signature HIV Antigen Negative 04/06/2011 [facility] Antibody Combo 9:32 AM CDT [facility] Specimen Anatomical Collection Method Collection Time Receive d Time (Source) Location / / Volume Laterality 04/06/2011 9:32 AM 1 9:32 CDT AM CDT Narrative [facility] - 04/06/2011 9:32 AM CDT Effective 06/12/10, methodology is HIV 1/2 Antigen/Antibody Combination. ? Prior to 06/12/10, methodology wa s HIV 1/2 Antibody only. Concha Balderrama CNM LAB - BLOOD ORDERABLES Performing Organization Address City/State/[facility] Phon e Number [facility] [place] [phone] [place] [phone] [place] [address] documented in this encounter Visit Diagnoses Not on filedocumented in this encounter Care Teams Substation Designer Relationship Specialty Start Date End Date Shari Mann PCP - General 07/12/12 10/07/14 Rashida Pederson APRN PCP - General Nurse Practitioner 10/08/14 INTERIOR SPECIALIST [address] [place] [address] Rashida Pederson APRN PCP - Assigned PCP 10/14/14 10/18/18 INTERIOR SPECIALIST [address] [place] [address] Concha Balderrama CNM PCP - General 04/06/11 07/11/[address] [address] Rashida Pederson, ZIYAD Assigned PCP 10/14/14 1 09/26/20 INTERIOR SPECIALIST [address] [place] [address] documented as of this encounter
[2022-06-02 16:39] VITALS: PULSE 113; O2SAT 98
[2022-06-02 16:41] VITALS: BP 139/97; PULSE 114; RESP 16; TEMP 36.7
[2022-06-02 16:57] VITALS: BP 136/86; PULSE 108
--- NOTE | 2022-06-02 17:11 | W.PM.LDBA ---
Subjective History of Present Illness Narrative: Patient is being admitted to Labor and Delivery for IOL for GDM, obesity, and a history of a DVT on UFH. She is a 36 year old at weeks gestation. Her full history and physical was dictated by Jennifer Donald CNM today as there was not one done in the clinic. Please see this for details. On admit she is 2-3cm/70%/-3. Options for IOL were discussed including AROM, Cytotec, Cervidil and Pitocin. Risks and benefits of each were reviewed. She choose Cytotec and choose vaginal after the benefits of both vaginal and oral were reviewed. Blood Type:?B negative 1. Hx of DVT: W/ control & smoking ?? ? Seen [facility] 12/02: Recommended Lovenox 40 mg Daily, switch to UFH at 36 weeks 10,000 units sq twice daily until delivery; Hold dose for any concerns for delivery-ordered heparin on 05/12 ?? ? Took Lovenox in previous until 36 weeks then BID heparin ?? ? IOL recommended at 39 weeks - will likely decline ?? ? Resume on Lovenox at 24 hours after for 6 weeks. 2. Hx of Seizure, documented reaction to Wellbutrin ?? ? Work-up was normal, no medications ever; never had another after off wellbutrin 3. BMI >40. 43.3 pre ?? ? Recommended baby aspirin, taking ?? ? Physician Relations Manager referral: declines ?? ? Anesthesia consult: declines ?? ? Level II US w/ echocardiogram @ 20 weeks recommended per [facility] (WNL, no previa) ?? ? Consult w/ MFM: Seeing [facility] 12/02 ?? ? Early Gct: declined ?? ? HgbA1C 5.5% ?? ? Weekly BPP or NST starting @ 32 weeks: Declines at this time. Will start at 34-36 weeks. ?? ? Growth US between 32-36 weeks: wants with the BPP - scheduled for 36wk visit 4. Hypothyroid ?? ? Dx on NOB labs, 9.070. Started 11/13 on 112 mcg ?? ? NEEDS: TSH w/ T4 recheck 4 weeks from dose start, if unchanged then every trimester ?? ? Will plan recheck with 28 weeks labs. Good . No dose changes needed ?? ? Recheck 36 weeks:? 5. Rh negative blood type ?? ? NEEDS Rhogam at 28 weeks and 6. Gestational Diabetes Failed 3 hr (93, 221H, 160H, 121) Monitor supplies rx sent Nutrition consult ordered OB - H&P: Exam Physical Exam: Vital signs: Pulse BP Pulse Ox 108 H 136/86 98 06/02/22 16:57 06/02/22 16:57 06/02/22 16:39
--- NOTE | 2022-06-02 17:18 | P.OBHP_ITS ---
OB - H&P: HPI Labor/Induction History of Present Illness Date Seen: 06/02/22 Chief Complaint: The patient is a 36 year old 2 para 1 at 39.3 weeks gestation by LMP, who presents for IOL. Patient is being admitted to Labor and Delivery for IOL for GDM, obesity, and a history of a DVT on UFH. She is a 36 year old at weeks gestation. Her full history and physical was dictated by Jennifer Donald CNM today as there was not one done in the clinic. Please see this for details. On admit she is 2-3cm/70%/-3. Options for IOL were discussed including AROM, Cytotec, Cervidil and Pitocin. Risks and benefits of each were reviewed. She choose Cytotec and choose vaginal after the benefits of both vaginal and oral were reviewed. Blood Type:?B negative 1. Hx of DVT: W/ control & smoking ?? ? Seen [facility] 12/02: Recommended Lovenox 40 mg Daily, switch to UFH at 36 weeks 10,000 units sq twice daily until delivery; Hold dose for any concerns for delivery-ordered heparin on 05/12 ?? ? Took Lovenox in previous until 36 weeks then BID heparin ?? ? IOL recommended at 39 weeks - will likely decline ?? ? Resume on Lovenox at 24 hours after for 6 weeks. 2. Hx of Seizure, documented reaction to Wellbutrin ?? ? Work-up was normal, no medications ever; never had another after off wellbutrin 3. BMI >40. 43.3 pre ?? ? Recommended baby aspirin, taking ?? ? Delivery Sales Worker referral: declines ?? ? Anesthesia consult: declines ?? ? Level II US w/ echocardiogram @ 20 weeks recommended per [facility] (WNL, no previa) ?? ? Consult w/ MFM: Seeing [facility] 12/02 ?? ? Early Gct: declined ?? ? HgbA1C 5.5% ?? ? Weekly BPP or NST starting @ 32 weeks: Declines at this time. Will start at 34-36 weeks. ?? ? Growth US between 32-36 weeks: wants with the BPP - scheduled for 36wk visit 4. Hypothyroid ?? ? Dx on NOB labs, 9.070. Started 11/13 on 112 mcg ?? ? NEEDS: TSH w/ T4 recheck 4 weeks from dose start, if unchanged then every trimester ?? ? Will plan recheck with 28 weeks labs. Good . No dose changes needed ?? ? Recheck 36 weeks:? 5. Rh negative blood type ?? ? NEEDS Rhogam at 28 weeks and 6. Gestational Diabetes Failed 3 hr (93, 221H, 160H, 121) Monitor supplies rx sent Nutrition consult ordered Chief complaint: Maternity : 2 Para: 1 Date of last menstrual period: 08/30/21 Estimated date of delivery: 06/06/22 Gestational age based on last menstrual period: 39 Indications for induction: other (GDM-diet controlled, obestiy, history of a DVT on UFH) Narrative: Logan Sandoval is a 36 year old female History of Present Dating criteria: based on LMP (consistant with 1st trimester U/S) care: good care Ultrasounds: normal 1st trimester US and normal mid trimester US complications: gestational diabetes (diet controlled) Medical complications: none Narrative: Planned : Planned Allergies: NKA, seizure on wellbutrin when she was 18 OB History Miscarriages: 0 Abortions: 0 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 History: STDs: none Last Pap: 4 years Abnormal Pap: never MENSTRUAL HISTORY LMP: 08/30/2021 Date Reliability: certain Menses Every: 30-32 Amount/Length: 3-4, not have periods on IUD; Removed IUD 3 weeks prior MEDICAL HISTORY PE in 2011, high estrogen control and smoking Seizure w/ med reaction Anxiety/Depression, Hx of suicide attempt; not currently seeing a therapist ADHD SOCIAL Education: Bachelors degree 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, 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 Lives with: Dillon og Yves and 2 swedish shepards Pets: 2 dogs Abuse: Denies current, History of physical/verbal/sexual 20-25 Special Diet: Denies Ok with a blood transfusion: yes Culture or muslim beliefs: denies RISK FACTORS Exercise Times/wk: [employer] when able, walking Depression/Anxiety: Yes [place]: 1 PHQ 9: 7 Seat Belt Use: Routinely Smoking: Denies current, History of smoking 2018 occasional social smoking outside Alcohol/day: Denies while Caffeine: Coffee at work Drug Use: Denies current, hx of marijuana use in 20s Chicken Pox: Yes as a child MRSA: Denies Planning to breastfeed: Yes Ultrasound #1: 10.5 weeks by LMP, 10.4 weeks by u/s KELTON: 06/06/2022 by LMP, c/w 1st trimester u/s Labs Blood type: B (-) negative Rubella: nonimmune RPR/VDLR: nonreactive GBS status: negative HBsAG: negative Review of Systems Status of ROS: Reports: 10 or more systems reviewed and unremarkable except as noted in History and below GI: Denies: nausea, vomiting, diarrhea or constipation : Denies: vaginal bleeding or vaginal discharge Meds Home Medications and Allergies Home Medications Medication Instructions Recorded Confirmed Type Magnesium 325 mg PO DAILY 02/18/22 05/12/22 History aspirin 81 mg chewable tablet 81 mg PO DAILY 02/18/22 05/12/22 History cyanocobalamin (vitamin B-12) 250 300 mcg PO 02/18/22 05/12/22 History mcg lozenges hydroxyzine pamoate 50 mg capsule mg PO .as needed PRN 02/18/22 05/12/22 History ondansetron HCl 4 mg tablet mg PO PRN 02/18/22 05/12/22 History prenat.vits,ant,iju-kwxq-cwdme 1 tab PO QDAY 02/18/22 05/12/22 History evening primrose oil 500 mg capsule 500 mg PO TID 04/27/22 05/12/22 History Allergies Allergy/AdvReac Type Severity Reaction Status Date / Time bupropion AdvReac Intermediate Seizure Verified 05/12/22 13:28 Conjugated estrogen AdvReac Intermediate Blood Uncoded 05/12/22 13:28 clots from oral control pills OB - H&P: Exam Physical Exam: Vital signs: Pulse BP Pulse Ox 108 H 136/86 98 06/02/22 16:57 06/02/22 16:57 06/02/22 16:39 Constitutional: Constitutional: no acute distress and obese Routine HEENT Exam: Head: Present normal inspection ENT: Present normal exam Routine Neck Exam: Neck: Present full ROM Routine Respiratory Exam: Respiratory: Present CTA bilaterally Routine Cardiovascular Exam: Cardiovascular: RRR Routine Exam: Perineum Description: Normal Detailed Labor and Delivery Exam: Patient Gravid: yes Dilation (cm): 2 Effacement (%): 70 Cervix position: mid Consistency: medium Tachysystole: No Contraction intensity: Mild (occasional mild contractions) Fetus (Single): Station: -3 Heart Rate Baseline: 135 Monitor Accelerations: Absent Monitor Decelerations: None Assisted Variability: Moderate (11-25) (6-25) Routine Extremities Exam: Extremities: Present full ROM Routine Back/Spine/Pelvis Exam: Back/Spine: full ROM Routine Neurological Exam: Present alert and oriented X3 Routine Psychiatric Exam: Present normal affect OB - Problem Based A/P Additional Plan (1) Encounter for induction of labor: Status: Acute (2) Hx of deep venous thrombosis: Problem details: Currently on lovanox Status: Acute (3) Obesity: Status: Acute (4) Gestational diabetes: Status: Acute Plan ASSESSMENT:? at 39.3 weeks gestation? GBS negative GDM diet controlled History of a DVT. Was on Lovenox. Switched to UFH at 36 weeks. Medically indicated IOL ? PLAN:? 1. Reviewed risks and benefits of IOL with Pitocin vs Cytotec. Pt prefers vaginal Cytotec. 2. Candidate for analgesia of choice. Planning unmedicated .? 3. Anticipate ? 4. IV per unit protocol 5. Monitoring per unit protocol? ?? Delivery/Labor/Induction Plan Plan: induction Induction method: per misoprostol protocol
[2022-06-02 17:20] VITALS: BMI 39.9
[2022-06-02 17:56] LABS: SARS PCR* Negative SARS-CoV-2 (Negative)
[2022-06-02] MEDS: miSOPROStoL 25 MCG/0.25 TABLET VAGINAL ×2 (17:56→21:01)
[2022-06-02 19:20] LABS: Basophils Absolute Auto 0.02 K/uL (0.00-0.30); Basophils Percent Auto 0.2 % (0.0-3.0); Eosinophils Absolute Auto 0.03 K/uL (0.00-0.50); Eosinophils Percent Auto 0.3 % (0.0-7.0); Hematocrit 38.3 % (33.0-51.0); Hemoglobin* 13.3 gm/dL (12.0-16.0); Immature Granulocytes Abs Auto 0.05 K/uL (0.00-0.30); Lymphocytes Absolute Auto 2.01 K/uL (0.90-2.90); Lymphocytes Percent Auto 23.1 % (20-44); Mean Corpuscular HGB Conc 35 gm/dL (32-36); Mean Corpuscular Hemoglobin 31 pg (26-34); Mean Corpuscular Volume 89 fL (80-100); Monocytes Percent Auto 6.7 % (0.0-11.0); Neutrophils Absolute Auto 6.01 K/uL (1.7-7.0); Neutrophils Percent Auto 69.1 % (42.0-72.0); Platelet Count* 142 K/uL (140-440); RDW Coefficient of Variation % 12.7 % (11.5-15.5); Red Blood Count 4.33 m/uL (4.00-5.20)
[2022-06-02 19:53] LABS: Slide Review Reflex No
[2022-06-02 21:06] VITALS: BP 117/71; PULSE 94
--- NOTE | 2022-06-02 23:57 | P.OBPN_ITS ---
Subjective Date Seen: 06/02/22 Narrative: She has received 2 doses of 25mcg of Cytotec vaginally. She has felt somewhat crampy with these doses but nothing strong, painful or consistent. FRH tracing is category 1. Risks and benefits of keeping the next dose at 25mcg vs increasing to 50mcg was reviewed. She would like to proceed with the 50mcg for the next dose. She denies additional questions or concerns at this time. Objective Vital Signs: Last Vital Signs Temp 98.1 F 06/02/22 16:41 Pulse 94 06/02/22 21:06 Resp 16 06/02/22 16:41 BP 117/71 06/02/22 21:06 Pulse Ox 98 06/02/22 16:39 Pelvic Exam Dilation (cm): 2 Effacement (%): 70 Station: -3 Contractions Monitor mode: External Contraction Frequency: irritability and cramping Contraction pattern: Regular Contraction intensity: Mild (occasional mild contractions) Assessment Assessment: induction ongoing Station: -3 Status: Category l Heart Rate Baseline: 135 Operational Test Mechanic Variability: Moderate (6-25) Monitor Accelerations: Absent Monitor Decelerations: None
[2022-06-03] VITALS (16 sets, daily range): BP systolic 102–137; BP diastolic 53–81; PULSE 77–120; RESP 16–18; TEMP 36.4–36.8
[2022-06-03] MEDS: miSOPROStoL 25 MCG/0.25 TABLET 50 MCG VAGINAL (00:05)
[2022-06-03] MEDS: ONDANSETRON 2 MG/ML inj 4 MG IV ×2 (05:18→10:17)
--- NOTE | 2022-06-03 07:11 | PM.OBPNL ---
Subjective Date Seen: 06/03/22 Narrative: I was messaged at 0400 to be informed that she SROM at 0326 with clear fluid. At that time the RN had a difficult time reaching her cervix. At 0455 the RN found her to be 5cm/80%/-2 and she was significantly more uncomfortable with her contractions. At that time i came in to evaluate and for labor support. She was intermittently feeling pressure with contractions. At 0645 she requested a SVE as the pressure was intensifying but it was still inconsistent. She was found to be 6cm/100%/0to +1 in a mid position but off to the right. She was then encouraged to change positions. She was able to to shake the apple tree for 2 contractions. She then sat on the toilet for a few contractions before moving to the shower. She changed positions frequently there including lunges on both sides, kneeling, and supine. She is using hydro therapy at this time. Care was relinquished to Jennifer Frederick CNM at change of shift at 0700. Objective Vital Signs: Last Vital Signs Temp 97.6 F 06/03/22 04:29 Pulse 110 H 06/03/22 04:28 Resp 18 06/03/22 04:29 BP 122/81 06/03/22 04:28 Pulse Ox 98 06/02/22 16:39 Pelvic Exam Dilation (cm): 6 Effacement (%): 100 Station: 0 to +1 Contractions Monitor mode: None Contraction Frequency: 2-3 min Contraction pattern: Regular Contraction intensity: Strong/Firm Assessment Assessment: active labor Station: 0 Amniotic Membrane Status: SROM Status: Category l Heart Rate Baseline: 120 (120-135 by doppler) Monitor Decelerations: None (none heard by doppler) Tracing Comments: declining continuous monitoring at this time.
[2022-06-03] MEDS: miSOPROStoL 800 MCG/4 TABLET PR (08:39)
[2022-06-03] MEDS: TRANEXAMIC ACID 100 MG/ML INJ 1000 MG IV (08:50)
[2022-06-03] MEDS: METHYLERGONOVINE MALEATE 0.2 MG/ML INJ IM (08:50)
[2022-06-03] MEDS: OXYTOCIN 30 unit/500 ML in NS 30 UNIT/500 ML BAG 250 UNIT IVPB (08:56)
[2022-06-03] MEDS: IBUPROFEN 600 MG TABLET PO (09:00)
[2022-06-03] MEDS: LIDOCAINE 1% MDV 20 ML INJECTION (09:07)
[2022-06-03] MEDS: OXYCODONE 5 MG TABLET PO (09:43)
--- NOTE | 2022-06-03 09:43 | P.OBPRC_ITS ---
Procedure Delivery date: 06/03/22 Procedure Done: Global Events: GDMA1 and Labor Induction Intrapartal Events: Labor Induction Induction method: per misoprostol protocol Delivery monitor: external FHT and external uterine Route of delivery: Episiotomy description: None Laceration description: Perineal - 1st Degree Delivery repair: Vicryl Estimated blood loss (mL): 750 Anesthesia type: Nitrous Disposition: floor Narrative: The patient is a 36 year-old G2 now P1 admitted on 06/02/22 at 39.3 Weeks gestation for IOL for gestational diabetes, diet controlled and hx of a DVT.? Cervical exam on admission was 2-3 cm/70 % effaced/-3 station with membranes intact in vertex presentation.? SROM occurred at 0320 with clear fluid. ? Labor Analgesia:? Nitrous ? Pitocin:? No in labor. Given PP for increased bleeding ? Labor onset:? 0505 ? Complete:? 0819 ? Pushing:? 0800 ? heart tones during second stage: difficult to trace r/t pt position and pushing. 135 baseline, no audible decels noted. Logan was given 2 doses of cytotec. SROM occurred, and shortly after ctx noted to be increasing in intensity. She labored in the tub, and then made the decision to change to the bed. She was noted to be spontaneously pushing at times. A small anterior lip was noted to be persistent, reduced easily during one push, and she continued to push with good progress. ? At 0837 a viable female delivered in vertex OA presentation over intact perineum via spontaneous vaginal delivery.? was placed on maternal abdomen.? Cord was clamped and cut after a 5+ minute delay.? Infant weight pending.? 7 at 1 minute and 9 at 5 minutes.? Shoulder dystocia: no.? Nuchal cord: Yes X 2. First loop reduced prior to delivery of body, second one loose, noted with delivery and delivered through. Nuchal hand/arm also noted just after delivery of the head, likely right arm, but unable to confirm r/t speed w/ which the body delivered. ? Placenta delivered spontaneously and complete at 0851 with a 3 vessel cord. Trailing membranes teased out gently w/ ring forceps. Initial large gush noted just prior to delivery of placenta. Multiple large gushes continued w/ crede. Cytotec placed rectally prior to delivery of placenta for AMTSL - given instead of pitocin r/t current pitocin shortage. Decision made to proceed with TXA and methergine. Bleeding improving, but large gushes still noted, and decision made to proceed with pitocin, IV. ? Mother and were stable after delivery. ? Lacerations:? 1st degree, repaired with 3-0 vycril. ? Blood loss: 750 mL. Blood loss measurement type: QBL ? Sponge and needles counts are correct. [place] Infant Gender: Female presentation: vertex Placental Delivery Description: Spontaneous Cord Description: 3 Vessels, Nuchal Cord (X2), Loose and Reduced (first loop reduced, second delivered through) OB Vag Delivery Procedures Additional Procedures ECV: No Cook Catheter Insertion: No NST: No D&C: No Laceration Repair: Yes Tubal Ligation : No Other: No
[2022-06-03] MEDS: LACTATED RINGERS 1000 ML 1,000 ML 500 ML IV (10:25)
[2022-06-04 01:12] VITALS: BP 111/73; PULSE 114; RESP 16; TEMP 36.7
[2022-06-04 04:40] VITALS: BP 109/76; PULSE 89; RESP 16; TEMP 36.5
[2022-06-04 07:26] LABS: Hemoglobin* 10.3 gm/dL (12.0-16.0)
[2022-06-04 08:16] VITALS: BP 113/75; PULSE 90; RESP 18; TEMP 36.6; O2SAT 96
[2022-06-04] MEDS: DOCUSATE SODIUM 100 MG CAPSULE PO (08:24)
[2022-06-04] MEDS: ENOXAPARIN 40 MG/0.4 ML INJ SUBCUT (08:24)
--- NOTE | 2022-06-04 10:00 | P.DS_ITS ---
DS: Providers Provider Date Seen: 06/04/22 Date of admission: 06/02/22 16:00 Primary care physician: Malina Donald CNM Admitting Clinician: Malina Donald CNM Attending Physician on discharge: Nancy Rivera CNM Date of Discharge: 06/04/22 DS: Diagnosis Discharge Diagnosis (1) care and examination immediately after delivery: Status: Acute (2) Hx of deep venous thrombosis: Status: Acute Problem details: Currently on lovanox (3) Hypothyroid: Status: Acute (4) Obesity: Status: Acute (5) Lactating mother: Status: Acute (6) Normal spontaneous vaginal delivery: Status: Acute Exam Const: Vital Signs, click to edit/add: Vital Signs - 24 hr 06/03/22 10:04 06/03/22 10:19 06/03/22 10:34 Temperature Pulse Rate 85 83 90 Pulse Rate [Blood Pressure Cuff] Respiratory Rate Blood Pressure 107/57 L 105/58 L 107/63 Blood Pressure [Ri ght Arm] Pulse Oximetry Oxygen Delivery Me thod 06/03/22 10:49 06/03/22 15:29 06/03/22 15:29 Temperature Pulse Rate 93 112 H Pulse Rate [Blood Pressure Cuff] Respiratory Rate Blood Pressure 102/53 L 137/78 Blood Pressure [Ri ght Arm] Pulse Oximetry Oxygen Delivery Me thod 06/03/22 15:27 06/03/22 20:17 06/04/22 01:12 Temperature 98.0 F 98.0 F 98.1 F Pulse Rate Pulse Rate [Blood Pressure Cuff] 112 H 101 H 114 H Respiratory Rate 16 16 16 Blood Pressure Blood Pressure [Ri ght Arm] 137/78 106/71 111/73 Pulse Oximetry Oxygen Delivery Me thod Room Air Room Air Room Air 06/04/22 04:40 06/04/22 08:16 Temperature 97.7 F 97.8 F Pulse Rate Pulse Rate [Blood Pressure Cuff] 89 90 Respiratory Rate 16 18 Blood Pressure Blood Pressure [Ri ght Arm] 109/76 113/75 Pulse Oximetry 96 Oxygen Delivery Me thod Room Air Room Air Documenting provider has reviewed patient's vital signs: yes Common normals: no apparent distress, oriented x3, healthy appearing and alert HENMT: Common normals: normocephalic Head and scalp: normocephalic Eye: Common normals: PERRL Pupil: PERRL Neck & C-Spine: Common normals: full ROM and supple Chest: Common normals: inspection of chest normal Resp: Common normals: normal respiratory effort and clear to auscultation bilaterally Auscultation: clear to auscultation bilaterally Cardio: Common normals: regular rate and regular rhythm Rate: regular rate Rhythm: regular rhythm GI: Common normals: soft to palpation Palpation: soft : OB/external & speculum: Yes perineal/vaginal laceration (well approximated) Laceration: 1st Uterus: U/1 Lochia: small Back & Pelvis: Common normals: thoracic and lumbar spine normal to inspection Extremity: Common normals: normal to inspection and full ROM Neuro: Common normals: oriented x3 Sensorium/orientation: alert Speech: speech normal Psych: Common normals: mental status grossly normal, thought process normal, speech normal and activity/motor behavior normal Speech: normal speech Thought process: normal thought process Skin: Common normals: no rashes or lesions noted General skin exam: no rashes or lesions noted OB - DS: Summary Hospital Course Hospital Course: The patient is a 36 year old G 2 P 2 at 39 4/7 weeks gestation that was admitted to the Center on 06/02/22 for IOL for Hx of DVT and GDM. She had a vaginal delivery complicated by excessive bleeding managed with cytotec, TXA, methergine, and Pitocin. She delivered a viable female . She is breast feeding and reports it is going well. the patient has done well. She is voiding, passing flatus, and ambulating independently. Peripartum Data Infant delivery method: Vaginal Laceration description: Perineal - 1st Degree complications: none Gobles Gender: Female Discharge Plan: Home Status at Discharge Functional status at discharge: independent ambulation Overall status at discharge: patient is progressing back to baseline Time Spent with Patient Time attestation: Total time spent providing and/or coordinating discharge services: Time spent: Less than 30 minutes Discharge Plan Discharge Disposition: Home, Self-Care Date of Admission: 06/02/22 16:00 Attending Provider on Discharge: Nancy Rivera Primary Care Provider: Malina Donald Condition: Stable Anticipated Discharge Date/Time: 06/04/22 12:00 Discharge Medications: New acetaminophen 500 mg Tablet 1,000 mg PO Q6H PRNQty: 0 0RF docusate sodium 100 mg Capsule 100 mg PO DAILY Qty: 90 0RF enoxaparin 40 mg/0.4 mL Syringe 40 mg subcut Q24H Qty: 0 0RF ibuprofen 600 mg Tablet 600 mg PO Q6H PRNQty: 60 0RF Continued prenat.vits,ant,nja-foqm-qyyhg Tablet 1 tab PO QDAY cyanocobalamin (vitamin B-12) 250 mcg lozenge 300 mcg PO .QD Magnesium 325 mg PO DAILY levothyroxine 112 mcg capsule 112 mcg PO QDAY Qty: 30 3RF Discontinued aspirin 81 mg tablet,chewable 81 mg PO DAILY hydroxyzine pamoate 50 mg capsule 50 mg PO .as needed PRN ondansetron HCl 4 mg tablet 4 mg PO PRN PRN evening primrose oil 500 mg capsule 500 mg PO TID Rx Instructions: give with meal/snack heparin (porcine) 10,000 unit/mL solution 10,000 unit subcut Q12H Qty: 250 0RF No Action (DME) Test Strips Misc See Rx Instructions .MEDSUPPLY Qty: 100 3RF Rx Instructions: Test blood sugar 4 times daily. (DME) lancets Misc See Rx Instructions .MEDSUPPLY Qty: 100 3RF Rx Instructions: Test blood sugar 4 times daily. (DME) Blood Glucose Meter Misc See Rx Instructions .MEDSUPPLY Qty: 1 0RF Rx Instructions: As directed Discharge Orders: Discharge Order (Routine); Ordered 06/04/22 Ordered By: Nancy Rivera Additional Instructions: Discharge instructions were reviewed with the patient including signs and symptoms of infection and home going medications Nothing vaginally for 6 weeks: no tampons or intercourse Off Work or School for 6 weeks 2-week visit: discuss feeding concerns, review control options and screen for anxiety/depression. 6-week visit for an annual exam. consultation services are available to all mothers and babies for the first year after delivery.? To make an appointment, please call [phone]. Activity Level: Activity as Tolerated Discharge Diet: Regular Follow Up Appointments: [facility] Inst[facility] Labs Labs Laboratory Tests 06/04/22 06/02/22 06/02/22 Range/Units 07:15 19:13 19:13 WBC 8.70 (4.50-11.00) K/uL RBC 4.33 (4.00-5.20) m/uL Hgb 10.3 L 13.3 (12.0-16.0) gm/dL Hct 38.3 (33.0-51.0) % MCV 89 (80-100) fL MCH 31 (26-34) pg MCHC 35 (32-36) gm/dL RDW Coeff of Luis 12.7 (11.5-15.5) % Plt Count 142 (140-440) K/uL Neut % (Auto) 69.1 (42.0-72.0) % Lymph % (Auto) 23.1 (20-44) % Barrow % (Auto) 6.7 (0.0-11.0) % Eos % (Auto) 0.3 (0.0-7.0) % Baso % (Auto) 0.2 (0.0-3.0) % Neut # (Auto) 6.01 (1.7-7.0) K/uL Lymph # (Auto) 2.01 (0.90-2.90) K/uL [place]arrow # (Auto) 0.60 (0.00-0.90) K/UL Eos # (Auto) 0.03 (0.00-0.50) K/uL Baso # (Auto) 0.02 (0.00-0.30) K/uL Abs Immat Gran (auto) 0.05 (0.00-0.30) K/uL SARS-CoV-2 (PCR) (Negative) Blood Type B Negative Antibody Screen POSITIVE Antibody Identification No Antibodies Found by [facility] Screen Negative Crossmatch (AHG) See Detail 06/02/22 Range/Units 17:17 WBC (4.50-11.00) K/uL RBC (4.00-5.20) m/uL Hgb (12.0-16.0) gm/dL Hct (33.0-51.0) % MCV (80-100) fL MCH (26-34) pg MCHC (32-36) gm/dL RDW Coeff of Luis (11.5-15.5) % Plt Count (140-440) K/uL Neut % (Auto) (42.0-72.0) % Lymph % (Auto) (20-44) % Barrow % (Auto) (0.0-11.0) % Eos % (Auto) (0.0-7.0) % Baso % (Auto) (0.0-3.0) % Neut # (Auto) (1.7-7.0) K/uL Lymph # (Auto) (0.90-2.90) K/uL Barrow # (Auto) (0.00-0.90) K/UL Eos # (Auto) (0.00-0.50) K/uL Baso # (Auto) (0.00-0.30) K/uL Abs Immat Gran (auto) (0.00-0.30) K/uL SARS-CoV-2 (PCR) Negative SARS-CoV-2 (Negative) Blood Type Antibody Screen Antibody Identification Screen Crossmatch (AHG)
== END 2022-06-04 13:30 | disposition home or self-care (01) | DRG 806 ==
PROVIDERS: Advanced Practice Midwife; Admitting Provider Advanced Practice Midwife; PCP Advanced Practice Midwife; Visit Provider Advanced Practice Midwife
DX: O24.420 Gestational diabetes mellitus in childbirth, diet controlled (principal); O72.1 Other immediate postpartum hemorrhage; Z37.0 Single live birth; O70.0 First degree perineal laceration during delivery; Z86.718 Personal history of other venous thrombosis and embolism; O99.284 Endocrine, nutritional and metabolic diseases complicating childbirth; E03.9 Hypothyroidism, unspecified; O99.214 Obesity complicating childbirth; E66.9 Obesity, unspecified; Z3A.39 39 weeks gestation of pregnancy
CPT/HCPCS: 36415; 59200; 82962; 85018; 85025; 85461; 86850; 86870; 86880; 86900; 86901; 86922; 87635; A9270; J1650; J2210; J2405; J2791; J7120

== ENCOUNTER 2022-06-17 09:07 | Outpatient (CLI) | payer OTHER, SELFPAY ==
--- OUTSIDE RECORDS SUMMARY | 2022-06-17 09:09 | XMS_ITS | Encounter Summary ---
:1985 Author Organization [facility] Address [address] [place] [address] Care Team Providers Name Role Phone Rashida Pederson APRN ASSEMBLY MEMBER Primary Care Provider [phone] Rashida Pederson APRN ASSEMBLY MEMBER Unavailable [phone] Paty Lewis [facility] Unavailable [phone] Encounter Details Date Type Department Care Team Description 05/28/2020 [facility] Rashida Pederson Nicholson ZIYAD ASSEMBLY MEMBER [phone] [place] [address] (Wo rk) Social History Tobacco [...] Depression Total Score: 7 07/27/2018 7:15 AM PATIENT CLERICAL ASSISTANT documented as of this encounter Care Teams Referral Agent Relationship Specialty Start Date End Date Rashida Pederson, PCP - General Nurse Practitioner 10/08/14 WINDOWS ARCHITECT ASSEMBLY MEMBER [address] [place] [address] Rashida Pederson, Assigned PCP 10/14/14 WINDOWS ARCHITECT ASSEMBLY MEMBER [address] [place] [address] Paty Lewis Assigned OBGYN Provider 02/28/21 12/13/21 ABDOUL Mcgee [address] [place] [address] documented as of this encounter
--- OUTSIDE RECORDS SUMMARY | 2022-06-17 09:09 | XMS_ITS | Encounter Summary ---
:1985 Author Organization [facility] Address [address] [place] [address] Care Team Providers Name Role Phone Rashida Pederson APRN EXPORT MANAGER Primary Care Provider [phone] Rashida Pederson APRN EXPORT MANAGER Unavailable [phone] Reason for Visit Reason Comments Induction Of Labor Encounter Details Date Type Department Care Team Description 04/25/2020 - [facility] [place] NSVD (no rmal spontaneous vaginal delivery); 04/27/2020 Encounter [facility] SAMUEL History of pulmonary embolism; [facility] [address] [facility] BMI 39.0-39 .9,adult; [address] At high risk for venous thromboembolism (VTE) [address] [address] [place] [address] [phone] Social History Tobacco Use Types Packs/Day Years [...] breast pump for home use Referral to [facility] skilled Nurse visit for Assessment [...] Vitamin Tab Dose: 2 tablet Generic drug: prenat.vits,ant,wqn-hefk-vxtyu 2 tablets, Oral, DAILY SLOW FE ORAL [...] optimal maternal healthprior. -Outpatient resources reviewed including [facility], [facility], community groups. referral provided as needed. -Offered home visit by RN. Accepted and ordered if insurance allows. -Has breast pump at home, declines Rx. -Discharge to home today. Advised CNM to call at 1 week . Follow-up at 2 and 6 weeks in clinic or sooner as needed. Patient instructed to call the CNM scheduling number for appointment at [phone]. -Continue Lovenox prophylaxis x 6 weeks , orders completed. Subjective: Logan Sandoval feels ready for discharge. She is very pleased with her experience! [place] well supported to achieve her goals for [...] Support at home identified MIL who is script editor and will be their day care as [...] MSAF Afebrile Plan: At 1200, Dr. Marin, [facility], was called to room to assess for [...] H/o PE MSAF Afebrile Plan: Dr. Marin, [facility], consulted for persistent anterior lip and late [...] as indicated -Pt encouraged to utilize epidural FITNESS LEADER button prn for discomfort -Anticipate progress and [...] 98.1 ??F (36.7 ??C) SpO2: 100% FHR: 7699-5785: 155bpm, moderate variability + accels, no decels. 5501-2337: baseline appears to rise to 160-165bpm following [...] of clear fluid following AROM Provider: Payton hCen APRN, CNM Date: 04/25/2020 Time: 11:43 PM [...] AM Admission H&P Logan Sandoval, FERMÍN 1985, [facility] PCP: Rashida Pederson CNP, Extended Emergency Contact Information [facility] Relation: Spouse Secondary Emergency Contact: PER PT , [facility] Relation: Declined Chief Complaint: <principal problem not specified> HPI: Logan Sandoval, is a 34 y.o., at 41w0d, LMP 07/13/19, Estimated Date of Delivery: 04/18/20, confirmed by ultrasound at 20 weeks, admitted to [facility] on 04/25/2020 at 0745 secondary to: cervical ripening and IOL. History: Logan Sandoval began care with [facility] Certified Nurse- Midwives at the [facility] on 10/05/19 at 12 weeks [...] Virus RT-PCR Final Performed and/or entered by: [address] [address] ??? SARS-CoV-2 Virus Specimen Source 04/24/2020 Nasopharyngeal Final ??? SARS-CoV-2 PCR Result 04/24/2020 NEGATIVE Final SARS-CoV2 (COVID-19) RNA not detected, presumed negative. ??? SARS-COV-2 PCR COMMENT 04/24/2020 Testing was performed using the Xpert Xpress SARS-CoV-2 Assay on the [employer] Final Comment: [employer]. Additional information about this Emergency [...] COVID-19. This test was validated by the [facility]. This laboratory is certified under the Clinical Laboratory Improvement Amendments of 1988 (CLIA-88) as qualified to perform high complexity laboratory testing. Performed and/or entered by: [address] [address] Routine on 04/23/2020 Component Date Value Ref [...] Cartridge 0 04/24/2020 at Unknown time ??? prenat.vits,ant,jcf-lugm-eyvuc ( VITAMIN) Tab Take 2 tablets by [...] appearance:Pleasant, well groomed Psych: AAO x3 Skin: [place], warm & dry HEENT: unremarkable Cardiovascular: RRR, [...] Cervical Exam: As above Heart Rate: (per home health specialist) Uterine Activity: (per home health specialist) Notable AP/IP factors to date: 1.) Blood [...] minutes at bedside and in the [facility] obtaining and clarifying the above history, performing the physical exam, education and counseling and developing this plan of care. >50% spent on counseling and coordination of care. Provider:Coretta Carolina APRN, CNM documented in this encounter Consult Notes Andrew Marin MD - 04/26/2020 10:57 AM CDT I was asked to see this patient in consultation by nurse nutrition services worker Diana Kilgore. The patient is a 34-year-old [...] labor and she can begin pushing. The nutrition services worker will monitor this and I can be [...] discharge. Educational needs assessed and addressed Lashaun Manzo Note - Joyec Finney RN - 04/27/2020 11:30 AM CDT [...] it too much. Plan of Care - Marivel Nicholson RN - 04/26/2020 7:17 PM CDT [...] sharp count is correct. Andrew Marin MD [facility] [phone] CC1: Bandt documented in this encounter Plan [...] logist Time Signature Treponema Negative Negative 04/25/2020 [facility] Antibody Total 3:16 PM CDT [facility] Specimen Anatomical Collection Method / Collection Time Recei merry Time (Source) Location / Volume Laterality Blood specimen Venipuncture / 04/25/2020 9:42 04/25/20 20 (specimen) Unknown AM CDT 12:13 PM CDT Coretta Carolina CNM LAB - BLOOD ORDERABLES Performing Organization Address City/State/ZIP Code Phon [place] [address] [facility] [id number] [place] [address]'S LABORATORY CBC with platelets (04/25/2020 9:42 AM CDT) P athologist Signature WBC 10.9 4.0 - 11.0 04/25/2020 HEALTH thou/uL 10:05 AM CDT [facility] RBC Count 4.00 3.80 - 04/25/2020 HEALTH 5.40 10:05 AM CDT [facility] mill/uL [facility] LABORATORY Hemoglobin 12.0 12.0 - 04/25/2020 HEALTH 16.0 g/dL 10:05 AM CDT [facility] Hematocrit 35.5 35.0 - 04/25/2020 HEALTH 47.0 % 10:05 AM CDT [facility] MCV 89 80 - 100 04/25/2020 HEALTH fL 10:05 AM CDT [facility] MCH 30.0 27.0 - 04/25/2020 HEALTH 34.0 pg 10:05 AM CDT [facility] MCHC 33.8 32.0 - 04/25/2020 HEALTH 36.0 g/dL 10:05 AM CDT [facility] RDW 13.0 11.0 - 04/25/2020 HEALTH 14.5 % 10:05 AM CDT [facility] Platelet Count 160 140 - 440 04/25/2020 HEALTH thou/uL 10:05 AM CDT [facility] Mean Platelet 10.2 8.5 - 12.5 04/25/2020 HEALTH Volume fL 10:05 AM CDT [facility] Specimen Anatomical Collection Method / Collection Time Recei merry Time (Source) Location / Volume Laterality Blood specimen Venipuncture / 04/25/2020 9:42 04/25/20 20 9:51 (specimen) Unknown AM CDT AM CDT Coretta Carolina CNM LAB - BLOOD ORDERABLES Performing Organization Address City/State/ZIP Code Phon e Number [facility] [place] [address] [place] [address] [place] [address] LABORATORY TYPE AND SCREEN, ADULT [...] Organization Address City/State/ZIP Code Phon e Number [facility] BLOOD BANK [facility] [place] [address] [address] [place] [address] documented in this encounter Visit Diagnoses Diagnosis (normal spontaneous vaginal deliver y) Normal delivery History of pulmonary embolism Personal history of pulmonary embolism BMI 39.0-39.9,adult Body Mass Index 39.0-39.9, adult At high risk for venous thromboembolism (VTE) documented in this encounter Additional Health Concerns Assessment Noted Time PHQ-9 Depression Total Score: 7 07/27/2018 7:15 AM ARMOR RECONNAISSANCE VEHICLE DRIVER documented as of this encounter Care Teams Copra Processor Relationship Specialty Start Date End Date Rashida Pederson APRN EXPORT MANAGER PCP - General Nurse Practitioner 10/08/14 [address] [place] [address] Rashida Pederson APRN EXPORT MANAGER Assigned PCP 10/14/14 07/26/21 [address] [place] [address] documented as of this encounter
--- OUTSIDE RECORDS SUMMARY | 2022-06-17 09:09 | XMS_ITS | Encounter Summary ---
:1985 Author Organization [facility] Address [address] [place] [address] Care Team Providers Name Role Phone Rashida Pederson APRN ONLINE CONTENT DEVELOPER Primary Care Provider [phone] Rahsida Pederson APRN ONLINE CONTENT DEVELOPER Unavailable [phone] Encounter Details Date Type Department Care Team Description 04/26/2020 Anesthesia - [facility] Mary Sibley MD [address] [place] [address] [place] [address] Social History Tobacco Use Types [...] Depression Total Score: 7 07/27/2018 7:15 AM FLIGHT CREW SCHEDULER documented as of this encounter Care Teams Netezza Architect Relationship Specialty Start Date End Date Rashida Pederson APRN ONLINE CONTENT DEVELOPER PCP - General Nurse Practitioner 10/08/14 [address] [place], [place] [id number] Rashida Pederson APRN ONLINE CONTENT DEVELOPER Assigned PCP 10/14/14 07/26/21 [address] [place], [place] [id number] documented as of this encounter
--- OUTSIDE RECORDS SUMMARY | 2022-06-17 09:09 | XMS_ITS | Clinical Summary ---
:1985 Author Organization [place] Address [address] [place] [address] Care Team Providers Name Role Phone Rashida Pederson APRN [facility] Primary Care Provider [phone] Allergies Active Allergy Reactions Severity Noted Date [...] Total Score(s): No flowsheet data found. Last [facility] website verification: 6 [email or web address] Mirena IUD (intrauterine device) in place 08/07/2013 Overview: 08/07/2013: Mirena inserted under US jennifer kim p cx dilation. Remove/replace by 08/08/18. 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 BV (bacterial vaginosis) 11/09/2012 09/17/2015 Immunizations Name [...] Address T ype Group Dates PREFERREDONE PREFERREDONE [id number] 2021-Prese [phone] [place] [address] PPO [employer] [address] [place] [address] Guarantor Name Account Type Relation to Date of Phone Billing Patient Address Logan Sandoval Personal/Family Self [phone] (Home) [place] [address] Personal/Family Self 1985 [id number] [address] (Home) [place] [address] Advance Directives For more information, please contact: [phone] Latest Code Status on File Code Status Date Activated Date Inactivated Comments Full Code 07/14/2012 4:21 PM Code Status History Code Status Date Activated Date Inactivated Comments Full Code 07/13/2012 4:06 AM 07/14/2012 4:21 PM Care Teams Medical Facilities Section Director Relationship Specialty Start Date End Date Rashida Pederson APRN CNP PCP - General Nurse Practitioner 10/08/14 [address] [place] [address]
--- OUTSIDE RECORDS SUMMARY | 2022-06-17 09:09 | XMS_ITS | Encounter Summary ---
:1985 Author Organization [place] Address [address] [place] [address] Care Team Providers Name Role Phone Rashida Pederson APRN ACUPRESSURIST Primary Care Provider [phone] Rashida Pederosn APRN ACUPRESSURIST Unavailable [phone] Paty Lewis [facility] Unavailable Reason for Visit Reason Comments Consult Encounter Details Date Type Department Care Team Description 05/07/2020 [facility] Mihaela Burns C [place] [facility] [address] [place] [address] [address] [address] [facility] (Work) [place] [phone] [place], [place] (Fax) [phone] Social History Tobacco Use [...] of delivery: vaginal Infant's MD: BALA Guy, [facility]. Logan gives her permission for [...] 8 (eight) hours., Disp: , Rfl: ??? prenat.vits,ant,fgj-zoxx-wlkig ( VITAMIN) Tab, Take 2 tablets by [...] Depression Total Score: 7 07/27/2018 7:15 AM SHADOW GRAPH WEIGHT OPERATOR documented as of this encounter Care Teams Land Economist Relationship Specialty Start Date End Date Rashida Pederson, PCP - General Nurse Practitioner 10/08/14 MEDICAL ACCOUNTING CLERK ACUPRESSURIST [address] [place] [address] Rashida Pederson, Assigned PCP 10/14/14 MEDICAL ACCOUNTING CLERK ACUPRESSURIST [address] [place] [address] Paty Lewis Assigned OBGYN Provider 02/28/21 12/13/21 ABDOUL Mcgee [address] [place] [address] documented as of this encounter
--- OUTSIDE RECORDS SUMMARY | 2022-06-17 09:09 | XMS_ITS | Encounter Summary ---
:1985 Author Organization [facility] Address [address] [place] [address] Care Team Providers Name Role Phone Rashida Pederson APRN MANAGER TRANSITION Primary Care Provider [phone] Rashida ePderson APRN MANAGER TRANSITION Unavailable [phone] Paty Lewis [facility] Unavailable [phone] Reason for Visit Reason Comments Consult Encounter Details Date Type Department Care Team Description 05/02/2020 [facility] Mihaela Burns C [place] Other disorders of [facility] [address] [place] [address] [address] [place] [address] [address] [facility] (Work) [place] [phone] [place], [place] (Fax) [address] Social History Tobacco Use [...] of delivery: vaginal 's MD: BALA Guy, [facility]. Logan gives her permission for [...] 8 (eight) hours., Disp: , Rfl: ??? prenat.vits,ant,blz-rxil-dzikv ( VITAMIN) Tab, Take 2 tablets by [...] For a good video showing sidelying : Https://www.youtube.com/watch?v=XZC9rvqAikJ For an excellent video on paced bottle feeding: http://www.lowmilGFI Softwareupply.aaa-pcueh-ylfihad/ Good resources: www.Music180.com Https://www.Neuralitic Systems.Sirific Wireless/blog/ The Baby Book: Dr. Chakraborty and Shruti Wilder The Womanly Art of by [facility] For help with using baby carriers: [...] nipple pain. You can find it here: www.Cnekt.Sirific Wireless. Click on expecting a term baby. I [...] technique here, made by Dominique Leigh MD, quality head and specialist: https://med.[facility]/newborns/professional-education//maximbrigidin i-rhgu-bnmdqqgubz.html You don't need to worry a lot [...] Depression Total Score: 7 07/27/2018 7:15 AM JACK TAMP OPERATOR documented as of this encounter Care Teams Manufacturing Maintenance Technician Relationship Specialty Start Date End Date Rashida Pederson, PCP - General Nurse Practitioner 10/08/14 BODY CORPORATE MANAGER MANAGER TRANSITION [address] [place] [address] Rashida Pederson, Assigned PCP 10/14/14 BODY CORPORATE MANAGER MANAGER TRANSITION [address] [place] [address] Paty Lewis Assigned OBGYN Provider 02/28/21 12/13/21 ABDOUL Mcgee [address] [place] [address] documented as of this encounter
--- OUTSIDE RECORDS SUMMARY | 2022-06-17 09:09 | XMS_ITS | Encounter Summary ---
:1985 Author Organization [facility] Address [address] [place] [address] Care Team Providers Name Role Phone Rashida Pederson APRN PROFESSIONAL GOLF TOURNAMENT PLAYER Primary Care Provider [phone] Rashida Pederson APRN PROFESSIONAL GOLF TOURNAMENT PLAYER Unavailable [phone] Encounter Details Date Type Department Care Team Description 04/29/2020 [facility] Mine Cantor, [address] [place] [address] Social History Tobacco Use Types [...] Depression Total Score: 7 07/27/2018 7:15 AM RECORDER OF DEEDS documented as of this encounter Care Teams Head Of Ict Relationship Specialty Start Date End Date Rashida Pederson APRN PROFESSIONAL GOLF TOURNAMENT PLAYER PCP - General Nurse Practitioner 10/08/14 [address] [place], [place] [id number] Rashida Pederson APRN PROFESSIONAL GOLF TOURNAMENT PLAYER Assigned PCP 10/14/14 07/26/21 [address] [place] [address] documented as of this encounter
--- OUTSIDE RECORDS SUMMARY | 2022-06-17 09:09 | XMS_ITS | Encounter Summary ---
:1985 Author Organization [facility] Address [address] [place] [address] Care Team Providers Name Role Phone Rashida Pederson APRN, CNP Primary Care Provider [phone] Rashida Pederson APRN, CNP Unavailable [phone] Encounter Details Date Type Department Care Team Description 04/25/2020 [facility] - [facility] Que Davis LPN [address] [place] [id number] Social History Tobacco Use Types Packs/Day Years [...] Total Score: 7 07/27/2018 7:15 AM MANAGER COST documented as of this encounter Care Teams Cut Off Man Relationship Specialty Start Date End Date Rashida Pederson APRN CNP PCP - General Nurse Practitioner 10/08/14 [address] [place] [address] Rashida Pederson, ZIYAD AIRBORNE ELECTRONICS ANALYST Assigned PCP 10/14/14 07/26/21 [address] [place] [address] documented as of this encounter"
--- OUTSIDE RECORDS SUMMARY | 2022-06-17 09:09 | XMS_ITS | Encounter Summary ---
:1985 Author Organization [facility] Address [address] [place] [address] Care Team Providers Name Role Phone Rashida Pederson APRN WIRELESS DEVELOPMENT MANAGER Primary Care Provider [phone] Rashida Pederson APRN WIRELESS DEVELOPMENT MANAGER Unavailable [phone] Encounter Details Date Type Department Care Team Description 05/27/2020 [facility] Paty Lewis [facility] Diamond [address] [place], [place] [address]LEONELA CALLAWAY [address] [place] [address] [facility] [address] [place] [address] Social History Tobacco Use Types [...] Depression Total Score: 7 07/27/2018 7:15 AM JET INSPECTOR documented as of this encounter Care Teams Bankruptcy Law Specialist Relationship Specialty Start Date End Date Rashida Pederson APRN WIRELESS DEVELOPMENT MANAGER PCP - General Nurse Practitioner 10/08/14 [address] [place], [place] [phone] Rashida Pederson APRN WIRELESS DEVELOPMENT MANAGER Assigned PCP 10/14/14 07/26/21 [address] [place], [place] [id number] documented as of this encounter
--- OUTSIDE RECORDS SUMMARY | 2022-06-17 09:09 | XMS_ITS | Encounter Summary ---
:1985 Author Organization [facility] Address [address] [place] [address] Care Team Providers Name Role Phone Rashida Pederson APRN SENIOR SOFTWARE MANAGER Primary Care Provider [phone] Rashida Pederson APRN SENIOR SOFTWARE MANAGER Unavailable [phone] Encounter Details Date Type Department Care Team Description 01/10/2021 Records - [facility] CONVERSION Provider, Histor ica Social History [...] Total Score: 7 07/27/2018 7:15 AM MANAGER UNIX documented as of this encounter Care Teams Nuclear Medicine Supervisor Relationship Specialty Start Date End Date Rashida Pederson APRN SENIOR SOFTWARE MANAGER PCP - General Nurse Practitioner 10/08/14 [address] [place] [address] Rashida Pederson APRN SENIOR SOFTWARE MANAGER Assigned PCP 10/14/14 07/26/21 [address] [place] [address] documented as of this encounter
--- OUTSIDE RECORDS SUMMARY | 2022-06-17 09:09 | XMS_ITS | Encounter Summary ---
:1985 Author Organization [facility] Address [address] [place] [address] Care Team Providers Name Role Phone Rashida Pederson APRN, CNP Primary Care Provider [phone] Rashida Pederson APRN, CNP Unavailable [phone] Encounter Details Date Type Department Care Team Description 04/27/2020 [facility] Rosita clarke [address] [place] [address] Social History Tobacco Use Types [...] Depression Total Score: 7 07/27/2018 7:15 AM OYSTER BUYER documented as of this encounter Care Teams Automotive Parts Clerk Relationship Specialty Start Date End Date Rashida Pederson APRN CNP PCP - General Nurse Practitioner 10/08/14 [address] [place] [address] Rashida Pederson, ZIYAD SURGERY SPECIALIST Assigned PCP 10/14/14 07/26/21 [address] [place] [address] documented as of this encounter
--- OUTSIDE RECORDS SUMMARY | 2022-06-17 09:09 | XMS_ITS | Encounter Summary ---
:1985 Author Organization [facility] Address [address] [place] [address] Care Team Providers Name Role Phone Rashida Pederson APRN BROADCAST FIELD SUPERVISOR Primary Care Provider [phone] Rashida Pederson APRN BROADCAST FIELD SUPERVISOR Unavailable [phone] Encounter Details Date Type Department Care Team Description 04/24/2020 Hospital Encounter [facility] Diana Kilgore APRN CNM [address] [place] [address] Dr Roman [address] [place] [id number] [facility] Paula Park CNM [address] [place] [address] Dr [address] [place] [id number] [address] Social History Tobacco Use Types [...] (Coronavirus) by PCR (04/24/2020 10:46 AM CDT) [facility] Method Time Signature SARS-CoV-2 Nasopharyngeal 04/24/2020 Virus 2:38 PM CDT Specimen Source SARS-CoV-2 NEGATIVE 04/24/2020 PCR Result 2:38 PM CDT Comment: SARS-CoV2 (COVID-19) RNA not de tected, presumed negative. SARS-CoV-2 PCR Comment Testing was performed using the 04/24/2020 2:38 PM CDT Xpert Xpress SARS-CoV-2 Assay on the [employer] Comment: [employer]. Additiona l information about this [...] COVID-19. This test was validated by the [facility]. This laboratory is certified under the Clinical Laboratory Improvement Amendments of 1988 (CLIA-88) as qualified to perform high complexity laboratory testing. Performed and/or entered by: [facility] [address] [place] [address] Specimen (Source) Anatomical Collection Method Collection Time [...] Depression Total Score: 7 07/27/2018 7:15 AM FILE KEEPER documented as of this encounter Care Teams Emissions Testing Technician Relationship Specialty Start Date End Date Rashida Pederson APRN BROADCAST FIELD SUPERVISOR PCP - General Nurse Practitioner 10/08/14 [address] [place], [place] [phone] Rashida Pederson APRN BROADCAST FIELD SUPERVISOR Assigned PCP 10/14/14 07/26/21 [address] [place], [place] [phone] documented as of this encounter
--- OUTSIDE RECORDS SUMMARY | 2022-06-17 09:09 | XMS_ITS | Clinical Summary ---
:1985 Author Organization [facility] [place] [address] Care Team Providers Name Role Phone Fatou Bravo Primary Care Provider [phone] Unknown, Doctor Unavailable Unavailable Allergies Active Allergy [...] VITAMIN ORAL) Active Problems Problem Noted Date [facility] Supervision of high-risk 11/20/2021 Overview: [facility] CONSULTATION ON 12/02/21 -- Virtual Visit REASON [...] age 18 LAST GROWTH: Next: L2US at [facility] on 01/21/22 11/13/21: 10w4d LMP c/w 1st trimester US REFERRING PHYSICIAN/PHONE/LAST UPDATE: Hank Frederick [facility] [phone] Primary MD approves scheduling of recomm ended [...] ral, 15 oz) IV Meds Delivery Location: [facility] Comments: was on Lovenox, pushed 3 hours, OP Current OB Episode Summary Episode Dates Estimated Date of Pregravid Weight TWG (As of ) Delivery 12/02/2021 - Present 06/06/2022 (06/17/2022) Date GA Fund Present FHR Mvmt BP [...] or a discussion with members of the [facility] ent's treatment team, a virtual [...] rather not be. 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 She was referred by Yessenia Frederick CNM [place] The FOB is [place]. He is the father of th is and the previous one. Specialists: States she saw an MFM with her last , never saw a cargo router. Had thrombophilia labs done, states none came back positive (records are not available). Assessment Histories reviewed today include: Past M edical History, Past Surgical History, Social History and Family History and Obstetric History. Refer to the corresponding sections of the history section of Ex[facility] chart and the [facility] Naviga tor for details. Comments under Consult [...] CDT Respiratory Rate 20 10/18/2011 10:14 AM PUMP TECHNICIAN Oxygen Saturation 97% 04/24/2013 1:34 PM CDT [...] ss Type Group PREFERRED ONE PREFERRED ONE [id number] 2020-Ratna [facility] [address] [place] [address] Advance Directives Latest Code Status on File Code Status Date Activated Date Inactivated Comments Full Code 01/22/2008 7:00 PM 01/24/2008 1:53 PM Care Teams Saddle Stitcher Relationship Specialty Start Date End Date Fatou Bravo PA PCP - General Emergency Medicine 11/18/21 [address] [place] [address] Unknown, Doctor 11/18/21 .
--- OUTSIDE RECORDS SUMMARY | 2022-06-17 09:09 | XMS_ITS | Encounter Summary ---
:[address] [facility] Address [address] [place] [address] Home Phone Mobile Phone Email Address Email Address Preferred Language Gambian Marital Status Single Methodist Affiliation Unknown Race White Ethnic Group Unknown Author Organization [facility] Address [address] [place] [address] Care Team Providers Name Role Phone Rashida Pederson APRN GREENHOUSE TRANSPLANTER Primary Care Provider [phone] Rashida Pederson APRN GREENHOUSE TRANSPLANTER Unavailable [phone] Paty Lewis [facility] Unavailable [phone] Reason for Visit Reason Comments Consult Encounter Details Date Type Department Care Team Description 05/23/2020 Ambulatory - [facility] Mihaela Burns C [place] Other disorders of ; [address] D R nipple pain [place] [address] [facility] (Work) [place] [phone] [place], [place] (Fax) [address] Social History Tobacco Use [...] of delivery: vaginal 's MD: BALA Guy, [facility]. [place] gives her permission for today's [...] mouth daily., Disp: , Rfl: 0 ??? prenat.vits,ant,foo-emag-ogchc ( VITAMIN) Tab, Take 2 tablets by [...] Depression Total Score: 7 07/27/2018 7:15 AM TERRAZZO GRINDER documented as of this encounter Care Teams Marine Fire Fighter Relationship Specialty Start Date End Date Rashida Pederson, PCP - General Nurse Practitioner 2/23/15 IMPREGNATOR GREENHOUSE TRANSPLANTER [address] [place] [address] Rashida Pederson, Assigned PCP 10/14/14 IMPREGNATOR GREENHOUSE TRANSPLANTER [address] [place] [address] Paty Lewis Assigned OBGYN Provider 02/28/21 12/13/21 ABDOUL Mcgee [address] [place] [address] documented as of this encounter
--- OUTSIDE RECORDS SUMMARY | 2022-06-17 09:09 | XMS_ITS | Encounter Summary ---
:1985 Author Organization [facility] Address [address] [place] [address] Care Team Providers Name Role Phone Rashida Pederson APRN PLUG AND MOLD FINISHER Primary Care Provider [phone] Rashida Pederson APRN PLUG AND MOLD FINISHER Unavailable [phone] Encounter Details Date Type Department Care Team Description 05/04/2020 Communication - [facility] Karis Hale, [facility] [address] [facility] [address] [facility] [address] [facility] [address] [place] [address] Social History Tobacco Use Types [...] Depression Total Score: 7 07/27/2018 7:15 AM FINANCE ASSOCIATE documented as of this encounter Care Teams Professor Of Voice Relationship Specialty Start Date End Date Rashida Pederson APRN PLUG AND MOLD FINISHER PCP - General Nurse Practitioner 10/08/14 [address] [place] [address] Rashida Pederson APRN PLUG AND MOLD FINISHER Assigned PCP 10/14/14 07/26/21 [address] [place] [address] documented as of this encounter
--- OUTSIDE RECORDS SUMMARY | 2022-06-17 09:09 | XMS_ITS | Encounter Summary ---
:1985 Author Organization [facility] Address [address] [place] [address] Care Team Providers Name Role Phone Rashida Pederson APRN RESEARCH LABORATORY TECHNICIAN Primary Care Provider [phone] Rashida Pederson APRN RESEARCH LABORATORY TECHNICIAN Unavailable [phone] Reason for Visit Reason Comments Care Delivered 04/26/2020 Encounter Details Date Type Department Care Team Description 05/13/2020 Office Visit - [facility] follow-up [facility] [address] [facility] [address] [facility] [address] [place] [phone] [place], [place] (Work) [address] Social History Tobacco Use [...] with concerns. Recommended Alma Prasad group (as [facility] employee it is free). 5. Follow-up at [...] concerns and need to speak with a cotton bag clipper immediately, please call the on-call cotton bag clipper at [phone]. If you have a non-emergent question or would like to schedule a follow up appointment, please call the clinic cotton bag clipper at [phone]. Thank you for sharing your experience with the [facility]. Congratulations on the of your [...] care provider before starting an exercise program. Https://Filmijob/ Http://www.[email or web address]/ @[email or web address] @MyPelvicFloorMuscles @The.Vagina.isper Taking Care of your [...] partner having a vasectomy. Reliable resources: ? [employer] [employer] Nurse-Midwives (ACNM) http://www.cotton bag clipper.org/; look at the informational handouts at http://www.cotton bag clipper.org/Tipmp-Mqxu-Nmklj ?? Women's Health.gov: http://www.womenshealth.gov/a-z-topics/index.html FDA - Nutrition ?www.mypyramid.gov? Under For Consumers, click on and women. ? Vaccines : Centers for Disease Control and Prevention (CDC) http://www.cdc.gov/vaccines/ ? [facility] www.Angel Medical Systemsinic.com ? When researching information on the web, [...] D rich foods: Cod Liver Oil (1Tbsp), Julian, Mackerel, Tuna, fortified milk and yogurt, Beef and liver, sardines, egg, fortified cereals, mexican cheese.? Take supplements with fattiest meal.? ? 2-3 (4) oz servings of fish, seafood, nuts (walnuts & almonds), oils, avocado per week - if not,take [place] 3 Fatty acids: DHA & SAV 0333-8693 mg per day. ?Other names: cod liver oil, fish oil.Take with fattiest meal. ? ? & RESOURCES : Virtual Support: During this time of isolation, families need even more community! Here are some area organizations offering virtual support groups for : ??? [facility] Cafe Support Group, Tuesdays at 10:30 am Run by LIZ Rubin of [employer] Go to [employer] Facebook page and click on events for link [email or web address]://[email or web address]/ ??? [facility] Milk Hour, at 2:30 pm Run by LIZ Mosley Go to [facility] FB page and send message to get link [email or web address]://[email or web address]/ ??? [facility] holding virtual meetings the first Wednesday of each month, 8-9 pm, and the Third Wednesday, 10 - 11 am. Go to Belem Oconnor of [place] and [place] FB page; message to get link [email or web address]://www.[email or web address]/[email or web address]/?hc_location=[facility] ??? [facility] offers a Lounge every Wednesday 12pm - 1pm, run by Harleen Robles Leader Sign up via link at [employer]/cbe- https://www.[employer]/cbe- ??? [facility] is offering virtual support groups every Wednesday, 10:30 am - 12 pm, run by IBCLC Https://www.[email or web address]/ Classes: ??? [facility] is offering virtual and care classes: https://www.[employer]/education-workshops ??? BirthEd childbirth and education offering virtual classes https://www.MESImn.Axeda/workshops : OUTPATIENT RESOURCES -Schedule an appointment with a [facility] ABDOUL who is also a Advisor To [employer] In [employer] by calling [phone]. Temitope Larkin IBROBERTO, CNM at [facility] on Wednesday, Mihaela Burns CNM at [facility] on Tuesdays and [facility] on . [facility] located at [facility] Call: [phone]. ??? Inpatient support ??? Outpatient appointments ??? Telephone consultation ??? Breast-feeding classes available through meevl [facility]/PAC/[facility] improvement partnership: Baby Caf?? and interested [...] the Baby Caf?? closest to you! [facility] [address] [place] [address] Wednesday: 10am-12pm [facility] [address] [place] [address] Wednesday 4-6pm [facility] [address] [place] [address] Wednesday 10am-12:30pm [facility] [address] [place] [address] Wednesdays: 4-6pm Hmong, Jamaican, and Slovenian which is may be available at some sites. For more information, please contact: Beatris Borges@[facility]. or [phone] -[facility]: www.select specialty hospitalClub Point.Axeda -Attend a baby weigh in at [place]. consultants are available to answer questions [place]: Tuesdays 1:00 - 2:00 [facility], [facility] Mondays 1:00 - 2:00 -Attend a New Mamma group or a Second Time Mama group at [place]. -Enlightened Mama: www.enlightenedSmacktive.comsc.Axeda -Attend one of the New Mama groups at [facility] in [facility] also offers one-on-one in home and in office consults. -LaLecheLeague: www.lllofmlizas.org/ -Attend a Lukas League meeting. Multiple groups in several locations throughout the [facility]. The meetings are no-cost and always informative education session through [employer] Belem Oconnor Held at [facility] the of each month at 7pm - Information on medication use while : http://toxnet.nlm.nih.gov/newtoxnet/lactmed.htm Other Online Resources: ??? healtheast.org/baby sign up for free online weekly e-mail ??? healtheast.org/maternity ??? Breastfeedingmadesimple.com ??? Llli.org (Belem Oconnor) ??? Normalfed.com ??? Womenshealth.gov/ ??? Shots.Axeda ??? Upstream Commerce ??? https://EpiSensor.Axeda/abcs/ Click on Learn More About Attachment -New Parent Connection Drop-In: In collaboration with [facility], Accounts Receivable Administrator Family Education (ECFE), a program of [address], offers ongoing classes for new parents [...] meet Tuesdays, from 4 to 5 PM -[employer] New Mama Group: www.[employer]/urza-uwv-ngek-group -Attend First Warning Systems New Mama. Groups located at three locations: [facility] and [place]. Sign up online. Additional Resources:? -[employer] College of Nurse-Midwives (ACNM) http://www.cotton bag clipper.org/; look at the informational handouts at http://www.cotton bag clipper.org/Lftlz-Rkxm-Auksg www.mymidwife.org ? -Women's Health.gov: http://www.womenshealth.gov/a-z-topics/index.html ? -Accounts Receivable Administrator and Family Education (ECFE): ECFE offers parents [...] women may experience. Resources: - and Support [place]: www.[facility].org Who We Are: We are a group of mental health & practitioners, service organizations, and mother volunteers who provides services to those struggling with a , loss, or mood disorder through the Helpline, professional training, our resource list and website. What We Do: We provide support, advocacy, awareness, and training about mental health in [place]. Community Resource List: This is a list of resources within our community. http://ppsupportfl.org/communityresourcelist PSYCHOTHERAPISTS/CONSULTANTS This is a list of licensed mental health professionals who have advanced clinical skills in the treatment of mood and anxiety disorders (PMADs). Http://ppsupportfl.org/mentalhealthproviderresourcelist INTEGRATIVE MEDICINE PRACTITIONERS: This is a list [...] in the area of PMADs. Please note: [facility] does not endorse a specific provider. The list is in alphabetical order by city. You can also search for providers by city or zip code using the search box. Please click on the Show box to the upper right to advance to the next page. Youmay also call our Helpline at [phone] if you would like for our Helpline volunteer to find a provider for you. - Depression Support Group: Weekly groups at no cost through [facility], Tuesdays, 1:30-3:00 p.m., at [facility], [address] [facility], [address]. [place], Wednesdays, 1:30-3:00 p.m., at [facility], [address] To register for the group or get more information, call [phone]. - Depression Support Group: Outpatient Intensive Treatment program for women with mood disorders [facility] Mother/Baby Program -[facility] Resource Guide Women???s Mental Health at [facility] This website provides a range of [...] National Suicide Prevention Lifeline: Suicide Prevention Hotline: 8-243-MXTQEUF National Depression Hotline: 7-761-WHS-MOMS Support International (PSI) PPD Helpline: (not a 24-hour hotline) documented in this encounter Plan of Treatment Not on filedocumented as of this encounter Visit Diagnoses Diagnosis Routine follow-up documented in this encounter Additional Health Concerns Assessment Noted Time PHQ-9 Depression Total Score: 7 07/27/2018 7:15 AM AIRPORT MAINTENANCE LABORER documented as of this encounter Care Teams Tail Dogger Relationship Specialty Start Date End Date Rashida Pederson APRN RESEARCH LABORATORY TECHNICIAN PCP - General Nurse Practitioner 10/08/14 [address] [place], [place] [id number] Rashida Pederson APRN RESEARCH LABORATORY TECHNICIAN Assigned PCP 10/14/14 07/26/21 [address] [place], [place] [id number] documented as of this encounter
--- OUTSIDE RECORDS SUMMARY | 2022-06-17 09:09 | XMS_ITS | Encounter Summary ---
:1985 Author Organization [facility] Address [address] [place] [address] Care Team Providers Name Role Phone Rashida Pederson APRN, CNP Primary Care Provider [phone] Rashida Pederson APRN, CNP Unavailable [phone] Encounter Details Date Type Department Care Team Description 04/29/2020 Home Care/Hospice - [facility] [place], [address] [place] [address] Social History Tobacco Use Types [...] Depression Total Score: 7 07/27/2018 7:15 AM BLOCK OUT MACHINE OPERATOR documented as of this encounter Care Teams Hydrometeorologist Relationship Specialty Start Date End Date Rashida Pederson APRN CNP PCP - General Nurse Practitioner 10/08/14 [address] [place], [place] [id number] Rashida Pederson, ZIYAD REPAIRER GENERAL Assigned PCP 10/14/14 07/26/21 [address] [place] [address] documented as of this encounter
--- OUTSIDE RECORDS SUMMARY | 2022-06-17 09:09 | XMS_ITS | Encounter Summary ---
:1985 Author Organization [facility] Address [address] [place] [address] Care Team Providers Name Role Phone Rashida Pederson APRN, CNP Primary Care Provider [phone] Rashida Pederson APRN, CNP Unavailable [phone] Encounter Details Date Type Department Care Team Description 06/26/2020 Medical Correspondence [facility] Health Info Mgmt Non-Provider LUZ ELENA MARADIAGA [facility] [address] [place] [address] Social History Tobacco Use Types [...] Depression Total Score: 7 07/27/2018 7:15 AM SUPPLY CHAIN BUYER documented as of this encounter Care Teams Adult Caregiver Relationship Specialty Start Date End Date Rashida Pederson APRN CNP PCP - General Nurse Practitioner 10/08/14 [address] [place] [address] Rashida Pederson, INTELLIGENCE ENGINEER PROJECT CONSTRUCTION MANAGER Assigned PCP 10/14/14 07/26/21 [address] [place] [address] documented as of this encounter
--- OUTSIDE RECORDS SUMMARY | 2022-06-17 09:09 | XMS_ITS | Encounter Summary ---
:1985 Author Organization [facility] Address [address] [place] [address] Care Team Providers Name Role Phone Rashida Pederson APRN REVERSE UNIT OPERATOR Primary Care Provider [phone] Rashida Pederson APRN REVERSE UNIT OPERATOR Unavailable [phone] Reason for Visit Reason Comments Care [id number] Encounter Details Date Type Department Care Team Description 04/23/2020 Office [facility] , third trimester; [facility] - [facility] Paty Briseno ed BP without diagnosis of hypertension; Diamond Mcgee CNM History of pulmonary embolism; [address] [facility] [facility] k for venous thromboembolism (VTE) Drive [address] [place], [place] [address] [place], [place] [phone] [address] (Work) [phone] Social History Tobacco Use Types Packs/Day Years [...] cuff). She sent the reading in through [employer] yesterday and reported that she normally has [...] this. [facility]OL set for at 0730 at [facility]. Plan for on-call CNM to make a [...] (specimen) Unknown PM CDT PM CDT Paty [facility] LAB - BLOOD ORDERABLES ALT (04/23/2020 3:06 PM CDT) athologist Signature ALT <9 0 - 45 U/L 04/23/2020 6:48 PM CDT Specimen Anatomical Collection Method / Collection Time Recei merry Time (Source) Location / Volume Laterality Blood specimen Venipuncture / 04/23/2020 3:06 04/23/20 20 6:12 (specimen) Unknown PM CDT PM CDT Paty [facility] LAB - BLOOD ORDERABLES Uric acid (04/23/2020 3:06 PM CDT) athologist Signature Uric Acid 5.3 2.0 - 7.5 04/23/2020 6:50 mg/dL PM CDT Specimen Anatomical Collection Method / Collection Time Recei merry Time (Source) Location / Volume Laterality Blood specimen Venipuncture / 04/23/2020 3:06 04/23/20 20 6:12 (specimen) Unknown PM CDT PM CDT Paty [facility] LAB - BLOOD ORDERABLES Protein random urine [...] the clinical context for interpreta tion. Paty [facility] LAB - URINE ORDERABLES CBC with platelets [...] Unknown PM CDT PM CDT Paty [facility] - BLOOD ORDERABLES Partial thromboplastin time (04/23/2020 3:06 PM CDT) athologist Signature aPTT 27 24 - 37 04/23/2020 seconds 6:37 PM CDT Specimen Anatomical Collection Method / Collection Time Recei merry Time (Source) Location / Volume Laterality Blood specimen Venipuncture / 04/23/2020 3:06 04/23/20 20 6:14 (specimen) Unknown PM CDT PM CDT Paty [facility] LAB - BLOOD ORDERABLES INR (04/23/2020 3:06 PM CDT) athologist Signature INR 0.97 0.90 - 1.10 04/23/2020 6:36 PM CDT Specimen Anatomical Collection Method / Collection Time Recei mrery Time (Source) Location / Volume Laterality Blood [...] Depression Total Score: 7 07/27/2018 7:15 AM LUBRICATION SERVICER documented as of this encounter Care Teams Insole And Outsole Splitter Relationship Specialty Start Date End Date Rashida Pederson APRN REVERSE UNIT OPERATOR PCP - General Nurse Practitioner 10/08/14 [address] [place] [address] Rashida Pederson APRN REVERSE UNIT OPERATOR Assigned PCP 10/14/14 07/26/21 [address] [place] [address] documented as of this encounter
--- OUTSIDE RECORDS SUMMARY | 2022-06-17 09:09 | XMS_ITS | Encounter Summary ---
:1985 Author Organization [facility] Address [address] [place] [address] Care Team Providers Name Role Phone Rashida Pederson APRN CLAIMS ADMINISTRATOR Primary Care Provider [phone] Rashida Pederson APRN CLAIMS ADMINISTRATOR Unavailable [phone] Reason for Visit Reason Comments Post Exam Contraception IUD placement Encounter Details Date Type Department Care Team Description 06/11/2020 Office Visit - [facility] Paty Lewis follow-up; [facility] Screening for cervical cancer; Diamond GONSALES DR Encounter for intrauterine device placem ent; Akil Diamond [place], [place] BMI 40.0-44.9 , adult (H); [address] [address] IUD (intrauterine device) in place; Diamond Ernst [phone] General coun seling and advice on contraceptive management Center (Work) [place], [place] [phone] [address] (Fax) [phone] Social History Tobacco Use Types Packs/Day Years [...] done at today's visit. Due for annual Stem Setter exam in 1 year. 2. Desired contraception: [...] of a PNV or MV, Vitamin D3 0105-1931 IUs, and an omega 3 fatty acid [...] condom. No unprotected intercourse. Desired contraception: IUD. [place] depression screening score: 3. Review of Systems [...] was minimal. IUD Information: Mirena Lot # [id number], Expiration date Condition: Stable Complications: None Patient [...] concerns and need to speak with a benzene washer immediately, please call the on-call benzene washer at [phone]. If you have a non-emergent question or would like to schedule a follow up appointment, please call the clinic benzene washer at [phone]. Thank you for sharing your experience with the [facility] Midwives. Congratulations on the of your baby! [...] care provider before starting an exercise program. Https://GI-View/ Http://www.Breaktime Studios.Curalate/ @PelvicGuluzma1 @DinahPelvicFloorMuscles @The.Vagina.Rafaelperer Taking Care of your [...] partner having a vasectomy. Reliable resources: ? [employer] [place] [employer] Nurse-Midwives (ACNM) http://www.benzene washer.org/; look at the informational handouts at http://www.benzene washer.org/Btocp-Fagp-Wdlft ?? Women's Health.gov: http://www.womenshealth.gov/a-z-topics/index.html FDA - Nutrition ?www.mypyramid.gov? Under For Consumers, click on and women. ? Vaccines : Centers for Disease Control and Prevention (CDC) http://www.cdc.gov/vaccines/ ? [facility] www.[facility].com ? When researching information on the web, question the validity of websites.? The domains .gov, .Miyaobabei and.org tend to be more reliable information.? [...] D rich foods: Cod Liver Oil (1Tbsp), [place], Mackerel, Tuna, fortified milk and yogurt, Beef and liver, sardines, egg, fortified cereals, finnish cheese.? Take supplements with fattiest meal.? ? 2-3 (4) oz servings of fish, seafood, nuts (walnuts & almonds), oils, avocado per week - if not,take Jesup 3 Fatty acids: DHA & SAV 4011-4486 mg per day. ?Other names: cod liver [...] page and click on events for link https://www.Oz Sonotek.com/events/[email or web address]/ ??? [facility] Milk Hour, at 2:30 pm Run by LIZ Mosley Go to [facility] FB page and send message to get link https://www.Oz Sonotek.Curalate/NexSteppe/ ??? [facility] holding virtual meetings the first Wednesday of each month, 8-9 pm, and the Third Wednesday, 10 - 11 am. Go to [facility] [place] FB page; message to get link https://www.Oz Sonotek.Curalate/LLLofGoldAmanuel/?hc_location=[facility] ??? [employer] offers a Lounge every Wednesday 12pm - 1pm, run by Yessenia Fernandes [facility] Leader Sign up via link at DailyBurn/cbe- https://www.DailyBurn/cbe- ??? [facility] is offering virtual support groups every Wednesday, 10:30 am - 12 pm, run bynurse HILL Https://www.Oz Sonotek.Curalate/events/[email or web address]/ Classes: ??? [employer] is offering virtual and care classes: https://www.DailyBurn/education-workshops ??? BirthEd childbirth and education offering virtual classes https://www.Criers Podium.com/workshops : OUTPATIENT RESOURCES -Schedule an appointment with a [facility] ABDOUL who is also a Fire Investigation Manager by calling [phone]. Temitope Larkin IBROBERTO, CNM at [facility] on Wednesday, Mihaela Burns CNM at [facility] on Tuesdays and [facility] on . [facility] Clinics located at [place]???[facility] Call: [phone]. ??? Inpatient support ??? Outpatient appointments ??? Telephone consultation ??? Breast-feeding classes available through [employer] [facility] health improvement [facility]: Baby Caf?? and interested in ? Need [...] for the Baby Caf?? closest to you! [facility] [address] [place] [address] Wednesday: 10am-12pm [facility] [address] [place] [address] Wednesday 4-6pm [facility] [address] [place] [address] Wednesday 10am-12:30pm ong [employer] [address] [place] [address] Wednesdays: 4-6pm Hmong, Czech, and Yemeni which is may be available at some sites. For more information, please contact: Beatris Borges@[facility]. or [phone] -[facility]: www.[facility] hospitaler.Curalate -Attend a baby weigh in at [facility]. consultants are available to answer questions [place]: Tuesdays 1:00 - 2:00 [facility]: Mondays 1:00 - 2:00 -Attend a New Mamma group or a Second Time Mama group at [facility]. -Enlightened Mama: www.[place] IlluminationenedUannaBepr.com -Attend one of the New Mama groups at [facility] in [facility]. [facility] also offers one-on-one in home and in office consults. -[place]: www.acosta.org/ -Attend a Mayurihe League meeting. Multiple groups in several locations throughout the [facility]. The meetings are no-cost and always informative education session through Intern[employer] Belem Oconnor Held at [facility] the of each month at 7pm - Information on medication use while : http://toxnet.nlm.nih.gov/newtoxnet/lactmed.htm Other Online Resources: ??? healtheast.org/baby sign up for free online weekly e-mail ??? healtheast.org/maternity ??? Breastfeedingmadesimple.com ??? Llli.org (Belem [place]ano Baileyeverett) ??? Normalfed.com ??? Womenshealth.gov/ ??? The Fanfare Group.Curalate ??? Italia Pellets.Curalate ??? https://be2/abcs/ Click on Learn More About Attachment -New Parent Connection Drop-In: In collaboration with Diamond, Financial Services Professional Family Education (ECFE), a program of [address], offers ongoing classes for new parents [...] meet Tuesdays, from 4 to 5 PM -ReSnap New Mama Group: www.DailyBurn/neqq-whh-rpbc-group -Attend [facility]Care Life Sciencess [employer] New Mama. Groups located at three locations: [place], [place] and [place]. Sign up online. Additional Resources:? -[employer] Nurse-Midwives (ACNM) http://www.benzene washer.org/; look at the informational handouts at http://www.benzene washer.org/Ljwkj-Lqwp-Gafrb www.mymidwife.org ? -Women's Health.gov: http://www.womenshealth.gov/a-z-topics/index.html ? -Financial Services Professional and Family Education (ECFE): ECFE offers parents [...] women may experience. Resources: - and Support [place]: www.[facility].org Who We Are: We are a group of mental health & practitioners, service organizations, and mother volunteers who provides services to those struggling with a , loss, or mood disorder through the Helpline, professional training, our resource list and website. What We Do: We provide support, advocacy, awareness, and training about mental health in [place]. Community Resource List: This is a list of resources within our community. http://[facility] hospital[facility]me.org/communityresourcelist PSYCHOTHERAPISTS/CONSULTANTS This is a list of licensed mental health professionals who have advanced clinical skills in the treatment of mood and anxiety disorders (PMADs). Http://[facility].org/mentalhealthproviderresourcelist INTEGRATIVE MEDICINE PRACTITIONERS: This is a list of licensed providers who practice Integrative Medicine: a form of treatment that combines alternative medicine with evidence based medicine in an effort to treat the ???whole person?? (the person, not just the disease). http://[facility].org/integrativemedicineproviders PSYCHIATRIC CARE This is a list of licensed Psychiatrists who have advanced clinical skills in the treatment and medication management for PMADs and lactating mothers. Http://[facility].org/psychiatryproviderresroucelist Click on the links below to find detailed profiles and contact information of providers who have been screened and approved as having advanced training in the area of PMADs. Please note: [facility] does not endorse a specific provider. The list is in alphabetical order by city. You can also search for providers by [facility] or [facility] using the search box. Please click on the Show box to the upper right to advance to the next page. Youmay also call our Helpline at [phone] if you would like for our Helpline volunteer to find a provider for you. - Depression Support Group: Weekly groups at no cost through [facility], Tuesdays, 1:30-3:00 p.m., at [facility], [address] [facility], [address]. [place], Wednesdays, 1:30-3:00 p.m., at [facility], [address] To register for the group or get more information, call [phone]. - Depression Support Group: Outpatient Intensive Treatment program for women with mood disorders [facility] Mother/Baby Program -[facility] Resource Guide Women???s Mental Health at [facility] This website provides a range of [...] National Suicide Prevention Lifeline: Suicide Prevention Hotline: 8-632-QWOZOLY National Depression Hotline: 7-629-YFB-MOMS Support International (PSI) PPD Helpline: (not a [...] Case Report Gynecologic Cytology Report ? Case: [id number] ? Authorizing Provider: ??Paty Edmondson, ? Collected: ? 06/11/2020 1433 ? 0 2:53 PM ? ZIYAD,ABDOUL ? WEEKDAY BABYSITTER Ordering Location: ? Lemuel Santizo [facility] ?? Received: ?06/11/2020 1433 ? [facility] ? First Screen: ? Davida Glass CT ? (ASCP) ? Specimen: ?SUREPATH PAP, SCREENING, Endocervical/cervical ? Interpretation Negative for squamous intraepithelial le deb or malignancy Negative for at ??2:53 PM squamous 0 2:53 PM intraepithelial WEEKDAY BABYSITTER lesion or malignancy. Result Flag Normal Normal 0 2:53 PM WEEKDAY BABYSITTER Specimen Satisfactory for Adequacy evaluation, 0 2:53 PM endocervical/tra WEEKDAY BABYSITTER nsformation zone component present Reflex Testing Yes regardless of result 0 2:53 PM WEEKDAY BABYSITTER High Risk? No 0 2:53 PM WEEKDAY BABYSITTER LMP/Menopause Date 0 2:53 PM WEEKDAY BABYSITTER Abnormal No Bleeding 0 2:53 PM WEEKDAY BABYSITTER Patient Status 0 2:53 PM WEEKDAY BABYSITTER None Control/Hormone 0 2:53 PM s WEEKDAY BABYSITTER Previous Normal 2015 0 2:53 PM WEEKDAY BABYSITTER Previous no Abnormal? 0 2:53 PM WEEKDAY BABYSITTER Cervical normal, parous Appearance 0 2:53 PM WEEKDAY BABYSITTER Specimen Anatomical Collection Method Collection Time Receive d Time (Source) Location / / Volume Laterality Specimen from CERVIX UTERI 06/11/2020 2:33 PM 06/12/20 20 8:28 genital system STRUCTURE / CDT AM CDT (specimen) Unknown Narrative This result has an attachment that is no t available. Paty Lewis [facility] - BEAKER AP HPV High Risk [...] its performa nce characteristics determined by the [facility], Molecular Diagnostics Laboratory. It has not been [...] PM CDT Comment: Performed and/or entered by: [address] [address] Specimen Anatomical Collection Method Collection Time Receive [...] Depression Total Score: 7 07/27/2018 7:15 AM WEEKDAY BABYSITTER documented as of this encounter Care Teams Shipping Processor Relationship Specialty Start Date End Date Rashida Pederson APRN CLAIMS ADMINISTRATOR PCP - General Nurse Practitioner 10/08/14 [address] [place] [address] Rashida Pederson APRN CLAIMS ADMINISTRATOR Assigned PCP 10/14/14 07/26/21 [address] [place], [place] [id number] documented as of this encounter
--- OUTSIDE RECORDS SUMMARY | 2022-06-17 09:10 | XMS_ITS | Encounter Summary ---
:1985 Author Organization [facility] Address [address] [place] [address] Care Team Providers Name Role Phone Rashida Pederson APRN CARAMEL CANDY MAKER Primary Care Provider [phone] Rashida Pederson APRN CARAMEL CANDY MAKER Unavailable [phone] Encounter Details Date Type Department Care Team Description 04/17/2020 Communication - [facility] Junie Saavedra, [facility] [address] [place] [address] Social History Tobacco Use Types [...] Depression Total Score: 7 07/27/2018 7:15 AM 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
--- OUTSIDE RECORDS SUMMARY | 2022-06-17 09:10 | XMS_ITS | Encounter Summary ---
:1985 Author Organization [facility] Address [address] [place] [address] Care Team Providers Name Role Phone Rashida Pederson APRN ARMATURE CONNECTOR Primary Care Provider [phone] Rashida Pederson APRN ARMATURE CONNECTOR Unavailable [phone] Reason for Visit Reason Comments Care Encounter Details Date Type Department Care Team Description 04/04/2020 Office [facility] Karis Hale High -risk Visit - [facility] [[email or web address]] A, [facility] , third [place] [place] [address] [phone] [address] (Work) [phone] Social History Tobacco Use Types Packs/Day Years [...] provider. There are a few in the [facility] especially noted for their work with women. ACUPUNCTURE: 1.) (Multiple CNMs) Felix Decker [facility] [address] [place] [address] http://[facility].com/ 2.) (Multiple CNMs) Carli Ferguson [facility] [place] [address] [facility] [place], [place] [id number] http://acupuncturesheffield.com/ 3.) (AO) Leia Pierce [facility] [address] [place], [place] [id number] http://www.Maxcyte.com/ 4.) (Multiple CNMs) Marcia Martin [facility] [address] [place] [address] http://www.SeeWhy.Appier/ 5.) (VH) [facility] [address] [place] [address] http://2Win-Solutions.Appier/ (Sliding fee scale) 6.) (BZ) [facility] [place] [address] [facility], [address] [place] [address] https://www.Urban Times.Appier/ 7.) (BZ) [address], [address] [place] [address] https://FusionAdsthomas jefferson university hospitalZonbo Media 8.) (AJ) Nikky Clark [facility] [address] [place] [address] https://Photos I LikeResource Guru.Appier 9.) [facility] Visual Stylist Clinic [phone] Ext. 1 to schedule an appointment. [address] [place] [address] http://www.[facility]/clinic/ The [facility] Visual Stylist Clinic is an inexpensive way to invest [...] printed out and presented at the clinic street light repairer desk for a $18 introductory treatment. Interns are available Wednesday- 8:30 a.m. to 9:00 p.m. and Wednesday-Wednesday 8:30 a.m. to 5:30 p.m. Prices and offerings subject to change. 10.) [facility] [address] [place] [address] p: [phone] https://www.[facility]/kffjst-glxson-xpcztbgbqyq/clinical-services/ The [facility] is an integrative health clinic of [facility]. The clinic is located on the [facility] in [place], [place]. We believe integrative health care focuses [...] patients are seen by faculty clinicians. For clinical care leader, our faculty clinicians are assisted by upper-trimester students of [facility]. Our clinical services include chiropractic, acupuncture, Ukrainian herbal medicine, massage therapy, naturopathic medicine and physical therapy services. 11.) [facility] [employer] [facility] [address] https://www.everyday-miracles.org/community-acupuncture Advanced students from the [employer] and [employer] [employer] (AAAOM), supervisedby a Rn House Supervisor and Nurse Practitioner will be offering community style acupuncture at [facility] at no cost. We will have one to two student practitioner per week. This service is by appointment only. documented in this encounter Plan of Treatment Not on filedocumented as of this encounter Visit Diagnoses Diagnosis High-risk , third trimester documented in this encounter Additional Health Concerns Assessment Noted Time PHQ-9 Depression Total Score: 7 07/27/2018 7:15 AM RESIDENTIAL PLUMBER documented as of this encounter Care Teams Die Designer Relationship Specialty Start Date End Date Rashida Pederson APRN CNP PCP - General Nurse Practitioner 10/08/14 [address] [place] [address] Rashida Pederson APRN CNP Assigned PCP 10/14/14 07/26/21 [address] [place] [address] documented as of this encounter
--- OUTSIDE RECORDS SUMMARY | 2022-06-17 09:10 | XMS_ITS | Encounter Summary ---
:1985 Author Organization [facility] Address [address] [place] [address] Care Team Providers Name Role Phone Rashida Pederson APRN OUTBOUND SALES ADVISOR Primary Care Provider Rashida Pederson APRN OUTBOUND SALES ADVISOR Unavailable [phone] Reason for Visit Reason Comments Care [id number] Encounter Details Date Type Department Care Team Description 04/10/2020 Office [facility] Junie Saavedra h-risk , third trimester; Visit - [facility] A, CNLemuel History of pulmonary embolism; [place] [address] BMI 39.0-39.9,adult; [address] At high risk for venous thromboembolism (VTE); Drive [address] Rh negative, antepartum [place] [facility] [address] [place] [address] [phone] [address] (Work) [phone] Social History Tobacco Use Types Packs/Day Years [...] Depression Total Score: 7 07/27/2018 7:15 AM ETL LEAD documented as of this encounter Care Teams Independent Consultant Relationship Specialty Start Date End Date Rashida Pederson APRN OUTBOUND SALES ADVISOR PCP - General Nurse Practitioner 10/08/14 [address] [place] [address] Rashida Pederson, ZIYAD OUTBOUND SALES ADVISOR Assigned PCP 10/14/14 07/26/21 [address] [place] [address] documented as of this encounter
--- OUTSIDE RECORDS SUMMARY | 2022-06-17 09:10 | XMS_ITS | Encounter Summary ---
:1985 Author Organization [facility] Address [address] [place] [address] Care Team Providers Name Role Phone Rashida Pederson APRN LABORER SYRUP MACHINE Primary Care Provider [phone] Rashida Pederson APRN LABORER SYRUP MACHINE Unavailable [phone] Reason for Visit Reason Comments Care 36w4d Encounter Details Date Type Department Care Team Description 03/25/[address] [facility] Fatoumata Park, At [place] gh risk for venous thromboembolism (VTE); Visit - [facility] CN Rh negative, antepartum; Diamond [facility] Diamond High-risk , third t rimester [address] [place] [address] [facility] [address] [place] [address] [phone] [address] (Work) [phone] Social History Tobacco Use Types Packs/Day Years [...] Park APRN, CNM Service: -- Author Type: Damaged Freight Inspector Filed: 03/25/2020 2:38 PM Encounter Date: 03/25/2020 Status: Signed Driver Wheelchair: Fatoumata Park APRN, CNM (Damaged Freight Inspector) Addended by: FATOUMATA PARK. on: 03/25/2020 02:38 [...] 03/26/2020 1:21 PM CDT Intended use: The Maven Xpert GBS LB Assay, performe d on the [employer]?? Reading Trails Systems, is a qualitative in vitro diagnostic [...] or monitor treatment for GBS infections. ??The pinnacle-ecsid Xpert GBS LB Assay is intended for use in hospital, reference or state laboratory settings. ??The device is not intended for lwtug-rw-mdot use. Methodology: The [employer] Instrument Systems automat e and integrate sample [...] Signature Hemoglobin 12.3 12.0 - 16.0 03/25/[address] [facility] g/dL 1:17 PM CDT [facility] Specimen Anatomical Collection Method / Collection Time Recei merry Time (Source) Location / Volume Laterality Blood specimen Venipuncture / 03/25/2020 1:16 03/25/20 20 1:16 (specimen) Unknown PM CDT PM CDT Fatoumata Mckinney Vivian [facility] - BLOOD ORDERABLES Performing Organization Address City/State/ZIP Code Phon e Number [facility] [place], [place] [address] Damaged Freight Inspector Lab [address] [place] [address] 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
--- OUTSIDE RECORDS SUMMARY | 2022-06-17 09:10 | XMS_ITS | Encounter Summary ---
:1985 Author Organization [facility] Address [address] [place] [address] Care Team Providers Name Role Phone Rashida Pederson APRN ORDER ENTRY Primary Care Provider [phone] Rashida Pederson APRN ORDER ENTRY Unavailable [phone] Reason for Visit Reason Comments Medication Question Encounter Details Date Type Department Care Team Description 03/26/2020 Communication - [facility] Paula [place], [facility] Midwifery [facility] Question Patient Access [address] [id number] Social History Tobacco Use Types Packs/Day [...] pandemic. She has a call into the [facility] and is awaiting their response. [...] Depression Total Score: 7 07/27/2018 7:15 AM BLUE LINE OPERATOR documented as of this encounter Care Teams Plywood And Veneer Repairer Relationship Specialty Start Date End Date Rashida Pederson APRN ORDER ENTRY PCP - General Nurse Practitioner 10/08/14 [address] [place] [address] Rashida Pederson APRN ORDER ENTRY Assigned PCP 10/14/14 07/26/21 [address] [place], [place] [id number] documented as of this encounter
--- OUTSIDE RECORDS SUMMARY | 2022-06-17 09:10 | XMS_ITS | Encounter Summary ---
:1985 Author Organization [place] Address [address] [place] [address] Care Team Providers Name Role Phone Rashida Pederson APRN FLIGHT OPERATIONS ENGINEER Primary Care Provider [phone] Rashida Pederson APRN FLIGHT OPERATIONS ENGINEER Unavailable [phone] Reason for Visit Reason Comments Hypertension Encounter Details Date Type Department Care Team Description 04/21/2020 [facility] ABDOUL Ingram [facility] DRU CALLAAWY [facility] [address] [facility] [address] [facility] (Work) [place] [address] Social History Tobacco Use Types [...] a further discussion on IOL with the night guard on that day, she declined the IOL and planned follow up in the clinic for 04/25/20. After reviewing her visit note, it appears her BP was mildly elevated at 138/93, thus initiating the call today. Logan states she knew about the elevation and reported the next reading in triage was normal- states she and the night guard talked about it as well. She feels [...] of call after review. She lives in [place] and declines triage visit today for BP [...] Depression Total Score: 7 07/27/2018 7:15 AM DAIRY TECHNICIAN documented as of this encounter Care Teams Infrastructure Analyst Relationship Specialty Start Date End Date Rashida Pederson APRN CNP PCP - General Nurse Practitioner 10/08/14 [address] [place] [address] Rashida Pederson APRN CNP Assigned PCP 10/14/14 07/26/21 [address] [place] [address] documented as of this encounter
--- OUTSIDE RECORDS SUMMARY | 2022-06-17 09:10 | XMS_ITS | Encounter Summary ---
:1985 Author Organization [facility] Address [address] [place] [address] Care Team Providers Name Role Phone Rashida Pederson APRN AUTOMOTIVE SPECIALTY TECHNICIAN Primary Care Provider [phone] Rashida Pederson APRN AUTOMOTIVE SPECIALTY TECHNICIAN Unavailable [phone] Encounter Details Date Type Department Care Team Description 03/25/2020 Communication - [facility] Paula Park CNM [address] [address] [address] [facility] [place] [address] Social History Tobacco Use Types [...] Depression Total Score: 7 07/27/2018 7:15 AM OPTOMETRIC ASSISTANT documented as of this encounter Care Teams Edging Machine Feeder Relationship Specialty Start Date End Date Rashida Pederson APRN AUTOMOTIVE SPECIALTY TECHNICIAN PCP - General Nurse Practitioner 10/08/14 [address] [place], [place] [phone] Rashida Pederson APRN AUTOMOTIVE SPECIALTY TECHNICIAN Assigned PCP 10/14/14 07/26/21 [address] [place], [place] [id number] documented as of this encounter
--- OUTSIDE RECORDS SUMMARY | 2022-06-17 09:10 | XMS_ITS | Encounter Summary ---
:1985 Author Organization [facility] Address [address] [place] [address] Care Team Providers Name Role Phone Rashida Pederson APRN BUSHEL GIRL Primary Care Provider [phone] Rashida Pederson APRN BUSHEL GIRL Unavailable [phone] Reason for Visit Reason Comments Patient Request Encounter Details Date Type Department Care Team Description 04/17/2020 Communication - [facility] Junie Saavedra [facility] AABDOUL Patient Access [address] [address] [phone] Social History Tobacco Use Types Packs/Day Years [...] only have openings on Wednesday here at [facility]. She scheduled for Wednesday but would like KZ to call her and speak to her and confirm it is ok to be seen on Wednesday documented in this encounter Plan of Treatment Not on filedocumented as of this encounter Visit Diagnoses Not on filedocumented in this encounter Additional Health Concerns Assessment Noted Time PHQ-9 Depression Total Score: 7 07/27/2018 7:15 AM YARN HANDLER documented as of this encounter Care Teams Vending Service Technician Relationship Specialty Start Date End Date Rashida Pederson APRN CNP PCP - General Nurse Practitioner 10/08/14 [address] [place], [place] [phone] Rashida Pederson APRN BUSHEL GIRL Assigned PCP 10/14/14 07/26/21 [address] [place] [address] documented as of this encounter
--- OUTSIDE RECORDS SUMMARY | 2022-06-17 09:10 | XMS_ITS | Encounter Summary ---
:1985 Author Organization [place] Address [address] [place] [address] Care Team Providers Name Role Phone Rashida Pederson APRN EARLY CHILDHOOD WORKER Primary Care Provider [phone] Rashida Pederson APRN EARLY CHILDHOOD WORKER Unavailable [phone] Reason for Visit Reason Comments Patient Request Encounter Details Date Type Department Care Team Description 04/19/2020 Communication - [facility] Karis Hale ent Request [facility] Midwifery A CNLemuel Patient Access [address] [address] [phone] Social History Tobacco Use Types Packs/Day Years [...] per on-call CNM, patient should report [facility] following BPP to discuss results with CNM, [...] Depression Total Score: 7 07/27/2018 7:15 AM TRANSCRIPT EVALUATOR documented as of this encounter Care Teams Cancer Spec Relationship Specialty Start Date End Date Rashida Pederson APRN EARLY CHILDHOOD WORKER PCP - General Nurse Practitioner 10/08/14 [address] [place] [address] Rashida Peedrson APRN EARLY CHILDHOOD WORKER Assigned PCP 10/14/14 07/26/21 [address] [place] [address] documented as of this encounter
--- OUTSIDE RECORDS SUMMARY | 2022-06-17 09:10 | XMS_ITS | Encounter Summary ---
:1985 Author Organization [facility] [place] Address [address] [place] [address] Care Team Providers Name Role Phone Rashida Pederson APRN INTEGRATION DIRECTOR Primary Care Provider [phone] Rashida Pederson APRN INTEGRATION DIRECTOR Unavailable [phone] Reason for Visit Reason Comments Care Encounter Details Date Type Department Care Team Description 02/22/2020 Office [facility] Temitope Fitzgerald High- risk , second trimester; Visit - [facility] ZIYAD Cooley Lactating mother; [facility] [address] At high risk for venous thro mboembolism (VTE); [address] BMI 39.0-39.9,adult; Drive [address] History of pulmonary embolism [facility] [address] [place], [place] [phone] [address] (Work) [phone] Social History Tobacco Use Types Packs/Day Years [...] Fitzgerald CNM - 02/22/2020 2:00 PM CDT [facility] Contact information: Appointment line and to get a hold of CNM in clinic Wednesday-Wednesday 8 am - 5 pm: . Thereare some clinics with early start times (1st appointment 7:40 am) and others with evening hours (last appointment 6:20 pm). Most are typically open from 8 am to 5 pm. CNM train operations manager answering service: . Specify your hospital of choice and leave a brief message for CNM; cut off machine operator will then page CNM who is train operations manager at your specified hospital and you [...] F. You are invited to [facility] A way to tour the hospital Labor and Delivery unit and meet the midwives in our group was postponed at the start of hospital restrictions following COVID-19. We will resume these when able and virtual options may be available in the future. Please call [phone] for ongoing updates. Touring the Maternity Care Center To schedule a tour at either [facility] or [facility], please do so online using the following links: [facility] - [email or web address]://www.[email or web address].Rontal Applications/[email or web address]?s=[email or web address]&m=303&vs=5&p=2& amp;bdyoc=284&ps=1&group=37&it=1&zsq=231 [facility] - https://www.WizMeta.Rontal Applications/registerlist.asp?s=6&m=303&vs=5&p=2&a mp;apypz=467&ps=1&group=38&it=1&njr=391 Pre-registration for Hospital Stay: Sometime betweeen 30-37 weeks, it is recommended that you pre-register for your upcoming hospital stay on our website: https://sslforms.[place].org/preregistration/he.asp and Control How do I decide what [...] of your skin. Pediatric Care Providers at [facility]: Choosing the right provider is one of [...] be called a family physician or doctor, saxophone assembler, general practitioner, nurse practitioner, or physician???s press operator assistant. Yourchild or teenager???s provider may be called a sign fabricator. Specialists: You???ll see a specialist for certain [...] providers in your area. Family Medicine at [facility]: https://www.[place].org/specialties/family-medicine Many of our families enjoy all seeing [...] health care services are needed Pediatrics at [facility]: https://www.[place].org/specialties/pediatric-care Through a teaching affiliation with the [facility], [facility] staff keeps current on new developments in [...] developmental and behavioral issues. Circumcision Educational video: https://www.FabAlley.Rontal Applications/#[email or web address] What is circumcision? At , baby boys have loose skin that covers the head of the penis. This skin is called the foreskin. When all or part of the foreskin of the penis is cut off, this is called circumcision. Why is circumcision done? Circumcision is done for many reasons including restorationist, cultural, looks, and health. Some restorationist groups circumcise all boys as a marlin-based [...] choose circumcision because they believe it is glove cleaner or will protect the boy or [...] clinics within a few weeks after . Amish circumcisions are most often done at home or in a voodoo. Before the circumcision is performed, some providers [...] heals. Can I keep my son???s penis glove cleaner if it is circumcised? Regular washing with soap and water will keep any penis clean. Circumcision does not make the penis glove cleaner. Uncircumcised boys do need to be taught to clean beneath their foreskin, just like they needto be taught to wash their hands or brush their teeth. How do I decide if I should have my son circumcised? The [place] Academy of Pediatrics (AAP) says that circumcision may have health benefits. They do not recommend circumcision for all boys as a routine procedure. The AAP recommends that you talk to your health care provider to decide if circumcision is the right choice for your family. You mayalso wish to discuss the question with your family or physician advisor. What are the risks and benefits [...] some sexually transmitted infections For More Information [place] [employer] of Family [employer]icians: Circumcision http://familydoctor.org/familydoctor/en/-newborns/fndvdk-rrt-vpbqzbkn/i nfant- care/circumcision.html MedlinePlus: Circumcision (includes a slide show on the procedure) www.nlm.nih.gov/medlineplus/circumcision.html [place] Academy of Pediatrics: Policy statement on circumcision Http://pediatrics.aappublications.org/content/130/3/e756.abstract Childbirth and Parenting Education: [facility]: http://anmed health medical centerExoprise/ (048) 108-DEDQ Blooma: (education, yoga & wellness) www.IPLSHOP Brasil Enlightened Mama: www.WellAware HoldingsightenedLiquidCompassma.Rontal Applications Childbirth collective: (Parent topic nights) www.childbirthcollective.org/ Hypnobabies: www.hypnobabiestData Impactties.Rontal Applications/ Hypnobirthing: Http://hypnobirthing.com/ The Hour: https://Talents Garden/nssrxt-rglikpmalj-bsxgb/ APPS and Podcasts: Norma Schmid Nurture The Hour (for stories) Birthful Expectful The Longest Shortest Time PregnancyPodcast Jessi Gomez Book Recommendations: Susan Warnerville's Birthing From Within--first few chapters include a [...] deciding to wean and deciding not to. [place] College of Nurse-Midwives (ACNM) http://www.statement clerks manager.org/; look at the informational handouts at http://www.statement clerks manager.org/Gobkd-Oavx-Bftkl www.mymidwife.org Mother to Baby (Medication and Herbal guidance in ): http://www.mothertobaby.org Toll-Free Hotline: 603.854.9185 LactMed (Medication use while ): http://toxnet.nlm.nih.gov/newtoxnet/lactmed.htm Women's Health.gov: http://www.womenshealth.gov/a-z-topics/index.html [place] association - http://americanpregnancy.org Centering (group care option): http://centeringhealthcare.org Information about doulas: Childbirth collective: http://www.childbirthcollective.org/ Doulas of [place] (CARRI): www.carri.org [facility] wrapper operator project: http://twincitiesdoulaproject.com/ Wic Site Coordinator and Family Education (ECFE): ECFE offers parents [...] page and click on events for link https://www.43 Things, The Robot Co-op.com/events/152471588048996/ ??? [facility] Milk Hour, at 2:30 pm Run by LIZ Mosley Go to [facility] FB page and send message to get link https://www.43 Things, The Robot Co-op.Rontal Applications/Theocorp Holding Company/ ??? [facility] holding virtual meetings the first Wednesday of each month, 8-9 pm, and the Third Wednesday, 10 - 11 am. Go to [facility] [place] FB page; message to get link https://www.43 Things, The Robot Co-op.Rontal Applications/LLJackiefGKasia/?hc_location=[facility] ??? [employer] offers a Lounge every Wednesday 12pm - 1pm, run by Yessenia Fernandes [facility] Leader Sign up via link at IPLSHOP Brasil/cbe- https://www.IPLSHOP Brasil/cbe- ??? [facility] is offering virtual support groups every Wednesday, 10:30 am - 12 pm, run bynurse HILL Https://www.43 Things, The Robot Co-op.com/events/977825842239215/ Classes: ??? [employer] is offering virtual and care classes: https://www.IPLSHOP Brasil/education-workshops ??? BirthEd childbirth and education offering virtual classes https://www.One, Inc.edmn.com/workshops documented in this encounter Plan of Treatment [...] Depression Total Score: 7 07/27/2018 7:15 AM TANDEM MILL OPERATOR documented as of this encounter Care Teams Larder Cook Relationship Specialty Start Date End Date Rashida Pederson APRN INTEGRATION DIRECTOR PCP - General Nurse Practitioner 10/08/14 [address] [place] [address] Rashida Pederson APRN INTEGRATION DIRECTOR Assigned PCP 10/14/14 07/26/21 [address] [place] [address] documented as of this encounter
--- OUTSIDE RECORDS SUMMARY | 2022-06-17 09:10 | XMS_ITS | Encounter Summary ---
:1985 Author Organization [facility] Address [address] [place] [address] Care Team Providers Name Role Phone Rashida Pederson APRN STRUCTURAL ENGINEERING TECHNICIAN Primary Care Provider [phone] Rashida Pederson APRN STRUCTURAL ENGINEERING TECHNICIAN Unavailable [phone] Encounter Details Date Type Department Care Team Description 04/19/2020 Hospital Encounter [facility] Junie Saavedra Post-term [facility] A, [facility] , 40-42 [facility] [address] [facility] weeks of gestation [address] [place], [place] [phone] Social History Tobacco Use Types Packs/Day Years [...] PM CDT EXAM: US BIOPHYSICAL PROFILE LOCATION: [facility] DATE/TIME: 04/19/2020 2:00 PM INDICATION: late [...] the original. EXAM: US BIOPHYSICAL PROFILE LOCATION: [facility] DATE/TIME: 04/19/2020 2:00 PM INDICATION: late [...] Depression Total Score: 7 07/27/2018 7:15 AM OUTER DIAMETER TECHNICIAN documented as of this encounter Care Teams Tool Adjuster Relationship Specialty Start Date End Date Rashida Pederson APRN STRUCTURAL ENGINEERING TECHNICIAN PCP - General Nurse Practitioner 10/08/14 [address] [place], [place] [phone] Rashida Pederson APRN STRUCTURAL ENGINEERING TECHNICIAN Assigned PCP 10/14/14 07/26/21 [address] [place], [place] [phone] documented as of this encounter
--- OUTSIDE RECORDS SUMMARY | 2022-06-17 09:10 | XMS_ITS | Encounter Summary ---
:1985 Author Organization [facility] Address [address] [place] [address] Care Team Providers Name Role Phone Rashida Pederson APRN EPIC CUPID SPECIALISTS Primary Care Provider [phone] Rashida Pederson APRN [employer] Unavailable [phone] Encounter Details Date Type Department Care Team Description 04/18/2020 Communication - [facility] Junie Saavedra, [facility] [address] [place] [address] Social History Tobacco Use Types [...] Depression Total Score: 7 07/27/2018 7:15 AM PACKING AND WRAPPING SUPERVISOR documented as of this encounter Care Teams Filler Shredder Machine Relationship Specialty Start Date End Date Rashida Pederson APRN [employer] PCP - General Nurse Practitioner 10/08/14 [address] [place], [place] [phone] Rashida Pederson APRN [employer] Assigned PCP 10/14/14 07/26/21 [address] [place], [place] [id number] documented as of this encounter
--- OUTSIDE RECORDS SUMMARY | 2022-06-17 09:10 | XMS_ITS | Encounter Summary ---
:1985 Author Organization [place] Address [address] [place] [address] Care Team Providers Name Role Phone Rashida Pederson APRN MARKETING PROJECT SPECIALIST Primary Care Provider [phone] Rashida Pederson APRN MARKETING PROJECT SPECIALIST Unavailable [phone] Reason for Visit Reason Comments Care Encounter Details Date Type Department Care Team Description 03/08/2020 [facility] High- risk , second trimester; [facility] Midwifery Ruchi Hardin, History of pulmonary embolism; [place] ZIYAD SCHREIBER At high risk for venous thromboembolism (VTE) [address] [place] [phone] Social History Tobacco Use Types Packs/Day Years [...] would you like to be contacted at? [phone]-- Patient would like to receive their AVS by AVS Preference: Julissa. Additional provider notes: see below Phone call duration: 14 minutes Phone call start time: 1: 09 PM Phone call end time: 1: 23 PM Louie Haas [facility] Logan presents virtually via telephone for a routine PNV at 34w 1d. Feeling well! Anticipatory guidance given for next visit: GBS and Hgb. Has good support for labor and : JASON is a development technologist and L&D RN, ARLENE is a L&D [...] APRN CNM - 03/08/2020 1:[address] [facility] Nurse Midwives - Contact information: Appointment line and to get a hold of CNM in clinic Wednesday-Wednesday 8 am - 5 pm: . Thereare some clinics with early start times (1st appointment 7:40 am) and others with evening hours (last appointment 6:20 pm). Most are typically open from 8 am to 5 pm. CNM sponsorship coordinator answering service: . Specify your hospital of choice and leave a brief message for CNM; tree feller operator will then page CNM who is sponsorship coordinator at your specified hospital and you should [...] F. You are invited to Meet the [facility] A way to tour the hospital Labor and Delivery unit and meet the midwives in our group was postponed at the start of hospital restrictions following COVID-19. We will resume these when able and virtual options may be available in the future. Please call [phone] for ongoing updates. Touring the Maternity Care Center At this time we are offering a virtual tour of the Maternity Care Centers at both [facility] and [facility]: [facility]: https://www.DNA Direct.org/Locations/[facility]/Qetptxpun-Celd-Irdpkv [place]: https://DNA Direct.Datactics/overarching-care/the-birthplace/tours https://www.DNA Direct.org/Locations/EtmgujCjpj-Yd-Cdjio-Hospital/Vefisjfoo-Amrk-Q enter/#virtual_tour When in person tours become available, registrations is required. To schedule a tour at either [place] or [facility], please do so online using the following links: [facility] - https://www.LocPlanet/registerlist.asp?s=6&m=303&vs=5&p=2& amp;epmcs=894&ps=1&group=37&it=1&dsz=211 [facility] - https://www.LocPlanet/registerlist.asp?s=6&m=303&vs=5&p=2&a mp;jprig=027&ps=1&group=38&it=1&qzq=526 [facility]: https://dps.[place].gov/divisions/ots/qnqlp-lwnskjbdx-gmmitu/Pages/pxn-ezgm-abizhc.as px [facility] Free Car Seat Distribution Facilities By Appt. Address Contact Information (For appointment) \Yes [facility] [facility]\[address]\[place],\cell Kay Velásquez)\ Yes [facility]\[address]\[place],\cell Angela Calderón)[phone]\ Yes [facility]\[address]\[place],\cell Patricia Roa)[phone]\[email or web address] Immunizations: http://www.cdc.gov/vaccines/schedules/neps-jl-zhdb/child.html Depression The first weeks of caring for [...] when you cough or sneeze or suddenly fruit picker machine operator something heavy. ?? Your breast milk will [...] same thing at the same time. Most [facility] have these classes. ?? Arrange for someone [...] parents group. Call [place] and go to [facility] meetings if you are . With your [...] .html After : The first 6 weeks: http://www.Sigma Labs/Fqqy-Pwdim-uga-Recovery resources: http://www.triptapdiesCosentiallves.org/health-info/bqzzuwb-xgzkeuiozhbvp-mzk-to-a-goo d-start/ HEALTHY CARE: 37 to 41 WEEKS Talk with your equal opportunity representative or physician about when to call with signs of labor ?? Regular uterine contractions that are getting closer together and/or stronger ?? If you think your water has broken or is leaking ?? Bleeding from the vagina like a period (bloody vaginal discharge is normal) ?? If you are not feeling your baby move Make plans for transportation and children's tutor nursery as needed for when you are going to the hospital. Your equal opportunity representative or physician may offer to check your [...] next steps leading to delivery with your equal opportunity representative or physician. If you don't start labor on your own by 41 or 42 weeks, your equal opportunity representative or physician may recommendgiving you medicines to ripen your cervix and start labor. Preparing for your baby: Tell your equal opportunity representative or physician how you plan to feed [...] smoothly for you and your baby. Your equal opportunity representative or physician will want to see you for a checkup 2 to 6 weeks after delivery. If you have questions about any symptoms you are experiencing or any other concerns, call your provider or their clinic staff at [facility] at . If it's after clinic hours, physician patients should call the Care Connection at [phone] ([phone]); equal opportunity representative patients should call their answering service at [phone]. How can you care for yourself at home? You can refer to the Starting Out Right book or find it online at http://www.healtheast.org/images/s alma delia/maternity/BzdvavUllm-Ghnuojry-Grq-Right.pdf or http://www.[facility].org/images/stories/seniabo karin/hhnteashlj-rfshzvad-xka-right/ugfgeiczov-fppaahco-mac-right.html#p=8 You can sign up for a weekly parenting e-mail that gives support, tips and advice from health resident care director that starts with and continues through the toddler years. To register, go to www.[facility].org/baby at any time during your . Making Plans for Feeding My Baby By this point, you probably have read a lot about feeding your baby. Breastfeed or formula? Each mother???s decision is her own and [facility] respects you and your choices. We???ve gathered information on both and formula feeding to help with your decision. Talking with your physician or nurse-equal opportunity representative can also help in your decision. However you plan to feed your baby, [facility] Maternity Care Centers encourage rooming in with your baby, ajhv-qm-okqm contact and feeding your baby based on his or her cues. Vjtj-jd-hkkt contact Being close to mom helps your baby adjust to life outside of the womb. It helps your baby regulate their body temperature, heart rate, and breathing. Your baby will usually be placed geqa-gr-igix immediately following or as soon as possible, [...] Breastfeed when you are with your baby. Lambert your bottles of breast milk for when [...] of time. Talk to your doctor or nurse-equal opportunity representative about what type of formula to use. Some are iron-fortified, meaning they have extra iron in them. You will want to purchase formula and bottles before your baby is born to be sure you are ready after you return from the hospital. The [facility] donot provide formula samples to take home. Be sure to follow formula mixing directions closely. Regular milk in the dairy case at the grocery store should not be given to babies under 1 year old. Baby formula is sold in several forms including: ??? Bufva-qp-ppn. This is the most expensive, but no mixing is necessary. ??? Concentrated liquid. This is less expensive than edpgh-ve-duq and you mix with water. ??? Powder. [...] You can also wash them in the director of child welfare services. Care Connection [phone] ([phone]) Share with Women\Andi I in Labor? What [...] are leaking greenish fluid. For More Information: http://onlinelibrary.molina.com/doi/10.1111/jmwh.34087/epdf US Department of Health and Human Services: Signs oflabor,labor stages, and types of http://womenshealth.gov//childbirth-beyond/labor-.html#a Childbirth and Parenting Education: [place] parenting center: http://[facility] joseph hospitalID.me/ (999) 504-CNHG Blooma: (education, yoga & wellness) www.Scoreloop.Proposify Enlightened Mama: www.enlightenedmama.Proposify Childbirth collective: (Parent topic nights) www.childbirthcollective.org/ Hypnobabies: www.hypnobabiestwinInvolution Studios.Proposify/ Hypnobirthing: Http://hypnobirthing.com/ The Hour: https://JobOn/ftgvae-jssaxacboi-okfvt/ APPS and Podcasts: Norma Schmid Nurture The [...] deciding to wean and deciding not to. [place] College [employer] Nurse-Midwives (ACNM) http://www.equal opportunity representative.org/; look at the informational handouts at http://www.equal opportunity representative.org/Gfych-Vofw-Gebbs www.mymidwife.org Mother to Baby (Medication and Herbal guidance in ): http://www.mothertobaby.org Toll-Free Hotline: 511.930.1970 LactMed (Medication use while ): http://toxnet.nlm.nih.gov/newtoxnet/lactmed.htm Women's Health.gov: http://www.womenshealth.gov/a-z-topics/index.html [place] association - http://americanpregnancy.org Centering (group care option): http://centeringhealthcare.org Information about doulas: Childbirth collective: http://www.childbirthcollective.org/ Doulas of [place] (CARRI): www.carri.org Nudipay Mobile Payment [facility] development technologist project: http://Hatsizecitiesdoulaproject.com/ Warehouse Worker and Family Education (ECFE): ECFE offers parents hands-on learning experiences that will nourish a lifetime of teachable moments. http://ecfe.info/ecfe-home/ October www.[employer]pex [employer] FDA - Nutrition www.mypyramid.gov Under For Consumers, [...] page and click on events for link https://www.Needish.com/events/493003359887159/ ??? [facility] Milk Hour, at 2:30 pm Run by LIZ Mosley Go to [facility] FB page and send message to get link https://www.Needish.Proposify/SermoundConnect HQ/ ??? [facility] holding virtual meetings the first Wednesday of each month, 8-9 pm, and the Third Wednesday, 10 - 11 am. Go to [facility] and [place] FB page; message to get link https://www.Needish.com/LLLofGKasia/?hc_location=[facility] ??? [facility] offers a Lounge every Wednesday 12pm - 1pm, run by Harleen Robles Leader Sign up via link at Lulu/cbe- https://www.Lulu/cbe- ??? [facility] is offering virtual support groups every Wednesday, 10:30 am - 12 pm, run bynurse HILL Https://www.Needish.com/events/273427483778446/ Classes: ??? [facility] [facility] is offering virtual and care classes: https://www.Lulu/education-workshops ??? BirthEd childbirth and education offering virtual classes https://www.Vycon/workshops documented in this encounter Plan of Treatment Not on filedocumented as of this encounter Visit Diagnoses Diagnosis High-risk , second trimester History of pulmonary embolism Personal history of pulmonary embolism At high risk for venous thromboembolism (VTE) documented in this encounter Additional Health Concerns Assessment Noted Time PHQ-9 Depression Total Score: 7 07/27/2018 7:15 AM BARGE MASTER documented as of this encounter Care Teams Liquor Bridge Operator Helper Relationship Specialty Start Date End Date Rashida Pederson APRN CNP PCP - General Nurse Practitioner 10/08/14 [address] [place] [address] Rashida Pederson APRN MARKETING PROJECT SPECIALIST Assigned PCP 10/14/14 07/26/21 [address] [place], [place] [id number] documented as of this encounter
--- OUTSIDE RECORDS SUMMARY | 2022-06-17 09:10 | XMS_ITS | Encounter Summary ---
:1985 Author Organization [place] Address [address] [place] [address] Care Team Providers Name Role Phone Rashida Pederson APRN WEB PRODUCTION ASSISTANT Primary Care Provider [phone] Rashida Pederson APRN WEB PRODUCTION ASSISTANT Unavailable [phone] Reason for Visit Reason Comments Care Encounter Details Date Type Department Care Team Description 04/17/2020 Office [facility] Anita Key h-risk , third trimester; Visit - [facility] BMI 39.0-39.9,adult; [facility] [address] [facility] History of pulmonary embolis m; [address] [facility] [address] At high risk for venous thromboembolism (VTE); Drive [address] Rh negative, antepartum; [place], [place] Post-term pr egnancy, 40-42 weeks of gestation Center [address] [place], [place] [phone] [address] (Work) [phone] Social History Tobacco Use Types Packs/Day Years [...] IV Pitocin is indicated in labor. This technical writer and editor spoke with Dr. Amaury Navarro, NAYELI anesthesia [...] , 0730. Paty Lewis APRN, CNM is process control supervisor and notified & COVID-19 testing ordered. BPP [...] Key APRN, CNM Service: -- Author Type: Automobile Body Repair Supervisor Filed: 04/18/2020 6:00 PM Encounter Date: 04/17/2020 Status: Signed Central Supply Assistant: Anita Key APRN, CNM (Automobile Body Repair Supervisor) Addended by: ANITA KEY on: 04/18/2020 06:00 [...] Depression Total Score: 7 07/27/2018 7:15 AM TEACHER AIDE CLERICAL documented as of this encounter Care Teams Biology Department Chair Relationship Specialty Start Date End Date Rashida Pederson APRN WEB PRODUCTION ASSISTANT PCP - General Nurse Practitioner 10/08/14 [address] [place] [address] Rashida Pederson APRN WEB PRODUCTION ASSISTANT Assigned PCP 10/14/14 07/26/21 [address] [place] [address] documented as of this encounter
--- OUTSIDE RECORDS SUMMARY | 2022-06-17 09:10 | XMS_ITS | Encounter Summary ---
:1985 Author Organization [place] Address [address] [place] [address] Care Team Providers Name Role Phone Rashida Pederson APRN SALES PERFORMANCE ANALYST Primary Care Provider [phone] Rashida Pederson APRN SALES PERFORMANCE ANALYST Unavailable [phone] Encounter Details Date Type Department Care Team Description 04/22/2020 [facility] Paty Lewis [facility] Diamond [address] [place], [place] [address]LEONELA CALLAWAY [address] [place] [address] [facility] [address] [facility] [place] [address] Social History Tobacco Use Types [...] Depression Total Score: 7 07/27/2018 7:15 AM 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
--- OUTSIDE RECORDS SUMMARY | 2022-06-17 09:10 | XMS_ITS | Encounter Summary ---
:1985 Author Organization [place] Address [address] [place] [address] Care Team Providers Name Role Phone Rashida Pederson APRN ORCHARD SPRAYER Primary Care Provider [phone] Rashida Pederson APRN ORCHARD SPRAYER Unavailable Reason for Visit Reason Comments Non Stress Test Encounter Details Date Type Department Care Team Description 04/19/2020 Hospital Encounter M [facility] [place] CNM [address] [address] [place], [place] [phone] (Wo rk) [address] [phone] Social History Tobacco Use Types Packs/Day Years [...] such as evening of primrose oil and health care recruiter to try and get into labor. - [...] an EDC of 04/18/20 who presented to [facility] for evaluation of NST. Denies [...] 04/19/20 1508 Results: Reactive NST Provider:[place] DNP,SECTIONIZER,ABDOUL TT with patient 0mn FHR strip reviewed [...] Total Score: 7 07/27/2018 7:15 AM DIRECTOR REHABILITATION PROGRAM documented as of this encounter Care Teams Form Press Operator Relationship Specialty Start Date End Date Rashida Pederson APRN ORCHARD SPRAYER PCP - General Nurse Practitioner 10/08/14 [address] [place], [place] [phone] Rashida Pederson APRN ORCHARD SPRAYER Assigned PCP 10/14/14 07/26/21 [address] [place], [place] [phone] documented as of this encounter
--- OUTSIDE RECORDS SUMMARY | 2022-06-17 09:11 | XMS_ITS | Encounter Summary ---
:1985 Author Organization [place] Address [address] [place] [address] Care Team Providers Name Role Phone Rashida Pederson APRN, CNP Primary Care Provider [phone] Rashida Pederson APRN PRINTER APPRENTICE Unavailable [phone] Rashida Pederson APRN, CNP Unavailable [phone] Reason for Visit Reason Comments Physical Encounter Details Date Type Department Care Team Description 07/26/2018 Office Visit [facility] Rashida Pederson Routine ge neral medical examination at a health care facility (Primary Dx); [facility] [place] ZIYAD Benitez Encounter for removal of int rauterine contraceptive device [address] [place] [address] [facility] [address] [place], [place] [phone] Social History Tobacco Use Types Packs/Day Years [...] Comments Blood Pressure 132/80 07/26/2018 1:25 PM PASSENGER SERVICE REPRESENTATIVE Pulse 96 07/26/2018 1:25 PM PASSENGER SERVICE REPRESENTATIVE Temperature 36.8 ??C (98.2 ??F) 07/26/2018 1:25 PM PASSENGER SERVICE REPRESENTATIVE Respiratory Rate 14 07/26/2018 1:25 PM PASSENGER SERVICE REPRESENTATIVE Oxygen Saturation 97% 07/26/2018 1:25 PM PASSENGER SERVICE REPRESENTATIVE Inhaled Oxygen Concentration - - Weight 109.8 kg (242 lb) 07/26/2018 1:25 PM PASSENGER SERVICE REPRESENTATIVE Height 167.6 cm (5' 6) 07/26/2018 1:25 PM PASSENGER SERVICE REPRESENTATIVE Body Mass Index 39.06 07/26/2018 1:25 PM PASSENGER SERVICE REPRESENTATIVE documented in this encounter Patient Instructions Patient [...] six months for an exam and cleaning. ENGER SERVICE REPRESENTATIVE documented in this encounter Progress Notes Rashida Pederson, ZIYAD PRINTER APPRENTICE - 07/26/2018 1:15 PM CST SUBJECTIVE: CC: [...] sooner as needed. Rashida Pederson APRN CNP [facility] ENGER SERVICE REPRESENTATIVE documented in this encounter Plan of Treatment Not on filedocumented as of this encounter Procedures Procedure Name Priority Date/Time Associated Diagnosis Comme nts HC REMOVE Routine 07/26/2018 1:48 PM Routine general INTRAUTERINE DEVICE PASSENGER SERVICE REPRESENTATIVE medical examination at a health care facility PAP IMAGED THIN LAYER Routine 07/26/2018 1:48 PM Routine gener al Results for this SCREEN PASSENGER SERVICE REPRESENTATIVE medical examination procedur e are in at a health care the results facility section. HPV HIGH RISK TYPES Routine 07/26/2018 1:45 PM Routine general Results for this DNA CERVICAL PASSENGER SERVICE REPRESENTATIVE medical examination procedur e are in at a health care the results facility section. documented in this encounter Results Pap imaged thin layer screen with HPV - recommended age 30 - 65 years (select HPV order below) (07/26/2018 1:48 PM PASSENGER SERVICE REPRESENTATIVE) Component Value Ref Test Analysis Performed At [facility] Range Method Time Signature PAP NIL FROYATH Thiago Report COPATH Patient Name: LOGAN SANDOVAL MR#: [id number] Specimen #: [id number] Collected: 07/26/2018 Received: 07/27/2018 Reported: 07/28/2018 14:46 [...] MARV Light (ASCP) Processed and screened at [facility] CLINICAL HISTORY: Currently not having periods, Intra-Uterine Device, A previo us normal pap Date of Last Pap: 03/27/2016, Papanicolaou Test Limitations: ??Cervical cytology is a sc reening test with limited sensitivity; regular screening is critical for cancer prevention; Pap tests are p rimarily effective for the diagnosis/prevention of squamous cell carcinoma, not adenocarcinomas or other cancer s. TESTING LAB LOCATION: [address] ??[address] COLLECTION SITE: Client: ??[facility] Location: [facility] (R) Specimen (Source) Anatomical Collection Method Collection Time Re ceived Time Location / / Volume Laterality Cytologic 07/26/2018 1:48 07/27/2018 material PM PASSENGER SERVICE REPRESENTATIVE 10:09 AM PASSENGER SERVICE REPRESENTATIVE (specimen) Rashida Pederson PSYCHOLOGY PROFESSOR PRINTER APPRENTICE LAB - OPTIME CLINICAL SPE CIMEN Performing Organization Address City/State/ZIP Code Phon e Number COPATH HPV High Risk Types DNA Cervical (07/26/2018 1:45 PM PASSENGER SERVICE REPRESENTATIVE) [facility] Method Time Signature HPV Source [facility] 07/26/2018 [place] 1:48 PM PASSENGER SERVICE REPRESENTATIVE [facility] HPV 16 DNA Negative NEG^Negat 07/29/2018 [facility] 3:48 PM [facility] HPV 18 DNA Negative NEG^Negat 07/29/2018 [facility] 3:48 PM [facility] Other HR HPV Negative NEG^Negat 07/29/2018 [facility] 3:48 PM [facility] Final This 07/29/2018 [facility] patient's 3:48 PM [facility] sample is [facility] negative for CAMPUS HPV DNA. Comment: This test was developed and its performa nce characteristics determined by the [facility], Molecular Diagnostics Laboratory. It has not been [...] Description Cervical Cells 07/26/2018 1:4 8 PM PASSENGER SERVICE REPRESENTATIVE [facility] Comment: [id number] Specimen Anatomical Collection Method Collection Time Receive d Time (Source) Location / / Volume Laterality Cervical Cells CERVIX UTERI 07/26/2018 1:45 PM 018 2:05 STRUCTURE / PASSENGER SERVICE REPRESENTATIVE PM PASSENGER SERVICE REPRESENTATIVE Unknown Rashida Pederson APRN PRINTER APPRENTICE LAB - BLOOD ORDERABLES Performing Organization Address City/State/ZIP Code Phon e Number [facility] [address] [place] [address] [facility] [address] [place] [address] documented in this encounter Visit Diagnoses Diagnosis Routine general medical examination at a health care facility - Primary Encounter for removal of intrauterine co ntraceptive device documented in this encounter Additional Health Concerns Assessment Noted Time PHQ-9 Depression Total Score: 7 07/27/2018 7:15 AM PASSENGER SERVICE REPRESENTATIVE documented as of this encounter Care Teams Geothermal Field Technician Relationship Specialty Start Date End Date Rashida Pederson APRN PCP - General Nurse Practitioner 10/08/14 PRINTER APPRENTICE [address] [place] [address] Rashida Pederson APRN PCP - Assigned PCP 10/14/14 10/18/18 PRINTER APPRENTICE [address] [place] [address] Rashida Pederson APRN Assigned PCP 10/14/14 1 09/26/20 PRINTER APPRENTICE [address] [place] [address] documented as of this encounter
--- OUTSIDE RECORDS SUMMARY | 2022-06-17 09:11 | XMS_ITS | Encounter Summary ---
:1985 Author Organization [place] Address [address] [place] [address] Care Team Providers Name Role Phone Rashida Pederson APRN, CNP Primary Care Provider [phone] Rashida Pederson APRN DUPLIGRAPH OPERATOR Unavailable [phone] Rashida Pederson APRN DUPLIGRAPH OPERATOR Unavailable [phone] Reason for Visit Reason Onset Date Comments No Show 09/06/2017 Encounter Details Date Type Department Care Team Description 09/06/2017 Office Visit [facility] Rashida Pederson NO SHOW (P rimary Dx) Clinic [place] ZIYAD Benitez CNP [address] [place] [address] [phone] Social History Tobacco Use Types Packs/Day Years [...] a no show for this scheduled appointment. [employer] documented in this encounter Plan of Treatment Not on filedocumented as of this encounter Visit Diagnoses Diagnosis NO SHOW - Primary documented in this encounter Additional Health Concerns Assessment Noted Time PHQ-9 Depression Total Score: 9 04/21/2017 2:17 PM CDT documented as of this encounter Care Teams Mechanical Apprentice Relationship Specialty Start Date End Date Rashida Pederson APRN PCP - General Nurse Practitioner 10/08/14 DUPLIGRAPH OPERATOR [address] [place] [address] Rashida Pederson APRN PCP - Assigned PCP 10/14/14 10/18/18 DUPLIGRAPH OPERATOR [address] [place] [address] Rashida Pedesron APRN Assigned PCP 10/14/14 1 09/26/20 DUPLIGRAPH OPERATOR [address] [place] [address] documented as of this encounter
--- OUTSIDE RECORDS SUMMARY | 2022-06-17 09:11 | XMS_ITS | Encounter Summary ---
:1985 Author Organization [place] Address [address] [place] [address] Care Team Providers Name Role Phone Rashida Pederson APRN MOTOR AND GENERATOR ASSEMBLER Primary Care Provider [phone] Rashida Pederson APRN MOTOR AND GENERATOR ASSEMBLER Unavailable [phone] BgRashida cornejo APRN MOTOR AND GENERATOR ASSEMBLER Unavailable [phone] Reason for Visit Reason Comments Back Pain Encounter Details Date Type Department Care Team Description 10/14/2017 Office Visit [facility] Donavon Szymanski Acute le ft-sided low [facility] PA-C back pain without [address] [address] [facility] sciatica (Primary Dx) [place] [address] [phone] Social History Tobacco Use Types Packs/Day Years [...] Comments Blood Pressure 113/74 10/14/2017 11:46 AM SENIOR INTERIOR DESIGNER Pulse 118 10/14/2017 11:46 AM SENIOR INTERIOR DESIGNER Temperature 37.1 ??C (98.8 ??F) 10/14/2017 11:46 AM SENIOR INTERIOR DESIGNER Respiratory Rate 16 10/14/2017 11:46 AM SENIOR INTERIOR DESIGNER Oxygen Saturation - - Inhaled Oxygen Concentration - - Weight 110.2 kg (243 lb) 10/14/2017 11:46 AM SENIOR INTERIOR DESIGNER Height - - Body Mass Index 39.22 09/10/2017 1:10 PM SENIOR INTERIOR DESIGNER documented in this encounter Patient Instructions Patient InstructionsDonavon Szymanski PA-C - 10/14/2017 12:09 PM SENIOR INTERIOR DESIGNER Images from the original note were not [...] groin area Date Last Reviewed: 01/15/2016 ?? [id number] [employer]. [address] [place] [address]. All rights reserved. This information is not [...] slowly lower. Date Last Reviewed: 01/15/2016 ?? [id number] [employer]. [address] [place] [address], [place] [address]. All rights reserved. This information is not intended as a substitute for professional medical care. Always follow your healthcare professional's instructions. OR INTERIOR DESIGNER documented in this encounter Progress Notes Donavon [...] agreement with plan. Follow up: as above Donavon Szymanski PA-C [facility] OR INTERIOR DESIGNER documented in this encounter Plan of Treatment Not on filedocumented as of this encounter Visit Diagnoses Diagnosis Acute left-sided low back pain without s ciatica - Primary documented in this encounter Additional Health Concerns Assessment Noted Time PHQ-9 Depression Total Score: 11 09/11/2017 7:41 AM CS T documented as of this encounter Care Teams Corn Chip Maker Relationship Specialty Start Date End Date Rashida Pederson APRN PCP - General Nurse Practitioner 10/08/14 MOTOR AND GENERATOR ASSEMBLER [address] [place] [address] Rashida Pederson APRN PCP - Assigned PCP 10/14/14 10/18/18 MOTOR AND GENERATOR ASSEMBLER [address] [place] [address] Rashida Pederson APRN Assigned PCP 10/14/14 1 09/26/20 MOTOR AND GENERATOR ASSEMBLER [address] [place] [address] documented as of this encounter
--- OUTSIDE RECORDS SUMMARY | 2022-06-17 09:11 | XMS_ITS | Encounter Summary ---
:1985 Author Organization [place] Address [address] [place] [address] Care Team Providers Name Role Phone Rashida Pederson APRN, CNP Primary Care Provider [phone] Rashida Pederson APRN MACHINE BANDER AND CELLOPHANER HELPER Unavailable [phone] Rashida Pederson APRN, CNP Unavailable [phone] Reason for Visit Reason Comments Recheck Medication Encounter Details Date Type Department Care Team Description 09/10/2017 Office Visit [facility] Rashida Pederson episo de of recurrent major depressive disorder (H) (Primary Dx); Clinic [place] ZIYAD Benitez CNP Anxiety; [address] [place] [address] [place] [address] [phone] Social History Tobacco Use Types Packs/Day Years [...] Comments Blood Pressure 120/82 09/10/2017 1:10 PM SYSTEMS NAVIGATOR Pulse 106 09/10/2017 1:10 PM SYSTEMS NAVIGATOR Temperature 36.9 ??C (98.4 ??F) 09/10/2017 1:10 PM SYSTEMS NAVIGATOR Respiratory Rate 14 09/10/2017 1:10 PM SYSTEMS NAVIGATOR Oxygen Saturation 96% 09/10/2017 1:10 PM SYSTEMS NAVIGATOR Inhaled Oxygen Concentration - - Weight 103 kg (227 lb) 09/10/2017 1:10 PM SYSTEMS NAVIGATOR Height 167.6 cm (5' 6) 09/10/2017 1:10 PM SYSTEMS NAVIGATOR Body Mass Index 36.64 09/10/2017 1:10 PM SYSTEMS NAVIGATOR documented in this encounter Progress Notes Rashida [...] her behalf by Ramiro Curry, a trained medical receptionist biller. The creation of this document is based the provider's statements to the medical receptionist biller. Ramiro Curry September 10, 2017 1:20 PM [...] in this document, created by the medical receptionist biller for me, accurately reflects the services I personally performed and the decisions made by me. I have reviewed and approved this document for accuracy. DONNY Moore APRN [facility] EMS NAVIGATOR documented in this encounter Plan of Treatment [...] documented as of this encounter Care Teams Spice Fumigator Relationship Specialty Start Date End Date Rashida Pederson APRN PCP - General Nurse Practitioner 10/08/14 DONNY [address] [place] [address] Rashida Pederson APRN PCP - Assigned PCP 10/14/14 10/18/18 MACHINE BANDER AND CELLOPHANER HELPER [address] [place] [address] Rashida Pederson APRN Assigned PCP 10/14/14 1 09/26/20 MACHINE BANDER AND CELLOPHANER HELPER [address] [place] [address] documented as of this encounter
--- OUTSIDE RECORDS SUMMARY | 2022-06-17 09:11 | XMS_ITS | Encounter Summary ---
:1985 Author Organization [place] Address [address] [place] [address] Care Team Providers Name Role Phone Rashida Pederson APRN GATE WATCHMAN Primary Care Provider [phone] Rashida Pederson APRN GATE WATCHMAN Unavailable [phone] Encounter Details Date Type Department Care Team Description [facility] Coretta Lemuel [address] [address] [facility] [phone] [place], [place] (Work) [address] Social History Tobacco Use [...] Depression Total Score: 7 07/27/2018 7:15 AM HOTEL GUEST SERVICE AGENT documented as of this encounter Care Teams Morphologist Relationship Specialty Start Date End Date Rashida Pederson APRN GATE WATCHMAN PCP - General Nurse Practitioner 10/08/14 [address] [place], [place] [id number] Rashida Pederson APRN GATE WATCHMAN Assigned PCP 10/14/14 07/26/21 [address] [place], [place] [id number] documented as of this encounter
--- OUTSIDE RECORDS SUMMARY | 2022-06-17 09:11 | XMS_ITS | Encounter Summary ---
:1985 Author Organization [place] Address [address] [place] [address] Care Team Providers Name Role Phone Rashida Pederson APRN INSPECTOR QUALITY ASSURANCE Primary Care Provider [phone] Rashida Pederson APRN INSPECTOR QUALITY ASSURANCE Unavailable [phone] Encounter Details Date Type Department Care Team Description 02/03/2020 [facility] Vaibhav Zaman APRN CNM [facility] [address] [facility] [address] [place] [address] Social History Tobacco Use Types [...] Depression Total Score: 7 07/27/2018 7:15 AM ENDODONTIC ASSISTANT documented as of this encounter Care Teams Machine Coil Assembler Relationship Specialty Start Date End Date Rashida Pederson APRN INSPECTOR QUALITY ASSURANCE PCP - General Nurse Practitioner 10/08/14 [address] [place], [place] [id number] Rashida Pederson APRN INSPECTOR QUALITY ASSURANCE Assigned PCP 10/14/14 07/26/21 [address] [place], [place] [id number] documented as of this encounter
--- OUTSIDE RECORDS SUMMARY | 2022-06-17 09:11 | XMS_ITS | Encounter Summary ---
:1985 Author Organization [place] Address [address] [place] [address] Care Team Providers Name Role Phone Rashida Pederson APRN, CNP Primary Care Provider [phone] Rashida Pederson APRN, CNP Unavailable [phone] Encounter Details Date Type Department Care Team Description 12/14/2019 [facility] Provider, [facility]ifery Historical Patient Access [address] [place] [address] Social History Tobacco Use Types Packs/Day Years [...] Depression Total Score: 7 07/27/2018 7:15 AM MACHINE DEBURRER documented as of this encounter Care Teams Machine Shop Specialist Relationship Specialty Start Date End Date Rashida Pederson APRN CNP PCP - General Nurse Practitioner 10/08/14 [address] [place], [place] [phone] Rashida Pederson, ZIYAD PATIENT RELATIONS SPECIALIST Assigned PCP 10/14/14 07/26/21 [address] [place] [address] documented as of this encounter
--- OUTSIDE RECORDS SUMMARY | 2022-06-17 09:11 | XMS_ITS | Encounter Summary ---
:1985 Author Organization [place] Address [address] [place] [address] Care Team Providers Name Role Phone Rashida Pederson APRN, CNP Primary Care Provider [phone] Rashida Pederson APRN WEBSPHERE PORTAL DEVELOPER Unavailable [phone] Rashida Pederson APRN, CNP Unavailable [phone] Reason for Visit Reason Onset Date Comments Medication Refill 08/05/2017 escitalopram (LEXAPR O) 20 MG tablet Encounter Details Date Type Department Care Team Description 08/04/2017 Refill [facility] Rashida Pederson ication Refill [place] ZIYAD Benitez CNP (escitalopram (LEXAPRO) [address] [place] [address] 20 MG tablet) [place] [address] [phone] (Wo rk) Social History Tobacco Use Types [...] she will call back to schedule apt. STRIAL ECONOMICS TEACHER Telephone Encounter - Tiffanie Young DO - 08/06/2017 10:57 AM CST Approved 30 day supply. Needs visit for further refills STRIAL ECONOMICS TEACHER Telephone Encounter - Concha Porras RN - 08/06/2017 8:58 AM CST Routing refill request to provider for review/approval because: Labs out of range: PHQ is elevated per OV note pt is to f/u in 6 months OK for refill? Concha Porras RN STRIAL ECONOMICS TEACHER Telephone Encounter - Angy Barone - 08/05/2017 11:52 AM CST Requested Prescriptions Pending Prescriptions Disp Refills ??? escitalopram (LEXAPRO) 20 MG tablet [Pharmacy Med Name: ESCITALOPRAM 20 MG TABLET] 30 tablet 3 Last Written Prescription Date: 04/21/17 Last Fill Quantity: 30, # refills: 3 Last Office Visit with [facility] or [facility] prescribing provider: 04/21/2017 Future Office Visit: Sig: [...] days with authorizing provider. See chart review. STRIAL ECONOMICS TEACHER documented in this encounter Plan of Treatment Not on filedocumented as of this encounter Visit Diagnoses Diagnosis Mild episode of recurrent major depressi ve disorder (H) Anxiety Anxiety state, unspecified documented in this encounter Additional Health Concerns Assessment Noted Time PHQ-9 Depression Total Score: 9 04/21/2017 2:17 PM CDT documented as of this encounter Care Teams Human Resources Technician Relationship Specialty Start Date End Date Rashida Pederson APRN PCP - General Nurse Practitioner 10/08/14 WEBSPHERE PORTAL DEVELOPER [address] [place] [address] Rashida Pederson APRN PCP - Assigned PCP 10/14/14 10/18/18 WEBSPHERE PORTAL DEVELOPER [address] [place] [address] Rashida Pederson APRN Assigned PCP 10/14/14 1 09/26/20 WEBSPHERE PORTAL DEVELOPER [address] [place] [address] documented as of this encounter
--- OUTSIDE RECORDS SUMMARY | 2022-06-17 09:11 | XMS_ITS | Encounter Summary ---
:1985 Author Organization [place] Address [address] [place] [address] Care Team Providers Name Role Phone Rashida Pederson APRN, CNP Primary Care Provider [phone] Rashida Pederson APRN EXHIBIT BUILDER Unavailable [phone] Rashida Pederson APRN EXHIBIT BUILDER Unavailable [phone] Reason for Visit Reason Comments Flu Shot Recheck Medication Referral Encounter Details Date Type Department Care Team Description 04/21/2017 Office Visit [facility] Rashida Pederson Anxiety (P rimary Dx); Clinic [place] ZIYAD Benitez Mild episode of recurrent ma codi depressive disorder (H); [address] [facility] Panic attack; [place] [address] [facility] Screening examination for pulmonary tube rculosis; [address] [place], [place] Need for prophylactic vaccin ation and inoculation against influenza [phone] [address] Social History Tobacco Use Types Packs/Day [...] CNP - 04/22/2017 10:26 AM CDT Hi Logan, Your TSH (thyroid level) was normal at [...] the person to be vaccinated ever had Guillain-Chetopa syndrome? No Form completed by Katharine Rashida [...] coming down all at once when classes fish bait picker to pace. She reports increased anxiety, especially with her boyfriend's new job as a helicopter utility aircrewman, and distracting thoughts when trying to complete [...] behalf by Gerda Pratt, a trained medical records custodian. The creation of this document is based on the provider's statements to the medical records custodian. Gerda Pratt 1:26 PM April 21, 2017 [...] SPLIT VIRUS IM > 3 YO (QUADRIVALENT) [91704] - Vaccine Administration, Initial [18879] Other orders - DEPRESSION ACTION PLAN (DAP) The information in this document, created by the medical records custodian for me, accurately reflects the services I personally performed and the decisions made by me. I have reviewed and approved this document for accuracy prior to leaving the patient care area. April 21, 2017 1:33 PM Follow up in 6 months, sooner as needed. Rashida Pederson APRN CNP [facility] documented in this encounter Nursing Notes Yessenia [...] Signature TSH 3.30 0.40 - 4.00 04/22/2017 [facility] mU/L 10:22 AM CDT [facility] Specimen Anatomical Collection Method Collection Time Receive d Time (Source) Location / / Volume Laterality Blood specimen 04/21/2017 1:31 PM 017 1:33 (specimen) CDT PM CDT Rashida Pederson APRN EXHIBIT BUILDER LAB - BLOOD ORDERABLES Performing Organization Address City/State/ZIP Code Phon e Number [facility] [address] [place] [address] M Tuberculosis by Quantiferon (04/21/2017 1:31 PM CDT) Patholo gist Method Time Signature M Tuberculosis Negative NEG^Negat 04/23/2017 [facility] leila 4:01 PM CDT [facility] M Tuberculosis 0.00 IU/mL 04/23/2017 [facility] Value 4:01 PM CDT [facility] Comment: This is a qualitative test. ??The [...] Organization Address City/State/ZIP Code Phon e Number [address] documented in this encounter Visit Diagnoses [...] documented as of this encounter Care Teams Waistline Joiner Overlock Relationship Specialty Start Date End Date Rashida Pederson APRN PCP - General Nurse Practitioner 10/08/14 EXHIBIT BUILDER [address] [place] [address] Rashida Pederson APRN PCP - Assigned PCP 10/14/14 10/18/18 EXHIBIT BUILDER [address] [place] [address] Rashida Pederson APRN Assigned PCP 10/14/14 1 09/26/20 EXHIBIT BUILDER [address] [place] [address] documented as of this encounter
--- OUTSIDE RECORDS SUMMARY | 2022-06-17 09:11 | XMS_ITS | Encounter Summary ---
:1985 Author Organization [place] Address [address] [place] [address] Care Team Providers Name Role Phone Rashida Pederson APRN NUCLEAR ENGINEERING TECHNICIAN Primary Care Provider [phone] Rashida Pedreson APRN NUCLEAR ENGINEERING TECHNICIAN Unavailable [phone] Encounter Details Date Type Department Care Team Description 01/30/2020 Communication - [facility] Mihaela Burns, Rain [address] [place] [address] [place] [address] Drive [address] [place] [address] Social History Tobacco Use Types [...] Depression Total Score: 7 07/27/2018 7:15 AM SKIAGRAPHER documented as of this encounter Care Teams Research Agricultural Engineer Relationship Specialty Start Date End Date Rashida Pederson APRN NUCLEAR ENGINEERING TECHNICIAN PCP - General Nurse Practitioner 10/08/14 [address] [place], [place] [phone] Rashida Pederson APRN NUCLEAR ENGINEERING TECHNICIAN Assigned PCP 10/14/14 07/26/21 [address] [place], [place] [phone] documented as of this encounter
--- OUTSIDE RECORDS SUMMARY | 2022-06-17 09:11 | XMS_ITS | Encounter Summary ---
:1985 [facility] Address [address] [place] [address] Home Phone Mobile Phone Email Address Email Address Preferred Language Haitian Marital Status Single Latter Day Affiliation Unknown Race White Ethnic Group Unknown Author Organization [place] Address [address] [place] [address] Care Team Providers Name Role Phone Rashida Pederson APRN RESIDENTIAL ENERGY AUDITOR Primary Care Provider [phone] BgRashida cornejo APRN RESIDENTIAL ENERGY AUDITOR Unavailable [phone] BgRashida cornejo APRN RESIDENTIAL ENERGY AUDITOR Unavailable [phone] Reason for Visit Reason Onset Date Comments Refill Request 08/30/2017 lexapro Encounter Details Date Type Department Care Team Description 08/30/2017 MyC Refill M [facility] Tiffanie Irvin, Ref ill Request [facility] (lexapro) [address] [place] [address] [facility] [place] [phone] [place] [address] (Wo rk) Social History Tobacco [...] pt has appointment 09/06 Prescription approved per [facility] Refill Protocol. Paula Poe RN, BSN T MANAGEMENT ANALYST Telephone Encounter - Paula Poe RN - 08/31/2017 9:59 AM ASSET MANAGEMENT ANALYST Message from [employer]: Original authorizing provider: DO Logan Santos Dimitry Arredondo would like a refill of the following medications: escitalopram (LEXAPRO) 20 MG tablet [Tiffanie Young DO] Preferred pharmacy: [facility] [address] [facility] [address] [place] Comment: I have an appointment scheduled for September 06 but not enough of the Lexapro to get me to that date. Wondering if a refill can be made. Otherwise I can just take half tabs until then. T MANAGEMENT ANALYST documented in this encounter Plan of Treatment Not on filedocumented as of this encounter Visit Diagnoses Diagnosis Mild episode of recurrent major depressi ve disorder (H) Anxiety Anxiety state, unspecified documented in this encounter Additional Health Concerns Assessment Noted Time PHQ-9 Depression Total Score: 9 04/21/2017 2:17 PM CDT documented as of this encounter Care Teams Machine Feeder Raw Stock Relationship Specialty Start Date End Date Rashida Pederson APRN PCP - General Nurse Practitioner 10/08/14 RESIDENTIAL ENERGY AUDITOR [address] [place] [address] Rashida Pederson APRN PCP - Assigned PCP 10/14/14 10/18/18 RESIDENTIAL ENERGY AUDITOR [address] [place] [address] Rashida Pederson APRN Assigned PCP 10/14/14 1 09/26/20 RESIDENTIAL ENERGY AUDITOR [address] [place] [address] documented as of this encounter
--- OUTSIDE RECORDS SUMMARY | 2022-06-17 09:11 | XMS_ITS | Encounter Summary ---
:1985 Author Organization [place] Address [address] [place] [address] Care Team Providers Name Role Phone Rashida Pederson APRN BIT WELDER Primary Care Provider [phone] Rashida Pederson APRN BIT WELDER Unavailable [phone] Encounter Details Date Type Department Care Team [...] 4:16 PM Result s for this HISTORICAL MARINE ELECTRICIAN procedure are i n the results section. CBC WITH PLATELETS Routine 10/09/2019 2:49 PM Res ults for this AND DIFFERENTIAL MARINE ELECTRICIAN procedure a re in the results section. RUBELLA ANTIBODY IGG Routine 10/09/2019 2:49 PM R esults for this MARINE ELECTRICIAN procedure are i n the results section. HIV ANTIGEN ANTIBODY Routine 10/09/2019 2:49 PM R esults for this COMBO MARINE ELECTRICIAN procedure are i n the results section. TREPONEMA ABS W Routine 10/09/2019 2:49 PM Result s for this REFLEX TO RPR AND MARINE ELECTRICIAN procedure are in TITER the results section. HEPATITIS B SURFACE Routine 10/09/2019 2:49 PM Re sults for this ANTIGEN MARINE ELECTRICIAN procedure are i n the results section. HEMOGLOBIN A1C Routine 10/09/2019 2:49 PM Results for this MARINE ELECTRICIAN procedure are i n the results section. ANTIBODY SCREEN - RED Routine 10/09/2019 2:49 PM Results for this CELL MARINE ELECTRICIAN procedure are i n the results section. ABO AND RH Routine 10/09/2019 2:49 PM Results f or this MARINE ELECTRICIAN procedure are i n the results section. documented in this encounter Results Urine Culture - Historical (10/09/2019 4:16 PM MARINE ELECTRICIAN) athologist Signature Culture No Growth 10/10/2019 [facility] 1:26 PM MARINE ELECTRICIAN [facility] Specimen Anatomical Collection Method Collection Time Receive d Time (Source) Location / / Volume Laterality Urine specimen Non-blood 10/09/2019 4:16 PM 020 6:47 (specimen) Collection / MARINE ELECTRICIAN PM MARINE ELECTRICIAN Unknown Karis BAKER LAB - MICRO GENERAL ORDERABL ES Performing Organization Address City/[facility]/[place] [address] [address] [facility] Hemoglobin A1c (10/09/2019 2:49 PM MARINE ELECTRICIAN) athologist Signature Hemoglobin A1C 5.4 4.2 - 6.1 10/10/2019 [facility] % 7:54 AM MARINE ELECTRICIAN [facility] Specimen Anatomical Collection Method / Collection Time Recei merry Time (Source) Location / Volume Laterality Blood specimen Venipuncture / 10/09/2019 2:49 10/09/19 20 4:41 (specimen) Unknown PM MARINE ELECTRICIAN PM MARINE ELECTRICIAN Karis Hale CNM LAB - BLOOD ORDERABLES Performing Organization Address City/State/ZIP Code Phon e Number [place] [address] [facility] [address] [facility] Treponema Abs w Reflex to RPR and Titer (10/09/2019 2:49 PM MARINE ELECTRICIAN) athologist Signature Treponema Negative Negative 10/10/2019 Antibody Total 10:00 AM MARINE ELECTRICIAN Specimen Anatomical Collection Method / Collection Time Recei merry Time (Source) Location / Volume Laterality Blood specimen Venipuncture / 10/09/2019 2:49 10/09/19 20 4:44 (specimen) Unknown PM MARINE ELECTRICIAN PM MARINE ELECTRICIAN Karis Hale CNM LAB - BLOOD ORDERABLES Hepatitis B surface antigen (10/09/2019 2:49 PM MARINE ELECTRICIAN) athologist Signature Hepatitis B Negative Negative 10/10/2019 Surface 8:33 AM MARINE ELECTRICIAN Antigen Specimen Anatomical Collection Method / Collection Time Recei merry Time (Source) Location / Volume Laterality Blood specimen STRUCTURE OF LEFT Venipuncture / 10/09/2019 2:49 4:44 (specimen) UPPER LIMB / Unknown PM MARINE ELECTRICIAN PM MARINE ELECTRICIAN Unknown Karis Hale CNM LAB - BLOOD ORDERABLES HIV Antigen Antibody Combo (10/09/2019 2:49 PM MARINE ELECTRICIAN) athologist Signature HIV Antigen Negative Negative 10/09/2019 Antibody Combo 5:37 PM MARINE ELECTRICIAN Specimen Anatomical Collection Method / Collection Time Recei merry Time (Source) Location / Volume Laterality Blood specimen Venipuncture / 10/09/2019 2:49 10/09/19 20 4:44 (specimen) Unknown PM MARINE ELECTRICIAN PM MARINE ELECTRICIAN Narrative 10/09/2019 5:37 PM MARINE ELECTRICIAN Method is Lynch HIV Ag/Ab for the detec tion of HIV p24 antigen, HIV-1 antibodies and HIV-2 antibodies. Karis Hale CNM LAB - BLOOD ORDERABLES (ABNORMAL) CBC WITH PLATELETS AND DIFFERENTIAL (10/09/2019 2:49 PM MARINE ELECTRICIAN) athologist Signature WBC 8.6 4.0 - 11.0 10/09/2019 thou/uL 2:56 PM MARINE ELECTRICIAN RBC Count 4.21 3.80 - 10/09/2019 5.40 2:56 PM MARINE ELECTRICIAN mill/uL Hemoglobin 12.8 12.0 - 10/09/2019 16.0 g/dL 2:56 PM MARINE ELECTRICIAN Hematocrit 37.5 35.0 - 10/09/2019 47.0 % 2:56 PM MARINE ELECTRICIAN MCV 89 80 - 100 10/09/2019 fL 2:56 PM MARINE ELECTRICIAN MCH 30.4 27.0 - 10/09/2019 34.0 pg 2:56 PM MARINE ELECTRICIAN MCHC 34.1 32.0 - 10/09/2019 36.0 g/dL 2:56 PM MARINE ELECTRICIAN RDW 12.0 11.0 - 10/09/2019 14.5 % 2:56 PM MARINE ELECTRICIAN Platelet Count 245 140 - 440 10/09/2019 thou/uL 2:56 PM MARINE ELECTRICIAN Mean Platelet 9.6 8.5 - 12.5 10/09/2019 Volume fL 2:56 PM MARINE ELECTRICIAN % Neutrophils 71 (H) 50 - 70 % 10/09/2019 2:56 PM MARINE ELECTRICIAN % Lymphocytes 22 20 - 40 % 10/09/2019 2:56 PM MARINE ELECTRICIAN % Monocytes 6 2 - 10 % 10/09/2019 2:56 PM MARINE ELECTRICIAN % Eosinophils 1 0 - 6 % 10/09/2019 2:56 PM MARINE ELECTRICIAN % Basophils 1 0 - 2 % 10/09/2019 2:56 PM MARINE ELECTRICIAN Absolute 6.1 2.0 - 7.7 10/09/2019 Neutrophils thou/uL 2:56 PM MARINE ELECTRICIAN Absolute 1.9 0.8 - 4.4 10/09/2019 Lymphocytes thou/uL 2:56 PM MARINE ELECTRICIAN Absolute 0.5 0.0 - 0.9 10/09/2019 Monocytes thou/uL 2:56 PM MARINE ELECTRICIAN Eosinophils 0.1 0.0 - 0.4 10/09/2019 Absolute thou/uL 2:56 PM MARINE ELECTRICIAN Absolute 0.0 0.0 - 0.2 10/09/2019 Basophils thou/uL 2:56 PM MARINE ELECTRICIAN Specimen Anatomical Collection Method / Collection Time Recei merry Time (Source) Location / Volume Laterality Blood specimen Venipuncture / 10/09/2019 2:49 10/09/19 20 2:51 (specimen) Unknown PM MARINE ELECTRICIAN PM MARINE ELECTRICIAN Karis Hale CNM LAB - BLOOD ORDERABLES Rubella Antibody IgG Quantitative (10/09/2019 2:49 PM MARINE ELECTRICIAN) Analysis [facility] Signature Rubella Positive 10/10/2019 [facility] Antibody IgG 9:42 AM MARINE ELECTRICIAN [facility] Specimen Anatomical Collection Method / Collection Time Recei merry Time (Source) Location / Volume Laterality Blood specimen Venipuncture / 10/09/2019 2:49 10/09/19 20 4:44 (specimen) Unknown PM MARINE ELECTRICIAN PM MARINE ELECTRICIAN Narrative O LABORATORY - 10/10/2019 9:42 AM MARINE ELECTRICIAN Negative: Absence of detectable rubella virus IgG antibodies. A negative result presumes that immunity has not been acquired. Equivocal: Suggest recollection. Positive: Considered positive for IgG an tibodies to rubella virus. Karis BAKER LAB - BLOOD ORDERABLES Performing Organization Address City/[facility]/[place] [address] [phone] [id number] [place] [id number] [place] [address] Antibody screen red cell (10/09/2019 2:49 PM MARINE ELECTRICIAN) athologist Signature Antibody Negative 10/09/2019 BLOOD BANK Screen 3:58 PM MARINE ELECTRICIAN Specimen Anatomical Collection Method / Collection Time Recei merry Time (Source) Location / Volume Laterality Blood specimen Venipuncture / 10/09/2019 2:49 10/09/19 20 2:51 (specimen) Unknown PM MARINE ELECTRICIAN PM MARINE ELECTRICIAN Karis BAKER LAB - BLOOD BANK TEST ORDER Performing Organization Address City/[facility]/ZIP [facility] [place] e Number [facility] BLOOD BANK [address] [place] [address] BLOOD BANK [address] [place] [address] ABO and Rh (10/09/2019 2:49 PM MARINE ELECTRICIAN) athologist Signature ABO/RH(D) B NEG 10/09/2019 3:31 PM MARINE ELECTRICIAN ABORH REPEAT B NEG 10/09/2019 3:31 PM MARINE ELECTRICIAN Specimen Anatomical Collection Method / Collection Time Recei merry Time (Source) Location / Volume Laterality Blood specimen Venipuncture / 10/09/2019 2:49 10/09/19 20 2:51 (specimen) Unknown PM MARINE ELECTRICIAN PM MARINE ELECTRICIAN Karis Hale CNM LAB - BLOOD BANK TEST ORDER documented in this encounter Visit Diagnoses Diagnosis High-risk supervision, first t rimester BMI 39.0-39.9,adult Body Mass Index 39.0-39.9, adult documented in this encounter Additional Health Concerns Assessment Noted Time PHQ-9 Depression Total Score: 7 07/27/2018 7:15 AM MARINE ELECTRICIAN documented as of this encounter Care Teams Cadd Manager Relationship Specialty Start Date End Date Rashida Pederson APRN BIT WELDER PCP - General Nurse Practitioner 10/08/14 [address] [place] [address] Rashida Pederson APRN BIT WELDER Assigned PCP 10/14/14 07/26/21 [address] [place] [address] documented as of this encounter
--- OUTSIDE RECORDS SUMMARY | 2022-06-17 09:11 | XMS_ITS | Encounter Summary ---
:1985 Author Organization [place] Address [address] [place] [address] Care Team Providers Name Role Phone Rashida Pederson APRN PERSONAL CARE AIDE Primary Care Provider [phone] Rashida Pederson APRN PERSONAL CARE AIDE Unavailable [phone] Encounter Details Date Type Department Care Team Description 09/07/2019 Communication - [facility] Karis Hale, [facility] [address] [facility] [address] [facility] [address] [place] [address] Social History Tobacco Use Types [...] Depression Total Score: 7 07/27/2018 7:15 AM BLACK BELT documented as of this encounter Care Teams Primary Teaching Assistant Relationship Specialty Start Date End Date Rashida Pederson APRN PERSONAL CARE AIDE PCP - General Nurse Practitioner 10/08/14 [address] [place], [place] [id number] Rashida Pederson APRN PERSONAL CARE AIDE Assigned PCP 10/14/14 07/26/21 [address] [place], [place] [id number] documented as of this encounter
--- OUTSIDE RECORDS SUMMARY | 2022-06-17 09:11 | XMS_ITS | Encounter Summary ---
:1985 Author Organization [place] Address [address] [place] [address] Care Team Providers Name Role Phone Rashida Pederson APRN RIBBING MACHINE OPERATOR Primary Care Provider [phone] Rashida Pederson APRN RIBBING MACHINE OPERATOR Unavailable [phone] Encounter Details Date Type Department Care Team Description 01/04/2020 Communication - [facility] Junie Saavedra, [facility] [address] [place] [address] [place] [address] Social History Tobacco Use Types [...] Depression Total Score: 7 07/27/2018 7:15 AM WHARF ATTENDANT documented as of this encounter Care Teams Ct Tech Relationship Specialty Start Date End Date Rashida Pederson APRN RIBBING MACHINE OPERATOR PCP - General Nurse Practitioner 10/08/14 [address] [place], [place] [phone] Rashida Pederson APRN RIBBING MACHINE OPERATOR Assigned PCP 10/14/14 07/26/21 [address] [place], [place] [phone] documented as of this encounter
--- OUTSIDE RECORDS SUMMARY | 2022-06-17 09:11 | XMS_ITS | Encounter Summary ---
:1985 Author Organization [place] Address [address] [place] [address] Care Team Providers Name Role Phone Rashida Pederson APRN SR COMMUNITY MANAGER Primary Care Provider [phone] Rashida Pederson APRN SR COMMUNITY MANAGER Unavailable [phone] Reason for Visit Reason Comments Care Encounter Details Date Type Department Care Team Description 01/25/2020 Office [facility] Temitope Fitzgerald High- risk , second trimester; Visit - [facility] ZIYAD Cooley Rh negative state in antepartum period; [facility] [address] Vaginal odor; [address] BMI 39.0-39.9,adult; Drive [address] At high risk for venous thromboembolism (VTE) [facility] [address] [place], [place] [phone] (Work) [phone] Social History Tobacco Use Types Packs/Day Years [...] is going well for her. Working on [employer]. Reports that they recently laid off their Stroboscope Operator, and she is sad about that, but she didfind a YouSoundFitube channel that gives education from a dental technician metal, and her sister is a laborand delivery nurse at [facility]. They plan to have her come over [...] risk areas. 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 Reviewed COVID19 hospital policies including limit [...] Fitzgerald CNM - 01/25/2020 1:[address] [facility] Nurse Midwives - Contact information: Appointment line and to get a hold of CNM in clinic Wednesday-Wednesday 8 am - 5 pm: . Thereare some clinics with early start times (1st appointment 7:40 am) and others with evening hours (last appointment 6:20 pm). Most are typically open from 8 am to 5 pm. CNM rehab director occupational therapist answering service: . Specify your hospital of choice and leave a brief message for CNM; road machine operator will then page CNM who is rehab director occupational therapist at your specified hospital and you should [...] F. You are invited to Meet the [facility] Nurse-Midwives A way to tour the hospital Labor and Delivery unit and meet the midwives that attend births since you may not have the opportunity to meet them during your care. Some sessions are informal meet and greet type social hours, others address a specific concern or topic. Thursday, September 27, 2018 7-8pm [facility] Friday, November 30, 2018 7-8pm [facility], Auditorium A March 7-8pm [facility] Friday June 28, 2019 7-8 pm [facility], Auditorum A Please call [phone] to register Touring the Maternity Care Center To schedule a tour at either [place] or [facility], please do so online using the following links: [facility] - https://www.RFI Informatique/[email or web address]?s=[email or web address]&m=303&vs=5&p=2& amp;jkxzi=556&ps=1&group=37&it=1&tbf=930 [facility] - https://www.RFI Informatique/registerlist.asp?s=6&m=303&vs=5&p=2&a mp;yzvcx=530&ps=1&group=38&it=1&txi=654 DAILY MOVEMENT COUNTING One of the best ways to keep track of a healthy baby is to notice its movements. Healthy babies are very active. However, some perfectly normal babies may sleep quietly as long as 60 minutes without moving. Babies who are having problems are sluggish and move less. Counting these movements can provideyour nurse-bag making machine operator with a warning of developing problems. You [...] your baby so you can tell your nurse-bag making machine operator when something different is happening. CALL THE NURSE-REAL ESTATE TRANSACTION COORDINATOR IF: ?? You do not feel 10 [...] have any questions or concerns, ask your bag making machine operator. ?? You???ll gain more weight from fluids, [...] Patients are advised to be evaluated at [facility] since they have a Intensive Care Unit [...] second or third trimester Evaluating Labor Your bag making machine operator will try to find out whether you???re [...] cervix is still thick and closed, the bag making machine operator may ask you to do the following at home: ?? Drink plenty of water. ?? Do fewer activities. ?? Rest in bed on your side. ?? Avoid intercourse and nipple stimulation. When to Call Your Therapeutic Assistant ?? Five or more contractions per hour [...] baby???s lungs mature morequickly. Syphilis Screening: The [place] Department of Health ([facility]) provided new recommendations for screening during . If you are , [facility] recommends testing three times during your : at your first visit,28 weeks, and after delivery. Syphilis is: ?? Caused by a bacteria spread by sexual contact ?? Rising among [place] women of child-bearing age Syphilis can: ?? [...] length. Discuss your work situation with your bag making machine operator or physician as needed. If you stand for long periods of time, you may need to make changes and take breaks. Pre-register after 30 weeks online at the hospital where your baby will be born https://sslforms.[place].org/preregistration/he.asp Be aware of your baby's activity level. You may be asked to do daily movement counts. Contact your bag making machine operator or physician about any decreased movement. You [...] baby including breast-feeding and/or baby formula. The [place] Academy of Pediatrics recommends exclusivebreast-feeding for the [...] baby? Your baby will usually be placed zpjx-hz-knnu immediately following . The skin to skin [...] normal. There are numerous resources available at [facility] Hospitals, Clinics and beyond. ??? If your [...] Clinic Resources: -Schedule an appointment with a [facility] SAMUELM who is also a Solar Energy Consultant And Designer by calling [phone] -Schedule a clinic appointment with a [facility] SAMUELM with dedicated clinic hours for assistance by calling [phone]. clinic visits are at [facility] on Mondays, [facility] on Tuesdays and [facility] on . -Baby Caf?? and interested in [...] for the Baby Caf?? closest to you! [facility] [address] [place] [address] Wednesday: 10am-12pm [facility] [address] [place] [address] Wednesday 4-6pm [address] [address] Wednesday 10am-12:30pm [employer] [address] [place] [address] Wednesdays: 4-6pm Hmong, Estonian, and Lithuanian which is may be available at some sites. For more information, please contact: Beatris [email or web address]. or [phone] -Attend a baby weigh in at [facility]. consultants are available to answer questions Katja: Tuesdays 1:00 - 2:00 [facility]: Mondays 1:00 - 2:00 www.THYME.AirWare Lab -Attend one of the [facility] groups at [facility] in [facility]. [facility] also offers one-on-one in home and in office consults. www.[facility].AirWare Lab -Attend a Lukas Oconnor meeting. Multiple groups in several locations throughout the [facility]. The meetings are no-cost and always informative education session through Internatal Belem Oconnor Www.angelalondas.org/ Medication use while : http://toxnet.nlm.nih.gov/newtoxnet/lactmed.htm Online Resources: ??? healtheast.org/baby sign up for free online weekly e-mail ??? healtheast.org/maternity ??? Breastfeedingmadesimple.com ??? [employer].Beijing Lingtu Software (Belem Oconnor) ??? Normalfed.AirWare Lab ??? Womenshealth.gov/ ??? Weotta.AirWare Lab Breast-feeding Supplies & Pumps: Talk to your insurance provider or WIC (Women, Infants and Children) to learn more about options available to you. Recent health insurance changes may include additional coverage for supplies and pumps. Public Health: Women, Infants and Children Nutrition program (WIC): provides breast-feeding support and education in addition to formal feeding moms. 464-XZD-5668 or http://www.health.critical access hospital.dc.us/divs/fh/wic Family Health Home Visiting: Public Health Nurse home visits are available. Talk to your provider tosee if you qualify. Most [facility] have a program available. Additional Resources: Belem Oconnor is an international, nonprofit, nonsectarian organization offering information, education, and support to mothers who want to breast-feed their babies. Local groups offer phone help andmonthly meetings. Visit SoundRoadie.Beijing Lingtu Software or Network Merchants.Beijing Lingtu Software and us the ???Find local support?? drop down menu or click on the ???Resources?? tab. [place] Resources: 2-086-385-BABY (5533) toll free National Help Line trained peer counselors can help answer common breast-feeding questions by phone. Wednesday-Wednesday: Swiss/Estonian [phone] toll free, (TTY) [facility]: 954-809-VWNE ([phone]) Resources: Childbirth and Parenting Education: [facility]: http://[facility] special care hospitalMicrobank Software/ (189) 136-BBPT Blooma: (education, yoga & wellness) www.dotSyntax Enlightened Mama: www.TheCommentorenedNiblitz.AirWare Lab Childbirth collective: (Parent topic nights) www.childbirthcollective.org/ Hypnobabies: www.hypnobabiestwincities.AirWare Lab/ Hypnobirthing: Http://hypnobirthing.com/ Book Recommendations: Susan Milla's Birthing [...] deciding to wean and deciding not to. [place] College of Nurse-Midwives (ACNM) http://www.bag making machine operator.org/; look at the informational handouts at http://www.bag making machine operator.org/Yfqyv-Xttg-Uytgl www.mymidwife.org Mother to Baby (Medication and Herbal guidance in ): http://www.mothertobaby.org Toll-Free Hotline: 918.815.4916 LactMed (Medication use while ): http://toxnet.nlm.nih.gov/newtoxnet/lactmed.htm Women's Health.gov: http://www.womenshealth.gov/a-z-topics/index.html Indonesian association - http://americanpregnancy.org Centering (group care option): http://centeringhealthcare.org Information about doulas: Childbirth collective: http://www.childbirthcollective.org/ Doulas of [place] (CARRI): www.carri.org Botanica Exotica [facility] dental technician metal project: http://twincitiesdoulaproject.com/ Artificial Cherry Maker and Family Education (ECFE): ECFE offers parents hands-on learning experiences that will nourish a lifetime of teachable moments. http://ecfe.info/ecfe-home/ October www.Sjapper.AirWare Lab FDA - Nutrition www.mypyramid.gov Under For Consumers, click on and women. Centers for Disease Control and Prevention (CDC) - Vaccines : http://www.cdc.gov/vaccines/ When researching information on the web, question the validity of websites. The Agency for Student Health Research .gov, .PurposeMatch (formerly SPARXlife) and.org tend to be more reliable information. If there are a lot of advertisements, be cautious of theinformation provided. Stay away from blogs and chat rooms please! Virtual Support: During this time of isolation, families need even more community! Here are some area organizations offering virtual support groups for : ??? [facility] Cafe Support Group, Tuesdays at 10:30 am Run by LIZ Rubin of The Baby Whisperer [employer]ants Go to The Baby Whisperer Consultants Facebook page and click on events for link https://[email or web address]/ ??? [facility] Milk Hour, at 2:30 pm Run by LIZ Mosley Go to [facility] Center + [facility] FB page and send message to get link https://www.Kozio.com/healthfoundations/ ??? [facility] holding virtual meetings the first Wednesday of each month, 8-9 pm, and the Third Wednesday, 10 - 11 am. Go to [facility] and [place] FB page; message to get link https://www.Kozio.com/LLLofGoldenValley/?hc_location=woman's hospital ??? PROSimity offers a Lounge every Wednesday 12pm - 1pm, run by Harleen Robles Leader Sign up via link at dotSyntax/cbe- https://www.dotSyntax/cbe- ??? [facility] is offering virtual support groups every Wednesday, 10:30 am - 12 pm, run bynurse HILL Https://www.Kozio.com/events/[email or web address]/ Classes: ??? PROSimity is offering virtual and care classes: https://wwwYap/education-workshops ??? BirthEd childbirth and education offering virtual classes https://www.deltamethod/workshops documented in this encounter Plan of Treatment [...] ORDERABLES Wet prep (01/25/2020 1:58 PM CDT) [facility] gist Method Time Signature Yeast No yeast [...] Number [facility] [address] [place] [address] BLOOD BANK [address] [place] [address] Glucose tolerance gest screen 1 hour (01/25/2020 1:58 PM CDT) athologist [facility] Glu Gest 120 70 - 139 01/25/2020 [...] Depression Total Score: 7 07/27/2018 7:15 AM MULTIFOCAL LENS ASSEMBLER documented as of this encounter Care Teams Php Architect Relationship Specialty Start Date End Date Rashida Pederson APRN SR COMMUNITY MANAGER PCP - General Nurse Practitioner 10/08/14 [address] [place], [place] [id number] Rashida Pederson APRN SR COMMUNITY MANAGER Assigned PCP 10/14/14 07/26/21 [address] [place], [place] [id number] documented as of this encounter
--- OUTSIDE RECORDS SUMMARY | 2022-06-17 09:11 | XMS_ITS | Encounter Summary ---
:1985 Author Organization [place] Address [address] [place] [address] Care Team Providers Name Role Phone Rashida Pederson APRN BOXING TRAINER Primary Care Provider [phone] Rashida Pederson APRN BOXING TRAINER Unavailable [phone] Encounter Details Date Type Department Care Team Description 08/24/2019 Communication - [facility] Karis Hale, [facility] [facility] [address] [facility] [address] [place] [address] Social History Tobacco Use Types [...] Depression Total Score: 7 07/27/2018 7:15 AM SCHOOL TRANSPORTATION DIRECTOR documented as of this encounter Care Teams Roads Superintendent Relationship Specialty Start Date End Date Rashida Pederson APRN BOXING TRAINER PCP - General Nurse Practitioner 10/08/14 [address] [place], [place] [id number] Rashida Pederson APRN BOXING TRAINER Assigned PCP 10/14/14 07/26/21 [address] [place], [place] [id number] documented as of this encounter
--- OUTSIDE RECORDS SUMMARY | 2022-06-17 09:11 | XMS_ITS | Encounter Summary ---
:1985 Author Organization [facility] Address [address] [place] [address] Care Team Providers Name Role Phone Rashida Pederson APRN CHART CLERK Primary Care Provider [phone] Rashida Pederson APRN CHART CLERK Unavailable [phone] Encounter Details Date Type Department Care Team Description 10/05/2019 Hospital Encounter [facility] ZiKaris morelos , [facility] examination or [facility] [address], positive [address] [place], [place] [phone] Social History Tobacco Use Types Packs/Day Years [...] 3:10 PM Resul ts for this SINGLE-TRANSABDOMIN PIPE WELDER examination or test, procedure are in [place] positive result the results section. documented in this encounter Results US OB < 14 Weeks Single (10/05/2019 3:10 PM PIPE WELDER) Anatomical Region Laterality Modality Abdomen/Pelvis Other Specimen (Source) Anatomical Location Collection Method / Collectio n Time Received Time / Laterality Volume Impressions 10/05/2019 3:15 PM PIPE WELDER 1. ??Single living intrauterine gestatio n at 12 weeks and 5 days, EDC 04/13/2020. Narrative 10/05/2019 3:15 PM PIPE WELDER EXAM: OB < 14 WEEKS LOCATION: [facility] DATE/TIME: 10/05/2019 3:10 PM INDICATION: early dating [...] original. EXAM: OB < 14 WEEKS LOCATION: [facility] DATE/TIME: 10/05/2019 3:10 PM INDICATION: early dating [...] 5 days, EDC 04/13/2020. Karis Hale CNM [facility] ORDERABLES documented in this encounter Visit Diagnoses Diagnosis examination or test, positive result documented in this encounter Additional Health Concerns Assessment Noted Time PHQ-9 Depression Total Score: 7 07/27/2018 7:15 AM PIPE WELDER documented as of this encounter Care Teams Buyer Liaison Relationship Specialty Start Date End Date Rashida Pederson APRN CHART CLERK PCP - General Nurse Practitioner 10/08/14 [address] [place] [address] Rashida Pederson APRN CHART CLERK Assigned PCP 10/14/14 07/26/21 [address] [place] [address] documented as of this encounter
--- OUTSIDE RECORDS SUMMARY | 2022-06-17 09:11 | XMS_ITS | Encounter Summary ---
:1985 Author Organization [place] Address [address] [place] [address] Care Team Providers Name Role Phone Rashida Pederson APRN FRUIT I FARMWORKER Primary Care Provider [phone] Rashida Pederson APRN FRUIT I FARMWORKER Unavailable [phone] Reason for Visit Reason Comments Care LMP: 07/13/19 Encounter Details Date Type Department Care Team Description 10/05/2019 Office [facility] Karis Hale High -risk supervision, first trimester; Visit - [facility], [facility] BMI 39.0-39.9,adult; [place] [address] History of pulmonary embolis m; [address] At high risk for venous thromboembolism (VTE) Drive [address] [phone] [address] (Work) [phone] Social History Tobacco Use Types Packs/Day Years [...] Comments Blood Pressure 110/74 10/05/2019 1:23 PM DRYING ROOM ATTENDANT Pulse 84 10/05/2019 1:23 PM DRYING ROOM ATTENDANT Temperature - - Respiratory Rate - - Oxygen Saturation - - Inhaled Oxygen Concentration - - Weight 111 kg (244 lb 12.8 oz) 10/05/2019 1:23 PM DRYING ROOM ATTENDANT Height 167 cm (5' 5.75) 10/05/2019 1:23 PM DRYING ROOM ATTENDANT Body Mass Index 39.81 10/05/2019 1:23 PM DRYING ROOM ATTENDANT documented in this encounter Progress Notes Karis [...] Vitamin D supplement (1,000-2,000 IU/day) and an Bergen 3/fish oil/DHA is beneficial. Research also supports [...] by mouth. 1-2 servings per day. ??? prenat.vits,ant,rar-elgj-qmmkh ( VITAMIN) Tab Take 2 tablets by [...] Ref Range Test, Urine Positive (!) Negative NG ROOM ATTENDANT documented in this encounter Miscellaneous Notes Patient Instructions - HE - Karis Hale CNM - 10/05/2019 1:20 PM DRYING ROOM ATTENDANT Welcome to [facility] and thank you for choosing us for your maternity care provider! Congratulations! [facility] Nurse Midwives - Contact information: Appointment line and to get a hold of CNM in clinic Wednesday-Wednesday 8 am - 5 pm: . Thereare some clinics with early start times (1st appointment 7:40 am) and others with evening hours (last appointment 6:20 pm). Most are typically open from 8 am to 5 pm. CNM system controller answering service: . Specify your hospital of choice and leave a brief message for CNM; burn out scarfing operator will then page CNM who is system controller at your specified hospital and you should [...] nipples and thighs may also change. ?? [place] stretch ivan may appear on your abdomen, [...] the risk of stillbirth or having a jey-hiuph-nznkic baby. If you smoke, quit now. ?? [...] If you haveother questions, talk with a insurance writer. Will Working Harm My Baby? In most [...] Which Medications Are Safe? No prescription or tipw-tlh-wvjkija drug is safe for everyone all of the time. But sometimes medications are needed. Be sure your health care provider knows you are . Then use only the medications he or she advises you to take. Please refer to the below resources for further information and discuss concern and questions with your insurance writer. Is It True That I Can Overheat [...] the load nearer. ?? Get a good border inspector. Test the weight of the load. ?? [...] legs can bend. GENETIC SCREENING OPTIONS AT [facility] ??? All testing is optional. We don???t [...] Car Sachs, Sickle Cell, Hemophilia, Muscular Dystrophy, Dewey???s disease and many others. ??? Cystic Fibrosis (CF) affects both males and females and people from all racial and ethnic groups. However, the disease is most common among Caucasians of Northern descent. CF is also common among Latinos and Mauritian Indians. The disease is less common among [...] A referral to a genetic counselor at [facility] or [facility] can be made by your care provider at any time. ??? This is also tested for in the [place] Metabolic Screen that your receives 24 hours afterbirth. DNA cell Testing: Caratunk or Innatal (Non-Invasive Testing) ??? At 10 [...] protein). An ultrasound should be able to sampler pickup any spinal defect as well. ??? Follow-up [...] definitive diagnosis Referrals opportunities include: ??? [facility] clinical research associate, [facility], Partners Resource Forester o Offers nuchal translucency ultrasound; does not offer genetic counseling. ??? [facility] and [facility] ([facility]): o Approximately an hour long visit includes 30 min with genetic counselor who discusses all testing available and which ones might be beneficial to you based on age, personal and family history. o Blood will be drawn and the nuchal translucency ultrasound will be discussed and performed if desired. The Free DNA testing (Caratunk/Verifi) can be drawn also. o Targeted or detailed Level II ultrasounds are also available with these perinatology groups. : a Healthy Option for You and Your Baby Consider for the healthiest way to feed your baby. Ask your insurance writer or physician for more information. The choice of how you will feed your baby is important. Before your baby???s , you???ll want tolearn about the benefits of . [facility] have been designated Baby Friendly; an initiative [...] your baby. Some important considerations: ??? The [place] Academy of Pediatrics, the World Health Organization, [...] that includes preparation. and classesare offered by [employer] [place]. Visit [employer] for class information. ??? After your baby???s [...] Right book or find it online at http://www.[facility].org/images/s tories/maternity/EvkjbxImaw-Vxqcsdmh-Hoq-Right.pdf or http://www.[facility].org/images/stories/meg frazier/swhtuepcnx-djfnhube-uqq-right/ysobdujvis-waawyymv-gzt-right.html#p=8 You can sign up for a weekly parenting e-mail that gives support, tips and advice from health care services manager that starts with and continues through the toddler years. To register, go to www.[facility].org/baby at any time during your . : OUTPATIENT RESOURCES Baby Friendly Hospitals and clinics: https://www.[facility].org/maternity/ndbml-qfzxfeheg-upgb/baby-friendly.html -Schedule an appointment with a [facility] CNM who is also a Precision Crop Manager by calling [phone] -Schedule an appointment with a [facility] CNM who is also a Precision Crop Manager by calling [phone]. We see women for visits at [facility] and [facility]. -Baby Caf?? and interested in ? Need [...] the Baby Caf?? closest to you! Hmong, Maltese, and Palestinian which is may be available at some sites. [facility] [address] [place] [address] Wednesday: 10am-12pm [facility] [address] [place] [address] Wednesday 4-6pm [facility] [address] [place] [address] Wednesday 10am-12:30pm [facility] [address] [place] [address] Wednesdays: 4-6pm -Attend a baby weigh in at [facility]. consultants are available to answer questions Katja: Tuesdays 1:00 - 2:00 [facility], [facility]: Mondays 1:00 - 2:00 www.[employer] -Attend one of the New Mama groups at [facility] in [facility]. [facility] also offers one-on-one in home and in office consults. www.[employer] -Attend a Lukas Oconnor meeting. Multiple groups in several locations throughout the [facility]. The meetings are no-cost and always informative education session through [facility] Belem Oconnor Www.acosta.org/ Held at [facility] the second of each month at 7pm Childbirth and Parenting Education: [facility]: http://Pow[employer]s/ (642) 215-YWKB [place]: (education, yoga & wellness) www.[facility]: www.[employer] Childbirth collective: (Parent topic nights) www.childbirthcollective.org/ Hypnobabies: [...] deciding to wean and deciding not to. [place] College of Nurse-Midwives (ACNM) http://www.insurance writer.org/; look at the informational handouts at http://www.insurance writer.org/Sdwmq-Ydsk-Npteb www.mymidwife.org Mother to Baby (Medication and Herbal guidance in ): http://www.mothertobaby.org Toll-Free Hotline: 399.516.5437 LactMed (Medication use while ): http://toxnet.nlm.nih.gov/newtoxnet/lactmed.htm Women's Health.gov: http://www.womenshealth.gov/a-z-topics/index.html Mauritian association - http://americanpregnancy.org Centering (group care option): http://centeringhealthcare.org Information about doulas: Childbirth collective: http://www.childbirthcollective.org/ [facility] [facility] [place] (CARRI): www.carri.org [facility] rfid manager project: http://Getit InfoServicescitiesdoulaproject.com/ Customer Service Operator and Family Education (ECFE): ECFE offers parents hands-on learning experiences that will nourish a lifetime of teachable moments. http://ecfe.info/ecfe-home/ October www.Yatra.com FDA - Nutrition www.mypyramid.gov Under For Consumers, [...] pills, chews). Take with dairy Vitamin D3 3882-3570 IU geltab daily. Take with fattiest meal. Look for fortified foods also (Dairy,Juice) 2-3 (4) oz servings of fish, seafood, nuts (walnuts & almonds), oils, avocado per week - if not,take Bergen 3 Fatty acids: DHA & SAV 6943-1139 mg per day. Other names: cod liver oil, fish oil. Take with fattiest meal. Some prenatals have DHA, but typically not a sufficient dose. Fish: Do not eat shark, swordfish, katalina mackerel, or tilefish when you are or . They contain high levels of mercury. Limit white (albacore) tuna to no more than 6 ounces per week. Http://www.fda.gov/downloads/ForConsumers/ConsumerUpdates/ZEQ164189.pdf Touring the Maternity Care Center To schedule a tour at either [place] or [facility], please do so online using the following links: [facility] - https://www.The Spoken Thought.Stereomood/registerlist.asp?s=6&m=303&vs=5&p=2& amp;japje=769&ps=1&group=37&it=1&uty=079 [facility] - https://www.The Spoken Thought.Stereomood/registerlist.asp?s=6&m=303&vs=5&p=2&a mp;qqmxl=323&ps=1&group=38&it=1&wcn=413 You are invited to Meet the [facility] Nurse-Midwives A way to tour the [...] Medical Center Friday, November 30, 2018 7-8pm [facility] Auditorium A March 7-8pm [place] Friday June 28, 2019 7-8 pm [facility] Auditor[facility] A Please call [phone] to register NG ROOM ATTENDANT documented in this encounter Plan of Treatment Not on filedocumented as of this encounter Visit Diagnoses Diagnosis High-risk supervision, first t rimester BMI 39.0-39.9,adult Body Mass Index 39.0-39.9, adult History of pulmonary embolism Personal history of pulmonary embolism At high risk for venous thromboembolism (VTE) documented in this encounter Additional Health Concerns Assessment Noted Time PHQ-9 Depression Total Score: 7 07/27/2018 7:15 AM DRYING ROOM ATTENDANT documented as of this encounter Care Teams Clerical Office Worker Relationship Specialty Start Date End Date Rashida Pederson APRN FRUIT I FARMWORKER PCP - General Nurse Practitioner 10/08/14 [address] [place], [place] [id number] Rashida Pederson APRN FRUIT I FARMWORKER Assigned PCP 10/14/14 07/26/21 [address] [place], [place] [id number] documented as of this encounter
--- OUTSIDE RECORDS SUMMARY | 2022-06-17 09:11 | XMS_ITS | Encounter Summary ---
:1985 Author Organization [place] Address [address] [place] [address] Care Team Providers Name Role Phone Rashida Pederson APRN LABORATORY MECHANIC HELPER Primary Care Provider [phone] Rashida Pederson APRN LABORATORY MECHANIC HELPER Unavailable [phone] Reason for Visit Reason Comments Consult Encounter Details Date Type Department Care Team Description 09/05/2019 Office Visit - [facility] Ruchi Decker MD History of pulmonary embolism; [address] Obesity affecting , antepartum [address] [phone] Social History Tobacco Use Types Packs/Day Years [...] Comments Blood Pressure 118/80 09/05/2019 12:55 PM HOURLY SALES STAFF Pulse 68 09/05/2019 12:55 PM HOURLY SALES STAFF Temperature - - Respiratory Rate - - Oxygen Saturation - - Inhaled Oxygen Concentration - - Weight 110.7 kg (244 lb) 09/05/2019 12:55 PM HOURLY SALES STAFF Height 167 cm (5' 5.75) 09/05/2019 12:55 PM HOURLY SALES STAFF Body Mass Index 39.68 09/05/2019 12:55 PM HOURLY SALES STAFF documented in this encounter Progress Notes Ruchi [...] Occupational History ??? 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 Financial resource strain: None [...] on phone: None Gets together: None Attends quaker service: None Active member of club or [...] mouth 2 (two) times a day. ??? prenat.vits,ant,dim-ylku-lhuwy ( VITAMIN) Tab Take 2 tablets by [...] the patient with the majority in counseling. LY SALES STAFF documented in this encounter Plan of Treatment Not on filedocumented as of this encounter Visit Diagnoses Diagnosis History of pulmonary embolism Personal history of pulmonary embolism Obesity affecting , antepartum documented in this encounter Additional Health Concerns Assessment Noted Time PHQ-9 Depression Total Score: 7 07/27/2018 7:15 AM HOURLY SALES STAFF documented as of this encounter Care Teams Broadcast Checker Relationship Specialty Start Date End Date Rashida Pederson APRN LABORATORY MECHANIC HELPER PCP - General Nurse Practitioner 10/08/14 [address] [place] [address] Rasihda Pederson APRN CNP Assigned PCP 10/14/14 07/26/21 [address] [place] [address] documented as of this encounter
--- OUTSIDE RECORDS SUMMARY | 2022-06-17 09:11 | XMS_ITS | Encounter Summary ---
:1985 Author Organization [place] Address [address] [place] [address] Care Team Providers Name Role Phone Rashida Pederson APRN HEAVY EQUIPMENT DIESEL MECHANIC Primary Care Provider [phone] Rashida Pederson APRN HEAVY EQUIPMENT DIESEL MECHANIC Unavailable [phone] Encounter Details Date Type Department Care Team Description 11/29/2019 Hospital Encounter [facility] Paty Lewis High-risk [facility], CN , second [facility] [address] trimester [address] [place], [place] [address] [phone] [place], [place] (Work) [address] [phone] Social History Tobacco Use Types Packs/Day Years [...] Addendum: Additional information provide d by the ct scan special procedures technologist: Image 8:1 is the placental cord [...] US OB > = 14 WEEKS LOCATION: [facility] DATE/TIME: 11/29/2019 2:56 PM INDICATION: survey. COMPARISON: [...] US OB > = 14 WEEKS LOCATION: [facility] DATE/TIME: 11/29/2019 2:56 PM INDICATION: survey. COMPARISON: [...] Depression Total Score: 7 07/27/2018 7:15 AM ULTRASOUND TECHNICIAN documented as of this encounter Care Teams Environmental Field Office Manager Relationship Specialty Start Date End Date Rashida Pederson APRN HEAVY EQUIPMENT DIESEL MECHANIC PCP - General Nurse Practitioner 10/08/14 [address] [place] [address] Rashida Pederson APRN HEAVY EQUIPMENT DIESEL MECHANIC Assigned PCP 10/14/14 07/26/21 [address] [place] [address] documented as of this encounter
--- OUTSIDE RECORDS SUMMARY | 2022-06-17 09:11 | XMS_ITS | Encounter Summary ---
:1985 Author Organization [place] Address [address] [place] [address] Care Team Providers Name Role Phone Rashida Pederson APRN SHEETMETAL PATTERNMAKER Primary Care Provider [phone] Rashida Pederson APRN SHEETMETAL PATTERNMAKER Unavailable [phone] Encounter Details Date Type Department Care Team Description 02/08/2020 [facility] ZIYAD Zaman CNM [facility] 1875 1-800-DENTIST [address] [place] [address] Social History Tobacco Use Types [...] Depression Total Score: 7 07/27/2018 7:15 AM VEST MAKER documented as of this encounter Care Teams Sales Account Specialist Relationship Specialty Start Date End Date Rashida Pederson APRN SHEETMETAL PATTERNMAKER PCP - General Nurse Practitioner 10/08/14 [address] [place] [address] Rashida Pederson APRN SHEETMETAL PATTERNMAKER Assigned PCP 10/14/14 07/26/21 [address] [place] [address] documented as of this encounter
--- OUTSIDE RECORDS SUMMARY | 2022-06-17 09:11 | XMS_ITS | Encounter Summary ---
:1985 Author Organization [place] Address [address] [place] [address] Care Team Providers Name Role Phone Rashida Pederson APRN BUREAU DIRECTOR Primary Care Provider [phone] Rashida Pederson APRN BUREAU DIRECTOR Unavailable [phone] Reason for Visit Reason Comments Care 17w5d Encounter Details Date Type Department Care Team Description 11/14/2019 Office [facility] Paty Lewis gh-risk Visit - [facility] , second [facility] [address] trimester [address] [place] [address] [address] [facility] [phone] [place] (Work) [place], [place] [phone] (Fax) [phone] Social History Tobacco Use Types Packs/Day Years [...] Lewis CNM - 11/14/2019 2:00 PM CDT [facility] - Contact information: Appointment line and to get a hold of CNM in clinic Wednesday-Wednesday 8 am - 5 pm: . Thereare some clinics with early start times (1st appointment 7:40 am) and others with evening hours (last appointment 6:20 pm). Most are typically open from 8 am to 5 pm. CNM building consultant answering service: . Specify your hospital of choice and leave a brief message for CNM; computer numerical control operator will then page CNM who is building consultant at your specified hospital and you should [...] F. You are invited to Meet the [facility] Nurse-Midwives A way to tour the hospital Labor and Delivery unit and meet the midwives that attend births since you may not have the opportunity to meet them during your care. Some sessions are informal meet and greet type social hours, others address a specific concern or topic. Thursday, September 27, 2018 7-8pm [facility] Friday, November 30, 2018 7-8pm [facility] Auditorium A March 7-8pm [place] Friday June 28, 2019 7-[address] [facility] A Please call [phone] to register UNDERSTANDING LABOR Going into labor before your 37th week of is called labor. labor can causeyour baby to be born too soon. This can lead to a number of health problems that may affect your baby. From 28-35 weeks, Patients are advised to be evaluated at [facility] since they have a Intensive Care Unit [...] second or third trimester Evaluating Labor Your tiler's assistant will try to find out whether you???re [...] cervix is still thick and closed, the tiler's assistant may ask you to do the following at home: ?? Drink plenty of water. ?? Do fewer activities. ?? Rest in bed on your side. ?? Avoid intercourse and nipple stimulation. When to Call Your Customs Entry Clerk ?? Five or more contractions per hour [...] too early. Testing for Gestational Diabetes in [facility] are committed to providing safe care during your . We follow the recommendations of the [place] Diabetes Association and the [place] College of Obstetricians and Gynecologists to test all women for gestational diabetes. Testing early in (if you have risk factors) and testing all women between 26-28 weeks follows local and national guidelines forcare during . Clients who feel that they cannot consent to such testing, may choose to transfer their care to our executive search consultant obstetricians. What is the test? Eat [...] is confirmed and a referral to a software educator will be made. If the level [...] will be made to visit with the software educator. The educator will help you to [...] years after their . Additional Information The [place] College of Nurse Midwives (ACNM) provides an information sheet describing diabetes screening in : http://www.womensdocs.com/mj/pdf/Second_Trimester/Gestational_Diabetes.pdf You can visit the [place] Diabetes Association website http://www.diabetes.org for additional information and to purchase their book, ???Gestational Diabetes: What to Expect?? . A brochure from the [place] College of Obstetrics and Gynecology is available at: http://www.acog.org/~/media/For%20Patients/mhn560.pdf?dmc=1&iu=73951028B56196221 15 Testing for gestational diabetes is a [...] moving around more now. You may notice Stambaugh-Bolden contractions now, which are painless and prepare [...] iron. Discuss your work situation with your tiler's assistant or physician as needed. If you stand for long periods of time, you may need to make changes and take breaks. [place] for childbirth and parenting classes, including an CPR class. classes are recommended too. Childbirth and Parenting Education: [place] parenting center: http://OM Latamsanta clara valley medical centerSpout/ (308) 088-BABY [place]: (education, yoga & wellness) www.Spout Enlightened Mama: www.MyGoodPoints.Disqus Childbirth collective: (Parent topic nights) www.childbirthcollective.org/ Hypnobabies: [...] deciding to wean and deciding not to. [place] College of Nurse-Midwives (ACNM) http://www.tiler's assistant.org/; look at the informational handouts at http://www.tiler's assistant.org/Kpcer-Denv-Wbuqp www.mymidwife.org Mother to Baby (Medication and Herbal guidance in ): http://www.mothertobaby.org Toll-Free Hotline: 804.221.5628 LactMed (Medication use while ): http://toxnet.nlm.nih.gov/newtoxnet/lactmed.htm Women's Health.gov: http://www.womenshealth.gov/a-z-topics/index.html [place] association - http://americanpregnancy.org Centering (group care option): http://centeringhealthcare.org Information about doulas: Childbirth collective: http://www.childbirthcollective.org/ Doulas of [place] (CARRI): www.carri.org [facility] pattern designer project: http://Cardiolacitiesdoulaproject.com/ Night Court Magistrate and Family Education (ECFE): ECFE offers parents hands-on learning experiences that will nourish a lifetime of teachable moments. http://ecfe.info/ecfe-home/ October Dimes www.Avacen.com FDA - Nutrition www.mypyramid.gov Under For Consumers, [...] book or find it online at http://www.healtheast.org/images/s tories/maternity/UuryzrBvup-Sifzcyys-Edt-Right.pdf or http://www.healthCity Grade.org/images/stories/flipbo oks/fqjzbzoqub-dfoktpbn-nak-right/mnvvkkagfn-hueuynpa-tah-right.html#p=8 You can sign up for a weekly parenting e-mail that gives support, tips and advice from health home care attendant that starts with and continues through the toddler years. To register, go to www.healthCity Grade.org/baby at any time during your . Baby Feeding in the Hospital: Information, Support and Resources As you prepare for the of your child, you will want to consider options for feeding your baby including breast-feeding and/or baby formula. The [place] Academy of Pediatrics recommends exclusivebreast-feeding for the [...] baby? Your baby will usually be placed owhc-cj-swyq immediately following . The skin to skin [...] normal. There are numerous resources available at [facility], Clinics and beyond. ??? If your goal [...] or freezer for later use. Touring the [facility] To schedule a tour at either [place] or [facility], please do so online using the following links: [facility] - https://www.Smeam.com.com/registerlist.asp?s=6&m=303&vs=5&p=2& amp;wdtjv=892&ps=1&group=37&it=1&hmy=621 [facility] - https://www.Smeam.com.Disqus/registerlist.asp?s=6&m=303&vs=5&p=2&a mp;uwlwb=802&ps=1&group=38&it=1&ora=214 Hospital and Clinic Resources: -Schedule an appointment with a [facility] CNM who is also a Creping Machine Operator by calling [phone] -Schedule a clinic appointment with a [facility] CNM with dedicated clinic hours for assistance by calling [phone]. clinic visits are at [facility] on Mondays, [facility] on Tuesdays and [facility] on . Baby Caf?? and interested in [...] for the Baby Caf?? closest to you! [facility] [address] [place] [address] Wednesday: 10am-12pm [facility] [address] [place] [address] Wednesday 4-6pm [facility] [address] [place] [address] Wednesday 10am-12:30pm ong [employer] [address] [place] [address] Wednesdays: 4-6pm Hmong, Hong Konger, and Nepalese which is may be available at some sites. For more information, please contact: [email or web address]. or [phone] -Attend a baby weigh in at [facility]. consultants are available to answer questions [place]: Tuesdays 1:00 - 2:00 [facility]: Mondays 1:00 - 2:00 www.[facility]on medical centerBioserie.Disqus -Attend one of the New Mama groups at [facility] in [facility]. [facility] also offers one-on-one in home and in office consults. www.Social Market Analyticscleveland clinic [facility].Disqus -Attend a Lukas League meeting. Multiple groups in several locations throughout the [facility]. The meetings are no-cost and always [...] education in addition to formal feeding moms. 090-YNX-5426 or http://www.health.[facility].us/divs/fh/wic Family Health Home Visiting: [facility] Nurse home visits are available. Talk to your provider tosee if you qualify. Most [facility] have a program available. Additional Resources: Belem Oconnor is an international, nonprofit, nonsectarian organization offering information, education, and support to mothers who want to breast-feed their babies. Local groups offer phone help andmonthly meetings. Visit [employer].VCV or [employer].org and us the ???Find local support?? drop down menu or click on the ???Resources?? tab. [place] Resources: 9-353-108-BABY (4809) toll free National Help Line trained peer counselors can help answer common breast-feeding questions by phone. Wednesday-Wednesday: Saudi Arabian/Hong Konger [phone] toll free, (TTY) [facility] Connection: 958-041-TDSA (0206) documented in this encounter Plan of Treatment Not on filedocumented as of this encounter Visit Diagnoses Diagnosis High-risk , second trimester documented in this encounter Additional Health Concerns Assessment Noted Time PHQ-9 Depression Total Score: 7 07/27/2018 7:15 AM BRUSH WORKER documented as of this encounter Care Teams Bank Clerk Relationship Specialty Start Date End Date Rashida Pederson APRN BUREAU DIRECTOR PCP - General Nurse Practitioner 10/08/14 [address] [place] [address] Rashida Pederson APRN BUREAU DIRECTOR Assigned PCP 10/14/14 07/26/21 [address] [place] [address] documented as of this encounter
--- OUTSIDE RECORDS SUMMARY | 2022-06-17 09:11 | XMS_ITS | Encounter Summary ---
:1985 Author Organization [place] Address [address] [place] [address] Care Team Providers Name Role Phone Rashida Pederson APRN PRINT PROJECT MANAGER Primary Care Provider [phone] Rashida Pederson APRN PRINT PROJECT MANAGER Unavailable [phone] Rashida Pederson APRN PRINT PROJECT MANAGER Unavailable [phone] Encounter Details Date Type Department Care Team [...] Depression Total Score: 7 07/27/2018 7:15 AM MORTARMAN documented as of this encounter Care Teams Reading Recovery Teacher Relationship Specialty Start Date End Date Rashida Pederson APRN PCP - General Nurse Practitioner 10/08/14 PRINT PROJECT MANAGER [address] [place] [address] Rashida Pederson APRN PCP - Assigned PCP 10/14/14 3 PRINT PROJECT MANAGER [address] [facility], [place] [id number] Rashida Pederson APRN Assigned PCP 10/14/14 1 09/26/20 PRINT PROJECT MANAGER [address] [place] [address] documented as of this encounter
--- OUTSIDE RECORDS SUMMARY | 2022-06-17 09:11 | XMS_ITS | Encounter Summary ---
:1985 Author Organization [place] Address [address] [place] [address] Care Team Providers Name Role Phone Rashida Pederson APRN, CNP Primary Care Provider [phone] Rashida Pederson APRN RN OCCUPATIONAL Unavailable [phone] Rashida Pederson APRN, CNP Unavailable [phone] Reason for Visit Reason Comments Physical non-fasting Encounter Details Date Type Department Care Team Description 02/15/2017 Office Visit [facility] Rashida Pederson e xamination (Primary Dx); [facility] [place] ZIYAD Benitez CNP Mirena IUD (intrauterine device) in plac e; [address] [place] [phone] Social History Tobacco Use Types Packs/Day Years [...] several months ago through a clinic in [place]. Has lost weight since starting this medication. Highest weight was 241 lbs. Current weight is 227 lbs. 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 Getting associates degree at [employer] and plans to finish elsewhere for [...] behalf by Janet Davis, a trained medical lab technician. The creation of this document is based the provider's statements to the medical lab technician. Janet Davis February 15, 2017 10:51 AM [...] in this document, created by the medical lab technician for me, accurately reflects the services I personally performed and the decisions made by me. I have reviewed and approved this document for accuracy. Rashida Pederson APRN CNP [facility] documented in this encounter Nursing Notes Maranda [...] Patholo gist Method Time Signature Specimen Vagina EADS Description [facility] Wet Prep No Trichomonas seen EADS No clue cells seen [facility] No yeast seen [place] Micro Report FINAL EADS Status 02/15/2017 [facility] Specimen Anatomical Collection Method Collection Time Receive d Time (Source) Location / / Volume Laterality 02/15/2017 11:00 02/15/2017 AM CDT 11:30 AM CDT Rashida Pederson APRN, CNP LAB - MICRO GENERAL ORDER SUSHMA Performing Organization Address [facility] Phon e Number [facility] [address] [place] [address] CHLAMYDIA TRACHOMATIS PCR (02/15/2017 11:00 AM CDT) Component Value Ref Test Analysis Performed At [facility] gist Range Method Time Signature Specimen Endocervical [facility] Chlamydia Negative NEG MICRO RAPID Trachomatis PCR Negative for C. trachomatis rRNA by plumbing instructor mediated amplification. TESTING LAB A negative result [...] MICRO GENERAL ORDER SUSHMA Performing Organization Address City/[facility] Phon e Number MICRO RAPID TESTING LAB [address] [place] [address] [facility] [address] [place] [address] NEISSERIA GONORRHOEA PCR (02/15/2017 11:00 AM CDT) [facility] gist Method Time Signature Specimen Endocervical [facility] Gonorrhea Negative NEG MICRO RAPID PCR [...] CDT 11:30 AM CDT Rashida Pederson APRN RN OCCUPATIONAL LAB - MICRO GENERAL ORDER SUSHMA Performing Organization Address City/State/ZIP Code Phon e Number MICRO RAPID TESTING LAB [address] [place] [address] [facility] [address] [place] [address] documented in this encounter Visit Diagnoses Diagnosis Wellness examination - Primary Mirena IUD (intrauterine device) in plac e Presence of intrauterine contraceptive d evice Anxiety Anxiety state, unspecified documented in this encounter Additional Health Concerns Assessment Noted Time PHQ-9 Depression Total Score: 7 02/16/2017 7:15 AM CDT documented as of this encounter Care Teams Appellate Court Clerk Relationship Specialty Start Date End Date Rashida Pederson APRN PCP - General Nurse Practitioner 10/08/14 RN OCCUPATIONAL [address] [place] [address] Rashida Pederson APRN PCP - Assigned PCP 10/14/14 10/18/18 RN OCCUPATIONAL [address] [place] [address] Rashida Pederson APRN Assigned PCP 10/14/14 1 09/26/20 RN OCCUPATIONAL [address] [place] [address] documented as of this encounter
--- OUTSIDE RECORDS SUMMARY | 2022-06-17 09:11 | XMS_ITS | Encounter Summary ---
:1985 Author Organization [facility] Address [address] [place] [address] Care Team Providers Name Role Phone Rashida Pederson APRN VEHICLE PAINTER Primary Care Provider [phone] Rashida Pederson APRN VEHICLE PAINTER Unavailable [phone] Reason for Visit Reason Comments Test Encounter Details Date Type Department Care Team Description 08/24/2019 Office Visit - [facility] Karis Hale ble ; [facility] Rojas, [facility] examination or test, positive result; [place] [facility] [address] [facility] History of pulmonary embolis m; [address] BMI 40.0-44.9, adult (H) Drive [address] [place] [address] [facility] [address] [place], [place] [phone] [address] (Work) [phone] Social History Tobacco Use Types Packs/Day Years [...] Comments Blood Pressure 116/80 08/24/2019 2:00 PM PROPERTY CONTROLLER Pulse 68 08/24/2019 2:00 PM PROPERTY CONTROLLER Temperature - - Respiratory Rate 16 08/24/2019 2:00 PM PROPERTY CONTROLLER Oxygen Saturation - - Inhaled Oxygen Concentration - - Weight 111.6 kg (246 lb) 08/24/2019 2:00 PM PROPERTY CONTROLLER Height 167 cm (5' 5.75) 08/24/2019 2:00 PM PROPERTY CONTROLLER Body Mass Index 40.01 08/24/2019 2:00 PM PROPERTY CONTROLLER documented in this encounter Progress Notes Karis Hale, ABDOUL - 08/24/2019 2:00 PM CST Confirmation of Visit Subjective: Logan is a 34 y.o. y.o. female who presents to clinic today for a confirmation of visit. She is accompanied by her spouse Dillon. She is an existing [facility] patient but new to [facility] care. 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 [...] positive. 2. Discussed maternity care options at [facility]- philosophy, care models, and locations. 3. Early [...] First trimester screen + NT (11-13.6wks @ [facility]), [facility] (10-12wks), Verify (any time). Pt aware of options and will discuss further at IOB. 6. Pt encouraged to follow-up for IOB visit between 10 and 12 weeks. 7. Reviewed warning signs to call clinic if cramping /bleeding/spotting. 8. Reviewed plan of care with history PE including referral to COLLECTION SYSTEMS FOREMAN, will consult CNM group on appropriateness of care with CNMs, start lovenox at 8 weeks per recommendations and ordered to pt pharmacy. TT spent with patient, 45 mns, all of which was spent in counseling or coordination of care Karis Hale, LOLA, SWITCHBOX ASSEMBLER, ABDOUL ERTY CONTROLLER documented in this encounter Miscellaneous Notes Patient Instructions - HE - Karis Hale CNM - 08/24/2019 2:00 PM PROPERTY CONTROLLER Welcome to [facility] and thank you for choosing us for your maternity care provider! Congratulations! [facility] Nurse Midwives - Contact information: Appointment line and to get a hold of CNLemuel in clinic Wednesday-Wednesday 8 am - 5 pm: . Thereare some clinics with early start times (1st appointment 7:40 am) and others with evening hours (last appointment 6:20 pm). Most are typically open from 8 am to 5 pm. CNM chronometer assembler answering service: . Specify your hospital of choice and leave a brief message for CNM; chip crusher operator will then page CNM who is chronometer assembler at your specified hospital and you should [...] nipples and thighs may also change. ?? [place] stretch ivan may appear on your abdomen, [...] the risk of stillbirth or having a yyx-dfzxs-kuqlzi baby. If you smoke, quit now. ?? [...] If you haveother questions, talk with a reverberatory furnace supervisor. Will Working Harm My Baby? In most [...] Which Medications Are Safe? No prescription or pnls-zmd-libhvfn drug is safe for everyone all of the time. But sometimes medications are needed. Be sure your health care provider knows you are . Then use only the medications he or she advises you to take. Please refer to the below resources for further information and discuss concern and questions with your reverberatory furnace supervisor. Is It True That I Can Overheat [...] the load nearer. ?? Get a good lining scrubber. Test the weight of the load. ?? [...] legs can bend. GENETIC SCREENING OPTIONS AT [facility] ??? All testing is optional. We [...] Car Sachs, Sickle Cell, Hemophilia, Muscular Dystrophy, [place]???s disease and many others. ??? Cystic Fibrosis (CF) affects both males and females and people from all racial and ethnic groups. However, the disease is most common among Caucasians of Northern descent. CF is also common among Latinos and Micronesian Indians. The disease is less common among [...] A referral to a genetic counselor at [facility] or [facility] can be made by your care provider at any time. ??? This is also tested for in the [place] Metabolic Screen that your receives 24 hours afterbirth. DNA cell Testing: Jasper or Innatal (Non-Invasive Testing) ??? At 10 [...] protein). An ultrasound should be able to medicinal plant picker any spinal defect as well. ??? Follow-up [...] definitive diagnosis Referrals opportunities include: ??? [facility] expeditionary fighting vehicle crewman, [facility], [facility] o Offers nuchal translucency ultrasound; does not offer genetic counseling. ??? [facility] and [facility] ([facility]): o Approximately an hour long visit includes 30 min with genetic counselor who discusses all testing available and which ones might be beneficial to you based on age, personal and family history. o Blood will be drawn and the nuchal translucency ultrasound will be discussed and performed if desired. The Free DNA testing (Jasper/Telkoneti) can be drawn also. o Targeted or detailed Level II ultrasounds are also available with these perinatology groups. : a Healthy Option for You and Your Baby Consider for the healthiest way to feed your baby. Ask your reverberatory furnace supervisor or physician for more information. The choice of how you will feed your baby is important. Before your baby???s , you???ll want tolearn about the benefits of . [facility] have been designated Baby Friendly; [...] your baby are staying with us at [facility], we will support whatever feeding choice you make for your baby. Some important considerations: ??? The Micronesian Academy of Pediatrics, the World Health Organization, [...] that includes preparation. and classesare offered by [facility]. Visit Xcerion for class information. ??? After your baby???s [...] book or find it online at http://www.[facility]altheast.org/images/s tories/maternity/PhhrjpTkfb-Hznptahx-Ayk-Right.pdf or http://www.[facility].org/images/stories/flipbo oks/tygadwgubb-rfcmahrw-bkn-right/dhddolhwrx-qanxnqqz-eho-right.html#p=8 You can sign up for a weekly parenting e-mail that gives support, tips and advice from health child care that starts with and continues through the toddler years. To register, go to www.[facility]the[facility].org/baby at any time during your . : OUTPATIENT RESOURCES Baby Friendly Hospitals and clinics: https://www.[facility].org/maternity/wizcj-teqtkksxe-fnxt/baby-friendly.html -Schedule an appointment with a [facility] CNLemuel who is also a Terrazzo Supervisor by calling [phone] -Schedule an appointment with a [facility] who is also a Terrazzo Supervisor by calling [phone]. We see women for visits at [place], [place] and [facility]. -Baby Caf?? and interested in ? Need [...] the Baby Caf?? closest to you! Hmong, Divehi, and Sao Tomean which is may be available at some sites. [facility] [address] [place] [address] Wednesday: 10am-12pm [address] [address] Wednesday 4-6pm [address] [address] Wednesday 10am-12:30pm [facility] [address] [place] [address] Wednesdays: 4-6pm -Attend a baby weigh in at [facility]. consultants are available to answer questions Katja: Tuesdays 1:00 - 2:00 [facility]: Mondays 1:00 - 2:00 www.[employer].InfoGPS Networks, LLC -Attend one of the New Mama groups at [facility] in [facility]3]. [facility] also offers one-on-one in home and in office consults. www.[facility].[employer], [employer] -Attend a LeLeche League meeting. Multiple groups in several locations throughout the [facility]. The meetings are no-cost and always informative education session through [facility] [place] Www.lllojamesas.org/ Childbirth and Parenting Education: [facility] center: http://Cardeas [employer]arma.[employer]/ (462) 051-BABY Herminia: (education, yoga & wellness) www.Adchemy.[employer] LLC [facility]: www.Cancer Genetics.[employer] Childbirth collective: (Parent topic nights) www.childbirthcollective.org/ Hypnobabies: www.hypnobabiestbigtincan.com/ Hypnobirthing: Http://hypnobirthing.com/ Book Recommendations: Susan Exeter's Birthing From Within--first few chapters include a [...] deciding to wean and deciding not to. Micronesian College of Nurse-Midwives (ACNM) http://www.reverberatory furnace supervisor.org/; look at the informational handouts at http://www.reverberatory furnace supervisor.org/Rltbv-Oglt-Gigac www.mymidwife.org Mother to Baby (Medication and Herbal guidance in ): http://www.mothertobaby.org Toll-Free Hotline: 375.329.2282 LactMed (Medication use while ): http://toxnet.nlm.nih.gov/newtoxnet/lactmed.htm Women's Health.gov: http://www.womenshealth.gov/a-z-topics/index.html Micronesian association - http://americanpregnancy.org Centering (group care option): http://centeringhealthcare.org Information about doulas: Childbirth collective: http://www.childbirthcollective.org/ Doulas of [place] (CARRI): www.carri.org [facility] poured wall foreman project: http://twincitiesdoulaproject.com/ Licensed Appraiser and Family Education (ECFE): ECFE offers parents hands-on learning experiences that will nourish a lifetime of teachable moments. http://ecfe.info/ecfe-home/ October www.KSKT.InfoGPS [employer], [employer] FDA - Nutrition www.mypyramid.gov Under For Consumers, click on and women. Centers for Disease Control and Prevention (CDC) - Vaccines : http://www.cdc.gov/vaccines/ When researching information on the web, question the validity of websites. The domains .gov, .[employer] and.org tend to be more reliable information. [...] pills, chews). Take with dairy Vitamin D3 0833-3116 IU geltab daily. Take with fattiest meal. Look for fortified foods also (Dairy,Juice) 2-3 (4) oz servings of fish, seafood, nuts (walnuts & almonds), oils, avocado per week - if not,take Cucumber 3 Fatty acids: DHA & SAV 5472-3889 mg per day. Other names: cod liver oil, fish oil. Take with fattiest meal. Some prenatals have DHA, but typically not a sufficient dose. Fish: Do not eat shark, swordfish, katalina mackerel, or tilefish when you are or . They contain high levels of mercury. Limit white (albacore) tuna to no more than 6 ounces per week. Http://www.fda.gov/downloads/ForConsumers/ConsumerUpdates/FVS241648.pdf Touring the Maternity Care Center To schedule a tour at either [facility] or [facility], please do so online using the following links: [facility] - https://www.Price Interactivecenter.com/registerlist.asp?s=6&m=303&vs=5&p=2& amp;oruwr=304&ps=1&group=37&it=1&bor=090 [facility] - https://www.Lung Therapeuticsistrationcenter.com/registerlist.asp?s=6&m=303&vs=5&p=2&a mp;pwdsa=158&ps=1&group=38&it=1&lgc=398 You are invited to Meet the [facility] Nurse-Midwives A way to tour the hospital Labor and Delivery unit and meet the midwives that attend births since you may not have the opportunity to meet them during your care. Some sessions are informal meet and greet type social hours, others address a specific concern or topic. Thursday, September 27, 2018 7-8pm [facility] Friday, November 30, 2018 7-8pm [facility], Auditorium A March 7-8pm [place] Friday June 28, 2019 7-[address] [facility], Auditorum A Please call [phone] to register ERTY CONTROLLER documented in this encounter Plan of Treatment Not on filedocumented as of this encounter Procedures Procedure Name Priority Date/Time Associated Comments Diagnosis HCG QUALITATIVE URINE Routine 08/24/2019 2:04 PM Results for this PROPERTY CONTROLLER procedure are i n the results section. documented in this encounter Results (ABNORMAL) HCG qualitative urine (08/24/2019 2:04 PM PROPERTY CONTROLLER) [facility] Method Time Signature hCG Urine Positive (A) Negative 08/24/2019 [facility] Qualitative 2:06 PM PROPERTY CONTROLLER [facility] Specimen Anatomical Collection Method Collection Time Receive d Time (Source) Location / / Volume Laterality Urine specimen Non-blood 08/24/2019 2:04 PM 020 2:04 (specimen) Collection / PROPERTY CONTROLLER PM PROPERTY CONTROLLER Unknown Narrative [facility] CYBER INCIDENT ANALYST LABORATORY - 08/24/2019 2:0 6 PM PROPERTY CONTROLLER This test is for screening purposes. Res ults should be interpreted along with the clinical picture. Confirmation testing i s available if warranted by ordering Test 143, Beta HCG, Quantitative. Karis Hale CNM LAB - URINE ORDERABLES Performing Organization Address City/State/ZIP Code Phon e Number [facility] CYBER INCIDENT ANALYST LABORATORY [facility] - [place], [place] 55[address] Curriculum Assistant Principal Lab [address] [place] [address] [facility] CYBER INCIDENT ANALYST LABORATORY [address] [place] [id number] [phone] [facility] documented in this encounter Visit Diagnoses Diagnosis Possible examination or test, unconfirmed examination or test, positive result History of pulmonary embolism Personal history of pulmonary embolism BMI 40.0-44.9, adult (H) Body Mass Index 40.0-44.9, adult documented in this encounter Additional Health Concerns Assessment Noted Time PHQ-9 Depression Total Score: 7 07/27/2018 7:15 AM PROPERTY CONTROLLER documented as of this encounter Care Teams Hide Sorter Relationship Specialty Start Date End Date Rashida Pederson APRN VEHICLE PAINTER PCP - General Nurse Practitioner 10/08/14 [address] [place] [address] Rashida Pederson APRN VEHICLE PAINTER Assigned PCP 10/14/14 07/26/21 [address] [place] [address] documented as of this encounter
--- OUTSIDE RECORDS SUMMARY | 2022-06-17 09:11 | XMS_ITS | Encounter Summary ---
:1985 Author Organization [facility] Address [address] [place] [address] Care Team Providers Name Role Phone Rashida Pederson APRN, CNP Primary Care Provider [phone] Rashida Pederson APRN PV DESIGN ENGINEER Unavailable [phone] BgRashida cornejo APRN PV DESIGN ENGINEER Unavailable [phone] Reason for Visit Reason Onset Date Comments Panel Management 01/04/2018 depression Encounter Details Date Type Department Care Team Description 01/04/2018 Telephone [facility] Rashida Pederson [facility] ZIYAD Benitez CNP (depression) [address] [place] [id number] [phone] Social History Tobacco Use Types Packs/Day Years [...] off of Lexapro. She also did not turkey picker the Ativan. Pt is exercising more [...] to do PHQ9. Type of outreach: Sent Mobilitus message. Questions for provider review: None Yessenia Mcgarry CMA Chart routed to Care Team . documented in this encounter Plan of Treatment Not on filedocumented as of this encounter Visit Diagnoses Not on filedocumented in this encounter Additional Health Concerns Assessment Noted Time PHQ-9 Depression Total Score: 3 02/01/2018 7:12 AM CDT documented as of this encounter Care Teams Sole Cementer Relationship Specialty Start Date End Date Rashida Pederson APRN PCP - General Nurse Practitioner 10/08/14 [facility] [address] [place] [address] Rashida Pederson APRN PCP - Assigned PCP 10/14/14 10/18/18 PV DESIGN ENGINEER [address] [place], [place] [id number] Rashida Pederson APRN Assigned PCP 10/14/14 1 09/26/20 PV DESIGN ENGINEER [address] [place], [place] [id number] documented as of this encounter
--- OUTSIDE RECORDS SUMMARY | 2022-06-17 09:11 | XMS_ITS | Encounter Summary ---
:1985 Author Organization [facility] Address [address] [place] [address] Care Team Providers Name Role Phone Rashida Pederson APRN, CNP Primary Care Provider [phone] Rashida Pederson APRN RADIO REPAIRMAN Unavailable [phone] Encounter Details Date Type Department Care Team Description 03/26/2019 E-Visit [facility] Rashida Pederson (Primary Dx) [place] ZIYAD Benitez RADIO REPAIRMAN [address] [address] [phone] (Wo rk) Social History Tobacco Use Types [...] Depression Total Score: 7 07/27/2018 7:15 AM BUSINESS SPECIALIST documented as of this encounter Care Teams Fruit Tester Relationship Specialty Start Date End Date Bg, Rashida Eli, DINING ROOM MAID RADIO REPAIRMAN PCP - General Nurse Practitioner 10/08/14 [address] [place], [place] [phone] Rashida Pederson APRN RADIO REPAIRMAN Assigned PCP 10/14/14 07/26/21 [address] [place], [place] [phone] documented as of this encounter
--- OUTSIDE RECORDS SUMMARY | 2022-06-17 09:11 | XMS_ITS | Encounter Summary ---
:1985 Author Organization [facility] Address [address] [place] [address] Care Team Providers Name Role Phone Rashida Pederson APRN POLYMER SCIENTIST Primary Care Provider [phone] Rashida Pederson APRN POLYMER SCIENTIST Unavailable [phone] Encounter Details Date Type Department Care Team Description 11/30/2019 [facility] Neyda Phillips [address] [address] [place], [place] [phone] (Wo rk) [address] [phone] Social History Tobacco Use Types Packs/Day Years [...] Depression Total Score: 7 07/27/2018 7:15 AM SECTION WEAVER documented as of this encounter Care Teams Veterinary Poultry Inspector Relationship Specialty Start Date End Date Rashida Pederson APRN POLYMER SCIENTIST PCP - General Nurse Practitioner 10/08/14 [address] [place], [place] [id number] Rashida Pederson APRN POLYMER SCIENTIST Assigned PCP 10/14/14 07/26/21 [address] [place], [place] [id number] documented as of this encounter
--- OUTSIDE RECORDS SUMMARY | 2022-06-17 09:11 | XMS_ITS | Encounter Summary ---
:1985 [facility] Address [address] [place] [address] Home Phone Mobile Phone Email Address Email Address Preferred Language Setswana Marital Status Single Mu-Ism Affiliation Unknown Race White Ethnic Group Unknown Author Organization [facility] Address [address] [place] [address] Care Team Providers Name Role Phone Rashida Pederson APRN SENIOR ACCOUNT DIRECTOR Primary Care Provider [phone] Rashida Pederson APRN SENIOR ACCOUNT DIRECTOR Unavailable [phone] BgRashida cornejo APRN SENIOR ACCOUNT DIRECTOR Unavailable [phone] Reason for Visit Reason Comments Medication Refill Encounter Details Date Type Department Care Team Description 09/30/2017 Refill [facility] Tiffanie Irvin, Medication Refill [id number] [place] [phone] [place], [place] [phone] (Wo rk) Social History Tobacco Use Types [...] RN, BSN Message handled by Nurse Triage. 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 (H) Anxiety Anxiety state, unspecified documented in this encounter Additional Health Concerns Assessment Noted Time PHQ-9 Depression Total Score: 11 09/11/2017 7:41 AM CS T documented as of this encounter Care Teams Spinning Bath Patroller Relationship Specialty Start Date End Date Rashida Pederson APRN PCP - General Nurse Practitioner 10/08/14 SENIOR ACCOUNT DIRECTOR [address] [place] [address] Rashida Pederson APRN PCP - Assigned PCP 10/14/14 10/18/18 SENIOR ACCOUNT DIRECTOR [address] [place] [address] Rashida Pederson APRN Assigned PCP 10/14/14 1 09/26/20 SENIOR ACCOUNT DIRECTOR [address] [place] [address] documented as of this encounter
--- OUTSIDE RECORDS SUMMARY | 2022-06-17 09:11 | XMS_ITS | Encounter Summary ---
:1985 Author Organization [place] Address [address] [place] [address] Care Team Providers Name Role Phone Rashida Pederson APRN STUDENT TEACHING COORDINATOR Primary Care Provider [phone] Rashida Pederson APRN STUDENT TEACHING COORDINATOR Unavailable [phone] Reason for Visit Reason Comments Care Encounter Details Date Type Department Care Team Description 12/19/2019 Office Visit - [facility] High Alan-ris k , second trimester; [facility], CNM BMI 39.0-39.9,adult; [place] [id number] At high risk for venous thro mboembolism (VTE); [address] [facility] Rh negative, antepartum [address] [facility] [address] [place] [phone] [place], [place] (Work) [address] Social History Tobacco Use [...] would you like to be contacted at? 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 - Objective: See [...] Phillips CNM - 12/19/2019 11:40 AM CDT [facility] Nurse Midwives - Contact information: Appointment line and to get a hold of CNM in clinic Wednesday-Wednesday 8 am - 5 pm: . Thereare some clinics with early start times (1st appointment 7:40 am) and others with evening hours (last appointment 6:20 pm). Most are typically open from 8 am to 5 pm. CNM control room agent answering service: . Specify your hospital of choice and leave a brief message for CNM; sand system operator will then page CNM who is control room agent at your specified hospital and you should [...] F. You are invited to Meet the [facility] Nurse-Midwives A way to tour the hospital Labor and Delivery unit and meet the midwives that attend births since you may not have the opportunity to meet them during your care. Some sessions are informal meet and greet type social hours, others address a specific concern or topic. Thursday, September 27, 2018 7-8pm [facility] Friday, November 30, 2018 7-8pm [facility] Auditorium A March 7-8pm [place] Friday June 28, 2019 7-[address] [facility] Aud[facility] A Please call [phone] to register UNDERSTANDING LABOR Going into labor before your 37th week of is called labor. labor can causeyour baby to be born too soon. This can lead to a number of health problems that may affect your baby. From 28-35 weeks, Patients are advised to be [facility] since they have a [facility] Unit [...] second or third trimester Evaluating Labor Your sap bi architect will try to find out whether you???re [...] cervix is still thick and closed, the sap bi architect may ask you to do the following at home: ?? Drink plenty of water. ?? Do fewer activities. ?? Rest in bed on your side. ?? Avoid intercourse and nipple stimulation. When to Call Your Warp Scouring Vat Tender ?? Five or more contractions per hour [...] too early. Testing for Gestational Diabetes in [facility] Nurse-Midwives are committed to providing safe care during your . We follow the recommendations of the [place] Diabetes Association and the [place] College of Obstetricians and Gynecologists to test all women for gestational diabetes. Testing early in (if you have risk factors) and testing all women between 26-28 weeks follows local and national guidelines forcare during . Clients who feel that they cannot consent to such testing, may choose to transfer their care to our crm consultant obstetricians. What is the test? Eat [...] is confirmed and a referral to a primary special educator will be made. If the level [...] will be made to visit with the primary special educator. The educator will help you to [...] years after their . Additional Information The [place] College of Nurse Midwives (ACNM) provides an information sheet describing diabetes screening in : http://www.womenWineDemonocs.com/mj/pdf/Second_Trimester/Gestational_Diabetes.pdf You can visit the [place] Diabetes Association website http://www.diabetes.org for additional information and to purchase their book, ???Gestational Diabetes: What to Expect?? . A brochure from the [place] College of Obstetrics and Gynecology is available at: http://www.acog.org/~/media/For%20Patients/ytx226.pdf?dmc=1&uk=96281940Z76340443 15 Testing for gestational diabetes is a [...] moving around more now. You may notice [place]en contractions now, which are painless and prepare [...] iron. Discuss your work situation with your sap bi architect or physician as needed. If you stand for long periods of time, you may need to make changes and take breaks. [place] for childbirth and parenting classes, including an CPR class. classes are recommended too. Childbirth and Parenting Education: [place] parenting center: http://64 Pixels/ (534) 341-EAWO [place]: (education, yoga & wellness) www.Effdon.Blinkiverse Enlightened Mama: www.coRankightenedVisualase.Blinkiverse Childbirth collective: (Parent topic nights) www.childbirthcollective.org/ Hypnobabies: www.hypnobabiestLuckyPennie.Blinkiverse/ Hypnobirthing: Http://hypnobirthing.com/ Book Recommendations: Susan Milla's Birthing [...] deciding to wean and deciding not to. [place] College of Nurse-Midwives (ACNM) http://www.sap bi architect.org/; look at the informational handouts at http://www.sap bi architect.org/Jzabu-Nbga-Iycij www.mymidwife.org Mother to Baby (Medication and Herbal guidance in ): http://www.mothertobaby.org Toll-Free Hotline: 815.507.6401 LactMed (Medication use while ): http://toxnet.nlm.nih.gov/newtoxnet/lactmed.htm Women's Health.gov: http://www.womenshealth.gov/a-z-topics/index.html [place] association - http://americanpregnancy.org Centering (group care option): http://centeringhealthcare.org Information about doulas: Childbirth collective: http://www.childbirthcollective.org/ Doulas of [place] (CARRI): www.carri.org Dr. [facility] plant general manager project: http://cloudControlcitiesdoulaproject.com/ Frame Feeder and Family Education (ECFE): ECFE offers parents hands-on learning experiences that will nourish a lifetime of teachable moments. http://ecfe.info/ecfe-home/ October www.HouseTab.Blinkiverse FDA - Nutrition www.mypyramid.gov Under For Consumers, [...] book or find it online at http://www.healtheast.org/images/s tories/maternity/FlgjbzUbwl-Nudikkwj-Xzc-Right.pdf or http://www.healtheast.org/images/stories/flipbo oks/kvdjucibfp-cddvxrlg-rab-right/ihvtghvjxn-yufnhazl-aco-right.html#p=8 You can sign up for a weekly parenting e-mail that gives support, tips and advice from health senior caregiver that starts with and continues through the toddler years. To register, go to www.healtheast.org/baby at any time during your . Baby Feeding in the Hospital: Information, Support and Resources As you prepare for the of your child, you will want to consider options for feeding your baby including breast-feeding and/or baby formula. The [place] Academy of Pediatrics recommends exclusivebreast-feeding for the [...] baby? Your baby will usually be placed joht-tf-hdys immediately following . The skin to skin [...] normal. There are numerous resources available at [facility], Clinics and beyond. ??? If your goal [...] or freezer for later use. Touring the [facility] To schedule a tour at either [place] or [facility], please do so online using the following links: [facility] - https://www.Ravti.Blinkiverse/registerlist.asp?s=6&m=303&vs=5&p=2& amp;lohxd=251&ps=1&group=37&it=1&ctq=022 [facility] - https://www.Ravti.com/registerlist.asp?s=6&m=303&vs=5&p=2&a mp;gqwdd=558&ps=1&group=38&it=1&uou=763 Hospital and Clinic Resources: -Schedule an appointment with a [facility] CNM who is also a Geodetic Surveyor by calling [phone] -Schedule a clinic appointment with a [facility] CNM with dedicated clinic hours for assistance by calling [phone]. clinic visits are at [facility] on Mondays, [facility] on Tuesdays and [facility] on . Baby Caf?? and interested [...] for the Baby Caf?? closest to you! [facility] [address] [place] [address] Wednesday: 10am-12pm [facility] [address] [place] [address] Wednesday 4-6pm [facility] [address] [place] [address] Wednesday 10am-12:30pm ong [place] [employer] [address] [place] [address] Wednesdays: 4-6pm Hmong, Azerbaijani, and Bhutanese which is may be available at some sites. For more information, please contact: Beatris Borges@ia.[facility]. or [phone] -Attend a baby weigh in at [facility]. consultants are available to answer questions Katja: Tuesdays 1:00 - 2:00 [facility]: Mondays 1:00 - 2:00 www.[facility] methodist hospitalShopperception.Blinkiverse -Attend one of the New Mama groups at [facility] in [facility] also offers one-on-one in home and in office consults. www.[facility] -Attend a LeLeche League meeting. Multiple groups in several locations throughout the [facility]. The meetings are no-cost and always informative education session through Internatal [place] Www.lllofmndas.org/ Medication use while : http://toxnet.nlm.nih.gov/newtoxnet/lactmed.htm Online Resources: ??? healtheast.org/baby sign up for free online weekly e-mail ??? healtheast.org/maternity ??? Breastfeedingmadesimple.com ??? Llli.org ([place]) ??? Normalfed.com ??? Womenshealth.gov/ ??? ScoutforcepJielan Information Company.Blinkiverse Breast-feeding Supplies & Pumps: Talk to your insurance provider or WIC (Women, Infants and Children) to learn more about options available to you. Recent health insurance changes may include additional coverage for supplies and pumps. Public Health: Women, Infants and Children Nutrition program (WIC): provides breast-feeding support and education in addition to formal feeding moms. 821-GZM-5410 or http://www.health.[facility].us/divs/fh/wic Family Health Home Visiting: [facility] Nurse home visits are available. Talk to your provider tosee if you qualify. Most [facility] private hospital have a program available. Additional Resources: [place] is an international, nonprofit, nonsectarian organization offering information, education, and support to mothers who want to breast-feed their babies. Local groups offer phone help andmonthly meetings. Visit Fromography.CapableBits or Colovore.CapableBits and us the ???Find local support?? drop down menu or click on the ???Resources?? tab. [place] Resources: 8-501-078-BABY (8892) toll free National Help Line trained peer counselors can help answer common breast-feeding questions by phone. Wednesday-Wednesday: Czech/Azerbaijani [phone]- [phone] toll free, (TTY) [facility] Connection: 538-217-FDLE (6020) Virtual Support: During this time of isolation, families need even more community! Here are some area organizations offering virtual support groups for : ??? Latch Cafe Support Group, Tuesdays at 10:30 am Run by LIZ Rubin of [employer] Baby [employer] Go to The Baby [employer]pe[employer] Facebook page and click on events for link https://www.facebook.com/events/235606906045991/ ??? [facility] Milk Hour, at 2:30 pm Run by LIZ Mosley Go to [facility] FB page and send message to get link https://www.Adconion Media Group.com/healthfoundations/ ??? [facility] holding virtual meetings the first Wednesday of each month, 8-9 pm, and the Third Wednesday, 10 - [address]. [address] [facility] and [place] FB page; message to get link https://www.Adconion Media Group.Blinkiverse/LLLofGKasia/?hc_location=[facility] ??? [employer] offers a Lounge every Wednesday 12pm - 1pm, run by Yessenia Fernandes [facility] Leader Sign up via link at VoulezVousDiner/cbe- https://www.VoulezVousDiner/cbe- ??? [facility] is offering virtual support groups every Wednesday, 10:30 am - 12 pm, run bynurse HILL Https://www.Adconion Media Group.Blinkiverse/events/873997686533982/ Classes: ??? [employer] is offering virtual and care classes: https://wwwGeneral Atomics/education-workshops ??? BirthEd childbirth and education offering virtual classes https://www.GillBusmnRingio/workshops documented in this encounter Plan of Treatment [...] Depression Total Score: 7 07/27/2018 7:15 AM AIRCRAFT STRUCTURAL FITTER documented as of this encounter Care Teams Pharmacy Informaticist Relationship Specialty Start Date End Date Rashida Pederson APRN STUDENT TEACHING COORDINATOR PCP - General Nurse Practitioner 10/08/14 [address] [place], [place] [id number] Rashida Pederson APRN STUDENT TEACHING COORDINATOR Assigned PCP 10/14/14 07/26/21 [address] [place], [place] [id number] documented as of this encounter
--- OUTSIDE RECORDS SUMMARY | 2022-06-17 09:12 | XMS_ITS | Encounter Summary ---
:1985 Author Organization [place] Address [address] [place] [address] Care Team Providers Name Role Phone Rashida Pederson APRN DIP TUBE ASSEMBLER MACHINE Primary Care Provider [phone] Rashida Pederson APRN DIP TUBE ASSEMBLER MACHINE Unavailable [phone] BgRashida cornejo APRN DIP TUBE ASSEMBLER MACHINE Unavailable [phone] Reason for Visit Reason Comments Medication Question Encounter Details Date Type Department Care Team Description 07/22/2016 [facility] Concha Balderrama , [id number] Medication [facility] Provider, Historical Question [address] [place] [address] Social History Tobacco Use Types [...] documented as of this encounter Care Teams Citrus Picker Relationship Specialty Start Date End Date Rashida Pederson APRN PCP - General Nurse Practitioner 10/08/14 DIP TUBE ASSEMBLER MACHINE [address] [place] [address] Rashida Pederson APRN PCP - Assigned PCP 10/14/14 10/18/18 DIP TUBE ASSEMBLER MACHINE [address] [place] [address] Rashida Pederson APRN Assigned PCP 10/14/14 1 09/26/20 DIP TUBE ASSEMBLER MACHINE [address] [place] [address] documented as of this encounter
--- OUTSIDE RECORDS SUMMARY | 2022-06-17 09:12 | XMS_ITS | Encounter Summary ---
:1985 Author Organization [place] Address [address] [place] [address] Care Team Providers Name Role Phone Rashida Pederson APRN TIME SIGNAL WIRER Primary Care Provider [phone] BgRashida cornejo APRN TIME SIGNAL WIRER Unavailable [phone] Bg, Rashida Benitez APRN TIME SIGNAL WIRER Unavailable [phone] Reason for Visit Reason Comments URI symptoms x 5 days. Chest con gestion, headache, productive cough with brown-yellow sputum. Encounter Details Date Type Department Care Team Description 07/21/2016 Office Visit - [facility] [place], Acute UR I; [facility] Catalina Butts PA-C History of pulmonary embolism [address] [place] [address] [phone] Social History Tobacco Use Types Packs/Day Years [...] (243 lb 8 oz) 07/21/2016 2:00 PM CONTACT CENTER REPRESENTATIVE Height - - Body Mass Index 41.15 [...] of urine with coughing. She has taken wodf-fyj-hneujel cough remedies and they have onlyhelped minimally. [...] PE occurred around age 20, [facility], workup negative. Patient Active Problem List [...] recognition software, which may contain typographical errors. ACT CENTER REPRESENTATIVE documented in this encounter Plan of Treatment Not on filedocumented as of this encounter Visit Diagnoses Diagnosis Acute URI Acute upper respiratory infections of un specified site History of pulmonary embolism Personal history of pulmonary embolism documented in this encounter Additional Health Concerns Assessment Noted Time PHQ-9 Depression Total Score: 5 03/28/2016 7:13 AM CDT documented as of this encounter Care Teams Organizational Development Consultant Relationship Specialty Start Date End Date Rashida Pederson APRN PCP - General Nurse Practitioner 10/08/14 TIME SIGNAL WIRER [address] [place] [address] Rashida Pederson APRN PCP - Assigned PCP 10/14/14 10/18/18 TIME SIGNAL WIRER [address] [place] [address] Rashida Pederson APRN Assigned PCP 10/14/14 1 09/26/20 TIME SIGNAL WIRER [address] [place] [address] documented as of this encounter
--- OUTSIDE RECORDS SUMMARY | 2022-06-17 09:12 | XMS_ITS | Encounter Summary ---
:1985 Author Organization [place] Address [address] [place] [address] Care Team Providers Name Role Phone Rashida Pederson APRN, CNP Primary Care Provider [phone] Rashida Pederson APRN MEDIA CONSULTANT OUTSIDE SALES Unavailable [phone] Bg, Rashida Benitez APRN MEDIA CONSULTANT OUTSIDE SALES Unavailable [phone] Reason for Visit Reason Onset Date Comments Panel Management 03/09/2016 pap and depression Encounter Details Date Type Department Care Team Description 03/09/2016 Telephone [facility] Rashida Pederson ([facility] [place] ZIYAD Benitez CNP and depression) [address] [place] [address] [phone] Social History Tobacco Use Types Packs/Day Years [...] to do PHQ9. Type of outreach: Sent [employer] message. Questions for provider review: None Yessenia Mcgarry CMA Chart routed to Care Team . documented in this encounter Plan of Treatment Not on filedocumented as of this encounter Visit Diagnoses Not on filedocumented in this encounter Additional Health Concerns Assessment Noted Time PHQ-9 Depression Total Score: 10 09/18/2015 9:10 AM CS T documented as of this encounter Care Teams Neonatal Specialist Relationship Specialty Start Date End Date Rashida Pederson APRN PCP - General Nurse Practitioner 10/08/14 MEDIA CONSULTANT OUTSIDE SALES [address] [place] [address] Rashida Pederson APRN PCP - Assigned PCP 10/14/14 10/18/18 MEDIA CONSULTANT OUTSIDE SALES [address] [place] [address] Rashida Pederson APRN Assigned PCP 10/14/14 1 09/26/20 MEDIA CONSULTANT OUTSIDE SALES [address] [place] [address] documented as of this encounter
--- OUTSIDE RECORDS SUMMARY | 2022-06-17 09:12 | XMS_ITS | Encounter Summary ---
:1985 [facility] Address [address] [place] [address] Home Phone Mobile Phone Email Address Email Address Preferred Language Vietnamese Marital Status Single Methodist Affiliation Unknown Race White Ethnic Group Unknown Author Organization [place] Address [address] [place] [address] Care Team Providers Name Role Phone Rashida Pederson APRN HAND FILER BALANCE WHEEL Primary Care Provider [phone] Rashida Pederson APRN HAND FILER BALANCE WHEEL Unavailable [phone] BgRashida cornejo APRN HAND FILER BALANCE WHEEL Unavailable Reason for Visit Reason Comments URI Cough Encounter Details Date Type Department Care Team Description 07/25/2016 Emergency [facility] Caio Guzman Bronchitis ; [facility] DO Palmer Reactive airway disease Emergency Room [address] [address] [place] [address] [facility] [phone] Social History Tobacco Use Types Packs/Day Years [...] 108.9 kg (240 lb) 07/25/2016 1:02 AM DIRECTOR OF CAMPUS RECREATION Height 167.6 cm (5' 6) 07/25/2016 1:02 AM DIRECTOR OF CAMPUS RECREATION Body Mass Index 38.74 07/25/2016 1:02 AM DIRECTOR OF CAMPUS RECREATION documented in this encounter Medications at Time [...] Cobos's -- Treatment Tolerance -- Tolerated well CTOR OF CAMPUS RECREATION documented in this encounter ED Notes Caio [...] since. Last week, she did present to [facility] where she was diagnosed with URI. She [...] behalf by Casey Lawton, a trained medical underwriter. 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 Smoking status: [...] the scribe. Caio Guzman DO 07/25/16 0259 CTOR OF CAMPUS RECREATION documented in this encounter Plan of Treatment Not on filedocumented as of this encounter Visit Diagnoses Diagnosis Bronchitis Bronchitis, not specified as acute or ch ronic Reactive airway disease Unspecified asthma documented in this encounter Additional Health Concerns Assessment Noted Time PHQ-9 Depression Total Score: 5 03/28/2016 7:13 AM CDT documented as of this encounter Care Teams Tai Chi Instructor Relationship Specialty Start Date End Date Rashida Pederson APRN PCP - General Nurse Practitioner 10/08/14 HAND FILER BALANCE WHEEL [address] [place] [address] Rashida Pederson APRN PCP - Assigned PCP 10/14/14 3 HAND FILER BALANCE WHEEL [address] [place], [place] [id number] Rashida Pederson APRN Assigned PCP 10/14/14 1 09/26/20 HAND FILER BALANCE WHEEL [address] [place] [address] documented as of this encounter
--- OUTSIDE RECORDS SUMMARY | 2022-06-17 09:12 | XMS_ITS | Encounter Summary ---
:1985 Author Organization [place] Address [address] [place] [address] Care Team Providers Name Role Phone Rashida Pederson APRN NURSE'S COMPANION Primary Care Provider [phone] Rashida Pederson APRN NURSE'S COMPANION Unavailable [phone] BgRashida cornejo APRN NURSE'S COMPANION Unavailable [phone] Encounter Details Date Type Department Care Team Description 05/18/2016 [facility] Only [facility] eening for tuberculosis [address] [address] Social History Tobacco Use Types [...] Tuberculosis by Quantiferon (05/18/2016 1:20 PM CDT) [facility] gist Method Time Signature M Tuberculosis Negative NEG [facility] Result [facility] M Tuberculosis 0.00 IU/mL [facility] Antigen Value [facility] Comment: This is a qualitative test. ??The [...] (specimen) CDT PM CDT Rashida Pederson APRN NURSE'S COMPANION LAB - BLOOD ORDERABLES Performing Organization Address City/State/ZIP Code Phon e Number [facility] [address] [place] [address] [facility] documented in this encounter Visit Diagnoses Diagnosis Screening for tuberculosis Screening examination for pulmonary tube rculosis documented in this encounter Additional Health Concerns Assessment Noted Time PHQ-9 Depression Total Score: 5 03/28/2016 7:13 AM CDT documented as of this encounter Care Teams Professional Athlete Relationship Specialty Start Date End Date Rashida Pederson APRN PCP - General Nurse Practitioner 10/08/14 NURSE'S COMPANION [address] [place] [address] Rashida Pederson APRN PCP - Assigned PCP 10/14/14 10/18/18 [facility] [address] [place] [address] Rashida Pederson APRN Assigned PCP 10/14/14 1 09/26/20 NUR[facility] COMPAN[facility] [address] [place] [address] documented as of this encounter
--- OUTSIDE RECORDS SUMMARY | 2022-06-17 09:12 | XMS_ITS | Encounter Summary ---
:1985 Author Organization [place] Address [address] [place] [address] Care Team Providers Name Role Phone Rashida Pederson APRN HUMAN RESOURCES DESIGNATE Primary Care Provider [phone] BgRashida cornejo APRN HUMAN RESOURCES DESIGNATE Unavailable [phone] Bg, Rashida Benitez APRN HUMAN RESOURCES DESIGNATE Unavailable [phone] Reason for Visit Reason Comments URI Encounter Details Date Type Department Care Team Description 07/31/2016 Office Visit [facility] Hailey Kearney, Acsun e bronchitis due [facility] [place] PA-C to other specified [address] [place] [id number] [place] [address] organisms (Primary [place], [place], [place] Dx) [address] [phone] (Wo rk) Social History Tobacco Use Types [...] Comments Blood Pressure 128/87 07/31/2016 1:25 PM WALLPAPER PRINTER Pulse 77 07/31/2016 1:25 PM WALLPAPER PRINTER Temperature 36.8 ??C (98.3 ??F) 07/31/2016 1:25 PM WALLPAPER PRINTER Respiratory Rate 16 07/31/2016 1:25 PM WALLPAPER PRINTER Oxygen Saturation - - Inhaled Oxygen Concentration - - Weight 109.3 kg (241 lb) 07/31/2016 1:25 PM WALLPAPER PRINTER Height - - Body Mass Index 38.9 07/25/2016 1:02 AM WALLPAPER PRINTER documented in this encounter Progress Notes Hailey [...] Inhaler; Refill: 1 Hailey Kearney PA-C, [facility] PAPER PRINTER documented in this encounter Nursing Notes Ebony [...] kg).. BP completed using cuff size large-RA PAPER PRINTER documented in this encounter Plan of Treatment Not on filedocumented as of this encounter Visit Diagnoses Diagnosis Acute bronchitis due to other specified organisms - Primary documented in this encounter Additional Health Concerns Assessment Noted Time PHQ-9 Depression Total Score: 5 03/28/2016 7:13 AM CDT documented as of this encounter Care Teams Manufacturing Quality Inspector Relationship Specialty Start Date End Date Rashida Pederson APRN PCP - General Nurse Practitioner 10/08/14 HUMAN RESOURCES DESIGNATE [address] [place] [address] Rashida Pederson APRN PCP - Assigned PCP 10/14/14 10/18/18 HUMAN RESOURCES DESIGNATE [address] [place] [address] Rashida Pederson APRN Assigned PCP 10/14/14 1 09/26/20 HUMAN RESOURCES DESIGNATE [address] [place] [address] documented as of this encounter
--- OUTSIDE RECORDS SUMMARY | 2022-06-17 09:12 | XMS_ITS | Encounter Summary ---
:1985 Author Organization [place] Address [address] [place] [address] Care Team Providers Name Role Phone Rashida Pdeerson APRN, CNP Primary Care Provider [phone] Rashida Pederson APRN BRUSH SANDER Unavailable [phone] Rashida Pederson APRN BRUSH SANDER Unavailable [phone] Reason for Visit Reason Onset Date Comments Nurse Advice Line 05/13/2016 mantoux testing Encounter Details Date Type Department Care Team Description [facility]/13[facility] [place] ZIYAD Benitez CNP (mantoux testing) [address] [place] [address] [phone] Social History Tobacco Use Types Packs/Day Years [...] to discuss further. Thank you. Routed to: [facility] Isabel Swenson RN [facility]visors documented in this encounter Plan of Treatment Not on filedocumented as of this encounter Results M Tuberculosis by Quantiferon (05/18/2016 1:20 PM CDT) [facility] Method Time Signature M Tuberculosis Negative NEG [facility] Result [facility] M Tuberculosis 0.00 IU/mL [facility] Antigen Value [facility] Comment: This is a qualitative test. ??The [...] (specimen) CDT PM CDT Rashida Pederson APRN BRUSH SANDER LAB - BLOOD ORDERABLES Performing Organization Address City/State/ZIP Code Phon e Number [facility] [address] documented in this encounter Visit Diagnoses Diagnosis Screening for tuberculosis - Primary Screening examination for pulmonary tube rculosis documented in this encounter Additional Health Concerns Assessment Noted Time PHQ-9 Depression Total Score: 5 03/28/2016 7:13 AM CDT documented as of this encounter Care Teams Second Class Welder Relationship Specialty Start Date End Date Rashida Pederson APRN PCP - General Nurse Practitioner 10/08/14 BRUSH SANDER [address] [place] [address] Rashida Pederson APRN PCP - Assigned PCP 10/14/14 10/18/18 BRUSH SANDER [address] [place] [address] Rashida Pederson APRN Assigned PCP 10/14/14 1 09/26/20 BRUSH SANDER [address] [place] [address] documented as of this encounter
--- OUTSIDE RECORDS SUMMARY | 2022-06-17 09:12 | XMS_ITS | Encounter Summary ---
:1985 Author Organization [place] Address [address] [place] [address] Care Team Providers Name Role Phone Rashida Pederson APRN, CNP Primary Care Provider [phone] Rashida Pederson APRN VISUAL MERCHANDISING ASSOCIATE Unavailable [phone] Rashida Pederson APRN, CNP Unavailable [phone] Reason for Visit Reason Comments Physical fasting Encounter Details Date Type Department Care Team Description 03/27/2016 Office Visit [facility] Rashida Pederson hi story and physical examination of adult (Primary Dx); Clinic [place] ZIYAD Benitez Major depressive disorder, r ecurrent episode, mild (H); [address] [facility] Anxiety; [place] [address] [facility] Acute non-recurrent frontal sinusitis; [address] [place], [place] CARDIOVASCULAR SCREENING; LD L GOAL LESS THAN [phone] Social History Tobacco Use Types Packs/Day Years [...] with me further. Sincerely, Rashida Pederson CNP Rashida Pederson APRN CNP - 03/27/2016 12:57 PM [...] score of 3. 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 Today's PHQ-2 Score: PHQ-2 [...] LDL, TRIG, CHOLHDLRATIO, NHDL in the last 82458 hours. Reviewed orders with patient. Reviewed health maintenance and updated orders accordingly - Yes Mammo Decision Support: Mammogram not appropriate for this patient based on age. Last Mammo:No results found. History of abnormal Pap smear: NO - age 21-29 PAP every 3 years recommended All Histories reviewed and updated in [facility]. ROS: C: NEGATIVE for fever, chills, [...] complete phone visit. Rashida Pederson APRN CNP [facility] documented in this encounter Nursing Notes [...] 20 - 75 [facility] Deficiency ug/L [place] MEDICAL screening [facility] Comment: Season, race, dietary intake, and treatm ent affect the concentration of 58-joitchu-Ldivbnh D. Values may decrea se during winter [...] Organization Address City/State/ZIP Code Phon e Number [facility] [address] [place] [address] [facility] TSH with free T4 reflex (03/27/2016 10:12 AM CDT) athologist Signature TSH 3.95 0.40 - 4.00 [facility] mU/L [facility] Specimen Anatomical Collection Method Collection Time Receive d Time (Source) Location / / Volume Laterality Blood specimen 03/27/2016 10:12 6 (specimen) AM CDT 10:13 AM CDT Rashida Pederson APRN, CNP LAB - BLOOD ORDERABLES Performing Organization Address City/State/ZIP Code Phon e Number [facility] [address] [place] [address] (ABNORMAL) Lipid panel reflex to direct LDL (03/27/2016 10:12 AM CDT) P athologist Signature Cholesterol 215 (H) <200 mg/dL [facility] Comment: Desirable: <200 mg/dl Triglycerides 111 <150 mg/dL [facility] Comment: Fasting specimen HDL Cholesterol 56 >49 mg/dL [facility] LDL Cholesterol Calculated 137 (H) <100 mg/dL FA [facility] Comment: Above desirable: ??100-129 mg/dl Borderline High: ??130-159 mg/dL High: ? 160-189 mg/dL Very high: ? >189 mg/dl Non HDL Cholesterol 159 (H) <130 mg/dL [facility] Comment: Above Desirable: ??130-159 mg/dl Borderline high: ??160-189 mg/dl High: ? 190-219 mg/dl Very high: ? >219 mg/dl Specimen Anatomical Collection Method Collection Time Receive d Time (Source) Location / / Volume Laterality Blood specimen 03/27/2016 10:12 6 (specimen) AM CDT 10:13 AM CDT Rashida Pederson APRN VISUAL MERCHANDISING ASSOCIATE LAB - BLOOD ORDERABLES Performing Organization Address City/State/ZIP Code Phon e Number [facility] [address] [place] [address] (ABNORMAL) Comprehensive metabolic panel (03/27/2016 10:12 AM CDT) [facility] gist Method Time Signature Sodium 136 133 - 144 [facility] mmol/L [facility] Potassium 4.3 3.4 - 5.3 [facility] mmol/L [facility] Chloride 103 94 - 109 [facility] mmol/L [facility] Carbon Dioxide 25 20 - 32 [facility] mmol/L [facility] Anion Gap 8 3 - 14 [facility] mmol/L [facility] Glucose 86 70 - 99 [facility] mg/dL [facility] Urea Nitrogen 10 7 - 30 [facility] mg/dL [facility] Creatinine 0.58 0.52 - [facility] 1.04 CLINICS mg/dL [facility] GFR Estimate >90 >60 [facility] Non GFR Calc mL/min/1. CLINICS 7m2 [facility] GFR Estimate If >90 >60 [facility] Black GFR Calc mL/min/1. CLIN ICS 7m2 [facility] Calcium 9.2 8.5 - [facility] 10.1 CLINICS mg/dL [facility] Bilirubin Total 0.4 0.2 - 1.3 [facility] mg/dL [facility] Albumin 4.1 3.4 - 5.0 [facility] g/dL [facility] Protein Total 8.2 6.8 - 8.8 [facility] g/dL [facility] Alkaline 119 40 - 150 [facility] Phosphatase U/L [facility] ALT 58 (H) 0 - 50 [facility] U/L [facility] AST 42 0 - 45 [facility] U/L [facility] Specimen Anatomical Collection Method Collection Time Receive d Time (Source) Location / / Volume Laterality Blood specimen 03/27/2016 10:12 6 (specimen) AM CDT 10:13 AM CDT Rashida Pederson APRN VISUAL MERCHANDISING ASSOCIATE LAB - BLOOD ORDERABLES Performing Organization Address City/State/ZIP Code Phon e Number [facility] [address] [place] [address] CBC with platelets differential (03/27/2016 10:12 AM CDT) [facility] gist Method Time Signature WBC 6.3 4.0 - [facility] 11.0 CLINICS 10e9/L [facility] RBC Count 4.67 3.8 - 5.2 [facility] 10e12/L [facility] Hemoglobin 14.5 11.7 - [facility] 15.7 g/dL [facility] Hematocrit 42.6 35.0 - [facility] 47.0 % [facility] MCV 91 78 - 100 [facility] MCH 31.0 26.5 - [facility] 33.[address] [facility] MCHC 34.0 31.5 - [facility] 36.5 g/dL [facility] RDW 12.0 10.0 - [facility] 15.0 % [facility] Platelet Count 245 150 - 450 [facility] 10e9/L [facility] Diff Method Automated [facility] Method [facility] % Neutrophils 47.7 % [facility] % Lymphocytes 40.3 % [facility] % Monocytes 9.0 % [facility] % Eosinophils 2.7 % [facility] % Basophils 0.3 % [facility] Absolute 3.0 1.6 - 8.3 [facility] Neutrophil 10e9/L [facility] Absolute 2.5 0.8 - 5.3 [facility] Lymphocytes 10e9/L [facility] Absolute 0.6 0.0 - 1.3 [facility] Monocytes 10e9/L [facility] Absolute 0.2 0.0 - 0.7 [facility] Eosinophils 10e9/L [facility] Absolute 0.0 0.0 - 0.2 [facility] Basophils 10e9/L [facility] Specimen Anatomical Collection Method Collection Time Receive d Time (Source) Location / / Volume Laterality Blood specimen 03/27/2016 10:12 6 (specimen) AM CDT 10:13 AM CDT Rahsida Pederson APRN VISUAL MERCHANDISING ASSOCIATE LAB - BLOOD ORDERABLES Performing Organization Address [facility] Phon e Number [facility] [address] [place] [address] Wet prep (03/27/2016 10:00 AM CDT) [facility] Method Time Signature Specimen Vagina [facility] Description [facility] Wet Prep No Trichomonas seen [facility] No clue cells seen [facility] No yeast seen [facility] Micro Report FINAL [facility] Status 03/27/2016 [facility] Specimen Anatomical Collection Method Collection Time Receive d Time (Source) Location / / Volume Laterality 03/27/2016 10:00 03/27/2016 AM CDT 10:25 AM CDT Rashida Pederson APRN, CNP LAB - MICRO GENERAL ORDER SUSHMA Performing Organization Address [facility] Phon e Number [facility] [address] [place] [address] CHLAMYDIA TRACHOMATIS PCR (03/27/2016 10:00 AM CDT) Component Value Ref Test Analysis Performed At [facility] Range Method Time Signature Specimen Cervical [facility] Description [facility] Chlamydia Negative NEG [facility] Trachomatis Negative for C. trachomatis rRNA by merchandising consultant mediated amplification. [place] [facility] PCR A negative result by transc ription mediated amplification does not preclude the [facility] presence of C. trachomatis infection because re sults are dependent on proper BANK and adequate collection, absence of inhibitors, and suffici ent rRNA to be detected. Specimen (Source) Anatomical Collection Method Collection Time Re ceived Time Location / / Volume Laterality Endocervical swab 03/27/2016 10:00 2015 (procedure) AM CDT 10:24 AM CDT Rashida Pederson APRN VISUAL MERCHANDISING ASSOCIATE LAB - MICRO GENERAL ORDER SUSHMA Performing Organization Address [facility] Phon e Number [address] [address] NEISSERIA GONORRHOEA PCR (03/27/2016 10:00 AM CDT) Component Value Ref Test Analysis Performed At [facility] gist Range Method Time Signature Specimen Cervical [facility] N Gonorrhea Negative NEG [facility] Negative for N. gonorrhoeae rRNA by transcripti on mediated amplification. [place] [facility] A negative result by transc ription mediated amplification does not preclude the [facility] presence of N. gonorrhoeae infection because re sults are dependent on proper BANK and adequate collection, absence of inhibitors, and suffici ent rRNA to be detected. Specimen (Source) Anatomical Collection Method Collection Time Re ceived Time Location / / Volume Laterality Endocervical swab 03/27/2016 10:00 2015 (procedure) AM CDT 10:24 AM CDT Rashidagladys Kendricklenore Pederson APRN VISUAL MERCHANDISING ASSOCIATE LAB - MICRO GENERAL ORDER SUSHMA Performing Organization Address [facility] Code Phon e Number [id number] [place] [address] PAP IMAGED THIN LAYER SCREEN (03/27/2016 12:00 AM CDT) Component Value Ref Test Analysis Performed At [facility] gist Range Method Time Signature PAP NIL COPATH Copath Report COPATH Patient Name: LOGAN BARGER MR#: [id number] Specimen #: [id number] Collected: 03/27/2016 Received: 03/30/2016 Reported: 04/01/2016 09:33 [...] MARV Light (ASCP) Processed and screened at [facility] CLINICAL HISTORY: Intra-Uterine Device, Previous normal pap Date of Last Pap: 11/09/12, Papanicolaou Test Limitations: ??Cervical cytology is a scre ening test with limited sensitivity; regular screening is critical for cancer prevention; Pap tests are primarily effective for the diagnosis/prevention of squamous cell carcinoma, not adenoca rcinomas or other cancers. TESTING LAB LOCATION: [address] ??[address] COLLECTION SITE: Client: ??[facility] Location: [facility] (R) Specimen (Source) Anatomical Collection Method Collection Time Re ceived Time Location / / Volume Laterality Cytologic 03/27/2016 03/30/2016 1:32 material PM CDT (specimen) Rashida Pederson APRN VISUAL MERCHANDISING ASSOCIATE LAB - OPTIME CLINICAL SPE [facility] Performing Organization Address City/State/ZIP Code [...] documented as of this encounter Care Teams Lever Tender Relationship Specialty Start Date End Date Rashida Pederson APRN PCP - General Nurse Practitioner 10/08/14 VISUAL MERCHANDISING ASSOCIATE [address] [place] [address] Rashida Pederson APRN PCP - Assigned PCP 10/14/14 10/18/18 VISUAL MERCHANDISING ASSOCIATE [address] [place] [address] Rashida Pederson APRN Assigned PCP 10/14/14 1 09/26/20 [facility] [address] [place] [id number] documented as of this encounter
--- OUTSIDE RECORDS SUMMARY | 2022-06-17 09:12 | XMS_ITS | Encounter Summary ---
:1985 Author Organization [place] Address [address] [place] [address] Care Team Providers Name Role Phone Rashida Pederson APRN AREA DIRECTOR OF HOME HEALTH SALES Primary Care Provider [phone] BgRashida cornejo APRN AREA DIRECTOR OF HOME HEALTH SALES Unavailable [phone] BgRashida cornejo APRN AREA DIRECTOR OF HOME HEALTH SALES Unavailable [phone] Encounter Details Date Type Department Care Team Description 05/05/2016 Records - [facility] Provider, [facility] [place] [address] Social History Tobacco Use Types [...] Time Signature Hepatitis B Positive Positive 05/06/2016 [facility] Surface 8:38 AM CDT [facility] Value Specimen Anatomical Collection Method / Collection Time Recei merry Time (Source) Location / Volume Laterality Blood specimen Venipuncture / 05/05/2016 8:30 05/05/20 16 (specimen) Unknown PM CDT 10:52 PM CDT Historical Provider LAB - BLOOD ORDERABLES Performing Organization Address City/State/ZIP Code Phon e Number [facility] [place] [address] [address] [facility] documented in this encounter Visit Diagnoses Not on filedocumented in this encounter Additional Health Concerns Assessment Noted Time PHQ-9 Depression Total Score: 5 03/28/2016 7:13 AM CDT documented as of this encounter Care Teams Acquisitions Editor Relationship Specialty Start Date End Date Rashida Pederson APRN PCP - General Nurse Practitioner 10/08/14 [employer]A DIRECTOR OF HOME HEALTH SALES [address] [place] [address] Rashida Pederson APRN PCP - Assigned PCP 10/14/14 10/18/18 AREA DIRECTOR OF HOME HEALTH SALES [address] [place] [address] Rashida Pederson APRN Assigned PCP 10/14/14 1 09/26/20 AREA DIRECTOR OF HOME HEALTH SALES [address] [place] [address] documented as of this encounter
--- OUTSIDE RECORDS SUMMARY | 2022-06-17 09:12 | XMS_ITS | Encounter Summary ---
:1985 Author Organization [place] Address [address] [place] [address] Care Team Providers Name Role Phone Rashida Pederson APRN AUTOMOBILE CARPETS MOLDER Primary Care Provider [phone] Rashida Pederson APRN AUTOMOBILE CARPETS MOLDER Unavailable [phone] BgRashida cornejo APRN AUTOMOBILE CARPETS MOLDER Unavailable [phone] Reason for Visit Reason Onset Date Comments Panel Management 12/18/2015 pap Encounter Details Date Type Department Care Team Description 12/18/[address] [facility] Rashida Pederson (pap) [facility] [place] ZIYAD Benitez CNP [address] [address] [phone] Social History Tobacco Use Types Packs/Day Years [...] physical and pap. Type of outreach: Sent [employer] message. Questions for provider review: None Yessenia Mcgarry CMA Chart routed to care team . documented in this encounter Plan of Treatment Not on filedocumented as of this encounter Visit Diagnoses Not on filedocumented in this encounter Additional Health Concerns Assessment Noted Time PHQ-9 Depression Total Score: 10 09/18/2015 9:10 AM CS T documented as of this encounter Care Teams Metropolitan Editor Relationship Specialty Start Date End Date Rashida Pederson APRN PCP - General Nurse Practitioner 10/08/14 AUTOMOBILE CARPETS MOLDER [address] [place] [address] Rashida Pederson APRN PCP - Assigned PCP 10/14/14 10/18/18 AUTOMOBILE CARPETS MOLDER [address] [place] [address] Rashida Pederson APRN Assigned PCP 10/14/14 1 09/26/20 AUTOMOBILE CARPETS MOLDER [address] [place] [address] documented as of this encounter
--- OUTSIDE RECORDS SUMMARY | 2022-06-17 09:12 | XMS_ITS | Encounter Summary ---
:1985 Author Organization [place] Address [address] [place] [address] Care Team Providers Name Role Phone Rashida Pederson APRN PIPE CLEANER Primary Care Provider [phone] Rashida ePderson APRN PIPE CLEANER Unavailable [phone] Rashida Pederson APRN PIPE CLEANER Unavailable [phone] Encounter Details Date Type Department Care Team [...] on filedocumented in this encounter Care Teams Spindle Plumber Relationship Specialty Start Date End Date Rashida Pederson APRN PCP - General Nurse Practitioner 10/08/14 PIPE CLEANER [address] [place], [place] [id number] Rashida Pederson APRN PCP - Assigned PCP 10/14/14 10/18/18 [facility] [address] [facility] [place] [address] Rashida Pederson APRN Assigned PCP 10/14/14 1 09/26/20 PIPE CLEANER [address] [facility] [place] [address] documented as of this encounter
--- OUTSIDE RECORDS SUMMARY | 2022-06-17 09:12 | XMS_ITS | Encounter Summary ---
:1985 Author Organization [facility] Address [address] [place] [address] Care Team Providers Name Role Phone Rashida Pederson APRN, CNP Primary Care Provider [phone] Rashida Pederson APRN LEATHER FLESHER Unavailable [phone] Rashida Pederson APRN, CNP Unavailable [phone] Reason for Visit Reason Comments Recheck Medication Patient Request for Note/Letter Encounter Details Date Type Department Care Team Description 09/17/2015 Office Visit [facility] Rashida Pederson Anxiety (P rimary Dx); [facility] [place] ZIYAD Benitez CNP Major depressive disorder, recurrent epi sode, mild (H); [address] [place] [address] [place] [address] [phone] Social History Tobacco Use Types Packs/Day Years [...] Comments Blood Pressure 120/80 09/17/2015 8:34 AM CARDIOVASCULAR RADIOLOGIC TECHNOLOGIST Pulse 64 09/17/2015 8:34 AM CARDIOVASCULAR RADIOLOGIC TECHNOLOGIST Temperature 36.6 ??C (97.9 ??F) 09/17/2015 8:34 AM CARDIOVASCULAR RADIOLOGIC TECHNOLOGIST Respiratory Rate 14 09/17/2015 8:34 AM CARDIOVASCULAR RADIOLOGIC TECHNOLOGIST Oxygen Saturation - - Inhaled Oxygen Concentration - - Weight 100.7 kg (222 lb) 09/17/2015 8:34 AM CARDIOVASCULAR RADIOLOGIC TECHNOLOGIST Height 163.8 cm (5' 4.5) 09/17/2015 8:34 AM CARDIOVASCULAR RADIOLOGIC TECHNOLOGIST Body Mass Index 37.52 09/17/2015 8:34 AM CARDIOVASCULAR RADIOLOGIC TECHNOLOGIST documented in this encounter Patient Instructions Patient InstructionsRashida Pederson, ZIYAD LEATHER FLESHER - 09/17/2015 8:58 AM CARDIOVASCULAR RADIOLOGIC TECHNOLOGIST Images from the original note were not [...] the nature of your anxiety disorder. ?? 5102-2090 [employer]. [address] [place] [address]. All rights reserved. This information is not intended as a substitute for professional medical care. Always follow your healthcare professional's instructions. IOVASCULAR RADIOLOGIC TECHNOLOGIST documented in this encounter Progress Notes Rashida [...] 19 - Total Score - 6 PHQ-9 Finnish PHQ-9 Any Language GAD7 ?? Amount of [...] has only received prescription for ativan from [facility], last filled in 01/2015. Major depressive disorder, recurrent episode, mild (HCC) Orders: - escitalopram (LEXAPRO) 20 MG tablet; Take 1 tablet (20 mg) by mouth daily Other orders - DEPRESSION ACTION PLAN (DAP) FUTURE APPOINTMENTS: - Follow-up visit in 6 months, sooner as needed. Rashida Pederson APRN CNP [facility] IOVASCULAR RADIOLOGIC TECHNOLOGIST documented in this encounter Nursing Notes Yessenia [...] completed using cuff size: ernestine Mcgarry CMA IOVASCULAR RADIOLOGIC TECHNOLOGIST documented in this encounter Plan of Treatment [...] documented as of this encounter Care Teams Concrete Mixing Truck Driver Relationship Specialty Start Date End Date Rashida Pederson APRN PCP - General Nurse Practitioner 10/08/14 LEATHER FLESHER [address] [place] [address] Rashida Pederson APRN PCP - Assigned PCP 10/14/14 10/18/18 LEATHER FLESHER [address] [place] [address] Rashida Pederson APRN Assigned PCP 10/14/14 1 09/26/20 LEATHER FLESHER [address] [place] [address] documented as of this encounter
--- OUTSIDE RECORDS SUMMARY | 2022-06-17 09:12 | XMS_ITS | Encounter Summary ---
:1985 Author Organization [facility] Address [address] [place] [address] Care Team Providers Name Role Phone Rashida Pederson APRN LINEN ROOM HOUSEPERSON Primary Care Provider [phone] Rashida Pederson APRN LINEN ROOM HOUSEPERSON Unavailable [phone] Rashida Pederson APRN LINEN ROOM HOUSEPERSON Unavailable [phone] Reason for Visit Reason Onset Date Comments Forms 10/28/2015 letter Encounter Details Date Type Department Care Team Description 10/28/2015 Telephone [facility] Rashida Pederson, Forms (letter) [place] STORAGE ARCHITECT LINEN ROOM HOUSEPERSON [address] [phone] [place] [address] (Wo rk) Social History Tobacco [...] 2:21 PM CDT Placed in mail Diana Ozuna/Irrigating Pump Operator Telephone Encounter - Inessa Bradshaw RN - 10/28/2015 1:22 PM CDT Pt calls, lost letter from 09/17, would like re-mailed to her. Printed at [facility]. Will route this to [facility] as FYI to mail, not leave up front. Thank you!! Inessa Bradshaw, LEIE documented in this encounter Plan of Treatment Not on filedocumented as of this encounter Visit Diagnoses Not on filedocumented in this encounter Additional Health Concerns Assessment Noted Time PHQ-9 Depression Total Score: 10 09/18/2015 9:10 AM CS T documented as of this encounter Care Teams Computer Technologist Relationship Specialty Start Date End Date Rashida Pederson APRN PCP - General Nurse Practitioner 10/08/14 LINEN ROOM HOUSEPERSON [address] [place] [address] Rashida Pederson APRN PCP - Assigned PCP 10/14/14 10/18/18 LINEN ROOM HOUSEPERSON [address] [place] [address] Rashida Pederson APRN Assigned PCP 10/14/14 1 09/26/20 LINEN ROOM HOUSEPERSON [address] [place] [address] documented as of this encounter
--- OUTSIDE RECORDS SUMMARY | 2022-06-17 09:12 | XMS_ITS | Encounter Summary ---
:1985 Author Organization [facility] Address [address] [place] [address] Care Team Providers Name Role Phone Rashida Pederson APRN, CNP Primary Care Provider [phone] Rashida Pederson APRN PROJECT CONTROLS SPECIALIST Unavailable [phone] Rashida Pederson APRN PROJECT CONTROLS SPECIALIST Unavailable [phone] Reason for Visit Reason Onset Date Comments Forms 05/18/2016 [facility] nursing program form Encounter Details Date Type Department Care Team Description 05/18/2016 Telephone [facility] Rashiad Pederson Forms ([facility] ZIYAD Benitez CNP nursing program form) [address] [place] [phone] [phone] Social History Tobacco Use Types Packs/Day Years [...] 2:05 PM CDT Placed up front for seed cone picker Diana Ozuna/Licensed Practical Vocational Nurse Telephone Encounter - Rashida Pederson APRN CNP - 05/20/2016 12:58 PM CDT Form completed and given to TC. Rashida Pederson CNP Telephone Encounter - Vannessa Gandhi - 05/18/2016 1:23 PM CDT Logan dropped off an [facility] form to be filled out. Please call Logan when readyfor seed cone picker. documented in this encounter Plan of Treatment Not on filedocumented as of this encounter Visit Diagnoses Not on filedocumented in this encounter Additional Health Concerns Assessment Noted Time PHQ-9 Depression Total Score: 5 03/28/2016 7:13 AM CDT documented as of this encounter Care Teams Crushing Machine Operator Relationship Specialty Start Date End Date Rashida Pederson APRN PCP - General Nurse Practitioner 10/08/14 PROJECT CONTROLS SPECIALIST [address] [place] [address] Rashida Pederson APRN PCP - Assigned PCP 10/14/14 10/18/18 PROJECT CONTROLS SPECIALIST [address] [place] [address] Rashida Pederson APRN Assigned PCP 10/14/14 1 09/26/20 PROJECT CONTROLS SPECIALIST [address] [place] [address] documented as of this encounter
--- OUTSIDE RECORDS SUMMARY | 2022-06-17 09:13 | XMS_ITS | Encounter Summary ---
:1985 Author Organization [place] Address [facility] [place] [address] Care Team Providers Name Role Phone Shari Mann Primary Care Provider Reason for Visit Reason Onset Date Comments Medication Request 12/06/2013 lorazapam Encounter Details Date Type Department Care Team Description 12/06/2013 Telephone [facility] Women's Nurse, p [facility] Medication Request Clinic [place] (lorazapam) [address] [facility] Professional Bldg [facility] [address] [place] [address] Social History Tobacco Use Types [...] scheduled annual exam. Prescription called into [facility] [place]. Telephone Encounter - Fatou Randhawa CNM - 12/06/2013 7:56 PM CDT Please let her know that her ANNUAL STARCH CRAB exam is due. I see that she [...] a prescription for lorazepam. She works for [employer] and because of the insurance change this year, she is no longer able to see the provider that was prescribing her the lorazepam, and Fatou Randhawa stated she would take over the medication for her. She'd likea call to see if that's still possible, and where in the process her request is. You can call her [phone] before noon, and the number above after. [...] it goes to the [facility] in [place]. Pt can be reached at [phone] Thank you HTN Please DO NOT send this message and/or reply back to sender. Call Center Representatives DO NOT respond to messages. ------ documented in this encounter Plan of Treatment Not on filedocumented as of this encounter Visit Diagnoses Diagnosis Panic attacks - Primary Panic disorder without agoraphobia documented in this encounter Care Teams Vice President Precision Market Insights Relationship Specialty Start Date End Date Shari Mann PCP - General 07/12/12 10/07/14 documented as of this encounter
--- OUTSIDE RECORDS SUMMARY | 2022-06-17 09:13 | XMS_ITS | Encounter Summary ---
:1985 Author Organization [facility] Address [address] [place] [address] Care Team Providers Name Role Phone Shari Mann Primary Care Provider Reason for Visit Reason Comments Invasive Physician Exam pelvic and breast Encounter Details Date Type Department Care Team Description 12/18/[address] [facility], Routine gy necological examination (Primary Dx); [facility] Fatou Sheridan APRN Mirena IUD (intrauterine device) in place; [facility] Dysmenorrhea; [address] Ovarian follicular cyst -- r ecurrent [place] Professional Bldg [facility] [address] [place] [address] Social History Tobacco Use Types [...] through spring and during summer unless you [id number]' full body sun exposure to skin without [...] the following service providers for further information: 1.[facility] located in [address] of our office building. Call to schedule: [phone] 2. [place] [facility] via this website: [email or web address] [email or web address].[email or web address]/ Call to schedule: [phone] (option 1) 4) diabetes blood test screening if you are at risk for diabetes. Our Clinic is a HOSPITAL CLINIC which means you will get TWO bills. One will be from [facility] and the other from [facility]. For estimates on the costs of services you may call the Consumer Pricing Line at [phone] to request a good marlin estimate on your bill. Alternately, you may request a cost estimate on line at this web site: http://www.[employer] ([employer]).org/billing/Serviceandprocedurepricing/ Please know that our providers are working [...] treatment and prevention of sexually contacted infections. WWW.health.firsthealth.pa.us : [place] dept of heat, public health issues in [place], N1N1 WWW.familydoctor.org : good info from the Academy of Family Physicians documented in this encounter Progress Notes Fatou Randhawa APRN CNM - 12/18/2013 3:45 PM CDT SUBJECTIVE: Logan Arredondo is an 28 year old Female, , who requests an Annual RADIATION CONTROL SPECIALIST Preventive Health Care Exam. 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 Smoking status: [...] lesions, erythema or abnormal secretions. Bartholin's, Urethra, Ellinger's glands are normal. Vagina: moist, pink, rugae [...] CDT Chief Complaint Patient presents with ??? Invasive Physician Exam pelvic and breast Continues to have spotting with the IUD. documented in this encounter Plan of Treatment Not on filedocumented as of this encounter Visit Diagnoses Diagnosis Routine gynecological examination - Prim jason Mirena IUD (intrauterine device) in plac e Presence of intrauterine contraceptive d evice Dysmenorrhea Ovarian follicular cyst -- recurrent Follicular cyst of ovary documented in this encounter Care Teams Entry Processor Relationship Specialty Start Date End Date Shari Mann PCP - General 07/12/12 10/07/14 documented as of this encounter
--- OUTSIDE RECORDS SUMMARY | 2022-06-17 09:13 | XMS_ITS | Encounter Summary ---
:1985 Author Organization [facility] Address [address] [place] [address] Care Team Providers Name Role Phone Shari Mann Primary Care Provider Reason for Visit Reason Onset Date Comments Refill Request 09/17/2014 Encounter Details Date Type Department Care Team Description 09/17/2014 MyC Refill [facility] Womens Lizzette Randhawa, Refill Request Clinic [place] SUPERVISOR WALL MIRROR DEPARTMENT CN [address] [facility] Professional Bldg [facility] [address] [place], [place] [phone] Social History Tobacco Use [...] Randhawa CNM sent at 09/21/2014 7:34 AM MANAGER IMPLEMENTATION ----- Could see Dr. Aldrich or another PCP here if my schedule does not allow b/4 my work in [place]. GER IMPLEMENTATION Telephone Encounter - Fatou Randhawa APRN CNM - 09/21/2014 7:34 AM MANAGER IMPLEMENTATION She neeeds visit and medication review. Please assist her with locating Psych evaluation options with her insurance. Am happy to refer her. Quickest evaluation in ED is option if there is an Emergency. GER IMPLEMENTATION Telephone Encounter - Mary Gutierrez RN - 09/18/2014 2:59 PM MANAGER IMPLEMENTATION Route to Kirti Randhawa to review. Mary Gutierrez RN GER IMPLEMENTATION Telephone Encounter - Mary Gutierrez RN - 09/18/2014 2:59 PM MANAGER IMPLEMENTATION Message from C4M: Original authorizing provider: ABDOUL Calvillo would like a refill of the following medications: LORazepam (ATIVAN) 0.5 MG tablet [Fatou Randhawa CNM] Preferred pharmacy: [facility] [address] [place] [address] Comment: Sharif Menchaca a patient of Kirti [...] michelle or is there another Nurse Practitioner/Physicians Hair Spinning Machine Operator that someone can refer me to. Alvarez Ford GER IMPLEMENTATION documented in this encounter Plan of Treatment Not on filedocumented as of this encounter Visit Diagnoses Diagnosis Panic attacks Panic disorder without agoraphobia documented in this encounter Care Teams Baggagemaster Relationship Specialty Start Date End Date Shari Mann PCP - General 07/12/12 10/07/14 documented as of this encounter
--- OUTSIDE RECORDS SUMMARY | 2022-06-17 09:13 | XMS_ITS | Encounter Summary ---
:1985 Author Organization [facility] Address [address] [place] [address] Care Team Providers Name Role Phone Mann, Shari Primary Care Provider Reason for Referral - Closed Specialty Diagnoses / Procedures Referred By Contact Refer red To Contact Diagnoses Encounter for IUD insertion U[facility] Procedures Tape Keller Operator,Limited (Follow [place]) [address] [place] Professional Bldg [facility] [address] [place], [place] [phone] Referral ID Status Reason Start Date Expiration Date Visits Requ ested Visits Authorized [id number] Closed 08/07/2013 02/03/2014 1 1 H ROOM TECHNICIAN Reason for Visit Reason Onset Date Comments Erroneous encounter-disregard 09/01/2013 Encounter Details Date Type Department Care Team Description 08/07/2013 Office Visit [facility] Coretta Rdz er for IUD insertion (Primary Dx); [facility] MD Mihaela ERRONEOUS ENCOUNTER--DISREGARD [place] [address] [place], [place] Bldg [facility] [address] [address] [address] [place], [place] (Work) [phone] Social History Tobacco Use Types Packs/Day Years [...] encounter was opened in error. Please disregard. H ROOM TECHNICIAN documented in this encounter Plan of Treatment Not on filedocumented as of this encounter Visit Diagnoses Diagnosis Encounter for IUD insertion - Primary Encounter for insertion of intrauterine contraceptive device ERRONEOUS ENCOUNTER--DISREGARD documented in this encounter Care Teams Texture Artist Relationship Specialty Start Date End Date Shari Mann PCP - General 07/12/12 10/07/14 documented as of this encounter
--- OUTSIDE RECORDS SUMMARY | 2022-06-17 09:13 | XMS_ITS | Encounter Summary ---
:1985 Author Organization [facility] Address [address] [place] [address] Care Team Providers Name Role Phone Shari Mann Primary Care Provider Reason for Visit Reason Comments IUD IUD consult Encounter Details Date Type Department Care Team Description 07/24/[address] [facility], Encounter for IUD insertion (Primary Dx); [facility] ZIYAD Rasheed gene ral counseling and advice for contraceptive management; [place] CN History of pulmonary embolis m; [address] Contraception--condoms [facility] [address] [place] [address] Social History Tobacco Use Types [...] Comments Blood Pressure 133/78 07/24/2013 2:28 PM MEASUREMENT COORDINATOR Pulse 84 07/24/2013 2:28 PM MEASUREMENT COORDINATOR Temperature - - Respiratory Rate - - Oxygen Saturation - - Inhaled Oxygen Concentration - - Weight 100.7 kg (222 lb) 07/24/2013 2:28 PM MEASUREMENT COORDINATOR Height 163.8 cm (5' 4.5) 07/24/2013 2:28 PM MEASUREMENT COORDINATOR Body Mass Index 37.52 07/24/2013 2:28 PM MEASUREMENT COORDINATOR documented in this encounter Patient Instructions Patient InstructionsFatou Randhawa CNM - 07/24/2013 2:35 PM CST Further information on contraceptive options is available at: https://www.plannedparunc health wayneood.org/all-access/zu-ououhc-42567.htm Please call the first day of your next period to schedule either an Mirena IUD insert or a Nexplanonplacement. IF you decide on the IUD, please fiber picker the misoprostol prescription and have it ready to take 2 hours before the appt time. See directions on the prescription label. Take ibuprofen 600 mg or Aleve 500 one hr before appt with light snack. Mirena IUD will need to be removed and/or replaced in 5 years. For additional information re your IUD, please check the following Web site : http://www.acog.org/~/media/For%20Patients/bnu141.pdf?dmc=1&uy=[email or web address] 31 I gave you detailed written information [...] using NEXPLANON. My bleeding may be irregular, legal executive or heavier, or my bleeding may completely [...] choose to use NEXPLANON. Women's Health Specialist, [facility] -- (Name of Healthcare Provider) (Patient Signature) [...] to have her questions answered. (Signature of Recreation Worker) (Date) Manufactured by: [employer] [place] [place], a subsidiary of [employer] [place] [address], [place] Copyright ?? 2010 [employer] a subsidiary of [employer] Inc. All rights reserved. Revised: 12/2011 [id number] Thanks for trusting our providers at [facility] with your health care needs. Fatou Randhawa, MSN, CNM UREMENT COORDINATOR documented in this encounter Progress Notes Fatou [...] has had recent negative STI screen at [facility]. ASSESSMENT: 1. Encounter for IUD insertion (V25.11) misoprostol (CYTOTEC) 200 MCG tablet 2. Other general counseling and advice for contraceptive management (V25.09) 3. History of pulmonary embolism (V12.55) PLAN: BC options reviewed including use, efficacy, risks, benefits, and compliance. Further information on contraceptive options is available at: https://www.plannedparenthood.org/all-access/ft-dzfdra-39735.htm Medication Rx Status Sig ??? misoprostol (CYTOTEC) [...] C and CC Fatou Randhawa, MSN, CNM UREMENT COORDINATOR documented in this encounter Nursing Notes 07/24/2013 [...] management documented in this encounter Care Teams Information Technology Technician Relationship Specialty Start Date End Date Shari Mann PCP - General 07/12/12 10/07/14 documented as of this encounter
--- OUTSIDE RECORDS SUMMARY | 2022-06-17 09:13 | XMS_ITS | Encounter Summary ---
:1985 Author Organization [facility] Address [address] [place] [address] Care Team Providers Name Role Phone Shari Mann Primary Care Provider Rashida Pederson APRN PETROLEUM GEOLOGIST Primary Care Provider [phone] Reason for Visit Reason Comments Establish Care Depression Anxiety Encounter Details Date Type Department Care Team Description 10/06/2014 Office Visit [facility] Rashida Pederson Anxiety (P rimary Dx); Clinic [place] ZIYAD Benitez CNP Panic attack; [address] Major depression, recurrent (H) [place] [address] [phone] Social History Tobacco Use Types Packs/Day Years [...] Comments Blood Pressure 102/64 10/06/2014 8:10 AM LEVEL GLASS FORMING MACHINE OPERATOR Pulse 62 10/06/2014 8:10 AM LEVEL GLASS FORMING MACHINE OPERATOR Temperature 36.7 ??C (98 ??F) 10/06/2014 8:10 AM LEVEL GLASS FORMING MACHINE OPERATOR Respiratory Rate 10 10/06/2014 8:10 AM LEVEL GLASS FORMING MACHINE OPERATOR Oxygen Saturation - - Inhaled Oxygen Concentration - - Weight 94.8 kg (209 lb) 10/06/2014 8:10 AM LEVEL GLASS FORMING MACHINE OPERATOR Height 163.8 cm (5' 4.5) 10/06/2014 8:10 AM LEVEL GLASS FORMING MACHINE OPERATOR Body Mass Index 35.32 10/06/2014 8:10 AM LEVEL GLASS FORMING MACHINE OPERATOR documented in this encounter Patient Instructions Patient InstructionsRashida Pederson, PETROLEUM GEOLOGIST - 10/06/2014 8:38 AM CST Images from [...] can help youlive a healthier life. ?? 9350-2398 [employer]. [address] [place] [address], [place] [address]. All rights reserved. This information is not intended as a substitute for professional medical care. Always follow your healthcare professional's instructions. L GLASS FORMING MACHINE OPERATOR documented in this encounter Progress Notes Rashida [...] father. 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 [...] weeks, sooner as needed. Rashida Pederson CNP [facility] L GLASS FORMING MACHINE OPERATOR documented in this encounter Nursing Notes Ilda [...] using cuff size: large Ilda Phillips CMA L GLASS FORMING MACHINE OPERATOR documented in this encounter Miscellaneous Notes Addendum Note - Ilda Phillips CMA - 10/08/2014 1:00 PM LEVEL GLASS FORMING MACHINE OPERATOR Addended by: ILDA PHILLIPS on: 10/08/2014 01:00 PM Modules accepted: Orders L GLASS FORMING MACHINE OPERATOR documented in this encounter Plan of Treatment Not on filedocumented as of this encounter Visit Diagnoses Diagnosis Anxiety - Primary Anxiety state, unspecified Panic attack Panic disorder without agoraphobia Major depression, recurrent (H) Major depressive disorder, recurrent epi sode, unspecified documented in this encounter Care Teams Wood Hacker Relationship Specialty Start Date End Date Shari Mann PCP - General 07/12/12 10/07/14 Rashida Pederson APRN CNP PCP - General Nurse Practitioner 10/08/14 [address] [place] [address] documented as of this encounter
--- OUTSIDE RECORDS SUMMARY | 2022-06-17 09:13 | XMS_ITS | Encounter Summary ---
:1985 Author Organization [place] Address [address] [place] [address] Care Team Providers Name Role Phone Shari Mann Primary Care Provider Reason for Visit Reason Onset Date Comments Erroneous encounter-disregard Erroneous encounter-disregard 09/11/2013 Encounter Details Date Type Department Care Team Description 09/11/2013 Orders Only [facility] Fatou Randhawa [facility] S, GEOSCIENCE LABORATORY TECHNICIAN ABDOUL ENCOUNTER--SARAH MISHRA Newcomb (Primary Dx) [address] [place] Professional Bldg [facility] [address] [place] [address] Social History Tobacco Use Types [...] encounter was opened in error. Please disregard. ULTING SME documented in this encounter Plan of Treatment Not on filedocumented as of this encounter Visit Diagnoses Diagnosis ERRONEOUS ENCOUNTER--DISREGARD - Primary documented in this encounter Care Teams Screen Making Supervisor Relationship Specialty Start Date End Date Shari Mann PCP - General 07/12/12 10/07/14 documented as of this encounter
--- OUTSIDE RECORDS SUMMARY | 2022-06-17 09:13 | XMS_ITS | Encounter Summary ---
:1985 Author Organization [place] Address [address] [place] [address] Care Team Providers Name Role Phone Shari aMnn Primary Care Provider Reason for Visit Reason Comments Abdominal Pain Abd pain comes and goes. Pos itional. 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 [...] of ??? Cancer No family hx of Cpo Hx: Patient's last menstrual period was 10/29/2013. [...] PCR (Clinic Collect), Gonorrhea PCR, Urine Culture, Cpo,Limited ([place]) [address], [place] SUPERVISOR REACTOR FUELING Complete Transvaginal - 59779 (In Clinic), US Pelvic Complete with Transvaginal 625.3 Dysmenorrhea Comment: Plan: Cpo,Limited (Follow up [place]) [address], [place] SUPERVISOR REACTOR FUELING Complete Transvaginal - 39593 (In Clinic), US Pelvic Complete with Transvaginal [...] Component Value Ref Test Analysis Performed At [facility] Method Time Signature Specimen Urine [facility] [...] 014 6:31 (specimen) CDT PM CDT Sharron Bentley Jayson [facility] - MICRO GENERAL ORDERA BLES Performing Organization Address City/[facility]/ZIP Code Phon e Number [address] [address] [facility] MICROBIOLOGY Chlamydia PCR (Clinic Collect) (11/02/2013 2:55 PM CDT) Component Value Ref Test Analysis Performed At [facility] Method Time Signature Specimen Urine [facility] Description MICROBIOLOGY Chlamydia Negative NEG [facility] Trachomatis Negative for C. trachomatis rRNA by claims analyst mediated amplification. MICROBIOLOGY PCR A negative result [...] 014 6:31 (specimen) CDT PM CDT Sharron Jenkinsveda [facility] - MICRO [facility] [place] KELLYArvin Performing Organization Address City/[facility]/ZIP Code Phon e Number [address] [address] [facility] MICROBIOLOGY (ABNORMAL) Urine Culture (11/02/2013 1:59 PM CDT) Component Value Ref Test Analysis Performed At [facility] Method Time Signature Specimen Unspecified Urine [...] PM CDT CATCH PROCEDURE / Unknown Sharron Lynn Jayson LACKEY CNM LAB - MICRO GENERAL CASSY ONEAL Performing Organization Address City/State/ZIP Code Phon e Number [id number] [place] [address] MICROBIOLOGY documented in this encounter Visit Diagnoses Diagnosis Mirena IUD (intrauterine device) in plac e - Primary Presence of intrauterine contraceptive d evice Dysmenorrhea documented in this encounter Care Teams Grain Farmworker Relationship Specialty Start Date End Date Shari Mann PCP - General 07/12/12 10/07/14 documented as of this encounter
--- OUTSIDE RECORDS SUMMARY | 2022-06-17 09:13 | XMS_ITS | Encounter Summary ---
:1985 Author Organization [place] Address [address] [place] [address] Care Team Providers Name Role Phone Shari Mann Primary Care Provider Reason for Visit Reason Comments Procedure Ultrasound guided IUD insert (mirena) Encounter Details Date Type Department Care Team Description 08/07/2013 Office Visit [facility] Floyd Rdz MD [address] [place] [address] Encounter for IUD [facility] Idalmis Son MD [address] [address] [place] [address] insertion (Primary [place] Dx) [address] [place] Professional Bldg [facility] [address] [place] [address] Social History Tobacco Use Types [...] Comments Blood Pressure 148/95 08/07/2013 11:35 AM LISW Pulse 106 08/07/2013 11:35 AM LISW Temperature - - Respiratory Rate - - Oxygen Saturation - - Inhaled Oxygen Concentration - - Weight 99.3 kg (219 lb) 08/07/2013 11:35 AM LISW Height - - Body Mass Index 37.01 08/02/2013 2:51 PM LISW documented in this encounter Patient Instructions Patient InstructionsHoIdalmis aguilar MD - 08/07/2013 4:00 PM LISW IUD pamphlet reviewed and given to patient. documented in this encounter Progress Notes Idalmis [...] lesions, erythema or abnormal secretions. Bartholin's, Urethra, Columbia's glands are normal. Vagina: moist, pink, rugae [...] from the external os. Device Lot #: [id number] EBL: Minimal Complications: None Logan Arredondo tolerated [...] verbalized understanding of instructions. Idalmis Son MD documented in this encounter Nursing Notes 08/07/2013 [...] 4:00 PM Encounter for IUD INTRAUTERINE DEVICE LISW insertion documented in this encounter Visit Diagnoses Diagnosis Encounter for IUD insertion - Primary Encounter for insertion of intrauterine contraceptive device documented in this encounter Care Teams Counter Stitcher Relationship Specialty Start Date End Date Shari Mann PCP - General 07/12/12 10/07/14 documented as of this encounter
--- OUTSIDE RECORDS SUMMARY | 2022-06-17 09:13 | XMS_ITS | Encounter Summary ---
:1985 Author Organization [facility] Address [address] [place] [address] Care Team Providers Name Role Phone Shari Mann Primary Care Provider Reason for Visit Reason Onset Date Comments Onboarding 09/14/2013 Onboarding [facility] Encounter Details Date Type Department Care Team Description 09/14/2013 Telephone [facility] Unassigned, Clinic Onboarding (Onboarding [place] [facility]) [phone] Social History Tobacco Use Types Packs/Day Years [...] 2:21 PM CDT Selection of Care System: [facility] Selection of primary provider/clinic: [facility] Do you have a medical condition that requires you to go to see your doctor on a routine basis?: yes If yes, what conditions do you have?: depression/anxiety Do you have any health concerns that you need assistance finding a provider or scheduling an appointment? no Medications: Mirena Lorazepram Allergies: Estrogens [facility] assigned to patient: no Current Pharmacy/location and number: Pharmacy of choice: Prescription names: Telephone Encounter - Apollo Palacios - 09/14/2013 1:29 PM CST 09/14/2013 Call Regarding Onboarding [facility] Attempt 1 Message on voicemail Comments: no dependents Outreach Air Pollution Analyst [facility] Xie CHUTE/COMBATANT DIVER OFFICER documented in this encounter Plan of Treatment Not on filedocumented as of this encounter Visit Diagnoses Not on filedocumented in this encounter Care Teams Mainframe Software Developer Relationship Specialty Start Date End Date Shari Mann PCP - General 07/12/12 10/07/14 documented as of this encounter
--- OUTSIDE RECORDS SUMMARY | 2022-06-17 09:13 | XMS_ITS | Encounter Summary ---
:1985 Author Organization [place] Address [address] [place] [address] Care Team Providers Name Role Phone Shari Mann Primary Care Provider Reason for Visit Reason Comments Abdominal Pain Low, possibly assoicated wit h IUD Encounter Details Date Type Department Care Team Description 04/02/[address] [facility] Tone Yessenia Pelvic pain (Primary Clinic Walker MAHOGANY Velasquez Dx) [address] [address] [facility] [address] [place], [place] [address] Social History Tobacco Use [...] IUD placed - pt has followed with Dairy Store Manager and they reassured her. Pt has had [...] 231 lb (104.781 kg) Labs reviewed in [facility] Problem list, Medication list, Allergies, and Medical/Social/Surgical histories reviewed in [facility] andupdated as appropriate. Review Of Systems Skin: [...] mentation appears normal and affect normal/bright I/P: ([id number]) Pelvic pain (primary encounter diagnosis) Comment: discussed ultrasound and removal of IUD - pt would like to f/u with Dairy Store Manager to discuss, reassured about normal labs today, [...] athologist Signature WBC 9.5 4.0 - 11.0 [place] 10e9/L [facility] RBC Count 4.30 3.8 - 5.2 [place] 10e12/L [facility] Hemoglobin 13.2 11.7 - [place] 15.7 g/dL [facility] Hematocrit 39.7 35.0 - [place] 47.0 % [facility] MCV 92 78 - 100 [place] fl [facility] MCH 30.7 26.5 - [place] 33.0 pg [facility] MCHC 33.2 31.5 - [place] 36.5 g/dL [facility] RDW 12.1 10.0 - [place] 15.0 % [facility] Platelet Count 214 150 - 450 [place] 10e9/L [facility] Specimen Anatomical Collection Method Collection Time Receive d Time (Source) Location / / Volume Laterality Blood specimen 04/02/2014 11:59 4 (specimen) AM CDT 12:02 PM CDT Yessenia [facility] PA-C LAB - BLOOD ORDERABLES Performing Organization Address City/State/ZIP Code Phon e Number [facility] [address] [place], [place] [id number] (ABNORMAL) *UA reflex to Microscopic and Culture (04/02/2014 11:59 AM CDT) [facility] gist Method Time Signature Color Urine Yellow [facility] Appearance Urine Clear [facility] Glucose Urine Negative NEG mg/dL [facility] Bilirubin Urine Negative NEG [facility] Ketones Urine Negative NEG mg/dL [facility] Specific [place] 1.020 1.003 - [place] Urine 1.035 [facility] Blood Urine Negative NEG [facility] pH Urine 8.0 (H) 5.0 - 7.0 [place] pH [facility] Protein Albumin Negative NEG mg/dL [place] Urine [facility] Urobilinogen 0.2 0.2 - 1.0 [place] Urine EU/dL [facility] Nitrite Urine Negative NEG [facility] Leukocyte Negative NEG [place] Esterase Urine [facility] Source Midstream [place] Urine [facility] Specimen Anatomical Collection Method Collection Time Receive d Time (Source) Location / / Volume Laterality Urine specimen 04/02/2014 11:59 4 (specimen) AM CDT 12:02 PM CDT Yessenia [facility] PA-C LAB - URINE ORDERABLES Performing Organization Address City/[facility]/ZIP Code Phon e Number [facility] [id number] [place] [address] CHLAMYDIA TRACHOMATIS PCR (04/02/2014 11:55 AM CDT) Component Value Ref Test Analysis Performed At [facility] Method Time Signature Specimen Cervix [facility] Chlamydia Negative NEG [facility] Trachomatis Negative for C. trachomatis rRNA by sectionizer mediated amplification. MICROBIOLOGY PCR A negative result [...] Organization Address City/State/ZIP Code Phon e Number [phone] [place] [id number] [place] [address] [facility] MICROBIOLOGY NEISSERIA GONORRHOEA PCR (04/02/2014 11:55 AM CDT) Component Value Ref Test Analysis Performed At [facility] Method Time Signature Specimen Cervix [facility] N Gonorrhea Negative NEG [facility] PCR [...] Organization Address City/State/ZIP Code Phon e Number [facility] [address] [place] [address] [facility] [phone] [place] [address] [facility] MICROBIOLOGY Wet prep (04/02/2014 11:55 AM CDT) [facility] Method Time Signature Specimen Vagina [place] Description [facility] Wet Prep No Trichomonas seen [place] No clue cells seen [facility] No yeast seen [place] Micro Report FINAL [place] Status 04/02/2014 [facility] Specimen Anatomical Collection Method Collection Time Receive d Time (Source) Location / / Volume Laterality 04/02/2014 11:55 04/02/2014 AM CDT 12:00 PM CDT Yessenia [facility] PA-C LAB - MICRO GENERAL CASSY ONEAL Performing Organization Address City/[facility]/ZIP Code Phon e Number [facility] [id number] [place] [address] documented in this encounter Visit Diagnoses Diagnosis Pelvic pain - Primary Unspecified symptom associated with fema le genital organs documented in this encounter Care Teams Travel Pta Relationship Specialty Start Date End Date Shari Mann PCP - General 07/12/12 10/07/14 documented as of this encounter
--- OUTSIDE RECORDS SUMMARY | 2022-06-17 09:13 | XMS_ITS | Encounter Summary ---
:1985 Author Organization [place] Address [address] [place] [address] Care Team Providers Name Role Phone Shari Mann Primary Care Provider Reason for Visit Reason Comments IUD Mirena IUD insertion Encounter Details Date Type Department Care Team Description 08/02/2013 Office Visit [facility] [place], Cervical o s stenosis (Primary Dx); [facility] Fatou Sheridan APRN Encounter for IUD insertion [place] [facility] [address] [facility] Professional Bldg [facility] [address] [place] [address] Social History Tobacco Use Types [...] Comments Blood Pressure 144/94 08/02/2013 2:51 PM CENTRAL SERVICE TECHNICIAN Pulse 92 08/02/2013 2:51 PM CENTRAL SERVICE TECHNICIAN Temperature - - Respiratory Rate - - Oxygen Saturation - - Inhaled Oxygen Concentration - - Weight 99.7 kg (219 lb 14.4 oz) 08/02/2013 2:51 PM CENTRAL SERVICE TECHNICIAN Height 163.8 cm (5' 4.5) 08/02/2013 2:51 PM CENTRAL SERVICE TECHNICIAN Body Mass Index 37.16 08/02/2013 2:51 PM CENTRAL SERVICE TECHNICIAN documented in this encounter Patient Instructions Patient InstructionsFatou Randhawa CNM - 08/03/2013 4:14 PM CST I was not able to insert your IUD today as the cervical os was too tightly closed for me to pass theIUD bedspread cutter hand through it up into the uterus. Please rR/S appt for Wednesday with MD. In preparation for appt Wednesday, take the premeds as you did today. Please call if questions. For additional information re your IUD, please check the following Web site : [email or web address] You had a Mirena IUD placed [...] contact us via My Chart or by [phone] and asking to speak with a JOB PRINTER triage nurse. The nurse will contact me for questions she is not able to answer. Thanks for trusting our providers at [facility] with your health [...] a tampon or pad for bleeding. CALL [phone] to report: * Bleeding heavier than normal period or bleeding more than 2 days after the procedure. * An abnormal, bad smell to the drainage from your vagina * Fever greater than 100 degrees and/or chills RAL SERVICE TECHNICIAN documented in this encounter Progress Notes Fatou [...] attempt and return. Fatou Randhawa, MSN, CNM RAL SERVICE TECHNICIAN documented in this encounter Nursing Notes 08/02/2013 3:00 PM CST >> SEE ROSITA AVILA Wed Aug 02, 2013 2:52 PM Patient presents with: IUD - Mirena IUD insertion documented in this encounter Plan of Treatment Not on filedocumented as of this encounter Procedures Procedure Name Priority Date/Time Associated Diagnosis Comme nts HC INSERTION Routine 08/03/2013 4:13 PM Cervical os s tenosis INTRAUTERINE DEVICE CENTRAL SERVICE TECHNICIAN Encounter for IUD insertion documented in this encounter Visit Diagnoses Diagnosis Cervical os stenosis - Primary Stricture and stenosis of cervix Encounter for IUD insertion Encounter for insertion of intrauterine contraceptive device documented in this encounter Care Teams Field Service Coordinator Relationship Specialty Start Date End Date Shari Mann PCP - General 07/12/12 10/07/14 documented as of this encounter
--- OUTSIDE RECORDS SUMMARY | 2022-06-17 09:13 | XMS_ITS | Encounter Summary ---
:1985 Author Organization [place] Address [address] [place] [address] Care Team Providers Name Role Phone Shari Mann Primary Care Provider Reason for Visit Reason Onset Date Comments Refill Request 04/17/2014 Erroneous encounter-disregard 04/17/2014 Encounter Details Date Type Department Care Team Description 04/17/2014 Refill [facility] Women's Nurse, [facility] Refill Request; Erroneous Clinic [place] encounter-disregard [address] [facility] [address] [place] [phone] Social History Tobacco Use Types Packs/Day [...] Primary documented in this encounter Care Teams Deadener Relationship Specialty Start Date End Date Shari Mann PCP - General 07/12/12 10/07/14 documented as of this encounter
--- OUTSIDE RECORDS SUMMARY | 2022-06-17 09:13 | XMS_ITS | Encounter Summary ---
:1985 Author Organization [facility] Address [address] [place] [address] Care Team Providers Name Role Phone Rashida Pederson APRN RECRUITING ADMINISTRATOR Primary Care Provider [phone] Rashida Pederson APRN RECRUITING ADMINISTRATOR Unavailable [phone] Rashida Pederson APRN RECRUITING ADMINISTRATOR Unavailable [phone] Reason for Visit Reason Comments Medication Problem Encounter Details Date Type Department Care Team Description 06/06/2015 [facility] Akiko Jones, [address] [place], [place] [address] Social History Tobacco Use Types Packs/Day [...] on filedocumented in this encounter Care Teams Booster Pump Oiler Relationship Specialty Start Date End Date Rashida Pederson APRN PCP - General Nurse Practitioner 10/08/14 RECRUITING ADMINISTRATOR [address] [place] [address] Rashida Pederson APRN PCP - Assigned PCP 10/14/14 10/18/18 RECRUITING ADMINISTRATOR [address] [place] [address] Rashida Pederson APRN Assigned PCP 10/14/14 1 09/26/20 [facility] [address] [place] [address] documented as of this encounter
--- OUTSIDE RECORDS SUMMARY | 2022-06-17 09:13 | XMS_ITS | Encounter Summary ---
:1985 Author Organization [place] Address [address] [place] [address] Care Team Providers Name Role Phone Rashida Pederson APRN, CNP Primary Care Provider [phone] Rashida Pederson APRN PACKAGING SPECIALIST Unavailable [phone] BgRashida cornejo APRN PACKAGING SPECIALIST Unavailable [phone] Reason for Visit Reason Onset Date Comments Refill Request 05/13/2015 mary olvrea Encounter Details Date Type Department Care Team Description 05/13/[address] [facility] Rashida Pederson Req uest (wade, [facility] ZIYAD Benitez CNP) [address] [place] [address] [phone] Social History Tobacco Use Types Packs/Day Years [...] when Rx was faxed. She stopped in [facility] yesterday, Rx not there. We called [facility] today, verified did not receive Rx. [...] # refills: 0 Last Office Visit with [facility] primary care provider: 02/07/15 Future Office visit: Controlled substance agreement on file: No. Processing: [facility] Paula Poe RN, BSN Message handled by Nurse Triage. FUTURE APPOINTMENTS: - Follow-up visit in 6 months for physical exam, arrive fasting, future orders placed Telephone Encounter - Paula Poe RN - 05/13/2015 4:02 PM CDT Message from Related Content Database (RCDb): Original authorizing provider: ZIYAD Moore CNP would like a refill of the following medications: LORazepam (ATIVAN) 0.5 MG tablet [Rashida Pederson APRN CNP] escitalopram (LEXAPRO) 20 MG tablet [Rashida Pederson APRN CNP] Preferred pharmacy: [address] Comment: send to [facility] documented in this encounter Plan of Treatment Not on filedocumented as of this encounter Visit Diagnoses Diagnosis Major depressive disorder, recurrent epi sode, mild (H) Major depressive disorder, recurrent epi sode, mild Anxiety Anxiety state, unspecified documented in this encounter Care Teams Fabric Worker Leader Relationship Specialty Start Date End Date Rashida Pederson APRN PCP - General Nurse Practitioner 10/08/14 PACKAGING SPECIALIST [address] [place] [address] Rashida Pederson APRN PCP - Assigned PCP 10/14/14 10/18/18 PACKAGING SPECIALIST [address] [place] [address] Rashida Pederson APRN Assigned PCP 10/14/14 1 09/26/20 PACKAGING SPECIALIST [address] [place] [address] documented as of this encounter
--- OUTSIDE RECORDS SUMMARY | 2022-06-17 09:13 | XMS_ITS | Encounter Summary ---
:1985 Author Organization [place] Address [address] [place] [address] Care Team Providers Name Role Phone Shari Mann Primary Care Provider Bg, Rashida Benitez APRN CENTRAL STERILE TECH Primary Care Provider [phone] BgRashida APRN CENTRAL STERILE TECH Unavailable [phone] BgRashida cornejo APRN CENTRAL STERILE TECH Unavailable [phone] Paty Lewis CNM Unavailable [phone] Reason for Visit Reason Onset Date Comments Refill Request 04/17/2014 Encounter Details Date Type Department Care Team Description 04/17/2014 MyC Refill [facility] Women's Lizzette Randhawa S, Refill Request Clinic [facility] CNM [address] [facility] Professional Bldg [facility] [address] [place] [phone] Social History Tobacco Use Types Packs/Day [...] - 04/17/2014 12:00 PM CDT Message from PAAY: Original authorizing provider: ABDOUL Calvillo Arnulfo would like a refill of the following medications: LORazepam (ATIVAN) 0.5 MG tablet [Fatou Randhawa CNM] Preferred pharmacy: [facility] [address] Comment: documented in this encounter Plan of Treatment Not on filedocumented as of this encounter Visit Diagnoses Diagnosis Panic attacks Panic disorder without agoraphobia documented in this encounter Care Teams Signal Intelligence Analyst Relationship Specialty Start Date End Date Shari Mann PCP - General 07/12/12 10/07/14 Rashida Pederson, PCP - General Nurse Practitioner 10/08/14 PICTURE ENLARGER CENTRAL STERILE TECH [address] [place] [address] Rashida Pederson, PCP - Assigned PCP 10/14/14 10/18/18 PICTURE ENLARGER CENTRAL STERILE TECH [address] [place] [address] Rashida Pederson, Assigned PCP 10/14/14 PICTURE ENLARGER CENTRAL STERILE TECH [address] [place] [address] Paty Lewis Assigned OBGYN Provider 02/28/21 12/13/[address] [place] [address] [address] documented as of this encounter
--- OUTSIDE RECORDS SUMMARY | 2022-06-17 09:13 | XMS_ITS | Encounter Summary ---
:1985 Author Organization [place] Address [address] [place] [address] Care Team Providers Name Role Phone Shrai Mann Primary Care Provider BgRashida APRN PHOTO EDITOR Primary Care Provider [phone] BgRashida APRN PHOTO EDITOR Unavailable [phone] BgRashida cornejo APRN PHOTO EDITOR Unavailable [phone] Paty Lewis CNM Unavailable [phone] Reason for Visit Reason Onset Date Comments Refill Request 04/25/2014 Encounter Details Date Type Department Care Team Description 04/25/2014 Marcelle Refill M [facility] Women's Lizzette Randhawa S, Refill Request Clinic [facility] CN [address] [facility] Professional Bldg [facility] [address] [place] [phone] Social History Tobacco Use Types Packs/Day [...] on filedocumented in this encounter Care Teams Supply Chain Planner Relationship Specialty Start Date End Date Shari Mann PCP - General 07/12/12 10/07/14 Rashida Pederson, PCP - General Nurse Practitioner 10/08/14 OPERATIONS PROJECT MANAGER PHOTO EDITOR [address] [place], [place] [phone] Rashida Pederson, PCP - Assigned PCP 10/14/14 10/18/18 OPERATIONS PROJECT MANAGER PHOTO EDITOR [address] [place] [address] Rashida Pederson, Assigned PCP 10/14/14 OPERATIONS PROJECT MANAGER PHOTO EDITOR [address] [place], [place] [phone] Paty Lewis Assigned OBGYN Provider 02/28/21 12/13/21 ABDOUL Mcgee [address] [id number] documented as of this encounter
--- OUTSIDE RECORDS SUMMARY | 2022-06-17 09:13 | XMS_ITS | Encounter Summary ---
:1985 Author Organization [place] Address [address] [place] [address] Care Team Providers Name Role Phone Shari Mann Primary Care Provider Reason for Visit Reason Comments Vaginal Problem Possible vaginal infection Encounter Details Date Type Department Care Team Description 12/19/2012 Office Visit [facility] Sydnee, Yeast infe ction of [facility] Fatou Sheridan APRN the vagina (Primary [place] CN Dx) [address] [facility] Professional Bldg [facility] [address] [place] [address] Social History Tobacco Use Types [...] with cheesy, white, abnormal secretions. Bartholin's, Urethra, [place]'s glands are normal. Office Wet prep: ph [...] vagina documented in this encounter Care Teams Horticultural Farmer Relationship Specialty Start Date End Date Shari Mann PCP - General 07/12/12 10/07/14 documented as of this encounter
--- OUTSIDE RECORDS SUMMARY | 2022-06-17 09:13 | XMS_ITS | Encounter Summary ---
:1985 Author Organization [place] Address [address] [place] [address] Care Team Providers Name Role Phone Rashida Pederson APRN, CNP Primary Care Provider [phone] Rashida Pederson APRN, CNP Unavailable [phone] Rashida Pederson APRN, CNP Unavailable [phone] Reason for Visit Reason Comments Depression f/u meds, depression Encounter Details Date Type Department Care Team Description 02/07/2015 Office Visit [facility] Rashida Pederson Major depr essive disorder, recurrent episode, mild (H) (Primary Dx); Clinic [place] ZIYAD Benitez Anxiety; [address] [facility] CARDIOVASCULAR SCREENING; LDL GOAL LESS THAN [address] [place] [address] [facility] [address] [place], [place] [phone] Social History Tobacco Use Types Packs/Day Years [...] Body Mass Index 33.46 10/06/2014 8:10 AM JAVA SOFTWARE documented in this encounter Patient Instructions Patient InstructionsRashida Pederson, ZIYAD RED LEADER - 02/07/2015 3:32 PM CDT Images from [...] medication may need to be avoided. ?? 1957-8333 [employer]. [address] [place] [address], [place] [address]. All rights reserved. This information is not [...] 19 - Total Score - 6 PHQ-9 [place] Islander PHQ-9 Any Language GAD7 Problem list and [...] future orders placed. Rashida Pederson APRN CNP [facility] Answers for HPI/ROS submitted by the [...] 160 documented in this encounter Care Teams Security Systems Manager Relationship Specialty Start Date End Date Rashida Pederson APRN PCP - General Nurse Practitioner 10/08/14 RED LEADER [address] [place] [address] Rashida Pederson APRN PCP - Assigned PCP 10/14/14 10/18/18 RED LEADER [address] [place] [address] Rashida Pederson APRN Assigned PCP 10/14/14 1 09/26/20 RED LEADER [address] [place] [address] documented as of this encounter
--- OUTSIDE RECORDS SUMMARY | 2022-06-17 09:13 | XMS_ITS | Encounter Summary ---
:1985 Author Organization [place] Address [address] [place] [address] Care Team Providers Name Role Phone Mann, Shari Primary Care Provider Encounter Details Date Type Department Care Team Description 11/17/2012 Hospital Encounter [facility] Adelaida [facility] Laborato sonu Clayton MD [address] [facility] [address] [place], [place] [address] [place], [place] [phone] [address] (Wo rk) Social History Tobacco Use [...] on filedocumented in this encounter Care Teams Home Care Liaison Relationship Specialty Start Date End Date Shari Mann PCP - General 07/12/12 10/07/14 documented as of this encounter
--- OUTSIDE RECORDS SUMMARY | 2022-06-17 09:13 | XMS_ITS | Encounter Summary ---
:1985 Author Organization [place] Address [address] [place] [address] Care Team Providers Name Role Phone Rashida Pederson APRN, CNP Primary Care Provider [phone] Rashida Pederson APRN GAME MASTER Unavailable [phone] Rashida Pederson APRN GAME MASTER Unavailable [phone] Reason for Visit Reason Onset Date Comments Recheck Medication 11/02/2014 Encounter Details Date Type Department Care Team Description 11/02/2014 Virtual Visit [facility] Rashida Peedrson Panic att ack (Primary Dx); Clinic [place] ZIYAD Benitez Major depression, recurrent (H); [address] [facility] Anxiety [place], [place] [phone] [place] [address] [place], [place] [phone] Social History Tobacco Use Types Packs/Day Years [...] up in 6 [address] CNP [facility] documented in this encounter Plan of Treatment Not on filedocumented as of this encounter Visit Diagnoses Diagnosis Panic attack - Primary Panic disorder without agoraphobia Major depression, recurrent (H) Major depressive disorder, recurrent epi sode, unspecified Anxiety Anxiety state, unspecified documented in this encounter Care Teams Accounting Director Relationship Specialty Start Date End Date Rashida Pederson APRN PCP - General Nurse Practitioner 10/08/14 GAME MASTER [address] [place] [address] Rashida Pederson APRN PCP - Assigned PCP 10/14/14 10/18/18 GAME MASTER [address] [place] [address] Rashida Pederson APRN Assigned PCP 10/14/14 1 09/26/20 GAME MASTER [address] [place] [address] documented as of this encounter
--- OUTSIDE RECORDS SUMMARY | 2022-06-17 09:13 | XMS_ITS | Encounter Summary ---
:1985 Author Organization [facility] Address [address] [place] [address] Care Team Providers Name Role Phone Rashida Pederson ASSEMBLER SKYLIGHTS CAMERA CONTROL OPERATOR Primary Care Provider [phone] Rashida Pederson APRN CAMERA CONTROL OPERATOR Unavailable [phone] BgRashida cornejo APRN CAMERA CONTROL OPERATOR Unavailable [phone] Reason for Visit Reason Onset Date Comments Panel Management 03/28/2015 Encounter Details Date Type Department Care Team Description 03/28/[address] [facility] Rashida Pederson, Panel Management [place] ASSEMBLER SKYLIGHTS CAMERA CONTROL OPERATOR [address] [address] [phone] (Wo rk) Social History Tobacco Use Types [...] AM CDT Pt completed depression questionnaire on [facility] Please advise, score today was higher than score on 02/07/2015. Telephone Encounter - Ilda Phillips CMA - 03/28/2015 9:11 AM CDT Panel Management Review Date of last visit with a [facility] provider: Rashida Pederson on 02/07/2015. Date of next visit with a [facility] provider: None. Problem List Patient Active Problem [...] list: Depression / Dysthymia review PHQ-9 SCORE ([facility]) 10/06/2014 02/07/2015 02/07/2015 Total Score 15 4 [...] she would like questionnaire sentto her on [employer] Questions for provider review: None Please indicate [...] unspecified documented in this encounter Care Teams Coal Chemist Relationship Specialty Start Date End Date Rashida Pederson APRN PCP - General Nurse Practitioner 10/08/14 CAMERA CONTROL OPERATOR [address] [place] [address] Rashida Pederson APRN PCP - Assigned PCP 10/14/14 10/18/18 CAMERA CONTROL OPERATOR [address] [place] [address] Rashida Pederson APRN Assigned PCP 10/14/14 1 09/26/20 CAMERA CONTROL OPERATOR [address] [place] [address] documented as of this encounter
--- OUTSIDE RECORDS SUMMARY | 2022-06-17 09:13 | XMS_ITS | Encounter Summary ---
:1985 Author Organization [place] Address [facility] [place] [address] Care Team Providers Name Role Phone Shari Mann Primary Care Provider Reason for Visit Reason Onset Date Comments Refill Request 10/16/2013 Lorazepam Encounter Details Date Type Department Care Team Description 10/16/2013 Telephone [facility] Women's Nurse, p Whs Refill Request Clinic [place] (Lorazepam) [address] [facility] Professional Bldg [facility] [address] [place] [address] Social History Tobacco Use Types [...] her previous provider Shari Mann NP at [facility] had prescribed it for her [...] refill should be sent to the [facility]. AIGN ASSISTANT Telephone Encounter - Flower Chacko RN - 10/16/2013 12:07 PM CST Message copied by FLOWER CHACKO on WedOct 16, 2013 12:07 PM ------ Message from: MAIA SUN Created: WedOct 16, 2013 11:43 AM Regarding: Pt is requesting a new Rx for Lorazepam Contact: Pt is requesting a new Rx for Lorazepam to be [facility] to the [facility] in [place] [facility]. Please call pt once Rx is sent. Ok to leave a message. Thanks! Maia Campbell AIGN ASSISTANT documented in this encounter Plan of Treatment Not on filedocumented as of this encounter Visit Diagnoses Not on filedocumented in this encounter Care Teams Needle Polisher Relationship Specialty Start Date End Date Shari Mann PCP - General 07/12/12 10/07/14 documented as of this encounter
--- OUTSIDE RECORDS SUMMARY | 2022-06-17 09:13 | XMS_ITS | Encounter Summary ---
:1985 Author Organization [place] Address [facility] [place] [address] Care Team Providers Name Role Phone Shari Mann Primary Care Provider Reason for Visit Reason Onset Date Comments UTI 11/17/2012 Other Encounter Details Date Type Department Care Team Description 11/17/2012 Telephone [facility] Nurse, U Whs UTI; [place] [address] [facility] Profession al [facility] [address] [facility] [address] [place] [phone] Social History Tobacco Use Types Packs/Day [...] and she will have it done at [facility] today. She has been experiencing pain with [...] she has a UTI. Pt works at [employer] so if a Urine culture is to be ordered it can be sent to the Out pt lab there. Pt stated she prefers a Monistat (sp) prescription. Please call pt at [phone] to discuss - ok to leave detailed [...] Component Value Ref Test Analysis Performed At [facility] Range Method Time Signature Specimen Midstream Urine [facility] Description [facility] Special Specimen received [facility] Requests in [...] Performing Organization Address City/[facility]/ZIP Code Phon e Number [facility] [address] [place], [place] [phone] [place] [address] [facility] MICROBIOLOGY (ABNORMAL) Routine UA with Micro Reflex to Culture (11/17/2012 2:00 PM CDT) Component Value Ref Test Analysis Performed At [facility] gist Range Method Time Signature Color Urine Dark Brown [facility] Appearance Urine Slightly [facility] Cloudy [facility] Glucose Urine Negative NEG [facility] mg/dL [facility] Bilirubin Urine Moderate NEG [facility] This is an unconfirmed scre ening test result. A positive result may be false. (A) [facility] Ketones Urine Negative NEG [facility] mg/dL [facility] Specific Banner 1.021 1.003 - [facility] Urine 1.035 [facility] Blood Urine Negative NEG [facility] pH Urine 6.5 5.0 - [facility] 7.0 pH [facility] Protein Albumin 10 (A) NEG [facility] Urine mg/dL [facility] Urobilinogen 4.0 (H) 0.0 - [facility] mg/dL 2.0 [place] mg/dL CAMPUS LABS Nitrite Urine Positive (A) [...] e Number [facility] [address] [place] [address] [facility] documented in this encounter Visit Diagnoses Diagnosis UTI (urinary tract infection) - Primary Urinary tract infection, site not specif ied documented in this encounter Care Teams Clay Maker Relationship Specialty Start Date End Date Shari Mann PCP - General 07/12/12 10/07/14 documented as of this encounter
--- OUTSIDE RECORDS SUMMARY | 2022-06-17 09:13 | XMS_ITS | Encounter Summary ---
:1985 Author Organization [place] Address [address] [place] [address] Care Team Providers Name Role Phone Shari Mann Primary Care Provider Reason for Visit Reason Comments IUD Mirena IUD check Encounter Details Date Type Department Care Team Description 09/11/2013 Office Visit [facility] Sydnee, Mirena IUD (intrauterine device) in place (Primary Dx); [facility] Fatou Sheridan APRN Dysmenorrh ea; [place] [facility] History of pulmonary embolis m; [address] Panic attack [place] Professional Bldg [facility] [address] [place] [address] Social History Tobacco Use Types [...] Comments Blood Pressure 130/81 09/11/2013 10:10 AM INSTRUCTOR ADJUNCT SURGICAL TECHNICIAN Pulse 95 09/11/2013 10:10 AM INSTRUCTOR ADJUNCT SURGICAL TECHNICIAN Temperature - - Respiratory Rate - - Oxygen Saturation - - Inhaled Oxygen Concentration - - Weight 102.3 kg (225 lb 8 oz) 09/11/2013 10:10 AM INSTRUCTOR ADJUNCT SURGICAL TECHNICIAN Height 163.8 cm (5' 4.5) 09/11/2013 10:10 AM INSTRUCTOR ADJUNCT SURGICAL TECHNICIAN Body Mass Index 38.11 09/11/2013 10:10 AM INSTRUCTOR ADJUNCT SURGICAL TECHNICIAN documented in this encounter Patient Instructions Patient InstructionsFatou Randhawa CNM - 09/11/2013 10:20 AM INSTRUCTOR ADJUNCT SURGICAL TECHNICIAN Annual exam due in 2013. Mirena IUD use reminders: Your IUD will need to be removed/replaced by 08/08/2018 CALL [phone] to report: * Bleeding heavier than normal [...] please check the following Web site : [email or web address] You may contact us via My Chart or by [phone] and asking to speak with a BIOINFORMATICS DEVELOPER triage nurse. The nurse will contact me for questions she is not able to answer. Thanks for trusting our providers at [facility] with your health care needs. Fatou Randhawa, MSN, CNM RUCTOR ADJUNCT SURGICAL TECHNICIAN documented in this encounter Progress Notes Fatou Randhawa CNM - 09/11/2013 10:26 AM CST SUBJECTIVE: Logan Arredondo is a 28 [...] lesions, erythema or abnormal secretions. Bartholin's, Urethra, [place]'s glands are normal. Vagina: moist, pink, rugae [...] C and CC Fatou Randhawa, MSN, CNM RUCTOR ADJUNCT SURGICAL TECHNICIAN documented in this encounter Nursing Notes 09/11/2013 [...] agoraphobia documented in this encounter Care Teams Plant Floor Automation Manager Relationship Specialty Start Date End Date Shari Mann PCP - General 07/12/12 10/07/14 documented as of this encounter
--- OUTSIDE RECORDS SUMMARY | 2022-06-17 09:13 | XMS_ITS | Encounter Summary ---
:1985 Author Organization [place] Address [address] [place] [address] Care Team Providers Name Role Phone Mann, Shari Primary Care Provider Reason for Visit Reason Onset Date Comments Results 11/03/2013 Encounter Details Date Type Department Care Team Description 11/03/[address] [facility] Women's Sharron Tyler, Results Clinic [facility] [address] NO INFO AVAILABLE [place] Professional Bldg 06/04/2022 [facility] [address] [place], [place] [phone] Social History Tobacco Use [...] site documented in this encounter Care Teams Head Of Mathematics Relationship Specialty Start Date End Date Shari Mann PCP - General 07/12/12 10/07/14 documented as of this encounter
--- OUTSIDE RECORDS SUMMARY | 2022-06-17 09:13 | XMS_ITS | Encounter Summary ---
:1985 Author Organization [place] Address [address] [place] [address] Care Team Providers Name Role Phone Shari Mann Primary Care Provider Bg, Rashida Benitez APRN SOCIAL PROFESSIONALS Primary Care Provider [phone] BgRashida APRN [employer] PROFESSIONALS Unavailable [phone] BgRashida cornejo APRN [employer] PROFESSIONALS Unavailable [phone] Paty Lewis CNM Unavailable Reason for Visit Reason Onset Date Comments Refill Request 08/01/2014 Ativan Encounter Details Date Type Department Care Team Description 08/01/2014 MyC Refill [facility] Fatou Randhawai ll Request [facility] SZIYAD CNM (Ativan) [place] [address] [facility] Professional Bldg [facility] [address] [place] [address] Social History Tobacco Use Types Packs/Day Years Used Date Smoking Tobacco: Former Cigarettes 0.5 5 Quit : 07/19/2012 Smokeless Tobacco: Never Alcohol Use Standard Drinks/Week Comments Yes 0 (1 standard drink = 0.6 oz pure alcoho l) 1-4d 1x/wk Sex Assigned at Date Recorded Not on file documented as of this encounter Miscellaneous Notes Telephone Encounter - Callie aHrvey, RN - 08/02/2014 1:53 PM PROGRAM RESEARCH SPECIALIST Message from [place]: Original authorizing provider: ABDOUL Calvillo Madhavkasi would like a refill of the following medications: LORazepam (ATIVAN) 0.5 MG tablet [Fatou Randhawa CNM] Preferred pharmacy: [address] Comment: its about that time again, I have about 10 left. 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
--- OUTSIDE RECORDS SUMMARY | 2022-06-17 09:13 | XMS_ITS | Encounter Summary ---
:1985 Author Organization [place] Address [facility] [place] [address] Care Team Providers Name Role Phone Shari Mann Primary Care Provider Reason for Visit Reason Onset Date Comments Refill Request 05/31/2014 Other Encounter Details Date Type Department Care Team Description 05/31/[address] [facility] Lizzette Randhawa [facility]ill [facility]; [facility] [address] [facility] Professional Bldg [facility] [address] [place] [phone] Social History Tobacco Use Types Packs/Day [...] without further refill. Preferred pharmacy: [id number] [address] I sent My Chart reply to patient that you would take care of it. 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
--- OUTSIDE RECORDS SUMMARY | 2022-06-17 09:13 | XMS_ITS | Encounter Summary ---
:1987 Author Organization [place] Address [address] [place] [address] Care Team Providers Name Role Phone Shari Mann Primary Care Provider Reason for Visit Reason Onset Date Comments Refill Request 08/21/2014 ativan Encounter Details Date Type Department Care Team Description 08/21/2014 Refill [facility] Women's Nurse, p Whs Refill Request (ativan) Clinic [address] [facility] [address] [place], [place] [address] Social History Tobacco Use Types Packs/Day [...] medication. Change made and med called in. 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
--- OUTSIDE RECORDS SUMMARY | 2022-06-17 09:13 | XMS_ITS | Encounter Summary ---
:1985 Author Organization [place] Address [address] [place] [address] Care Team Providers Name Role Phone Mann, Shari Primary Care Provider Encounter Details Date Type Department Care Team Description 11/02/2013 Radiant Appointment [facility] jerrell IUD (intrauterine device) in place; Center Dysmenorrhea [facility] 1st Floor, Clinic [address] [place], [place] [address] Social History Tobacco Use Types [...] Dysmenorrhea documented in this encounter Care Teams Representative Personal Service Relationship Specialty Start Date End Date Shari Mann PCP - General 07/12/12 10/07/14 documented as of this encounter
--- OUTSIDE RECORDS SUMMARY | 2022-06-17 09:13 | XMS_ITS | Encounter Summary ---
:1985 Author Organization [place] Address [address] [place] [address] Care Team Providers Name Role Phone Shari Mann Primary Care Provider Rashida Pederson APRN TRANSITION ADVISOR Primary Care Provider [phone] BgRashida conrejo APRN TRANSITION ADVISOR Unavailable [phone] Rashida Pederson APRN TRANSITION ADVISOR Unavailable [phone] Paty Lewis [facility] Unavailable [phone] Encounter Details Date Type Department Care Team [...] on filedocumented in this encounter Care Teams Human Resources Office Assistant Relationship Specialty Start Date End Date Shari Mann PCP - General 07/12/12 10/07/14 Rashida Pederson, PCP - General Nurse Practitioner 10/08/14 MARKETING SYSTEMS ANALYST TRANSITION ADVISOR [address] [place], [place] [phone] Rashida Pederson, PCP - Assigned PCP 10/14/14 10/18/18 MARKETING SYSTEMS ANALYST TRANSITION ADVISOR [address] [place], [place] [phone] Rashida Pederson, Assigned PCP 10/14/14 MARKETING SYSTEMS ANALYST TRANSITION ADVISOR [address] [place], [place] [phone] Paty Lewis Assigned OBGYN Provider 02/28/21 12/13/21 ABDOUL Mcgee [address] [place] [address] [address] documented as of this encounter
--- OUTSIDE RECORDS SUMMARY | 2022-06-17 09:13 | XMS_ITS | Encounter Summary ---
:1985 Author Organization [place] Address [address] [place] [address] Care Team Providers Name Role Phone Rashida Pederson APRN, CNP Primary Care Provider [phone] Rashida Pederson APRN STATISTICAL SECRETARY Unavailable [phone] Rashida Pederson APRN STATISTICAL SECRETARY Unavailable [phone] Reason for Visit Reason Onset Date Comments Patient Request 11/02/2014 double book med chec k 4:30 PM today Encounter Details Date Type Department Care Team Description [facility]/02[facility] [place] ZIYAD Benitez CNP book med check 4:[address] [place] [address] today) [place] [address] [phone] Social History Tobacco Use Types Packs/Day Years [...] 11/02/2014 1:19 PM CDT appt scheduled Diana Ozuna/Negative Cutter Telephone Encounter - Ebony De Guzman MA [...] - 11/02/2014 9:06 AM CDT Logan morin, [facility] scheduled recommended 4 week follow up with Rashida at our electrician front after clinic visit Oct 06. Pt requests double book with Rashida at 4:30 PM today. She was not aware she was NOT scheduled to see Rashida, [facility] hand lens polisher made error. Please advise. Logan [phone] Jose Angel Marte RN documented in this encounter Plan of Treatment Not on filedocumented as of this encounter Visit Diagnoses Not on filedocumented in this encounter Care Teams Hardboard Factory Worker Relationship Specialty Start Date End Date Rashida Pederson APRN PCP - General Nurse Practitioner 10/08/14 STATISTICAL SECRETARY [address] [place] [address] Rashida Pederson APRN PCP - Assigned PCP 10/14/14 10/18/18 STATISTICAL SECRETARY [address] [place] [address] Rashida Pederson APRN Assigned PCP 10/14/14 1 09/26/20 [facility] [address] [place] [address] documented as of this encounter
--- OUTSIDE RECORDS SUMMARY | 2022-06-17 09:13 | XMS_ITS | Encounter Summary ---
:1985 Author Organization [place] Address [facility] [place] [address] Care Team Providers Name Role Phone Shari Mann Primary Care Provider Reason for Visit Reason Onset Date Comments Patient Request 12/16/2012 BV med Encounter Details Date Type Department Care Team Description 12/16/2012 Telephone [facility] Women's Nurse, [facility] Patient Request (BV med) Clinic [address] Professional Bldg [facility] [address],[facility] [address] [place] [address] Social History Tobacco Use Types [...] CDT Preferred pharmacy is OP pharmacy at [facility]. Telephone Encounter - Fallon Ramon RN [...] on filedocumented in this encounter Care Teams Casing Runner Relationship Specialty Start Date End Date Shari Mann PCP - General 07/12/12 10/07/14 documented as of this encounter
--- OUTSIDE RECORDS SUMMARY | 2022-06-17 09:13 | XMS_ITS | Encounter Summary ---
:1985 Author Organization [place] Address [address] [place] [address] Care Team Providers Name Role Phone Rashida Pederson APRN SHIFT SUPERVISOR Primary Care Provider [phone] Rashida Pederson APRN SHIFT SUPERVISOR Unavailable [phone] Rashida Pederson APRN SHIFT SUPERVISOR Unavailable [phone] Reason for Visit Reason Comments Physical Encounter Details Date Type Department Care Team Description 06/06/2015 Office Visit - [facility] Akiko Jones Healt h care maintenance; [facility] History of pulmonary embolism; [place] [address] Anxiety; [address] [place], [place] Need for immunization agains t influenza [place], [place] [phone] Social History Tobacco Use Types Packs/Day [...] Component Value Ref Test Analysis Performed At [facility] Range Method Time Signature Case Report Gynecologic Cytology Report ? Case: [id number] ? 06/20/2015 HEALTH 10:04 AM MARCELO Authorizing Provider: ??Akiko Jones NP ?Ordering Provider: ? JAVA PROGRAMMER ANALYST RAFFAELE AYDIN'S Ordering Location: ? [facility] ?? Collected: ? 06/06/2015 1346 ? LABORAT ORY ? Family Medicine/OB ? First Screen: ? MARV Paige (ASCP) ?? Received: ?06/07/2015 1015 ? Specimen: ?SUREPATH PAP, SCREENING, Endocervical/cervical ? Interpretation Negative for squamous intraepithelial lesion or abi gnancy 06/20/2015 [facility] 10:04 AM [facility] Result Flag Normal Normal 06/20/2015 [facility] 10:04 AM [facility] Specimen Adequacy Satisfactory for 06/20/2015 [facility] evaluation, 10:04 AM GRADY endocervical/choi [facility] sformation zone LABORATORY component present Reflex Testing Yes if Abnormal 06/20/2015 [facility] 10:04 AM [facility] High Risk? No 06/20/2015 [facility] 10:04 AM [facility] Abnormal Bleeding No 06/20/2015 [facility] 10:04 AM [facility] Patient Status NA 06/20/2015 [facility] 10:04 AM [facility] IUD-Hormone 06/20/2015 [facility] Control/Hormones 10:04 AM [facility] Previous none 06/20/2015 [facility] Abnormal? 10:04 AM [facility] Cervical normal 06/20/2015 [facility] Appearance 10:04 AM [facility] JAVA PROGRAMMER ANALYST [facility] Specimen Anatomical Collection Method Collection Time Receive d Time (Source) Location / / Volume Laterality Specimen of CERVIX UTERI 06/06/2015 1:46 PM 5 unknown material STRUCTURE / CDT 10:15 AM CD T (specimen) Unknown Narrative This result has an attachment that is no t available. Akiko Jones SHIFT SUPERVISOR LAB - ALEIDA MCKEON Performing Organization Address City/State/ZIP Code Phon e [place] [address] [address] [facility] documented in this encounter Visit Diagnoses Diagnosis Health care maintenance Unspecified general medical examination History of pulmonary embolism Personal history of pulmonary embolism Anxiety Anxiety state, unspecified Need for immunization against influenza Need for prophylactic vaccination and in oculation against influenza documented in this encounter Care Teams Co Founder And Chairman Relationship Specialty Start Date End Date Rashida Pederson APRN PCP - General Nurse Practitioner 10/08/14 SHIFT SUPERVISOR [address] [place] [address] Rashida Pederson APRN PCP - Assigned PCP 10/14/14 10/18/18 SHIFT SUPERVISOR [address] [place] [address] Rashida Pederson APRN Assigned PCP 10/14/14 1 09/26/20 SHIFT SUPERVISOR [address] [place] [address] documented as of this encounter
--- OUTSIDE RECORDS SUMMARY | 2022-06-17 09:14 | XMS_ITS | Encounter Summary ---
:1985 [facility] Address [address] [place] [address] Home Phone Mobile Phone Email Address Email Address Preferred Language Tamazight Marital Status Single Amish Affiliation Unknown Race White Ethnic Group Unknown Author Organization [place] Address [address] [place] [address] Care Team Providers Name Role Phone Shari Mann Primary Care Provider Reason for Visit Reason Onset Date Comments Anticoagulation 10/11/2012 Encounter Details Date Type Department Care Team Description 10/11/[address] [facility] Dmitri Zamora , Anticoagulation Anticoagulation Clin ic [facility] [address] [place], [place] [phone] [facility] [phone] [place] [address] [place] [address] (Wo rk) Social History Tobacco Use [...] Pineda, Pharm D IV / Acosta Zamora [facility] NIA REFRIGERATION TECHNICIAN documented in this encounter Plan of Treatment Not on filedocumented as of this encounter Visit Diagnoses Not on filedocumented in this encounter Care Teams Mine Technician Relationship Specialty Start Date End Date Shari Mann PCP - General 07/12/12 10/07/14 documented as of this encounter
--- OUTSIDE RECORDS SUMMARY | 2022-06-17 09:14 | XMS_ITS | Encounter Summary ---
:1985 Author Organization [place] Address [address] [place] [address] Care Team Providers Name Role Phone Shari Mann Primary Care Provider Encounter Details Date Type Department Care Team Description 10/25/2012 Orders Only [facility] Betito Vincent PA-C PE (pulmonary [address] embo lism) (H) Laboratory [address] [place] [phone] (Wo rk) Social History Tobacco Use [...] Signature INR 2.32 (H) 0.86 - 1.14 [facility] LABS Specimen Anatomical Collection Method Collection Time Receive d Time (Source) Location / / Volume Laterality Blood specimen 10/25/2012 12:44 3 (specimen) PM CDT 12:45 PM CDT Patricia Moe APRN WAREHOUSE FREIGHT HANDLER LAB - BLOOD ORDERABLES Performing Organization Address City/State/ZIP Code Phon e Number [facility] [address] LABS documented in this encounter Visit Diagnoses Diagnosis PE (pulmonary embolism) Other pulmonary embolism and infarction documented in this encounter Care Teams Homeland Security Program Specialist Relationship Specialty Start Date End Date Shari Mann PCP - General 07/12/12 10/07/14 documented as of this encounter
--- OUTSIDE RECORDS SUMMARY | 2022-06-17 09:14 | XMS_ITS | Encounter Summary ---
:1985 Author Organization [place] Address [address] [place] [address] Care Team Providers Name Role Phone Shari Mann Primary Care Provider Reason for Visit Reason Onset Date Comments Anticoagulation 08/15/2012 Encounter Details Date Type Department Care Team Description 08/15/2012 Telephone [facility] Tiffanie Fernandes, Anticoagulation Anticoagulation Clin ic [place] [phone] Social History Tobacco Use Types Packs/Day Years Used Date Smoking Tobacco: Former Cigarettes 0.5 5 Quit : 07/19/2012 Smokeless Tobacco: Never Alcohol Use Standard Drinks/Week Comments Yes 0 (1 standard drink = 0.6 oz pure alcoho l) occasionally Sex Assigned at Date Recorded Not on file documented as of this encounter Miscellaneous Notes Telephone Encounter - Tiffanie Fernandes, [facility] - 08/15/2012 9:16 AM CST Current Warfarin [...] message Results Given By: Tiffanie Fernandes PHARMD ANIC MARINE ENGINE documented in this encounter Plan of Treatment Not on filedocumented as of this encounter Visit Diagnoses Not on filedocumented in this encounter Care Teams Fiction Writer Relationship Specialty Start Date End Date Shari Mann PCP - General 07/12/12 10/07/14 documented as of this encounter
--- OUTSIDE RECORDS SUMMARY | 2022-06-17 09:14 | XMS_ITS | Encounter Summary ---
:1985 Author Organization [place] Address [address] [place] [address] Care Team Providers Name Role Phone Shari Mann Primary Care Provider Reason for Visit Reason Onset Date Comments Anticoagulation 10/25/2012 Encounter Details Date Type Department Care Team Description 10/25/2012 Telephone [facility] Saad Andres RN Anticoagulation Anticoagulation Clin [place] [phone] Social History Tobacco Use Types Packs/Day [...] on filedocumented in this encounter Care Teams Junior Loan Processor Relationship Specialty Start Date End Date Shari Mann PCP - General 07/12/12 10/07/14 documented as of this encounter
--- OUTSIDE RECORDS SUMMARY | 2022-06-17 09:14 | XMS_ITS | Encounter Summary ---
:1985 Author Organization [place] Address [address] [place] [address] Care Team Providers Name Role Phone Shari Mann Primary Care Provider Encounter Details Date Type Department Care Team Description 09/05/2012 Orders Only [facility] Betito Vincent PA-C PE (pulmonary [facility] [address] [facility] embo lism) (H) Laboratory [address] [place], [place] [phone] (Wo rk) Social History Tobacco Use [...] 5:30 PM PE (pulmonary Results for this RECEIVING MANAGER embolism) (H) procedure are in the results section . documented in this encounter Results (ABNORMAL) INR (09/05/2012 5:30 PM RECEIVING MANAGER) athologist Signature INR 1.79 (H) 0.86 - 1.14 [facility] LABS Specimen Anatomical Collection Method Collection Time Receive d Time (Source) Location / / Volume Laterality Blood specimen 09/05/2012 5:30 PM 013 5:31 (specimen) RECEIVING MANAGER PM RECEIVING MANAGER Patricia Moe APRN PATROL SUPERVISOR LAB - BLOOD ORDERABLES Performing Organization Address City/State/ZIP Code Phon e Number [facility] [address] LABS documented in this encounter Visit Diagnoses Diagnosis PE (pulmonary embolism) Other pulmonary embolism and infarction documented in this encounter Care Teams Turning Lathe Tender Relationship Specialty Start Date End Date Shari Mann PCP - General 07/12/12 10/07/14 documented as of this encounter
--- OUTSIDE RECORDS SUMMARY | 2022-06-17 09:14 | XMS_ITS | Encounter Summary ---
:1985 Author Organization [place] Address [address] [place] [address] Care Team Providers Name Role Phone Shari Mann Primary Care Provider Reason for Visit Reason Onset Date Comments Call to schedule test 10/13/2012 LM pt cannot be se en [facility] staff retreat Encounter Details Date Type Department Care Team Description 10/13/2012 Telephone [facility], Chrissy crawford Y, PAAkhilC Call to schedule test [facility] [address] [facility] [address] [facility] (LM pt cannot be seen 6th Floor, Clinic [phone] [facility] staff retreat) [place], [place] Building [address] [place] [address] [place] [address] Social History Tobacco Use Types [...] on filedocumented in this encounter Care Teams Cafeteria Counter Attendant Relationship Specialty Start Date End Date Shari Mann PCP - General 07/12/12 10/07/14 documented as of this encounter
--- OUTSIDE RECORDS SUMMARY | 2022-06-17 09:14 | XMS_ITS | Encounter Summary ---
:1985 Author Organization [place] Address [address] [place] [address] Care Team Providers Name Role Phone Shari Mann Primary Care Provider Reason for Visit Reason Onset Date Comments Anticoagulation 09/06/2012 Encounter Details Date Type Department Care Team Description 09/06/2012 Telephone [facility] Isabel Dominguez, Anticoagulation Anticoagulation Clin ic RN [address] [place] [phone] Social History Tobacco Use Types Packs/Day [...] left Results Given By: Isabel Dominguez RN NSED AIRCRAFT MAINTENANCE ENGINEER documented in this encounter Plan of Treatment Not on filedocumented as of this encounter Visit Diagnoses Not on filedocumented in this encounter Care Teams Accountant Budget Relationship Specialty Start Date End Date Shari Mann PCP - General 07/12/12 10/07/14 documented as of this encounter
--- OUTSIDE RECORDS SUMMARY | 2022-06-17 09:14 | XMS_ITS | Encounter Summary ---
:1985 Author Organization [place] Address [address] [place] [address] Care Team Providers Name Role Phone Shari Mann Primary Care Provider Reason for Visit Reason Comments Physical Pap due, GC/Clam, wet prep Encounter Details Date Type Department Care Team Description 11/09/2012 Office Visit [facility] Sydnee Gynecologi c exam normal (Primary Dx); [facility] Fatou Sheridan APRN BV (bacter ial vaginosis); [facility] Routine screening for STI (s exually transmitted infection) [address] [facility] Professional Bldg [facility] [address] [place] [address] Social History Tobacco Use Types [...] net ball. Pat dry or use a driver wheelchair on a cool setting to dry the [...] you are going. Small amounts of Extra Markesan olive oil, vegetable oil, zinc oxide ointment [...] further irritates vulvar skin. Do NOT use xhjb-yrp-njtjsuk creams or ointments until you ask your [...] amount of pure vegetable oil or Extra Markesan [place] oil to your vulva with the tips of your fingers. [place] oil or coconut oil may also be used UNLESS YOU experience irritation. These oils contain no chemicals to irritate vulvar/vaginal skin. These oils will rinse away with water and will not increase your chances of infection. Kdap-xph-agllgdl, water-based lubricants tend to dry out before [...] through spring and during summer unless you rrio99-22' full body sun exposure to skin without [...] treatment and prevention of sexually contacted infections. WWW.health.state.[place] : [place] dept of heat, public health issues in [place], N1N1 WWW.familydoctor.org : good info from the Academy of Family Physicians documented in this encounter Progress Notes Fatou Randhawa CNM - 11/09/2012 8:15 AM CDT SUBJECTIVE: Padma Arredonod is an 27 year old Female, , who requests an Annual MULTIMEDIA SPECIALIST Preventive Health Care Exam. Referred by Dr. Aldrich. Dreams of becoming a Converter Supervisor and opening a clinic with her sister! Concerns today include: 1) Intermittent chronic yeast infections x 2 years; symptoms partially relieved with OTC Monistat; current symptoms include itchiness and odorous discharge, and, 2) requesting STD screening. Patient's last menstrual period was 10/30/2012. Cycles Q 35-38 days (pt uncertain of exact timeframe) for 3-4 days. Current method of contraception is abstinence Last pap at [facility] in [place] in 2000 was negative; no abnormal pap [...] Boateng Of Lemuel Works with Elinor at [facility] Social History Main Topics ??? [...] secretions with pubic hair shaven. Bartholin's, Urethra, Ferguson's normal. Vagina: moist, pink, rugae with creamy, [...] Preventive Care Exam 1. Gynecologic exam normal ([id number]) Wet Prep POCT 2. BV (bacterial vaginosis) [...] agreement with visit plan. With patient consent, DNP/DYE RANGE FEEDER student,Cherelle Kay, RN MSN, conducted visit with [...] Component Value Ref Test Analysis Performed At [facility] Method Time Signature Specimen Cervical [facility] LAB N Gonorrhea Negative for N. gonorrhoeae rRNA by asset analyst mediated amplification. [facility] PCR A negative result by transc ription mediated amplification does not preclude the [place] presence of N. gonorrhoeae infection because re [...] MICRO GENERAL ORDER SUSHMA Performing Organization Address City/[facility]/ZIP Code Phon e Number [address] [facility] LABS Chlamydia PCR (11/09/2012 9:00 AM CDT) Component Value Ref Test Analysis Performed At [facility] Method Time Signature Specimen Cervical [facility] Chlamydia Negative for C. trachomatis rRNA by asset analyst mediated amplification. [facility] Trachomatis A negative result by transc ription mediated amplification does not preclude the [place] PCR presence of C. trachomatis infection because [...] MICRO GENERAL ORDER SUSHMA Performing Organization Address City/[facility] Code Phon e Number [address] [facility] LABS PAP imaged thin layer, diagnostic (11/09/2012 12:00 AM CDT) Component Value Ref Test Analysis Performed At [facility] Method Time Signature PAP NIL COPATH Copath Report COPATH Patient Name: PADMA BARGER MR#: [id number] Specimen #: [id number] Collected: 11/09/2012 Received: 11/10/2012 Reported: 11/11/2012 14:09 [...] MARV Mahoney (ASCP) Processed and screened at [facility] CLINICAL HISTORY: LMP: 10/30/2012 Papanicolaou Test Limitations: ??Cervical cytology is a scre ening test with limited sensitivity; regular screening is critical for cancer prevention; Pap tests are primarily effective for the diagnosis/prevention of squamous cell carcinoma, not adenoca rcinomas or other cancers. TESTING LAB LOCATION: [address] ??[id number] COLLECTION SITE: Client: ??[facility] Location: EBONI (David) Specimen (Source) Anatomical Collection Method Collection Time Re ceived Time Location / / Volume Laterality Cytologic 11/09/2012 11/10/2012 12:4 5 material PM CDT (specimen) Fatou Randhawa PUBLISHING SPECIALIST CNM LAB - [facility] Performing Organization Address City/State/ZIP Code Phon e Number [place] documented in this encounter Visit Diagnoses Diagnosis Gynecologic exam normal - Primary Reserved for inherently not codable conc epts WITHOUT codable children BV (bacterial vaginosis) Vaginitis and vulvovaginitis, unspecifie d Routine screening for STI (sexually choi smitted infection) Screening examination for venereal disea se documented in this encounter Care Teams Orthopedic Physician Relationship Specialty Start Date End Date Shari Mann PCP - General 07/12/12 10/07/14 documented as of this encounter
--- OUTSIDE RECORDS SUMMARY | 2022-06-17 09:14 | XMS_ITS | Encounter Summary ---
:1985 Author Organization [place] Address [address] [place] [address] Care Team Providers Name Role Phone Shari Mann Primary Care Provider Encounter Details Date Type Department Care Team Description 08/15/2012 Orders Only [facility] Betito Vincent PA-C PE (pulmonary [facility] [address] [facility] embo lism) (H) Laboratory [address] [place], [place] [phone] (Wo rk) Social History Tobacco Use [...] 8:43 AM PE (pulmonary Results for this SIGNAL WIRER embolism) (H) procedure are in the results section . documented in this encounter Results (ABNORMAL) INR (08/15/2012 8:43 AM SIGNAL WIRER) athologist Signature INR 2.38 (H) 0.86 - 1.14 [facility] LABS Specimen Anatomical Collection Method Collection Time Receive d Time (Source) Location / / Volume Laterality Blood specimen 08/15/2012 8:43 AM 012 8:44 (specimen) SIGNAL WIRER AM SIGNAL WIRER Patricia Moe APRN PLASTIC PRESS MOLDER LAB - BLOOD ORDERABLES Performing Organization Address City/State/ZIP Code Phon e Number [facility] [address] LABS documented in this encounter Visit Diagnoses Diagnosis PE (pulmonary embolism) Other pulmonary embolism and infarction documented in this encounter Care Teams Management And Budget Analyst Relationship Specialty Start Date End Date Shari Mann PCP - General 07/12/12 10/07/14 documented as of this encounter
--- OUTSIDE RECORDS SUMMARY | 2022-06-17 09:14 | XMS_ITS | Encounter Summary ---
:1985 Author Organization [place] Address [address] [place] [address] Care Team Providers Name Role Phone Shari Mann Primary Care Provider Reason for Visit Reason Comments Hematology Patient with PE on anticoagu lation with Coumadin Encounter Details Date Type Department Care Team Description 10/28/2012 Office Visit [facility] Vincent Y, Jose F y of pulmonary and Clotting Disorde rs PA-C embolism (Primary Dx) 6th Floor, Clinic [address] [place] [address] [place] [address] [phone] (Work) [phone] Social History Tobacco Use Types Packs/Day Years [...] [facility] know your decision regarding continuing Coumadin [phone]). 2. Call the [facility] with and bleeding or clotting questions ([phone]). documented in this encounter Progress Notes Betito Vincent PA-C - 10/28/2012 4:26 PM CDT [facility] Out[facility] Visit Note: Patient: Logan Arredondo MRN; [id number] : 1985 ADRIANA: October 28, 2012 Location: [facility] Reason: Pulmonary embolism 3 months ago. Here [...] increase chest pain. [facility] and eventually she was accompanied [...] years. 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 She smokes about 1/2 a [...] of care. Betito Vincent PA-C, MPAS Physician Margarine Churn Operator [facility]. [facility]. CC: [...] the anticoagulation monitoring clinic here at the [facility]. Patient verbalized understanding of the above information. [...] embolism documented in this encounter Care Teams Director Business Intelligence Relationship Specialty Start Date End Date Shari Mann PCP - General 07/12/12 10/07/14 documented as of this encounter
--- OUTSIDE RECORDS SUMMARY | 2022-06-17 09:14 | XMS_ITS | Encounter Summary ---
:1985 Author Organization [place] Address [address] [place] [address] Care Team Providers Name Role Phone Johnathan Shari Primary Care Provider Encounter Details Date Type Department Care Team Description 08/10/2012 Orders Only [facility] Patricia Moe, PE (p ulmonary [facility] [place] FURNITURE UPHOLSTERY MECHANIC WINCHER embolism) (H) Laboratory XXX RETIRED XXX [address] [phone] [place] [address] (Wo rk) Social History Tobacco [...] 8:44 AM PE (pulmonary Results for this WOODWIND INSTRUMENT REPAIRER embolism) (H) procedure are in the results section . documented in this encounter Results (ABNORMAL) INR (08/10/2012 8:44 AM WOODWIND INSTRUMENT REPAIRER) athologist Signature INR 3.01 (H) 0.86 - 1.14 [facility] LABS Specimen Anatomical Collection Method Collection Time Receive d Time (Source) Location / / Volume Laterality Blood specimen 08/10/2012 8:44 AM 012 8:45 (specimen) WOODWIND INSTRUMENT REPAIRER AM WOODWIND INSTRUMENT REPAIRER Patricia Moe APRN [place] LAB - BLOOD ORDERABLES Performing Organization Address City/State/ZIP Code Phon e Number [phone] [place] [address] LABS documented in this encounter Visit Diagnoses Diagnosis PE (pulmonary embolism) Other pulmonary embolism and infarction documented in this encounter Care Teams Multiplex Operator Relationship Specialty Start Date End Date Shari Mann PCP - General 07/12/12 10/07/14 documented as of this encounter
--- OUTSIDE RECORDS SUMMARY | 2022-06-17 09:14 | XMS_ITS | Encounter Summary ---
:1985 Author Organization [place] Address [address] [place] [address] Care Team Providers Name Role Phone Shari Mann Primary Care Provider Reason for Visit Reason Onset Date Comments Anticoagulation 08/03/2012 Encounter Details Date Type Department Care Team Description 08/03/2012 Telephone [facility] Isabel Dominguez, Anticoagulation Anticoagulation Clin ic RN [address] [phone] Social History Tobacco Use Types Packs/Day [...] Logan Results Given By: Isabel Dominguez RN INSPECTOR documented in this encounter Plan of Treatment Not on filedocumented as of this encounter Visit Diagnoses Not on filedocumented in this encounter Care Teams Marble Cleaner Relationship Specialty Start Date End Date Shari Mann PCP - General 07/12/12 10/07/14 documented as of this encounter
--- OUTSIDE RECORDS SUMMARY | 2022-06-17 09:14 | XMS_ITS | Encounter Summary ---
:1985 Author Organization [place] Address [address] [place] [address] Care Team Providers Name Role Phone Shari Mann Primary Care Provider Encounter Details Date Type Department Care Team Description 09/19/2012 Orders Only [facility] Betito Vincent PA-C PE (pulmonary [facility] [address] [place] [address] [facility] embo lism) (H) Laboratory 713 [address] [place] [phone] (Wo rk) Social History Tobacco Use [...] 1:07 PM PE (pulmonary Results for this STEEL WHEEL ENGRAVER embolism) (H) procedure are in the results section . documented in this encounter Results (ABNORMAL) INR (09/19/2012 1:07 PM STEEL WHEEL ENGRAVER) athologist Signature INR 2.39 (H) 0.86 - 1.14 [facility] LABS Specimen Anatomical Collection Method Collection Time Receive d Time (Source) Location / / Volume Laterality Blood specimen 09/19/2012 1:07 PM 013 1:08 (specimen) STEEL WHEEL ENGRAVER PM STEEL WHEEL ENGRAVER Patricia Moe APRN CAROUSEL OPERATOR LAB - BLOOD ORDERABLES Performing Organization Address City/State/ZIP Code Phon e Number [facility] [address] LABS documented in this encounter Visit Diagnoses Diagnosis PE (pulmonary embolism) Other pulmonary embolism and infarction documented in this encounter Care Teams Bookmaker Map Relationship Specialty Start Date End Date Shari Mann PCP - General 07/12/12 10/07/14 documented as of this encounter
--- OUTSIDE RECORDS SUMMARY | 2022-06-17 09:14 | XMS_ITS | Encounter Summary ---
:1985 Author Organization [place] Address [address] [place] [address] Care Team Providers Name Role Phone Shari Mann Primary Care Provider Encounter Details Date Type Department Care Team Description 08/23/2012 Orders Only [facility] Sunitha Yeison PE (pulmon [facility] MD Umer embolism) (H) Laboratory 420 [facility] [address] [place] [phone] (Wo rk) Social History Tobacco Use Types [...] 9:00 AM PE (pulmonary Results for this PRIMARY COUNSELOR embolism) (H) procedure are in the results section . documented in this encounter Results (ABNORMAL) INR (08/23/2012 9:00 AM PRIMARY COUNSELOR) P athologist Signature INR 2.03 (H) 0.86 - 1.14 [facility] LABS Specimen Anatomical Collection Method Collection Time Receive d Time (Source) Location / / Volume Laterality Blood specimen 08/23/2012 9:00 AM 013 9:01 (specimen) PRIMARY COUNSELOR AM PRIMARY COUNSELOR Patricia Moe APRN TALENT DIRECTOR LAB - BLOOD ORDERABLES Performing Organization Address City/State/ZIP Code Phon e Number [facility] [address] [place], [place] [phone] [place] [address] LABS documented in this encounter Visit Diagnoses Diagnosis PE (pulmonary embolism) Other pulmonary embolism and infarction documented in this encounter Care Teams Art Display Maker Relationship Specialty Start Date End Date Shari Mann PCP - General 07/12/12 10/07/14 documented as of this encounter
--- OUTSIDE RECORDS SUMMARY | 2022-06-17 09:14 | XMS_ITS | Encounter Summary ---
:1985 Author Organization [place] Address [address] [place] [address] Care Team Providers Name Role Phone Shari [...] on filedocumented in this encounter Care Teams Pensionholder Information Clerk Relationship Specialty Start Date End Date Shari Mann PCP - General 07/12/12 10/07/14 documented as of this encounter
--- OUTSIDE RECORDS SUMMARY | 2022-06-17 09:14 | XMS_ITS | Encounter Summary ---
:1985 Author Organization [place] Address [address] [place] [address] Care Team Providers Name Role Phone Shari Mann Primary Care Provider Encounter Details Date Type Department Care Team Description 08/02/2012 Orders Only [facility] Betito Vincent PA-C PE (pulmonary [facility] [address] [place] [address] [facility] embo lism) (H) Laboratory 713 [address] [place], [place] [phone] (Wo rk) Social History Tobacco Use [...] 5:27 PM PE (pulmonary Results for this CHIP SEPARATOR embolism) (H) procedure are in the results section . documented in this encounter Results (ABNORMAL) INR (08/02/2012 5:27 PM CHIP SEPARATOR) athologist Signature INR 1.68 (H) 0.86 - 1.14 [facility] LABS Specimen Anatomical Collection Method Collection Time Receive d Time (Source) Location / / Volume Laterality Blood specimen 08/02/2012 5:27 PM 012 5:28 (specimen) CHIP SEPARATOR PM CHIP SEPARATOR Patricia Moe APRN WASH TUB MACHINE OPERATOR LAB - BLOOD ORDERABLES Performing Organization Address City/State/ZIP Code Phon e Number [facility] [address] LABS documented in this encounter Visit Diagnoses Diagnosis PE (pulmonary embolism) Other pulmonary embolism and infarction documented in this encounter Care Teams Card Seller Relationship Specialty Start Date End Date Shari Mann PCP - General 07/12/12 10/07/14 documented as of this encounter
--- OUTSIDE RECORDS SUMMARY | 2022-06-17 09:14 | XMS_ITS | Encounter Summary ---
:1985 Author Organization [place] Address [address] [place] [address] Care Team Providers Name Role Phone Shari Mann Primary Care Provider Reason for Visit Reason Onset Date Comments Anticoagulation 08/23/2012 Encounter Details Date Type Department Care Team Description 08/23/2012 Telephone [facility] Saad Andres, RN Anticoagulation Anticoagulation Clin [place] [phone] Social History Tobacco Use Types Packs/Day [...] doses Results Given By: SAAD ANDRES RN ANY TRUCK DRIVER documented in this encounter Plan of Treatment Not on filedocumented as of this encounter Visit Diagnoses Not on filedocumented in this encounter Care Teams Charm Filter Operator Helper Relationship Specialty Start Date End Date Shari Mann PCP - General 07/12/12 10/07/14 documented as of this encounter
--- OUTSIDE RECORDS SUMMARY | 2022-06-17 09:14 | XMS_ITS | Encounter Summary ---
:1985 Author Organization [place] Address [address] [place] [address] Care Team Providers Name Role Phone Shari Mann Primary Care Provider Reason for Visit Reason Onset Date Comments Anticoagulation 09/19/2012 Encounter Details Date Type Department Care Team Description 09/19/2012 Telephone [facility] Saad Andres RN Anticoagulation Anticoagulation Clin [place] [phone] Social History Tobacco Use Types Packs/Day [...] doses Results Given By: SAAD ANDRES RN OMER ACQUISITION SPECIALIST documented in this encounter Plan of Treatment Not on filedocumented as of this encounter Visit Diagnoses Not on filedocumented in this encounter Care Teams Client Support Associate Relationship Specialty Start Date End Date Shari Mann PCP - General 07/12/12 10/07/14 documented as of this encounter
--- OUTSIDE RECORDS SUMMARY | 2022-06-17 09:14 | XMS_ITS | Encounter Summary ---
:1985 Author Organization [place] Address [address] [place] [address] Care Team Providers Name Role Phone Shari Mann Primary Care Provider Reason for Visit Reason Onset Date Comments Anticoagulation 08/10/2012 Encounter Details Date Type Department Care Team Description 08/10/2012 Telephone [facility] Saad Andres, RN Anticoagulation Anticoagulation Clin [place] [phone] Social History Tobacco Use Types Packs/Day [...] message at home number to call if [facility], meds, diet, dosing or missed doses Results Given By: SAAD ANDRES RN ASS PLANT MANAGER documented in this encounter Plan of Treatment Not on filedocumented as of this encounter Visit Diagnoses Not on filedocumented in this encounter Care Teams Tobacco Scrap Sifter Relationship Specialty Start Date End Date Shari Mann PCP - General 07/12/12 10/07/14 documented as of this encounter
--- OUTSIDE RECORDS SUMMARY | 2022-06-17 09:15 | XMS_ITS | Encounter Summary ---
:1985 Author Organization [place] Address [address] [place] [address] Care Team Providers Name Role Phone Shari Mann Primary Care Provider Encounter Details Date Type Department Care Team Description 07/20/2012 Orders Only [facility] Betito Vincent PA-C PE (pulmonary [address] [facility] embo lism) (H) Laboratory [address] [place] [phone] (Wo rk) Social History Tobacco Use [...] 1:10 PM PE (pulmonary Results for this DIRECTOR OF RESEARCH CENTER embolism) (H) procedure are in the results section . documented in this encounter Results (ABNORMAL) INR (07/20/2012 1:10 PM DIRECTOR OF RESEARCH CENTER) athologist Signature INR 1.93 (H) 0.86 - 1.14 [facility] LABS Specimen Anatomical Collection Method Collection Time Receive d Time (Source) Location / / Volume Laterality Blood specimen 07/20/2012 1:10 PM 012 1:11 (specimen) DIRECTOR OF RESEARCH CENTER PM DIRECTOR OF RESEARCH CENTER Patricia Moe APRN BATON TWIRLER LAB - BLOOD ORDERABLES Performing Organization Address City/State/ZIP Code Phon e Number [facility] [address] [place], [place] [phone] [place] [address] LABS documented in this encounter Visit Diagnoses Diagnosis PE (pulmonary embolism) Other pulmonary embolism and infarction documented in this encounter Care Teams Training Mgr Relationship Specialty Start Date End Date Shrai Mann PCP - General 07/12/12 10/07/14 documented as of this encounter
--- OUTSIDE RECORDS SUMMARY | 2022-06-17 09:15 | XMS_ITS | Encounter Summary ---
:1985 [facility] Address [address] [place] [address] Home Phone Mobile Phone Email Address Email Address Preferred Language Occitan Marital Status Single Amish Affiliation Unknown Race White Ethnic Group Unknown Author Organization [place] Address [address] [place] [address] Care Team Providers Name Role Phone Shari Mann Primary Care Provider Encounter Details Date Type Department Care Team Description 07/25/2012 Orders Only [facility] Betito Vincent PA-C PE (pulmonary embolism) (H); [facility] [address] Hist ory of pulmonary embolism Laboratory [address] [place] [phone] (Wo rk) Social History Tobacco Use Types [...] Priority Associated Diagnoses Date/Ti me F2 prothrombin 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 PROTEIN S ANTIGEN Routine 07/25/2012 12:53 History of Result s for this FREE PM DRUM STENCILER pulmonary embolism procedure are in the results section. PROTEIN C CHROMOGENIC Routine 07/25/2012 12:53 History of Re sults for this PM DRUM STENCILER pulmonary embolism procedure are in the results section. FACTOR 5 LEIDEN Routine 07/25/2012 12:53 History of MUTATION ANALYSIS PM DRUM STENCILER pulmonary embolism ANTITHROMBIN III Routine 07/25/2012 12:53 History of Results for this PM DRUM STENCILER pulmonary embolism procedure are in the results section. FACTOR 2 AND 5 Routine 07/25/2012 12:40 Results f or this MUTATION ANALYSIS PM DRUM STENCILER procedure are in the results section. documented in this encounter Results Antithrombin III (07/25/2012 12:53 PM DRUM STENCILER) Analysis Performed At Patho logist Time Signature Antithrombin III 90 83 - 125 % [facility] LAB[facility] Specimen Anatomical Collection Method Collection Time Receive d Time (Source) Location / / Volume Laterality Blood specimen 07/25/2012 12:53 2 (specimen) PM DRUM STENCILER 12:54 PM DRUM STENCILER Betito Vincent PA-C LAB - BLOOD ORDERABLES Performing Organization Address City/State/ZIP Code Phon e Number [facility] [address] [place], [place] [phone] [place] [address] LABS (ABNORMAL) Protein C chromogenic (07/25/2012 12:53 PM DRUM STENCILER) Analysis Performed At Patho logist Time Signature Prot C 49 (L) 70 - 130 % [facility] [employer] [facility] LABS Comment: (Note) This patient has a [...] als o be helpful. Maritza Royal M.D. ??[phone] . 07/26/2012, 13:06 Specimen Anatomical Collection Method Collection Time Receive d Time (Source) Location / / Volume Laterality Blood specimen 07/25/2012 12:53 2 (specimen) PM DRUM STENCILER 12:54 PM DRUM STENCILER Betito Y Carlton VIDES LAB - BLOOD ORDERABLES Performing Organization Address City/State/ZIP Code Phon e Number [facility] [address] [place] [address] [facility] LABS (ABNORMAL) Protein S free (07/25/2012 12:53 PM DRUM STENCILER) athologist Signature Protein S Free 54 (L) 55 - 125 % [facility] LABS Comment: Analyte Specific Reagents (ASRs) are use d in many laboratory tests necessary for standard medical care and generally do not require FDA approval. ??This test was developed and its performance character istics determined by [facility]. ? ?It has not been [...] als o be helpful. Maritza Royal M.D. ??[phone] . 07/26/2012, 13:07 CORRECTED ON 07/26 AT 1437: PREVIOUSLY R EPORTED 54 Analyte Specific Reagents (ASRs) are used in many laboratory test s necessary for standard medical care and generally do not require FDA approv al. ??This test was developed and its performance characteristics determined by [facility]. ??It has not bee n cleared or approved by the [place] Food and Drug Administration. Specimen Anatomical Collection Method Collection Time Receive d Time (Source) Location / / Volume Laterality Blood specimen 07/25/2012 12:53 2 (specimen) PM DRUM STENCILER 12:54 PM DRUM STENCILER Betito Vincent PA-C LAB - BLOOD ORDERABLES Performing Organization Address City/[facility]/ZIP Code Phon e Number [facility] [address] LABS (ABNORMAL) INR (07/25/2012 12:53 PM DRUM STENCILER) P athologist Signature INR 2.37 (H) 0.86 - 1.[address] [facility] [place] LABS Specimen Anatomical Collection Method Collection Time Receive d Time (Source) Location / / Volume Laterality Blood specimen 07/25/2012 12:53 2 (specimen) PM DRUM STENCILER 12:54 PM DRUM STENCILER Patricia Ritikalenore Moe APRN LINOLEUM PRINTER LAB - BLOOD ORDERABLES Performing Organization Address City/State/ZIP Code Phon e Number [address] LABS Factor 2 and 5 mutation analysis (07/25/2012 12:40 PM DRUM STENCILER) Component Value Ref Test Analysis Performed At Patholo gist Range Method Time Signature Copath Report Patient Name: LOGAN BARGER MR#: [id number] Specimen #: [id number] Collected: 07/25/2012 12:40 Received: 07/26/2012 08:54 Reported: 07/29/2012 16:59 Ordering Phy(s): SHARI MANN TEST(S) REQUESTED: A: Factor 5 Leiden and Factor 2 by PCR B: DNA Isolation, High purity extraction SPECIMEN DESCRIPTION: Blood CLINICAL COMMENTS: History of pulmonary embolism METHODOLOGY: ?? The regions of genomic DNA containing the G1 691A Factor 5 gene mutation (Factor V Leiden) and the Factor 2(Prothrombin J85626P) gene mutation were simultaneously amplified using the polyme rase chain reaction. ??The amplified products were digested with restri ction endonuclease TaqI and products were analyzed by gel electrop horesis. RESULTS: Factor V 1691G>A (Leiden) ??RESULTS: Mutation analyzed: ? 1691G>A Factor V 1691G>A (Leiden) ??Interpretation: ?ABSENT Factor V 1691G>A (Leiden) mutation ??genotype: ?G/G FACTOR 2/PROTHROMBIN RESULTS: Mutation analyzed: ? 26347O>A Factor 2 Mutation Interpretation: ?ABSENT Factor 2 Mutation genotype: ?G/G INTERPRETATION: The patient is negative for the Factor V 1691G>A (Leiden) an d negative for the Factor 2 mutation. This test was developed and its performance determined by [facility] ??Molecular Diagnostic Laboratory. It has not been [...] Schneider MD, PhD ??[facility] TESTING LAB LOCATION: [address] [phone] COLLECTION SITE: Client: ??[facility] Location: ??[facility] (B) Specimen Anatomical Collection Method Collection Time Receive d Time (Source) Location / / Volume Laterality 07/25/2012 12:40 07/26/2012 8:54 PM DRUM STENCILER AM DRUM STENCILER Shari Mann LAB - GENOMICS Performing Organization Address City/State/ZIP Code Phon e Number [facility] documented in this encounter Visit Diagnoses Diagnosis PE (pulmonary embolism) Other pulmonary embolism and infarction History of pulmonary embolism Personal history of pulmonary embolism documented in this encounter Care Teams Eating Disorder Psychologist Relationship Specialty Start Date End Date Shari Mann PCP - General 07/12/12 10/07/14 documented as of this encounter
--- OUTSIDE RECORDS SUMMARY | 2022-06-17 09:15 | XMS_ITS | Encounter Summary ---
:1985 Author Organization [place] Address [address] [place] [address] Care Team Providers Name Role Phone Shari Mann Primary Care Provider Encounter Details Date Type Department Care Team Description 07/28/2012 Orders Only [facility] Jeffry Ramirez PE (pulmonary [facility] [address] embo lism) (H) Laboratory [address] [facility] [place], [place] [phone] Social History Tobacco Use Types Packs/Day [...] 2:38 PM PE (pulmonary Results for this SHREDDER TENDER embolism) (H) procedure are in the results section . documented in this encounter Results (ABNORMAL) INR (07/28/2012 2:38 PM SHREDDER TENDER) P athologist Signature INR 2.16 (H) 0.86 - 1.14 [facility] LABS Specimen Anatomical Collection Method Collection Time Receive d Time (Source) Location / / Volume Laterality Blood specimen 07/28/2012 2:38 PM 012 2:39 (specimen) SHREDDER TENDER PM SHREDDER TENDER Patricia Moe APRN QUARTER BACKER LAB - BLOOD ORDERABLES Performing Organization Address City/State/ZIP Code Phon e Number [facility] [address] [place], [place] [phone] [place] [address] LABS documented in this encounter Visit Diagnoses Diagnosis PE (pulmonary embolism) Other pulmonary embolism and infarction documented in this encounter Care Teams Bicycle Ii Assembler Relationship Specialty Start Date End Date Shari Mann PCP - General 07/12/12 10/07/14 documented as of this encounter
--- OUTSIDE RECORDS SUMMARY | 2022-06-17 09:15 | XMS_ITS | Encounter Summary ---
:1985 Author Organization [facility] Address [address] [place] [id number] Care Team Providers Name Role Phone Mann, Shari Primary Care Provider Reason for Referral - Closed Specialty Diagnoses / Procedures Referred By Contact Refer red To Contact Diagnoses History of pulmonary embolism Betito Vincent PA-C [address] [facility] [address] [facility] [address] [place], [place] [address] Referral ID Status Reason Start Date Expiration Date Visits Requ ested Visits Authorized [id number] Closed 07/22/2012 01/18/2013 1 1 [place] DEPARTMENT RESET Reason for Visit Reason Comments Hematology Patient with recent pulmonar y embolism here for hypercoagulable work up Encounter Details Date Type Department Care Team Description 07/22/2012 Office Visit [facility] Betito Vincent Histor y of pulmonary and Clotting Disorde rs PA-C embolism (Primary Dx) 6th Floor, Clinic [address] [place] [facility] [address] [place] [address] [place], [place] [phone] (Work) [phone] Social History Tobacco Use Types Packs/Day Years Used Date Smoking Tobacco: Former Cigarettes 0.5 5 Quit : 07/19/2012 Smokeless Tobacco: Never Alcohol Use Standard Drinks/Week Comments Yes 0 (1 standard drink = 0.6 oz pure alcoho l) occasionally Sex Assigned at Date Recorded Not on file documented as of this encounter Progress Notes Betito Vincent PA-C - 08/29/2012 4:48 PM CST [place] Betito Vincent PA-C - 08/29/2012 4:47 PM CST [place] Betito Vincent PA-C - 07/22/2012 12:50 PM CST [facility] Outpatient Visit Note: Patient: Logan Arredondo : 1985 ADRIANA: July 22, 2012 Location: [facility] Reason: Recent bilateral pulmonary embolism. HPI: This [...] She had her INR checked once at [place] (her primary care physician) office and once here at [facility] on 07/20/2012 (which was 1.93). Her dosing [...] 2 years. 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 She smokes about 1/2 a [...] a pulmonary embolic event while hiking in [place]. ROS: Denies any shortness of breath. No [...] will have her established care with the [facility] INR monitoring clinic (Referral sent via [employer]). We recommend that she should avoid the [...] of care. Betito Vincent PA-C, MPAS Physician [facility]. [facility]. CC: Primary care physician. [place] DE[place] documented in this encounter Nursing Notes 07/22/2012 [...] Orders completed and referral made to the [facility] for INR monitoring. Patient [...] embolism documented in this encounter Care Teams Personnel Adviser Relationship Specialty Start Date End Date Shari Mann PCP - General 07/12/12 10/07/14 documented as of this encounter
--- OUTSIDE RECORDS SUMMARY | 2022-06-17 09:15 | XMS_ITS | Encounter Summary ---
:1985 Author Organization [place] Address [address] [place] [address] Care Team Providers Name Role Phone Shari Mann Primary Care Provider Reason for Referral Specialty Diagnoses / Procedures Referred By Contact Refer red To Contact [facility] [address] [place] [address] [phone] Referral ID Status Reason Start Date Expiration Date Visits Requ ested Visits Authorized ET SPRINKLER Reason for Visit Reason Comments Chest Pain Shortness of Breath Auth/Cert - Closed Specialty Diagnoses / Procedures Referred By Contact Refer red To Contact Med Surg Diagnoses Pulmonary infarction (H) Pulmonary embolism (H) [id number] (pulmonary embolism)[id number] Uu U[address]b [address] [place] [address] Phone: Referral ID Status Reason Start Date Expiration Date Visits Requ ested Visits Authorized [id number] Closed 07/13/2012 01/09/2013 1 1 Encounter Details Date Type Department Care Team Description 07/12/2012 - Hospital Encounter [facility] Mak Roach MD [address] [place] [address] Pulmonary embolism (H) (Primary Dx); 07/14/2012 [facility] [address] Milo Sanchez MD [facility] [address] [facility] [address] [place] [id number] Pulmonary infarction (H); Lashaun Bush MD 2019 [facility] [address] [place] [phone] PE (pulmonary embolism) (H); [facility] [address] [place] [address] Chest pain; [place] [address] Tila Carr MD XXX RESIGNED XXX [address] [place], [place] [id number] Constipation; [phone] GERD (gastroeso phageal reflux disease) Social History [...] Comments Blood Pressure 116/69 07/14/2012 2:[address] SPRINKLER Pulse 92 07/14/2012 2:[address] SPRINKLER Temperature 37.2 ??C (98.9 ??F) 07/14/2012 2:[address] SPRINKLER Respiratory Rate 16 07/14/2012 2:[address] SPRINKLER Oxygen Saturation 94% 07/14/2012 2:[address] SPRINKLER Inhaled Oxygen Concentration - - Weight 101.1 kg (222 lb 14.4 oz) 07/14/2012 4:[address] SPRINKLER Height 165.1 cm (5' 5) 07/13/2012 12:[address] SPRINKLER Body Mass Index 37.09 07/13/2012 12:[address] SPRINKLER documented in this encounter Discharge Summaries Tila Carr MD - 07/14/2012 5:12 PM CST [facility] Discharge Summary Padma Arredondo Age: [age] year old Date of : 1985 Date of Admission: 07/12/2012 Date of Discharge: 07/14/2012 Admitting Physician: Milo Nelson MD Discharge Physician: Tila Carr MD Contact: Discharging Service: [facility] Primary Provider: Shari Mann [address] [address] Discharge Disposition: Discharged to home Condition on Discharge: Discharge condition: Stable Code status on discharge: Full Code Admission Diagnoses: Pulmonary infarction [415.19] Pulmonary embolism [415.19] [id number] (pulmonary embolism)[id number] Pulmonary embolism and infarction [415.19] Principle Discharge [...] please do not hesitate to contact the [facility] Family Medicine team via the hospital morrow on which we are stationed. Macho Holland [facility], [facility] - [phone] Attestation: This patient has been seen and evaluated by me, Tila Carr MD. Seen and discussed with theresident Dr Holland and the care team. I agree with the findings and plan in this note. I have reviewed today's vital signs, medications,imaging and labs. Code for today's visit :55781 Inpatient discharge code <30 minutes Tila Carr MD MD 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 ## Bilateral PE: Pt had dyspnea tachynea [...] : Pending clinical improvement. Macho Holland MD [facility]--PGY2 [phone] Attestation: This patient has been seen and evaluated by me, Tila Carr MD. Seen and discussed with theresident Dr Holland and the care team. I agree with the findings and plan in this note. I have reviewed today's vital signs, medications,imaging and labs. 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 AVSS. On heparin drip at 1700-units per hr. Plan is to dc heparin drip at 1600. She is on BID Lovenox 100mg SQ. Reported off to incoming nurse. ET SPRINKLER Peter Hernandez RN - 07/13/2012 2:51 PM [...] and lovenox teaching. Notify Mf ofany changes. 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 ## Bilateral PE: Pt had dyspnea tachynea [...] : Pending clinical improvement. Macho Holland MD [facility]--PGY2 [phone] Attestation: This patient has been seen and evaluated by me, April Sam MD. Seen and discussed with the resident Dr Holland and the care team. I agree with the findings and plan in this note. I have reviewed today's vital signs, medications,labs. Code for today's visit :82016 Inpatient Subsequent Moderate complexity/severity April Sam MD MD [facility] ET SPRINKLER April Villagomez RN - 07/13/2012 1:22 AM CST Pt. Arrived to via bed from the ED with SOB and left shoulder pain. Pt ambulated independently tobed. Pt complains of left shoulder sharp/constant pain and lower back pain. 0.4mg Dilaudid PRN given. Pt. on RA sating >92%. A&Ox4. Tachycardic 100-110. Pt. Oriented to room and call light. ET SPRINKLER documented in this encounter H&P Notes Lashaun Newberry MD - 07/13/2012 1:10 AM CST Images from the original note were not included. 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 Pleuritic in character, 04/25 last night, now 610. Worsened by deep inspiration. No relieving factors. Had SOB, Dizziness. She also coughed up small amount of blood yesterday.Pt thought might have been a Panic attack. Was escorted from [facility] this evening to ER. Has nausea, [...] significant other. 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 Patient Active Problem List Diagnoses ??? PE [...] PGY-2 Family Medicine [facility], [place] Pager : [phone] Attestation: This patient has been seen and evaluated by me, Lashaun Newberry. Seen and discussed with the resident Dr Tran and the care team. I agree with the findings and plan in this note. Note: seen on 07/12/2012ut note signed 07/13/2012. I have reviewed today's vital signs, medications,labs. My edits in blue. Code for today's visit :44828 Inpatient admission High complexity/severity Lashaun Newberry MD [facility] [phone] ET SPRINKLER documented in this encounter Consult Notes Jeramy [...] with her significant other. 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 2. Hepatomegaly. ASSESSMENT: Padma is a 26-year-old female with no significant [...] to make an appt). Yeison Helton MD journalism teacher Division of Hematology, Oncology, and Transplantation Director, [facility] MT: CD Name: PADMA BARGER Account: [id number] : 1985 Consult Date: 07/13/2012 Document: [id number] ET SPRINKLER documented in this encounter ED Notes Suman Hill RN - 07/12/2012 10:45 PM CST MD at bedside. ET SPRINKLER Suman Hill RN - 07/12/2012 10:16 PM CST Attempted to call report. ET SPRINKLER Mak Roach MD - 07/12/2012 6:27 PM [...] and Surgical History, and Social History inthe [place] system. Review of Systems Constitutional: Negative for [...] sinus rhythm Rate: Tachycardic rate of 106 [place]: NORMAL Ectopy: none Conduction: normal ST Segments/ T Waves: No ST-T wave changes Q Waves: none Comparison to prior: No old EKG available Clinical Impression: sinus tachycardia. Critical Care time: 45 min [facility] Diagnoses: None Labs Ordered and Resulted from [...] inpatient bed. Case discussed with the admitting tobacco blender. She is hemodynamically stable. Critical Care time was 45 minutes for this patient excluding procedures. I have reviewed the nursing notes. I have reviewed the findings, diagnosis, plan and need for follow up with the patient. New Prescriptions No medications on file Final diagnoses: Pulmonary embolism Pulmonary infarction Pulmonary emboli. 07/12/2012 [facility] [place], EMERGENCY DEPARTMENT Mak Roach MD 07/12/12 8592 ET SPRINKLER Paula Church RN - 07/12/2012 6:01 PM CST Pt in for complaints of chest pain and SOB starting last noc. Pt reports pain in the left upper chest and shoulder and new pain in the left lower back. Pt reports recent hx of family stressors and reports she has taken an ativan at home with no relief in sx. ET SPRINKLER documented in this encounter Miscellaneous Notes Plan of Care - Ethel Amezcua RN - 07/15/2012 12:04 AM CST Problem: IP GENERAL POC-ADULT,OB,BEHAVIORAL FVCPM Goal: Individualization/Patient-Specific Goal (Adult,OB,Behavioral The patient and/or their food service sales representatives will achieve their patient-specific goals related to [...] with her family from home around 1900. ET SPRINKLER Plan of Care - April Ramirez, PT - 07/14/2012 5:42 PM CST Problem: General Rehab Plan of Care Goal: Physical Therapy Goals The patient and/or their food service sales representatives will achieve their patient-specific goals related to [...] goals. Recommendation(s): No further therapy is recommended. ET SPRINKLER Plan of Care - Meghna Cao RN - 07/14/2012 1:32 PM CST Problem: IP GENERAL POC-ADULT,OB,BEHAVIORAL FVCPM Goal: Individualization/Patient-Specific Goal (Adult,OB,Behavioral The patient and/or their food service sales representatives will achieve their patient-specific goals related to [...] lower limb ultrasound. Possible discharge later today. ET SPRINKLER Plan of Care - Angela Arroyo RN - 07/14/2012 6:31 AM CST Problem: IP GENERAL POC-ADULT,OB,BEHAVIORAL FVCPM Goal: Individualization/Patient-Specific Goal (Adult,OB,Behavioral The patient and/or their food service sales representatives will achieve their patient-specific goals related to [...] Angela Arroyo 6:30 AM July 14, 2012 ET SPRINKLER Plan of Care - Ethel Amezcua RN - 07/13/2012 11:20 PM CST Problem: IP GENERAL POC-ADULT,OB,BEHAVIORAL FVCPM Goal: Individualization/Patient-Specific Goal (Adult,OB,Behavioral The patient and/or their food service sales representatives will achieve their patient-specific goals related to [...] came to at the change of shift [id number]. Vitals are stable. Is up ad mj in her room. Received 7.5 of coumadin A. Continues with pain P. Continue to monitor and continue plan of care ET SPRINKLER Plan of Care - Pablo Cantor, PT - 07/13/2012 8:38 AM CST Problem: General Rehab Plan of Care Goal: Physical Therapy Goals The patient and/or their food service sales representatives will achieve their patient-specific goals related to the plan of care. The patient-specific goals include: PT 6B: Patient cancel. Patient has PE and has not been on Heparin drip for 24 hours yet therefore inappropriate until time period has elapsed. ET SPRINKLER Plan of Care - April Villagomez RN - 07/13/2012 7:11 AM CST Problem: IP GENERAL POC-ADULT,OB,BEHAVIORAL FVCPM Goal: Individualization/Patient-Specific Goal (Adult,OB,Behavioral The patient and/or their food service sales representatives will achieve their patient-specific goals related to [...] 1130. Warfarin ordered and given at 0600. ET SPRINKLER Pharmacy-Anticoagulation Service - Umer Marin [facility] - 07/13/2012 5:20 AM CST Clinical Pharmacy- [...] procedure or if the INR goals change. ET SPRINKLER Pharmacy-Admission Medication History - Pili Grant RPH - 07/12/2012 9:29 PM CST Admission medication history interview status for the 07/12/2012 admission is complete. See [facility] admission navigator for allergy information, prior to admission medications and immunization status. Medication history interview source(s):Patient Medication history resources (including written lists, pill bottles, clinic record):None Medication history source reliability:Good Primary pharmacy: [facility] Pneumococcal and influenza vaccine history documented: yes Changes made to MARKETING PROGRAMS MANAGER medication list: Added: none Deleted: none Changed: [...] by mouth every 8 hours as needed. ET SPRINKLER documented in this encounter Plan of Treatment Pending Results Name Type Priority Associated Diagnoses Date/Ti me INR AND PTT PANEL Lab Routine 07/12/2012 7:[address] SPRINKLER Scheduled Referrals Name Type Priority Associated Diagnoses Order S [facility] INR Clinic Referral Referral Routine Pulmonary em bolism (H) Ordered: 07/14/2012 Pulmonary infarction (H) documented as of this encounter Procedures Procedure Name Priority Date/Time Associated Comments Diagnosis US LOWER EXTREMITY Routine 07/14/2012 1:27 PM Res ults for this VENOUS DUPLEX BILATERAL STREET SPRINKLER proc edure are in the results section. CBC WITH PLATELETS & Routine 07/14/2012 6:06 AM R esults for this DIFFERENTIAL STREET SPRINKLER procedure are i n the results section. INR Routine 07/14/2012 6:06 AM Results f or this STREET SPRINKLER procedure are i n the results section. HEPARIN 10A LEVEL Routine 07/14/2012 6:06 AM Resu lts for this STREET SPRINKLER procedure are i n the results section. BASIC METABOLIC PANEL Routine 07/14/2012 6:06 AM Results for this STREET SPRINKLER procedure are i n the results section. GLUCOSE BY METER Routine 07/13/2012 5:38 PM Resul ts for this STREET SPRINKLER procedure are i n the results section. HEPARIN 10A LEVEL Timed 07/13/2012 1:28 PM Resu lts for this STREET SPRINKLER procedure are i n the results section. HEPARIN 10A LEVEL Routine 07/13/2012 6:51 AM Resu lts for this STREET SPRINKLER procedure are i n the results section. HEPARIN 10A LEVEL STAT 07/13/2012 4:18 AM Resu lts for this STREET SPRINKLER procedure are i n the results section. BASIC METABOLIC PANEL Routine 07/13/2012 4:18 AM Results for this STREET SPRINKLER procedure are i n the results section. CT CHEST PULMONARY STAT 07/12/2012 8:57 PM Res ults for this EMBOLISM W CONTRAST STREET SPRINKLER procedur e are in the results section. ISTAT CREATININE POCT Routine 07/12/2012 7:52 PM Results for this STREET SPRINKLER procedure are i n the results section. HCG QUALITATIVE URINE STAT 07/12/2012 7:26 PM Results for this POCT STREET SPRINKLER procedure are i n the results section. INR AND PTT PANEL Routine 07/12/2012 7:[address] SPRINKLER CBC WITH PLATELETS & STAT 07/12/2012 7:23 PM R esults for this DIFFERENTIAL STREET SPRINKLER procedure are i n the results section. TROPONIN I STAT 07/12/2012 7:23 PM Results f or this STREET SPRINKLER procedure are i n the results section. INR Routine 07/12/2012 7:23 PM Results f or this STREET SPRINKLER procedure are i n the results section. PARTIAL THROMBOPLASTIN Routine 07/12/2012 7:23 PM Results for this TIME STREET SPRINKLER procedure are i n the results section. BASIC METABOLIC PANEL STAT 07/12/2012 7:23 PM Results for this STREET SPRINKLER procedure are i n the results section. EKG 12-LEAD, TRACING STAT 07/12/2012 6:55 PM R esults for this ONLY STREET SPRINKLER procedure are i n the results section. HIM ECG SCAN Routine 07/12/2012 6:[address] SPRINKLER documented in this encounter Results US Venous lower extremity bilat (07/14/2012 1:[address] SPRINKLER) Anatomical Region Laterality Modality Vascular, Thigh, Leg Other Specimen (Source) Anatomical Collection Method Collection Time Re ceived Time Location / / Volume Laterality 07/14/2012 1:[address] SPRINKLER Impressions 07/14/2012 4:[address] SPRINKLER Impression: 1. Color Doppler ultrasound of both lowe r extremities with no evidence of deep venous thrombosis. KRYSTAL ALVAREZ Narrative 07/14/2012 4:[address] SPRINKLER Examination is known to have a pulmonary [...] Heparin Xa (10a) Level (07/14/2012 6:[address] SPRINKLER) P athologist Signature Heparin 10A 0.70 IU/mL [facility] LABS Comment: Therapeutic Range: ?? UFH: ?? 0.15-0.35 IU/mL for low ?intensity dosing ?0.30-0.70 IU/mL for high ?intensity dosing ?? LMWH: ??1.00-2.00 IU/mL if 4-6 h ?post daily dosing ?0.60-1.00 IU/mL if 4-6 h ?post twice a day dosin g Specimen Anatomical Collection Method Collection Time Receive d Time (Source) Location / / Volume Laterality Blood specimen 07/14/2012 6:06 AM 012 6:14 (specimen) STREET SPRINKLER AM STREET SPRINKLER Karel Tran MD LAB - BLOOD ORDERABLES Performing Organization Address City/[facility] Code Phon e Number [address] LABS (ABNORMAL) INR (07/14/2012 6:[address] SPRINKLER) P athologist Signature INR 1.49 (H) 0.86 - 1.14 [facility] LABS Specimen Anatomical Collection Method Collection Time Receive d Time (Source) Location / / Volume Laterality Blood specimen 07/14/2012 6:06 AM 012 6:13 (specimen) STREET SPRINKLER AM STREET SPRINKLER Karel Tran MD LAB - BLOOD ORDERABLES Performing Organization Address City/[facility] Phon e Number [address] LABS Basic metabolic panel (07/14/2012 6:[address] SPRINKLER) P athologist Signature Sodium 140 133 - 144 [facility] mmol/L [place] LABS Potassium 4.2 3.4 - 5.3 [facility] mmol/L [place] [facility]S Chloride 108 94 - 109 [facility] mmol/L [place] [facility] Carbon Dioxide 24 20 - 32 [facility] mmol/L [place] [facility] Anion Gap 8 6 - 17 [facility] mmol/L [place] [facility] Glucose 95 60 - 99 [facility] mg/dL [facility]AMP[facility] LABS Urea Nitrogen 8 5 - 24 [facility] mg/dL [place] [facility]S Creatinine 0.61 0.52 - [facility] 1.04 mg/dL [facility]AMP[facility] LAB[facility] GFR Estimate >90 >60 [facility] mL/min/1.7 [facility]AMP[facility] LABS m2 GFR Estimate If >90 >60 [facility] mL/min/1.7 [facility] m2 Calcium 8.6 8.5 - 10.4 [facility] mg/dL [facility] LABS Specimen Anatomical Collection Method Collection Time Receive d Time (Source) Location / / Volume Laterality Blood specimen 07/14/2012 6:06 AM 012 6:13 (specimen) STREET SPRINKLER AM STREET SPRINKLER Macho Holland MD LAB - BLOOD ORDERABLES Performing Organization Address City/State/ZIP Code Phon e Number [facility] [address] [place], [place] [id number] [place] [address] LABS CBC with platelets differential (07/14/2012 6:[address] SPRINKLER) [facility] Method Time Signature WBC 7.0 4.0 - [facility] 11.0 [facility] 10e9/L [place] LABS RBC Count 4.21 3.8 - 5.2 [facility] 10e12/L [facility] LABS Hemoglobin 12.5 11.7 - [facility] 15.7 g/dL [facility] LABS Hematocrit 37.6 35.0 - [facility] 47.0 % [facility] LAB[facility] MCV 89 78 - [facility] MCH 29.7 26.5 - [facility] 33.0 pg [facility] LABS MCHC 33.2 31.5 - [facility] 36.5 g/dL [facility] LABS RDW 12.4 10.0 - [facility] 15.0 % [facility] LABS Platelet Count 237 150 - 450 [facility] 10e9/L [facility] LABS Diff Method Automated [facility] Method [facility] LABS % Neutrophils 48.4 40 - 75 % [facility] LABS % Lymphocytes 39.9 20 - 48 % [facility] LABS % Monocytes 9.3 0 - 12 % [facility] LABS % Eosinophils 2.0 0 - 6 % [facility] LABS % Basophils 0.3 0 - 2 % [facility] % Immature 0.1 0 - 0.4 % [facility] Granulocytes [facility] LAB[facility] Absolute 3.4 1.6 - 8.3 [facility] Neutrophil 10e9/L [facility] LABS Absolute 2.8 0.8 - 5.3 [facility] Lymphocytes 10e9/L [facility] LABS Absolute 0.7 0.0 - 1.3 [facility] Monocytes 10e9/L [facility] LABS Absolute 0.1 0.0 - 0.7 [facility] Eosinophils 10e9/L [facility] LABS Absolute 0.0 0.0 - 0.2 [facility] Basophils 10e9/L [facility] LABS Abs Immature 0.0 0 - 0.03 [facility] Granulocytes 10e9/L [facility] LABS Specimen Anatomical Collection Method Collection Time Receive d Time (Source) Location / / Volume Laterality Blood specimen 07/14/2012 6:06 AM 012 6:13 (specimen) STREET SPRINKLER AM STREET SPRINKLER Karel Tran MD LAB - BLOOD ORDERABLES Performing Organization Address City/[facility]/ZIP Code Phon e Number [id number] [place] [address] LABS (ABNORMAL) Glucose by meter (07/13/2012 5:[address] SPRINKLER) P athologist Signature Glucose 113 (H) 60 - 99 POINT OF CARE mg/dL TEST, GLUCOSE Specimen Anatomical Collection Method Collection Time Receive d Time (Source) Location / / Volume Laterality 07/13/2012 5:38 PM 2 3:[address] SPRINKLER Milo Nelson MD LAB - BEAKER POCT Performing Organization Address City/[facility]/ZIP Code Phon e Number [facility] POINT OF CARE TEST, GLUCOSE POINT OF CARE TEST, GLUCOSE Heparin 10a Level (07/13/2012 1:[address] SPRINKLER) P athologist Signature Heparin 10A 0.69 IU/mL [facility] LABS Comment: Therapeutic Range: ?? UFH: ?? 0.15-0.35 IU/mL for low ?intensity dosing ?0.30-0.70 IU/mL for high ?intensity dosing ?? LMWH: ??1.00-2.00 IU/mL if 4-6 h ?post daily dosing ?0.60-1.00 IU/mL if 4-6 h ?post twice a day dosin g Specimen Anatomical Collection Method Collection Time Receive d Time (Source) Location / / Volume Laterality Blood specimen 07/13/2012 1:28 PM 012 1:35 (specimen) STREET SPRINKLER PM STREET SPRINKLER Macho Holland MD LAB - BLOOD ORDERABLES Performing Organization Address [facility] Phon e Number [facility] [address] LABS Heparin Xa (10a) Level (07/13/2012 6:[address] SPRINKLER) P athologist Signature Heparin 10A 0.62 IU/mL [facility] LABS Comment: Therapeutic Range: ?? UFH: ?? 0.15-0.35 IU/mL for low ?intensity dosing ?0.30-0.70 IU/mL for high ?intensity dosing ?? LMWH: ??1.00-2.00 IU/mL if 4-6 h ?post daily dosing ?0.60-1.00 IU/mL if 4-6 h ?post twice a day dosin g Specimen Anatomical Collection Method Collection Time Receive d Time (Source) Location / / Volume Laterality Blood specimen 07/13/2012 6:51 AM 012 6:53 (specimen) STREET SPRINKLER AM STREET SPRINKLER Karel Tran MD LAB - BLOOD ORDERABLES Performing Organization Address [facility] Phon e Number [facility] [address] LABS (ABNORMAL) Basic metabolic panel (07/13/2012 4:[address] [facility]) Analysis Performed At Patho logist Time Signature Sodium 138 133 - 144 [facility] mmol/L [facility] Potassium 3.7 3.4 - 5.3 [facility] mmol/L [facility] Chloride 106 94 - 109 [facility] mmol/L [facility] Carbon Dioxide 24 20 - 32 [facility] mmol/L [facility] Anion Gap 9 6 - 17 [facility] mmol/L [facility] Glucose 116 (H) 60 - 99 [facility] mg/dL [facility] Urea Nitrogen 7 5 - 24 [facility] mg/dL [facility] Creatinine 0.55 0.52 - [facility] 1.04 mg/dL [facility] GFR Estimate >90 >60 [facility] mL/min/1.7 [place] m2 [place] [facility] GFR Estimate If >90 >60 [facility] Black mL/min/1.7 [place] m2 [place] [facility] Calcium 8.7 8.5 - 10.4 [facility] mg/dL [facility] Specimen Anatomical Collection Method Collection Time Receive d Time (Source) Location / / Volume Laterality Blood specimen 07/13/2012 4:18 AM 012 4:19 (specimen) STREET [facility] AM [facility] [facility] Karel Tran MD LAB - BLOOD ORDERABLES Performing Organization Address City/State/ZIP Code Phon e Number [facility] [address] LABS Heparin Xa (10a) Level (07/13/2012 4:[address] [place]) P athologist Signature Heparin 10A 0.97 IU/mL [facility] Comment: Therapeutic Range: ?? UFH: ?? [...] 07/13/2012 4:18 AM 11/28/2 012 4:19 (specimen) STRE[facility] [place] AM [address] [place] Karel Tran MD LAB - BLOOD ORDERABLES Performing Organization Address City/State/ZIP Code Phon e Number [facility] [address] [place] [address] [facility]S Chest CT, IV contrast only - PE protocol (07/12/2012 8:[address] [place]) Anatomical Region Laterality Modality Chest, SUBRAD CT BODY, UMP CT CHEST Comp uted Tomography Specimen (Source) Anatomical Collection Method Collection Time Re ceived Time Location / / Volume Laterality 07/12/2012 8:[address] [place] Impressions 07/12/2012 10:[address] [place] IMPRESSION: 1. Multiple bilateral lower lobe segment [...] with the findings. Narrative 07/12/2012 10:[address] [place] Examination: Chest CT Pulmonary Angiogra m, 07/12/2012 [...] CT ORDERABLES Creatinine POCT (07/12/2012 7:[address] [place]) P athologist Signature Creatinine 0.6 0.52 - [facility] 1.04 mg/dL TEST, HANDHELD METER GFR Estimate >90 >60 [facility] mL/min/1.7 TEST, HANDHELD m2 METER GFR Estimate If >90 >60 [facility] Black mL/min/1.7 TEST, HANDHELD m2 METER Specimen Anatomical Collection Method Collection Time Receive d Time (Source) Location / / Volume Laterality 07/12/2012 7:52 PM 2 8:[address] [place] [address] [place] Mak Roach MD [facility] POCT Performing Organization Address City/State/ZIP Code Phon e Number [facility] POINT OF CARE TEST, HANDHELD METER POINT OF CARE TEST, HANDHELD METER hCG qual urine POCT (07/12/2012 7:[address] [place]) athologist Signature HCG Qual Urine neg neg Internal QC OK Yes Specimen (Source) Anatomical Collection Method Collection Time Re ceived Time Location / / Volume Laterality Urine specimen 07/12/2012 7:26 PM (specimen) STREET [place] Caio Valdes MD LAB - ENTER/EDIT POCT Partial thromboplastin time (07/12/2012 7:[address] [place]) athologist Signature PTT 27 22 - 37 sec [facility]S Specimen Anatomical Collection Method Collection Time Receive d Time (Source) Location / / Volume Laterality 07/12/2012 7:23 PM 2 7:[address] [place] [address] [place] Char Tovar MD LAB - BLOOD ORDERABLES Performing Organization Address City/[facility]/ZIP Code Phon e Number [address] LABS INR (07/12/2012 7:[address] [facility]) athologist Signature INR 0.99 0.86 - 1.14 [facility] Specimen Anatomical Collection Method Collection Time Receive d Time (Source) Location / / Volume Laterality 07/12/2012 7:23 PM 2 7:[address] [place] [address] [place] Char Tovar MD LAB - BLOOD ORDERABLES Performing Organization Address City/State/ZIP Code Phon e Number [facility] [address] LABS Troponin I (07/12/2012 7:[address] [place]) athologist Signature Troponin I ES <0.012 0.000 - [facility] 0.034 ug/L [place] [facility] Specimen Anatomical Collection Method Collection Time Receive d Time (Source) Location / / Volume Laterality Blood specimen 07/12/2012 7:23 PM 012 7:32 (specimen) STREET [place] PM [address]RE[address] [place] Char Tovar MD LAB - BLOOD ORDERABLES Performing Organization Address City/[facility] Care [facility]/ZIP Code Phon e Number [facility] [address] [place] [address] [facility] LAB[facility] (ABNORMAL) CBC with platelets differential (07/12/2012 7:[address] [place]) [facility] gist Method Time Signature WBC 13.1 (H) 4.0 - [facility] 11.0 [facility] 10e9/L [facility] RBC Count 4.59 3.8 - 5.2 [facility] 10e12/L [facility] Hemoglobin 13.9 11.7 - [facility] 15.7 g/dL [facility] Hematocrit 40.3 35.0 - [facility] 47.0 % [facility] MCV 88 78 - 100 [facility] fl [facility] MCH 30.3 26.5 - [facility] 33.0 pg [facility] MCHC 34.5 31.5 - [facility] 36.5 g/dL [facility] RDW 12.2 10.0 - [facility] 15.0 % [facility] Platelet Count 257 150 - 450 [facility] 10e9/L [facility] Diff Method Automated [facility] % Neutrophils 77.2 (H) 40 - 75 % [facility] % Lymphocytes 15.9 (L) 20 - 48 % [facility] % Monocytes 6.0 0 - 12 % [facility] % Eosinophils 0.5 0 - 6 % [facility] % Basophils 0.2 0 - 2 % [facility] % Immature 0.2 0 - 0.4 % [facility] Granulocytes [facility] Absolute 10.1 (H) 1.6 - 8.3 [facility] Neutrophil 10e9/L [facility] Absolute 2.1 0.8 - 5.3 [facility] Lymphocytes 10e9/L [facility] Absolute 0.8 0.0 - 1.3 [facility] Monocytes 10e9/L [facility] Absolute 0.1 0.0 - 0.7 [facility] Eosinophils 10e9/L [facility] Absolute 0.0 0.0 - 0.2 [facility] Basophils 10e9/L [facility] Abs Immature 0.0 0 - 0.03 [facility] Granulocytes 10e9/L [facility] Specimen Anatomical Collection Method Collection Time Receive d Time (Source) Location / / Volume Laterality Blood specimen 07/12/2012 7:23 PM 012 7:32 (specimen) STREET [place] PM [address]RE[address] [place] Char Tovar MD LAB - BLOOD ORDERABLES Performing Organization Address City/Special Care [facility]/ZIP Code Phon e Number [facility] [address] [place] [address] [facility] Basic metabolic panel (07/12/2012 7:[address] [place]) P athologist Signature Sodium 142 133 - 144 [facility] mmol/L CAMP[facility]S Potassium 4.1 3.4 - 5.3 [facility] mmol/L [facility] Chloride 107 94 - 109 [facility] mmol/L [facility] Carbon Dioxide 21 20 - 32 [facility] mmol/L [facility] Anion Gap 14 6 - 17 [facility] mmol/L [facility] Glucose 87 60 - 99 [facility] mg/dL CAMP[facility]S Urea Nitrogen 8 5 - 24 [facility] mg/dL [facility]AMP[facility]S Creatinine 0.62 0.52 - [facility] 1.04 mg/dL [facility]AMP[facility]S GFR Estimate >90 >60 [facility] mL/min/1.7 [facility] m2 GFR Estimate If >90 >60 [facility] Black mL/min/1.7 [facility] m2 Calcium 9.2 8.5 - 10.4 [facility] mg/dL CAMP[facility]S Specimen Anatomical Collection Method Collection Time Receive d Time (Source) Location / / Volume Laterality Blood specimen 07/12/2012 7:23 PM 012 7:32 (specimen) STREET [facility] PM [facility]RE[address] [facility] Char Tovar MD LAB - BLOOD ORDERABLES Performing Organization Address City/Special Care Hospital/ZIP [facility] Phon e Number [facility] [address] [place] [address] [facility] EKG 12 lead (07/12/2012 6:[address] [place]) Component Value Ref Range Test Analysis Performed Pathologis t Method Time At Signature Ventricular Rate 106 BPM RADIOLOGY RESULTS Atrial Rate 106 BPM RADIOLOGY RESULTS AK Interval 144 ms RADIOLOGY RESULTS QRS Duration 74 ms RADIOLOGY RESULTS QT 330 ms RADIOLOGY RESULTS QTc 438 ms RADIOLOGY RESULTS P [place] 51 degrees RADIOLOGY RESULTS R AXIS 21 degrees RADIOLOGY RESULTS T [place] 17 degrees RADIOLOGY RESULTS Interpretation Sinus tachycardia RADIOLO GY ECG RESULTS Interpretation Otherwise normal RADIOLOG Y ECG ECG RESULTS Interpretation Unconfirmed report - interpr etation of this ECG is computer generated - see RADIOLOGY ECG medical record for final interpretation RESULTS Specimen (Source) Anatomical Collection Method Collection Time Re ceived Time Location / / Volume Laterality 07/12/2012 6:[address] [place] Char Tovar MD ECG ORDERABLES Performing Organization Address City/State/ZIP Code Phon e Number RADIOLOGY RESULTS EKG - HIM ECG Scan (07/12/2012 6:[address] [place]) Narrative This result has an attachment that [...] (TYLENOL) tablet 650 Given 07/13/2012 5:[address] [place] 650 mg mg 650 mg, Oral, EVERY 4 HOURS PRN, mild pain, Starting on Wed07/13/12 at 0405, Alternate ibuprofen (if ordered) with acetaminophen Maximum acetaminophen dose from all sources = 75 mg/kg/day not to exceed 4 grams/day. diphenhydrAMINE (BENADRYL) capsule 25 mg Given 07/13/2012 10:[address] [place] 25 mg 25 mg, Oral, EVERY 6 HOURS PRN, itching, Starting on Wed07/13/12 at 2120 enoxaparin (LOVENOX) injection 100 mg Given 07/14/2012 11:[address] [place] 100 mg 100 mg, Subcutaneous, EVERY 12 HOURS, First dose on Wed07/13/12 at 1145 Given 07/13/2012 11:[address] [place] 100 mg Given 07/13/2012 12:[address] [place] 100 mg HEParin Loading dose for HIGH INTENSITY Given 07/12/20 12 10:[address] [place] 8,000 Units PROTOCOL * Give BEFORE starting HEParin Drip 8,000 Units (80 Units/kg ? 99.8 kg), Intravenous, ONCE, On Wed07/12/12 at 2126, For 1 dose, Max Dose: 4000 units if patient getting TNK and > 70kg. High Intensity Heparin Protocol heparin drip 25,000 Rate/Dose Change 07/13/2012 5:34 AM 1,700 Units/h r 17 mL/hr units in D5W [address] [facility] Intravenous, CONTINUOUS, Starting on Wed07/12/12 at 7, [...] hill rn Rate/Dose Verify 07/13/2012 12:[address] [place] Units/hr mL/hr New Bag 07/12/2012 10:[address] [place] 1,800 Units/hr 18 mL/hr heparin drip 25,000 units in New Bag 07/13/2012 12:24 PM 1,700 Units/hr 17 mL/hr D5W [address] [place] Intravenous, CONTINUOUS, Starting on Wed07/13/12 at 1230, [...] 0.2 MG/0.2 ML Given 07/13/2012 12:[address] [place] 0.2 mg injection Starting on Wed07/13/12 at 1233, For 1 dose, PETER HERNANDEZ: cabinet override HYDROmorphone (DILAUDID) injection 0.2-0 .4 mg Given 07/13/2012 8:[address] [place] 0.4 mg 0.2-0.4 mg, Intravenous, EVERY 4 HOURS PRN, moderate to severe pain, Starting on Wed07/13/12 at 0405 HYDROmorphone (DILAUDID) injection 0.4 m g Given 07/13/2012 4:[address] [place] 0.4 mg 0.4 mg, Intravenous, EVERY 15 MIN PRN, Starting on Wed07/12/12 at 1834, Until Wed07/13/12 at 0411, moderate to severe pain Given 07/13/2012 1:[address] [place] 0.4 mg Given 07/13/2012 12:[address] [facility] 0.4 mg HYDROmorphone (DILAUDID) tablet 2 mg Given 07/14/2012 10:[address] [place] 2 mg 2 mg, Oral, EVERY 4 HOURS PRN, severe pain, Starting on Wed07/13/12 at 1635 Given 07/14/2012 6:[address] [place] 2 mg Given 07/14/2012 12:[address] [facility] 2 mg ibuprofen (ADVIL,MOTRIN) tablet 600 mg Given 07/13/2012 3:[address] [facility] 600 mg 600 mg, Oral, EVERY 6 HOURS PRN, moderate pain, Starting on Wed07/13/12 at 1117, Give 1.5 tablets (600mg) Q6hrs prn iopamidol (ISOVUE-370) 76% solution 100 mL Given 07/12/2012 8:[address] [place] 70 mLs 100 mL, Intravenous, ONCE, On Wed07/12/12 at 2049, For 1 dose LORazepam (ATIVAN) tablet 0.5 mg Given 07/13/2012 12:[address] [place] 0.5 mg 0.5 mg, Oral, 3 TIMES DAILY PRN, anxiety, Starting on Wed07/13/12 at 0401 ondansetron (ZOFRAN) injection 8 mg Given 07/12/2012 11:[address] [place] 8 mg 8 mg, Intravenous, ONCE, Administer over 2-5 Minutes, On Wed07/12/12 at 2307, For 1 dose oxyCODONE (ROXICODONE) immediate release tablet Given 07/13/2012 4:[address] [facility] 5 mg 5 mg 5 mg, Oral, EVERY 4 HOURS PRN, moderate to severe pain, Starting on Wed07/13/12 at 1116 Given 07/13/2012 12:[address] [facility] 5 mg oxyCODONE-acetaminophen (PERCOCET) 5-325 MG Given 06/17 3:[address] [facility] 1 tablet per tablet 1-2 tablet 1-2 [...] constipation treatment protocol. Given 07/13/2012 8:[address] [facility] 2 tablets sodium chloride (PF) 0.9% PF flush 20 mL Given 07/12/2012 8:[address] [facility] 20 mLs 20 mL, Intravenous, ONCE, On Wed07/12/12 at 2048, For 1 dose warfarin (COUMADIN) tablet 5 mg Given 07/14/2012 6:[address] [facility] 5 mg 5 mg, Oral, ONCE AT 6PM, On Wed07/14/12 at 1800, For 1 dose, Dispose as HW-P warfarin (COUMADIN) tablet 7.5 mg Given 07/13/2012 6:[address] [place] 7.5 mg 7.5 mg, Oral, ONCE, On Wed07/13/12 at 0530, For 1 dose, Dispose as HW-P warfarin (COUMADIN) tablet 7.5 mg Given 07/13/2012 5:[address] [facility] 7.5 mg 7.5 mg, Oral, ONCE AT 6PM, On Wed07/13/12 at 1800, For 1 dose, Ok to give in addition to 7.5 mg given at 0620 this morning. Dispose as HW-P documented in this encounter Active and Recently Administered Medications Times are shown in [facility]REET [facility]. Scheduled Medication Order 07/12/2012 07/13/2012 07/14/2012 enoxaparin [...] 2247 (Given - Provider: Suman Hill RN) 8,000 Units (80 Units/kg ? 99.8 kg), Intravenous, ONCE, On Wed07/12/12 at 7, For 1 dose, Max Dose: 4000 units if patient getting TNK and > 70kg. High Intensity Heparin Protocol iopamidol (ISOVUE-370) 76% solution 100 mL (COMPLETED) 2047 (Given - Provider: CHIDI Rutledge) 100 mL, Intravenous, ONCE, On Wed07/12/12 at 2048, For 1 dose omeprazole (priLOSEC) capsule 20 mg 0814 (Not Given - Provider: Meghna Cao RN - Reason: Patient/family refused) 20 mg, Oral, EVERY MORNING BEFORE BREAKFAST, First dos e on Wed07/14/12 at 0730 ondansetron (ZOFRAN) injection 8 mg (COMPLETED) 2316 ( Given - Provider: Suman Hill RN) 8 mg, Intravenous, ONCE, Administer over 2-5 Minutes, On Wed07/12/12 at 2307, For 1 dose sodium chloride (PF) 0.9% PF flush 20 mL (COMPLETED) 2 048 (Given - Provider: CHIDI Rutledge) 20 mL, Intravenous, ONCE, On Wed07/12/12 at 2049, For 1 dose warfarin (COUMADIN) tablet 5 mg 1807 (Given - Provider: Ethel Amezcua RN) 5 mg, Oral, ONCE AT 6PM, On Wed07/14/12 at 1800, For 1 dose, Di spose as HW-P warfarin (COUMADIN) tablet 7.5 mg (COMPLETED) 0620 (Given - Provider: April Villagomez RN) 7.5 mg, Oral, ONCE, On Wed07/13/12 at 0530, For 1 dose, Dispose as HW-P warfarin (COUMADIN) tablet 7.5 mg (COMPLETED) 1755 (Given - Provider: Ethel Amezcua RN) 7.5 mg, Oral, ONCE AT 6PM, On Wed at 1800, For 1 dose, Ok to [...] Provider: April Villagomez RN) Intravenous, CONTINUOUS, Starting on Wed07/12/12 at 2127, Starting Drip Rate = 1,800 Units/hr (18 units/kg/hr). High Intensity Heparin Protocol. GOAL: HEPARIN Xa (10a) LEVEL = 0.30-0.70 (PTT = 60-101 s econds). Max 1000 units/hr if patient ge tting TNK and > 70kg. Beginning with the Heparin Xa (10a) Level collected 6 hours after starting Heparin, adjust Heparin according to guidelines. Release Hepar in Xa (10a) Level order for blood draw [...] - 1.01 then HOLD 30 min and Re duce by 100 units/hr. If Xa (10a) 1.02 - 2.06 then HOLD 60 min and Reduce by 150 units/hr If Xa (10a) >2.06 then HOLD 60 min and Reduce by 200 units/hr ., Initial Set-up verified by: suman hill rn heparin drip 25,000 units in D5W 250 mL () 1224 (New Bag - Provider: Peter Hernandez, ELIE)1608 (Stopped - Provider: Ethel Amezcua RN) Intravenous, CONTINUOUS, Starting on Wed07/13/12 at 1230, For 3 hours, Starting Drip Rate = 1,800 Units/hr (18 units/kg/hr). High Intensity Heparin Protocol. GOAL: HEPARIN Xa (10a) LEVEL = 0.30-0.70 (P TT = 60-101 seconds). Max 1000 units/hr if [...] 400 units/hr. If Xa (10a) 0.1 - 0. 17 see bolus orders and INCREASE by 300 [...] Initial Set-up verified by: suman hill rn PRN Medication Order 07/12/2012 07/13/2012 07/14/2012 acetaminophen (TYLENOL) tablet 650 mg 05 39 (Given - Provider: April Villagomez RN) 650 mg, Oral, EVERY 4 HOURS PRN, mild pa in, Starting on Wed07/13/12 at 0405, Alternate ibuprofen (if ordered) with acetaminophen Maximum acetaminophen dose from all sources = 75 mg/kg/day not to exceed 4 grams/day. diphenhydrAMINE (BENADRYL) capsule 25 mg (CANCELED) 2203 (Given - Provider: Ethel Amezcua RN) 25 mg, Oral, EVERY 6 HOURS PRN, itching, Starting on Wed 2 at 2120 HYDROmorphone (DILAUDID) injection 0.2-0.4 mg (CANCELED) 0803 (Given - Provider: Peter Hernandez RN) 0.2-0.4 mg, Intravenous, EVERY 4 HOURS P RN, moderate to severe pain, Starting on Wed07/13/12 at 0405 HYDROmorphone (DILAUDID) injection 0.4 mg (CANCELED) 1 953 (Given - Provider: Suman Hill RN)2251 (Given - Provider: Suman Hill RN) 0058 (Given - Provider: April Villagomez RN)0157 (Given - Provider: April Villagomez RN)0401 (Given - Provider: April Villagomez RN) 0.4 mg, Intravenous, EVERY 15 MIN PRN, S tarting on Wed07/12/12 at 1834, Until Wed07/13/12 at 0411, moderate to severe pain HYDROmorphone (DILAUDID) tablet 2 mg (CANCELED) 1645 (Given - Provider: Ethel Amezcua RN)2045 (Given - Provider: Ethel Amezcua RN) 0047 (Given - Provider: Angela Arroyo, RN)0607 (Given - Provider: Angela Arroyo RN)1004 (Given - Provider: Meghna Cao RN) 2 mg, Oral, EVERY 4 HOURS PRN, severe pain, Starting on 06/17 8 at 1635 ibuprofen (ADVIL,MOTRIN) tablet 600 mg 1 539 (Given - Provider: Ethel Amezcua RN) 600 mg, Oral, EVERY 6 HOURS PRN, moderat e pain, Starting on Wed07/13/12 at 1117, Give 1.5 tablets (600mg) Q6hrs prn LORazepam (ATIVAN) tablet 0.5 mg (CANCELED) 1223 (Given - Provider: Peter Hernandez RN) 0.5 mg, Oral, 3 TIMES DAILY PRN, anxiety, Starting on Wed at 0401 oxyCODONE (ROXICODONE) immediate release tablet 5 mg (CANCEL ED) 1203 (Given - Provider: Peter Hernandez RN)1607 (Given - Provider: Ethel Amezcua RN) 5 mg, Oral, EVERY 4 HOURS PRN, moderate to severe pain, Starting on Wed07/13/12 at 1116 oxyCODONE-acetaminophen (PERCOCET) 5-325 MG per tablet 1-2 table t 1510 (Given - Provider: Meghna Cao RN) 1-2 tablet, Oral, EVERY 4 HOURS PRN, mod erate to severe pain, Starting on Wed07/14/12 at 1044, Maximum acetaminophen 4000 mg in 24 hours from all sources senna-docusate (SENOKOT-S;PERICOLACE) 8.6-50 MG per tablet 1 -2 tablet 204 (Given - Provider: Ethel Amezcua RN) 0851 (Given - Provider: Meghna Cao RN) 1-2 tablet, Oral, 2 TIMES DAILY PRN, con stipation , Starting on Wed07/13/12 at 0405, If no bowel movement in 24 hours, increase to 2 tablets PO BID. Hold for loose stools. This is the first step of a three step constipation treatment protocol. No Frequency Medication Order 07/12/2012 07/13/2012 07/14/2012 HYDROmorphone (DILAUDID) 0.2 MG/0.2 ML injection (COMPLETED) 1235 (Given - Provider: Peter Hernandez, RN) Starting on Wed07/13/12 at 1233, For 1 dose, PETER HERNANDEZ: cabinet override documented in this encounter Care Teams Mission Planner Relationship Specialty Start Date End Date Shari Mann PCP - General 07/12/12 10/07/14 documented as of this encounter
--- OUTSIDE RECORDS SUMMARY | 2022-06-17 09:15 | XMS_ITS | Encounter Summary ---
:[address] [facility] Address [address] [place] [address] Home Phone Mobile Phone Email Address Email Address Preferred Language Ukrainian Marital Status Single Alevism Affiliation Unknown Race White Ethnic Group Unknown Author Organization [place] Address [address] [place] [address] Care Team Providers Name Role Phone Shari Mann Primary Care Provider Reason for Visit Reason Onset Date Comments Anticoagulation 07/28/2012 Encounter Details Date Type Department Care Team Description 07/28/2012 Telephone [facility] Dmitri Zamora , Anticoagulation Anticoagulation Clin ic [facility] [address] [place], [place] [phone] [facility] [phone] [place] [address] [address] [place], [place] [id number] (Wo rk) Social History Tobacco Use Types [...] By: Cathie Hutchinson PharmD IV student/Acosta Zamora [facility] INSTALLER documented in this encounter Plan of Treatment Not on filedocumented as of this encounter Visit Diagnoses Not on filedocumented in this encounter Care Teams Galley Worker Relationship Specialty Start Date End Date Shari Mann PCP - General 07/12/12 10/07/14 documented as of this encounter
--- OUTSIDE RECORDS SUMMARY | 2022-06-17 09:15 | XMS_ITS | Encounter Summary ---
:1985 Author Organization [place] Address [address] [place] [address] Care Team Providers Name Role Phone Shari Mann Primary Care Provider Reason for Visit Reason Onset Date Comments Anticoagulation 07/25/2012 Encounter Details Date Type Department Care Team Description 07/25/2012 Telephone [facility] Tiffanie Fernandes, Anticoagulation Anticoagulation Clin [place] [phone] Social History Tobacco Use Types Packs/Day Years Used Date Smoking Tobacco: Former Cigarettes 0.5 5 Quit : 07/19/2012 Smokeless Tobacco: Never Alcohol Use Standard Drinks/Week Comments Yes 0 (1 standard drink = 0.6 oz pure alcoho l) occasionally Sex Assigned at Date Recorded Not on file documented as of this encounter Miscellaneous Notes Telephone Encounter - Tiffanie Fernandes, [facility] - 07/25/2012 2:07 PM CST Current Warfarin [...] message Results Given By: Tiffanie Fernandes PHARMD ONNEL SECURITY SPECIALIST documented in this encounter Plan of Treatment Not on filedocumented as of this encounter Visit Diagnoses Not on filedocumented in this encounter Care Teams [employer] School Principal Relationship Specialty Start Date End Date Shari Mann PCP - General 07/12/12 10/07/14 documented as of this encounter
--- OUTSIDE RECORDS SUMMARY | 2022-06-17 09:15 | XMS_ITS | Encounter Summary ---
:1985 Author Organization [facility] Address [address] [place] [address] Care Team Providers Name Role Phone Shari Mann Primary Care Provider Reason for Visit Reason Onset Date Comments Anticoagulation 07/22/2012 Encounter Details Date Type Department Care Team Description 07/22/2012 Telephone [facility] Isabel Dominguez, Anticoagulation Anticoagulation Clin ic RN [address] [place] [phone] Social History Tobacco Use Types Packs/Day [...] number Results Given By: Isabel Dominguez RN SWITCHMAN documented in this encounter Plan of Treatment Not on filedocumented as of this encounter Visit Diagnoses Not on filedocumented in this encounter Care Teams Drafter Civil Relationship Specialty Start Date End Date Shari Mann PCP - General 07/12/12 10/07/14 documented as of this encounter
--- OUTSIDE RECORDS SUMMARY | 2022-06-17 09:15 | XMS_ITS | Encounter Summary ---
:1985 Author Organization [place] Address [address] [place] [address] Care Team Providers Name Role Phone Shari Mann Primary Care Provider Encounter Details Date Type Department Care Team Description 07/20/2012 Orders Only [facility] Yeison Helton PE (pulmon [facility] MD Umer embolism) (H) Laboratory 420 [facility] [address] [place] [address] (Wo rk) Social History Tobacco Use Types [...] 1:03 PM PE (pulmonary Results for this LAST REPAIRER embolism) (H) procedure are in the results section . documented in this encounter Results (ABNORMAL) INR (10/11/2012 1:03 PM LAST REPAIRER) P athologist Signature INR 2.08 (H) 0.86 - 1.14 [facility] LABS Specimen Anatomical Collection Method Collection Time Receive d Time (Source) Location / / Volume Laterality Blood specimen 10/11/2012 1:03 PM 013 1:04 (specimen) LAST REPAIRER PM LAST REPAIRER Patricia Moe APRN INSTRUMENT SETTER LAB - BLOOD ORDERABLES Performing Organization Address City/State/ZIP Code Phon e Number [facility] [address] [place], [place] [phone] [place] [address] LABS documented in this encounter Visit Diagnoses Diagnosis PE (pulmonary embolism) Other pulmonary embolism and infarction documented in this encounter Care Teams Boarding Machine Operator Relationship Specialty Start Date End Date Shari Mann PCP - General 07/12/12 10/07/14 documented as of this encounter
--- OUTSIDE RECORDS SUMMARY | 2022-06-17 09:15 | XMS_ITS | Encounter Summary ---
:1985 [facility] Address [address] [place] [address] Home Phone Mobile Phone Email Address Email Address Preferred Language Pakistani Marital Status Single Scientology Affiliation Unknown Race White Ethnic Group Unknown Author Organization [place] Address [address] [place] [address] Care Team Providers Name Role Phone Shari Mann Primary Care Provider Reason for Visit Reason Onset Date Comments Refill Request 07/19/2012 Encounter Details Date Type Department Care Team Description 07/19/2012 [facility] APRN Refill Request Clotting Disorders MACHINE STITCHER 6th Floor, 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 XXX Dl [facility] [address] [place] [address] [phone] Social History Tobacco Use Types Packs/Day Years [...] infarction documented in this encounter Care Teams Head Start Assistant Teacher Relationship Specialty Start Date End Date Shari Mann PCP - General 07/12/12 10/07/14 documented as of this encounter
--- OUTSIDE RECORDS SUMMARY | 2022-06-17 09:15 | XMS_ITS | Encounter Summary ---
:1985 Author Organization [place] Address [address] [place] [address] Care Team Providers Name Role Phone Shari Mann Primary Care Provider Encounter Details Date Type Department Care Team Description 07/12/2012 Medical Correspondence [facility] Yeison Helton AUTH FORM, Health Info Mgmt MD Umer 07/12/2012 [facility] 420 [facility] 2450 [facility] [address] [place] [address] Social History Tobacco Use Types Packs/Day Years [...] on filedocumented in this encounter Care Teams Beer Coil Cleaner Relationship Specialty Start Date End Date Shari Mann PCP - General 07/12/12 10/07/14 documented as of this encounter
--- OUTSIDE RECORDS SUMMARY | 2022-06-17 09:15 | XMS_ITS | Encounter Summary ---
:1985 Author Organization [place] Address [address] [place] [address] Care Team Providers Name Role Phone Mann, Shari Primary Care Provider BgRashida APRN BROADCAST MAINTENANCE ENGINEER Primary Care Provider [phone] BgRashida cornejo APRN BROADCAST MAINTENANCE ENGINEER Unavailable [phone] BgRashida cornejo APRN BROADCAST MAINTENANCE ENGINEER Unavailable [phone] Concha Balderrama [facility] Primary Care Provider Encounter Details Date Type Department Care Team Description 04/06/2011 Records - [facility] Paramjit Balderrama [address] [place] [address] [address] [place] [address] [place] [address] Social History Tobacco Use Types [...] 1:20 PM 1 1:20 CDT PM CDT [facility] Y - 04/06/2011 1:20 PM CDT [id number] ? Slide(s) 1 Specimen Type: ??SUREPATH SCREEN [...] CT(ASCP) ? (elec tronically signed) Performed at: ??[facility] [address] [place] [address] Date Received: 08/22/11 ?Date Compl eted: 04/09/11 ??ABN Complete: Concha BAKER LAB - BEAKER AP Performing Organization Address City/State/ZIP Code Phon e Number [place] [address] [address] [facility] Treponema Abs w Reflex to RPR and Titer (04/06/2011 9:32 AM CDT) Patholo gist Method Time Signature Syphilis Non-reacti (Nonreacti 04/06/2011 [facility] Screen [place] ve ve) 9:32 AM CDT [facility] Specimen Anatomical Collection Method Collection Time Receive d Time (Source) Location / / Volume Laterality 04/06/2011 9:32 AM 1 9:32 CDT AM CDT Concha Balderrama CNM LAB - BLOOD ORDERABLES Performing Organization Address City/[facility]/ZIP Code Phon e Number [place] [address] [phone] [address] [facility] Hepatitis B surface antigen (04/06/2011 9:32 AM CDT) Analysis Performed At Patho logist Time Signature Hepatitis B Negative (Negative) 04/06/2011 [facility] Surface 9:32 AM CDT [facility] Specimen Anatomical Collection Method Collection Time Receive d Time (Source) Location / / Volume Laterality 04/06/2011 9:32 AM 1 9:32 CDT AM CDT Concha Balderrama CNM LAB - BLOOD ORDERABLES Performing Organization Address City/[facility]/ZIP Code Phon e Number [place] [address] [phone] [address] [facility] HIV Antigen Antibody Combo (04/06/2011 9:32 AM CDT) Analysis Performed At Patho logist Time Signature HIV Antigen Negative 04/06/2011 [facility] Antibody Combo 9:32 AM CDT [facility] Specimen Anatomical Collection Method Collection Time Receive d Time (Source) Location / / Volume Laterality 04/06/2011 9:32 AM 1 9:32 CDT AM CDT Narrative [facility] - 04/06/2011 9:32 AM CDT Effective 06/12/10, methodology is HIV 1/2 Antigen/Antibody Combination. ? Prior to 06/12/10, methodology wa s HIV 1/2 Antibody only. Concha Balderrama CNM LAB - BLOOD ORDERABLES Performing Organization Address City/State/[facility] Phon e Number [facility] [phone] [place] [phone] [place] [address] documented in this encounter Visit Diagnoses Not on filedocumented in this encounter Care Teams Tobacco Blender Relationship Specialty Start Date End Date Shari Mann PCP - General 07/12/12 10/07/14 Rashida Pederson APRN PCP - General Nurse Practitioner 10/08/14 BROADCAST MAINTENANCE ENGINEER [address] [place] [address] Rashida Pederson APRN PCP - Assigned PCP 10/14/14 10/18/18 BROADCAST MAINTENANCE ENGINEER [address] [place] [address] Concha Balderrama CNM PCP - General 04/06/11 07/11/[address] [address] Rashida Pederson, ZIYAD Assigned PCP 10/14/14 1 09/26/20 BROADCAST MAINTENANCE ENGINEER [address] [place] [address] documented as of this encounter
--- NOTE | 2022-06-17 16:52 | P.LACCB_ITS ---
Consult Note - Mom Date of Visit Date of visit: 06/26/22 applications development consultant: Mirela Quispe Visit Code: Visit Patient's Information Phone number: [phone] : 2 Para: 2 Allergies bupropion Adverse Reaction (Intermediate, Verified 06/17/22 10:13) Seizure Conjugated estrogen Adverse Reaction (Intermediate, Uncoded 06/17/22 10:13) Blood clots from oral control pills Mother's Medical History: Medical History (Updated 06/12/22 @ 00:01 by ) ADHD Anxiety and depression Gestational diabetes History of seizure Hx of deep venous thrombosis Work Plans: returns to work in 10 weeks Delivery Information Delivery type: Vaginal Weeks Gestation: 39.4 Gestational Age: AGA Weight: 3.21 kg Discharge Weight: 3.274 kg Baby's Information Baby's Age at Visit: 2 weeks Baby's Provider or Clinic: [facility] Jaundice: No Reason for Consult Reason for Consult: concern for milk supply and weight gain Past Experience Past Experience: Yes (nursed her older child for a short time, lot of difficulty w/ supply) Current Frequency of Day Feedings: every 2 - 3 hours around the clock Both Breasts: Yes Suck: not aggressive Latch: doesn't maintain the latch Length of Time: mm attempts for 20 - 30 minutes Pumping Pumping: Yes (trying to pump with every feeding) Quantity Pumped: at most about one oz total Supplementing EMB Supplement: Yes (mom attempts to give 2 oz EBM or formula every 2 - 3 hours) Formula Supplement: Yes Baby Elimination Number of Wet Diapers a Day: 4 - 6/day Number of BM a Day: 1 - 2/day Breast/Nipple Condition Breast Information: WNL Engorgement: No Maternal Nipple Condition - Left: Common Nipple Maternal Nipple Condition - Right: Common Nipple Sore Nipples: No Onsite Pre-Feed weight: 2.982 kg Post-Feed weight: 2.99 kg Milk Transferred (mL): 8 Pre-Nursing Left Nipple: Within Normal Limits Pre-Nursing Right Nipple: Within Normal Limits Post-Nursing Left Nipple: Within Normal Limits Post-Nursing Right Nipple: Within Normal Limits Assessments/Interventions Assessments/Interventions: Met with mom and this now 2 week old ex- term AGA baby for consult.? Mom reports seemed to be going really well for about the first week but then my supply just tanked.? She reports nursing baby every 2 - 3 hours on both sides and baby will suckle for several minutes but mom feels as soon as her let-down slows baby gets frustrated.? Mom reports since we talked at [facility] on 06/15 she's been attempting to nurse baby for about 30 minutes, then offers 2 oz EMB (her milk as well as milk donated by friends) or formula but that baby sometimes has a hard time even taking that.? She's pumping with her Spectra pump after almost every feeding, getting at best about 1 oz total each time.? Breasts WNL- symmetrical with rounded lower quadrants. Nipples are everted and don't flatten or retract with compression; no damage noted.? Hx of supply issues with her first child.? Did not ask her about breast changes during , but she was able to hand express some colostrum prenatally and had enough to bring to the hospital. At two weeks old baby is still 7% below BW.? No cephalohematoma/caput noted on delivery record.? Baby appears to have fairly equal ROM when turning her head (maybe favors turning right); equal ROM when moving her extremities.? Her plate is WNL.? Upper frenulum is a little tight and her lower frenulum may be a little posterior.? She has a fairly strong suck on a finger, her tongue just comes over the gum line but not consistently.? The tongue does have good lateral movement.? Mom latched baby to both sides and baby appears to have a fairly wide latch.? She suckles several times, but then comes off.? Mom thinks this may be d/t her flow but we discussed it could also be b/c baby looses her latch.? Mom tried a few positions, having the most success in the cross cradle position.? It also seemed to help when she kept her breast supported but baby still didn't maintain the latch for more than 10 suckles.? Baby nursed in this off and on pattern for about 30 minutes total transferring 8 ml.? Mom then gave her a 2 oz bottle of EBM and baby was able to finish that with paced feeding in about 15 minutes. Mom is frustrated and disheartened; didn't want to give formula but knows baby needs to start gaining weight.? Plan: 1. Continue to practice nursing every 2 - 3 hours around the clock, but keep the sessions to about 15 - 20 minutes for now.? This will hopefully help baby stay familiar with but not use up too much of her energy. 2. Instructed mom to continue pace feeding 2 - 3 oz EBM or formula after every nursing session.? She has several people who have offered their pumped milk but we also discussed that if she needs to use formula it's hopefully only temporary until baby has started to gain weight and her own milk supply has increased. 3. Encouraged mom to pump with every nursing session, but stressed that it's ok to take a break from a pumping session if needed (balance her mental health with building her supply).? Gave her a flange fit guide as a smaller flange may be more comfortable and help her production.? She's also going to get a script for Reglan and/or domperidone. 4. Reviewed a few sucking exercises she could try; suggested if she doesn't see an improvement with baby maintaining her latch using these exercises she could consider a pediatric dental evaluation.? Handout with local dentists given. 5. Will send this note to baby's PCP and baby has an appointment with her on 06/18.? Will f/u with mom at [facility]. Meds Home Medications and Allergies Home Medications Medication Instructions Recorded Confirmed Type prenat.vits,ant,hvu-tqmz-ywafg 1 tab PO QDAY 02/18/22 06/02/22 History Allergies Allergy/AdvReac Type Severity Reaction Status Date / Time bupropion AdvReac Intermediate Seizure Verified 06/17/22 10:13 Conjugated estrogen AdvReac Intermediate Blood Uncoded 06/17/22 10:13 clots from oral control pills
== END 2022-06-17 09:08 | disposition home or self-care (01) ==
LOC: OB LAC 09:07
PROVIDERS: PCP Advanced Practice Midwife; Visit Provider Advanced Practice Midwife
DX: Z39.2 Encounter for routine postpartum follow-up (principal)
CPT/HCPCS: 99211

== ENCOUNTER 2022-07-16 10:41 | Outpatient (CLI) | payer OTHER, SELFPAY ==
--- OUTSIDE RECORDS SUMMARY | 2022-07-16 10:43 | XMS_ITS | Encounter Summary ---
:1985 Author Organization [place] Address [address] [place] [address] Care Team Providers Name Role Phone Rashida Pederson APRN ROLL CUTTER Primary Care Provider [phone] Rashida Pederson APRN ROLL CUTTER Unavailable [phone] Paty Lewis [facility] Unavailable [phone] Encounter Details Date Type Department Care Team Description 05/28/2020 [facility] Rashida Pederson [place] ZIYAD [place] [address] [phone] [place] [address] (Wo rk) Social History Tobacco [...] Depression Total Score: 7 07/27/2018 7:15 AM CARAMEL CANDY MAKER HELPER documented as of this encounter Care Teams Waste Picker Relationship Specialty Start Date End Date Rashida Pederson, PCP - General Nurse Practitioner 10/08/14 STEAMER GUM CANDY ROLL [place]TER [address] [place] [address] Rashida Pederson, Assigned PCP 10/14/14 STEAMER GUM CANDY [place] [address] [place] [address] Paty Lewis Assigned OBGYN Provider 02/28/21 12/13/21 ABDOUL [address] [place] [address] documented as of this encounter
--- OUTSIDE RECORDS SUMMARY | 2022-07-16 10:43 | XMS_ITS | Clinical Summary ---
:1985 Author Organization [facility] [place] [address] Care Team Providers Name Role Phone Fatou Bravo Primary Care Provider [phone] Unknown, Doctor Unavailable Unavailable Allergies Active Allergy [...] VITAMIN ORAL) Active Problems Problem Noted Date [facility] Supervision of high-risk 11/20/2021 Overview: [facility] CONSULTATION ON 12/02/21 -- Virtual Visit [...] age 18 LAST GROWTH: Next: L2US at [facility] on 01/21/22 11/13/21: 10w4d LMP c/w 1st trimester US REFERRING PHYSICIAN/PHONE/LAST UPDATE: Hank Frederick [facility] [phone] Primary MD approves scheduling of recomm ended [...] ral, 15 oz) IV Meds Delivery Location: [facility] Comments: was on Lovenox, pushed 3 hours, OP Current OB Episode Summary Episode Dates Estimated Date of Pregravid Weight TWG (As of ) Delivery 12/02/2021 - Present 06/06/2022 (07/16/2022) Date GA Fund Present FHR Mvmt BP [...] or a discussion with members of the [facility]'s treatment team, a virtual visit is [...] not be. 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 She was referred by Yessenia Frederick CNM [place] The FOB is Dillon. He is the father of th is and the previous one. Specialists: States she saw an MFM with her last , never saw a fruit harvest machine operator. Had thrombophilia labs done, states none came back positive (records are not available). Assessment Histories reviewed today include: Past M edical History, Past Surgical History, Social History and Family History and Obstetric History. Refer to the corresponding sections of the history section of Exce ian chart and the [facility] Naviga tor for details. Comments under [...] CDT Respiratory Rate 20 10/18/2011 10:14 AM SYSTEMS TEST ANALYST Oxygen Saturation 97% 04/24/2013 1:34 PM CDT Inhaled Oxygen Concentration - - Weight 113.4 kg (250 lb) 12/02/2021 10:10 AM CDT Height 165.1 cm (5' 5) 12/02/2021 10:10 AM CDT Body Mass Index 41.6 12/02/2021 10:10 AM CDT Plan of Treatment Health Maintenance Due Date Last Done Comments Depression screening for age 12+ 1999 HIV for age 15-65 2002 BMI (ht and wt on same day) [...] ss Type Group PREFERRED ONE PREFERRED ONE [id number] 2020-Ratna [place] [address] [place] [address] Advance Directives Latest Code Status on File Code Status Date Activated Date Inactivated Comments Full Code 01/22/2008 7:00 PM 01/24/2008 1:53 PM Care Teams Student Services Director Relationship Specialty Start Date End Date Fatou Bravo PA PCP - General Emergency Medicine 11/18/21 [address] [place] [address] Unknown, Doctor 11/18/21 .
--- OUTSIDE RECORDS SUMMARY | 2022-07-16 10:43 | XMS_ITS | Encounter Summary ---
:1985 Author Organization [place] Address [address] [place] [address] Care Team Providers Name Role Phone Rashida Pederson APRN FRONT WINDOW CASHIER Primary Care Provider [phone] Rashida Pederson APRN FRONT WINDOW CASHIER Unavailable [phone] Encounter Details Date Type Department Care Team Description 05/27/2020 [facility] Payt [facility] [address] [place], [place] [address]LEONELA CALLAWAY [address] [place] [address] [facility] [address] [facility] [place] [address] Social History Tobacco Use Types [...] Depression Total Score: 7 07/27/2018 7:15 AM PIT WORKER POWER SHOVEL documented as of this encounter Care Teams Digital Marketer Relationship Specialty Start Date End Date Rashida Pederson APRN FRONT WINDOW CASHIER PCP - General Nurse Practitioner 10/08/14 [address] [place], [place] [id number] Rashida Pederson APRN FRONT WINDOW CASHIER Assigned PCP 10/14/14 07/26/21 [address] [place], [place] [id number] documented as of this encounter
--- OUTSIDE RECORDS SUMMARY | 2022-07-16 10:43 | XMS_ITS | Clinical Summary ---
:1985 Author Organization [place] Address [address] [place] [address] Care Team Providers Name Role Phone Rashida Pederson APRN [facility] Primary Care Provider [phone] Allergies Active Allergy Reactions Severity Noted Date [...] Total Score(s): No flowsheet data found. Last [facility] website verification: 6 [email or web address]/ Mirena IUD (intrauterine device) in place 08/07/2013 Overview: 08/07/2013: Mirena inserted under US jennifer kim p cx dilation. Remove/replace by 08/08/18. ksl Dysmenorrhea 07/24/2013 History of pulmonary embolism 07/13/2012 Resolved Problems Problem Noted Date Resolved Date BMI 40.0-44.9, adult 08/24/2019 09/05/2019 Overview: bmi 40 at [facility]. BV (bacterial vaginosis) 11/09/2012 09/17/2015 Immunizations Name Administration Dates Next Due Influenza (IIV3) PF 05/14/2012 Influenza Vaccine >6 months (Alfuria,Fluzone) 04/21/2017 Tdap (Adacel,Boostrix) 11/03/2010 Family History Medical History [...] Address T ype Group Dates PREFERREDONE PREFERREDONE [id number] 2021-Prese [phone] [place] [phone] PPO [employer] [address] [place] [address] Guarantor Name Account Type Relation to Date of Phone Billing Patient Address Logan Sandoval Personal/Family Self [phone] (Home) [place] [address] [place] Personal/Family Self [id number] [address] ([place]) [place] [address] Advance Directives For more information, please contact: [phone] Latest Code Status on File Code Status Date Activated Date Inactivated Comments Full Code 07/14/2012 4:21 PM Code Status History Code Status Date Activated Date Inactivated Comments Full Code 07/13/2012 4:06 AM 07/14/2012 4:21 PM Care Teams Ammonium Nitrate Crystallizer Relationship Specialty Start Date End Date Rashida Pederson APRN CNP PCP - General Nurse Practitioner 10/08/14 [address] [place] [address]
--- OUTSIDE RECORDS SUMMARY | 2022-07-16 10:43 | XMS_ITS | Encounter Summary ---
:1985 Author Organization [facility] Address [address] [place] [address] Care Team Providers Name Role Phone Rashida Pederson APRN TEXTILE DESIGNER Primary Care Provider [phone] Rashida Pederson APRN TEXTILE DESIGNER Unavailable [phone] Encounter Details Date Type Department Care Team Description 01/10/2021 Records - [facility] CONVERSION Provider, Histor ica Social History Tobacco [...] Depression Total Score: 7 07/27/2018 7:15 AM COMMERCIAL RELATIONSHIP MANAGER documented as of this encounter Care Teams Foreman Or Supervisor And Operator Relationship Specialty Start Date End Date Rashida Pederson APRN TEXTILE DESIGNER PCP - General Nurse Practitioner 10/08/14 [address] [place] [address] Rashida Pederson APRN TEXTILE DESIGNER Assigned PCP 10/14/14 07/26/21 [address] [place] [address] documented as of this encounter
--- OUTSIDE RECORDS SUMMARY | 2022-07-16 10:43 | XMS_ITS | Encounter Summary ---
:1985 Author Organization [place] Address [address] [place] [address] Care Team Providers Name Role Phone Rashida Pederson APRN, CNP Primary Care Provider [phone] Rashida Pederson APRN, CNP Unavailable [phone] Encounter Details Date Type Department Care Team Description 06/26/2020 Medical Correspondence [facility] Health Info Mgmt Non-Provider LUZ ELENA MARADIAGA [facility] [address] [place] [address] Social History Tobacco Use Types [...] Depression Total Score: 7 07/27/2018 7:15 AM NURSING OFFICER documented as of this encounter Care Teams Historical Guide Relationship Specialty Start Date End Date Rashida Pederson APRN CNP PCP - General Nurse Practitioner 10/08/14 [address] [place] [address] Rashida Pederson, CORE MICROARCHITECT ARTIFICIAL CANDY MAKER Assigned PCP 10/14/14 07/26/21 [address] [facility] [place] [address] documented as of this encounter
--- OUTSIDE RECORDS SUMMARY | 2022-07-16 10:43 | XMS_ITS | Encounter Summary ---
:1985 Author Organization [place] Address [address] [place] [address] Care Team Providers Name Role Phone Rashida Pederson APRN SECURITIES SALES ASSOCIATE Primary Care Provider [phone] Rashida Pederson APRN SECURITIES SALES ASSOCIATE Unavailable [phone] Reason for Visit Reason Comments Post Exam Contraception IUD placement Encounter Details Date Type Department Care Team Description 06/11/2020 Office Visit - [facility] Paty Lewis follow-up; [facility] Screening for cervical cancer; Diamond GONSALES DR Encounter for intrauterine device placem ent; Akil Diamond [place], [place] BMI 40.0-44.9 , adult (H); [phone] IUD (intrauterine device) in place; Diamond Ernst [phone] General coun seling and advice on contraceptive management Center (Work) [place], [place] [phone] [address] (Fax) [phone] Social History Tobacco Use Types Packs/Day Years [...] done at today's visit. Due for annual Ed Case Manager exam in 1 year. 2. Desired contraception: [...] of a PNV or MV, Vitamin D3 7997-9420 IUs, and an omega 3 fatty acid [...] condom. No unprotected intercourse. Desired contraception: IUD. Davis depression screening score: 3. Review of Systems [...] was minimal. IUD Information: Mirena Lot # [id number], Expiration date Condition: Stable Complications: None Patient [...] concerns and need to speak with a cell assembly pinner immediately, please call the on-call cell assembly pinner at [phone]. If you have a non-emergent question or would like to schedule a follow up appointment, please call the clinic cell assembly pinner at [phone]. Thank you for sharing your experience with the [facility] Midwives. Congratulations on the of your [...] care provider before starting an exercise program. Https://Mythos/ Http://www.Rkylin.Hactus/ @PelvicGuluzma1 @DinahPelvicFloorMuscles @The.Vagina.Rafaelperer Taking Care of your [...] partner having a vasectomy. Reliable resources: ? [place] [employer] Nurse-Midwives (ACNM) http://www.cell assembly pinner.org/; look at the informational handouts at http://www.cell assembly pinner.org/Mfrfv-Iebt-Urxmz ?? Women's Health.gov: http://www.womenshealth.gov/a-z-topics/index.html FDA - Nutrition ?www.mypyramid.gov? Under For Consumers, click on and women. ? Vaccines : Centers for Disease Control and Prevention (CDC) http://www.cdc.gov/vaccines/ ? [facility] www.[facility].com ? When researching information on the web, question the validity of websites.? The domains .gov, .GET IT Mobile and.org tend to be more reliable information.? [...] D rich foods: Cod Liver Oil (1Tbsp), Sterling, Mackerel, Tuna, fortified milk and yogurt, Beef and liver, sardines, egg, fortified cereals, malagasy cheese.? Take supplements with fattiest meal.? ? 2-3 (4) oz servings of fish, seafood, nuts (walnuts & almonds), oils, avocado per week - if not,take [place] 3 Fatty acids: DHA & SAV 1095-3029 mg per day. ?Other names: cod liver [...] page and click on events for link https://www.Easy Tempo.com/events/[email or web address]/ ??? [facility] Milk Hour, at 2:30 pm Run by LIZ Mosley Go to [facility] FB page and send message to get link https://www.Easy Tempo.Hactus/SADAR 3D/ ??? [facility] holding virtual meetings the first Wednesday of each month, 8-9 pm, and the Third Wednesday, 10 - 11 am. Go to [facility] and [place] FB page; message to get link https://www.Easy Tempo.Hactus/LLLofGoldAmanuel/?hc_location=[facility] ??? [facility] offers a Lounge every Wednesday 12pm - 1pm, run by Yessenia Fernandes [facility] Leader Sign up via link at Possibility Space/cbe- https://www.Possibility Space/cbe- ??? [facility] is offering virtual support groups every Wednesday, 10:30 am - 12 pm, run bynurse [place] Https://www.Easy Tempo.Hactus/events/[email or web address]/ Classes: ??? [facility] is offering virtual and care classes: https://www.Possibility Space/education-workshops ??? BirthEd childbirth and education offering virtual classes https://www.DonorPro.com/workshops : OUTPATIENT RESOURCES -Schedule an appointment with a [facility] ABDOUL who is also a Studio Model by calling [phone]. Temitope Larkin IBROBERTO, CNM at [facility] on Wednesday, Mihaela Burns CNM at [facility] on Tuesdays and [facility] on . [facility] Clinics located at [place]???[facility] Call: [phone]. ??? Inpatient support ??? Outpatient appointments ??? Telephone consultation ??? Breast-feeding classes available through [facility] health improvement [facility]: Baby Caf?? and interested in ? [...] for the Baby Caf?? closest to you! [facility] [address] [place] [address] Wednesday: 10am-12pm [facility] [address] [place] [address] Wednesday 4-6pm [facility] [address] [place] [address] Wednesday 10am-12:30pm ong [facility] [address] [place] [address] Wednesdays: 4-6pm Hmong, Ethiopian, and Burmese which is may be available at some sites. For more information, please contact: Beatris Borges@[facility]. or [phone] -[facility]: www.[facility] hospitaler.Hactus -Attend a baby weigh in at [place]. consultants are available to answer questions [place]: Tuesdays 1:00 - 2:00 [facility]: Mondays 1:00 - 2:00 -Attend a New Mamma group or a Second Time Mama group at [place]. -Enlightened Mama: www.WSO2enedArachnystn.com -Attend one of the New Mama groups at [facility] in [facility]. [facility] also offers one-on-one in home and in office consults. -[place]: www.acosta.org/ -Attend a Mayurihe League meeting. Multiple groups in several locations throughout the [facility]. The meetings are no-cost and always informative education session through Internatal Belem Oconnor Held at [facility] the of each month at 7pm - Information on medication use while : http://toxnet.nlm.nih.gov/newtoxnet/lactmed.htm Other Online Resources: ??? healtheast.org/baby sign up for free online weekly e-mail ??? healtheast.org/maternity ??? Breastfeedingmadesimple.com ??? Llli.org (Belem [place]ano Baileyeverett) ??? Normalfed.com ??? Womenshealth.gov/ ??? Zealify.Hactus ??? T[employer] Energy AG.Hactus ??? https://Epicsell/abcs/ Click on Learn More About Attachment -New Parent Connection Drop-In: In collaboration with Diamond, Sample Paster Family Education (ECFE), a program of [address], offers ongoing classes for new parents [...] meet Tuesdays, from 4 to 5 PM -[facility] New Mama Group: www.Possibility Space/fyjw-fwi-rbsm-group -Attend Animeeples Umthunzi New Mama. Groups located at three locations: [place], [place] and Only. Sign up online. Additional Resources:? -[employer] College of Nurse-Midwives (ACNM) http://www.cell assembly pinner.org/; look at the informational handouts at http://www.cell assembly pinner.org/Kssal-Sgov-Ghpds www.mymidwife.org ? -Women's Health.gov: http://www.womenshealth.gov/a-z-topics/index.html ? -Sample Paster and Family Education (ECFE): ECFE offers parents [...] women may experience. Resources: - and Support [place]: www.[facility].org Who We Are: We are a group of mental health & practitioners, service organizations, and mother volunteers who provides services to those struggling with a , loss, or mood disorder through the Helpline, professional training, our resource list and website. What We Do: We provide support, advocacy, awareness, and training about mental health in [place]. Community Resource List: This is a list of resources within our community. http://[facility].org/communityresourcelist PSYCHOTHERAPISTS/CONSULTANTS This is a list of licensed mental health professionals who have advanced clinical skills in the treatment of mood and anxiety disorders (PMADs). Http://[facility].org/mentalhealthproviderresourcelist INTEGRATIVE MEDICINE PRACTITIONERS: This is a list of licensed providers who practice Integrative Medicine: a form of treatment that combines alternative medicine with evidence based medicine in an effort to treat the ???whole person?? (the person, not just the disease). http://[facility] [place].org/integrativemedicineproviders PSYCHIATRIC CARE This is a list of licensed Psychiatrists who have advanced clinical skills in the treatment and medication management for PMADs and lactating mothers. Http://[facility] [place].org/psychiatryproviderresroucelist Click on the links below to find detailed profiles and contact information of providers who have been screened and approved as having advanced training in the area of PMADs. Please note: [facility] does not endorse a specific provider. The list is in alphabetical order by city. You can also search for providers by [facility] or [facility] using the search box. Please click on the Show box to the upper right to advance to the next page. Youmay also call our Helpline at [phone] if you would like for our Helpline volunteer to find a provider for you. - Depression Support Group: Weekly groups at no cost through [facility], Tuesdays, 1:30-3:00 p.m., at [facility], [address] [facility], [address]. [place], Wednesdays, 1:30-3:00 p.m., at [facility], [address] To register for the group or get more information, call [phone]. - Depression Support Group: Outpatient Intensive Treatment program for women with mood disorders [facility] Mother/Baby Program -[facility] Resource Guide Women???s Mental Health at [facility] This website provides a range of [...] National Suicide Prevention Lifeline: Suicide Prevention Hotline: 2-432-CSXACQO National Depression Hotline: 8-947-OTM-MOMS Support International (PSI) PPD Helpline: (not a [...] Case Report Gynecologic Cytology Report ? Case: [id number] ? Authorizing Provider: ??Paty Edmondson, ? Collected: ? 06/11/2020 1433 ? 0 2:53 PM ? ZIYAD,ABDOUL ? INSTALLATIONS INSPECTOR Ordering Location: ? Lemuel Santizo [facility] ?? Received: ?06/11/2020 1433 ? Vaibhav Hay[facility] ? First Screen: ? Davida Glass CT ? (ASCP) ? Specimen: ?SUREPATH PAP, SCREENING, Endocervical/cervical ? Interpretation Negative for squamous intraepithelial le deb or malignancy Negative for at ??2:53 PM squamous 0 2:53 PM intraepithelial INSTALLATIONS INSPECTOR lesion or malignancy. Result Flag Normal Normal 0 2:53 PM INSTALLATIONS INSPECTOR Specimen Satisfactory for Adequacy evaluation, 0 2:53 PM endocervical/tra INSTALLATIONS INSPECTOR nsformation zone component present Reflex Testing Yes regardless of result 0 2:53 PM INSTALLATIONS INSPECTOR High Risk? No 0 2:53 PM INSTALLATIONS INSPECTOR LMP/Menopause Date 0 2:53 PM INSTALLATIONS INSPECTOR Abnormal No Bleeding 0 2:53 PM INSTALLATIONS INSPECTOR Patient Status 0 2:53 PM INSTALLATIONS INSPECTOR None Control/Hormone 0 2:53 PM s INSTALLATIONS INSPECTOR Previous Normal 2015 0 2:53 PM INSTALLATIONS INSPECTOR Previous no Abnormal? 0 2:53 PM INSTALLATIONS INSPECTOR Cervical normal, parous Appearance 0 2:53 PM INSTALLATIONS INSPECTOR Specimen Anatomical Collection Method Collection Time Receive d Time (Source) Location / / Volume Laterality Specimen from CERVIX UTERI 06/11/2020 2:33 PM 06/12/20 20 8:28 genital system STRUCTURE / CDT AM CDT (specimen) Unknown Narrative This result has an attachment that is no t available. Paty Lewis [facility] BE[facility]ER AP HPV High [...] its performa nce characteristics determined by the [facility], Molecular Diagnostics Laboratory. It has [...] PM CDT Comment: Performed and/or entered by: [address] [address] Specimen Anatomical Collection Method Collection Time Receive [...] Depression Total Score: 7 07/27/2018 7:15 AM INSTALLATIONS INSPECTOR documented as of this encounter Care Teams Timber Repairer Relationship Specialty Start Date End Date Rashida Pederson APRN SECURITIES SALES ASSOCIATE PCP - General Nurse Practitioner 10/08/14 [address] [place] [address] Rashida Pederson APRN SECURITIES SALES ASSOCIATE Assigned PCP 10/14/14 07/26/21 [address] [place], [place] [id number] documented as of this encounter
--- OUTSIDE RECORDS SUMMARY | 2022-07-16 10:44 | XMS_ITS | Encounter Summary ---
:1985 Author Organization [place] Address [address] [place] [address] Care Team Providers Name Role Phone Rashida Pederson APRN CYLINDER CHECKER Primary Care Provider [phone] Rashida Pederson APRN CYLINDER CHECKER Unavailable [phone] Reason for Visit Reason Comments Patient Request Encounter Details Date Type Department Care Team Description 04/19/2020 Communication - [facility] Karis Hale ent Request [facility] Midwifery A CNLemuel Patient Access [address] [address] [phone] Social History Tobacco Use Types Packs/Day Years [...] Depression Total Score: 7 07/27/2018 7:15 AM WASTE HANDLING TECHNICIAN documented as of this encounter Care Teams Service Rig Operator Relationship Specialty Start Date End Date Rashida Pederson APRN CYLINDER CHECKER PCP - General Nurse Practitioner 10/08/14 [address] [place] [address] Rashida Pederson APRN CYLINDER CHECKER Assigned PCP 10/14/14 07/26/21 [address] [place] [address] documented as of this encounter
--- OUTSIDE RECORDS SUMMARY | 2022-07-16 10:44 | XMS_ITS | Encounter Summary ---
:1985 [facility] Address [address] [place] [address] Home Phone Mobile Phone Email Address Email Address Preferred Language Tanzanian Marital Status Single Holiness Affiliation Unknown Race White Ethnic Group Unknown Author Organization [place] Address [address] [place] [address] Care Team Providers Name Role Phone Rashida Pederson APRN ALUMNI RELATIONS MANAGER Primary Care Provider [phone] Rashida Pederson APRN ALUMNI RELATIONS MANAGER Unavailable [phone] Paty Lewis [facility] Unavailable [phone] Reason for Visit Reason Comments Consult Encounter Details Date Type Department Care Team Description 05/23/2020 Ambulatory - [facility] Mihaela Burns C NM Other disorders of ; [address] D R nipple pain [place] [address] [facility] (Work) [place] [phone] [place], [place] (Fax) [address] Social History Tobacco Use [...] of delivery: vaginal 's MD: BALA Guy, [facility]. Logan gives her permission for today's note [...] mouth daily., Disp: , Rfl: 0 ??? prenat.vits,ant,wmr-homt-emoan ( VITAMIN) Tab, Take 2 tablets by [...] Depression Total Score: 7 07/27/2018 7:15 AM HANGERSMITH documented as of this encounter Care Teams Log Sorting Supervisor Relationship Specialty Start Date End Date Rashida Pederson, PCP - General Nurse Practitioner 2/23/15 SOCIAL MEDIA SENIOR ASSOCIATE ALUMNI RELATIONS MANAGER [address] [place] [address] Rashida Pederson, Assigned PCP 10/14/14 SOCIAL MEDIA SENIOR ASSOCIATE ALUMNI RELATIONS MANAGER [address] [place] [address] Paty Lewis Assigned OBGYN Provider 02/28/21 12/13/21 ABDOUL Mcgee [address] [address] documented as of this encounter
--- OUTSIDE RECORDS SUMMARY | 2022-07-16 10:44 | XMS_ITS | Encounter Summary ---
:1985 Author Organization [place] Address [address] [place] [address] Care Team Providers Name Role Phone Rashida Pederson APRN FINAL INSPECTOR BALANCE WHEEL Primary Care Provider [phone] Rashida Pederson APRN FINAL INSPECTOR BALANCE WHEEL Unavailable [phone] Paty Lewis [facility] Unavailable [phone] Reason for Visit Reason Comments Consult Encounter Details Date Type Department Care Team Description 05/02/2020 [facility] Mihaela Burns C NM Other disorders [facility] [address] [place] [address] [address] [place] [address] [facility] (Work) [place] [phone] [place], [place] (Fax) [address] Social History Tobacco Use [...] of delivery: vaginal 's MD: BALA Guy, [facility]. [place] gives her permission for today's [...] 8 (eight) hours., Disp: , Rfl: ??? prenat.vits,ant,pyg-tesb-lxhxp ( VITAMIN) Tab, Take 2 tablets by [...] For a good video showing sidelying : Https://www.youtube.com/watch?v=UCO4dpuViaG For an excellent video on paced bottle feeding: http://www.lowmilSkimo TVupply.awc-pcfxa-zbprmuh/ Good resources: www.[address] Https://www.Ingogo.WeShow/blog/ The Baby Book: Dr. Chakraborty and Shruti Wilder The Womanly Art of by [facility] For help with using baby carriers: [...] nipple pain. You can find it here: www.Lucernex.WeShow. Click on expecting a term baby. I [...] technique here, made by Dominique Leigh MD, general merchandise manager and specialist: https://med.[facility]/newborns/professional-education//maximbrigidin p-rmez-mctsyghzdk.html You don't need to worry a lot [...] Total Score: 7 07/27/2018 7:15 AM PATIENT FLOW COORDINATOR documented as of this encounter Care Teams Health Records Technology Teacher Relationship Specialty Start Date End Date Rashida Pederson, PCP - General Nurse Practitioner 10/08/14 LEARNING MANAGER FINAL INSPECTOR BALANCE WHEEL [address] [place] [address] Rashida Pederson, Assigned PCP 10/14/14 LEARNING MANAGER FINAL INSPECTOR BALANCE WHEEL [address] [place] [address] Paty Lewis Assigned OBGYN Provider 02/28/21 12/13/21 ABDOUL Mcgee [address] [place] [address] documented as of this encounter
--- OUTSIDE RECORDS SUMMARY | 2022-07-16 10:44 | XMS_ITS | Encounter Summary ---
:1985 Author Organization [facility] Address [address] [place] [address] Care Team Providers Name Role Phone Rashida Pederson APRN, CNP Primary Care Provider [phone] Rashida Pederson APRN, CNP Unavailable [phone] Encounter Details Date Type Department Care Team Description 04/29/2020 Home Care/Hospice - [facility] [place], [address] [place] [address] Social History Tobacco Use Types [...] Depression Total Score: 7 07/27/2018 7:15 AM INFORMATION SERVICES CONSULTANT documented as of this encounter Care Teams Steel Box Toe Inserter Relationship Specialty Start Date End Date Rashida Pederson APRN CNP PCP - General Nurse Practitioner 10/08/14 [address] [place], [place] [id number] Rashida Pederson, ZIYAD REVIEW ANALYST Assigned PCP 10/14/14 07/26/21 [address] [place] [address] documented as of this encounter
--- OUTSIDE RECORDS SUMMARY | 2022-07-16 10:44 | XMS_ITS | Encounter Summary ---
:1985 Author Organization [place] Address [address] [place] [address] Care Team Providers Name Role Phone Rashida Pederson APRN SALON DESIGNER Primary Care Provider [phone] Rashida Pederson APRN SALON DESIGNER Unavailable [phone] Encounter Details Date Type Department Care Team Description 05/04/2020 Communication - [facility] Karis Hale, [facility] [address] [facility] [address] [facility] [address] [facility] [address] [place] [address] Social History Tobacco Use Types [...] Depression Total Score: 7 07/27/2018 7:15 AM STEEPLE JACK documented as of this encounter Care Teams Certified Adaptive Physical Educator Relationship Specialty Start Date End Date Rashida Pederson APRN SALON DESIGNER PCP - General Nurse Practitioner 10/08/14 [address] [place] [address] Rashida Pederson APRN SALON DESIGNER Assigned PCP 10/14/14 07/26/21 [address] [place] [address] documented as of this encounter
--- OUTSIDE RECORDS SUMMARY | 2022-07-16 10:44 | XMS_ITS | Encounter Summary ---
:1985 Author Organization [facility] Address [address] [place] [address] Care Team Providers Name Role Phone Rashida Pederson APRN LABOR RELATIONS WORKER Primary Care Provider [phone] Rashida Pederson APRN LABOR RELATIONS WORKER Unavailable [phone] Reason for Visit Reason Comments Care [id number] Encounter Details Date Type Department Care Team Description 03/25/2020 Office [facility] Fatoumata Park, At [place] gh risk for venous thromboembolism (VTE); Visit - [facility] CN Rh negative, antepartum; [facility] Diamond High-risk , third t rimester [address] [facility] [address] [place] [address] [facility] [address] [place] [address] [phone] [address] (Work) [phone] Social History Tobacco Use Types Packs/Day Years [...] Park APRN, CNM Service: -- Author Type: Layout Man Filed: 03/25/2020 2:38 PM Encounter Date: 03/25/2020 Status: Signed Ramp Attendant: Fatoumata Park APRN, CNM (Layout Man) Addended by: FATOUMATA PARK. on: 03/25/2020 02:38 [...] 03/26/2020 1:21 PM CDT Intended use: The FitStar Xpert GBS LB Assay, performe d on the Pristine.io?? CritiSense Systems, is a qualitative in vitro diagnostic [...] or monitor treatment for GBS infections. ??The Ungalliid Xpert GBS LB Assay is intended for use in hospital, reference or state laboratory settings. ??The device is not intended for ixiic-sj-bdke use. Methodology: The Pristine.io Instrument Systems automat e and integrate sample [...] Signature Hemoglobin 12.3 12.0 - 16.0 03/25/2020 [facility] g/dL 1:17 PM CDT [facility] Specimen Anatomical Collection Method / Collection Time Recei merry Time (Source) Location / Volume Laterality Blood specimen Venipuncture / 03/25/2020 1:16 03/25/20 20 1:16 (specimen) Unknown PM CDT PM CDT Fatoumata Mckinney Vivian [facility] - BLOOD ORDERABLES Performing Organization Address City/State/ZIP Code Phon e Number [facility] [place], [place] [address] Layout Man Lab [address] [place] [address] [facility] documented in this encounter Visit Diagnoses Diagnosis At high risk for venous thromboembolism (VTE) Rh negative, antepartum 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
--- OUTSIDE RECORDS SUMMARY | 2022-07-16 10:44 | XMS_ITS | Encounter Summary ---
:1985 Author Organization [place] Address [address] [place] [address] Care Team Providers Name Role Phone Rashida Pederson APRN FUNERAL DIRECTOR'S ASSISTANT Primary Care Provider [phone] Rashida Pederson APRN FUNERAL DIRECTOR'S ASSISTANT Unavailable [phone] Paty Lewis [facility] Unavailable [phone] Reason for Visit Reason Comments Consult Encounter Details Date Type Department Care Team Description 05/07/2020 [facility] Mihaela Burns C [place] [facility] [address] [place] [address] [address] [place] [address] [address] [facility] (Work) [place] [phone] [place], [place] (Fax) [address] Social History Tobacco Use [...] of delivery: vaginal Infant's MD: BALA Guy, [facility]. Logan gives her permission for today's [...] 8 (eight) hours., Disp: , Rfl: ??? prenat.vits,ant,biu-sxuh-gouhk ( VITAMIN) Tab, Take 2 tablets by [...] Depression Total Score: 7 07/27/2018 7:15 AM SUBSTATION SUPERVISOR documented as of this encounter Care Teams Ball Points Inspector Relationship Specialty Start Date End Date Rashida Pederson, PCP - General Nurse Practitioner 10/08/14 PACKAGING OPERATOR FUNERAL DIRECTOR'S ASSISTANT [address] [place] [address] Rashida Pederson, Assigned PCP 10/14/14 PACKAGING OPERATOR FUNERAL DIRECTOR'S ASSISTANT [address] [place] [address] Paty Lewis Assigned OBGYN Provider 02/28/21 12/13/21 ABDOUL Mcgee [address] [place] [address] [address] documented as of this encounter
--- OUTSIDE RECORDS SUMMARY | 2022-07-16 10:44 | XMS_ITS | Encounter Summary ---
:1985 Author Organization [place] Address [address] [place] [address] Care Team Providers Name Role Phone Rashida Pederson APRN BEEHIVE KILN CHARCOAL BURNER Primary Care Provider [phone] Rashida Pederson APRN BEEHIVE KILN CHARCOAL BURNER Unavailable [phone] Reason for Visit Reason Comments Non Stress Test Encounter Details Date Type Department Care Team Description 04/19/2020 Hospital Encounter M [facility] Paula Park CNM [address] [address] [place], [place] [phone] (Wo rk) [address] [phone] Social History Tobacco Use Types Packs/Day Years [...] such as evening of primrose oil and 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 [...] an EDC of 04/18/20 who presented to [facility] for evaluation of NST. Denies leaking of [...] 04/19/20 1508 Results: Reactive NST Provider:Paula Park DNP,DENTURES LAB TECHNICIAN,ABDOUL TT with patient 0mn FHR strip reviewed [...] Depression Total Score: 7 07/27/2018 7:15 AM GEOLOGICAL SCIENCE TEACHER documented as of this encounter Care Teams Electronics Engineering Professor Relationship Specialty Start Date End Date Rashida Pederson APRN BEEHIVE KILN CHARCOAL BURNER PCP - General Nurse Practitioner 10/08/14 [address] [place], [place] [id number] Rashida Pederson APRN BEEHIVE KILN CHARCOAL BURNER Assigned PCP 10/14/14 07/26/21 [address] [place], [place] [id number] documented as of this encounter
--- OUTSIDE RECORDS SUMMARY | 2022-07-16 10:44 | XMS_ITS | Encounter Summary ---
:1985 Author Organization [place] Address [address] [place] [address] Care Team Providers Name Role Phone Rashida Pederson APRN DIRECTOR OF PRODUCT MANAGEMENT Primary Care Provider [phone] Rashida Pederson APRN DIRECTOR OF PRODUCT MANAGEMENT Unavailable [phone] Reason for Visit Reason Comments Care 38w6d Encounter Details Date Type Department Care Team Description 04/10/2020 Office [facility] Junie Saavedra h-risk , third trimester; Visit - [facility] A, CNLemuel History of pulmonary embolism; [place] [address] [place] BMI 39.0-39.9,adult; [address] At high risk for venous thromboembolism (VTE); Drive [address] Rh negative, antepartum [facility] [address] [place] [address] [phone] [address] (Work) [phone] Social History Tobacco Use Types Packs/Day Years [...] Depression Total Score: 7 07/27/2018 7:15 AM STRIP FEEDER documented as of this encounter Care Teams Wild Animal Caretaker Relationship Specialty Start Date End Date Rashida Pederson APRN DIRECTOR OF PRODUCT MANAGEMENT PCP - General Nurse Practitioner 10/08/14 [address] [place] [address] Rashida Pederson, ZIYAD DIRECTOR OF PRODUCT MANAGEMENT Assigned PCP 10/14/14 07/26/21 [address] [place] [address] documented as of this encounter
--- OUTSIDE RECORDS SUMMARY | 2022-07-16 10:44 | XMS_ITS | Encounter Summary ---
:1985 Author Organization [place] Address [address] [place] [address] Care Team Providers Name Role Phone Rashida Pederson APRN, CNP Primary Care Provider [phone] Rashida Pederson APRN, CNP Unavailable [phone] Encounter Details Date Type Department Care Team Description 04/27/2020 [facility] Rosita clarke [address] [place] [address] Social History Tobacco Use Types [...] Depression Total Score: 7 07/27/2018 7:15 AM HUMAN RESOURCES RECRUITER documented as of this encounter Care Teams Switchboard And Control Room Operator Relationship Specialty Start Date End Date Rashida Pederson APRN CNP PCP - General Nurse Practitioner 10/08/14 [address] [place] [address] Rashida Pederson, ZIYAD SECURITIES SETTLEMENT PROCESSOR Assigned PCP 10/14/14 07/26/21 [address] [place] [address] documented as of this encounter
--- OUTSIDE RECORDS SUMMARY | 2022-07-16 10:44 | XMS_ITS | Encounter Summary ---
:1985 Author Organization [place] Address [address] [place] [address] Care Team Providers Name Role Phone Rashida Pederson APRN DIRECT OF REAL ESTATE Primary Care Provider [phone] Rashida Pederson APRN DIRECT OF REAL ESTATE Unavailable [phone] Reason for Visit Reason Comments Induction Of Labor Encounter Details Date Type Department Care Team Description 04/25/2020 - [facility] Paula Park NSVD (no rmal spontaneous vaginal delivery); 04/27/2020 Encounter [facility] SAMUEL History of pulmonary embolism; [facility] [address] [facility] BMI 39.0-39 .9,adult; [address] At high risk for venous thromboembolism (VTE) [address] [place] [phone] Social History Tobacco Use Types Packs/Day Years [...] breast pump for home use Referral to [facility] skilled Nurse visit for [...] Vitamin Tab Dose: 2 tablet Generic drug: prenat.vits,ant,zzu-urks-yrgrb 2 tablets, Oral, DAILY SLOW FE ORAL [...] optimal maternal healthprior. -Outpatient resources reviewed including [employer] [facility] [employer] [facility], [facility], community groups. referral provided as needed. -Offered home visit by RN. Accepted and ordered if insurance allows. -Has breast pump at home, declines Rx. -Discharge to home today. Advised CNM to call at 1 week . Follow-up at 2 and 6 weeks in clinic or sooner as needed. Patient instructed to call the CNM scheduling number for appointment at [phone]. -Continue Lovenox prophylaxis x 6 weeks , orders completed. Subjective: Logan Sandoval feels ready for discharge. She is very pleased with her experience! [place] well supported to achieve her goals for [...] Support at home identified MIL who is physical therapy teacher and will be their day care as [...] MSAF Afebrile Plan: At 1200, Dr. Marin, [facility], was called to room to assess [...] H/o PE MSAF Afebrile Plan: Dr. Marin, [facility], consulted for persistent anterior lip and [...] as indicated -Pt encouraged to utilize epidural OCCUPATIONAL MEDICINE OFFICER button prn for discomfort -Anticipate progress and [...] 98.1 ??F (36.7 ??C) SpO2: 100% FHR: 1007-4590: 155bpm, moderate variability + accels, no decels. 6075-7351: baseline appears to rise to 160-165bpm following [...] AM Admission H&P Logan Sandoval, FERMÍN 1985, [facility] PCP: Rashida Pederson CNP, Extended Emergency Contact Information Primary Emergency Contact: SandovalDillon garcia [facility] Mobile Relation: Spouse Secondary Emergency Contact: PER PT , DECLINED [facility] Relation: Declined Chief Complaint: <principal problem not specified> HPI: Logan Sandoval, is a 34 y.o., at 41w0d, LMP 07/13/19, Estimated Date of Delivery: 04/18/20, confirmed by ultrasound at 20 weeks, admitted to [facility] on 04/25/2020 at 0745 secondary to: cervical ripening and IOL. History: Logan Sandoval began care with [facility] Certified Nurse- Midwives at the [facility] on 10/05/19 at 12 weeks [...] Virus RT-PCR Final Performed and/or entered by: [address] [address] ??? SARS-CoV-2 Virus Specimen Source 04/24/2020 Nasopharyngeal Final ??? SARS-CoV-2 PCR Result 04/24/2020 NEGATIVE Final SARS-CoV2 (COVID-19) RNA not detected, presumed negative. ??? SARS-COV-2 PCR COMMENT 04/24/2020 Testing was performed using the Xpert Xpress SARS-CoV-2 Assay on the Your.MD Final Comment: [email or web address]. Additional information about this Emergency [...] COVID-19. This test was validated by the [facility] Infectious Diseases Diagnostic Laboratory. This laboratory is certified under the Clinical Laboratory Improvement Amendments of 1988 (CLIA-88) as qualified to perform high complexity laboratory testing. Performed and/or entered by: [address] [address] Routine on 04/23/2020 Component Date Value Ref [...] Cartridge 0 04/24/2020 at Unknown time ??? prenat.vits,ant,yeh-bldl-jeedh ( VITAMIN) Tab Take 2 tablets by [...] appearance:Pleasant, well groomed Psych: AAO x3 Skin: Laverne, warm & dry HEENT: unremarkable Cardiovascular: RRR, [...] Cervical Exam: As above Heart Rate: (per manager alliance) Uterine Activity: (per manager alliance) Notable AP/IP factors to date: 1.) Blood [...] 30 minutes at bedside and in the [facility] obtaining and clarifying the above history, performing the physical exam, education and counseling and developing this plan of care. >50% spent on counseling and coordination of care. Provider:Coretta Carolina APRN, CNM documented in this encounter Consult Notes Andrew Marin MD - 04/26/2020 10:57 AM CDT I was asked to see this patient in consultation by nurse artillery maintenance supervisor Diana Kilgore. The patient is a 34-year-old [...] labor and she can begin pushing. The artillery maintenance supervisor will monitor this and I can be [...] assessed and addressed Lashaun Manzo Note - Joyce Finney RN - 04/27/2020 [...] sharp count is correct. Andrew Marin MD [facility] [phone] CC1: Bandt documented in this encounter Plan [...] logist Time Signature Treponema Negative Negative 04/25/2020 [facility] Antibody Total 3:16 PM CDT [facility] Specimen Anatomical Collection Method / Collection Time Recei merry Time (Source) Location / Volume Laterality Blood specimen Venipuncture / 04/25/2020 9:42 04/25/20 20 (specimen) Unknown AM CDT 12:13 PM CDT Coretta Carolina CNM LAB - BLOOD ORDERABLES Performing Organization Address City/State/ZIP Code Phon e Number [place] [address] [facility] [id number] [place] [address]'S LABORATORY CBC with platelets (04/25/2020 9:42 AM CDT) P athologist Signature WBC 10.9 4.0 - 11.0 04/25/2020 HEALTH thou/uL 10:05 AM CDT [facility] RBC Count 4.00 3.80 - 04/25/2020 HEALTH 5.40 10:05 AM CDT [facility] mill/uL [facility] LABORATORY Hemoglobin 12.0 12.0 - 04/25/2020 HEALTH 16.0 g/dL 10:05 AM CDT [facility] Hematocrit 35.5 35.0 - 04/25/2020 HEALTH 47.0 % 10:05 AM CDT [facility] MCV 89 80 - 100 04/25/2020 HEALTH fL 10:05 AM CDT [facility] MCH 30.0 27.0 - 04/25/2020 HEALTH 34.0 pg 10:05 AM CDT [facility] MCHC 33.8 32.0 - 04/25/2020 HEALTH 36.0 g/dL 10:05 AM CDT [facility] RDW 13.0 11.0 - 04/25/2020 HEALTH 14.5 % 10:05 AM CDT [facility] Platelet Count 160 140 - 440 04/25/2020 HEALTH thou/uL 10:05 AM CDT [facility] Mean Platelet 10.2 8.5 - 12.5 04/25/2020 HEALTH Volume fL 10:05 AM CDT [facility] Specimen Anatomical Collection Method / Collection Time Recei merry Time (Source) Location / Volume Laterality Blood specimen Venipuncture / 04/25/2020 9:42 04/25/20 20 9:51 (specimen) Unknown AM CDT AM CDT Coretta Carolina CNM LAB - BLOOD ORDERABLES Performing Organization Address City/State/ZIP Code Phon e Number [facility] [place] [address] Lab [address] [facility] [address] [place] [address] [place] [address] LABORATORY TYPE AND SCREEN, ADULT [...] Organization Address City/State/ZIP Code Phon e Number [facility] B[facility]OD [facility]ANK [facility] [place] [address] [address] [place] [address] documented in this encounter Visit Diagnoses Diagnosis (normal spontaneous vaginal deliver y) Normal delivery History of pulmonary embolism Personal history of pulmonary embolism BMI 39.0-39.9,adult Body Mass Index 39.0-39.9, adult At high risk for venous thromboembolism (VTE) documented in this encounter Additional Health Concerns Assessment Noted Time PHQ-9 Depression Total Score: 7 07/27/2018 7:15 AM ROD GREASER documented as of this encounter Care Teams Unisaw Operator Relationship Specialty Start Date End Date Rashida Pederson APRN DIRECT OF REAL ESTATE PCP - General Nurse Practitioner 10/08/14 [address] [place] [address] Rashida Pederson APRN DIRECT OF REAL ESTATE Assigned PCP 10/14/14 07/26/21 [address] [place] [address] documented as of this encounter
--- OUTSIDE RECORDS SUMMARY | 2022-07-16 10:44 | XMS_ITS | Encounter Summary ---
:1985 Author Organization [place] Address [address] [place] [address] Care Team Providers Name Role Phone Rashida Pederson APRN INCINERATOR PLANT GENERAL SUPERVISOR Primary Care Provider [phone] Rashida Pederson APRN INCINERATOR PLANT GENERAL SUPERVISOR Unavailable [phone] Encounter Details Date Type Department Care Team Description 03/25/2020 Communication - [facility] Paula Park CNM [address] [address] [address] [place] [address] Social History Tobacco Use Types [...] Depression Total Score: 7 07/27/2018 7:15 AM NEON TUBE BENDER documented as of this encounter Care Teams Head Of Merchandise Buying Relationship Specialty Start Date End Date Rashida Pederson APRN INCINERATOR PLANT GENERAL SUPERVISOR PCP - General Nurse Practitioner 10/08/14 [address] [place], [place] [id number] Rashida Pederson APRN INCINERATOR PLANT GENERAL SUPERVISOR Assigned PCP 10/14/14 07/26/21 [address] [place], [place] [id number] documented as of this encounter
--- OUTSIDE RECORDS SUMMARY | 2022-07-16 10:44 | XMS_ITS | Encounter Summary ---
:1985 Author Organization [place] Address [address] [place] [address] Care Team Providers Name Role Phone Rashida Pederson APRN HEAD ATHLETIC TRAINER/STRENGTH COACH Primary Care Provider [phone] Rashida Pederson APRN HEAD ATHLETIC TRAINER/STRENGTH COACH Unavailable [phone] Encounter Details Date Type Department Care Team Description 04/26/2020 Anesthesia - [facility] Mary Sibley MD [address] [place] [address] [place] [address] Social History Tobacco Use Types Packs/Day Years Used Date Smoking Tobacco: Former Cigarettes 0.5 10 Quit : 07/19/2012 Smokeless Tobacco: Never Alcohol Use Standard Drinks/Week Comments Yes 0 (1 standard drink = 0.6 oz pure alcoho l) 1-4d 1x/wk Sex Assigned at Date Recorded Not on file documented as of this encounter OR Notes Anesthesia Procedure Notes - Mray Sibley MD - 04/27/2020 10:01 AM CDT [...] Depression Total Score: 7 07/27/2018 7:15 AM GROCERY TEAM MEMBER documented as of this encounter Care Teams Graphic Design Teacher Relationship Specialty Start Date End Date Rashida Pederson APRN HEAD ATHLETIC TRAINER/STRENGTH COACH PCP - General Nurse Practitioner 10/08/14 [address] [place], [place] [phone] Rashida Pederson APRN HEAD ATHLETIC TRAINER/STRENGTH COACH Assigned PCP 10/14/14 07/26/21 [address] [place], [place] [phone] documented as of this encounter
--- OUTSIDE RECORDS SUMMARY | 2022-07-16 10:44 | XMS_ITS | Encounter Summary ---
:1985 Author Organization [place] Address [address] [place] [address] Care Team Providers Name Role Phone Rashida Pederson APRN PING PONG TABLE ASSEMBLER Primary Care Provider Rashida Pederson APRN PING PONG TABLE ASSEMBLER Unavailable Reason for Visit Reason Comments Care Encounter Details Date Type Department Care Team Description 04/17/2020 Office [facility] Anita Key h-risk , third trimester; Visit - [facility] Rojas [facility] BMI 39.0-39.9,adult; [facility] [address] [facility] History of pulmonary embolis m; [address] [facility] [address] At high risk for venous thromboembolism (VTE); [address] [address] Rh negative, antepartum; [place], [place] Post-term pr egnancy, 40-42 weeks of gestation Center [address] [place], [place] [phone] [address] (Work) [phone] Social History Tobacco Use Types Packs/Day Years [...] IV Pitocin is indicated in labor. This ghost writer spoke with Dr. Amaury Navarro, NAYELI anesthesia [...] , 0730. Paty Lewis APRN, CNM is admission nurse and notified & COVID-19 testing ordered. BPP [...] Key APRN, CNM Service: -- Author Type: Underwriting Service Representative Filed: 04/18/2020 6:00 PM Encounter Date: 04/17/2020 Status: Signed Medical Supply Technician: Anita Key APRN, CNM (Underwriting Service Representative) Addended by: ANITA KEY on: 04/18/2020 06:00 [...] Depression Total Score: 7 07/27/2018 7:15 AM MOSAIC FLOOR LAYER documented as of this encounter Care Teams Human Resources Consultant Relationship Specialty Start Date End Date Rashida Pederson APRN PING PONG TABLE ASSEMBLER PCP - General Nurse Practitioner 10/08/14 [address] [place] [address] Rashida Pederson APRN PING PONG TABLE ASSEMBLER Assigned PCP 10/14/14 07/26/21 [address] [place] [address] documented as of this encounter
--- OUTSIDE RECORDS SUMMARY | 2022-07-16 10:44 | XMS_ITS | Encounter Summary ---
:1985 Author Organization [place] Address [address] [place] [address] Care Team Providers Name Role Phone Rashida Pederson APRN WASTE MACHINE OPERATOR Primary Care Provider [phone] Rashida Pederson APRN WASTE MACHINE OPERATOR Unavailable [phone] Reason for Visit Reason Comments Care 40W5D Encounter Details Date Type Department Care Team Description 04/23/2020 Office [facility] , third trimester; Visit - [facility] Paty Briseno ed BP without diagnosis of hypertension; Diamond Mcgee CNM History of pulmonary embolism; [address] [facility] [facility] k for venous thromboembolism (VTE) Drive [address] [place], [place] Center [address] [place], [place] [phone] [address] (Work) [phone] Social History Tobacco Use Types Packs/Day Years [...] CNM - 04/23/2020 2:40 PM CDT Logan aSndoval is here for MELISSA at 40w5d. Following [...] cuff). She sent the reading in through [employer] yesterday and reported that she normally has [...] this. IOL set for at 0730 at [facility]. Plan for on-call CNM to make [...] (specimen) Unknown PM CDT PM CDT Paty [facility] LAB - BLOOD ORDERABLES ALT (04/23/2020 3:06 PM CDT) athologist Signature ALT <9 0 - 45 U/L 04/23/2020 6:48 PM CDT Specimen Anatomical Collection Method / Collection Time Recei merry Time (Source) Location / Volume Laterality Blood specimen Venipuncture / 04/23/2020 3:06 04/23/20 20 6:12 (specimen) Unknown PM CDT PM CDT Paty [facility] LAB - BLOOD ORDERABLES Uric acid (04/23/2020 3:06 PM CDT) athologist Signature Uric Acid 5.3 2.0 - 7.5 04/23/2020 6:50 mg/dL PM CDT Specimen Anatomical Collection Method / Collection Time Recei merry Time (Source) Location / Volume Laterality Blood specimen Venipuncture / 04/23/2020 3:06 04/23/20 20 6:12 (specimen) Unknown PM CDT PM CDT Paty [facility] LAB - BLOOD ORDERABLES Protein [...] the clinical context for interpreta tion. Paty [facility] LAB - URINE ORDERABLES CBC [...] Unknown PM CDT PM CDT Paty Lewis [facility] LAB - BLOOD ORDERABLES Partial thromboplastin time (04/23/2020 3:06 PM CDT) athologist Signature aPTT 27 24 - 37 04/23/2020 seconds 6:37 PM CDT Specimen Anatomical Collection Method / Collection Time Recei merry Time (Source) Location / Volume Laterality Blood specimen Venipuncture / 04/23/2020 3:06 04/23/20 20 6:14 (specimen) Unknown PM CDT PM CDT Paty Lewis [facility] LAB - BLOOD ORDERABLES INR [...] Depression Total Score: 7 07/27/2018 7:15 AM BATCH MIXER documented as of this encounter Care Teams Slp Relationship Specialty Start Date End Date Rashida Pederson APRN WASTE MACHINE OPERATOR PCP - General Nurse Practitioner 10/08/14 [address] [place] [address] Rashida Pederson APRN WASTE MACHINE OPERATOR Assigned PCP 10/14/14 07/26/21 [address] [place] [address] documented as of this encounter
--- OUTSIDE RECORDS SUMMARY | 2022-07-16 10:44 | XMS_ITS | Encounter Summary ---
:1985 Author Organization [place] Address [address] [place] [address] Care Team Providers Name Role Phone Rashida Pederson APRN FOCUS PULLER Primary Care Provider [phone] Rashida Pederson APRN FOCUS PULLER Unavailable [phone] Encounter Details Date Type Department Care Team Description 04/17/2020 Communication - [facility] Junie Saavedra, [facility] [address] [place] [address] Social History Tobacco Use Types [...] Depression Total Score: 7 07/27/2018 7:15 AM HEALTHCARE NETWORK CONSULTANT documented as of this encounter Care Teams Personnel Assistant Relationship Specialty Start Date End Date Rashida Pederson APRN FOCUS PULLER PCP - General Nurse Practitioner 10/08/14 [address] [place], [place] [phone] Rashida Pederson APRN FOCUS PULLER Assigned PCP 10/14/14 07/26/21 [address] [place], [place] [phone] documented as of this encounter
--- OUTSIDE RECORDS SUMMARY | 2022-07-16 10:44 | XMS_ITS | Encounter Summary ---
:1985 Author Organization [place] Address [address] [place] [address] Care Team Providers Name Role Phone Rashida Pederson APRN PRECISION DANCER Primary Care Provider [phone] Rashida Pederson APRN PRECISION DANCER Unavailable [phone] Reason for Visit Reason Comments Hypertension Encounter Details Date Type Department Care Team Description [facility] A[facility]OUL [facility] DRU CALL[place]AY [facility]5 [facility] [address] [facility] 200 [facility] (Work) [place] [address] Social History Tobacco Use Types [...] a further discussion on IOL with the chin strap cutter on that day, she declined the IOL and planned follow up in the clinic for 04/25/20. After reviewing her visit note, it appears her BP was mildly elevated at 138/93, thus initiating the call today. Logan states she knew about the elevation and reported the next reading in triage was normal- states she and the chin strap cutter talked about it as well. She feels [...] of call after review. She lives in [place] and declines triage visit today for BP [...] Depression Total Score: 7 07/27/2018 7:15 AM CITY COUNCIL MEMBER documented as of this encounter Care Teams Bpm Analyst Relationship Specialty Start Date End Date Rashida Pederson APRN CNP PCP - General Nurse Practitioner 10/08/14 [address] [place] [address] Rashida Pederson APRN CNP Assigned PCP 10/14/14 07/26/21 [address] [place] [address] documented as of this encounter
--- OUTSIDE RECORDS SUMMARY | 2022-07-16 10:44 | XMS_ITS | Encounter Summary ---
:1985 Author Organization [place] Address [address] [place] [address] Care Team Providers Name Role Phone Rashida Pederson APRN CONSULTING SYSTEMS ENGINEER Primary Care Provider [phone] Rashida Pederson APRN CONSULTING SYSTEMS ENGINEER Unavailable [phone] Reason for Visit Reason Comments Medication Question Encounter Details Date Type Department Care Team Description 03/26/[address] [facility] [place], [facility] Midwifery [facility] Question Patient Access [address] [id number] Social History Tobacco Use Types Packs/Day [...] pandemic. She has a call into the [facility] [facility] and is awaiting their response. [...] Depression Total Score: 7 07/27/2018 7:15 AM HYPO DIPPER documented as of this encounter Care Teams Filter Screen Cleaner Relationship Specialty Start Date End Date Rashida Pederson APRN CONSULTING SYSTEMS ENGINEER PCP - General Nurse Practitioner 10/08/14 [address] [place] [address] Rashida Pederson APRN CONSULTING SYSTEMS ENGINEER Assigned PCP 10/14/14 07/26/21 [address] [place], [place] [id number] documented as of this encounter
--- OUTSIDE RECORDS SUMMARY | 2022-07-16 10:44 | XMS_ITS | Encounter Summary ---
:1985 Author Organization [place] Address [address] [place] [address] Care Team Providers Name Role Phone Rashida Pederson APRN SALON PROFESSIONAL Primary Care Provider [phone] Rashida Pederson APRN SALON PROFESSIONAL Unavailable [phone] Encounter Details Date Type Department Care Team Description 04/19/2020 Hospital Encounter M [facility] Junie Saavedra Post-term [facility] A, [facility] , 40-42 [facility] 18[address] [facility] weeks of gestation [address] [place], [place] [phone] Social History Tobacco Use Types Packs/Day Years [...] PM CDT EXAM: US BIOPHYSICAL PROFILE LOCATION: [facility] DATE/TIME: 04/19/2020 2:00 PM INDICATION: [...] the original. EXAM: US BIOPHYSICAL PROFILE LOCATION: [facility] DATE/TIME: 04/19/2020 2:00 PM INDICATION: [...] Depression Total Score: 7 07/27/2018 7:15 AM DETAIL SUPERVISOR documented as of this encounter Care Teams Scrub Technician Relationship Specialty Start Date End Date Rashida Pederson APRN SALON PROFESSIONAL PCP - General Nurse Practitioner 10/08/14 [address] [place], [place] [phone] Rashida Pederson APRN SALON PROFESSIONAL Assigned PCP 10/14/14 07/26/21 [address] [place], [place] [id number] documented as of this encounter
--- OUTSIDE RECORDS SUMMARY | 2022-07-16 10:44 | XMS_ITS | Encounter Summary ---
:1985 Author Organization [place] Address [address] [place] [address] Care Team Providers Name Role Phone Rashida Pederson APRN SURVEYOR HELPER ROD Primary Care Provider [phone] Rashida Pederson APRN SURVEYOR HELPER ROD Unavailable [phone] Encounter Details Date Type Department Care Team Description 04/22/2020 [facility] Paty Lewis [facility] [place] Diamond [address] [place], [place] [address]LEONELA CALLAWAY [address] [place] [address] [facility] 200 [facility] [place] [address] Social History Tobacco Use Types [...] Depression Total Score: 7 07/27/2018 7:15 AM MINE SURVEYOR documented as of this encounter Care Teams Histology Teacher Relationship Specialty Start Date End Date Rashida Pederson APRN SURVEYOR HELPER ROD PCP - General Nurse Practitioner 10/08/14 [address] [place], [place] [phone] Rashida Pederson APRN SURVEYOR HELPER ROD Assigned PCP 10/14/14 07/26/21 [address] [place], [place] [phone] documented as of this encounter
--- OUTSIDE RECORDS SUMMARY | 2022-07-16 10:44 | XMS_ITS | Encounter Summary ---
:1985 Author Organization [place] Address [address] [place] [address] Care Team Providers Name Role Phone Rashida Pederson APRN POST OFFICE MARKUP CLERK Primary Care Provider Rashida Pederson APRN POST OFFICE MARKUP CLERK Unavailable [phone] Encounter Details Date Type Department Care Team Description 04/29/2020 Home Care/H[facility]ice - [facility] [place], [address] [place] [address] Social History Tobacco Use Types [...] Depression Total Score: 7 07/27/2018 7:15 AM SUEDING AND BUFFING MACHINE OPERATOR documented as of this encounter Care Teams Supervisor Mirror Fabrication Relationship Specialty Start Date End Date Rashida Pederson APRN POST OFFICE MARKUP CLERK PCP - General Nurse Practitioner 10/08/14 [address] [place], [place] [phone] Rashida Pederson APRN POST OFFICE MARKUP CLERK Assigned PCP 10/14/14 07/26/21 [address] [place] [address] documented as of this encounter
--- OUTSIDE RECORDS SUMMARY | 2022-07-16 10:44 | XMS_ITS | Encounter Summary ---
:1985 Author Organization [place] Address [address] [place] [address] Care Team Providers Name Role Phone Rashida Pederson APRN BACK SHOE WORKER Primary Care Provider [phone] Rashida Pederson APRN BACK SHOE WORKER Unavailable [phone] Reason for Visit Reason Comments Patient Request Encounter Details Date Type Department Care Team Description 04/17/2020 Communication - [facility] Junie Saavedra ient Request [facility] Midwifery AABDOUL Patient Access [address] [address] [phone] Social History Tobacco Use Types Packs/Day Years [...] only have openings on Wednesday here at [facility]. She scheduled for Wednesday but would like KZ to call her and speak to her and confirm it is ok to be seen on Wednesday documented in this encounter Plan of Treatment Not on filedocumented as of this encounter Visit Diagnoses Not on filedocumented in this encounter Additional Health Concerns Assessment Noted Time PHQ-9 Depression Total Score: 7 07/27/2018 7:15 AM PROBATION MANAGER documented as of this encounter Care Teams Manuscript Reader Relationship Specialty Start Date End Date Rashida Pederson APRN CNP PCP - General Nurse Practitioner 10/08/14 [address] [place], [place] [phone] Rashida Pederson APRN BACK SHOE WORKER Assigned PCP 10/14/14 07/26/21 [address] [place] [address] documented as of this encounter
--- OUTSIDE RECORDS SUMMARY | 2022-07-16 10:44 | XMS_ITS | Encounter Summary ---
:1985 Author Organization [place] Address [address] [place] [address] Care Team Providers Name Role Phone Rashida Pederson APRN RUG DRYING MACHINE OPERATOR Primary Care Provider [phone] Rashida Pederson APRN RUG DRYING MACHINE OPERATOR Unavailable [phone] Reason for Visit Reason Comments Care Encounter Details Date Type Department Care Team Description 04/04/[address] [facility] Karis Hale High -risk Visit - [facility] A, [facility] , third [place] [address] [place] trimester [address] [place] [address] [phone] (Work) [phone] Social History Tobacco Use Types Packs/Day Years [...] provider. There are a few in the [facility] especially noted for their work with women. ACUPUNCTURE: 1.) (Multiple CNMs) Felix Decker [facility] [address] [place] [address] [email or web address] 2.) (Multiple CNMs) Carli [facility] [place] [address] [facility] [place], [place] [phone] [email or web address] 3.) (AO) Leia Pierce [facility] [address] [place], [place] [phone] [email or web address] 4.) (Multiple CNMs) Marcia Martin [facility] [address] [place] [address] [email or web address] 5.) (VH) [facility] [address] [place] [address] [email or web address] (Sliding fee scale) 6.) (BZ) [facility] [address] [facility], [address] [place] [address] [email or web address] 7.) (BZ) [address], [address] [place] [address] [email or web address] 8.) (AJ) Nik[facility] [address] [place] [address] [email or web address] 9.) [facility] Account Development Representative Clinic [phone] Ext. 1 to schedule an appointment. [address] [place] [address] [email or web address] The [facility] Account Development Representative Clinic is an inexpensive way to invest [...] printed out and presented at the clinic legal secretary receptionist desk for a $18 introductory treatment. Interns are available Wednesday- 8:30 a.m. to 9:00 p.m. and Wednesday-Wednesday 8:30 a.m. to 5:30 p.m. Prices and offerings subject to change. 10.) [facility] [address] [place] [address] p: [phone] [email or web address]/ The [facility] is an integrative health clinic of [facility]. The clinic is located on the [facility] in [place], [place]. We believe integrative health care focuses [...] patients are seen by faculty clinicians. For senior care assistant, our faculty clinicians are assisted by upper-trimester students of [facility]. Our clinical services include chiropractic, acupuncture, Tajik herbal medicine, massage therapy, naturopathic medicine and physical therapy services. 11.) [facility] [employer] [facility] [address] [email or web address] Advanced students from the [employer] ([employer]), supervisedby a Finisher Merchant Products and Nurse Practitioner will be offering community style acupuncture at [facility] at no cost. We will have one to two student practitioner per week. This service is by appointment only. documented in this encounter Plan of Treatment Not on filedocumented as of this encounter Visit Diagnoses Diagnosis High-risk , third trimester documented in this encounter Additional Health Concerns Assessment Noted Time PHQ-9 Depression Total Score: 7 07/27/2018 7:15 AM VISUAL STYLIST documented as of this encounter Care Teams Footwear Production Machine Operator Relationship Specialty Start Date End Date Rashida Pederson APRN CNP PCP - General Nurse Practitioner 10/08/14 [address] [place] [address] Rashida Pederson APRN CNP Assigned PCP 10/14/14 07/26/21 [address] [place] [address] documented as of this encounter
--- OUTSIDE RECORDS SUMMARY | 2022-07-16 10:44 | XMS_ITS | Encounter Summary ---
:1985 Author Organization [place] Address [address] [place] [address] Care Team Providers Name Role Phone Rashida Pederson APRN, CNP Primary Care Provider [phone] Rashida Pederson APRN, CNP Unavailable [phone] Encounter Details Date Type Department Care Team Description 04/25/2020 Communication - [place] [facility] Que [place] LPN [address] [place] [phone] Social History Tobacco Use Types Packs/Day Years [...] Depression Total Score: 7 07/27/2018 7:15 AM MEASUREMENT AND VERIFICATION ENGINEER documented as of this encounter Care Teams Behavioral Health Therapist Relationship Specialty Start Date End Date Rashida Pederson APRN CNP PCP - General Nurse Practitioner 10/08/14 [address] [place] [address] Rashida Pederson, ZIYAD POCKET MARKER Assigned PCP 10/14/14 07/26/21 [address] [place] [address] documented as of this encounter
--- OUTSIDE RECORDS SUMMARY | 2022-07-16 10:44 | XMS_ITS | Encounter Summary ---
:1985 Author Organization [place] Address [address] [place] [address] Care Team Providers Name Role Phone Rashida Pederson APRN ROAD MANAGER Primary Care Provider [phone] MANAGER Unavailable [phone] Encounter Details Date Type Department Care Team Description 04/18/2020 Communication - [facility] Junie Saavedra, [facility] [address] [place] [address] [place] [address] Social History Tobacco Use Types [...] Depression Total Score: 7 07/27/2018 7:15 AM KNUCKLER documented as of this encounter Care Teams Plating Inspector Relationship Specialty Start Date End Date Rashida Pederson APRN ROAD MANAGER PCP - General Nurse Practitioner 10/08/14 [address] [place], [place] [phone] Rashida Pederson APRN ROAD MANAGER Assigned PCP 10/14/14 07/26/21 [address] [place], [place] [phone] documented as of this encounter
--- OUTSIDE RECORDS SUMMARY | 2022-07-16 10:44 | XMS_ITS | Encounter Summary ---
:1985 Author Organization [place] Address [address] [place] [address] Care Team Providers Name Role Phone Rashida Pederson APRN PROFESSIONAL FEE CODER Primary Care Provider [phone] Rashida Pederson APRN PROFESSIONAL FEE CODER Unavailable [phone] Encounter Details Date Type Department Care Team Description 04/24/2020 Hospital Encounter [facility] Diana Kilgore APRN CNM [address] [place] [address] Dr [address] [place] [phone] [facility] Paula Park CNM [address] [place] [address] Dr [address] [place] [id number] [address] Social History Tobacco Use Types [...] (Coronavirus) by PCR (04/24/2020 10:46 AM CDT) [facility] Method Time Signature SARS-CoV-2 Nasopharyngeal 04/24/2020 Virus 2:38 PM CDT Specimen Source SARS-CoV-2 NEGATIVE 04/24/2020 PCR Result 2:38 PM CDT Comment: SARS-CoV2 (COVID-19) RNA not de tected, presumed negative. SARS-CoV-2 PCR Comment Testing was performed using the 04/24/2020 2:38 PM CDT Xpert Xpress SARS-CoV-2 Assay on the Rally Fit Comment: [employer]. Additiona l information about this [...] COVID-19. This test was validated by the [facility]ious Diseases [facility]. This laboratory is certified under the Clinical Laboratory Improvement Amendments of 1988 (CLIA-88) as qualified to perform high complexity laboratory testing. Performed and/or entered by: [facility] [address] [place] [address] Specimen (Source) Anatomical Collection Method Collection Time [...] Depression Total Score: 7 07/27/2018 7:15 AM HORIZONTAL BORING MILL SET UP OPERATOR documented as of this encounter Care Teams Plodding Operator Relationship Specialty Start Date End Date Rashida Pederson APRN PROFESSIONAL FEE CODER PCP - General Nurse Practitioner 10/08/14 [address] [place], [place] [phone] Rashida Pederson APRN PROFESSIONAL FEE CODER Assigned PCP 10/14/14 07/26/21 [address] [place], [place] [phone] documented as of this encounter
--- OUTSIDE RECORDS SUMMARY | 2022-07-16 10:44 | XMS_ITS | Encounter Summary ---
:1985 Author Organization [facility] Address [address] [place] [address] Care Team Providers Name Role Phone Rashida Pederson APRN SHOWER ATTENDANT Primary Care Provider [phone] Rashida Pederson APRN SHOWER ATTENDANT Unavailable [phone] Reason for Visit Reason Comments Care Delivered 04/26/2020 Encounter Details Date Type Department Care Team Description 05/13/2020 Office Visit - [facility], M follow-up [facility] [address] [facility] [address] [facility] [address] [place] [phone] [place], [place] (Work) [address] Social History Tobacco Use [...] with concerns. Recommended Alma Prasad group (as [facility] employee it is free). 5. Follow-up at [...] concerns and need to speak with a supervisor fur floor worker immediately, please call the on-call supervisor fur floor worker at [phone]. If you have a non-emergent question or would like to schedule a follow up appointment, please call the clinic supervisor fur floor worker at [phone]. Thank you for sharing your experience with the [facility] Midwives. Congratulations on the of your baby! [...] care provider before starting an exercise program. Https://eTherapeutics/ Http://www.Meusonic/ @PelvicGuru1 @MyPelvicFloorMuscles @The.Vagina.isper Taking Care of your [...] partner having a vasectomy. Reliable resources: ? [place] [employer] Nurse-Midwives (ACNM) http://www.supervisor fur floor worker.org/; look at the informational handouts at http://www.supervisor fur floor worker.org/Bnszm-Yzys-Jsfxm ?? Women's Health.gov: http://www.womenshealth.gov/a-z-topics/index.html FDA - Nutrition ?www.mypyramid.gov? Under For Consumers, click on and women. ? Vaccines : Centers for Disease Control and Prevention (CDC) http://www.cdc.gov/vaccines/ ? [facility] www.AgileSourceinic.com ? When researching information on the web, [...] D rich foods: Cod Liver Oil (1Tbsp), [place], Mackerel, Tuna, fortified milk and yogurt, Beef and liver, sardines, egg, fortified cereals, belizean cheese.? Take supplements with fattiest meal.? ? 2-3 (4) oz servings of fish, seafood, nuts (walnuts & almonds), oils, avocado per week - if not,take [place] 3 Fatty acids: DHA & SAV 7606-8471 mg per day. ?Other names: cod liver oil, fish oil.Take with fattiest meal. ? ? & RESOURCES : Virtual Support: During this time of isolation, families need even more community! Here are some area organizations offering virtual support groups for : ??? [facility] Cafe Support Group, Tuesdays at 10:30 am Run by LIZ Rubin of [employer] Go to [employer] Facebook page and click on events for link [email or web address]://[email or web address]/ ??? [facility] Milk Hour, at 2:30 pm Run by LIZ Mosley Go to [facility] Center + [facility] FB page and send message to get link https://www.[email or web address].com/Affordit.comundations/ ??? Harleen Oconnor [facility]/[place] holding virtual meetings the first Wednesday of each month, 8-9 pm, and the Third Wednesday, 10 - 11 am. Go to Belem Oconnor of [place] and [place] FB page; message to get link [email or web address]://www.[email or web address].com/AngelafGKasia/?hc_location=[facility] ??? [facility] offers a Lounge every Wednesday 12pm - 1pm, run by Harleen Robles Leader Sign up via link at Friends Around/cbe- https://www.Friends Around/cbe- ??? [facility] is offering virtual support groups every Wednesday, 10:30 am - 12 pm, run by IBCLC Https://www.[email or web address].com/[email or web address]/ Classes: ??? [facility] is offering virtual and care classes: https://www.Friends Around/education-workshops ??? BirthEd childbirth and education offering virtual classes https://www.Trumakermn.[address]workshops : OUTPATIENT RESOURCES -Schedule an appointment with a [facility] ABDOUL who is also a Electric Distribution Checker by calling [phone]. Temitope Larkin IBROBERTO, CNM at [facility] on Wednesday, Mihaela Burns CNM at [facility] on Tuesdays and [facility] on . [facility] Clinics located at [place]???[facility] Call: [phone]. ??? Inpatient support ??? Outpatient appointments ??? Telephone consultation ??? Breast-feeding classes available through [facility]/NEC/[facility] health improvement partnership: Baby Caf?? and interested [...] for the Baby Caf?? closest to you! [facility] [address] [place] [address] Wednesday: 10am-12pm [facility] [address] [place] [address] Wednesday 4-6pm [facility] [address] [place] [address] Wednesday 10am-12:30pm [facility] [place] [facility] [address] [place] [address] Wednesdays: 4-6pm Hmong, Citizen Of [place], and Belarusian which is may be available at some sites. For more information, please contact: Beatris Borges@ar.[facility]. or [phone] -[facility]: www.pa[facility] oliver memorial hospitalTruzip.[address]. -Attend a baby weigh in at [place]. consultants are available to answer questions [place]: Tuesdays 1:00 - 2:00 [facility], [facility]: Mondays 1:00 - 2:00 -Attend a New Mamma group or a Second Time Mama group at [place]. -Enlightened Mama: www.enlightenedAlexis Bittarpa.[address] -Attend one of the New Mama groups at [facility] in [facility]. [facility] also offers one-on-one in home and in office consults. -LaLecheLeague: www.lllofmlizas.org/ -Attend a Lukas League meeting. Multiple groups in several locations throughout the [facility]. The meetings are no-cost and always informative education session through [facility] Belem Oconnor Held at [facility] the of each month at 7pm - Information on medication use while : http://toxnet.nlm.nih.gov/newtoxnet/lactmed.htm Other Online Resources: ??? healtheast.org/baby sign up for free online weekly e-mail ??? healtheast.org/maternity ??? Breastfeedingmadesimple.com ??? Llli.org (Belem Oconnor) ??? Normalfed.com ??? Womenshealth.gov/ ??? drop.io.[address] ??? TekBrix IT Solutions ??? https://Dinero Limited.[address]./abcs/ Click on Learn More About Attachment -New Parent Connection Drop-In: In collaboration with [place], Throw Out Clerk Family Education (ECFE), a program of [address], offers ongoing classes for new parents [...] meet Tuesdays, from 4 to 5 PM -Muecs New Mama Group: www.Friends Around/htrw-blf-qkbo-group -Attend RotaBan New Mama. Groups located at three locations: [facility] and [place]. Sign up online. Additional Resources:? -[place] College of Nurse-Midwives (ACNM) http://www.supervisor fur floor worker.org/; look at the informational handouts at http://www.supervisor fur floor worker.org/Uebnk-Mgog-Sglhu www.mymidwife.org ? -Women's Health.gov: http://www.womenshealth.gov/a-z-topics/index.html ? -Throw Out Clerk and Family Education (ECFE): ECFE offers parents [...] women may experience. Resources: - and Support [place]: www.[facility].org Who We Are: We are a group of mental health & practitioners, service organizations, and mother volunteers who provides services to those struggling with a , loss, or mood disorder through the Helpline, professional training, our resource list and website. What We Do: We provide support, advocacy, awareness, and training about mental health in [place]. Community Resource List: This is a list of resources within our community. http://ppsupportpa.org/communityresourcelist PSYCHOTHERAPISTS/CONSULTANTS This is a list of licensed mental health professionals who have advanced clinical skills in the treatment of mood and anxiety disorders (PMADs). Http://ppsupportpa.org/mentalhealthproviderresourcelist INTEGRATIVE MEDICINE PRACTITIONERS: This is a list [...] in the area of PMADs. Please note: [facility] does not endorse a specific provider. The list is in alphabetical order by city. You can also search for providers by city or zip code using the search box. Please click on the Show box to the upper right to advance to the next page. Youmay also call our Helpline at [phone] if you would like for our Helpline volunteer to find a provider for you. - Depression Support Group: Weekly groups at no cost through [facility], Tuesdays, 1:30-3:00 p.m., at [facility], [address] [facility], [address]. [place], Wednesdays, 1:30-3:00 p.m., at [facility], [address] To register for the group or get more information, call [phone]. - Depression Support Group: Outpatient Intensive Treatment program for women with mood disorders [facility] Mother/Baby Program -[facility] Resource Guide Women???s Mental Health at [facility] This website provides a range of [...] National Suicide Prevention Lifeline: Suicide Prevention Hotline: 4-387-AATSBIP National Depression Hotline: 1-719-DTR-MOMS Support International (PSI) PPD Helpline: (not a 24-hour hotline) documented in this encounter Plan of Treatment Not on filedocumented as of this encounter Visit Diagnoses Diagnosis Routine follow-up documented in this encounter Additional Health Concerns Assessment Noted Time PHQ-9 Depression Total Score: 7 07/27/2018 7:15 AM FOUNDRY MELT SUPERVISOR documented as of this encounter Care Teams Assistant Professor Of Surgery Relationship Specialty Start Date End Date Rashida Pederson APRN SHOWER ATTENDANT PCP - General Nurse Practitioner 10/08/14 [address] [place], [place] [id number] Rashida Pederson APRN SHOWER ATTENDANT Assigned PCP 10/14/14 07/26/21 [address] [place], [place] [id number] documented as of this encounter
--- OUTSIDE RECORDS SUMMARY | 2022-07-16 10:45 | XMS_ITS | Encounter Summary ---
:1985 Author Organization [facility] Address [address] [place] [address] Care Team Providers Name Role Phone Rashida Pederson APRN DYNAMITE CARTRIDGE CRIMPER Primary Care Provider [phone] Rashida Pederson APRN DYNAMITE CARTRIDGE CRIMPER Unavailable [phone] Reason for Visit Reason Comments Consult Encounter Details Date Type Department Care Team Description 09/05/2019 Office Visit - [facility] Ruchi Decker MD History of pulmonary embolism; [address] Obesity affecting , antepartum [address] [phone] Social History Tobacco Use Types Packs/Day Years [...] Comments Blood Pressure 118/80 09/05/2019 12:55 PM MECHANICAL ENGINEERING LECTURER Pulse 68 09/05/2019 12:55 PM MECHANICAL ENGINEERING LECTURER Temperature - - Respiratory Rate - - Oxygen Saturation - - Inhaled Oxygen Concentration - - Weight 110.7 kg (244 lb) 09/05/2019 12:55 PM MECHANICAL ENGINEERING LECTURER Height 167 cm (5' 5.75) 09/05/2019 12:55 PM MECHANICAL ENGINEERING LECTURER Body Mass Index 39.68 09/05/2019 12:55 PM MECHANICAL ENGINEERING LECTURER documented in this encounter Progress Notes Ruchi [...] Occupational History ??? 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 Financial resource strain: None [...] on phone: None Gets together: None Attends methodist service: None Active member of club or [...] mouth 2 (two) times a day. ??? prenat.vits,ant,naw-pzbz-ipsje ( VITAMIN) Tab Take 2 tablets by [...] the patient with the majority in counseling. ANICAL ENGINEERING LECTURER documented in this encounter Plan of Treatment Not on filedocumented as of this encounter Visit Diagnoses Diagnosis History of pulmonary embolism Personal history of pulmonary embolism Obesity affecting , antepartum documented in this encounter Additional Health Concerns Assessment Noted Time PHQ-9 Depression Total Score: 7 07/27/2018 7:15 AM MECHANICAL ENGINEERING LECTURER documented as of this encounter Care Teams Pipe Fitter Supervisor Maintenance Relationship Specialty Start Date End Date Rashida Pederson APRN DYNAMITE CARTRIDGE CRIMPER PCP - General Nurse Practitioner 10/08/14 [address] [place] [address] Rashida Pederson APRN CNP Assigned PCP 10/14/14 07/26/21 [address] [place] [address] documented as of this encounter
--- OUTSIDE RECORDS SUMMARY | 2022-07-16 10:45 | XMS_ITS | Encounter Summary ---
:1985 Author Organization [facility] Address [address] [place] [address] Care Team Providers Name Role Phone Rashida Pederson APRN, CNP Primary Care Provider [phone] Rashida Pederson APRN LOAN UNDERWRITER Unavailable [phone] Encounter Details Date Type Department Care Team Description 03/26/2019 E-Visit [facility] Rashida Pederson (Primary Dx) Artie ZIYAD Benitez LOAN UNDERWRITER [address] [address] [phone] (Wo rk) Social History Tobacco Use Types [...] Depression Total Score: 7 07/27/2018 7:15 AM RISK MANAGEMENT PROFESSIONAL documented as of this encounter Care Teams Acid Retort Operator Relationship Specialty Start Date End Date Bg, Rashida Eli, TOOL AND DIE REPAIR LOAN UNDERWRITER PCP - General Nurse Practitioner 10/08/14 [address] [place], [place] [phone] Rashida Pederson APRN LOAN UNDERWRITER Assigned PCP 10/14/14 07/26/21 [address] [place], [place] [id number] documented as of this encounter
--- OUTSIDE RECORDS SUMMARY | 2022-07-16 10:45 | XMS_ITS | Encounter Summary ---
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
--- OUTSIDE RECORDS SUMMARY | 2022-07-16 10:45 | XMS_ITS | Encounter Summary ---
:1985 [facility] Address [address] [place] [address] Home Phone Mobile Phone Email Address Email Address Preferred Language Faroese Marital Status Single Taoist Affiliation Unknown Race White Ethnic Group Unknown Author Organization [facility] Address [address] [place] [address] Care Team Providers Name Role Phone Rashida Pederson APRN MAINTENANCE DATA ANALYST Primary Care Provider [phone] Rashida Pederson APRN MAINTENANCE DATA ANALYST Unavailable [phone] BgRashida cornejo APRN MAINTENANCE DATA ANALYST Unavailable [phone] Reason for Visit Reason Comments Medication Refill Encounter Details Date Type Department Care Team Description 09/30/[address] [facility] Tiffanie Irvin, Medication Refill [address] [place] [phone] [place], [place] [phone] (Wo rk) Social History Tobacco Use Types [...] RN, BSN Message handled by Nurse Triage. 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 (H) Anxiety Anxiety state, unspecified documented in this encounter Additional Health Concerns Assessment Noted Time PHQ-9 Depression Total Score: 11 09/11/2017 7:41 AM CS T documented as of this encounter Care Teams Metal Annealer Relationship Specialty Start Date End Date Rashida Pederson APRN PCP - General Nurse Practitioner 10/08/14 MAINTENANCE DATA ANALYST [address] [place] [address] Rashida Pederson APRN PCP - Assigned PCP 10/14/14 10/18/18 MAINTENANCE DATA ANALYST [address] [place] [address] Rashida Pederson APRN Assigned PCP 10/14/14 1 09/26/20 MAINTENANCE DATA ANALYST [address] [place] [address] documented as of this encounter
--- OUTSIDE RECORDS SUMMARY | 2022-07-16 10:45 | XMS_ITS | Encounter Summary ---
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
--- OUTSIDE RECORDS SUMMARY | 2022-07-16 10:45 | XMS_ITS | Encounter Summary ---
:1985 Author Organization [facility] Address [address] [place] [address] Care Team Providers Name Role Phone Rashida Pederson APRN LABORER DRYING DEPARTMENT Primary Care Provider [phone] Rashida Pederson APRN LABORER DRYING DEPARTMENT Unavailable [phone] Reason for Visit Reason Comments Test Encounter Details Date Type Department Care Team Description 08/24/2019 Office Visit - [facility] Karis Hale ble ; [facility] [place], [facility] examination or test, positive result; [facility] [facility] History of pulmonary embolis m; [address] BMI 40.0-44.9, adult (H) Drive [address] [facility] [address] [place], [place] [phone] [address] (Work) [phone] Social History Tobacco Use Types Packs/Day Years [...] Comments Blood Pressure 116/80 08/24/2019 2:00 PM LINOLEUM FLOOR LAYER Pulse 68 08/24/2019 2:00 PM LINOLEUM FLOOR LAYER Temperature - - Respiratory Rate 16 08/24/2019 2:00 PM LINOLEUM FLOOR LAYER Oxygen Saturation - - Inhaled Oxygen Concentration - - Weight 111.6 kg (246 lb) 08/24/2019 2:00 PM LINOLEUM FLOOR LAYER Height 167 cm (5' 5.75) 08/24/2019 2:00 PM LINOLEUM FLOOR LAYER Body Mass Index 40.01 08/24/2019 2:00 PM LINOLEUM FLOOR LAYER documented in this encounter Progress Notes Karis Hale, ABDOUL - 08/24/2019 2:00 PM CST Confirmation of Visit Subjective: Logan is a 34 y.o. y.o. female who presents to clinic today for a confirmation of visit. She is accompanied by her spouse Dillon. She is an existing [facility] patient but new to [facility] care. 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 2. Discussed maternity care options at [facility]- philosophy, care models, and locations. 3. [...] First trimester screen + NT (11-13.6wks @ [facility]), [facility] (10-12wks), Verify (any time). Pt aware of options and will discuss further at IOB. 6. Pt encouraged to follow-up for IOB visit between 10 and 12 weeks. 7. Reviewed warning signs to call clinic if cramping /bleeding/spotting. 8. Reviewed plan of care with history PE including referral to CLINICAL MANAGER, will consult CNM group on appropriateness of care with CNMs, start lovenox at 8 weeks per recommendations and ordered to pt pharmacy. TT spent with patient, 45 mns, all of which was spent in counseling or coordination of care Karis Hale, LOLA, INDUSTRY OPERATIONS INVESTIGATOR, ABDOUL LEUM FLOOR LAYER documented in this encounter Miscellaneous Notes Patient Instructions - HE - Karis Hale CNM - 08/24/2019 2:00 PM LINOLEUM FLOOR LAYER Welcome to [facility] and thank you for choosing us for your maternity care provider! Congratulations! [facility] Nurse Midwives - Contact information: Appointment line and to get a hold of CNLemuel in clinic Wednesday-Wednesday 8 am - 5 pm: . Thereare some clinics with early start times (1st appointment 7:40 am) and others with evening hours (last appointment 6:20 pm). Most are typically open from 8 am to 5 pm. CNM shop and alteration tailor answering service: . Specify your hospital of choice and leave a brief message for CNM; artificial snow making machine operator will then page CNM who is shop and alteration tailor at your specified hospital and you should [...] nipples and thighs may also change. ?? [place] stretch ivan may appear on your abdomen, [...] the risk of stillbirth or having a pgi-ddhoa-anlgwn baby. If you smoke, quit now. ?? [...] If you haveother questions, talk with a community midwife. Will Working Harm My Baby? In most [...] Which Medications Are Safe? No prescription or wxxu-fkb-stseebe drug is safe for everyone all of the time. But sometimes medications are needed. Be sure your health care provider knows you are . Then use only the medications he or she advises you to take. Please refer to the below resources for further information and discuss concern and questions with your community midwife. Is It True That I Can Overheat [...] the load nearer. ?? Get a good transistor tester. Test the weight of the load. ?? [...] legs can bend. GENETIC SCREENING OPTIONS AT [facility] ??? All testing is optional. We [...] Car Sachs, Sickle Cell, Hemophilia, Muscular Dystrophy, Hope???s disease and many others. ??? Cystic Fibrosis (CF) affects both males and females and people from all racial and ethnic groups. However, the disease is most common among Caucasians of Northern descent. CF is also common among Latinos and Chadian Indians. The disease is less common among [...] A referral to a genetic counselor at [facility] or [facility] can be made by your care provider at any time. ??? This is also tested for in the [place] Metabolic Screen that your receives 24 hours afterbirth. DNA cell Testing: [facility] or [facility]atal (Non-Invasive Testing) ??? At 10 [...] protein). An ultrasound should be able to cotton picker operator any spinal defect as well. ??? Follow-up [...] definitive diagnosis Referrals opportunities include: ??? Metro aluminum welder, [facility], Partners Customer Operations Manager o Offers nuchal translucency ultrasound; does not offer genetic counseling. ??? [facility] and [facility] ([facility]): o Approximately an hour long visit includes 30 min with genetic counselor who discusses all testing available and which ones might be beneficial to you based on age, personal and family history. o Blood will be drawn and the nuchal translucency ultrasound will be discussed and performed if desired. The Free DNA testing ([facility]/[employer]) can be drawn also. o Targeted or detailed Level II ultrasounds are also available with these perinatology groups. : a Healthy Option for You and Your Baby Consider for the healthiest way to feed your baby. Ask your community midwife or physician for more information. The choice of how you will feed your baby is important. Before your baby???s , you???ll want tolearn about the benefits of . [facility] have been designated Baby Friendly; an [...] your baby are staying with us at [facility], we will support whatever feeding choice you make for your baby. Some important considerations: ??? The [place] Academy of Pediatrics, the World Health Organization, [...] that includes preparation. and classesare offered by [facility]. Visit Wiztango for class information. ??? After your baby???s [...] book or find it online at http://www.[facility].org/images/s tories/maternity/VbwxweYsbt-Bfkvomtq-Kdz-Right.pdf or http://www.[facility].org/images/stories/flipbo oks/mizaeppwwt-xqnehdyu-jcw-right/lpvvuiatfi-lamzdnwi-ecp-right.html#p=8 You can sign up for a weekly parenting e-mail that gives support, tips and advice from health healthcare customer service that starts with and continues through the toddler years. To register, go to www.[facility].org/baby at any time during your . : OUTPATIENT RESOURCES Baby Friendly Hospitals and clinics: https://www.[facility].org/maternity/rrmkg-prspollzj-wctr/baby-friendly.html -Schedule an appointment with a [facility] CNLemuel who is also a Hair Stylist by calling [phone] -Schedule an appointment with a [facility] who is also a Hair Stylist by calling [phone]. We see women for visits at [place], [facility]. -Baby Caf?? and interested in ? [...] the Baby Caf?? closest to you! Hmong, Tamazight, and Kosovan which is may be available at some sites. [facility] [address] [place] [address] Wednesday: 10am-12pm [address] [address] Wednesday 4-6pm [address] [address] Wednesday 10am-12:30pm [employer] [facility] [address] [place] [address] Wednesdays: 4-6pm -Attend a baby weigh in at [facility]. consultants are available to answer questions Katja: Tuesdays 1:00 - 2:00 [facility]: Mondays 1:00 - 2:00 www.H2Mob.CaptiveMotion -Attend one of the New Mama groups at [facility] in [facility]. [facility] also offers one-on-one in home and in office consults. www.[facility].CaptiveMotion -Attend a LeLeche League meeting. Multiple groups in several locations throughout the [facility]. The meetings are no-cost and always informative education session through [facility] [place] Www.lllojamesas.org/ Childbirth and Parenting Education: [facility] center: http://H2Mob.CaptiveMotion/ (855) 665-BABY Herminia: (education, yoga & wellness) www.Zylie the Bear.CaptiveMotion EnlRo[facility] General Hospitala: www.Gini & Jony.CaptiveMotion Childbirth collective: (Parent topic nights) www.childbirthcollective.org/ Hypnobabies: www.hypnobabiestThermoCeramix.com/ Hypnobirthing: Http://hypnobirthing.com/ Book Recommendations: Susan Franklin's Birthing From Within--first few chapters include a [...] deciding to wean and deciding not to. [place] College of Nurse-Midwives (ACNM) http://www.community midwife.org/; look at the informational handouts at http://www.community midwife.org/Fwmxu-Kyyg-Pkblk www.mymidwife.org Mother to Baby (Medication and Herbal guidance in ): http://www.mothertobaby.org Toll-Free Hotline: 665.876.4295 LactMed (Medication use while ): http://toxnet.nlm.nih.gov/newtoxnet/lactmed.htm Women's Health.gov: http://www.womenshealth.gov/a-z-topics/index.html Chadian association - http://americanpregnancy.org Centering (group care option): http://centeringhealthcare.org Information about doulas: Childbirth collective: http://www.childbirthcollective.org/ Doulas of [place] (CARRI): www.carri.org [facility] economics professor project: http://twincitiesdoulaproject.com/ Aids Nurse and Family Education (ECFE): ECFE offers parents hands-on learning experiences that will nourish a lifetime of teachable moments. http://ecfe.info/ecfe-home/ October www.[facility].CaptiveMotion FDA - Nutrition www.mypyramid.gov Under For Consumers, click on and women. Centers for Disease Control and Prevention (CDC) - Vaccines : http://www.cdc.gov/vaccines/ When researching information on the web, question the validity of websites. The domains .gov, .KidStart and.org tend to be more reliable information. [...] pills, chews). Take with dairy Vitamin D3 4051-5389 IU geltab daily. Take with fattiest meal. Look for fortified foods also (Dairy,Juice) 2-3 (4) oz servings of fish, seafood, nuts (walnuts & almonds), oils, avocado per week - if not,take Hammond 3 Fatty acids: DHA & SAV 0178-4689 mg per day. Other names: cod liver oil, fish oil. Take with fattiest meal. Some prenatals have DHA, but typically not a sufficient dose. Fish: Do not eat shark, swordfish, katalina mackerel, or tilefish when you are or . They contain high levels of mercury. Limit white (albacore) tuna to no more than 6 ounces per week. Http://www.fda.gov/downloads/ForConsumers/ConsumerUpdates/KDN971708.pdf Touring the Maternity Care Center To schedule a tour at either [facility] or [facility], please do so online using the following links: [facility] - https://www.Kolorificcenter.com/registerlist.asp?s=6&m=303&vs=5&p=2& amp;xrjik=908&ps=1&group=37&it=1&qvi=511 [facility] - https://www.[facility] Strategic Royaltyistrationcenter.com/registerlist.asp?s=6&m=303&vs=5&p=2&a mp;jeggs=680&ps=1&group=38&it=1&bmz=599 You are invited to Meet the [facility] Nurse-Midwives A way to tour the hospital Labor and Delivery unit and meet the midwives that attend births since you may not have the opportunity to meet them during your care. Some sessions are informal meet and greet type social hours, others address a specific concern or topic. Thursday, September 27, 2018 7-8pm [facility] Friday, November 30, 2018 7-8pm [facility], Auditorium A March 7-8pm [facility] Friday June 28, 2019 7-8 pm [facility], Auditorum A Please call [phone] to register LEUM FLOOR LAYER documented in this encounter Plan of Treatment Not on filedocumented as of this encounter Procedures Procedure Name Priority Date/Time Associated Comments Diagnosis HCG QUALITATIVE URINE Routine 08/24/2019 2:04 PM Results for this LINOLEUM FLOOR LAYER procedure are i n the results section. documented in this encounter Results (ABNORMAL) HCG qualitative urine (08/24/2019 2:04 PM LINOLEUM FLOOR LAYER) [facility] Method Time Signature hCG Urine Positive (A) Negative 08/24/2019 [facility] Qualitative 2:06 PM LINOLEUM FLOOR LAYER [facility] Specimen Anatomical Collection Method Collection Time Receive d Time (Source) Location / / Volume Laterality Urine specimen Non-blood 08/24/2019 2:04 PM 020 2:04 (specimen) Collection / LINOLEUM FLOOR LAYER PM LINOLEUM FLOOR LAYER Unknown Narrative [facility] PROJECT CREW WORKER LABORATORY - 08/24/2019 2:0 6 PM LINOLEUM FLOOR LAYER This test is for screening purposes. Res ults should be interpreted along with the clinical picture. Confirmation testing i s available if warranted by ordering Test 143, Beta HCG, Quantitative. Karis Hale CNM LAB - URINE ORDERABLES Performing Organization Address City/State/ZIP Code Phon e Number [id number] PROJECT CRE[facility] WORK[facility] - [place], [place] [address] Sales Engineer Lab [address] [place] [address] [facility] [address] [place] [address] [phone] [facility] documented in this encounter Visit Diagnoses Diagnosis Possible examination or test, unconfirmed examination or test, positive result History of pulmonary embolism Personal history of pulmonary embolism BMI 40.0-44.9, adult (H) Body Mass Index 40.0-44.9, adult documented in this encounter Additional Health Concerns Assessment Noted Time PHQ-9 Depression Total Score: 7 07/27/2018 7:15 AM LINOLEUM FLOOR LAYER documented as of this encounter Care Teams Supervisor Body Assembly Relationship Specialty Start Date End Date Rashida Pederson APRN LABORER DRYING DEPARTMENT PCP - General Nurse Practitioner 10/08/14 [address] [place] [address] Rashida Pederson APRN LABORER DRYING DEPARTMENT Assigned PCP 10/14/14 07/26/21 [address] [place] [address] documented as of this encounter
--- OUTSIDE RECORDS SUMMARY | 2022-07-16 10:45 | XMS_ITS | Encounter Summary ---
:1985 Author Organization [facility] Address [address] [place] [address] Care Team Providers Name Role Phone Rashida Pederson APRN MEDICAL BILLING ASSISTANT Primary Care Provider [phone] Rashida Pederson APRN MEDICAL BILLING ASSISTANT Unavailable [phone] Encounter Details Date Type Department Care Team Description 11/29/2019 Hospital Encounter [facility] Paty Lewis High-risk [facility], CN , [facility] [address] trimester [address] [place], [place] [address] [phone] [place], [place] (Work) [address] [phone] Social History Tobacco Use Types Packs/Day Years [...] Addendum: Additional information provide d by the fibre technologist: Image 8:1 is the placental cord [...] US OB > = 14 WEEKS LOCATION: [facility] DATE/TIME: 11/29/2019 2:56 PM INDICATION: survey. COMPARISON: [...] US OB > = 14 WEEKS LOCATION: [facility] DATE/TIME: 11/29/2019 2:56 PM INDICATION: survey. COMPARISON: [...] Depression Total Score: 7 07/27/2018 7:15 AM LEGISLATIVE ANALYST documented as of this encounter Care Teams Coil Machine Supervisor Relationship Specialty Start Date End Date Rashida Pederson APRN MEDICAL BILLING ASSISTANT PCP - General Nurse Practitioner 10/08/14 [address] [place] [address] Rashida Pederson APRN MEDICAL BILLING ASSISTANT Assigned PCP 10/14/14 07/26/21 [address] [place] [address] documented as of this encounter
--- OUTSIDE RECORDS SUMMARY | 2022-07-16 10:45 | XMS_ITS | Encounter Summary ---
:1985 Author Organization [place] Address [address] [place] [address] Care Team Providers Name Role Phone Rashida Pederson APRN PRINTING ASSISTANT Primary Care Provider [phone] Rashida Pederson APRN PRINTING ASSISTANT Unavailable [phone] Reason for Visit Reason Comments Care Encounter Details Date Type Department Care Team Description [facility] High- risk , second [facility]; [facility] Ruchi Hardin, History of pulmonary embolism; [place] ZIYAD SCHREIBER At high risk for venous thromboembolism (VTE) [address] [place] [phone] Social History Tobacco Use Types Packs/Day Years [...] would you like to be contacted at? [phone]-- Patient would like to receive their AVS by AVS Preference: Julissa. Additional provider notes: see below Phone call duration: 14 minutes Phone call start time: 1: 09 PM Phone call end time: 1: 23 PM Louie Haas [facility] Logan presents virtually via telephone for a routine PNV at 34w 1d. Feeling well! Anticipatory guidance given for next visit: GBS and Hgb. Has good support for labor and : JASON is a creping machine operator and L&D RN, ARLENE is a L&D [...] APRN CNM - 03/08/2020 1:00 PM CDT [facility] - Contact information: Appointment line and to get a hold of CNM in clinic Wednesday-Wednesday 8 am - 5 pm: . Thereare some clinics with early start times (1st appointment 7:40 am) and others with evening hours (last appointment 6:20 pm). Most are typically open from 8 am to 5 pm. CNM receptionist nurse answering service: . Specify your hospital of choice and leave a brief message for CNM; shuffle board operator will then page CNM who is receptionist nurse at your specified hospital and you should [...] F. You are invited to Meet the [employer]wives Former[facility] A way to tour the hospital Labor and Delivery unit and meet the midwives in our group was postponed at the start of hospital restrictions following COVID-19. We will resume these when able and virtual options may be available in the future. Please call [phone] for ongoing updates. Touring the Maternity Care Center At this time we are offering a virtual tour of the Maternity Care Centers at both [facility] and [facility]: [facility]: https://www.[employer].org/Locations/[facility]/Dcyrscnsq-Vkbb-Jyoavd [place]: https://[employer].Strap/overarching-care/the-birthplace/tours https://www.[employer].org/Locations/IkzwecVroc-Ql-Niabf-Hospital/Nhzhrdqaz-Yqwb-C enter/#virtual_tour When in person tours become available, registrations is required. To schedule a tour at either [facility] or [facility], please do so online using the following links: [facility] - https://www.[employer]mit [employer]/registerlist.asp?s=6&m=303&vs=5&p=2& amp;hjigg=768&ps=1&group=37&it=1&ted=038 [facility] - https://www.[employer]/registerlist.asp?s=6&m=303&vs=5&p=2&a mp;mguap=313&ps=1&group=38&it=1&iqk=739 [facility]: https://dps.[place].gov/divisions/ots/fmnfj-mkuvsrdww-qiemwo/Pages/qpi-lwyt-vmujfb.as px [facility] Free Car Seat Distribution Facilities By Appt. Address Contact Information (For appointment) \Yes [facility]\[place],\cell Kay Velásquez)\[email or web address] Yes [facility]\[address]\[place],\cell Angela Calderón)[phone]\[email or web address] Yes [facility]\[address]\[place],\cell Patricia Roa)[phone]\[email or web address] Immunizations: http://www.cdc.gov/vaccines/schedules/winl-ps-palj/child.html Depression The first weeks of caring for [...] when you cough or sneeze or suddenly press shop supervisor something heavy. ?? Your breast milk will [...] same thing at the same time. Most [facility] have these classes. ?? Arrange for someone [...] parents group. Call [place] and go to [facility] meetings if you are . With your [...] .html After : The first 6 weeks: http://www.Nimaya/Tgqp-Daucd-pkq-Recovery resources: http://www.BBEdiesAnchorFreelves.org/health-info/gvlyiif-wrvtmjqgrjtio-mpo-to-a-goo d-start/ HEALTHY CARE: 37 to 41 WEEKS Talk with your human services manager or physician about when to call with signs of labor ?? Regular uterine contractions that are getting closer together and/or stronger ?? If you think your water has broken or is leaking ?? Bleeding from the vagina like a period (bloody vaginal discharge is normal) ?? If you are not feeling your baby move Make plans for transportation and children's tutor as needed for when you are going to the hospital. Your human services manager or physician may offer to check your [...] next steps leading to delivery with your human services manager or physician. If you don't start labor on your own by 41 or 42 weeks, your human services manager or physician may recommendgiving you medicines to ripen your cervix and start labor. Preparing for your baby: Tell your human services manager or physician how you plan to feed [...] smoothly for you and your baby. Your human services manager or physician will want to see you for a checkup 2 to 6 weeks after delivery. If you have questions about any symptoms you are experiencing or any other concerns, call your provider or their clinic staff at [facility] at . If it's after clinic hours, physician patients should call the Care Connection at [phone] ([phone]); human services manager patients should call their answering service at [phone]. How can you care for yourself at home? You can refer to the Starting Out Right book or find it online at http://www.healtheast.org/images/s alma delia/maternity/DiqxnuTely-Xopcjllk-Whd-Right.pdf or http://www.[facility].org/images/stories/seniabo karin/mlmkkogizq-qgbqaacq-rss-right/dtnfwkqbye-kxlrrlbn-apa-right.html#p=8 You can sign up for a weekly parenting e-mail that gives support, tips and advice from health direct care supervisor that starts with and continues through the toddler years. To register, go to www.[facility].org/baby at any time during your . Making Plans for Feeding My Baby By this point, you probably have read a lot about feeding your baby. Breastfeed or formula? Each mother???s decision is her own and [facility] respects you and your choices. We???ve gathered information on both and formula feeding to help with your decision. Talking with your physician or nurse-human services manager can also help in your decision. However you plan to feed your baby, [facility] encourage rooming in with your baby, daxv-fj-ulje contact and feeding your baby based on his or her cues. Sumq-ig-ccvt contact Being close to mom helps your baby adjust to life outside of the womb. It helps your baby regulate their body temperature, heart rate, and breathing. Your baby will usually be placed dnck-tk-oohj immediately following or as soon as possible, [...] Breastfeed when you are with your baby. [place] your bottles of breast milk for when [...] of time. Talk to your doctor or nurse-human services manager about what type of formula to use. Some are iron-fortified, meaning they have extra iron in them. You will want to purchase formula and bottles before your baby is born to be sure you are ready after you return from the hospital. The [facility] donot provide formula samples to take home. Be sure to follow formula mixing directions closely. Regular milk in the dairy case at the grocery store should not be given to babies under 1 year old. Baby formula is sold in several forms including: ??? Numfj-ok-ysz. This is the most expensive, but no mixing is necessary. ??? Concentrated liquid. This is less expensive than rhjrh-qf-smq and you mix with water. ??? Powder. [...] You can also wash them in the road repairer. Care Connection [phone] ([phone]) Share with Women\Andi I in Labor? What [...] are leaking greenish fluid. For More Information: http://onlinelibrary.molina.com/doi/10.1111/jmwh.09484/epdf [place] Department of Health and Human Services: Signs oflabor,labor stages, and types of http://womenshealth.gov//childbirth-beyond/labor-.html#a Childbirth and Parenting Education: [facility] parenting center: http://[facility] general hospitalGemfire/ (309) 469-DFOQ Blooma: (education, yoga & wellness) www.Whisk.MOD Systems Enlightened Mama: www.enlightenedmama.MOD Systems Childbirth collective: (Parent topic nights) www.childbirthcollective.org/ Hypnobabies: www.hypnobabiestwinStepsAway.MOD Systems/ Hypnobirthing: Http://hypnobirthing.com/ The Hour: https://[employer]/inkwbq-asiiozqjwo-wzmig/ APPS and Podcasts: Norma Schmid Nurture The [...] deciding to wean and deciding not to. [employer] Nurse-Midwives (ACNM) http://www.human services manager.org/; look at the informational handouts at http://www.human services manager.org/Tfafd-Sjor-Wxzfi www.mymidwife.org Mother to Baby (Medication and Herbal guidance in ): http://www.mothertobaby.org Toll-Free Hotline: 301.464.4600 LactMed (Medication use while ): http://toxnet.nlm.nih.gov/newtoxnet/lactmed.htm Women's Health.gov: http://www.womenshealth.gov/a-z-topics/index.html Palestinian association - http://americanpregnancy.org Centering (group care option): http://centeringhealthcare.org Information about doulas: Childbirth collective: http://www.childbirthcollective.org/ Doulas of [place] (CARRI): www.carri.org Stagend.com [facility] creping machine operator project: http://ROVOPcitiesdoulaproject.com/ Lunch Counter Manager and Family Education (ECFE): ECFE offers parents hands-on learning experiences that will nourish a lifetime of teachable moments. http://ecfe.info/ecfe-home/ October www.Bakers Shoes FDA - Nutrition www.mypyramid.gov Under For Consumers, [...] offering virtual support groups for : ??? [facility] Cafe Support Group, Tuesdays at 10:30 am Run by LIZ Rubin of [employer] Go to [employer] Facebook page and click on events for link https://www.Nebula.com/events/[email or web address]/ ??? [facility] Milk Hour, at 2:30 pm Run by LIZ Mosley Go to [facility] FB page and send message to get link https://www.Nebula.MOD Systems/Forever His TransportundDNA Dynamics/ ??? [facility]/[place] holding virtual meetings the first Wednesday of each month, 8-9 pm, and the Third Wednesday, 10 - 11 am. Go to [facility] [place] FB page; message to get link https://www.Nebula.com/LLLofGKasia/?hc_location=[facility] ??? [employer] offers a Lounge every Wednesday 12pm - 1pm, run by Harleen Robles Leader Sign up via link at Mobile Bridge/cbe- https://www.Mobile Bridge/cbe- ??? [facility] is offering virtual support groups every Wednesday, 10:30 am - 12 pm, run bynurse HILL Https://www.Nebula.com/events/[email or web address]/ Classes: ??? [employer] is offering virtual and care classes: https://www.Mobile Bridge/education-workshops ??? BirthEd childbirth and education offering virtual classes https://www.The Kernel/workshops documented in this encounter Plan of Treatment Not on filedocumented as of this encounter Visit Diagnoses Diagnosis High-risk , second trimester History of pulmonary embolism Personal history of pulmonary embolism At high risk for venous thromboembolism (VTE) documented in this encounter Additional Health Concerns Assessment Noted Time PHQ-9 Depression Total Score: 7 07/27/2018 7:15 AM DIMENSION WAREHOUSE SUPERVISOR documented as of this encounter Care Teams Underwater Welder Relationship Specialty Start Date End Date Rashida Pederson APRN CNP PCP - General Nurse Practitioner 10/08/14 [address] [place] [address] Rashida Pederson APRN PRINTING ASSISTANT Assigned PCP 10/14/14 07/26/21 [address] [place], [place] [id number] documented as of this encounter
--- OUTSIDE RECORDS SUMMARY | 2022-07-16 10:45 | XMS_ITS | Encounter Summary ---
:1985 Author Organization [place] Address [address] [place] [address] Care Team Providers Name Role Phone Rashida Pederson APRN NIGHT CLUB MANAGER Primary Care Provider [phone] Rashida Pederson APRN NIGHT CLUB MANAGER Unavailable [phone] Encounter Details Date Type Department Care Team Description 02/03/2020 [facility] Vabihav Zaman APRN CNM [facility] [address] [facility] [address] [place] [address] Social History Tobacco Use Types [...] Depression Total Score: 7 07/27/2018 7:15 AM HIM ASSISTANT documented as of this encounter Care Teams Wholesale Parts Salesperson Relationship Specialty Start Date End Date Rashida Pederson APRN NIGHT CLUB MANAGER PCP - General Nurse Practitioner 10/08/14 [address] [place], [place] [id number] Rashida Pederson APRN NIGHT CLUB MANAGER Assigned PCP 10/14/14 07/26/21 [address] [place], [place] [id number] documented as of this encounter
--- OUTSIDE RECORDS SUMMARY | 2022-07-16 10:45 | XMS_ITS | Encounter Summary ---
:1985 Author Organization [place] Address [address] [place] [address] Care Team Providers Name Role Phone Rashida Pederson APRN ORIENTOR Primary Care Provider [phone] Rashida Pederson APRN ORIENTOR Unavailable [phone] Rashida Pederson APRN ORIENTOR Unavailable [phone] Encounter Details Date Type Department Care Team [...] Depression Total Score: 7 07/27/2018 7:15 AM SPECIAL POPULATION PARAPROFESSIONAL documented as of this encounter Care Teams Photogrammetrist Relationship Specialty Start Date End Date Rashida Pederson APRN PCP - General Nurse Practitioner 10/08/14 [facility] [address] [place] [address] Rashida Pederson APRN PCP - Assigned PCP 10/14/14 3 [address] [facility], [place] [phone] Rashida Pederson APRN Assigned PCP 10/14/14 1 09/26/[address] [facility] [place] [address] documented as of this encounter
--- OUTSIDE RECORDS SUMMARY | 2022-07-16 10:45 | XMS_ITS | Encounter Summary ---
:1985 Author Organization [place] Address [address] [place] [address] Care Team Providers Name Role Phone Rashida Pederson APRN, CNP Primary Care Provider [phone] Rashida Pederson APRN RESEARCH PROJECT COORDINATOR Unavailable [phone] BgRashida cornejo APRN RESEARCH PROJECT COORDINATOR Unavailable [phone] Reason for Visit Reason Onset Date Comments Panel Management 01/04/2018 depression Encounter Details Date Type Department Care Team Description 01/04/2018 Telephone [facility] Rashida Pederson [facility] ZIYAD Benitez CNP (depression) [address] [place] [id number] [phone] Social History Tobacco Use Types Packs/Day Years [...] off of Lexapro. She also did not pick up man the Ativan. Pt is exercising more and [...] to do PHQ9. Type of outreach: Sent AngelList message. Questions for provider review: None Yessenia Mcgarry CMA Chart routed to Care Team . documented in this encounter Plan of Treatment Not on filedocumented as of this encounter Visit Diagnoses Not on filedocumented in this encounter Additional Health Concerns Assessment Noted Time PHQ-9 Depression Total Score: 3 02/01/2018 7:12 AM CDT documented as of this encounter Care Teams Tax Associate Attorney Relationship Specialty Start Date End Date Rashida Pederson APRN PCP - General Nurse Practitioner 10/08/14 [facility] [address] [place] [address] Rashida Pederson APRN PCP - Assigned PCP 10/14/14 10/18/18 RESEARCH PROJECT COORDINATOR [address] [place], [place] [phone] Rashida Pederson APRN Assigned PCP 10/14/14 1 09/26/20 RESEARCH PROJECT COORDINATOR [address] [place], [place] [phone] documented as of this encounter
--- OUTSIDE RECORDS SUMMARY | 2022-07-16 10:45 | XMS_ITS | Encounter Summary ---
:1985 Author Organization [place] Address [address] [place] [address] Care Team Providers Name Role Phone Rashida Pederson APRN AX SURVEY WORKER Primary Care Provider [phone] Rashida Pederson APRN AX SURVEY WORKER Unavailable [phone] Encounter Details Date Type Department Care Team [...] 4:16 PM Result s for this HISTORICAL AGRICULTURAL CHEMICALS INSPECTOR procedure are i n the results section. CBC WITH PLATELETS Routine 10/09/2019 2:49 PM Res ults for this AND DIFFERENTIAL AGRICULTURAL CHEMICALS INSPECTOR procedure a re in the results section. RUBELLA ANTIBODY IGG Routine 10/09/2019 2:49 PM R esults for this AGRICULTURAL CHEMICALS INSPECTOR procedure are i n the results section. HIV ANTIGEN ANTIBODY Routine 10/09/2019 2:49 PM R esults for this COMBO AGRICULTURAL CHEMICALS INSPECTOR procedure are i n the results section. TREPONEMA ABS W Routine 10/09/2019 2:49 PM Result s for this REFLEX TO RPR AND AGRICULTURAL CHEMICALS INSPECTOR procedure are in TITER the results section. HEPATITIS B SURFACE Routine 10/09/2019 2:49 PM Re sults for this ANTIGEN AGRICULTURAL CHEMICALS INSPECTOR procedure are i n the results section. HEMOGLOBIN A1C Routine 10/09/2019 2:49 PM Results for this AGRICULTURAL CHEMICALS INSPECTOR procedure are i n the results section. ANTIBODY SCREEN - RED Routine 10/09/2019 2:49 PM Results for this CELL AGRICULTURAL CHEMICALS INSPECTOR procedure are i n the results section. ABO AND RH Routine 10/09/2019 2:49 PM Results f or this AGRICULTURAL CHEMICALS INSPECTOR procedure are i n the results section. documented in this encounter Results Urine Culture - Historical (10/09/2019 4:16 PM AGRICULTURAL CHEMICALS INSPECTOR) athologist Signature Culture No Growth 10/10/2019 [facility] 1:26 PM AGRICULTURAL CHEMICALS INSPECTOR [facility] Specimen Anatomical Collection Method Collection Time Receive d Time (Source) Location / / Volume Laterality Urine specimen Non-blood 10/09/2019 4:16 PM 020 6:47 (specimen) Collection / AGRICULTURAL CHEMICALS INSPECTOR PM AGRICULTURAL CHEMICALS INSPECTOR Unknown Karis BAKER LAB - MICRO GENERAL ORDERABL ES Performing Organization Address City/[facility]/[place] [address] [address] [facility] Hemoglobin A1c (10/09/2019 2:49 PM AGRICULTURAL CHEMICALS INSPECTOR) athologist Signature Hemoglobin A1C 5.4 4.2 - 6.1 10/10/2019 [facility] % 7:54 AM AGRICULTURAL CHEMICALS INSPECTOR [facility] Specimen Anatomical Collection Method / Collection Time Recei merry Time (Source) Location / Volume Laterality Blood specimen Venipuncture / 10/09/2019 2:49 10/09/19 20 4:41 (specimen) Unknown PM AGRICULTURAL CHEMICALS INSPECTOR PM AGRICULTURAL CHEMICALS INSPECTOR Karis Hale CNM LAB - BLOOD ORDERABLES Performing Organization Address City/State/ZIP Code Phon [place] [address] [facility] [address] [facility] Treponema Abs w Reflex to RPR and Titer (10/09/2019 2:49 PM AGRICULTURAL CHEMICALS INSPECTOR) athologist Signature Treponema Negative Negative 10/10/2019 Antibody Total 10:00 AM AGRICULTURAL CHEMICALS INSPECTOR Specimen Anatomical Collection Method / Collection Time Recei merry Time (Source) Location / Volume Laterality Blood specimen Venipuncture / 10/09/2019 2:49 10/09/19 20 4:44 (specimen) Unknown PM AGRICULTURAL CHEMICALS INSPECTOR PM AGRICULTURAL CHEMICALS INSPECTOR Karis Hale CNM LAB - BLOOD ORDERABLES Hepatitis B surface antigen (10/09/2019 2:49 PM AGRICULTURAL CHEMICALS INSPECTOR) athologist Signature Hepatitis B Negative Negative 10/10/2019 Surface 8:33 AM AGRICULTURAL CHEMICALS INSPECTOR Antigen Specimen Anatomical Collection Method / Collection Time Recei merry Time (Source) Location / Volume Laterality Blood specimen STRUCTURE OF LEFT Venipuncture / 10/09/2019 2:49 4:44 (specimen) UPPER LIMB / Unknown PM AGRICULTURAL CHEMICALS INSPECTOR PM AGRICULTURAL CHEMICALS INSPECTOR Unknown Karis Hale CNM LAB - BLOOD ORDERABLES HIV Antigen Antibody Combo (10/09/2019 2:49 PM AGRICULTURAL CHEMICALS INSPECTOR) athologist Signature HIV Antigen Negative Negative 10/09/2019 Antibody Combo 5:37 PM AGRICULTURAL CHEMICALS INSPECTOR Specimen Anatomical Collection Method / Collection Time Recei merry Time (Source) Location / Volume Laterality Blood specimen Venipuncture / 10/09/2019 2:49 10/09/19 20 4:44 (specimen) Unknown PM AGRICULTURAL CHEMICALS INSPECTOR PM AGRICULTURAL CHEMICALS INSPECTOR Narrative 10/09/2019 5:37 PM AGRICULTURAL CHEMICALS INSPECTOR Method is Lynch HIV Ag/Ab for the detec tion of HIV p24 antigen, HIV-1 antibodies and HIV-2 antibodies. Karis Hale CNM LAB - BLOOD ORDERABLES (ABNORMAL) CBC WITH PLATELETS AND DIFFERENTIAL (10/09/2019 2:49 PM AGRICULTURAL CHEMICALS INSPECTOR) athologist Signature WBC 8.6 4.0 - 11.0 10/09/2019 thou/uL 2:56 PM AGRICULTURAL CHEMICALS INSPECTOR RBC Count 4.21 3.80 - 10/09/2019 5.40 2:56 PM AGRICULTURAL CHEMICALS INSPECTOR mill/uL Hemoglobin 12.8 12.0 - 10/09/2019 16.0 g/dL 2:56 PM AGRICULTURAL CHEMICALS INSPECTOR Hematocrit 37.5 35.0 - 10/09/2019 47.0 % 2:56 PM AGRICULTURAL CHEMICALS INSPECTOR MCV 89 80 - 100 10/09/2019 fL 2:56 PM AGRICULTURAL CHEMICALS INSPECTOR MCH 30.4 27.0 - 10/09/2019 34.0 pg 2:56 PM AGRICULTURAL CHEMICALS INSPECTOR MCHC 34.1 32.0 - 10/09/2019 36.0 g/dL 2:56 PM AGRICULTURAL CHEMICALS INSPECTOR RDW 12.0 11.0 - 10/09/2019 14.5 % 2:56 PM AGRICULTURAL CHEMICALS INSPECTOR Platelet Count 245 140 - 440 10/09/2019 thou/uL 2:56 PM AGRICULTURAL CHEMICALS INSPECTOR Mean Platelet 9.6 8.5 - 12.5 10/09/2019 Volume fL 2:56 PM AGRICULTURAL CHEMICALS INSPECTOR % Neutrophils 71 (H) 50 - 70 % 10/09/2019 2:56 PM AGRICULTURAL CHEMICALS INSPECTOR % Lymphocytes 22 20 - 40 % 10/09/2019 2:56 PM AGRICULTURAL CHEMICALS INSPECTOR % Monocytes 6 2 - 10 % 10/09/2019 2:56 PM AGRICULTURAL CHEMICALS INSPECTOR % Eosinophils 1 0 - 6 % 10/09/2019 2:56 PM AGRICULTURAL CHEMICALS INSPECTOR % Basophils 1 0 - 2 % 10/09/2019 2:56 PM AGRICULTURAL CHEMICALS INSPECTOR Absolute 6.1 2.0 - 7.7 10/09/2019 Neutrophils thou/uL 2:56 PM AGRICULTURAL CHEMICALS INSPECTOR Absolute 1.9 0.8 - 4.4 10/09/2019 Lymphocytes thou/uL 2:56 PM AGRICULTURAL CHEMICALS INSPECTOR Absolute 0.5 0.0 - 0.9 10/09/2019 Monocytes thou/uL 2:56 PM AGRICULTURAL CHEMICALS INSPECTOR Eosinophils 0.1 0.0 - 0.4 10/09/2019 Absolute thou/uL 2:56 PM AGRICULTURAL CHEMICALS INSPECTOR Absolute 0.0 0.0 - 0.2 10/09/2019 Basophils thou/uL 2:56 PM AGRICULTURAL CHEMICALS INSPECTOR Specimen Anatomical Collection Method / Collection Time Recei merry Time (Source) Location / Volume Laterality Blood specimen Venipuncture / 10/09/2019 2:49 10/09/19 20 2:51 (specimen) Unknown PM AGRICULTURAL CHEMICALS INSPECTOR PM AGRICULTURAL CHEMICALS INSPECTOR Karis Hale CNM LAB - BLOOD ORDERABLES Rubella Antibody IgG Quantitative (10/09/2019 2:49 PM AGRICULTURAL CHEMICALS INSPECTOR) Analysis Performed At [facility] Signature Rubella Positive 10/10/2019 [facility] Antibody IgG 9:42 AM AGRICULTURAL CHEMICALS INSPECTOR [facility] Specimen Anatomical Collection Method / Collection Time Recei merry Time (Source) Location / Volume Laterality Blood specimen Venipuncture / 10/09/2019 2:49 10/09/19 20 4:44 (specimen) Unknown PM AGRICULTURAL CHEMICALS INSPECTOR PM AGRICULTURAL CHEMICALS INSPECTOR Narrative O LABORATORY - 10/10/2019 9:42 AM AGRICULTURAL CHEMICALS INSPECTOR Negative: Absence of detectable rubella virus IgG antibodies. A negative result presumes that immunity has not been acquired. Equivocal: Suggest recollection. Positive: Considered positive for IgG an tibodies to rubella virus. Karis BAKER LAB - BLOOD ORDERABLES Performing Organization Address City/[facility]/[place] [address] [phone] [facility]-[id number] [place] [id number] [place] [address] Antibody screen red cell (10/09/2019 2:49 PM AGRICULTURAL CHEMICALS INSPECTOR) athologist Signature Antibody Negative 10/09/2019 BLOOD BANK Screen 3:58 PM AGRICULTURAL CHEMICALS INSPECTOR Specimen Anatomical Collection Method / Collection Time Recei merry Time (Source) Location / Volume Laterality Blood specimen Venipuncture / 10/09/2019 2:49 10/09/19 20 2:51 (specimen) Unknown PM AGRICULTURAL CHEMICALS INSPECTOR PM AGRICULTURAL CHEMICALS INSPECTOR Karis BAKER LAB - BLOOD BANK TEST ORDER Performing Organization Address City/[facility]/ZIP [facility] Phon e Number [facility] BLOOD BANK [address] [place] [address] BLOOD BANK [address] [place] [address] ABO and Rh (10/09/2019 2:49 PM AGRICULTURAL CHEMICALS INSPECTOR) athologist Signature ABO/RH(D) B NEG 10/09/2019 3:31 PM AGRICULTURAL CHEMICALS INSPECTOR ABORH REPEAT B NEG 10/09/2019 3:31 PM AGRICULTURAL CHEMICALS INSPECTOR Specimen Anatomical Collection Method / Collection Time Recei merry Time (Source) Location / Volume Laterality Blood specimen Venipuncture / 10/09/2019 2:49 10/09/19 20 2:51 (specimen) Unknown PM AGRICULTURAL CHEMICALS INSPECTOR PM AGRICULTURAL CHEMICALS INSPECTOR Karis Hale CNM LAB - BLOOD BANK TEST ORDER documented in this encounter Visit Diagnoses Diagnosis High-risk supervision, first t rimester BMI 39.0-39.9,adult Body Mass Index 39.0-39.9, adult documented in this encounter Additional Health Concerns Assessment Noted Time PHQ-9 Depression Total Score: 7 07/27/2018 7:15 AM AGRICULTURAL CHEMICALS INSPECTOR documented as of this encounter Care Teams Tunnel Miner Relationship Specialty Start Date End Date Rashida Pederson APRN AX SURVEY WORKER PCP - General Nurse Practitioner 10/08/14 [address] [place] [address] Rashida Pederson APRN AX SURVEY WORKER Assigned PCP 10/14/14 07/26/21 [address] [place] [address] documented as of this encounter
--- OUTSIDE RECORDS SUMMARY | 2022-07-16 10:45 | XMS_ITS | Encounter Summary ---
:1985 Author Organization [place] Address [address] [place] [address] Care Team Providers Name Role Phone Rashida Pederosn APRN LITHOGRAPH PRINTER Primary Care Provider [phone] Rashida Pederson APRN LITHOGRAPH PRINTER Unavailable [phone] Reason for Visit Reason Comments Care Encounter Details Date Type Department Care Team Description 12/19/2019 Office Visit - M [facility] High Alan-ris k , second trimester; [facility] L, CNM BMI 39.0-39.9,adult; [place] [id number] At high risk for venous thro mboembolism (VTE); [address] [facility] Rh negative, antepartum [address] [facility] [address] [place] [phone] [place], [place] (Work) [address] Social History Tobacco Use [...] would you like to be contacted at? 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 - Objective: See [...] Phillips CNM - 12/19/2019 11:40 AM CDT [facility] Nurse Midwives - Contact information: Appointment line and to get a hold of CNM in clinic Wednesday-Wednesday 8 am - 5 pm: . Thereare some clinics with early start times (1st appointment 7:40 am) and others with evening hours (last appointment 6:20 pm). Most are typically open from 8 am to 5 pm. CNM round boner answering service: . Specify your hospital of choice and leave a brief message for CNM; concrete pile driver operator will then page CNM who is round boner at your specified hospital and you should [...] F. You are invited to Meet the [facility] Nurse-Midwives A way to tour the hospital Labor and Delivery unit and meet the midwives that attend births since you may not have the opportunity to meet them during your care. Some sessions are informal meet and greet type social hours, others address a specific concern or topic. Thursday, September 27, 2018 7-8pm [facility] Friday, November 30, 2018 7-8pm [facility] Aud[facility] A March 7-8pm [place] Friday June 28, 2019 7-8 pm [facility], Auditorum A Please call [phone] to register UNDERSTANDING LABOR Going into labor before your 37th week of is called labor. labor can causeyour baby to be born too soon. This can lead to a number of health problems that may affect your baby. From 28-35 weeks, Patients are advised to be evaluated at [facility] since they have a Intensive Care Unit [...] second or third trimester Evaluating Labor Your trampoline team coach will try to find out whether you???re [...] cervix is still thick and closed, the trampoline team coach may ask you to do the following at home: ?? Drink plenty of water. ?? Do fewer activities. ?? Rest in bed on your side. ?? Avoid intercourse and nipple stimulation. When to Call Your Lpn Private Duty ?? Five or more contractions per hour [...] . We follow the recommendations of the [place] Diabetes Association and the [place] College of Obstetricians and Gynecologists to test all women for gestational diabetes. Testing early in (if you have risk factors) and testing all women between 26-28 weeks follows local and national guidelines forcare during . Clients who feel that they cannot consent to such testing, may choose to transfer their care to our quality compliance consultant obstetricians. What is the test? Eat [...] is confirmed and a referral to a scalping machine operator will be made. If the level is [...] will be made to visit with the scalping machine operator. The educator will help you to make [...] years after their . Additional Information The [place] College of Nurse Midwives (ACNM) provides an information sheet describing diabetes screening in : http://www.womenNow In Storeocs.com/mj/pdf/Second_Trimester/Gestational_Diabetes.pdf You can visit the [place] Diabetes Association website http://www.diabetes.org for additional information and to purchase their book, ???Gestational Diabetes: What to Expect?? . A brochure from the [place] College of Obstetrics and Gynecology is available at: http://www.acog.org/~/media/For%20Patients/ydt556.pdf?dmc=1&dq=[id number] 15 Testing for gestational diabetes is a [...] moving around more now. You may notice [place] contractions now, which are painless and prepare [...] iron. Discuss your work situation with your trampoline team coach or physician as needed. If you stand for long periods of time, you may need to make changes and take breaks. [place] for childbirth and parenting classes, including an CPR class. classes are recommended too. Childbirth and Parenting Education: Blueroof 360 parenting center: http://[place]/ (768) 747-ZHJF Blooma: (education, yoga & wellness) www.SysClass.Tri-Medics Enlightened Mama: www.KikoightenedFlatter World.Tri-Medics Childbirth collective: (Parent topic nights) www.childbirthcollective.org/ Hypnobabies: www.hypnobabiestSocialGO.Tri-Medics/ Hypnobirthing: Http://hypnobirthing.com/ Book Recommendations: Susan Milla's Birthing [...] deciding to wean and deciding not to. [place] College of Nurse-Midwives (ACNM) http://www.trampoline team coach.org/; look at the informational handouts at http://www.trampoline team coach.org/Qebig-Ldis-Knbsk www.mymidwife.org Mother to Baby (Medication and Herbal guidance in ): http://www.mothertobaby.org Toll-Free Hotline: 321.763.5957 LactMed (Medication use while ): http://toxnet.nlm.nih.gov/newtoxnet/lactmed.htm Women's Health.gov: http://www.womenshealth.gov/a-z-topics/index.html [place] association - http://americanpregnancy.org Centering (group care option): http://centeringhealthcare.org Information about doulas: Childbirth collective: http://www.childbirthcollective.org/ Doulas of [place] (CARRI): www.carri.org [facility] packaging operator project: http://Amoreliecitiesdoulaproject.com/ Operations/Dispatch and Family Education (ECFE): ECFE offers parents hands-on learning experiences that will nourish a lifetime of teachable moments. http://ecfe.info/ecfe-home/ October www.GlassUp.Tri-Medics FDA - Nutrition www.mypyramid.gov Under For Consumers, [...] book or find it online at http://www.healtheast.org/images/s tories/maternity/YfmttqLxjr-Vhgflpcj-Nof-Right.pdf or http://www.healtheast.org/images/stories/flipbo oks/edtepmdxnc-xrwbswvy-qmz-right/qjbyoqpuhg-qxglpvyq-kgm-right.html#p=8 You can sign up for a weekly parenting e-mail that gives support, tips and advice from health personal care attendant that starts with and continues through the toddler years. To register, go to www.healtheast.org/baby at any time during your . Baby Feeding in the Hospital: Information, Support and Resources As you prepare for the of your child, you will want to consider options for feeding your baby including breast-feeding and/or baby formula. The [place] Academy of Pediatrics recommends exclusivebreast-feeding for the [...] baby? Your baby will usually be placed viwu-bv-hkno immediately following . The skin to skin [...] There are numerous resources available at [facility], Clinics and beyond. ??? If your goal [...] or freezer for later use. Touring the [facility] To schedule a tour at either [place] or [facility], please do so online using the following links: [facility] - https://www.Convio.Tri-Medics/registerlist.asp?s=6&m=303&vs=5&p=2& amp;rxwnr=618&ps=1&group=37&it=1&mol=933 [facility] - https://www.Convio.com/registerlist.asp?s=6&m=303&vs=5&p=2&a mp;kpgko=266&ps=1&group=38&it=1&ntv=733 Hospital and Clinic Resources: -Schedule an appointment with a [facility] CNM who is also a 3Rd Grade Reading Teacher by calling [phone] -Schedule a clinic appointment with a [facility] CNM with dedicated clinic hours for assistance by calling [phone]. clinic visits are at [facility] on Mondays, [facility] on Tuesdays and [facility] on . Baby Caf?? and interested in [...] closest to you! [facility] [address] [place] [address] Wednesday: 10am-12pm [facility] [address] [place] [address] Wednesday 4-6pm [facility] [address] [place] [address] Wednesday 10am-12:30pm ong [facility] [address] [place] [address] Wednesdays: 4-6pm Hmong, Papua New Guinean, and Swiss which is may be available at some sites. For more information, please contact: Beatris [email or web address]. or [phone] -Attend a baby weigh in at [facility]. consultants are available to answer questions Katja: Tuesdays 1:00 - 2:00 [facility]: Mondays 1:00 - 2:00 www.brighton hospitalSpectafy.Tri-Medics -Attend one of the New Mama groups at [facility] in [facility]. [facility] also offers one-on-one in home and in office consults. www.[facility] -Attend a LeLeche League meeting. Multiple groups in several locations throughout the [facility]. The meetings are no-cost and always informative education session through Internatal Belem Oconnor Www.lllofmndas.org/ Medication use while : http://toxnet.nlm.nih.gov/newtoxnet/lactmed.htm Online Resources: ??? healtheast.org/baby sign up for free online weekly e-mail ??? healtheast.org/maternity ??? Breastfeedingmadesimple.com ??? Llli.org (Belem Oconnor) ??? Normalfed.com ??? Womenshealth.gov/ ??? WoofoundpNeedium.Tri-Medics Breast-feeding Supplies & Pumps: Talk to your insurance provider or WIC (Women, Infants and Children) to learn more about options available to you. Recent health insurance changes may include additional coverage for supplies and pumps. Public Health: Women, Infants and Children Nutrition program (WIC): provides breast-feeding support and education in addition to formal feeding moms. 043-NWF-9998 or http://www.health.[facility].us/divs/fh/wic Family Health Home Visiting: [facility] Nurse home visits are available. Talk to your provider tosee if you qualify. Most [facility] hospital have a program available. Additional Resources: Belem Oconnor is an international, nonprofit, nonsectarian organization offering information, education, and support to mothers who want to breast-feed their babies. Local groups offer phone help andmonthly meetings. Visit OneTag.Spreadknowledge or TiGenix.Spreadknowledge and us the ???Find local support?? drop down menu or click on the ???Resources?? tab. [place] Resources: 4-674-476-BABY ([phone]) toll free National Help Line trained peer counselors can help answer common breast-feeding questions by phone. Wednesday-Wednesday: Persian/Papua New Guinean [phone] toll free, (TTY) [facility] Connection: 795-609-HHID ([phone]) Virtual Support: During this time of isolation, families need even more community! Here are some area organizations offering virtual support groups for : ??? [facility] Support Group, Tuesdays at 10:30 am Run by LIZ Rubin of [employer] Go to [employer] Facebook page and click on events for link https://www.facebook.com/events/691763237808821/ ??? [facility] Milk Hour, at 2:30 pm Run by LIZ Mosley Go to [facility] FB page and send message to get link https://www.Sustaining Technologies.com/healthfoundations/ ??? [facility]/Airport holding virtual meetings the first Wednesday of each month, 8-9 pm, and the Third Wednesday, 10 - 11 am. Go to [facility] FB page; message to get link https://www.Sustaining Technologies.Tri-Medics/LLLofGKasia/?hc_location=[facility] ??? Needium offers a Lounge every Wednesday 12pm - 1pm, run by Yessenia Fernandes [facility] Leader Sign up via link at LIFEmee/cbe- https://www.LIFEmee/cbe- ??? [facility] is offering virtual support groups every Wednesday, 10:30 am - 12 pm, run bynurse HILL Https://www.Sustaining Technologies.Tri-Medics/events/354129628012169/ Classes: ??? Need[facility] is offering virtual and care classes: https://wwwAmorelie/education-workshops ??? BirthEd childbirth and education offering virtual classes https://www.Madison VaccinesmnWiseNetworks/workshops documented in this encounter Plan of Treatment [...] Depression Total Score: 7 07/27/2018 7:15 AM ACCREDITED LEGAL SECRETARY documented as of this encounter Care Teams Data Architect Relationship Specialty Start Date End Date Rashida Pederson APRN LITHOGRAPH PRINTER PCP - General Nurse Practitioner 10/08/14 [address] [place], [place] [id number] Rashida Pederson APRN LITHOGRAPH PRINTER Assigned PCP 10/14/14 07/26/21 [address] [place], [place] [id number] documented as of this encounter
--- OUTSIDE RECORDS SUMMARY | 2022-07-16 10:45 | XMS_ITS | Encounter Summary ---
:1985 Author Organization [place] Address [address] [place] [address] Care Team Providers Name Role Phone Rashida Pederson APRN FOCUSED FACTORY MANAGER Primary Care Provider [phone] Rashida Pederson APRN FOCUSED FACTORY MANAGER Unavailable [phone] Encounter Details Date Type Department Care Team Description 09/07/2019 Communication - [facility] Karis Hale, [facility] 18[address] [facility] [address] [facility] [address] [place] [address] Social History Tobacco Use Types [...] Score: 7 07/27/2018 7:15 AM MEDICAL BILLING SUPERVISOR documented as of this encounter Care Teams Tool Design Drafter Relationship Specialty Start Date End Date Rashida Pederson APRN FOCUSED FACTORY MANAGER PCP - General Nurse Practitioner 10/08/14 [address] [place], [place] [phone] Rashida Pederson APRN FOCUSED FACTORY MANAGER Assigned PCP 10/14/14 07/26/21 [address] [place], [place] [id number] documented as of this encounter
--- OUTSIDE RECORDS SUMMARY | 2022-07-16 10:45 | XMS_ITS | Encounter Summary ---
:1985 Author Organization [place] Address [address] [place] [address] Care Team Providers Name Role Phone Rashida Pederson APRN HEAVY LINE TECHNICIAN Primary Care Provider [phone] Rashida Pederson APRN HEAVY LINE TECHNICIAN Unavailable [phone] Encounter Details Date Type Department Care Team Description 01/30/2020 Communication - [facility] Mihaela Burns, Rain [address] [place] [address] [place] [address] Drive [address] [place] [address] Social History Tobacco Use Types [...] Total Score: 7 07/27/2018 7:15 AM CARD ROOM MANAGER documented as of this encounter Care Teams Yarn Man Relationship Specialty Start Date End Date Rashida Pederson APRN HEAVY LINE TECHNICIAN PCP - General Nurse Practitioner 10/08/14 [address] [place], [place] [phone] Rashida Pederson APRN HEAVY LINE TECHNICIAN Assigned PCP 10/14/14 07/26/21 [address] [place], [place] [id number] documented as of this encounter
--- OUTSIDE RECORDS SUMMARY | 2022-07-16 10:45 | XMS_ITS | Encounter Summary ---
:1985 Author Organization [place] Address [address] [place] [address] Care Team Providers Name Role Phone Rashida Pederson APRN SANITARY AIDE Primary Care Provider [phone] Rashida Pederson APRN SANITARY AIDE Unavailable [phone] BgRashida cornejo APRN SANITARY AIDE Unavailable [phone] Reason for Visit Reason Comments Back Pain Encounter Details Date Type Department Care Team Description 10/14/2017 Office Visit [facility] Donavon Szymanski Acute le ft-sided low Clinic [facility] PA-C back pain without [address] [address] [facility] sciatica (Primary Dx) [place] [address] [phone] Social History Tobacco Use Types Packs/Day Years [...] Comments Blood Pressure 113/74 10/14/2017 11:46 AM OPERATIONS VICE PRESIDENT Pulse 118 10/14/2017 11:46 AM OPERATIONS VICE PRESIDENT Temperature 37.1 ??C (98.8 ??F) 10/14/2017 11:46 AM OPERATIONS VICE PRESIDENT Respiratory Rate 16 10/14/2017 11:46 AM OPERATIONS VICE PRESIDENT Oxygen Saturation - - Inhaled Oxygen Concentration - - Weight 110.2 kg (243 lb) 10/14/2017 11:46 AM OPERATIONS VICE PRESIDENT Height - - Body Mass Index 39.22 09/10/2017 1:10 PM OPERATIONS VICE PRESIDENT documented in this encounter Patient Instructions Patient InstructionsDonavon Szymanski PA-C - 10/14/2017 12:09 PM OPERATIONS VICE PRESIDENT Images from the original note were not [...] groin area Date Last Reviewed: 01/15/2016 ?? [id number] [employer]. [address] [place] [address]. All rights reserved. This information is not [...] slowly lower. Date Last Reviewed: 01/15/2016 ?? [phone] [employer]. [address] [place] [address], [place] [address]. All rights reserved. This information is not intended as a substitute for professional medical care. Always follow your healthcare professional's instructions. ATIONS VICE PRESIDENT documented in this encounter Progress Notes Donavon [...] Follow up: as above Donavon Szymanski PA-C [facility] ATIONS VICE PRESIDENT documented in this encounter Plan of Treatment Not on filedocumented as of this encounter Visit Diagnoses Diagnosis Acute left-sided low back pain without s ciatica - Primary documented in this encounter Additional Health Concerns Assessment Noted Time PHQ-9 Depression Total Score: 11 09/11/2017 7:41 AM CS T documented as of this encounter Care Teams Noc Engineer Relationship Specialty Start Date End Date Rashida Pederson APRN PCP - General Nurse Practitioner 10/08/14 SANITARY AIDE [address] [place] [address] Rashida Pederson APRN PCP - Assigned PCP 10/14/14 10/18/18 SANITARY AIDE [address] [place] [address] Rashida Pederson APRN Assigned PCP 10/14/14 1 09/26/20 SANITARY AIDE [address] [place] [address] documented as of this encounter
--- OUTSIDE RECORDS SUMMARY | 2022-07-16 10:45 | XMS_ITS | Encounter Summary ---
:1985 Author Organization [place] Address [address] [place] [address] Care Team Providers Name Role Phone Rashida Pederson APRN ECONOMICS ANALYST Primary Care Provider [phone] Rashida Pederson APRN ECONOMICS ANALYST Unavailable [phone] Encounter Details Date Type Department Care Team Description 10/05/2019 Hospital Encounter [facility] ZiKaris morelos , [facility] examination or [facility] [address] test, positive [address] [place], [place] [phone] Social History Tobacco Use Types Packs/Day Years [...] 3:10 PM Resul ts for this SINGLE-TRANSABDOMIN OBSTETRICS GYNECOLOGY MD examination or test, procedure are in [place] positive result the results section. documented in this encounter Results US OB < 14 Weeks Single (10/05/2019 3:10 PM OBSTETRICS GYNECOLOGY MD) Anatomical Region Laterality Modality Abdomen/Pelvis Other Specimen (Source) Anatomical Location Collection Method / Collectio n Time Received Time / Laterality Volume Impressions 10/05/2019 3:15 PM OBSTETRICS GYNECOLOGY MD 1. ??Single living intrauterine gestatio n at 12 weeks and 5 days, EDC 04/13/2020. Narrative 10/05/2019 3:15 PM OBSTETRICS GYNECOLOGY MD EXAM: OB < 14 WEEKS LOCATION: [facility] DATE/TIME: 10/05/2019 3:10 PM INDICATION: early dating [...] original. EXAM: OB < 14 WEEKS LOCATION: [facility] DATE/TIME: 10/05/2019 3:10 PM INDICATION: early dating [...] 5 days, EDC 04/13/2020. Karis Hale CNM [facility] ORDERABLES documented in this encounter Visit Diagnoses Diagnosis examination or test, positive result documented in this encounter Additional Health Concerns Assessment Noted Time PHQ-9 Depression Total Score: 7 07/27/2018 7:15 AM OBSTETRICS GYNECOLOGY MD documented as of this encounter Care Teams Oracle Financial Application Developer Relationship Specialty Start Date End Date Rashida Pederson APRN ECONOMICS ANALYST PCP - General Nurse Practitioner 10/08/14 [address] [place] [address] Rashida Pederson APRN ECONOMICS ANALYST Assigned PCP 10/14/14 07/26/21 [address] [place] [address] documented as of this encounter
--- OUTSIDE RECORDS SUMMARY | 2022-07-16 10:45 | XMS_ITS | Encounter Summary ---
:1985 Author Organization [place] Address [address] [place] [address] Care Team Providers Name Role Phone Rashida Pederson APRN, CNP Primary Care Provider [phone] Rashida Pederson APRN, CNP Unavailable [phone] Encounter Details Date Type Department Care Team Description 12/14/2019 [facility] Provider, [facility] Midwifery Historical Patient Access [address] [place] [address] Social History Tobacco Use Types Packs/Day Years [...] Depression Total Score: 7 07/27/2018 7:15 AM PARIMUTUEL CLERK documented as of this encounter Care Teams Waste Duster Relationship Specialty Start Date End Date Rashida Pederson APRN CNP PCP - General Nurse Practitioner 10/08/14 [address] [place], [place] [id number] Rashida Pederson, ZIYAD FINANCIAL RECORDING CLERK Assigned PCP 10/14/14 07/26/21 [address] [place] [address] documented as of this encounter
--- OUTSIDE RECORDS SUMMARY | 2022-07-16 10:45 | XMS_ITS | Encounter Summary ---
:1985 Author Organization [place] Address [address] [place] [address] Care Team Providers Name Role Phone Rashida Pederson APRN MANAGER DISTRIBUTION CENTER Primary Care Provider [phone] Rashida Pederson APRN MANAGER DISTRIBUTION CENTER Unavailable [phone] Encounter Details Date Type Department Care Team Description 01/04/2020 Communication - [facility] Junie Saavedra, [facility] [address] [employer] [address] [place] [address] [place] [address] Social History Tobacco Use Types [...] Depression Total Score: 7 07/27/2018 7:15 AM WHARFINGER CHIEF documented as of this encounter Care Teams Web Master Relationship Specialty Start Date End Date Rashida Pederson APRN MANAGER DISTRIBUTION CENTER PCP - General Nurse Practitioner 10/08/14 [address] [place], [place] [phone] Rashida Pederson APRN MANAGER DISTRIBUTION CENTER Assigned PCP 10/14/14 07/26/21 [address] [place], [place] [id number] documented as of this encounter
--- OUTSIDE RECORDS SUMMARY | 2022-07-16 10:45 | XMS_ITS | Encounter Summary ---
:1985 Author Organization [place] Address [address] [place] [address] Care Team Providers Name Role Phone Rashida Pederson APRN DYE HOUSE WHEEL OPERATOR Primary Care Provider [phone] Rashida Pederson APRN DYE HOUSE WHEEL OPERATOR Unavailable [phone] Reason for Visit Reason Comments Care 17w5d Encounter Details Date Type Department Care Team Description 11/14/2019 Office [facility] Paty Lewis gh-risk Visit - [facility] , second [facility] [address] trimester [address] [place], [place] [address] [address] [facility] [phone] [place] (Work) [place], [place] [phone] [address] (Fax) [phone] Social History Tobacco Use Types Packs/Day Years [...] Lewis CNM - 11/14/2019 2:00 PM CDT [facility] Nurse Midwives - Contact information: Appointment line and to get a hold of CNM in clinic Wednesday-Wednesday 8 am - 5 pm: . Thereare some clinics with early start times (1st appointment 7:40 am) and others with evening hours (last appointment 6:20 pm). Most are typically open from 8 am to 5 pm. CNM location worker answering service: . Specify your hospital of choice and leave a brief message for CNM; viner operator will then page CNM who is location worker at your specified hospital and you should [...] F. You are invited to Meet the [facility] Nurse-Midwives A way to tour the hospital Labor and Delivery unit and meet the midwives that attend births since you may not have the opportunity to meet them during your care. Some sessions are informal meet and greet type social hours, others address a specific concern or topic. Thursday, September 27, 2018 7-8pm [facility] Friday, November 30, 2018 7-8pm [facility] Auditorium A March 7-8pm [place] Friday June 28, 2019 7-8 pm [facility] A Please call [phone] to register UNDERSTANDING LABOR Going into labor before your 37th week of is called labor. labor can causeyour baby to be born too soon. This can lead to a number of health problems that may affect your baby. From 28-35 weeks, Patients are advised to be evaluated at [facility] [place] since they have a Intensive Care Unit [...] second or third trimester Evaluating Labor Your drilling contractor will try to find out whether you???re [...] cervix is still thick and closed, the drilling contractor may ask you to do the following at home: ?? Drink plenty of water. ?? Do fewer activities. ?? Rest in bed on your side. ?? Avoid intercourse and nipple stimulation. When to Call Your Client Server Programmer ?? Five or more contractions per hour [...] too early. Testing for Gestational Diabetes in [facility] Nurse-Midwives are committed to providing safe care during your . We follow the recommendations of the [place] Diabetes Association and the [place] College of Obstetricians and Gynecologists to test all women for gestational diabetes. Testing early in (if you have risk factors) and testing all women between 26-28 weeks follows local and national guidelines forcare during . Clients who feel that they cannot consent to such testing, may choose to transfer their care to our regulatory services consultant obstetricians. What is the test? Eat [...] is confirmed and a referral to a community educator will be made. If the level [...] will be made to visit with the community educator. The educator will help you to [...] years after their . Additional Information The [place] College of Nurse Midwives (ACNM) provides an information sheet describing diabetes screening in : http://www.womensdocs.com/mj/pdf/Second_Trimester/Gestational_Diabetes.pdf You can visit the [place] Diabetes Association website http://www.diabetes.org for additional information and to purchase their book, ???Gestational Diabetes: What to Expect?? . A brochure from the [place] College of Obstetrics and Gynecology is available at: http://www.acog.org/~/media/For%20Patients/fvj862.pdf?dmc=1&hq=[id number] 15 Testing for gestational diabetes is a [...] moving around more now. You may notice [place] contractions now, which are painless and prepare [...] iron. Discuss your work situation with your drilling contractor or physician as needed. If you stand for long periods of time, you may need to make changes and take breaks. [place] for childbirth and parenting classes, including an CPR class. classes are recommended too. Childbirth and Parenting Education: [place] parenting center: http://Wasatch Microfluidicslakewood regional medical centerxTurion/ (961) 974-BABY [place]: (education, yoga & wellness) www.Nitrous.IO Enlightened Mama: www.[employer].Rpptrip.com Childbirth collective: (Parent topic nights) www.childbirthcollective.org/ Hypnobabies: [...] deciding to wean and deciding not to. [place] College of Nurse-Midwives (ACNM) http://www.drilling contractor.org/; look at the informational handouts at http://www.drilling contractor.org/Glqpp-Eybm-Rwpae www.mymidwife.org Mother to Baby (Medication and Herbal guidance in ): http://www.mothertobaby.org Toll-Free Hotline: 591.581.9737 LactMed (Medication use while ): http://toxnet.nlm.nih.gov/newtoxnet/lactmed.htm Women's Health.gov: http://www.womenshealth.gov/a-z-topics/index.html [place] association - http://americanpregnancy.org Centering (group care option): http://centeringhealthcare.org Information about doulas: Childbirth collective: http://www.childbirthcollective.org/ Doulas of [place] (CARRI): www.carri.org [facility] pineapple plantation manager project: http://Plastic Junglecitiesdoulaproject.com/ Front End Web Developer and Family Education (ECFE): ECFE offers parents hands-on learning experiences that will nourish a lifetime of teachable moments. http://ecfe.info/ecfe-home/ October Dimes www.YellowHammer.com FDA - Nutrition www.mypyramid.gov Under For Consumers, [...] book or find it online at http://www.healtheast.org/images/s tories/maternity/NhzcsqBerv-Hmexsvqe-Rvf-Right.pdf or http://www.healthIdeal Network.org/images/stories/flipbo oks/cognpqkrwx-xbpacgca-jad-right/cwajxxugeo-unhuwfbc-ibi-right.html#p=8 You can sign up for a weekly parenting e-mail that gives support, tips and advice from health long term care administrator that starts with and continues through the toddler years. To register, go to www.healthIdeal Network.org/baby at any time during your . Baby Feeding in the Hospital: Information, Support and Resources As you prepare for the of your child, you will want to consider options for feeding your baby including breast-feeding and/or baby formula. The [place] Academy of Pediatrics recommends exclusivebreast-feeding for the [...] baby? Your baby will usually be placed cooo-mc-wveq immediately following . The skin to skin [...] are numerous resources available at [facility], Clinics and beyond. ??? If your [...] or freezer for later use. Touring the [facility] Care Center To schedule a tour at either [place] or [facility], please do so online using the following links: [facility] - https://www.IQumulus.com/registerlist.asp?s=6&m=303&vs=5&p=2& amp;eodbw=736&ps=1&group=37&it=1&eqi=890 [facility] - https://www.IQumulus.Rpptrip.com/registerlist.asp?s=6&m=303&vs=5&p=2&a mp;knmlk=754&ps=1&group=38&it=1&bvq=968 Hospital and Clinic Resources: -Schedule an appointment with a [facility] CNM who is also a Assessment Clinician by calling [phone] -Schedule a clinic appointment with a [facility] CNM with dedicated clinic hours for assistance by calling [phone]. clinic visits are at [facility] on Mondays, [facility] on Tuesdays and [facility] on . Baby Caf?? and interested [...] for the Baby Caf?? closest to you! [facility] [address] [place] [address] Wednesday: 10am-12pm [facility] [address] [place] [address] Wednesday 4-6pm [facility] [address] [place] [address] Wednesday 10am-12:30pm ong [employer] [place] [address] [place] [address] Wednesdays: 4-6pm Hmong, Cay[place] Islander, and Bahraini which is may be available at some sites. For more information, please contact: [email or web address]. or [phone] -Attend a baby weigh in at [facility]. consultants are available to answer questions [place]: Tuesdays 1:00 - 2:00 [facility]: Mondays 1:00 - 2:00 www.[facility] medical centerRapid RMS.Rpptrip.com -Attend one of the New Mama groups at [facility] in [facility]. [facility] also offers one-on-one in home and in office consults. www.Cookapphca [facility].Rpptrip.com -Attend a Lukas League meeting. Multiple groups in several locations throughout the [facility]. The meetings are no-cost and always informative [...] education in addition to formal feeding moms. 544-EEF-2839 or http://www.health.[facility].us/divs/fh/wic Family Health Home Visiting: [facility] Nurse home visits are available. Talk to your provider tosee if you qualify. Most flower hospital have a program available. Additional Resources: Belem Oconnor is an international, nonprofit, nonsectarian organization offering information, education, and support to mothers who want to breast-feed their babies. Local groups offer phone help andmonthly meetings. Visit Digital Reasoning.Family-Mingle or Rebiotix.org and us the ???Find local support?? drop down menu or click on the ???Resources?? tab. [place] Resources: 3-531-628-BABY (3464) toll free National Help Line trained peer counselors can help answer common breast-feeding questions by phone. Wednesday-Wednesday: Swazi/Cayman Islander 3-225- [phone] toll free, (TTY) [facility] Connection: 398-068-YZWJ (1026) documented in this encounter Plan of Treatment Not on filedocumented as of this encounter Visit Diagnoses Diagnosis High-risk , second trimester documented in this encounter Additional Health Concerns Assessment Noted Time PHQ-9 Depression Total Score: 7 07/27/2018 7:15 AM ROPE MAKER documented as of this encounter Care Teams Fur Cleaner Relationship Specialty Start Date End Date Rashida Pederson APRN DYE HOUSE WHEEL OPERATOR PCP - General Nurse Practitioner 10/08/14 [address] [place] [address] Rashida Pederson APRN DYE HOUSE WHEEL OPERATOR Assigned PCP 10/14/14 07/26/21 [address] [place] [address] documented as of this encounter
--- OUTSIDE RECORDS SUMMARY | 2022-07-16 10:45 | XMS_ITS | Encounter Summary ---
:1985 Author Organization [place] Address [address] [place] [address] Care Team Providers Name Role Phone Rashida Pederson APRN WAREHOUSE CONSULTANT Primary Care Provider [phone] Rashida Pederson APRN WAREHOUSE CONSULTANT Unavailable [phone] Reason for Visit Reason Comments Care Encounter Details Date Type Department Care Team Description 01/25/2020 Office [facility] Temitope Fitzgerald High- risk , second trimester; Visit - [facility] ZIYAD Cooley Rh negative state in antepartum period; [facility] [address] Vaginal odor; [address] [facility] [address] BMI 39.0-39.9,adult; Drive [address] At high risk for venous thromboembolism (VTE) [facility] [address] [place], [place] [phone] [address] (Work) [phone] Social History Tobacco Use Types Packs/Day Years [...] is going well for her. Working on [employer]. Reports that they recently laid off their Video Player Mechanic, and she is sad about that, but she didfind a YouAudanikaube channel that gives education from a telephone interviewer, and her sister is a laborand delivery nurse at [facility]. They plan to have her come [...] risk areas. She is not able to germination worker. Reviewed COVID19 hospital policies including limit [...] Fitzgerald CNM - 01/25/2020 1:00 PM CDT [facility] Nurse Midwives - Contact information: Appointment line and to get a hold of CNM in clinic Wednesday-Wednesday 8 am - 5 pm: . Thereare some clinics with early start times (1st appointment 7:40 am) and others with evening hours (last appointment 6:20 pm). Most are typically open from 8 am to 5 pm. CNM industrial relations manager answering service: . Specify your hospital of choice and leave a brief message for CNM; air traffic control operator will then page CNM who is industrial relations manager at your specified hospital and you [...] F. You are invited to Meet the [facility] Nurse-Midwives A way to tour the hospital Labor and Delivery unit and meet the midwives that attend births since you may not have the opportunity to meet them during your care. Some sessions are informal meet and greet type social hours, others address a specific concern or topic. Thursday, September 27, 2018 7-8pm [facility] Friday, November 30, 2018 7-8pm [facility], Auditorium A March 7-8pm [facility] Friday June 28, 2019 7-8 pm [facility], Auditorum A Please call [phone] to register Touring the Maternity Care Center To schedule a tour at either [place] or [facility], please do so online using the following links: [facility] - https://www.Phase Vision/registerlist.asp?s=6&m=303&vs=5&p=2& amp;oysuj=734&ps=1&group=37&it=1&zle=233 [facility] - https://www.Phase Vision/registerlist.asp?s=6&m=303&vs=5&p=2&a mp;lpvtb=602&ps=1&group=38&it=1&kiw=968 DAILY MOVEMENT COUNTING One of the best ways to keep track of a healthy baby is to notice its movements. Healthy babies are very active. However, some perfectly normal babies may sleep quietly as long as 60 minutes without moving. Babies who are having problems are sluggish and move less. Counting these movements can provideyour nurse-acoustical material worker with a warning of developing problems. You [...] your baby so you can tell your nurse-acoustical material worker when something different is happening. CALL THE NURSE-BRIM BLOCKER IF: ?? You do not feel 10 [...] have any questions or concerns, ask your acoustical material worker. ?? You???ll gain more weight from fluids, [...] Patients are advised to be evaluated at [facility] since they have a Intensive Care Unit [...] second or third trimester Evaluating Labor Your acoustical material worker will try to find out whether you???re [...] cervix is still thick and closed, the acoustical material worker may ask you to do the following at home: ?? Drink plenty of water. ?? Do fewer activities. ?? Rest in bed on your side. ?? Avoid intercourse and nipple stimulation. When to Call Your Battery Mechanic ?? Five or more contractions per hour [...] Syphilis Screening: The [place] Department of Health ([facility]) provided new recommendations for screening during . If you are , [facility] recommends testing three times during your : [...] length. Discuss your work situation with your acoustical material worker or physician as needed. If you stand for long periods of time, you may need to make changes and take breaks. Pre-register after 30 weeks online at the hospital where your baby will be born https://sslforms.miami.org/preregistration/he.asp Be aware of your baby's activity level. You may be asked to do daily movement counts. Contact your acoustical material worker or physician about any decreased movement. You [...] baby including breast-feeding and/or baby formula. The [place] Academy of Pediatrics recommends exclusivebreast-feeding for the [...] baby? Your baby will usually be placed tmsi-ya-crli immediately following . The skin to skin [...] normal. There are numerous resources available at [facility] Hospitals, Clinics and beyond. ??? If your [...] Clinic Resources: -Schedule an appointment with a [facility] SAMUELM who is also a Computer Networker by calling [phone] -Schedule a clinic appointment with a [facility] SAMUELM with dedicated clinic hours for assistance by calling [phone]. clinic visits are at [facility] on Mondays, [facility] on Tuesdays and [facility] on . -Baby Caf?? and interested in [...] for the Baby Caf?? closest to you! [facility] [address] [place] [address] Wednesday: 10am-12pm [facility] [address] [place] [address] Wednesday 4-6pm [address] [address] Wednesday 10am-12:30pm [employer] [facility] [address] [place] [address] Wednesdays: 4-6pm Hmong, Swazi, and Mosotho which is may be available at some sites. For more information, please contact: [email or web address]. or [phone] -Attend a baby weigh in at [facility]. consultants are available to answer questions Katja: Tuesdays 1:00 - 2:00 [facility]: Mondays 1:00 - 2:00 www.Lending Works.Wattio -Attend one of the [facility] groups at [facility] in [facility]. [facility] also offers one-on-one in home and in office consults. www.Vinculum Solutionsneurodiagnostic institute.Wattio -Attend a Lukas Oconnor meeting. Multiple groups in several locations throughout the [facility]. The meetings are no-cost and always informative education session through Internatal Belem Oconnor Www.angelalondas.org/ Medication use while : http://toxnet.nlm.nih.gov/newtoxnet/lactmed.htm Online Resources: ??? healtheast.org/baby sign up for free online weekly e-mail ??? healtheast.org/maternity ??? Breastfeedingmadesimple.com ??? Ezeecube.Navio Health (Belem Oconnor) ??? Normalfed.Wattio ??? Womenshealth.gov/ ??? eco4cloud.Wattio Breast-feeding Supplies & Pumps: Talk to your insurance provider or WIC (Women, Infants and Children) to learn more about options available to you. Recent health insurance changes may include additional coverage for supplies and pumps. Public Health: Women, Infants and Children Nutrition program (WIC): provides breast-feeding support and education in addition to formal feeding moms. 516-LZZ-0008 or http://www.health.[facility].wv.us/divs/fh/wic Family Health Home Visiting: Public Health Nurse home visits are available. Talk to your provider tosee if you qualify. Most [facility] have a program available. Additional Resources: Belem Oconnor is an international, nonprofit, nonsectarian organization offering information, education, and support to mothers who want to breast-feed their babies. Local groups offer phone help andmonthly meetings. Visit Room 21 Media.Navio Health or Paperfold.Navio Health and us the ???Find local support?? drop down menu or click on the ???Resources?? tab. [place] Resources: 1-726-277-BABY (6349) toll free National Help Line trained peer counselors can help answer common breast-feeding questions by phone. Wednesday-Wednesday: Montserratian/Swazi [phone] toll free, (TTY) [facility] Connection: 208-934-WEEO (3355) Resources: Childbirth and Parenting Education: [facility]: http://sparrow ionia hospitalSckipio Technologies/ (294) 156-OLUA Blooma: (education, yoga & wellness) www.Everstring Enlightened Mama: www.Tut SystemsenedQuickoffice.Wattio Childbirth collective: (Parent topic nights) www.childbirthcollective.org/ Hypnobabies: www.hypnobabiestwincities.Wattio/ Hypnobirthing: Http://hypnobirthing.com/ Book Recommendations: Susan Milla's Birthing [...] deciding to wean and deciding not to. [place] College of Nurse-Midwives (ACNM) http://www.acoustical material worker.org/; look at the informational handouts at http://www.acoustical material worker.org/Inedc-Fboe-Xrehy www.mymidwife.org Mother to Baby (Medication and Herbal guidance in ): http://www.mothertobaby.org Toll-Free Hotline: 357.218.2006 LactMed (Medication use while ): http://toxnet.nlm.nih.gov/newtoxnet/lactmed.htm Women's Health.gov: http://www.womenshealth.gov/a-z-topics/index.html Nigerien association - http://americanpregnancy.org Centering (group care option): http://centeringhealthcare.org Information about doulas: Childbirth collective: http://www.childbirthcollective.org/ Doulas of [place] (CARRI): www.carri.org [facility] telephone interviewer project: http://twincitiesdoulaproject.com/ Baggageman and Family Education (ECFE): ECFE offers parents hands-on learning experiences that will nourish a lifetime of teachable moments. http://ecfe.info/ecfe-home/ October www.fotobabble.Wattio FDA - Nutrition www.mypyramid.gov Under For Consumers, click on and women. Centers for Disease Control and Prevention (CDC) - Vaccines : http://www.cdc.gov/vaccines/ When researching information on the web, question the validity of websites. The Scan•Jour .gov, .UserMojo and.org tend to be more reliable information. If there are a lot of advertisements, be cautious of theinformation provided. Stay away from blogs and chat rooms please! Virtual Support: During this time of isolation, families need even more community! Here are some area organizations offering virtual support groups for : ??? [facility] Cafe Support Group, Tuesdays at 10:30 am Run by LIZ Rubin of [employer] Baby [employer]ispe[employer] Go to The Baby Whisperer [employer]ants Facebook page and click on events for link https://www.Loccie.com/events/[email or web address]/ ??? [facility] Milk Hour, at 2:30 pm Run by LIZ Mosley Go to [facility] FB page and send message to get link https://www.Loccie.com/healthfoundations/ ??? [facility] holding virtual meetings the first Wednesday of each month, 8-9 pm, and the Third Wednesday, 10 - 11 am. Go to [facility] and [place] FB page; message to get link https://www.Loccie.com/LLLofGoldenValley/?hc_location=[facility] ??? [employer] offers a Lounge every Wednesday 12pm - 1pm, run by Harleen Robles Leader Sign up via link at Everstring/cbe- https://www.Everstring/cbe- ??? [facility] is offering virtual support groups every Wednesday, 10:30 am - 12 pm, run bynurse HILL Https://www.Loccie.com/events/[email or web address]/ Classes: ??? [employer] is offering virtual and care classes: https://wwwLUMO Bodytech/education-workshops ??? 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
--- OUTSIDE RECORDS SUMMARY | 2022-07-16 10:45 | XMS_ITS | Encounter Summary ---
:1985 Author Organization [place] Address [address] [place] [address] Care Team Providers Name Role Phone Rashida Pederson APRN MAPPING EDITOR Primary Care Provider [phone] Rashida Pederson APRN MAPPING EDITOR Unavailable [phone] Encounter Details Date Type Department Care Team Description 02/08/2020 [facility] [address] [place] [address] Social History Tobacco Use Types [...] Depression Total Score: 7 07/27/2018 7:15 AM HEAD BATCHER documented as of this encounter Care Teams Machine Ii Coremaker Relationship Specialty Start Date End Date Rashida Pederson APRN MAPPING EDITOR PCP - General Nurse Practitioner 10/08/14 [address] [place] [address] Rashida Pederson APRN MAPPING EDITOR Assigned PCP 10/14/14 07/26/21 [address] [place] [address] documented as of this encounter
--- OUTSIDE RECORDS SUMMARY | 2022-07-16 10:45 | XMS_ITS | Encounter Summary ---
:1985 Author Organization [place] Address [address] [place] [address] Care Team Providers Name Role Phone Rashida Pederson APRN COUNTY ATTORNEY Primary Care Provider [phone] Rashida Pederson APRN COUNTY ATTORNEY Unavailable [phone] Reason for Visit Reason Comments Care Encounter Details Date Type Department Care Team Description 02/22/2020 Office [facility] Temitope Fitzgerald High- risk , second trimester; Visit - [facility] ZIYAD Cooley Lactating mother; [facility] [address] At high risk for venous thro mboembolism (VTE); [address] BMI 39.0-39.9,adult; Drive [address] History of pulmonary embolism [facility] [address] [place], [place] [phone] [address] (Work) [phone] Social History Tobacco Use Types Packs/Day Years [...] Fitzgerald CNM - 02/22/2020 2:00 PM CDT [facility] Nurse Midwives [facility] Contact information: Appointment line and to get a hold of CNM in clinic Wednesday-Wednesday 8 am - 5 pm: . Thereare some clinics with early start times (1st appointment 7:40 am) and others with evening hours (last appointment 6:20 pm). Most are typically open from 8 am to 5 pm. CNM electronic development technician answering service: . Specify your hospital of choice and leave a brief message for CNM; retread operator will then page CNM who is electronic development technician at your specified hospital and you [...] F. You are invited to Meet the [facility] A way to tour the hospital Labor and Delivery unit and meet the midwives in our group was postponed at the start of hospital restrictions following COVID-19. We will resume these when able and virtual options may be available in the future. Please call [phone] for ongoing updates. Touring the Maternity Care Center To schedule a tour at either [facility] or [facility], please do so online using the following links: [facility] - https://www.[facility].Genius.com/registerlist.asp?s=6&m=303&vs=5&p=2& amp;uuhbe=972&ps=1&group=37&it=1&jtj=448 [facility] - https://www.[facility].Genius.com/registerlist.asp?s=6&m=303&vs=5&p=2&a mp;uixxo=224&ps=1&group=38&it=1&lhl=635 Pre-registration for Hospital Stay: Sometime betweeen 30-37 weeks, it is recommended that you pre-register for your upcoming hospital stay on our website: https://sslforms.merrill.org/preregistration/he.asp and Control How do I decide what [...] of your skin. Pediatric Care Providers at [facility]: Choosing the right provider is one [...] be called a family physician or doctor, service officer, general practitioner, nurse practitioner, or physician???s assistant office manager. Yourchild or teenager???s provider may be called a portable trackman. Specialists: You???ll see a specialist for certain [...] providers in your area. Family Medicine at [facility] Nurse [facility]: https://www.merrill.org/specialties/family-medicine Many of our families enjoy all seeing [...] health care services are needed Pediatrics at [facility] Nurse [facility]: https://www.merrill.org/specialties/pediatric-care Through a teaching affiliation with the [facility], [facility] staff keeps current on new developments in [...] developmental and behavioral issues. Circumcision Educational video: https://www.Moblyng.Genius.com/#[email or web address] What is circumcision? At , baby boys have loose skin that covers the head of the penis. This skin is called the foreskin. When all or part of the foreskin of the penis is cut off, this is called circumcision. Why is circumcision done? Circumcision is done for many reasons including gnosticist, cultural, looks, and health. Some gnosticist groups circumcise all boys as a marlin-based [...] choose circumcision because they believe it is hall cleaner or will protect the boy or [...] clinics within a few weeks after . Evangelical circumcisions are most often done at home or in a presybeterian. Before the circumcision is performed, some providers [...] heals. Can I keep my son???s penis hall cleaner if it is circumcised? Regular washing with soap and water will keep any penis clean. Circumcision does not make the penis hall cleaner. Uncircumcised boys do need to be taught to clean beneath their foreskin, just like they needto be taught to wash their hands or brush their teeth. How do I decide if I should have my son circumcised? The [place] Academy of Pediatrics (AAP) says that circumcision may have health benefits. They do not recommend circumcision for all boys as a routine procedure. The AAP recommends that you talk to your health care provider to decide if circumcision is the right choice for your family. You mayalso wish to discuss the question with your family or retail cosmetics sales beauty advisor. What are the risks and benefits [...] some sexually transmitted infections For More Information [place] Academy of Family Physicians: Circumcision http://familydoctor.org/familydoctor/en/-newborns/tjmcfl-fcu-sqmzpnnf/i nfant- care/circumcision.html MedlinePlus: Circumcision (includes a slide show on the procedure) www.nlm.nih.gov/medlineplus/circumcision.html [place] Academy of Pediatrics: Policy statement on circumcision Http://pediatrics.aappublications.org/content/130/3/e756.abstract Childbirth and Parenting Education: [facility]: http://prisma health patewood hospitalRadialogica/ (870) 375-XJGQ Blooma: (education, yoga & wellness) www.VinAsset, Inc (Vertically Integrated Network) Enlightened Mama: www.PowWow IncightenedGame Plan Holdingsma.Genius.com Childbirth collective: (Parent topic nights) www.childbirthcollective.org/ Hypnobabies: www.hypnobabiestKarmaramaties.Genius.com/ Hypnobirthing: Http://hypnobirthing.com/ The Hour: https://RestoMesto/affkut-wlclhhjpga-gxubn/ APPS and Podcasts: Norma Schmid Nurture The Hour (for stories) Birthful Expectful The Longest Shortest Time PregnancyPodcast Jessi Gomez Book Recommendations: Susan [place]'s Birthing From Within--first few chapters include a [...] deciding to wean and deciding not to. [place] College of Nurse-Midwives (ACNM) http://www.client liaison.org/; look at the informational handouts at http://www.client liaison.org/Kffpj-Dzjs-Yyyqd www.mymidwife.org Mother to Baby (Medication and Herbal guidance in ): http://www.mothertobaby.org Toll-Free Hotline: 416.720.4493 LactMed (Medication use while ): http://toxnet.nlm.nih.gov/newtoxnet/lactmed.htm Women's Health.gov: http://www.womenshealth.gov/a-z-topics/index.html Iranian association - http://americanpregnancy.org Centering (group care option): http://centeringhealthcare.org Information about doulas: Childbirth collective: http://www.childbirthcollective.org/ Doulas of [place] (CARRI): www.carri.org [facility] regional telecommunications specialist project: http://twincitiesdoulaproject.com/ Infrastructure Developer and Family Education (ECFE): ECFE offers [...] page and click on events for link https://www.Where I've Been.com/events/614011242741885/ ??? [facility] Milk Hour, at 2:30 pm Run by LIZ Mosley Go to [facility] FB page and send message to get link https://www.Where I've Been.Genius.com/LockPath, Inc./ ??? [facility] holding virtual meetings the first Wednesday of each month, 8-9 pm, and the Third Wednesday, 10 - 11 am. Go to [facility] and [place] FB page; message to get link https://www.Where I've Been.Genius.com/LLJackiefGKasia/?hc_location=[facility] ??? [employer] offers a Lounge every Wednesday 12pm - 1pm, run by Yessenia Fernandes [facility] Leader Sign up via link at VinAsset, Inc (Vertically Integrated Network)/cbe- https://www.VinAsset, Inc (Vertically Integrated Network)/cbe- ??? [facility] is offering virtual support groups every Wednesday, 10:30 am - 12 pm, run bynurse HILL Https://www.Where I've Been.com/events/[email or web address]/ Classes: ??? [employer] is offering virtual and care classes: https://www.VinAsset, Inc (Vertically Integrated Network)/education-workshops ??? 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
--- OUTSIDE RECORDS SUMMARY | 2022-07-16 10:45 | XMS_ITS | Encounter Summary ---
:1985 Author Organization [place] Address [address] [place] [address] Care Team Providers Name Role Phone Rashida Pederson APRN, CNP Primary Care Provider [phone] Rashida Pederson APRN FIELD SUPERINTENDENT Unavailable [phone] Rashida Pederson APRN, CNP Unavailable [phone] Reason for Visit Reason Comments Physical Encounter Details Date Type Department Care Team Description 07/26/2018 Office Visit [facility] Rashida Pederson Routine ge neral medical examination at a health care facility (Primary Dx); [facility] [place] ZIYAD Benitez Encounter for removal of int rauterine contraceptive device [address] [place] [address] [facility] [address] [place], [place] [phone] [id number] Social History Tobacco Use Types Packs/Day Years [...] Comments Blood Pressure 132/80 07/26/2018 1:25 PM CARE PROCESS MANAGER Pulse 96 07/26/2018 1:25 PM CARE PROCESS MANAGER Temperature 36.8 ??C (98.2 ??F) 07/26/2018 1:25 PM CARE PROCESS MANAGER Respiratory Rate 14 07/26/2018 1:25 PM CARE PROCESS MANAGER Oxygen Saturation 97% 07/26/2018 1:25 PM CARE PROCESS MANAGER Inhaled Oxygen Concentration - - Weight 109.8 kg (242 lb) 07/26/2018 1:25 PM CARE PROCESS MANAGER Height 167.6 cm (5' 6) 07/26/2018 1:25 PM CARE PROCESS MANAGER Body Mass Index 39.06 07/26/2018 1:25 PM CARE PROCESS MANAGER documented in this encounter Patient Instructions Patient [...] six months for an exam and cleaning. PROCESS MANAGER documented in this encounter Progress Notes Rashida Pederson, ZIYAD FIELD SUPERINTENDENT - 07/26/2018 1:15 PM CST SUBJECTIVE: CC: [...] sooner as needed. Rashida Pederson APRN CNP [facility] PROCESS MANAGER documented in this encounter Plan of Treatment Not on filedocumented as of this encounter Procedures Procedure Name Priority Date/Time Associated Diagnosis Comme nts HC REMOVE Routine 07/26/2018 1:48 PM Routine general INTRAUTERINE DEVICE CARE PROCESS MANAGER medical examination at a health care facility PAP IMAGED THIN LAYER Routine 07/26/2018 1:48 PM Routine gener al Results for this SCREEN CARE PROCESS MANAGER medical examination procedur e are in at a health care the results facility section. HPV HIGH RISK TYPES Routine 07/26/2018 1:45 PM Routine general Results for this DNA CERVICAL CARE PROCESS MANAGER medical examination procedur e are in at a health care the results facility section. documented in this encounter Results Pap imaged thin layer screen with HPV - recommended age 30 - 65 years (select HPV order below) (07/26/2018 1:48 PM CARE PROCESS MANAGER) Component Value Ref Test Analysis Performed At [facility] Range Method Time Signature PAP NIL FROYATH Thiago Report COPATH Patient Name: LOGAN SANDOVAL MR#: [id number] Specimen #: [id number] Collected: 07/26/2018 Received: 07/27/2018 Reported: 07/28/2018 14:46 [...] MARV Light (ASCP) Processed and screened at [facility] CLINICAL HISTORY: Currently not having periods, Intra-Uterine Device, A previo us normal pap Date of Last Pap: 03/27/2016, Papanicolaou Test Limitations: ??Cervical cytology is a sc reening test with limited sensitivity; regular screening is critical for cancer prevention; Pap tests are p rimarily effective for the diagnosis/prevention of squamous cell carcinoma, not adenocarcinomas or other cancer s. TESTING LAB LOCATION: [address] ??[address] COLLECTION SITE: Client: ??[facility] Location: CRFP (R) Specimen (Source) Anatomical Collection Method Collection Time Re ceived Time Location / / Volume Laterality Cytologic 07/26/2018 1:48 07/27/2018 material PM CARE PROCESS MANAGER 10:09 AM CARE PROCESS MANAGER (specimen) Rashida Pederson TRAFFIC SAFETY ADMINISTRATOR FIELD SUPERINTENDENT LAB - OPTIME CLINICAL SPE CIMEN Performing Organization Address City/State/ZIP Code Phon e Number COPATH HPV High Risk Types DNA Cervical (07/26/2018 1:45 PM CARE PROCESS MANAGER) [facility] Method Time Signature HPV Source [facility] 07/26/2018 [place] 1:48 PM CARE PROCESS MANAGER [facility] HPV 16 DNA Negative NEG^Negat 07/29/2018 [facility] 3:48 PM [facility] HPV 18 DNA Negative NEG^Negat 07/29/2018 [facility] 3:48 PM [facility] Other HR HPV Negative NEG^Negat 07/29/2018 [facility] 3:48 PM [facility] Final This 07/29/2018 [facility] patient's 3:48 PM [facility] sample is [facility] negative for CAMPUS HPV DNA. Comment: This test was developed and its performa nce characteristics determined by the [facility], Molecular Diagnostics Laboratory. It has not been [...] Description Cervical Cells 07/26/2018 1:4 8 PM CARE PROCESS MANAGER [facility] Comment: [id number] Specimen Anatomical Collection Method Collection Time Receive d Time (Source) Location / / Volume Laterality Cervical Cells CERVIX UTERI 07/26/2018 1:45 PM 018 2:05 STRUCTURE / CARE PROCESS MANAGER PM CARE PROCESS MANAGER Unknown Rashida Pederson APRN FIELD SUPERINTENDENT LAB - BLOOD ORDERABLES Performing Organization Address City/State/ZIP Code Phon e Number [facility] [address] [place] [address] [facility] [address] [place] [address] documented in this encounter Visit Diagnoses Diagnosis Routine general medical examination at a health care facility - Primary Encounter for removal of intrauterine co ntraceptive device documented in this encounter Additional Health Concerns Assessment Noted Time PHQ-9 Depression Total Score: 7 07/27/2018 7:15 AM CARE PROCESS MANAGER documented as of this encounter Care Teams Watch And Clock Repair Clerk Relationship Specialty Start Date End Date Rashida Pederson APRN PCP - General Nurse Practitioner 10/08/14 FIELD SUPERINTENDENT [address] [place] [address] Rashida Pederson APRN PCP - Assigned PCP 10/14/14 10/18/18 FIELD SUPERINTENDENT [address] [place] [address] Rashida Pederson APRN Assigned PCP 10/14/14 1 09/26/20 FIELD SUPERINTENDENT [address] [place] [address] documented as of this encounter
--- OUTSIDE RECORDS SUMMARY | 2022-07-16 10:45 | XMS_ITS | Encounter Summary ---
:1985 Author Organization [place] Address [address] [place] [address] Care Team Providers Name Role Phone Rashida Pederson APRN SHARE HOLDER Primary Care Provider [phone] Rashida Pederson APRN SHARE HOLDER Unavailable [phone] Reason for Visit Reason Comments Care LMP: 07/13/19 Encounter Details Date Type Department Care Team Description 10/05/2019 Office [facility] Karis Hale High -risk supervision, first trimester; Visit - [facility] A, [facility] BMI 39.0-39.9,adult; [facility] [address] History of pulmonary embolis m; [address] At high risk for venous thromboembolism (VTE) Drive [address] [place] [address] [employer] [address] [phone] [address] (Work) [phone] Social History Tobacco Use Types Packs/Day Years [...] Comments Blood Pressure 110/74 10/05/2019 1:23 PM BLACKSMITH ASSISTANT Pulse 84 10/05/2019 1:23 PM BLACKSMITH ASSISTANT Temperature - - Respiratory Rate - - Oxygen Saturation - - Inhaled Oxygen Concentration - - Weight 111 kg (244 lb 12.8 oz) 10/05/2019 1:23 PM BLACKSMITH ASSISTANT Height 167 cm (5' 5.75) 10/05/2019 1:23 PM BLACKSMITH ASSISTANT Body Mass Index 39.81 10/05/2019 1:23 PM BLACKSMITH ASSISTANT documented in this encounter Progress Notes Karis [...] Vitamin D supplement (1,000-2,000 IU/day) and an Arjay 3/fish oil/DHA is beneficial. Research also supports [...] by mouth. 1-2 servings per day. ??? prenat.vits,ant,aqf-qjix-prlek ( VITAMIN) Tab Take 2 tablets by [...] Ref Range Test, Urine Positive (!) Negative KSMITH ASSISTANT documented in this encounter Miscellaneous Notes Patient Instructions - HE - Karis Hale CNM - 10/05/2019 1:20 PM BLACKSMITH ASSISTANT Welcome to [facility] and thank you for choosing us for your maternity care provider! Congratulations! [facility] Nurse Midwives - Contact information: Appointment line and to get a hold of CNM in clinic Wednesday-Wednesday 8 am - 5 pm: . Thereare some clinics with early start times (1st appointment 7:40 am) and others with evening hours (last appointment 6:20 pm). Most are typically open from 8 am to 5 pm. CNM business support liaison answering service: . Specify your hospital of choice and leave a brief message for CNM; steam drier operator will then page CNM who is business support liaison at your specified hospital and you should [...] nipples and thighs may also change. ?? [place] stretch ivan may appear on your abdomen, [...] the risk of stillbirth or having a dkj-jjffl-hwgcye baby. If you smoke, quit now. ?? [...] If you haveother questions, talk with a passenger representative. Will Working Harm My Baby? In most [...] Which Medications Are Safe? No prescription or mgzh-qgf-pffgkep drug is safe for everyone all of the time. But sometimes medications are needed. Be sure your health care provider knows you are . Then use only the medications he or she advises you to take. Please refer to the below resources for further information and discuss concern and questions with your passenger representative. Is It True That I Can Overheat [...] the load nearer. ?? Get a good choir accompanist. Test the weight of the load. ?? [...] legs can bend. GENETIC SCREENING OPTIONS AT [facility] ??? All testing is optional. We [...] Car Sachs, Sickle Cell, Hemophilia, Muscular Dystrophy, [place]ham???s disease and many others. ??? Cystic Fibrosis (CF) affects both males and females and people from all racial and ethnic groups. However, the disease is most common among Caucasians of Northern descent. CF is also common among Latinos and [place] Indians. The disease is less common among [...] A referral to a genetic counselor at [facility] or [facility] can be made by your care provider at any time. ??? This is also tested for in the Pine Metabolic Screen that your receives 24 hours afterbirth. DNA cell Testing: [facility] or [facility] (Non-Invasive Testing) ??? At 10 [...] protein). An ultrasound should be able to chicken picker any spinal defect as well. ??? [...] definitive diagnosis Referrals opportunities include: ??? Metro foreman shipping department, [facility], [facility] [employer] Aide o Offers nuchal translucency ultrasound; does not offer genetic counseling. ??? [facility] and [facility] ([facility]): o Approximately an hour long visit includes 30 min with genetic counselor who discusses all testing available and which ones might be beneficial to you based on age, personal and family history. o Blood will be drawn and the nuchal translucency ultrasound will be discussed and performed if desired. The Free DNA testing ([facility]) can be drawn also. o Targeted or detailed Level II ultrasounds are also available with these perinatology groups. : a Healthy Option for You and Your Baby Consider for the healthiest way to feed your baby. Ask your passenger representative or physician for more information. The choice of how you will feed your baby is important. Before your baby???s , you???ll want tolearn about the benefits of . [facility] have been designated Baby Friendly; an [...] your baby. Some important considerations: ??? The [place] Academy of Pediatrics, the World Health Organization, [...] that includes preparation. and classesare offered by [facility] [place]. Visit [employer] for class information. ??? After your baby???s [...] Right book or find it online at http://www.[facility].org/images/s tories/maternity/ZuhqxdIszn-Kfototnf-Qiz-Right.pdf or http://www.[facility].org/images/stories/meg frazier/gxrsnzoobi-hamnkdid-yqs-right/mqzzjikdyt-cxilplhm-fjt-right.html#p=8 You can sign up for a weekly parenting e-mail that gives support, tips and advice from health rn critical care that starts with and continues through the toddler years. To register, go to www.[facility].org/baby at any time during your . : OUTPATIENT RESOURCES Baby Friendly Hospitals and clinics: https://www.[facility].org/maternity/wypgu-nfmtwheek-vdxb/baby-friendly.html -Schedule an appointment with a [facility] CNM who is also a Surveyor'S Assistant by calling [phone] -Schedule an appointment with a [facility] CNM who is also a Surveyor'S Assistant by calling [phone]. We see women for visits at [facility] and [facility]. -Baby Caf?? and interested [...] the Baby Caf?? closest to you! Hmong, Slovenian, and South African which is may be available at some sites. [facility] [address] [place] [address] Wednesday: 10am-12pm [facility] [address] [place] [address] Wednesday 4-6pm [facility] [address] [place] [address] Wednesday 10am-12:30pm [facility] [address] [place] [address] Wednesdays: 4-6pm -Attend a baby weigh in at [facility]. consultants are available to answer questions Katja: Tuesdays 1:00 - 2:00 [facility], [facility]: Mondays 1:00 - 2:00 www.Ecovision -Attend one of the New Mama groups at [facility] in [facility]. [facility] also offers one-on-one in home and in office consults. www.Pure Elegance TV -Attend a Lukas Oconnor meeting. Multiple groups in several locations throughout the [facility]. The meetings are no-cost and always informative education session through [facility] Belem Oconnor Www.acosta.org/ Held at [facility] the second of each month at 7pm Childbirth and Parenting Education: [facility]: http://Ecovision/ (280) 266-DKJP Blo[place]: (education, yoga & wellness) www.[employer] [facility]: www.Pure Elegance TV Childbirth collective: (Parent topic nights) www.childbirthcollective.org/ Hypnobabies: [...] deciding to wean and deciding not to. [place] College of Nurse-Midwives (ACNM) http://www.passenger representative.org/; look at the informational handouts at http://www.passenger representative.org/Tvovq-Lcjh-Haurq www.mymidwife.org Mother to Baby (Medication and Herbal guidance in ): http://www.mothertobaby.org Toll-Free Hotline: 354.770.5972 LactMed (Medication use while ): http://toxnet.nlm.nih.gov/newtoxnet/lactmed.htm Women's Health.gov: http://www.womenshealth.gov/a-z-topics/index.html [place] association - http://americanpregnancy.org Centering (group care option): http://centeringhealthcare.org Information about doulas: Childbirth collective: http://www.childbirthcollective.org/ Doulas of [place] (CARRI): www.carri.org [facility] senior wealth advisor project: http://UniServitycitiesdoulaproject.com/ Service Delivery Supervisor and Family Education (ECFE): ECFE offers parents hands-on learning experiences that will nourish a lifetime of teachable moments. http://ecfe.info/ecfe-home/ October www.Power Plus Communications.com FDA - Nutrition www.mypyramid.gov Under For Consumers, [...] pills, chews). Take with dairy Vitamin D3 8019-7159 IU geltab daily. Take with fattiest meal. Look for fortified foods also (Dairy,Juice) 2-3 (4) oz servings of fish, seafood, nuts (walnuts & almonds), oils, avocado per week - if not,take Arjay 3 Fatty acids: DHA & SAV 3916-6946 mg per day. Other names: cod liver oil, fish oil. Take with fattiest meal. Some prenatals have DHA, but typically not a sufficient dose. Fish: Do not eat shark, swordfish, katalina mackerel, or tilefish when you are or . They contain high levels of mercury. Limit white (albacore) tuna to no more than 6 ounces per week. Http://www.fda.gov/downloads/ForConsumers/ConsumerUpdates/CRO282136.pdf Touring the Maternity Care Center To schedule a tour at either [place] [facility] or [facility], please do so online using the following links: [facility] - https://www.Sanergy.Domee/registerlist.asp?s=6&m=303&vs=5&p=2& amp;gahyi=449&ps=1&group=37&it=1&zto=124 [facility] - https://www.Sanergy.Domee/registerlist.asp?s=6&m=303&vs=5&p=2&a mp;rrdiu=325&ps=1&group=38&it=1&xav=042 You are invited to Meet the [facility] Nurse-Midwives A way to tour the hospital Labor and Delivery unit and meet the midwives that attend births since you may not have the opportunity to meet them during your care. Some sessions are informal meet and greet type social hours, others address a specific concern or topic. Thursday, September 27, 2018 7-8pm [facility] Friday, November 30, 2018 7-8pm [facility], Auditorium A March 7-8pm [facility] Friday June 28, 2019 7-8 pm [facility], Auditorum A Please call [phone] to register KSMITH ASSISTANT documented in this encounter Plan of [...] Depression Total Score: 7 07/27/2018 7:15 AM BLACKSMITH ASSISTANT documented as of this encounter Care Teams Remote Encoding Operations Supervisor Relationship Specialty Start Date End Date Rashida Pederson APRN SHARE HOLDER PCP - General Nurse Practitioner 10/08/14 [address] [place], [place] [id number] Rashida Pederson APRN SHARE HOLDER Assigned PCP 10/14/14 07/26/21 [address] [place], [place] [id number] documented as of this encounter
--- OUTSIDE RECORDS SUMMARY | 2022-07-16 10:45 | XMS_ITS | Encounter Summary ---
:1985 Author Organization [place] Address [address] [place] [address] Care Team Providers Name Role Phone Rashida Pederson APRN CLIPPER MACHINE Primary Care Provider [phone] Rashida Pederson APRN CLIPPER MACHINE Unavailable [phone] Encounter Details Date Type Department Care Team Description 08/24/2019 Communication - [facility] Karis Hale, [facility] [address] [facility] [address] [facility] [address] [place] [address] Social History Tobacco Use Types [...] Depression Total Score: 7 07/27/2018 7:15 AM PIPELINE SYSTEMS OPERATOR documented as of this encounter Care Teams Automatic Packer Operator Relationship Specialty Start Date End Date Rashida Pederson APRN CLIPPER MACHINE PCP - General Nurse Practitioner 10/08/14 [address] [place], [place] [id number] Rashida Pederson APRN CLIPPER MACHINE Assigned PCP 10/14/14 07/26/21 [address] [place], [place] [id number] documented as of this encounter
--- OUTSIDE RECORDS SUMMARY | 2022-07-16 10:46 | XMS_ITS | Encounter Summary ---
:1985 Author Organization [place] Address [address] [place] [address] Care Team Providers Name Role Phone Rashida Pederson APRN, CNP Primary Care Provider [phone] Rashida Pederson APRN WAREHOUSE FOREMAN Unavailable [phone] Rashida Pederson APRN, CNP Unavailable [phone] Reason for Visit Reason Comments Physical non-fasting Encounter Details Date Type Department Care Team Description 02/15/2017 Office Visit [facility] Rashida Pederson e xamination (Primary Dx); [facility] ZIYAD Benitez CNP Mirena IUD (intrauterine device) in plac e; [address] [place] [address] [phone] Social History Tobacco Use Types Packs/Day Years [...] several months ago through a clinic in [place]. Has lost weight since starting this medication. Highest weight was 241 lbs. Current weight is 227 lbs. 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 Getting associates degree at [employer] and plans to finish elsewhere for bachelors. [...] her behalf by Janet Davis, a trained biomedical equipment support specialist. The creation of this document is based the provider's statements to the biomedical equipment support specialist. Janet Davis February 15, 2017 10:51 AM [...] information in this document, created by the biomedical equipment support specialist for me, accurately reflects the services I personally performed and the decisions made by me. I have reviewed and approved this document for accuracy. Rashida Pederson APRN CNP [facility] documented in this encounter Nursing Notes [...] Patholo gist Method Time Signature Specimen Vagina [place] Description [facility] Wet Prep No Trichomonas seen [place] No clue cells seen [facility] No yeast seen [place] Micro Report FINAL [place] Status 02/15/2017 [facility] Specimen Anatomical Collection Method Collection Time Receive d Time (Source) Location / / Volume Laterality 02/15/2017 11:00 02/15/2017 AM CDT 11:30 AM CDT Rashida Pederson APRN, CNP LAB - MICRO GENERAL ORDER SUSHMA Performing Organization Address [facility] Phon e Number [facility] [address] [place] [address] CHLAMYDIA TRACHOMATIS PCR (02/15/2017 11:00 AM CDT) Component Value Ref Test Analysis Performed At [facility] gist Range Method Time Signature Specimen Endocervical [facility] Chlamydia Negative NEG MICRO RAPID Trachomatis PCR Negative for C. trachomatis rRNA by patient ombudsperson mediated amplification. TESTING LAB A negative result [...] MICRO GENERAL ORDER SUSHMA Performing Organization Address City/[facility] Phon e Number MICRO RAPID TESTING LAB [address] [place] [address] [facility] [address] [place] [address] NEISSERIA GONORRHOEA PCR (02/15/2017 11:00 AM CDT) [facility] gist Method Time Signature Specimen Endocervical [facility] N Gonorrhea Negative NEG MICRO RAPID PCR [...] CDT 11:30 AM CDT Rashida Pederson APRN WAREHOUSE FOREMAN LAB - MICRO GENERAL ORDER SUSHMA Performing Organization Address City/State/ZIP Code Phon e Number MICRO RAPID TESTING LAB [address] [place] [address] [facility] [address] [place] [address] documented in this encounter Visit Diagnoses Diagnosis Wellness examination - Primary Mirena IUD (intrauterine device) in plac e Presence of intrauterine contraceptive d evice Anxiety Anxiety state, unspecified documented in this encounter Additional Health Concerns Assessment Noted Time PHQ-9 Depression Total Score: 7 02/16/2017 7:15 AM CDT documented as of this encounter Care Teams Program Manager Relationship Specialty Start Date End Date Rashida Pederson APRN PCP - General Nurse Practitioner 10/08/14 WAREHOUSE FOREMAN [address] [place] [address] Rashida Pederson APRN PCP - Assigned PCP 10/14/14 10/18/18 WAREHOUSE FOREMAN [address] [place] [address] Rashida Pederson APRN Assigned PCP 10/14/14 1 09/26/20 WAREHOUSE FOREMAN [address] [place] [address] documented as of this encounter
--- OUTSIDE RECORDS SUMMARY | 2022-07-16 10:46 | XMS_ITS | Encounter Summary ---
:1985 Author Organization [place] Address [address] [place] [address] Care Team Providers Name Role Phone Rashida Pederson APRN OUTSOLE HANDLER Primary Care Provider [phone] Rashida Pederson APRN OUTSOLE HANDLER Unavailable [phone] BgRashida cornejo APRN OUTSOLE HANDLER Unavailable [phone] Reason for Visit Reason Comments Medication Question Encounter Details Date Type Department Care Team Description 07/22/2016 [facility] Concha Balderrama , [address] [id number] Medication [facility] Provider, Historical Question [address] [place] [address] Social History Tobacco Use Types [...] documented as of this encounter Care Teams Floor Associate Relationship Specialty Start Date End Date Rashida Pederson APRN PCP - General Nurse Practitioner 10/08/14 OUTSOLE HANDLER [address] [place] [address] Rashida Pederson APRN PCP - Assigned PCP 10/14/14 10/18/18 OUTSOLE HANDLER [address] [place] [address] Rashida Pederson APRN Assigned PCP 10/14/14 1 09/26/20 OUTSOLE HANDLER [address] [place] [address] documented as of this encounter
--- OUTSIDE RECORDS SUMMARY | 2022-07-16 10:46 | XMS_ITS | Encounter Summary ---
:1985 Author Organization [place] Address [address] [place] [address] Care Team Providers Name Role Phone Rashida Pederson APRN, CNP Primary Care Provider [phone] Rashida Pederson APRN SUPPORT MANAGER Unavailable [phone] Bg, Rashida Benitez APRN SUPPORT MANAGER Unavailable [phone] Reason for Visit Reason Onset Date Comments Panel Management 03/09/2016 pap and depression Encounter Details Date Type Department Care Team Description 03/09/2016 Telephone [facility] Rashida Pederson ([facility] [place] ZIYAD Benitez CNP and depression) [address] [place] [address] [phone] Social History Tobacco Use Types Packs/Day Years [...] to do PHQ9. Type of outreach: Sent [employer] message. Questions for provider review: None Yessenia Mcgarry CMA Chart routed to Care Team . documented in this encounter Plan of Treatment Not on filedocumented as of this encounter Visit Diagnoses Not on filedocumented in this encounter Additional Health Concerns Assessment Noted Time PHQ-9 Depression Total Score: 10 09/18/2015 9:10 AM CS T documented as of this encounter Care Teams Data Software Engineer Relationship Specialty Start Date End Date Rashida Pederson APRN PCP - General Nurse Practitioner 10/08/14 SUPPORT MANAGER [address] [place] [address] Rashida Pederson APRN PCP - Assigned PCP 10/14/14 10/18/18 SUPPORT MANAGER [address] [place] [address] Rashida Pederson APRN Assigned PCP 10/14/14 1 09/26/20 SUPPORT MANAGER [address] [place] [address] documented as of this encounter
--- OUTSIDE RECORDS SUMMARY | 2022-07-16 10:46 | XMS_ITS | Encounter Summary ---
:1985 Author Organization [place] Address [address] [place] [address] Care Team Providers Name Role Phone Rashida Pederson APRN BINDERY SUPERVISOR Primary Care Provider [phone] BgRashida cornejo APRN BINDERY SUPERVISOR Unavailable [phone] Bg, Rashida Benitez APRN BINDERY SUPERVISOR Unavailable [phone] Reason for Visit Reason Comments URI symptoms x 5 days. Chest con gestion, headache, productive cough with brown-yellow sputum. Encounter Details Date Type Department Care Team Description 07/21/2016 Office Visit - [facility] [place], Acute UR I; [facility] Catalina Butts PA-C History of pulmonary embolism [address] [place] [id number] [phone] Social History Tobacco Use Types Packs/Day Years [...] (243 lb 8 oz) 07/21/2016 2:00 PM TEXTILE COLORIST FORMULATOR Height - - Body Mass Index 41.15 [...] of urine with coughing. She has taken ooox-ufl-zkpticx cough remedies and they have onlyhelped minimally. [...] PE occurred around age 20, followed by [facility], workup negative. Patient Active Problem List [...] recognition software, which may contain typographical errors. ILE COLORIST FORMULATOR documented in this encounter Plan of Treatment Not on filedocumented as of this encounter Visit Diagnoses Diagnosis Acute URI Acute upper respiratory infections of un specified site History of pulmonary embolism Personal history of pulmonary embolism documented in this encounter Additional Health Concerns Assessment Noted Time PHQ-9 Depression Total Score: 5 03/28/2016 7:13 AM CDT documented as of this encounter Care Teams Ventilation Mechanic Relationship Specialty Start Date End Date Rashida Pederson APRN PCP - General Nurse Practitioner 10/08/14 BINDERY SUPERVISOR [address] [place] [address] Rashida Pederson APRN PCP - Assigned PCP 10/14/14 10/18/18 BINDERY SUPERVISOR [address] [place] [address] Rashida Pederson APRN Assigned PCP 10/14/14 1 09/26/20 BINDERY SUPERVISOR [address] [place] [address] documented as of this encounter
--- OUTSIDE RECORDS SUMMARY | 2022-07-16 10:46 | XMS_ITS | Encounter Summary ---
:1985 Author Organization [place] Address [address] [place] [address] Care Team Providers Name Role Phone Rashida Pederson APRN, CNP Primary Care Provider [phone] Rashida Pederson APRN HEALTH ADMINISTRATOR Unavailable [phone] Rashida Pederson APRN HEALTH ADMINISTRATOR Unavailable [phone] Reason for Visit Reason Onset Date Comments Forms 05/18/2016 [facility] nursing program form Encounter Details Date Type Department Care Team Description 05/18/2016 Telephone [facility] Rashida Pederson Forms ([facility] ZIYAD Benitez CNP nursing program form) [address] [place] [id number] [phone] Social History Tobacco Use Types Packs/Day Years [...] 2:05 PM CDT Placed up front for cherry picker operator Diana Ozuna/Marketing Operations Consultant Telephone Encounter - Rashida Pederson APRN CNP - 05/20/2016 12:58 PM CDT Form completed and given to TC. Rashida Pederson CNP Telephone Encounter - Vannessa Gandhi - 05/18/2016 1:23 PM CDT Logan dropped off an [facility] form to be filled out. Please call Logan when readyfor cherry picker operator. documented in this encounter Plan of Treatment Not on filedocumented as of this encounter Visit Diagnoses Not on filedocumented in this encounter Additional Health Concerns Assessment Noted Time PHQ-9 Depression Total Score: 5 03/28/2016 7:13 AM CDT documented as of this encounter Care Teams Field Artillery Crewmember Relationship Specialty Start Date End Date Rashida Pederson APRN PCP - General Nurse Practitioner 10/08/14 HEALTH ADMINISTRATOR [address] [place] [address] Rashida Pederson APRN PCP - Assigned PCP 10/14/14 10/18/18 HEALTH ADMINISTRATOR [address] [place] [address] Rashida Pederson APRN Assigned PCP 10/14/14 1 09/26/20 HEALTH ADMINISTRATOR [address] [place] [address] documented as of this encounter
--- OUTSIDE RECORDS SUMMARY | 2022-07-16 10:46 | XMS_ITS | Encounter Summary ---
:1985 Author Organization [facility] Address [address] [place] [address] Care Team Providers Name Role Phone Rashida Pederson APRN MARKETING AGENT Primary Care Provider [phone] Rashida Pederson APRN MARKETING AGENT Unavailable [phone] BgRashida cornejo APRN MARKETING AGENT Unavailable [phone] Encounter Details Date Type Department Care Team Description 05/18/2016 [facility] Only [facility] Scr eening for tuberculosis [address] [address] Social History Tobacco Use Types [...] Tuberculosis by Quantiferon (05/18/2016 1:20 PM CDT) [facility] gist Method Time Signature M Tuberculosis Negative NEG [facility] M Tuberculosis 0.00 IU/mL [facility] Antigen Value [facility] Comment: This is a qualitative [...] (specimen) CDT PM CDT Rashida Pederson APRN MARKETING AGENT LAB - BLOOD ORDERABLES Performing Organization Address City/State/ZIP Code Phon e Number [facility] [address] [place] [address] [facility] documented in this encounter Visit Diagnoses Diagnosis Screening for tuberculosis Screening examination for pulmonary tube rculosis documented in this encounter Additional Health Concerns Assessment Noted Time PHQ-9 Depression Total Score: 5 03/28/2016 7:13 AM CDT documented as of this encounter Care Teams Animal Laboratory Helper Relationship Specialty Start Date End Date Rashida Pederson APRN PCP - General Nurse Practitioner 10/08/14 MARKETING AGENT [address] [place] [address] Rashida Pederson APRN PCP - Assigned PCP 10/14/14 10/18/18 MARKETING AGENT [address] [place] [address] Rashida Pederson APRN Assigned PCP 10/14/14 1 09/26/20 MARKETING AGENT [address] [place] [address] documented as of this encounter
--- OUTSIDE RECORDS SUMMARY | 2022-07-16 10:46 | XMS_ITS | Encounter Summary ---
:1985 Author Organization [place] Address [address] [place] [address] Care Team Providers Name Role Phone Rashida Pederson APRN, CNP Primary Care Provider [phone] Rashida Pederson APRN POST SECONDARY PROFESSIONAL Unavailable [phone] Rashida Pederson APRN, CNP Unavailable [phone] Reason for Visit Reason Comments Recheck Medication Patient Request for Note/Letter Encounter Details Date Type Department Care Team Description 09/17/2015 Office Visit [facility] Rashida Pederson Anxiety (P rimary Dx); [facility] [place] ZIYAD Benitez CNP Major depressive disorder, recurrent epi sode, mild (H); [address] [place] [address] [place] [address] [phone] Social History Tobacco Use Types Packs/Day Years [...] Comments Blood Pressure 120/80 09/17/2015 8:34 AM REHABILITATION SUPERVISOR Pulse 64 09/17/2015 8:34 AM REHABILITATION SUPERVISOR Temperature 36.6 ??C (97.9 ??F) 09/17/2015 8:34 AM REHABILITATION SUPERVISOR Respiratory Rate 14 09/17/2015 8:34 AM REHABILITATION SUPERVISOR Oxygen Saturation - - Inhaled Oxygen Concentration - - Weight 100.7 kg (222 lb) 09/17/2015 8:34 AM REHABILITATION SUPERVISOR Height 163.8 cm (5' 4.5) 09/17/2015 8:34 AM REHABILITATION SUPERVISOR Body Mass Index 37.52 09/17/2015 8:34 AM REHABILITATION SUPERVISOR documented in this encounter Patient Instructions Patient InstructionsRashida Pederson, ZIYAD POST SECONDARY PROFESSIONAL - 09/17/2015 8:58 AM REHABILITATION SUPERVISOR Images from the original note were not [...] the nature of your anxiety disorder. ?? [phone] [employer]. [address] [place] [address]. All rights reserved. This information is not intended as a substitute for professional medical care. Always follow your healthcare professional's instructions. BILITATION SUPERVISOR documented in this encounter Progress Notes Rashida [...] 19 - Total Score - 6 PHQ-9 Mongolian PHQ-9 Any Language GAD7 ?? Amount of [...] has only received prescription for ativan from [facility], last filled in 01/2015. Major depressive disorder, recurrent episode, mild (HCC) Orders: - escitalopram (LEXAPRO) 20 MG tablet; Take 1 tablet (20 mg) by mouth daily Other orders - DEPRESSION ACTION PLAN (DAP) FUTURE APPOINTMENTS: - Follow-up visit in 6 months, sooner as needed. Rashida Pederson APRN CNP [facility] BILITATION SUPERVISOR documented in this encounter Nursing Notes Yessenia [...] completed using cuff size: ernestine Mcgarry CMA BILITATION SUPERVISOR documented in this encounter Plan of [...] documented as of this encounter Care Teams Lead Ramp Agent Relationship Specialty Start Date End Date Rashida Pederson APRN PCP - General Nurse Practitioner 10/08/14 POST SECONDARY PROFESSIONAL [address] [place] [address] Rashida Pederson APRN PCP - Assigned PCP 10/14/14 10/18/18 POST SECONDARY PROFESSIONAL [address] [place] [address] Rashida Pederson APRN Assigned PCP 10/14/14 1 09/26/20 POST SECONDARY PROFESSIONAL [address] [place] [address] documented as of this encounter
--- OUTSIDE RECORDS SUMMARY | 2022-07-16 10:46 | XMS_ITS | Encounter Summary ---
:1985 Author Organization [place] Address [address] [place] [address] Care Team Providers Name Role Phone Rashida Pederson APRN, CNP Primary Care Provider [phone] Rashida Pederson APRN LEATHER STAMPER Unavailable [phone] Rashida Pederson APRN LEATHER STAMPER Unavailable [phone] Reason for Visit Reason Comments Flu Shot Recheck Medication Referral Encounter Details Date Type Department Care Team Description 04/21/2017 Office Visit [facility] Rashida Pederson Anxiety (P rimary Dx); [facility] [place] ZIYAD Benitez Mild episode of recurrent ma codi depressive disorder (H); [address] [facility] Panic attack; [place] [address] [facility] Screening examination for pulmonary tube rculosis; [address] [place] Need for prophylactic vaccin ation and inoculation against influenza [phone] Social History Tobacco Use Types Packs/Day [...] the person to be vaccinated ever had Guillain-Perry syndrome? No Form completed by Katharine Rashida [...] coming down all at once when classes pharmacy picking tech to pace. She reports increased anxiety, especially with her boyfriend's new job as a cop examiner, and distracting thoughts when trying to complete [...] behalf by Gerda Pratt, a trained medical affairs manager. The creation of this document is based on the provider's statements to the medical affairs manager. Gerda Pratt 1:26 PM April 21, 2017 [...] SPLIT VIRUS IM > 3 YO (QUADRIVALENT) [06728] - Vaccine Administration, Initial [37154] Other orders - DEPRESSION ACTION PLAN (DAP) The information in this document, created by the medical affairs manager for me, accurately reflects the services I personally performed and the decisions made by me. I have reviewed and approved this document for accuracy prior to leaving the patient care area. April 21, 2017 1:33 PM Follow up in 6 months, sooner as needed. Rashida Pederson APRN CNP [facility] documented in this encounter Nursing Notes [...] Signature TSH 3.30 0.40 - 4.00 04/22/2017 [facility] mU/L 10:22 AM CDT [facility] Specimen Anatomical Collection Method Collection Time Receive d Time (Source) Location / / Volume Laterality Blood specimen 04/21/2017 1:31 PM 017 1:33 (specimen) CDT PM CDT Rashida Pederson APRN LEATHER STAMPER LAB - BLOOD ORDERABLES Performing Organization Address City/State/ZIP Code Phon e Number [facility] [address] [place] [address] M Tuberculosis by Quantiferon (04/21/2017 1:31 PM CDT) Patholo gist Method Time Signature M Tuberculosis Negative NEG^Negat 04/23/2017 [facility] leila 4:01 PM CDT [facility] M Tuberculosis 0.00 IU/mL 04/23/2017 [facility] Value 4:01 PM CDT [facility] Comment: This is a qualitative test. ??The [...] Organization Address City/State/ZIP Code Phon e Number [address] documented in this encounter Visit Diagnoses [...] documented as of this encounter Care Teams Bicycle Mechanic Relationship Specialty Start Date End Date Rashida Pederson APRN PCP - General Nurse Practitioner 10/08/14 LEATHER STAMPER [address] [place] [address] Rashida Pederson APRN PCP - Assigned PCP 10/14/14 10/18/18 LEATHER STAMPER [address] [place] [address] Rashida Pederson APRN Assigned PCP 10/14/14 1 09/26/20 LEATHER STAMPER [address] [place] [address] documented as of this encounter
--- OUTSIDE RECORDS SUMMARY | 2022-07-16 10:46 | XMS_ITS | Encounter Summary ---
:1985 Author Organization [place] Address [address] [place] [address] Care Team Providers Name Role Phone Rashida Pederson APRN, CNP Primary Care Provider [phone] Rashida Pederson APRN STATEMENT CLERKS SUPERVISOR Unavailable [phone] Rashida Pederson APRN STATEMENT CLERKS SUPERVISOR Unavailable [phone] Reason for Visit Reason Onset Date Comments No Show 09/06/2017 Encounter Details Date Type Department Care Team Description 09/06/2017 Office Visit [facility] Rashida Pederson NO SHOW (P rimary Dx) [facility] [place] ZIYAD Benitez CNP [address] [place] [address] [phone] Social History Tobacco Use Types Packs/Day Years [...] a no show for this scheduled appointment. NEUROLOGY documented in this encounter Plan of Treatment Not on filedocumented as of this encounter Visit Diagnoses Diagnosis NO SHOW - Primary documented in this encounter Additional Health Concerns Assessment Noted Time PHQ-9 Depression Total Score: 9 04/21/2017 2:17 PM CDT documented as of this encounter Care Teams Pierce And Shave Press Operator Relationship Specialty Start Date End Date Rashida Pederson APRN PCP - General Nurse Practitioner 10/08/14 STATEMENT CLERKS SUPERVISOR [address] [place] [address] Rashida Pederson APRN PCP - Assigned PCP 10/14/14 10/18/18 STATEMENT CLERKS SUPERVISOR [address] [place] [address] Rashida Pederson APRN Assigned PCP 10/14/14 1 09/26/20 STATEMENT CLERKS SUPERVISOR [address] [place] [address] documented as of this encounter
--- OUTSIDE RECORDS SUMMARY | 2022-07-16 10:46 | XMS_ITS | Encounter Summary ---
:1985 Author Organization [place] Address [address] [place] [address] Care Team Providers Name Role Phone Rashida Pederson APRN BUTTERMAKER CONTINUOUS CHURN Primary Care Provider [phone] BgRashida cornejo APRN BUTTERMAKER CONTINUOUS CHURN Unavailable [phone] BgRashida cornejo APRN BUTTERMAKER CONTINUOUS CHURN Unavailable [phone] Encounter Details Date Type Department Care Team Description 05/05/2016 Records - [facility] Provider, [facility] [place] [address] Social History Tobacco Use Types [...] [facility] Surface 8:38 AM CDT [facility] Value Specimen Anatomical Collection Method / Collection Time Recei merry Time (Source) Location / Volume Laterality Blood specimen Venipuncture / 05/05/2016 8:30 05/05/20 16 (specimen) Unknown PM CDT 10:52 PM CDT Historical Provider LAB - BLOOD ORDERABLES Performing Organization Address City/State/ZIP Code Phon e Number [place] [address] [address] [facility] documented in this encounter Visit Diagnoses Not on filedocumented in this encounter Additional Health Concerns Assessment Noted Time PHQ-9 Depression Total Score: 5 03/28/2016 7:13 AM CDT documented as of this encounter Care Teams Cafeteria Server Relationship Specialty Start Date End Date Rashida Pederson APRN PCP - General Nurse Practitioner 10/08/14 BUTTERMAKER CONTINUOUS CHURN [address] [place] [address] Rashida Pederson APRN PCP - Assigned PCP 10/14/14 10/18/18 BUTTERMAKER CONTINUOUS CHURN [address] [place] [address] Rashida Pederson APRN Assigned PCP 10/14/14 1 09/26/20 BUTTERMAKER CONTINUOUS CHURN [address] [place] [address] documented as of this encounter
--- OUTSIDE RECORDS SUMMARY | 2022-07-16 10:46 | XMS_ITS | Encounter Summary ---
:1985 Author Organization [place] Address [address] [place] [address] Care Team Providers Name Role Phone Rashida Pederson APRN, CNP Primary Care Provider [phone] Rashida Pederson APRN BEET END SUPERVISOR Unavailable [phone] Rashida Pederson APRN, CNP Unavailable [phone] Reason for Visit Reason Onset Date Comments Medication Refill 08/05/2017 escitalopram (LEXAPR O) 20 MG tablet Encounter Details Date Type Department Care Team Description 08/04/2017 Refill [facility] Rashida Pederson ication Refill [place] ZIYAD Benitez CNP (escitalopram (LEXAPRO) [address] [place] [address] 20 MG tablet) [place] [address] [phone] (Wo rk) Social History Tobacco Use Types [...] she will call back to schedule apt. ECTOR PACKER GLASS CONTAINER Telephone Encounter - Tiffanie Young DO - 08/06/2017 10:57 AM CST Approved 30 day supply. Needs visit for further refills ECTOR PACKER GLASS CONTAINER Telephone Encounter - Concha Porras RN - 08/06/2017 8:58 AM CST Routing refill request to provider for review/approval because: Labs out of range: PHQ is elevated per OV note pt is to f/u in 6 months OK for refill? Concha Porras RN ECTOR PACKER GLASS CONTAINER Telephone Encounter - Angy Barone - 08/05/2017 11:52 AM CST Requested Prescriptions Pending Prescriptions Disp Refills ??? escitalopram (LEXAPRO) 20 MG tablet [Pharmacy Med Name: ESCITALOPRAM 20 MG TABLET] 30 tablet 3 Last Written Prescription Date: 04/21/17 Last Fill Quantity: 30, # refills: 3 Last Office Visit with [facility], [facility] or [facility] prescribing provider: 04/21/2017 Future Office Visit: [...] days with authorizing provider. See chart review. ECTOR PACKER GLASS CONTAINER documented in this encounter Plan of Treatment Not on filedocumented as of this encounter Visit Diagnoses Diagnosis Mild episode of recurrent major depressi ve disorder (H) Anxiety Anxiety state, unspecified documented in this encounter Additional Health Concerns Assessment Noted Time PHQ-9 Depression Total Score: 9 04/21/2017 2:17 PM CDT documented as of this encounter Care Teams Rattling Machine Tender Relationship Specialty Start Date End Date Rashida Pederson APRN PCP - General Nurse Practitioner 10/08/14 BEET END SUPERVISOR [address] [place] [address] Rashida Pederson APRN PCP - Assigned PCP 10/14/14 10/18/18 BEET END SUPERVISOR [address] [place] [address] Rashida Pederson APRN Assigned PCP 10/14/14 1 09/26/20 BEET END SUPERVISOR [address] [place] [address] documented as of this encounter
--- OUTSIDE RECORDS SUMMARY | 2022-07-16 10:46 | XMS_ITS | Encounter Summary ---
:1985 [facility] Address [address] [place] [address] Home Phone Mobile Phone Email Address Email Address Preferred Language Syriac Marital Status Single Alevism Affiliation Unknown Race White Ethnic Group Unknown Author Organization [place] Address [address] [place] [address] Care Team Providers Name Role Phone Rashida Pederson APRN MUSIC WRITER Primary Care Provider [phone] Rashida Pederson APRN MUSIC WRITER Unavailable [phone] BgRashida cornejo APRN MUSIC WRITER Unavailable [phone] Reason for Visit Reason Comments URI Cough Encounter Details Date Type Department Care Team Description 07/25/2016 Emergency [facility] Caio Guzman Bronchitis ; [facility] DO Palmer Reactive airway disease Emergency Room [address] [address] [place] [address] [facility] [phone] Social History Tobacco Use Types Packs/Day Years [...] 108.9 kg (240 lb) 07/25/2016 1:02 AM INSURANCE CLAIM AUDITOR Height 167.6 cm (5' 6) 07/25/2016 1:02 AM INSURANCE CLAIM AUDITOR Body Mass Index 38.74 07/25/2016 1:02 AM INSURANCE CLAIM AUDITOR documented in this encounter Medications at Time [...] Cobos's -- Treatment Tolerance -- Tolerated well RANCE CLAIM AUDITOR documented in this encounter ED Notes Ciao Guzman DO - 07/25/2016 1:11 AM CST eMERGENCY dEPARTMENT eNCOUnter CHIEF COMPLAINT Chief Complaint Patient presents with ??? URI ??? Cough HPI Logan Arredondo is a 31 y.o. female who presents with cough. 1 week ago, patient developed a gradual onset of a cough with associated wheezing both of which have persisted since. Last week, she did present to [facility] where she was diagnosed with [...] behalf by Casey Lawton, a trained medical imaging specialist. 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 Smoking status: [...] the scribe. Caio Guzman DO 07/25/16 0259 RANCE CLAIM AUDITOR documented in this encounter Plan of Treatment Not on filedocumented as of this encounter Visit Diagnoses Diagnosis Bronchitis Bronchitis, not specified as acute or ch ronic Reactive airway disease Unspecified asthma documented in this encounter Additional Health Concerns Assessment Noted Time PHQ-9 Depression Total Score: 5 03/28/2016 7:13 AM CDT documented as of this encounter Care Teams Merchandise Supervisor Relationship Specialty Start Date End Date Rashida Pederson APRN PCP - General Nurse Practitioner 10/08/14 MUSIC WRITER [address] [place] [address] Rashida Pedersno APRN PCP - Assigned PCP 10/14/14 3 MUSIC WRITER [address] [place], [place] [id number] Rashida Pederson APRN Assigned PCP 10/14/14 1 09/26/20 MUSIC WRITER [address] [place] [address] documented as of this encounter
--- OUTSIDE RECORDS SUMMARY | 2022-07-16 10:46 | XMS_ITS | Encounter Summary ---
:1985 [facility] Address [address] [place] [address] Home Phone Mobile Phone Email Address Email Address Preferred Language Citizen Of [place] Marital Status Single Mu-Ism Affiliation Unknown Race White Ethnic Group Unknown Author Organization [place] Address [address] [place] [address] Care Team Providers Name Role Phone Rashida Pederson APRN FREIGHT ROUTER Primary Care Provider [phone] BgRashida cornejo APRN FREIGHT ROUTER Unavailable [phone] BgRashida cornejo APRN FREIGHT ROUTER Unavailable [phone] Reason for Visit Reason Onset Date Comments Refill Request 08/30/2017 lexapro Encounter Details Date Type Department Care Team Description 08/30/[address] [facility] Tiffanie Irvin, Ref ill Request [facility] (lexapro) [address] [place] [id number] [facility] [phone] [place] [address] (Wo rk) Social History Tobacco [...] pt has appointment 09/06 Prescription approved per [facility] Refill Protocol. Paula Poe RN, BSN NEEDLE MACHINE OPERATOR Telephone Encounter - Paula Poe RN - 08/31/2017 9:59 AM TWO NEEDLE MACHINE OPERATOR Message from eVoter: Original authorizing provider: DO Logan Santos Dimitry Arredondo would like a refill of the following medications: escitalopram (LEXAPRO) 20 MG tablet [Tiffanie Young DO] Preferred pharmacy: [facility] [address] [facility] [address] [place] Comment: I have an appointment scheduled for September 06 but not enough of the Lexapro to get me to that date. Wondering if a refill can be made. Otherwise I can just take half tabs until then. 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 (H) Anxiety Anxiety state, unspecified documented in this encounter Additional Health Concerns Assessment Noted Time PHQ-9 Depression Total Score: 9 04/21/2017 2:17 PM CDT documented as of this encounter Care Teams Design Release Engineer Relationship Specialty Start Date End Date Rashida Pederson APRN PCP - General Nurse Practitioner 10/08/14 FREIGHT R[address]TER [address] [place] [address] Rashida Pederson APRN PCP - Assigned PCP 10/14/14 10/18/18 FREIGHT R[address]TER [address] [place] [address] Rashida Pederson APRN Assigned PCP 10/14/14 1 09/26/20 FREIGHT R[address]TER [address] [place] [address] documented as of this encounter
--- OUTSIDE RECORDS SUMMARY | 2022-07-16 10:46 | XMS_ITS | Encounter Summary ---
:1985 Author Organization [place] Address [address] [place] [address] Care Team Providers Name Role Phone Rashida Pederson APRN UNIVERSITY DEMONSTRATOR Primary Care Provider [phone] Rashida Pederson APRN UNIVERSITY DEMONSTRATOR Unavailable [phone] BgRashida cornejo APRN UNIVERSITY DEMONSTRATOR Unavailable [phone] Reason for Visit Reason Onset Date Comments Panel Management 12/18/2015 pap Encounter Details Date Type Department Care Team Description 12/18/2015 Telephone [facility] Rashida Pederson (pap) Clinic [place] ZIYAD Benitez CNP [address] [address] [phone] Social History Tobacco Use Types Packs/Day Years [...] physical and pap. Type of outreach: Sent [email or web address] message. Questions for provider review: None Yessenia Mcgarry CMA Chart routed to care team . documented in this encounter Plan of Treatment Not on filedocumented as of this encounter Visit Diagnoses Not on filedocumented in this encounter Additional Health Concerns Assessment Noted Time PHQ-9 Depression Total Score: 10 09/18/2015 9:10 AM CS T documented as of this encounter Care Teams Automobile Drivers Relationship Specialty Start Date End Date Rashida Pederson APRN PCP - General Nurse Practitioner 10/08/14 UNIVERSITY DEMONSTRATOR [address] [place] [address] Rashida Pederson APRN PCP - Assigned PCP 10/14/14 10/18/18 UNIVERSITY DEMONSTRATOR [address] [place] [address] Rashida Pederson APRN Assigned PCP 10/14/14 1 09/26/20 UNIVERSITY DEMONSTRATOR [address] [place] [address] documented as of this encounter
--- OUTSIDE RECORDS SUMMARY | 2022-07-16 10:46 | XMS_ITS | Encounter Summary ---
:1985 Author Organization [place] Address [address] [place] [address] Care Team Providers Name Role Phone Rashida Pederson APRN, CNP Primary Care Provider [phone] Rashida Pederson APRN CALL OR CONTACT CENTRE TEAM LEADER Unavailable [phone] Rashida Pederson APRN CALL OR CONTACT CENTRE TEAM LEADER Unavailable [phone] Reason for Visit Reason Onset Date Comments Nurse Advice Line 05/13/2016 mantoux testing Encounter Details Date Type Department Care Team Description 05/13/2016 [facility]phone [facility] [place] ZIYAD Benitez CNP (mantoux testing) [address] [place] [address] [phone] Social History Tobacco Use Types Packs/Day Years [...] to discuss further. Thank you. Routed to: [facility] Isabel Swenson RN [place] [facility] documented in this encounter Plan of Treatment Not on filedocumented as of this encounter Results M Tuberculosis by Quantiferon (05/18/2016 1:20 PM CDT) [facility] Method Time Signature M Tuberculosis Negative NEG [facility] Result [facility] M Tuberculosis 0.00 IU/mL [facility] Antigen Value [facility] Comment: This is a qualitative test. [...] (specimen) CDT PM CDT Rashida Pederson APRN CALL OR CONTACT CENTRE TEAM LEADER LAB - BLOOD ORDERABLES Performing Organization Address City/State/ZIP Code Phon e Number [facility] [address] documented in this encounter Visit Diagnoses Diagnosis Screening for tuberculosis - Primary Screening examination for pulmonary tube rculosis documented in this encounter Additional Health Concerns Assessment Noted Time PHQ-9 Depression Total Score: 5 03/28/2016 7:13 AM CDT documented as of this encounter Care Teams Gas Compressor Turbine Operator Relationship Specialty Start Date End Date Rashida Pederson APRN PCP - General Nurse Practitioner 10/08/14 CALL OR CONTACT CENTRE TEAM LEADER [address] [place] [address] Rashida Pederson APRN PCP - Assigned PCP 10/14/14 10/18/18 CALL OR CONTACT CENTRE TEAM LEADER [address] [place] [address] Rashida Pederson APRN Assigned PCP 10/14/14 1 09/26/20 CALL OR CONTACT CENTRE TEAM LEADER [address] [place] [address] documented as of this encounter
--- OUTSIDE RECORDS SUMMARY | 2022-07-16 10:46 | XMS_ITS | Encounter Summary ---
:1985 Author Organization [place] Address [address] [place] [address] Care Team Providers Name Role Phone Rashida Pederson APRN, CNP Primary Care Provider [phone] Rashida Pederson APRN CANTILEVER CRANE OPERATOR Unavailable [phone] Rashida Pederson APRN, CNP Unavailable [phone] Reason for Visit Reason Comments Physical fasting Encounter Details Date Type Department Care Team Description 03/27/2016 Office Visit [facility] Rashida Pederson hi story and physical examination of adult (Primary Dx); Clinic [place] ZIYAD Benitez Major depressive disorder, r ecurrent episode, mild (H); [id number] [facility] Anxiety; [place] [address] [facility] Acute non-recurrent frontal sinusitis; [phone] [place], [place] CARDIOVASCULAR SCREENING; LD L GOAL LESS THAN [phone] Social History Tobacco Use Types Packs/Day Years [...] score of 3. 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 Today's PHQ-2 Score: PHQ-2 (??1998 [...] LDL, TRIG, CHOLHDLRATIO, NHDL in the last 15803 hours. Reviewed orders with patient. Reviewed health maintenance and updated orders accordingly - Yes Mammo Decision Support: Mammogram not appropriate for this patient based on age. Last Mammo:No results found. History of abnormal Pap smear: NO - age 21-29 PAP every 3 years recommended All Histories reviewed and updated in [facility]. ROS: C: NEGATIVE for fever, chills, [...] complete phone visit. Rashida Pederson APRN CNP [facility] documented in this encounter Nursing Notes Constance [...] 20 - 75 [facility] Deficiency ug/L [place] [facility] screening [facility] Comment: Season, race, dietary intake, and treatm ent affect the concentration of 95-tdljuqf-Stdbtot D. Values may decrea se during winter [...] Code Phon e Number [facility] [address] [place] [address] [facility] TSH with free T4 reflex (03/27/2016 10:12 AM CDT) athologist Signature TSH 3.95 0.40 - 4.00 [facility] mU/L [facility] Specimen Anatomical Collection Method Collection Time Receive d Time (Source) Location / / Volume Laterality Blood specimen 03/27/2016 10:12 6 (specimen) AM CDT 10:13 AM CDT Rashida Pederson APRN, CNP LAB - BLOOD ORDERABLES Performing Organization Address City/State/ZIP Code Phon e Number [facility] [address] [place] [address] (ABNORMAL) Lipid panel reflex to direct LDL (03/27/2016 10:12 AM CDT) P athologist Signature Cholesterol 215 (H) <200 mg/dL [facility] Comment: Desirable: <200 mg/dl Triglycerides 111 <150 mg/dL [facility] Comment: Fasting specimen HDL Cholesterol 56 >49 mg/dL [place] [facility] LDL Cholesterol Calculated 137 (H) <100 mg/dL [facility] Comment: Above desirable: ??100-129 mg/dl Borderline High: ??130-159 mg/dL High: ? 160-189 mg/dL Very high: ? >189 mg/dl Non HDL Cholesterol 159 (H) <130 mg/dL [facility] Comment: Above Desirable: ??130-159 mg/dl Borderline high: ??160-189 mg/dl High: ? 190-219 mg/dl Very high: ? >219 mg/dl Specimen Anatomical Collection Method Collection Time Receive d Time (Source) Location / / Volume Laterality Blood specimen 03/27/2016 10:12 6 (specimen) AM CDT 10:13 AM CDT Rashida Pederson APRN CANTILEVER CRANE OPERATOR LAB - BLOOD ORDERABLES Performing Organization Address City/State/ZIP Code Phon e Number [facility] [address] [place] [address] (ABNORMAL) Comprehensive metabolic panel (03/27/2016 10:12 AM CDT) [facility] gist Method Time Signature Sodium 136 133 - 144 [place] mmol/L [facility] Potassium 4.3 3.4 - 5.3 [place] mmol/L [facility] Chloride 103 94 - 109 [place] mmol/L [facility] Carbon Dioxide 25 20 - 32 [place] mmol/L [facility] Anion Gap 8 3 - 14 [place] mmol/L [facility] Glucose 86 70 - 99 [place] mg/dL [facility] Urea Nitrogen 10 7 - 30 [place] mg/dL [facility] Creatinine 0.58 0.52 - [place] 1.04 CLINICS mg/dL [facility] GFR Estimate >90 >60 [place] Non GFR Calc mL/min/1. CLINICS [address]2 [facility] GFR Estimate If >90 >60 [place] Black GFR Calc mL/min/1. CLIN ICS 7m2 [facility] Calcium 9.2 8.5 - [facility] 10.1 CLINICS mg/dL [facility] Bilirubin Total 0.4 0.2 - 1.3 [place] mg/dL [facility] Albumin 4.1 3.4 - 5.0 [place] g/dL [facility] Protein Total 8.2 6.8 - 8.8 [place] g/dL [facility] Alkaline 119 40 - 150 [place] Phosphatase U/L [facility] ALT 58 (H) 0 - 50 [facility] U/L [facility] AST 42 0 - 45 [place] U/L [facility] Specimen Anatomical Collection Method Collection Time Receive d Time (Source) Location / / Volume Laterality Blood specimen 03/27/2016 10:12 6 (specimen) AM CDT 10:13 AM CDT Rashida Pederson APRN CANTILEVER CRANE OPERATOR LAB - BLOOD ORDERABLES Performing Organization Address City/State/ZIP Code Phon e Number [facility] [address] [place] [address] CBC with platelets differential (03/27/2016 10:12 AM CDT) [facility] gist Method Time Signature WBC 6.3 4.0 - [facility] 11.0 CLINICS 10e9/L [place] RBC Count 4.67 3.8 - 5.2 [place] 10e12/L [facility] Hemoglobin 14.5 11.7 - [place] 15.7 g/dL [facility] Hematocrit 42.6 35.0 - [place] 47.0 % [facility] MCV 91 78 - [address] [facility] MCH 31.0 26.5 - [place] 33.0 pg [facility] MCHC 34.0 31.5 - [place] 36.5 g/dL [facility] RDW 12.0 10.0 - [place] 15.0 % [facility] Platelet Count 245 150 - 450 [place] 10e9/L [facility] Diff Method Automated [place] Method [facility] % Neutrophils 47.7 % [facility] % Lymphocytes 40.3 % [facility] % Monocytes 9.0 % [facility] % Eosinophils 2.7 % [facility] % Basophils 0.3 % [facility] Absolute 3.0 1.6 - 8.3 [place] Neutrophil 10e9/L [facility] Absolute 2.5 0.8 - 5.3 [place] Lymphocytes 10e9/L [facility] Absolute 0.6 0.0 - 1.3 [facility] Monocytes 10e9/L [facility] Absolute 0.2 0.0 - 0.7 [facility] Eosinophils 10e9/L [facility] Absolute 0.0 0.0 - 0.2 [facility] Basophils 10e9/L [facility] Specimen Anatomical Collection Method Collection Time Receive d Time (Source) Location / / Volume Laterality Blood specimen 03/27/2016 10:12 6 (specimen) AM CDT 10:13 AM CDT Rashida Pederson APRN CANTILEVER CRANE OPERATOR LAB - BLOOD ORDERABLES Performing Organization Address [facility] Phon e Number [facility] [address] [place] [address] Wet prep (03/27/2016 10:00 AM CDT) [facility] Method Time Signature Specimen Vagina [place] Description [facility] Wet Prep No Trichomonas seen [place] No clue cells seen [facility] No yeast seen [place] Micro Report FINAL [place] Status 03/27/2016 [facility] Specimen Anatomical Collection Method Collection Time Receive d Time (Source) Location / / Volume Laterality 03/27/2016 10:00 03/27/2016 AM CDT 10:25 AM CDT Rashida Pederson APRN, CNP LAB - MICRO GENERAL ORDER SUSHMA Performing Organization Address [facility] Phon e Number [facility] [address] [place] [address] CHLAMYDIA TRACHOMATIS PCR (03/27/2016 10:00 AM CDT) Component Value Ref Test Analysis Performed At [facility] Range Method Time Signature Specimen Cervical [facility] Description [facility] Chlamydia Negative NEG [facility] Trachomatis Negative for C. trachomatis rRNA by cotton seed culler mediated amplification. [place] [facility] PCR A negative result by transc ription mediated amplification does not preclude the [facility] presence of C. trachomatis infection because re sults are dependent on proper BANK and adequate collection, absence of inhibitors, and suffici ent rRNA to be detected. Specimen (Source) Anatomical Collection Method Collection Time Re ceived Time Location / / Volume Laterality Endocervical swab 03/27/2016 10:00 2015 (procedure) AM CDT 10:24 AM CDT Rashida Pederson APRN CANTILEVER CRANE OPERATOR LAB - MICRO GENERAL ORDER SUSHMA Performing Organization Address [facility] Phon e Number [address] [address] [place] GONORRHOEA PCR (03/27/2016 10:00 AM CDT) Component Value Ref Test Analysis Performed At [facility] gist Range Method Time Signature Specimen Cervical [facility] N Gonorrhea Negative NEG [facility] Negative for N. gonorrhoeae rRNA by transcripti on mediated amplification. [place] [facility] A negative result by transc ription mediated amplification does not preclude the [facility] presence of N. gonorrhoeae infection because re sults are dependent on proper BANK and adequate collection, absence of inhibitors, and suffici ent rRNA to be detected. Specimen (Source) Anatomical Collection Method Collection Time Re ceived Time Location / / Volume Laterality Endocervical swab 03/27/2016 10:00 2015 (procedure) AM CDT 10:24 AM CDT Rashidagladys Kendricklenore Pederson APRN CANTILEVER CRANE OPERATOR LAB - MICRO GENERAL ORDER SUSHMA Performing Organization Address [facility] Code Phon e Number [id number] [place] [address] PAP IMAGED THIN LAYER SCREEN (03/27/2016 12:00 AM CDT) Component Value Ref Test Analysis Performed At [facility] gist Range Method Time Signature PAP NIL COPATH Copath Report COPATH Patient Name: LOGAN BARGER MR#: [id number] Specimen #: [id number] Collected: 03/27/2016 Received: 03/30/2016 Reported: 04/01/2016 09:33 [...] MARV Light (ASCP) Processed and screened at [facility] CLINICAL HISTORY: Intra-Uterine Device, Previous normal pap Date of Last Pap: 11/09/12, Papanicolaou Test Limitations: ??Cervical cytology is a scre ening test with limited sensitivity; regular screening is critical for cancer prevention; Pap tests are primarily effective for the diagnosis/prevention of squamous cell carcinoma, not adenoca rcinomas or other cancers. TESTING LAB LOCATION: [address] ??[address] COLLECTION SITE: Client: ??[facility] Location: [facility] (R) Specimen (Source) Anatomical Collection Method Collection Time Re ceived Time Location / / Volume Laterality Cytologic 03/27/2016 03/30/2016 1:32 material PM CDT (specimen) Rashida Pederson APRN CANTILEVER CRANE OPERATOR LAB - OPTIME CLINICAL SPE [facility] Performing Organization Address City/State/ZIP Code Phon [...] documented as of this encounter Care Teams Director Advanced Relationship Specialty Start Date End Date Rashida Pederson APRN PCP - General Nurse Practitioner 10/08/14 CANTILEVER CRANE OPERATOR [address] [place] [address] Rashida Pederson APRN PCP - Assigned PCP 10/14/14 10/18/18 CANTILEVER CRANE OPERATOR [address] [place] [address] Rashida Pederson APRN Assigned PCP 10/14/14 1 09/26/20 [facility] [address] [place], [place] [id number] documented as of this encounter
--- OUTSIDE RECORDS SUMMARY | 2022-07-16 10:46 | XMS_ITS | Encounter Summary ---
:1985 Author Organization [place] Address [address] [place] [address] Care Team Providers Name Role Phone Rashida Pederson APRN, CNP Primary Care Provider [phone] Rashida Pederson APRN ACID RETORT OPERATOR Unavailable [phone] Rashida Pederson APRN, CNP Unavailable [phone] Reason for Visit Reason Comments Recheck Medication Encounter Details Date Type Department Care Team Description 09/10/2017 Office Visit [facility] Rashida Pederson episo de of recurrent major depressive disorder (H) (Primary Dx); Clinic [place] ZIYAD Benitez CNP Anxiety; [address] [place] [address] [place] [address] [phone] Social History Tobacco Use Types Packs/Day Years [...] Comments Blood Pressure 120/82 09/10/2017 1:10 PM POWERTRAIN CALIBRATION ENGINEER Pulse 106 09/10/2017 1:10 PM POWERTRAIN CALIBRATION ENGINEER Temperature 36.9 ??C (98.4 ??F) 09/10/2017 1:10 PM POWERTRAIN CALIBRATION ENGINEER Respiratory Rate 14 09/10/2017 1:10 PM POWERTRAIN CALIBRATION ENGINEER Oxygen Saturation 96% 09/10/2017 1:10 PM POWERTRAIN CALIBRATION ENGINEER Inhaled Oxygen Concentration - - Weight 103 kg (227 lb) 09/10/2017 1:10 PM POWERTRAIN CALIBRATION ENGINEER Height 167.6 cm (5' 6) 09/10/2017 1:10 PM POWERTRAIN CALIBRATION ENGINEER Body Mass Index 36.64 09/10/2017 1:10 PM POWERTRAIN CALIBRATION ENGINEER documented in this encounter Progress Notes Rashida [...] behalf by Ramiro Curry, a trained medical lab specialist. The creation of this document is based the provider's statements to the medical lab specialist. Ramiro Curry September 10, 2017 1:20 PM [...] this document, created by the medical lab specialist for me, accurately reflects the services I personally performed and the decisions made by me. I have reviewed and approved this document for accuracy. DONNY Moore APRN [facility] RTRAIN CALIBRATION ENGINEER documented in this encounter Plan of [...] documented as of this encounter Care Teams Saw Maker Relationship Specialty Start Date End Date Rashida Pederson APRN PCP - General Nurse Practitioner 10/08/14 [facility] [address] [place] [address] Rashida Pederson APRN PCP - Assigned PCP 10/14/14 10/18/18 ACID RETORT OPERATOR [address] [place] [address] Rashida Pederson APRN Assigned PCP 10/14/14 1 09/26/20 ACID RETORT OPERATOR [address] [place] [address] documented as of this encounter
--- OUTSIDE RECORDS SUMMARY | 2022-07-16 10:46 | XMS_ITS | Encounter Summary ---
:1985 Author Organization [facility] Address [address] [place] [address] Care Team Providers Name Role Phone Rashida Pederson APRN ORNAMENTAL PLASTER STICKER Primary Care Provider [phone] BgRashida cornejo APRN ORNAMENTAL PLASTER STICKER Unavailable [phone] Bg, Rashida Benitez APRN ORNAMENTAL PLASTER STICKER Unavailable [phone] Reason for Visit Reason Comments URI Encounter Details Date Type Department Care Team Description 07/31/[address] [facility] Hailey Kearney, Acsun e bronchitis due Clinic [place] PA-C to other specified [address] [place] [id number] [place] [address] organisms (Primary [place], [place], [place] Dx) [phone] [phone] (Wo rk) Social History Tobacco Use Types [...] Comments Blood Pressure 128/87 07/31/2016 1:25 PM PASTING MACHINE OPERATOR Pulse 77 07/31/2016 1:25 PM PASTING MACHINE OPERATOR Temperature 36.8 ??C (98.3 ??F) 07/31/2016 1:25 PM PASTING MACHINE OPERATOR Respiratory Rate 16 07/31/2016 1:25 PM PASTING MACHINE OPERATOR Oxygen Saturation - - Inhaled Oxygen Concentration - - Weight 109.3 kg (241 lb) 07/31/2016 1:25 PM PASTING MACHINE OPERATOR Height - - Body Mass Index 38.9 07/25/2016 1:02 AM PASTING MACHINE OPERATOR documented in this encounter Progress Notes Hailey [...] Inhaler; Refill: 1 Hailey Kearney PA-C, [facility] ING MACHINE OPERATOR documented in this encounter Nursing Notes Ebony [...] kg).. BP completed using cuff size large-RA ING MACHINE OPERATOR documented in this encounter Plan of Treatment Not on filedocumented as of this encounter Visit Diagnoses Diagnosis Acute bronchitis due to other specified organisms - Primary documented in this encounter Additional Health Concerns Assessment Noted Time PHQ-9 Depression Total Score: 5 03/28/2016 7:13 AM CDT documented as of this encounter Care Teams Foam Rubber Fabricator Relationship Specialty Start Date End Date Rashida Pederson APRN PCP - General Nurse Practitioner 10/08/14 ORNAMENTAL PLASTER STICKER [address] [place] [address] Rashida Pederson APRN PCP - Assigned PCP 10/14/14 10/18/18 ORNAMENTAL PLASTER STICKER [address] [place] [address] Rashida Pederson APRN Assigned PCP 10/14/14 1 09/26/20 ORNAMENTAL PLASTER STICKER [address] [place] [address] documented as of this encounter
--- OUTSIDE RECORDS SUMMARY | 2022-07-16 10:46 | XMS_ITS | Encounter Summary ---
:1985 Author Organization [facility] Address [address] [place] [address] Care Team Providers Name Role Phone Rashida Pederson APRN ARMORING MACHINE OPERATOR Primary Care Provider [phone] Rashida Pederson APRN ARMORING MACHINE OPERATOR Unavailable [phone] Rashida Pederson APRN ARMORING MACHINE OPERATOR Unavailable [phone] Reason for Visit Reason Onset Date Comments Forms 10/28/2015 letter Encounter Details Date Type Department Care Team Description 10/28/2015 Telephone [facility] Rashida Pederson, Forms (letter) [place] ENGINEER RF DEPLOYMENT ARMORING MACHINE OPERATOR [address] [phone] [place] [address] (Wo rk) Social History Tobacco [...] 2:21 PM CDT Placed in mail Diana Ozuna/Cad Detailer Telephone Encounter - Inessa Bradshaw RN - 10/28/2015 1:22 PM CDT Pt calls, lost letter from 09/17, would like re-mailed to her. Printed at [facility]. Will route this to [facility] as FYI to mail, not leave up front. Thank you!! Inessa Bradshaw, ELIE documented in this encounter Plan of Treatment Not on filedocumented as of this encounter Visit Diagnoses Not on filedocumented in this encounter Additional Health Concerns Assessment Noted Time PHQ-9 Depression Total Score: 10 09/18/2015 9:10 AM CS T documented as of this encounter Care Teams Social Sciences Chair Relationship Specialty Start Date End Date Rashida Pederson APRN PCP - General Nurse Practitioner 10/08/14 ARMORING MACHINE OPERATOR [address] [place] [address] Rashida Pederson APRN PCP - Assigned PCP 10/14/14 10/18/18 ARMORING MACHINE OPERATOR [address] [place] [address] Rashida Pederson APRN Assigned PCP 10/14/14 1 09/26/20 ARMORING MACHINE OPERATOR [address] [place] [address] documented as of this encounter
--- OUTSIDE RECORDS SUMMARY | 2022-07-16 10:47 | XMS_ITS | Encounter Summary ---
:1985 Author Organization [facility] Address [address] [place] [address] Care Team Providers Name Role Phone Rashida Pederson APRN, CNP Primary Care Provider [phone] Rashida Pederson APRN ORGAN RECOVERY COORDINATOR Unavailable [phone] Rashida Pederson APRN ORGAN RECOVERY COORDINATOR Unavailable [phone] Reason for Visit Reason Onset Date Comments Recheck Medication 11/02/2014 Encounter Details Date Type Department Care Team Description 11/02/2014 Virtual Visit [facility] Rashida Pederson Panic att ack (Primary Dx); Clinic [place] ZIYAD Benitez Major depression, recurrent (H); [address] [facility] An[place], [place] [id number] [place] [phone] [place], [place] [phone] [id number] Social History Tobacco Use Types Packs/Day Years [...] up in 6 months Rashida Pederson CNP [facility] documented in this encounter Plan of Treatment Not on filedocumented as of this encounter Visit Diagnoses Diagnosis Panic attack - Primary Panic disorder without agoraphobia Major depression, recurrent (H) Major depressive disorder, recurrent epi sode, unspecified Anxiety Anxiety state, unspecified documented in this encounter Care Teams Residential Carpenter Relationship Specialty Start Date End Date Rashida Pederson APRN PCP - General Nurse Practitioner 10/08/14 ORGAN RECOVERY COORDINATOR [address] [place] [address] Rashida Pederson APRN PCP - Assigned PCP 10/14/14 10/18/18 ORGAN RECOVERY COORDINATOR [address] [place] [address] Rashida Pederson APRN Assigned PCP 10/14/14 1 09/26/20 ORGAN RECOVERY COORDINATOR [address] [place] [address] documented as of this encounter
--- OUTSIDE RECORDS SUMMARY | 2022-07-16 10:47 | XMS_ITS | Encounter Summary ---
:1985 Author Organization [facility] Address [address] [place] [address] Care Team Providers Name Role Phone Mann, Shari Primary Care Provider Encounter Details Date Type Department Care Team Description 11/02/2013 Radiant Appointment [facility] [place] [facility] jerrell IUD (intrauterine device) in place; Center Dysmenorrhea [facility] 1st Floor, Clinic [address] [place], [place] [address] Social History Tobacco Use Types [...] Dysmenorrhea documented in this encounter Care Teams Machined Parts Quality Inspector Relationship Specialty Start Date End Date Shari Mann PCP - General 07/12/12 10/07/14 documented as of this encounter
--- OUTSIDE RECORDS SUMMARY | 2022-07-16 10:47 | XMS_ITS | Encounter Summary ---
:1985 Author Organization [facility] Address [address] [place] [address] Care Team Providers Name Role Phone Shari Mann Primary Care Provider Reason for Visit Reason Onset Date Comments Onboarding 09/14/2013 Onboarding [facility] Encounter Details Date Type Department Care Team Description 09/14/2013 Telephone [facility] Unassigned, Clinic Onboarding (Onboarding [place] [facility]) [phone] Social History Tobacco Use Types Packs/Day Years [...] 2:21 PM CDT Selection of Care System: [facility] Selection of primary provider/clinic: [facility] [place] Do you have a medical condition that requires you to go to see your doctor on a routine basis?: yes If yes, what conditions do you have?: depression/anxiety Do you have any health concerns that you need assistance finding a provider or scheduling an appointment? no Medications: Mirena Lorazepram Allergies: Estrogens [facility] Pharm[facility] assigned to patient: no Current Pharmacy/location and number: Pharmacy of choice: Prescription names: Telephone Encounter - Apollo Palacios - 09/14/2013 1:29 PM CST 09/14/2013 Call Regarding Onboarding [facility] Attempt 1 Message on voicemail Comments: no dependents Outreach Learning And Development Director Apollo Xie RACKER documented in this encounter Plan of Treatment Not on filedocumented as of this encounter Visit Diagnoses Not on filedocumented in this encounter Care Teams Make Ready Worker Relationship Specialty Start Date End Date Shari Mann PCP - General 07/12/12 10/07/14 documented as of this encounter
--- OUTSIDE RECORDS SUMMARY | 2022-07-16 10:47 | XMS_ITS | Encounter Summary ---
:1985 Author Organization [facility] Address [address] [place] [address] Care Team Providers Name Role Phone Shari Mann Primary Care Provider Rashida Pederson APRN GROWTH HACKER Primary Care Provider [phone] Reason for Visit Reason Comments Establish Care Depression Anxiety Encounter Details Date Type Department Care Team Description 10/06/2014 Office Visit [facility] Rashida Pederson Anxiety (P rimary Dx); Clinic [place] ZIYAD Benitez CNP Panic attack; [address] Major depression, recurrent (H) [place] [address] [phone] Social History Tobacco Use Types Packs/Day Years [...] Comments Blood Pressure 102/64 10/06/2014 8:10 AM APPLE TURNER Pulse 62 10/06/2014 8:10 AM APPLE TURNER Temperature 36.7 ??C (98 ??F) 10/06/2014 8:10 AM APPLE TURNER Respiratory Rate 10 10/06/2014 8:10 AM APPLE TURNER Oxygen Saturation - - Inhaled Oxygen Concentration - - Weight 94.8 kg (209 lb) 10/06/2014 8:10 AM APPLE TURNER Height 163.8 cm (5' 4.5) 10/06/2014 8:10 AM APPLE TURNER Body Mass Index 35.32 10/06/2014 8:10 AM APPLE TURNER documented in this encounter Patient Instructions Patient InstructionsRashida Pederson, GROWTH HACKER - 10/06/2014 8:38 AM CST Images from [...] can help youlive a healthier life. ?? [phone] [employer]. [address] [place] [address], [place] [address]. All rights reserved. This information is not intended as a substitute for professional medical care. Always follow your healthcare professional's instructions. E TURNER documented in this encounter Progress Notes Rashida [...] father. 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 [...] weeks, sooner as needed. Rashida Pederson CNP [facility] E TURNER documented in this encounter Nursing Notes Ilda [...] using cuff size: large Ilda Phillips CMA E TURNER documented in this encounter Miscellaneous Notes Addendum Note - Ilda Phillips CMA - 10/08/2014 1:00 PM APPLE TURNER Addended by: ILDA PHILLIPS on: 10/08/2014 01:00 PM Modules accepted: Orders E TURNER documented in this encounter Plan of Treatment Not on filedocumented as of this encounter Visit Diagnoses Diagnosis Anxiety - Primary Anxiety state, unspecified Panic attack Panic disorder without agoraphobia Major depression, recurrent (H) Major depressive disorder, recurrent epi sode, unspecified documented in this encounter Care Teams Flanger Relationship Specialty Start Date End Date Shari Mann PCP - General 07/12/12 10/07/14 Rashida Pederson APRN CNP PCP - General Nurse Practitioner 10/08/14 [address] [place] [address] documented as of this encounter
--- OUTSIDE RECORDS SUMMARY | 2022-07-16 10:47 | XMS_ITS | Encounter Summary ---
:1985 Author Organization [facility] Address [address] [place] [address] Care Team Providers Name Role Phone Rashida Pederson CHEESE COOK CAPTAIN'S ASSISTANT Primary Care Provider [phone] Rashida Pederson APRN CAPTAIN'S ASSISTANT Unavailable [phone] BgRashida cornejo APRN CAPTAIN'S ASSISTANT Unavailable [phone] Reason for Visit Reason Onset Date Comments Panel Management 03/28/2015 Encounter Details Date Type Department Care Team Description 03/28/2015 Telephone [facility] Rashida Pederson, Panel Management [place] CHEESE COOK CAPTAIN'S ASSISTANT [address] [address] [phone] (Wo rk) Social History Tobacco Use Types [...] AM CDT Pt completed depression questionnaire on [facility]. Please advise, score today was higher than score on 02/07/2015. Telephone Encounter - Ilda Phillips CMA - 03/28/2015 9:11 AM CDT Panel Management Review Date of last visit with a [facility] provider: Rashida Pederson on 02/07/2015. Date of next visit with a [facility] provider: None. Problem List Patient Active Problem [...] list: Depression / Dysthymia review PHQ-9 SCORE ([facility]) 10/06/2014 02/07/2015 02/07/2015 Total Score 15 4 [...] she would like questionnaire sentto her on [employer] Questions for provider review: None Please indicate [...] unspecified documented in this encounter Care Teams Highballer Relationship Specialty Start Date End Date Rashida Pederson APRN PCP - General Nurse Practitioner 10/08/14 CAPTAIN'S ASSISTANT [address] [place] [address] Rashida Pederson APRN PCP - Assigned PCP 10/14/14 10/18/18 CAPTAIN'S ASSISTANT [address] [place] [address] Rashida Pederson APRN Assigned PCP 10/14/14 1 09/26/20 CAPTAIN'S ASSISTANT [address] [place] [address] documented as of this encounter
--- OUTSIDE RECORDS SUMMARY | 2022-07-16 10:47 | XMS_ITS | Encounter Summary ---
:1985 Author Organization [facility] Address [address] [place] [address] Care Team Providers Name Role Phone Mann, Shari Primary Care Provider Reason for Visit Reason Onset Date Comments Results 11/03/2013 Encounter Details Date Type Department Care Team Description 11/03/2013 Telephone [facility] Women's Sharron Tyler, Results Clinic [facility] [address] NO INFO AVAILABLE [facility] Professional [facility]ldg 06/04/2022 [facility] [address] [place], [place] [phone] Social History Tobacco Use [...] site documented in this encounter Care Teams Section Chief Relationship Specialty Start Date End Date Shari Mann PCP - General 07/12/12 10/07/14 documented as of this encounter
--- OUTSIDE RECORDS SUMMARY | 2022-07-16 10:47 | XMS_ITS | Encounter Summary ---
:1985 Author Organization [facility] Address [facility] [place] [address] Care Team Providers Name Role Phone Shari Mann Primary Care Provider Reason for Visit Reason Onset Date Comments Refill Request 10/16/2013 Lorazepam Encounter Details Date Type Department Care Team Description 10/16/[address] [facility] Women's Nurse, p [facility] Refill Request Clinic [place] (Lorazepam) [address] [facility] Professional Bldg [facility] [address] [place] [address] Social History Tobacco Use Types [...] her previous provider Shari Mann NP at [facility] had prescribed it for her [...] refill should [facility]. ING MACHINE OPERATOR BED Telephone Encounter - Flower Chacko RN - 10/16/2013 12:07 PM CST Message copied by FLOWER CHACKO on WedOct 16, 2013 12:07 PM ------ Message from: MAIA SUN Created: WedOct 16, 2013 11:43 AM Regarding: Pt is requesting a new Rx for Lorazepam Contact: Pt is requesting a new Rx for Lorazepam to be [facility] to [facility] in [place] [facility]. Please call pt once Rx is sent. Ok to leave a message. Thanks! Maia Campbell ING MACHINE OPERATOR BED documented in this encounter Plan of Treatment Not on filedocumented as of this encounter Visit Diagnoses Not on filedocumented in this encounter Care Teams Infant Teacher Relationship Specialty Start Date End Date Shari Mann PCP - General 07/12/12 10/07/14 documented as of this encounter
--- OUTSIDE RECORDS SUMMARY | 2022-07-16 10:47 | XMS_ITS | Encounter Summary ---
:1985 Author Organization [facility] Address [facility] [place] [address] Care Team Providers Name Role Phone Shari Mann Primary Care Provider Reason for Visit Reason Onset Date Comments Medication Request 12/06/2013 lorazapam Encounter Details Date Type Department Care Team Description 12/06/[address] [facility] Women's Nurse, p [facility] Medication Request Clinic [place] (lorazapam) [address] [facility] Professional Bldg [facility] [address] [place] [address] Social History Tobacco Use Types [...] scheduled annual exam. Prescription called into [facility] [place]. Telephone Encounter - Fatou Randhawa CNM - 12/06/2013 7:56 PM CDT Please let her know that her ANNUAL SIZE MARKER exam is due. I see that she [...] prescription for lorazepam. She works for [employer] and because of the insurance change this year, she is no longer able to see the provider that was prescribing her the lorazepam, and Fatou Randhawa stated she would take over the medication for her. She'd likea call to see if that's still possible, and where in the process her request is. You can call her [phone] before noon, and the number above after. [...] it goes to the [facility] in [place]. Pt can be reached at [phone] Thank you HTN Please DO NOT send this message and/or reply back to sender. Call Center Representatives DO NOT respond to messages. ------ documented in this encounter Plan of Treatment Not on filedocumented as of this encounter Visit Diagnoses Diagnosis Panic attacks - Primary Panic disorder without agoraphobia documented in this encounter Care Teams Business Process Analyst Relationship Specialty Start Date End Date Shari Mann PCP - General 07/12/12 10/07/14 documented as of this encounter
--- OUTSIDE RECORDS SUMMARY | 2022-07-16 10:47 | XMS_ITS | Encounter Summary ---
:1985 Author Organization [facility] Address [address] [place] [address] Care Team Providers Name Role Phone Shari Mann Primary Care Provider Reason for Visit Reason Onset Date Comments Refill Request 04/17/2014 Erroneous encounter-disregard 04/17/2014 Encounter Details Date Type Department Care Team Description 04/17/[address] [facility] Women's Nurse, [facility] Refill Request; Erroneous Clinic [place] encounter-disregard [address] [facility] [address] [place] [phone] Social History Tobacco Use Types Packs/Day [...] Primary documented in this encounter Care Teams Screwdown Operator Relationship Specialty Start Date End Date Sahri Mann PCP - General 07/12/12 10/07/14 documented as of this encounter
--- OUTSIDE RECORDS SUMMARY | 2022-07-16 10:47 | XMS_ITS | Encounter Summary ---
:1985 Author Organization [facility] Address [address] [place] [address] Care Team Providers Name Role Phone Shari Mann Primary Care Provider Reason for Visit Reason Onset Date Comments Erroneous encounter-disregard Erroneous encounter-disregard 09/11/2013 Encounter Details Date Type Department Care Team Description 09/11/2013 Orders Only [facility] Fatou Randhawa [facility] Women's Clinic S, COLLECTION DEVELOPMENT LIBRARIAN ABDOUL ENCOUNTER--SARAH MISHRA [place] (Primary Dx) [address] [place] Professional Bldg [facility] [address] [place] [address] Social History Tobacco Use Types [...] encounter was opened in error. Please disregard. EL RAISER documented in this encounter Plan of Treatment Not on filedocumented as of this encounter Visit Diagnoses Diagnosis ERRONEOUS ENCOUNTER--DISREGARD - Primary documented in this encounter Care Teams Car Dropper Relationship Specialty Start Date End Date Shari Mann PCP - General 07/12/12 10/07/14 documented as of this encounter
--- OUTSIDE RECORDS SUMMARY | 2022-07-16 10:47 | XMS_ITS | Encounter Summary ---
:1985 Author Organization [facility] Address [address] [place] [address] Care Team Providers Name Role Phone Shari Mann Primary Care Provider Bg, Rashida Benitez APRN HARNESS CUTTER Primary Care Provider [phone] BgRashida APRN HARNESS CUTTER Unavailable [phone] BgRashida cornejo APRN HARNESS CUTTER Unavailable [phone] Paty Lewis CNM Unavailable [phone] Reason for Visit Reason Onset Date Comments Refill Request 04/17/2014 Encounter Details Date Type Department Care Team Description 04/17/2014 MyC Refill [facility] Women's Lizzette Randahwa S, Refill Request Clinic [facility] CNM [address] [facility] Professional Bldg [facility] [address] [place] [phone] Social History Tobacco Use Types Packs/Day [...] - 04/17/2014 12:00 PM CDT Message from Interneer: Original authorizing provider: ABDOUL Calvillo Arnulfo would like a refill of the following medications: LORazepam (ATIVAN) 0.5 MG tablet [Fatou Randhawa CNM] Preferred pharmacy: [facility] [address] Comment: documented in this encounter Plan of Treatment Not on filedocumented as of this encounter Visit Diagnoses Diagnosis Panic attacks Panic disorder without agoraphobia documented in this encounter Care Teams Fire Pilot Relationship Specialty Start Date End Date Shari Mann PCP - General 07/12/12 10/07/14 Rashida Pederson, PCP - General Nurse Practitioner 10/08/14 SUPERVISOR MIXING HARNESS CUTTER [address] [place] [address] Rashida Pederson, PCP - Assigned PCP 10/14/14 10/18/18 SUPERVISOR MIXING HARNESS CUTTER [address] [place] [address] Rashida Pederson, Assigned PCP 10/14/14 SUPERVISOR MIXING HARNESS CUTTER [address] [place] [address] Paty Lewis Assigned OBGYN Provider 02/28/21 12/13/[address] [place] [address] documented as of this encounter
--- OUTSIDE RECORDS SUMMARY | 2022-07-16 10:47 | XMS_ITS | Encounter Summary ---
:1985 Author Organization [facility] Address [address] [place] [address] Care Team Providers Name Role Phone Shari Mann Primary Care Provider Rashida Pederson APRN ENTERPRISE ACCOUNT MANAGER Primary Care Provider [phone] BgRashida cornejo APRN ENTERPRISE ACCOUNT MANAGER Unavailable [phone] Rashida Pederson APRN ENTERPRISE ACCOUNT MANAGER Unavailable [phone] Paty Lewis [facility] Unavailable [phone] Encounter Details Date Type Department Care Team [...] on filedocumented in this encounter Care Teams Freelance Graphic Designer Relationship Specialty Start Date End Date Shari Mann PCP - General 07/12/12 10/07/14 Rashida Pederson, PCP - General Nurse Practitioner 10/08/14 INTEGRATION SOLUTION ARCHITECT ENTERPRISE ACCOUNT MANAGER [address] [place], [place] [id number] Rashida Pederson, PCP - Assigned PCP 10/14/14 10/18/18 INTEGRATION SOLUTION ARCHITECT ENTERPRISE ACCOUNT MANAGER [address] [place], [place] [id number] Rashida Pederson, Assigned PCP 10/14/14 INTEGRATION SOLUTION ARCHITECT ENTERPRISE ACCOUNT MANAGER [address] [place], [place] [phone] Paty Lewis Assigned OBGYN Provider 02/28/21 12/13/21 ABDOUL [place] [address] [place] [address] documented as of this encounter
--- OUTSIDE RECORDS SUMMARY | 2022-07-16 10:47 | XMS_ITS | Encounter Summary ---
:1985 Author Organization [facility] Address [address] [place] [address] Care Team Providers Name Role Phone Shari Mann Primary Care Provider Reason for Visit Reason Onset Date Comments Refill Request 08/21/2014 ativan Encounter Details Date Type Department Care Team Description 08/21/2014 Refill [facility] Women's Nurse, p Whs Refill Request (ativan) Clinic [address] [facility] [address] [place], [place] [phone] Social History Tobacco Use Types Packs/Day [...] medication. Change made and med called in. WARE REQUIREMENTS ENGINEER documented in this encounter Plan of Treatment Not on filedocumented as of this encounter Visit Diagnoses Diagnosis Panic attacks - Primary Panic disorder without agoraphobia documented in this encounter Care Teams Barn Manager Relationship Specialty Start Date End Date Shari Mann PCP - General 07/12/12 10/07/14 documented as of this encounter
--- OUTSIDE RECORDS SUMMARY | 2022-07-16 10:47 | XMS_ITS | Encounter Summary ---
:1985 Author Organization [place] Address [address] [place] [address] Care Team Providers Name Role Phone Mann, Shari Primary Care Provider Reason for Referral - Closed Specialty Diagnoses / Procedures Referred By Contact Refer red To Contact Diagnoses Encounter for IUD insertion Ump Whs In Women H[facility] Procedures Editorial Manager,Limited ([place]) [id number] [place] Professional Bldg [facility] [address] [place], [place] [phone] Referral ID Status Reason Start Date Expiration Date Visits Requ ested Visits Authorized [id number] Closed 08/07/2013 02/03/2014 1 1 FILLER Reason for Visit Reason Onset Date Comments Erroneous encounter-disregard 09/01/2013 Encounter Details Date Type Department Care Team Description 08/07/2013 Office Visit [facility] Coretta Rdz er for IUD insertion (Primary Dx); [facility] MD Mihaela ERRONEOUS ENCOUNTER--DISREGARD [place] [address] [place], [place] Bldg [facility] [address] [place], [place] (Work) [address] [phone] Social History Tobacco Use Types Packs/Day Years [...] encounter was opened in error. Please disregard. FILLER documented in this encounter Plan of Treatment Not on filedocumented as of this encounter Visit Diagnoses Diagnosis Encounter for IUD insertion - Primary Encounter for insertion of intrauterine contraceptive device ERRONEOUS ENCOUNTER--DISREGARD documented in this encounter Care Teams Assistant Manager Of Operations Relationship Specialty Start Date End Date Shari Mann PCP - General 07/12/12 10/07/14 documented as of this encounter
--- OUTSIDE RECORDS SUMMARY | 2022-07-16 10:47 | XMS_ITS | Encounter Summary ---
:1985 Author Organization [place] Address [address] [place] [address] Care Team Providers Name Role Phone Shari Mann Primary Care Provider Reason for Visit Reason Comments Procedure Ultrasound guided IUD insert (mirena) Encounter Details Date Type Department Care Team Description 08/07/2013 Office Visit [facility] Floyd Rdz MD [address] [address] [place] [address] Encounter for IUD [facility] Idalmis Son MD [address] [place] [address] [place] [address] insertion (Primary Manly Dx) [address] [place] [facility] Bldg [facility] [address] [place] [address] Social History Tobacco Use Types [...] Comments Blood Pressure 148/95 08/07/2013 11:35 AM INTERVENTIONAL PAIN PHYSICIAN Pulse 106 08/07/2013 11:35 AM INTERVENTIONAL PAIN PHYSICIAN Temperature - - Respiratory Rate - - Oxygen Saturation - - Inhaled Oxygen Concentration - - Weight 99.3 kg (219 lb) 08/07/2013 11:35 AM INTERVENTIONAL PAIN PHYSICIAN Height - - Body Mass Index 37.01 08/02/2013 2:51 PM INTERVENTIONAL PAIN PHYSICIAN documented in this encounter Patient Instructions Patient InstructionsHoIdalmis aguilar MD - 08/07/2013 4:00 PM INTERVENTIONAL PAIN PHYSICIAN IUD pamphlet reviewed and given to patient. RVENTIONAL PAIN PHYSICIAN documented in this encounter Progress Notes Idalmis [...] lesions, erythema or abnormal secretions. Bartholin's, Urethra, Forbes's glands are normal. Vagina: moist, pink, rugae [...] from the external os. Device Lot #: [id number] EBL: Minimal Complications: None Logan Arredondo tolerated [...] verbalized understanding of instructions. Idalmis Son MD RVENTIONAL PAIN PHYSICIAN documented in this encounter Nursing Notes 08/07/2013 [...] 4:00 PM Encounter for IUD INTRAUTERINE DEVICE INTERVENTIONAL PAIN PHYSICIAN insertion documented in this encounter Visit Diagnoses Diagnosis Encounter for IUD insertion - Primary Encounter for insertion of intrauterine contraceptive device documented in this encounter Care Teams Structural Ironworker Relationship Specialty Start Date End Date Shari Mann PCP - General 07/12/12 10/07/14 documented as of this encounter
--- OUTSIDE RECORDS SUMMARY | 2022-07-16 10:47 | XMS_ITS | Encounter Summary ---
:1985 Author Organization [place] Address [address] [place] [address] Care Team Providers Name Role Phone Rashida Pederson APRN MC KAY MACHINE OPERATOR Primary Care Provider [phone] Rashida Pederson APRN MC KAY MACHINE OPERATOR Unavailable [phone] BgRashida cornejo APRN MC KAY MACHINE OPERATOR Unavailable [phone] Reason for Visit Reason Comments Medication Problem Encounter Details Date Type Department Care Team Description 06/06/2015 [facility] Akiko Jones Medicat ion Problem [facility], [facility] [id number] [place] [address] [facility] [phone] [place] [address] Social History Tobacco Use Types Packs/Day Years [...] on filedocumented in this encounter Care Teams Clinical Care Leader Relationship Specialty Start Date End Date Rashida Pederson APRN PCP - General Nurse Practitioner 10/08/14 MC KAY MACHINE OPERATOR [address] [place] [address] Rashida Pederson APRN PCP - Assigned PCP 10/14/14 10/18/18 MC KAY MACHINE OPERATOR [address] [place] [address] Rashida Pederson APRN Assigned PCP 10/14/14 1 09/26/20 MC KAY MACHINE OPERATOR [address] [place] [address] documented as of this encounter
--- OUTSIDE RECORDS SUMMARY | 2022-07-16 10:47 | XMS_ITS | Encounter Summary ---
:1985 Author Organization [place] Address [address] [place] [address] Care Team Providers Name Role Phone Rashida Pederson APRN, CNP Primary Care Provider [phone] Rashida Pederson APRN [employer] Unavailable [phone] Rashida Pederson APRN J[employer] SOFTWARE Unavailable [phone] Reason for Visit Reason Onset Date Comments Patient Request 11/02/2014 double book med chec k 4:30 PM today Encounter Details Date Type Department Care Team Description 11/02/2014 [facility]phone [facility] (double Clinic [place] ZIYAD Benitez CNP book med check 4:[address] [place] [address] today) [place] [address] [phone] Social History Tobacco Use Types Packs/Day Years [...] 11/02/2014 1:19 PM CDT appt scheduled Diana Ozuna/Infectious Diseases Physician Telephone Encounter - Ebony De Guzman MA [...] - 11/02/2014 9:06 AM CDT Logan morin, [facility] scheduled recommended 4 week follow up with Rashida at our medical front desk specialist after clinic visit Oct 06. Pt requests double book with Rashida at 4:30 PM today. She was not aware she was NOT scheduled to see Rashida, [facility] mechanic field service made error. Please advise. Logan [phone] Jose Angel Marte RN documented in this encounter Plan of Treatment Not on filedocumented as of this encounter Visit Diagnoses Not on filedocumented in this encounter Care Teams Sas Bi Developer Relationship Specialty Start Date End Date Rashida Pederson APRN PCP - General Nurse Practitioner 10/08/14 [employer] [address] [place] [address] Rashida Pederson APRN PCP - Assigned PCP 10/14/14 10/18/18 [employer] [address] [place] [address] Rashida Pederson APRN Assigned PCP 10/14/14 1 09/26/20 [facility] [address] [place] [address] documented as of this encounter
--- OUTSIDE RECORDS SUMMARY | 2022-07-16 10:47 | XMS_ITS | Encounter Summary ---
:1985 Author Organization [place] Address [address] [place] [address] Care Team Providers Name Role Phone Shari Mann Primary Care Provider Reason for Visit Reason Comments IUD Mirena IUD check Encounter Details Date Type Department Care Team Description 09/11/2013 Office Visit [facility] [place], Mirena IUD (intrauterine device) in place (Primary Dx); [facility] Fatou Sheridan APRN Dysmenorrh ea; [place] [facility] History of pulmonary embolis m; [address] Panic attack [place] [facility] [address] [place] [address] Social History Tobacco Use Types [...] Comments Blood Pressure 130/81 09/11/2013 10:10 AM CENTER MEDICAL SPECIALIST Pulse 95 09/11/2013 10:10 AM CENTER MEDICAL SPECIALIST Temperature - - Respiratory Rate - - Oxygen Saturation - - Inhaled Oxygen Concentration - - Weight 102.3 kg (225 lb 8 oz) 09/11/2013 10:10 AM CENTER MEDICAL SPECIALIST Height 163.8 cm (5' 4.5) 09/11/2013 10:10 AM CENTER MEDICAL SPECIALIST Body Mass Index 38.11 09/11/2013 10:10 AM CENTER MEDICAL SPECIALIST documented in this encounter Patient Instructions Patient InstructionsFatou Randhawa CNM - 09/11/2013 10:20 AM CENTER MEDICAL SPECIALIST Annual exam due in 2013. Mirena IUD use reminders: Your IUD will need to be removed/replaced by 08/08/2018 CALL [phone] to report: * Bleeding heavier than normal [...] please check the following Web site : [email or web address]~/[email or web address] 31 You may contact us via My Chart or by [phone] and asking to speak with a EDGER MACHINE HELPER triage nurse. The nurse will contact me for questions she is not able to answer. Thanks for trusting our providers at [facility] with your health care needs. Fatou Randhawa, MSN, CNM ER MEDICAL SPECIALIST documented in this encounter Progress Notes Fatou [...] lesions, erythema or abnormal secretions. Bartholin's, Urethra, [place]'s glands are normal. Vagina: moist, pink, rugae [...] C and CC Fatou Randhawa, MSN, CNM ER MEDICAL SPECIALIST documented in this encounter Nursing Notes 09/11/2013 [...] agoraphobia documented in this encounter Care Teams Corporate Controller Relationship Specialty Start Date End Date Shari Mann PCP - General 07/12/12 10/07/14 documented as of this encounter
--- OUTSIDE RECORDS SUMMARY | 2022-07-16 10:47 | XMS_ITS | Encounter Summary ---
:1987 Author Organization [place] Address [address] [place] [address] Care Team Providers Name Role Phone Shari Mann Primary Care Provider Reason for Visit Reason Onset Date Comments Refill Request 09/17/2014 Encounter Details Date Type Department Care Team Description 09/17/2014 MyC Refill M [facility] Lizzette Randhawa, Refill Request Clinic [place] PRODUCE SPECIALIST CN [address] [facility] Professional Bldg [facility] [address] [place], [place] [phone] Social History Tobacco Use [...] Randhawa CNM sent at 09/21/2014 7:34 AM INFORMATION ANALYST ----- Could see Dr. Aldrich or another PCP here if my schedule does not allow b/4 my work in [place]. RMATION ANALYST Telephone Encounter - Fatou Randhawa APRN CNM - 09/21/2014 7:34 AM INFORMATION ANALYST She neeeds visit and medication review. Please assist her with locating Psych evaluation options with her insurance. Am happy to refer her. Quickest evaluation in ED is option if there is an Emergency. RMATION ANALYST Telephone Encounter - Mary Gutierrez RN - 09/18/2014 2:59 PM INFORMATION ANALYST Route to Kirti Randhawa to review. Mary Gutierrez RN RMATION ANALYST Telephone Encounter - Mary Gutierrez RN - 09/18/2014 2:59 PM INFORMATION ANALYST Message from [employer]: Original authorizing provider: ABDOUL Calvillo would like a refill of the following medications: LORazepam (ATIVAN) 0.5 MG tablet [Fatou Randhawa CNM] Preferred pharmacy: [facility] [address] [place] [address] Comment: Sharif Menchaca a patient of Kirti [...] michelle or is there another Nurse Practitioner/Physicians Club Director that someone can refer me to. Alvarez Ford RMATION ANALYST documented in this encounter Plan of Treatment Not on filedocumented as of this encounter Visit Diagnoses Diagnosis Panic attacks Panic disorder without agoraphobia documented in this encounter Care Teams Director Alliance Marketing Relationship Specialty Start Date End Date Shari Mann PCP - General 07/12/12 10/07/14 documented as of this encounter
--- OUTSIDE RECORDS SUMMARY | 2022-07-16 10:47 | XMS_ITS | Encounter Summary ---
:1985 Author Organization [place] Address [address] [place] [address] Care Team Providers Name Role Phone Rashida Pederson APRN HOSPICE ENTRANCE ATTENDANT Primary Care Provider [phone] Rashida Pederson APRN HOSPICE ENTRANCE ATTENDANT Unavailable [phone] BgRashida cornejo APRN HOSPICE ENTRANCE ATTENDANT Unavailable [phone] Reason for Visit Reason Comments Physical Encounter Details Date Type Department Care Team Description 06/06/2015 Office Visit - [facility] Akiko Jones Healt h care maintenance; [facility] History of pulmonary embolism; [facility] FAMILY Anxiety; [address] PHYSICIANS Need for immunization against influenza [place], [place] [address] [facility] [address] [address] [phone] [place], [place] [address] Social History Tobacco Use Types Packs/Day Years [...] Component Value Ref Test Analysis Performed At [facility] Method Time Signature Case Report Gynecologic Cytology Report ? Case: [id number] ? 06/20/2015 HEALTH 10:04 AM [facility] Authorizing Provider: ??Akiko Jones NP ?Ordering Provider: ? CASING SOAKER RAFFAELE AYDIN'S Ordering Location: ? [facility] ?? Collected: ? 06/06/2015 1346 ? LABORAT ORY ? Family Medicine/OB ? First Screen: ? MARV Paige (ASCP) ?? Received: ?06/07/2015 1015 ? Specimen: ?SUREPATH PAP, SCREENING, Endocervical/cervical ? Interpretation Negative for squamous intraepithelial lesion or abi gnancy 06/20/2015 [facility] 10:04 AM [facility] Result Flag Normal Normal 06/20/2015 [facility] 10:04 AM [facility] Specimen Adequacy Satisfactory for 06/20/2015 [facility] evaluation, 10:04 AM [facility] endocervical/choi [facility] sformation zone LABORATORY component present Reflex Testing Yes if Abnormal 06/20/2015 [facility] 10:04 AM [facility] High Risk? No 06/20/2015 [facility] 10:04 AM [facility] Abnormal Bleeding No 06/20/2015 [facility] 10:04 AM [facility] Patient Status NA 06/20/2015 [facility] 10:04 AM [facility] IUD-Hormone 06/20/2015 [facility] Control/Hormones 10:04 AM [facility] Previous none 06/20/2015 [facility] Abnormal? 10:04 AM [facility] Cervical normal 06/20/2015 HEALTH Appearance 10:04 AM [facility] Specimen Anatomical Collection Method Collection Time Receive d Time (Source) Location / / Volume Laterality Specimen of CERVIX UTERI 06/06/2015 1:46 PM 5 unknown material STRUCTURE / CDT 10:15 AM CD T (specimen) Unknown Narrative This result has an attachment that is no t available. Akiko AVALOS - ALEIDA MCKEON Performing Organization Address City/State/ZIP Code Phon [place] Number [place] [address] [phone] [address] [facility] documented in this encounter Visit Diagnoses Diagnosis Health care maintenance Unspecified general medical examination History of pulmonary embolism Personal history of pulmonary embolism Anxiety Anxiety state, unspecified Need for immunization against influenza Need for prophylactic vaccination and in oculation against influenza documented in this encounter Care Teams Tenderizer Tender Relationship Specialty Start Date End Date Rashida Pederson APRN PCP - General Nurse Practitioner 10/08/14 HOSPICE ENTRANCE ATTENDANT [address] [place] [address] Rashida Pederson APRN PCP - Assigned PCP 10/14/14 10/18/18 HOSPICE ENTRANCE ATTENDANT [address] [place] [address] Rashida Pederson APRN Assigned PCP 10/14/14 1 09/26/20 HOSPICE ENTRANCE ATTENDANT [address] [place] [address] documented as of this encounter
--- OUTSIDE RECORDS SUMMARY | 2022-07-16 10:47 | XMS_ITS | Encounter Summary ---
:1985 Author Organization [place] Address [address] [place] [address] Care Team Providers Name Role Phone Rashida Pederson APRN PARAOPTOMETRIC Primary Care Provider [phone] Rashida Pederson APRN PARAOPTOMETRIC Unavailable [phone] Rashida Pederson APRN PARAOPTOMETRIC Unavailable [phone] Encounter Details Date Type Department Care Team [...] on filedocumented in this encounter Care Teams Jail Guard Relationship Specialty Start Date End Date Rashida Pederson APRN PCP - General Nurse Practitioner 10/08/14 PARAOPTOMETRIC [address] [place], [place] [id number] Rashida Pederson APRN PCP - Assigned PCP 10/14/14 10/18/18 DONNY [address] [facility] [place] [address] Rashida Pederson APRN Assigned PCP 10/14/14 1 09/26/20 PARAOPTOMETRIC [address] [facility] [place] [address] documented as of this encounter
--- OUTSIDE RECORDS SUMMARY | 2022-07-16 10:47 | XMS_ITS | Encounter Summary ---
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 Encounter Details Date Type Department Care Team Description 12/18/2013 Office Visit [facility], Routine gy necological examination (Primary Dx); [facility] Fatou Sheridan APRN Mirena IUD (intrauterine device) in place; [facility] Dysmenorrhea; [address] Ovarian follicular cyst -- r ecurrent [place] [facility] Bldg [facility] [address] [place] [address] Social History Tobacco Use Types [...] through spring and during summer unless you [id number]' full body sun exposure to skin without [...] the following service providers for further information: 1.[facility] located in [address] of our office building. Call to schedule: [phone] 2. [place] [facility] via this website: www.[facility] Instrumentgastroenterology.[employer]/ Call to schedule: [phone] (option 1) 4) diabetes blood test screening if you are at risk for diabetes. Our Clinic is a HOSPITAL CLINIC which means you will get TWO bills. One will be from [facility] and the other from [employer]. For estimates on the costs of services you may call the Consumer Pricing Line at [phone] to request a good marlin estimate on your bill. Alternately, you may request a cost estimate on line at this web site: http://www.[employer].org/billing/Serviceandprocedurepricing/ Please know that our providers are working [...] prevention of sexually contacted infections. WWW.health.[facility].wy.us : [place] dept of heat, public health issues in [place], N1N1 WWW.familydoctor.org : good info from the Academy of Family Physicians documented in this encounter Progress Notes Fatou Randhawa APRN CNM - 12/18/2013 3:45 PM CDT SUBJECTIVE: Logan Arredondo is an 28 year old Female, , who requests an Annual TELEPHOTO ENGINEER Preventive Health Care Exam. 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 [...] lesions, erythema or abnormal secretions. Bartholin's, Urethra, [place]'s glands are normal. Vagina: moist, pink, rugae [...] CDT Chief Complaint Patient presents with ??? 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 documented in this encounter Plan of Treatment Not on filedocumented as of this encounter Visit Diagnoses Diagnosis Routine gynecological examination - Prim jason Mirena IUD (intrauterine device) in plac e Presence of intrauterine contraceptive d evice Dysmenorrhea Ovarian follicular cyst -- recurrent Follicular cyst of ovary documented in this encounter Care Teams Metal Room Dental Technician Relationship Specialty Start Date End Date Shari Mann PCP - General 07/12/12 10/07/14 documented as of this encounter
--- OUTSIDE RECORDS SUMMARY | 2022-07-16 10:47 | XMS_ITS | Encounter Summary ---
:1985 Author Organization [place] Address [address] [place] [address] Care Team Providers Name Role Phone Shari Mann Primary Care Provider Bg, Rashida Benitez APRN LINE STAKER Primary Care Provider [phone] BgRashida APRN LINE STAKER Unavailable [phone] BgRashida cornejo APRN LINE STAKER Unavailable [phone] Paty Lewis CNM Unavailable [phone] Reason for Visit Reason Onset Date Comments Refill Request 08/01/2014 Ativan Encounter Details Date Type Department Care Team Description 08/01/2014 MyC Refill M [facility] Fatou Randhawai ll Request [facility] SZIYAD CNM (Ativan) [place] [address] [facility] Professional Bldg [facility] [address] [place] [address] [...] encounter Miscellaneous Notes Telephone Encounter - Callie Harevy, RN - 08/02/2014 1:53 PM RENEWALS MANAGER Message from [employer]: Original authorizing provider: ABDOUL Calvillo Madhavkais would like a refill of the following medications: LORazepam (ATIVAN) 0.5 MG tablet [Fatou Randhawa CNM] Preferred pharmacy: [address] Comment: its about that time again, I have about 10 left. WALS MANAGER documented in this encounter Plan of Treatment Not on filedocumented as of this encounter Visit Diagnoses Diagnosis Panic attacks Panic disorder without agoraphobia documented in this encounter Care Teams Account Installation Specialist Relationship Specialty Start Date End Date Shari Mann PCP - General 07/12/12 10/07/14 Rashida Pederson, PCP - General Nurse Practitioner 10/08/14 CARVER HAND LINE STAKER [address] [place] [address] Rashida Pederson, PCP - Assigned PCP 10/14/14 10/18/18 CARVER HAND LINE STAKER [address] [place] [address] Rashida Pederson, Assigned PCP 10/14/14 [facility] HAND LINE STAKER [address] [place] [address] Paty Lewis Assigned OBGYN Provider 02/28/21 12/13/[address] [place] [address] documented as of this encounter
--- OUTSIDE RECORDS SUMMARY | 2022-07-16 10:47 | XMS_ITS | Encounter Summary ---
:1985 Author Organization [place] Address [address] [place] [address] Care Team Providers Name Role Phone Shari Mann Primary Care Provider BgRashida APRN DIRECTOR STARS Primary Care Provider [phone] BgRashida APRN DIRECTOR STARS Unavailable [phone] BgRashida conrejo APRN DIRECTOR STARS Unavailable [phone] Paty Lewis CNM Unavailable [phone] Reason for Visit Reason Onset Date Comments Refill Request 04/25/2014 Encounter Details Date Type Department Care Team Description 04/25/2014 [place] Refill M [facility] Women's Lizzette Randhawa S, Refill Request Clinic [facility] CN [address] [facility] Professional Bldg [facility] [address] [place] [phone] Social History Tobacco Use Types Packs/Day [...] on filedocumented in this encounter Care Teams Ferry Boat Captain Relationship Specialty Start Date End Date Shari Mann PCP - General 07/12/12 10/07/14 Rashida Pederson, PCP - General Nurse Practitioner 10/08/14 INSURANCE SALES REPRESENTATIVE DIRECTOR STARS [address] [place], [place] [id number] Rashida Pederson, PCP - Assigned PCP 10/14/14 10/18/18 INSURANCE SALES REPRESENTATIVE DIRECTOR STARS [address] [place] [address] Rashida Pederson, Assigned PCP 10/14/14 INSURANCE SALES REPRESENTATIVE DIRECTOR STARS [address] [place], [place] [id number] Paty Lewis Assigned OBGYN Provider 02/28/21 12/13/21 ABDOUL [place] [address] [id number] documented as of this encounter
--- OUTSIDE RECORDS SUMMARY | 2022-07-16 10:47 | XMS_ITS | Encounter Summary ---
:1985 Author Organization [place] Address [address] [place] [address] Care Team Providers Name Role Phone Shari Mann Primary Care Provider Reason for Visit Reason Comments Abdominal Pain Low, possibly assoicated wit h IUD Encounter Details Date Type Department Care Team Description 04/02/2014 Office Visit [facility] Tone Yessenia Pelvic pain (Primary Clinic [place] MAHOGANY Velasquez Dx) [address] [phone] [facility] [address] [place], [place] [address] Social History Tobacco Use [...] IUD placed - pt has followed with Product Promoter Sales Person and they reassured her. Pt has had [...] 231 lb (104.781 kg) Labs reviewed in [facility] Problem list, Medication list, Allergies, and Medical/Social/Surgical histories reviewed in [facility] andupdated as appropriate. Review Of [...] mentation appears normal and affect normal/bright I/P: ([id number]) Pelvic pain (primary encounter diagnosis) Comment: discussed ultrasound and removal of IUD - pt would like to f/u with Product Promoter Sales Person to discuss, reassured about normal labs today, [...] athologist Signature WBC 9.5 4.0 - 11.0 P[facility]ILION 10e9/L [facility] RBC Count 4.30 3.8 - 5.2 P[facility]ILION 10e12/L [facility] Hemoglobin 13.2 11.7 - PAVILION 15.7 g/dL [facility] Hematocrit 39.7 35.0 - PAVILION 47.0 % [facility] MCV 92 78 - 100 PAVILION fl [facility] MCH 30.7 26.5 - PAVILION 33.0 pg [facility] MCHC 33.2 31.5 - PAVILION 36.5 g/dL [facility] RDW 12.1 10.0 - PAVILION 15.0 % [facility] Platelet Count 214 150 - 450 [facility] 10e9/L [facility] Specimen Anatomical Collection Method Collection Time Receive d Time (Source) Location / / Volume Laterality Blood specimen 04/02/2014 11:59 4 (specimen) AM CDT 12:02 PM CDT Yessenia Wayne PA-C LAB - BLOOD ORDERABLES Performing Organization Address City/State/ZIP Code Phon e Number [facility] [address] [place], [place] [id number] (ABNORMAL) *UA reflex to Microscopic and Culture (04/02/2014 11:59 AM CDT) [facility] gist Method Time Signature Color Urine Yellow [facility] Appearance Urine Clear [facility] Glucose Urine Negative NEG mg/dL [facility] Bilirubin Urine Negative NEG [facility] Ketones Urine Negative NEG mg/dL [facility] Specific [place] 1.020 1.003 - PAVILION Urine 1.035 [facility] Blood Urine Negative NEG [facility] pH Urine 8.0 (H) 5.0 - 7.0 [facility]ILION pH [facility] Protein Albumin Negative NEG mg/dL [facility] Urine [facility] Urobilinogen 0.2 0.2 - 1.0 [facility] Urine EU/dL [facility] Nitrite Urine Negative NEG [facility] Leukocyte Negative NEG [facility] Esterase Urine [facility] Source Midstream [facility] Urine [facility] Specimen Anatomical Collection Method Collection Time Receive d Time (Source) Location / / Volume Laterality Urine specimen 04/02/2014 11:59 4 (specimen) AM CDT 12:02 PM CDT Yessenia Wayne PA-C LAB - URINE ORDERABLES Performing Organization Address City/[facility]/ZIP Code Phon e Number [facility] [id number] [place] [address] CHLAMYDIA TRACHOMATIS PCR (04/02/2014 11:55 AM CDT) Component Value Ref Test Analysis Performed At [facility] Range Method Time Signature Specimen Cervix [facility] Chlamydia Negative NEG [facility] Trachomatis Negative for C. trachomatis rRNA by mailroom personnel mediated amplification. MICROBIOLOGY PCR A negative result [...] Organization Address City/State/ZIP Code Phon e Number [id number] [place] [phone] [place] [address] [facility] MICROBIOLOGY NEISSERIA GONORRHOEA PCR (04/02/2014 11:55 AM CDT) Component Value Ref Test Analysis Performed At Patholo gist Range Method Time Signature Specimen Cervix [facility] N Gonorrhea Negative NEG [facility] PCR Negative [...] Phon e Number [facility] [address] [place] [address] [facility] [phone] [place] [address] [facility] MICROBIOLOGY Wet prep (04/02/2014 11:55 AM CDT) [facility] Method Time Signature Specimen Vagina [place] Description [facility] Wet Prep No Trichomonas seen [facility]ILION No clue cells seen [facility] No yeast seen [place] Micro Report FINAL [place] Status 04/02/2014 [facility] Specimen Anatomical Collection Method Collection Time Receive d Time (Source) Location / / Volume Laterality 04/02/2014 11:55 04/02/2014 AM CDT 12:00 PM CDT Yessenia Wayne PA-C LAB - MICRO GENERAL CASSY ONEAL Performing Organization Address City/[facility]/ZIP Code Phon e Number [facility] [id number] [place] [address] documented in this encounter Visit Diagnoses Diagnosis Pelvic pain - Primary Unspecified symptom associated with fema le genital organs documented in this encounter Care Teams Interlibrary Loan Specialist Relationship Specialty Start Date End Date Shari Mann PCP - General 07/12/12 10/07/14 documented as of this encounter
--- OUTSIDE RECORDS SUMMARY | 2022-07-16 10:47 | XMS_ITS | Encounter Summary ---
:1985 Author Organization [place] Address [address] [place] [address] Care Team Providers Name Role Phone Shari Mann Primary Care Provider Reason for Visit Reason Comments IUD Mirena IUD insertion Encounter Details Date Type Department Care Team Description 08/02/2013 Office Visit [facility] Sydnee, Cervical o s stenosis (Primary Dx); [facility] Fatou Sheridan APRN Encounter for IUD insertion Leck Kill CN [address] [facility] Professional Bldg [facility] [address] [place] [address] Social History Tobacco Use Types [...] Comments Blood Pressure 144/94 08/02/2013 2:51 PM FORM WORKER Pulse 92 08/02/2013 2:51 PM FORM WORKER Temperature - - Respiratory Rate - - Oxygen Saturation - - Inhaled Oxygen Concentration - - Weight 99.7 kg (219 lb 14.4 oz) 08/02/2013 2:51 PM FORM WORKER Height 163.8 cm (5' 4.5) 08/02/2013 2:51 PM FORM WORKER Body Mass Index 37.16 08/02/2013 2:51 PM FORM WORKER documented in this encounter Patient Instructions Patient InstructionsFatou Randhawa CNM - 08/03/2013 4:14 PM CST I was not able to insert your IUD today as the cervical os was too tightly closed for me to pass theIUD tank insulator rubber through it up into the uterus. Please rR/S appt for Wednesday with MD. In preparation for appt Wednesday, take the premeds as you did today. Please call if questions. For additional information re your IUD, please check the following Web site : [email or web address] You had a Mirena IUD placed [...] contact us via My Chart or by [phone] and asking to speak with a [facility]ER triage nurse. The nurse will contact me for questions she is not able to answer. Thanks for trusting our providers at [facility] with your health [...] a tampon or pad for bleeding. CALL [phone] to report: * Bleeding heavier than normal period or bleeding more than 2 days after the procedure. * An abnormal, bad smell to the drainage from your vagina * Fever greater than 100 degrees and/or chills WORKER documented in this encounter Progress Notes Fatou [...] attempt and return. Fatou Randhawa, MSN, CNM WORKER documented in this encounter Nursing Notes 08/02/2013 3:00 PM CST >> SEE ROSITA AVILA Wed Aug 02, 2013 2:52 PM Patient presents with: IUD - Mirena IUD insertion documented in this encounter Plan of Treatment Not on filedocumented as of this encounter Procedures Procedure Name Priority Date/Time Associated Diagnosis Comme nts HC INSERTION Routine 08/03/2013 4:13 PM Cervical os s tenosis INTRAUTERINE DEVICE FORM WORKER Encounter for IUD insertion documented in this encounter Visit Diagnoses Diagnosis Cervical os stenosis - Primary Stricture and stenosis of cervix Encounter for IUD insertion Encounter for insertion of intrauterine contraceptive device documented in this encounter Care Teams Beauty Parlor Cleaner Relationship Specialty Start Date End Date Shari Mann PCP - General 07/12/12 10/07/14 documented as of this encounter
--- OUTSIDE RECORDS SUMMARY | 2022-07-16 10:47 | XMS_ITS | Encounter Summary ---
:1985 Author Organization [place] Address [address] [place] [address] Care Team Providers Name Role Phone Shari Mann Primary Care Provider Reason for Visit Reason Comments Abdominal Pain Abd pain comes and goes. Pos itional. 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 Smoking [...] of ??? Cancer No family hx of Oil Sprayer Hx: Patient's last menstrual period was 10/29/2013. [...] PCR (Clinic Collect), Gonorrhea PCR, Urine Culture, Oil Sprayer,[place]ited ([place]) [address], [place] RATCHET SETTER Complete Transvaginal - 67143 (In Clinic), US Pelvic Complete with Transvaginal 625.3 Dysmenorrhea Comment: Plan: Oil Sprayer,Limited ([place]) [address], [place] RATCHET SETTER Complete Transvaginal - 83603 (In Clinic), US Pelvic Complete with Transvaginal [...] Component Value Ref Test Analysis Performed At [facility] Method Time Signature Specimen Urine [facility] [...] MICRO GENERAL ORDERA BLES Performing Organization Address City/[facility]/ZIP Code Phon e Number [address] [address] [facility] MICROBIOLOGY Chlamydia PCR (Clinic Collect) (11/02/2013 2:55 PM CDT) Component Value Ref Test Analysis Performed At [facility] Range Method Time Signature Specimen Urine [facility] Description MICROBIOLOGY Chlamydia Negative NEG [facility] Trachomatis Negative for C. trachomatis rRNA by race engine builder mediated amplification. MICROBIOLOGY PCR A negative result [...] CDT Sharron Jenkinsveda [facility] - MICRO [facility] KELLYArvin Performing Organization Address City/[facility]/ZIP Code Phon e Number [address] [address] [facility] MICROBIOLOGY (ABNORMAL) Urine Culture (11/02/2013 1:59 PM CDT) Component Value Ref Test Analysis Performed At [facility] Range Method Time Signature Specimen Unspecified Urine [...] Organization Address City/State/ZIP Code Phon e Number [id number] [place] [address] MICROBIOLOGY documented in this encounter Visit Diagnoses Diagnosis Mirena IUD (intrauterine device) in plac e - Primary Presence of intrauterine contraceptive d evice Dysmenorrhea documented in this encounter Care Teams Rug Cleaner Relationship Specialty Start Date End Date Shari Mann PCP - General 07/12/12 10/07/14 documented as of this encounter
--- OUTSIDE RECORDS SUMMARY | 2022-07-16 10:47 | XMS_ITS | Encounter Summary ---
:1985 Author Organization [place] Address [address] [place] [address] Care Team Providers Name Role Phone Rashida Pederson APRN, CNP Primary Care Provider [phone] Rashida Pederson APRN, CNP Unavailable [phone] Rashida Pederson APRN, CNP Unavailable [phone] Reason for Visit Reason Comments Depression f/u meds, depression Encounter Details Date Type Department Care Team Description 02/07/2015 Office Visit [facility] Rashida Pdeerson Major depr essive disorder, recurrent episode, mild (H) (Primary Dx); Clinic [place] ZIYAD Benitez Anxiety; [address] [facility] CARDIOVASCULAR SCREENING; LDL GOAL LESS THAN [address] [place] [address] [facility] [address] [place], [place] [phone] Social History Tobacco Use Types Packs/Day Years [...] Body Mass Index 33.46 10/06/2014 8:10 AM INTEGRITY DIRECTOR documented in this encounter Patient Instructions Patient InstructionsRashida Pederson, ZIYAD REPORTER - 02/07/2015 3:32 PM CDT Images from [...] medication may need to be avoided. ?? 1921-2918 [employer]. [address] [place] [address], [place] [address]. All rights reserved. This information is not [...] 19 - Total Score - 6 PHQ-9 Norwegian PHQ-9 Any Language GAD7 Problem list and [...] future orders placed. Rashida Pederson APRN CNP [facility] Answers for HPI/ROS submitted by the patient [...] 160 documented in this encounter Care Teams Program Director/Air Personality Relationship Specialty Start Date End Date Rashida Pederson APRN PCP - General Nurse Practitioner 10/08/14 REPORTER [address] [place] [address] Rashida Pederson APRN PCP - Assigned PCP 10/14/14 10/18/18 REPORTER [address] [place] [address] Rashida Pederson APRN Assigned PCP 10/14/14 1 09/26/20 REPORTER [address] [place] [address] documented as of this encounter
--- OUTSIDE RECORDS SUMMARY | 2022-07-16 10:47 | XMS_ITS | Encounter Summary ---
:1985 Author Organization [place] Address [facility] [place] [address] Care Team Providers Name Role Phone Shari Mann Primary Care Provider Reason for Visit Reason Onset Date Comments Refill Request 05/31/2014 Other Encounter Details Date Type Department Care Team Description 05/31/[address] [facility] Lizzette Randhawa [facility]ill [facility] Professional Bldg [facility] [address] [place] [phone] Social History Tobacco Use Types Packs/Day [...] without further refill. Preferred pharmacy: [id number] I sent My Chart reply to patient that you would take care of it. ) Lizzette Pino documented in this encounter Plan of Treatment Not on filedocumented as of this encounter Visit Diagnoses Diagnosis Panic attacks Panic disorder without agoraphobia documented in this encounter Care Teams Hydrogenation Still Operator Relationship Specialty Start Date End Date Shari Mann PCP - General 07/12/12 10/07/14 documented as of this encounter
--- OUTSIDE RECORDS SUMMARY | 2022-07-16 10:47 | XMS_ITS | Encounter Summary ---
:1985 Author Organization [place] Address [address] [place] [address] Care Team Providers Name Role Phone Rashida Pedersno APRN, CNP Primary Care Provider [phone] Rashida Pederson APRN INSURANCE AUDITOR Unavailable [phone] BgRashida cornejo APRN INSURANCE AUDITOR Unavailable [phone] Reason for Visit Reason Onset Date Comments Refill Request 05/13/2015 mary olvera Encounter Details Date Type Department Care Team Description 05/13/2015 MyC Refill [facility] Rashida Pederson Req uest ([place], [facility] ZIYAD Benitez CNP) [address] [place] [address] [phone] Social History Tobacco Use Types Packs/Day Years [...] when Rx was faxed. [facility], Rx not there. We [facility] today, verified did not receive Rx. We [...] # refills: 0 Last Office Visit with [facility] primary care provider: 02/07/15 Future Office visit: Controlled substance agreement on file: No. Processing: Fax Rx to [facility] Paula Poe RN, BSN Message handled by Nurse Triage. FUTURE APPOINTMENTS: - Follow-up visit in 6 months for physical exam, arrive fasting, future orders placed Telephone Encounter - Paula Poe RN - 05/13/2015 4:02 PM CDT Message from [employer]: Original authorizing provider: ZIYAD Moore CNP would like a refill of the following medications: LORazepam (ATIVAN) 0.5 MG tablet [Rashida Pederson APRN CNP] escitalopram (LEXAPRO) 20 MG tablet [Rashida Pederson APRN CNP] Preferred pharmacy: [address] [facility]: [facility] documented in this encounter Plan of Treatment Not on filedocumented as of this encounter Visit Diagnoses Diagnosis Major depressive disorder, recurrent epi sode, mild (H) Major depressive disorder, recurrent epi sode, mild Anxiety Anxiety state, unspecified documented in this encounter Care Teams Access Service Representative Relationship Specialty Start Date End Date Rashida Pederson APRN PCP - General Nurse Practitioner 10/08/14 INSURANCE AUDITOR [address] [place] [address] Rashida Pederson APRN PCP - Assigned PCP 10/14/14 10/18/18 INSURANCE AUDITOR [address] [place] [address] Rashida Pederson APRN Assigned PCP 10/14/14 1 09/26/20 INSURANCE AUDITOR [address] [place] [address] documented as of this encounter
--- OUTSIDE RECORDS SUMMARY | 2022-07-16 10:48 | XMS_ITS | Encounter Summary ---
:1985 [facility] Address [address] [place] [address] Home Phone Mobile Phone Email Address Email Address Preferred Language Vietnamese Marital Status Single Mu-Ism Affiliation Unknown Race White Ethnic Group Unknown Author Organization [place] Address [address] [place] [address] Care Team Providers Name Role Phone Shari Mann Primary Care Provider Reason for Visit Reason Onset Date Comments Anticoagulation 07/28/2012 Encounter Details Date Type Department Care Team Description 07/28/[address] [facility] Dmitri Zamora , Anticoagulation Anticoagulation Clin ic [facility] [address] [place], [place] [phone] [facility] [phone] [place] [address] [address] [place], [place] [phone] (Wo rk) Social History Tobacco Use Types [...] By: Cathie Hutchinson PharmD IV student/Acosta Zamora [facility] ER PATROL AGENT documented in this encounter Plan of Treatment Not on filedocumented as of this encounter Visit Diagnoses Not on filedocumented in this encounter Care Teams Preliminary School Psychologist Relationship Specialty Start Date End Date Shari Mann PCP - General 07/12/12 10/07/14 documented as of this encounter
--- OUTSIDE RECORDS SUMMARY | 2022-07-16 10:48 | XMS_ITS | Encounter Summary ---
:1985 Author Organization [place] Address [address] [place] [address] Care Team Providers Name Role Phone Shari Mann Primary Care Provider Encounter Details Date Type Department Care Team Description 10/25/2012 Orders Only [facility] Betito Vincent PA-C PE (pulmonary [address] embo lism) (H) Laboratory [address] [place] [phone] (Wo rk) Social History Tobacco Use [...] Signature INR 2.32 (H) 0.86 - 1.14 [facility] LABS Specimen Anatomical Collection Method Collection Time Receive d Time (Source) Location / / Volume Laterality Blood specimen 10/25/2012 12:44 3 (specimen) PM CDT 12:45 PM CDT Patricia Moe APRN CHILD LIFE SPECIALIST LAB - BLOOD ORDERABLES Performing Organization Address City/State/ZIP Code Phon e Number [facility] [address] LABS documented in this encounter Visit Diagnoses Diagnosis PE (pulmonary embolism) Other pulmonary embolism and infarction documented in this encounter Care Teams Integration Developer Relationship Specialty Start Date End Date Shari Mann PCP - General 07/12/12 10/07/14 documented as of this encounter
--- OUTSIDE RECORDS SUMMARY | 2022-07-16 10:48 | XMS_ITS | Encounter Summary ---
:1985 Author Organization [place] Address [address] [place] [address] Care Team Providers Name Role Phone Shari Mann Primary Care Provider Reason for Visit Reason Onset Date Comments Anticoagulation 10/25/2012 Encounter Details Date Type Department Care Team Description 10/25/2012 Telephone [facility] Saad Andres RN Anticoagulation Anticoagulation Clin [place] [phone] Social History Tobacco Use Types Packs/Day [...] on filedocumented in this encounter Care Teams Data Analytics Developer Relationship Specialty Start Date End Date Shari Mann PCP - General 07/12/12 10/07/14 documented as of this encounter
--- OUTSIDE RECORDS SUMMARY | 2022-07-16 10:48 | XMS_ITS | Encounter Summary ---
:1985 Author Organization [place] Address [address] [place] [address] Care Team Providers Name Role Phone Shari Mann Primary Care Provider Reason for Visit Reason Onset Date Comments Anticoagulation 08/03/2012 Encounter Details Date Type Department Care Team Description 08/03/2012 Telephone [facility] Isabel Dominguez, Anticoagulation Anticoagulation Clin ic RN [address] [place] [phone] Social History Tobacco Use Types Packs/Day [...] Logan Results Given By: Isabel Dominguez RN T EXPERIENCE CAPTAIN documented in this encounter Plan of Treatment Not on filedocumented as of this encounter Visit Diagnoses Not on filedocumented in this encounter Care Teams Sap Bobj Developer Relationship Specialty Start Date End Date Shari Mann PCP - General 07/12/12 10/07/14 documented as of this encounter
--- OUTSIDE RECORDS SUMMARY | 2022-07-16 10:48 | XMS_ITS | Encounter Summary ---
:1985 Author Organization [place] Address [address] [place] [address] Care Team Providers Name Role Phone Shari Mann Primary Care Provider Encounter Details Date Type Department Care Team Description 09/05/2012 Orders Only [facility] Betito Vincent PA-C PE (pulmonary [facility] [address] [facility] embo lism) (H) Laboratory [address] [place], [place] [phone] (Wo rk) Social History Tobacco Use [...] 5:30 PM PE (pulmonary Results for this CIVIL ENGINEERING DRAFTSPERSON embolism) (H) procedure are in the results section . documented in this encounter Results (ABNORMAL) INR (09/05/2012 5:30 PM CIVIL ENGINEERING DRAFTSPERSON) athologist Signature INR 1.79 (H) 0.86 - 1.14 [facility] LABS Specimen Anatomical Collection Method Collection Time Receive d Time (Source) Location / / Volume Laterality Blood specimen 09/05/2012 5:30 PM 013 5:31 (specimen) CIVIL ENGINEERING DRAFTSPERSON PM CIVIL ENGINEERING DRAFTSPERSON Patricia Moe APRN CONSTRUCTION PIT WORKER LAB - BLOOD ORDERABLES Performing Organization Address City/State/ZIP Code Phon e Number [facility] [address] LABS documented in this encounter Visit Diagnoses Diagnosis PE (pulmonary embolism) Other pulmonary embolism and infarction documented in this encounter Care Teams Sales Order Coordinator Relationship Specialty Start Date End Date Shari Mann PCP - General 07/12/12 10/07/14 documented as of this encounter
--- OUTSIDE RECORDS SUMMARY | 2022-07-16 10:48 | XMS_ITS | Encounter Summary ---
:1985 Author Organization [place] Address [address] [place] [address] Care Team Providers Name Role Phone Shari Mann Primary Care Provider Reason for Visit Reason Onset Date Comments Anticoagulation 08/10/2012 Encounter Details Date Type Department Care Team Description 08/10/2012 Telephone [facility] Saad Andres, RN Anticoagulation Anticoagulation Clin [place] [phone] Social History Tobacco Use Types Packs/Day [...] message at home number to call [facility], meds, diet, dosing or missed doses Results Given By: SAAD ANDRES RN NCE ENGINEER documented in this encounter Plan of Treatment Not on filedocumented as of this encounter Visit Diagnoses Not on filedocumented in this encounter Care Teams Clinical Support Associate Relationship Specialty Start Date End Date Shari Mann PCP - General 07/12/12 10/07/14 documented as of this encounter
--- OUTSIDE RECORDS SUMMARY | 2022-07-16 10:48 | XMS_ITS | Encounter Summary ---
:1985 Author Organization [place] Address [address] [place] [address] Care Team Providers Name Role Phone Shari Mann Primary Care Provider Reason for Visit Reason Onset Date Comments Anticoagulation 09/06/2012 Encounter Details Date Type Department Care Team Description 09/06/2012 Telephone [facility] Isabel Dominguez, Anticoagulation Anticoagulation Clin ic RN [address] [phone] Social History Tobacco Use Types Packs/Day [...] left Results Given By: Isabel Dominguez RN RACTING MANAGER documented in this encounter Plan of Treatment Not on filedocumented as of this encounter Visit Diagnoses Not on filedocumented in this encounter Care Teams Rn Med Surg Relationship Specialty Start Date End Date Shari Mann PCP - General 07/12/12 10/07/14 documented as of this encounter
--- OUTSIDE RECORDS SUMMARY | 2022-07-16 10:48 | XMS_ITS | Encounter Summary ---
:1985 Author Organization [place] Address [address] [place] [address] Care Team Providers Name Role Phone Mann, Shari Primary Care Provider Encounter Details Date Type Department Care Team Description 11/17/2012 Hospital Encounter [facility] Laborato sonu Clayton MD [address] [facility] [address] [place], [place] [address] [place], [place] [phone] (Wo rk) Social History Tobacco Use [...] on filedocumented in this encounter Care Teams Roll Clamp Operator Relationship Specialty Start Date End Date Shari Mann PCP - General 07/12/12 10/07/14 documented as of this encounter
--- OUTSIDE RECORDS SUMMARY | 2022-07-16 10:48 | XMS_ITS | Encounter Summary ---
:1985 Author Organization [place] Address [address] [place] [address] Care Team Providers Name Role Phone Shari Mann Primary Care Provider Encounter Details Date Type Department Care Team Description 07/20/2012 Orders Only [facility] Yeison Helton PE (pulmon jason [facility] MD Umer embolism) (H) Laboratory 420 [facility] [address] [place] [phone] (Wo rk) Social History Tobacco Use Types [...] 1:03 PM PE (pulmonary Results for this BODY PIERCER embolism) (H) procedure are in the results section . documented in this encounter Results (ABNORMAL) INR (10/11/2012 1:03 PM BODY PIERCER) P athologist Signature INR 2.08 (H) 0.86 - 1.14 [facility] LABS Specimen Anatomical Collection Method Collection Time Receive d Time (Source) Location / / Volume Laterality Blood specimen 10/11/2012 1:03 PM 013 1:04 (specimen) BODY PIERCER PM BODY PIERCER Patricia Moe APRN DRILLING ENGINEER LAB - BLOOD ORDERABLES Performing Organization Address City/State/ZIP Code Phon e Number [facility] [address] [place], [place] [phone] [place] [address] LABS documented in this encounter Visit Diagnoses Diagnosis PE (pulmonary embolism) Other pulmonary embolism and infarction documented in this encounter Care Teams Air Lift Operator Relationship Specialty Start Date End Date Shari Mann PCP - General 07/12/12 10/07/14 documented as of this encounter
--- OUTSIDE RECORDS SUMMARY | 2022-07-16 10:48 | XMS_ITS | Encounter Summary ---
:1985 Author Organization [place] Address [address] [place] [address] Care Team Providers Name Role Phone Shari Mann Primary Care Provider Reason for Visit Reason Onset Date Comments Anticoagulation 09/19/2012 Encounter Details Date Type Department Care Team Description 09/19/2012 Telephone [facility] Saad Andres RN Anticoagulation Anticoagulation Clin [place] [phone] Social History Tobacco Use Types Packs/Day [...] doses Results Given By: SAAD ANDRES RN D BANK TECHNICIAN documented in this encounter Plan of Treatment Not on filedocumented as of this encounter Visit Diagnoses Not on filedocumented in this encounter Care Teams Tissue Rewinder Relationship Specialty Start Date End Date Shari Mann PCP - General 07/12/12 10/07/14 documented as of this encounter
--- OUTSIDE RECORDS SUMMARY | 2022-07-16 10:48 | XMS_ITS | Encounter Summary ---
:1985 Author Organization [place] Address [address] [place] [address] Care Team Providers Name Role Phone Shari Mann Primary Care Provider Reason for Visit Reason Comments Hematology Patient with PE on anticoagu lation with Coumadin Encounter Details Date Type Department Care Team Description 10/28/2012 Office Visit [facility] Vincent Y, Jose F y of pulmonary and Clotting Disorde rs PA-C embolism (Primary Dx) 6th Floor, Clinic [address] [place] [address] [place] [address] [phone] (Work) [phone] Social History Tobacco Use Types Packs/Day Years [...] [facility] know your decision regarding continuing Coumadin [phone]). 2. Call the [facility] with and bleeding or clotting questions ([phone]). documented in this encounter Progress Notes Betito Vincent PA-C - 10/28/2012 4:26 PM CDT [facility] Outpatient Visit Note: Patient: Logan Arredondo MRN; [id number] : 1985 ADRIANA: October 28, 2012 Location: [facility] Reason: Pulmonary embolism 3 months ago. Here [...] increase chest pain. [facility] and eventually she was accompanied [...] 2 years. 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 She smokes about 1/2 a [...] of care. Betito Vincent PA-C, MPAS Physician Water Quality Technician [facility]. [facility]. [...] the anticoagulation monitoring clinic here at the [facility]. Patient verbalized understanding of the above information. [...] embolism documented in this encounter Care Teams Police Inspector Relationship Specialty Start Date End Date Shari Mann PCP - General 07/12/12 10/07/14 documented as of this encounter
--- OUTSIDE RECORDS SUMMARY | 2022-07-16 10:48 | XMS_ITS | Encounter Summary ---
:1985 Author Organization [place] Address [address] [place] [address] Care Team Providers Name Role Phone Mann, Shari Primary Care Provider Reason for Referral - Closed Specialty Diagnoses / Procedures Referred By Contact Refer red To Contact Diagnoses History of pulmonary embolism Betito Vincent PA-C [address] [facility] [address] [place], [place] [address] Referral ID Status Reason Start Date Expiration Date Visits Requ ested Visits Authorized [id number] Closed 07/22/2012 01/18/2013 1 1 UIT BOARD ASSEMBLER Reason for Visit Reason Comments Hematology Patient with recent pulmonar y embolism here for hypercoagulable work up Encounter Details Date Type Department Care Team Description 07/22/2012 Office Visit [facility] Betito Vincent Histor y of pulmonary and Clotting Disorde rs PA-C embolism (Primary Dx) 6th Floor, Clinic [address] [place] [address] [place] [facility] [address] [place] [address] [place], [place] [phone] (Work) [phone] Social History Tobacco Use Types Packs/Day Years Used Date Smoking Tobacco: Former Cigarettes 0.5 5 Quit : 07/19/2012 Smokeless Tobacco: Never Alcohol Use Standard Drinks/Week Comments Yes 0 (1 standard drink = 0.6 oz pure alcoho l) occasionally Sex Assigned at Date Recorded Not on file documented as of this encounter Progress Notes Betito Vincent PA-C - 08/29/2012 4:48 PM CST UIT BOARD ASSEMBLER Betito Vincent PA-C - 08/29/2012 4:47 PM CST UIT BOARD ASSEMBLER Betito Vincent PA-C - 07/22/2012 12:50 PM CST [facility] Outpatient Visit Note: Patient: Logan Arredondo : 1985 ADRIANA: July 22, 2012 Location: [facility] Reason: Recent bilateral pulmonary embolism. [...] She had her INR checked once at [facility] (her primary care physician) office and once here at [facility] on 07/20/2012 (which was 1.93). Her [...] 2 years. 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 She smokes about 1/2 [...] a pulmonary embolic event while hiking in [place]. ROS: Denies any shortness of breath. No [...] will have her established care with the [facility] INR monitoring clinic (Referral sent via [facility]). We recommend that she should avoid the [...] of care. Betito Vincent PA-C, MPAS Physician Plate Cleaner [facility]. [facility]. CC: Primary care physician. UIT BOARD ASSEMBLER documented in this encounter Nursing Notes 07/22/2012 [...] Orders completed and referral made to the [facility] for INR monitoring. Patient [...] embolism documented in this encounter Care Teams Endoscopic Technician Relationship Specialty Start Date End Date Shari Mann PCP - General 07/12/12 10/07/14 documented as of this encounter
--- OUTSIDE RECORDS SUMMARY | 2022-07-16 10:48 | XMS_ITS | Encounter Summary ---
:1985 Author Organization [place] Address [address] [place] [address] Care Team Providers Name Role Phone Johnathan Shari Primary Care Provider Encounter Details Date Type Department Care Team Description 08/10/2012 Orders Only [facility] Patricia Moe, PE (p ulmonary [facility] [place] AUTOMOTIVE TECHNICIAN BRANCH OPERATIONS MANAGER embolism) (H) Laboratory XXX RETIRED XXX [address] [phone] [place] [address] (Wo rk) Social History Tobacco [...] 8:44 AM PE (pulmonary Results for this PIN WORKER embolism) (H) procedure are in the results section . documented in this encounter Results (ABNORMAL) INR (08/10/2012 8:44 AM PIN WORKER) athologist Signature INR 3.01 (H) 0.86 - 1.14 [facility] LABS Specimen Anatomical Collection Method Collection Time Receive d Time (Source) Location / / Volume Laterality Blood specimen 08/10/2012 8:44 AM 012 8:45 (specimen) PIN WORKER AM PIN WORKER Patricia Moe APRN BRANCH OPERATIONS MANAGER LAB - BLOOD ORDERABLES Performing Organization Address City/State/ZIP Code Phon e Number [id number] [place] [address] LABS documented in this encounter Visit Diagnoses Diagnosis PE (pulmonary embolism) Other pulmonary embolism and infarction documented in this encounter Care Teams Heavy Equipment Service Manager Relationship Specialty Start Date End Date Shari Mann PCP - General 07/12/12 10/07/14 documented as of this encounter
--- OUTSIDE RECORDS SUMMARY | 2022-07-16 10:48 | XMS_ITS | Encounter Summary ---
:1985 Author Organization [place] Address [address] [place] [address] Care Team Providers Name Role Phone Shari Mann Primary Care Provider Encounter Details Date Type Department Care Team Description 08/23/2012 Orders Only [facility] Sunitha Yeison PE (pulmon jason [facility] MD Umer embolism) (H) Laboratory 420 [facility] [address] [place] [phone] (Wo rk) Social History Tobacco Use Types [...] 9:00 AM PE (pulmonary Results for this REGIONAL BRANCH MANAGER embolism) (H) procedure are in the results section . documented in this encounter Results (ABNORMAL) INR (08/23/2012 9:00 AM REGIONAL BRANCH MANAGER) P athologist Signature INR 2.03 (H) 0.86 - 1.14 [facility] LABS Specimen Anatomical Collection Method Collection Time Receive d Time (Source) Location / / Volume Laterality Blood specimen 08/23/2012 9:00 AM 013 9:01 (specimen) REGIONAL BRANCH MANAGER AM REGIONAL BRANCH MANAGER Patricia Moe APRN SENIOR BUSINESS BROKER LAB - BLOOD ORDERABLES Performing Organization Address City/State/ZIP Code Phon e Number [facility] [address] [place], [place] [phone] [place] [address] LABS documented in this encounter Visit Diagnoses Diagnosis PE (pulmonary embolism) Other pulmonary embolism and infarction documented in this encounter Care Teams Tank Car Reconditioner Relationship Specialty Start Date End Date Shari Mann PCP - General 07/12/12 10/07/14 documented as of this encounter
--- OUTSIDE RECORDS SUMMARY | 2022-07-16 10:48 | XMS_ITS | Encounter Summary ---
:1985 Author Organization [place] Address [address] [place] [address] Care Team Providers Name Role Phone Shari Mann Primary Care Provider Encounter Details Date Type Department Care Team Description 07/28/2012 Orders Only [facility] Jeffry Ramirez PE (pulmonary [facility] [address] embo lism) (H) Laboratory 292 [address] [facility] [place], [place] [phone] Social History Tobacco Use Types Packs/Day [...] 2:38 PM PE (pulmonary Results for this IT PROJECT MANAGER embolism) (H) procedure are in the results section . documented in this encounter Results (ABNORMAL) INR (07/28/2012 2:38 PM IT PROJECT MANAGER) P athologist Signature INR 2.16 (H) 0.86 - 1.14 [facility] LABS Specimen Anatomical Collection Method Collection Time Receive d Time (Source) Location / / Volume Laterality Blood specimen 07/28/2012 2:38 PM 012 2:39 (specimen) IT PROJECT MANAGER PM IT PROJECT MANAGER Patricia Moe APRN LASER ENGINEER LAB - BLOOD ORDERABLES Performing Organization Address City/State/ZIP Code Phon e Number [facility] [address] [place], [place] [phone] [place] [address] LABS documented in this encounter Visit Diagnoses Diagnosis PE (pulmonary embolism) Other pulmonary embolism and infarction documented in this encounter Care Teams Conveyor Operator Relationship Specialty Start Date End Date Shari Mann PCP - General 07/12/12 10/07/14 documented as of this encounter
--- OUTSIDE RECORDS SUMMARY | 2022-07-16 10:48 | XMS_ITS | Encounter Summary ---
:1985 Author Organization [place] Address [address] [place] [address] Care Team Providers Name Role Phone Shari Mann Primary Care Provider Encounter Details Date Type Department Care Team Description 08/15/2012 Orders Only [facility] Betito Vincent PA-C PE (pulmonary [facility] [address] [place] [address] [facility] embo lism) (H) Laboratory 713 [address] [place], [place] [phone] (Wo rk) Social History Tobacco Use [...] 8:43 AM PE (pulmonary Results for this B2B SALES PROFESSIONAL embolism) (H) procedure are in the results section . documented in this encounter Results (ABNORMAL) INR (08/15/2012 8:43 AM B2B SALES PROFESSIONAL) athologist Signature INR 2.38 (H) 0.86 - 1.14 [facility] LABS Specimen Anatomical Collection Method Collection Time Receive d Time (Source) Location / / Volume Laterality Blood specimen 08/15/2012 8:43 AM 012 8:44 (specimen) B2B SALES PROFESSIONAL AM B2B SALES PROFESSIONAL Patricia Moe APRN WOOD CASKET MAKER LAB - BLOOD ORDERABLES Performing Organization Address City/State/ZIP Code Phon e Number [facility] [address] LABS documented in this encounter Visit Diagnoses Diagnosis PE (pulmonary embolism) Other pulmonary embolism and infarction documented in this encounter Care Teams Meter Reading Clerk Relationship Specialty Start Date End Date Shari Mann PCP - General 07/12/12 10/07/14 documented as of this encounter
--- OUTSIDE RECORDS SUMMARY | 2022-07-16 10:48 | XMS_ITS | Encounter Summary ---
:1985 [facility] Address [address] [place] [address] Home Phone Mobile Phone Email Address Email Address Preferred Language Persian Marital Status Single Sabianism Affiliation Unknown Race White Ethnic Group Unknown Author Organization [place] Address [address] [place] [address] Care Team Providers Name Role Phone Shari Mann Primary Care Provider Reason for Visit Reason Onset Date Comments Anticoagulation 10/11/2012 Encounter Details Date Type Department Care Team Description 10/11/2012 Telephone [facility] Dmitri Zamora , Anticoagulation Anticoagulation Clin ic [facility] [address] [place], [place] [phone] [facility] [phone] [place] [address] [place] [address] (Wo rk) Social History Tobacco Use [...] Pineda, Pharm D IV / Acosta Zamora [facility] NING SUPERVISOR documented in this encounter Plan of Treatment Not on filedocumented as of this encounter Visit Diagnoses Not on filedocumented in this encounter Care Teams Quality Process Auditor Relationship Specialty Start Date End Date Shari Mann PCP - General 07/12/12 10/07/14 documented as of this encounter
--- OUTSIDE RECORDS SUMMARY | 2022-07-16 10:48 | XMS_ITS | Encounter Summary ---
:1985 Author Organization [place] Address [address] [place] [address] Care Team Providers Name Role Phone Shari Mann Primary Care Provider Encounter Details Date Type Department Care Team Description 08/02/2012 Orders Only [facility] Betito Vincent PA-C PE (pulmonary [facility] [address] [place] [address] [facility] embo lism) (H) Laboratory 713 [address] [place], [place] [phone] (Wo rk) Social History Tobacco Use [...] 5:27 PM PE (pulmonary Results for this PLASTIC TECHNICIAN embolism) (H) procedure are in the results section . documented in this encounter Results (ABNORMAL) INR (08/02/2012 5:27 PM PLASTIC TECHNICIAN) athologist Signature INR 1.68 (H) 0.86 - 1.14 [facility] LABS Specimen Anatomical Collection Method Collection Time Receive d Time (Source) Location / / Volume Laterality Blood specimen 08/02/2012 5:27 PM 012 5:28 (specimen) PLASTIC TECHNICIAN PM PLASTIC TECHNICIAN Patricia Moe APRN RIVETING MACHINE OPERATOR AUTOMATIC LAB - BLOOD ORDERABLES Performing Organization Address City/State/ZIP Code Phon e Number [facility] [address] LABS documented in this encounter Visit Diagnoses Diagnosis PE (pulmonary embolism) Other pulmonary embolism and infarction documented in this encounter Care Teams Injury Prevention Coordinator Relationship Specialty Start Date End Date Shari Mann PCP - General 07/12/12 10/07/14 documented as of this encounter
--- OUTSIDE RECORDS SUMMARY | 2022-07-16 10:48 | XMS_ITS | Encounter Summary ---
:1985 Author Organization [place] Address [facility] [place] [address] Care Team Providers Name Role Phone Shari Mann Primary Care Provider Reason for Visit Reason Onset Date Comments UTI 11/17/2012 Other Encounter Details Date Type Department Care Team Description 11/17/2012 Telephone [facility] Nurse, U Wh[facility] UTI; [place] [address] [facility] Profession al [facility] [address] [facility] [address] [phone] Social History Tobacco Use Types Packs/Day [...] and she will have it done at [facility] today. She has been experiencing pain with [...] she has a UTI. Pt works at [employer]'s [employer] so if a Urine culture is to be ordered it can be sent to the Out pt lab there. Pt stated she prefers a Monistat (sp) prescription. Please call pt at [phone] to discuss - ok to leave detailed [...] Component Value Ref Test Analysis Performed At [facility] Range Method Time Signature Specimen Midstream Urine [facility] Description [facility] Special Specimen received [facility] Requests in [...] MICRO GENERAL ORDERABL ES Performing Organization Address City/[facility]/ZIP Code Phon e Number [facility] [address] [place], [place] [phone] [place] [address] [facility] MICROBIOLOGY (ABNORMAL) Routine UA with Micro Reflex to Culture (11/17/2012 2:00 PM CDT) Component Value Ref Test Analysis Performed At [facility] gist Range Method Time Signature Color Urine Dark Brown [facility] Appearance Urine Slightly [facility] Cloudy [facility] Glucose Urine Negative NEG [facility] mg/dL [facility] Bilirubin Urine Moderate NEG [facility] This is an unconfirmed scre ening test result. A positive result may be false. (A) [facility] Ketones Urine Negative NEG [facility] mg/dL [facility] Specific [place] 1.021 1.003 - [facility] Urine 1.035 [facility] Blood Urine Negative NEG [facility] pH Urine 6.5 5.0 - [facility] 7.0 pH [facility] Protein Albumin 10 (A) NEG [facility] Urine mg/dL [facility] Urobilinogen 4.0 (H) 0.0 - [facility] mg/dL 2.0 [facility] mg/dL CAMPUS LABS Nitrite Urine Positive (A) [...] Phon e Number [facility] [address] [place] [address] [facility] LABS documented in this encounter Visit Diagnoses Diagnosis UTI (urinary tract infection) - Primary Urinary tract infection, site not specif ied documented in this encounter Care Teams Coat Check Attendant Relationship Specialty Start Date End Date Shari Mann PCP - General 07/12/12 10/07/14 documented as of this encounter
--- OUTSIDE RECORDS SUMMARY | 2022-07-16 10:48 | XMS_ITS | Encounter Summary ---
:1985 Author Organization [place] Address [address] [place] [address] Care Team Providers Name Role Phone Shari Mann Primary Care Provider Reason for Visit Reason Onset Date Comments Anticoagulation 07/25/2012 Encounter Details Date Type Department Care Team Description 07/25/2012 Telephone [facility] Tiffanie Fernandes, Anticoagulation Anticoagulation Clin [place] [phone] Social History Tobacco Use Types Packs/Day Years Used Date Smoking Tobacco: Former Cigarettes 0.5 5 Quit : 07/19/2012 Smokeless Tobacco: Never Alcohol Use Standard Drinks/Week Comments Yes 0 (1 standard drink = 0.6 oz pure alcoho l) occasionally Sex Assigned at Date Recorded Not on file documented as of this encounter Miscellaneous Notes Telephone Encounter - Tiffanie Fernandes, [facility] - 07/25/2012 2:07 PM CST Current [...] message Results Given By: Tiffanie Fernandes PHARMD Electronically signed by Tiffanie Fernandes [facility] at 07/25/2012 2:08 PM CHANNELER documented in this encounter Plan of Treatment Not on filedocumented as of this encounter Visit Diagnoses Not on filedocumented in this encounter Care Teams Tool Repair Technician Relationship Specialty Start Date End Date Shari Mann PCP - General 07/12/12 10/07/14 documented as of this encounter
--- OUTSIDE RECORDS SUMMARY | 2022-07-16 10:48 | XMS_ITS | Encounter Summary ---
:1985 [facility] Address [address] [place] [address] Home Phone Mobile Phone Email Address Email Address Preferred Language Setswana Marital Status Single Evangelical Affiliation Unknown Race White Ethnic Group Unknown Author Organization [place] Address [address] [place] [address] Care Team Providers Name Role Phone Shari Mann Primary Care Provider Encounter Details Date Type Department Care Team Description 07/25/2012 Orders Only [facility] Betito Vincent PA-C PE (pulmonary embolism) (H); [facility] [address] Hist ory of pulmonary embolism Laboratory [address] [place] [phone] (Wo rk) Social History Tobacco Use Types [...] Priority Associated Diagnoses Date/Ti me F2 prothrombin 17973C Mut Lab Routine History of pulm onary 07/25/2012 12:53 PM Anal embolism PARTS ANALYST Factor 5 leiden mutation Lab Routine History of pulmo nary 07/25/2012 12:53 PM analysis embolism PARTS ANALYST documented as of this encounter Procedures Procedure Name Priority Date/Time Associated Comments Diagnosis FACTOR 2 PROTHROMBIN Routine 07/25/2012 12:53 History of 00288C MUT ANAL PM PARTS ANALYST pulmonary embolism INR Routine 07/25/2012 12:53 PE (pulmonary Results fo r this PM PARTS ANALYST embolism) (H) procedure are in the results section. PROTEIN S ANTIGEN Routine 07/25/2012 12:53 History of Result s for this FREE PM PARTS ANALYST pulmonary embolism procedure are in the results section. PROTEIN C CHROMOGENIC Routine 07/25/2012 12:53 History of Re sults for this PM PARTS ANALYST pulmonary embolism procedure are in the results section. FACTOR 5 LEIDEN Routine 07/25/2012 12:53 History of MUTATION ANALYSIS PM PARTS ANALYST pulmonary embolism ANTITHROMBIN III Routine 07/25/2012 12:53 History of Results for this PM PARTS ANALYST pulmonary embolism procedure are in the results section. FACTOR 2 AND 5 Routine 07/25/2012 12:40 Results f or this MUTATION ANALYSIS PM PARTS ANALYST procedure are in the results section. documented in this encounter Results Antithrombin III (07/25/2012 12:53 PM PARTS ANALYST) Analysis Performed At Patho logist Time Signature Antithrombin III 90 83 - 125 % [facility] LAB[facility] Specimen Anatomical Collection Method Collection Time Receive d Time (Source) Location / / Volume Laterality Blood specimen 07/25/2012 12:53 2 (specimen) PM PARTS ANALYST 12:54 PM PARTS ANALYST Betito Vincent PA-C LAB - BLOOD ORDERABLES Performing Organization Address City/State/ZIP Code Phon e Number [facility] [address] [place], [place] [phone] [place] [address] LABS (ABNORMAL) Protein C chromogenic (07/25/2012 12:53 PM PARTS ANALYST) Analysis Performed At Patho logist Time Signature Prot C 49 (L) 70 - 130 % [facility] [employer] [facility] LABS Comment: (Note) This patient has [...] als o be helpful. Maritza Royal M.D. ??[phone] . 07/26/2012, 13:06 Specimen Anatomical Collection Method Collection Time Receive d Time (Source) Location / / Volume Laterality Blood specimen 07/25/2012 12:53 2 (specimen) PM PARTS ANALYST 12:54 PM PARTS ANALYST Betito Y Carlton VIDES LAB - BLOOD ORDERABLES Performing Organization Address City/State/ZIP Code Phon e Number [facility] [address] [place] [address] [facility] LABS (ABNORMAL) Protein S free (07/25/2012 12:53 PM PARTS ANALYST) athologist Signature Protein S Free 54 (L) 55 - 125 % [facility] LABS Comment: Analyte Specific Reagents (ASRs) are use d in many laboratory tests necessary for standard medical care and generally do not require FDA approval. ??This test was developed and its performance character istics determined by [facility]. ? ?It has [...] als o be helpful. Maritza Royal M.D. ??[phone] . 07/26/2012, 13:07 CORRECTED ON 07/26 AT 1437: PREVIOUSLY R EPORTED 54 Analyte Specific Reagents (ASRs) are used in many laboratory test s necessary for standard medical care and generally do not require FDA approv al. ??This test was developed and its performance characteristics determined by [facility]. ??It has not bee n cleared or approved by the [place] Food and Drug Administration. Specimen Anatomical Collection Method Collection Time Receive d Time (Source) Location / / Volume Laterality Blood specimen 07/25/2012 12:53 2 (specimen) PM PARTS ANALYST 12:54 PM PARTS ANALYST Betito Vincent PA-C LAB - BLOOD ORDERABLES Performing Organization Address City/[facility]/ZIP Code Phon e Number [facility] [address] LABS (ABNORMAL) INR (07/25/2012 12:53 PM PARTS ANALYST) P athologist Signature INR 2.37 (H) 0.86 - 1.14 [facility] LABS Specimen Anatomical Collection Method Collection Time Receive d Time (Source) Location / / Volume Laterality Blood specimen 07/25/2012 12:53 2 (specimen) PM PARTS ANALYST 12:54 PM PARTS ANALYST Patricia Ritikalenore Moe APRN CERTIFIED PHYSICIAN ASSISTANT LAB - BLOOD ORDERABLES Performing Organization Address City/State/ZIP Code Phon e Number [address] LABS Factor 2 and 5 mutation analysis (07/25/2012 12:40 PM PARTS ANALYST) Component Value Ref Test Analysis Performed At Patholo gist Range Method Time Signature Copath Report Patient Name: LOGAN BARGER MR#: [id number] Specimen #: [id number] Collected: 07/25/2012 12:40 Received: 07/26/2012 08:54 Reported: 07/29/2012 16:59 Ordering Phy(s): SHARI MANN TEST(S) REQUESTED: A: Factor 5 Leiden and Factor 2 by PCR B: DNA Isolation, High purity extraction SPECIMEN DESCRIPTION: Blood CLINICAL COMMENTS: History of pulmonary embolism METHODOLOGY: ?? The regions of genomic DNA containing the G1 691A Factor 5 gene mutation (Factor V Leiden) and the Factor 2(Prothrombin A12004E) gene mutation were simultaneously amplified using the polyme rase chain reaction. ??The amplified products were digested with restri ction endonuclease TaqI and products were analyzed by gel electrop horesis. RESULTS: Factor V 1691G>A (Leiden) ??RESULTS: Mutation analyzed: ? 1691G>A Factor V 1691G>A (Leiden) ??Interpretation: ?ABSENT Factor V 1691G>A (Leiden) mutation ??genotype: ?G/G FACTOR 2/PROTHROMBIN RESULTS: Mutation analyzed: ? 14121A>A Factor 2 Mutation Interpretation: ?ABSENT Factor 2 Mutation genotype: ?G/G INTERPRETATION: The patient is negative for the Factor V 1691G>A (Leiden) an d negative for the Factor 2 mutation. This test was developed and its performance determined by [facility] ??Molecular Diagnostic Laboratory. It has not [...] Schneider MD, PhD ??[facility] TESTING LAB LOCATION: [address] [address] COLLECTION SITE: Client: ??[facility] Location: ??[facility] (B) Specimen Anatomical Collection Method Collection Time Receive d Time (Source) Location / / Volume Laterality 07/25/2012 12:40 07/26/2012 8:54 PM PARTS ANALYST AM PARTS ANALYST Shari Mann LAB - GENOMICS Performing Organization Address City/State/ZIP Code Phon e Number [facility] documented in this encounter Visit Diagnoses Diagnosis PE (pulmonary embolism) Other pulmonary embolism and infarction History of pulmonary embolism Personal history of pulmonary embolism documented in this encounter Care Teams Author'S Agent Relationship Specialty Start Date End Date Shari Mann PCP - General 07/12/12 10/07/14 documented as of this encounter
--- OUTSIDE RECORDS SUMMARY | 2022-07-16 10:48 | XMS_ITS | Encounter Summary ---
:1985 Author Organization [place] Address [address] [place] [address] Care Team Providers Name Role Phone Shari [...] on filedocumented in this encounter Care Teams Commercial Cleaner Relationship Specialty Start Date End Date Shari Mann PCP - General 07/12/12 10/07/14 documented as of this encounter
--- OUTSIDE RECORDS SUMMARY | 2022-07-16 10:48 | XMS_ITS | Encounter Summary ---
:1985 Author Organization [place] Address [address] [place] [address] Care Team Providers Name Role Phone Shari Mann Primary Care Provider Encounter Details Date Type Department Care Team Description 09/19/2012 Orders Only [facility] Betito Vincent PA-C PE (pulmonary [facility] [address] [facility] embo lism) (H) Laboratory [address] [place] [phone] (Wo rk) Social History Tobacco Use [...] 1:07 PM PE (pulmonary Results for this SOLIDS CONTROL TECHNICIAN embolism) (H) procedure are in the results section . documented in this encounter Results (ABNORMAL) INR (09/19/2012 1:07 PM SOLIDS CONTROL TECHNICIAN) athologist Signature INR 2.39 (H) 0.86 - 1.14 [facility] LABS Specimen Anatomical Collection Method Collection Time Receive d Time (Source) Location / / Volume Laterality Blood specimen 09/19/2012 1:07 PM 013 1:08 (specimen) SOLIDS CONTROL TECHNICIAN PM SOLIDS CONTROL TECHNICIAN Patricia Moe APRN CREPE BOX TENDER LAB - BLOOD ORDERABLES Performing Organization Address City/State/ZIP Code Phon e Number [facility] [address] LABS documented in this encounter Visit Diagnoses Diagnosis PE (pulmonary embolism) Other pulmonary embolism and infarction documented in this encounter Care Teams Varnish Maker Relationship Specialty Start Date End Date Shari Mann PCP - General 07/12/12 10/07/14 documented as of this encounter
--- OUTSIDE RECORDS SUMMARY | 2022-07-16 10:48 | XMS_ITS | Encounter Summary ---
:1985 Author Organization [place] Address [address] [place] [address] Care Team Providers Name Role Phone Shari Mann Primary Care Provider Reason for Visit Reason Onset Date Comments Call to schedule test 10/13/2012 LM pt cannot be se en [facility] staff retreat Encounter Details Date Type Department Care Team Description 10/13/2012 Telephone [facility], Chrissy crawford Y, PAAkhilC Call to schedule test [facility] (LM pt cannot be seen 6th Floor, Clinic 6B 713 [facility] staff retreat) [place] Building [address] [place] [address] [place] [phone] Social History Tobacco Use Types [...] on filedocumented in this encounter Care Teams Security Officer Supervisor Relationship Specialty Start Date End Date Shari Mann PCP - General 07/12/12 10/07/14 documented as of this encounter
--- OUTSIDE RECORDS SUMMARY | 2022-07-16 10:48 | XMS_ITS | Encounter Summary ---
:1985 Author Organization [place] Address [address] [place] [address] Care Team Providers Name Role Phone Shari Mann Primary Care Provider Reason for Visit Reason Comments IUD IUD consult Encounter Details Date Type Department Care Team Description 07/24/2013 Office Visit [facility], Encounter for IUD insertion (Primary Dx); [facility] ZIYAD Rasheed gene ral counseling and advice for contraceptive management; [place] CN History of pulmonary embolis m; [address] Contraception--condoms [place] [facility] [address] [place] [address] Social History Tobacco Use Types [...] Comments Blood Pressure 133/78 07/24/2013 2:28 PM RIVER CAPTAIN Pulse 84 07/24/2013 2:28 PM RIVER CAPTAIN Temperature - - Respiratory Rate - - Oxygen Saturation - - Inhaled Oxygen Concentration - - Weight 100.7 kg (222 lb) 07/24/2013 2:28 PM RIVER CAPTAIN Height 163.8 cm (5' 4.5) 07/24/2013 2:28 PM RIVER CAPTAIN Body Mass Index 37.52 07/24/2013 2:28 PM RIVER CAPTAIN documented in this encounter Patient Instructions Patient InstructionsFatou Randhawa CNM - 07/24/2013 2:35 PM CST Further information on contraceptive options is available at: [email or web address] center[facility].org/all-access/cx-nmgilr-13243.htm Please call the first day of your next period to schedule either an Mirena IUD insert or a Nexplanonplacement. IF you decide on the IUD, please coal picker the misoprostol prescription and have it ready to take 2 hours before the appt time. See directions on the prescription label. Take ibuprofen 600 mg or Aleve 500 one hr before appt with light snack. Mirena IUD will need to be removed and/or replaced in 5 years. For additional information re your IUD, please check the following Web site : http://www.acog.org/~/media/For%20Patients/uie141.pdf?[email or web address] 31 I gave you detailed written information [...] using NEXPLANON. My bleeding may be irregular, sheet taker or heavier, or my bleeding may completely [...] choose to use NEXPLANON. Women's Health Specialist, [facility] -- (Name of Healthcare Provider) [...] to have her questions answered. (Signature of Supervisor Meter Shop) (Date) Manufactured by: [employer] [place], [place], a subsidiary of [employer] [place] [address], [place] Copyright ?? 2010 [employer] a subsidiary of [employer] All rights reserved. Revised: 12/2011 [id number] Thanks for trusting our providers at [facility] with your health care needs. Fatou Randhawa, MSN, CNM R CAPTAIN documented in this encounter Progress Notes Fatou [...] has had recent negative STI screen at [facility]. ASSESSMENT: 1. Encounter for IUD insertion (V25.11) misoprostol (CYTOTEC) 200 MCG tablet 2. Other general counseling and advice for contraceptive management (V25.09) 3. History of pulmonary embolism (V12.55) PLAN: BC options reviewed including use, efficacy, risks, benefits, and compliance. Further information on contraceptive options is available at: https://www.plannedparenthood.org/all-access/qb-usbswo-70951.htm Medication Rx Status Sig ??? misoprostol (CYTOTEC) [...] C and CC Fatou Randhawa, MSN, CNM R CAPTAIN documented in this encounter Nursing Notes 07/24/2013 [...] management documented in this encounter Care Teams Sales Program Coordinator Relationship Specialty Start Date End Date Shari Mann PCP - General 07/12/12 10/07/14 documented as of this encounter
--- OUTSIDE RECORDS SUMMARY | 2022-07-16 10:48 | XMS_ITS | Encounter Summary ---
:1985 Author Organization [place] Address [address] [place] [address] Care Team Providers Name Role Phone Shari Mann Primary Care Provider Reason for Visit Reason Comments Vaginal Problem Possible vaginal infection Encounter Details Date Type Department Care Team Description 12/19/2012 Office Visit [facility] [place], Yeast infe ction of [facility] Fatou Sheridan APRN the vagina ([facility] [place] [facility] Dx) [address] [facility] Professional Bldg [facility] [address] [place] [address] Social History Tobacco Use Types [...] with cheesy, white, abnormal secretions. Bartholin's, Urethra, [place]'s glands are normal. Office Wet prep: ph [...] vagina documented in this encounter Care Teams Aviation Maintenance Instructor Relationship Specialty Start Date End Date Shari Mann PCP - General 07/12/12 10/07/14 documented as of this encounter
--- OUTSIDE RECORDS SUMMARY | 2022-07-16 10:48 | XMS_ITS | Encounter Summary ---
:1985 Author Organization [place] Address [address] [place] [address] Care Team Providers Name Role Phone Shari Mann Primary Care Provider Reason for Visit Reason Onset Date Comments Anticoagulation 07/22/2012 Encounter Details Date Type Department Care Team Description 07/22/2012 Telephone [facility] Isabel Dominguez, Anticoagulation Anticoagulation Clin ic RN [address] [place] [phone] Social History Tobacco Use Types Packs/Day [...] number Results Given By: Isabel Dominguez RN TERY VAULT INSTALLER documented in this encounter Plan of Treatment Not on filedocumented as of this encounter Visit Diagnoses Not on filedocumented in this encounter Care Teams Dowel Sticker Operator Relationship Specialty Start Date End Date Shari Mann PCP - General 07/12/12 10/07/14 documented as of this encounter
--- OUTSIDE RECORDS SUMMARY | 2022-07-16 10:48 | XMS_ITS | Encounter Summary ---
:1985 Author Organization [place] Address [address] [place] [address] Care Team Providers Name Role Phone Shari Mann Primary Care Provider Reason for Visit Reason Onset Date Comments Anticoagulation 08/23/2012 Encounter Details Date Type Department Care Team Description 08/23/2012 Telephone [facility] Saad Andres, RN Anticoagulation Anticoagulation Clin [place] [phone] Social History Tobacco Use Types Packs/Day [...] doses Results Given By: SAAD ANDRES RN MANAGEMENT AIDE documented in this encounter Plan of Treatment Not on filedocumented as of this encounter Visit Diagnoses Not on filedocumented in this encounter Care Teams Bilingual Patient Support Caseworker Relationship Specialty Start Date End Date Shari Mann PCP - General 07/12/12 10/07/14 documented as of this encounter
--- OUTSIDE RECORDS SUMMARY | 2022-07-16 10:48 | XMS_ITS | Encounter Summary ---
:1985 Author Organization [place] Address [facility] [place] [address] Care Team Providers Name Role Phone Shari Mann Primary Care Provider Reason for Visit Reason Onset Date Comments Patient Request 12/16/2012 BV med Encounter Details Date Type Department Care Team Description 12/16/2012 Telephone [facility] Clinic [address] Professional Bldg [facility] [address],[facility] [address] [place] [address] Social History Tobacco Use Types [...] CDT Preferred pharmacy is OP pharmacy at [facility]. Telephone Encounter - Fallon Ramon RN - [...] on filedocumented in this encounter Care Teams Grain Oilseed Or Pasture Grower Relationship Specialty Start Date End Date Shari Mann PCP - General 07/12/12 10/07/14 documented as of this encounter
--- OUTSIDE RECORDS SUMMARY | 2022-07-16 10:48 | XMS_ITS | Encounter Summary ---
:1985 Author Organization [place] Address [address] [place] [address] Care Team Providers Name Role Phone Shari Mann Primary Care Provider Reason for Visit Reason Comments Physical Pap due, GC/Clam, wet prep Encounter Details Date Type Department Care Team Description 11/09/2012 Office Visit [facility] [place] Gynecologi c exam normal (Primary Dx); [facility] Fatou Sheridan APRN BV (bacter ial vaginosis); [facility] Routine screening for STI (s exually transmitted infection) [address] [facility] Professional Bldg [facility] [address] [place] [address] Social History Tobacco Use Types [...] net ball. Pat dry or use a dental chairside assistant on a cool setting to dry the [...] you are going. Small amounts of Extra [place] olive oil, vegetable oil, zinc oxide ointment [...] further irritates vulvar skin. Do NOT use acwt-pvw-citerrs creams or ointments until you ask your [...] amount of pure vegetable oil or Extra [place] oil to your vulva with the tips of your fingers. Manor oil or coconut oil may also be used UNLESS YOU experience irritation. These oils contain no chemicals to irritate vulvar/vaginal skin. These oils will rinse away with water and will not increase your chances of infection. Izik-abq-vafjnbo, water-based lubricants tend to dry out before [...] through spring and during summer unless you gjuv66-51' full body sun exposure to skin without [...] treatment and prevention of sexually contacted infections. WWW.health.state.fl.us : [place] dept of heat, public health issues in [place], N1N1 WWW.familydoctor.org : good info from the Academy of Family Physicians documented in this encounter Progress Notes Fatou Randhawa CNM - 11/09/2012 8:15 AM CDT SUBJECTIVE: Padma Arredondo is an 27 year old Female, , who requests an Annual DECOMMISSIONING WELL SITE MANAGER Preventive Health Care Exam. Referred by Dr. Aldrich. Dreams of becoming a Binder Lockstitch and opening a clinic with her sister! Concerns today include: 1) Intermittent chronic yeast infections x 2 years; symptoms partially relieved with OTC Monistat; current symptoms include itchiness and odorous discharge, and, 2) requesting STD screening. Patient's last menstrual period was 10/30/2012. Cycles Q 35-38 days (pt uncertain of exact timeframe) for 3-4 days. Current method of contraception is abstinence Last pap at [facility] in [place] in 2000 was negative; no abnormal pap [...] Boateng Of Lemuel Works with Elinor at [facility] Social History Main Topics ??? Smoking [...] secretions with pubic hair shaven. Bartholin's, Urethra, [place]'s normal. Vagina: moist, pink, rugae with creamy, [...] Preventive Care Exam 1. Gynecologic exam normal ([id number]) Wet Prep POCT 2. BV (bacterial vaginosis) [...] agreement with visit plan. With patient consent, DNP/PARK MAINTENANCE TECHNICIAN student,Cherelle Kay, RN MSN, conducted visit with [...] Component Value Ref Test Analysis Performed At [facility] Method Time Signature Specimen Cervical [facility] LAB N Gonorrhea Negative for N. gonorrhoeae rRNA by artificial inseminator mediated amplification. [facility] PCR A negative result by transc ription mediated amplification does not preclude the [place] presence of N. gonorrhoeae infection because re [...] MICRO GENERAL ORDER SUSHMA Performing Organization Address City/[facility]/ZIP Code Phon e Number [address] LAB [facility] LABS Chlamydia PCR (11/09/2012 9:00 AM CDT) Component Value Ref Test Analysis Performed At [facility] Method Time Signature Specimen Cervical [facility] Chlamydia Negative for C. trachomatis rRNA by artificial inseminator mediated amplification. [facility] Trachomatis A negative result by transc ription mediated amplification does not preclude the [place] PCR presence of C. trachomatis infection because [...] MICRO GENERAL ORDER SUSHMA Performing Organization Address City/[facility] Code Phon e Number [address] LAB [facility] LABS PAP imaged thin layer, diagnostic (11/09/2012 12:00 AM CDT) Component Value Ref Test Analysis Performed At [facility] Method Time Signature PAP NIL COPATH Copath Report COPATH Patient Name: PADMA BARGER MR#: [id number] Specimen #: [id number] Collected: 11/09/2012 Received: 11/10/2012 Reported: 11/11/2012 14:09 [...] MARV Mahoney (ASCP) Processed and screened at [facility] CLINICAL HISTORY: LMP: 10/30/2012 Papanicolaou Test Limitations: ??Cervical cytology is a scre ening test with limited sensitivity; regular screening is critical for cancer prevention; Pap tests are primarily effective for the diagnosis/prevention of squamous cell carcinoma, not adenoca rcinomas or other cancers. TESTING LAB LOCATION: [address] ??[address] COLLECTION SITE: Client: ??[facility] Location: EBONI (David) Specimen (Source) Anatomical Collection Method Collection Time Re ceived Time Location / / Volume Laterality Cytologic 11/09/2012 11/10/2012 12:4 5 material PM CDT (specimen) Fatou Randhawa GOVERNMENT AFFAIRS DIRECTOR CNM LAB - [facility] CLINICAL SPE [facility] Performing Organization Address City/State/ZIP Code Phon e Number COPATH documented in this encounter Visit Diagnoses Diagnosis Gynecologic exam normal - Primary Reserved for inherently not codable conc epts WITHOUT codable children BV (bacterial vaginosis) Vaginitis and vulvovaginitis, unspecifie d Routine screening for STI (sexually choi smitted infection) Screening examination for venereal disea se documented in this encounter Care Teams Clerical Dentist Assistant Relationship Specialty Start Date End Date Shari Mann PCP - General 07/12/12 10/07/14 documented as of this encounter
--- OUTSIDE RECORDS SUMMARY | 2022-07-16 10:48 | XMS_ITS | Encounter Summary ---
:1985 Author Organization [facility] Address [address] [place] [id number] Care Team Providers Name Role Phone Shari Mann Primary Care Provider Reason for Visit Reason Onset Date Comments Anticoagulation 08/15/2012 Encounter Details Date Type Department Care Team Description 08/15/[address] [facility] Tiffanie Fernandes, Anticoagulation Anticoagulation Clin ic [place] [phone] Social History Tobacco Use Types Packs/Day Years Used Date Smoking Tobacco: Former Cigarettes 0.5 5 Quit : 07/19/2012 Smokeless Tobacco: Never Alcohol Use Standard Drinks/Week Comments Yes 0 (1 standard drink = 0.6 oz pure alcoho l) occasionally Sex Assigned at Date Recorded Not on file documented as of this encounter Miscellaneous Notes Telephone Encounter - Tiffanie Fernandes, [facility] - 08/15/2012 9:16 AM CST Current Warfarin [...] message Results Given By: Tiffanie Fernandes PHARMD NT REPORTING ASSOCIATE documented in this encounter Plan of Treatment Not on filedocumented as of this encounter Visit Diagnoses Not on filedocumented in this encounter Care Teams Manager Review Relationship Specialty Start Date End Date Shari Mann PCP - General 07/12/12 10/07/14 documented as of this encounter
--- OUTSIDE RECORDS SUMMARY | 2022-07-16 10:49 | XMS_ITS | Encounter Summary ---
:1985 Author Organization [facility] Address [address] [place] [address] Care Team Providers Name Role Phone Shari Mann Primary Care Provider Reason for Referral Specialty Diagnoses / Procedures Referred By Contact Refer red To Contact [facility] [address] [place] [address] [phone] Referral ID Status Reason Start Date Expiration Date Visits Requ ested Visits Authorized BASE ADMINISTRATOR Reason for Visit Reason Comments Chest Pain Shortness of Breath Auth/Cert - Closed Specialty Diagnoses / Procedures Referred By Contact Refer red To Contact Med Surg Diagnoses Pulmonary infarction (H) Pulmonary embolism (H) 07521PT (pulmonary embolism)[id number] [address] [place] [address] Phone: Referral ID Status Reason Start Date Expiration Date Visits Requ ested Visits Authorized [id number] Closed 07/13/2012 01/09/2013 1 1 Encounter Details Date Type Department Care Team Description 07/12/2012 - Hospital Encounter [facility] Mak Roach MD [address] [place] [address] Pulmonary embolism (H) (Primary Dx); 07/14/2012 [facility] [address] Milo Sanchez MD [facility] [address] [facility] [address] [place] [address] [phone] Pulmonary infarction (H); Lashaun Bush MD 2019 [facility] [address] [place] [phone] PE (pulmonary embolism) (H); [facility] [address] [place] [address] Chest pain; [place] [address] Tila Carr MD XXX RESIGNED XXX [address] [place], [place] [id number] Constipation; [phone] GERD (gastroeso phageal reflux disease) Social History [...] Comments Blood Pressure 116/69 07/14/2012 2:30 PM DATA BASE ADMINISTRATOR Pulse 92 07/14/2012 2:30 PM DATA BASE ADMINISTRATOR Temperature 37.2 ??C (98.9 ??F) 07/14/2012 2:30 PM DATA BASE ADMINISTRATOR Respiratory Rate 16 07/14/2012 2:30 PM DATA BASE ADMINISTRATOR Oxygen Saturation 94% 07/14/2012 2:30 PM DATA BASE ADMINISTRATOR Inhaled Oxygen Concentration - - Weight 101.1 kg (222 lb 14.4 oz) 07/14/2012 4:16 PM DATA BASE ADMINISTRATOR Height 165.1 cm (5' 5) 07/13/2012 12:34 AM DATA BASE ADMINISTRATOR Body Mass Index 37.09 07/13/2012 12:34 AM DATA BASE ADMINISTRATOR documented in this encounter Discharge Summaries Tila Carr MD - 07/14/2012 5:12 PM CST [facility] Discharge Summary Padma Arredondo Age: [age] year old Date of : 1985 Date of Admission: 07/12/2012 Date of Discharge: 07/14/2012 Admitting Physician: Milo Nelson MD Discharge Physician: Tila Carr MD Contact: Discharging Service: [facility] Primary Provider: Shari Mann [address] [address] Discharge Disposition: Discharged to home Condition on Discharge: Discharge condition: Stable Code status on discharge: Full Code Admission Diagnoses: Pulmonary infarction [415.19] Pulmonary embolism [415.19] 63085GD (pulmonary embolism)[id number] Pulmonary embolism and infarction [415.19] Principle Discharge [...] please do not hesitate to contact the [facility] team via the hospital morrow on which we are stationed. Macho Holland [facility], [facility] - [phone] Attestation: This patient has been seen and evaluated by me, Tila Carr MD. Seen and discussed with theresident Dr Holland and the care team. I agree with the findings and plan in this note. I have reviewed today's vital signs, medications,imaging and labs. Code for today's visit :89590 Inpatient discharge code <30 minutes Tila Carr MD MD [facility] BASE ADMINISTRATOR documented in this encounter Medications at Time [...] Nelson MD - 2012 10:03 AM CST BASE ADMINISTRATOR Tila Carr MD - 07/14/2012 2:39 PM CST [facility] - Inpatient daily progress note Date of admission: 07/12/2012 Date of service: July 14, 2012 9:11 AM Interval History: Patient feels improved. She reports that her chest pain and sob are greatly improved. She is tolerating orals. denies sob,leg pain, or dizziness. She wishes to go home devendar. 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 ## Bilateral PE: Pt had dyspnea [...] : Pending clinical improvement. Macho Holland MD [facility]--PGY2 [phone] Attestation: This patient has been seen and evaluated by me, Tila Carr MD. Seen and discussed with theresident Dr Holland and the care team. I agree with the findings and plan in this note. I have reviewed today's vital signs, medications,imaging and labs. 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 AVSS. On heparin drip at 1700-units per hr. Plan is to dc heparin drip at 1600. She is on BID Lovenox 100mg SQ. Reported off to incoming nurse. BASE ADMINISTRATOR Peter Hernandez RN - 07/13/2012 2:51 PM [...] and lovenox teaching. Notify Mf ofany changes. 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 ## Bilateral PE: Pt had dyspnea [...] : Pending clinical improvement. Macho Holland MD [facility]--PGY2 [phone] Attestation: This patient has been seen and evaluated by me, April Sam MD. Seen and discussed with the resident Dr Holland and the care team. I agree with the findings and plan in this note. I have reviewed today's vital signs, medications,labs. Code for today's visit :21294 Inpatient Subsequent Moderate complexity/severity April Sam MD MD [facility] BASE ADMINISTRATOR April Villagomez RN - 07/13/2012 1:22 AM CST Pt. Arrived to via bed from the ED with SOB and left shoulder pain. Pt ambulated independently tobed. Pt complains of left shoulder sharp/constant pain and lower back pain. 0.4mg Dilaudid PRN given. Pt. on RA sating >92%. A&Ox4. Tachycardic 100-110. Pt. Oriented to room and call light. BASE ADMINISTRATOR documented in this encounter H&P Notes Lashaun Newberry MD - 07/13/2012 1:10 AM CST Images from the original note were not included. 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 Pleuritic in character, 04/25 last night, now 610. Worsened by deep inspiration. No relieving factors. Had SOB, Dizziness. She also coughed up small amount of blood yesterday.Pt thought might have been a Panic attack. Was escorted from [facility] this evening to ER. Has nausea, No [...] significant other. 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 Patient Active Problem List Diagnoses ??? [...] in AM. Karel Tran PGY-2 Family Medicine [facility], [facility] Pager : [phone] Attestation: This patient has been seen and evaluated by me, Lashaun Newberry. Seen and discussed with the resident Dr Tran and the care team. I agree with the findings and plan in this note. Note: seen on 07/12/2012ut note signed 07/13/2012. I have reviewed today's vital signs, medications,labs. My edits in blue. Code for today's visit :84596 Inpatient admission High complexity/severity Lashaun Newberry MD [facility] [phone] BASE ADMINISTRATOR documented in this encounter Consult Notes Jeramy [...] her significant other. 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 FAMILY HISTORY: [...] nontender, non distended, BS+ EXTREMITIES: No edema DIRECTOR OF STUDENT SERVICES:AAOx3 LABORATORY DATA CBC RESULTS: Recent Labs Lab [...] to make an appt). Yeison Helton MD cosmetic counselor Division of Hematology, Oncology, and Transplantation Director, [facility] MT: CD Name: PADMA BARGER Account: [id number] : 1985 Consult Date: 07/13/2012 Document: [id number] BASE ADMINISTRATOR documented in this encounter ED Notes Suman Hill RN - 07/12/2012 10:45 PM CST MD at bedside. BASE ADMINISTRATOR Suman Hill RN - 07/12/2012 10:16 PM CST Attempted to call report. BASE ADMINISTRATOR Mak Roach MD - 07/12/2012 6:27 PM [...] and Surgical History, and Social History inthe [employer] system. Review of Systems Constitutional: Negative for [...] sinus rhythm Rate: Tachycardic rate of 106 [place]: NORMAL Ectopy: none Conduction: normal ST Segments/ T Waves: No ST-T wave changes Q Waves: none Comparison to prior: No old EKG available Clinical Impression: sinus tachycardia. Critical Care time: 45 min [facility] Diagnoses: None Labs Ordered and Resulted from [...] inpatient bed. Case discussed with the admitting sewage plant operator. She is hemodynamically stable. Critical Care time was 45 minutes for this patient excluding procedures. I have reviewed the nursing notes. I have reviewed the findings, diagnosis, plan and need for follow up with the patient. New Prescriptions No medications on file Final diagnoses: Pulmonary embolism Pulmonary infarction Pulmonary emboli. 07/12/2012 [facility], [employer], EMERGENCY DEPARTMENT Mak Roach MD 07/12/12 6189 BASE ADMINISTRATOR Paula Church RN - 07/12/2012 6:01 PM CST Pt in for complaints of chest pain and SOB starting last noc. Pt reports pain in the left upper chest and shoulder and new pain in the left lower back. Pt reports recent hx of family stressors and reports she has taken an ativan at home with no relief in sx. BASE ADMINISTRATOR documented in this encounter Miscellaneous Notes Plan of Care - Ethel Amezcua RN - 07/15/2012 12:04 AM CST Problem: IP GENERAL POC-ADULT,OB,BEHAVIORAL FVCPM Goal: Individualization/Patient-Specific Goal (Adult,OB,Behavioral The patient and/or their medical field representative will achieve their patient-specific goals related [...] with her family from home around 1900. BASE ADMINISTRATOR Plan of Care - April Ramirez, PT - 07/14/2012 5:42 PM CST Problem: General Rehab Plan of Care Goal: Physical Therapy Goals The patient and/or their medical field representative will achieve their patient-specific goals related [...] goals. Recommendation(s): No further therapy is recommended. BASE ADMINISTRATOR Plan of Care - Meghna Cao RN - 07/14/2012 1:32 PM CST Problem: IP GENERAL POC-ADULT,OB,BEHAVIORAL FVCPM Goal: Individualization/Patient-Specific Goal (Adult,OB,Behavioral The patient and/or their medical field representative will achieve their patient-specific goals related [...] lower limb ultrasound. Possible discharge later today. BASE ADMINISTRATOR Plan of Care - Angela Arroyo RN - 07/14/2012 6:31 AM CST Problem: IP GENERAL POC-ADULT,OB,BEHAVIORAL FVCPM Goal: Individualization/Patient-Specific Goal (Adult,OB,Behavioral The patient and/or their medical field representative will achieve their patient-specific goals related [...] Angela Arroyo 6:30 AM July 14, 2012 BASE ADMINISTRATOR Plan of Care - Ethel Amezcua RN - 07/13/2012 11:20 PM CST Problem: IP GENERAL POC-ADULT,OB,BEHAVIORAL FVCPM Goal: Individualization/Patient-Specific Goal (Adult,OB,Behavioral The patient and/or their medical field representative will achieve their patient-specific goals related [...] came to at the change of shift [id number]. Vitals are stable. Is up ad mj in her room. Received 7.5 of coumadin A. Continues with pain P. Continue to monitor and continue plan of care BASE ADMINISTRATOR Plan of Care - Pablo Cantor, PT - 07/13/2012 8:38 AM CST Problem: General Rehab Plan of Care Goal: Physical Therapy Goals The patient and/or their medical field representative will achieve their patient-specific goals related to the plan of care. The patient-specific goals include: PT 6B: Patient cancel. Patient has PE and has not been on Heparin drip for 24 hours yet therefore inappropriate until time period has elapsed. BASE ADMINISTRATOR Plan of Care - April Villagomez RN - 07/13/2012 7:11 AM CST Problem: IP GENERAL POC-ADULT,OB,BEHAVIORAL FVCPM Goal: Individualization/Patient-Specific Goal (Adult,OB,Behavioral The patient and/or their medical field representative will achieve their patient-specific goals related [...] 1130. Warfarin ordered and given at 0600. BASE ADMINISTRATOR Pharmacy-Anticoagulation Service - Umer Marin [facility] - 07/13/2012 5:20 AM CST Clinical Pharmacy- [...] procedure or if the INR goals change. BASE ADMINISTRATOR Pharmacy-Admission Medication History - Pili Grant RPH - 07/12/2012 9:29 PM CST Admission medication history interview status for the 07/12/2012 admission is complete. See [facility] admission navigator for allergy information, prior to admission medications and immunization status. Medication history interview source(s):Patient Medication history resources (including written lists, pill bottles, clinic record):None Medication history source reliability:Good Primary pharmacy: [facility] Pneumococcal and influenza vaccine history documented: yes Changes made to SENIOR SALES OPERATIONS MANAGER medication list: Added: none Deleted: none [...] by mouth every 8 hours as needed. BASE ADMINISTRATOR documented in this encounter Plan of Treatment Pending Results Name Type Priority Associated Diagnoses Date/Ti me INR AND PTT PANEL Lab Routine 07/12/2012 7:23 PM DATA BASE ADMINISTRATOR Scheduled Referrals Name Type Priority Associated Diagnoses Order S [facility] INR Clinic Referral Referral Routine Pulmonary em bolism (H) Ordered: 07/14/2012 Pulmonary infarction (H) documented as of this encounter Procedures Procedure Name Priority Date/Time Associated Comments Diagnosis US LOWER EXTREMITY Routine 07/14/2012 1:27 PM Res ults for this VENOUS DUPLEX BILATERAL DATA BASE ADMINISTRATOR proc edure are in the results section. CBC WITH PLATELETS & Routine 07/14/2012 6:06 AM R esults for this DIFFERENTIAL DATA BASE ADMINISTRATOR procedure are i n the results section. INR Routine 07/14/2012 6:06 AM Results f or this DATA BASE ADMINISTRATOR procedure are i n the results section. HEPARIN 10A LEVEL Routine 07/14/2012 6:06 AM Resu lts for this DATA BASE ADMINISTRATOR procedure are i n the results section. BASIC METABOLIC PANEL Routine 07/14/2012 6:06 AM Results for this DATA BASE ADMINISTRATOR procedure are i n the results section. GLUCOSE BY METER Routine 07/13/2012 5:38 PM Resul ts for this DATA BASE ADMINISTRATOR procedure are i n the results section. HEPARIN 10A LEVEL Timed 07/13/2012 1:28 PM Resu lts for this DATA BASE ADMINISTRATOR procedure are i n the results section. HEPARIN 10A LEVEL Routine 07/13/2012 6:51 AM Resu lts for this DATA BASE ADMINISTRATOR procedure are i n the results section. HEPARIN 10A LEVEL STAT 07/13/2012 4:18 AM Resu lts for this DATA BASE ADMINISTRATOR procedure are i n the results section. BASIC METABOLIC PANEL Routine 07/13/2012 4:18 AM Results for this DATA BASE ADMINISTRATOR procedure are i n the results section. CT CHEST PULMONARY STAT 07/12/2012 8:57 PM Res ults for this EMBOLISM W CONTRAST DATA BASE ADMINISTRATOR procedur e are in the results section. ISTAT CREATININE POCT Routine 07/12/2012 7:52 PM Results for this DATA BASE ADMINISTRATOR procedure are i n the results section. HCG QUALITATIVE URINE STAT 07/12/2012 7:26 PM Results for this POCT DATA BASE ADMINISTRATOR procedure are i n the results section. INR AND PTT PANEL Routine 07/12/2012 7:23 PM DATA BASE ADMINISTRATOR CBC WITH PLATELETS & STAT 07/12/2012 7:23 PM R esults for this DIFFERENTIAL DATA BASE ADMINISTRATOR procedure are i n the results section. TROPONIN I STAT 07/12/2012 7:23 PM Results f or this DATA BASE ADMINISTRATOR procedure are i n the results section. INR Routine 07/12/2012 7:23 PM Results f or this DATA BASE ADMINISTRATOR procedure are i n the results section. PARTIAL THROMBOPLASTIN Routine 07/12/2012 7:23 PM Results for this TIME DATA BASE ADMINISTRATOR procedure are i n the results section. BASIC METABOLIC PANEL STAT 07/12/2012 7:23 PM Results for this DATA BASE ADMINISTRATOR procedure are i n the results section. EKG 12-LEAD, TRACING STAT 07/12/2012 6:55 PM R esults for this ONLY DATA BASE ADMINISTRATOR procedure are i n the results section. HIM ECG SCAN Routine 07/12/2012 6:55 PM DATA BASE ADMINISTRATOR documented in this encounter Results US Venous lower extremity bilat (07/14/2012 1:27 PM DATA BASE ADMINISTRATOR) Anatomical Region Laterality Modality Vascular, Thigh, Leg Other Specimen (Source) Anatomical Collection Method Collection Time Re ceived Time Location / / Volume Laterality 07/14/2012 1:27 PM DATA BASE ADMINISTRATOR Impressions 07/14/2012 4:36 PM DATA BASE ADMINISTRATOR Impression: 1. Color Doppler ultrasound of both lowe r extremities with no evidence of deep venous thrombosis. KRYSTAL ALVAREZ Narrative 07/14/2012 4:36 PM DATA BASE ADMINISTRATOR Examination is known to have a pulmonary [...] Heparin Xa (10a) Level (07/14/2012 6:06 AM DATA BASE ADMINISTRATOR) P athologist Signature Heparin 10A 0.70 IU/mL [facility] LABS Comment: Therapeutic Range: ?? UFH: [...] specimen 07/14/2012 6:06 AM 012 6:14 (specimen) DATA BASE ADMINISTRATOR AM DATA BASE ADMINISTRATOR Karel Tran MD LAB - BLOOD ORDERABLES Performing Organization Address City/[facility] Code Phon e Number [address] LABS (ABNORMAL) INR (07/14/2012 6:06 AM DATA BASE ADMINISTRATOR) P athologist Signature INR 1.49 (H) 0.86 - 1.14 [facility] LABS Specimen Anatomical Collection Method Collection Time Receive d Time (Source) Location / / Volume Laterality Blood specimen 07/14/2012 6:06 AM 012 6:13 (specimen) DATA BASE ADMINISTRATOR AM DATA BASE ADMINISTRATOR Karel Tran MD LAB - BLOOD ORDERABLES Performing Organization Address City/[facility] Phon e Number [address] LABS Basic metabolic panel (07/14/2012 6:06 AM DATA BASE ADMINISTRATOR) P athologist Signature Sodium 140 133 - 144 [facility] mmol/L [place] [facility] Potassium 4.2 3.4 - 5.3 [facility] mmol/L [place] [facility] Chloride 108 94 - 109 [facility] mmol/L [place] [facility] Carbon Dioxide 24 20 - 32 [facility] mmol/L [place] [facility] Anion Gap 8 6 - 17 [facility] mmol/L [place] [facility] Glucose 95 60 - 99 [facility] mg/dL [facility] LABS Urea Nitrogen 8 5 - 24 [facility] mg/dL [place] [facility] Creatinine 0.61 0.52 - [facility] 1.04 mg/dL [facility]AMPUS LABS GFR Estimate >90 >60 [facility] mL/min/1.7 [facility]AMP[facility] LABS m2 GFR Estimate If >90 >60 [facility] Black mL/min/1.7 [facility]S m2 Calcium 8.6 8.5 - 10.4 [facility] mg/dL [facility] LABS Specimen Anatomical Collection Method Collection Time Receive d Time (Source) Location / / Volume Laterality Blood specimen 07/14/2012 6:06 AM 012 6:13 (specimen) DATA BASE ADMINISTRATOR AM DATA BASE ADMINISTRATOR Macho Holland MD LAB - BLOOD ORDERABLES Performing Organization Address City/State/ZIP Code Phon e Number [facility] [address] [place], [place] [id number] [place] [address] LABS CBC with platelets differential (07/14/2012 6:06 AM DATA BASE ADMINISTRATOR) Pathtrinity health gist Method Time Signature WBC 7.0 4.0 - [facility] 11.0 [facility] 10e9/L [place] [facility] RBC Count 4.21 3.8 - 5.2 [facility] 10e12/L [facility] LABS Hemoglobin 12.5 11.7 - [facility] 15.7 g/dL [facility] LABS Hematocrit 37.6 35.0 - [facility] 47.0 % [facility] LABS MCV 89 78 - 100 [facility] MCH 29.7 26.5 - [facility] 33.0 pg [facility] LABS MCHC 33.2 31.5 - [facility] 36.5 g/dL [facility] LABS RDW 12.4 10.0 - [facility] 15.0 % [facility] LABS Platelet Count 237 150 - 450 [facility] 10e9/L [facility] LABS Diff Method Automated [facility] Method [facility] LABS % Neutrophils 48.4 40 - 75 % [facility] LABS % Lymphocytes 39.9 20 - 48 % [facility] LABS % Monocytes 9.3 0 - 12 % [facility] LABS % Eosinophils 2.0 0 - 6 % [facility] LABS % Basophils 0.3 0 - 2 % [facility] LABS % Immature 0.1 0 - 0.4 % [facility] Granulocytes [facility] LABS Absolute 3.4 1.6 - 8.3 [facility] Neutrophil 10e9/L [facility] LABS Absolute 2.8 0.8 - 5.3 [facility] Lymphocytes 10e9/L [facility] LABS Absolute 0.7 0.0 - 1.3 [facility] Monocytes 10e9/L [facility] LABS Absolute 0.1 0.0 - 0.7 [facility] Eosinophils 10e9/L [facility] LABS Absolute 0.0 0.0 - 0.2 [facility] Basophils 10e9/L [facility] LABS Abs Immature 0.0 0 - 0.03 [facility] Granulocytes 10e9/L [facility] LABS Specimen Anatomical Collection Method Collection Time Receive d Time (Source) Location / / Volume Laterality Blood specimen 07/14/2012 6:06 AM 012 6:13 (specimen) DATA BASE ADMINISTRATOR AM DATA BASE ADMINISTRATOR Karel Tran MD LAB - BLOOD ORDERABLES Performing Organization Address City/[facility]/ZIP Code Phon e Number [phone] [place] [address] LABS (ABNORMAL) Glucose by meter (07/13/2012 5:38 PM DATA BASE ADMINISTRATOR) P athologist Signature Glucose 113 (H) 60 - 99 POINT OF CARE mg/dL TEST, GLUCOSE Specimen Anatomical Collection Method Collection Time Receive d Time (Source) Location / / Volume Laterality 07/13/2012 5:38 PM 2 3:31 DATA BASE ADMINISTRATOR AM DATA BASE ADMINISTRATOR Milo Nelson MD LAB - BEAKER POCT Performing Organization Address City/[facility]/ZIP Code Phon e Number [facility] POINT OF CARE TEST, GLUCOSE POINT OF CARE TEST, GLUCOSE Heparin 10a Level (07/13/2012 1:28 PM DATA BASE ADMINISTRATOR) P athologist Signature Heparin 10A 0.69 IU/mL [facility] LABS Comment: Therapeutic Range: ?? UFH: [...] specimen 07/13/2012 1:28 PM 012 1:35 (specimen) DATA BASE ADMINISTRATOR PM DATA BASE ADMINISTRATOR Macho Holland MD LAB - BLOOD ORDERABLES Performing Organization Address [facility] Phon e Number [facility] [address] LABS Heparin Xa (10a) Level (07/13/2012 6:51 AM DATA BASE ADMINISTRATOR) P athologist Signature Heparin 10A 0.62 IU/mL [facility] LABS Comment: Therapeutic Range: ?? UFH: [...] specimen 07/13/2012 6:51 AM 012 6:53 (specimen) DATA BASE ADMINISTRATOR AM DATA BASE ADMINISTRATOR Karel Tran MD LAB - BLOOD ORDERABLES Performing Organization Address [facility] [facility] Phon e Number [facility] [address] LABS (ABNORMAL) Basic metabolic panel (07/13/2012 4:18 AM DATA BASE ADMINISTRATOR) Analysis Performed At Patho logist Time Signature Sodium 138 133 - 144 [facility] mmol/L [facility] LABS Potassium 3.7 3.4 - 5.3 [facility] mmol/L [facility] LABS Chloride 106 94 - 109 [facility] mmol/L [facility] LABS Carbon Dioxide 24 20 - 32 [facility] mmol/L [facility] LABS Anion Gap 9 6 - 17 [facility] mmol/L [facility] LABS Glucose 116 (H) 60 - 99 [facility] mg/dL [facility] LABS Urea Nitrogen 7 5 - 24 [facility] mg/dL [facility] LABS Creatinine 0.55 0.52 - [facility] 1.04 mg/dL [facility] LABS GFR Estimate >90 >60 [facility] mL/min/1.7 [place] m2 [place] LABS GFR Estimate If >90 >60 [facility] Black mL/min/1.7 [place] m2 [place] LABS Calcium 8.7 8.5 - 10.4 [facility] mg/dL [facility] LABS Specimen Anatomical Collection Method Collection Time Receive d Time (Source) Location / / Volume Laterality Blood specimen 07/13/2012 4:18 AM 012 4:19 (specimen) DATA BASE ADMINISTRATOR AM DATA BASE ADMINISTRATOR Karel Tran MD LAB - BLOOD ORDERABLES Performing Organization Address City/State/ZIP Code Phon e Number [facility] [address] LABS Heparin Xa (10a) Level (07/13/2012 4:18 AM DATA BASE ADMINISTRATOR) P athologist Signature Heparin 10A 0.97 IU/mL [facility] LABS Comment: Therapeutic Range: ?? UFH: [...] 07/13/2012 4:18 AM 11/28/2 012 4:19 (specimen) DATA BASE ADMINISTRATOR AM DATA BASE ADMINISTRATOR Karel Tran MD LAB - BLOOD ORDERABLES Performing Organization Address City/State/ZIP Code Phon e Number [facility] [address] [place] [address] [facility] LABS Chest CT, IV contrast only - PE protocol (07/12/2012 8:57 PM DATA BASE ADMINISTRATOR) Anatomical Region Laterality Modality Chest, SUBRAD CT BODY, UMP CT CHEST Comp uted Tomography Specimen (Source) Anatomical Collection Method Collection Time Re ceived Time Location / / Volume Laterality 07/12/2012 8:57 PM DATA BASE ADMINISTRATOR Impressions 07/12/2012 10:07 PM DATA BASE ADMINISTRATOR IMPRESSION: 1. Multiple bilateral lower lobe segment [...] with the findings. Narrative 07/12/2012 10:07 PM DATA BASE ADMINISTRATOR Examination: Chest CT Pulmonary Angiogra m, 07/12/2012 [...] CT ORDERABLES Creatinine POCT (07/12/2012 7:52 PM DATA BASE ADMINISTRATOR) P athologist Signature Creatinine 0.6 0.52 - POINT [facility] CARE 1.04 mg/dL TEST, HANDHELD METER GFR Estimate >90 >60 POINT [facility] CARE mL/min/1.7 TEST, HANDHELD m2 METER GFR Estimate If >90 >60 [facility] Black mL/min/1.7 TEST, HANDHELD m2 METER Specimen Anatomical Collection Method Collection Time Receive d Time (Source) Location / / Volume Laterality 07/12/2012 7:52 PM 2 8:05 DATA BASE ADMINISTRATOR PM DATA BASE ADMINISTRATOR Mak Roach MD [facility] POCT Performing Organization Address City/State/ZIP Code Phon e Number [facility] POINT OF CARE TEST, HANDHELD METER POINT OF CARE TEST, HANDHELD METER hCG qual urine POCT (07/12/2012 7:26 PM DATA BASE ADMINISTRATOR) athologist Signature HCG Qual Urine neg neg Internal QC OK Yes Specimen (Source) Anatomical Collection Method Collection Time Re ceived Time Location / / Volume Laterality Urine specimen 07/12/2012 7:26 PM (specimen) DATA BASE ADMINISTRATOR Caio Valdes MD LAB - ENTER/EDIT POCT Partial thromboplastin time (07/12/2012 7:23 PM DATA BASE ADMINISTRATOR) athologist Signature PTT 27 22 - 37 sec [facility] LABS Specimen Anatomical Collection Method Collection Time Receive d Time (Source) Location / / Volume Laterality 07/12/2012 7:23 PM 2 7:32 DATA BASE ADMINISTRATOR PM DATA BASE ADMINISTRATOR Char Tovar MD LAB - BLOOD ORDERABLES Performing Organization Address City/[facility]/ZIP Code Phon e Number [address] LABS INR (07/12/2012 7:23 PM DATA BASE ADMINISTRATOR) athologist Signature INR 0.99 0.86 - 1.14 [facility] LABS Specimen Anatomical Collection Method Collection Time Receive d Time (Source) Location / / Volume Laterality 07/12/2012 7:23 PM 2 7:32 DATA BASE ADMINISTRATOR PM DATA BASE ADMINISTRATOR Char Tovar MD LAB - BLOOD ORDERABLES Performing Organization Address City/State/ZIP Code Phon e Number [facility] [address] LABS Troponin I (07/12/2012 7:23 PM DATA BASE ADMINISTRATOR) athologist Signature Troponin I ES <0.012 0.000 - [facility] 0.034 ug/L [place] LABS Specimen Anatomical Collection Method Collection Time Receive d Time (Source) Location / / Volume Laterality Blood specimen 07/12/2012 7:23 PM 012 7:32 (specimen) DATA BASE ADMINISTRATOR PM DATA BASE ADMINISTRATOR Char Tovar MD LAB - BLOOD ORDERABLES Performing Organization Address City/[facility]/ZIP Code Phon e Number [facility] [address] [place] [address] [facility] LABS (ABNORMAL) CBC with platelets differential (07/12/2012 7:23 PM DATA BASE ADMINISTRATOR) [facility] gist Method Time Signature WBC 13.1 (H) 4.0 - [facility] 11.0 [facility] 10e9/L CAMPUS LABS RBC Count 4.59 3.8 - 5.2 [facility] 10e12/L [facility] LABS Hemoglobin 13.9 11.7 - [facility] 15.7 g/dL [facility] LABS Hematocrit 40.3 35.0 - [facility] 47.0 % [facility] LABS MCV 88 78 - 100 [facility] fl [facility] LABS MCH 30.3 26.5 - [facility] 33.0 pg [facility] LABS MCHC 34.5 31.5 - [facility] 36.5 g/dL [facility] LABS RDW 12.2 10.0 - [facility] 15.0 % [facility] LABS Platelet Count 257 150 - 450 [facility] 10e9/L [facility] LABS Diff Method Automated [facility] Method [facility] LABS % Neutrophils 77.2 (H) 40 - 75 % [facility] LABS % Lymphocytes 15.9 (L) 20 - 48 % [facility] LABS % Monocytes 6.0 0 - 12 % [facility] LABS % Eosinophils 0.5 0 - 6 % [facility] LABS % Basophils 0.2 0 - 2 % [facility] LABS % Immature 0.2 0 - 0.4 % [facility] Granulocytes [facility] LABS Absolute 10.1 (H) 1.6 - 8.3 [facility] Neutrophil 10e9/L [facility] LABS Absolute 2.1 0.8 - 5.3 [facility] Lymphocytes 10e9/L [facility] LABS Absolute 0.8 0.0 - 1.3 [facility] Monocytes 10e9/L [facility] LABS Absolute 0.1 0.0 - 0.7 [facility] Eosinophils 10e9/L [facility] LABS Absolute 0.0 0.0 - 0.2 [facility] Basophils 10e9/L [facility] LABS Abs Immature 0.0 0 - 0.03 [facility] Granulocytes 10e9/L [facility] LABS Specimen Anatomical Collection Method Collection Time Receive d Time (Source) Location / / Volume Laterality Blood specimen 07/12/2012 7:23 PM 012 7:32 (specimen) DATA BASE ADMINISTRATOR PM DATA BASE ADMINISTRATOR Char Tovar MD LAB - BLOOD ORDERABLES Performing Organization Address City/[facility]/ZIP Code Phon e Number [facility] [address] [place] [address] [facility] LABS Basic metabolic panel (07/12/2012 7:23 PM DATA BASE ADMINISTRATOR) P athologist Signature Sodium 142 133 - 144 [facility] mmol/L CAMPUS LABS Potassium 4.1 3.4 - 5.3 [facility] mmol/L CAMPUS LABS Chloride 107 94 - 109 [facility] mmol/L CAMPUS LABS Carbon Dioxide 21 20 - 32 [facility] mmol/L CAMPUS LABS Anion Gap 14 6 - 17 [facility] mmol/L CAMPUS LABS Glucose 87 60 - 99 [facility] mg/dL CAMPUS LABS Urea Nitrogen 8 5 - 24 [facility] mg/dL CAMPUS LABS Creatinine 0.62 0.52 - [facility] 1.04 mg/dL CAMPUS LABS GFR Estimate >90 >60 [facility] mL/min/1.7 CAMPUS LABS m2 GFR Estimate If >90 >60 [facility] Black mL/min/1.7 CAMPUS LABS m2 Calcium 9.2 8.5 - 10.4 [facility] mg/dL CAMPUS LABS Specimen Anatomical Collection Method Collection Time Receive d Time (Source) Location / / Volume Laterality Blood specimen 07/12/2012 7:23 PM 012 7:32 (specimen) DATA BASE ADMINISTRATOR PM DATA BASE ADMINISTRATOR Char Tovar MD LAB - BLOOD ORDERABLES Performing Organization Address City/[facility]/ZIP [facility] Phon e Number [facility] [address] [place] [address] [facility] LABS EKG 12 lead (07/12/2012 6:55 PM DATA BASE ADMINISTRATOR) Component Value Ref Range Test Analysis Performed Pathologis t Method Time At Signature Ventricular Rate 106 BPM RADIOLOGY RESULTS Atrial Rate 106 BPM RADIOLOGY RESULTS TN Interval 144 ms RADIOLOGY RESULTS QRS Duration 74 ms RADIOLOGY RESULTS QT 330 ms RADIOLOGY RESULTS QTc 438 ms RADIOLOGY RESULTS P [place] 51 degrees RADIOLOGY RESULTS R AXIS 21 degrees RADIOLOGY RESULTS T [place] 17 degrees RADIOLOGY RESULTS Interpretation Sinus tachycardia RADIOLO GY ECG RESULTS Interpretation Otherwise normal RADIOLOG Y ECG ECG RESULTS Interpretation Unconfirmed report - interpr etation of this ECG is computer generated - see RADIOLOGY ECG medical record for final interpretation RESULTS Specimen (Source) Anatomical Collection Method Collection Time Re ceived Time Location / / Volume Laterality 07/12/2012 6:55 PM DATA BASE ADMINISTRATOR Char Tovar MD ECG ORDERABLES Performing Organization Address City/State/ZIP Code Phon e Number RADIOLOGY RESULTS EKG - HIM ECG Scan (07/12/2012 6:55 PM DATA BASE ADMINISTRATOR) Narrative This result has an attachment that [...] (TYLENOL) tablet 650 Given 07/13/2012 5:39 AM DATA BASE ADMINISTRATOR 650 mg mg 650 mg, Oral, EVERY 4 HOURS PRN, mild pain, Starting on Wed07/13/12 at 0405, Alternate ibuprofen (if ordered) with acetaminophen Maximum acetaminophen dose from all sources = 75 mg/kg/day not to exceed 4 grams/day. diphenhydrAMINE (BENADRYL) capsule 25 mg Given 07/13/2012 10:04 PM DATA BASE ADMINISTRATOR 25 mg 25 mg, Oral, EVERY 6 HOURS PRN, itching, Starting on Wed07/13/12 at 2120 enoxaparin (LOVENOX) injection 100 mg Given 07/14/2012 11:19 AM DATA BASE ADMINISTRATOR 100 mg 100 mg, Subcutaneous, EVERY 12 HOURS, First dose on Wed07/13/12 at 1145 Given 07/13/2012 11:48 PM DATA BASE ADMINISTRATOR 100 mg Given 07/13/2012 12:52 PM DATA BASE ADMINISTRATOR 100 mg HEParin Loading dose for HIGH INTENSITY Given 07/12/20 12 10:48 PM DATA BASE ADMINISTRATOR 8,000 Units PROTOCOL * Give BEFORE starting HEParin Drip 8,000 Units (80 Units/kg ? 99.8 kg), Intravenous, ONCE, On Wed07/12/12 at 2126, For 1 dose, Max Dose: 4000 units if patient getting TNK and > 70kg. High Intensity Heparin Protocol heparin drip 25,000 Rate/Dose Change 07/13/2012 5:34 AM 1,700 Units/h r 17 mL/hr units in D5W 250 mL DATA BASE ADMINISTRATOR Intravenous, CONTINUOUS, Starting on Wed07/12/12 at 7, [...] hill rn Rate/Dose Verify 07/13/2012 12:54 AM DATA BASE ADMINISTRATOR Units/hr mL/hr New Bag 07/12/2012 10:49 PM DATA BASE ADMINISTRATOR 1,800 Units/hr 18 mL/hr heparin drip 25,000 units in New Bag 07/13/2012 12:24 PM 1,700 Units/hr 17 mL/hr D5W 250 mL DATA BASE ADMINISTRATOR Intravenous, CONTINUOUS, Starting on Wed07/13/12 at 1230, [...] units/hr ., Initial Set-up verified by: suman hill, elie HYDROmorphone (DILAUDID) 0.2 MG/0.2 ML i njection Starting on Wed07/13/12 at 0800, For 1 dose, PETER HERNANDEZ: cabinet override HYDROmorphone (DILAUDID) 0.2 MG/0.2 ML Given 07/13/2012 12:35 PM DATA BASE ADMINISTRATOR 0.2 mg injection Starting on Wed07/13/12 at 1233, For 1 dose, PETER HERNANDEZ: cabinet override HYDROmorphone (DILAUDID) injection 0.2-0 .4 mg Given 07/13/2012 8:03 AM DATA BASE ADMINISTRATOR 0.4 mg 0.2-0.4 mg, Intravenous, EVERY 4 HOURS PRN, moderate to severe pain, Starting on Wed07/13/12 at 0405 HYDROmorphone (DILAUDID) injection 0.4 m g Given 07/13/2012 4:01 AM DATA BASE ADMINISTRATOR 0.4 mg 0.4 mg, Intravenous, EVERY 15 MIN PRN, Starting on Wed07/12/12 at 1834, Until Wed07/13/12 at 0411, moderate to severe pain Given 07/13/2012 1:57 AM DATA BASE ADMINISTRATOR 0.4 mg Given 07/13/2012 12:58 AM DATA BASE ADMINISTRATOR 0.4 mg HYDROmorphone (DILAUDID) tablet 2 mg Given 07/14/2012 10:04 AM DATA BASE ADMINISTRATOR 2 mg 2 mg, Oral, EVERY 4 HOURS PRN, severe pain (7-10), Starting on Wed07/13/12 at 1635 Given 07/14/2012 6:07 AM DATA BASE ADMINISTRATOR 2 mg Given 07/14/2012 12:47 AM DATA BASE ADMINISTRATOR 2 mg ibuprofen (ADVIL,MOTRIN) tablet 600 mg Given 07/13/2012 3:39 PM DATA BASE ADMINISTRATOR 600 mg 600 mg, Oral, EVERY 6 HOURS PRN, moderate pain (4-6), Starting on Wed07/13/12 at 1117, Give 1.5 tablets (600mg) Q6hrs prn iopamidol (ISOVUE-370) 76% solution 100 mL Given 07/12/2012 8:48 PM DATA BASE ADMINISTRATOR 70 mLs 100 mL, Intravenous, ONCE, On Wed07/12/12 at 2049, For 1 dose LORazepam (ATIVAN) tablet 0.5 mg Given 07/13/2012 12:23 PM DATA BASE ADMINISTRATOR 0.5 mg 0.5 mg, Oral, 3 TIMES DAILY PRN, anxiety, Starting on Wed07/13/12 at 0401 ondansetron (ZOFRAN) injection 8 mg Given 07/12/2012 11:16 PM DATA BASE ADMINISTRATOR 8 mg 8 mg, Intravenous, ONCE, Administer over 2-5 Minutes, On Wed07/12/12 at 2307, For 1 dose oxyCODONE (ROXICODONE) immediate release tablet Given 07/13/2012 4:07 PM DATA BASE ADMINISTRATOR 5 mg 5 mg 5 mg, Oral, EVERY 4 HOURS PRN, moderate to severe pain, Starting on Wed07/13/12 at 1116 Given 07/13/2012 12:03 PM DATA BASE ADMINISTRATOR 5 mg oxyCODONE-acetaminophen (PERCOCET) 5-325 MG Given 06/17 3:10 PM DATA BASE ADMINISTRATOR 1 tablet per tablet 1-2 tablet 1-2 [...] constipation treatment protocol. Given 07/13/2012 8:45 PM DATA BASE ADMINISTRATOR 2 tablets sodium chloride (PF) 0.9% PF flush 20 mL Given 07/12/2012 8:48 PM DATA BASE ADMINISTRATOR 20 mLs 20 mL, Intravenous, ONCE, On Wed07/12/12 at 2048, For 1 dose warfarin (COUMADIN) tablet 5 mg Given 07/14/2012 6:07 PM DATA BASE ADMINISTRATOR 5 mg 5 mg, Oral, ONCE AT 6PM, On Wed07/14/12 at 1800, For 1 dose, Dispose as HW-P warfarin (COUMADIN) tablet 7.5 mg Given 07/13/2012 6:20 AM DATA BASE ADMINISTRATOR 7.5 mg 7.5 mg, Oral, ONCE, On Wed07/13/12 at 0530, For 1 dose, Dispose as HW-P warfarin (COUMADIN) tablet 7.5 mg Given 07/13/2012 5:55 PM DATA BASE ADMINISTRATOR 7.5 mg 7.5 mg, Oral, ONCE AT 6PM, On Wed07/13/12 at 1800, For 1 dose, Ok to give in addition to 7.5 mg given at 0620 this morning. Dispose as HW-P documented in this encounter Active and Recently Administered Medications Times are shown in DATA BASE ADMINISTRATOR. Scheduled Medication Order 07/12/2012 07/13/2012 07/14/2012 enoxaparin (LOVENOX) injection 100 mg 12 52 (Given - Provider: Peter Hernandez, ELIE)2348 (Given - Provider: Angela Arroyo, ELIE) 1119 (Given - Provider: Meghna Cao, ELIE) 100 mg, Subcutaneous, EVERY 12 HOURS, First dose on Wed07/13/12 at 1145 HEParin Loading dose for HIGH INTENSITY PROTOCOL * Give BEFORE starting HEParin Drip (COMPLETED) 2247 (Given - Provider: Suman Hill, ELIE) 8,000 Units (80 Units/kg ? 99.8 kg), [...] 2 048 (Given - Provider: Nena Esqueda [facility]) 20 mL, Intravenous, ONCE, On Wed07/12/12 at 2049, For 1 dose warfarin (COUMADIN) tablet 5 mg 1807 (Given - Provider: Ethel Amezcua RN) 5 mg, Oral, ONCE AT 6PM, On Wed07/14/12 at 1800, For 1 dose, Di spose as HW-P warfarin (COUMADIN) tablet 7.5 mg (COMPLETED) 06 (Given - Provider: April Villagomez RN) 7.5 mg, Oral, ONCE, On Wed07/13/12 at 0530, For 1 dose, Dispose as HW-P warfarin (COUMADIN) tablet 7.5 mg (COMPLETED) 175 (Given - Provider: Ethel Amezcua RN) 7.5 [...] units/hr ., Initial Set-up verified by: suman hill, elie heparin drip 25,000 units in D5W 250 mL () 1224 (New Bag - Provider: Peter Hernandez RN)1608 (Stopped - Provider: Ethel Amezcua RN) Intravenous, [...] Hill RN) 0058 (Given - Provider: April Villagomez, ELIE)0157 (Given - Provider: April Villagomez RN)0401 (Given - Provider: April Villagomez RN) 0.4 mg, Intravenous, EVERY 15 MIN PRN, S tarting on Wed07/12/12 at 1834, Until Wed07/13/12 at 0411, moderate to severe pain HYDROmorphone (DILAUDID) tablet 2 mg (CANCELED) 1645 (Given - Provider: Ethel Amezcua RN)2045 (Given - Provider: Ethel Amezcua RN) 0047 (Given - Provider: Angela Arroyo, ELIE)0607 (Given - Provider: Angela Arroyo RN)1004 (Given - Provider: Meghna Cao RN) 2 mg, Oral, EVERY 4 HOURS PRN, severe pain, Starting on 06/17 at 1635 ibuprofen (ADVIL,MOTRIN) tablet 600 mg [...] override documented in this encounter Care Teams Electric Sign Assembler Relationship Specialty Start Date End Date Shari Mann PCP - General 07/12/12 10/07/14 documented as of this encounter
--- OUTSIDE RECORDS SUMMARY | 2022-07-16 10:49 | XMS_ITS | Encounter Summary ---
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
--- OUTSIDE RECORDS SUMMARY | 2022-07-16 10:49 | XMS_ITS | Encounter Summary ---
:1985 Author Organization [place] Address [address] [place] [address] Care Team Providers Name Role Phone Mann, Shari Primary Care Provider BgRashida APRN [employer] Primary Care Provider [phone] BgRashida cornejo APRN [employer] Unavailable [phone] BgRashida cornejo APRN [employer] Unavailable [phone] Concha Balderrama [facility] Primary Care Provider Encounter Details Date Type Department Care Team Description 04/06/2011 Records - [facility] Paramjit Balderrama [address] [place] [address] [address] [place] [address] [facility] [place] [address] Social History Tobacco Use Types [...] 1:20 PM 1 1:20 CDT PM CDT [facility] Y - 04/06/2011 1:20 PM CDT [id number] ? Slide(s) 1 Specimen Type: ??SUREPATH SCREEN [...] CT(ASCP) ? (elec tronically signed) Performed at: ??[facility] [address] [place] [address] Date Received: 08/22/11 ?Date Compl eted: 04/09/11 ??ABN Complete: Concha [facility] - BEAKER AP Performing Organization Address City/State/ZIP Code Phon e Number [place] [address] [address] [facility] Treponema Abs w Reflex to RPR and Titer (04/06/2011 9:32 AM CDT) Patholo gist Method Time Signature Syphilis Non-reacti (Nonreacti 04/06/2011 [facility] Screen [place] ve ve) 9:32 AM CDT [facility] Specimen Anatomical Collection Method Collection Time Receive d Time (Source) Location / / Volume Laterality 04/06/2011 9:32 AM 1 9:32 CDT AM CDT Concha Balderrama CNM LAB - BLOOD ORDERABLES Performing Organization Address City/[facility]/ZIP Code Phon e Number [place] [address] [phone] [address] [facility] Hepatitis B surface antigen (04/06/2011 9:32 AM CDT) Analysis Performed At Patho logist Time Signature Hepatitis B Negative (Negative) 04/06/2011 [facility] Surface 9:32 AM CDT [facility]ORATORY Specimen Anatomical Collection Method Collection Time Receive d Time (Source) Location / / Volume Laterality 04/06/2011 9:32 AM 1 9:32 CDT AM CDT Concha Balderrama CNM LAB - BLOOD ORDERABLES Performing Organization Address City/[facility]/ZIP Code Phon e Number [facility] [address] [phone] [address] [facility] HIV Antigen Antibody Combo (04/06/2011 9:32 AM CDT) Analysis Performed At Patho logist Time Signature HIV Antigen Negative 04/06/2011 [facility] Antibody Combo 9:32 AM CDT [facility] Specimen Anatomical Collection Method Collection Time Receive d Time (Source) Location / / Volume Laterality 04/06/2011 9:32 AM 1 9:32 CDT AM CDT Narrative [facility] - 04/06/2011 9:32 AM CDT Effective 06/12/10, methodology is HIV 1/2 Antigen/Antibody Combination. ? Prior to 06/12/10, methodology wa s HIV 1/2 Antibody only. Concha Balderrama CNM LAB - BLOOD ORDERABLES Performing Organization Address City/State/[facility] Phon e Number [facility] [place] [address] [id number] [place] [phone] [place] [address] documented in this encounter Visit Diagnoses Not on filedocumented in this encounter Care Teams Breast Buffer Relationship Specialty Start Date End Date Shari Mann PCP - General 07/12/12 10/07/14 Rashida Pederson APRN PCP - General Nurse Practitioner 10/08/14 [employer] [address] [place] [address] Rashida Pederson APRN PCP - Assigned PCP 10/14/14 10/18/18 [employer] [address] [place] [address] Concha Balderrama CNM PCP - General 04/06/11 07/11/[address] [address] Rashida Pederson, ZIYAD Assigned PCP 10/14/14 1 09/26/20 [employer] [address] [place] [address] documented as of this encounter
--- OUTSIDE RECORDS SUMMARY | 2022-07-16 10:49 | XMS_ITS | Encounter Summary ---
:1985 Author Organization [place] Address [address] [place] [address] Care Team Providers Name Role Phone Shari Mann Primary Care Provider Encounter Details Date Type Department Care Team Description 07/20/2012 Orders Only [facility] Betito Vincent PA-C PE (pulmonary [address] [facility] embo lism) (H) Laboratory [address] [place] [phone] (Wo rk) Social History Tobacco Use [...] 1:10 PM PE (pulmonary Results for this AUDITOR INTERNAL embolism) (H) procedure are in the results section . documented in this encounter Results (ABNORMAL) INR (07/20/2012 1:10 PM AUDITOR INTERNAL) athologist Signature INR 1.93 (H) 0.86 - 1.14 [facility] Specimen Anatomical Collection Method Collection Time Receive d Time (Source) Location / / Volume Laterality Blood specimen 07/20/2012 1:10 PM 012 1:11 (specimen) AUDITOR INTERNAL PM AUDITOR INTERNAL Patricia Moe APRN [employer] POLISHER LAB - BLOOD ORDERABLES Performing Organization Address City/State/ZIP Code Phon e Number [facility] [address] [place], [place] [id number] [place] [address] LABS documented in this encounter Visit Diagnoses Diagnosis PE (pulmonary embolism) Other pulmonary embolism and infarction documented in this encounter Care Teams Tax Technician Relationship Specialty Start Date End Date Shari Mann PCP - General 07/12/12 10/07/14 documented as of this encounter
--- OUTSIDE RECORDS SUMMARY | 2022-07-16 10:49 | XMS_ITS | Encounter Summary ---
:1985 Author Organization [facility] Address [address] [place] [address] Care Team Providers Name Role Phone Shari Mann Primary Care Provider Encounter Details Date Type Department Care Team Description 07/12/2012 Medical Correspondence [facility] [place] AUTH FORM, Health Info Mgmt MD Umer 07/12/2012 Srvcs [address] [facility] 2450 [facility] [address] [place] [id number] Social History Tobacco Use Types Packs/Day Years [...] on filedocumented in this encounter Care Teams Reservationist Relationship Specialty Start Date End Date Shari Mann PCP - General 07/12/12 10/07/14 documented as of this encounter
[2022-07-16 14:16] LABS: Free T4 Free Thyroxine* 1.09 ng/dL (0.70-1.85)
== END 2022-07-16 10:42 | disposition home or self-care (01) ==
PROVIDERS: PCP Advanced Practice Midwife; Visit Provider Advanced Practice Midwife
DX: E03.9 Hypothyroidism, unspecified (principal)
CPT/HCPCS: 82947; 82950; 84439; 84443

== ENCOUNTER 2022-11-16 07:44 | Outpatient (CLI) | payer BC, SELFPAY | END 2022-11-16 07:45 | disposition home or self-care (01) | LOC: NFLDREF 15:10 | PROVIDERS: PCP Advanced Practice Midwife; Referring Provider Advanced Practice Midwife; Visit Provider Advanced Practice Midwife | DX: E03.9 Hypothyroidism, unspecified (principal) | CPT/HCPCS: 84439; 84443 ==

== ENCOUNTER 2022-12-15 07:42 | Outpatient (CLI) | payer BC, SELFPAY | END 2022-12-15 07:43 | disposition home or self-care (01) | PROVIDERS: PCP Advanced Practice Midwife; Referring Provider Advanced Practice Midwife; Visit Provider Advanced Practice Midwife | DX: E03.9 Hypothyroidism, unspecified (principal) | CPT/HCPCS: 84443 ==

== ENCOUNTER 2023-02-04 13:30 | Outpatient (RCR) | payer BC, SELFPAY | END 2023-06-04 23:59 | disposition home or self-care (01) | PROVIDERS: PCP Advanced Practice Midwife; Visit Provider Advanced Practice Midwife | DX: Z39.2 Encounter for routine postpartum follow-up (principal); N81.89 Other female genital prolapse; R53.1 Weakness; R39.15 Urgency of urination; R27.8 Other lack of coordination; Z51.89 Encounter for other specified aftercare | CPT/HCPCS: 97110; 97112; 97140; 97162 ==

== ENCOUNTER 2023-07-29 08:45 | Outpatient (CLI) | payer BC, SELFPAY ==
[2023-07-29 15:32] LABS: Chlamydia DNA Amplified* NOT DETECTED (No Detected); GC DNA Amplified* NOT DETECTED (No Detected)
== END 2023-07-29 08:46 | disposition home or self-care (01) ==
PROVIDERS: PCP Advanced Practice Midwife; Visit Provider Physician Assistant Medical
DX: Z00.00 Encounter for general adult medical examination without abnormal findings (principal); E03.9 Hypothyroidism, unspecified; E66.9 Obesity, unspecified; Z13.0 Encounter for screening for diseases of the blood and blood-forming organs and certain disorders involving the immune mechanism; Z11.3 Encounter for screening for infections with a predominantly sexual mode of transmission; Z13.1 Encounter for screening for diabetes mellitus; Z13.6 Encounter for screening for cardiovascular disorders
CPT/HCPCS: 80053; 80061; 84443; 87491; 87591

== ENCOUNTER 2023-11-13 01:24 | Emergency (ER) | payer BC, SELFPAY ==
[2023-11-13 01:33] VITALS: BP 154/95; PULSE 96; RESP 18; TEMP 36.4; O2SAT 97; BMI 44.8
--- NOTE | 2023-11-13 01:37 | ED.GENADULT ---
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 She has known history of asthma but does not have an inhaler currently. She has had no recent illnesses. No recent sick exposures. No recent allergy in exposures. She has otherwise been feeling fine. Her cough is nonproductive and she has had no fevers chills night sweats or shortness of breath. Related Data Home Medications Medication Instructions Recorded Confirmed Domperidone PO 07/29/23 Previous Rx's Medication Instructions Recorded triamcinolone acetonide 0.1 % 1 applic topical BID #15 grams 07/29/23 topical cream levothyroxine 125 mcg tablet 125 mcg PO QDAY #90 tabs 08/23/23 albuterol sulfate 90 mcg/actuation 2 puff inhalation QID #8.5 grams 11/13/23 aerosol inhaler (ProAir HFA) Allergies Allergy/AdvReac Type Severity Reaction Status Date / Time bupropion AdvReac Intermediate Seizure Verified 11/13/23 01:35 Conjugated estrogen AdvReac Intermediate Blood Uncoded 07/29/23 08:14 clots from oral control pills Review of Systems Status of ROS: Reports: 10 or more systems reviewed and unremarkable except as noted in History and below PFSH PFS Medical History Hx of pulmonary embolus (~2011) ?Z86.711 - Personal history of pulmonary embolism (ICD-10) Normal spontaneous vaginal delivery ?O80 - Encounter for full-term uncomplicated delivery (ICD-10) ADHD ?F90.9 - Attention-deficit hyperactivity disorder, unspecified type (ICD-10) Anxiety and depression ?F41.9 - Anxiety disorder, unspecified (ICD-10) ?F32.A - Depression, unspecified (ICD-10) History of seizure ?Z87.898 - Personal history of other specified conditions (ICD-10) Gestational diabetes ?O24.419 - Gestational diabetes mellitus in , unspecified control (ICD-10) Surgical History [place] teeth removed ?K08.409 - Partial loss of teeth, unspecified cause, unspecified class (ICD-10) History of appendectomy ?Z90.49 - Acquired absence of other specified parts of digestive tract (ICD-10) Family History Mother Alcohol dependence Anxiety Maternal Grandfather Pancreatic cancer Family/Other Bipolar 1 disorder Father Esophageal cancer Substance use disorder Paternal Grandmother Lung cancer Social History (Updated 07/29/23 @ 08:35 by Temitope Pelayo PA-C) Narrative: Ann Carranza. 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 Are you following a diet prescribed by a doctor: Yes (GDM diet) Are you following a special diet: No Highest level of school completed/degree received: Bachelor's degree Physical activity type: walking Smoking Status: Former smoker What tobacco products do you use: cigarettes Smoking quit date/years: <= 15 years ago Do you use any of these nicotine containing products: None Second hand tobacco smoke exposure: No How often do you have a drink containing alcohol: monthly or less AUDIT-C Alcohol total score: 1 Non-prescribed substance use: denies use Caffeine: Yes (under 200mg per day) Little interest or pleasure in doing things: not at all Feeling down, depressed, or hopeless: more than half the days service: No Exam Narrative: Exam Narrative: EXAM GENERAL: Patient appears comfortable and well. EYES: No scleral icterus. ENT: Tympanic membranes and oropharynx normal. THYROID: no thyroid nodules or thyromegaly. LYMPH: No supraclavicular or cervical lymphadenopathy. SKIN: Visible skin seen during exam normal or with benign process only. EXT: No dependent lower extremity pedal edema. HEART: Regular rate and rhythm with no murmurs, rubs, or gallops. LUNGS: Minor expiratory wheezes noted. ABD: Soft, non tender, non distended. PSYCH: Good eye contact, speech is not pressured. Const: Vital Signs, click to edit/add: Vital Signs - 24 hr 11/13/23 01:33 Temperature 97.5 F L Pulse Rate [Pulse Oximeter] 96 Respiratory Rate 18 Blood Pressure [Ri ght Upper Arm] 154/95 H Pulse Oximetry 97 Oxygen Delivery Me thod Room Air Course Course ED Course: Patient seen and examined. Albuterol nebulizer treatment given. Vital Signs Vital signs: Initial Vital Signs Temperature 97.5 F L 11/13/23 01:33 Temperature Source Temporal Artery Scan 11/13/23 01:33 Pulse Rate 96 11/13/23 01:33 Pulse Rhythm Regular 11/13/23 01:33 Pulse Strength 3+ Normal 11/13/23 01:33 Respiratory Rate 18 11/13/23 01:33 Blood Pressure 154/95 H 11/13/23 01:33 Blood Pressure Mean 114 H 11/13/23 01:33 Blood Pressure Position Sitting 11/13/23 01:33 Pulse Oximetry 97 11/13/23 01:33 Oxygen Delivery Method Room Air 11/13/23 01:33 Vital Signs Temperature 97.5 F L 11/13/23 01:33 Pulse Rate 96 11/13/23 01:33 Respiratory Rate 18 11/13/23 01:33 Blood Pressure 154/95 H 11/13/23 01:33 Pulse Oximetry 97 11/13/23 01:33 Oxygen Delivery Method Room Air 11/13/23 01:33 Temperature 97.5 F L 11/13/23 01:33 Pulse Rate 96 11/13/23 01:33 Respiratory Rate 18 11/13/23 01:33 Blood Pressure 154/95 H 11/13/23 01:33 Pulse Oximetry 97 11/13/23 01:33 Oxygen Delivery Method Room Air 11/13/23 01:33 Medications Administered Medications: Discontinued Medications Generic Name Dose Route Start Last Admin Trade Name Freq PRN Reason Stop Dose Admin Albuterol 2.5 mg 11/13/23 01:36 11/13/23 01:40 Albuterol Sulfate 2.5 Mg/3 Ml Vial.Neb NEB 11/13/23 01:37 2.5 mg ONCE ONE Administration Medical Decision Making MDM Narrative Medical decision making narrative: Patient is a 38-year-old woman with history of asthma who does not have her inhaler. I did give her an albuterol nebulized treatment and I did send a albuterol inhaler to her pharmacy. I recommend close outpatient follow-up. Differential diagnosis includes but not limited to asthma pneumonia CHF viral infection. Discharge Plan Discharge Clinical Impression: Asthma Patient Disposition: Home, Self-Care Condition: Stable Instructions: Asthma (ED) Additional Instructions: Albuterol as directed Follow-up with your doctor as needed. Prescriptions: New albuterol sulfate [ProAir HFA] 90 mcg/actuation HFA aerosol inhaler 2 puff inhalation QID Qty: 8.5 2RF No Action Domperidone PO Patient Comments: Patient takes for . triamcinolone acetonide 0.1 % cream 1 applic topical BID Qty: 15 0RF Rx Instructions: twice daily for 7 days levothyroxine 125 mcg tablet 125 mcg PO QDAY Qty: 90 3RF Follow Up/Referrals: Malina Donald CNM [Primary Care Provider] - Stand Alone Forms: Vacation View Info Instructions
[2023-11-13] MEDS: ALBUTEROL SULFATE 2.5 MG/3 ML VIAL.NEB NEB (01:40)
== END 2023-11-13 01:49 | disposition home or self-care (01) ==
LOC: ED 01:48
PROVIDERS: Emergency Provider Internal Medicine; PCP Advanced Practice Midwife
DX: J45.909 Unspecified asthma, uncomplicated (principal)
CPT/HCPCS: 94640; 99283

== ENCOUNTER 2024-07-06 09:29 | Outpatient (CLI) | payer BC, SELFPAY ==
--- OUTSIDE RECORDS SUMMARY | 2024-07-06 09:31 | XMS_ITS | Clinical Summary ---
Author Organization [facility] Address [place], [place] [address] Care Team Providers Care Frame Operator Name Role Phone Fatou Bravo Primary Care Provider Unknown, Doctor Unavailable Unavailable Allergies Active Allergy Reactions Criticality Noted Date Comments Estrogens Other - Describe In Comment Field High 04/24/2013 Had pulmonary embolism Estrogens *Unknown 12/02/2021 Blood clot Bupropion Seizures 01/22/2008 Bupropion Seizures High 12/02/2021 Medications Medication Sig Dispensed Refills Start Date End Date Status LORazepam (ATIVAN) 0.5 mg Tab Take 1 tablet by mouth 3 times daily if needed for Anxiety. 45 tablet 0 04/24/2013 Active ascorbic acid, vitamin C, (VITAMIN C) 1,000 mg tablet Daily Active cholecalciferol, Vitamin D3, 2,000 unit tablet Daily Active cyanocobalamin, vitamin B-12, 250 mcg lozg Active hydrOXYzine pamoate (VISTARIL) 50 mg capsule as needed Active levothyroxine (SYNTHROID) 112 mcg tablet Take 112 mcg by mouth once daily. 11/14/2021 Active ondansetron (ZOFRAN ODT) 8 mg disintegrating tablet DISSOLVE 1 TABLET ON THE TONGUE TWICE DAILY FOR 15 DAYS NEEDED 11/14/2021 Active vit no.124/iron/folic ( VITAMIN ORAL) Take by mouth. Active Active Problems Problem Noted Date Diagnosed Date [facility] Supervision of high-risk 2 Overview (12/02/2021): [facility] CONSULTATION ON 12/02/21 --Virtual Visit REASON FOR CONSULT: risks and management TODAY'S APPOINTMENT: MD Consultation (& L2US scheduled 01/21/22) PRIMARY DIAGNOSIS: 36 y.o. 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 Hx seizure on Wellbutrin at age 18 LAST GROWTH: Next: L2US at [facility] on 01/21/22 11/13/21: 10w4d LMP c/w 1st trimester US REFERRING PHYSICIAN/PHONE/LAST UPDATE: [phone] Primary MD approves scheduling of recommended ultrasounds/testing: Yes SPECIALISTS/CONSULTS: Include: Specialty MD Clinic Name Phone# [place] and ADDED TO PATIENT CARE TEAM No CARE COORDINATION: GENETICS: none PROCEDURES: PERTINENT LABS: A1C = 5.5 on 11/13/21 PERTINENT MEDS: Vistaril, Vit B-12, Vit C, Vit D, PNV Preferred delivery location: PLAN OF CARE: Personal history of pulmonary embolism 2 Overview (2012): 07/12/12 Surveillance of previously prescribed contracept leila pill 03/21/2008 Overview (03/21/2008): Sprintec started: 03/21/08 Poisoning by unspecified drug or medicinal subst ance(977.9) 01/22/2008 Maternal morbid obesity in second trimester, ant epartum Hypothyroidism affecting in second tri mester Immunizations Name Administration Dates Next Due Human Papilloma Virus Vaccine 03/21/2008 Td (Age >=7 Years) 08/16/1998 Tdap 11/03/2010 Family History Medical History Relation Name Comments Addiction problem Father Alcohol/Drug Father sober x 20 year s No Known Problems Half-Brother 1 No Known [...] Used Date Smoking Tobacco: Former Cigarettes 0.5 18 2 - 2017 Smokeless Tobacco: Never Tobacco Cessation:Ready to Q uit: Yes; Counseling Given: Yes Comments:quit smoking on Wednesday Alcohol Use Standard Drinks/Week Comments Not Currently 0 (1 standard drink = 0.6 oz pur e alcohol) 2-5 drinks per week Sex and Gender Information Value Date Recorded Sex Assigned at Not on file Gender Identity Not on file Sexual Orientation Not on file Obstetrics History Para Term AB IAB SAB Ectopic Multiple Livin g Live Births 2 1 1 0 0 0 0 0 Date Outcome GA Total Labor Labor/2nd/3rd Weight Sex Type Anes PTL Tara A1 A5 Name Clin 020 Term 41w 1d 28h 00m 3.6 kg (7 lb 15 oz) M VAGINAL ENDY Epidu ral,I V Meds Delivery Location:[facility] Comments:was on Loveno x, pushed 3 hours, OP Last Filed Vital Signs Vital Sign Reading Time Taken Comments Blood Pressure 118/80 04/24/2013 1:34 PM CDT Pulse 60 04/24/2013 1:34 PM CDT Temperature 36.8 C (98.2 F) 04/24/2013 1:34 PM CDT Respiratory Rate 20 10/18/2011 10:14 AM TOWEL INSPECTOR Oxygen Saturation 97% 04/24/2013 1:34 PM CDT [...] age 18+ 2005 Hepatitis C screening for ag e 18-79 2005 Tetanus booster 11/03/2020 11/03/2010, 08/16/1998 COVID-19 vaccine series ( season) 2024 12/31/2021, 05/14/2021 Influenza for age 9-49 04/16/2024 Pap test for age 21-65 07/29/2026 , 07/29/2023, 03/21/2008 Tdap Completed 11/03/2010 Pneumococcal series for age 6-64 Aged Out No longer eligible b ased on patient's age to complete this topic Procedures Procedure Name Priority Date/Time Associated Diagnosis Comments HPV HIGH RISK Routine 07/29/2023 9:15 AM TOWEL INSPECTOR from Last 3 Months or Most Recently Relevant to Health Maintenance Results * HPV HIGH RISK (07/29/2023 9:15 AM TOWEL INSPECTOR) TYPE 16 Negative Negative 08/02/2023 3:20 PM TOWEL INSPECTOR [facility] TYPE 18 Negative Negative 08/02/2023 3:20 PM TOWEL INSPECTOR [facility] OTHER HIGH RISK TYPES Negative Negative 08/02/2023 3:20 PM TOWEL INSPECTOR [facility] Other (Cervical/Vagina l) 07/29/2023 9:15 AM TOWEL INSPECTOR 07/29/2023 4:58 PM TOWEL INSPECTOR Narrative [facility] - 08/02/2023 3:20 PM TOWEL INSPECTOR HPV types 16, 18, 31, 33, 35, 39, 45, 51, 52, 56, 58, 59, 66 and 68 DNA were undetectable or below the pre-set threshold. Methodology: Shay Donnie 4800 HPV Test Temitope Pelayo PA-C MICROBIOLOGY [facility] [address] [place] [address], from Last 3 Months or Most Recently Relevant to Health Maintenance Advance Directives * Full Code (Latest Code Status on File) Date Activated Date Inactivated Comments 01/22/2008 7:00 PM 01/24/2008 1:53 PM Care Teams Frame Operator Relationship Specialty Start Date End Date Fatou Bravo PA [address] [place] [address] PCP - General Emergency Medicine 11/18/21 Unknown, Doctor . 11/18/21
--- OUTSIDE RECORDS SUMMARY | 2024-07-06 09:32 | XMS_ITS | Encounter Summary ---
Author Organization [facility] Address [address] [place] [address] Care Team Providers Care Vegetable Specker Name Role Phone Shari Mann Primary Care Provider Unavailabl e BgRashida APRN CLEANING HANDYMAN Primary Care Provi anna Unavailable BgRashida APRN CLEANING HANDYMAN Unavailable Un available BgRashida APRN CLEANING HANDYMAN Unavailable Un available Paty Lewis CNM Unavailable [phone] Reason for Visit * Reason Onset Date Comments Refill Request 04/25/2014 Encounter Details Date Type Department Care Team (Late st Contact Info) Description 04/25/2014 MyC Refill [facility] [address] [employer] [facility] [address] [place] [phone] Fatou Randhawa APRN CNM Refill Request Social History Tobacco Use Types Packs/Day Years Used Date Smoking Tobacco: Former Cigarettes 0.5 5 1 09/19/2006 - 07/19/2012 Smokeless Tobacco: Never Alcohol Use Standard Drinks/Week Comments Yes 0 (1 standard drink = 0.6 oz pur e alcohol) 1-4d 1x/wk Comments No Sex and Gender Information Value Date Recorded Sex Assigned at Not on file Legal Sex Female 5:58 PM HYPERCIL CORE TRANSFORMER ASSEMBLER Gender Identity Not on file Sexual Orientation Not on file 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 Not on file Not on file Not on file documented as of this encounter Plan of Treatment Not on file documented as of this encounter Visit Diagnoses Not on filedocumented in this encounter Care Teams Vegetable Specker Relationship Specialty Start Date End Date Johnathan Shari PCP - General 07/12/12 10/07/14 Rashida Pederson APRN CNP PCP - General Nurse Practitioner 10/08/14 07/22/23 Rashida Pederson APRN CLEANING HANDYMAN PCP - Assigned PCP 10/14/14 10/18/18 Rashida Pederson APRN CNP Assigned PCP 10/14/14 07/26/21 Paty Lewis CNM [address] [place] [place] [id number] Assigned OBGYN Provider 02/28/21 documented as of this encounter
--- OUTSIDE RECORDS SUMMARY | 2024-07-06 09:32 | XMS_ITS | Encounter Summary ---
Author Organization [facility] Address [address] [place] [address] Care Team Providers Care Epoxy Specialist Name Role Phone Rashida Pederson APRN MANAGER MARKETING COMMUNICATIONS Primary Care Provi anna Unavailable Rashida Pederson APRN MANAGER MARKETING COMMUNICATIONS Unavailable Un available Paty Lewis [facility] Unavailable [phone] Reason for Visit * Reason Comments Consult Encounter Details Date Type Department Care Team (Late st Contact Info) Description 05/02/2020 Ambulatory - Health[address] [place] [phone] Mihaela Burns CNM [address] [place] [phone] Other disorders of Social History Tobacco Use Types Packs/Day Years Used Date Smoking Tobacco: Former Cigarettes 0.5 10 1 09/19/2001 - 07/19/2012 Smokeless Tobacco: Never Alcohol Use Standard Drinks/Week Comments Yes 0 (1 standard drink = 0.6 oz pur e alcohol) 1-4d 1x/wk PHQ-2 Answer Date Recorded PHQ-2 Score 1 07/26/2018 Comments No Sex and Gender Information Value Date Recorded Sex Assigned at Not on file Legal Sex Female 5:58 PM EVENTS INTERN Gender Identity Not on file Sexual Orientation Not on file 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 Six day old infant gaining weight rapidly on pumped breastmilk with some formula supplementation: Over birthweight 2. Difficulty with establishing and sustaining [...] into the breast, with his chin snugged clos antoinette into the 2. To continue to feed baby on cue, 8-12 times each day. Encouraged Logan to attempt at least half of feedings. Feed on one side until baby finishes swallowing. Once swallowing slows, use breast compression to encourage more swallowing, but once there is no more active swallowing, and baby is either sleeping, coming off the breast, or just nibbling, it is OK to use a finger to takebaby off the breast and move to the other breast. Do the same on the other side. Offer both breastsat each feeding. It is more important to [...] when the supply of pumped milk runs out.You can give this after feedings, or distributed throughout the day according to his feeding cues. Used paced feeding when giving bottles. Given video link to demonstration of paced feeding. 6. Continue pumping as you have been to have extra milk to give to Yves and to keep a good milk supply. 7. See pediatric provider as planned today, and in 5 days. Subjective: Logan is here today because of latch concerns. Was given nipple shield in hospital, which she doesn't particularly like. On day of return home from hospital, baby was very restless and didnot pass urine for about 16 hours, so Logan began pumping and supplementing with formula. Would liketo try nursing without nursing without shield now: has tried latching without it, has been successful once or twice at home, but baby does not sustain latch well without it. Baby can latch with the shield, but Logan feels that he doesn't transfer much milk when using it. Is now exclusively pumping,but would like to be directly . Relevant History: Prolonged pushing phase Breast Surgery: none Goals: Previous Experience: first baby Infant's name: Yves Neumann's bday: [birth year] Gestational age: 41w1d 's weight: 7# 15.3 oz Mode of delivery: vaginal 's MD: BALA Guy, [facility]. Logan gives her permission for today's note to be forwarded to Mr. Kearney. NGOZI signed and [...] tone, behavior is alert and active, respirations arenormal, skin is normal, hydration is normal, jaw is normal size and alignment, palate is normal, frenulum is normal, baby can lateralize tongue, has adequate tongue lift, and tongue can protrude pastbottom gum line. Baby thrush: none Jaundice: none Feeding assessment: Baby had difficulty latching to the breast. Made multiple attempts in cross cradle and football holds, and baby was not able to sustain latch more than one or two sucks. Mother also had difficulty with positioning. After multiple attempts, applied nipple shield, but baby was also not able to latch with nipple shield in place. Moved to sidelying position, and after several moreattempts, did latch and maintain suck to transfer milk without use of shield. Alignment: The baby was flex relaxed. Baby's head was aligned with its trunk. Baby did face mother.Baby was in football, cross cradle and sidelying positions today. Areolar Grasp: Baby was able to open mouth wide after multiple attempts. Baby's lips were not pursed. Baby's lips did flange outward. Tongue was visible just barely over bottom lip. Baby had completeseal. Areolar Compression: Baby made rhythmic motion. There were no clicking or smacking sounds. There was no severe nipple discomfort. Nipples appeared rounded after [...] (2,000 unit) capsule, Take 1,000 Units by mouth 2 (two) times a day., Disp: , Rfl: ??? docusate sodium (COLACE) 100 MG capsule, Take 1 capsule (100 mg total) by mouth daily., Disp: ,Rfl: 0 ??? enoxaparin ANTICOAGULANT (LOVENOX) 40 mg/0.4 mL syringe, Inject 0.4 mL (40 mg total) under the skin daily., Disp: 45 Syringe, Rfl: 0 ??? ibuprofen (ADVIL,MOTRIN) 200 MG tablet, Take 4 tablets (800 mg total) by mouth every 8 (eight) hours., Disp: , Rfl: ??? prenat.vits,ant,uaz-uces-edhek ( VITAMIN) Tab, Take 2 tablets by [...] IBCLC documented in this encounter Miscellaneous Notes * Patient Instructions - HE - Mihaela Burns [...] sleeping, coming off the breast, or just nibbling,it is OK to use a finger to take baby off the breast and move to the other breast. Do the same on the other side. Offer both breasts at each feeding. It is more important to watch the baby than the clock! 3. Use good positioning for deep latch, with baby held close to body and baby's head/shoulders/hipsin good alignment. Use a pillow to help [...] per day in supplementation (about 2 oz), usingyour breastmilk as your first choice and formula when the supply of pumped milk runs out. You can give this after feedings, or distributed throughout the day according to his feeding cues. Used pacedfeeding when giving bottles. 6. Continue pumping as you have been to have extra milk to give to Yves and to keep a good milk supply. 7. See pediatric provider as planned today, and in 5 days. For a good video showing sidelying : Https://www.youtube.com/watch?v=VDJ4nztTsuQ For an excellent video on paced bottle feeding: http://www.lowmilONTRAPORTupply.dqy-qebrd-gavypoc/ Good resources: www.SecondHome Https://www.[employer].com/blog/ The Baby Book: Dr. Chakraborty and Shruti Wilder The Womanly Art of by [facility] For help with using baby carriers: Https://babywearingtwincities.org/ [...] nipple pain. You can find it here: www.[employer]. Click on expecting a term baby. I think you'll find it really helpful! The whole site is great, actually, but start with that. I also love the video on attachment, under ABC's. Two times that are often great for pumping are either first thing in the morning when your breasts are most full (because many women find they are particularly full at this time), or pumping from onebreast if your baby has nursed primarily on the other at that feeding. If you pump in the morning, you could do it either right after feeding, because baby may not completely empty you, or between fee dings--if, say, there is a feeding at 6 am and then baby goes back to sleep until like 9, you couldpump at 7 or 8. I also really like [...] significantly or almost stops. For most women this is around 15 minutes or so (both breasts together, or 30 min, if you are doing them separately). You can increase the amount of milk you obtain [...] the amount of milk you get. There isan excellent video on this technique here, made by Dominique Leigh MD, manager technical and s pecialist: https://[facility]/newborns/professional-education//maximizin k-zara-wqprmzdejg.html You don't need to worry a lot about making sure there is still enough left in the breasts for thenext feeding, because our breasts are always making [...] Noted Time PHQ-9 Depression Total Score: 7 07/27/20 18 7:15 AM EVENTS INTERN documented as of this encounter Care Teams Epoxy Specialist Relationship Specialty Start Date End Date Rashida Pederson APRN MANAGER MARKETING COMMUNICATIONS PCP - General Nurse Practitioner 10/08/14 07/22/23 Rashida Pederson APRN MANAGER MARKETING COMMUNICATIONS Assigned PCP 10/14/14 07/26/21 Paty Lewis CNM [address] [place] [id number] Assigned OBGYN Provider 02/28/21 documented as of this encounter
--- OUTSIDE RECORDS SUMMARY | 2024-07-06 09:32 | XMS_ITS | Encounter Summary ---
Author Organization [facility] Address [address] [place] [address] Care Team Providers Care Coal Unloader Name Role Phone Shari Mann Primary Care Provider Unavailabl e BgRashida APRN POLYMER SCIENTIST Primary Care Provi anna Unavailable BgRashida APRN POLYMER SCIENTIST Unavailable Un available BgRashida APRN POLYMER SCIENTIST Unavailable Un available Paty Lewis CNM Unavailable [phone] Encounter Details Date Type Department Care Team (Late st Contact Info) Description 08/20/2014 MyC Medical Advice M [facility] Women's [address] 3[address] Floor,[address] [place] [facility] [address] [place] [phone] Fatou Randhawa APRN CNM Social History Tobacco Use Types Packs/Day Years Used Date Smoking Tobacco: Former Cigarettes 0.5 5 1 09/19/2006 - 07/19/2012 Smokeless Tobacco: Never Alcohol Use Standard Drinks/Week Comments Yes 0 (1 standard drink = 0.6 oz pur e alcohol) 1-4d 1x/wk Comments No Sex and Gender Information Value Date Recorded Sex Assigned at Not on file Legal Sex Female 5:58 PM CHEESE MAKER Gender Identity Not on file Sexual Orientation Not on file 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 Not on file Not on file documented as of this encounter Plan of Treatment Not on file documented as of this encounter Visit Diagnoses Not on filedocumented in this encounter Care Teams Coal Unloader Relationship Specialty Start Date End Date Shari Mann PCP - General 07/12/12 10/07/14 Rashida Pederson APRN CNP PCP - General Nurse Practitioner 10/08/14 07/22/23 Rashida Pederson APRN POLYMER SCIENTIST PCP - Assigned PCP 10/14/14 10/18/18 Rashida Pederson APRN CNP Assigned PCP 10/14/14 07/26/21 [facility] Lewis [facility] [place] [address] Assigned OBGYN Provider 02/28/21 documented as of this encounter
--- OUTSIDE RECORDS SUMMARY | 2024-07-06 09:32 | XMS_ITS | Encounter Summary ---
Author Organization [facility] Address [address] [place] [address] Care Team Providers Care Stucco Mason Name Role Phone Rashida Pederson APRN READERS' ADVISORY SERVICE LIBRARIAN Primary Care Provi anna Unavailable Rashida Pederson APRN READERS' ADVISORY SERVICE LIBRARIAN Unavailable Un available Paty Lewis [facility] Unavailable [phone] Reason for Visit * Reason Comments Consult Encounter Details Date Type Department Care Team (Late st Contact Info) Description 05/23/2020 Ambulatory - Health[address] [place] [phone] Mihaela Burns CNM [address] [place] [address] [phone] Other disorders of ; nipple pain Social History Tobacco Use Types Packs/Day Years Used Date Smoking Tobacco: Former Cigarettes 0.5 10 1 09/19/2001 - 07/19/2012 Smokeless Tobacco: Never Alcohol Use Standard Drinks/Week Comments Yes 0 (1 standard drink = 0.6 oz pur e alcohol) 1-4d 1x/wk PHQ-2 Answer Date Recorded PHQ-2 Score 0 05/13/2020 Comments No Sex and Gender Information Value Date Recorded Sex Assigned at Not on file Legal Sex Female 5:58 PM RECORDS ADMINISTRATOR Gender Identity Not on file Sexual Orientation Not on file 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 [...] Frenulum remains within normal limits: Score of /25, with >13 indicating need for intervention 5. Mother now [...] choice and formula if the supply of pumpedmilk runs out. You can give this after feedings, or distributed throughout the day according to hisfeeding cues. 2. Discussed can base pumping on how Yves is eating at the breast: If he nurses well, then you candecrease your pumping accordingly. If he is not nursing well, then pump after that feeding. 3. Consider continuing with bodywork if Yves is tense and continuing to have difficulty with latch. Reassured that improvements in latch and ability to transfer milk can continue as baby grows and becomes more proficient with coordination and muscle use. Acknowledged continued difficulty of pumping /supplementing/nursing. Logan voices that she is feeling good [...] has increased. She does still have painful latch,however, and has made an appointment with pediatric dentist to be evaluated for posterior tongue tie. She limits her direct nursing to about 3-4 times/day because of painful latch--feels that Yves continues to latch shallowly. Relevant History: Prolonged pushing phase Breast Surgery: none Goals: exclusive direct Previous Experience: first baby Infant's name: Yves Infant's bday: [birth year] Gestational age: 41w1d 's weight: 7# 15.3 oz Mode of delivery: vaginal 's MD: BALA Guy, [facility]. Logan gives her permission for today's [...] is alert and active, respirations are normal, skinis normal, hydration is normal, jaw is normal size and alignment, palate is normal, frenulum is normal, baby can lateralize tongue, has adequate tongue lift, and tongue can protrude just slightly past bottom gum line. Tongue is held in somewhat bunched position and does not extend well, but there is no restrictive frenulum seen. Noted baby to have a significantly recessed chin and also notable body tension: Holds body in slightly arched position. Repeated Ashley Lingual Frenulum Protocol Assessment today: History Score 3/8 Anatomo-Functional Evaluation 0/12, indicating no interference of the frenulum with tongue movements Suck Evaluation 3/5 Total Score 6/25, indicating no interference of the lingual frenulum with tongue movements: Releaseof the frenulum is not indicated by this [...] trunk. Baby did face mother.Baby was in cradle position today. Areolar Grasp: Baby was able to open mouth wide after several attempts. Baby's lips were not pursed. Baby's lips did flange outward. Tongue was not easily visible over bottom lip. Baby had complete seal. Areolar Compression: Baby made rhythmic motion. There were no clicking or smacking sounds. There was some mild nipple discomfort (2-3/10). Nipples appeared rounded [...] by mouth daily., Disp: ,Rfl: 0 ??? prenat.vits,ant,nfe-ljmx-tbeiz ( VITAMIN) Tab, Take 2 tablets by [...] 4. Discussion of tongue tie: Reviewed Ashley boggs in detail and explained findings. Explained Yves's result: 02/07. Know that there is very little solid evidence regarding treatment of tongue tie, beyond that which shows that nipple pain can be relieved by frenotomy in cases of classic anteriortongue tie. Evidence is lacking on whether frenotomy [...] Total Score: 7 07/27/20 18 7:15 AM RECORDS ADMINISTRATOR documented as of this encounter Care Teams Stucco Mason Relationship Specialty Start Date End Date Rashida Pederson APRN CNP PCP - General Nurse Practitioner 10/08/14 07/22/23 Rashida Pederson APRN READERS' ADVISORY SERVICE LIBRARIAN Assigned PCP 10/14/14 07/26/21 [facility] [place] [place] [address] Assigned OBGYN Provider 02/28/21 documented as of this encounter
--- OUTSIDE RECORDS SUMMARY | 2024-07-06 09:32 | XMS_ITS | Encounter Summary ---
Author Organization [facility] Address [address] [place] [address] Care Team Providers Care Glass Cleaner Name Role Phone Shari Mann Primary Care Provider Unavailabl e BgRashida APRN ETCHER ENAMELING Primary Care Provi anna Unavailable BgRashida APRN ETCHER ENAMELING Unavailable Un available BgRashida APRN ETCHER ENAMELING Unavailable Un available Paty Lewis CNM Unavailable [phone] Reason for Visit * Reason Onset Date Comments Refill Request 04/17/2014 Encounter Details Date Type Department Care Team (Late st Contact Info) Description 04/17/2014 MyC Refill M [facility] Women's [address]rd [address] [place] [facility] [address] [place] [phone] Fatou Randhawa APRN CNM Refill Request Social [...] on file Legal Sex Female 5:58 PM CHILD DAYCARE WORKER Gender Identity Not on file Sexual Orientation Not on file 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 Not on file Not on file documented as of this encounter Miscellaneous Notes * Telephone Encounter - Mary Gutierrez RN - 04/17/2014 12:00 PM CDT Message from HTP: Original authorizing provider: ABDOUL Calvillodayana Arredondo would like a refill of the following medications: LORazepam (ATIVAN) 0.5 MG tablet [Fatou Randhawa CNM] Preferred pharmacy: [facility] [address] [place] [address] Comment: documented in this encounter Plan of Treatment Not on file documented as of this encounter Visit Diagnoses Diagnosis Panic attacks Panic disorder without agoraphobia documented in this encounter Care Teams Glass Cleaner Relationship Specialty Start Date End Date Shari Mann PCP - General 07/12/12 10/07/14 Rashida Pederson APRN ETCHER ENAMELING PCP - General Nurse Practitioner 10/08/14 07/22/23 Rashida Pederson APRN CNP PCP - Assigned PCP 10/14/14 10/18/18 Rashida Pederson APRN ETCHER ENAMELING Assigned PCP 10/14/14 07/26/21 Paty Lewis CNM [address] [place] [id number] Assigned OBGYN Provider 02/28/21 documented as of this encounter
--- OUTSIDE RECORDS SUMMARY | 2024-07-06 09:32 | XMS_ITS | Encounter Summary ---
Author Organization [facility] Address [address] [place] [address] Care Team Providers Care Firer Portable Boiler Name Role Phone Rashida Pederson APRN CERTIFIED SOLID WASTE FACILITY OPERATOR Primary Care Provi anna Unavailable BgRashida APRN CERTIFIED SOLID WASTE FACILITY OPERATOR Unavailable Un available BgRashida cornejo APRN CERTIFIED SOLID WASTE FACILITY OPERATOR Unavailable Un available Paty Lewis CN Unavailable [phone] Encounter Details Date Type Department Care Team (Late st Contact Info) Description 03/09/2016 MyC Medical Advice [address] [phone] Yessenia Mcgarry, GAS LEAK INSPECTOR Social History Tobacco Use Types Packs/Day Years Used Date Smoking Tobacco: Former Cigarettes 0.5 5 1 09/19/2006 - 07/19/2012 Smokeless Tobacco: Never Alcohol Use Standard Drinks/Week Comments Yes 0 (1 standard drink = 0.6 oz pur e alcohol) 1-4d 1x/wk Comments No Sex and Gender Information Value Date Recorded Sex Assigned at Not on file Legal Sex Female 5:58 PM WOOD PREPARATION SUPERVISOR Gender Identity Not on file Sexual Orientation Not on file 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 Not on file documented as of this encounter Plan of Treatment Not on file documented as of this encounter Visit Diagnoses Not on filedocumented in this encounter Additional Health Concerns Assessment Noted Time PHQ-9 Depression Total Score: 10 09/18/ 016 9:10 AM WOOD PREPARATION SUPERVISOR documented as of this encounter Care Teams Firer Portable Boiler Relationship Specialty Start Date End Date Rashida Pederson APRN CNP PCP - General Nurse Practitioner 10/08/14 07/22/23 Rashida Pederson APRN CNP PCP - Assigned PCP 10/14/14 10/18/18 Rashida Pederson APRN CNP Assigned PCP 10/14/14 07/26/21 Paty Lewis [facility]M [facility] [place] [address] Assigned OBGYN Provider 02/28/21 documented as of this encounter
--- OUTSIDE RECORDS SUMMARY | 2024-07-06 09:32 | XMS_ITS | Referral Summary ---
Author Organization [facility] Address [address] [place] [address] Care Team Providers Care Dog Sitter Name Role Phone Unavailable Primary Care Provider Unavailabl e Allergies Active Allergy Reactions Criticality Noted Date Comments Estrogens 07/22/2012 Patient had estrogen associated PE Bupropion Other (See Comments) 10/06/2014 seizure Medications cyclobenzaprine (FLEXERIL) 10 MG tabletIndicatio ns:Acute left-sided low back pain without sciatica Take 0.5-1 tablets (5-10 mg) by mouth 3 times daily as needed for muscle spasms 30 tablet 1 10/14/2017 Active hydrOXYzine (ATARAX) 50 MG tabletIndicatio ns:Anxiety Take 1 tablet (50 mg) by mouth 3 times daily as needed for anxiety 30 tablet 03/28/2019 Active Active Problems Problem Noted Date Diagnosed Date CARDIOVASCULAR SCREENING; LDL GOAL LESS THAN 160 02/07/2015 Major depression, recurrent 10/06/2014 Anxiety 10/06/2014 Panic attack 09/11/2013 Overview (09/17/2015): Patient is followed by CAR[facility] BA[facility] for ongoing prescription of anxiety medication. All refills should be approved by this provider, or covering partner. Medication(s): ativan 0.5mg tid prn panic attacks Maximum quantity per month: #30 every 6 months (only to take on a very limited basis). Clinic visit frequency required: must make a clinic appointment for refill of Ativan Controlled substance agreement on file: Yes Date(s): 09/17/2015 Pain Clinic evaluation in the past: No DIRE Total Score(s): No flowsheet data found. Last [facility] website verification: 09/17/2015 https://[facility].Advitech/ Mirena IUD (intrauterine device) in place 2012 Overview (09/11/2013): 08/07/2013: Mirena inserted under US guidance p cx dilation. Remove/replace by 08/08/18. ksl Dysmenorrhea 07/24/2013 History of pulmonary embolism 07/13/2012 Resolved Problems Problem Noted Date Diagnosed Date Resolved Date BMI 40.0-44.9, adult 08/24/2019 020 Overview (03/18/2021): bmi 40 at [facility]. BV (bacterial vaginosis) 11/09/201209/2015 Immunizations Name Administration Dates Next Due Influenza (IIV3) PF 05/14/2012 Influenza Vaccine >6 months,quad, PF 04/21/2017 TDAP (Adacel,Boostrix) 11/03/2010 Social History Tobacco Use Types Packs/Day Years Used Date Smoking Tobacco: Former Cigarettes 0.3 10 1 09/19/2001 - 07/19/2012 Smokeless Tobacco: Never Alcohol Use Standard Drinks/Week Comments Yes 2.5 (1 standard drink = 0.6 oz p ure alcohol) 1-4d 1x/wk PHQ-2 Answer Date Recorded PHQ-2 Score 0 05/13/2020 [place] Depression Scale Answer Date Recorded Last EPDS Total Score Not on file 06/11/2020 The thought of harming myself has occurred to me . 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 Not on file Not on file Last Filed Vital Signs Vital Sign Reading Time Taken Comments Blood Pressure 124/70 06/11/2020 10:48 AM CDT Pulse 86 06/11/2020 10:48 AM CDT Temperature 36.4 C (97.5 F) 04/29/2020 10:06 AM CDT Respiratory Rate 16 04/29/2020 10:06 AM CDT Oxygen Saturation 96% 05/13/2020 10:58 AM CDT Inhaled Oxygen Concentration - - Weight 113.9 kg (251 lb) 06/11/2020 10:48 AM CDT Height 163.8 cm (5' 4.5) 06/11/2020 10:48 AM CD T Body Mass Index 42.42 06/11/2020 10:48 AM CDT Plan of Treatment Not on file Advance Directives For more information, please contact: [phone] * Full Code (Latest Code Status on File) Date Activated Date Inactivated Comments 07/14/2012 4:21 PM * Full Code Date Activated Date Inactivated Comments 07/13/2012 4:06 AM 07/14/2012 4:21 PM
--- OUTSIDE RECORDS SUMMARY | 2024-07-06 09:32 | XMS_ITS | Encounter Summary ---
Author Organization [facility] Address [address] [place] [address] Care Team Providers Care Psychiatric Social Worker Supervisor Name Role Phone MannShari Primary Care Provider Unavailabl e BgRashida APRN DISTRICT RANGER Primary Care Provi anna Unavailable BgRashida APRN DISTRICT RANGER Unavailable Un available BgRashida APRN DISTRICT RANGER Unavailable Un available Paty Lewis [facility] Unavailable [phone] Encounter Details Date Type Department Care Team (Late st Contact Info) Description 03/30/2014 [facility] Medical Advice [address] [address] Ebony De Guzman, ZEFERINO Social History Tobacco Use Types Packs/Day Years Used Date Smoking Tobacco: Former Cigarettes 0.5 5 1 09/19/2006 - 07/19/2012 Smokeless Tobacco: Never Alcohol Use Standard Drinks/Week Comments Yes 0 (1 standard drink = 0.6 oz pur e alcohol) 1-4d 1x/wk Comments No Sex and Gender Information Value Date Recorded Sex Assigned at Not on file Legal Sex Female 5:58 PM RECOVERY ROOM NURSE Gender Identity Not on file Sexual Orientation Not on file 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 on file Not on file documented as of this encounter Plan of Treatment Not on file documented as of this encounter Visit Diagnoses Not on filedocumented in this encounter Care Teams Psychiatric Social Worker Supervisor Relationship Specialty Start Date End Date Shari Mann PCP - General 07/12/12 10/07/14 Rashida Pederson APRN CNP PCP - General Nurse Practitioner 10/08/14 07/22/23 Rashida Pederson APRN DISTRICT RANGER PCP - Assigned PCP 10/14/14 10/18/18 Rashida Pederson APRN DISTRICT RANGER Assigned PCP 10/14/14 07/26/21 [facility] [place] [address] Assigned OBGYN Provider 02/28/21 documented as of this encounter
--- OUTSIDE RECORDS SUMMARY | 2024-07-06 09:32 | XMS_ITS | Clinical Summary ---
Author Organization [place] Address [address] [place] [address] Care Team Providers Care Analysis Director Name Role Phone Unavailable Primary Care Provider [...] Total Score(s): No flowsheet data found. Last [facility] website verification: 09/17/2015 [email or web address] Mirena IUD (intrauterine device) in place 2012 Overview (09/11/2013): 08/07/2013: Mirena inserted under US guidance p cx dilation. Remove/replace by 08/08/18. ksl Dysmenorrhea 07/24/2013 History of pulmonary embolism 07/13/2012 Resolved Problems Problem Noted Date Diagnosed Date Resolved Date BMI 40.0-44.9, adult 08/24/2019 020 Overview (03/18/2021): bmi 40 at [facility]. BV (bacterial vaginosis) 11/09/201209/2015 Immunizations Name Administration Dates Next Due Influenza (IIV3) PF 05/14/2012 Influenza Vaccine >6 months,quad, PF 04/21/2017 TDAP (Adacel,Boostrix) 11/03/2010 Family History Medical History Relation Comments Alcohol/Drug Father biologic & adopt ed Alcoholism Father Depression Father & Mother Hyperlipidemia [...] Aunt Alive Paternal Grandfather (Age 92) nautral c auses Paternal Grandmother health hx n ot well known Paternal Uncle Alive Social History Tobacco Use Types Packs/Day Years Used Date Smoking Tobacco: Former Cigarettes 0.3 10 1 09/19/2001 - 07/19/2012 Smokeless Tobacco: Never Alcohol Use Standard Drinks/Week Comments Yes 2.5 (1 standard drink = 0.6 oz p ure alcohol) 1-4d 1x/wk PHQ-2 Answer Date Recorded PHQ-2 Score 0 05/13/2020 [place] Depression Scale Answer Date Recorded Last EPDS Total Score Not on file 06/11/2020 The thought of harming myself has occurred to me . 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
--- OUTSIDE RECORDS SUMMARY | 2024-07-06 09:32 | XMS_ITS | Encounter Summary ---
Author Organization [facility] Address [address] [place] [address] Care Team Providers Care Director Construction Services Name Role Phone Rashida Pederson APRN, CNP Primary Care Provi anna Unavailable Rashida Pederson APRN METAL CANS SUPERVISOR Unavailable Un available Rashida Pederson APRN METAL CANS SUPERVISOR Unavailable Un available Paty Lewis [facility] Unavailable [phone] Reason for Visit * Reason Onset Date Comments MyChart Communication 10/14/2018 lorazepam Encounter Details Date Type Department Care Team (Latest Contact Info) Description 10/14/2018 [facility] Medical Advice M [address] [address] Rashida Pederson APRN METAL CANS SUPERVISOR MyChart Communication (lorazepam) Social History Tobacco Use Types Packs/Day Years [...] on file Legal Sex Female 5:58 PM CUFF SETTER Gender Identity Not on file Sexual Orientation Not on file 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 SETTER documented in this encounter Plan of Treatment Not on file documented as of this encounter Visit Diagnoses Not on filedocumented in this encounter Additional Health Concerns Assessment Noted Time PHQ-9 Depression Total Score: 7 07/27/20 18 7:15 AM CUFF SETTER documented as of this encounter Care Teams Director Construction Services Relationship Specialty Start Date End Date Rashida Pederson APRN CNP PCP - General Nurse Practitioner 10/08/14 07/22/23 Rashida Pederson APRN METAL CANS SUPERVISOR PCP - Assigned PCP 10/14/14 10/18/18 Rashida Pederson APRN METAL CANS SUPERVISOR Assigned PCP 10/14/14 07/26/21 Paty Lewis CNM [facility] [place] [address] Assigned OBGYN Provider 02/28/21 documented as of this encounter
--- OUTSIDE RECORDS SUMMARY | 2024-07-06 09:32 | XMS_ITS | Encounter Summary ---
Author Organization [facility] Address [address] [place] [address] Care Team Providers Care Fingernail Technician Name Role Phone Rashida Pederson APRN AGRONOMY RESEARCH MANAGER Primary Care Provi anna Unavailable BgRashida APRN AGRONOMY RESEARCH MANAGER Unavailable Un available BgRashida cornejo APRN AGRONOMY RESEARCH MANAGER Unavailable Un available Paty Lewis CN Unavailable [phone] Encounter Details Date Type Department Care Team (Late st Contact Info) Description 01/04/2018 [facility] Medical Advice [address] [address] Yessenia Mcgarry, PLATING FOREMAN Social History Tobacco Use Types Packs/Day Years Used Date Smoking Tobacco: Former Cigarettes 0.5 10 1 09/19/2001 - 07/19/2012 Smokeless Tobacco: Never Alcohol Use Standard Drinks/Week Comments Yes 0 (1 standard drink = 0.6 oz pur e alcohol) 1-4d 1x/wk Comments No Sex and Gender Information Value Date Recorded Sex Assigned at Not on file Legal Sex Female 5:58 PM RN INTERNSHIP Gender Identity Not on file Sexual Orientation Not on file 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 Not on file documented as of this encounter Plan of Treatment Not on file documented as of this encounter Visit Diagnoses Not on filedocumented in this encounter Additional Health Concerns Assessment Noted Time PHQ-9 Depression Total Score: 3 02/02/20 18 7:12 AM CDT documented as of this encounter Care Teams Fingernail Technician Relationship Specialty Start Date End Date Rashida Pederson APRN CNP PCP - General Nurse Practitioner 10/08/14 07/22/23 Rashida Pederson APRN CNP PCP - Assigned PCP 10/14/14 10/18/18 Rashida Pederson APRN CNP Assigned PCP 10/14/14 07/26/21 [facility] [place] [address] Assigned OBGYN Provider 02/28/21 documented as of this encounter
--- OUTSIDE RECORDS SUMMARY | 2024-07-06 09:32 | XMS_ITS | Encounter Summary ---
Author Organization [facility] Address [address] [place] [address] Care Team Providers Care Fish Bin Tender Name Role Phone Shari Mann Primary Care Provider Unavailabl e BgRashida APRN MASTER COSMETOLOGIST Primary Care Provi anna Unavailable BgRashida APRN MASTER COSMETOLOGIST Unavailable Un available BgRashida APRN MASTER COSMETOLOGIST Unavailable Un available Paty Lewis CNM Unavailable [phone] Reason for Visit * Reason Onset Date Comments Refill Request 08/01/2014 Ativan Encounter Details Date Type Department Care Team (Late st Contact Info) Description 08/01/2014 MyC Refill [facility] [address] [place] [facility] [address] [place] [phone] Fatou Randhawa APRN CNM Refill Request (Ativan) Social History Tobacco Use Types Packs/Day Years Used Date Smoking Tobacco: Former Cigarettes 0.5 5 1 09/19/2006 - 07/19/2012 Smokeless Tobacco: Never Alcohol Use Standard Drinks/Week Comments Yes 0 (1 standard drink = 0.6 oz pur e alcohol) 1-4d 1x/wk Comments No Sex and Gender Information Value Date Recorded Sex Assigned at Not on file Legal Sex Female 5:58 PM HAND STEMMER Gender Identity Not on file Sexual Orientation Not on file 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 STEMMER documented in this encounter Plan of Treatment Not on file documented as of this encounter Visit Diagnoses Diagnosis Panic attacks Panic disorder without agoraphobia documented in this encounter Care Teams Fish Bin Tender Relationship Specialty Start Date End Date Shari Mann PCP - General 07/12/12 10/07/14 Rashida Pederson APRN MASTER COSMETOLOGIST PCP - General Nurse Practitioner 10/08/14 07/22/23 Rashida Pederson APRN MASTER COSMETOLOGIST PCP - Assigned PCP 10/14/14 10/18/18 Rashida Pederson APRN MASTER COSMETOLOGIST Assigned PCP 10/14/14 07/26/21 Paty Lewis CNM [facility] [place] [address] [address] Assigned OBGYN Provider 02/28/21 documented as of this encounter
--- OUTSIDE RECORDS SUMMARY | 2024-07-06 09:32 | XMS_ITS | Encounter Summary ---
Author Organization [facility] Address [address] [place] [address] Care Team Providers Care Revenue Manager Name Role Phone Shari Mann Primary Care Provider Unavailabl e BgRashida APRN WATERPROOFER HELPER Primary Care Provi anna Unavailable BgRashida APRN WATERPROOFER HELPER Unavailable Un available BgRashida APRN WATERPROOFER HELPER Unavailable Un available Paty Lewis CNM Unavailable [phone] Encounter Details Date Type Department Care Team (Late st Contact Info) Description 04/17/2014 MyC Medical Advice [facility] [address] [place] 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 Not on file Not on file documented as of this encounter Plan of Treatment Not on file documented as of this encounter Visit Diagnoses Not on filedocumented in this encounter Care Teams Revenue Manager Relationship Specialty Start Date End Date Shari Mann PCP - General 07/12/12 10/07/14 Rashida Pederson APRN CNP PCP - General Nurse Practitioner 10/08/14 07/22/23 Rashida Pederson APRN WATERPROOFER HELPER PCP - Assigned PCP 10/14/14 10/18/18 Rashida Pederson APRN CNP Assigned PCP 10/14/14 07/26/21 [facility] Lewis [facility] [place] [address] Assigned OBGYN Provider 02/28/21 documented as of this encounter
--- OUTSIDE RECORDS SUMMARY | 2024-07-06 09:32 | XMS_ITS | Encounter Summary ---
Author Organization [facility] Address [address] [place] [address] Care Team Providers Care Materials Recycler Name Role Phone Rashida Pederson APRN RIVETING MACHINE OPERATOR TAPE CONTROL Primary Care Provi anna Unavailable BgRashida APRN RIVETING MACHINE OPERATOR TAPE CONTROL Unavailable Un available BgRashida cornejo APRN RIVETING MACHINE OPERATOR TAPE CONTROL Unavailable Un available Paty Lewis CN Unavailable [phone] Encounter Details Date Type Department Care Team (Late st Contact Info) Description 12/18/2015 My[facility] Medical Advice [address] [address] Yessenia Mcgarry, ENVIRONMENTAL RESOURCE SPECIALIST Social History Tobacco Use Types Packs/Day Years Used Date Smoking Tobacco: Former Cigarettes 0.5 5 1 09/19/2006 - 07/19/2012 Smokeless Tobacco: Never Alcohol Use Standard Drinks/Week Comments Yes 0 (1 standard drink = 0.6 oz pur e alcohol) 1-4d 1x/wk Comments No Sex and Gender Information Value Date Recorded Sex Assigned at Not on file Legal Sex Female 5:58 PM CENTRAL OFFICE MAINTAINER Gender Identity Not on file Sexual Orientation Not on file 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 Not on file Not on file documented as of this encounter Plan of Treatment Not on file documented as of this encounter Visit Diagnoses Not on filedocumented in this encounter Additional Health Concerns Assessment Noted Time PHQ-9 Depression Total Score: 10 09/18/ 016 9:10 AM CENTRAL OFFICE MAINTAINER documented as of this encounter Care Teams Materials Recycler Relationship Specialty Start Date End Date Rashida Pederson APRN CNP PCP - General Nurse Practitioner 10/08/14 07/22/23 Rashida Pederson APRN CNP PCP - Assigned PCP 10/14/14 10/18/18 Rashida Pederson APRN CNP Assigned PCP 10/14/14 07/26/21 [facility] [place] [address] Assigned OBGYN Provider 02/28/21 documented as of this encounter
--- OUTSIDE RECORDS SUMMARY | 2024-07-06 09:32 | XMS_ITS | Encounter Summary ---
Author Organization [place] Address [address] [place] [address] Care Team Providers Care Pv Design Engineer Name Role Phone Rashida Pederson APRN RODEO CLOWN Primary Care Provi anna Unavailable Rashida Pederson APRN RODEO CLOWN Unavailable Un available Paty Lewis [facility] Unavailable [phone] Reason for Visit * Reason Comments Consult Encounter Details Date Type Department Care Team (Late st Contact Info) Description 05/07/2020 Ambulatory - [facility] [place] [phone] Mihaela Burns CNM [address] [place] [id number] Other disorders of Social History Tobacco Use [...] on file Legal Sex Female 5:58 PM PLASTIC SURGERY ASSISTANT Gender Identity Not on file Sexual Orientation Not on file 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 11 day old infant over birthweight primarily on breastmilk feeding, but with slowing weight gain: gain of 1.8 oz over last 5 days 2. Difficulty with establishing and sustaining latch at breast, possibly due to long pushing phase and/or recessed chin, leading to ineffective suck. Low milk transfer. 3. Mother with slightly low milk supply Plan: 1. Recommended that Logan continue to feed Yves on cue, offering the breast as many times per day as is manageable. Suggested that if he becomes very [...] in the sandwich position, compressing breast in the same angle as his mouth. If the scissors hold works well for this, then use that. Make sure hischin is snugged deeply into the breast, as [...] of delivery: vaginal 's MD: BALA Guy, [facility]. Logan gives her permission for today's note [...] Sore nipples: no EPDS: 6 Assessment of infant: 44.50% Weight for age percentile Age today: [...] and tongue can protrude pastbottom gum line. Noted baby to have a significantly recessed chin Baby thrush: none Jaundice: none Feeding assessment: Baby had difficulty latching to the breast and sustaining latch. Made multiple attempts in football holds, and baby was not able to sustain latch more than one or two sucks. Mother also had maintaining positioning comfortably. Again moved to sidelying position, and baby did bestin this position: Mother able to latch infant using scissors hold to present breast as sandwich, and did latch and maintain suck to transfer milk. Baby tends to easily slip to shallow latch and tuck in lower lip, moving to ineffective suck that does not transfer milk. Alignment: The baby was flex relaxed. Baby's head was aligned with its trunk. Baby did face mother.Baby was in football and sidelying positions today. [...] 8 (eight) hours., Disp: , Rfl: ??? prenat.vits,ant,qec-odcn-npqwy ( VITAMIN) Tab, Take 2 tablets by [...] per day as you can manage. If he does not do well with trying the latch, [...] per day in supplementation (around 2 - 2.5oz/feeding), using your breastmilk as your first choice [...] Total Score: 7 07/27/20 18 7:15 AM PLASTIC SURGERY ASSISTANT documented as of this encounter Care Teams Pv Design Engineer Relationship Specialty Start Date End Date Rashida Pederson APRN [place]DE[place] PCP - General Nurse Practitioner 10/08/14 07/22/23 Rashida Pederson APRN RODE[place] CLOWN Assigned PCP 10/14/14 07/26/21 Paty Lewis CNM [facility] [place] [address] Assigned OBGYN Provider 02/28/21 documented as of this encounter
--- OUTSIDE RECORDS SUMMARY | 2024-07-06 09:32 | XMS_ITS | Encounter Summary ---
Author Organization [facility] Address [address] [place] [address] Care Team Providers Care Resident Services Manager Name Role Phone Shari Mann Primary Care Provider Unavailabl e BgRashida APRN LOGISTICS ADMINISTRATOR Primary Care Provi anna Unavailable BgRashida APRN LOGISTICS ADMINISTRATOR Unavailable Un available BgRashida APRN LOGISTICS ADMINISTRATOR Unavailable Un available Paty Lewis [facility] Unavailable [phone] Encounter Details Date Type Department Care Team (Late st Contact Info) Description 11/25/2013 [facility] - [facility] CONVERSION Scan, Non-Provider Social History Tobacco Use Types Packs/Day Years Used Date Smoking Tobacco: Former Cigarettes 0.5 5 1 09/19/2006 - 07/19/2012 Smokeless Tobacco: Never Alcohol Use Standard Drinks/Week Comments Yes 0 (1 standard drink = 0.6 oz pure alcohol) 3-4 drinks at a time approximately 1-3 per month Comments No Sex and Gender Information Value Date Recorded Sex Assigned at Not on file Legal Sex Female 5:58 PM PLATFORM MAN Gender Identity Not on file Sexual Orientation Not on file 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 Not on file Not on file documented as of this encounter Plan of Treatment Not on file documented as of this encounter Visit Diagnoses Not on filedocumented in this encounter Care Teams Resident Services Manager Relationship Specialty Start Date End Date Shari Mann PCP - General 07/12/12 10/07/14 Rashida Pederson APRN LOGISTICS ADMINISTRATOR PCP - General Nurse Practitioner 10/08/14 07/22/23 Rashida Pederson APRN LOGISTICS ADMINISTRATOR PCP - Assigned PCP 10/14/14 10/18/18 Rashida Pederson APRN LOGISTICS ADMINISTRATOR Assigned PCP 10/14/14 07/26/21 Paty Lewis CNM [facility] [place] [address] Assigned OBGYN Provider 02/28/21 documented as of this encounter
== END 2024-07-06 09:30 | disposition home or self-care (01) ==
PROVIDERS: PCP Physician Assistant Medical; Visit Provider Physician Assistant Medical
DX: Z00.00 Encounter for general adult medical examination without abnormal findings (principal); E03.9 Hypothyroidism, unspecified; E66.9 Obesity, unspecified; F41.9 Anxiety disorder, unspecified
CPT/HCPCS: 80048; 80061; 84443

== ENCOUNTER 2025-02-11 07:23 | Outpatient (CLI) | payer BC, SELFPAY ==
[2025-02-11 08:34] LABS: Appearance Urine Slightly Cloudy (Clear); Bilirubin Urine Negative (Negative); Blood Urine Negative (Negative); Color Urine Yellow (Yellow); Glucose Urine Negative (Negative); Ketones Urine Negative (Negative); Protein Urine Negative (Negative); Specific Gravity Urine 1.015 (1.000-1.030); pH Urine 5.5 (5.0-8.5)
[2025-02-11 08:35] LABS: Leukocyte Esterase Urine Negative (Negative); Nitrite Urine Negative (Negative); RBC Urine 0-2 (0-2); Squamous Epithelial Cell Urine Few (None-Few); Urobilinogen Urine 0.2 (0.2-1.0); WBC Urine 0-2 (0-5)
== END 2025-02-11 07:24 | disposition home or self-care (01) ==
PROVIDERS: PCP Physician Assistant Medical; Visit Provider Obstetrics & Gynecology
DX: R30.0 Dysuria (principal)
CPT/HCPCS: 81001; 87086

== ENCOUNTER 2025-06-28 05:38 | Outpatient (CLI) | payer BC, SELFPAY | END 2025-06-28 05:39 | disposition home or self-care (01) | LOC: NFLDREF 07-12 15:56 | PROVIDERS: PCP Physician Assistant Medical; Referring Provider Physician Assistant Medical; Visit Provider Physician Assistant Medical | DX: Z00.00 Encounter for general adult medical examination without abnormal findings (principal) | CPT/HCPCS: 80053; 80061; 83036; 84439; 84443; 85018 ==